=== PATIENT | female | born 1945 | race Caucasian/White ===

== ENCOUNTER 2022-11-06 17:53 | Emergency (ER) | payer MEDICARE, SELFPAY ==
[2022-11-06] VITALS (24 sets, daily range): BP systolic 92–164; BP diastolic 48–111; PULSE 64–178; RESP 13–33; TEMP 36.8; O2SAT 88–100; BMI 38.4
--- NOTE | 2022-11-06 18:44 | ECG_ITS ---
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
--- NOTE | 2022-11-06 19:27 | SUR.HOLD ---
patient tolerated, without complaint
[2022-11-06 19:40] LABS: Bilirubin Urine NEGATIVE (NEGATIVE); Blood Urine NEGATIVE (NEGATIVE); Clarity Urine CLEAR (CLEAR); Color Urine LT. YELLOW (YELLOW); Glucose Urine UA NEGATIVE (NEGATIVE); Ketones Urine NEGATIVE (NEGATIVE); Leukocyte Esterase Urine SMALL (NEGATIVE); Nitrite Urine NEGATIVE (NEGATIVE); Protein Urine NEGATIVE (NEG/TRACE); Urobilinogen Urine 0.2 EU/dL (0.2-1.0); pH Urine 6.5 (5.0-9.0)
[2022-11-06 19:47] LABS: Bacteria Urine SMALL #/HPF (NONE SEEN); Cast Seen? NONE SEEN #/LPF (NONE SEEN); Crystals Seen? None Seen #/HPF (None Seen); Mucus Urine NONE SEEN (NONE SEEN); Squamous Epithelial Cell Urine RARE #/LPF (NONE/RARE); Urine Culture Indicated YES; WBC Urine 20-50 #/HPF (NONE SEEN)
--- NOTE | 2022-11-06 22:02 | XR_ITS ---
[address] [address] Patient Name: NADIA COOLEY MRN: [id number] date: 1945 Sex: F Assigned Patient Location: ER Current Patient Location: ER Accession/Order Number: [id number] Exam Date: 11/06/2022 23:00 Report Date: 11/06/2022 23:34 At the request of: MAYA ANTOINE Procedure: XR chest 1V EXAMINATION: XR chest 1V HISTORY: Weakness COMPARISON: Portable chest 05/27/2022 TECHNIQUE: Portable chest FINDINGS: Study presented is mismarked. The left marker is placed on the right side of the chest. The patient does not have situs inversus. The lung parenchyma is free of consolidation or infiltrate. No pneumothorax or pleural effusion. The cardiac, mediastinal and hilar contours are normal. The visualized osseous structures exhibit no gross abnormality. IMPRESSION: No acute cardiopulmonary abnormality. Electronically authenticated by: MALACHI TONEY Date: 11/06/2022 23:34
--- NOTE | 2022-11-06 22:02 | CT_ITS ---
[address] [address] Patient Name: NADIA COOLEY MRN: [id number] date: 1945 Sex: F Assigned Patient Location: ER Current Patient Location: ER Accession/Order Number: [id number] Exam Date: 11/06/2022 23:00 Report Date: 11/07/2022 00:15 At the request of: MAYA ANTOINE Procedure: CT abdomen pelvis wo con EXAMINATION:CT abdomen pelvis wo con INDICATION: Left lower quadrant pain COMPARISON:12/24/2020 TECHNIQUE:Multiple thin section transaxial slices were acquired through the abdomen and pelvis without intravenous contrast. Coronal and sagittal reconstructed images were reviewed. Oral contrastWas not administered. FINDINGS: LOWER CHEST: The lower chest is unremarkable. LIVER: The liver is unremarkable. GALLBLADDER AND BILIARY SYSTEM: No obvious ductal dilation. There is layering high density material in the posterior gallbladder which may represent layering sludge. SPLEEN: The spleen is unremarkable. PANCREAS: There is atrophy of the pancreas with similar hypodense nodules arising from the pancreas. ADRENAL GLANDS: The adrenal glands are unremarkable. KIDNEYS AND URETERS: There is no hydronephrosis of the kidneys.No obstructing urologic calcifications are present. VASCULATURE: There is atherosclerotic plaque abdominal aorta without aneurysmal dilation. PERITONEUM/RETROPERITONEUM: Peritoneum/retroperitoneum is unremarkable. LYMPH NODES: No suspicious lymphadenopathy. GASTROINTESTINAL TRACT: The bowel is normal in caliber.There is chronic colonic diverticulosis of the colon without acute inflammation.The appendix is visualized and is not inflamed. BLADDER: The urinary bladder is unremarkable. REPRODUCTIVE SYSTEM: There is a large amount of air present in the endometrial canal. BODY WALL: There is a small fat-containing right inguinal hernia. There is a small fat-containing umbilical hernia and a tiny fat-containing supraumbilical hernia in the upper anterior abdomen. BONES: Degenerative changes are present in the thoracic and lumbosacral spine. Internal fixation hardware is present in the left proximal femur. IMPRESSION: 1. No definitive acute inflammatory process or obstructive uropathy. 2. There is a large amount of air in the endometrial canal. This is of indeterminate etiology. 3. Similar chronic findings in the abdomen and pelvis as described above. Electronically authenticated by: JOSIANE CONTRERAS Date: 11/07/2022 00:15
--- NOTE | 2022-11-06 22:04 | ED_ITS ---
HPI - Weakness General Chief complaint: Weakness Stated complaint: fatigued Time Seen by Provider: 11/06/22 22:02 Source: family Mode of arrival: Wheelchair Limitations: no limitations History of Present Illness HPI Narrative: patient presents complaining of generalized weakness. Family has noticed her slow decline over the past week. No focal problems. complained of ear pain. Not short of breath. MD Complaint: Reports generalized weakness Related Data Allergies Allergy/AdvReac Type Severity Reaction Status Date / Time butorphanol [From Stadol] Allergy Severe Verified 11/06/22 18:21 Review of Systems ROS Status of ROS 10 or more systems reviewed and unremarkable except as noted in history and below Exam Constitutional Vital Signs - 24 hr 11/06/22 18:22 11/06/22 18:44 11/06/22 18:45 Temperature 98.2 F Pulse Rate 67 73 Pulse Rate [Monitor] 99 H Respiratory Rate 16 21 33 H Blood Pressure 135/97 H Blood Pressure [Left Arm] 110/69 Pulse Oximetry 93 L 11/06/22 18:45 11/06/22 18:45 11/06/22 19:00 Temperature Pulse Rate 70 72 75 Pulse Rate [Monitor] Respiratory Rate 21 29 H 26 H Blood Pressure 135/97 H 143/82 H Blood Pressure [Left Arm] Pulse Oximetry 94 L HENMT Common normals: normocephalic and head/scalp atraumatic Eye Common normals: EOMs intact bilaterally Chest Common normals: inspection of chest normal and palpation of chest normal Respiratory Common normals: normal respiratory effort, no use of accessory muscles and clear to auscultation bilaterally Cardio Common normals: regular rhythm, S1 normal heart sound and S2 normal heart sound GI Other: mild tenderness LLQ Back & Pelvis Common normals: no CVA tenderness and thoracic and lumbar spine normal to inspec tion Extremity Common normals: normal to inspection, normal capillary refill and no joint enlargement Neuro Common normals: oriented x3, CN's II-XII intact bilaterally, moves all extremities and no focal motor deficits Psych Appearance: grossly normal Course Vital Signs Vital signs: Vital Signs Temperature 98.2 F 11/06/22 18:22 Pulse Rate 99 H 11/06/22 18:22 Respiratory Rate 16 11/06/22 18:22 Blood Pressure 110/69 11/06/22 18:22 Pulse Oximetry 93 L 11/06/22 18:22 Temperature 98.2 F 11/06/22 18:22 Pulse Rate 75 11/06/22 19:00 Respiratory Rate 26 H 11/06/22 19:00 Blood Pressure 143/82 H 11/06/22 19:00 Pulse Oximetry 94 L 11/06/22 18:45 MDM - Weakness MDM Narrative Medical decision making narrative: patient presents for gen. weakness. no focal finding. Did have mild LLQ tenderness. CT unremarkable except did comment about increase air in the uterus of unclear etiology. UA with evidence of UTI. patient treated with Rocephin IM and prescribed Bactrim Ds. patient advised to follow up with her family doctor for recheck. May need referral to gynecology per air endometrial cavity. patient and family aware of the CT findings Lab Data Labs: Lab Results 11/06/22 11/06/22 Range/Units 19:15 22:17 WBC 6.1 (4.0-11.0) 10^3/uL RBC 4.14 L (4.20-5.40) 10^6/uL Hgb 12.6 (12.0-16.0) g/dL Hct 37.3 (36.0-48.0) % MCV 90.1 (81.0-99.0) fL MCH 30.4 (26.7-34.0) pg MCHC 33.8 (29.9-35.2) g/dL RDW 13.9 (11.0-15.0) % Plt Count 234 (150-450) 10^3/uL MPV 9.2 L (9.5-13.5) fL Neut % (Auto) 55.4 (43.0-75.0) % Lymph % (Auto) 34.6 (20.5-60.0) % [place] % (Auto) 7.7 (1.7-12.0) % Eos % (Auto) 1.6 (0.9-7.0) % Baso % (Auto) 0.5 (0.2-2.0) % Neut # (Auto) 3.4 (1.4-6.5) 10^3/uL Lymph # (Auto) 2.1 (1.2-3.8) 10^3/uL [place] # (Auto) 0.5 (0.3-0.8) 10^3/uL Eos # (Auto) 0.1 (0.0-0.7) 10^3/uL Baso # (Auto) 0.0 (0.0-0.1) 10^3/uL Sodium 140 (136-145) mmol/L Potassium 3.0 L (3.5-5.1) mmol/L Chloride 98 (98-107) mmol/L Carbon Dioxide 33.2 H (21.0-32.0) mmol/L Anion Gap 11.8 BUN 19.0 H (7.0-18.0) mg/dL Creatinine 1.55 H (0.55-1.02) mg/dL Est GFR ( Amer) 39 L (>=60) Est GFR (Non-Af Amer) 32 L (>=60) BUN/Creatinine Ratio 12.3 Glucose 123 H (74-106) mg/dL Calcium 9.1 (8.5-10.1) mg/dL Troponin I High Sens 6.7 (4.0-51.3) pg/mL NT-Pro-B Natriuret Pep 367.0 (<=1800.0) pg/mL Urine Color Lt. yellow (YELLOW) Urine Clarity Clear (CLEAR) Urine pH 6.5 (5.0-9.0) Ur Specific [place] 1.010 (1.005-1.025) Urine Protein Negative (NEG/TRACE) mg/dL Urine Glucose (UA) Negative (NEGATIVE) mg/dL Urine Ketones Negative (NEGATIVE) mg/dL Urine Occult Blood Negative (NEGATIVE) Urine Nitrite Negative (NEGATIVE) Urine Bilirubin Negative (NEGATIVE) Urine Urobilinogen 0.2 (0.2-1.0) EU/dL Ur Leukocyte Esterase Small A (NEGATIVE) Urine RBC 2-5 A (0-2) #/HPF Urine WBC 20-50 A (NONE SEEN) #/HPF Ur Squamous Epith Cells Rare (NONE/RARE) #/LPF Ur Culture Indicated? Yes Discharge Plan Discharge Chief Complaint: Weakness Clinical Impression: Urinary tract infection, Generalized weakness Patient Disposition: Home, Self-Care Instructions: Urinary Tract Infection in Older Adults (ED) Stand Alone Forms: Portal Instructions Referrals: HARPAL SINGER [Primary Care Provider] - 1 week Follow Up Appointments: follow up with Dr Singer for recheck 2-3 days
[2022-11-06 22:24] LABS: Basophils Percent Auto 0.5 % (0.2-2.0); Eosinophils Absolute Auto 0.1 10^3/uL (0.0-0.7); Eosinophils Percent Auto 1.6 % (0.9-7.0); Hematocrit 37.3 % (36.0-48.0); Hemoglobin 12.6 g/dL (12.0-16.0); Immature Granulocytes Abs Auto 0.01 10^3/uL (0.00-0.03); Immature Granulocytes Pct Auto 0.2 % (0.0-0.5); Lymphocytes Absolute Auto 2.1 10^3/uL (1.2-3.8); Lymphocytes Percent Auto 34.6 % (20.5-60.0); Mean Corpuscular HGB Conc 33.8 g/dL (29.9-35.2); Mean Corpuscular Hemoglobin 30.4 pg (26.7-34.0); Mean Corpuscular Volume 90.1 fL (81.0-99.0); Mean Platelet Volume 9.2 fL (9.5-13.5); Monocytes Absolute Auto 0.5 10^3/uL (0.3-0.8); Monocytes Percent Auto 7.7 % (1.7-12.0); Neutrophils Absolute Auto 3.4 10^3/uL (1.4-6.5); Neutrophils Percent Auto 55.4 % (43.0-75.0); Platelet Count 234 10^3/uL (150-450); Red Blood Count 4.14 10^6/uL (4.20-5.40); Red Cell Distribution Width 13.9 % (11.0-15.0); White Blood Count 6.1 10^3/uL (4.0-11.0)
[2022-11-06 23:05] LABS: Anion Gap 11.8; BUN Creatinine Ratio 12.3; Calcium 9.1 mg/dL (8.5-10.1); Carbon Dioxide 33.2 mmol/L (21.0-32.0); Chloride 98 mmol/L (98-107); Estimated GFR (African America 39 (>=60); Estimated GFR (Non-African Ame 32 (>=60); Glucose 123 mg/dL (74-106); Sodium 140 mmol/L (136-145); Troponin I High Sensitivity 6.7 pg/mL (4.0-51.3)
[2022-11-07] VITALS: BP 121/49; PULSE 83; RESP 18
[2022-11-07 00:32] VITALS: BP 128/100; PULSE 67; RESP 14; O2SAT 97
[2022-11-07] MEDS: CEFTRIAXONE 1,000 MG, LIDOCAINE HCL/PF 2.1 ML IM (01:05)
== END 2022-11-07 01:34 | disposition home or self-care (01) ==
PROVIDERS: Emergency Medicine; Emergency Provider Internal Medicine; PCP Family Medicine
DX: N39.0 Urinary tract infection, site not specified (principal); R53.1 Weakness
CPT/HCPCS: 36415; 71045; 74176; 80048; 81001; 83880; 84484; 85025; 87086; 87150; 87186; 93005; 96372; 99285

== ENCOUNTER 2023-03-14 13:42 | Emergency (ER) | payer MEDICARE, SELFPAY ==
[2023-03-14] VITALS (18 sets, daily range): BP systolic 125–132; BP diastolic 88–92; PULSE 75–91; RESP 15–30; TEMP 36.6–36.8; O2SAT 93–98; BMI 36.7
--- NOTE | 2023-03-14 14:06 | ECG_ITS ---
[facility] Test Date: 2023-03-14 Pat Name: NADIA COOLEY Department: Room: - Gender: Female [employer] Tester: : 1945 Requested By: [id number] Order Number: [id number] Reading MD: Measurements Intervals [place] Rate: 79 P: 35 WI: 150 QRS: -45 QRSD: 104 T: 26 QT: 372 QTc: 406 Interpretive Statements 1100 Sinus rhythm 1470 with occasional supraventricular premature complexes 3113 Cannot rule out anterior myocardial infarction, probably old 7200 Abnormal left axis deviation 9150 abnormal ECG No previous ECG available for comparison
--- NOTE | 2023-03-14 14:09 | XR_ITS ---
The [address] [address] Patient Name: NADIA COOLEY MRN: [id number] date: 1945 Sex: F Assigned Patient Location: ER Current Patient Location: ER Accession/Order Number: [id number] Exam Date: 03/14/2023 15:15 Report Date: 03/14/2023 15:35 At the request of: SHITAL DENISE Procedure: XR chest 1V EXAMINATION: XR chest 1V 03/14/2023 12:34 PM PDT HISTORY: weak TECHNIQUE: Single frontal view of the chest acquired. COMPARISONS: Chest x-ray 11/06/2022. FINDINGS: Lines/tubes/other: None. Heart and mediastinum: Stable. Bones: No acute osseous abnormality. Lungs: Bibasilar streaky opacification, similar likely representing atelectasis and/or scarring. No pulmonary edema. No new or worsening pulmonary opacity. Pleura: There is no significant pleural effusion or pneumothorax. Other: None. XR/XR chest 1V IMPRESSION: No acute cardiopulmonary abnormality. Electronically authenticated by: DHAVAL PHILIPPE Date: 03/14/2023 15:35
--- NOTE | 2023-03-14 14:11 | ED_ITS ---
HPI - General Adult General Chief complaint: Weakness Stated complaint: GENERAL WEAKNESS Time Seen by Provider: 03/14/23 14:05 Source: patient and family Mode of arrival: Wheelchair Limitations: physical limitation History of Present Illness HPI narrative: Patient is a 69-year-old female who is presenting to the Emergency Room with chief complaint of generalized weakness. Patient does have a history of Parkinson's. Patient does have chronic neck pain. Patient is having acute on chronic generalized weakness. Patient was a home with her . Patient uses a walker to move around at home. Patient's been having 5 days of worsening pain to her neck and upper shoulders. This is acute on chronic pain as well. Patient has no fever or chills. Patient's been having generalized weakness going on for weeks. Patient takes pain medication daily at home for her chronic neck and shoulder pain. Patient was on a lower dose of Nellis at home, patient's has 7.5 mg Nellis at home that he's been giving the patient half of since the other dose pain medication is not helping with her neck and shoulder pain. Patient has no constipation issues. Patient denies any urinary frequency, urgency or burning. Patient has no headache, patient does have chest pain or shortness of breath. Patient had a recent falls. When patient's had urinary tract, she has been weak in the past. Patient diarrhea, no rash, no other acute complaints. . All systems are negative except as noted/marked. All systems reviewed and otherwise negative. . Nurses note and vital signs reviewed and patient is not hypoxic. General: The patient appears well and in no apparent distress. Patient is resting comfortably on cart. Patient is not toxic, lethargic, or listless Skin: Warm, dry, no pallor noted. There is no rash noted. No petechiae, purpura. Head: Normocephalic, atraumatic; Patient has no midline cervical tenderness to palpation; patient has mild to moderate tenderness to palpation to paracervical soft tissue. No signs of torticollis, no meningeal signs or symptoms. No nuchal rigidity. Patient has multiple tender points, reproducible mild to moderate tenderness to palpation to the upper trapezius muscles bilateral. No rash, no signs of cellulitis or abscess. Eye: Normal conjunctiva, no drainage, EOMI. PERRL Ears, Nose, Mouth, and Throat: oral mucosa is moist. Nares patent. Mouth without vesicles. Cardiovascular: Regular Rate and Rhythm, no murmur, gallop, rub Respiratory: Patient is in no distress, no accessory muscle use, lungs are clear to auscultation, no wheezing, rales or rhonchi Back: non-tender, no CVA tenderness bilaterally to percussion. No CT LS midline pain GI: soft, no tenderness to palpation, no masses appreciated. No rebound, guarding, or rigidity noted. No flank pain bilateral, No distention Musculoskeletal: Patient has full range of motion of all of the extremities, no motor, sensory, or focal neurological deficits Neurological: A&O x3, normal speech, Generalized shaking/, tremors, no history of Parkinson's. Psychiatric: Cooperative Related Data Previous Rx's Medication Instructions Recorded cephalexin 500 mg capsule 500 mg PO Q12H 7 days #14 caps 03/14/23 Allergies Allergy/AdvReac Type Severity Reaction Status Date / Time butorphanol [From Stadol] Allergy Severe Verified 03/14/23 13:59 PFSH PFSH Social History Smoking status: Former smoker Exam Constitutional Vital Signs, click to edit/add: Last Vital Signs Temp 98.3 F 03/14/23 13:56 Pulse 81 03/14/23 15:20 Resp 22 03/14/23 15:20 BP 132/92 H 03/14/23 13:56 Pulse Ox 93 L 03/14/23 14:20 O2 Del Method Room Air 03/14/23 13:56 Course Vital Signs Vital signs: Vital Signs Temperature 98.3 F 03/14/23 13:56 Pulse Rate 76 03/14/23 13:56 Respiratory Rate 18 03/14/23 13:56 Blood Pressure 132/92 H 03/14/23 13:56 Pulse Oximetry 95 03/14/23 13:56 Oxygen Delivery Method Room Air 03/14/23 13:56 Temperature 98.3 F 03/14/23 13:56 Pulse Rate 81 03/14/23 15:20 Respiratory Rate 22 03/14/23 15:20 Blood Pressure 132/92 H 03/14/23 13:56 Pulse Oximetry 93 L 03/14/23 14:20 Oxygen Delivery Method Room Air 03/14/23 13:56 Medical Decision Making MDM Narrative Medical decision making narrative: It was initially difficult to assess what patient's chief concern was and why she was in the emergency room today with her . Patient has acute on chronic weakness. Patient has acute on chronic neck pain and shoulder pain. Patient is in pain management. Patient has no urinary symptoms. There was initially IV, lab work, x-ray and fluids ordered. However, after spending lengthy amount of time greater than 10-15 minutes at bedside during initial HPI and physical exam, it was determined that we will just check patient's urine and also have hospice social worker Lelia come to the Emergency Room to see and evaluate the patient to see if home health care would help patient home versus being admitted to the hospital for rehab or senior care placement. Patient and agreed with this plan initially. Lelia hospice social worker was done here for approximately 30 minutes in the Emergency Room seen the patient and evaluating. Please see her consultation note. Patient does have evidence of urinary tract infection, patient was given injection of Rocephin.Patient will be sent home with prescription for 7 days of Keflex. Patient was given injection of Toradol and Norflex as well to help with her pain today. Patient feels comfortable going home. We had a 10 minute conversation on speaker phone with patient, , Cassandra TAVAREZ, and patient's daughter p.jose alberto. who is one of her caregivers at home. We went through the entire process and discussions during HPI, lab tests that were ordered, social welfare research worker recommendations, discuss home health care, what medications were given in the Emergency Room and what she is going home with head discharge. Patient has a history of being placed on Bactrim to help with urinary tract infection in the past but had affected her kidneys it took 6 weeks to improve. I assured patient, and daughter were not using Bactrim today. Patient continue increase fluids at home, continue with pain regimen at home and will call and follow-up with pain management if there needs to be any changes. Lab Data Labs: Lab Results 03/14/23 Range/Units 15:00 Urine Color Lt. yellow (YELLOW) Urine Clarity Slightly cloudy A (CLEAR) Urine pH 6.5 (5.0-9.0) Ur Specific [place] 1.015 (1.005-1.025) Urine Protein Negative (NEG/TRACE) mg/dL Urine Glucose (UA) Negative (NEGATIVE) mg/dL Urine Ketones Negative (NEGATIVE) mg/dL Urine Occult Blood Trace-i (NEGATIVE) Urine Nitrite Positive A (NEGATIVE) Urine Bilirubin Negative (NEGATIVE) Urine Urobilinogen 0.2 (0.2-1.0) EU/dL Ur Leukocyte Esterase Small A (NEGATIVE) Urine RBC 0-2 (0-2) #/HPF Urine WBC 10-20 A (NONE SEEN) #/HPF Ur Squamous Epith Cells None seen (NONE/RARE) #/LPF Urine Crystals None seen (None Seen) #/HPF Urine Bacteria Moderate A (NONE SEEN) #/HPF Urine Casts None seen (NONE SEEN) #/LPF Urine Mucus None seen (NONE SEEN) Ur Culture Indicated? Yes Discharge Plan Discharge Chief Complaint: Weakness Clinical Impression: Urinary tract infection, Chronic pain, Generalized weakness Patient Disposition: Home, Self-Care Time of Disposition Decision: 15:55 Condition: Fair Prescriptions / Home Meds: New cephalexin 500 mg capsule 500 mg PO Q12H 7 Days Qty: 14 0RF Instructions: Urinary Tract Infection in Women (ED), Chronic Pain (ED), Weakness (ED), Chronic Neck Pain (DC) Additional Instructions: Diamond From [employer] is helping set up home health care through [facility] to assist at home with using her . Taking her 1st dose of antibiotic tomorrow. Urine culture is pending. Call your pain management physician To see if there is additional therapies that are available to help manage chronic pain at home. Stand Alone Forms: Portal Instructions Referrals: Rosmery Singer MD [Primary Care Provider] - 1 week
[2023-03-14 15:12] LABS: Bilirubin Urine NEGATIVE (NEGATIVE); Blood Urine TRACE-I (NEGATIVE); Color Urine LT. YELLOW (YELLOW); Glucose Urine UA NEGATIVE (NEGATIVE); Ketones Urine NEGATIVE (NEGATIVE); Leukocyte Esterase Urine SMALL (NEGATIVE); Nitrite Urine POSITIVE (NEGATIVE); Protein Urine NEGATIVE (NEG/TRACE); Specific Gravity Urine 1.015 (1.005-1.025); Urobilinogen Urine 0.2 EU/dL (0.2-1.0); pH Urine 6.5 (5.0-9.0)
[2023-03-14 15:13] LABS: Clarity Urine SLIGHTLY CLOUDY (CLEAR)
[2023-03-14 15:18] LABS: Bacteria Urine MODERATE #/HPF (NONE SEEN); Cast Seen? NONE SEEN #/LPF (NONE SEEN); Crystals Seen? None Seen #/HPF (None Seen); Mucus Urine NONE SEEN (NONE SEEN); RBC Urine 0-2 #/HPF (0-2); Squamous Epithelial Cell Urine NONE SEEN #/LPF (NONE/RARE)
[2023-03-14 15:19] LABS: Urine Culture Indicated YES
--- NOTE | 2023-03-14 15:42 | SWNOTE1 ---
SW called to come down and speak with pt and to discuss dc planning. SW met with pt and in room. SW and pt spoke outside of room as nursing was assisting pt in room. Pt' voiced she has not been able to do much at home recently. She usually uses walker, but has not been able to do without his help. She has been sleeping in her chair during the day after she takes her pain meds and he feels that is affecting her neck and her shoulder pain. He voiced she has been to [facility] for rehab several months ago and then she had [facility] coming in and that ended a few weeks ago. He feels it was beneficial and it was helping her when she did it. She does not do exercises at home. SW and went back in room. SW spoke with pt and she expressed that her pain in her neck and shoulders is so bad and it is hard for her to do anything. SW spoke with her about letting HH come back in to do exercises and teach her different stretchers for her neck and shoulders. Pt is agreeable to this. Pt is NOT agreeable to go back to rehab. Pt does go to pain management. Pt's expressed she took it upon herself to increase her pain meds. SW expressed to pt that she should not do that. Pt's stated when she does that it affects her kidneys. Pt voices understanding that she should not increase her pain meds on her own. Pt is agreeable to Home Health. SW to get this set up for her since it is likely she will be dc from the ED. They had [facility] in past. SHERRIE called [facility] and they could not see her until . SW called [facility] and they could be out within the next day or two. SW sent referral to [facility].
[2023-03-14] MEDS: ORPHENADRINE 60 MG/ 2 ML VIAL IM (15:58)
[2023-03-14] MEDS: CEFTRIAXONE 1,000 MG, LIDOCAINE HCL/PF 2.1 ML IM (15:59)
[2023-03-14] MEDS: KETOROLAC TROMETHAMINE 30 MG/ML VIAL IM (16:28)
--- NOTE | 2023-03-14 16:35 | SWNOTE1 ---
Pt is all set with [facility]. SW let doctor know and updated pt and with company.
--- NOTE | 2023-03-19 08:14 | PC.NURSE ---
03/19/23 0814 pt urine c+s reviewed by Dr Moran yesterday nno at this time. Brian Ferreira RN
== END 2023-03-14 16:59 | disposition home or self-care (01) ==
PROVIDERS: Emergency Provider Emergency Medicine; PCP Family Medicine
DX: N39.0 Urinary tract infection, site not specified (principal); G89.29 Other chronic pain; R53.1 Weakness; Z87.891 Personal history of nicotine dependence; G20.A1 Parkinson's disease without dyskinesia, without mention of fluctuations
CPT/HCPCS: 71045; 80053; 81001; 83735; 83880; 84484; 86140; 87086; 87150; 87186; 93005; 96372; 99285

== ENCOUNTER 2023-03-31 13:29 | Emergency (ER) | payer MEDICARE, SELFPAY ==
[2023-03-31] VITALS (9 sets, daily range): BP systolic 147–152; BP diastolic 58–82; PULSE 75–85; RESP 15–23; TEMP 36.8; O2SAT 93–97; BMI 38.0
--- NOTE | 2023-03-31 13:33 | CT_ITS ---
The [address] [address] Patient Name: NADIA COOLEY MRN: [id number] date: 1945 Sex: F Assigned Patient Location: ED.MAIN Current Patient Location: Accession/Order Number: [id number] Exam Date: 03/31/2023 13:55 Report Date: 03/31/2023 14:08 At the request of: LAN ABARCA Procedure: CT head/brain wo con EXAM: CT head/brain wo con HISTORY: Fall COMPARISON: CT head 02/21/2022. TECHNIQUE: Axial noncontrast CT imaging of the head was performed with coronal and sagittal reformats. FINDINGS: Calvarium/skull base: No evidence of acute fracture or destructive lesion. Mastoids and middle ears demonstrate no substantial mucosal disease. Paranasal sinuses: No air fluid levels. Brain: No acute intracranial hemorrhage. No acute large vascular territory infarct. No visible mass. No mass effect. No hydrocephalus. CT/CT head/brain wo con IMPRESSION: No acute intracranial process. Electronically authenticated by: ASYA SON Date: 03/31/2023 14:08
--- NOTE | 2023-03-31 13:33 | XR_ITS ---
The [address] [address] Patient Name: NADIA COOLEY MRN: [id number] date: 1945 Sex: F Assigned Patient Location: ED.MAIN Current Patient Location: ER Accession/Order Number: [id number] Exam Date: 03/31/2023 14:00 Report Date: 03/31/2023 14:41 At the request of: LAN ABARCA Procedure: XR pelvis 1-2V EXAM: XR pelvis 1-2V HISTORY: Fall COMPARISON: None. TECHNIQUE: One view of the pelvis FINDINGS: Antegrade intramedullary yadiel of the left femur is noted. No acute fracture or dislocation. 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 XR/XR pelvis 1-2V IMPRESSION: No acute fracture. Electronically authenticated by: YAYA PLASCENCIA Date: 03/31/2023 14:41
--- NOTE | 2023-03-31 13:33 | XR_ITS ---
The [address] [address] Patient Name: NADIA COOLEY MRN: [id number] date: 1945 Sex: F Assigned Patient Location: ED.MAIN Current Patient Location: ER Accession/Order Number: [id number] Exam Date: 03/31/2023 14:00 Report Date: 03/31/2023 14:23 At the request of: LAN ABARCA Procedure: XR chest 1V EXAM: XR chest 1V HISTORY: Fall COMPARISON: 03/14/2023 TECHNIQUE: Chest X-ray AP, 1 view FINDINGS: Support devices: None. Lungs/pleura: No consolidation, effusion, or pneumothorax. Heart and mediastinum: Normal contours. Bones: No acute displaced fracture. XR/XR chest 1V Impression: No radiographic evidence of acute cardiopulmonary process. Electronically authenticated by: YAYA PLASCENCIA Date: 03/31/2023 14:23
--- NOTE | 2023-03-31 13:33 | CT_ITS ---
[address] [address] Patient Name: NADIA COOLEY MRN: [id number] date: 1945 Sex: F Assigned Patient Location: ER Current Patient Location: Accession/Order Number: [id number] Exam Date: 03/31/2023 13:55 Report Date: 03/31/2023 14:24 At the request of: LAN ABARCA Procedure: CT cervical spine wo con EXAM: CT cervical spine dated 2 trace con HISTORY: Fall. COMPARISON: None. TECHNIQUE: Contiguous transaxial images obtained from skullbase through cervical spine without administration of intravenous contrast. Coronal and sagittal reformations were obtained. Dose reduction: mA and/or kV are were adjusted by automated exposure control software based upon patients height and weight. FINDINGS: There is osteopenia of the cervical spine. There is no prevertebral soft tissue swelling or acute cervical spine fracture. There is multilevel degenerative disc disease of the cervical spine, most pronounced from C4-5 through C7-T1 where it is moderate to severe. There are small posterior disc-osteophyte complexes, most pronounced at C6-7. There is ligamentum flavum calcification at C4-5. There is multilevel and bilateral uncovertebral joint osteoarthritis. The most pronounced from C4-5 through C7-T1. There is multilevel and bilateral facet joint osteoarthritis. There is left C2-C3 and C3-4 facet ankylosis and right C3-4 facet ankylosis. Uncovertebral and facet joint osteoarthritis contribute to neural foraminal narrowing, most pronounced from C4-5 and C6-7 bilaterally, right greater than left. 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 There is carotid artery atherosclerosis. CT/CT cervical spine wo con IMPRESSION: 1. No acute cervical spine fracture. 2. Multilevel degenerative disc disease of the cervical spine that is most pronounced from C4-5 through C7-T1 where it is moderate to severe. There are small posterior disc aspect complexes, most pronounced at C6-7. There is multilevel and bilateral uncovertebral and facet joint osteoarthritis that contribute to neural foraminal narrowing that is most pronounced from C4-5 through C6-7. 3. Bilateral carotid artery atherosclerosis. Electronically authenticated by: CRUZITO CARIAS Date: 03/31/2023 14:24
--- NOTE | 2023-03-31 13:36 | ED.FALL1 ---
HPI - Fall General Chief Complaint: Fall Stated Complaint: FALL Time Seen by Provider: 03/31/23 13:41 Source: patient Mode of arrival: ambulance History of Present Illness HPI Narrative: patient is a 77-year-old female well-known to this emergency department for history of chronic pain who presents to the emergency department by ambulance after a fall at home. She states that she was trying to put her slippers on when she fell backwards after losing her balance. She states she landed on her bottom and back, she has chronic neck and back pain. She reports most of her pain currently in her neck. She arrives flat, in a c-collar. She states she hurts everywhere . She does not take blood thinners. She had no loss of consciousness or emesis. She is not noted to have any lacerations or bleeding. Related Data Previous Rx's Medication Instructions Recorded cephalexin 500 mg capsule 500 mg PO Q12H 7 days #14 caps 03/14/23 Allergies Allergy/AdvReac Type Severity Reaction Status Date / Time butorphanol [From Stadol] Allergy Severe Verified 03/14/23 13:59 Review of Systems ROS Constitutional Denies: fever or chills Cardiovascular Denies: chest pain Respiratory Denies: shortness of breath or cough Gastrointestinal Denies: nausea or vomiting Integumentary/Breast Denies: rash Neurological Denies: headache or dizziness Hematologic/Lymphatic Denies: easy bruising PFSH PFSH Social History Smoking status: Never smoker Exam Narrative Exam Narrative: Gen.: Awake, alert, in no distress Head: Normocephalic, atraumatic; no ecchymosis or lacerations noted of the head or face ENT: Moist mucous membranes; c-collar in place Respiratory: No respiratory distress, lungs clear bilaterally Cardio: Regular rate and rhythm Gastrointestinal: Abdomen is soft, nondistended and nontender to palpation; pelvis is stable and hips nontender Extremities: Moves extremities equally, no injuries noted; patient noted to move her arms and legs without complaints of focal tenderness or pain Back: patient log rolled, no bony point tenderness of the midline T-spine or L-spine, no abrasions or ecchymosis noted of the back. No obvious deformity or step-off Psych: Normal mood and affect Neuro: No focal neuro deficit Skin: Warm, dry, intact Constitutional Vital Signs, click to edit/add: Last Vital Signs Temp 98.2 F 03/31/23 13:32 Pulse 75 03/31/23 17:40 Resp 15 03/31/23 17:40 BP 152/82 H 03/31/23 17:06 Pulse Ox 97 03/31/23 17:40 O2 Del Method Room Air 03/31/23 17:40 Course Vital Signs Vital signs: Vital Signs Temperature 98.2 F 03/31/23 13:32 Pulse Rate 79 03/31/23 13:32 Respiratory Rate 20 03/31/23 13:32 Blood Pressure 147/58 H 03/31/23 13:32 Pulse Oximetry 96 03/31/23 13:32 Oxygen Delivery Method Room Air 03/31/23 13:32 Temperature 98.2 F 03/31/23 13:32 Pulse Rate 75 03/31/23 17:40 Respiratory Rate 15 03/31/23 17:40 Blood Pressure 152/82 H 03/31/23 17:06 Pulse Oximetry 97 03/31/23 17:40 Oxygen Delivery Method Room Air 03/31/23 17:40 MDM - Fall MDM Narrative Medical decision making narrative: patient was kept flat in a c-collar until CTs of the head and C-spine resulted with no evidence of acute process. Patient was significant arthritis in the cervical spine but no acute process noted. She was treated with Norflex and Percocet. X-rays of the chest and pelvis are also unremarkable. patient with no focal extremity injuries noted. after my initial evaluation, patient was sent for imaging and medicated for pain. Her daughter arrived to the emergency department with multiple medical complaints that she expressed to attending physician on his reevaluation. Patient's imaging studies are all unremarkable. Patient's daughter had multiple questions about the patient going home, her chronic urinary tract infection. Additional EKG, lab studies and abdominal x-rays were ordered based on the patient's daughter's complaints. These studies are unremarkable to improved from previous, patient with small leukocytes on her urine specimen and we will wait for culture as the specimen was contaminated. Patient has no other focal medical complaints in the Emergency Room. Patient and daughter were evaluated multiple times by attending physician with multiple conversations had about her treatment plan. Patient was able to ambulate with a walker and will be discharged home to follow-up with PCP. Return to the Emergency Room if symptoms change or worsen. Medical Records Attestation: I reviewed the patient's medical records. Lab Data Attestation: I reviewed the patient's lab results. Labs: Lab Results 03/31/23 03/31/23 03/31/23 Range/Units 13:00 15:30 15:50 WBC 7.8 (4.0-11.0) 10^3/uL RBC 3.97 L (4.20-5.40) 10^6/uL Hgb 11.6 L (12.0-16.0) g/dL Hct 35.4 L (36.0-48.0) % MCV 89.2 (81.0-99.0) fL MCH 29.2 (26.7-34.0) pg MCHC 32.8 (29.9-35.2) g/dL RDW 13.6 (11.0-15.0) % Plt Count 188 (150-450) 10^3/uL MPV 10.3 (9.5-13.5) fL Neut % (Auto) 71.6 (43.0-75.0) % Lymph % (Auto) 18.2 L (20.5-60.0) % [place] % (Auto) 7.1 (1.7-12.0) % Eos % (Auto) 2.3 (0.9-7.0) % Baso % (Auto) 0.5 (0.2-2.0) % Neut # (Auto) 5.6 (1.4-6.5) 10^3/uL Lymph # (Auto) 1.4 (1.2-3.8) 10^3/uL [place] # (Auto) 0.6 (0.3-0.8) 10^3/uL Eos # (Auto) 0.2 (0.0-0.7) 10^3/uL Baso # (Auto) 0.0 (0.0-0.1) 10^3/uL Abs Immat Gran (auto) 0.02 (0.00-0.03) 10^3/uL Imm/Tot Granulo (auto) 0.3 (0.0-0.5) % Sodium 143 (136-145) mmol/L Potassium 3.6 (3.5-5.1) mmol/L Chloride 104 (98-107) mmol/L Carbon Dioxide 33.7 H (21.0-32.0) mmol/L Anion Gap 8.9 BUN 17.0 (7.0-18.0) mg/dL Creatinine 1.32 H (0.55-1.02) mg/dL Est GFR ( Amer) 47 L (>=60) Est GFR (Non-Af Amer) 39 L (>=60) BUN/Creatinine Ratio 12.9 Glucose 127 H (74-106) mg/dL Calcium 9.4 (8.5-10.1) mg/dL Total Bilirubin 0.6 (0.2-1.0) mg/dL AST 19 (15-37) U/L ALT 15 (14-59) U/L Alkaline Phosphatase 74 (46-116) U/L Total Protein 7.0 (6.4-8.2) g/dL Albumin 3.5 (3.4-5.0) g/dL Globulin 3.5 g/dL Albumin/Globulin Ratio 1.0 Urine Color Lt. yellow (YELLOW) Urine Clarity Clear (CLEAR) Urine pH 8.0 (5.0-9.0) Ur Specific [place] 1.010 (1.005-1.025) Urine Protein Negative (NEG/TRACE) mg/dL Urine Glucose (UA) Negative (NEGATIVE) mg/dL Urine Ketones Negative (NEGATIVE) mg/dL Urine Occult Blood Trace-i (NEGATIVE) Urine Nitrite Negative (NEGATIVE) Urine Bilirubin Negative (NEGATIVE) Urine Urobilinogen 0.2 (0.2-1.0) EU/dL Ur Leukocyte Esterase Small A (NEGATIVE) Urine RBC 0-2 (0-2) #/HPF Urine WBC 5-10 A (NONE SEEN) #/HPF Ur Squamous Epith Cells Rare (NONE/RARE) #/LPF Urine Crystals None seen (None Seen) #/HPF Urine Bacteria Moderate A (NONE SEEN) #/HPF Urine Casts None seen (NONE SEEN) #/LPF Urine Mucus None seen (NONE SEEN) Ur Culture Indicated? Yes Imaging Data CT scan - head: Attestation: I have reviewed the pertinent imaging results. Radiologist's impression: Procedure: CT head/brain wo con EXAM: CT head/brain wo con HISTORY: Fall COMPARISON: CT head 02/21/2022. TECHNIQUE: Axial noncontrast CT imaging of the head was performed with coronal and sagittal reformats. FINDINGS: Calvarium/skull base: No evidence of acute fracture or destructive lesion. Mastoids and middle ears demonstrate no substantial mucosal disease. Paranasal sinuses: No air fluid levels. Brain: No acute intracranial hemorrhage. No acute large vascular territory infarct. No visible mass. No mass effect. No hydrocephalus. IMPRESSION: No acute intracranial process. Electronically authenticated by: ASYA SON Date: 03/31/2023 14:08 CT cervical spine: Attestation: I have reviewed the pertinent imaging results. Radiologist's impression: Procedure: CT cervical spine wo con EXAM: CT cervical spine dated 2 trace con HISTORY: Fall. COMPARISON: None. TECHNIQUE: Contiguous transaxial images obtained from skullbase through cervical spine without administration of intravenous contrast. Coronal and sagittal reformations were obtained. Dose reduction: mA and/or kV are were adjusted by automated exposure control software based upon patients height and weight. FINDINGS: There is osteopenia of the cervical spine. There is no prevertebral soft tissue swelling or acute cervical spine fracture. There is multilevel degenerative disc disease of the cervical spine, most pronounced from C4-5 through C7-T1 where it is moderate to severe. There are small posterior disc-osteophyte complexes, most pronounced at C6-7. There is ligamentum flavum calcification at C4-5. There is multilevel and bilateral uncovertebral joint osteoarthritis. The most pronounced from C4-5 through C7-T1. There is multilevel and bilateral facet joint osteoarthritis. There is left C2-C3 and C3-4 facet ankylosis and right C3-4 facet ankylosis. Uncovertebral and facet joint osteoarthritis contribute to neural foraminal narrowing, most pronounced from C4-5 and C6-7 bilaterally, right greater than left. 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 There is carotid artery atherosclerosis. IMPRESSION: 1. No acute cervical spine fracture. 2. Multilevel degenerative disc disease of the cervical spine that is most pronounced from C4-5 through C7-T1 where it is moderate to severe. There are small posterior disc aspect complexes, most pronounced at C6-7. There is multilevel and bilateral uncovertebral and facet joint osteoarthritis that contribute to neural foraminal narrowing that is most pronounced from C4-5 through C6-7. 3. Bilateral carotid artery atherosclerosis. Electronically authenticated by: CRUZITO CARIAS Date: 03/31/2023 14:24 Chest x-ray: Attestation: I have reviewed the pertinent imaging results. Radiologist's impression: Procedure: XR chest 1V EXAM: XR chest 1V HISTORY: Fall COMPARISON: 03/14/2023 TECHNIQUE: Chest X-ray AP, 1 view FINDINGS: Support devices: None. Lungs/pleura: No consolidation, effusion, or pneumothorax. Heart and mediastinum: Normal contours. Bones: No acute displaced fracture. Impression: No radiographic evidence of acute cardiopulmonary process. Electronically authenticated by: YAYA PLASCENCIA Date: 03/31/2023 14:23 XR pelvis: Attestation: I personally reviewed and interpreted this imaging study as follows: My impression: NAD, imaging reviewed by attending physician Discharge Plan Discharge Chief Complaint: Fall Clinical Impression: Acute neck pain, Closed head injury, Fall Patient Disposition: Home, Self-Care Time of Disposition Decision: 17:26 Condition: Good Mode of Transportation: Private Vehicle Prescriptions / Home Meds: No Action cephalexin 500 mg capsule 500 mg PO Q12H 7 Days Qty: 14 0RF Instructions: Fall Prevention for Older Adults (ED), Head Injury (ED), Acute Neck Pain (ED) Stand Alone Forms: Portal Instructions Referrals: Rosmery Singer MD [Primary Care Provider] - 1 week Discharge Date/Time: 03/31/23 17:40
[2023-03-31] MEDS: ORPHENADRINE 60 MG/ 2 ML VIAL IM (13:44)
[2023-03-31] MEDS: OXYCODONE HCL/ACETAMINOPHEN 5MG/325MG 1 TAB PO (14:30)
--- NOTE | 2023-03-31 14:40 | ECG_ITS ---
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
--- NOTE | 2023-03-31 14:40 | XR_ITS ---
The [address] [address] Patient Name: NADIA COOLEY MRN: [id number] date: 1945 Sex: F Assigned Patient Location: ER Current Patient Location: Accession/Order Number: [id number] Exam Date: 03/31/2023 15:40 Report Date: 03/31/2023 16:06 At the request of: DIANA ROSS Procedure: XR abdomen min 2V EXAM: XR abdomen min 2V TECHNIQUE: Supine and upright views of the abdomen. HISTORY: abdominal pain COMPARISON: CT scan 11/23/2022 FINDINGS: No free air. No bowel obstruction. Severe degenerative changes of the lumbar spine. Post surgical changes of the left femur. Dermal calcifications. XR/XR abdomen min 2V IMPRESSION: No acute abdominal pathology. Electronically authenticated by: ROHAN RUSH Date: 03/31/2023 16:06
[2023-03-31 15:53] LABS: Bilirubin Urine NEGATIVE (NEGATIVE); Blood Urine TRACE-I (NEGATIVE); Clarity Urine CLEAR (CLEAR); Color Urine LT. YELLOW (YELLOW); Glucose Urine UA NEGATIVE (NEGATIVE); Ketones Urine NEGATIVE (NEGATIVE); Leukocyte Esterase Urine SMALL (NEGATIVE); Nitrite Urine NEGATIVE (NEGATIVE); Protein Urine NEGATIVE (NEG/TRACE); Urobilinogen Urine 0.2 EU/dL (0.2-1.0)
[2023-03-31 15:54] LABS: Urine Microscopic Indicated YES
[2023-03-31 15:55] LABS: Alanine Aminotransferase 15 U/L (14-59); Albumin Level 3.5 g/dL (3.4-5.0); Alkaline Phosphatase 74 U/L (46-116); Anion Gap 8.9; Aspartate Amino Transferase 19 U/L (15-37); BUN Creatinine Ratio 12.9; Bilirubin Total 0.6 mg/dL (0.2-1.0); Calcium 9.4 mg/dL (8.5-10.1); Carbon Dioxide 33.7 mmol/L (21.0-32.0); Chloride 104 mmol/L (98-107); Estimated GFR (African America 47 (>=60); Estimated GFR (Non-African Ame 39 (>=60); Globulin 3.5 g/dL; Glucose 127 mg/dL (74-106); Potassium 3.6 mmol/L (3.5-5.1); Sodium 143 mmol/L (136-145)
[2023-03-31 15:59] LABS: Bacteria Urine MODERATE #/HPF (NONE SEEN); Cast Seen? NONE SEEN #/LPF (NONE SEEN); Crystals Seen? None Seen #/HPF (None Seen); Mucus Urine NONE SEEN (NONE SEEN); RBC Urine 0-2 #/HPF (0-2); Squamous Epithelial Cell Urine RARE #/LPF (NONE/RARE); Urine Culture Indicated YES
[2023-03-31 16:06] LABS: Basophils Percent Auto 0.5 % (0.2-2.0); Eosinophils Absolute Auto 0.2 10^3/uL (0.0-0.7); Eosinophils Percent Auto 2.3 % (0.9-7.0); Hematocrit 35.4 % (36.0-48.0); Hemoglobin 11.6 g/dL (12.0-16.0); Immature Granulocytes Abs Auto 0.02 10^3/uL (0.00-0.03); Immature Granulocytes Pct Auto 0.3 % (0.0-0.5); Lymphocytes Absolute Auto 1.4 10^3/uL (1.2-3.8); Lymphocytes Percent Auto 18.2 % (20.5-60.0); Mean Corpuscular HGB Conc 32.8 g/dL (29.9-35.2); Mean Corpuscular Hemoglobin 29.2 pg (26.7-34.0); Mean Corpuscular Volume 89.2 fL (81.0-99.0); Mean Platelet Volume 10.3 fL (9.5-13.5); Monocytes Absolute Auto 0.6 10^3/uL (0.3-0.8); Monocytes Percent Auto 7.1 % (1.7-12.0); Neutrophils Absolute Auto 5.6 10^3/uL (1.4-6.5); Neutrophils Percent Auto 71.6 % (43.0-75.0); Red Blood Count 3.97 10^6/uL (4.20-5.40); Red Cell Distribution Width 13.6 % (11.0-15.0); White Blood Count 7.8 10^3/uL (4.0-11.0)
[2023-03-31 16:25] LABS: Platelet Count 188 10^3/uL (150-450)
--- NOTE | 2023-04-03 15:10 | PC.NURSE ---
04/03/23 1500 pt urine reviewed by dr espinal order for bactrim called daughter due to no answer on home or cell, pt daughter educated pt allergy to bacrtim due to kidney damage in past. updated dr espinal order changed to keflex 500 mg po tid times 7 days, called script into [facility] in [place] pt pharmacy. pt daughter updated on wound culture negative result at this time. pt daughter denies any further questions needs or concerns at this time. Brian Ferreira RN
== END 2023-03-31 17:40 | disposition home or self-care (01) ==
PROVIDERS: Emergency Provider Emergency Medicine; PCP Family Medicine
DX: S09.8XXA Other specified injuries of head, initial encounter (principal); M54.2 Cervicalgia; G89.29 Other chronic pain; W19.XXXA Unspecified fall, initial encounter; R82.89 Other abnormal findings on cytological and histological examination of urine
CPT/HCPCS: 36415; 70450; 71045; 72125; 72170; 74019; 80053; 81001; 85025; 87070; 87086; 87150; 87186; 93005; 96372; 99285

== ENCOUNTER 2023-06-09 15:43 | Outpatient (OUT) | payer MEDICARE, SELFPAY ==
--- OUTSIDE RECORDS SUMMARY | 2023-06-09 16:06 | XMS_ITS | CCD ---
Author Name Unknown Address [address] [place] [address] Organization [facility] Care Team Providers Care Perioperative Educator Name Role Phone PHYSICIAN, DEFAULT Unavailable Unavailable PHYSICIAN, DEFAULT Unavailable Unavailable DIO ZAFAR Unavailable Unavailable PHYSICIAN, DEFAULT Unavailable Unavailable PHYSICIAN, DEFAULT Unavailable Unavailable DIO ZAFAR Unavailable Unavailable PHYSICIAN, DEFAULT Unavailable Unavailable PHYSICIAN, DEFAULT Unavailable Unavailable DIO ZAFAR S Unavailable Unavailable PHYSICIAN, DEFAULT Unavailable Unavailable PHYSICIAN, DEFAULT Unavailable Unavailable DIO ZAFAR Unavailable Unavailable GermaniaYaneth hernandez Unavailable Unavailable Primary Care Provider Unavailabl e PROVIDER, UNKNOWN Attending Unavailable PROVIDER, UNKNOWN Admitting Unavailable PEDRO PALOMARES Attending Unavailable FREDDY, DR HARPAL Rodriguez Primary Care Unavailable MEI DAS Attending Unavailable MEI DAS Admitting Unavailable FREDDY, DR HARPAL Rodriguez Primary Care Unavailable GERMANIAYANETH HERNANDEZ Attending Unavailable YANETH SOLO Admitting Unavailable FREDDY, DR HARPAL Rodriguez Primary Care Unavailable JANE CHAIREZ Attending Unavailable JANE CHAIREZ Admitting Unavailable RAÚL, DR SULEMAN Mejia Attending Unavailable RAÚL, DR SULEMAN Mejia Admitting Unavailable EDDI, DR DICK Consulting Unavailable FREDDY, DR HARPAL Rodriguez Primary Care Unavailable EDGARD GOMEZ Consulting Unavailable ANDRADE LEWIS Consulting Unavailable LE PARRA Attending Unavailable LE PARRA Admitting Unavailable FREDDY, DR HARPAL Rodriguez Primary Care Unavailable Linda Mcdaniel Consulting Unavailable LEISA CELAYA Consulting Unavailable JANET BURNS Consulting Unavailable CHRISTOPHER ABARCA Consulting Unavailable LE PARRA Attending Unavailable LE PARRA Admitting Unavailable FREDDY, DR HARPAL Rodriguez Primary Care Unavailable LE PARRA Consulting Unavailable HAWK MUNGUIA Consulting Unavailable DEREK, DR LINDA eMjia Consulting Unavailable FREDDY, DR HARPAL Rodriguez Primary Care Unavailable FREDDY, DR HARPAL Rodriguez Attending Unavailable FREDDY, DR HARPAL Rodriguez Admitting Unavailable FREDDY, DR HARPAL Rodriguez Consulting Unavailable GERMANIA, YANETH Consulting Unavailable DR HARPAL HAYES Primary Care Unavailable GERMANIA, YANETH Attending Unavailable GERMANIA, YANETH Admitting Unavailable PIPPA, MEI Consulting Unavailable PIPPA, MEI Attending Unavailable PIPPA, MEI Admitting Unavailable DR HARPAL HAYES Primary Care Unavailable GERMANIA, YANETH Consulting Unavailable JUANMUSACARA Primary Care Unavailable GERMANIA, YANETH Attending Unavailable GERMANIA, YANETH Admitting Unavailable HARPAL HAYES Primary Care Physician Natalie Lowe Unavailable Unavailable Nadege Abraham Attending Unavailable TOMASZ, Og Admitting Unavailable Nadege Abraham Attending Unavailable TOMASZ, Og Attending Unavailable Kimberly VILLAREAL Attending Unavailstiven TOLBERT, Og Attending Unavailable TOMASZ, Og Attending Unavailable Emma SALINAS Attending Unavailable BRAD Mbanefo Admitting Unavailable Hospitalist Post Disch, Results Reviewer Consult ing Unavailable Falcon, Aba X Consulting Unavailable Tyson COLEMAN Admitting Unavailable Jeff SUTTON Attending Unavailable Falcon, Aba X Consulting Unavailable Falcon, Aba X Consulting Unavailable Harpal Hayes Unavailable Allergies Allergy Classification Reported Allergen(s) Allergy Type Date of Onset Reaction(s) Facility (17 sources) butorphanol; Translations: [Stadol] Drug Allergy 2 ANXIOUS [facility] Repository (14 sources) PT DENIES ANY METAL ALLERGY Propensity to adverse reactions Unknown [facility] Other (6 sources) Butorphanol; Translations: [BUTORPHANOL] Drug Allergy 4 [facility] Repository (10 sources) Stadol *ANALGESICS - OPIOID* Propensity to adverse reactions Unknown [facility] Other (2 sources) Allergies Reconciled Propensity to adverse reactions Unknown [facility] Other Medications Current Medications Medication Drug Class(es) Dates Sig (Normalized) Sig (Original) acetaminophen 500 mg oral tablet (13 sources) Start: 12-08-2022 take 2 tablets by mouth every six hours Tylenol Extra Strength 500 mg oral tablet 1,000 mg = 2 tab(s), Oral, q6hr, Refills(s) 0 Start Date: 12/08/22 Status: Ordered Start: 12-03-2022 acetaminophen 325 mg Tab 650 mg = 2 tab(s), Oral, q6hr, PRN Pain, not to exceed 4000 mg/day, Refills(s) 0 Start Date: 12/03/22 Status: Ordered take 2 capsules by m outh every eight hours Acetaminophen 500 MG 2 capsule as needed Orally every 8 hrs Active acetaminophen 325 mg / HYDROcodone bitartrate 5 mg oral tablet (16 sources) Opioid Agonist Start: 05-09-2023 take 1 tablet by mouth every eight hours as needed HYDROcodone-Acetaminophen 5-325 MG 1 tablet as needed Orally q8h prn for 30 days May, Active Start: 03-07-2023 take 1 tablet by sara th every eight hours as needed HYDROcodone-Acetaminophen 7.5-325 MG 1 tablet as needed Orally q8h prn for 30 days Mar, Active Start: 01-27-2023 take 1 tablet by sara th every six hours HYDROcodone-Acetaminophen 5-325 MG 1 tab let as needed Orally every 6 hrs for 30 days Jan, Active Start: 12-06-2022 take 1 tablet by sara th every eight hours as needed for pain [place] 325 mg-5 mg oral tablet 1 tab(s), Oral, q8hr as needed for pain, Refill(s) 0 Start Date: 12/06/22 Status: Ordered Start: 11-13-2022 [place] 325 mg-5 mg oral tablet 1 tab(s), Oral, q6hr for pain, 15 tab(s), Refill(s) 0 Start Date: 11/13/22 Status: Ordered amoxicillin 500 mg oral tablet (11 sources) Penicillin-class Antibacterial Start: 12-20-2022 take 1 tablet by mouth every eight hours Amoxicillin 500 MG 1 tablet Orally every 8 hrs for 7 days Dec, Active aspirin 81 mg delayed release oral tablet (19 sources) Platelet Aggregation Inhibitor, Nonsteroidal Anti-inflammatory Drug Start: 11-15-2022 take 1 tablet by mouth once daily aspirin 81 mg Oral EC Tab 81 mg = 1 tab(s), Oral, Daily, Refills(s) 0 Start Date: 11/15/22 Status: Ordered atorvastatin 10 mg oral tablet (19 sources) HMG-CoA Reductase Inhibitor Start: 11-11-2022 take 1 tablet by mouth at bedtime atorvastatin 10 mg Tab 10 mg = 1 tab(s), Oral, Bedtime, Refills(s) 0 Start Date: 11/11/22 Status: Ordered carvedilol 6.25 mg oral tablet (19 sources) alpha-Adrenergic Skyler, beta-Adrenergic Skyler Start: 11-11-2022 carvedilol 6.25 mg Tab 6.25 mg = 1 tab(s), Oral, BID, Hold for sbp 110 or less or HR 55 or less, Refills(s) 0 Start Date: 11/11/22 Status: Ordered cefdinir 300 mg oral capsule (1 source) Cephalosporin Antibacterial Start: 12-03-2022 End: 12-07-2022 take 1 capsule by mouth every twelve hours cefdinir 300 mg Cap 300 mg = 1 cap(s), Oral, q12hr, X 4 day(s), # 8 cap(s), Refills(s) 0, Pharmacy: [facility], 152, cm, 12/02/22 9:48:00 EDT, Height/Length Dosing, 87.8, kg, 12/02/22 9:48:00 EDT, Weight Dosing Start Date: 12/03/22 Stop Date: 12/07/22 Status: Ordered cefuroxime 250 mg oral tablet (1 source) Cephalosporin Antibacterial Start: 06-18-2021 take 1 tablet by mouth every twelve hours Cefuroxime Axetil 250 MG 1 tablet Orally every 12 hrs for 5 day(s) Jun, Active cetirizine hydrochloride 10 mg oral tablet (19 sources) Histamine-1 Receptor Antagonist Start: 11-11-2022 take 1 tablet by mouth once daily as needed cetirizine 10 mg Tab 10 mg = 1 tab(s), Oral, Daily, PRN allergies, Refills(s) 0 Start Date: 11/11/22 Status: Ordered cholecalciferol 0.25 mg oral capsule (7 sources) Vitamin D Start: 11-11-2022 cholecalciferol 10,000 intl units oral capsule 250 mcg = 1 cap(s), Oral, MonWedFri, Refills(s) 0 Start Date: 11/11/22 Status: Ordered Vitamin D3 250 M CG (04645 UT) 1 capsule Orally MON, WED, FRI Active ciprofloxacin 500 mg oral tablet (2 sources) Quinolone Antimicrobial Start: 12-01-2022 take 1 tablet by mouth every twelve hours ciprofloxacin 500 mg Tab 500 mg = 1 tab(s), Oral, q12hr, # 10 tab(s), Refills(s) 0, Pharmacy: [facility], 152, cm, 11/10/22 21:21:00 EDT, Height/Length Dosing, 83, kg, 11/10/22 21:21:00 EDT, Weight Dosing Start Date: 12/01/22 Status: Ordered docusate calcium 240 mg oral capsule (14 sources) take 1 capsule by mouth four times weekly as needed Stool Softener 240 MG 1 capsule as needed Orally four times a week as needed for 30 days Active ferrous sulfate 325 mg oral tablet (19 sources) Start: 11-11-2022 ferrous sulfate 325 mg Tab 325 mg = 1 tab(s), Oral, MonWedFri, # 270 tab(s), Refills(s) 0 Start Date: 11/11/22 Status: Ordered take 1 tablet by mouth three dustin es weekly Ferrous Sulfate 325 (65 Fe) MG 1 tablet Orally three times a week Active take 1 tablet by mouth three dustin es weekly Ferrous Sulfate 325 (65 Fe) MG 1 tablet Orally three times a week Active furosemide 40 mg oral tablet (20 sources) Loop Diuretic Start: 11-11-2022 take 1 tablet by mouth once daily furosemide 40 mg Tab 40 mg = 1 tab(s), Oral, Daily, Refills(s) 0 Start Date: 11/11/22 Status: Ordered take 1 tablet by sara th every twelve hours Furosemide 20 MG 1 tablet Orally Twice a day Active Insulin Lispro (2 sources) Insulin Analog Start: 12-03-2022 insulin lispro 0-10 Units, SubCutaneous, QIDACHS, Refills(s) 0 Start Date: 12/03/22 Status: Ordered levothyroxine sodium 0.05 mg oral tablet (19 sources) l-Thyroxine Start: 11-13-2022 take 1 tablet by mouth once daily levothyroxine 50 mcg (0.05 mg) Tab 50 mcg = 1 tab(s), Oral, Daily, Refills(s) 0 Start Date: 11/13/22 Status: Ordered take 1 tablet by mouth once gio y Levothyroxine Sodium 50 MCG TAKE 1 TABLET BY MOUTH DAILY for 90 days Active Magnesium (14 sources) Magnesium 400 MG as directed Orally four times a week Active magnesium oxide 400 mg oral tablet (1 source) Start: 11-12-19 End: 11-19-19 magnesium oxide 400 mg Tab 400 mg = 1 tab(s), Oral, TueThSaSu, Refills(s) 0 Start Date: 11/11/22 Stop Date: 11/18/22 Status: Ordered metFORMIN hydrochloride 500 mg oral tablet (19 sources) Biguanide Start: 01-30-20 take 1 tablet by mouth twice daily metformin 500 mg oral tablet 500 mg = 1 tab(s), Oral, BID, Refills(s) 0 Start Date: 01/30/16 Status: Ordered nitroglycerin 0.4 mg sublingual tablet (5 sources) Nitrate Vasodilator Start: 11-12-19 nitroglycerin 0.4 mg sublingual Tab 0.4 mg = 1 tab(s), SubLingual, q5min, PRN for chest pain, # 100 tab(s), Refills(s) 0 Start Date: 11/11/22 Status: Ordered nystatin 100 unt/mg topical powder (12 sources) Polyene Antifungal Start: 11-12-19 nystatin Top 100,000 units/g Pwdr 1 chantal, Topical, BID, 30 gram, Refill(s) 0 Start Date: 11/11/22 Status: Ordered Nystatin 104735 UNIT/GM 1 application Externally Twice a day for 10 days Active polyethylene glycol 3350 26619 mg powder for oral solution (5 sources) Osmotic Laxative Start: 11-13-2022 take 17 g by mouth once daily as needed for constipation polyethylene glycol 3350 17 gram packet 17 gm, Oral, Daily, PRN Constipation, Refills(s) 0 Start Date: 11/13/22 Status: Ordered pregabalin 150 mg oral capsule (19 sources) Start: 03-14-2023 take 1 capsule by mouth twice daily Pregabalin 150 mg TAKE ONE CAPSULE BY MOUTH TWICE A DAY for Mar, Active Start: 08-10-2022 take 1 capsule by [place] twice daily Pregabalin 150 mg TAKE 1 (ONE) CAPSULE BY MOUTH TWO TIMES DAILY for Aug, Active take 1 capsule by [place] every twelve hours Lyrica 150 MG 1 capsule Orally BID for 30 days G89.29 Chronic pain Active rOPINIRole 4 mg oral tablet (19 sources) Nonergot Dopamine Agonist Start: 11-11-2022 ropinirole 4 mg oral tablet 4 mg = 1 tab(s), Oral, Supper, Refills(s) 0 Start Date: 11/11/22 Status: Ordered traZODone hydrochloride 150 mg oral tablet (19 sources) Serotonin Reuptake Inhibitor Start: 11-11-2022 take 1 tablet by mouth once daily at bedtime traZODONE 150 mg Tab 150 mg = 1 tab(s), Oral, Once a day (at bedtime), # 30 tab(s), Refills(s) 0 Start Date: 11/11/22 Status: Ordered Vitamin C 1000 MG (1 source) take 1 tablet by mouth once daily Vitamin C 1000 MG 1 tablet Orally Once a day Active Vitamin D3 250 MCG (27721 UT) (9 sources) Vitamin D3 250 MCG (53849 UT) 1 capsule Orally MON, TUE, TUE Active Vitamin D3 Maximum Strength 125 MCG (5000 UT) (4 sources) take 1 tablet by mouth three times weekly Vitamin D3 Maximum Strength 125 MCG (5000 UT) 1 tab(s) Orally THREE TIMES A WEEK Active take 2 tablets by mo uth three times weekly Vitamin D3 Maximum Strength 125 MCG (500 0 UT) 2 TABLETS Orally THREE TIMES A WEEK Active Completed/Discontinued Medications Medication Drug Class(es) Dates Sig (Normalized) Sig (Original) Dexamethasone (13 sources) Corticosteroid Start: 09-17-2015 DEXAMETHASONE Sep, 2 mL methylPREDNISolone (13 sources) Corticosteroid Start: 02-02-2018 Depo-Medrol 40 mg Jan, 1 mL potassium chloride 10 meq oral tablet (19 sources) Start: 11-11-2022 take 1 tablet by mouth twice daily Potassium Chloride (Eqv-K-Tab) 10 mEq oral tablet, extended release 10 mEq = 1 tab(s), Oral, BID, Refills(s) 0 Start Date: 11/11/22 Status: Ordered take 1 tablet by sara th every twelve hours Potassium Chloride ER 10 MEQ 1 tablet wi th food Orally Twice a day for 90 days Active Problems Active Problems Problem Classification Problem Date Documented Date Episodic/Chronic Abdominal pain (20 sources) Abdominal pain; Translations: [Unspecified abdominal pain] Onset: 7 Episodic Acute and unspecified renal failure (1 source) Acute kidney failure, unspecified; Translations: [N17.9] Onset: 3 Episodic Administrative/social admission (14 sources) Worried well; Translations: [Person with feared health complaint in whom no diagnosis is made] Episodic Anxiety disorders (1 source) Anxiety disorder, unspecified; Translations: [ANXIETY DISORDER UNSPECIFIED] Onset: 2 Chronic Blindness and vision defects (2 sources) Visual hallucinations; Translations: [Visual hallucinations] Episodic Chronic kidney disease (20 sources) Chronic kidney disease stage 3; Translations: [Chronic kidney disease, stage 3 (moderate)] Onset: 2 Chronic Chronic kidney disease (11 sources) Chronic kidney disease; Translations: [Chronic kidney disease, stage III (moderate)] Onset: 2 Resolved: 2 Chronic obstructive pulmonary disease and bronchiectasis (2 sources) Bronchitis; Translations: [Bronchitis, not specified as acute or chronic] Episodic Congestive heart failure; nonhypertensive (3 sources) Heart failure, unspecified; Translations: [Chronic diastolic heart failure] Onset: 2 Chronic Coronary atherosclerosis and other heart disease (9 sources) Atherosclerotic heart disease of knik coronary artery without angina pectoris; Translations: [Coronary atherosclerosis] Onset: 2 Chronic Deficiency and other anemia (14 sources) Anemia of renal disease; Translations: [Anemia in chronic kidney disease] Chronic Deficiency and other anemia (4 sources) Anemia in chronic kidney disease; Translations: [ANEMIA IN CHRONIC KIDNEY DISEASE] Onset: 2 Resolved: 2 Chronic Deficiency and other anemia (2 sources) Iron deficiency anemia; Translations: [Iron deficiency anemia, unspecified] Episodic Delirium, dementia, and amnestic and other cognitive disorders (7 sources) Dementia; Translations: [Unspecified dementia without behavioral disturbance] Onset: 3 Chronic Diabetes mellitus with complications (20 sources) Disorder of kidney due to diabetes mellitus; Translations: [Type 2 diabetes mellitus with diabetic chronic kidney disease] Onset: 2 Resolved: 2 Chronic Diabetes mellitus without complication (3 sources) Type 2 diabetes mellitus without complications; Translations: [Type 2 diabetes mellitus without complication] Onset: 2 Chronic Disorders of lipid metabolism (3 sources) Mixed hyperlipidemia; Translations: [Hyperlipidemia] 07-07-2023 Chronic E Codes: Fall (4 sources) Fall; Translations: [Unspecified fall, initial encounter] Onset: 2 Episodic Essential hypertension (13 sources) Essential hypertension; Translations: [Essential (primary) hypertension] Chronic Genitourinary symptoms and ill-defined conditions (15 sources) Female stress incontinence; Translations: [Female stress incontinence] Onset: 3 Chronic Genitourinary symptoms and ill-defined conditions (3 sources) Other microscopic hematuria; Translations: [Dysuria] Onset: 2 Episodic Gout and other crystal arthropathies (20 sources) Gout; Translations: [Gout, unspecified] Onset: 2 Resolved: 2 Chronic Heart valve disorders (4 sources) Nonrheumatic tricuspid (valve) insufficiency; Translations: [NONRHEUMATIC TRICUSPID VALVE INSUFF] Onset: 2 Chronic Hypertension with complications and secondary hypertension (20 sources) Chronic kidney disease due to hypertension; Translations: [Hypertensive chronic kidney disease with stage 1 through stage 4 chronic kidney disease, or unspecified chronic kidney disease] Onset: 2 Resolved: 2 Chronic Malaise and fatigue (6 sources) Weakness; Translations: [Asthenia] Onset: 2 Episodic Menopausal disorders (1 source) Hormone replacement therapy; Translations: [HORMONE REPLACEMENT THERAPY] Onset: 2 Episodic Miscellaneous mental health disorders (2 sources) Primary insomnia; Translations: [Primary insomnia] Chronic Mood disorders (1 source) Major depressive disorder, single episode, unspecified; Translations: [PORTILLO DEPRESS D/O SINGLE EPIS UNS] Onset: 2 Chronic Mood disorders (1 source) Mood disorders; Translations: [DEPRESSION UNSPECIFIED] Onset: 2 Mycoses (4 sources) Candidiasis; Translations: [Candidiasis, unspecified] Episodic Nonspecific chest pain (4 sources) Chest pain, unspecified; Translations: [CHEST PAIN UNSPECIFIED] Onset: 2 Episodic Nutritional deficiencies (6 sources) Vitamin D deficiency; Translations: [Vitamin D deficiency, unspecified] Onset: 3 Chronic Osteoarthritis (20 sources) Osteoarthritis of knee; Translations: [Unilateral primary osteoarthritis, left knee] 01-31-2016 Chronic Other aftercare (14 sources) Patient encounter status; Translations: [Aftercare following joint replacement surgery] Chronic Other aftercare (1 source) Other continuous churn buttermaker (current) drug therapy; Translations: [OTH LONG-TERM CURRENT DRUG THERAPY] Onset: 2 Episodic Other aftercare (1 source) skilled nursing (current) use of oral hypoglycemic drugs; Translations: [SOLAR LAB TECHNICIAN USE ORAL HYPOGLYCEMIC DX] Onset: 2 Episodic Other aftercare (1 source) skilled nursing (current) use of insulin; Translations: [SOLAR LAB TECHNICIAN CURRENT USE OF INSULIN] Onset: 2 Episodic Other aftercare (2 sources) Long-term current use of drug therapy; Translations: [Other group home (current) drug therapy] Episodic Other and ill-defined cerebrovascular disease (1 source) Cerebrovascular disease; Translations: [Cerebrovascular disease, unspecified] Onset: 3 Chronic Other and ill-defined cerebrovascular disease (5 sources) Small vessel cerebrovascular disease 11-15-2022 Chronic Other circulatory disease (2 sources) Cardiovascular symptoms; Translations: [Other specified symptoms and signs involving the circulatory and respiratory systems] Episodic Other connective tissue disease (13 sources) Artificial knee joint present; Translations: [Presence of unspecified artificial knee joint] Chronic Other connective tissue disease (1 source) Presence of right artificial knee joint; Translations: [PRESENCE RT ARTIFICIAL KNEE JOINT] Onset: 2 Chronic Other connective tissue disease (1 source) Presence of unspecified artificial knee joint; Translations: [Status post knee replacement] Chronic Other connective tissue disease (14 sources) Fibromyalgia; Translations: [Fibromyalgia] Episodic Other connective tissue disease (2 sources) Fibromyalgia; Translations: [FIBROMYALGIA] Onset: 2 Episodic Other connective tissue disease (6 sources) Recurrent falls ; Translations: [Repeated falls] Onset: 3 Episodic Other connective tissue disease (5 sources) Fibromyositis 11-15-2022 Episodic Other connective tissue disease (2 sources) Spasm; Translations: [Other muscle spasm] Episodic Other connective tissue disease (2 sources) Pain in right foot; Translations: [Pain in right foot] Episodic Other diseases of kidney and ureters (14 sources) Secondary hyperparathyroidism; Translations: [Secondary hyperparathyroidism of renal origin] Chronic Other diseases of kidney and ureters (4 sources) Secondary hyperparathyroidism of renal origin; Translations: [SEC HYPERPARATHYROIDISM RENAL ORIGN] Onset: 2 Resolved: 2 Chronic Other gastrointestinal disorders (13 sources) Abnormal feces; Translations: [Other fecal abnormalities] Episodic Other gastrointestinal disorders (13 sources) Flatulence, eructation and gas pain; Translations: [Abdominal distension (gaseous)] Episodic Other gastrointestinal disorders (1 source) Other fecal abnormalities; Translations: [Positive colorectal cancer screening using Cologuard test] Episodic Other gastrointestinal disorders (2 sources) Constipation; Translations: [Constipation, unspecified] Episodic Other hereditary and degenerative nervous system conditions (1 source) Other specified forms of tremor; Translations: [OTHER SPECIFIED FORMS OF TREMOR] Onset: 2 Chronic Other hereditary and degenerative nervous system conditions (2 sources) Essential tremor; Translations: [Essential tremor] Chronic Other infections; including parasitic (2 sources) H/O: infectious disease; Translations: [Personal history of other infectious and parasitic diseases] Episodic Other injuries and conditions due to external causes (2 sources) History of fall; Translations: [History of falling] Episodic Other nervous system disorders (20 sources) Chronic pain; Translations: [Other chronic pain] Chronic Other nervous system disorders (14 sources) Difficulty walking; Translations: [Difficulty in walking, not elsewhere classified] Chronic Other nervous system disorders (2 sources) Other chronic pain; Translations: [OTHER CHRONIC PAIN] Onset: 2 Chronic Other nervous system disorders (2 sources) Chronic pain syndrome; Translations: [Chronic pain syndrome] Chronic Other nervous system disorders (2 sources) Tremor; Translations: [Tremor, unspecified] Episodic Other non-traumatic joint disorders (20 sources) Knee pain; Translations: [Pain in right knee] Episodic Other non-traumatic joint disorders (16 sources) Arthralgia of the pelvic region and thigh; Translations: [Pain in left hip] Episodic Other non-traumatic joint disorders (2 sources) Shoulder pain; Translations: [Pain in left shoulder] Episodic Other non-traumatic joint disorders (2 sources) Pain of left wrist; Translations: [Pain in left wrist] Onset: 3 Episodic Other non-traumatic joint disorders (7 sources) Pain in wrist; Translations: [Pain in left wrist] 11-15-2022 Episodic Other non-traumatic joint disorders (12 sources) Pain in left shoulder; Translations: [Left shoulder pain] Episodic Other non-traumatic joint disorders (2 sources) Arthropathy; Translations: [Joint disorder, unspecified] Episodic Other non-traumatic joint disorders (2 sources) Arthralgia of the ankle and/or foot; Translations: [Pain in right ankle and joints of right foot] Episodic Other nutritional; endocrine; and metabolic disorders (13 sources) Hypomagnesemia; Translations: [Hypomagnesemia] Chronic Other nutritional; endocrine; and metabolic disorders (5 sources) Hypomagnesemia; Translations: [HYPOMAGNESEMIA] Onset: 2 Resolved: 2 Chronic Other nutritional; endocrine; and metabolic disorders (1 source) Obesity, unspecified; Translations: [OBESITY UNSPECIFIED] Onset: 2 Chronic Other nutritional; endocrine; and metabolic disorders (1 source) Body mass index (BMI) 36.0-36.9, adult; Translations: [BODY MASS INDEX BMI 36.0-36.9 ADULT] Onset: 2 Chronic Other nutritional; endocrine; and metabolic disorders (2 sources) Morbid obesity; Translations: [Morbid (severe) obesity due to excess calories] Chronic Other nutritional; endocrine; and metabolic disorders (2 sources) Obesity; Translations: [Obesity, unspecified] Chronic Other nutritional; endocrine; and metabolic disorders (2 sources) Body mass index 40+ - severely obese; Translations: [Body mass index (BMI) 40.0-44.9, adult] Chronic Other nutritional; endocrine; and metabolic disorders (2 sources) Obese class II; Translations: [Body mass index (BMI) 38.0-38.9, adult] Chronic Other screening for suspected conditions (not mental disorders or infectious disease) (14 sources) CT of abdomen abnormal; Translations: [Abnormal findings on diagnostic imaging of other abdominal regions, including retroperitoneum] Episodic Other skin disorders (2 sources) Disorder of nail; Translations: [Other nail disorders] Episodic Other upper respiratory infections (2 sources) Chronic sinusitis; Translations: [Chronic sinusitis, unspecified] Chronic Other upper respiratory infections (4 sources) Acute sinusitis; Translations: [Acute sinusitis, unspecified] Episodic Prolapse of female genital organs (2 sources) Herniation of rectum into vagina; Translations: [Rectocele without mention of uterine prolapse] Onset: 7 Chronic Residual codes; unclassified (2 sources) Hypersomnia; Translations: [Hypersomnia, unspecified] Chronic Residual codes; unclassified (13 sources) Family history of cancer of colon; Translations: [Family history of malignant neoplasm of digestive organs] Episodic Residual codes; unclassified (5 sources) Chronic pain 01-31-2016 Episodic Residual codes; unclassified (2 sources) Localized edema; Translations: [Localized edema] Episodic Skin and subcutaneous tissue infections (4 sources) Cellulitis of buttock; Translations: [Cellulitis of buttock] Episodic Spondylosis; intervertebral disc disorders; other back problems (20 sources) Degeneration of cervical intervertebral disc; Translations: [Other cervical disc degeneration, unspecified cervical region] Chronic Spondylosis; intervertebral disc disorders; other back problems (20 sources) Low back pain; Translations: [Low back pain] Onset: 2 Episodic Thyroid disorders (9 sources) Hypothyroidism, unspecified; Translations: [Hypothyroidism] Onset: 2 01-31-2016 Chronic Unclassified (4 sources) CHRN KIDNEY DISEASE STG 3 UNSP; Translations: [CHRN KIDNEY DISEASE STG 3 UNSP] Onset: 2 Urinary tract infections (9 sources) Urinary tract infection, site not specified; Translations: [Urinary tract infectious disease] Onset: 2 Resolved: 2 Episodic Past or Other Problems Problem Classification Problem Date Documented Da te Episodic/Chronic Menopausal disorders (2 sources) Atrophic vaginitis; Translations: [Postmenopausal atrophic vaginitis] Onset: 7 Resolved: 6 Chronic Other connective tissue disease (1 source) Pain in right foot; Translations: [PAIN IN RIGHT FOOT] Onset: 2 Episodic Other connective tissue disease (1 source) Pain in right leg; Translations: [PAIN IN RIGHT LEG] Onset: 2 Episodic Other connective tissue disease (1 source) Pain in left leg; Translations: [PAIN IN LEFT LEG] Onset: 2 Episodic Other female genital disorders (2 sources) Atrophic vulva; Translations: [Atrophy of vulva] Onset: 7 Episodic Other gastrointestinal disorders (1 source) Swollen abdomen; Translations: [Abdominal distension (gaseous)] Episodic Other injuries and conditions due to external causes (1 source) Other specified injuries of head, initial encounter; Translations: [OTH SPEC INJURIES HEAD INITIAL ENC] Onset: 2 Episodic Other non-traumatic joint disorders (1 source) Pain in left hip; Translations: [PAIN IN LEFT HIP] Onset: 2 Episodic Other non-traumatic joint disorders (4 sources) Pain in right ankle and joints of right foot; Translations: [PAIN IN RIGHT ANKLE] Onset: 2 Episodic Residual codes; unclassified (1 source) Family history of malignant neoplasm of gastrointestinal tract; Translations: [Family history of malignant neoplasm of digestive organs] Episodic Sprains and strains (1 source) Strain of muscle, fascia and tendon of lower back, initial encounter; Translations: [STRAIN MUSC FASC TENDON LW BACK INT] Onset: 2 Episodic Superficial injury; contusion (1 source) Contusion of left hip, initial encounter; Translations: [CONTUSION LEFT HIP INITIAL ENC] Onset: 2 Episodic Unclassified (1 source) CHRN KIDNEY DISEASE STG 3 UNSP; Translations: [CHRN KIDNEY DISEASE STG 3 UNSP] Onset: 2 Results Test Name Value Interpretation Reference Range Facility C Urineon 12-19-2022 Bacteria identified Cx Nom (U) Microbiology PROCEDURE: Urine Culture [R1] SOURCE: U CleanCatch BODY SITE: COLLECTED DATE/TIME: 12/16/2022 07:32 EDT RECEIVED DATE/TIME: 12/16/2022 08:37 EDT START DATE/TIME: 12/16/2022 08:37 EDT FREE TEXT SOURCE: TOMASZ BRIGGS, Og TOLBERT MD, Og FINAL REPORTS Final Report [] Verified Date/Time: 12/19/2022 11:14 EDT >100,000 cfu/ml Enterococcus faecalis VRE confirmed VRE. 5,000 cfu/ml Mixed skin contaminants Faxed and called to U 12/19/2022 11:13 CSS SUSCEPTIBILITY RESULTS LEGEND: S=Susceptible, N/R=Not Reported, Blank=Data not available, or drug not advisable or tested, I=Intermediate, ESBL=Extended spectrum beta-lactamase, R=Resistant, TFG=Thymidine-depend ent strain, JOHNSON=Beta-lactamase positive, YESENIA=mcg/m;(mg/L), S*=Predicted susceptible interp, R*=Predicted resistant interp EntfaeVRE Antibiotic YESENIA Dilutn YESENIA Interp Ampicillin <=2 S Ciprofloxacin >2 R Daptomycin <=1 S Levofloxacin >4 R Linezolid <=2 S Nitrofurantoin <=32 S Penicillin 2 S Rifampin <=1 S Tetracycline >8 R Vancomycin >16 R Performing Locations R1: This test was performed at: [facility], [address] [place] [address], [phone] , [facility] Comment on above: Performed By: #### 1 [id number] ####[facility] [address] [place] [address] CHEMISTRYOrdered By: Lab ROP User on 12-17-2022 Glucose [Mass/Vol] 119 mg/dL High 55 - 99 mg/dL [facility] POC Subsection Comment on above: Result Comment: Yvonne jl Meter POC Device SN [id number] Invalid Interpretation Code [facility] POC Subsection POC User ID [id number] Invalid Interpretation Code [facility] POC Subsection POC Username EJ SIMS Invalid Interpretation Code [facility] POC Subsection Capillary Glucose POCon 12-04 Glucose [Mass/Vol] 119 mg/dL High 55-99 [facility] Comment on above: Result Comment: Yvonne parikh Meter Performed By: #### 2 [id number] #### [facility] [address] [place] [address] PTH Intacton 12-17-2022 Parathyrin.intact [Mass/Vol] 42 pg/mL Invalid Interpretation Code [facility] Comment on above: Result Comment: Perf ormed at: CB [facility] [address] [id number] PhD Jake Edwards Performed By: #### 1 [id number] ####[facility] [address] [place] [address] CBC w/Indiceson 12-16-2022 Erythrocyte distribution width (RBC) [Ratio] 14.4 % High 10.9-14.2 [facility] Comment on above: Performed By: #### 2 [id number] #### [facility] [address] [place] [address] Hematocrit (Bld) [Volume fraction] 30.9 % Low 34.0-46.0 [facility] Comment on above: Performed By: #### 2 [id number] #### [facility] [address] [place] [address] Hemoglobin (Bld) [Mass/Vol] 10.4 g/dL Low 12.0-16.0 [facility] Comment on above: Performed By: #### 2 [id number] #### [facility] [address] [place] [address] MCH (RBC) [Entitic mass] 30.7 pg Normal 27.0-34.0 [facility] Comment on above: Performed By: #### 2 [id number] #### [facility] [address] [place] [address] MCHC (RBC) [Mass/Vol] 33.7 g/dL Normal 31.4-36.0 [facility] Comment on above: Performed By: #### 2 [id number] #### [facility] [address] [place] [address] MCV (RBC) [Entitic vol] 90.9 fL Normal 80.0-100.0 [facility] Comment on above: Performed By: #### 2 [id number] #### [facility] [address] [place] [address] Platelet mean volume (Bld) [Entitic vol] 7.0 fL Normal 6.4-10.8 [facility] Comment on above: Performed By: #### 2 [id number] #### [facility] [address] [place] [address] Platelets (Bld) [#/Vol] 264.0 E9/L Normal 150.0-500.0 [facility] Comment on above: Performed By: #### 2 [id number] #### [facility] [address] [place] [address] RBC (Bld) [#/Vol] 3.4 E12/L Low 4.3-5.9 [facility] Comment on above: Performed By: #### 2 [id number] #### [facility] [address] [place] [address] WBC corrected for nucl RBC Auto (Bld) [#/Vol] 4.8 E9/L Normal 4.0-11.0 [facility] Comment on above: Performed By: #### 2 [id number] #### [facility] [address] [place] [address] CHEMISTRYOrdered By: Lab ROP User on 12-16-2022 Glucose [Mass/Vol] 155 mg/dL High 55 - 99 mg/dL [facility] POC Subsection Comment on above: Result Comment: Yvonne jl Meter POC Device SN [id number] Invalid Interpretation Code FT POC Subsection POC User ID [id number] Invalid Interpretation Code [facility] POC Subsection POC Username EJ SIMS Invalid Interpretation Code [facility] POC Subsection Glucose [Mass/Vol] 127 mg/dL High 55 - 99 mg/dL [facility] POC Subsection Comment on above: Result Comment: Yvonne jl Meter POC Device SN [id number] Invalid Interpretation Code [facility] POC Subsection POC User ID [id number] Invalid Interpretation Code [facility] POC Subsection POC Username OUSMANE HWANG Invalid Interpretation Code [facility] POC Subsection CHEMISTRYOrdered By: Kerry Maravilla on 12-16-2022 Albumin Elph (U) [Mass fraction] mg/dL Invalid Interpretation Code [facility] Creatinine (U) [Mass/Vol] 44.5 mg/dL Invalid Interpretation Code [facility] U Prot/Creat Ratio [facility] Invalid Interpretation Code 0.00 - 200.00 [facility] CHEMISTRYOrdered By: SYSTEM SYSTEM on 12-16-2022 25-hydroxyvitamin D3 [Mass/Vol] 43.0 ng/mL Normal 30.0 - 100.0 ng/mL [facility] Albumin [Mass/Vol] 2.9 g/dL Low 3.3 - 5.0 gm/dL [facility] Anion gap [Moles/Vol] 12 mmol/L Normal 6 - 16 mEq/L [facility] Calcium [Mass/Vol] 8.9 mg/dL Normal 8.9 - 11. 1 mg/dL [facility] Chloride [Moles/Vol] 106 mmol/L Normal 101 - 1 11 mmol/L [facility] CO2 [Moles/Vol] 28 mmol/L Normal 21 - 31 mmol/L [facility] Creatinine [Mass/Vol] 1.4 mg/dL High 0.5 - 1.3 mg/dL [facility] Ferritin [Mass/Vol] 40 ng/mL Normal 11 - 307 ng/mL [facility] GFR/1.73 sq M.predicted among non-blacks MDRD (S/P/Bld) [Vol rate/Area] 39 mL/min/1.73 m2 Low >=59mL/min/ 1.73 m2 FT Chem S Glucose [Mass/Vol] 125 mg/dL Normal 55 - 199 mg/dL [facility] Iron [Mass/Vol] 39 ug/dL Normal 35 - 153 mcg/dL [facility] Iron binding capacity [Mass/Vol] 266 ug/dL Normal 250 - 400 mcg/dL [facility] Magnesium [Mass/Vol] 1.7 mg/dL Normal 1.3 - 2 .4 mg/dL [facility] Phosphate [Mass/Vol] 4.2 mg/dL Normal 1.9 - 4 .6 mg/dL [facility] Remisol Potassium [Moles/Vol] 3.6 mmol/L Normal 3.5 - 5.3 mmol/L [facility] Remisol Sodium [Moles/Vol] 142 mmol/L Normal 135 - 145 mmol/L [facility] Remisol Transferrin [Mass/Vol] 190 mg/dL Low 200 - 370 mg/dL [facility] Remisol Urate [Mass/Vol] 5.8 mg/dL Normal 2.2 - 7.4 mg/dL [facility] Remisol Urea nitrogen [Mass/Vol] 24 mg/dL High 5 - 21 mg/dL [facility] Remisol Urea nitrogen/Creatinine [Mass ratio] 17 mg/mg Normal 10 - [address] [facility] Remisol Capillary Glucose POCon 12-04 Glucose [Mass/Vol] 155 mg/dL High 55-99 [facility] Comment on above: Result Comment: Yvonne jl Meter Performed By: #### 2 [id number] #### [facility] [address] [place] [address] Glucose [Mass/Vol] 127 mg/dL High 55-99 [facility] Comment on above: Result Comment: Yvonne jl Meter Performed By: #### 2 [id number] ####[facility] [address] [place] [address] Family Medicine Office/Clini c Noteon 12-16-2022 Family Medicine Office/Clinic Note Chief Complaint TCU Discharge History of Present Illness Patient is being seen today for a discharge visit. [place] [facility] [place] back admission from 12/02-12/03 for uti failing outpt treatment, ecoli, and generalized weakness with self care deficit. she returns to the tcu for further physical therapy and decision about whether she can return home. pt goal to return home. Pt with hx of dm, ckd, hyperlipidemia, hypothyroidism, [1] Patient is pleasant. Appetite good. Bowels moving appropriately. Patient c/o chronic pain to her left wrist which has worsened since her fall. Imaging is negative. Working with pt/ot. Uses a platform walker to perform her ADL's. No patient or nursing concerns at this time. Review of Systems as per HPI. all other ROS neg. Physical Exam General: Well developed, well nourished, in no acute distress Lungs: Normal respiratory effort and clear to auscultation Cardio: Regular rate and rhythm, no murmur Abdomen: Soft, non-distended, non-tender Musculoskeletal: No deformity noted. wrist brace to left wrist intact. RLE: no edema_ LLE: no edema_ Neurologic: Grossly normal Skin: No rashes, ulcerations, or suspicious lesions Mental Status: Alert and oriented x3. Normal mood and affect Assessment/Plan Home Health Pvks-ch-Jemf Encounter Type: Medicare Reason for Aqcy-xx-Swks (Diagnosis): DISCHARGE DIAGNOSIS Encounter Detail I certify that I conducted and documented that a nwie-wb-hjrz (F2F) encounter with the consumer occurred within the 90 days prior to the home health services start of care date, or within 30 days following the start of care date (inclusive of the start of care date), preceding the certification of medical necessity. Residential: Yes Physical Therapy: Yes Occupational Therapy: Yes Speech Therapy: No Green Chain Operator: Yes Installation Engineer: Yes Need for Home Health Services I certify based on my findings that... a. Home health services are medically necessary for this patient, including either intermittent group home and/or therapy, AND b. The patient cannot leave his/her home due to the following reasons: Musculoskeletal - _weakness, decreased functional ADL's My clinical finding(s) support the need for these services because: _weakness, decreased functional ADL's Certificate of Medical Necessity for Home Health Medicare Requirement I certify that I am the qualifying treating provider for the above-named consumer and that the consumer needs medically necessary home health services for the treatment of consumer's illness or injury that are appropriate for the consumer's diagnosis, prognosis, functional and medical conditions. 1. UTI (urinary tract infection) (N39.0: Urinary tract infection, site not specified) ecoli- treated with course of cefdinir after failing cipro. 2. Weakness generalized (R53.1: Weakness) Working with pt/ot. 3. Dementia (F03.90: Unspecified dementia, unspecified severity, without behavioral disturbance, psychotic disturbance, mood disturbance, and anxiety) Mood stable. 4. Left wrist pain (M25.532: Pain in left wrist) degenerative changes on images, negative for acute issues. Using norco for increased pain since the fall. She will follow up with Follow-up No qualifying data available Problem List/Past Medical History Ongoing Cerebrovascular small vessel disease Dementia Diabetes mellitus with polyneuropathy Fibromyalgia Hyperlipemia, mixed Hypothyroid Left wrist pain Recurrent falls UTI (urinary tract infection) Vitamin D deficiency Weakness generalized Historical Back pain Procedure/Surgical History None. Medications aspirin 81 mg Oral EC Tab, 81 mg= 1 tab(s), Oral, Daily atorvastatin 10 mg Tab, 10 mg= 1 tab(s), Oral, Bedtime carvedilol 6.25 mg Tab, 6.25 mg= 1 tab(s), Oral, BID cefdinir 300 mg Cap, 300 mg= 1 cap(s), Oral, q12hr cetirizine 10 mg Tab, 10 mg= 1 tab(s), Oral, Daily, PRN cholecalciferol 10,000 intl units oral capsule, 250 mcg= 1 cap(s), Oral, MonWedFri ferrous sulfate 325 mg Tab, 325 mg= 1 tab(s), Oral, MonWedFri furosemide 40 mg Tab, 40 mg= 1 tab(s), Oral, Daily insulin lispro, 0-10 Units, SubCutaneous, QIDACHS levothyroxine 50 mcg (0.05 mg) Tab, 50 mcg= 1 tab(s), Oral, Daily metformin 500 mg oral tablet, 500 mg= 1 tab(s), Oral, BID nitroglycerin 0.4 mg sublingual Tab, 0.4 mg= 1 tab(s), SubLingual, q5min, PRN [place] 325 mg-5 mg oral tablet, 1 tab(s), Oral, q8hr, PRN nystatin Top 100,000 units/g Pwdr, 1 chantal, Topical, BID polyethylene glycol 3350 17 gram packet, 17 gm, Oral, Daily, PRN Potassium Chloride (Eqv-K-Tab) 10 mEq oral tablet, extended release, 10 mEq= 1 tab(s), Oral, BID pregabalin 150 mg Cap, 150 mg= 1 cap(s), Oral, BID ropinirole 4 mg oral tablet, 4 mg= 1 tab(s), Oral, Supper traZODONE 150 mg Tab, 150 mg= 1 tab(s), Oral, Once a day (at bedtime) Tylenol Extra Strength 500 mg oral tablet, 1000 mg= 2 tab(s), Oral, q6hr Aller (more content not included)... Normal [facility] Comment on above: Result Comment: Elec tronically Signed By: Leigh SELBY, Nadege Sykes\Date and Time Signed: 12/16/22 15:12 EDT Ferritinon 12-16-2022 Ferritin [Mass/Vol] 40 ng/mL Normal 11-307 [facility] Comment on above: Result Comment: NORM ALS MEN <30 YRS 16-132 ng/mL MEN >30 YRS 8-338 ng/mL WOMEN (PREMEN) 6-104 ng/mL WOMEN (POSTMEN) 12-210 ng/mL Performed By: #### 2 [id number] #### [facility] [address] [place] [address] HEMATOLOGYOrdered By: Leanne Carrillo on 12-16-2022 Erythrocyte distribution width (RBC) [Ratio] 14.4 % High 10.9 - 14.2 % [facility] HemeAutoSS Hematocrit (Bld) [Volume fraction] 30.9 % Low 34.0 - 46.0 % [facility] HemeAutoSS Hemoglobin (Bld) [Mass/Vol] 10.4 g/dL Low 12.0 - 16.0 gm/dL [facility] HemeAutoSS MCH (RBC) [Entitic mass] 30.7 pg Normal 27. 0 - 34.0 pg [facility] HemeAutoSS MCHC (RBC) [Mass/Vol] 33.7 g/dL Normal 31.4 - 36.0 gm/dL [facility] HemeAutoSS MCV (RBC) [Entitic vol] 90.9 fL Normal 80.0 - 100.0 fL [facility] HemeAutoSS Platelet mean volume (Bld) [Entitic vol] 7.0 fL Normal 6.4 - 10.8 fL [facility] HemeAutoSS Platelets (Bld) [#/Vol] 264.0 E9/L Normal 150. 0 - 500.0 E9/L [facility] HemeAutoSS RBC (Bld) [#/Vol] 3.4 E12/L Low 4.3 - 5.9 E12/L [facility] HemeAutoSS WBC corrected for nucl RBC Auto (Bld) [#/Vol] 4.8 E9/L Normal 4.0 - 11.0 E9/L [facility] HemeAutoSS Ironon 12-16-2022 Iron [Mass/Vol] 39 microgram/dL Normal 35-153 [facility] Comment on above: Performed By: #### 2 [id number] #### [facility] [address] [place] [address] Laboratory - Microbiology an d Antimicrobial susceptibilityOrdered By: Jasmin Desai on 12-16-2022 Bacteria identified Cx Nom (U) >100,000 cfu/ml Streptococcus species 4,000 cfu/ml Mixed skin contaminants [facility] Magnesiumon 12-16-2022 Magnesium [Mass/Vol] 1.7 mg/dL Normal 1.3-2.4 [facility] Comment on above: Performed By: #### 2 [id number] #### [facility] [address] [place] [address] Prison Recordson 12-16 Prison Records [id number] #1.00CD:127 Normal [facility] Prison Records [id number]#1.00CD:127 Normal [facility] Reference Laboratory Testing Ordered By: Sherrie WhitmanUsevilma on 12-16-2022 Parathyrin.intact [Mass/Vol] 42 pg/mL Invalid Interpretation Code 15-65pg/mL [facility] SendOutsSS Comment on above: Result Comment: Perf ormed at: CB [facility] [address] [id number] PhD Jake Edwards Renal Panelon 12-16-2022 Albumin [Mass/Vol] 2.9 g/dL Low 3.3-5.0 [facility] Comment on above: Performed By: #### 2 [id number] #### [facility] [address] [place] [address] Anion gap [Moles/Vol] 12 mmol/L Normal 6-16 [facility] Comment on above: Performed By: #### 2 [id number] #### [facility] [address] [place] [address] Calcium [Mass/Vol] 8.9 mg/dL Normal 8.9-11.1 [facility] Comment on above: Performed By: #### 2 [id number] #### [facility] [address] [place] [address] Chloride [Moles/Vol] 106 mmol/L Normal 101-111 [facility] Comment on above: Performed By: #### 2 [id number] #### [facility] [address] [place] [address] CO2 [Moles/Vol] 28 mmol/L Normal 21-31 [facility] Comment on above: Performed By: #### 2 [id number] #### [facility] [address] [place] [address] Creatinine [Mass/Vol] 1.4 mg/dL High 0.5-1.3 [facility] Comment on above: Performed By: #### 2 [id number] #### [facility] [address] [place] [address] Glucose [Mass/Vol] 125 mg/dL Normal 55-199 [facility] Comment on above: Result Comment: If t his glucose result represents a fasting glucose, interpretation should refer to the following reference range: 55-99 mg/dL Performed By: #### 2 [id number] #### [facility] [address] [place] [address] Phosphate [Mass/Vol] 4.2 mg/dL Normal 1.9-4.6 [facility] Comment on above: Performed By: #### 2 [id number] #### [facility] [address] [place] [address] Potassium [Moles/Vol] 3.6 mmol/L Normal 3.5-5.3 [facility] Comment on above: Performed By: #### 2 [id number] #### [facility] [address] [place] [address] Sodium [Moles/Vol] 142 mmol/L Normal 135-145 [facility] Comment on above: Performed By: #### 2 [id number] #### [facility] [address] [place] [address] Urea nitrogen [Mass/Vol] 24 mg/dL High 5-21 [facility] Comment on above: Performed By: #### 2 [id number] #### [facility] [address] [place] [address] Urea nitrogen/Creatinine [Mass ratio] 17 No Units Normal 10-20 [facility] Comment on above: Performed By: #### 2 [id number] #### [facility] [address] [place] [address] TIBC Calculatedon 12-16-2022 Iron binding capacity [Mass/Vol] 266 microgram/dL Normal 250-400 [facility] Comment on above: Performed By: #### 2 [id number] #### [facility] [address] [place] [address] Transferrin [Mass/Vol] 190 mg/dL Low 200-370 [facility] Comment on above: Performed By: #### 2 [id number] #### [facility] [address] [place] [address] U Protein/Creat Ratioon 12-04 Albumin Elph (U) [Mass fraction] <6.0 Invalid Interpretation Code [facility] Comment on above: Result Comment: The reference range and other method performance specifications have not been established for this test; results should be integrated into the clinical context for interpretation. Performed By: #### 1 [id number] ####[facility] [address] [place] [address] Creatinine (U) [Mass/Vol] 44.5 mg/dL Invalid Interpretation Code [facility] Comment on above: Result Comment: The reference range and other method performance specifications have not been established for this test; results should be integrated into the clinical context for interpretation. Performed By: #### 1 [id number], [id number], [id number] ####[facility] [address] [address] U Prot/Creat Ratio [facility] Invalid Interpretation Code .00-200.00 [facility] Comment on above: Performed By: #### 1 [id number], [id number] ####[facility] [address] [place] [address] UA With Cult Reflexon 2022 Bacteria LM Ql (Urine sed) 1+ /HPF Abnormal Trace [facility] Comment on above: Performed By: #### 1 [id number] ####[facility] [address] [place] [address] Bilirubin Ql (U) Negative Normal Negative [facility] Comment on above: Performed By: #### 1 [id number], [id number], [id number] ####[address] [address] Clarity (U) CLEAR Normal Clear [facility] Comment on above: Performed By: #### 1 [id number], [id number] ####[address] [address] Color (U) YELLOW Normal Yellow [facility] Comment on above: Performed By: #### 1 [id number], [id number], [id number] ####[address] [address] Epithelial cells.squamous LM.HPF (Urine sed) [#/Area] 0-2 Normal 0-2 [facility] Comment on above: Performed By: #### 1 [id number], [id number], [id number] ####[facility] [address] [place] [address] Glucose Test strip (U) [Mass/Vol] Negative Normal Negative [facility] Comment on above: Performed By: #### 1 [id number], [id number], [id number] ####[place] [address] [place] [address] Hemoglobin Ql (U) Negative Normal Negative [facility] Comment on above: Performed By: #### 1 [id number], [id number], [id number] ####[address] [address] Ketones (U) [Mass/Vol] Negative Normal Negative [facility] Comment on above: Performed By: #### 1 [id number], [id number], [id number] ####[facility] [address] [place] [address] [place].plasma/[place].R BC (Bld) [Mass ratio] 0-3 Normal 0-3 [facility] Comment on above: Performed By: #### 1 [id number], [id number], [id number] ####[address] [address] Nitrite Ql (U) Negative Normal Negative [facility] Comment on above: Performed By: #### 1 [id number], [id number], [id number] ####[address] [address] pH (U) 6.0 [pH] Invalid Interpretation Code 5.0-9.0 [facility] Comment on above: Performed By: #### 1 [id number], [id number], [id number] ####[address] [address] Protein (U) [Mass/Vol] Negative Normal Negative [facility] Comment on above: Performed By: #### 1 [id number], [id number], [id number] ####[address] [address] Specific gravity (U) [Rel density] <=1.005 Invalid Interpretation Code 1.005-1.030 [facility] Comment on above: Performed By: #### 1 [id number], [id number], [id number] ####[address] [address] Type of Urine collection method Clean Catch Normal [facility] Comment on above: Performed By: #### 1 [id number], [id number], [id number] ####[address] [address] Urobilinogen Qn (U) 0.2 {Macie'U}/dL Normal 0.0-1.0 [facility] Comment on above: Performed By: #### 1 6542919, [id number], [id number] ####[facility] [address] [place] [address] WBC Auto Ql (U) 1+ Abnormal Negative [facility] Comment on above: Performed By: #### 1 [id number], [id number], [id number] ####[facility] [address] [place] [address] WBC LM.HPF (Urine sed) [#/Area] /[HPF] Abnormal 0-5 [facility] Comment on above: Performed By: #### 1 [id number], [id number], [id number] ####[facility] [address] [place] [address] URINALYSISOrdered By: Ghassan Salcido on 12-16-2022 Bacteria LM Ql (Urine sed) 1+ /HPF Invalid Interpretation Code Trace/HPF [facility] UA Auto SS Bilirubin Ql (U) Negative (12/16/22 7:32 AM) Normal Negative [facility] UA Auto SS Clarity (U) Clear (12/16/22 7:32 AM) Normal Clear [facility] UA Auto SS Color (U) Yellow (12/16/22 7:32 AM) Normal Yellow [facility] UA Auto SS Epithelial cells.squamous LM.HPF (Urine sed) [#/Area] 0-2 /HPF Normal 0-2/HPF [facility] UA Aut o SS Glucose Test strip (U) [Mass/Vol] Negative (12/16/22 7:32 AM) Normal Negative [facility] UA Auto SS Hemoglobin Ql (U) Negative (12/16/22 7:32 AM) Normal Negative [facility] UA Auto SS Ketones (U) [Mass/Vol] Negative (12/16/22 7:32 AM) Normal Negative [facility] UA Auto SS [place].plasma/[place].R BC (Bld) [Mass ratio] 0-3 /HPF Normal 0-3/HPF [facility] UA Au to SS Nitrite Ql (U) Negative (12/16/22 7:32 AM) Normal Negative [facility] UA Auto SS pH (U) 6.0 *NA* (12/16/22 7:32 AM) Invalid Interpretation Code 5.0 - 9.0 [facility] UA Auto SS Protein (U) [Mass/Vol] Negative (12/16/22 7:32 AM) Normal Negative [facility] UA Auto SS Specific gravity (U) [Rel density] <=1.005 *NA* (12/16/22 7:32 AM) Invalid Interpretation Code 1.005 - 1.030 [facility] UA Auto SS UA Spec Desc Clean Catch (12/16/22 7:32 AM) Normal [facility] UA Auto SS Urobilinogen Qn (U) 0.1230276 {Macie'U}/dL Normal 0.0 - 1.0 EU/dL [facility] UA Auto SS WBC Auto Ql (U) 1+ *ABN* (12/16/22 7:32 AM) Invalid Interpretation Code Negative [facility] UA Auto SS WBC LM.HPF (Urine sed) [#/Area] /[HPF] Invalid Interpretation Code 0-5/HPF [facility] UA Auto SS Uric Acidon 12-16-2022 Urate [Mass/Vol] 5.8 mg/dL Normal 2.2-7.[address] [facility] Comment on above: Performed By: #### 2 [id number] #### [facility] [address] [place] [address] Vitamin D 25 Hydroxyon 12-16 25-hydroxyvitamin D3 [Mass/Vol] 43.0 ng/mL Normal 30.0-100.0 [facility] Comment on above: Order Comment: Dx pe r Dr. Yaneth Solo: I12.9, N18.30, E11.22, N25.81, M10.9, D63.1, E83.42 Result Comment: Vit laureano D deficiency has been defined as a level of serum 25-OH vitamin D less than 20 ng/mL (1,2) by the [place] of [employer] and an Endocrine Society practice guideline. The Endocrine Society further defined vitamin D insufficiency as a level between 21 and 29 ng/mL (2). 1. IOM ([place] of [employer]). 2010. Dietary reference intakes for calcium and D. [place]: The National Academies Press. 2. Benjamín ROBERTSON, Vikram GOSS, Kira HERNANDEZ, et al. Evaluation, treatment, and prevention of vitamin D deficiency: an Endocrine Society clinical practice guideline. JCEM. 2010; 96 (7):1911-30. Performed By: #### 2 [id number] #### [facility] [address] [place] [address] eGFRon 12-16-2022 GFR/1.73 sq M.predicted among non-blacks MDRD (S/P/Bld) [Vol rate/Area] 39 mL/min/1.73 m2 Low >=59 [facility] Comment on above: Order Comment: Order added by Discern Expert. 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 Kidney failure is indicated at less than 15 mL/min/1.73m2. Performed By: #### 2 [id number] #### [facility] [address] [place] [address] Capillary Glucose POCon 12-04 Glucose [Mass/Vol] 164 mg/dL High 55-99 [facility] Comment on above: Result Comment: Yvonne jl Meter Performed By: #### 1 [id number] #### [facility] [address] [place] [address] Glucose [Mass/Vol] 126 mg/dL High 55-99 [facility] Comment on above: Performed By: #### 2 [id number] ####[facility] [address] [place] [address] Capillary Glucose POCon 12-04 Glucose [Mass/Vol] 178 mg/dL High 55-99 [facility] Comment on above: Result Comment: Yvonne jl Meter Performed By: #### 2 [id number] ####[facility] [address] [place] [address] Glucose [Mass/Vol] 108 mg/dL High 55-99 [facility] Comment on above: Result Comment: Yvonne jl Meter Performed By: #### 2 [id number] ####[facility] [address] [place] [address] Glucose [Mass/Vol] 182 mg/dL High 55-[address] [place] [address] Comment on above: Result Comment: Yvonne jl Meter Performed By: #### 2 [id number] ####[facility] [address] [place] [address] Glucose [Mass/Vol] 126 mg/dL [address] Comment on above: Result Comment: Yvonne jl Meter Performed By: #### 1 [id number] #### [facility] [address] [place] [address] Glucose [Mass/Vol] 164 mg/dL High -[address] [place] [address] Comment on above: Result Comment: Yvonne jl Meter Performed By: #### 2 [id number] ####[facility] [address] [place] [address] Capillary Glucose POCon 07- 0 Glucose [Mass/Vol] 155 mg/dL [address] Comment on above: Performed By: #### 2 [id number] #### [facility] [address] [place] [address] Glucose [Mass/Vol] 162 mg/dL [address] Comment on above: Performed By: #### 1 [id number] #### [facility] [address] [place] [address] Glucose [Mass/Vol] 128 mg/dL [address] Comment on above: Result Comment: Yvonne jl Meter Performed By: #### 2 [id number] ####[facility] [address] [place] [address] Capillary Glucose POCon 07-0 Glucose [Mass/Vol] 168 mg/dL [address] Comment on above: Result Comment: Yvonne jl Meter Performed By: #### 2 [id number] #### [facility] [address] [place] [address] Glucose [Mass/Vol] 166 mg/dL [address] Comment on above: Result Comment: Yvonne jl Meter Performed By: #### 2 [id number] #### [facility] [address] [place] [address] Glucose [Mass/Vol] 137 mg/dL High 55-99 [facility] Comment on above: Result Comment: Yvonne jl Meter Performed By: #### 2 [id number] #### [facility] [address] [place] [address] Glucose [Mass/Vol] 116 mg/dL High 55-99 [facility] Comment on above: Result Comment: No C overage Given Cleaned Meter Performed By: #### 2 [id number] #### [facility] [address] [facility] [place] [place] [address] Glucose [Mass/Vol] 208 mg/dL High 55-99 [facility] Comment on above: Result Comment: Insu irais Started Cleaned Meter Performed By: #### 2 [id number] ####[facility] [address] [place] [address] Capillary Glucose POCon 07-0 Glucose [Mass/Vol] 134 mg/dL High 55-99 [facility] Comment on above: Result Comment: Yvonne jl Meter Performed By: #### 2 [id number] ####[facility] [address] [facility] [place] [address] Glucose [Mass/Vol] 113 mg/dL High 55-99 [facility] Comment on above: Result Comment: Yvonne jl Meter Performed By: #### 2 [id number] ####[facility] [address] [facility] [place] [address] Glucose [Mass/Vol] 117 mg/dL High 55-99 [facility] Comment on above: Result Comment: Yvonne jl Meter Performed By: #### 2 [id number] ####[facility] [address] [facility] [place] [address] Capillary Glucose POCon 07-0 Glucose [Mass/Vol] 211 mg/dL High 55-99 [facility] Comment on above: Result Comment: Yvonne jl Meter Performed By: #### 2 [id number] #### [facility] [address] [place] [address] Glucose [Mass/Vol] 145 mg/dL High 55-99 [facility] Comment on above: Result Comment: Yvonne jl Meter Performed By: #### 2 [id number] ####[facility] [address] [place] [address] Glucose [Mass/Vol] 100 mg/dL High 55-99 [facility] Comment on above: Result Comment: Yvonne jl Meter Performed By: #### 2 [id number] ####[facility] [address] [facility] [place] [address] Glucose [Mass/Vol] 131 mg/dL High 55-99 [facility] Comment on above: Result Comment: Yvonne jl Meter Performed By: #### 1 [id number] #### [facility] [address] [place] [address] Family Medicine Office/Clini c Noteon 12-10-2022 Family Medicine Office/Clinic Note History of Present Illness [place] [facility] [place] back admission from 12/02-12/03 for uti failing outpt treatment, ecoli, and generalized weakness with self care deficit. she returns to the [facility] for further physical therapy and decision about whether she can return home. pt goal to return home. Pt with hx of dm, ckd, hyperlipidemia, hypothyroidism, Review of Systems Constitutional: no fever, no chills, no sweats, no weakness Respiratory: no shortness of breath, no cough, no orthopnea, no wheezing Cardiovascular: no chest pain, no palpitations, no edema Additional ROS info: Except as noted in the above Review of Systems and in the History of Present Illness all other systems have been reviewed and are negative or noncontributory. Physical Exam Vitals & Measurements HR: 72(Peripheral) RR: 16 BP: 121/75 SpO2: 97% GENERAL: pleasant older obese wf seen in [facility] alone in [place] HEENT: no abnormalities NECK:no tmg, no isa, no masses CARDIAC: reg rate and rhythm, no mrcg LUNGS: clear to auscultation, no wheezes, rales, or rhonchi EXT: no edema MUSCULOSKELETAL: sitting in chair PSYCHIATRIC: alert and oriented x 3, nl speech and thought content, nl mood and affect Assessment/Plan 1. UTI (urinary tract infection) (N39.0: Urinary tract infection, site not specified) shows ecoli, treat with full course of cefdinir since failed cipro 2. Weakness generalized (R53.1: Weakness) getting PT and OT 3. 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 Recurrent falls (R29.6: Repeated falls) getting PT , need to determine if pt can return home safely, states her is at home 5. Hyperlipemia, mixed (E78.2: Mixed hyperlipidemia) continue atorvastatin 10 mg 6. Hypothyroid (E03.9: Hypothyroidism, unspecified) continue levothyroxine Follow-up No qualifying data available Problem List/Past Medical History Ongoing Cerebrovascular small vessel disease Dementia Diabetes mellitus with polyneuropathy Fibromyalgia Hyperlipemia, mixed Hypothyroid Recurrent falls UTI (urinary tract infection) Vitamin D deficiency Weakness generalized Historical Back pain Left wrist pain Procedure/Surgical History None. Medications aspirin 81 mg Oral EC Tab, 81 mg= 1 tab(s), Oral, Daily atorvastatin 10 mg Tab, 10 mg= 1 tab(s), Oral, Bedtime carvedilol 6.25 mg Tab, 6.25 mg= 1 tab(s), Oral, BID cefdinir 300 mg Cap, 300 mg= 1 cap(s), Oral, q12hr cetirizine 10 mg Tab, 10 mg= 1 tab(s), Oral, Daily, PRN cholecalciferol 10,000 intl units oral capsule, 250 mcg= 1 cap(s), Oral, MonWedFri ferrous sulfate 325 mg Tab, 325 mg= 1 tab(s), Oral, MonWedFri furosemide 40 mg Tab, 40 mg= 1 tab(s), Oral, Daily insulin lispro, 0-10 Units, SubCutaneous, QIDACHS levothyroxine 50 mcg (0.05 mg) Tab, 50 mcg= 1 tab(s), Oral, Daily metformin 500 mg oral tablet, 500 mg= 1 tab(s), Oral, BID nitroglycerin 0.4 mg sublingual Tab, 0.4 mg= 1 tab(s), SubLingual, q5min, PRN [place] 325 mg-5 mg oral tablet, 1 tab(s), Oral, q8hr, PRN nystatin Top 100,000 units/g Pwdr, 1 chantal, Topical, BID polyethylene glycol 3350 17 gram packet, 17 gm, Oral, Daily, PRN Potassium Chloride (Eqv-K-Tab) 10 mEq oral tablet, extended release, 10 mEq= 1 tab(s), Oral, BID pregabalin 150 mg Cap, 150 mg= 1 cap(s), Oral, BID ropinirole 4 mg oral tablet, 4 mg= 1 tab(s), Oral, Supper traZODONE 150 mg Tab, 150 mg= 1 tab(s), Oral, Once a day (at bedtime) Tylenol Extra Strength 500 mg oral tablet, 1000 mg= 2 tab(s), Oral, q6hr Allergies Stadol Social History Alcohol - Denies Alcohol Use, 10/07/2015 Substance Abuse - Denies Substance Abuse, 10/13/2015 Tobacco - Denies Tobacco Use, 10/07/2015 Family History Acute myocardial infarction: Mother and Father. Diabetes mellitus type 2: Sister. Hypertension: Brother. Primary malignant neoplasm of colon: Brother. Sleep apnea: Spouse. Normal [facility] Comment on above: Result Comment: Elec tronically Signed By: DIONNA BRIGGS, Kimberly Brand\.br\Date and Time Signed: 12/10/22 07:41 EDT UA With Cult Reflexon 2022 Bacteria LM Ql (Urine sed) TRACE Normal Trace [facility] Comment on above: Performed By: #### 1 [id number] ####[facility] [address] [place] [address] Bilirubin Ql (U) Negative Normal Negative [facility] Comment on above: Performed By: #### 1 [id number] ####[facility] [address] [place] [address] Clarity (U) CLEAR Normal Clear [facility] Comment on above: Performed By: #### 1 [id number] ####[facility] [address] [place] [address] Color (U) YELLOW Normal Yellow [facility] Comment on above: Performed By: #### 1 [id number] ####[facility] [address] [place] [address] Epithelial cells.squamous LM.HPF (Urine sed) [#/Area] 0-2 Normal 0-2 [facility] Comment on above: Performed By: #### 1 [id number] ####[facility] [address] [place] [address] Glucose Test strip (U) [Mass/Vol] Negative Normal Negative [facility] Comment on above: Performed By: #### 1 [id number] ####[facility] [address] [place] [address] Hemoglobin Ql (U) Negative Normal Negative [facility] Comment on above: Performed By: #### 1 [id number] ####[address] [address] Ketones (U) [Mass/Vol] Negative Normal Negative [facility] Comment on above: Performed By: #### 1 [id number] ####[address] [address] [place].plasma/[place].R BC (Bld) [Mass ratio] 0-3 Normal 0-3 [facility] Comment on above: Performed By: #### 1 [id number] ####[facility] [address] [place] [address] Mucus Ql (Urine sed) TRACE Normal [facility] Comment on above: Performed By: #### 1 [id number] ####[facility] [address] [place] [address] Nitrite Ql (U) Negative Normal Negative [facility] Comment on above: Performed By: #### 1 [id number] ####[address] [address] pH (U) 6.5 [pH] Invalid Interpretation Code 5.0-9.0 [facility] Comment on above: Performed By: #### 1 [id number] ####[facility] [address] [place] [address] Protein (U) [Mass/Vol] Negative Normal Negative Fi [facility] Comment on above: Performed By: #### 1 [id number] ####[facility] [address] [place] [address] Specific gravity (U) [Rel density] 1.010 Invalid Interpretation Code 1.005-1.030 [facility] Comment on above: Performed By: #### 1 [id number] ####[facility] [address] [place] [address] Type of Urine collection method Clean Catch Normal [facility] Comment on above: Performed By: #### 1 [id number] ####[facility] [address] [place] [address] Urobilinogen Qn (U) 0.2 {Macie'U}/dL Normal 0.0-1.0 [facility] Comment on above: Performed By: #### 1 [id number] ####[facility] [address] [place] [address] WBC Auto Ql (U) Negative Normal Negative [facility] Comment on above: Performed By: #### 1 [id number] ####[facility] [address] [place] [address] WBC LM.HPF (Urine sed) [#/Area] 0-5 Normal 0-5 [facility] Comment on above: Performed By: #### 1 [id number] ####[facility] [address] [place] [address] URINALYSISOrdered By: Carlos daugherty on 12-10-2022 Bacteria LM Ql (Urine sed) Trace /HPF Normal Trace/HPF [facility] UA Auto SS Bilirubin Ql (U) Negative (12/10/22 1:43 PM) Normal Negative [facility] UA Auto SS Clarity (U) Clear (12/10/22 1:43 PM) Normal Clear [facility] UA Auto SS Color (U) Yellow (12/10/22 1:43 PM) Normal Yellow [facility] UA Auto SS Epithelial cells.squamous LM.HPF (Urine sed) [#/Area] 0-2 /HPF Normal 0-2/HPF [facility] UA Aut o SS Glucose Test strip (U) [Mass/Vol] Negative (12/10/22 1:43 PM) Normal Negative [facility] UA Auto SS Hemoglobin Ql (U) Negative (12/10/22 1:43 PM) Normal Negative [facility] UA Auto SS Ketones (U) [Mass/Vol] Negative (12/10/22 1:43 PM) Normal Negative [facility] UA Auto SS [place].plasma/[place].R BC (Bld) [Mass ratio] 0-3 /HPF Normal 0-3/HPF [facility] Au to SS Mucus Ql (Urine sed) Trace (12/10/22 1:43 PM) Normal [facility] UA Auto SS Nitrite Ql (U) Negative (12/10/22 1:43 PM) Normal Negative [facility] UA Auto SS pH (U) 6.5 *NA* (12/10/22 1:43 PM) Invalid Interpretation Code 5.0 - 9.0 [facility] UA Auto SS Protein (U) [Mass/Vol] Negative (12/10/22 1:43 PM) Normal Negative [facility] UA Auto SS Specific gravity (U) [Rel density] 1.010 *NA* (12/10/22 1:43 PM) Invalid Interpretation Code 1.005 - 1.030 [facility] UA Auto SS UA Spec Desc Clean Catch (12/10/22 1:43 PM) Normal [facility] UA Auto SS Urobilinogen Qn (U) 0.9823807 {Macie'U}/dL Normal 0.0 - 1.0 EU/dL [facility] UA Auto SS WBC Auto Ql (U) Negative (12/10/22 1:43 PM) Normal Negative [facility] UA Auto SS WBC LM.HPF (Urine sed) [#/Area] 0-5 /HPF Normal 0-5/HPF [facility] UA Auto SS Capillary Glucose POCon 07-0 Glucose [Mass/Vol] 202 mg/dL High 55-99 [facility] Comment on above: Result Comment: Yvonne parikh Meter Performed By: #### 2 [id number] #### [facility] [address] [place] [address] Glucose [Mass/Vol] 130 mg/dL High 55-99 [facility] Comment on above: Performed By: #### 2 [id number] #### [facility] [address] [place] [address] Glucose [Mass/Vol] 157 mg/dL High 55-[address] [place] [address] Comment on above: Result Comment: Repe at Test Performed By: #### 2 [id number] ####[facility] [address] [place] [address] Glucose [Mass/Vol] 110 mg/dL [place] [address] [place] [address] Comment on above: Performed By: #### 2 [id number] ####[facility] [address] [place] [address] Glucose [Mass/Vol] 129 mg/dL High -[address] [place] [address] Comment on above: Result Comment: Yvonne jl Meter Performed By: #### 2 [id number] ####[facility] [address] [place] [address] Capillary Glucose POCon 07-0 Glucose [Mass/Vol] 165 mg/dL [address] Comment on above: Result Comment: Yvonne jl Meter Performed By: #### 2 [id number] ####[facility] [address] [place] [address] Glucose [Mass/Vol] 130 mg/dL [address] Comment on above: Performed By: #### 2 [id number] #### [facility] [address] [place] [address] Glucose [Mass/Vol] 109 mg/dL [place] [address] [place] [address] Comment on above: Performed By: #### 2 [id number] #### [facility] [address] [place] [address] Glucose [Mass/Vol] 126 mg/dL [address] Comment on above: Result Comment: Yvonne jl Meter Performed By: #### 2 [id number] #### [facility] [address] [place] [address] Capillary Glucose POCon 07-0 Glucose [Mass/Vol] 203 mg/dL [address] Comment on above: Performed By: #### 2 [id number] ####[facility] [address] [facility] [place] [address] Glucose [Mass/Vol] 132 mg/dL High 55-99 [facility] Comment on above: Result Comment: Yvonne jl Meter Performed By: #### 2 [id number] ####[facility] [address] [facility] [place] [address] Glucose [Mass/Vol] 80 mg/dL Normal 55-99 [facility] Comment on above: Result Comment: Yvonne jl Meter Performed By: #### 2 [id number] ####[facility] [address] [facility] [place] [address] Glucose [Mass/Vol] 107 mg/dL High 55-99 [facility] Comment on above: Result Comment: Yvonne jl Meter No Coverage Given Performed By: #### 2 [id number] #### [facility] [address] [place] [address] Capillary Glucose POCon 07-0 Glucose [Mass/Vol] 161 mg/dL High 55-99 [facility] Comment on above: Result Comment: Insu irais Started Cleaned Meter Performed By: #### 2 [id number] #### [facility] [address] [place] [address] Glucose [Mass/Vol] 146 mg/dL High 55-99 [facility] Comment on above: Result Comment: Yvonne jl Meter Performed By: #### 2 [id number] ####[facility] [address] [facility] [place] [address] Glucose [Mass/Vol] 74 mg/dL Normal 55-99 [facility] Comment on above: Result Comment: Yvonne jl Meter Performed By: #### 2 [id number] ####[facility] [address] [facility] [place] [address] Glucose [Mass/Vol] 104 mg/dL High 55-99 [facility] Comment on above: Result Comment: Yvonne jl Meter Performed By: #### 2 [id number] #### [facility] [address] [place] [address] Capillary Glucose POCon 07-0 Glucose [Mass/Vol] 167 mg/dL High - [facility] Comment on above: Result Comment: Yvonne jl Meter Performed By: #### 2 [id number] ####[facility] [address] [place] [address] Glucose [Mass/Vol] 150 mg/dL High - [facility] Comment on above: Result Comment: Hour ly Monitoring Performed By: #### 2 [id number] ####[facility] [address] [place] [address] Glucose [Mass/Vol] 150 mg/dL High - [facility] Comment on above: Performed By: #### 1 [id number] #### [facility] [address] [place] [address] Glucose [Mass/Vol] 127 mg/dL High - [facility] Comment on above: Result Comment: Yvonne jl Meter Performed By: #### 2 [id number] #### [facility] [address] [place] [address] Capillary Glucose POCon 07-0 Glucose [Mass/Vol] 125 mg/dL High [address] [place] [address] Comment on above: Result Comment: Yvonne jl Meter Performed By: #### 2 [id number] #### [facility] [address] [place] [address] Glucose [Mass/Vol] 120 mg/dL [place] [address]- [facility] Comment on above: Performed By: #### 2 [id number] #### [facility] [address] [place] [address] Glucose [Mass/Vol] 149 mg/dL High -[address] [place] [address] Comment on above: Performed By: #### 2 [id number] ####[facility] [address] [place] [address] Glucose [Mass/Vol] 121 mg/dL High -[address] [place] [address] Comment on above: Result Comment: Yvonne jl Meter Performed By: #### 2 [id number] ####[facility] [address] [place] [address] BMPon 12-03-2022 Anion gap [Moles/Vol] 8 mmol/L Normal 6-16 [facility] Comment on above: Performed By: #### 2 798804, 33787393, 0778065, 7667850, 67338739, 7411122, 8724585, 8970972 ####[facility] [address] [place] [address] Calcium [Mass/Vol] 9.0 mg/dL Normal 8.9-11.1 [facility] Comment on above: Performed By: #### 2 480733, 85384007, 3456192, 7498103, 71089034, 4602064, 2989996, 4196123 ####[facility] [address] [place] [address] Chloride [Moles/Vol] 108 mmol/L Normal 101-111 [facility] Comment on above: Performed By: #### 2 288889, 60538795, 8566487, 6693672, 88807171, 2284312, 1383499, 1498825 ####[facility] [address] [place] [address] CO2 [Moles/Vol] 29 mmol/L Normal 21-31 [facility] Comment on above: Performed By: #### 2 194259, 86720028, 7573153, 8779872, 76291745, 8838218, 8840997, 5707823 ####[facility] [address] [place] [address] Creatinine [Mass/Vol] 1.1 mg/dL Normal 0.5-1.3 [facility] Comment on above: Performed By: #### 2 764959, 85000427, 9123547, 1672367, 01629777, 1366390, 6594459, 4757282 ####[facility] [address] [place] [address] Glucose [Mass/Vol] 127 mg/dL Normal 55-199 [facility] Comment on above: Result Comment: If t his glucose result represents a fasting glucose, interpretation should refer to the following reference range: 55-99 mg/dL Performed By: #### 2 790703, 57042894, 3509998, 7650553, 66470862, 9369906, 2664527, 0198769 ####[facility] [address] [place] [address] Potassium [Moles/Vol] 3.9 mmol/L Normal 3.5-5.3 [facility] Comment on above: Performed By: #### 2 893008, 50433322, 7415839, 2775900, 73473884, 3971081, 3310219, 5586983 ####[facility] [address] [place] [address] Sodium [Moles/Vol] 141 mmol/L Normal 135-145 [facility] Comment on above: Performed By: #### 2 954808, 11117265, 6668863, 7213213, 19611671, 1314717, 3816458, 2202679 ####[facility] [address] [place] [address] Urea nitrogen [Mass/Vol] 14 mg/dL Normal 5-21 [facility] Comment on above: Performed By: #### 2 248073, 21523087, 9741415, 8829607, 21628554, 8846075, 2143041, 3449963 ####[facility] [address] [place] [address] Urea nitrogen/Creatinine [Mass ratio] 13 No Units Normal 10-20 [facility] Comment on above: Performed By: #### 2 194356, 61619026, 9415886, 0660135, 05947583, 7560863, 1606921, 4401019 ####[facility] [address] [place] [address] Capillary Glucose POCon 06-3 0-2022 Glucose [Mass/Vol] 116 mg/dL High 55-99 [facility] Comment on above: Result Comment: Michelle PACHECO Performed By: #### 1 [id number] #### [facility] [address] [place] [address] Glucose [Mass/Vol] 156 mg/dL High 55-99 [facility] Comment on above: Result Comment: Michelle PACHECO Performed By: #### 2 [id number] ####[facility] [address] [place] [address] Discharge Note-Nursingon Discharge Note-Nursing NADIA PATTERSON :1945 Visit Date:12/02/2022 Inpatient Discharge Instructions Your Care Team Admitting Physician - Emma SALINAS MD Consulting Physician - Hospitalist Post Disch, Results Reviewer Reason for Your Visit weakness Your Diagnosis UTI (urinary tract infection) Generalized weakness Self-care deficit Lactic acidosis Iron deficiency anemia HTN (hypertension) HLD (hyperlipidemia) Non-insulin dependent type 2 diabetes mellitus CKD (chronic kidney disease), stage III Dementia Hypothyroidism Chronic pain History of CVA in adulthood Morbid obesity On deep vein thrombosis (DVT) prophylaxis Weakness or fatigue Tests Performed Automated Diff Blood Culture Charcoal -- Results Pending -- BMP BMP Capillary Glucose POC CBC w/ Auto Diff eGFR Ferritin Folate Level Iron Level Lactate Dehydrogenase Lactic Acid Reticulocyte Count TIBC Calculated Troponin 0 Hr. Vitamin B12 Level XR Chest Single View Please visit your patient portal for your results or contact your primary care physician. This Is Your Medications List acetaminophen (acetaminophen 325 mg Tab) acetaminophen-hydroc odone (acetaminophen-hydro codone 325 mg-5 mg oral tablet) aspirin (aspirin 81 mg Oral EC Tab) atorvastatin (atorvastatin 10 mg Tab) carvedilol (carvedilol 6.25 mg Tab) cefdinir (cefdinir 300 mg Cap) cetirizine (cetirizine 10 mg Tab) cholecalciferol (cholecalciferol 10,000 intl units oral capsule) ferrous sulfate (ferrous sulfate 325 mg Tab) furosemide (furosemide 40 mg Tab) insulin lispro levothyroxine (levothyroxine 50 mcg (0.05 mg) Tab) metformin (metformin 500 mg oral tablet) nitroglycerin (nitroglycerin 0.4 mg sublingual Tab) nystatin topical (nystatin Top 100,000 units/g Pwdr) polyethylene glycol 3350 (polyethylene glycol 3350 17 gram packet) potassium chloride (Potassium Chloride (Eqv-K-Tab) 10 mEq oral tablet, extended release) pregabalin (pregabalin 150 mg Cap) ropinirole (ropinirole 4 mg oral tablet) trazodone (traZODONE 150 mg Tab) [Image Removed: STOP]Stop taking these medications ciprofloxacin (ciprofloxacin 500 mg Tab) Procedure History None. Discharge Vitals Temperature (Oral) 36.7 ?C Heart Rate (Monitored) 67 Respiratory Rate 17 Blood Pressure 98/63 Height 149.86 cm Weight 87.8 kg BMI 39.45 What to do next Instructions From Your Doctor Event Name Event Result Discharge Activity Ambulate as tolerated, Activity as tolerated Discharge Restrictions No driving Discharge Diet(s) Calorie Controlled- 2000 Calorie Diet, Fat Modified- Low cholesterol, Low Sodium- 2000 mg Pending Diagnostic Test Results Blood culture Pharmacy Information Other: [facility] Discharge Instructions Transfer to TCU New Follow Up Appointments after Discharge Follow Up with HARPAL HAYES When: Comments: Call for followup appointment when d/c from TCU Where: [address] [place] [address] [facility] (1) Medications What How Much When Why Instructions Next Dose New acetaminophen (acetaminophen 325 mg Tab) 2 Tablets By Mouth Every 6 hours as needed for Pain not to exceed 4000 mg/ day NEEDED FOR PAIN (HAD NORCO @ 0833) New cefdinir (cefdinir 300 mg Cap) 1 Capsules By Mouth Every 12 hours Duration: 4 Days Pickup at [place] [address] 12/03 @ 9 PM New insulin lispro 0-10 Units Subcutaneous Four times a day (before meals and at bedtime) 12/03 @ LUNCH TIME Changed acetaminophen-hydroc odone (acetaminophen-hydro codone 325 mg-5 mg oral tablet) 1 Tablets By Mouth 3 times a day as needed for Pain 8-10 Chronic pain Duration: 3 Days Printed Prescription 12/03 @ 1630 (HAD AT 0833) Changed carvedilol (carvedilol 6.25 mg Tab) 1 Tablets By Mouth 2 times a day Hold for sbp 110 or less or HR 55 or less 12/03 @ 9 PM Unchanged aspirin (aspirin 81 mg Oral EC Tab) 1 Tablets By Mouth Every day 12/04 @ 9 AM Unchanged atorvastatin (atorvastatin 10 mg Tab) 1 Tablets By Mouth At bedtime 12/03 @ 9 PM Unchanged cetirizine (cetirizine 10 mg Tab) 1 Tablets By Mouth Every day as needed for allergies NEEDED FOR ALLERGIES Unchanged cholecalciferol (cholecalciferol 10,000 intl units oral capsule) 1 Capsules By Mouth 12/06 @ 9 AM Unchanged ferrous sulfate (ferrous sulfate 325 mg Tab) 1 Tablets By Mouth 12/06 @ 9 AM Unchanged furosemide (furosemide 40 mg Tab) 1 Tablets By Mouth Every day 12/04 @ 9 AM Unchanged levothyroxine (levothyroxine 50 mcg (0.05 mg) Tab) 1 Tablets By Mouth Every day 12/04 @ 6 AM Unchanged metformin (metformin 500 mg oral tablet) 1 Tablets By Mouth 2 times a day 12/03 @ 5 PM Unchanged nitroglycerin (nitroglycerin 0.4 mg sublingual Tab) 1 Tablets Sublingual Every 5 minutes as needed for for chest pain NEEDED FOR CHEST PAIN Unchanged nystatin topical (nystatin Top 100,000 units/ g Pwdr) 1 Application Topical 2 t (more content not included)... Normal [facility] Ferritinon 12-03-2022 Ferritin [Mass/Vol] 42 ng/mL Normal 11-307 [facility] Comment on above: Result Comment: NORM ALS MEN <30 YRS 16-132 ng/mL MEN >30 YRS 8-338 ng/mL WOMEN (PREMEN) 6-104 ng/mL WOMEN (POSTMEN) 12-210 ng/mL Performed By: #### 2 681917, 07015510, 9165159, 0178208, 46328198, 5763857, 1171487, 9222493 ####[facility] [address] [place] [address] Folateon 12-03-2022 Folate [Mass/Vol] 5.1 ng/mL Low >=6.7 [facility] Comment on above: Performed By: #### 2 928699, 87187857, 0425592, 4772344, 36965862, 3370301, 2311084, 5529250 ####[facility] [address] [place] [address] Inpatient Clinical Summaryon 12-03-2022 Inpatient Clinical Summary [place] [id number] Clinical Summary Person Information: Name: NADIA PATTERSON Age: 77 Years : 1945 Sex: Female PCP: HARPAL HAYES MD Marital Status: Phone: [phone] Race: White Ethnicity: Non- or Language: Mongolian Visit Id: Visit Reason: Weakness or fatigue; weak Speciality: Acuity: Enc Type: Inpatient Med Service: Medical Arrival: 12/02/2022 09:41:07 Discharge: Dispo Type: Address: [address] [place] [id number] Provider Notes: Diagnosis: 1:UTI (urinary tract infection); 2:Generalized weakness; 3:Self-care deficit; 4:Lactic acidosis; 5:Iron deficiency anemia; 6:HTN (hypertension); 7:HLD (hyperlipidemia); 8:Non-insulin dependent type 2 diabetes mellitus; 9:CKD (chronic kidney disease), stage III; 10:Dementia; 11:Hypothyroidism; 12:Chronic pain; 13:History of CVA in adulthood; 14:Morbid obesity; 15:On deep vein thrombosis (DVT) prophylaxis Problems Active UTI (urinary tract infection) Diabetes mellitus with polyneuropathy Left wrist pain Vitamin D deficiency Dementia Cerebrovascular small vessel disease Recurrent falls Fibromyalgia Smoking Status: Never Smoker Functional Status: Sensory Deficits: History of Falls: Within last three months Mobility Assistance Prior to Admission: Partial assistance ADLs: Moderate assistance Current Level of Assistance for Self-Care/Mobility: Cognitive Status: Oriented x 3 Allergies Stadol Measurements: Height: 149.86 cm Weight: 87.8 kg Blood Pressure: 148 mmHg / 72 mmHg BMI: 39.45 kg/m2 Procedures No Procedures Documented Immunizations No Immunizations Documented This Visit Final Med List: acetaminophen (acetaminophen 325 mg Tab) 2 Tablets By Mouth every 6 hours as needed Pain. not to exceed 4000 mg/day. acetaminophen-hydroc odone (acetaminophen-hydro codone 325 mg-5 mg oral tablet) 1 Tablets By Mouth 3 times a day as needed Pain 8-10 for 3 Days. Refills: 0. aspirin (aspirin 81 mg Oral EC Tab) 1 Tablets By Mouth every day. atorvastatin (atorvastatin 10 mg Tab) 1 Tablets By Mouth at bedtime. carvedilol (carvedilol 6.25 mg Tab) 1 Tablets By Mouth 2 times a day. Hold for sbp 110 or less or HR 55 or less. cefdinir (cefdinir 300 mg Cap) 1 Capsules By Mouth every 12 hours for 4 Days. Refills: 0. cetirizine (cetirizine 10 mg Tab) 1 Tablets By Mouth every day as needed allergies. cholecalciferol (cholecalciferol 10,000 intl units oral capsule) 1 Capsules By Mouth Tuesday. ferrous sulfate (ferrous sulfate 325 mg Tab) 1 Tablets By Mouth Tuesday. furosemide (furosemide 40 mg Tab) 1 Tablets By Mouth every day. insulin lispro 0-10 Units Subcutaneous four times a day (before meals and at bedtime). levothyroxine (levothyroxine 50 mcg (0.05 mg) Tab) 1 Tablets By Mouth every day. metformin (metformin 500 mg oral tablet) 1 Tablets By Mouth 2 times a day. nitroglycerin (nitroglycerin 0.4 mg sublingual Tab) 1 Tablets Sublingual every 5 minutes as needed for chest pain. nystatin topical (nystatin Top 100,000 units/g Pwdr) 1 Application Topical 2 times a day. polyethylene glycol 3350 (polyethylene glycol 3350 17 gram packet) 17 Gram By Mouth every day as needed Constipation. potassium chloride (Potassium Chloride (Eqv-K-Tab) 10 mEq oral tablet, extended release) 1 Tablets By Mouth 2 times a day. pregabalin (pregabalin 150 mg Cap) 1 Capsules By Mouth 2 times a day. G89.29 chronic pain. Refills: 0. ropinirole (ropinirole 4 mg oral tablet) 1 Tablets By Mouth Once daily with supper. trazodone (traZODONE 150 mg Tab) 1 Tablets By Mouth once a day (at bedtime). Care Team Members: Attending Physician: Emma SALINAS MD Consulting Physician: Hospitalist Post Disch, Results Reviewer Referring Physician: Follow up: With: Address: When: HARPAL HAYES [address] [place] [address] Business (1) Comments: Call for followup appointment when d/c from TCU Patient Education Information: Urinary Tract Infection, Adult, Prdy-hm-Fnae cefdinir 300 mg Cap Normal [facility] Inpatient Patient Summaryon 12-03-2022 Inpatient Patient Summary [address] [address] Patient Discharge Instructions PERSON INFORMATION Name: NADIA PATTERSON Date of : 1945 Current Date: 12/03/2022 10:47:19 PHYSICIANS Admitting Physician: Emma SALINAS MD Primary Care Physician: HARPAL HAYES MD PCP Comment: Discharge Diagnosis: 1:UTI (urinary tract infection); 2:Generalized weakness; 3:Self-care deficit; 4:Lactic acidosis; 5:Iron deficiency anemia; 6:HTN (hypertension); 7:HLD (hyperlipidemia); 8:Non-insulin dependent type 2 diabetes mellitus; 9:CKD (chronic kidney disease), stage III; 10:Dementia; 11:Hypothyroidism; 12:Chronic pain; 13:History of CVA in adulthood; 14:Morbid obesity; 15:On deep vein thrombosis (DVT) prophylaxis Condition at Discharge: Stable YESENIA NADIA Leittia has been given the following list of follow-up instructions, prescriptions, and patient education materials: PATIENT FOLLOW-UP INFORMATION Diet: Calorie Controlled- 2000 Calorie Diet, Fat Modified- Low cholesterol, Low Sodium- 2000 mg Discharge Activity: Ambulate as tolerated, Activity as tolerated Discharge Restrictions: No driving Wound Care Instructions: Remove Your Dressing In Days Call Your Doctor For: IF UNABLE TO CONTACT YOUR PHYSICIAN AND YOU FEEL IT IS AN EMERGENCY, GO TO THE NEAREST EMERGENCY ROOM OR CALL 911 Home Treatment: Blood glucose monitoring Devices/Equipment: None Special Services: Additional Instructions: Transfer to U Primary Care Physician to provide the following pending test results: Blood culture Follow up: With: Address: When: HARPAL HAYES [address] [place], [place] [id number] Business (1) Comments: Call for followup appointment when d/c from U In the event that this physician does not participate in your insurance network, please consult with your insurance company to find a nearby participating provider. Comment: YESENIA Fields EILEEN M, have received the attached patient education materials/instructio ns and have verbalized understanding: Patient Signature Date Clinican/Nurse Signature Date HERE ARE THE MEDICATION CHANGES THAT OCCURRED DURING YOUR HOSPITAL STAY New Medications [facility], [address] [facility] [place], [place] [id number], [phone] cefdinir (cefdinir 300 mg Cap) 1 Capsules By Mouth every 12 hours for 4 Days. Refills: 0. Last Dose: Next Dose: Other Medications acetaminophen (acetaminophen 325 mg Tab) 2 Tablets By Mouth every 6 hours as needed Pain. not to exceed 4000 mg/day. Last Dose: Next Dose: insulin lispro 0-10 Units Subcutaneous four times a day (before meals and at bedtime). Last Dose: Next Dose: Medications to Continue Taking That Have Changed Printed Prescriptions START: acetaminophen-hydroc odone (acetaminophen-hydro codone 325 mg-5 mg oral tablet) 1 Tablets By Mouth 3 times a day as needed Pain 8-10 for 3 Days. Refills: 0. Last Dose: Next Dose: STOP: acetaminophen-hydroc odone ([place] 5/325 Tab) By Mouth 3 times a day as needed as needed for pain. Other Medications START: carvedilol (carvedilol 6.25 mg Tab) 1 Tablets By Mouth 2 times a day. Hold for sbp 110 or less or HR 55 or less. Last Dose: Next Dose: STOP: carvedilol (carvedilol 6.25 mg Tab) 1 Tablets By Mouth 2 times a day. Medications to Continue with No Changes Other Medications aspirin (aspirin 81 mg Oral EC Tab) 1 Tablets By Mouth every day. Last Dose: Next Dose: atorvastatin (atorvastatin 10 mg Tab) 1 Tablets By Mouth at bedtime. Last Dose: Next Dose: cetirizine (cetirizine 10 mg Tab) 1 Tablets By Mouth every day as needed allergies. Last Dose: Next Dose: cholecalciferol (cholecalciferol 10,000 intl units oral capsule) 1 Capsules By Mouth Tuesday. Last Dose: Next Dose: ferrous sulfate (ferrous sulfate 325 mg Tab) 1 Tablets By Mouth Tuesday. Last Dose: Next Dose: furosemide (furosemide 40 mg Tab) 1 Tablets By Mouth every day. Last Dose: Next Dose: levothyroxine (levothyroxine 50 mcg (0.05 mg) Tab) 1 Tablets By Mouth every day. Last Dose: Next Dose: metformin (metformin 500 mg oral tablet) 1 Tablets By Mouth 2 times a day. Last Dose: Next Dose: nitroglycerin (nitroglycerin 0.4 mg sublingual Tab) 1 Tablets Sublingual every 5 minutes as (more content not included)... [facility] Interdisciplinary Note - [place] e Manageron 12-03-2022 Interdisciplinary Note - Toe Stapler Pt is awake, alert in bed, previously rounded with Akua MALDONADO. Pt is from home, current with [facility], recently DC from TCU 12/01. Pending therapy evals. Pt is agreeable to return to TCU if needed. Inpatient status reviewed, form signed and original provided. Declines need to call spouse, states he is still sleeping and will be here later. P tis aware referral will be sent to TCU and will update once acceptance known. will be ready to DC 12/05/22. CRM following. . PCP verified and insurance information reviewed and DME discussed. Contact information provided and white board updated. CRM returned to room, updated pt accepted to TCU and they can take whenever medically clear to DC. Declines need to call spouse or any further DC needs. [facility] Comment on above: Result Comment: Elec tronically Signed By: Cornelia TAVAREZ, Mei\.olaf\Date and Time Signed: 12/03/22 10:14 EDT Interdisciplinary Note - José n 12-03-2022 Interdisciplinary Note - OT OT 6 Clicks Score: =SNF. Main barriers to safe and functional performance are weakness, pain, and safety awareness. Pt requires Mod A to complete sit to stand transfer due to weakness and fatigue. OT to follow daily progressing as tolerates. SNF recommended for discharge to maximize Pt's independence. OT evaluation completed by Cecelia Torres/OT. Supervised and verified by Elizabeth Rocha OTR/L. Normal [facility] Ironon 12-03-2022 Iron [Mass/Vol] 56 microgram/dL Normal 35-153 [facility] Comment on above: Performed By: #### 2 366853, 35370995, 0042891, 8953933, 33724758, 4915475, 6602021, 9345538 ####[facility] [address] [place] [address] LDHon 12-03-2022 LDH [Catalytic activity/Vol] 143 Int._Unit/L Normal 93-218 [facility] Comment on above: Performed By: #### 2 105100, 66505541, 5614200, 7680920, 86563939, 9903430, 6752251, 3092215 ####[facility] [address] [place] [address] Lactic Acidon 12-03-2022 Lactate [Mass/Vol] 1.1 mmol/L Normal 0.5-2.2 [facility] Comment on above: Performed By: #### 1 [id number] #### [facility] [address] [place] [address] Message from Medicareon 11-06 Message from Medicare [id number] #1.00CD:127 Normal [facility] TIBC Calculatedon 12-03-2022 Iron binding capacity [Mass/Vol] 257 microgram/dL Normal 250-400 [facility] Comment on above: Performed By: #### 2 414216, 37350375, 0749019, 4912975, 77439862, 1172857, 1631672, 0207519 ####[facility] [address] [place] [address] Transferrin [Mass/Vol] 184 mg/dL Low 200-370 [facility] Comment on above: Performed By: #### 2 298402, 65160887, 9999192, 3729526, 00746434, 1659782, 3686489, 8569788 ####[facility] [address] [place] [address] Transfer Documentson 023 Transfer Documents [id number]#1.00CD:127 Normal [facility] Vit B12on 12-03-2022 Cobalamin (Vitamin B12) [Mass/Vol] 171 pg/mL Normal 50-1500 [facility] Comment on above: Performed By: #### 2 266896, 69669076, 2090458, 0977376, 94752490, 8217682, 9368067, 0977638 ####[facility] [address] [place] [address] eGFRon 12-03-2022 GFR/1.73 sq M.predicted among non-blacks MDRD (S/P/Bld) [Vol rate/Area] 51 mL/min/1.73 m2 Low >=59 [facility] Comment on above: Order Comment: Order added by Discern Expert. 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 Kidney failure is indicated at less than 15 mL/min/1.73m2. Performed By: #### 2 925089, 13048661, 8725373, 1905900, 02944578, 3778961, 6360793, 9424917 ####[facility] [address] [place] [address] Auto Diffon 12-02-2022 Basophils/100 WBC (Bld) 0.7 % Normal 0.0-2.0 [facility] Comment on above: Order Comment: Order Added by Discern Expert. Performed By: #### 2 [id number] #### [facility] [address] [place] [address] Basophils/Leukocytes Auto (Bld) [Pure # fraction] 0.1 E9/L Normal 0.0-0.2 [facility] Comment on above: Order Comment: Order Added by Discern Expert. Performed By: #### 2 [id number] #### [facility] [address] [place] [address] Eosinophils/100 WBC (Bld) 2.3 % Normal 0.0-8.0 [facility] Comment on above: Order Comment: Order Added by Discern Expert. Performed By: #### 2 [id number] #### [facility] [address] [place] [address] Eosinophils/Leukocytes Auto (Bld) [Pure # fraction] 0.2 E9/L Normal 0.0-0.5 [facility] Comment on above: Order Comment: Order Added by Discern Expert. Performed By: #### 2 [id number] #### [facility] [address] [place] [address] Lymphocytes/100 WBC (Bld) 18.1 % Normal 14.0-50.0 [facility] Comment on above: Order Comment: Order Added by Discern Expert. Performed By: #### 2 [id number] #### [facility] [address] [place] [address] Lymphocytes/Leukocytes Auto (Bld) [Pure # fraction] 1.4 E9/L Normal 1.0-4.0 [facility] Comment on above: Order Comment: Order Added by Roderick Expert. Performed By: #### 2 [id number] #### [facility] [address] [place] [address] Monocytes/100 WBC (Bld) 6.8 % Normal 4.0-14.0 [facility] Comment on above: Order Comment: Order Added by Discern Expert. Performed By: #### 2 [id number] #### [facility] [address] [place] [address] Monocytes/Leukocytes Auto (Bld) [Pure # fraction] 0.5 E9/L Normal 0.2-1.0 [facility] Comment on above: Order Comment: Order Added by Discern Expert. Performed By: #### 2 [id number] #### [facility] [address] [place] [address] Neutrophils/100 WBC (Bld) 72.1 % Normal 36.0-75.0 [facility] Comment on above: Order Comment: Order Added by Discern Expert. Performed By: #### 2 [id number] #### [facility] [address] [place] [address] Neutrophils/Leukocytes Auto (Bld) [Pure # fraction] 5.5 E9/L Normal 2.0-7.5 [facility] Comment on above: Order Comment: Order Added by Discern Expert. Performed By: #### 2 [id number] #### [facility] [address] [place] [address] BMPon 12-02-2022 Creatinine [Mass/Vol] 1.2 mg/dL Normal 0.5-1.3 [facility] Comment on above: Performed By: #### 2 [id number] #### [facility] [address] [place] [address] Urea nitrogen [Mass/Vol] 17 mg/dL Normal 5-21 [facility] Comment on above: Performed By: #### 2 [id number] #### [facility] [address] [place] [address] Urea nitrogen/Creatinine [Mass ratio] 14 No Units Normal 10-20 [facility] Comment on above: Performed By: #### 2 [id number] #### [facility] [address] [place] [address] Anion gap [Moles/Vol] 16 mmol/L Normal 6-16 [facility] Comment on above: Performed By: #### 2 [id number] #### [facility] [address] [place] [address] Calcium [Mass/Vol] 9.9 mg/dL Normal 8.9-11.1 [facility] Comment on above: Performed By: #### 2 [id number] #### [facility] [address] [place] [address] Chloride [Moles/Vol] 103 mmol/L Normal 101-111 [facility] Comment on above: Performed By: #### 2 [id number] #### [facility] [address] [place] [address] CO2 [Moles/Vol] 27 mmol/L Normal 21-31 [facility] Comment on above: Performed By: #### 2 [id number] #### [facility] [address] [place] [address] Glucose [Mass/Vol] 134 mg/dL Normal 55-199 [facility] Comment on above: Result Comment: If t his glucose result represents a fasting glucose, interpretation should refer to the following reference range: 55-99 mg/dL Performed By: #### 2 [id number] #### [facility] [address] [place] [address] Potassium [Moles/Vol] 4.1 mmol/L Normal 3.5-5.3 [facility] Comment on above: Performed By: #### 2 [id number] #### [facility] [address] [place] [address] Sodium [Moles/Vol] 142 mmol/L Normal 135-145 [facility] Comment on above: Performed By: #### 2 [id number] #### [facility] [address] [place] [address] CBC w/ Auto Diffon 3 Erythrocyte distribution width (RBC) [Ratio] 14.6 % High 10.9-14.2 [facility] Comment on above: Performed By: #### 2 [id number] #### [facility] [address] [place] [address] Hematocrit (Bld) [Volume fraction] 35.2 % Normal 34.0-46.0 [facility] Comment on above: Performed By: #### 2 [id number] #### [facility] [address] [place] [address] Hemoglobin (Bld) [Mass/Vol] 11.7 g/dL Low 12.0-16.0 [facility] Comment on above: Performed By: #### 2 [id number] #### [facility] [address] [place] [address] MCH (RBC) [Entitic mass] 30.0 pg Normal 27.0-34.0 [facility] Comment on above: Performed By: #### 2 [id number] #### [facility] [address] [place] [address] MCHC (RBC) [Mass/Vol] 33.2 g/dL Normal 31.4-36.0 [facility] Comment on above: Performed By: #### 2 [id number] #### [facility] [address] [place] [address] MCV (RBC) [Entitic vol] 90.4 fL Normal 80.0-100.0 [facility] Comment on above: Performed By: #### 2 [id number] #### [facility] [address] [place] [address] Platelet mean volume (Bld) [Entitic vol] 7.5 fL Normal 6.4-10.8 [facility] Comment on above: Performed By: #### 2 [id number] #### [facility] [address] [place] [address] Platelets (Bld) [#/Vol] 279.0 E9/L Normal 150.0-500.0 [facility] Comment on above: Performed By: #### 2 [id number] #### [facility] [address] [place] [address] RBC (Bld) [#/Vol] 3.9 E12/L Low 4.3-5.9 [facility] Comment on above: Performed By: #### 2 [id number] #### [facility] [address] [place] [address] WBC corrected for nucl RBC Auto (Bld) [#/Vol] 7.6 E9/L Normal 4.0-11.0 [facility] Comment on above: Performed By: #### 2 [id number] #### [facility] [address] [place] [address] Capillary Glucose POCon 11-05 Glucose [Mass/Vol] 148 mg/dL High 55-99 [facility] Comment on above: Result Comment: Michelle erickson RN/ Performed By: #### 2 [id number] ####[facility] [address] [place] [address] Glucose [Mass/Vol] 102 mg/dL High 55-99 [facility] Comment on above: Result Comment: Michelle erickson RN/ Performed By: #### 2 [id number] ####[facility] [address] [place] [address] Consent for Treatmenton 11-05 Consent for Treatment [id number] #[id number] Normal [facility] ED Clinical Summaryon 2022 ED Clinical Summary [address] [address] ED Clinical Summary Person Information Name: NADIA PATTERSON Swapna/[facility] Age: 77 Years : 1945 Sex: Female Language: Mongolian PCP: HARPAL HAYES MD Marital Status: Phone: [phone] Visit Id: Visit Reason: Weakness or fatigue; weak Speciality: Acuity: 3 Enc Type: Observation Med Service: Emergency Arrival: 12/02/2022 09:41:07 Discharge: 12/02/2022 15:22:58 LOS: 000 05:41 Checkin: 12/02/2022 09:41:07 Checkout: 12/02/2022 15:22:58 Dispo Type: Admitted as IP to this [facility] EVENTS: Event Name Event Status Request Date/Time Start Date/Time Complete Date/Time Arrive Complete 12/02/2022 09:41:07 12/02/2022 09:41:07 12/02/2022 09:41:07 Document Home Meds Complete 12/02/2022 09:41:07 12/02/2022 13:00:03 12/02/2022 13:00:03 Triage Complete 12/02/2022 09:41:07 12/02/2022 09:48:20 12/02/2022 09:48:20 Bed Assign Complete 12/02/2022 09:41:07 12/02/2022 09:41:07 12/02/2022 09:41:07 Dr Exam Complete 12/02/2022 09:41:07 12/02/2022 09:44:56 12/02/2022 09:44:56 RN Exam Complete 12/02/2022 09:41:07 12/02/2022 09:55:50 12/02/2022 09:55:50 Registration Complete 12/02/2022 09:44:56 12/02/2022 09:55:56 12/02/2022 09:55:56 Dr Exam Complete 12/02/2022 09:45:32 12/02/2022 09:45:32 12/02/2022 09:45:32 EKG Complete 12/02/2022 09:45:39 12/02/2022 09:52:19 Isolation Screening Complete 12/02/2022 09:48:21 12/02/2022 12:59:52 12/02/2022 12:59:52 30 Day Return Request 12/02/2022 09:48:21 Fall Risk Request 12/02/2022 09:55:51 Reg Complete Request 12/02/2022 09:55:56 Reg Bed Request Complete 12/02/2022 09:55:56 12/02/2022 09:55:56 12/02/2022 09:55:56 Meds Admin Cancel 12/02/2022 10:00:03 12/02/2022 11:38:00 Pending Labs Inlab 12/02/2022 10:00:03 Lab Inlab 12/02/2022 10:00:03 X-Ray Complete 12/02/2022 10:00:03 12/02/2022 10:34:19 12/02/2022 10:57:43 Pending Labs Complete 12/02/2022 10:56:26 12/02/2022 10:56:26 12/02/2022 11:23:21 Lab Complete 12/02/2022 10:56:26 12/02/2022 10:56:26 12/02/2022 11:23:21 Wet Read Request 12/02/2022 10:57:43 Pending Labs Complete 12/02/2022 11:00:32 12/02/2022 11:00:32 12/02/2022 11:00:41 Lab Complete 12/02/2022 11:00:32 12/02/2022 11:00:32 12/02/2022 11:00:41 Pending Labs Cancel 12/02/2022 11:13:38 12/02/2022 13:47:51 Lab Cancel 12/02/2022 11:13:38 12/02/2022 13:47:51 Pending Labs Cancel 12/02/2022 11:15:06 12/02/2022 13:47:51 Consult Request 12/02/2022 12:57:10 Meds Admin Complete 12/02/2022 12:57:15 12/02/2022 13:11:59 Hospitalist Consult Request 12/02/2022 12:57:15 Patient Care Request 12/02/2022 12:59:26 Patient Care Request 12/02/2022 12:59:26 Patient Care Request 12/02/2022 12:59:26 Patient Care Request 12/02/2022 12:59:27 Patient Care Request 12/02/2022 13:21:42 Pending Labs Request 12/02/2022 13:21:43 Lab Request 12/02/2022 13:21:43 Urine Collect Request 12/02/2022 13:21:43 Meds Admin Request 12/02/2022 13:21:43 RT Request 12/02/2022 13:21:43 RT Tx/ABG Request 12/02/2022 13:21:43 Bed Request Request 12/02/2022 13:21:43 Reg Bed Request Request 12/02/2022 13:21:43 Admit Request 12/02/2022 13:21:43 Meds Admin Request 12/02/2022 13:23:31 Pending Labs Request 12/02/2022 13:36:01 Lab Request 12/02/2022 13:36:01 Pending Labs Request 12/02/2022 13:52:04 Lab Request 12/02/2022 13:52:04 Meds Admin Request 12/02/2022 13:53:17 Patient Care Request 12/02/2022 13:53:17 Discharge Complete 12/02/2022 15:23:08 12/02/2022 15:23:08 12/02/2022 15:23:08 Transfer Complete 12/02/2022 15:23:08 12/02/2022 15:23:08 12/02/2022 15:23:08 ADDRESS: [address] [place] [id number] PHYS DOC NOTES: MEDICAL INFORMATION: Prescriptions Given: Medications to Continue with No Changes Other Medications aspirin (aspirin 81 mg Oral EC Tab) 1 Tablets By Mouth every day. atorvastatin (atorvastatin 10 mg Tab) 1 Tablets By Mouth at bedtime. carvedilol (carvedilol 6.25 mg Tab) 1 Tablets By Mouth 2 times a day. cetirizine (cetirizine 10 mg Tab) 1 Tablets By Mouth every day as needed allergies. cholecalciferol (cholecalciferol 10,000 intl units oral capsule) 1 Capsules By Mouth Tuesday. ciprofloxacin (ciprofloxacin 500 mg Tab) 1 Tablets By Mouth every 12 hours. Refills: 0. ferrous sulfate (ferrous sulfate 325 mg Tab) 1 Tablets By Mouth Tuesday. furosemide (furosemide 40 mg Tab) 1 Tablets By Mouth every day. levothyroxine (levothyroxine 50 mcg (0.05 mg) Tab) 1 Tablets By Mouth every day. metformin (metformin 500 mg oral tablet) 1 Tablets By Mouth 2 times a day. nitroglycerin (nitroglycerin 0.4 mg sublingual Tab) 1 Tablets Sublingual every 5 minutes as needed for chest pain. nystatin topical (nystatin Top 100,000 units/g Pwdr) 1 Application Topical 2 times a day. polyethylene glycol 3350 (polyethylene glycol 3350 17 gram packet) 17 Gram By Mouth every day as needed Constipation. potassium chloride (Potassium Chloride (Eqv-K-Tab) 10 mEq oral tablet, extended release) 1 Tablets (more content not included)... Normal [facility] ED Note-Physicianon 12-03-19 ED Note-Physician Basic Information Time Seen: Bayron Rao PA-C 12/02/2022 09:44 Chief Complaint pt discharged from hospital yesterday after fall. Pt to be seen this am for home health and physical thereapy but pt states she couldn't get out of bed. History of Present Illness 77-year-old female comes into the ED for evaluation of generalized weakness. She presents via EMS from home. She was sent in by home health nurse. Apparently she is being evaluated this morning was found to be profoundly weak and unable to ambulate. She was started on antibiotics yesterday for UTI. She admits to generalized weakness and fatigue, has no focal complaint on exam. Chart review does show that she was recently hospitalized, discharged home on 11/14, following weakness with UTI and associated fall. She had no new falls. She denies chest pain or shortness of breath. Denies any fever chills nausea vomiting. Review of Systems A 10 point review of systems is negative except as noted above. Medical and Surgical History: Reviewed and noted Social history: Lives at home Tobacco: Denies Physical Exam Vitals & Measurements T: 36.8 ?C(Oral) HR: 71(Peripheral) RR: 22 BP: 117/89 SpO2: 94% HT: 152 cm WT: 87.8 kg BMI: 38 Nurses notes and vital signs reviewed and patient is not hypoxic. General: Awake and alert, appears generally weak and deconditioned Skin: Warm, dry, no pallor noted. Head: Old appearing ecchymosis to the left temporal region Neck: No JVD. Eye: Normal conjunctiva. Ears, Nose, Mouth, and Throat: Moist mucous membranes Cardiovascular: Strong distal pulses. Chronic appearing lower extremity edema without overlying erythema or ecchymosis Chest wall: Respiratory: Respirations are nonlabored. Back: Normal range of motion, no CVA tenderness. Musculoskeletal: Normal ROM with no gross deformity. Velcro wrist splint to left wrist Gastrointestinal: Soft and nontender. Urological: Neurological: Awake and alert. No focal deficits. Follows commands. GCS 15. Psychiatric: Cooperative. Medical Decision Making Laboratory studies reviewed and noted. Patient does have a positive urinalysis and urine culture from 11/29. She was started on ciprofloxacin for this yesterday. Culture is growing greater than 100,000 colonizing units of pansensitive E. coli. She is started IV ceftriaxone. EKG shows no ischemic changes. Chest x-ray with no acute findings. Case is discussed with the hospitalist for admission. Assessment/Plan 1. UTI (urinary tract infection) (N39.0: Urinary tract infection, site not specified) 2. Weakness (R53.1: Weakness) Orders: ceftriaxone + Sodium Chloride 0.9% intravenous solution 50 mL, 1,000 mg = 1 EA, IV Piggyback, Once, Stop date 12/02/22 12:57:00 EDT, STAT, Start date 12/02/22 12:57:00 EDT, 100 mL/hr, Infuse over 30 minute(s), 12/02/22 12:57:00 EDT Automated Diff Basic Metabolic Panel Blood Culture Charcoal Blood Culture Charcoal CBC w/ Auto Diff ED Physician consult Hospitalist for continued care eGFR Lactic Acid Lactic Acid Troponin 0 Hr. XR Chest Single View Disposition Plan Patient Discharge Condition Disposition: Discharged home Condition: Improved and stable Counseled: Patient and/or family were counseled to workup, results, treatment plan and follow-up recommendations Discharge Prescription List Prescriptions ciprofloxacin 500 mg Tab, 500 mg= 1 tab(s), Oral, q12hr Follow-up No qualifying data available Attestation Patient seen and evaluated by the physician employee relations assistant. Attending physician was present in the emergency department and supervised care. This visit was performed by both the physician and an APC. I performed all aspects of the MDM as documented. This report was transcribed using voice recognition software. Every effort was made to ensure accuracy, however, inadvertently computerized brewery cellar worker mistakes may be present. Appropriate healthcare PPE was used in evaluating this patient. The patient was placed in a mask. The healthcare provider was wearing mask, gloves, and utilizing proper hand hygiene. All equipment was properly cleansed. Problem List/Past Medical History Ongoing Cerebrovascular small vessel disease Dementia Diabetes mellitus with polyneuropathy Fibromyalgia Left wrist pain Recurrent falls UTI (urinary tract infection) Vitamin D deficiency Historical Back pain Procedure/Surgical History None. Medications Inpatient Sodium Chloride 0.9% IV Marla 1000 mL 1,000 mL, 1000 mL, IV Home aspirin 81 mg Oral EC Tab, 81 mg= 1 tab(s), Oral, Daily atorvastatin 10 mg Tab, 10 mg= 1 tab(s), Oral, Daily carvedilol 6.25 mg Tab, 6.25 mg= 1 tab(s), Oral, BID cetirizine 10 mg Tab, 10 mg= 1 tab(s), Oral, Daily, PRN cholecalciferol 10,000 intl units oral capsule, 250 mcg= 1 cap(s), Oral, MonWedFri ciprofloxacin 500 mg Tab, 500 mg= 1 tab(s), Oral, q12hr ferrous sulfate 325 mg Tab, 325 mg= 1 tab(s), Oral, MonWedFri furosemide 40 mg Tab, 40 mg= 1 tab(s), Oral, D (more content not included)... Normal [facility] Comment on above: Result Comment: Elec tronically Signed By: Bayron Rao PA-C\.br\Date and Time Signed: 12/02/22 13:01 EDT\.br\Electronically Co-Signed By: Michele Marie DO\.br\Date and Time Co-Signed: 12/02/22 13:44 EDT ED Patient Education Noteon 12-02-2022 ED Patient Education Note Normal [facility] ED Patient Summaryon 023 ED Patient Summary [place] [id number] Patient Discharge Instructions Person Information Name: NADIA PATTERSON Age: 77 Years Arrival Date: 12/02/2022 09:41:07 Discharge Diagnosis: 1:UTI (urinary tract infection); 2:Generalized weakness; 3:Self-care deficit; 4:Lactic acidosis; 5:Iron deficiency anemia; 6:HTN (hypertension); 7:HLD (hyperlipidemia); 8:Non-insulin dependent type 2 diabetes mellitus; 9:CKD (chronic kidney disease), stage III; 10:Dementia; 11:Hypothyroidism; 12:Chronic pain; 13:History of CVA in adulthood; 14:Morbid obesity; 15:On deep vein thrombosis (DVT) prophylaxis Primary Care Physician: HARPAL HAYES MD Provider Information Primary Provider: Michele Marie DO Advanced Education Reporter:Bayron Rao PA-C The exam and treatment you received in the Emergency Department were for an urgent problem and are not intended as complete care. It is important that you follow up with a doctor, nurse practitioner, or physician?s employee relations assistant for ongoing care. If your symptoms become worse or you do not improve as expected and you are unable to reach your usual health care provider, you should return to the Emergency Department. We are available 24 hours a day. NADIA PATTERSON has been given the following list of patient education materials, prescriptions and follow-up instructions: Follow-up Instructions: In the event that this physician does not participate in your insurance network, please consult with your insurance company to find a nearby participating provider. Patient Education Materials: A MESSAGE TO ALL PATIENTS REGARDING OPIOIDS PRESCRIPTION OPIOIDS: WHAT YOU NEED TO KNOW Prescription opioids can be used to help relieve dwredivt-ch-truxsw pain and are often prescribed following a surgery or injury, or for certain health conditions. These medications can be an important part of the treatment but also come with serious risks. It is important to work with your healthcare provider to make sure you are getting the safest, most effective care. WHAT ARE THE RISKS AND SIDE EFFECTS OF OPIOID USE? Prescription opioids carry serious risks of addiction and overdose, especially with prolonged use. An opioid overdose, often marked by slowed breathing, can cause sudden . The use of prescription opioids can have a number of side effects as well, even when taken as directed: ? Tolerance?meaning you might need to take more of the medication for the same pain relief ? Physical dependence?meaning you have symptoms of withdrawal when a medication is stopped ? Increased sensitivity to pain ? Constipation ? Nausea, vomiting, and dry mouth ? Sleepiness and dizziness ? Confusion ? Depression ? Low levels of testosterone that can result in lower sex drive, energy, and strength ? Itching and sweating RISKS ARE GREATER WITH: ? History of drug misuse, substance use disorder, or overdose ? Mental health conditions (such as depression or anxiety) ? Sleep apnea ? Older age (65 years and older) ? Avoid alcohol while taking prescription opioids. Also, unless specifically advised by your health care provider, medications to avoid include: ? Benzodiazepines (such as Xanax or Valium) ? Muscle relaxants (such as Soma or Flexeril) ? Hypnotics (such as Ambien or Lunesta) ? Other prescription opioids KNOW YOUR OPTIONS Talk to your health care provider about ways to manage your pain that don?t involve prescription opioids. Some of these options may actually work better and have fewer risks and side effects. Options may include: ? Pain relievers such as acetaminophen, ibuprofen, and naproxen ? Some medication that are also used for depression or seizures ? Physical therapy and exercise ? Cognitive behavioral therapy, a psychological, goal-directed approach, in which patients learn how to modify physical, behavioral, and emotional triggers of pain and stress. IF YOU ARE PRESCRIBED OPIOIDS FOR PAIN: ? Never take opioids in greater amounts or more often than prescribed. ? Follow up with your primary health care provider. o Work together to create a plan on how to manage your pain. o Talk about ways to help manage your pain that don?t involve prescription opioids. o Talk about any and all concerns and side effects. ? Help prevent misuse and abuse o Never sell or share prescription opioids. o Never use another person?s prescription opioids. ? Store prescription opioids in a secure place and out of reach of others (this may include visitors, children, friends, and family). ? Safely dispose of unused prescription opioids: Find your community drug take-back program or your pharmacy mail-back program, or flush them down the toilet, following guidance from the Food and Drug Administration (www.fda.gov/Drugs/R esourcesForYou). ? Visit www.cdc.gov/drugover dose to learn about (more content not included)... Normal [facility] Lactic Acidon 12-02-2022 Lactate [Mass/Vol] 2.5 mmol/L High 0.5-2.2 [facility] Comment on above: Performed By: #### 2 [id number] #### [facility] [address] [place] [address] Pre-Arrival Noteon 3 Pre-Arrival Note Pre-Arrival Summary Name: , Current Date: 12/02/2022 09:41:36 EDT Gender: Female Date of : Age: 77 Pre-Arrival Type: EMS ETA: 12/02/2022 10:04:00 EDT Primary Care Physician: Presenting Problem: weak Pre-Arrival User: Romel Boland Referring Source: Location: [place] Completion Date/Time: 12/02/2022 09:34:00 [facility] Emergency Department Pre-Hospital Report Form Vital Signs: Pre-Hospital Report: Treatment in Route: Response to Treatment: Misc. Issues: Normal [facility] Retic Counton 12-02-2022 Reticulocytes/100 RBC (Bld) 2.0 % High 0.5-1.5 [facility] Comment on above: Order Comment: per o sborn, labs cannot be added on.[email or web address] 12/02/2022 16:41:27 EDT Performed By: #### 2 [id number] #### [facility] [address] [place] [address] Troponin 0 Hr.on 12-02-2022 Troponin I.cardiac [Mass/Vol] 5.70 pg/mL Low 10.10-27.10 [facility] Comment on above: Result Comment: The 95% CI (Confidence Interval) PPV (Positive Predictive Value) for myocardial infarction in females is 38 pg/mL, in males 51 pg/mL. The results should be used in conjunction with clinical conditions of myocardial infarction. (Access High Sensitivity Troponin I Instructions For Use, Impressto, January 2018) Performed By: #### 2 [id number] #### [facility] [address] [place] [address] XR Chest Single Viewon 12-02 XR Chest Single View Exam Date/Time: 12/02/2022 10:57 EDT Reason for Exam: Shortness of breath (SOB) Report IMPRESSION: There are no acute cardiopulmonary changes. CLINICAL HISTORY: Shortness of breath (SOB) EXAMINATION: XR Chest Single View COMPARISON: FINDINGS: The cardiomediastinal silhouette is unremarkable. The lungs are free of infiltrates effusions or consolidations. There are no acute osseous changes. Ordering Provider: Bayron Rao FINAL REPORT Dictated: 12/02/2022 11:08 am Santos Garcia MD, V. Signed (Electronic Signature): 12/02/2022 11:08 am Signed by: Santos Garcia MD, V. Transcribed by: SHALOM Technologist: TEJAS Technical Comments Radiation Dose: Ka,r in mGy = na DAP = na Normal [facility] eGFRon 12-02-2022 GFR/1.73 sq M.predicted among non-blacks MDRD (S/P/Bld) [Vol rate/Area] 46 mL/min/1.73 m2 Low >=59 [facility] Comment on above: Order Comment: Order added by Discern Expert. 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 Kidney failure is indicated at less than 15 mL/min/1.73m2. Performed By: #### 2 [id number] #### [facility] [address] [place] [address] C Urineon 12-01-2022 Bacteria identified Cx Nom (U) Microbiology PROCEDURE: Urine Culture [R1] SOURCE: U CleanCatch BODY SITE: COLLECTED DATE/TIME: 11/29/2022 15:46 EDT RECEIVED DATE/TIME: 11/29/2022 17:20 EDT START DATE/TIME: 11/29/2022 17:20 EDT FREE TEXT SOURCE: TOMASZ BRIGGS, Og TOLBERT MD, Og FINAL REPORTS Final Report [] Verified Date/Time: 12/01/2022 09:19 EDT >100,000 cfu/ml Escherichia coli SUSCEPTIBILITY RESULTS LEGEND: S=Susceptible, N/R=Not Reported, Blank=Data not available, or drug not advisable or tested, I=Intermediate, ESBL=Extended spectrum beta-lactamase, R=Resistant, TFG=Thymidine-depend ent strain, JOHNSON=Beta-lactamase positive, YESENIA=mcg/m;(mg/L), S*=Predicted susceptible interp, R*=Predicted resistant interp EC Antibiotic YESENIA Dilutn YESENIA Interp Amikacin <=16 S Ampicillin <=8 S Ampicillin/ <=8/4 S Sulbactam Aztreonam <=4 S Cefazolin <=2 S Cefepime <=2 S Cefoxitin <=8 S Ceftazidime <=1 S Ceftazidime/ <=8 S Avibactam Ceftriaxone <=1 S Ciprofloxacin <=1 S Ertapenem <=0.5 S Gentamicin <=4 S Levofloxacin <=2 S Meropenem <=1 S Nitrofurantoin <=32 S Piperacillin/ <=16 S Tazobactam Tetracycline <=4 S Tigecycline <=2 S Tobramycin <=4 S Trimethoprim/ <=2/38 S Sulfa Performing Locations R1: This test was performed at: [facility], [address] [place] [address], [facility]- , , Normal [facility] Comment on above: Performed By: #### 1 [id number] #### [facility] [address] [place] [address] Family Medicine Office/Clini c Noteon 12-01-2022 Family Medicine Office/Clinic Note Chief Complaint TCU Discharge History of Present Illness Patient is being seen today for a discharge visit. TCU ADMIT from [facility] 11/11 - Multiple falls recently , last face first into shower. Main c/o left wrist pain, xray neg for fx. Here for ST rehab stay. Hb ADmit 12.8 --> 11.7 Admit Cr 2.4 --> 1.2 eGFR 46 A1c 6.9 PMHx- Chronic neck/back pain, fibromyalgia, HTN, DM, CKD3b, CAD, hypothyroid, benign essential head tremor, RA. [1] Patient is pleasant on exam. Appetite and bowels moving appropriately. Uses wlaker for ambulation. No patient needs or concerns at this time. Review of Systems as per HPI. all other ROS neg. Physical Exam General: in NAD, nontoxic appearance. Afebrile. Eyes: JONNIE. Conjunctivae and sclerae normal Mouth: No erythema, no palatal inflammation, no PND,nl tonsils,nocobbleston ing. Neck: Nontender, no anterior adenopathy Lungs: No respiratory distress or conversational dyspnea. CTA._ Cardio: Regular rate and rhythm without murmur Abdomen: not assessed Skin: No rash Mental Status: Alert and oriented x3. Normal mood and affect Assessment/Plan Home Health Ravq-dn-Aclz Encounter Type: Medicare Reason for Vtco-fi-Qnyk (Diagnosis): DISCHARGE DIAGNOSIS Encounter Detail I certify that I conducted and documented that a gdgg-uj-jyll (F2F) encounter with the consumer occurred within the 90 days prior to the home health services start of care date, or within 30 days following the start of care date (inclusive of the start of care date), preceding the certification of medical necessity. Residential: Yes Physical Therapy: Yes Occupational Therapy: Yes Speech Therapy: No Green Chain Operator: Yes Installation Engineer: Yes Need for Home Health Services I certify based on my findings that... a. Home health services are medically necessary for this patient, including either intermittent group home and/or therapy, AND b. The patient cannot leave his/her home due to the following reasons: Musculoskeletal - _weakness, decreased functional ADL's My clinical finding(s) support the need for these services because: _weakness, decreased functional ADL's Certificate of Medical Necessity for Home Health Medicare Requirement I certify that I am the qualifying treating provider for the above-named consumer and that the consumer needs medically necessary home health services for the treatment of consumer's illness or injury that are appropriate for the consumer's diagnosis, prognosis, functional and medical conditions. 1. Left wrist pain (M25.532: Pain in left wrist) Splint intact. Continue with pain medicine [place] 5mg/325mg q6 prn. Follow up with orthopedics. 2. Dementia (F03.90: Unspecified dementia, unspecified severity, without behavioral disturbance, psychotic disturbance, mood disturbance, and anxiety) Mood stable. 3. UTI (urinary tract infection) (N39.0: Urinary tract infection, site not specified) Finishing course of Cipro 500mg bid needs ten doses remaining. Orders: ciprofloxacin, 500 mg = 1 tab(s), Oral, q12hr, # 10 tab(s), Refills(s) 0, Pharmacy: [id number], 152, cm, 11/10/22 21:21:00 EDT, Height/Length Dosing, 83, kg, 11/10/22 21:21:00 EDT, Weight Dosing Follow-up No qualifying data available Problem List/Past Medical History Ongoing Cerebrovascular small vessel disease Dementia Diabetes mellitus with polyneuropathy Fibromyalgia Left wrist pain Recurrent falls UTI (urinary tract infection) Vitamin D deficiency Historical Back pain Procedure/Surgical History None. Medications aspirin 81 mg Oral EC Tab, 81 mg= 1 tab(s), Oral, Daily atorvastatin 10 mg Tab, 10 mg= 1 tab(s), Oral, Daily carvedilol 6.25 mg Tab, 6.25 mg= 1 tab(s), Oral, BID cetirizine 10 mg Tab, 10 mg= 1 tab(s), Oral, Daily, PRN cholecalciferol 10,000 intl units oral capsule, 250 mcg= 1 cap(s), Oral, MonWedFri ciprofloxacin 500 mg Tab, 500 mg= 1 tab(s), Oral, q12hr ferrous sulfate 325 mg Tab, 325 mg= 1 tab(s), Oral, MonWedFri furosemide 40 mg Tab, 40 mg= 1 tab(s), Oral, Daily levothyroxine 50 mcg (0.05 mg) Tab, 50 mcg= 1 tab(s), Oral, Daily metformin 500 mg oral tablet, 500 mg= 1 tab(s), Oral, BID nitroglycerin 0.4 mg sublingual Tab, 0.4 mg= 1 tab(s), SubLingual, q5min, PRN [place] 325 mg-5 mg oral tablet, 1 tab(s), Oral, q6hr, PRN nystatin Top 100,000 units/g Pwdr, 1 chantal, Topical, BID polyethylene glycol 3350 17 gram packet, Oral, Daily Potassium Chloride (Eqv-K-Tab) 10 mEq oral tablet, extended release, 10 mEq= 1 tab(s), Oral, BID pregabalin 150 mg Cap, 150 mg= 1 cap(s), Oral, BID ropinirole 4 mg oral tablet, 4 mg= 1 tab(s), Oral, Supper traZODONE 150 mg Tab, 150 mg= 1 tab(s), Oral, Once a day (at bedtime) Allergies Stadol Social History Alcohol - Denies Alcohol Use, 10/07/2015 Substance Abuse - Denies Substance Abuse, 10/13/2015 Tobacco - Denies Tobacco Use, 10/07/2015 Family History Acute myocardial infarction: Mother and Father. Diabete (more content not included)... Normal [facility] Comment on above: Result Comment: Elec tronically Signed By: Nadege Hylton\Date and Time Signed: 12/01/22 14:00 EDT AZTREONAM:SUSC:PT:ISOLATE:OR DQN:MICOrdered By: Jasmin Desai on 11-29-2022 Aztreonam YESENIA [Susc] >100,000 cfu/ml Escherichia coli [facility] Aztreonam YESENIA [Susc]Ordered By: Jasmin Desai on 11-29-2022 Escherichia coli Escherichia coli Fi [facility] UA With Cult Reflexon 2022 Bacteria LM Ql (Urine sed) 3+ /HPF Abnormal Trace [facility] Comment on above: Performed By: #### 1 [id number] #### [facility] [address] [place] [address] Bilirubin Ql (U) Negative Normal Negative [facility] Comment on above: Performed By: #### 1 [id number] #### [facility] [address] [place] [address] Clarity (U) SL CLOUDY Abnormal Clear [facility] Comment on above: Performed By: #### 1 [id number] #### [facility] [address] [place] [address] Color (U) YELLOW Normal Yellow [facility] Comment on above: Performed By: #### 1 [id number] #### [facility] [address] [place] [address] Epithelial cells.squamous LM.HPF (Urine sed) [#/Area] 0-2 Normal 0-2 [facility] Comment on above: Performed By: #### 1 [id number] #### [facility] [address] [place] [address] Glucose Test strip (U) [Mass/Vol] Negative Normal Negative [facility] Comment on above: Performed By: #### 1 [id number] #### [facility] [address] [place] [address] Hemoglobin Ql (U) Negative Normal Negative [facility] Comment on above: Performed By: #### 1 [id number] #### [facility] [address] [place] [address] Ketones (U) [Mass/Vol] Negative Normal Negative [facility] Comment on above: Performed By: #### 1 [id number] #### [facility] [address] [place] [address] [place].plasma/[place].R BC (Bld) [Mass ratio] 0-3 Normal 0-3 [facility] Comment on above: Performed By: #### 1 [id number] #### [facility] [address] [place] [address] Nitrite Ql (U) Positive Abnormal Negative [facility] Comment on above: Performed By: #### 1 [id number] #### [facility] [address] [place] [address] pH (U) 5.5 [pH] Invalid Interpretation Code 5.0-9.0 [facility] Comment on above: Performed By: #### 1 [id number] #### [facility] [address] [place] [address] Protein (U) [Mass/Vol] Negative Normal Negative [facility] Comment on above: Performed By: #### 1 [id number] #### [facility] [address] [place] [address] Specific gravity (U) [Rel density] 1.010 Invalid Interpretation Code 1.005-1.030 [facility] Comment on above: Performed By: #### 1 [id number] #### [facility] [address] [place] [address] Type of Urine collection method Clean Catch Normal [facility] Comment on above: Performed By: #### 1 [id number] #### [facility] [address] [place] [address] Urobilinogen Qn (U) 0.2 {Macie'U}/dL Normal 0.0-1.0 [facility] Comment on above: Performed By: #### 1 [id number] #### [facility] [address] [place] [address] WBC Auto Ql (U) 1+ Abnormal Negative [facility] Comment on above: Performed By: #### 1 [id number] #### [facility] [address] [place] [address] WBC LM.HPF (Urine sed) [#/Area] /[HPF] Abnormal 0-5 [facility] Comment on above: Performed By: #### 1 [id number] #### [facility] [address] [place] [address] URINALYSISOrdered By: Yara Monroy on 11-29-2022 Bacteria LM Ql (Urine sed) 3+ /HPF Invalid Interpretation Code Trace/HPF [facility] UA Auto SS Bilirubin Ql (U) Negative (11/29/22 3:46 PM) Normal Negative [facility] UA Auto SS Clarity (U) Slightly Cloudy *ABN* (11/29/22 3:46 PM) Invalid Interpretation Code Clear [facility] UA Auto SS Color (U) Yellow (11/29/22 3:46 PM) Normal Yellow [facility] UA Auto SS Epithelial cells.squamous LM.HPF (Urine sed) [#/Area] 0-2 /HPF Normal 0-2/HPF [facility] UA Aut o SS Glucose Test strip (U) [Mass/Vol] Negative (11/29/22 3:46 PM) Normal Negative [facility] UA Auto SS Hemoglobin Ql (U) Negative (11/29/22 3:46 PM) Normal Negative [facility] UA Auto SS Ketones (U) [Mass/Vol] Negative (11/29/22 3:46 PM) Normal Negative [facility] UA Auto SS [place].plasma/[place].R BC (Bld) [Mass ratio] 0-3 /HPF Normal 0-3/HPF [facility] UA Au to SS Nitrite Ql (U) Positive *ABN* (11/29/22 3:46 PM) Invalid Interpretation Code Negative [facility] UA Auto SS pH (U) 5.5 *NA* (11/29/22 3:46 PM) Invalid Interpretation Code 5.0 - 9.0 [facility] UA Auto SS Protein (U) [Mass/Vol] Negative (11/29/22 3:46 PM) Normal Negative [facility] UA Auto SS Specific gravity (U) [Rel density] 1.010 *NA* (11/29/22 3:46 PM) Invalid Interpretation Code 1.005 - 1.030 [facility] UA Auto SS UA Spec Desc Clean Catch (11/29/22 3:46 PM) Normal [facility] UA Auto SS Urobilinogen Qn (U) 0.1639990 {Macie'U}/dL Normal 0.0 - 1.0 EU/dL [facility] UA Auto SS WBC Auto Ql (U) 1+ *ABN* (11/29/22 3:46 PM) Invalid Interpretation Code Negative [facility] UA Auto SS WBC LM.HPF (Urine sed) [#/Area] /[HPF] Invalid Interpretation Code 0-5/HPF [facility] UA Auto SS Prison Recordson 11-26 Prison Records [id number]# 1.00CD:127 Normal [facility] Family Medicine Office/Clini c Noteon 11-16-2022 Family Medicine Office/Clinic Note History of Present Illness TCU ADMIT from [facility] 11/11 Multiple falls recently , last face first into shower. Main c/o left wrist pain, xray neg for fx. Here for ST rehab stay. Hb ADmit 12.8 --> 11.7 Admit Cr 2.4 --> 1.2 eGFR 46 A1c 6.9 PMHx- Chronic neck/back pain, fibromyalgia, HTN, DM, CKD3b, CAD, hypothyroid, benign essential head tremor, RA. PCP Harpal Hayes MD [place] [facility] Solo lives with in [place]. Dtr helps with meds Physical Exam Elderly WF seated in recliner. Alert, somewhat pleasantly confused- is oriented initially to person and place but on further repeat questioning gets flustered and unable to answer some of same questions. Poor historian for meds. Cooperative for exam. brownish ecchymoses to left forehead and alevism. Lungs CTA Ht RRR wo murmur Abd nondistended no distal edema but cries out on my touching BLE Left wrist swollen, pinkish. Very sensitive to touch of carpals (but not so much 1st compartment), metacarpals and MTP's. Assessment/Plan 1. Recurrent falls (R29.6: Repeated falls) ST rehab stay 2. Left wrist pain (M25.532: Pain in left wrist) Her main complaint consider wrist splint for comfort [place] prn 3. Cerebrovascular small vessel disease (I67.9: Cerebrovascular disease, unspecified) on CT brain 4. Dementia (F03.90: Unspecified dementia, unspecified severity, without behavioral disturbance, psychotic disturbance, mood disturbance, and anxiety) mild Vascular?? baseline unknown, poor historian for meds, events 5. Coronary artery disease (I25.10: Atherosclerotic heart disease of knik coronary artery without angina pectoris) Pt denies knowledge but is on asa, coreg, statin, lasix 40 Unknown why Mag Oxide 400 was entered on admit med rec as TThSS x 7 days?? 6. Vitamin D deficiency (E55.9: Vitamin D deficiency, unspecified) Pt supposedly on 10,000 units MWF?? This would be 30,000 weekly well above general recommendations of 800 per day. 7. Diabetes mellitus with polyneuropathy (E11.42: Type 2 diabetes mellitus with diabetic polyneuropathy) metformin 500 bid, pregabalin 150 bid A1c 6.9 Unsure why ropinirole 4 mg at HS DNR [facility] Follow-up No qualifying data available Problem List/Past Medical History Ongoing Cerebrovascular small vessel disease Dementia Diabetes mellitus with polyneuropathy Fibromyalgia Left wrist pain Recurrent falls Vitamin D deficiency Historical Back pain Procedure/Surgical History None. Medications aspirin 81 mg Oral EC Tab, 81 mg= 1 tab(s), Oral, Daily atorvastatin 10 mg Tab, 10 mg= 1 tab(s), Oral, Daily carvedilol 6.25 mg Tab, 6.25 mg= 1 tab(s), Oral, BID cetirizine 10 mg Tab, 10 mg= 1 tab(s), Oral, Daily, PRN cholecalciferol 10,000 intl units oral capsule, 250 mcg= 1 cap(s), Oral, MonWedFri ferrous sulfate 325 mg Tab, 325 mg= 1 tab(s), Oral, MonWedFri furosemide 40 mg Tab, 40 mg= 1 tab(s), Oral, Daily levothyroxine 50 mcg (0.05 mg) Tab, 50 mcg= 1 tab(s), Oral, Daily magnesium oxide 400 mg Tab, 400 mg= 1 tab(s), Oral, TueThSaSu metformin 500 mg oral tablet, 500 mg= 1 tab(s), Oral, BID nitroglycerin 0.4 mg sublingual Tab, 0.4 mg= 1 tab(s), SubLingual, q5min, PRN [place] 325 mg-5 mg oral tablet, 1 tab(s), Oral, q6hr, PRN nystatin Top 100,000 units/g Pwdr, 1 chantal, Topical, BID polyethylene glycol 3350 17 gram packet, Oral, Daily Potassium Chloride (Eqv-K-Tab) 10 mEq oral tablet, extended release, 10 mEq= 1 tab(s), Oral, BID pregabalin 150 mg Cap, 150 mg= 1 cap(s), Oral, BID ropinirole 4 mg oral tablet, 4 mg= 1 tab(s), Oral, Supper traZODONE 150 mg Tab, 150 mg= 1 tab(s), Oral, Once a day (at bedtime) Allergies Stadol Social History Alcohol - Denies Alcohol Use, 10/07/2015 Substance Abuse - Denies Substance Abuse, 10/13/2015 Tobacco - Denies Tobacco Use, 10/07/2015 Family History Acute myocardial infarction: Mother and Father. Diabetes mellitus type 2: Sister. Hypertension: Brother. Primary malignant neoplasm of colon: Brother. Sleep apnea: Spouse. Normal [facility] Comment on above: Result Comment: Elec tronically Signed By: TOMASZ BRIGGS, Og\.br\Date and Time Signed: 11/15/22 22:43 EDT Discharge Instructionson Discharge Instructions [id number]# 1.00CD:127 Normal [facility] Message from Medicareon 11-04 Message from Medicare [id number]# 1.00CD:127 Normal [facility] Capillary Glucose POCon 11-04 Glucose [Mass/Vol] 127 mg/dL High 55-99 [facility] Comment on above: Result Comment: Michelle erickson RN/ Performed By: #### 2 [id number] ####[facility] [address] [place] [address] Glucose [Mass/Vol] 124 mg/dL High 55-99 [facility] Comment on above: Result Comment: Michelle erickson RN/ Performed By: #### 2 [id number] #### [facility] [address] [place] [address] Inpatient Patient Summaryon 11-14-2022 Inpatient Patient Summary NADIA PATTERSON :1945 Visit Date:11/10/2022 Inpatient Discharge Instructions Your Care Team Admitting Physician - Tyson COLEMAN DO Reason for Your Visit fall Your Diagnosis Fall Weakness, Weakness, Weakness Closed head injury Hyperlipidemia, unspecified, Hyperlipidemia, unspecified, Hyperlipidemia Acute kidney injury superimposed on chronic kidney disease Elevated lactic acid level Diabetes Hypothyroidism Left wrist pain Chronic pain Hypertension Obesity Chronic kidney disease, unspecified Closed head injury without LOC Dizziness Multiple falls Tests Performed ABO/Rh Antibody Screen Automated Diff BMP BMP C-Reactive Protein Capillary Glucose POC CBC w/ Auto Diff CPK Drug Screen Urine eGFR Ethanol Level Hepatic Function Panel HgbA1c Lactic Acid Lipase Level Magnesium Level PT & PTT Troponin TSH With T4fr Reflex Urinalysis with Culture Reflex CT Abdomen/Pelvis w/o Contrast CT C-Spine w/o Contrast CT Chest w/o Contrast CT Head or Brain w/o Contrast CT Maxillofacial w/o Contrast XR Hand 3+ Views Left XR Wrist 3+ Views Left This Is Your Medications List acetaminophen-hydroc odone ([place] 325 mg-5 mg oral tablet) aspirin (aspirin 81 mg Chew Tab) atorvastatin (atorvastatin 10 mg Tab) carvedilol (carvedilol 6.25 mg Tab) cetirizine (cetirizine 10 mg Tab) cholecalciferol (cholecalciferol 10,000 intl units oral capsule) docusate (docusate calcium 240 mg Cap) ferrous sulfate (ferrous sulfate 325 mg Tab) furosemide (furosemide 40 mg Tab) levothyroxine (levothyroxine 50 mcg (0.05 mg) Tab) magnesium oxide (magnesium oxide 400 mg Tab) metformin (metformin 500 mg oral tablet) nitroglycerin (nitroglycerin 0.4 mg sublingual Tab) nystatin topical (nystatin Top 100,000 units/g Pwdr) polyethylene glycol 3350 (polyethylene glycol 3350 17 gram packet) potassium chloride (Potassium Chloride (Eqv-K-Tab) 10 mEq oral tablet, extended release) pregabalin (pregabalin 150 mg Cap) ropinirole (ropinirole 4 mg oral tablet) trazodone (traZODONE 150 mg Tab) Procedure History None. Discharge Vitals Temperature (Oral) 36.6 ?C Heart Rate (Monitored) 66 Respiratory Rate 18 Blood Pressure 110/61 Weight 86.3 kg What to do next Instructions From Your Doctor Event Name Event Result Discharge Restrictions No driving Discharge Diet(s) Low Sodium- 2000 mg Pending Diagnostic Test Results None [facility] New Follow Up Appointments after Discharge Follow Up with HARPAL HAYES When: Within 7 to 10 days Comments: Call for followup appointment Call physician if symptoms worsen Where: [facility] [place] [address]- Business (1) Medications What How Much When Why Instructions Next Dose New acetaminophen-hydroc odone ([place] 325 mg-5 mg oral tablet) 1 Tablets By Mouth Every 6 hours as needed for for pain Left wrist pain Printed Prescription NEEDED New polyethylene glycol 3350 (polyethylene glycol 3350 17 gram packet) By Mouth Every day NEEDED Changed levothyroxine (levothyroxine 50 mcg (0.05 mg) Tab) 1 Tablets By Mouth Every day 11/14 @AM Unchanged aspirin (aspirin 81 mg Chew Tab) 1 Tablets Chewed Every day 11/15 Unchanged atorvastatin (atorvastatin 10 mg Tab) 1 Tablets By Mouth Every day 11/15 Unchanged carvedilol (carvedilol 6.25 mg Tab) 1 Tablets By Mouth 2 times a day 11/14 @ 9PM Unchanged cetirizine (cetirizine 10 mg Tab) 1 Tablets By Mouth Every day 11/15 Unchanged cholecalciferol (cholecalciferol 10,000 intl units oral capsule) 1 Capsules By Mouth 11/15 Unchanged docusate (docusate calcium 240 mg Cap) 1 Capsules By Mouth Every day 11/15 Unchanged ferrous sulfate (ferrous sulfate 325 mg Tab) 1 Tablets By Mouth 11/15 Unchanged furosemide (furosemide 40 mg Tab) 1 Tablets By Mouth Every day 11/15 Unchanged magnesium oxide (magnesium oxide 400 mg Tab) 1 Tablets By Mouth Tuesday, , Tuesday & Tuesday Duration: 7 Days 11/14 @6PM Unchanged metformin (metformin 500 mg oral tablet) 1 Tablets By Mouth 2 times a day RESUME Unchanged nitroglycerin (nitroglycerin 0.4 mg sublingual Tab) 1 Tablets Sublingual Every 5 minutes as needed for for chest pain NEEDED Unchanged nystatin topical (nystatin Top 100,000 units/ g Pwdr) 1 Application Topical 2 times a day RESUME Unchanged potassium chloride (Potassium Chloride (Eqv-K-Tab) 10 mEq oral tablet, extended release) 1 Tablets By Mouth 2 times a day RESUME Unchanged pregabalin (pregabalin 150 mg Cap) 1 Capsules By Mouth 2 times a day 11/14 @9PM Unchanged ropinirole (ropinirole 4 mg oral tablet) 1 Tablets By Mouth Every day Unchanged trazodone (traZODONE 150 mg Tab) 1 Tablets By Mouth Once a day (at bedtime) Test Results CBC BMP WBC: 7.1 E9/L (11/12/22 05:57:00) Glucose Lvl: 124 mg/dL (11/13/22 06:41:00 (more content not included)... Normal [facility] BMPon 11-13-2022 Anion gap [Moles/Vol] 9 mmol/L Normal 6-16 [facility] Comment on above: Performed By: #### 2 [id number] #### [facility] [address] [place] [address] Calcium [Mass/Vol] 9.3 mg/dL Normal 8.9-11.1 [facility] Comment on above: Performed By: #### 2 [id number] #### [facility] [address] [place] [address] Chloride [Moles/Vol] 107 mmol/L Normal 101-111 [facility] Comment on above: Performed By: #### 2 [id number] #### [facility] [address] [place] [address] CO2 [Moles/Vol] 27 mmol/L Normal 21-31 [facility] Comment on above: Performed By: #### 2 [id number] #### [facility] [address] [place] [address] Creatinine [Mass/Vol] 1.2 mg/dL Normal 0.5-1.3 [facility] Comment on above: Performed By: #### 2 [id number] #### [facility] [address] [place] [address] Glucose [Mass/Vol] 124 mg/dL Normal 55-199 [facility] Comment on above: Result Comment: If t his glucose result represents a fasting glucose, interpretation should refer to the following reference range: 55-99 mg/dL Performed By: #### 2 [id number] #### [facility] [address] [place] [address] Potassium [Moles/Vol] 4.2 mmol/L Normal 3.5-5.3 [facility] Comment on above: Performed By: #### 2 [id number] #### [facility] [address] [place] [address] Sodium [Moles/Vol] 139 mmol/L Normal 135-145 [facility] Comment on above: Performed By: #### 2 [id number] #### [facility] [address] [place] [address] Urea nitrogen [Mass/Vol] 11 mg/dL Normal 5-21 [facility] Comment on above: Performed By: #### 2 [id number] #### [facility] [address] [place] [address] Urea nitrogen/Creatinine [Mass ratio] 9 No Units Low 10-20 [facility] Comment on above: Performed By: #### 2 [id number] #### [facility] [address] [place] [address] Capillary Glucose POCon 11-04 0-2022 Glucose [Mass/Vol] 144 mg/dL High 55-99 [facility] Comment on above: Result Comment: Michelle erickson RN/ Performed By: #### 2 [id number] #### [facility] [address] [place] [address] Glucose [Mass/Vol] 141 mg/dL High 55-99 [facility] Comment on above: Result Comment: Michelle PACHECO Performed By: #### 2 [id number] ####[facility] [address] [place] [address] Glucose [Mass/Vol] 153 mg/dL High 55-99 [facility] Comment on above: Result Comment: Michelle PACHECO Performed By: #### 2 [id number] #### [facility] [address] [place] [address] Glucose [Mass/Vol] 135 mg/dL High 55-99 [facility] Comment on above: Result Comment: Michelle PACHECO Performed By: #### 2 [id number] #### [facility] [address] [place] [address] Inpatient Clinical Summaryon 11-13-2022 Inpatient Clinical Summary [address] [id number] Clinical Summary Person Information: Name: NADIA PATTERSON Age: 77 Years : 1945 Sex: Female PCP: HARPAL HAYES MD Marital Status: Phone: [phone] Race: White Ethnicity: Non- or Language: Mongolian Visit Id: Visit Reason: Closed head injury without LOC; Multiple falls; Dizziness; MULTIPLE FALLS, CLOSED HEAD INJURY WITHOUT LOC, DIZZINESS Speciality: Acuity: Enc Type: Inpatient Med Service: Medical Arrival: 11/10/2022 21:12:12 Discharge: Dispo Type: Admitted as IP to this [facility] Address: [address] [place] [id number] Provider Notes: Diagnosis: 1:Fall; 2:Closed head injury; 3:Weakness; 4:Acute kidney injury superimposed on chronic kidney disease; 5:Elevated lactic acid level; 6:Diabetes; 7:Hyperlipidemia; 8:Hypothyroidism; 9:Left wrist pain; 10:Chronic pain; 11:Hypertension; 12:Obesity; Chronic kidney disease, unspecified Problems No Problems Documented Smoking Status: Never Smoker Functional Status: Sensory Deficits: History of Falls: Immediately prior to hospitalization Mobility Assistance Prior to Admission: Partial assistance ADLs: Moderate assistance Current Level of Assistance for Self-Care/Mobility: Cognitive Status: Oriented x 3 Allergies Stadol Measurements: Height: 149.86 cm Weight: 84.1 kg Blood Pressure: 144 mmHg / 80 mmHg BMI: 38.29 kg/m2 Procedures No Procedures Documented Immunizations No Immunizations Documented This Visit Final Med List: acetaminophen-hydroc odone ([place] 325 mg-5 mg oral tablet) 1 Tablets By Mouth every 6 hours as needed for pain. Refills: 0. aspirin (aspirin 81 mg Chew Tab) 1 Tablets Chewed every day. atorvastatin (atorvastatin 10 mg Tab) 1 Tablets By Mouth every day. carvedilol (carvedilol 6.25 mg Tab) 1 Tablets By Mouth 2 times a day. cetirizine (cetirizine 10 mg Tab) 1 Tablets By Mouth every day. cholecalciferol (cholecalciferol 10,000 intl units oral capsule) 1 Capsules By Mouth Tuesday. docusate (docusate calcium 240 mg Cap) 1 Capsules By Mouth every day. ferrous sulfate (ferrous sulfate 325 mg Tab) 1 Tablets By Mouth Tuesday. furosemide (furosemide 40 mg Tab) 1 Tablets By Mouth every day. levothyroxine (levothyroxine 50 mcg (0.05 mg) Tab) 1 Tablets By Mouth every day. magnesium oxide (magnesium oxide 400 mg Tab) 1 Tablets By Mouth Tuesday, , Tuesday & Tuesday for 7 Days. metformin (metformin 500 mg oral tablet) 1 Tablets By Mouth 2 times a day. nitroglycerin (nitroglycerin 0.4 mg sublingual Tab) 1 Tablets Sublingual every 5 minutes as needed for chest pain. nystatin topical (nystatin Top 100,000 units/g Pwdr) 1 Application Topical 2 times a day. polyethylene glycol 3350 (polyethylene glycol 3350 17 gram packet) By Mouth every day. potassium chloride (Potassium Chloride (Eqv-K-Tab) 10 mEq oral tablet, extended release) 1 Tablets By Mouth 2 times a day. pregabalin (pregabalin 150 mg Cap) 1 Capsules By Mouth 2 times a day. ropinirole (ropinirole 4 mg oral tablet) 1 Tablets By Mouth every day. trazodone (traZODONE 150 mg Tab) 1 Tablets By Mouth once a day (at bedtime). Care Team Members: Attending Physician: Tyson COLEMAN DO Consulting Physician: Referring Physician: Follow up: With: Address: When: HARPAL HAYES [address] [place], [place] [id number] [facility] (1) Within 7 to 10 days Comments: Call for followup appointment Call physician if symptoms worsen Patient Education Information: Weakness; Fall Prevention in Hospitals, Adult; Fall Prevention in the Home, Adult; Acute Kidney Injury, Adult Normal [facility] Inpatient Patient Summaryon 11-13-2022 Inpatient Patient Summary [address] [address] Patient Discharge Instructions PERSON INFORMATION Name: NADIA PATTERSON Date of : 1945 Current Date: 11/13/2022 08:43:04 PHYSICIANS Admitting Physician: Tyson COLEMAN DO Primary Care Physician: HARPAL HAYES MD PCP Comment: Discharge Diagnosis: 1:Fall; 2:Closed head injury; 3:Weakness; 4:Acute kidney injury superimposed on chronic kidney disease; 5:Elevated lactic acid level; 6:Diabetes; 7:Hyperlipidemia; 8:Hypothyroidism; 9:Left wrist pain; 10:Chronic pain; 11:Hypertension; 12:Obesity; Chronic kidney disease, unspecified Condition at Discharge: Stable NADIA PATTERSON has been given the following list of follow-up instructions, prescriptions, and patient education materials: PATIENT FOLLOW-UP INFORMATION Diet: Low Sodium- 2000 mg Discharge Activity: Discharge Restrictions: No driving Wound Care Instructions: Remove Your Dressing In Days Call Your Doctor For: IF UNABLE TO CONTACT YOUR PHYSICIAN AND YOU FEEL IT IS AN EMERGENCY, GO TO THE NEAREST EMERGENCY ROOM OR CALL 911 Home Treatment: Devices/Equipment: Blood glucose monitor, Walker - front wheeled Special Services: Additional Instructions: Primary Care Physician to provide the following pending test results: None Follow up: With: Address: When: HARPAL FREDDY [address] [place], [place] [id number] [facility] (1) Within 7 to 10 days Comments: Call for followup appointment Call physician if symptoms worsen In the event that this physician does not participate in your insurance network, please consult with your insurance company to find a nearby participating provider. Comment: YESENIA Fields EILEEN M, have received the attached patient education materials/instructio ns and have verbalized understanding: Patient Signature Date Clinican/Nurse Signature Date HERE ARE THE MEDICATION CHANGES THAT OCCURRED DURING YOUR HOSPITAL STAY New Medications Printed Prescriptions acetaminophen-hydroc odone ([place] 325 mg-5 mg oral tablet) 1 Tablets By Mouth every 6 hours as needed for pain. Refills: 0. Last Dose: Next Dose: Other Medications polyethylene glycol 3350 (polyethylene glycol 3350 17 gram packet) By Mouth every day. Last Dose: Next Dose: Medications to Continue Taking That Have Changed Other Medications START: levothyroxine (levothyroxine 50 mcg (0.05 mg) Tab) 1 Tablets By Mouth every day. Last Dose: Next Dose: STOP: levothyroxine (levothyroxine 50 mcg (0.05 mg) oral tablet) Medications to Continue with No Changes Other Medications aspirin (aspirin 81 mg Chew Tab) 1 Tablets Chewed every day. Last Dose: Next Dose: atorvastatin (atorvastatin 10 mg Tab) 1 Tablets By Mouth every day. Last Dose: Next Dose: carvedilol (carvedilol 6.25 mg Tab) 1 Tablets By Mouth 2 times a day. Last Dose: Next Dose: cetirizine (cetirizine 10 mg Tab) 1 Tablets By Mouth every day. Last Dose: Next Dose: cholecalciferol (cholecalciferol 10,000 intl units oral capsule) 1 Capsules By Mouth Tuesday. Last Dose: Next Dose: docusate (docusate calcium 240 mg Cap) 1 Capsules By Mouth every day. Last Dose: Next Dose: ferrous sulfate (ferrous sulfate 325 mg Tab) 1 Tablets By Mouth Tuesday. Last Dose: Next Dose: furosemide (furosemide 40 mg Tab) 1 Tablets By Mouth every day. Last Dose: Next Dose: magnesium oxide (magnesium oxide 400 mg Tab) 1 Tablets By Mouth Tuesday, , Tuesday & Tuesday for 7 Days. Last Dose: Next Dose: metformin (metformin 500 mg oral tablet) 1 Tablets By Mouth 2 times a day. Last Dose: Next Dose: nitroglycerin (nitroglycerin 0.4 mg sublingual Tab) 1 Tablets Sublingual every 5 minutes as needed for chest pain. Last Dose: Next Dose: nystatin topical (nystatin Top 100,000 units/g Pwdr) 1 Application Topical 2 times a day. Last Dose: Next Dose: potassium chloride (Potassium Chloride (Eqv-K-Tab) 10 mEq oral tablet, extended release) 1 Tablets By Mouth 2 times a day. Last Dose: Next Dose: pregabalin (pregabalin 150 mg Cap) 1 Capsules By Mouth 2 times a day. Last Dose: Next D (more content not included)... Normal [facility] Progress Note-Physicianon Progress Note-Physician Assessment/Plan 77-year-old female with past medical history of rheumatoid arthritis, CKD stage IIIb, type 2 diabetes mellitus, hypertension, hypothyroidism, hyperlipidemia presented from home due to generalized weakness and fall. Patient was treated for UTI at [facility] and given Bactrim. Her GFR is around 36. She was referred to hospitalist service for generalized weakness and fall. On admission UA was negative and she was mildly dehydrated with acute kidney injury on chronic kidney disease. 1. Fall (W19.XXXA: Unspecified fall, initial encounter) PT OT recommended rehabilitation No traumatic pathology identified on x-ray Appreciate PT OT input Ordered: [facility] Hospital Care/Day Moderate 35 Minutes 28605 1. Weakness, (R53.1: Weakness)Weakness, (R53.1: Weakness)Weakness Improved Continue with rehabilitation and daily PT OT Ordered: [facility] Hospital Care/Day Moderate 35 Minutes 28442 2. Closed head injury (S09.90XA: Unspecified injury of head, initial encounter) Imaging negative Ordered: [facility] Hospital Care/Day Moderate 35 Minutes 38205 2. Hyperlipidemia, unspecified, (E78.5: Hyperlipidemia, unspecified)Hyperlip idemia, unspecified, (E78.5: Hyperlipidemia, unspecified)Hyperlip idemia Continue with atorvastatin 4. Acute kidney injury superimposed on chronic kidney disease (N17.9: Acute kidney failure, unspecified) Resolved Creatinine is 1.2 with GFR increased to 42 Baseline creatinine and GFR around 36 as per daughter Follows up with measurement specialist at [facility] Patient should avoid Bactrim 5. Elevated lactic acid level (R79.89: Other specified abnormal findings of blood chemistry) Resolved 6. Diabetes (E11.9: Type 2 diabetes mellitus without complications) Accu-Chek with sliding scale insulin 8. Hypothyroidism (E03.9: Hypothyroidism, unspecified) Levothyroxine 9. Left wrist pain (M25.532: Pain in left wrist) Supportive care Likely sprain related Imaging negative 10. Chronic pain (G89.29: Other chronic pain) Multimodality pain control 11. Hypertension (I10: Essential (primary) hypertension) Coreg 12. Obesity (E66.9: Obesity, unspecified) Lifestyle modification Chronic kidney disease, unspecified (N18.9: Chronic kidney disease, unspecified) Creatinine close to baseline Orders: Basic Metabolic Panel eGFR Extra Lav Tube Plan discussed with patient at bedside and spoke with daughter over the phone Moderate level of MDM based on addressing above issues This report was transcribed using voice recognition software. Every effort was made to ensure accuracy, however, inadvertently computerized brewery cellar worker mistakes may be present. Jeff Sutton Hospitalist Subjective Doing well. Using a bedside commode. Spoke to her daughter yesterday. Kidney function is doing better today Objective Vitals & Measurements T: 36.8 ?C(Oral) TMIN: 36.6 ?C(Oral) TMAX: 37.3 ?C(Oral) HR: 75(Monitored) RR: 16 BP: 144/80 SpO2: 91% WT: 84.1 kg Intake & Output This visit (24 hour periods starting at 07:00 EDT) 11/13/22 * 11/12/22 11/11/22 Total Summary Intake mL -- 538.9 891 Output mL -- -- 300 Fluid Balance -- 538.9 591 Intake (2) Oral Intake mL -- 480 816 Sodium Chloride 0.9% intravenous solution 1,000 mL mL -- 58.9 75 Total -- 538.9 891 Output (1) Urine Voided mL -- -- 300 Total -- -- 300 Counts (1) Urine Count 1 1 1 * This column has not completed the indicated time period. Physical Exam General: alert, no acute distress on Room air ENMT: TM's clear, oral mucosa moist, no pharyngeal erythema or exudate Cardiovascular: regular rate and rhythm, normal peripheral perfusion Respiratory: Lungs CTA, respirations non labored Abdomen: Soft, nontender, without rebound or rigidity, positive bowel sounds Extremities: Some swelling of left wrist. Genitourinary: Deferred Skin: Intact Hematological: No signs of large bruising/ecchymosis or petechiae Neurological: oriented x 4, LOC appropriate for age, CN II-XII intact, motor strength equal & normal bilaterally, sensation equal & normal bilaterally, speech normal Psych: Denies suicidal ideation or homicidal ideation Lab Results Glucose Lvl: 124 mg/dL (11/13/22 06:41:00) BUN: 11 mg/dL (11/13/22 06:41:00) Creatinine: 1.2 mg/dL (11/13/22 06:41:00) eGFR: 46 mL/min/1.73 m2 Low (11/13/22 06:41:00) BUN/Creat Ratio: 9 Low (11/13/22 06:41:00) Sodium Lvl: 139 mmol/L (11/13/22 06:41:00) Potassium Lvl: 4.2 mmol/L (11/13/22 06:41:00) Chloride: 107 mmol/L (11/13/22 06:41:00) CO2: 27 mmol/L (11/13/22 06:41:00) AGAP: 9 mEq/L (11/13/22 06:41:00) Calcium Lvl: 9.3 mg/dL (11/13/22 06:41:00) Glucose Cap: 135 mg/dL High (11/13/22 07:55:00) POC Device SN: [id number] (11/13/22 07:55:00) POC User ID: [id number] (11/13/22 07:55:00) POC Username: ROBERT BENITEZ (11/13/22 07:55:00) Problem List/Past Medical History Ongoing No qualifying data (more content not included)... Normal [facility] Comment on above: Result Comment: Elec tronically Signed By: Jeff SUTTON MD P\.br\Date and Time Signed: 11/13/22 08:40 EDT eGFRon 11-13-2022 GFR/1.73 sq M.predicted among non-blacks MDRD (S/P/Bld) [Vol rate/Area] 46 mL/min/1.73 m2 Low >=59 [facility] Comment on above: Order Comment: Order added by Discern Expert. 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 Kidney failure is indicated at less than 15 mL/min/1.73m2. Performed By: #### 2 [id number] #### [facility] [address] [place] [address] Auto Diffon 11-12-2022 Basophils/100 WBC (Bld) 0.6 % Normal 0.0-2.0 [facility] Comment on above: Order Comment: Order Added by Discern Expert. Performed By: #### 2 [id number] #### [facility] [address] [place] [address] Basophils/Leukocytes Auto (Bld) [Pure # fraction] 0.0 E9/L Normal 0.0-0.2 [facility] Comment on above: Order Comment: Order Added by Discern Expert. Performed By: #### 2 [id number] #### [facility] [address] [place] [address] Eosinophils/100 WBC (Bld) 1.4 % Normal 0.0-8.0 [facility] Comment on above: Order Comment: Order Added by Discern Expert. Performed By: #### 2 [id number] #### [facility] [address] [place] [address] Eosinophils/Leukocytes Auto (Bld) [Pure # fraction] 0.1 E9/L Normal 0.0-0.5 [facility] Comment on above: Order Comment: Order Added by Discern Expert. Performed By: #### 2 [id number] #### [facility] [address] [place] [address] Lymphocytes/100 WBC (Bld) 22.4 % Normal 14.0-50.0 [facility] Comment on above: Order Comment: Order Added by Discern Expert. Performed By: #### 2 [id number] #### [facility] [address] [place] [address] Lymphocytes/Leukocytes Auto (Bld) [Pure # fraction] 1.6 E9/L Normal 1.0-4.0 [facility] Comment on above: Order Comment: Order Added by Discern Expert. Performed By: #### 2 [id number] #### [facility] [address] [place] [address] Monocytes/100 WBC (Bld) 11.5 % Normal 4.0-14.0 [facility] Comment on above: Order Comment: Order Added by Discern Expert. Performed By: #### 2 [id number] #### [facility] [address] [place] [address] Monocytes/Leukocytes Auto (Bld) [Pure # fraction] 0.8 E9/L Normal 0.2-1.0 [facility] Comment on above: Order Comment: Order Added by Discern Expert. Performed By: #### 2 [id number] #### [facility] [address] [place] [address] Neutrophils/100 WBC (Bld) 64.1 % Normal 36.0-75.0 [facility] Comment on above: Order Comment: Order Added by Discern Expert. Performed By: #### 2 [id number] #### [facility] [address] [place] [address] Neutrophils/Leukocytes Auto (Bld) [Pure # fraction] 4.5 E9/L Normal 2.0-7.5 [facility] Comment on above: Order Comment: Order Added by Discern Expert. Performed By: #### 2 [id number] #### [facility] [address] [place] [address] BMPon 11-12-2022 Anion gap [Moles/Vol] 9 mmol/L Normal 6-16 [facility] Comment on above: Performed By: #### 2 [id number] #### [facility] [address] [place] [address] Calcium [Mass/Vol] 8.6 mg/dL Low 8.9-11.1 [facility] Comment on above: Performed By: #### 2 [id number] #### [facility] [address] [place] [address] Chloride [Moles/Vol] 107 mmol/L Normal 101-111 [facility] Comment on above: Performed By: #### 2 [id number] #### [facility] [address] [place] [address] CO2 [Moles/Vol] 27 mmol/L Normal 21-31 [facility] Comment on above: Performed By: #### 2 [id number] #### [facility] [address] [place] [address] Creatinine [Mass/Vol] 1.4 mg/dL High 0.5-1.3 [facility] Comment on above: Performed By: #### 2 [id number] #### [facility] [address] [place] [address] Glucose [Mass/Vol] 164 mg/dL Normal 55-199 [facility] Comment on above: Result Comment: If t his glucose result represents a fasting glucose, interpretation should refer to the following reference range: 55-99 mg/dL Performed By: #### 2 [id number] #### [facility] [address] [place] [address] Potassium [Moles/Vol] 3.7 mmol/L Normal 3.5-5.3 [facility] Comment on above: Performed By: #### 2 [id number] #### [facility] [address] [place] [address] Sodium [Moles/Vol] 139 mmol/L Normal 135-145 [facility] Comment on above: Performed By: #### 2 [id number] #### [facility] [address] [place] [address] Urea nitrogen [Mass/Vol] 15 mg/dL Normal 5-21 [facility] Comment on above: Performed By: #### 2 [id number] #### [facility] [address] [place] [address] Urea nitrogen/Creatinine [Mass ratio] 11 No Units Normal 10-20 [facility] Comment on above: Performed By: #### 2 [id number] #### [facility] [address] [place] [address] CBC w/ Auto Diffon 3 Erythrocyte distribution width (RBC) [Ratio] 14.9 % High 10.9-14.2 [facility] Comment on above: Performed By: #### 2 [id number] #### [facility] [address] [place] [address] Hematocrit (Bld) [Volume fraction] 35.5 % Normal 34.0-46.0 [facility] Comment on above: Performed By: #### 2 [id number] #### [facility] [address] [place] [address] Hemoglobin (Bld) [Mass/Vol] 11.7 g/dL Low 12.0-16.0 [facility] Comment on above: Performed By: #### 2 [id number] #### [facility] [address] [place] [address] MCH (RBC) [Entitic mass] 29.8 pg Normal 27.0-34.0 [facility] Comment on above: Performed By: #### 2 [id number] #### [facility] [address] [place] [address] MCHC (RBC) [Mass/Vol] 33.0 g/dL Normal 31.4-36.0 [facility] Comment on above: Performed By: #### 2 [id number] #### [facility] [address] [place] [address] MCV (RBC) [Entitic vol] 90.1 fL Normal 80.0-100.0 F [facility] Comment on above: Performed By: #### 2 [id number] #### [facility] [address] [place] [address] Platelet mean volume (Bld) [Entitic vol] 7.8 fL Normal 6.4-10.8 [facility] Comment on above: Performed By: #### 2 [id number] #### [facility] [address] [place] [address] Platelets (Bld) [#/Vol] 215.0 E9/L Normal 150.0-500.0 [facility] Comment on above: Performed By: #### 2 [id number] #### [facility] [address] [place] [address] RBC (Bld) [#/Vol] 3.9 E12/L Low 4.3-5.9 [facility] Comment on above: Performed By: #### 2 [id number] #### [facility] [address] [place] [address] WBC corrected for nucl RBC Auto (Bld) [#/Vol] 7.1 E9/L Normal 4.0-11.0 [facility] Comment on above: Performed By: #### 2 [id number] #### [facility] [address] [place] [address] Capillary Glucose POCon Glucose [Mass/Vol] 143 mg/dL High 55-99 [facility] Comment on above: Result Comment: Michelle eirckson RN/ Performed By: #### 1 [id number] #### [facility] [address] [place] [address] Glucose [Mass/Vol] 146 mg/dL High 55-99 [facility] Comment on above: Result Comment: Michelle PACHECO Performed By: #### 2 [id number] #### [facility] [address] [place] [address] Glucose [Mass/Vol] 132 mg/dL High 55-99 [facility] Comment on above: Result Comment: Michelle PACHECO Performed By: #### 2 [id number] #### [facility] [address] [place] [address] Magnesiumon 11-12-2022 Magnesium [Mass/Vol] 1.5 mg/dL Normal 1.3-2.4 [facility] Comment on above: Performed By: #### 2 [id number] #### [facility] [address] [place] [address] Monitor Recordon 11-12-2022 Monitor Record [id number] 7#1.00CD:127 Normal [facility] Monitor Record [id number] 5#1.00CD:127 Normal [facility] Monitor Record [id number] 2#1.00CD:127 Normal [facility] Progress Note-Physicianon Progress Note-Physician Assessment/Plan 77-year-old female with past medical history of rheumatoid arthritis, CKD stage IIIb, type 2 diabetes mellitus, hypertension, hypothyroidism, hyperlipidemia presented from home due to generalized weakness and fall. Patient was treated for UTI at [facility] and given Bactrim. Her GFR is around 36. She was referred to hospitalist service for generalized weakness and fall. On admission UA was negative and she was mildly dehydrated with acute kidney injury on chronic kidney disease. 1. Fall (W19.XXXA: Unspecified fall, initial encounter) Imaging negative including the left hand x-ray Left wrist x-ray done is negative PT OT evaluation Patient walks with a front wheel walker Underlying acute kidney injury has resolved Ordered: acetaminophen-hydroc odone, 1 tab(s), Tab, Oral, q6hr PRN Pain for 5 day(s), Stop date 11/16/22 10:06:00 EDT, Routine, Start date 11/11/22 10:07:00 EDT 1. Weakness, (R53.1: Weakness)Weakness, (R53.1: Weakness)Weakness Generalized weakness secondary to recent UTI 2. Closed head injury (S09.90XA: Unspecified injury of head, initial encounter) Imaging negative 2. Hyperlipidemia, unspecified, (E78.5: Hyperlipidemia, unspecified)Hyperlip idemia, unspecified, (E78.5: Hyperlipidemia, unspecified)Hyperlip idemia Continue with statin 4. Acute kidney injury superimposed on chronic kidney disease (N17.9: Acute kidney failure, unspecified) Creatinine is improving Patient with CKD stage IIIb and follows up with nephrology in [facility] Follow-up with them as outpatient Avoid nephrotoxic agent Ordered: potassium chloride, 40 mEq = 2 tab(s), Tab-ER, Oral, Once, Stop date 11/11/22 8:00:00 EDT, Routine, Start date 11/11/22 8:00:00 EDT, 11/11/22 7:34:00 EDT 5. Elevated lactic acid level (R79.89: Other specified abnormal findings of blood chemistry) Resolved 6. Diabetes (E11.9: Type 2 diabetes mellitus without complications) Accu-Chek with sliding scale insulin Ordered: insulin lispro, 0-10 Units, Injection-Insulin, SubCutaneous, QIDACHS, Routine, Start date 11/11/22 11:30:00 EDT Diabetic/Calorie Control Diet Routine Capillary Glucose POC 8. Hypothyroidism (E03.9: Hypothyroidism, unspecified) Levothyroxine 9. Left wrist pain (M25.532: Pain in left wrist) States that tramadol is not working [place] order PT OT Ice pack as needed 10. Chronic pain (G89.29: Other chronic pain) Multimodality pain control 11. Hypertension (I10: Essential (primary) hypertension) Resume blood pressure medication 12. Obesity (E66.9: Obesity, unspecified) Lifestyle modification Chronic kidney disease, unspecified (N18.9: Chronic kidney disease, unspecified) Orders: aspirin, 81 mg = 1 tab(s), Tab-Chew, Chewed, Daily, Routine, Start date 11/12/22 9:00:00 EDT, 11/11/22 14:04:00 EDT atorvastatin, 10 mg = 0.5 tab(s), Tab, Oral, Daily, Routine, Start date 11/12/22 9:00:00 EDT, 11/11/22 14:04:00 EDT carvedilol, 6.25 mg = 1 tab(s), Tab, Oral, BID, Routine, Start date 11/11/22 21:00:00 EDT, 11/11/22 14:04:00 EDT cholecalciferol, 250 mcg = 2 tab(s), Tab, Oral, MonWedFri, Routine, Start date 11/12/22 18:00:00 EDT, 11/11/22 14:05:00 EDT docusate, 100 mg = 1 cap(s), Cap, Oral, BID PRN Constipation, Routine, Start date 11/11/22 14:05:00 EDT, 11/11/22 14:05:00 EDT ferrous sulfate, 325 mg = 1 tab(s), Tab, Oral, MonWedFri, Routine, Start date 11/12/22 18:00:00 EDT, 11/11/22 14:05:00 EDT levothyroxine, 50 mcg = 1 tab(s), Tab, Oral, Daily, Routine, Start date 11/12/22 6:30:00 EDT, 11/11/22 14:05:00 EDT loratadine, 10 mg = 1 tab(s), Tab, Oral, Daily, Routine, Start date 11/12/22 9:00:00 EDT, 11/11/22 14:05:00 EDT magnesium oxide, 400 mg = 1 tab(s), Tab, Oral, TueThSaSu, Routine, Start date 11/11/22 18:00:00 EDT, 11/11/22 14:06:00 EDT polyethylene glycol 3350, 17 gram = 1 EA, Powder-Recon, Oral, Daily, Routine, Start date 11/11/22 11:00:00 EDT potassium chloride, Tab-ER, Misc, Once, Stop date 11/11/22 10:30:17 EDT, Physician Stop, 11/11/22 10:30:17 EDT pregabalin, 150 mg = 1 cap(s), Cap, Oral, BID, Routine, Start date 11/11/22 21:00:00 EDT, 11/11/22 14:06:00 EDT ropinirole, 4 mg = 4 tab(s), Tab, Oral, Daily, Routine, Start date 11/12/22 9:00:00 EDT, 11/11/22 14:06:00 EDT tramadol, 50 mg = 1 tab(s), Tab, Oral, q12hr PRN Pain for 7 day(s), Stop date 11/18/22 13:02:00 EDT, Routine, Start date 11/11/22 13:03:00 EDT trazodone, 150 mg = 3 tab(s), Tab, Oral, Once a day (at bedtime), Routine, Start date 11/11/22 21:00:00 EDT, 11/11/22 14:06:00 EDT Automated Diff Basic Metabolic Panel CBC w/ Auto Diff eGFR Magnesium Level Occupational Therapy Additional Tx Occupational Therapy Evaluate Patient, Develop a Plan of Care and Implement Plan Referral to Resource Center XR Wrist 3+ Views Left Plan discussed with patient at bedside Disposition: Discharge to group home facility when able to. Moderate level of MDM based on addressing above issues This report was transcribed using voice rec (more content not included)... Normal [facility] Comment on above: Result Comment: Elec tronically Signed By: LESLEY BRIGGS, Jeff Stoll\.br\Date and Time Signed: 11/12/22 08:42 EDT eGFRon 11-12-2022 GFR/1.73 sq M.predicted among non-blacks MDRD (S/P/Bld) [Vol rate/Area] 39 mL/min/1.73 m2 Low >=59 [facility] Comment on above: Order Comment: Order added by Discern Expert. 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 Kidney failure is indicated at less than 15 mL/min/1.73m2. Performed By: #### 2 [id number] #### [facility] [address] [place] [address] ABO/Rhon 11-11-2022 ABO/Rh Negative Invalid Interpretation Code [facility] Comment on above: Performed By: #### 1 [id number], [id number], [id number], [id number] ####[facility] [address] [place] [address] ABO/Rh History Checkon 11-11 ABO/Rh History Check Verified Hx Blood Type Normal [facility] Comment on above: Performed By: #### 1 [id number], [id number], [id number], [id number] ####[facility] [address] [place] [address] ABSCon 11-11-2022 ABSC Gel Interp Negative Normal [facility] Comment on above: Order Comment: pt in ct will get labs when they return [id number] 11/10/2022 21:43:26 EDT Performed By: #### 1 [id number], [id number], [id number], [id number] ####[facility] [address] [place] [address] Auth for Release of Medical Recordson 11-11-2022 Auth for Release of Medical Records [id number] 1#[id number]:[id number] Normal [facility] Auto Diffon 11-11-2022 Basophils/100 WBC (Bld) 1.2 % Normal 0.0-2.0 [facility] Comment on above: Order Comment: Order Added by Discern Expert. Performed By: #### 2 [id number] #### [facility] [address] [place] [address] Basophils/Leukocytes Auto (Bld) [Pure # fraction] 0.1 E9/L Normal 0.0-0.2 [facility] Comment on above: Order Comment: Order Added by Discern Expert. Performed By: #### 2 [id number] #### [facility] [address] [place] [address] Eosinophils/100 WBC (Bld) 2.6 % Normal 0.0-8.0 [facility] Comment on above: Order Comment: Order Added by Discern Expert. Performed By: #### 2 [id number] #### [facility] [address] [place] [address] Eosinophils/Leukocytes Auto (Bld) [Pure # fraction] 0.2 E9/L Normal 0.0-0.5 [facility] Comment on above: Order Comment: Order Added by Discern Expert. Performed By: #### 2 [id number] #### [facility] [address] [place] [address] Lymphocytes/100 WBC (Bld) 33.6 % Normal 14.0-50.0 [facility] Comment on above: Order Comment: Order Added by Discern Expert. Performed By: #### 2 [id number] #### [facility] [address] [place] [address] Lymphocytes/Leukocytes Auto (Bld) [Pure # fraction] 2.2 E9/L Normal 1.0-4.0 [facility] Comment on above: Order Comment: Order Added by Discern Expert. Performed By: #### 2 [id number] #### [facility] [address] [place] [address] Monocytes/100 WBC (Bld) 8.4 % Normal 4.0-14.0 [facility] Comment on above: Order Comment: Order Added by Discern Expert. Performed By: #### 2 [id number] #### [facility] [address] [place] [address] Monocytes/Leukocytes Auto (Bld) [Pure # fraction] 0.5 E9/L Normal 0.2-1.0 [facility] Comment on above: Order Comment: Order Added by Discern Expert. Performed By: #### 2 [id number] #### [facility] [address] [place] [address] Neutrophils/100 WBC (Bld) 54.2 % Normal 36.0-75.0 [facility] Comment on above: Order Comment: Order Added by Discern Expert. Performed By: #### 2 [id number] #### [facility] [address] [place] [address] Neutrophils/Leukocytes Auto (Bld) [Pure # fraction] 3.5 E9/L Normal 2.0-7.5 [facility] Comment on above: Order Comment: Order Added by Discern Expert. Performed By: #### 2 [id number] #### [facility] [address] [place] [address] Basophils/100 WBC (Bld) 0.8 % Normal 0.0-2.0 [facility] Comment on above: Order Comment: Order Added by Discern Expert. Performed By: #### 2 [id number] #### [facility] [address] [place] [address] Basophils/Leukocytes Auto (Bld) [Pure # fraction] 0.0 E9/L Normal 0.0-0.2 [facility] Comment on above: Order Comment: Order Added by Discern Expert. Performed By: #### 2 [id number] #### [facility] [address] [place] [address] Eosinophils/100 WBC (Bld) 2.0 % Normal 0.0-8.0 [facility] Comment on above: Order Comment: Order Added by Discern Expert. Performed By: #### 2 [id number] #### [facility] [address] [place] [address] Eosinophils/Leukocytes Auto (Bld) [Pure # fraction] 0.1 E9/L Normal 0.0-0.5 [facility] Comment on above: Order Comment: Order Added by Discern Expert. Performed By: #### 2 [id number] #### [facility] [address] [place] [address] Lymphocytes/100 WBC (Bld) 27.0 % Normal 14.0-50.0 [facility] Comment on above: Order Comment: Order Added by Discern Expert. Performed By: #### 2 [id number] #### [facility] [address] [place] [address] Lymphocytes/Leukocytes Auto (Bld) [Pure # fraction] 1.6 E9/L Normal 1.0-4.0 [facility] Comment on above: Order Comment: Order Added by Discern Expert. Performed By: #### 2 [id number] #### [facility] [address] [place] [address] Monocytes/100 WBC (Bld) 8.9 % Normal 4.0-14.0 F [facility] Comment on above: Order Comment: Order Added by Discern Expert. Performed By: #### 2 [id number] #### [facility] [address] [place] [address] Monocytes/Leukocytes Auto (Bld) [Pure # fraction] 0.5 E9/L Normal 0.2-1.0 [facility] Comment on above: Order Comment: Order Added by Discern Expert. Performed By: #### 2 [id number] #### [facility] [address] [place] [address] Neutrophils/100 WBC (Bld) 61.3 % Normal 36.0-75.0 [facility] Comment on above: Order Comment: Order Added by Discern Expert. Performed By: #### 2 [id number] #### [facility] [address] [place] [address] Neutrophils/Leukocytes Auto (Bld) [Pure # fraction] 3.6 E9/L Normal 2.0-7.5 [facility] Comment on above: Order Comment: Order Added by Discern Expert. Performed By: #### 2 [id number] #### [facility] [address] [place] [address] BMPon 11-11-2022 Creatinine [Mass/Vol] 2.0 mg/dL High 0.5-1.3 [facility] Comment on above: Performed By: #### 2 707314, 7086841, 73720420, 3495391, 0901557, 5462804, [id number] ####[facility] [address] [place] [address] Anion gap [Moles/Vol] 11 mmol/L Normal 6-16 [facility] Comment on above: Performed By: #### 2 583960, 2816398, 64054506, 7964811, 4676305, 6172742, [id number] ####[facility] [address] [place] [address] Calcium [Mass/Vol] 9.0 mg/dL Normal 8.9-11.1 [facility] Comment on above: Performed By: #### 2 381612, 0797758, 53279292, 6466048, 1774144, 9750051, [id number] ####[facility] [address] [place] [address] Chloride [Moles/Vol] 103 mmol/L Normal 101-111 [facility] Comment on above: Performed By: #### 2 991992, 1573937, 04879185, 0382396, 8689540, 7465721, 858519064 ####[facility] [address] [place] [address] CO2 [Moles/Vol] 30 mmol/L Normal 21-31 [facility] Comment on above: Performed By: #### 2 635884, 5967447, 70801342, 7983637, 1642167, 0010420, [id number] ####[facility] [address] [place] [address] Glucose [Mass/Vol] 107 mg/dL Normal 55-199 [facility] Comment on above: Result Comment: If t his glucose result represents a fasting glucose, interpretation should refer to the following reference range: 55-99 mg/dL Performed By: #### 2 327576, 4307440, 94158705, 9569484, 1747948, 2939937, 729059390 ####[facility] [address] [place] [address] Potassium [Moles/Vol] 3.2 mmol/L Low 3.5-5.3 [facility] Comment on above: Performed By: #### 2 540662, 5759103, 85663783, 9391640, 6352990, 1071969, 773072081 ####[facility] [address] [facility] [address] Sodium [Moles/Vol] 141 mmol/L Normal 135-145 [facility] Comment on above: Performed By: #### 2 055877, 2880332, 89255711, 4778509, 1895640, 4373359, 853971639 ####[facility] [address] [place] [address] Urea nitrogen [Mass/Vol] 24 mg/dL High 5-21 [facility] Comment on above: Performed By: #### 2 079435, 4251276, 17942622, 6850350, 0871531, 3394090, 803642370 ####[facility] [address] [place] [address] Urea nitrogen/Creatinine [Mass ratio] 12 No Units Normal 10-20 [facility] Comment on above: Performed By: #### 2 303627, 4650528, 08198636, 7523029, 7947021, 4340725, 412190026 ####[facility] [address] [place] [address] Creatinine [Mass/Vol] 2.4 mg/dL High 0.5-1.3 [facility] Comment on above: Performed By: #### 2 [id number] #### [facility] [address] [place] [address] Urea nitrogen [Mass/Vol] 26 mg/dL High 5-21 [facility] Comment on above: Performed By: #### 2 [id number] #### [facility] [address] [place] [address] Urea nitrogen/Creatinine [Mass ratio] 11 No Units Normal 10-20 [facility] Comment on above: Performed By: #### 2 [id number] #### [facility] [address] [place] [address] Anion gap [Moles/Vol] 20 mmol/L High 6-16 [facility] Comment on above: Performed By: #### 2 [id number] #### [facility] [address] [place] [address] Calcium [Mass/Vol] 9.4 mg/dL Normal 8.9-11.1 [facility] Comment on above: Performed By: #### 2 [id number] #### [facility] [address] [place] [address] Chloride [Moles/Vol] 96 mmol/L Low 101-111 [facility] Comment on above: Performed By: #### 2 [id number] #### [facility] [address] [place] [address] CO2 [Moles/Vol] 26 mmol/L Normal 21-31 [facility] Comment on above: Performed By: #### 2 70104917 #### [facility] [address] [place] [address] Glucose [Mass/Vol] 131 mg/dL Normal 55-199 [facility] Comment on above: Result Comment: If t his glucose result represents a fasting glucose, interpretation should refer to the following reference range: 55-99 mg/dL Performed By: #### 2 [id number] #### [facility] [address] [place] [address] Potassium [Moles/Vol] 3.7 mmol/L Normal 3.5-5.3 [facility] Comment on above: Performed By: #### 2 [id number] #### [facility] [address] [place] [address] Sodium [Moles/Vol] 138 mmol/L Normal 135-145 [facility] Comment on above: Performed By: #### 2 [id number] #### [facility] [address] [place] [address] Blood Bank ID#on 11-11-2022 BBID# [id number] Invalid Interpretation Code [facility] Comment on above: Performed By: #### 1 [id number], 98963002, [id number], 6682501 ####[facility] [address] [place] [address] CBC w/ Auto Diffon 3 Erythrocyte distribution width (RBC) [Ratio] 14.2 % Normal 10.9-14.2 [facility] Comment on above: Performed By: #### 2 [id number] #### [facility] [address] [place] [address] Hematocrit (Bld) [Volume fraction] 35.6 % Normal 34.0-46.0 [facility] Comment on above: Performed By: #### 2 [id number] #### [facility] [address] [place] [address] Hemoglobin (Bld) [Mass/Vol] 12.1 g/dL Normal 12.0-16.0 [facility] Comment on above: Performed By: #### 2 [id number] #### [facility] [address] [place] [address] MCH (RBC) [Entitic mass] 30.3 pg Normal 27.0-34.0 [facility] Comment on above: Performed By: #### 2 [id number] #### [facility] [address] [place] [address] MCHC (RBC) [Mass/Vol] 34.1 g/dL Normal 31.4-36.0 [facility] Comment on above: Performed By: #### 2 [id number] #### [facility] [address] [place] [address] MCV (RBC) [Entitic vol] 89.0 fL Normal 80.0-100.0 [facility] Comment on above: Performed By: #### 2 [id number] #### [facility] [address] [place] [address] Platelet mean volume (Bld) [Entitic vol] 8.4 fL Normal 6.4-10.8 [facility] Comment on above: Performed By: #### 2 [id number] #### [facility] [address] [place] [address] Platelets (Bld) [#/Vol] 216.0 E9/L Normal 150.0-500.0 [facility] Comment on above: Result Comment: Slid e reviewed by SLICK. Performed By: #### 2 [id number] #### [facility] [address] [place] [address] RBC (Bld) [#/Vol] 4.0 E12/L Low 4.3-5.9 [facility] Comment on above: Performed By: #### 2 39786812 #### [facility] [address] [place] [address] WBC corrected for nucl RBC Auto (Bld) [#/Vol] 6.5 E9/L Normal 4.0-11.0 [facility] Comment on above: Performed By: #### 2 [id number] #### [facility] [address] [place] [address] Erythrocyte distribution width (RBC) [Ratio] 14.7 % High 10.9-14.2 [facility] Comment on above: Performed By: #### 2 51960411 #### [facility] [address] [place] [address] Hematocrit (Bld) [Volume fraction] 39.2 % Normal 34.0-46.0 [facility] Comment on above: Performed By: #### 2 [id number] #### [facility] [address] [place] [address] Hemoglobin (Bld) [Mass/Vol] 12.8 g/dL Normal 12.0-16.0 [facility] Comment on above: Performed By: #### 2 [id number] #### [facility] [address] [place] [address] MCH (RBC) [Entitic mass] 29.5 pg Normal 27.0-34.0 [facility] Comment on above: Performed By: #### 2 [id number] #### [facility] [address] [place] [address] MCHC (RBC) [Mass/Vol] 32.7 g/dL Normal 31.4-36.0 [facility] Comment on above: Performed By: #### 2 [id number] #### [facility] [address] [place] [address] MCV (RBC) [Entitic vol] 90.4 fL Normal 80.0-100.0 [facility] Comment on above: Performed By: #### 2 [id number] #### [facility] [address] [place] [address] Platelet mean volume (Bld) [Entitic vol] 8.1 fL Normal 6.4-10.8 [facility] Comment on above: Performed By: #### 2 [id number] #### [facility] [address] [place] [address] Platelets (Bld) [#/Vol] 231.0 E9/L Normal 150.0-500.0 [facility] Comment on above: Performed By: #### 2 [id number] #### [facility] [address] [place] [address] RBC (Bld) [#/Vol] 4.3 E12/L Normal 4.3-5.9 [facility] Comment on above: Performed By: #### 2 [id number] #### [facility] [address] [place] [address] WBC corrected for nucl RBC Auto (Bld) [#/Vol] 5.9 E9/L Normal 4.0-11.0 [facility] Comment on above: Performed By: #### 2 [id number] #### [facility] [address] [place] [address] [facility] [Catalytic activity/Vol] 82 Int._Unit/L Normal 14-261 [facility] Comment on above: Performed By: #### 2 358637, 9587247, 69370551, 1000881, 4850973, 1683841, 975155950 ####[facility] [address] [place] [address] CRPon 11-11-2022 CRP [Mass/Vol] 0.7 mg/dL Normal <=1.9 [facility] Comment on above: Performed By: #### 2 [id number] #### [facility] [address] [place] [address] CT Abdomen/Pelvis w/o Contra ston 11-11-2022 CT Abdomen/Pelvis w/o Contrast Exam Date/Time: 11/10/2022 22:01 EDT Reason for Exam: ABDOMINAL TRAUMA;Trauma Report IMPRESSION: PLEASE REFER TO CHEST CT REPORT CLINICAL HISTORY: Trauma, ABDOMINAL TRAUMA COMPARISON: NONE. FINDINGS: All CT scans at this facility use dose modulation, iterative reconstruction, and/or weight based dosing when appropriate to reduce radiation dose to as low as reasonably achievable. Ordering Provider: Cuauhtemoc Cheema FINAL REPORT Dictated: 11/11/2022 8:48 am Santos Garcia MD, V. Signed (Electronic Signature): 11/11/2022 8:48 am Signed by: Santos Garcia MD, V. Transcribed by: SHALOM Technologist: ASPEN Technical Comments GFR (mL/min/1/73m2) trauma Contrast: Isovue 300 Contrast amount in ml's: 0 Rectal Contrast Given? No Normal [facility] CT Chest w/o Contraston 06-0 CT Chest w/o Contrast Exam Date/Time: 11/10/2022 22:01 EDT Reason for Exam: CHEST TRAUMA, MOD-SEVERE;Trauma Report IMPRESSION: There are no acute changes. EXAM: CT Chest w/o Contrast Abdomen and Pelvis CLINICAL HISTORY: Trauma, CHEST TRAUMA, MOD-SEVERE Technique: Multiple contiguous axial images were obtained of the chest, abdomen and pelvis from the thoracic inlet through the pelvis. without oral or IV contrast. A dedicated workstation was utilized to obtain 3D Sagittal and coronal reformats. All CT scans at this facility use dose modulation, iterative reconstruction, and/or weight based dosing when appropriate to reduce radiation dose to as low as reasonably achievable. Comparison: Findings: Visualized portion of the thyroid gland is within normal limits. No axillary, mediastinal, or hilar lymphadenopathy. There is a three-vessel aortic arch. No thoracic aortic aneurysm. Esophagus is within normal limits. The heart is within normal limits. There is no pericardial effusion. Coronary artery calcifications noted. No pulmonary nodule or mass. No consolidation, pleural effusion, or pneumothorax. Airways are patent. No bronchiectasis. Liver: The liver is normal in size and enhancement. There are no focal solid or cystic lesions. There is no intra or extrahepatic bile duct dilatation. Gallbladder: No calcified gallstones. Normal gallbladder wall. No pericholecystic fluid. Spleen: The spleen is normal in size with numerous small calcifications indicating previous granulomatous inflammation. Pancreas: The pancreas is normal in size and attenuation without focal lesions or dilatation of the pancreatic duct. Adrenal glands are negative. Report Kidneys: There are no solid renal lesions. There are prompt bilateral nephrograms after IV contrast administration with prompt excretion into nondilated collecting systems. There is no hydroureter. Bowel: There is no evidence of bowel obstruction. There are diverticula of the descending and sigmoid colon without evidence of diverticulitis. Appendix: The appendix is unremarkable. Nodes: No lymphadenopathy. Aorta: There is no abdominal aortic aneurysm. Peritoneum: No free fluid or free air. Pelvis: The uterus is within normal limits. The urinary bladder is within normal limits. Abdominal wall: The abdominal wall is intact. Bones :Status post intramedullary nail fixation of the left femur. The femoral heads are located. There is no evidence of pelvic fracture. Soft tissues: The soft tissues are unremarkable. THORACIC SPINE: There is moderate intervertebral disc space narrowing at every level. There is no loss vertebral body height. There is no acute fracture or subluxation. LUMBAR SPINE: There is mild to moderate disc space narrowing at each level. There is no loss vertebral body height. There is no acute fracture or subluxation. Ordering Provider: Cuauhtemoc Cheema FINAL REPORT Dictated: 11/11/2022 8:48 am Santos Garcia MD, V. Signed (Electronic Signature): 11/11/2022 8:48 am Signed by: Santos Garcia MD, V. Transcribed by: SHALOM Technologist: ASPEN Technical Comments GFR (mL/min/1/73m2) trauma Contrast: Isovue 300 Contrast amount in ml's: 0 [address] [facility] [address] Head or Brain w/o Contras ton 11-11-2022 CT Head or Brain w/o Contrast Exam Date/Time: 11/10/2022 22:01 EDT Reason for Exam: HEAD TRAUMA, MOD-SEVERE;Other (please specify) Report IMPRESSION: There are no acute intracranial changes. EXAM: CT Head or Brain w/o Contrast DATE: 11/10/2022 9:41 PM CLINICAL HISTORY: AMS HEAD TRAUMA, MOD-SEVERE TECHNIQUE: Multiple images axial images were obtained without contrast administration. 3-D sagittal and coronal reconstructions were performed. All CT scans at this facility use dose modulation, iterative reconstruction, and/or weight based dosing when appropriate to reduce radiation dose to as low as reasonably achievable. COMPARISON: FINDINGS: There is no evidence of acute hemorrhage, mass effect or edema. There are no extra-axial collections or space-occupying lesions. There is no evidence of acute ischemia, loss of rollins-white matter differentiation There is mild prominence of sulci and ventricles similar to the previous study indicating global cerebral atrophy. There are mild periventricular white matter changes consistent with chronic microangiopathy. The posterior fossa is unremarkable, The orbits demonstrate no intra or extraconal lesions. The globes are intact. The visualized portions of paranasal sinuses are unremarkable. The calvarium is unremarkable. Ordering Provider: Cuauhtemoc Cheema FINAL REPORT Dictated: 11/11/2022 8:39 am Santos Garcia MD, V. Signed (Electronic Signature): 11/11/2022 8:39 am Signed by: Santos Garcia MD, V. Transcribed by: SHALOM Technologist: ASPEN Technical Comments Contrast: None Normal [facility] CT Maxillofacial w/o Contras ton 11-11-2022 CT Maxillofacial w/o Contrast Exam Date/Time: 11/10/2022 22:01 EDT Reason for Exam: Facial trauma, blunt;Other (please specify) Report IMPRESSION: There is no evidence for acute fracture or dislocation of the facial bones. EXAMINATION: CT Maxillofacial w/o Contrast COMPARISON: None Technique: Multidetector axial CT scanning of the facial bones and paranasal sinuses were acquired without IV contrast.. Coronal and sagittal reformats were generated and reviewed. All CT scans at this facility use dose modulation, iterative reconstruction, and/or weight based dosing when appropriate to reduce radiation dose to as low as reasonably achievable. FINDINGS Osseous structures: There are no lytic or sclerotic bone lesions. No acute nasal fracture or significant septal deviation. The remaining osseous structures about the mid face and orbits including the maxilla, zygoma, mandibular, palatine, sphenoid, lacrimal, and orbital bones are intact without fracture or subluxation. The mandible and TMJs are intact. Orbits: Both globes, extraocular muscles, optic nerves and retrobulbar fat appears normal. Paranasal sinuses: The ostiomeatal complexes are within normal limits. There is no significant deviation of the nasal septum. Soft tissues:The soft tissues are within normal limits, there are no radiopaque foreign bodies. Ordering Provider: Cuauhtemoc Cheema FINAL REPORT Dictated: 11/11/2022 8:41 am Santos Garcia MD, V. Signed (Electronic Signature): 11/11/2022 8:41 am Signed by: Santos Garcia MD, V. Transcribed by: SHALOM Technologist: ASPEN [facility] CT Spine Cervical w/o Contra ston 11-11-2022 CT Spine Cervical w/o Contrast Exam Date/Time: 11/10/2022 22:01 EDT Reason for Exam: NECK TRAUMA, DANGEROUS INJURY MECHANISM;Trauma Report IMPRESSION: THERE ARE NO ACUTE OSSEOUS CHANGES. CLINICAL HISTORY: Trauma, NECK TRAUMA, DANGEROUS INJURY MECHANISM COMPARISON: TECHNIQUE: Multiple axial images of the cervical spine were obtained without contrast administration. 3-D sagittal and coronal reconstructions were performed. All CT scans at this facility use dose modulation, iterative reconstruction, and/or weight based dosing when appropriate to reduce radiation dose to as low as reasonably achievable. FINDINGS: The prevertebral soft tissues are unremarkable. The trachea is patent. There are no lytic or sclerotic bone lesions. There is no acute fracture or subluxation. There is no loss of vertebral body height. The spine is in anatomic alignment. There is severe disc space narrowing from C3 to C7. There is no significant narrowing of the central canal. There there are degenerative changes including facet arthropathy and uncovertebral joint hypertrophy with varying degrees of neural foraminal narrowing. The visualized portions of the lung apices are within normal limits. Ordering Provider: Cuauhtemoc Cheema FINAL REPORT Dictated: 11/11/2022 8:42 am Santos Garcia MD, V. Signed (Electronic Signature): 11/11/2022 8:42 am Signed by: Santos Garcia MD, V. Transcribed by: SHALOM Technologist: ASPEN Normal [facility] Capillary Glucose POCon 06-0 Glucose [Mass/Vol] 203 mg/dL High 55-99 [facility] Comment on above: Result Comment: Yvonne jl Meter Performed By: #### 2 [id number] ####[facility] [id number] [place] [address] Glucose [Mass/Vol] 124 mg/dL High 55-99 [facility] Comment on above: Result Comment: Michelle PACHECO Performed By: #### 2 [id number] #### [facility] [address] [place] [address] Glucose [Mass/Vol] 109 mg/dL High 55-99 [facility] Comment on above: Result Comment: Michelle PACHECO Performed By: #### 2 [id number] ####[facility] [id number] [place] [address] ED Clinical Summaryon 2022 ED Clinical Summary [facility] [address] [place], [place] [address] ED Clinical Summary Person Information Name: NADIA PATTERSON Swapna/[facility] Age: 77 Years : 1945 Sex: Female Language: Mongolian PCP: HARPAL HAYES MD Marital Status: Phone: [phone] Visit Id: Visit Reason: Closed head injury without LOC; Multiple falls; Dizziness; FALL Speciality: Acuity: 2 Enc Type: Observation Med Service: Emergency Arrival: 11/10/2022 21:12:12 Discharge: LOS: 000 13:48 Checkin: 11/10/2022 21:12:12 Checkout: 11/11/2022 11:00:39 Dispo Type: Admitted as IP to this [facility] EVENTS: Event Name Event Status Request Date/Time Start Date/Time Complete Date/Time Arrive Complete 11/10/2022 21:12:12 11/10/2022 21:12:12 11/10/2022 21:12:12 Document Home Meds Request 11/10/2022 21:12:12 Triage Complete 11/10/2022 21:12:12 11/10/2022 21:21:53 11/10/2022 21:21:53 Trauma II Request 11/10/2022 21:13:58 Dr Exam Complete 11/10/2022 21:18:03 11/10/2022 21:18:03 11/10/2022 21:18:03 Registration Complete 11/10/2022 21:18:03 11/10/2022 21:18:13 11/10/2022 21:26:44 Bed Assign Complete 11/10/2022 21:18:13 11/10/2022 21:18:13 11/10/2022 21:18:13 RN Exam Complete 11/10/2022 21:18:13 11/10/2022 21:42:01 11/10/2022 21:42:01 EKG Complete 11/10/2022 21:19:11 11/10/2022 21:21:27 Dr Exam Complete 11/10/2022 21:20:02 11/10/2022 21:20:02 11/10/2022 21:20:02 Isolation Screening Request 11/10/2022 21:21:54 Reg Complete Request 11/10/2022 21:26:44 Reg Bed Request Complete 11/10/2022 21:26:44 11/10/2022 21:26:44 11/10/2022 21:26:44 Consult Request 11/10/2022 21:29:54 NPO Request 11/10/2022 21:29:54 Pending Labs Complete 11/10/2022 21:29:54 11/11/2022 00:57:11 Lab Complete 11/10/2022 21:29:54 11/11/2022 00:57:11 Urine Collect Complete 11/10/2022 21:29:54 11/11/2022 00:57:11 Meds Admin Complete 11/10/2022 21:29:54 11/11/2022 01:21:31 RT Request 11/10/2022 21:29:54 Patient Care Request 11/10/2022 21:29:54 Blood Collect Request 11/10/2022 21:29:54 CT Complete 11/10/2022 21:29:54 11/10/2022 21:41:57 11/10/2022 22:01:51 Fall Risk Request 11/10/2022 21:42:02 CT Complete 11/10/2022 22:02:10 11/10/2022 22:02:15 CT Complete 11/10/2022 22:02:32 11/10/2022 22:02:35 Pending Labs Complete 11/10/2022 22:47:59 11/10/2022 22:47:59 11/10/2022 23:10:34 Lab Complete 11/10/2022 22:47:59 11/10/2022 22:47:59 11/10/2022 23:10:34 Pending Labs Complete 11/10/2022 22:52:27 11/10/2022 22:52:27 11/10/2022 22:52:36 Lab Complete 11/10/2022 22:52:27 11/10/2022 22:52:27 11/10/2022 22:52:36 Meds Admin Complete 11/10/2022 23:21:30 11/10/2022 23:58:23 Pending Labs Complete 11/10/2022 23:21:42 11/10/2022 23:52:17 Lab Complete 11/10/2022 23:21:42 11/10/2022 23:52:17 Urine Collect Complete 11/10/2022 23:21:42 11/10/2022 23:52:17 Pending Labs Complete 11/10/2022 23:26:01 11/10/2022 23:26:01 11/10/2022 23:47:49 Lab Complete 11/10/2022 23:26:01 11/10/2022 23:26:01 11/10/2022 23:47:49 Pending Labs Cancel 11/10/2022 23:47:50 11/11/2022 03:30:39 Lab Cancel 11/10/2022 23:47:50 11/11/2022 03:30:39 Consult Request 11/11/2022 00:49:31 Hospitalist Consult Request 11/11/2022 00:49:34 Patient Care Request 11/11/2022 00:59:43 Patient Care Request 11/11/2022 00:59:43 Patient Care Request 11/11/2022 00:59:43 Patient Care Request 11/11/2022 00:59:43 Trauma II Request 11/11/2022 03:17:57 X-Ray Complete 11/11/2022 04:18:10 11/11/2022 04:35:10 11/11/2022 04:37:17 Wet Read Request 11/11/2022 04:37:17 Pending Labs Complete 11/11/2022 04:47:13 11/11/2022 04:47:13 11/11/2022 04:47:13 Pending Labs Complete 11/11/2022 05:40:18 11/11/2022 07:22:28 Lab Complete 11/11/2022 05:40:18 11/11/2022 07:22:28 Patient Care Request 11/11/2022 05:40:18 Meds Admin Request 11/11/2022 05:40:18 Bed Request Request 11/11/2022 05:40:18 Reg Bed Request Request 11/11/2022 05:40:18 Admit Request 11/11/2022 05:40:18 Pending Labs Complete 11/11/2022 06:08:39 11/11/2022 06:08:39 11/11/2022 07:18:21 Lab Complete 11/11/2022 06:08:39 11/11/2022 06:08:39 11/11/2022 07:18:21 Pending Labs Inlab 11/11/2022 06:11:34 11/11/2022 06:11:34 Pending Labs Complete 11/11/2022 06:36:12 11/11/2022 06:36:12 11/11/2022 06:36:12 Pending Labs Complete 11/11/2022 06:38:48 11/11/2022 06:38:48 11/11/2022 06:38:55 Lab Complete 11/11/2022 06:38:48 11/11/2022 06:38:48 11/11/2022 06:38:55 Pending Labs Complete 11/11/2022 06:39:14 11/11/2022 06:39:14 11/11/2022 07:08:38 Lab Complete 11/11/2022 06:39:14 11/11/2022 06:39:14 11/11/2022 06:56:36 Patient Care Request 11/11/2022 07:33:07 Pending Labs Complete 11/11/2022 07:34:11 11/11/2022 07:34:11 11/11/2022 07:34:57 Meds Admin Complete 11/11/2022 07:34:53 11/11/2022 10:38:46 Pending Labs Cancel 11/11/2022 07:36:47 11/11/2022 07:36:47 11/11/2022 07:38:21 Lab Cancel 11/11/2022 07:36:47 11/11/2022 07:36:47 11/11/2022 07:38:21 Patient Care Complete 11/11/2022 07:37:16 11/11/2022 10:01:03 Pending Labs Cancel 11/11/2022 07:39:29 11/11/2022 08:08:54 Lab Cancel 11/11/2022 07:39:29 11/11/2022 08:08:54 Meds Admin Request 11/11/2022 07:58:58 Patient Care Request 11/11/2022 10:03:46 Meds Admin Request 11/11/2022 10:08:01 X-Ray Complete 11/11/2022 10:08:28 11/11/2022 10:11: (more content not included)... [facility] ED Note-Physicianon 11-12-19 ED Note-Physician Basic Information Time Seen: Deni DE JESUS, Cuauhtemoc Lay. 11/10/2022 21:18 Chief Complaint Pt has fallen multiple times recently. Most recent has been tonight. Fell face first into shower. Striking head on tub and having head pain now. Denies LOC. Does have hematoma above L eye. Does take ASA daily. History of Present Illness A 77-year-old female reports the emergency department with chief complaint of multiple falls recently. She comes via squad. Reports most recent fall has been tonight. States that she fell face first into her shower. She states that she does not have any preceding symptoms, but just falls. Reports that she has been generally weak. Reports multiple falls over the last couple of days. Reports that she does have a cardiac history. Reports that she is currently on a baby aspirin. Denies any chest pain or shortness of breath. Denies any preceding symptoms. States nothing is her is her neck. Review of Systems A 10 point review of systems is negative except as noted above. Medical and Surgical History: Reviewed and noted Social history: Lives at home Family History: Reviewed. Tobacco: Physical Exam Vitals & Measurements T: 36.8 ?C(Oral) HR: 75(Peripheral) RR: 16 BP: 144/99 SpO2: 93% HT: 152 cm WT: 83 kg BMI: 35.92 General: The patient appears well and in no apparent distress. Patient is resting comfortably on bed. Afebrile. Skin: Warm, dry, no pallor noted. Skin abrasion to right forearm.. Hematoma noted to the left forehead. No active bleeding noted. Head: Normocephalic, atraumatic Neck: No JVD Eye: PERRLA, EOMI ENT: Moist mucus membranes Cardiovascular: Regular rate normal peripheral perfusion. Radial pulses +2 bilaterally Respiratory: No respiratory distress no accessory muscle use no obvious audible wheezing. Lung sounds clear auscultation Chest Wall: no deformity. No chest wall tenderness Musculoskeletal: normal ROM, no deformity, no swelling GI: No obvious distention soft nontender nondistended no guarding rebounding or rigidity. Pelvis stable Neurological: A&Ox4. moves all extremities equal strength and symmetry. Full sensations. No focal neurological defects. Psychiatric: Cooperative and appropriate Medical Decision Making MEDICAL DECISION MAKING Number and Complexity of Problems Differential Diagnosis: [] [facility] Data External documents reviewed: [] My EKG interpretation: reviewed My CT interpretation: reviewed My X-ray interpretation: [] My Ultrasound interpretation: [] Decision rules/scores evaluated: [] Discussed with: [] Treatment and Disposition ED Course: 77-year-old female reports emergency department with a chief complaint of multiple falls, as well as weakness. States that she has had multiple falls over the last couple of days. She comes via squad. Reports that she did hit her head. States she is on baby aspirin. Denies any loss consciousness, was able to get up. She states that she does have some general pain in her neck. She reports that she little sore in her hips, benign physical exam. Based on her symptoms, we did do a trauma work-up. Patient was randall scanned. Patient did not want contrast dye, so we did do them without contrast. Scans of the face, maxillofacial area, head, C-spine, chest, and abdomen/pelvis were all negative for any acute findings. Lab work was reviewed and noted. Patient does appear to have a ADIA. I was able to obtain previous lab work from [facility] that was taken on Tuesday, which did show a decrease in her kidney function. Due to this, we did give the patient 500 mL of fluid. Patient reports that she did have a UTI, has been on Bactrim for it. She denies any other pain is at this time. Urine was obtained, which showed no acute UTI currently. Based on the patient's weakness, ADIA, and multiple falls, I did discuss case with the hospitalist. He is agreeable with admission. Shared decision making: [] Code status: [] Assessment/Plan ADIA (acute kidney injury) (N17.9: Acute kidney failure, unspecified) Closed head injury (S09.90XA: Unspecified injury of head, initial encounter) Multiple falls (R29.6: Repeated falls) Traumatic hematoma of forehead (S00.83XA: Contusion of other part of head, initial encounter) Weakness (R53.1: Weakness) Orders: morphine, 4 mg = 2 mL, Injection, IV Push, Once, Stop date 11/10/22 21:29:00 EDT, STAT, Start date 11/10/22 21:29:00 EDT, 11/10/22 21:29:00 EDT ondansetron, 4 mg = 2 mL, Injection, IV Push, Once, Stop date 11/10/22 21:29:00 EDT, STAT, Start date 11/10/22 21:29:00 EDT, 11/10/22 21:29:00 EDT Sodium Chloride 0.9% intravenous solution, 500 mL, IV, Stop date 11/10/22 23:55:00 EDT, Start date 11/10/22 23:55:00 EDT Sodium Chloride 0.9% intravenous solution, 1,000 mL, Soln-IV, IV, Once, Stop date 11/10/22 23:21:00 EDT, STAT, Start date 11/10/22 23:21:00 EDT, Infuse over 61, minute(s) ABO/Rh ABO/Rh History Check Antibody Screen Automated Diff Basic Metabolic Panel Blood Bank ID# [id number] (more content not included)... Normal [facility] Comment on above: Result Comment: Elec tronically Signed By: Cuauhtemoc Cheema PA-C\.br\Date and Time Signed: 11/11/22 00:36 EDT\.br\Electronically Co-Signed By: Yohannes Barraza DO\.br\Date and Time Co-Signed: 11/11/22 01:06 EDT ED Patient Education Noteon 11-11-2022 ED Patient Education Note Normal [facility] ED Patient Summaryon 023 ED Patient Summary [place] [id number] Patient Discharge Instructions Person Information Name: NADIA PATTERSON Age: 77 Years Arrival Date: 11/10/2022 21:12:12 Discharge Diagnosis: 1:Fall; 2:Closed head injury; 3:Weakness; 4:Acute kidney injury superimposed on chronic kidney disease; 5:Elevated lactic acid level; 6:Diabetes; 7:Hyperlipidemia; 8:Hypothyroidism; 9:Left wrist pain; 10:Chronic pain; 11:Hypertension; 12:Obesity; Chronic kidney disease, unspecified Primary Care Physician: HARPAL HAYES MD Provider Information Primary Provider: Yohannes Barraza DO Advanced Education Reporter:None The exam and treatment you received in the Emergency Department were for an urgent problem and are not intended as complete care. It is important that you follow up with a doctor, nurse practitioner, or physician?s employee relations assistant for ongoing care. If your symptoms become worse or you do not improve as expected and you are unable to reach your usual health care provider, you should return to the Emergency Department. We are available 24 hours a day. NADIA PATTERSON has been given the following list of patient education materials, prescriptions and follow-up instructions: Follow-up Instructions: In the event that this physician does not participate in your insurance network, please consult with your insurance company to find a nearby participating provider. Patient Education Materials: A MESSAGE TO ALL PATIENTS REGARDING OPIOIDS PRESCRIPTION OPIOIDS: WHAT YOU NEED TO KNOW Prescription opioids can be used to help relieve gaphyjxb-wk-anflzv pain and are often prescribed following a surgery or injury, or for certain health conditions. These medications can be an important part of the treatment but also come with serious risks. It is important to work with your healthcare provider to make sure you are getting the safest, most effective care. WHAT ARE THE RISKS AND SIDE EFFECTS OF OPIOID USE? Prescription opioids carry serious risks of addiction and overdose, especially with prolonged use. An opioid overdose, often marked by slowed breathing, can cause sudden . The use of prescription opioids can have a number of side effects as well, even when taken as directed: ? Tolerance?meaning you might need to take more of the medication for the same pain relief ? Physical dependence?meaning you have symptoms of withdrawal when a medication is stopped ? Increased sensitivity to pain ? Constipation ? Nausea, vomiting, and dry mouth ? Sleepiness and dizziness ? Confusion ? Depression ? Low levels of testosterone that can result in lower sex drive, energy, and strength ? Itching and sweating RISKS ARE GREATER WITH: ? History of drug misuse, substance use disorder, or overdose ? Mental health conditions (such as depression or anxiety) ? Sleep apnea ? Older age (65 years and older) ? Avoid alcohol while taking prescription opioids. Also, unless specifically advised by your health care provider, medications to avoid include: ? Benzodiazepines (such as Xanax or Valium) ? Muscle relaxants (such as Soma or Flexeril) ? Hypnotics (such as Ambien or Lunesta) ? Other prescription opioids KNOW YOUR OPTIONS Talk to your health care provider about ways to manage your pain that don?t involve prescription opioids. Some of these options may actually work better and have fewer risks and side effects. Options may include: ? Pain relievers such as acetaminophen, ibuprofen, and naproxen ? Some medication that are also used for depression or seizures ? Physical therapy and exercise ? Cognitive behavioral therapy, a psychological, goal-directed approach, in which patients learn how to modify physical, behavioral, and emotional triggers of pain and stress. IF YOU ARE PRESCRIBED OPIOIDS FOR PAIN: ? Never take opioids in greater amounts or more often than prescribed. ? Follow up with your primary health care provider. o Work together to create a plan on how to manage your pain. o Talk about ways to help manage your pain that don?t involve prescription opioids. o Talk about any and all concerns and side effects. ? Help prevent misuse and abuse o Never sell or share prescription opioids. o Never use another person?s prescription opioids. ? Store prescription opioids in a secure place and out of reach of others (this may include visitors, children, friends, and family). ? Safely dispose of unused prescription opioids: Find your community drug take-back program or your pharmacy mail-back program, or flush them down the toilet, following guidance from the Food and Drug Administration (www.fda.gov/Drugs/R esourcesForYou). ? Visit www.cdc.gov/drugover dose to learn about the risks of opioids abuse and overdose. ? If you believe you may be struggling with addiction, tell your health care director rn and ask (more content not included)... Normal [facility] ED Traumaon 11-11-2022 ED Trauma [id number] 7#[id number]:127 Normal [facility] Ethanolon 11-11-2022 Ethanol [Mass/Vol] mg/dL Normal <=7 [facility] Comment on above: Performed By: #### 2 [id number] #### [facility] [address] [place] [address] Hep Func Panelon 11-11-2022 Albumin [Mass/Vol] 3.7 g/dL Normal 3.3-5.0 [facility] Comment on above: Performed By: #### 2 [id number] #### [facility] [address] [place] [address] Albumin/Globulin (S) [Mass conc ratio] 1.2 Normal 1.1-2.2 [facility] Comment on above: Performed By: #### 2 [id number] #### [facility] [address] [place] [address] ALP [Catalytic activity/Vol] 63 Int._Unit/L Normal 21-98 [facility] Comment on above: Performed By: #### 2 [id number] #### [facility] [address] [place] [address] ALT No additional P-5'-P [Catalytic activity/Vol] 17 Int._Unit/L Normal 6-46 [facility] Comment on above: Performed By: #### 2 [id number] #### [facility] [address] [place] [address] AST [Catalytic activity/Vol] 25 Int._Unit/L Normal 5-43 [facility] Comment on above: Performed By: #### 2 [id number] #### [facility] [address] [place] [address] Bilirubin [Mass/Vol] 0.7 mg/dL Normal 0.0-1.1 [facility] Comment on above: Performed By: #### 2 [id number] #### [facility] [address] [place] [address] Bilirubin.direct [Mass/Vol] 0.1 mg/dL Normal 0.1-0.4 [facility] Comment on above: Performed By: #### 2 [id number] #### [facility] [address] [place] [address] Bilirubin.indirect [Mass or moles/Vol] 0.6 mg/dL Normal 0.1-0.9 [facility] Comment on above: Performed By: #### 2 [id number] #### [facility] [address] [place] [address] Globulin (S) [Mass/Vol] 3.1 g/dL Normal 1.4-4.0 [facility] Comment on above: Performed By: #### 2 [id number] #### [facility] [address] [place] [address] Protein [Mass/Vol] 6.8 g/dL Normal 6.0-7.8 [facility] Comment on above: Performed By: #### 2 [id number] #### [facility] [address] [place] [address] DpdB2plg 11-11-2022 HbA1c (Bld) [Mass fraction] 6.9 % High <=5.9 [facility] Comment on above: Performed By: #### 2 [id number] ####[facility] [id number] [place] [address] Interdisciplinary Note - [place] e Manageron 11-11-2022 Interdisciplinary Note - Toe Stapler Admission to ER and then RNF to discuss SNF placement. PT/OT rec SNF. CRM will discuss with pt and family. Patient will need 3MN stay. ANt dc TBD. 0 Normal [facility] Comment on above: Result Comment: Elec tronically Signed By: Kaylie Díaz.olaf\Date and Time Signed: 11/11/22 15:15 EDT Interdisciplinary Note - José n 11-11-2022 Interdisciplinary Note - OT 11/11/22: OT orders received, chart reviewed. Per PT, Pt is independent in room and reports no questions/concerns with going home safely. No OT eval completed at this time. [facility] Interdisciplinary Note - OT OT six clicks score: 14=SNF. Main barriers towards Pt's safe and functional performance is Pt's generalized weakness, activity tolerance, and L wrist pain. OT to follow daily, progressing as tolerates. SNF recommended for discharge to maximize Pt's safety and independence with all self care tasks and functional transfers. Normal [facility] Lactic Acidon 11-11-2022 Lactate [Mass/Vol] 1.3 mmol/L Normal 0.5-2.2 [facility] Comment on above: Performed By: #### 2 [id number] #### [facility] [address] [place] [address] Lactate [Mass/Vol] 3.8 mmol/L High 0.5-2.2 [facility] Comment on above: Performed By: #### 2 [id number] #### [facility] [address] [place] [address] Lipase Levelon 11-11-2022 Lipase [Catalytic activity/Vol] 26 U/L Normal 13-58 [facility] Comment on above: Performed By: #### 2 [id number] #### [facility] [address] [place] [address] Monitor Recordon 11-11-2022 Monitor Record [id number] 8#1.00CD:127 Normal [facility] Outside Recordson 11-11-2022 Outside Records [id number] 7#1.00CD:127 Normal [facility] PT & PTTon 11-11-2022 aPTT Coag (PPP) [Time] 45.4 second(s) High 25.1-36.5 [facility] Comment on above: Result Comment: Para meter 15 days - 4 weeks 1 - 5 months 6 - 11 months 1 - 5 years 6 - 10 years 11 - 17 years PTT Mean: 35.4 (27.6-45.6) Mean: 33.5 (24.8-40.7) Mean: 32.4 (25.1-40.7) Mean: 31.6 (24.0-39.2) Mean: 31.6 (26.9-38.7) Mean: 31.0 (24.6-38.4) Pediatric Reference ranges were obtained from a study by Jeff Gilbert et al. prepared from 1437 samples obtained at 7 different centers using the same coagulation reagent and instrumentation as [facility]. Currently there are no coagulation studies available worldwide for children to 14 days, and no normal ranges. Heparin therapeutic range (represented by Anti-Factor Xa activity of 0.2 - 0.4 U/mL) corresponds to PTT of 56.6 - 109.0 sec. Performed By: #### 2 [id number] #### [facility] [address] [place] [address] INR Coag (PPP) [Relative time] 1.1 {INR} Invalid Interpretation Code [facility] Comment on above: Result Comment: INR results are specifically intended to assess patients stabilized on long-term Anticoagulation therapy suggested INR?s ?Less Intensive Anticoagulation? 2.0 ? 3.0 Conventional Range 3.0 ? 4.5 Performed By: #### 2 [id number] #### [facility] [address] [place] [address] PT Coag (PPP) [Time] 12.4 second(s) Normal 9.4-12.5 [facility] Comment on above: Result Comment: 15 d ays - 4 weeks 1 - 5 months 6 -11 months 1-5 years 6-10 years 11 -17 years Mean: 11.2 (9.5-12.6) Mean: 11.0 (9.7-12.8) Mean: 11.0 (9.8-13.0) Mean: 11.3 (9.9-13.4) Mean: 11.7 (10.0-14.6) Mean: 11.8 (10.0 - 14.1) Pediatric Reference ranges were obtained from a study by Jeff Gilbert et al. prepared from 1437 samples obtained at 7 different centers using the same coagulation reagent and instrumentation as [facility]. Currently there are no coagulation studies available worldwide for children to 14 days, and no normal ranges. Performed By: #### 2 [id number] #### [facility] [address] [place] [address] RAD - Preliminary Cat Scan R eporton 11-11-2022 RAD - Preliminary Cat Scan Report [id number] 6#[id number]:127 Normal [facility] TSH With T4fr Reflexon 11-11 TSH Qn 0.45 m[IU]/L Normal 0.34-5.60 [facility] Comment on above: Performed By: #### 2 [id number] #### [facility] [address] [place] [address] Troponinon 11-11-2022 Troponin I.cardiac [Mass/Vol] 4.40 pg/mL Low 10.10-27.10 [facility] Comment on above: Result Comment: The 95% CI (Confidence Interval) PPV (Positive Predictive Value) for myocardial infarction in females is 38 pg/mL, in males 51 pg/mL. The results should be used in conjunction with clinical conditions of myocardial infarction. (Access High Sensitivity Troponin I Instructions For Use, Manjula Cecilia, January 2018) Performed By: #### 2 [id number] #### [facility] [address] [place] [address] U Drug Screenon 11-11-2022 Amphetamines Screen method >1000 ng/mL Ql (U) Negative Normal Negative [facility] Comment on above: Result Comment: Nega tive Cutoff: <1000 ng/mL Performed By: #### 2 [id number] #### [facility] [address] [place] [address] Barbiturates Screen Ql (U) Negative Normal Negative [facility] Comment on above: Result Comment: Nega tive Cutoff: <200 ng/mL Performed By: #### 2 [id number] #### [facility] [address] [place] [address] Benzodiazepines Ql (U) Negative Normal Negative [facility] Comment on above: Result Comment: Nega tive Cutoff: <200 ng/mL Performed By: #### 2 [id number] #### [facility] [address] [place] [address] Cocaine Ql (U) Negative Normal Negative [facility] Comment on above: Result Comment: Nega tive Cutoff: <300 ng/mL Performed By: #### 2 [id number] #### [facility] [address] [place] [address] Opiates Screen Ql (U) Positive Abnormal Negative [facility] Comment on above: Result Comment: Crit ical Result verified by repeat analysis\No confirmation requested by Donna\Unconfirmed by alternate method\Critical Result UD_OPIA:POS Called to DR MENDEZ AT ER by PAU [place] And Read Back For Confirmation at: 11/11/2022 00:38:39 Negative Cutoff: <300 ng/mL Performed By: #### 2 [id number] #### [facility] [address] [place] [address] Phencyclidine Screen method >25 ng/mL Ql (U) Negative Normal Negative [facility] Comment on above: Result Comment: Nega tive Cutoff: <25 ng/mL These drug screen results are to be used for medical (i.e., treatment) purposes only. Unconfirmed drug screening results must not be used for non-medical purposes (e.g., employment testing, legal testing). Performed By: #### 2 [id number] #### [facility] [address] [place] [address] Tetrahydrocannabinol Screen method >50 ng/mL Ql (U) Negative Normal Negative [facility] Comment on above: Result Comment: Nega tive Cutoff: <50 ng/mL Performed By: #### 2 [id number] #### [facility] [address] [place] [address] UA With Cult Reflexon 2022 Bilirubin Ql (U) Negative Normal Negative [facility] Comment on above: Performed By: #### 2 [id number] #### [facility] [address] [place] [address] Clarity (U) CLEAR Normal Clear [facility] Comment on above: Performed By: #### 2 [id number] #### [facility] [address] [place] [address] Color (U) YELLOW Normal Yellow [facility] Comment on above: Performed By: #### 2 [id number] #### [facility] [address] [place] [address] Epithelial cells.squamous LM.HPF (Urine sed) [#/Area] 0-2 Normal 0-2 [facility] Comment on above: Performed By: #### 2 [id number] #### [facility] [address] [place] [address] Glucose Test strip (U) [Mass/Vol] Negative Normal Negative [facility] Comment on above: Performed By: #### 2 [id number] #### [facility] [address] [place] [address] Hemoglobin Ql (U) Negative Normal Negative [facility] Comment on above: Performed By: #### 2 [id number] #### [facility] [address] [place] [address] Ketones (U) [Mass/Vol] Negative Normal Negative [facility] Comment on above: Performed By: #### 2 [id number] #### [facility] [address] [place] [address] [place].plasma/[place].R BC (Bld) [Mass ratio] 0-3 Normal 0-3 [facility] Comment on above: Performed By: #### 2 [id number] #### [facility] [address] [place] [address] Nitrite Ql (U) Negative Normal Negative [facility] Comment on above: Performed By: #### 2 [id number] #### [facility] [address] [place] [address] pH (U) 6.0 [pH] Invalid Interpretation Code 5.0-9.0 [facility] Comment on above: Performed By: #### 2 [id number] #### [facility] [address] [place] [address] Protein (U) [Mass/Vol] Negative Normal Negative [facility] Comment on above: Performed By: #### 2 [id number] #### [facility] [address] [place] [address] Specific gravity (U) [Rel density] <=1.005 Invalid Interpretation Code 1.005-1.030 [facility] Comment on above: Performed By: #### 2 [id number] #### [facility] [address] [place] [address] Type of Urine collection method Clean Catch Normal [facility] Comment on above: Performed By: #### 2 [id number] #### [facility] [address] [place] [address] Urobilinogen Qn (U) 0.2 {Macie'U}/dL Normal 0.0-1.0 [facility] Comment on above: Performed By: #### 2 [id number] #### [facility] [address] [place] [address] WBC Auto Ql (U) Negative Normal Negative [facility] Comment on above: Performed By: #### 2 [id number] #### [facility] [address] [place] [address] WBC LM.HPF (Urine sed) [#/Area] 0-5 Normal 0-5 [facility] Comment on above: Performed By: #### 2 [id number] #### [facility] [address] [place] [address] XR Hand 3+ Views Lefton XR Hand 3+ Views Left Exam Date/Time: 11/11/2022 04:37 EDT Reason for Exam: Pain, Traumatic Report IMPRESSION: THERE ARE NO ACUTE OSSEOUS CHANGES. THERE ARE DEGENERATIVE CHANGES, OSTEOARTHRITIS OF THE HAND AND WRIST CLINICAL HISTORY: Pain, Traumatic COMPARISONS: NONE AVAILABLE FINDINGS: AP, lateral and oblique views of the left hand demonstrate no evidence of fracture, dislocation, or bone abnormality. There is severe joint space narrowing of the radiocarpal joints. There is moderate narrowing of the proximal and distal interphalangeal joints. Ordering Provider: Yohannes Barraza FINAL REPORT Dictated: 11/11/2022 8:35 am Santos Garcia MD, V. Signed (Electronic Signature): 11/11/2022 8:35 am Signed by: Santos Garcia MD, V. Transcribed by: SHALOM Technologist: MAITE Technical Comments Radiation Dose: Ka,r in mGy = n/a DAP = n/a Normal [facility] XR Wrist 3+ Views Lefton XR Wrist 3+ Views Left Exam Date/Time: 11/11/2022 10:25 EDT Reason for Exam: Pain, Traumatic Report IMPRESSION: THERE ARE NO ACUTE OSSEOUS CHANGES. THERE ARE SEVERE DEGENERATIVE CHANGES OF THE RADIOCARPAL JOINTS. EXAM: Left wrist, 4 views. CLINICAL HISTORY: Pain, Traumatic COMPARISON: None FINDINGS: AP, lateral, oblique and navicular views of the left wrist demonstrate severe degenerative changes of the distal radius and the brachial carpal joints and the ulnar styloid which may be secondary to prior trauma. There is no acute fracture or subluxation. Ordering Provider: Jeff SUTTON FINAL REPORT Dictated: 11/11/2022 10:59 am Santos Garcia MD, V. Signed (Electronic Signature): 11/11/2022 10:59 am Signed by: Santos Garcia MD, V. Transcribed by: SHALOM Technologist: JUVE Technical Comments Radiation Dose: Ka,r in mGy = na DAP = na Normal [facility] eGFRon 11-11-2022 GFR/1.73 sq M.predicted among non-blacks MDRD (S/P/Bld) [Vol rate/Area] 25 mL/min/1.73 m2 Low >=59 [facility] Comment on above: Order Comment: Order added by Discern Expert. 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 Kidney failure is indicated at less than 15 mL/min/1.73m2. Performed By: #### 2 [id number], [id number], [id number], [id number] ####[facility] [id number] [place] [address] GFR/1.73 sq M.predicted among non-blacks MDRD (S/P/Bld) [Vol rate/Area] 20 mL/min/1.73 m2 Low >=59 [facility] Comment on above: Order Comment: Order added by Discern Expert. 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 Kidney failure is indicated at less than 15 mL/min/1.73m2. Performed By: #### 2 [id number] #### [facility] [address] [place] [address] Consent for Treatmenton 0 Consent for Treatment [id number] #[id number]:127 Normal [facility] CULTURE URINEon 05-30-2022 CULTURE URINE Isolate 1 Escherichia coli >100,000 cfu/mL of ORGANISM 1 Escherichia coli ANTIBIOTIC M.I.C RX STATUS Ampicillin 8 S F Ampicillin/Sulbactam 4 S F Piperacillin/Tazobac joshi <=4 S F Cefazolin <=4 S F Ceftazidime <=1 S F Ceftriaxone <=1 S F Ertapenem <=0.5 S F Imipenem <=0.25 S F Amikacin <=2 S F Gentamicin <=1 S F Tobramycin <=1 S F Ciprofloxacin <=0.25 S F Levofloxacin <=0.12 S F Nitrofurantoin <=16 S F Trimethoprim/Sulfame thoxazole <=20 S F Normal [facility] Comment on above: Performed By: #### C MP, HSTROPN #### [facility] [address] [address] [address] Sahil Turk CBC AUTO DIFFon 05-27-2022 BASO # 0.0 103/ul Normal 0.0-0.1 [facility] Comment on above: Performed By: #### U RTPCR #### [facility] [address] [address] [address] Sahil Turk Basophils/100 WBC (Bld) 0.3 % Normal 0.2-2.0 [facility] Comment on above: Performed By: #### U RTPCR #### [facility] [address] [address] [address] Sahil Turk EO # 0.1 103/ul Normal 0.0-0.7 [facility] Comment on above: Performed By: #### U RTPCR #### [facility] [address] [place] [address] Dr. Sahil Turk Eosinophils/100 WBC (Bld) 0.5 % Critically low 0.9-7.0 [facility] Comment on above: Performed By: #### U RTPCR #### [facility] [address] [address] [address] Sahil Turk Erythrocyte distribution width (RBC) [Ratio] 14.1 % Normal 11.0-15.0 [facility] Comment on above: Performed By: #### U RTPCR #### [facility] [address] [place] [address] Dr. Sahil Turk Hematocrit (Bld) [Volume fraction] 38.6 % Normal 36.0-48.0 [facility] Comment on above: Performed By: #### U RTPCR #### [facility] [address] [address] [address] Sahil Turk Hemoglobin (Bld) [Mass/Vol] 12.4 g/dL Normal 12.0-16.0 [facility] Comment on above: Performed By: #### U RTPCR #### [facility] [address] [address] [address] Sahil Turk IG # 0.05 10e3/ul Critically high 0.00-0.03 [facility] Comment on above: Performed By: #### U RTPCR #### [facility] [address] [address] [address] Sahil Turk IG % 0.5 % Normal 0.0-0.5 [facility] Comment on above: Performed By: #### U RTPCR #### [facility] [address] [address] [address] Sahil Turk LYMPH # 2.1 103/ul Normal 1.2-3.8 [facility] Comment on above: Performed By: #### U RTPCR #### [facility] [address] [place] [address] Dr. Sahil Turk Lymphocytes/100 WBC (Bld) 19.2 % Critically low 20.5-60.0 [facility] Comment on above: Performed By: #### U RTPCR #### [facility] [address] [place] [address] Dr. Sahil Turk MANUAL DIFF REQ NO Normal [facility] Comment on above: Performed By: #### U RTPCR #### [facility] [address] [place] [address] Dr. Sahil Turk MCH (RBC) [Entitic mass] 29.5 pg Normal 26.7-34.0 [facility] Comment on above: Performed By: #### U RTPCR #### [facility] [address] [place] [address] Dr. Sahil Turk MCHC (RBC) [Mass/Vol] 32.1 g/dL Normal 29.9-35.2 [facility] Comment on above: Performed By: #### U RTPCR #### [facility] [address] [address] [address] Sahil Turk MCV (RBC) [Entitic vol] 91.9 fL Normal 81.0-99.0 [facility] Comment on above: Performed By: #### U RTPCR #### [facility] [address] [place] [address] Dr. Sahil Turk MONO # 0.5 103/ul Normal 0.3-0.8 [facility] Comment on above: Performed By: #### U RTPCR #### [facility] [address] [address] [address] Sahil Turk Monocytes/100 WBC (Bld) 4.6 % Normal 1.7-12.0 [facility] Comment on above: Performed By: #### U RTPCR #### [facility] [address] [address] [address] Sahil Turk NEUT # 8.3 103/ul Critically high 1.4-6.5 [facility] Comment on above: Performed By: #### U RTPCR #### [facility] [address] [address] [address] Sahil Turk Neutrophils/100 WBC (Bld) 74.9 % Normal 43.0-75.0 [facility] Comment on above: Performed By: #### U RTPCR #### [facility] [address] [place] [address] Dr. Sahil Turk Platelet mean volume (Bld) [Entitic vol] 9.3 fL Critically low 9.5-13.5 [facility] Comment on above: Performed By: #### U RTPCR #### [facility] [address] [place] [address] Dr. Sahil uTrk PLT 222 103/ul Normal 150-450 [facility] Comment on above: Performed By: #### U RTPCR #### [facility] [address] [place] [address] Dr. Sahil Turk RBC 4.20 106/ul Normal 4.20-5.40 [facility] Comment on above: Performed By: #### U RTPCR #### [facility] [address] [place] [address] Dr. Sahil Turk WBC 11.0 103/ul Normal 4.0-11.0 [facility] Comment on above: Performed By: #### U RTPCR #### [facility] [address] [place] [address] Dr. Sahil Turk ER URINE PROFILEon 2 Bilirubin Ql (U) Negative Normal NEGATIVE [facility] Comment on above: Performed By: #### C MP, HSTROPN #### [facility] [address] [place] [address] Dr. Sahil Turk Clarity (U) CLEAR Normal CLEAR [facility] Comment on above: Performed By: #### C MP, HSTROPN #### [facility] [address] [address] [address] Sahil Turk Color (U) LT. YELLOW Normal YELLOW [facility] Comment on above: Performed By: #### C MP, HSTROPN #### [facility] [address] [place] [address] Dr. Sahil HAINES A micrscopic examination will be performed if indicated. Normal [facility] Comment on above: Performed By: #### C MP, HSTROPN #### [facility] [address] [place] [address] Dr. Sahil Turk Glucose Ql (U) Negative Normal NEGATIVE [facility] Comment on above: Performed By: #### C MP, HSTROPN #### [facility] [address] [place] [address] Dr. Sahil Turk Hemoglobin Ql (U) Negative Normal NEGATIVE [facility] Comment on above: Performed By: #### C MP, HSTROPN #### [facility] [address] [place] [address] Dr. Sahil Turk Ketones Ql (U) Negative Normal NEGATIVE [facility] Comment on above: Performed By: #### C MP, HSTROPN #### [facility] [address] [place] [address] Dr. Sahil Turk LEUKOCYTES SMALL Abnormal NEGATIVE [facility] Comment on above: Performed By: #### C MP, HSTROPN #### [facility] [address] [place] [address] Dr. Sahil Turk Nitrite Ql (U) Positive Abnormal NEGATIVE [facility] Comment on above: Performed By: #### C MP, HSTROPN #### [facility] [address] [place] [address] Dr. Sahil Turk pH (U) 7.0 [pH] Normal 5-9 [facility] Comment on above: Performed By: #### C JAYY, HSTROPN #### [facility] [address] [place] [address] Dr. Sahil Turk SPEC GRAVITY 1.010 Normal 1.005-<=1.0 25 [facility] Comment on above: Performed By: #### C JAYY, HSTROPN #### [facility] [address] [place] [address] Dr. Sahil Turk UA PROTEIN Negative Normal NEGATIVE/ TRACE [facility] Comment on above: Performed By: #### C JAYY, HSTROPN #### [facility] [address] [place] [address] Dr. Sahil Turk UR MICRO IND INDICATED Normal [facility] Comment on above: Performed By: #### C JAYY, HSTROPN #### [facility] [address] [place] [address] Dr. Sahil Turk Urobilinogen Qn (U) 0.2 {Macie'U}/dL Normal 0.2 - 1. 0 [facility] Comment on above: Performed By: #### C JAYY, HSTROPN #### [facility] [address] [place] [address] Dr. Sahil Turk PROF 14(COMP METB)on 022 Albumin [Mass/Vol] 3.5 g/dL Normal 3.4-5.0 [facility] Comment on above: Performed By: #### C JAYY, HSTROPN #### [facility] [address] [place] [address] Dr. Sahil Turk Albumin/Globulin [Mass ratio] 0.9 {ratio} Normal [facility] Comment on above: Performed By: #### C JAYY, HSTROPN #### [facility] [address] [place] [address] Dr. Sahil Turk ALP [Catalytic activity/Vol] 81 U/L Normal 46-116 [facility] Comment on above: Performed By: #### C JAYY, HSTROPN #### [facility] [address] [place] [address] Dr. Sahil Turk ALT [Catalytic activity/Vol] 15 U/L Normal 14-59 [facility] Comment on above: Performed By: #### C JAYY, HSTROPN #### [facility] [address] [address] [address] Sahil Turk Anion gap [Moles/Vol] 9.7 mmol/L Normal [facility] Comment on above: Performed By: #### C JAYY, HSTROPN #### [facility] [address] [address] [address] Sahil Turk AST [Catalytic activity/Vol] 20 U/L Normal 15-37 [facility] Comment on above: Performed By: #### C JAYY, HSTROPN #### [facility] [address] [place] [address] Dr. Sahil Turk Bilirubin [Mass/Vol] 0.5 mg/dL Normal 0.2-1.0 [facility] Comment on above: Performed By: #### C JAYY, HSTROPN #### [facility] [address] [address] [address] Sahil Turk Calcium [Mass/Vol] 9.5 mg/dL Normal 8.5-10.1 [facility] Comment on above: Performed By: #### C JAYY, HSTROPN #### [facility] [address] [address] [address] Sahil Turk Chloride [Moles/Vol] 100 mmol/L Normal 98-107 [facility] Comment on above: Performed By: #### C JAYY, HSTROPN #### [facility] [address] [address] [address] Sahil Turk CO2 [Moles/Vol] 36.1 mmol/L Critically high 21.0-32.0 [facility] Comment on above: Performed By: #### C JAYY, HSTROPN #### [facility] [address] [address] [address] Sahil Turk Creatinine [Mass/Vol] 1.67 mg/dL Critically high 0.55-1.02 [facility] Comment on above: Performed By: #### C MP, HSTROPN #### [facility] [address] [place] [address] Dr. Sahil Turk EGFR-AF MAURITIAN 36 mL/min/1.73m2 Critically low >=60 [facility] Comment on above: Performed By: #### C MP, HSTROPN #### [facility] [address] [place] [address] Dr. Sahil Turk EGFR-NON AF MAURITIAN 30 mL/min/1.73m2 Critically low >=60 [facility] Comment on above: Performed By: #### C MP, HSTROPN #### [facility] [address] [place] [address] Dr. Sahil Turk Globulin (S) [Mass/Vol] 3.8 g/dL Normal [facility] Comment on above: Performed By: #### C MP, HSTROPN #### [facility] [address] [place] [address] Dr. Sahil Turk Glucose [Mass/Vol] 181 mg/dL Critically high 74-106 [facility] Comment on above: Performed By: #### C MP, HSTROPN #### [facility] [address] [place] [address] Dr. Sahil Turk Potassium [Moles/Vol] 3.8 mmol/L Normal 3.5-5.1 [facility] Comment on above: Performed By: #### C MP, HSTROPN #### [facility] [address] [place] [address] Dr. Sahil Turk Protein [Mass/Vol] 7.3 g/dL Normal 6.4-8.2 [facility] Comment on above: Performed By: #### C MP, HSTROPN #### [facility] [address] [place] [address] Dr. Sahil Turk Sodium [Moles/Vol] 142 mmol/L Normal 136-145 [facility] Comment on above: Performed By: #### C MP, HSTROPN #### [facility] [address] [place] [address] Dr. Sahil Turk Urea nitrogen [Mass/Vol] 18.0 mg/dL Normal 7.0-18.0 [facility] Comment on above: Performed By: #### C MP, HSTROPN #### [facility] [address] [address] [address] Sahil Turk Urea nitrogen/Creatinine [Mass ratio] 10.8 mg/mg Normal [facility] Comment on above: Performed By: #### C MP, HSTROPN #### [facility] [address] [address] [address] Sahil Turk PROTIMEon 05-27-2022 INR Coag (PPP) [Relative time] 1.09 {INR} Normal [facility] Comment on above: Performed By: #### U RTPCR #### [facility] [address] [place] [address] Dr. Sahil Turk INR GUIDELINES SEE BELOW Normal [facility] Comment on above: Result Comment: LUIS ANGEL RED INR: 2.0 - 3.0 CONDITIONS NOT LISTED BELOW 2.5 - 3.5 FOR PROSTHETIC HEART VALVE REPLACEMENT 2.5 - 3.5 RECURRENT THROMBOSIS Performed By: #### U RTPCR #### [facility] [address] [place] [address] Dr. Sahil Turk PT Coag (PPP) [Time] 11.7 s Critically high 9.0-11.6 [facility] Comment on above: Performed By: #### U RTPCR #### [facility] [address] [place] [address] Dr. Sahil Turk PTTon 05-27-2022 aPTT Coag (Bld) [Time] 30.6 s Normal 22.3-36.2 Th [facility] Comment on above: Performed By: #### U RTPCR #### [facility] [address] [place] [address] Dr. Sahil Turk TROPONIN, HIGH SENSITIVITYon 05-27-2022 HSTROP 7.1 pg/mL Normal 4.0-51.3 [facility] Comment on above: Result Comment: CUT- OFF POINTS HAVE BEEN ESTABLISHED BASED ON THE FOURTH UNIVERSAL DEFINITIONS OF MYOCARDIAL INFARCTION. THE UPPER REFERENCE LIMIT (URL) OF TROPONIN, DEFINED THE 99TH PERCENTILE OF cTnI DISTRIBUTION IN A REFERENCE POPULATION, HAS BEEN CONFIRMED THE DECISION THRESHOLD FOR RI DIAGNOSIS. Performed By: #### C MP, HSTROPN #### [facility] [address] [place] [address] Dr. Sahil Turk URINE MICROSCOPIC ONLYon BACTERIA LARGE Abnormal NONE SEEN [facility] Comment on above: Performed By: #### C MP, HSTROPN #### [facility] [address] [place] [address] Dr. Sahil Turk Bacteria identified Cx Nom (U) INDICATED Normal [facility] Comment on above: Performed By: #### C MP, HSTROPN #### [facility] [address] [place] [address] Dr. Sahil Turk CAST NONE SEEN Normal NONE SEEN [facility] Comment on above: Performed By: #### C MP, HSTROPN #### [facility] [address] [place] [address] Dr. Sahil Turk Crystals LM Nom (Urine sed) NONE SEEN Normal NONE SEEN [facility] Comment on above: Performed By: #### C MP, HSTROPN #### [facility] [address] [place] [address] Dr. Sahil Turk Epithelial cells LM Ql (Urine sed) RARE Normal NONE SEEN /RARE [facility] Comment on above: Performed By: #### C MP, HSTROPN #### [facility] [address] [place] [address] Dr. Sahil Turk MUCOUS NONE SEEN Normal NONE SEEN [facility] Comment on above: Performed By: #### C MP, HSTROPN #### [facility] [address] [place] [address] Dr. Sahil Turk RBC 0-2 Normal 0-2 [facility] Comment on above: Performed By: #### C MP, HSTROPN #### [facility] [address] [place] [address] Dr. Sahil Turk WBC 0-2 Abnormal NONE SEEN [facility] Comment on above: Performed By: #### C MP, HSTROPN #### [facility] [address] [address] [address] Sahil Turk XR CHEST 1 Von 05-27-2022 XR CHEST 1 V EXAM: XR CHEST 1 V REASON FOR EXAM: Female, 77 years, Asthenia. TECHNIQUE: A single AP view of the chest is performed. COMPARISON: 03/11/2022. FINDINGS: Cardiac monitoring leads project over the chest. There is mild basilar atelectasis. Normal pleura. Normal size heart. Normal mediastinum and elva. Normal visualized pulmonary arteries. There is calcification of the aortic knob. There are degenerative changes within the spine. Normal visualized ribs, clavicles, and shoulders. There is no demonstrated abnormality of the visualized soft tissue structures of the upper abdomen. IMPRESSION: Mild bilateral basilar atelectasis. Electronically authenticated by: EDGARD GOMEZ Date: 2022-05-27 21:31 Normal [facility] Office Visiton 04-23-2022 Follow-up visit [id number] Nadia Patterson 1945 F Date Provider Department Center 04/23/[address] [facility], [facility] No family history on file Level of Service:67621 [place] OFFICE/OUTPATIENT ESTABLISHED LOW MDM 20-29 MIN Reason for Visit and Comments: Follow-up [526230] - 6 months- Went to ER few months ago and has continued chest pain a few times since. Normal [facility] CULTURE URINEon 03-13-2022 CULTURE URINE Isolate 1 Escherichia coli >100,000 cfu/mL of ORGANISM 1 Escherichia coli ANTIBIOTIC M.I.C RX STATUS Ampicillin >=32 R F Ampicillin/Sulbactam 4 S F Piperacillin/Tazobac joshi <=4 S F Cefazolin <=4 S F Ceftazidime <=1 S F Ceftriaxone <=1 S F Ertapenem <=0.5 S F Imipenem <=0.25 S F Amikacin <=2 S F Gentamicin >=16 R F Tobramycin 8 I F Ciprofloxacin <=0.25 S F Levofloxacin <=0.12 S F Nitrofurantoin <=16 S F Trimethoprim/Sulfame thoxazole <=20 S F Normal [facility] Comment on above: Performed By: #### C ACACIA HOPE #### [facility] [address] [place] [address] Dr. Sahil Turk BNPon 03-11-2022 Natriuretic peptide B (Bld) [Mass/Vol] 449.0 pg/mL Normal <=1,800.0 [facility] Comment on above: Performed By: #### U RTPCR #### [facility] [address] [place] [address] Dr. Sahil Turk CBC AUTO DIFFon 03-11-2022 BASO # 0.0 103/ul Normal 0.0-0.1 [facility] Comment on above: Performed By: #### C MP, HSTROPN #### [facility] [address] [place] [address] Dr. Sahil Turk Basophils/100 WBC (Bld) 0.6 % Normal 0.2-2.0 [facility] Comment on above: Performed By: #### C MP, HSTROPN #### [facility] [address] [place] [address] Dr. Sahil Turk EO # 0.1 103/ul Normal 0.0-0.7 [facility] Comment on above: Performed By: #### C MP, HSTROPN #### [facility] [address] [place] [address] Dr. Sahil Turk Eosinophils/100 WBC (Bld) 2.8 % Normal 0.9-7.0 [facility] Comment on above: Performed By: #### C MP, HSTROPN #### [facility] [address] [place] [address] Dr. Sahil Turk Erythrocyte distribution width (RBC) [Ratio] 13.7 % Normal 11.0-15.0 [facility] Comment on above: Performed By: #### C MP, HSTROPN #### [facility] [address] [place] [address] Dr. Sahil Turk Hematocrit (Bld) [Volume fraction] 39.2 % Normal 36.0-48.0 [facility] Comment on above: Performed By: #### C MP, HSTROPN #### [facility] [address] [address] [address] Sahil Turk Hemoglobin (Bld) [Mass/Vol] 12.7 g/dL Normal 12.0-16.0 [facility] Comment on above: Performed By: #### C MP, HSTROPN #### [facility] [address] [address] [address] Sahil Turk IG # 0.01 10e3/ul Normal 0.00-0.03 [facility] Comment on above: Performed By: #### C MP, HSTROPN #### [facility] [address] [place] [address] Dr. Sahil Turk IG % 0.2 % Normal 0.0-0.5 [facility] Comment on above: Performed By: #### C MP, HSTROPN #### [facility] [address] [place] [address] Dr. Sahil Turk LYMPH # 1.9 103/ul Normal 1.2-3.8 [facility] Comment on above: Performed By: #### C MP, HSTROPN #### [facility] [address] [place] [address] Dr. Sahil Turk Lymphocytes/100 WBC (Bld) 37.8 % Normal 20.5-60.0 [facility] Comment on above: Performed By: #### C MP, HSTROPN #### [facility] [address] [place] [address] Dr. Sahil Turk MANUAL DIFF REQ NO Normal [facility] Comment on above: Performed By: #### C MP, HSTROPN #### [facility] [address] [place] [address] Dr. Sahil Turk MCH (RBC) [Entitic mass] 30.5 pg Normal 26.7-34.0 [facility] Comment on above: Performed By: #### C MP, HSTROPN #### [facility] [address] [place] [address] Dr. Sahil Turk MCHC (RBC) [Mass/Vol] 32.4 g/dL Normal 29.9-35.2 [facility] Comment on above: Performed By: #### C MP, HSTROPN #### [facility] [address] [place] [address] Dr. Sahil Turk MCV (RBC) [Entitic vol] 94.0 fL Normal 81.0-99.0 [facility] Comment on above: Performed By: #### C MP, HSTROPN #### [facility] [address] [place] [address] Dr. Sahil Turk MONO # 0.4 103/ul Normal 0.3-0.8 [facility] Comment on above: Performed By: #### C MP, HSTROPN #### [facility] [address] [place] [address] Dr. Sahil Turk Monocytes/100 WBC (Bld) 7.0 % Normal 1.7-12.0 [facility] Comment on above: Performed By: #### C MP, HSTROPN #### [facility] [address] [place] [address] Dr. Sahil Turk NEUT # 2.6 103/ul Normal 1.4-6.5 [facility] Comment on above: Performed By: #### C MP, HSTROPN #### [facility] [address] [place] [address] Dr. Sahil Turk Neutrophils/100 WBC (Bld) 51.6 % Normal 43.0-75.0 [facility] Comment on above: Performed By: #### C MP, HSTROPN #### [facility] [address] [place] [address] Dr. Sahil Turk Platelet mean volume (Bld) [Entitic vol] 9.9 fL Normal 9.5-13.5 [facility] Comment on above: Performed By: #### C MP, HSTROPN #### [facility] [address] [place] [address] Dr. Sahil Turk PLT 220 103/ul Normal 150-450 [facility] Comment on above: Performed By: #### C MP, HSTROPN #### [facility] [address] [address] [address] Sahil Turk RBC 4.17 106/ul Critically low 4.20-5.40 [facility] Comment on above: Performed By: #### C JAYY, HSTROPN #### [facility] [address] [place] [address] Dr. Sahil Turk WBC 5.0 103/ul Normal 4.0-11.0 [facility] Comment on above: Performed By: #### C MP, HSTROPN #### [facility] [address] [place] [address] Dr. Sahil Turk ER URINE PROFILEon 2 Bilirubin Ql (U) Negative Normal NEGATIVE [facility] Comment on above: Performed By: #### M G, RENAL, URIC #### [facility] [address] [place] [address] Dr. Sahil Turk Clarity (U) CLEAR Normal CLEAR [facility] Comment on above: Performed By: #### M G, RENAL, URIC #### [facility] [address] [place] [address] Dr. Sahil Turk Color (U) LT. YELLOW Normal YELLOW [facility] Comment on above: Performed By: #### M G, RENAL, URIC #### [facility] [address] [place] [address] Dr. Sahil VILLEGASD A micrscopic examination will be performed if indicated. Normal [facility] Comment on above: Performed By: #### M G, RENAL, URIC #### [facility] [address] [place] [address] Dr. Sahil Turk Glucose Ql (U) Negative Normal NEGATIVE [facility] Comment on above: Performed By: #### M G, RENAL, URIC #### [facility] [address] [place] [address] Dr. Sahil Turk Hemoglobin Ql (U) Negative Normal NEGATIVE [facility] Comment on above: Performed By: #### M G, RENAL, URIC #### [facility] [address] [place] [address] Dr. Sahil Turk Ketones Ql (U) Negative Normal NEGATIVE [facility] Comment on above: Performed By: #### M G, RENAL, URIC #### [facility] [address] [place] [address] Dr. Sahil Turk LEUKOCYTES SMALL Abnormal NEGATIVE [facility] Comment on above: Performed By: #### M G, RENAL, URIC #### [facility] [address] [place] [address] Dr. Sahil Turk Nitrite Ql (U) Positive Abnormal NEGATIVE [facility] Comment on above: Performed By: #### M G, RENAL, URIC #### [facility] [address] [place] [address] Dr. Sahil Turk pH (U) 6.5 [pH] Normal 5-9 [facility] Comment on above: Performed By: #### M G, RENAL, URIC #### [facility] [address] [place] [address] Dr. Sahil Turk SPEC GRAVITY 1.010 Normal 1.005-<=1.0 25 [facility] Comment on above: Performed By: #### M G, RENAL, URIC #### [facility] [address] [place] [address] Dr. Sahil Turk UA PROTEIN Negative Normal NEGATIVE/ TRACE [facility] Comment on above: Performed By: #### M G, RENAL, URIC #### [facility] [address] [place] [address] Dr. Sahil Turk UR MICRO IND INDICATED Normal [facility] Comment on above: Performed By: #### M G, RENAL, URIC #### [facility] [address] [place] [address] Dr. Sahil Turk Urobilinogen Qn (U) 0.2 {Macie'U}/dL Normal 0.2 - 1. 0 [facility] Comment on above: Performed By: #### M G, RENAL, URIC #### [facility] [address] [place] [address] Dr. Sahil Turk LIPASEon 03-11-2022 Lipase [Catalytic activity/Vol] 40.0 U/L Critically low 73.0-393.0 [facility] Comment on above: Performed By: #### U RTPCR #### [facility] [address] [place] [address] Dr. Sahil Turk PROF 14(COMP METB)on 022 Albumin [Mass/Vol] 3.5 g/dL Normal 3.4-5.0 [facility] Comment on above: Performed By: #### M G, RENAL, URIC #### [facility] [address] [address] [address] Sahil Turk Albumin/Globulin [Mass ratio] 1.1 {ratio} Normal [facility] Comment on above: Performed By: #### M G, RENAL, URIC #### [facility] [address] [place] [address] Dr. Sahil Turk ALP [Catalytic activity/Vol] 69 U/L Normal 46-116 [facility] Comment on above: Performed By: #### M G, RENAL, URIC #### [facility] [address] [place] [address] Dr. Sahil Turk ALT [Catalytic activity/Vol] 18 U/L Normal 14-59 [facility] Comment on above: Performed By: #### M G, RENAL, URIC #### [facility] [address] [place] [address] Dr. Sahil Turk Anion gap [Moles/Vol] 10.6 mmol/L Normal [facility] Comment on above: Performed By: #### M G, RENAL, URIC #### [facility] [address] [address] [address] Sahil Turk AST [Catalytic activity/Vol] 21 U/L Normal 15-37 [facility] Comment on above: Performed By: #### M G, RENAL, URIC #### [facility] [address] [address] [address] Sahil Turk Bilirubin [Mass/Vol] 0.4 mg/dL Normal 0.2-1.0 [facility] Comment on above: Performed By: #### M G, RENAL, URIC #### [facility] [address] [place] [address] Dr. Sahil Turk Calcium [Mass/Vol] 9.6 mg/dL Normal 8.5-10.1 [facility] Comment on above: Performed By: #### M G, RENAL, URIC #### [facility] [address] [place] [address] Dr. Sahil Turk Chloride [Moles/Vol] 102 mmol/L Normal 98-107 [facility] Comment on above: Performed By: #### M G, RENAL, URIC #### [facility] [address] [place] [address] Dr. Sahil Turk CO2 [Moles/Vol] 33.1 mmol/L Critically high 21.0-32.0 [facility] Comment on above: Performed By: #### M G, RENAL, URIC #### [facility] [address] [place] [address] Dr. Sahil Turk Creatinine [Mass/Vol] 1.40 mg/dL Critically high 0.55-1.02 [facility] Comment on above: Performed By: #### M G, RENAL, URIC #### [facility] [address] [place] [address] Dr. Sahil Turk EGFR-AF MAURITIAN 44 mL/min/1.73m2 Critically low >=60 [facility] Comment on above: Performed By: #### M G, RENAL, URIC #### [facility] [address] [place] [address] Dr. Sahil Turk EGFR-NON AF MAURITIAN 36 mL/min/1.73m2 Critically low >=60 [facility] Comment on above: Performed By: #### M G, RENAL, URIC #### [facility] [address] [place] [address] Dr. Sahil Turk Globulin (S) [Mass/Vol] 3.3 g/dL Normal [facility] Comment on above: Performed By: #### M G, RENAL, URIC #### [facility] [address] [place] [address] Dr. Sahil Turk Glucose [Mass/Vol] 107 mg/dL Critically high 74-106 [facility] Comment on above: Performed By: #### M G, RENAL, URIC #### [facility] [address] [address] [address] Sahil Turk Potassium [Moles/Vol] 3.7 mmol/L Normal 3.5-5.1 [facility] Comment on above: Performed By: #### M G, RENAL, URIC #### [facility] [address] [address] [address] Sahil Turk Protein [Mass/Vol] 6.8 g/dL Normal 6.4-8.[address] [facility] Comment on above: Performed By: #### M G, RENAL, URIC #### [facility] [address] [address] [address] Sahil Turk Sodium [Moles/Vol] 142 mmol/L Normal 136-[address] [facility] Comment on above: Performed By: #### M G, RENAL, URIC #### [facility] [address] [place] [address] Dr. Sahil Turk Urea nitrogen [Mass/Vol] 16.0 mg/dL Normal 7.0-18.0 [facility] Comment on above: Performed By: #### M G, RENAL, URIC #### [facility] [address] [address] [address] Sahil Turk Urea nitrogen/Creatinine [Mass ratio] 11.4 mg/mg Normal [facility] Comment on above: Performed By: #### M G, RENAL, URIC #### [facility] [address] [place] [address] Dr. Sahil Turk PROTIMEon 03-11-2022 INR Coag (PPP) [Relative time] 1.03 {INR} Normal [facility] Comment on above: Performed By: #### C MP, HSTROPN #### [facility] [address] [place] [address] Dr. Sahil Turk INR GUIDELINES SEE BELOW Normal [facility] Comment on above: Result Comment: LUIS ANGEL RED INR: 2.0 - 3.0 CONDITIONS NOT LISTED BELOW 2.5 - 3.5 FOR PROSTHETIC HEART VALVE REPLACEMENT 2.5 - 3.5 RECURRENT THROMBOSIS Performed By: #### C MP, HSTROPN #### [facility] [address] [address] [address] Sahil Turk PT Coag (PPP) [Time] 11.1 s Normal 9.0-11.6 [facility] Comment on above: Performed By: #### C MP, HSTROPN #### [facility] [address] [place] [address] Dr. Sahil Turk PTTon 03-11-2022 aPTT Coag (Bld) [Time] 25.4 s Normal 22.3-36.2 [facility] Comment on above: Performed By: #### C MP, HSTROPN #### [facility] [address] [place] [address] Dr. Sahil Turk TROPONIN, HIGH SENSITIVITYon 03-11-2022 HSTROP 7.5 pg/mL Normal 4.0-51.3 [facility] Comment on above: Result Comment: CUT- OFF POINTS HAVE BEEN ESTABLISHED BASED ON THE FOURTH UNIVERSAL DEFINITIONS OF MYOCARDIAL INFARCTION. THE UPPER REFERENCE LIMIT (URL) OF TROPONIN, DEFINED THE 99TH PERCENTILE OF cTnI DISTRIBUTION IN A REFERENCE POPULATION, HAS BEEN CONFIRMED THE DECISION THRESHOLD FOR RI DIAGNOSIS. Performed By: #### M G, RENAL, URIC #### [facility] [address] [place] [address] Dr. Sahil Turk HSTROP 7.9 pg/mL Normal 4.0-51.3 [facility] Comment on above: Result Comment: CUT- OFF POINTS HAVE BEEN ESTABLISHED BASED ON THE FOURTH UNIVERSAL DEFINITIONS OF MYOCARDIAL INFARCTION. THE UPPER REFERENCE LIMIT (URL) OF TROPONIN, DEFINED THE 99TH PERCENTILE OF cTnI DISTRIBUTION IN A REFERENCE POPULATION, HAS BEEN CONFIRMED THE DECISION THRESHOLD FOR RI DIAGNOSIS. Performed By: #### U RTPCR #### [facility] [address] [place] [address] Dr. Sahil Turk URINE MICROSCOPIC ONLYon BACTERIA SMALL Abnormal NONE SEEN [facility] Comment on above: Performed By: #### M G, RENAL, URIC #### [facility] [address] [place] [address] Dr. Sahil Turk Bacteria identified Cx Nom (U) INDICATED Normal [facility] Comment on above: Performed By: #### M G, RENAL, URIC #### [facility] [address] [address] [address] Sahil Turk CAST NONE SEEN Normal NONE SEEN [facility] Comment on above: Performed By: #### M G, RENAL, URIC #### [facility] [address] [place] [address] Dr. Sahil Turk Crystals LM Nom (Urine sed) NONE SEEN Normal NONE SEEN [facility] Comment on above: Performed By: #### M G, RENAL, URIC #### [facility] [address] [place] [address] Dr. Sahil Turk Epithelial cells LM Ql (Urine sed) RARE Normal NONE SEEN /RARE [facility] Comment on above: Performed By: #### M G, RENAL, URIC #### [facility] [address] [place] [address] Dr. Sahil Turk MUCOUS NONE SEEN Normal NONE SEEN [facility] Comment on above: Performed By: #### M G, RENAL, URIC #### [facility] [address] [place] [address] Dr. Sahil Turk RBC 0-2 Normal 0-2 [facility] Comment on above: Performed By: #### M G, RENAL, URIC #### [facility] [address] [place] [address] Dr. Sahil Turk WBC 5-10 Abnormal NONE SEEN [facility] Comment on above: Performed By: #### M G, RENAL, URIC #### [facility] [address] [place] [address] Dr. Sahil Turk XR CHEST 1 Von 03-11-2022 XR CHEST 1 V PORTABLE CHEST X-RAY. INDICATION: Chest pain. COMPARISON: 07/18/2019 TECHNIQUE: Single AP portable chest radiograph. FINDINGS: TUBES AND LINES: None. LUNGS: Lungs are clear. PLEURA: No effusions or pneumothorax. HEART AND MEDIASTINUM: Within normal limits for portable technique. OSSEOUS STRUCTURES: No acute abnormality. IMPRESSION: No acute findings. Electronically authenticated by: HAWK MUNGUIA Date: 2022-03-11 14:27 Normal [facility] CT CSPINE WO CONon 2 CT CSPINE WO CON EXAMINATION: CT CSPINE WO CON 02/21/2022 COMPARISON STUDY: CT of the cervical spine without contrast 12/25/2020 FINDINGS: Visualized portions of the intracranial contents and skull base appear unremarkable. There is mild degenerative narrowing of the predental space with associated sclerosis and osteophytosis. There are calcifications involving the transverse ligament posterior to the dens. Cervical alignment is intact. Moderate to severe multilevel cervical and upper thoracic spondylytic changes are evident. There is ankylosis of facet articulations at several levels bilaterally. The C1 ring is intact. At C2-C3, significant hypertrophic osseous change from bilateral facet disease, asymmetrically greater toward left noted. No critical canal stenosis or foraminal stenosis otherwise suspected. At C3-C4, bilateral facet disease is also identified, moderate in severity. No critical canal stenosis or foraminal stenosis. At C4-C5, posterior ligaments are thickened and calcified. Moderate to severe foraminal encroachment on the right more so than left related to a combination of uncovertebral arthritic and facet arthritic changes. Small central disc bulge is noted. No critical canal stenosis. At C5-C6, there is moderate to severe bilateral foraminal encroachment from uncovertebral arthritic and facet arthritic changes. Mild posterior endplate spurring noted. No critical canal stenosis. At C6-C7, moderate to severe bilateral foraminal encroachment from uncovertebral arthritic and facet arthritic changes. There is mild posterior endplate spurring without critical canal stenosis. At C7-T1, mild/moderate bilateral foraminal encroachment from bilateral uncovertebral arthritic changes are present. There is critical canal stenosis with partial visualization of arthritic changes at the sternoclavicular articulations. The lung apices are clear. Changes from atherosclerosis with peripheral vascular arterial disease noted. The thyroid is severely atrophic. Prevertebral soft tissues demonstrate no acute abnormality. HISTORY: Unspecified fall TECHNIQUE: CT Cervical spine without IV contrast. Coronal and sagittal reformations were performed. Dose reduction techniques were achieved by using automated exposure control and/or adjustment of mA and/or kV according to patient size and/or use of iterative reconstruction technique. IMPRESSION: 1. Negative for acute cervical or spinal fracture or subluxation. 2. Severe multilevel cervical and upper thoracic spondylytic changes again identified. No critical canal stenosis. 3. Moderate to severe bilateral foraminal encroachment related to a combination of uncovertebral arthritic and facet arthritic changes as described. 4. Severely atrophic thyroid noted incidentally. Electronically authenticated by: LEISA CELAYA Date: 2022-02-22 08:12 Normal [facility] CT HEAD WO CONon 02-21-2022 CT HEAD WO CON EXAM: CT HEAD WO CON COMPARISON: 12/25/2020. CLINICAL INFORMATION: Fall, headache. TECHNIQUE: Axial noncontrast images were obtained through the brain and reconstructed using brain and bone algorithms with sagittal and coronal reconstructions. Dose reduction techniques were achieved by using automated exposure control and/or adjustment of mA and/or kV according to patient size and/or use of iterative reconstruction technique. FINDINGS: BRAIN: No intracranial hemorrhage. No extra-axial collection. No mass or mass effect. No midline shift. Rollins-white matter differentiation is preserved. Unchanged brain atrophy. Moderate chronic microvascular ischemic change again seen. Basal ganglia calcifications again seen, senescent change. ORBITS: Prior cataract surgery. No acute abnormality. SINUSES AND MASTOID AIR CELLS: Paranasal sinuses are clear. Mastoid air cells are clear. BONES: No acute osseous abnormality. SOFT TISSUES: Scalp soft tissues unremarkable. Dense carotid calcifications. IMPRESSION: No acute intracranial abnormality. Electronically authenticated by: ANDRADE LEWIS Date: 2022-02-21 16:40 Normal [facility] CT LSPINE WO CONon 2 CT LSPINE WO CON EXAMINATION: CT LSPINE WO CON, 02/21/2022, 3:54 PM EDT HISTORY: Pain COMPARISON: None. TECHNIQUE: CT of the lumbar spine was performed without IV contrast. CT dose reduction technique was used, including Automated Exposure Control. 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 MINERALIZATION: Probable mild osteopenia. VERTEBRAL BODIES: Normal in height with no acute compression fracture. DISC SPACES: Severe narrowing at T12-L1 and L5-S1 with vacuum phenomenon and osteophytic spurring consistent with degenerative changes. ALIGNMENT: Likely degenerative grade 1 anterolisthesis at L4-L5. POSTERIOR ELEMENTS: Intact. There is moderate to severe multilevel facet arthropathy. SPINAL CANAL/NEURAL FORAMEN: There is no significant canal stenosis. There is moderate left neural foraminal stenosis at L1-L2, mild bilateral neural foraminal stenosis at L3-L4, and there is severe bilateral neural foraminal stenosis at L5-S1. VISUALIZED UPPER PELVIS: Unremarkable. SOFT TISSUES: Diffuse atherosclerotic calcification of the abdominal aorta and visualized iliac arteries. IMPRESSION: 1. No acute fracture or subluxation. 2. Degenerative changes as described in the body of the report. 3. Atherosclerotic calcification. Electronically authenticated by: LINDA MCDANIEL Date: 2022-02-21 17:26 Normal [facility] XR HIP LT 2 3V W PELVISon XR HIP LT 2 3V W PELVIS IMAGES REVIEWED: XR HIP LT 2 3V W PELVIS COMPARISON: 12/25/2020. CLINICAL INDICATION: Unspecified fall FINDINGS/IMPRESSION: 1. No definite radiographic evidence of acute osseous abnormality of the left hip. Osteopenia. 2. Remote fracture deformity of the left proximal femur and left greater trochanter again seen, with intact appearing although chronically angulated intramedullary yadiel again partially visualized in the left femur. 3. Moderate degenerative changes of bilateral hips. Electronically authenticated by: ANDRADE LEWIS Date: 2022-02-21 16:51 Normal [facility] Erroneous Encounteron 2021 Erroneous Encounter [id number] Nadia Patterson 1945 F Date Provider Department [facility] No family history on file Reason for Visit and Comments: Error (VOID this visit) [77] Normal [facility] Progress Noteson 02-18-2022 Policeman Authentication Interface Message Text EMERGENCY TRIAGE, TREAT AND TRANSPORT (ET3) DOCUMENTATION OF TELEHEALTH VISIT Date / Time: 01/08/2022 / 0345am Name: Suhas Patterson : 1945 SSN: [id number] EMS Agency: [facility] [x] Verbal consent obtained [] Implied consent - patient with potential emergency medical condition requiring assessment of capacity to refuse treatment and/or transport VITAL SIGNS: see flowsheet documentation BP 140/80 Pulse 82 Resp 16 SpO2 100% Reason for Telehealth Visit: Lift Assist - Unable to stand from seated position. History of Present Ilness: Patient is a 76 yo female who called EMS for lift assist. Patient was trying to put depends on and lost balance. Hung on to bed and lowered self to floor gently. Denies head inj or loc. States her and sleep in separate rooms. Couldn't get up from floor on own so EMS was called. No complaints now. After ems assistance has walked and went to bathroom without issues. No thinners. The remainder of all systems were reviewed and are negative for other complaint. Additional pertinent PMHx, SocHx, FamHx: PMH: hypothyroidism, Obesity, T2DM SHx: Knee Surgery x 2 Home meds: aspirin, atorvastatin, carvedilol, d3, lasix, levothyroxine, lisinopril, metformin , lasix, docusate, carvedilol Soc: lives with Review of Systems: The remainder of all systems were reviewed and are negative for other complaint. Exam: well appearing, no signs trauma General: Awake, no distress ENT: normocephalic, atraumatic Pulmonary: No respiratory distress Cardiovascular: Well perfused Neurologic: Oriented to person, place, time and events. Moving all extremities equally. GCS 15, gait intact. Psychiatric: Appropriate. Good insight and judgement. Medical Decision Makin female, lift assist via ems, after controlled fall/lowering to the floor. No complaints at this time. VSS and afebrile. No signs trauma. PE unremarkable. Ambulated in home with ems present to bathroom. Does not want to be transported. Low susp of acute emergent etiology. D/w patient utilizing sdm risk of no transport, and safety at home. Patient expressed understanding. No transport. Disposition Supported by Telehealth Assessment: ET3 Transport Decision: Treat in place, no transport. EMS Disposition Reported: Same ET3 Encounter Completed by: Madai Webb MD Normal [facility] [place] Abstracton 02-11-2022 Abstract [id number] YeseniaNadia M 1945 F Date Provider Department Center 02/11/2022 [facility] MAY No family history on file Normal [facility] Abstracton 02-06-2022 Abstract [id number] Nadia Patterson 1945 F Date Provider Department Center 02/06/2022 [facility] No family history on file Normal [facility] ECHOCARDIO M/2D COMPLETEon 0 01-06-2022 ECHOCARDIO M/2D COMPLETE Patient: KAI PATTERSONMAGNOLIA Dong. Exam Date: 01/06/2022 : 1945 Gender:F Ordering : MEI DAS Admission #: [id number] Family : DR HARPAL HAYES M.D. Order #: [id number] CLICK HERE TO VIEW EXAM ECHOCARDIOGRAM REPORT PROCEDURE: CARDIO PULMONARY ECHOCARDIO M/2D COMP INDICATIONS: Tricuspid regugitation COMPARISON: None. DESCRIPTION: COMPLETE ECHOCARDIOGRAM Real-time transthoracic echocardiography with 2D, M-mode, spectral and color flow Doppler performed. QUALITY: Technical quality was adequate. 64 191# 126/60 HR 66 LEFT VENTRICLE: Normal chamber size. Normal left ventricular wall thickness. Global left ventricular systolic function is normal. LV EF: Visual estimation of left ventricular ejection fraction is 60-65%. DIASTOLIC: Normal diastolic function. ATRIAL SEPTUM: LEFT ATRIUM: Normal chamber size. RIGHT ATRIUM: Normal chamber size. RIGHT VENTRICLE: Mild dilatation. Normal right ventricular systolic function. TRICUSPID VALVE: Normal mobility and thickness. No stenosis with mild to moderate regurgitation. Mild pulmonary hypertension. RVSP 38 mmHg MITRAL VALVE: Normal mobility and thickness. No evidence of mitral valve stenosis. Mild mitral regurgitation. AORTIC VALVE: Normal trileaflet appearance. No evidence of aortic valve stenosis. No aortic regurgitation. AORTIC ROOT: Normal diameter and appearance. PULMONIC VALVE: Normal thickness and mobility. No stenosis. Trivial regurgitation. PERICARDIUM: Small anterior pericardial effusion. IVC: Collapses with inspirations. IVC is normal in size. PLEURA: CONCLUSION: 1. Left ventricular systolic function is normal. LVEF is 60 to 65%. 2. Mildly dilated right ventricle with normal systolic function. 3. Mild to moderate tricuspid regurgitation. 4. Mildly elevated right-sided pressures. 5. Small anterior pericardial effusion. Adult Echocardiography Procedure Report Left Ventricle Left Atrium Mitral Valve Right Ventricle Aorta Aortic Valve Peak Velocity (Antegrade Flow): 1.18 m/s AoV Area (Peak Cory): 2.29 cm2, 2.29 cm2 Peak Velocity(Antegrade Flow): 1.18 m/s Peak Gradient(Antegrade Flow): 5.58 mm[Hg] Tricuspid Valve Peak Velocity (Regurgitant Flow): 2.86 m/s, 2.36 m/s, 2.97 m/s Peak Velocity: 0.63 m/s Pulmonic Valve PV Max Cory (0.6 - 0.9 m per sec): 0.83 m/s PV Max Gradient: 2.73 mm[Hg] Right Atrium Dictated by: Thomas Herrera M.D. on 01/06/2022 at 17:11 Approved by: Thomas Herrera M.D. on 01/06/2022 at 17:18 Normal [facility] PTH INTACTon 12-11-2021 PTH, Intact 31 pg/mL Normal 15-65 [facility] Comment on above: Performed By: #### C MP, HSTROPN #### [facility] [address] [place] [address] Dr. Sahil Turk FERRITINon 12-10-2021 Ferritin [Mass/Vol] 53.0 ng/mL Normal 8.0-252.0 [facility] Comment on above: Performed By: #### C MP, HSTROPN #### [facility] [address] [place] [address] Dr. Sahil Turk HEMOGRAM AND PLATELon 2021 Hematocrit (Bld) [Volume fraction] 38.4 % Normal 36.0-48.0 [facility] Comment on above: Performed By: #### M G, RENAL, URIC #### [facility] [address] [place] [address] Dr. Sahil Turk Hemoglobin (Bld) [Mass/Vol] 12.5 g/dL Normal 12.0-16.0 [facility] Comment on above: Performed By: #### M G, RENAL, URIC #### [facility] [address] [place] [address] Dr. Sahil Turk MCH (RBC) [Entitic mass] 29.4 pg Normal 26.7-34.0 [facility] Comment on above: Performed By: #### M G, RENAL, URIC #### [facility] [address] [place] [address] Dr. Sahil Turk MCHC (RBC) [Mass/Vol] 32.6 g/dL Normal 29.9-35.2 [facility] Comment on above: Performed By: #### M G, RENAL, URIC #### [facility] [address] [place] [address] Dr. Sahil Turk MCV (RBC) [Entitic vol] 90.4 fL Normal 81.0-99.0 [facility] Comment on above: Performed By: #### M G, RENAL, URIC #### [facility] [address] [place] [address] Dr. Sahil Turk PLT 263 103/ul Normal 150-450 [facility] Comment on above: Performed By: #### M G, RENAL, URIC #### [facility] [address] [place] [address] Dr. Sahil Turk RBC 4.25 106/ul Normal 4.20-5.40 [facility] Comment on above: Performed By: #### M G, RENAL, URIC #### [facility] [address] [place] [address] Dr. Sahil Turk WBC 7.1 103/ul Normal 4.0-11.0 [facility] Comment on above: Performed By: #### M G, RENAL, URIC #### [facility] [address] [place] [address] Dr. Sahil Turk IRON AND TIBCon 12-10-2021 % SATURATION 20.3 % Normal [facility] Comment on above: Performed By: #### C MP HSTROPN #### [facility] [address] [place] [address] Dr. Sahil Turk Iron [Mass/Vol] 61.0 ug/dL Normal 50.0-170.0 [facility] Comment on above: Performed By: #### C JAYY HSTROPN #### [facility] [address] [place] [address] Dr. Sahil Turk TIBC DIRECT 300.0 ug/dL Normal 250.0-450.0 [facility] Comment on above: Performed By: #### C MP, HSTROPN #### [facility] [address] [place] [address] Dr. Sahil Turk MAGNESIUMon 12-10-2021 Magnesium [Mass/Vol] 1.7 mg/dL Critically low 1.8-2.4 [facility] Comment on above: Performed By: #### M G, RENAL, URIC #### [facility] [address] [address] [address] Sahil Turk RENAL FUNCTION PANELon 12-10 Albumin [Mass/Vol] 3.7 g/dL Normal 3.4-5.0 [facility] Comment on above: Performed By: #### M G, RENAL, URIC #### [facility] [address] [address] [address] Sahil Turk Calcium [Mass/Vol] 9.6 mg/dL Normal 8.5-10.[address] [facility] Comment on above: Performed By: #### M G, RENAL, URIC #### [facility] [address] [address] [address] Sahil Turk Chloride [Moles/Vol] 102 mmol/L Normal 98-107 [facility] Comment on above: Performed By: #### M G, RENAL, URIC #### [facility] [address] [place] [address] Dr. Sahil Turk CO2 [Moles/Vol] 28.3 mmol/L Normal 21.0-32.0 [facility] Comment on above: Performed By: #### M G, RENAL, URIC #### [facility] [address] [address] [address] Sahil Turk Creatinine [Mass/Vol] 1.42 mg/dL Critically high 0.55-1.02 [facility] Comment on above: Performed By: #### M G, RENAL, URIC #### [facility] [address] [address] [address] Sahil Turk EGFR-AF MAURITIAN 43 mL/min/1.73m2 Critically low >=60 [facility] Comment on above: Performed By: #### M G, RENAL, URIC #### [facility] [address] [address] [address] Sahil Turk EGFR-NON AF MAURITIAN 36 mL/min/1.73m2 Critically low >=60 [facility] Comment on above: Performed By: #### M G, RENAL, URIC #### [facility] [address] [address] [address] Sahil Turk Glucose [Mass/Vol] 112 mg/dL Critically high 74-106 [facility] Comment on above: Performed By: #### M G, RENAL, URIC #### [facility] [address] [place] [address] Dr. Sahil Turk Phosphate [Mass/Vol] 3.4 mg/dL Normal 2.6-4.7 [facility] Comment on above: Performed By: #### M G, RENAL, URIC #### [facility] [address] [place] [address] Dr. Sahil Turk Potassium [Moles/Vol] 3.9 mmol/L Normal 3.5-5.1 [facility] Comment on above: Performed By: #### M G, RENAL, URIC #### [facility] [address] [place] [address] Dr. Sahil Turk Sodium [Moles/Vol] 140 mmol/L Normal 136-145 [facility] Comment on above: Performed By: #### M G, RENAL, URIC #### [facility] [address] [place] [address] Dr. Sahil Turk Urea nitrogen [Mass/Vol] 29.0 mg/dL Critically high 7.0-18 .0 [facility] Comment on above: Performed By: #### M G, RENAL, URIC #### [facility] [address] [place] [address] Dr. Sahil Turk UA RANDOM W/MICROSCOPICon BACTERIA NONE SEEN Normal NONE SEEN [facility] Comment on above: Performed By: #### M G, RENAL, URIC #### [facility] [address] [place] [address] Dr. Sahil Turk Bilirubin Ql (U) Negative Normal NEGATIVE [facility] Comment on above: Performed By: #### M G, RENAL, URIC #### [facility] [address] [place] [address] Dr. Sahil Turk CAST NONE SEEN Normal NONE SEEN [facility] Comment on above: Performed By: #### M G, RENAL, URIC #### [facility] [address] [place] [address] Dr. Sahil Turk Clarity (U) CLEAR Normal CLEAR [facility] Comment on above: Performed By: #### M G, RENAL, URIC #### [facility] [address] [address] [address] Sahil Turk Color (U) LT. YELLOW Normal YELLOW [facility] Comment on above: Performed By: #### M G, RENAL, URIC #### [facility] [address] [address] [address] Sahil Turk Crystals LM Nom (Urine sed) NONE SEEN Normal NONE SEEN [facility] Comment on above: Performed By: #### M G, RENAL, URIC #### [facility] [address] [address] [address] Sahil Turk Epithelial cells LM Ql (Urine sed) NONE SEEN Normal NONE SEEN /RARE [facility] Comment on above: Performed By: #### M G, RENAL, URIC #### [facility] [address] [place] [address] Dr. Sahil Turk Glucose Ql (U) Negative Normal NEGATIVE [facility] Comment on above: Performed By: #### M G, RENAL, URIC #### [facility] [address] [address] [address] Sahil Turk Hemoglobin Ql (U) Negative Normal NEGATIVE [facility] Comment on above: Performed By: #### M G, RENAL, URIC #### [facility] [address] [address] [address] Sahil Turk Ketones Ql (U) Negative Normal NEGATIVE [facility] Comment on above: Performed By: #### M G, RENAL, URIC #### [facility] [address] [address] [address] Sahil Turk LEUKOCYTES Negative Normal NEGATIVE [facility] Comment on above: Performed By: #### M G, RENAL, URIC #### [facility] [address] [address] [address] Sahil Turk MUCOUS NONE SEEN Normal NONE SEEN [facility] Comment on above: Performed By: #### M G, RENAL, URIC #### [facility] [address] [address] [address] Sahil Turk Nitrite Ql (U) Negative Normal NEGATIVE [facility] Comment on above: Performed By: #### M G, RENAL, URIC #### [facility] [address] [address] [address] Sahil Turk pH (U) 7.0 [pH] Normal 5-9 [facility] Comment on above: Performed By: #### M G, RENAL, URIC #### [facility] [address] [address] [address] Sahil Turk RBC NONE SEEN Abnormal 0-2 [facility] Comment on above: Performed By: #### M G, RENAL, URIC #### [facility] [address] [address] [address] Sahil Turk SPEC GRAVITY 1.010 Normal 1.005-<=1.0 25 [facility] Comment on above: Performed By: #### M G, RENAL, URIC #### [facility] [address] [place] [address] Dr. Sahil Turk UA PROTEIN Negative Normal NEGATIVE/ TRACE [facility] Comment on above: Performed By: #### M G, RENAL, URIC #### [facility] [address] [address] [address] Sahil Turk Urobilinogen Qn (U) 0.2 {Macie'U}/dL Normal 0.2 - 1. 0 [facility] Comment on above: Performed By: #### M G, RENAL, URIC #### [facility] [address] [address] [address] Sahil Turk WBC NONE SEEN Normal NONE SEEN [facility] Comment on above: Performed By: #### M G, RENAL, URIC #### [facility] [address] [address] [address] Sahil Turk URIC ACID SERUMon 12-10-2021 Urate [Mass/Vol] 6.6 mg/dL Critically high 2.6-6.0 [facility] Comment on above: Performed By: #### M G, RENAL, URIC #### [facility] [address] [address] [address] Sahil Turk URINE T PROTEIN CREAT RATIOo n 12-10-2021 UR TOTAL PROTEIN <6.0 Normal <=12.0 [facility] Comment on above: Performed By: #### U RTPCR #### [facility] [address] [address] [address] Sahil Turk URINE CREAT <13.00 Critically low 20.00-300.0 0 [facility] Comment on above: Performed By: #### U RTPCR #### [facility] [address] [address] [address] Sahil Turk VITAMIN D 25 OHon 12-10-2021 VIT D 25-OH 91.7 ng/mL Normal [facility] Comment on above: Performed By: #### C MP, HSTROPN #### [facility] [address] [place] [address] Dr. Sahil Turk VIT D RANGES SEE BELOW Normal [facility] Comment on above: Result Comment: <20 ng/mL Vit D deficient 20 - <30 ng/mL Vit D insufficient 30 - 100 ng/mL Vit D sufficient >100 ng/mL Potential Toxicity Performed By: #### C MP, HSTROPN #### [facility] [address] [place] [address] Dr. Sahil Turk US KEVIN DOP LEG BILon 022 US KEVIN DOP LEG OLIVIA EXAMINATION: US KEVIN DOP LEG OLIVIA HISTORY: Pain in right leg ; bilateral leg swelling COMPARISON: No relevant comparison available. FINDINGS: REGION: Bilateral lower extremities THROMBI: None. COMPRESSIBILITY: Normal compressibility. FLOW: Normal waveform and antegrade flow between 5 and 20 cm/s. OTHER: None. IMPRESSION: 1. No deep vein thrombus within the right or left lower extremity. Electronically authenticated by: LINDA REED Date: 2021-11-16 16:33 Normal [facility] FERRITINon 06-13-2021 Ferritin [Mass/Vol] 44 ng/mL Normal 15-150 [facility] Comment on above: Performed By: #### U RTPCR #### [facility] [address] [place] [address] Dr. Sahil Turk PTH INTACTon 06-13-2021 PTH, Intact 53 pg/mL Normal 15-65 [facility] Comment on above: Performed By: #### P THINT #### [facility] [address] [address] [address] Sahil Turk VIT D 25-OH [facility]on 2021 Vitamin D, 25-Hydroxy 50.5 ng/mL Normal 30.0-100.0 [facility] Comment on above: Result Comment: Barbie min D deficiency has been defined by the [place] [employer] and an Endocrine Society practice guideline as a level of serum 25-OH vitamin D less than 20 ng/mL (1,2). The Endocrine Society went on to further define vitamin D insufficiency as a level between 21 and 29 ng/mL (2). 1. IOM ([place] of [employer]). 2010. Dietary reference intakes for calcium and D. [place]: The National Academies Press. 2. Benjamín MF, Vikram GOSS, Kira HERNANDEZ, et al. Evaluation, treatment, and prevention of vitamin D deficiency: an Endocrine Society clinical practice guideline. JCEM. 2010; 96(7):1911-30. Performed By: #### M G, RENAL, URIC #### [facility] [address] [address] [address] Sahil Turk HEMOGRAM AND PLATELon 2021 Hematocrit (Bld) [Volume fraction] 37.7 % Normal 36.0-48.0 [facility] Comment on above: Performed By: #### M G, RENAL, URIC #### [facility] [address] [address] [address] Sahil Turk Hemoglobin (Bld) [Mass/Vol] 12.2 g/dL Normal 12.0-16.0 [facility] Comment on above: Performed By: #### M G, RENAL, URIC #### [facility] [address] [address] [address] Sahil Turk MCH (RBC) [Entitic mass] 29.9 pg Normal 26.7-34.0 [facility] Comment on above: Performed By: #### M G, RENAL, URIC #### [facility] [address] [address] [address] Sahil Turk MCHC (RBC) [Mass/Vol] 32.4 g/dL Normal 29.9-35.2 [facility] Comment on above: Performed By: #### M G, RENAL, URIC #### [facility] [address] [address] [address] Sahil Turk MCV (RBC) [Entitic vol] 92.4 fL Normal 81.0-99.0 [facility] Comment on above: Performed By: #### M G, RENAL, URIC #### [facility] [address] [address] [address] Sahil Turk PLT 246 103/ul Normal 150-450 [facility] Comment on above: Performed By: #### M G, RENAL, URIC #### [facility] [address] [place] [address] Dr. Sahil Turk RBC 4.08 106/ul Critically low 4.20-5.40 [facility] Comment on above: Performed By: #### M G, RENAL, URIC #### [facility] [address] [place] [address] Dr. Sahil Turk WBC 5.7 103/ul Normal 4.0-11.0 [facility] Comment on above: Performed By: #### M G, RENAL, URIC #### [facility] [address] [place] [address] Dr. Sahil Turk IRON AND TIBCon 06-12-2021 % SATURATION 18.3 % Normal [facility] Comment on above: Performed By: #### U RTPCR #### [facility] [address] [place] [address] Dr. Sahil Turk Iron [Mass/Vol] 54.0 ug/dL Normal 37.0-170.0 [facility] Comment on above: Performed By: #### U RTPCR #### [facility] [address] [place] [address] Dr. Sahil Turk TIBC DIRECT 295.0 ug/dL Normal 261.0-497.0 [facility] Comment on above: Performed By: #### U RTPCR #### [facility] [address] [place] [address] Dr. Sahil Turk MAGNESIUMon 06-12-2021 Magnesium [Mass/Vol] 1.9 mg/dL Normal 1.6-2.3 [facility] Comment on above: Performed By: #### R ENAL, URIC, MG #### [facility] [address] [address] [address] Sahil Turk RENAL FUNCTION PANELon 06-12 Albumin [Mass/Vol] 3.7 g/dL Normal 3.5-5.[address] [facility] Comment on above: Performed By: #### R ENAL, URIC, MG #### [facility] [address] [place] [address] Dr. Sahil Turk Calcium [Mass/Vol] 9.7 mg/dL Normal 8.4-10.[address] [facility] Comment on above: Performed By: #### R ENAL, URIC, MG #### [facility] [address] [place] [address] Dr. Sahil Turk Chloride [Moles/Vol] 103 mmol/L Normal 98-107 [facility] Comment on above: Performed By: #### R ENAL, URIC, MG #### [facility] [address] [address] [address] Sahil Turk CO2 [Moles/Vol] 32.0 mmol/L Critically high 22.0-30.0 [facility] Comment on above: Performed By: #### R ENAL, URIC, MG #### [facility] [address] [address] [address] Sahil Turk Creatinine [Mass/Vol] 1.42 mg/dL Critically high 0.52-1.04 [facility] Comment on above: Performed By: #### R ENAL, URIC, MG #### [facility] [address] [address] [address] Sahil Turk EGFR-AF MAURITIAN 43 mL/min/1.73m2 Critically low >=60 [facility] Comment on above: Performed By: #### R ENAL, URIC, MG #### [facility] [address] [address] [address] Sahil Turk EGFR-NON AF MAURITIAN 36 mL/min/1.73m2 Critically low >=60 [facility] Comment on above: Performed By: #### R ENAL, URIC, MG #### [facility] [address] [address] [address] Sahil Turk Glucose [Mass/Vol] 101 mg/dL Normal 74-[address] [facility] Comment on above: Performed By: #### R ENAL, URIC, MG #### [facility] [address] [address] [address] Sahil Turk Phosphate [Mass/Vol] 3.3 mg/dL Normal 2.5-4.5 [facility] Comment on above: Performed By: #### R ENAL, URIC, MG #### [facility] [address] [place] [address] Dr. Sahil Turk Potassium [Moles/Vol] 4.1 mmol/L Normal 3.4-5.0 [facility] Comment on above: Performed By: #### R ENAL, URIC, MG #### [facility] [address] [place] [address] Dr. Sahil Turk Sodium [Moles/Vol] 142 mmol/L Normal 137-[address] [facility] Comment on above: Performed By: #### R ENAL, URIC, MG #### [facility] [address] [place] [address] Dr. Sahil Turk Urea nitrogen [Mass/Vol] 19.0 mg/dL Critically high 7.0-17 .0 [facility] Comment on above: Performed By: #### R ENAL, URIC, MG #### [facility] [address] [place] [address] Dr. Sahil Turk UA RANDOM W/MICROSCOPICon BACTERIA LARGE Abnormal NONE SEEN [facility] Comment on above: Performed By: #### M G, RENAL, URIC #### [facility] [address] [place] [address] Dr. Sahil Turk Bilirubin Ql (U) Negative Normal NEGATIVE [facility] Comment on above: Performed By: #### M G, RENAL, URIC #### [facility] [address] [address] [address] Sahil Turk CAST NONE SEEN Normal NONE SEEN [facility] Comment on above: Performed By: #### M G, RENAL, URIC #### [facility] [address] [address] [address] Sahil Turk Clarity (U) SL CLOUDY Abnormal CLEAR [facility] Comment on above: Performed By: #### M G, RENAL, URIC #### [facility] [address] [address] [address] Sahil Turk Color (U) LT. YELLOW Normal YELLOW [facility] Comment on above: Performed By: #### M G, RENAL, URIC #### [facility] [address] [address] [address] Sahil Turk Crystals LM Nom (Urine sed) NONE SEEN Normal NONE SEEN [facility] Comment on above: Performed By: #### M G, RENAL, URIC #### [facility] [address] [address] [address] Sahil Turk Epithelial cells LM Ql (Urine sed) RARE Normal NONE SEEN /RARE [facility] Comment on above: Performed By: #### M G, RENAL, URIC #### [facility] [address] [address] [address] Sahil Turk Glucose Ql (U) Negative Normal NEGATIVE [facility] Comment on above: Performed By: #### M G, RENAL, URIC #### [facility] [address] [address] [address] Sahil Turk Hemoglobin Ql (U) Negative Normal NEGATIVE [facility] Comment on above: Performed By: #### M G, RENAL, URIC #### [facility] [address] [address] [address] Sahil Turk Ketones Ql (U) Negative Normal NEGATIVE [facility] Comment on above: Performed By: #### M G, RENAL, URIC #### [facility] [address] [address] [address] Sahil Turk LEUKOCYTES SMALL Abnormal NEGATIVE [facility] Comment on above: Performed By: #### M G, RENAL, URIC #### [facility] [address] [address] [address] Sahil Turk MUCOUS NONE SEEN Normal NONE SEEN [facility] Comment on above: Performed By: #### M G, RENAL, URIC #### [facility] [address] [place] [address] Dr. Sahil Turk Nitrite Ql (U) Positive Abnormal NEGATIVE [facility] Comment on above: Performed By: #### M G, RENAL, URIC #### [facility] [address] [address] [address] Sahil Turk pH (U) 8.0 [pH] Normal 5-9 [facility] Comment on above: Performed By: #### M G, RENAL, URIC #### [facility] [address] [place] [address] Dr. Sahil Turk RBC 0-2 Normal 0-2 [facility] Comment on above: Performed By: #### M G, RENAL, URIC #### [facility] [address] [place] [address] Dr. Sahil Turk SPEC GRAVITY 1.015 Normal 1.005-<=1.0 25 [facility] Comment on above: Performed By: #### M G, RENAL, URIC #### [facility] [address] [place] [address] Dr. Sahil Turk UA PROTEIN Negative Normal NEGATIVE/ TRACE [facility] Comment on above: Performed By: #### M G, RENAL, URIC #### [facility] [address] [place] [address] Dr. Sahil Turk Urobilinogen Qn (U) 0.2 {Macie'U}/dL Normal 0.2 - 1. 0 [facility] Comment on above: Performed By: #### M G, RENAL, URIC #### [facility] [address] [place] [address] Dr. Sahil Turk WBC 10-20 Abnormal NONE SEEN [facility] Comment on above: Performed By: #### M G, RENAL, URIC #### [facility] [address] [place] [address] Dr. Sahil Turk URIC ACID SERUMon 06-12-2021 Urate [Mass/Vol] 7.7 mg/dL Critically high 2.5-6.2 [facility] Comment on above: Performed By: #### R ENAL, URIC, MG #### [facility] [address] [address] [address] Sahil Turk URINE T PROTEIN CREAT RATIOo n 06-12-2021 Protein (U) [Mass/Vol] 24.9 mg/dL Critically high <=12.0 [facility] Comment on above: Performed By: #### C MP, HSTROPN #### [facility] [address] [address] [address] Sahil Turk UR PROT CREAT RAT 0.33 Normal [facility] Comment on above: Performed By: #### C MP, HSTROPN #### [facility] [address] [address] [address] Sahil Turk URINE CREAT 76.21 mg/dL Normal 20.00-300.0 0 [facility] Comment on above: Performed By: #### C MP, HSTROPN #### [facility] [address] [address] [address] Sahil Turk Vital Signs Date Time Vital Sign Value Performing Clinician Facility 03-07-2023 10:15-040 Body height 152.4 cm Harpal Hayes Other [facility] 03-07-2023 10:15-0400 Body mass index (BMI) [Ratio] 36.83 kg/m2 Harpal Hayes Other [facility] 03-07-2023 10:15-0400 Body weight 85.55 kg Harpal Hayes Other [facility] 03-07-2023 10:15-0400 Diastolic blood pressure 82 mm[Hg] Harpal Hayes Other [facility] 03-07-2023 10:15-0400 SaO2% (BldA) [Mass fraction] 93 % Harpal Hayes Other [facility] 03-07-2023 10:15-0400 Systolic blood pressure 140 mm[Hg] Harpal Hayes Other [facility] 12-20-2022 11:20-0400 Body height 152.4 cm Yaneth Germania Other [facility] 12-20-2022 11:20-0400 Body temperature 96.7 [degF] Yaneth Germania Other [facility] 12-20-2022 11:20-0400 Diastolic blood pressure 67 mm[Hg] Yaneth Germania Other [facility] 12-20-2022 11:20-0400 Respiratory rate 18 /min Yaneth Germania Other [facility] 12-20-2022 11:20-0400 SaO2% (BldA) [Mass fraction] 97 % Yaneth Germania Other [facility] 12-20-2022 11:20-0400 Systolic blood pressure 104 mm[Hg] Yaneth Germania Other [facility] 06-14-2022 12:40-0500 Body height 152.4 cm Yaneth Germania Other [facility] 06-14-2022 12:40-0500 Body mass index (BMI) [Ratio] 35.15 kg/m2 Yaneth Germania Other [facility] 06-14-2022 12:40-0500 Body temperature 97.3 [degF] Yaneth Germania Other [facility] 06-14-2022 12:40-0500 Body weight 81.65 kg Yaneth Germania Other [facility] 06-14-2022 12:40-0500 Diastolic blood pressure 73 mm[Hg] Yaneth Germania Other [facility] 06-14-2022 12:40-0500 Respiratory rate 18 /min Yaneth Germania Other [facility] 06-14-2022 12:40-0500 SaO2% (BldA) [Mass fraction] 95 % Yaneth Germania Other [facility] 06-14-2022 12:40-0500 Systolic blood pressure 115 mm[Hg] Yaneth Germania Other [facility] 01-08-2022 03:50-0400 Diastolic blood pressure 80 mm[Hg] [facility] 01-08-2022 03:50-0400 Heart rate 82 /min [facility] 01-08-2022 03:50-0400 Respiratory rate 16 /min [facility] 01-08-2022 03:50-0400 SaO2% (BldA) [Mass fraction] 100 % [facility] 01-08-2022 03:50-0400 Systolic blood pressure 140 mm[Hg] [facility] 06-18-2021 12:00-0500 Body height 152.4 cm Yaneth Germania Other [facility] 06-18-2021 12:00-0500 Body temperature 96.3 [degF] Yaneth Germania Other [facility] 06-18-2021 12:00-0500 Diastolic blood pressure 74 mm[Hg] Yaneth Germania Other [facility] 06-18-2021 12:00-0500 Respiratory rate 18 /min Yaneth Germania Other [facility] 06-18-2021 12:00-0500 SaO2% (BldA) [Mass fraction] 96 % Yaneth Germania Other [facility] 06-18-2021 12:00-0500 Systolic blood pressure 120 mm[Hg] Yaneth Germania Other [facility] Other Encounters Encounter Date Encounter Type Care Provider Facility Start: 05-24-2023 End: 05-24-2023 ambulatory Harpal Hayes Other [facility] Start: 05-24-2023 Telephone encounter Harpal Freddy [facility] Start: 05-18-2023 End: 05-18-2023 ambulatory Harpal Freddy Other [facility] Start: 05-18-2023 Telephone encounter Harpal Freddy [facility] Start: 05-09-2023 End: 05-09-2023 ambulatory Harpal Freddy Other [facility] Start: 05-09-2023 Telephone encounter Harpal Freddy [facility] Start: 03-15-2023 End: 03-15-2023 ambulatory Harpal Freddy Other [facility] Start: 03-15-2023 Telephone encounter Harpal Freddy [facility] Start: 03-07-2023 End: 03-07-2023 ambulatory Harpal Hayes Other [facility] Start: 03-07-2023 Office outpatient vi sit 25 minutes Harpal Hayes [facility] Start: 03-07-2023 Telephone encounter Harpal Hayes [facility] Start: 02-23-2023 End: 02-23-2023 ambulatory Harpal Hayes Other [facility] Start: 02-23-2023 Telephone encounter Harpal Hayes [facility] Start: 02-18-2023 End: 02-18-2023 ambulatory Harpal Hayes Other [facility] Start: 02-18-2023 Telephone encounter Harpal Hayes [facility] Start: 01-27-2023 End: 01-27-2023 ambulatory Harpal Hayes Other [facility] Start: 01-27-2023 Telephone encounter Harpal Hayes [facility] Start: 01-11-2023 End: 01-11-2023 ambulatory Harpal Hayes Other [facility] Start: 01-11-2023 Telephone encounter Harpal Hayes [facility] Start: 12-20-2022 End: 12-20-2022 ambulatory Yaneth Germania Other [facility] Start: 12-20-2022 Office outpatient vi sit 25 minutes Yaneth Germania [facility] Start: 12-16-2022 End: 12-17-2022 ambulatory Nadege Abraham Facility:[id number] Start: 12-06-2022 End: 12-07-2022 ambulatory Kimberly [facility]ARE[facility] Other Start: 12-06-2022 Telephone encounter Yaneth Germania [facility] Start: 12-06-2022 End: 12-06-2022 Off-Site [facility] Start: 12-03-2022 End: 12-17-2022 ambulatory Og TOLBERT Facility:[facility] Start: 12-03-2022 End: 12-17-2022 Evaluation and management of inpatient Og TOLBERT [facility] Start: 12-02-2022 End: 12-03-2022 Evaluation and management of inpatient Emma SALINAS Facility:[facility] Start: 12-01-2022 End: 12-02-2022 ambulatory Nadege Abraham Facility:[id number] Start: 12-01-2022 End: 12-01-2022 Off-Site N[facility]ge [facility] Start: 11-15-2022 End: 11-16-2022 ambulatory Og TOLBERT Facility:CD:[id number] Start: 11-15-2022 End: 11-15-2022 Off-Site [facility] Start: 11-14-2022 End: 12-01-2022 ambulatory Og TOLBERT Facility:[facility] Start: 11-14-2022 End: 12-01-2022 Evaluation and management of inpatient Og TOLBERT [facility] Start: 11-11-2022 End: 11-14-2022 Evaluation and management of inpatient Aba Falcon Facility:[facility] Start: 06-14-2022 End: 06-14-2022 ambulatory Yaneth Germania Other [facility] Start: 06-14-2022 Office outpatient vi sit 25 minutes Yaneth Germania [facility] Start: 06-09-[address] HARPAL HAYES [facility] ity:[facility] Start: 05-27-2022 End: 05-27-[address] SULEMAN OLSEN Facility:[facility] Start: 04-26-2022 Gynecological examination normal Harpal Hayes Other [facility] Start: 04-23-2022 End: 04-23-2022 ambulatory EHAB [facility] Start: 03-11-2022 End: 03-11-2022 ambulatory CHRISTOPHER ABARCA Facility:[facility] Start: 02-21-2022 End: 02-21-2022 ambulatory ANDRADE LEWIS Facility:[facility] Start: 02-18-2022 End: 02-24-2022 ambulatory UNKNOWN PROVIDER Facility:[facility] Start: 01-08-2022 End: 01-08-2022 ambulatory [facility] Triage, Treat and Transport Start: 01-08-2022 End: 01-08-2022 Emergency department patient visit [facility] Emergency Triage, Treat and Transport Comment on above: Arrived Start: 01-06-2022 End: 01-07-2022 ambulatory MEI DAS Facility:[facility] Start: 12-10-2021 End: 12-11-2021 ambulatory YANETH GERMANIA Facility:[facility] Start: 11-16-2021 End: 11-17-[address] LINDA REED Facility:[facility] Start: 09-28-2021 End: 10-28-[address] HARPAL HAYES Facility:[facility] Start: 08-31-[address] HARPAL HAYES Facil ity:[facility] Start: 06-18-2021 End: 06-18-2021 ambulatory Yaneth Germania Other [facility] Start: 06-18-2021 Office outpatient vi sit 25 minutes Yaneth Germania [facility] Start: 06-12-2021 End: 06-13-2021 ambulatory YANETH GERMANIA Facility:[facility] Start: 06-09-2017 End: 06-10-2017 Ambulatory DEFAULT PHYSICIAN Facility:[facility] Start: 06-07-2017 End: 06-08-2017 Ambulatory DEFAULT PHYSICIAN Facility:[facility] Start: 06-02-2017 End: 06-03-2017 Ambulatory DEFAULT PHYSICIAN Facility:[facility] Start: 05-10-2017 End: 05-11-2017 Ambulatory DEFAULT PHYSICIAN Facility:[facility] Procedures Date Procedure Procedure Detail Performing Clinician Depression screening Harpal Hayes Other History of operative procedure on knee Yaneth Solo Other None (qualifier value) Tena TOLBERT Removal of suture Harpal Ayoub gerard Other Screening for malign ant neoplasm of breast Harpal Hayes Other Plan of Treatment Date Care Activity Detail Author Start: 03-06-2022 Influenza vaccination Influenza Vacc ine (#1) [facility] Start: 01-08-2022 Welcome to Medicare Visit (G0402) Welcome to Medicare Visit (G0402) [facility] Start: 2009 Pneumococcal vaccination Pneum ococcal Vaccine(s) (65+ yrs) (1 - PCV) [facility] Start: 2009 Screening for osteoporosis Bone Dens itometry [facility] Start: 1994 Shingles (RZV) Vacci ne (1 of 2) Shingles (RZV) Vaccine (1 of 2) [facility] Start: 1962 Hepatitis C screening Hepatitis C An tibody [facility] Start: 1962 Tetanus + diphtheria + acellular pertussis vaccine (product) Tdap Booster [facility] Start: 1944 COVID-19 Vaccine (#1) COVID-19 Vacci ne (#1) [facility] Immunizations Immunization Date Immunization Notes Care Provider Fa cility NEGATED: Highlighted row has not occurred! 6 pneumococcal polysaccharide vaccine, 23 valent Patient Objection Yaneth Solo Other [facility] Other Payers Date Payer Category Payer Medicare MEDICARE MEDICAR E PART A & B [id number] 2022-Present [address] [place] [address] Medicare [id number] 1959 Medicare [id number] 1944 Unknown [id number] 2.16.840.1.341866.3.579.2.732 1944 Unknown [id number] 2.16.840.1.831065.3.579.2.593 1944 Unknown [id number] 2.16.840.1.327949.3.579.2.593 1944 Unknown [id number] 2.16.840.1.133133.3.579.2.593 1944 Unknown [id number] 2.16.840.1.021915.3.579.2.593 1944 Unknown [id number] 2.16.840.1.172485.3.579.2.593 1944 Unknown [id number] 2.16.840.1.862705.3.579.2.593 1944 Unknown [id number] 2.16.840.1.866239.3.579.2.593 1944 Unknown [id number] 2.16.840.1.089197.3.579.2.593 1944 Unknown [id number] 2.16.840.1.970912.3.579.2.593 1944 Unknown [id number] 2.16.840.1.795670.3.579.2.593 1944 Unknown [id number] 2.16.840.1.449460.3.579.2.727 1944 Unknown [id number] 2.16.840.1.606946.3.579.2.727 1944 Unknown [id number] 2.16.840.1.675660.3.579.2.727 1944 Unknown [id number] 2.16.840.1.124920.3.579.2.727 1944 Unknown [id number] 2.16.840.1.843650.3.579.2.727 1944 Unknown [id number] 2.16.840.1.798177.3.579.2.727 1944 Unknown [id number] 2.16.840.1.512972.3.579.2.727 1944 Unknown [id number] 2.16.840.1.043526.3.579.2.727 Unknown Social History Date Type Detail Facility Unknown if ever smoked [facility] Other Sex Assigned At [facility] Tobacco smoking status [facility] Start: 1945 Sex [facility]igned [facility] smoking status No Smoking Status Entered [facility] Clinical Notes 06-18-2021 to 03-07-2023 Note Date & Type Note Facility 03-07-2023 Evaluation note Encounter Date Diagnosis Assessment Notes Mar, Lumbosacral spondylosis (ICD-10 - M47.817) [place] refilled. Requests to increase dose due to chronic pain. Reviewed [facility] Followup in 3 months. Mar, Fibromyalgia (ICD-10 - M79.7) as above. Mar, Incontinence in female (ICD-10 - R32) Keep scheduled appt w Urology. Mar, Essential primary hypertension (ICD-10 - I10) Blood pressure remains well controlled at this time. Denies cardiac symptoms. Shows no signs or symptoms or poor control. Patient to continue with above medication and we will continue to monitor. Advised to pay attention to body and symptoms. Any developing patterns. Stay well hydrated. [facility] Other 08-08-2023 Evaluation note* Encounter Date Diagnosis Assessment Notes Treatment Notes Treatment Clinical Notes Jan, Hypertensive chronic kidney disease with stage 1 through stage 4 chronic kidney disease, or unspecified chronic kidney disease (ICD-10 - I12.9) [facility] 07-17-2023 Evaluation note* Encounter Date Diagnosis Assessment Notes Treatment Notes Treatment Clinical Notes Dec, Hypertensive chronic kidney disease with stage 1 through stage 4 chronic kidney disease, or unspecified chronic kidney disease (ICD-10 - I12.9) Her blood pressure is controlled and she appears to be mildly hypervolemic on exam. Continue current medications. I have advised her to monitor weight at home and if he gains 2 pounds in 24 hours or 5 pounds in a week call office. Advised to comply with fluid restriction and Lasix. Dec, Chronic kidney disea se, stage III (moderate) (ICD-10 - N18.30) She has a CKD due to the long-standing diabetes medicine hypertension. Her baseline serum Creatinine is 1.4-1.5 mg/dl. I have discussed with her the importance of good DM and HTN control to slow down the progression of disease. Her renal US showed b/l renal cortical atrophy. 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 Continue to follow with PCP for DM management. I explained to the patient and the daughter she may benefit with SGLT2 inhibitors including Farxiga or Jardiance. They can discuss with the PCP. I would recommend to stop the metformin if EGFR drop below 30 mm/min. Dec, Secondary hyperparathyroidism (ICD-10 - N25.81) MBD parameters within the goal. Decreasee oral Vit D 5000 units 3/week Dec, Gout (ICD-10 - M10.9) She hernandez s history of gout and has hyperuricemia. She want to monitor without medications Dec, Anemia of renal dise ase (ICD-10 - D63.1) Hemoglobin is within the goal and has low Iron stores. Continue oral Iron 3 x weeks. Advised to have a follow-up with a GI. Dec, Hypomagnesemia (ICD- 10 - E83.42) She still has a low magnesium. Continue oral magnesium Dec, UTI (lower urinary t ract infection) (ICD-10 - N39.0) She has a UTI. I prescribed oral amoxicillin. Also explained the side effects including diarrhea. I also explained to the daughter that if she has a persistent diarrhea she may need to be checked out for C. difficile due to the multiple course of antibiotics [facility] Other 07-07-2023 NoteMicrobiology PROCEDURE: Blood Culture Charcoal [R1] SOURCE: Blood BODY SITE: Hand R COLLECTED DATE/TIME: 12/02/2022 10:17 EDT RECEIVED DATE/TIME: 12/02/2022 11:01 EDT START DATE/TIME: 12/02/2022 11:01 EDT FREE TEXT SOURCE: IV start Maira DE JESUS, Bayron Rao PA-C, Bayron FINAL REPORTS Final Report [] Verified Date/Time: 12/09/2022 18:00 EDT No growth at 7 days. Performing Locations R1: [facility], [address] [place] [address], [address] [place] [address], [id number] Mills StreetComment on above:Performed By: #### [id number] #### [address] [id number] NoteMicrobiology PROCEDURE: Blood Culture Charcoal [R1] SOURCE: Blood BODY SITE: Arm L COLLECTED DATE/TIME: 12/02/2022 10:28 EDT RECEIVED DATE/TIME: 12/02/2022 11:01 EDT START DATE/TIME: 12/02/2022 11:01 EDT FREE TEXT SOURCE: lt lalen Rao PA-C, Bayron Rao PA-C, Bayron FINAL REPORTS Final Report [] Verified Date/Time: 12/09/2022 18:00 EDT No growth at 7 days. Performing Locations R1: This test was performed at: [facility] [facility], [address] [place] [address], [address] [place] [address], [id number] StreetComment on above:Performed By: #### [id number] ####[address] [id number] NoteAssessment/Plan 1. UTI (urinary tract infection) (N39.0: Urinary tract infection, site not specified) Failed outpatient Cipro therapy started on 11/29 -11/29: Ecoli UTI -Transition to IV ceftriaxone ? 12/02 - plan to transition to cefdinir at d/c Ordered: Initial Hospital Care/Day High 75 Minutes [id number] 2. Generalized weakness (R53.1: Weakness) Likely 2/2 UTI -Pt. d/c from TCU on 12/01 -CXR: No acute process -PT/OT - SNF -> CRM to arrange 3. Self-care deficit (Z78.9: Other specified health status) Pt. and family are concerned for her options of care [facility] vs. SNF -See above 4. Lactic acidosis (E87.20: Acidosis, unspecified) -IVF given in ED -Trend labs 5. Iron deficiency anemia (D50.9: Iron deficiency anemia, unspecified) Baseline hgb. level - 11.0 -12.0 -Ferrous sulfate -Anemia panel reviewed - no indication to adjust dosing -No acute bleeding noted, hemodynamically stable -Trend labs 6. HTN (hypertension) (I10: Essential (primary) hypertension) -Carvedilol, furosemide w/ K supplement 7. HLD (hyperlipidemia) (E78.5: Hyperlipidemia, unspecified) -Atorvastatin 8. Non-insulin dependent type 2 diabetes mellitus (E11.9: Type 2 diabetes mellitus without complications) Accuchecks AC/HS w/ SSI prn -Home regimen: Metformin -Hold metformin while inpatient -Hypoglycemic protocol 9. CKD (chronic kidney disease), stage III (N18.30: Chronic kidney disease, stage 3 unspecified) Baseline Cr 1.2 -Renal US & PVR - if Cr worsens -Consult nephrology - if Cr worsens -Trend BMP -Avoid nephrotoxic medications as much as possible 10. Dementia (F03.90: Unspecified dementia, unspecified severity, without behavioral disturbance, psychotic disturbance, mood disturbance, and anxiety) Pt. is A&O x 3, she is able to choose the president when given choices -Family states she does have intermittent memory loss and needs redirection/supervision -Trazodone -Promote sleep/wake cycle -Reorientation as needed 11. Hypothyroidism (E03.9: Hypothyroidism, unspecified) -Levothyroxine 12. Chronic pain (G89.29: Other chronic pain) -Tylenol 13. History of CVA in adulthood (Z86.73: Personal history of transient ischemic attack (TIA), and cerebral infarction without residual deficits) Family states memory loss is worse after CVA -Aspirin, atorvastatin, 14. Morbid obesity (E66.01: Morbid (severe) obesity due to excess calories) BMI 38 with multiple medical comorbid conditions -Educated on need for lifestyle modifications with goal of weight loss as obesity has a negative impact on co-morbid conditions 15. On deep vein thrombosis (DVT) prophylaxis (Z79.899: Other continuous churn buttermaker (current) drug therapy) -Heparin sq with early ambulation Orders: acetaminophen, 650 mg = 2 tab(s), Tab, Oral, q6hr PRN Pain, Routine, Start date 12/02/22 13:21:00 EDT, 12/02/22 13:21:00 EDT acetaminophen-hydrocodone, 1 tab(s), Tab, Oral, TID PRN Pain for 5 day(s), Stop date 12/07/22 18:29:00 EDT, Routine, Start date 12/02/22 18:30:00 EDT aspirin, 81 mg = 1 tab(s), Tab-EC, Oral, Daily, Routine, Start date 12/03/22 9:00:00 EDT, 12/02/22 13:22:00 EDT atorvastatin, 10 mg = 0.5 tab(s), Tab, Oral, Bedtime, Routine, Start date 12/02/22 21:00:00 EDT carvedilol, 6.25 mg = 1 tab(s), Tab, Oral, BID, Routine, Start date 12/02/22 21:00:00 EDT, Hold forsbp 110 or less or HR 55 or less ceftriaxone + Sodium Chloride 0.9% intravenous solution 50 mL, 1,000 mg = 1 EA, Injection, IV Piggyback, Daily, Routine, Start date 12/03/22 9:00:00 EDT, 100 mL/hr, Infuse over 30 minute(s) cholecalciferol, 250 mcg = 2 tab(s), Tab, Oral, MonWedFri, Routine, Start date 12/03/22 18:00:00 EDT ferrous sulfate, 325 mg = 1 tab(s), Tab, Oral, MonWedFri, Routine, Start date 12/03/22 18:00:00 EDT furosemide, 40 mg = 1 tab(s), Tab, Oral, Daily, Routine, Start date 12/03/22 9:00:00 EDT glucose, 50 mL, Soln-IV, IV Push, Once PRN Blood glucose, Routine, Start date 12/02/22 13:52:00 EDT heparin, 5,000 unit(s) = 1 mL, Injection, SubCutaneous, BID for 30 day(s), Stop date 01/01/23 20:59:00 EDT, Routine, Start date 12/02/22 21:00:00 EDT, 12/02/22 13:21:00 EDT insulin lispro, 0-10 Units, Injection-Insulin, SubCutaneous, QIDACHS, Routine, Start date 12/02/22 16:30:00 EDT levothyroxine, 50 mcg = 1 tab(s), Tab, Oral, Daily, Routine, Start date 12/03/22 6:30:00 EDT ondansetron, 4 mg = 2 mL, Injection, IV Push, q6hr PRN Nausea, Routine, Start date 12/02/22 13:21:00 EDT, 12/02/22 13:21:00 EDT polyethylene glycol 3350, 17 gm = 1 EA, Powder-Recon, Oral, Daily PRN Constipation, Routine, Start date 12/02/22 13:22:00 EDT, 12/02/22 13:22:00 EDT potassium chloride, 10 mEq = 1 cap(s), Cap-ER, Oral, BID, Routine, Start date 12/02/22 21:00:00 EDT pregabalin, 150 mg = 1 cap(s), Cap, Oral, BID, Routine, Start date 12/02/22 21:00:00 EDT ropinirole, 4 mg = 4 tab(s), Tab, Oral, Supper, Routine, Start date 12/02/22 13:23:00 EDT trazodone, 150 mg = 3 ta (more content not included)...[facility] HospitalComment on above:Result Comment: Electronically Signed By: Akua VALLE\.br\Date and Time Signed: 12/03/22 08:21 EDT\.br\Electronically Co- Signed By: Akua NICHOLSON\.br\Date and Time Co-Signed: 12/03/22 10:36 EDT\.br\Electronically Co-Signed By: Emma SALINAS MD\.br\Date and Time Co- Signed: 12/03/22 11:45 [id number] NotePT Evaluation done this date. Pt. with 04/29 on AM-PAC this date. She is very weak and requires modAx1 with all activity. She is a fall risk and would likely benefit from SNF.[facility]06-29-[facility] NoteAssessment/Plan 1. UTI (urinary tract infection) (N39.0: Urinary tract infection, site not specified) Failed outpatient Cipro therapy started on 11/29 -Urine cx. - pending -Transition to IV ceftriaxone ? 12/02 2. Generalized weakness (R53.1: Weakness) Likely 2/2 UTI -Pt. d/c from TCU on 12/01 -CXR: No acute process -PT/OT - pending 3. Self-care deficit (Z78.9: Other specified health status) Pt. and family are concerned for her options of care HHC vs. SNF -CRM to assist family 4. Lactic acidosis (E87.20: Acidosis, unspecified) -IVF given in ED -Trend labs 5. Iron deficiency anemia (D50.9: Iron deficiency anemia, unspecified) Baseline hgb. level - 11.0 -12.0 -Ferrous sulfate -Anemia panel - pending -No acute bleeding noted, hemodynamically stable -Trend labs 6. HTN (hypertension) (I10: Essential (primary) hypertension) -Carvedilol, furosemide w/ K supplement 7. HLD (hyperlipidemia) (E78.5: Hyperlipidemia, unspecified) -Atorvastatin 8. Non-insulin dependent type 2 diabetes mellitus (E11.9: Type 2 diabetes mellitus without complications) Accuchecks AC/HS w/ SSI prn -Home regimen: Metformin -Hold metformin while inpatient -Hypoglycemic protocol 9. CKD (chronic kidney disease), stage III (N18.30: Chronic kidney disease, stage 3 unspecified) Baseline Cr 1.2 -Renal US & PVR - if Cr worsens -Consult nephrology - if Cr worsens -Trend BMP -Avoid nephrotoxic medications as much as possible 10. Dementia (F03.90: Unspecified dementia, unspecified severity, without behavioral disturbance, psychotic disturbance, mood disturbance, and anxiety) Pt. is A&O x 3, she is able to choose the president when given choices -Family states she does have intermittent memory loss and needs redirection/supervision -Trazodone -Promote sleep/wake cycle -Reorientation as needed 11. Hypothyroidism (E03.9: Hypothyroidism, unspecified) -Levothyroxine 12. Chronic pain (G89.29: Other chronic pain) -Tylenol 13. History of CVA in adulthood (Z86.73: Personal history of transient ischemic attack (TIA), and cerebral infarction without residual deficits) Family states memory loss is worse after CVA -Aspirin, atorvastatin, 14. Morbid obesity (E66.01: Morbid (severe) obesity due to excess calories) BMI 38 with multiple medical comorbid conditions -Educated on need for lifestyle modifications with goal of weight loss as obesity has a negative impact on co-morbid conditions. 15. On deep vein thrombosis (DVT) prophylaxis (Z79.899: Other continuous churn buttermaker (current) drug therapy) -Heparin sq with early ambulation Orders: acetaminophen, 650 mg = 2 tab(s), Tab, Oral, q6hr PRN Pain, Routine, Start date 12/02/22 13:21:00 EDT, 12/02/22 13:21:00 EDT aspirin, 81 mg = 1 tab(s), Tab-EC, Oral, Daily, Routine, Start date 12/03/22 9:00:00 EDT, 12/02/22 13:22:00 EDT atorvastatin, 10 mg = 0.5 tab(s), Tab, Oral, Bedtime, Routine, Start date 12/02/22 21:00:00 EDT, 12/02/22 13:22:00 EDT carvedilol, 6.25 mg = 1 tab(s), Tab, Oral, BID, Routine, Start date 12/02/22 21:00:00 EDT, Hold forsbp 110 or less or HR 55 or less, 12/02/22 13:22:00 EDT ceftriaxone + Sodium Chloride 0.9% intravenous solution 50 mL, 1,000 mg = 1 EA, IV Piggyback, Daily, Routine, Start date 12/03/22 9:00:00 EDT, 100 mL/hr, Infuse over 30 minute(s), 12/02/22 13:21:00 EDT cholecalciferol, 250 mcg = 2 tab(s), Tab, Oral, MonWedFri, Routine, Start date 12/03/22 18:00:00 EDT, 12/02/22 13:22:00 EDT ferrous sulfate, 325 mg = 1 tab(s), Tab, Oral, MonWedFri, Routine, Start date 12/03/22 18:00:00 EDT, 12/02/22 13:22:00 EDT furosemide, 40 mg = 1 tab(s), Tab, Oral, Daily, Routine, Start date 12/03/22 9:00:00 EDT, 12/02/22 13:22:00 EDT glucose, 50 mL, Soln-IV, IV Push, Once PRN Blood glucose, Routine, Start date 12/02/22 13:52:00 EDT heparin, 5,000 unit(s) = 1 mL, Injection, SubCutaneous, BID for 30 day(s), Stop date 01/01/23 20:59:00 EDT, Routine, Start date 12/02/22 21:00:00 EDT, 12/02/22 13:21:00 EDT insulin lispro, 0-10 Units, Injection-Insulin, SubCutaneous, QIDACHS, Routine, Start date 12/02/22 16:30:00 EDT levothyroxine, 50 mcg = 1 tab(s), Tab, Oral, Daily, Routine, Start date 12/03/22 6:30:00 EDT, 12/02/22 13:22:00 EDT nystatin topical, 1 chantal, Powder, Topical, BID, Routine, Start date 12/02/22 21:00:00 EDT ondansetron, 4 mg = 2 mL, Injection, IV Push, q6hr PRN Nausea, Routine, Start date 12/02/22 13:21:00 EDT, 12/02/22 13:21:00 EDT polyethylene glycol 3350, 17 gm = 1 EA, Powder-Recon, Oral, Daily PRN Constipation, Routine, Start date 12/02/22 13:22:00 EDT, 12/02/22 13:22:00 EDT potassium chloride, 10 mEq = 1 cap(s), Cap-ER, Oral, BID, Routine, Start date 12/02/22 21:00:00 EDT, 12/02/22 13:23:00 EDT pregabalin, 150 mg = 1 cap(s), Cap, Oral, BID, Routine, Start date 12/02/22 21:00:00 EDT, 12/02/22 13:23:00 EDT ropinirole, 4 mg = 4 tab(s), Tab, Oral, Supper, Routine, Start date 12/02/22 13:23:00 EDT, 12/02/2312:23:00 EDT trazodone, 150 mg = 3 tab(s) (more content not included)...[facility] HospitalComment on above:Result Comment: Electronically Signed By: Akua VALLE\.br\Date and Time Signed: 12/02/22 13:59 EDT\.br\Electronically Co- Signed By: Akua NICHOLSON\.br\Date and Time Co-Signed: 12/02/22 14:00 EDT\.br\Electronically Co-Signed By: BRAD BRIGGS, Emma\.br\Date and Time Co- Signed: 12/02/22 14:02 [id number] NoteAdmission and Discharge Information Admit Date/Time:11/11/2022 05:39 Admitting Physician - Tyson COLEMAN DO Admitting Diagnoses: 1. Weakness, Weakness 2. Hyperlipidemia, unspecified, Hyperlipidemia, unspecified Discharge Order Date Discharge Patient - Ordered -- 11/14/22 7:59:00 EDT, TCU Discharge Diagnoses 1. Fall, 11/11/2022 1. Weakness, Weakness, Weakness 2. Closed head injury, 11/11/2022 2. Hyperlipidemia, unspecified, Hyperlipidemia, unspecified, Hyperlipidemia 4. Acute kidney injury superimposed on chronic kidney disease, 11/11/2022 5. Elevated lactic acid level, 11/11/2022 6. Diabetes, 11/11/2022 8. Hypothyroidism, 11/11/2022 9. Left wrist pain, 11/11/2022 10. Chronic pain, 11/11/2022 11. Hypertension, 11/11/2022 12. Obesity, 11/11/2022 Chronic kidney disease, unspecified, 11/11/2022 Closed head injury without LOC, 11/10/2022 Dizziness, 11/10/2022 Multiple falls, 11/10/2022 Procedure History None. Hospital Course 77-year-old female with past medical history of rheumatoid arthritis, CKD stage IIIb, type 2 diabetes mellitus, hypertension, hypothyroidism, hyperlipidemia presented from home due to generalized weakness and fall. Patient was treated for UTI at [facility] and given Bactrim. Her GFR is around 36. She was referred to hospitalist service for generalized weakness and fall. On admission UA wasnegative and she was mildly dehydrated with acute kidney injury on chronic kidney disease. Patient's acute kidney injury likely was recent use of Bactrim. She is feeling better. She also had significant left wrist pain. Imaging was done which was negative for any fracture. Patient has improved withIV fluids. She can resume her Lasix, metformin, potassium supplement. She does not have any UTI at this point hence no antibiotics were continued. Her creatinine is down to 1.2 with improving and herGFR over 40. She will be discharged to group home facility/TCU based on physical therapy recommendation with follow-up with PCP in [place] and her regular measurement specialist at [facility] Services Consulted Consult to General Surgery - Ordered -- 11/10/22 21:29:00 EDT, Stat, Trauma, Consult and Co-manage Physical Exam Vitals & Measurements T: 36.6 ?C(Oral) TMIN: 36.4 ?C(Oral) TMAX: 36.8 ?C(Oral) HR: 66(Monitored) RR: 18 BP: 110/61 SpO2: 94% WT: 86.3 kg General: alert, no acute distress on Room air ENMT: TM's clear, oral mucosa moist, no pharyngeal erythema or exudate Cardiovascular: regular rate and rhythm, normal peripheral perfusion Respiratory: Lungs CTA, respirations non labored Abdomen: Soft, nontender, without rebound or rigidity, positive bowel sounds Extremities: no deformity, no trauma. Improvement in left wrist pain there is still some swelling which is down compared to before Genitourinary: Deferred Skin: Intact Hematological: No signs of large bruising/ecchymosis or petechiae Neurological: oriented x 4, LOC appropriate for age, CN II-XII intact, motor strength equal & normal bilaterally, sensation equal & normal bilaterally, speech normal Psych: Denies suicidal ideation or homicidal ideation Laboratory Results ABO/Rh (11/10/2022) ABO/Rh - O NEG Antibody Screen (11/10/2022) ABSC Gel Interp - Negative Automated Diff (11/12/2022) Neutro Auto - 64.1 % Lymph Auto - 22.4 % [place] Auto - 11.5 % Eos Auto - 1.4 % Basophil Auto - 0.6 % Neutro Absolute - 4.5 E9/L Lymph Absolute - 1.6 E9/L [place] Absolute - 0.8 E9/L Eos Absolute - 0.1 E9/L Basophil Absolute - 0.0 E9/L BMP (11/13/2022) Glucose Lvl - 124 mg/dL BUN - 11 mg/dL Creatinine - 1.2 mg/dL BUN/Creat Ratio - 9 Sodium Lvl - 139 mmol/L Potassium Lvl - 4.2 mmol/L Chloride - 107 mmol/L CO2 - 27 mmol/L AGAP - 9 mEq/L Calcium Lvl - 9.3 mg/dL BMP (11/10/2022) Glucose Lvl - 131 mg/dL BUN - 26 mg/dL Creatinine - 2.4 mg/dL BUN/Creat Ratio - 11 Sodium Lvl - 138 mmol/L Potassium Lvl - 3.7 mmol/L Chloride - 96 mmol/L CO2 - 26 mmol/L AGAP - 20 mEq/L Calcium Lvl - 9.4 mg/dL C-Reactive Protein (11/10/2022) CRP - 0.7 mg/dL Capillary Glucose POC (11/13/2022) Glucose Cap - 144 mg/dL POC Device SN - [id number] POC User ID - [id number] POC Username - GEOFF FERRARI CBC w/ Auto Diff (11/12/2022) WBC - 7.1 E9/L RBC - 3.9 E12/L Hgb - 11.7 gm/dL Hct - 35.5 % MCV - 90.1 fL MCH - 29.8 pg MCHC - 33.0 gm/dL RDW - 14.9 % Platelet - 215.0 E9/L MPV - 7.8 fL CPK (11/11/2022) Total CK - 82 Int._Unit/L Drug Screen Urine (11/10/2022) U Amph Scr - Negative U Josephine Scr - Negative U Benzodia Scr - Negative U Cannab Scr - Negative U Cocaine Scr - Negative U Opiate Scr - POS1 U PCP Scr - Negative eGFR (11/13/2022) eGFR - 46 mL/min/1.73 m2 Ethanol Level (11/10/2022) Ethanol Lvl - <5 mg/dL Hepatic Function Panel (11/10/2022) Alk Phos - 63 Int._Unit/L ALT - 17 Int._Unit/L AST - 25 Int._Unit/L Total Protein - 6.8 gm/dL Albumin Lvl - 3.7 gm/dL Globulin - 3.1 gm (more content not included)...[facility] Comment on above:Result Comment: Electronically Signed By: Jeff SUTTON MD\.br\Date and Time Signed: 11/14/22 08:00 [id number] NoteCRM entered the room to discuss dc planning. PCP, DME and insurance discussed. Patient is alert andinvolved in plan of care. Contact information provided and whiteboard updated. Pt is agreeable to SNF, CRM first discussed TCU with pt, she wants a private room. TCU now saying they only have [facility] room, that is private at this time. CRM told TCU when a bed becomes available she would like a room there. CRM will call [facility] to notify. Pt's 3MN will be up 11/14. Room 57. CRM to follow. Update pt will now have private room in TCU, room 609.[facility] HospitalComment on above:Result Comment: Electronically Signed By: Kaylie Díaz\.br\Date and Time Signed: 11/12/22 11:47 [id number] NotePT Evaluation done this date. Pt. with 04/29 on AM-PAC this date. Unable to attempt getting up due to bed height and pt. being very short and weak causing safety issues. She needs mod Ax2 with bed mobility. Recommend SNF.[facility]06-08-2023 NoteChief Complaint Pt has fallen multiple times recently. Most recent has been tonight. Fell face first into shower. Striking head on tub and having head pain now. Denies LOC. Does have hematoma above L eye. Does take ASA daily. History of Present Illness Patient is a very pleasant obese 77-year-old white female with a past medical history significant for chronic neck and back pain. She is followed by pain management. 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 Patient does have chronic kidney disease stage III, type 2 diabetes, hyperlipidemia, hypothyroidism. While awaiting verification of home meds prior medications include Requip but she denies any history of Parkinson's restless leg syndrome. She does have manifestations of benign essential tremor with head bobbing typical voice pattern and tremors states she has not had this as a diagnosis. I asked if she has had any history of coronary artery disease she states she is seen by Dr. Sanchez to help we [facility] automotive quality engineer sees her in the outpatient setting in [place]. He advised her that I might of had a heart attack but states it was not definitive. She denies having had any previous cardiac maksim terization and no recent stress studies. Patient presented to the emergency department this evening due to a fall. I have been advised the patient has had a number of falls in speaking the patient she states she has not had a fall since thewinter prior to this past evening. She states that her bathroom was recently remodeled. She states she was in the bathroom attempting to place the toilet paper on the role after she turned she statesher legs gave out she fell striking her right arm she also struck the left side of her forehead on the threshold leading into the shower. She does have visible ecchymosis. She denied any loss of consciousness. She denied any preceding dizziness, palpitations, chest pain, shortness of breath. She denied any preceding headache or any focal neurologic deficits. She also denies any symptoms typical of radiculopathy. She states despite striking her head she had no loss of consciousness she did not have any confusion no light sensitivity, no visual disturbance no postevent vertigo and no nausea vomiting. She states that when she fell that she twisted her left wrist. She states has been deformed for several years since having surgery after remote injury. It is noted that on 06 November she had presented to [place] emergency department with weakness that had existed for the previous week. She did have a UA that was negative for nitrates and small leukocyte esterase but 20-50 WBCs. She was empirically placed on Bactrim which she was taking until the date of presentation. She denies any dysuria or urgency patient does have an elevated creatinine as it compares to labs available from her [place] emergency department she denies any nonsteroidal anti-inflammatory drug use Review of Systems Constitutional: no fever, no chills, no sweats, weakness Skin: no Jaundice, no rash, no lesions, nopetechiae ENMT: no ear pain, no sore throat, Respiratory: no shortness of breath, no cough, no orthopnea, no wheezing Cardiovascular: no chest pain, no palpitations, no increased edema Gastrointestinal: no nausea, no vomiting, no diarrhea, no GI bleeding Genitourinary: no dysuria, Musculoskeletal: no acute back pain mild to moderate trauma Neurologic: no headache, no dizziness, no numbness, mildto moderate weakness Psychiatric: no sleeping problems, no irritability, no mood swings/depression. Heme/Lymph: no bleeding tendency, no bruising tendency, no petechiae, no swollen nodes Allergy/Immunologic: no seasonal allergies, no food allergies, no recurrent infections, no impairedimmunity Additional ROS info: Except as noted in the above Review of Systems and in the History of Present Illness all other systems have been reviewed and are negative or noncontributory. Scoring Zee Fall Risk Score: 85 (11/10/22) Physical Exam Vitals & Measurements T: 36.5 ?C(Oral) TMIN: 36.5 ?C(Oral) TMAX: 36.8 ?C(Oral) HR: 80(Monitored) RR: 15 BP: 111/61 SpO2: 91% HT: 152 cm WT: 83 kg General: alert, no acute distress Skin: warm, dry Head: no trauma, normocephalic Neck: Trachea midline, no adenopathy, no tenderness Eye: normal conjunctiva, sclera clear ENMT: TM's clear, oral mucosa moist, no pharyngeal erythema or exudate Cardiovascular: regular rate and rhythm, normal peripheral perfusion Respiratory: Lungs CTA, no rales rhonchi or wheeze, respirations non labored Chest wall: no deformity. Gastrointestinal: soft, non distended, no tenderness, no guarding. Osteopathic exam - Pt was examined in supine and partial left lateral decubitus then partial right lateral decubitus positions. Pt with diminished lumbar lordosis, increased thoracic kyphosis. scoliosis. Extremities: Patient does have existent deformity of distal aspect of he (more content not included)...[facility] HospitalComment on above:Result Comment: Electronically Signed By: Tyson COLEMAN DO\Date and Time Signed: 11/11/22 05:44 [id number] Evaluation note* Encounter Date Diagnosis Assessment Notes Treatment Notes Treatment Clinical Notes Jun, Hypertensive chronic kidney disease with stage 1 through stage 4 chronic kidney disease, or unspecified chronic kidney disease (ICD-10 - I12.9) Her blood pressure is controlled and she appears to be mildly hypervolemic on exam. Continue current medications. I have advised her to monitor weight at home and if he gains 2 pounds in 24 hours or 5 pounds in a week call office. Advised to comply with fluid restriction and Lasix. Jun, Chronic kidney disea se, stage III (moderate) (ICD-10 - N18.30) She has a CKD due to the long-standing diabetes medicine hypertension. Her serum Creatinine is 1.5 mg/dl. I have discussed with her the importance of good DM and HTN control to slow down the progression of disease. Her renal US showed b/l renal cortical atrophy. 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 Continue to follow with PCP for DM management. I explained to the patient and the daughter she may benefit with SGLT2 inhibitors including Farxiga or Jardiance. They can discuss with the PCP. I also discussed with the option of Kerendia but Patient and the daughter chose not to take that as renal function is stable and due to the risk of high cost in future Jun, Secondary hyperparathyroidism (ICD-10 - N25.81) MBD parameters within the goal. Decreasee oral Vit D 5000 units 3/week Jun, Gout (ICD-10 - M10.9) She hernandez s history of gout and has hyperuricemia. She want to monitor without medications Jun, Anemia of renal dise ase (ICD-10 - D63.1) Hemoglobin is within the goal and has low Iron stores. Continue oral Iron 3 x weeks. Advised to have a follow-up with a GI. Jun, Hypomagnesemia (ICD- 10 - E83.42) She still has a low magnesium. Continue oral magnesium [facility] Other 12-22-2022 History general Narrative - Reported* Type Description Date Medical History DM Medical History Fibromyalgia Medical History Arthritis Medical History HIP PAIN BILATERAL Medical History NERVE 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 BI LATERAL Medical History UTI 05/27/22 [facility] Surgical History Procedure:Colostomy;Disease: no t current Surgical History right TKA 2015 Surgical History left TKA 2017 Surgical History Procedure:Lt femur with yadiel 3 s urgeries;Disease: Surgical History left wrist fracture Surgical History Procedure:Lt wrist pins and yadiel s;Disease: Surgical History left femur fracture-yadiel placeme nt Surgical History RT TKA PER DR CANTRELL 04/22/16 Surgical History LT TKA PSI PER DR CANTRELL 03/09 Surgical History perforated bowel Surgical History BILATERAL NERVE BLOCK IN SACRAI L AREA 12/04/2021 Surgical History BILATERAL NERVE BLOCK 04/09/2022 Hospitalization History see above [facility] Other 12-22-2022 History general Narrative - Reported* Type Description Date Medical History DM Medical History Fibromyalgia Medical History Arthritis Medical History HIP PAIN BILATERAL Medical History NERVE 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 BI LATERAL Medical History UTI 05/27/22 [facility] E R Medical History UTI 11/06/2022 GIVEN BACTRIM Medical History UTI 11/10/[address] [facility] [place] Surgical History Procedure:Colostomy;Disease: no t current Surgical History right TKA 2015 Surgical History left TKA 2017 Surgical History Procedure:Lt femur with yadiel 3 s urgeries;Disease: Surgical History left wrist fracture Surgical History Procedure:Lt wrist pins and yadiel s;Disease: Surgical History left femur fracture-yadiel placeme nt Surgical History RT TKA PER DR CANTRELL 04/22/16 Surgical History LT TKA PSI PER DR ACNTRELL 03/09 Surgical History perforated bowel Surgical History BILATERAL NERVE BLOCK IN SACRAI L AREA 12/04/2021 Surgical History BILATERAL NERVE BLOCK 04/09/2022 Hospitalization History see above Hospitalization History UTI 11/06/2022 [address]TI [address] [facility] [place] AND THEN [facility] 11/12/2022 [facility] Chief Complaint: 6 months HPI: Nadia Patterson is a 76 y.o. female presents today via w/c with daughter for routine f/u for h/o CAD, HTN, HFpEF, Dyspnea, fibromyalgia, DM type 2 She describes epigastric discomfort when she lies down to sleep at night. This is unrelated to exertion. She has no exertional chest pain. Her shortness of breath is stable. Her daughter also states that she has chest discomfort when she is sitting sometimes watching TV. The patient admits that she likes to drink pop before bedtime. She has noticed that this worsens the chest pain that she describes. Cardiology ROS: GENERAL: Denies fever, chills, night sweats, weight loss. HEENT: Denies changes in vision, photophobia, changes in hearing, epistaxis, oral bleeding. CARDIOVASCULAR: chest pain, palpitations, SOB Denies exertional dyspnea, orthopnea/PND, lower extremity edema, lightheadedness/dizziness. RESPIRATORY: Denies SOB, coughing, wheezing GI: Denies abdominal pain, nausea/vomiting, heartburn, melena/hematochezia. RENAL: Denies dysuria, hematuria, flank pain. MSK: Denies muscle weakness/pain, arthralgias/joint pain. NEUROLOGIC: Denies LOC, weakness, numbness, headaches. SKIN: Denies abnormal rashes or bleeding. PSYCH: Denies significant anxiety, depression, sleep disturbances. INVESTIGATIONS Lexiscan stress test 03/2018 Myocardial perfusion study shows no ischemia. Normal perfusion study with diaphragmatic soft tissue artifact. Global left ventricular systolic function is normal. No TID. No ischemic EKG changes. Ejection fraction 65%. Reviewed labs 12/24/20 Renal function stable BUN 17, CR 1.64 LFT normal CBC normal 08/20/20 Echo LVSF normal- EF 60% Gr 1 DD RV SIZE and Systolic function normal Mod TV regurg Normal rt sided pressures Transthoracic echocardiogram 06/2017 Global left ventricular systolic function is normal. Left ventricular wall thickness is mildly increased. Concentric left ventricular hypertrophy. The septum is abnormal motion may be due to bundle branch block. Grade 1 diastolic dysfunction. Normal right ventricular systolic function. Mild to moderate tricuspid regurgitation. Doppler study suggest normal right-sided pressures. Last Recorded Vitals Patient Vitals for the past 24 hrs: BP Pulse SpO2 Height Weight 04/23/22 1045 130/74 55 94 % 1.499 m (4' 11 ) 82.6 kg (182 lb) Physical Examination: GENERAL: alert and oriented x3, well developed, in no acute distress. HEAD: atraumatic, normocephalic. EYES: YOEL, EOMI. NECK: trachea midline, no JVD present, no carotid bruits present. CARDIAC: S1, S2 present. RRR. No murmur, rubs, or gallops. RESPIRATORY: CTAB, no increased effort of breathing, no rales, rhonchi, or wheezing. ABDOMEN: soft, nontender, nondistended. EXTREMITIES: no lower extremity edema, peripheral pulses are 2+ bilaterally. No rash/skin discoloration present. NEURO: strength/sensation equal and symmetric in bilateral upper and lower extremities. PSYCH: appropriate mood, affect, and judgement. Assessment: 1. Coronary atherosclerosis 2. Tricuspid valve disorder, non-rheumatic 3. Heart failure with preserved ejection fraction (HFpEF) 4. Essential hypertension 5. Edema 6. Type 2 diabetes mellitus 7. Dyspnea on exertion 8. Gastroesophageal reflux disease/esophageal spasm Plan: Reassurance; her pain sounds gastrointestinal in nature I offered to provide a prescription for a proton pump inhibitor in the form of Nexium 40 mg once a day 15 to 20 minutes before breakfast; the patient and her daughter would like to try environmental changes, dietary measures etc. before trying the medication. This is reasonable. Continue optimal medical therapy for history of coronary artery disease including aspirin, statin, beta-skyler. She is not on an angiotensin-converting enzyme inhibitor or receptor skyler due to renal function. Could consider addition of hydralazine and nitrates If her discomfort worsens, could consider referral to gastroenterology however the patient appears to want to avoid any testing if possible. May just consider addition of Imdur at that juncture. Return to clinic in 1 year or sooner should problems arise Pedro Palomares MD, MPH, [facility], [facility], [facility] Interventional Cardiology Pager Email: [email or web address]11-18-2022 Not[facility]UnPark[facility]09-15-2022 History of Present illness Narrative* Madai Webb MD - 02/18/2022 8:44 PM EDT Images from the original note were not included. EMERGENCY TRIAGE, TREAT AND TRANSPORT (ET3) DOCUMENTATION OF TELEHEALTH VISIT Date / Time: 01/08/2022 / 0345am Name: Suhas Patterson : 1945 SSN: [id number] EMS Agency: [facility] [x] Verbal consent obtained [] Implied consent - patient with potential emergency medical condition requiring assessment of capacity to refuse treatment and/or transport VITAL SIGNS: see flowsheet documentation BP 140/80 Pulse 82 Resp 16 SpO2 100% Reason for Telehealth Visit: Lift Assist - Unable to stand from seated position. History of Present Ilness: Patient is a 76 yo female who called EMS for lift assist. Patient was trying to put depends on and lost balance. Hung on to bed and lowered self to floor gently. Denies head inj or loc. States her and sleep in separate rooms. Couldn't get up from floor on own so EMS was called. No complaints now. After ems assistance has walked and went to bathroom without issues. No thinners. The remainder of all systems were reviewed and are negative for other complaint. Additional pertinent PMHx, SocHx, FamHx: PMH: hypothyroidism, Obesity, T2DM SHx: Knee Surgery x 2 Home meds: aspirin, atorvastatin, carvedilol, d3, lasix, levothyroxine, lisinopril, metformin , lasix, docusate, carvedilol Soc: lives with Review of Systems: The remainder of all systems were reviewed and are negative for other complaint. Exam: well appearing, no signs trauma General: Awake, no distress ENT: normocephalic, atraumatic Pulmonary: No respiratory distress Cardiovascular: Well perfused Neurologic: Oriented to person, place, time and events. Moving all extremities equally. GCS 15, gait intact. Psychiatric: Appropriate. Good insight and judgement. Medical Decision Makin female, lift assist via ems, after controlled fall/lowering to the floor. No complaints at this time. VSS and afebrile. No signs trauma. PE unremarkable. Ambulated in home with ems present to bathroom. Does not want to be transported. Low susp of acute emergent etiology. D/w patient utilizing sdm risk of no transport, and safety at home. Patient expressed understanding. No transport. Disposition Supported by Telehealth Assessment: ET3 Transport Decision: Treat in place, no transport. EMS Disposition Reported: Same ET3 Encounter Completed by: Madai Webb MD documented in this [id number] NotePROCEDURE: XR ANKLE RT MIN 3 VIEWS, XR FOOT RT 2V HISTORY: Arthralgia of the ankle and/or foot ; pain and swelling without injury COMPARISON: XR ankle right 10/10/2017 FINDINGS: BONES:Mild-moderate degenerative changes of the midfoot. Prominent calcaneal plantar spur. Mild flattening of the plantar arch. No fracture, dislocation, bone lesion. Unremarkable ankle joint. SOFT TISSUES:No visible soft tissue swelling. EFFUSION:None visible. OTHER: Negative. IMPRESSION: 1. No acute bone abnormality. 2. Moderate degenerative changes of the foot. 3. Unremarkable ankle. Electronically authenticated by: LINDA REED Date: 2021-11-16 16:37[facility]06-13-2022 NotePROCEDURE: XR ANKLE RT MIN 3 VIEWS, XR FOOT RT 2V HISTORY: Arthralgia of the ankle and/or foot ; pain and swelling without injury COMPARISON: XR ankle right 10/10/2017 FINDINGS: BONES:Mild-moderate degenerative changes of the midfoot. Prominent calcaneal plantar spur. Mild flattening of the plantar arch. No fracture, dislocation, bone lesion. Unremarkable ankle joint. SOFT TISSUES:No visible soft tissue swelling. EFFUSION:None visible. OTHER: Negative. IMPRESSION: 1. No acute bone abnormality. 2. Moderate degenerative changes of the foot. 3. Unremarkable ankle. Electronically authenticated by: LINDA REED Date: 2021-11-16 16:37[facility]01-13-2022 Evaluation note* Encounter Date Diagnosis Assessment Notes Treatment Notes Treatment Clinical Notes Jun, Hypertensive chronic kidney disease with stage 1 through stage 4 chronic kidney disease, or unspecified chronic kidney disease (ICD-10 - I12.9) Her blood pressure is controlled and she appears to be euvolemic on exam.. Continue current medications. Jun, Chronic kidney disea se, stage III (moderate) (ICD-10 - N18.30) She has a CKD due to the long-standing diabetes medicine hypertension. Her serum Creatinine is 1.5 mg/dl. I have discussed with her the importance of good DM and HTN control to slow down the progression of disease. Her renal US showed b/l renal cortical atrophy. 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 Continue to follow with PCP for DM management. Jun, Secondary hyperparathyroidism (ICD-10 - N25.81) MBD parameters within the goal. Continue oral Vit D 02481 units 3/week Jun, Gout (ICD-10 - M10.9) She has history of gout and has hyperuricemia. She want to monitor without medications Jun, Anemia of renal dise ase (ICD-10 - D63.1) Hemoglobin is within the goal and has low Iron stores. Continue oral Iron 3 x weeks. Advised to have a follow-up with a GI. Jun, Hypomagnesemia (ICD- 10 - E83.42) She still has a low magnesium. Continue oral magnesium Jun, UTI (urinary tract infection) (ICD-10 - N39.0) She has a UTI so I have prescribed oral antibiotic. [facility] Other Evaluation + Plan note No data available for this section [employer] Evaluation note* Diagnosis Fall, initial encounter- Primary documented in this encounter [facility] noteNo InformationNort Text[employer] Other History general Narrative - Reported* Type Description Date Medical History DM Medical History Fibromyalgia Medical History Arthritis Surgical History Procedure:Colostomy;Disease: no t current Surgical History right TKA 2016 Surgical History left TKA 2017 Surgical History Procedure:Lt femur with yadiel 3 s urgeries;Disease: Surgical History left wrist fracture Surgical History Procedure:Lt wrist pins and yadiel s;Disease: Surgical History left femur fracture-yadiel placeme nt Surgical History RT TKA PER DR CANTRELL 04/22/16 Surgical History LT TKA PSI PER DR CANTRELL 03/09 Surgical History perforated bowel Hospitalization History see above [facility] Other Hospital Discharge instructions No data available for this section [facility] Progress note No data available for this section [facility] Summary Purpose Family History No Family History Records FoundNo Family History Records FoundNo Family History Records FoundNo Family History Records FoundNo Family History Records Found Advance Directives No Advanced Directives Records FoundNo Advanced Directives Records FoundNo Advanced Directives Records FoundNo Advanced Directives Records FoundNo Advanced Directives Records Found Additional Source Comments INFORMATION SOURCE (unrecogn ized section and content) DATE CREATED AUTHOR 11/29/2017 [facility] DATE CREATED AUTHOR AUTHOR'S ORGANIZ ATION 03/06/2022 [facility] DATE CREATED AUTHOR AUTHOR'S ORGANIZ ATION 04/25/2022 [facility] DATE CREATED AUTHOR AUTHOR'S ORGANIZ ATION 06/08/2022 [facility] DATE CREATED AUTHOR AUTHOR'S ORGANIZ ATION 12/22/2022 [facility] REASON FOR VISIT (unrecogniz ed section and content) refill Reason Comments Fall Controlled mechanica l fall, lowered while onto bed. Patient Care team informatio n (unrecognized section and content) Personnel Name: HARPAL HAYES MD Address: Address: [address] [place] [address] Name: Natalie Lowe LPN Personnel Name: HARPAL HAYES MD Address: Address: [address] [place] [address] Name: Natalie Lowe LPN Personnel Name: HARPAL HAYES MD Address: Address: [address] [place] [address] Name: Natalie Lowe LPN Personnel Name: HARPAL HAYES MD Address: Address: [address] [place] [address] Name: Natalie Lowe LPN Personnel Name: HARPAL HAYES MD Address: Address: [address] [place] [address] Name: Natalie Lowe LPN FOR RECORDS PERTAINING TO PATIENTS WHO ARE OR HAVE BEEN ENROLLED IN A CHEMICAL DEPENDENCY/SUBSTANCEABUSE PROGRAM, SOME INFORMATION MAY BE OMITTED. This clinical summary was aggregated from multiple sources. Caution should be exercised in using it in the provision of clinical care. This summary normalizes information from multiple sources, and as a consequence, information in this document may materially change the coding, format and clinical context of patient data. In addition, data may be omitted in some cases. CLINICAL DECISIONS SHOULD BE BASED ON THE PRIMARY CLINICAL RECORDS. [facility] [employer] [facility]. provides no warranty or guarantee of the accuracy or completeness of information in this document.
[2023-06-09 16:12] LABS: Hematocrit 41.6 % (36.0-48.0); Hemoglobin 12.5 g/dL (12.0-16.0); Mean Corpuscular Hemoglobin 29.1 pg (26.7-34.0); Mean Corpuscular Volume 96.7 fL (81.0-99.0); Mean Platelet Volume 9.5 fL (9.5-13.5); Platelet Count 265 10^3/uL (150-450); Red Cell Distribution Width 13.9 % (11.0-15.0); White Blood Count 6.3 10^3/uL (4.0-11.0)
[2023-06-09 16:28] LABS: Albumin Level 3.3 g/dL (3.4-5.0); Anion Gap 7.8; BUN Creatinine Ratio 11.9; Calcium 9.8 mg/dL (8.5-10.1); Chloride 99 mmol/L (98-107); Estimated GFR (African America 40 (>=60); Estimated GFR (Non-African Ame 33 (>=60); Glucose 135 mg/dL (74-106); Magnesium 1.4 mg/dL (1.8-2.4); Phosphorus 3.2 mg/dL (2.6-4.7); Potassium 3.8 mmol/L (3.5-5.1); Sodium 137 mmol/L (136-145); Uric Acid 7.5 mg/dL (2.6-6.0)
[2023-06-09 16:30] LABS: Percent Iron Saturation 17.3 %
[2023-06-12 12:08] LABS: PTH, Intact 31 pg/mL (15-65)
== END 2023-06-09 15:44 | disposition home or self-care (01) ==
LOC: LAB 15:43
PROVIDERS: PCP Family Medicine; Visit Provider Internal Medicine
DX: I12.9 Hypertensive chronic kidney disease with stage 1 through stage 4 chronic kidney disease, or unspecified chronic kidney disease (principal); N18.30 Chronic kidney disease, stage 3 unspecified; E11.22 Type 2 diabetes mellitus with diabetic chronic kidney disease; N25.81 Secondary hyperparathyroidism of renal origin; M10.9 Gout, unspecified; D63.1 Anemia in chronic kidney disease; E83.42 Hypomagnesemia; N39.0 Urinary tract infection, site not specified
CPT/HCPCS: 36415; 80069; 82306; 82728; 83540; 83550; 83735; 83970; 84550; 85027

== ENCOUNTER 2023-06-10 16:44 | Outpatient (REF) | payer MEDICARE, SELFPAY ==
--- OUTSIDE RECORDS SUMMARY | 2023-06-10 16:51 | XMS_ITS | CCD ---
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 Name Role Phone PHYSICIAN, DEFAULT Unavailable Unavailable [...] HAWK MUNGUIA Consulting Unavailable DEREK, DR LINDA Mejia Consulting Unavailable FREDDY, DR HARPAL Rodriguez Primary [...] Admitting Unavailable HARPAL HAYES Primary Care Physician [phone] Natalie Lowe Unavailable Unavailable Nadege Abraham Attending Unavailable TOMASZ, Og Admitting Unavailable Nadgee Abraham Attending Unavailable TOMASZ, Og Attending Unavailable [...] Translations: [Stadol] Drug Allergy 2 ANXIOUS [facility] Repository (14 sources) PT DENIES ANY METAL ALLERGY Propensity to adverse reactions Unknown [employer] Other (6 sources) Butorphanol; Translations: [BUTORPHANOL] Drug Allergy 4 [facility] Repository (10 sources) Stadol *ANALGESICS - OPIOID* Propensity to adverse reactions Unknown [employer] Other (2 sources) Allergies Reconciled Propensity to adverse reactions Unknown [employer] Other Medications Current Medications Medication Drug Class(es) [...] every eight hours as needed for pain Saint Joe 325 mg-5 mg oral tablet 1 tab(s), Oral, q8hr as needed for pain, Refill(s) 0 Start Date: 12/06/22 Status: Ordered Start: 11-13-2022 Saint Joe 325 mg-5 mg oral tablet 1 tab(s), [...] day(s), # 8 cap(s), Refills(s) 0, Pharmacy: [facility] 1155, 152, cm, 12/02/22 9:48:00 EDT, Height/Length [...] Status: Ordered Vitamin D3 250 M CG (27984 UT) 1 capsule Orally MON, WED, FRI Active ciprofloxacin 500 mg oral tablet (2 sources) Quinolone Antimicrobial Start: 12-01-2022 take 1 tablet by mouth every twelve hours ciprofloxacin 500 mg Tab 500 mg = 1 tab(s), Oral, q12hr, # 10 tab(s), Refills(s) 0, Pharmacy: [facility] 1155, 152, cm, 11/10/22 21:21:00 EDT, Height/Length [...] 0 Start Date: 11/11/22 Status: Ordered Nystatin 515199 UNIT/GM 1 application Externally Twice a day for 10 days Active polyethylene glycol 3350 05236 mg powder for oral solution (5 sources) [...] Active Start: 08-10-2022 take 1 capsule by [facility] twice daily Pregabalin 150 mg TAKE 1 (ONE) CAPSULE BY MOUTH TWO TIMES DAILY for Aug, Active take 1 capsule by [facility] every twelve hours Lyrica 150 MG 1 [...] a day Active Vitamin D3 250 MCG (55039 UT) (9 sources) Vitamin D3 250 MCG (07317 UT) 1 capsule Orally MON, TUE, TUE [...] disease (9 sources) Atherosclerotic heart disease of [place] coronary artery without angina pectoris; Translations: [Coronary [...] surgery] Chronic Other aftercare (1 source) Other 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 (current) drug therapy; Translations: [OTH CUSTODIAL CURRENT DRUG THERAPY] Onset: 2 Episodic Other aftercare (1 source) assisted (current) use of oral hypoglycemic drugs; Translations: [BUSINESS MANAGEMENT INTERN USE ORAL HYPOGLYCEMIC DX] Onset: 2 Episodic Other aftercare (1 source) assisted (current) use of insulin; Translations: [BUSINESS MANAGEMENT INTERN CURRENT USE OF INSULIN] Onset: 2 Episodic Other aftercare (2 sources) Long-term current use of drug therapy; Translations: [Other senior living (current) drug therapy] Episodic Other and ill-defined [...] Locations R1: This test was performed at: [facility], [address] [place] [address], [address] , , [facility] Comment on above: Performed By: #### 1 [id number], [id number], [id number] ####[facility] [address] [place] [address] CHEMISTRYOrdered By: Lab ROP User on 12-17-2022 Glucose [Mass/Vol] 119 mg/dL High 55 - 99 mg/dL [facility] POC Subsection Comment on above: Result Comment: Yvonne jl Meter POC Device SN [id number] Invalid Interpretation Code [facility] POC Subsection POC User ID [id number] Invalid Interpretation Code [facility] POC Subsection POC Username EJ SIMS Invalid Interpretation Code [facility] POC Subsection Capillary Glucose POCon 12-04 Glucose [Mass/Vol] 119 mg/dL High 55-99 [facility] Comment on above: Result Comment: Yvonne parikh Meter Performed By: #### 2 [id number] #### [facility] [address] [place] [address] PTH [place] 12-17-2022 Parathyrin.intact [Mass/Vol] 42 pg/mL Invalid Interpretation Code [facility] Comment on above: Result Comment: Perf ormed at: CB [facility] [address] [id number] PhD Jake Edwards Performed By: #### 1 [id number] ####[facility] [address] [place] [address] CBC w/Indiceson 12-16-2022 Erythrocyte distribution width (RBC) [Ratio] 14.4 % High 10.9-14.2 [facility] Comment on above: Performed By: #### 2 [id number] #### [facility] [address] [place] [address] Hematocrit (Bld) [Volume fraction] 30.9 % Low 34.0-46.0 [facility] Comment on above: Performed By: #### 2 [id number] #### [facility] [address] [place] [address] Hemoglobin (Bld) [Mass/Vol] 10.4 g/dL Low 12.0-16.0 [facility] Comment on above: Performed By: #### 2 [id number] #### [facility] [address] [place] [address] MCH (RBC) [Entitic mass] 30.7 pg Normal 27.0-34.0 [facility] Comment on above: Performed By: #### 2 [id number] #### [facility] [address] [place] [address] MCHC (RBC) [Mass/Vol] 33.7 g/dL Normal 31.4-36.0 [facility] Comment on above: Performed By: #### 2 [id number] #### [facility] [address] [place] [address] MCV (RBC) [Entitic vol] 90.9 fL Normal 80.0-100.0 [facility] Comment on above: Performed By: #### 2 [id number] #### [facility] [address] [place] [address] Platelet mean volume (Bld) [Entitic vol] 7.0 fL Normal 6.4-10.8 [facility] Comment on above: Performed By: #### 2 [id number] #### [facility] [address] [place] [address] Platelets (Bld) [#/Vol] 264.0 E9/L Normal 150.0-500.0 [facility] Comment on above: Performed By: #### 2 [id number] #### [facility] [address] [place] [address] RBC (Bld) [#/Vol] 3.4 E12/L Low 4.3-5.9 [facility] Comment on above: Performed By: #### 2 [id number] #### [facility] [address] [place] [address] WBC corrected for nucl RBC Auto (Bld) [#/Vol] 4.8 E9/L Normal 4.0-11.0 [facility] Comment on above: Performed By: #### 2 [id number] #### [facility] [address] [place] [address] CHEMISTRYOrdered By: Lab ROP User on 12-16-2022 Glucose [Mass/Vol] 155 mg/dL High 55 - 99 mg/dL [facility] POC Subsection Comment on above: Result Comment: Yvonne jl Meter POC Device SN [id number] Invalid Interpretation Code [facility] POC Subsection POC User ID [id number] Invalid Interpretation Code [facility] POC Subsection POC Username EJ SIMS Invalid Interpretation Code [facility] POC Subsection Glucose [Mass/Vol] 127 mg/dL High 55 - 99 mg/dL [facility] POC Subsection Comment on above: Result Comment: Yvonne jl Meter POC Device SN [id number] Invalid Interpretation Code [facility] POC Subsection POC User ID [id number] Invalid Interpretation Code [facility] POC Subsection POC Username OUSMANE HWANG Invalid Interpretation Code [facility] POC Subsection CHEMISTRYOrdered By: Kerry Maravilla on 12-16-2022 Albumin Elph (U) [Mass fraction] mg/dL Invalid Interpretation Code [facility] Remisol Creatinine (U) [Mass/Vol] 44.5 mg/dL Invalid Interpretation Code [facility] Remisol U Prot/Creat Ratio [facility] Invalid Interpretation Code 0.00 - 200.00 [facility] [...] mg/dL Normal 1.9 - 4 .6 mg/dL [facility] Remisol Potassium [Moles/Vol] 3.6 mmol/L Normal 3.5 - 5.3 mmol/L [facility] Remisol Sodium [Moles/Vol] 142 mmol/L Normal 135 - 145 mmol/L [facility] Remisol Transferrin [Mass/Vol] 190 mg/dL Low 200 - 370 mg/dL [facility] Remisol Urate [Mass/Vol] 5.8 mg/dL Normal 2.2 - 7.4 mg/dL [facility] Remisol Urea nitrogen [Mass/Vol] 24 mg/dL High 5 - 21 mg/dL [facility] Remisol Urea nitrogen/Creatinine [Mass ratio] 17 mg/mg Normal 10 - 20 [facility] Remisol Capillary Glucose POCon 12-04 Glucose [Mass/Vol] 155 mg/dL High 55-99 [facility] Comment on above: Result Comment: Yvonne jl Meter Performed By: #### 2 [id number] #### [facility] [address] [place] [address] Glucose [Mass/Vol] 127 mg/dL High 55-99 [facility] Comment on above: Result Comment: Yvonne jl Meter Performed By: #### 2 [id number] ####[facility] [address] [place] [address] Family Medicine Office/Clini c Noteon 12-16-2022 Family Medicine Office/Clinic Note Chief Complaint TCU Discharge History of Present Illness Patient is being seen today for a discharge visit. pt was [facility] [place] brief bounce back admission from 12/02-12/03 [...] Normal mood and affect Assessment/Plan Home Health Qsgy-tp-Bguz Encounter Type: Medicare Reason for Sass-kg-Tnko (Diagnosis): DISCHARGE DIAGNOSIS Encounter Detail I certify that I conducted and documented that a gnke-fl-ozbm (F2F) encounter with the consumer occurred within the 90 days prior to the home health services start of care date, or within 30 days following the start of care date (inclusive of the start of care date), preceding the certification of medical necessity. Nursing Home: Yes Physical Therapy: Yes Occupational Therapy: Yes Speech Therapy: No Ripening Room Operator: Yes Com Writer: Yes Need for Home Health Services I certify based on my findings that... a. Home health services are medically necessary for this patient, including either intermittent shelter and/or therapy, AND b. The patient cannot [...] 0.4 mg= 1 tab(s), SubLingual, q5min, PRN Saint Joe 325 mg-5 mg oral tablet, 1 tab(s), [...] q6hr Aller (more content not included)... Normal [facility] Comment on above: Result Comment: Elec tronically Signed By: Leigh SELBY, Nadege Sykes\Date and Time Signed: 12/16/22 15:12 EDT Ferritinon 12-16-2022 Ferritin [Mass/Vol] 40 ng/mL Normal 11-307 [facility] Comment on above: Result Comment: NORM ALS MEN <30 YRS 16-132 ng/mL MEN >30 YRS 8-338 ng/mL WOMEN (PREMEN) 6-104 ng/mL WOMEN (POSTMEN) 12-210 ng/mL Performed By: #### 2 [id number] #### [facility] [address] [place] [address] HEMATOLOGYOrdered By: Leanne Carrillo on 12-16-2022 Erythrocyte [...] 4.8 E9/L Normal 4.0 - 11.0 E9/L [facility] HemeAutoSS Ironon 12-16-2022 Iron [Mass/Vol] 39 microgram/dL Normal 35-153 [facility] Comment on above: Performed By: #### 2 [id number] #### [facility] [address] [place] [address] Laboratory - Microbiology an d Antimicrobial susceptibilityOrdered By: Jasmin Desai on 12-16-2022 Bacteria identified Cx Nom (U) >100,000 cfu/ml Streptococcus species 4,000 cfu/ml Mixed skin contaminants [facility] Magnesiumon 12-16-2022 Magnesium [Mass/Vol] 1.7 mg/dL Normal 1.3-2.4 [facility] Comment on above: Performed By: #### 2 [id number] #### [facility] [address] [place] [address] Senior Living Recordson 12-16 Senior Living Records [id number] #1.00CD:127 Normal [facility] Senior Living Records [id number]#1.00CD:127 Normal [facility] Reference Laboratory Testing Ordered By: Sherrie WhitmanUsevilma on 12-16-2022 Parathyrin.intact [Mass/Vol] 42 pg/mL Invalid Interpretation Code 15-65pg/mL [facility] SendOutsSS Comment on above: Result Comment: Perf ormed at: CB [facility] [address] [id number] PhD Jake Edwards Renal Panelon 12-16-2022 Albumin [Mass/Vol] 2.9 g/dL Low 3.3-5.0 [facility] Comment on above: Performed By: #### 2 [id number] #### [facility] [address] [place] [address] Anion gap [Moles/Vol] 12 mmol/L Normal 6-16 [facility] Comment on above: Performed By: #### 2 [id number] #### [facility] [address] [place] [address] Calcium [Mass/Vol] 8.9 mg/dL Normal 8.9-11.1 [facility] Comment on above: Performed By: #### 2 [id number] #### [facility] [address] [place] [address] Chloride [Moles/Vol] 106 mmol/L Normal 101-111 [facility] Comment on above: Performed By: #### 2 [id number] #### [facility] [address] [place] [address] CO2 [Moles/Vol] 28 mmol/L Normal 21-31 [facility] Comment on above: Performed By: #### 2 [id number] #### [facility] [address] [place] [address] Creatinine [Mass/Vol] 1.4 mg/dL High 0.5-1.3 [facility] Comment on above: Performed By: #### 2 [id number] #### [facility] [address] [place] [address] Glucose [Mass/Vol] 125 mg/dL Normal 55-199 [facility] Comment on above: Result Comment: If t his glucose result represents a fasting glucose, interpretation should refer to the following reference range: 55-99 mg/dL Performed By: #### 2 [id number] #### [facility] [address] [place] [address] Phosphate [Mass/Vol] 4.2 mg/dL Normal 1.9-4.6 [facility] Comment on above: Performed By: #### 2 [id number] #### [facility] [address] [place] [address] Potassium [Moles/Vol] 3.6 mmol/L Normal 3.5-5.3 [facility] Comment on above: Performed By: #### 2 [id number] #### [facility] [address] [place] [address] Sodium [Moles/Vol] 142 mmol/L Normal 135-145 [facility] Comment on above: Performed By: #### 2 [id number] #### [facility] [address] [place] [address] Urea nitrogen [Mass/Vol] 24 mg/dL High 5-21 [facility] Comment on above: Performed By: #### 2 [id number] #### [facility] [address] [place] [address] Urea nitrogen/Creatinine [Mass ratio] 17 No Units Normal 10-20 [facility] Comment on above: Performed By: #### 2 [id number] #### [facility] [address] [place] [address] TIBC Calculatedon 12-16-2022 Iron binding capacity [Mass/Vol] 266 microgram/dL Normal 250-400 [facility] Comment on above: Performed By: #### 2 [id number] #### [facility] [address] [place] [address] Transferrin [Mass/Vol] 190 mg/dL Low 200-370 [facility] Comment on above: Performed By: #### 2 [id number] #### [facility] [address] [place] [address] U Protein/Creat Ratioon 12-04 Albumin Elph (U) [Mass fraction] <6.0 Invalid Interpretation Code [facility] Comment on above: Result Comment: The reference range and other method performance specifications have not been established for this test; results should be integrated into the clinical context for interpretation. Performed By: #### 1 [id number], [id number], [id number] ####[facility] [address] [place] [address] Creatinine (U) [Mass/Vol] 44.5 mg/dL Invalid Interpretation Code [facility] Comment on above: Result Comment: The reference range and other method performance specifications have not been established for this test; results should be integrated into the clinical context for interpretation. Performed By: #### 1 [id number], [id number], [id number] ####[facility] [address] Ave[address]ornyc [place] [address] U Prot/Creat Ratio [facility] Invalid Interpretation Code .00-200.00 [facility] Comment on above: Performed By: #### 1 [id number], [id number], [id number] ####[facility] [address] [place] [address] UA With Cult Reflexon 2022 Bacteria LM Ql (Urine sed) 1+ /HPF Abnormal Trace [facility] Comment on above: Performed By: #### 1 [id number], [id number], [id number] ####[facility] [address] [place] [address] Bilirubin Ql (U) Negative Normal Negative [facility] Comment on above: Performed By: #### 1 [id number], [id number], [id number] ####[address] [address] Clarity (U) CLEAR Normal Clear [facility] Comment on above: Performed By: #### 1 [id number], [id number], [id number] ####[address] [address] Color (U) YELLOW Normal Yellow [facility] Comment on above: Performed By: #### 1 [id number], [id number], 9898107 ####[address] [address] Epithelial cells.squamous LM.HPF (Urine sed) [#/Area] 0-2 Normal 0-2 [facility] Comment on above: Performed By: #### 1 [id number], [id number], [id number] ####[facility] [address] [place] [address] Glucose Test strip (U) [Mass/Vol] Negative Normal Negative [facility] Comment on above: Performed By: #### 1 [id number], [id number], 7534001 ####[address] [place] [address] Hemoglobin Ql (U) Negative Normal Negative [facility] Comment on above: Performed By: #### 1 0717098, [id number], [id number] ####[address] [address] Ketones (U) [Mass/Vol] Negative Normal Negative [facility] Comment on above: Performed By: #### 1 [id number], [id number], [id number] ####[facility] [address] [place] [address] Mackey.plasma/Mackey.R BC (Bld) [Mass ratio] 0-3 Normal 0-3 [facility] Comment on above: Performed By: #### 1 [id number], [id number], [id number] ####[address] [address] Nitrite Ql (U) Negative Normal Negative [facility] Comment on above: Performed By: #### 1 2800205, [id number], 2409183 ####[address] [address] pH (U) 6.0 [pH] Invalid Interpretation Code 5.0-9.0 [facility] Comment on above: Performed By: #### 1 [id number], [id number], 1400108 ####[address] [address] Protein (U) [Mass/Vol] Negative Normal Negative [facility] Comment on above: Performed By: #### 1 6769953, [id number], 0674816 ####[address] [address] Specific gravity (U) [Rel density] <=1.005 Invalid Interpretation Code 1.005-1.030 [facility] Comment on above: Performed By: #### 1 [id number], [id number], 2936796 ####[address] [address] Type of Urine collection method Clean Catch Normal [facility] Comment on above: Performed By: #### 1 7121855, [id number], 6532842 ####[address] [address] Urobilinogen Qn (U) 0.2 {Macie'U}/dL Normal 0.0-1.0 [facility] Comment on above: Performed By: #### 1 7012534, [id number], 6049918 ####[facility] [address] [place] [address] WBC Auto Ql (U) 1+ Abnormal Negative [facility] Comment on above: Performed By: #### 1 5043622, [id number], 3384483 ####[facility] [address] [place] [address] WBC LM.HPF (Urine sed) [#/Area] /[HPF] Abnormal 0-5 [facility] Comment on above: Performed By: #### 1 [id number], [id number], 9329430 ####[facility] [address] [place] [address] URINALYSISOrdered By: Ghassan Salcido on 12-16-2022 Bacteria [...] AM) Normal Negative [facility] UA Auto SS Mackey.plasma/Mackey.R BC (Bld) [Mass ratio] 0-3 /HPF Normal 0-3/HPF [facility] UA Au to SS Nitrite Ql (U) Negative (12/16/22 7:32 AM) Normal Negative [facility] UA Auto SS pH (U) 6.0 *NA* (12/16/22 7:32 AM) Invalid Interpretation Code 5.0 - 9.0 [facility] UA Auto SS Protein (U) [Mass/Vol] Negative (12/16/22 7:32 AM) Normal Negative [facility] UA Auto SS Specific gravity (U) [Rel density] <=1.005 *NA* (12/16/22 7:32 AM) Invalid Interpretation Code 1.005 - 1.030 [facility] UA Auto SS UA Spec Desc Clean Catch (12/16/22 7:32 AM) Normal [facility] UA Auto SS Urobilinogen Qn (U) 0.3107450 {Macie'U}/dL Normal 0.0 - 1.0 EU/dL [facility] UA Auto SS WBC Auto Ql (U) 1+ *ABN* (12/16/22 7:32 AM) Invalid Interpretation Code Negative [facility] UA Auto SS WBC LM.HPF (Urine sed) [#/Area] /[HPF] Invalid Interpretation Code 0-5/HPF [facility] UA Auto SS Uric Acidon 12-16-2022 Urate [Mass/Vol] 5.8 mg/dL Normal 2.2-7.4 [facility] Comment on above: Performed By: #### 2 [id number] #### [facility] [address] [place] [address] Vitamin D 25 Hydroxyon 12-16 25-hydroxyvitamin D3 [Mass/Vol] 43.0 ng/mL Normal 30.0-100.0 [facility] Comment on above: Order Comment: Dx pe r Dr. Yaneth Solo: I12.9, N18.30, E11.22, N25.81, M10.9, D63.1, E83.42 Result Comment: Vit laureano D deficiency has been defined as a level of serum 25-OH vitamin D less than 20 ng/mL (1,2) by the [employer] of Medicine and an Endocrine Society practice guideline. The Endocrine Society further defined vitamin D insufficiency as a level between 21 and 29 ng/mL (2). 1. IOM ([place] of Medicine). 2010. Dietary reference intakes for calcium and D. [place]: The National Academies Press. 2. Benjamín ROBERTSON, Vikram GOSS, Kira HERNANDEZ, et al. Evaluation, treatment, and prevention of vitamin D deficiency: an Endocrine Society clinical practice guideline. JCEM. 2010; 96 (7):1911-30. Performed By: #### 2 [id number] #### [facility] [address] [place] [address] eGFRon 12-16-2022 GFR/1.73 sq M.predicted among non-blacks MDRD (S/P/Bld) [Vol rate/Area] 39 mL/min/1.73 m2 Low >=59 [facility] Comment on above: Order Comment: Order added by Discern Expert. Result Comment: Kick Boxer terrell kidney disease could be indicated at eGFR's of less than 60 mL/min/1.73m2. Kidney failure is indicated at less than 15 mL/min/1.73m2. Performed By: #### 2 [id number] #### [facility] [address] [place] [address] Capillary Glucose POCon 12-04 Glucose [Mass/Vol] 164 mg/dL High 55-99 [facility] Comment on above: Result Comment: Yvonne jl Meter Performed By: #### 1 [id number] #### [facility] [address] [place] [address] Glucose [Mass/Vol] 126 mg/dL High 55-99 [facility] Comment on above: Performed By: #### 2 [id number] ####[facility] [address] [place] [address] Capillary Glucose POCon 12-04 Glucose [Mass/Vol] 178 mg/dL High 55-99 [facility] Comment on above: Result Comment: Yvonne jl Meter Performed By: #### 2 [id number] ####[facility] [address] [place] [address] Glucose [Mass/Vol] 108 mg/dL High 55-99 [facility] Comment on above: Result Comment: Yvonne jl Meter Performed By: #### 2 [id number] ####[facility] [address] [place] [address] Glucose [Mass/Vol] 182 mg/dL High 55-[address] [place] [address] Comment on above: Result Comment: Yvonne jl Meter Performed By: #### 2 [id number] ####[facility] [address] [place] [address] Glucose [Mass/Vol] 126 mg/dL [address] Comment on above: Result Comment: Yvonne jl Meter Performed By: #### 1 [id number] #### [facility] [address] [place] [address] Glucose [Mass/Vol] 164 mg/dL High -[address] [place] [address] Comment on above: Result Comment: Yvonne jl Meter Performed By: #### 2 [id number] ####[facility] [address] [place] [address] Capillary Glucose POCon 07- 0 Glucose [Mass/Vol] 155 mg/dL [address] Comment on above: Performed By: #### 2 [id number] #### [facility] [address] [place] [address] Glucose [Mass/Vol] 162 mg/dL [address] Comment on above: Performed By: #### 1 [id number] #### [facility] [address] [place] [address] Glucose [Mass/Vol] 128 mg/dL [address] Comment on above: Result Comment: Yvonne jl Meter Performed By: #### 2 [id number] ####[facility] Ajvartswlj624 [place] [address] Capillary Glucose POCon 07-0 Glucose [Mass/Vol] 168 mg/dL [address] Comment on above: Result Comment: Yvonne jl Meter Performed By: #### 2 [id number] #### [facility] [address] [place] [address] Glucose [Mass/Vol] 166 mg/dL [address] Comment on above: Result Comment: Yvonne jl Meter Performed By: #### 2 [id number] #### [facility] [address] [place] [address] Glucose [Mass/Vol] 137 mg/dL High 55-99 [facility] Comment on above: Result Comment: Yvonne jl Meter Performed By: #### 2 [id number] #### [facility] [address] [place] [address] Glucose [Mass/Vol] 116 mg/dL High 55-99 [facility] Comment on above: Result Comment: No C overage Given Cleaned Meter Performed By: #### 2 [id number] #### [facility] [address] [facility] [place] [address] Glucose [Mass/Vol] 208 mg/dL High 55-99 [facility] Comment on above: Result Comment: Insu irais Started Cleaned Meter Performed By: #### 2 [id number] ####[facility] [address]af[address] [place] [address] Capillary Glucose POCon 07-0 Glucose [Mass/Vol] 134 mg/dL High 55-99 [facility] Comment on above: Result Comment: Yvonne jl Meter Performed By: #### 2 [id number] ####[facility] Wbpxscxfxd966 [facility] [place] [address] Glucose [Mass/Vol] 113 mg/dL High 55-99 [facility] Comment on above: Result Comment: Yvonne jl Meter Performed By: #### 2 [id number] ####[facility] Tinzvmxpor354 [facility] [place] [address] Glucose [Mass/Vol] 117 mg/dL High 55-99 [facility] Comment on above: Result Comment: Yvonne jl Meter Performed By: #### 2 [id number] ####[facility] Ywetnhqzfa267 [facility] [place] [address] Capillary Glucose POCon 07-0 Glucose [Mass/Vol] 211 mg/dL High 55-99 [facility] Comment on above: Result Comment: Yvonne jl Meter Performed By: #### 2 [id number] #### [facility] [address] [place] [address] Glucose [Mass/Vol] 145 mg/dL High 55-99 [facility] Comment on above: Result Comment: Yvonne jl Meter Performed By: #### 2 05633115 ####[facility] Vx[address]ib[address]iv[address] [place] [address] Glucose [Mass/Vol] 100 mg/dL High 55-99 [facility] Comment on above: Result Comment: Yvonne jl Meter Performed By: #### 2 09163986 ####[facility] Bdbsuqckfn243 [facility] [place] [address] Glucose [Mass/Vol] 131 mg/dL High 55-99 [facility] Comment on above: Result Comment: Yvonne jl Meter Performed By: #### 1 [id number] #### [facility] [address] [place] [address] Family Medicine Office/Clini c Noteon 12-10-2022 Family Medicine Office/Clinic Note History of Present Illness pt was [facility] [place] brief bounce back admission from 12/02-12/03 [...] 0.4 mg= 1 tab(s), SubLingual, q5min, PRN Saint Joe 325 mg-5 mg oral tablet, 1 tab(s), [...] of colon: Brother. Sleep apnea: Spouse. Normal [facility] Comment on above: Result Comment: Elec tronically Signed By: DIONNA BRIGGS, Kimberly Brand\.br\Date and Time Signed: 12/10/22 07:41 EDT UA With Cult Reflexon 2022 Bacteria LM Ql (Urine sed) TRACE Normal Trace [facility] Comment on above: Performed By: #### 1 [id number] ####[facility] [address]sp[address] [place] [address] Bilirubin Ql (U) Negative Normal Negative [facility] Comment on above: Performed By: #### 1 [id number] ####[facility] Lwofvxotaj[address] [place] [address] Clarity (U) CLEAR Normal Clear [facility] Comment on above: Performed By: #### 1 [id number] ####[facility] Flewjgerbk[address] [place] [address] Color (U) YELLOW Normal Yellow [facility] Comment on above: Performed By: #### 1 [id number] ####[facility] [address]fzcrpys[address] [place] [address] Epithelial cells.squamous LM.HPF (Urine sed) [#/Area] 0-2 Normal 0-2 [facility] Comment on above: Performed By: #### 1 3391002 ####[facility] [address]zrgjjjxpa6[address] [place] [address] Glucose Test strip (U) [Mass/Vol] Negative Normal Negative [facility] Comment on above: Performed By: #### 1 2276595 ####[facility] Z[address]uyxug[address] [place] [address] Hemoglobin Ql (U) Negative Normal Negative [facility] Comment on above: Performed By: #### 1 9931952 ####[address] [address] Ketones (U) [Mass/Vol] Negative Normal Negative [facility] Comment on above: Performed By: #### 1 6762519 ####[address] [address] Mackey.plasma/Mackey.R BC (Bld) [Mass ratio] 0-3 Normal 0-3 [facility] Comment on above: Performed By: #### 1 4662877 ####[facility] [address] [place] [address] Mucus Ql (Urine sed) TRACE Normal Fish [facility] Comment on above: Performed By: #### 1 6244058 ####[facility] [address] [place] [address] Nitrite Ql (U) Negative Normal Negative [facility] Comment on above: Performed By: #### 1 0480422 ####[address] [address] pH (U) 6.5 [pH] Invalid Interpretation Code 5.0-9.0 [facility] Comment on above: Performed By: #### 1 5165744 ####[facility] [address] [place] [address] Protein (U) [Mass/Vol] Negative Normal Negative [facility] Comment on above: Performed By: #### 1 6600548 ####[facility] [address] [place] [address] Specific gravity (U) [Rel density] 1.010 Invalid Interpretation Code 1.005-1.030 [facility] Comment on above: Performed By: #### 1 6327507 ####[facility] [address] [place] [address] Type of Urine collection method Clean Catch Normal [facility] Comment on above: Performed By: #### 1 [id number] ####[facility] [address]ntmiib[address] [place] [address] Urobilinogen Qn (U) 0.2 {Macie'U}/dL Normal 0.0-1.0 [facility] Comment on above: Performed By: #### 1 [id number] ####[facility] [address] [place] [address] WBC Auto Ql (U) Negative Normal Negative [facility] Comment on above: Performed By: #### 1 [id number] ####[facility] [address] [place] [address] WBC LM.HPF (Urine sed) [#/Area] 0-5 Normal 0-5 [facility] Comment on above: Performed By: #### 1 3756641 ####[facility] [address] [place] [address] URINALYSISOrdered By: Carlos daugherty on 12-10-2022 Bacteria [...] PM) Normal Negative [facility] UA Auto SS Mackey.plasma/Mackey.R BC (Bld) [Mass ratio] 0-3 /HPF Normal [...] FT UA Auto SS Urobilinogen Qn (U) 0.8466501 {Macie'U}/dL Normal 0.0 - 1.0 EU/dL [facility] UA Auto SS WBC Auto Ql (U) Negative (12/10/22 1:43 PM) Normal Negative [facility] UA Auto SS WBC LM.HPF (Urine sed) [#/Area] 0-5 /HPF Normal 0-5/HPF FT UA Auto SS Capillary Glucose POCon 07-0 Glucose [Mass/Vol] 202 mg/dL High 55-99 [facility] Comment on above: Result Comment: Yvonne parikh Meter Performed By: #### 2 [id number] #### [facility] [address] [place] [address] Glucose [Mass/Vol] 130 mg/dL High 55-99 [facility] Comment on above: Performed By: #### 2 [id number] #### [facility] [address] [place] [address] Glucose [Mass/Vol] 157 mg/dL High 55-[address] [place] [address] Comment on above: Result Comment: Repe at Test Performed By: #### 2 [id number] ####[facility] [address] [place] [address] Glucose [Mass/Vol] 110 mg/dL [place] [address] [place] [address] Comment on above: Performed By: #### 2 [id number] ####[facility] Qs[address] [place] [address] Glucose [Mass/Vol] 129 mg/dL High -[address] [place] [address] Comment on above: Result Comment: Yvonne jl Meter Performed By: #### 2 [id number] ####[facility] X[address] [place] [address] Capillary Glucose POCon 07-0 Glucose [Mass/Vol] 165 mg/dL [address] Comment on above: Result Comment: Yvonne jl Meter Performed By: #### 2 [id number] ####[facility] I[address]zyx[address] [place] [address] Glucose [Mass/Vol] 130 mg/dL [address] Comment on above: Performed By: #### 2 [id number] #### [facility] [address] [place] [address] Glucose [Mass/Vol] 109 mg/dL [place] [address] [place] [address] Comment on above: Performed By: #### 2 [id number] #### [facility] [address] [place] [address] Glucose [Mass/Vol] 126 mg/dL [address] Comment on above: Result Comment: Yvonne jl Meter Performed By: #### 2 [id number] #### [facility] [address] [place] [address] Capillary Glucose POCon 07-0 Glucose [Mass/Vol] 203 mg/dL [address] Comment on above: Performed By: #### 2 [id number] ####[facility] Zqrtiposrb406 [facility] [place] [address] Glucose [Mass/Vol] 132 mg/dL High 55-99 [facility] Comment on above: Result Comment: Yvonne jl Meter Performed By: #### 2 [id number] ####[facility] Nxwjfwlmwz646 [facility] [place] [address] Glucose [Mass/Vol] 80 mg/dL Normal 55-99 [facility] Comment on above: Result Comment: Yvonne jl Meter Performed By: #### 2 [id number] ####[facility] [address]ll[address] [facility] [place] [address] Glucose [Mass/Vol] 107 mg/dL High 55-99 [facility] Comment on above: Result Comment: Yvonne jl Meter No Coverage Given Performed By: #### 2 [id number] #### [facility] [address] [place] [address] Capillary Glucose POCon 07-0 Glucose [Mass/Vol] 161 mg/dL High 55-99 [facility] Comment on above: Result Comment: Insu irais Started Cleaned Meter Performed By: #### 2 [id number] #### [facility] [address] [place] [address] Glucose [Mass/Vol] 146 mg/dL High 55-99 [facility] Comment on above: Result Comment: Yvonne jl Meter Performed By: #### 2 [id number] ####[facility] Wfjdl[address]enz223 [facility] [place] [address] Glucose [Mass/Vol] 74 mg/dL Normal 55-99 [facility] Comment on above: Result Comment: Yvonne jl Meter Performed By: #### 2 [id number] ####[facility] Npekicupqi759 [facility] [place] [address] Glucose [Mass/Vol] 104 mg/dL High 55-99 [facility] Comment on above: Result Comment: Yvonne jl Meter Performed By: #### 2 [id number] #### [facility] [address] [place] [address] Capillary Glucose POCon 07-0 Glucose [Mass/Vol] 167 mg/dL High - [facility] Comment on above: Result Comment: Yvonne jl Meter Performed By: #### 2 10569007 ####[facility] [address] [place] [address] Glucose [Mass/Vol] 150 mg/dL High - [facility] Comment on above: Result Comment: Hour ly Monitoring Performed By: #### 2 [id number] ####[facility] [address] [place] [address] Glucose [Mass/Vol] 150 mg/dL High - [facility] Comment on above: Performed By: #### 1 [id number] #### [facility] [address] [place] [address] Glucose [Mass/Vol] 127 mg/dL High - [facility] Comment on above: Result Comment: Yvonne jl Meter Performed By: #### 2 [id number] #### [facility] [address] [place] [address] Capillary Glucose POCon 07-0 Glucose [Mass/Vol] 125 mg/dL High [address] [place] [address] Comment on above: Result Comment: Yvonne jl Meter Performed By: #### 2 [id number] #### [facility] [address] [place] [address] Glucose [Mass/Vol] 120 mg/dL [place] [address]- [facility] Comment on above: Performed By: #### 2 [id number] #### [facility] [address] [place] [address] Glucose [Mass/Vol] 149 mg/dL High -[address] [place] [address] Comment on above: Performed By: #### 2 [id number] ####[facility] [address] [place] [address] Glucose [Mass/Vol] 121 mg/dL High -[address] [place] [address] Comment on above: Result Comment: Yvonne jl Meter Performed By: #### 2 [id number] ####[facility] [address] [place] [address] BMPon 12-03-2022 Anion gap [Moles/Vol] 8 mmol/L Normal 6-16 [facility] Comment on above: Performed By: #### 2 980657, 84343483, 7467980, 0233312, 31017753, 3357477, 2190193, 9344431 ####[facility] [address] [place] [address] Calcium [Mass/Vol] 9.0 mg/dL Normal 8.9-11.1 [facility] Comment on above: Performed By: #### 2 320876, 87538125, 7649261, 8774854, 66356231, 6520284, 9388311, 1594055 ####[facility] [address] [place] [address] Chloride [Moles/Vol] 108 mmol/L Normal 101-111 [facility] Comment on above: Performed By: #### 2 051412, 40171053, 1966480, 5447598, 93216962, 8720202, 7192182, 6941134 ####[facility] [address]yykq[address] [place] [address] CO2 [Moles/Vol] 29 mmol/L Normal 21-31 [facility] Comment on above: Performed By: #### 2 707107, 47933444, 3797258, 4255237, 18197368, 6994225, 9015119, 2599882 ####[facility] [address] [place] [address] Creatinine [Mass/Vol] 1.1 mg/dL Normal 0.5-1.3 [facility] Comment on above: Performed By: #### 2 382672, 17121936, 7798144, 0874650, 88824881, 5788039, 5918160, 2595509 ####[facility] [address] [place] [address] Glucose [Mass/Vol] 127 mg/dL Normal 55-199 [facility] Comment on above: Result Comment: If t his glucose result represents a fasting glucose, interpretation should refer to the following reference range: 55-99 mg/dL Performed By: #### 2 941502, 33577066, 9603455, 0078979, 06688824, 3844610, 6652666, 4559239 ####[facility] [address]ies[address] [place] [address] Potassium [Moles/Vol] 3.9 mmol/L Normal 3.5-5.3 [facility] Comment on above: Performed By: #### 2 561174, 54228769, 5988231, 7625082, 05326911, 3272984, 2659524, 8396810 ####[facility] [address]urb[address] [place] [address] Sodium [Moles/Vol] 141 mmol/L Normal 135-145 [facility] Comment on above: Performed By: #### 2 848975, 92718805, 2257440, 2886157, 76650753, 0846222, 2432763, 7820574 ####[facility] [address]fewlkw[address] [place] [address] Urea nitrogen [Mass/Vol] 14 mg/dL Normal 5-21 [facility] Comment on above: Performed By: #### 2 953367, 70057847, 1735463, 4897482, 31124858, 2206984, 0779858, 4584940 ####[facility] [address]so[address] [place] [address] Urea nitrogen/Creatinine [Mass ratio] 13 No Units Normal 10-20 [facility] Comment on above: Performed By: #### 2 037245, 10368476, 2110768, 2757440, 92885989, 3686401, 9087299, 2786534 ####[facility] [address] [place] [address] Capillary Glucose POCon 06-3 0-2022 Glucose [Mass/Vol] 116 mg/dL High 55-99 [facility] Comment on above: Result Comment: Michelle PACHECO Performed By: #### 1 4971728 #### [facility] [address] [place] [address] Glucose [Mass/Vol] 156 mg/dL High 55-99 [facility] Comment on above: Result Comment: Michelle PACHECO Performed By: #### 2 05200066 ####[facility] [address] [place] [address] Discharge Note-Nursingon Discharge Note-Nursing NADIA PATTERSON :1945 [...] Test Results Blood culture Pharmacy Information Other: [facility] Discharge Instructions Transfer to TCU New Follow Up Appointments after Discharge Follow Up with HARPAL HAYES When: Comments: Call for followup appointment when d/c from TCU Where: [address] [place] [address] [facility] (1) Medications What How Much When Why Instructions Next Dose New acetaminophen (acetaminophen 325 mg Tab) 2 Tablets By Mouth Every 6 hours as needed for Pain not to exceed 4000 mg/ day NEEDED FOR PAIN (HAD NORCO @ 0833) New cefdinir (cefdinir 300 mg Cap) 1 Capsules By Mouth Every 12 hours Duration: 4 Days Pickup at [place] [address] 12/03 @ 9 PM New insulin lispro [...] 2 t (more content not included)... Normal [facility] Ferritinon 12-03-2022 Ferritin [Mass/Vol] 42 ng/mL Normal 11-307 [facility] Comment on above: Result Comment: NORM ALS MEN <30 YRS 16-132 ng/mL MEN >30 YRS 8-338 ng/mL WOMEN (PREMEN) 6-104 ng/mL WOMEN (POSTMEN) 12-210 ng/mL Performed By: #### 2 214675, 47209868, 4483237, 9391085, 10943477, 4467970, 3635022, 0595715 ####[facility] [address] [place] [address] Folateon 12-03-2022 Folate [Mass/Vol] 5.1 ng/mL Low >=6.7 [facility] Comment on above: Performed By: #### 2 775569, 80571505, 2000047, 5073718, 56851400, 2237009, 4596594, 0613525 ####[facility] [address] [place] [address] Inpatient Clinical Summaryon 12-03-2022 Inpatient Clinical Summary [place] [id number] Clinical Summary Person Information: Name: NADIA PATTERSON Age: 77 Years : 1945 Sex: Female PCP: HARPAL HAYES MD Marital Status: Phone: [phone] Race: White Ethnicity: Non- or Language: [place] Citizen Visit Id: Visit Reason: Weakness or fatigue; weak Speciality: Acuity: Enc Type: Inpatient Med Service: Medical Arrival: 12/02/2022 09:41:07 Discharge: Dispo Type: Address: [address] [place] [address] [phone] Provider Notes: Diagnosis: 1:UTI (urinary tract infection); [...] Follow up: With: Address: When: HARPAL HAYES [address] [place] [address] Business (1) Comments: Call for followup appointment when d/c from TCU Patient Education Information: Urinary Tract Infection, Adult, Khwd-ia-Rmnu cefdinir 300 mg Cap Normal [facility] Inpatient Patient Summaryon 12-03-2022 Inpatient Patient Summary [address] [address] Patient Discharge Instructions PERSON INFORMATION [...] prophylaxis Condition at Discharge: Stable YESENIA NADIA Letitia has been given the following list of [...] Follow up: With: Address: When: HARPAL HAYES [address] [place], [place] [id number] Business (1) Comments: Call for followup appointment [...] [facility], [address] [facility] [place], [place] [id number], [phone] cefdinir (cefdinir 300 mg Cap) 1 Capsules [...] Last Dose: Next Dose: STOP: acetaminophen-hydroc odone (Saint Joe 5/325 Tab) By Mouth 3 times a [...] 5 minutes as (more content not included)... 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 Pt is from home, current with [facility], recently DC from TCU 12/01. Pending therapy [...] call spouse or any further DC needs. [facility] Comment on above: Result Comment: Elec [...] and verified by Elizabeth Rocha OTR/L. Normal [facility] Ironon 12-03-2022 Iron [Mass/Vol] 56 microgram/dL Normal 35-153 [facility] Comment on above: Performed By: #### 2 285889, 05187320, 9424167, 7152061, 29774207, 5467798, 2537058, 7908110 ####[facility] [address] [place] [address] LDHon 12-03-2022 LDH [Catalytic activity/Vol] 143 Int._Unit/L Normal 93-218 [facility] Comment on above: Performed By: #### 2 494674, 91564587, 2145287, 8220471, 38746158, 8138909, 2462279, 5752524 ####[facility] [address] [place] [address] Lactic Acidon 12-03-2022 Lactate [Mass/Vol] 1.1 mmol/L Normal 0.5-2.2 [facility] Comment on above: Performed By: #### 1 0362022 #### [facility] [address] [place] [address] Message from Medicareon 11-06 Message from Medicare [id number] #1.00CD:127 Normal [facility] TIBC Calculatedon 12-03-2022 Iron binding capacity [Mass/Vol] 257 microgram/dL Normal 250-400 [facility] Comment on above: Performed By: #### 2 261161, 77867237, 8399483, 3428643, 65082414, 9549127, 1791050, 7807332 ####[facility] [address] [place] [address] Transferrin [Mass/Vol] 184 mg/dL Low 200-370 [facility] Comment on above: Performed By: #### 2 [address], 51944975, 8199672, 2744603, 46297102, 2566663, 4859190, 1374730 ####[facility] [address] [place] [address] Transfer Documentson 023 Transfer Documents [id number] 5#1.00CD:127 Normal [facility] Vit B12on 12-03-2022 Cobalamin (Vitamin B12) [Mass/Vol] 171 pg/mL Normal 50-1500 [facility] Comment on above: Performed By: #### 2 087963, 54845507, 1490356, 6967153, 83625306, 9385897, 2110578, 6835521 ####[facility] [address] [place] [address] eGFRon 12-03-2022 GFR/1.73 sq M.predicted among non-blacks MDRD (S/P/Bld) [Vol rate/Area] 51 mL/min/1.73 m2 Low >=59 [facility] Comment on above: Order Comment: Order added by Discern Expert. Result Comment: Kick Boxer terrell kidney disease could be indicated at eGFR's of less than 60 mL/min/1.73m2. Kidney failure is indicated at less than 15 mL/min/1.73m2. Performed By: #### 2 128117, 93516379, 1274457, 0386954, 04116176, 3743959, 6676225, 5230414 ####[facility] [facility] [id number] [place] [address] Auto Diffon 12-02-2022 Basophils/100 WBC (Bld) 0.7 % Normal 0.0-2.0 [facility] Comment on above: Order Comment: Order Added by Discern Expert. Performed By: #### 2 [id number] #### [facility] [address] [place] [address] Basophils/Leukocytes Auto (Bld) [Pure # fraction] 0.1 E9/L Normal 0.0-0.2 [facility] Comment on above: Order Comment: Order Added by Discern Expert. Performed By: #### 2 [id number] #### [facility] [address] [place] [address] Eosinophils/100 WBC (Bld) 2.3 % Normal 0.0-8.0 [facility] Comment on above: Order Comment: Order Added by Discern Expert. Performed By: #### 2 [id number] #### [facility] [address] [place] [address] Eosinophils/Leukocytes Auto (Bld) [Pure # fraction] 0.2 E9/L Normal 0.0-0.5 [facility] Comment on above: Order Comment: Order Added by Discern Expert. Performed By: #### 2 [id number] #### [facility] [address] [place] [address] Lymphocytes/100 WBC (Bld) 18.1 % Normal 14.0-50.0 [facility] Comment on above: Order Comment: Order Added by Discern Expert. Performed By: #### 2 [id number] #### [facility] [address] [place] [address] Lymphocytes/Leukocytes Auto (Bld) [Pure # fraction] 1.4 E9/L Normal 1.0-4.0 [facility] Comment on above: Order Comment: Order Added by Roderick Expert. Performed By: #### 2 [id number] #### [facility] [address] [place] [address] Monocytes/100 WBC (Bld) 6.8 % Normal 4.0-14.0 [facility] Comment on above: Order Comment: Order Added by Discern Expert. Performed By: #### 2 [id number] #### [facility] [address] [place] [address] Monocytes/Leukocytes Auto (Bld) [Pure # fraction] 0.5 E9/L Normal 0.2-1.0 [facility] Comment on above: Order Comment: Order Added by Discern Expert. Performed By: #### 2 [id number] #### [facility] [address] [place] [address] Neutrophils/100 WBC (Bld) 72.1 % Normal 36.0-75.0 [facility] Comment on above: Order Comment: Order Added by Discern Expert. Performed By: #### 2 [id number] #### [facility] [address] [place] [address] Neutrophils/Leukocytes Auto (Bld) [Pure # fraction] 5.5 E9/L Normal 2.0-7.5 [facility] Comment on above: Order Comment: Order Added by Discern Expert. Performed By: #### 2 [id number] #### [facility] [address] [place] [address] BMPon 12-02-2022 Creatinine [Mass/Vol] 1.2 mg/dL Normal 0.5-1.3 [facility] Comment on above: Performed By: #### 2 [id number] #### [facility] [address] [place] [address] Urea nitrogen [Mass/Vol] 17 mg/dL Normal 5-21 [facility] Comment on above: Performed By: #### 2 [id number] #### [facility] [address] [place] [address] Urea nitrogen/Creatinine [Mass ratio] 14 No Units Normal 10-20 [facility] Comment on above: Performed By: #### 2 [id number] #### [facility] [address] [place] [address] Anion gap [Moles/Vol] 16 mmol/L Normal 6-16 [facility] Comment on above: Performed By: #### 2 [id number] #### [facility] [address] [place] [address] Calcium [Mass/Vol] 9.9 mg/dL Normal 8.9-11.1 [facility] Comment on above: Performed By: #### 2 [id number] #### [facility] [address] [place] [address] Chloride [Moles/Vol] 103 mmol/L Normal 101-111 [facility] Comment on above: Performed By: #### 2 [id number] #### [facility] [address] [place] [address] CO2 [Moles/Vol] 27 mmol/L Normal 21-31 [facility] Comment on above: Performed By: #### 2 [id number] #### [facility] [address] [place] [address] Glucose [Mass/Vol] 134 mg/dL Normal 55-199 [facility] Comment on above: Result Comment: If t his glucose result represents a fasting glucose, interpretation should refer to the following reference range: 55-99 mg/dL Performed By: #### 2 [id number] #### [facility] [address] [place] [address] Potassium [Moles/Vol] 4.1 mmol/L Normal 3.5-5.3 [facility] Comment on above: Performed By: #### 2 [id number] #### [facility] [address] [place] [address] Sodium [Moles/Vol] 142 mmol/L Normal 135-145 [facility] Comment on above: Performed By: #### 2 [id number] #### [facility] [address] [place] [address] CBC w/ Auto Diffon 3 Erythrocyte distribution width (RBC) [Ratio] 14.6 % High 10.9-14.2 [facility] Comment on above: Performed By: #### 2 [id number] #### [facility] [address] [place] [address] Hematocrit (Bld) [Volume fraction] 35.2 % Normal 34.0-46.0 [facility] Comment on above: Performed By: #### 2 [id number] #### [facility] [address] [place] [address] Hemoglobin (Bld) [Mass/Vol] 11.7 g/dL Low 12.0-16.0 [facility] Comment on above: Performed By: #### 2 [id number] #### [facility] [address] [place] [address] MCH (RBC) [Entitic mass] 30.0 pg Normal 27.0-34.0 [facility] Comment on above: Performed By: #### 2 [id number] #### [facility] [address] [place] [address] MCHC (RBC) [Mass/Vol] 33.2 g/dL Normal 31.4-36.0 [facility] Comment on above: Performed By: #### 2 [id number] #### [facility] [address] [place] [address] MCV (RBC) [Entitic vol] 90.4 fL Normal 80.0-100.0 [facility] Comment on above: Performed By: #### 2 [id number] #### [facility] [address] [place] [address] Platelet mean volume (Bld) [Entitic vol] 7.5 fL Normal 6.4-10.8 [facility] Comment on above: Performed By: #### 2 [id number] #### [facility] [address] [place] [address] Platelets (Bld) [#/Vol] 279.0 E9/L Normal 150.0-500.0 [facility] Comment on above: Performed By: #### 2 [id number] #### [facility] [address] [place] [address] RBC (Bld) [#/Vol] 3.9 E12/L Low 4.3-5.9 [facility] Comment on above: Performed By: #### 2 [id number] #### [facility] [address] [place] [address] WBC corrected for nucl RBC Auto (Bld) [#/Vol] 7.6 E9/L Normal 4.0-11.0 [facility] Comment on above: Performed By: #### 2 [id number] #### [facility] [address] [place] [address] Capillary Glucose POCon 11-05 Glucose [Mass/Vol] 148 mg/dL High 55-99 [facility] Comment on above: Result Comment: Michelle erickson RN/ Performed By: #### 2 [id number] ####[facility] [address] [place] [address] Glucose [Mass/Vol] 102 mg/dL High 55-99 [facility] Comment on above: Result Comment: Michelle erickson RN/ Performed By: #### 2 [id number] ####[facility] [address] [place] [address] Consent for Treatmenton 11-05 Consent for Treatment [id number] #1.00CD:127 Normal [facility] ED Clinical Summaryon 2022 ED Clinical Summary [address] [address] ED Clinical Summary Person Information Name: NADIA PATTERSON [facility] Age: 77 Years : 1945 Sex: Female Language: [place] Citizen PCP: HARPAL HAYES MD Marital Status: Phone: [phone] Visit Id: Visit Reason: Weakness or fatigue; weak Speciality: Acuity: 3 Enc Type: Observation Med Service: Emergency Arrival: 12/02/2022 09:41:07 Discharge: 12/02/2022 15:22:58 LOS: 000 05:41 Checkin: 12/02/2022 09:41:07 Checkout: 12/02/2022 15:22:58 Dispo Type: Admitted as IP to this [facility] EVENTS: Event Name Event Status Request Date/Time [...] 12/02/2022 15:23:08 12/02/2022 15:23:08 12/02/2022 15:23:08 ADDRESS: [address] [place] [id number] PHYS DOC NOTES: MEDICAL INFORMATION: Prescriptions Given: [...] 1 Tablets (more content not included)... Normal [facility] ED Note-Physicianon 12-03-19 ED Note-Physician Basic [...] Patient seen and evaluated by the physician treasury assistant. Attending physician was present in the emergency department and supervised care. This visit was performed by both the physician and an APC. I performed all aspects of the MDM as documented. This report was transcribed using voice recognition software. Every effort was made to ensure accuracy, however, inadvertently computerized director of strategic sourcing mistakes may be present. Appropriate healthcare PPE [...] Oral, D (more content not included)... Normal [facility] Comment on above: Result Comment: Elec tronically Signed By: Bayron Rao PA-C\.br\Date and Time Signed: 12/02/22 13:01 EDT\.br\Electronically Co-Signed By: Michele Marie DO\.br\Date and Time Co-Signed: 12/02/22 13:44 EDT ED Patient Education Noteon 12-02-2022 ED Patient Education Note Normal [facility] ED Patient Summaryon 023 ED Patient Summary [place] [id number] Patient Discharge Instructions Person Information Name: NADIA [...] Information Primary Provider: Michele Marie DO [employer] Grades 9 Thru 12 Teacher:Bayron Rao PA-C The exam and treatment you received in the Emergency Department were for an urgent problem and are not intended as complete care. It is important that you follow up with a doctor, nurse practitioner, or physician?s treasury assistant for ongoing care. If your symptoms [...] opioids can be used to help relieve ffgzcvvd-eo-vpefof pain and are often prescribed following a [...] learn about (more content not included)... Normal [facility] Lactic Acidon 12-02-2022 Lactate [Mass/Vol] 2.5 mmol/L High 0.5-2.2 [facility] Comment on above: Performed By: #### 2 [id number] #### [facility] [address] [place] [address] Pre-Arrival Noteon 3 Pre-Arrival Note Pre-Arrival Summary Name: , Current Date: 12/02/2022 09:41:36 EDT Gender: Female Date of : Age: 77 Pre-Arrival Type: EMS ETA: 12/02/2022 10:04:00 EDT Primary Care Physician: Presenting Problem: weak Pre-Arrival User: Romel Boland Referring Source: Location: [place] Completion Date/Time: 12/02/2022 09:34:00 [facility] Emergency Department Pre-Hospital Report Form Vital Signs: Pre-Hospital Report: Treatment in Route: Response to Treatment: Misc. Issues: Normal [facility] Retic Counton 12-02-2022 Reticulocytes/100 RBC (Bld) 2.0 % High 0.5-1.5 [facility] Comment on above: Order Comment: per o sborn, labs cannot be added on.[id number] 12/02/2022 16:41:27 EDT Performed By: #### 2 [id number] #### [facility] [address] [place] [address] Troponin 0 Hr.on 12-02-2022 Troponin I.cardiac [Mass/Vol] 5.70 pg/mL Low 10.10-27.10 [facility] Comment on above: Result Comment: The 95% CI (Confidence Interval) PPV (Positive Predictive Value) for myocardial infarction in females is 38 pg/mL, in males 51 pg/mL. The results should be used in conjunction with clinical conditions of myocardial infarction. (Access High Sensitivity Troponin I Instructions For Use, [employer], January 2018) Performed By: #### 2 [id number] #### [facility] [address] [place] [address] XR Chest Single Viewon 12-02 XR Chest [...] mGy = na DAP = na Normal [facility] eGFRon 12-02-2022 GFR/1.73 sq M.predicted among non-blacks MDRD (S/P/Bld) [Vol rate/Area] 46 mL/min/1.73 m2 Low >=59 [facility] Comment on above: Order Comment: Order added by Discern Expert. Result Comment: Kick Boxer terrell kidney disease could be indicated at eGFR's of less than 60 mL/min/1.73m2. Kidney failure is indicated at less than 15 mL/min/1.73m2. Performed By: #### 2 [id number] #### [facility] [address] [address] C Urineon 12-01-2022 Bacteria identified Cx Nom [...] Locations R1: This test was performed at: [facility], [address] [place] [address], [facility]- , , Normal [facility] Comment on above: Performed By: #### 1 [id number] #### [facility] [address] [place] [address] Family Medicine Office/Clini c Noteon 12-01-2022 Family Medicine Office/Clinic Note Chief Complaint TCU Discharge History of Present Illness Patient is being seen today for a discharge visit. TCU ADMIT [facility]11 - Multiple falls recently , last [...] Normal mood and affect Assessment/Plan Home Health Vgsy-fi-Oouz Encounter Type: Medicare Reason for Owub-cl-Kbwj (Diagnosis): DISCHARGE DIAGNOSIS Encounter Detail I certify that I conducted and documented that a vgka-ej-twpi (F2F) encounter with the consumer occurred within the 90 days prior to the home health services start of care date, or within 30 days following the start of care date (inclusive of the start of care date), preceding the certification of medical necessity. Nursing Home: Yes Physical Therapy: Yes Occupational Therapy: Yes Speech Therapy: No Ripening Room Operator: Yes Com Writer: Yes Need for Home Health Services I certify based on my findings that... a. Home health services are medically necessary for this patient, including either intermittent shelter and/or therapy, AND b. The patient cannot [...] wrist) Splint intact. Continue with pain medicine Saint Joe 5mg/325mg q6 prn. Follow up with orthopedics. [...] 0.4 mg= 1 tab(s), SubLingual, q5min, PRN Saint Joe 325 mg-5 mg oral tablet, 1 tab(s), [...] Father. Diabete (more content not included)... Normal [facility] Comment on above: Result Comment: Elec tronically Signed By: Nadege Hylton\Date and Time Signed: 12/01/22 14:00 EDT AZTREONAM:SUSC:PT:ISOLATE:OR DQN:MICOrdered By: Jasmin Desai on 11-29-2022 Aztreonam YESENIA [Susc] >100,000 cfu/ml Escherichia coli [facility] Aztreonam YESENIA [Susc]Ordered By: Jasmin Desai on 11-29-2022 Escherichia coli Escherichia coli [facility] [place] UA With Cult Reflexon 2022 Bacteria LM Ql (Urine sed) 3+ /HPF Abnormal Trace [facility] Comment on above: Performed By: #### 1 [id number] #### [facility] [address] [place] [address] Bilirubin Ql (U) Negative Normal Negative [facility] Comment on above: Performed By: #### 1 [id number] #### [facility] [address] [place] [address] Clarity (U) SL CLOUDY Abnormal Clear [facility] Comment on above: Performed By: #### 1 [id number] #### [facility] [address] [place] [address] Color (U) YELLOW Normal Yellow [facility] Comment on above: Performed By: #### 1 [id number] #### [facility] [address] [place] [address] Epithelial cells.squamous LM.HPF (Urine sed) [#/Area] 0-2 Normal 0-2 [facility] Comment on above: Performed By: #### 1 [id number] #### [facility] [address] [place] [address] Glucose Test strip (U) [Mass/Vol] Negative Normal Negative [facility] Comment on above: Performed By: #### 1 [id number] #### [facility] [address] [place] [address] Hemoglobin Ql (U) Negative Normal Negative [facility] Comment on above: Performed By: #### 1 [id number] #### [facility] [address] [place] [address] Ketones (U) [Mass/Vol] Negative Normal Negative [facility] Comment on above: Performed By: #### 1 [id number] #### [facility] [address] [place] [address] Mackey.plasma/Mackey.R BC (Bld) [Mass ratio] 0-3 Normal 0-3 [facility] Comment on above: Performed By: #### 1 [id number] #### [facility] [address] [place] [address] Nitrite Ql (U) Positive Abnormal Negative [facility] Comment on above: Performed By: #### 1 [id number] #### [facility] [address] [place] [address] pH (U) 5.5 [pH] Invalid Interpretation Code 5.0-9.0 [facility] Comment on above: Performed By: #### 1 [id number] #### [facility] [address] [place] [address] Protein (U) [Mass/Vol] Negative Normal Negative [facility] Comment on above: Performed By: #### 1 [id number] #### [facility] [address] [place] [address] Specific gravity (U) [Rel density] 1.010 Invalid Interpretation Code 1.005-1.030 [facility] Comment on above: Performed By: #### 1 [id number] #### [facility] [address] [place] [address] Type of Urine collection method Clean Catch Normal [facility] Comment on above: Performed By: #### 1 [id number] #### [facility] [address] [place] [address] Urobilinogen Qn (U) 0.2 {Macie'U}/dL Normal 0.0-1.0 [facility] Comment on above: Performed By: #### 1 [id number] #### [facility] [address] [place] [address] WBC Auto Ql (U) 1+ Abnormal Negative [facility] Comment on above: Performed By: #### 1 [id number] #### [facility] [address] [place] [address] WBC LM.HPF (Urine sed) [#/Area] /[HPF] Abnormal 0-5 [facility] Comment on above: Performed By: #### 1 [id number] #### [facility] [address] [place] [address] URINALYSISOrdered By: Yara Monroy on 11-29-2022 Bacteria [...] PM) Normal Negative [facility] UA Auto SS Mackey.plasma/Mackey.R BC (Bld) [Mass ratio] 0-3 /HPF Normal 0-3/HPF [facility] UA Au to SS Nitrite Ql (U) Positive *ABN* (11/29/22 3:46 PM) Invalid Interpretation Code Negative [facility] UA Auto SS pH (U) 5.5 *NA* (11/29/22 3:46 PM) Invalid Interpretation Code 5.0 - 9.0 [facility] UA Auto SS Protein (U) [Mass/Vol] Negative (11/29/22 3:46 PM) Normal Negative [facility] UA Auto SS Specific gravity (U) [Rel density] 1.010 *NA* (11/29/22 3:46 PM) Invalid Interpretation Code 1.005 - 1.030 [facility] UA Auto SS UA Spec Desc Clean Catch (11/29/22 3:46 PM) Normal [facility] UA Auto SS Urobilinogen Qn (U) 0.5555370 {Macie'U}/dL Normal 0.0 - 1.0 EU/dL [facility] UA Auto SS WBC Auto Ql (U) 1+ *ABN* (11/29/22 3:46 PM) Invalid Interpretation Code Negative [facility] UA Auto SS WBC LM.HPF (Urine sed) [#/Area] /[HPF] Invalid Interpretation Code 0-5/HPF [facility] UA Auto SS [facility] [id number]# 1.00CD:127 Normal [facility] Family Medicine Office/Clini c Noteon 11-16-2022 Family Medicine Office/Clinic Note History of Present Illness TCU ADMIT from [facility] 11/11 Multiple falls recently , last face first into shower. Main c/o left wrist pain, xray neg for fx. Here for ST rehab stay. Hb ADmit 12.8 --> 11.7 Admit Cr 2.4 --> 1.2 eGFR 46 A1c 6.9 PMHx- Chronic neck/back pain, fibromyalgia, HTN, DM, CKD3b, CAD, hypothyroid, benign essential head tremor, RA. PCP Harpal Hayes MD [place] [facility] Solo lives with in [place]. Dtr helps with meds Physical Exam Elderly WF seated in recliner. Alert, somewhat pleasantly confused- is oriented initially to person and place but on further repeat questioning gets flustered and unable to answer some of same questions. Poor historian for meds. Cooperative for exam. brownish ecchymoses to left forehead and mandaeism. Lungs CTA Ht RRR wo murmur Abd [...] main complaint consider wrist splint for comfort Saint Joe prn 3. Cerebrovascular small vessel disease (I67.9: Cerebrovascular disease, unspecified) on CT brain 4. Dementia (F03.90: Unspecified dementia, unspecified severity, without behavioral disturbance, psychotic disturbance, mood disturbance, and anxiety) mild Vascular?? baseline unknown, poor historian for meds, events 5. Coronary artery disease (I25.10: Atherosclerotic heart disease of [place] coronary artery without angina pectoris) Pt denies [...] 0.4 mg= 1 tab(s), SubLingual, q5min, PRN Saint Joe 325 mg-5 mg oral tablet, 1 tab(s), [...] of colon: Brother. Sleep apnea: Spouse. Normal [facility] Comment on above: Result Comment: Elec tronically Signed By: TOMASZ BRIGGS, Og\.br\Date and Time Signed: 11/15/22 22:43 EDT Discharge Instructionson Discharge Instructions [id number]# 1.00CD:127 Normal [facility] Message from Medicareon 11-04 Message from Medicare [id number]# 1.00CD:127 Normal [facility] Capillary Glucose POCon 11-04 Glucose [Mass/Vol] 127 mg/dL High 55-99 [facility] Comment on above: Result Comment: Michelle erickson RN/ Performed By: #### 2 [id number] ####[facility] [address] [place] [address] Glucose [Mass/Vol] 124 mg/dL High 55-99 [facility] Comment on above: Result Comment: Michelle erickson RN/ Performed By: #### 2 [id number] #### [facility] [address] [place] [address] Inpatient Patient Summaryon 11-14-2022 Inpatient Patient Summary [...] This Is Your Medications List acetaminophen-hydroc odone (Saint Joe 325 mg-5 mg oral tablet) aspirin (aspirin [...] Test Results None [facility] New Follow Up Appointments after Discharge Follow Up with HARPAL HAYES When: Within 7 to 10 days Comments: Call for followup appointment Call physician if symptoms worsen Where: [facility] [place] [address]- Business (1) Medications What How Much When Why Instructions Next Dose New acetaminophen-hydroc odone (Saint Joe 325 mg-5 mg oral tablet) 1 Tablets [...] (11/13/22 06:41:00 (more content not included)... Normal [facility] BMPon 11-13-2022 Anion gap [Moles/Vol] 9 mmol/L Normal 6-16 [facility] Comment on above: Performed By: #### 2 [id number] #### [facility] [address] [place] [address] Calcium [Mass/Vol] 9.3 mg/dL Normal 8.9-11.1 [facility] Comment on above: Performed By: #### 2 [id number] #### [facility] [address] [place] [address] Chloride [Moles/Vol] 107 mmol/L Normal 101-111 [facility] Comment on above: Performed By: #### 2 [id number] #### [facility] [address] [place] [address] CO2 [Moles/Vol] 27 mmol/L Normal 21-31 [facility] Comment on above: Performed By: #### 2 [id number] #### [facility] [address] [place] [address] Creatinine [Mass/Vol] 1.2 mg/dL Normal 0.5-1.3 [facility] Comment on above: Performed By: #### 2 [id number] #### [facility] [address] [place] [address] Glucose [Mass/Vol] 124 mg/dL Normal 55-199 [facility] Comment on above: Result Comment: If t his glucose result represents a fasting glucose, interpretation should refer to the following reference range: 55-99 mg/dL Performed By: #### 2 [id number] #### [facility] [address] [place] [address] Potassium [Moles/Vol] 4.2 mmol/L Normal 3.5-5.3 [facility] Comment on above: Performed By: #### 2 [id number] #### [facility] [address] [place] [address] Sodium [Moles/Vol] 139 mmol/L Normal 135-145 [facility] Comment on above: Performed By: #### 2 [id number] #### [facility] [address] [place] [address] Urea nitrogen [Mass/Vol] 11 mg/dL Normal 5-21 [facility] Comment on above: Performed By: #### 2 [id number] #### [facility] [address] [place] [address] Urea nitrogen/Creatinine [Mass ratio] 9 No Units Low 10-20 [facility] Comment on above: Performed By: #### 2 [id number] #### [facility] [address] [place] [address] Capillary Glucose POCon 11-04 0-2022 Glucose [Mass/Vol] 144 mg/dL High 55-99 [facility] Comment on above: Result Comment: Michelle erickson RN/ Performed By: #### 2 [id number] #### [facility] [address] [place] [address] Glucose [Mass/Vol] 141 mg/dL High 55-99 [facility] Comment on above: Result Comment: Michelle PACHECO Performed By: #### 2 [id number] ####[facility] [address] [place] [address] Glucose [Mass/Vol] 153 mg/dL High 55-99 [facility] Comment on above: Result Comment: Michelle PACHECO Performed By: #### 2 [id number] #### [facility] [address] [place] [address] Glucose [Mass/Vol] 135 mg/dL High 55-99 [facility] Comment on above: Result Comment: Michelle PACHECO Performed By: #### 2 [id number] #### [facility] [address] [place] [address] Inpatient Clinical Summaryon 11-13-2022 Inpatient Clinical Summary [address] [id number] Clinical Summary Person Information: Name: NADIA PATTERSON Age: 77 Years : 1945 Sex: Female PCP: HARPAL HAYES MD Marital Status: Phone: [phone] Race: White Ethnicity: Non- or Language: [place] Citizen Visit Id: Visit Reason: Closed head injury without LOC; Multiple falls; Dizziness; MULTIPLE FALLS, CLOSED HEAD INJURY WITHOUT LOC, DIZZINESS Speciality: Acuity: Enc Type: Inpatient Med Service: Medical Arrival: 11/10/2022 21:12:12 Discharge: Dispo Type: Admitted as IP to this [facility] Address: [address] [place] [id number] Provider Notes: Diagnosis: 1:Fall; 2:Closed head injury; [...] This Visit Final Med List: acetaminophen-hydroc odone ([facility] 325 mg-5 mg oral tablet) 1 Tablets [...] Follow up: With: Address: When: HARPAL HAYES [address] [place], [place] [id number] [facility] (1) Within 7 to 10 days Comments: Call for followup appointment Call physician if symptoms worsen Patient Education Information: Weakness; Fall Prevention in Hospitals, Adult; Fall Prevention in the Home, Adult; Acute Kidney Injury, Adult Normal [facility] Inpatient Patient Summaryon 11-13-2022 Inpatient Patient Summary [address] [address] Patient Discharge Instructions PERSON INFORMATION [...] Follow up: With: Address: When: HARPAL FREDDY [address] [place], [place] [id number] [facility] (1) Within 7 to 10 days Comments: [...] STAY New Medications Printed Prescriptions acetaminophen-hydroc odone ([facility] 325 mg-5 mg oral tablet) 1 Tablets [...] Next D (more content not included)... Normal [facility] Progress Note-Physicianon Progress Note-Physician Assessment/Plan 77-year-old female with past medical history of rheumatoid arthritis, CKD stage IIIb, type 2 diabetes mellitus, hypertension, hypothyroidism, hyperlipidemia presented from home due to generalized weakness and fall. Patient was treated for UTI at [facility] and given Bactrim. Her GFR is around 36. She was referred to hospitalist service for generalized weakness and fall. On admission UA was negative and she was mildly dehydrated with acute kidney injury on chronic kidney disease. 1. Fall (W19.XXXA: Unspecified fall, initial encounter) PT OT recommended rehabilitation No traumatic pathology identified on x-ray Appreciate PT OT input Ordered: [facility] Hospital Care/Day Moderate 35 Minutes 05825 1. Weakness, (R53.1: Weakness)Weakness, (R53.1: Weakness)Weakness Improved Continue with rehabilitation and daily PT OT Ordered: [facility] Hospital Care/Day Moderate 35 Minutes 75114 2. Closed head injury (S09.90XA: Unspecified injury of head, initial encounter) Imaging negative Ordered: [facility] Hospital Care/Day Moderate 35 Minutes 64266 2. Hyperlipidemia, unspecified, (E78.5: Hyperlipidemia, unspecified)Hyperlip idemia, unspecified, (E78.5: Hyperlipidemia, unspecified)Hyperlip idemia Continue with atorvastatin 4. Acute kidney injury superimposed on chronic kidney disease (N17.9: Acute kidney failure, unspecified) Resolved Creatinine is 1.2 with GFR increased to 42 Baseline creatinine and GFR around 36 as per daughter Follows up with clinical sales [place] [facility] Patient should avoid Bactrim 5. Elevated lactic [...] made to ensure accuracy, however, inadvertently computerized director of strategic sourcing mistakes may be present. Jeff Sutton Hospitalist [...] mg/dL High (11/13/22 07:55:00) POC Device SN: [id number] (11/13/22 07:55:00) POC User ID: [id number] (11/13/22 07:55:00) POC Username: ROBERT BENITEZ (11/13/22 07:55:00) Problem List/Past Medical History Ongoing No qualifying data (more content not included)... Normal [facility] Comment on above: Result Comment: Elec tronically Signed By: Jeff SUTTON MD P\.br\Date and Time Signed: 11/13/22 08:40 EDT eGFRon 11-13-2022 GFR/1.73 sq M.predicted among non-blacks MDRD (S/P/Bld) [Vol rate/Area] 46 mL/min/1.73 m2 Low >=59 [facility] Comment on above: Order Comment: Order added by Discern Expert. Result Comment: Kick Boxer terrell kidney disease could be indicated at eGFR's of less than 60 mL/min/1.73m2. Kidney failure is indicated at less than 15 mL/min/1.73m2. Performed By: #### 2 [id number] #### [facility] [address] [place] [address] Auto Diffon 11-12-2022 Basophils/100 WBC (Bld) 0.6 % Normal 0.0-2.0 [facility] Comment on above: Order Comment: Order Added by Discern Expert. Performed By: #### 2 [id number] #### [facility] [address] [place] [address] Basophils/Leukocytes Auto (Bld) [Pure # fraction] 0.0 E9/L Normal 0.0-0.2 [facility] Comment on above: Order Comment: Order Added by Discern Expert. Performed By: #### 2 [id number] #### [facility] [address] [place] [address] Eosinophils/100 WBC (Bld) 1.4 % Normal 0.0-8.0 [facility] Comment on above: Order Comment: Order Added by Discern Expert. Performed By: #### 2 [id number] #### [facility] [address] [place] [address] Eosinophils/Leukocytes Auto (Bld) [Pure # fraction] 0.1 E9/L Normal 0.0-0.5 [facility] Comment on above: Order Comment: Order Added by Discern Expert. Performed By: #### 2 [id number] #### [facility] [address] [place] [address] Lymphocytes/100 WBC (Bld) 22.4 % Normal 14.0-50.0 [facility] Comment on above: Order Comment: Order Added by Discern Expert. Performed By: #### 2 [id number] #### [facility] [address] [place] [address] Lymphocytes/Leukocytes Auto (Bld) [Pure # fraction] 1.6 E9/L Normal 1.0-4.0 [facility] Comment on above: Order Comment: Order Added by Discern Expert. Performed By: #### 2 [id number] #### [facility] [address] [place] [address] Monocytes/100 WBC (Bld) 11.5 % Normal 4.0-14.0 [facility] Comment on above: Order Comment: Order Added by Discern Expert. Performed By: #### 2 [id number] #### [facility] [address] [place] [address] Monocytes/Leukocytes Auto (Bld) [Pure # fraction] 0.8 E9/L Normal 0.2-1.0 [facility] Comment on above: Order Comment: Order Added by Discern Expert. Performed By: #### 2 [id number] #### [facility] [address] [place] [address] Neutrophils/100 WBC (Bld) 64.1 % Normal 36.0-75.0 [facility] Comment on above: Order Comment: Order Added by Discern Expert. Performed By: #### 2 [id number] #### [facility] [address] [place] [address] Neutrophils/Leukocytes Auto (Bld) [Pure # fraction] 4.5 E9/L Normal 2.0-7.5 [facility] Comment on above: Order Comment: Order Added by Discern Expert. Performed By: #### 2 [id number] #### [facility] [address] [place] [address] BMPon 11-12-2022 Anion gap [Moles/Vol] 9 mmol/L Normal 6-16 [facility] Comment on above: Performed By: #### 2 [id number] #### [facility] [address] [place] [address] Calcium [Mass/Vol] 8.6 mg/dL Low 8.9-11.1 [facility] Comment on above: Performed By: #### 2 [id number] #### [facility] [address] [place] [address] Chloride [Moles/Vol] 107 mmol/L Normal 101-111 [facility] Comment on above: Performed By: #### 2 [id number] #### [facility] [address] [place] [address] CO2 [Moles/Vol] 27 mmol/L Normal 21-31 [facility] Comment on above: Performed By: #### 2 [id number] #### [facility] [address] [place] [address] Creatinine [Mass/Vol] 1.4 mg/dL High 0.5-1.3 [facility] Comment on above: Performed By: #### 2 [id number] #### [facility] [address] [place] [address] Glucose [Mass/Vol] 164 mg/dL Normal 55-199 [facility] Comment on above: Result Comment: If t his glucose result represents a fasting glucose, interpretation should refer to the following reference range: 55-99 mg/dL Performed By: #### 2 [id number] #### [facility] [address] [place] [address] Potassium [Moles/Vol] 3.7 mmol/L Normal 3.5-5.3 [facility] Comment on above: Performed By: #### 2 [id number] #### [facility] [address] [place] [address] Sodium [Moles/Vol] 139 mmol/L Normal 135-145 [facility] Comment on above: Performed By: #### 2 [id number] #### [facility] [address] [place] [address] Urea nitrogen [Mass/Vol] 15 mg/dL Normal 5-21 [facility] Comment on above: Performed By: #### 2 [id number] #### [facility] [address] [place] [address] Urea nitrogen/Creatinine [Mass ratio] 11 No Units Normal 10-20 [facility] Comment on above: Performed By: #### 2 [id number] #### [facility] [address] [place] [address] CBC w/ Auto Diffon 3 Erythrocyte distribution width (RBC) [Ratio] 14.9 % High 10.9-14.2 [facility] Comment on above: Performed By: #### 2 [id number] #### [facility] [address] [place] [address] Hematocrit (Bld) [Volume fraction] 35.5 % Normal 34.0-46.0 [facility] Comment on above: Performed By: #### 2 [id number] #### [facility] [address] [place] [address] Hemoglobin (Bld) [Mass/Vol] 11.7 g/dL Low 12.0-16.0 [facility] Comment on above: Performed By: #### 2 [id number] #### [facility] [address] [place] [address] MCH (RBC) [Entitic mass] 29.8 pg Normal 27.0-34.0 [facility] Comment on above: Performed By: #### 2 [id number] #### [facility] [address] [place] [address] MCHC (RBC) [Mass/Vol] 33.0 g/dL Normal 31.4-36.0 [facility] Comment on above: Performed By: #### 2 [id number] #### [facility] [address] [place] [address] MCV (RBC) [Entitic vol] 90.1 fL Normal 80.0-100.0 [facility] Comment on above: Performed By: #### 2 [id number] #### [facility] [address] [place] [address] Platelet mean volume (Bld) [Entitic vol] 7.8 fL Normal 6.4-10.8 [facility] Comment on above: Performed By: #### 2 [id number] #### [facility] [address] [place] [address] Platelets (Bld) [#/Vol] 215.0 E9/L Normal 150.0-500.0 [facility] Comment on above: Performed By: #### 2 [id number] #### [facility] [address] [place] [address] RBC (Bld) [#/Vol] 3.9 E12/L Low 4.3-5.9 [facility] Comment on above: Performed By: #### 2 [id number] #### [facility] [address] [place] [address] WBC corrected for nucl RBC Auto (Bld) [#/Vol] 7.1 E9/L Normal 4.0-11.0 [facility] Comment on above: Performed By: #### 2 [id number] #### [facility] [address] [place] [address] Capillary Glucose POCon Glucose [Mass/Vol] 143 mg/dL High 55-99 [facility] Comment on above: Result Comment: Michelle erickson RN/ Performed By: #### 1 [id number] #### [facility] [address] [place] [address] Glucose [Mass/Vol] 146 mg/dL High 55-99 [facility] Comment on above: Result Comment: Michelle PACHECO Performed By: #### 2 [id number] #### [facility] [address] [place] [address] Glucose [Mass/Vol] 132 mg/dL High 55-99 [facility] Comment on above: Result Comment: Michelle PACHECO Performed By: #### 2 [id number] #### [facility] [address] [place] [address] Magnesiumon 11-12-2022 Magnesium [Mass/Vol] 1.5 mg/dL Normal 1.3-2.4 [facility] Comment on above: Performed By: #### 2 [id number] #### [facility] [address] [place] [address] Monitor Recordon 11-12-2022 Monitor Record [id number] 7#1.00CD:127 Normal [facility] Monitor Record [id number] 5#1.00CD:127 Normal [facility] Monitor Record [id number] 2#1.00CD:127 Normal [facility] Progress Note-Physicianon Progress Note-Physician Assessment/Plan 77-year-old female with past medical history of rheumatoid arthritis, CKD stage IIIb, type 2 diabetes mellitus, hypertension, hypothyroidism, hyperlipidemia presented from home due to generalized weakness and fall. Patient was treated for UTI at [facility] and given Bactrim. Her GFR is [...] IIIb and follows [place] with [place] [facility] [place]-up with them as outpatient Avoid nephrotoxic [...] wrist) States that tramadol is not working [facility] order PT OT Ice pack as needed [...] with patient at bedside Disposition: Discharge to shelter facility when able to. Moderate level of MDM based on addressing above issues This report was transcribed using voice rec (more content not included)... Normal [facility] Comment on above: Result Comment: Elec tronically Signed By: LESLEY BRIGGS, Jeff Stoll\.br\Date and Time Signed: 11/12/22 08:42 EDT eGFRon 11-12-2022 GFR/1.73 sq M.predicted among non-blacks MDRD (S/P/Bld) [Vol rate/Area] 39 mL/min/1.73 m2 Low >=59 [facility] Comment on above: Order Comment: Order added by Discern Expert. Result Comment: Kick Boxer terrell kidney disease could be indicated at eGFR's of less than 60 mL/min/1.73m2. Kidney failure is indicated at less than 15 mL/min/1.73m2. Performed By: #### 2 [id number] #### [facility] [address] [place] [address] ABO/Rhon 11-11-2022 ABO/Rh Negative Invalid Interpretation Code [facility] Comment on above: Performed By: #### 1 [id number], [id number], [id number], [id number] ####[facility] [address] [place] [address] ABO/Rh History Checkon 11-11 ABO/Rh History Check Verified Hx Blood Type Normal [facility] Comment on above: Performed By: #### 1 [id number], [id number], [id number], [id number] ####[facility] [address] [place] [address] ABSCon 11-11-2022 ABSC Gel Interp Negative Normal [facility] Comment on above: Order Comment: pt in ct will get labs when they return [id number] 11/10/2022 21:43:26 EDT Performed By: #### 1 [id number], [id number], [id number], [id number] ####[facility] [address] [place] [address] Auth for Release of Medical Recordson 11-11-2022 Auth for Release of Medical Records [id number] 1#1.00CD:127 Normal [facility] Auto Diffon 11-11-2022 Basophils/100 WBC (Bld) 1.2 % Normal 0.0-2.0 [facility] Comment on above: Order Comment: Order Added by Discern Expert. Performed By: #### 2 [id number] #### [facility] [address] [place] [address] Basophils/Leukocytes Auto (Bld) [Pure # fraction] 0.1 E9/L Normal 0.0-0.2 [facility] Comment on above: Order Comment: Order Added by Discern Expert. Performed By: #### 2 [id number] #### [facility] [address] [place] [address] Eosinophils/100 WBC (Bld) 2.6 % Normal 0.0-8.0 [facility] Comment on above: Order Comment: Order Added by Discern Expert. Performed By: #### 2 [id number] #### [facility] [address] [place] [address] Eosinophils/Leukocytes Auto (Bld) [Pure # fraction] 0.2 E9/L Normal 0.0-0.5 [facility] Comment on above: Order Comment: Order Added by Discern Expert. Performed By: #### 2 [id number] #### [facility] [address] [place] [address] Lymphocytes/100 WBC (Bld) 33.6 % Normal 14.0-50.0 [facility] Comment on above: Order Comment: Order Added by Discern Expert. Performed By: #### 2 [id number] #### [facility] [address] [place] [address] Lymphocytes/Leukocytes Auto (Bld) [Pure # fraction] 2.2 E9/L Normal 1.0-4.0 [facility] Comment on above: Order Comment: Order Added by Discern Expert. Performed By: #### 2 [id number] #### [facility] [address] [place] [address] Monocytes/100 WBC (Bld) 8.4 % Normal 4.0-14.0 [facility] Comment on above: Order Comment: Order Added by Discern Expert. Performed By: #### 2 [id number] #### [facility] [address] [place] [address] Monocytes/Leukocytes Auto (Bld) [Pure # fraction] 0.5 E9/L Normal 0.2-1.0 [facility] Comment on above: Order Comment: Order Added by Discern Expert. Performed By: #### 2 [id number] #### [facility] [address] [place] [address] Neutrophils/100 WBC (Bld) 54.2 % Normal 36.0-75.0 [facility] Comment on above: Order Comment: Order Added by Discern Expert. Performed By: #### 2 [id number] #### [facility] [address] [place] [address] Neutrophils/Leukocytes Auto (Bld) [Pure # fraction] 3.5 E9/L Normal 2.0-7.5 [facility] Comment on above: Order Comment: Order Added by Discern Expert. Performed By: #### 2 [id number] #### [facility] [address] [place] [address] Basophils/100 WBC (Bld) 0.8 % Normal 0.0-2.0 [facility] Comment on above: Order Comment: Order Added by Discern Expert. Performed By: #### 2 [id number] #### [facility] [address] [place] [address] Basophils/Leukocytes Auto (Bld) [Pure # fraction] 0.0 E9/L Normal 0.0-0.2 [facility] Comment on above: Order Comment: Order Added by Discern Expert. Performed By: #### 2 [id number] #### [facility] [address] [place] [address] Eosinophils/100 WBC (Bld) 2.0 % Normal 0.0-8.0 [facility] Comment on above: Order Comment: Order Added by Discern Expert. Performed By: #### 2 [id number] #### [facility] [address] [place] [address] Eosinophils/Leukocytes Auto (Bld) [Pure # fraction] 0.1 E9/L Normal 0.0-0.5 [facility] Comment on above: Order Comment: Order Added by Discern Expert. Performed By: #### 2 [id number] #### [facility] [address] [place] [address] Lymphocytes/100 WBC (Bld) 27.0 % Normal 14.0-50.0 [facility] Comment on above: Order Comment: Order Added by Discern Expert. Performed By: #### 2 [id number] #### [facility] [address] [place] [address] Lymphocytes/Leukocytes Auto (Bld) [Pure # fraction] 1.6 E9/L Normal 1.0-4.0 [facility] Comment on above: Order Comment: Order Added by Discern Expert. Performed By: #### 2 [id number] #### [facility] [address] [place] [address] Monocytes/100 WBC (Bld) 8.9 % Normal 4.0-14.0 [facility] Comment on above: Order Comment: Order Added by Discern Expert. Performed By: #### 2 [id number] #### [facility] [address] [place] [address] Monocytes/Leukocytes Auto (Bld) [Pure # fraction] 0.5 E9/L Normal 0.2-1.0 [facility] Comment on above: Order Comment: Order Added by Discern Expert. Performed By: #### 2 [id number] #### [facility] [address] [place] [address] Neutrophils/100 WBC (Bld) 61.3 % Normal 36.0-75.0 [facility] Comment on above: Order Comment: Order Added by Discern Expert. Performed By: #### 2 [id number] #### [facility] [address] [place] [address] Neutrophils/Leukocytes Auto (Bld) [Pure # fraction] 3.6 E9/L Normal 2.0-7.5 [facility] Comment on above: Order Comment: Order Added by Discern Expert. Performed By: #### 2 [id number] #### [facility] [address] [place] [address] BMPon 11-11-2022 Creatinine [Mass/Vol] 2.0 mg/dL High 0.5-1.3 [facility] Comment on above: Performed By: #### 2 834018, 8003808, 32711629, 4615102, 6082798, 0339491, [id number] ####[facility] [address] [place] [address] Anion gap [Moles/Vol] 11 mmol/L Normal 6-16 [facility] Comment on above: Performed By: #### 2 763420, 6126893, 80644922, 8569766, 6749672, 6975313, [id number] ####[facility] [address] [place] [address] Calcium [Mass/Vol] 9.0 mg/dL Normal 8.9-11.1 [facility] Comment on above: Performed By: #### 2 408312, 0021121, 53493772, 0571190, 3806553, 2393190, [id number] ####[facility] [address] [place] [address] Chloride [Moles/Vol] 103 mmol/L Normal 101-111 [facility] Comment on above: Performed By: #### 2 018094, 4685052, 27858708, 6382826, 3605437, 9320297, [id number] ####[facility] [address] [place] [address] CO2 [Moles/Vol] 30 mmol/L Normal 21-31 [facility] Comment on above: Performed By: #### 2 551124, 1787156, 56435547, 1971103, 9533856, 1150090, [id number] ####[facility] [address] [place] [address] Glucose [Mass/Vol] 107 mg/dL Normal 55-199 [facility] Comment on above: Result Comment: If t his glucose result represents a fasting glucose, interpretation should refer to the following reference range: 55-99 mg/dL Performed By: #### 2 [id number], 2046813, [id number], 6427936, 8969911, 3742398, [id number] ####[facility] [address] [place] [address] Potassium [Moles/Vol] 3.2 mmol/L Low 3.5-5.3 [facility] Comment on above: Performed By: #### 2 508371, 8940368, 80025727, 5912500, 7104541, 8346714, [id number] ####[facility] [address] [place] [address] Sodium [Moles/Vol] 141 mmol/L Normal 135-145 [facility] Comment on above: Performed By: #### 2 179395, 5824808, 48692345, 4930449, 3043587, 3469306, [id number] ####[facility] [address] [place] [address] Urea nitrogen [Mass/Vol] 24 mg/dL High 5-21 [facility] Comment on above: Performed By: #### 2 720231, 7878942, 89722092, 8357010, 9142004, 7878706, [id number] ####[facility] [address] [place] [address] Urea nitrogen/Creatinine [Mass ratio] 12 No Units Normal 10-20 [facility] Comment on above: Performed By: #### 2 844483, 6826858, 57108478, 3683457, 8745629, 8123055, [id number] ####[facility] [address] [place] [address] Creatinine [Mass/Vol] 2.4 mg/dL High 0.5-1.3 [facility] Comment on above: Performed By: #### 2 [id number] #### [facility] [address] [place] [address] Urea nitrogen [Mass/Vol] 26 mg/dL High 5-21 [facility] Comment on above: Performed By: #### 2 [id number] #### [facility] [address] [place] [address] Urea nitrogen/Creatinine [Mass ratio] 11 No Units Normal 10-20 [facility] Comment on above: Performed By: #### 2 [id number] #### [facility] [address] [place] [address] Anion gap [Moles/Vol] 20 mmol/L High 6-16 [facility] Comment on above: Performed By: #### 2 [id number] #### [facility] [address] [place] [address] Calcium [Mass/Vol] 9.4 mg/dL Normal 8.9-11.1 [facility] Comment on above: Performed By: #### 2 [id number] #### [facility] [address] [place] [address] Chloride [Moles/Vol] 96 mmol/L Low 101-111 [facility] Comment on above: Performed By: #### 2 [id number] #### [facility] [address] [place] [address] CO2 [Moles/Vol] 26 mmol/L Normal 21-31 [facility] Comment on above: Performed By: #### 2 [id number] #### [facility] [address] [place] [address] Glucose [Mass/Vol] 131 mg/dL Normal 55-199 [facility] Comment on above: Result Comment: If t his glucose result represents a fasting glucose, interpretation should refer to the following reference range: 55-99 mg/dL Performed By: #### 2 [id number] #### [facility] [address] [place] [address] Potassium [Moles/Vol] 3.7 mmol/L Normal 3.5-5.3 [facility] Comment on above: Performed By: #### 2 [id number] #### [facility] [address] [place] [address] Sodium [Moles/Vol] 138 mmol/L Normal 135-145 [facility] Comment on above: Performed By: #### 2 [id number] #### [facility] [address] [place] [address] Blood Bank ID#on 11-11-2022 BBID# [id number] Invalid Interpretation Code [facility] Comment on above: Performed By: #### 1 [id number], [id number], [id number], [id number] ####[facility] [address] [place] [address] CBC w/ Auto Diffon 3 Erythrocyte distribution width (RBC) [Ratio] 14.2 % Normal 10.9-14.2 [facility] Comment on above: Performed By: #### 2 [id number] #### [facility] [address] [place] [address] Hematocrit (Bld) [Volume fraction] 35.6 % Normal 34.0-46.0 [facility] Comment on above: Performed By: #### 2 18805557 #### [facility] [address] [place] [address] Hemoglobin (Bld) [Mass/Vol] 12.1 g/dL Normal 12.0-16.0 [facility] Comment on above: Performed By: #### 2 [id number] #### [facility] [address] [place] [address] MCH (RBC) [Entitic mass] 30.3 pg Normal 27.0-34.0 [facility] Comment on above: Performed By: #### 2 [id number] #### [facility] [address] [place] [address] MCHC (RBC) [Mass/Vol] 34.1 g/dL Normal 31.4-36.0 [facility] Comment on above: Performed By: #### 2 [id number] #### [facility] [address] [place] [address] MCV (RBC) [Entitic vol] 89.0 fL Normal 80.0-100.0 [facility] Comment on above: Performed By: #### 2 35039609 #### [facility] [address] [place] [address] Platelet mean volume (Bld) [Entitic vol] 8.4 fL Normal 6.4-10.8 [facility] Comment on above: Performed By: #### 2 [id number] #### [facility] [address] [place] [address] Platelets (Bld) [#/Vol] 216.0 E9/L Normal 150.0-500.0 [facility] Comment on above: Result Comment: Slid e reviewed by SLICK. Performed By: #### 2 [id number] #### [facility] [address] [place] [address] RBC (Bld) [#/Vol] 4.0 E12/L Low 4.3-5.9 [facility] Comment on above: Performed By: #### 2 [id number] #### [facility] [address] [place] [address] WBC corrected for nucl RBC Auto (Bld) [#/Vol] 6.5 E9/L Normal 4.0-11.0 [facility] Comment on above: Performed By: #### 2 [id number] #### [facility] [address] [place] [address] Erythrocyte distribution width (RBC) [Ratio] 14.7 % High 10.9-14.2 [facility] Comment on above: Performed By: #### 2 53620746 #### [facility] [address] [place] [address] Hematocrit (Bld) [Volume fraction] 39.2 % Normal 34.0-46.0 [facility] Comment on above: Performed By: #### 2 [id number] #### [facility] [address] [place] [address] Hemoglobin (Bld) [Mass/Vol] 12.8 g/dL Normal 12.0-16.0 [facility] Comment on above: Performed By: #### 2 [id number] #### [facility] [address] [place] [address] MCH (RBC) [Entitic mass] 29.5 pg Normal 27.0-34.0 [facility] Comment on above: Performed By: #### 2 [id number] #### [facility] [address] [place] [address] MCHC (RBC) [Mass/Vol] 32.7 g/dL Normal 31.4-36.0 [facility] Comment on above: Performed By: #### 2 [id number] #### [facility] [address] [place] [address] MCV (RBC) [Entitic vol] 90.4 fL Normal 80.0-100.0 [facility] Comment on above: Performed By: #### 2 [id number] #### [facility] [address] [place] [address] Platelet mean volume (Bld) [Entitic vol] 8.1 fL Normal 6.4-10.8 [facility] Comment on above: Performed By: #### 2 [id number] #### [facility] [address] [place] [address] Platelets (Bld) [#/Vol] 231.0 E9/L Normal 150.0-500.0 [facility] Comment on above: Performed By: #### 2 [id number] #### [facility] [address] [place] [address] RBC (Bld) [#/Vol] 4.3 E12/L Normal 4.3-5.9 [facility] Comment on above: Performed By: #### 2 19864935 #### [facility] [address] [place] [address] WBC corrected for nucl RBC Auto (Bld) [#/Vol] 5.9 E9/L Normal 4.0-11.0 [facility] Comment on above: Performed By: #### 2 15940526 #### [facility] [address] [place] [address] [facility] [Catalytic activity/Vol] 82 Int._Unit/L Normal 14-261 [facility] Comment on above: Performed By: #### 2 489656, 1505372, 58604943, 2829192, 4357330, 2886148, 358942319 ####[facility] [address] [place] [address] CRPon 11-11-2022 CRP [Mass/Vol] 0.7 mg/dL Normal <=1.9 [facility] Comment on above: Performed By: #### 2 [id number] #### [facility] [address] [place] [address] CT Abdomen/Pelvis w/o Contra ston 11-11-2022 CT [...] Signature): 11/11/2022 8:48 am Signed by: Santos Garica MD, V. Transcribed by: SHALOM Technologist: ASPEN Technical Comments GFR (mL/min/1/73m2) trauma Contrast: Isovue 300 Contrast amount in ml's: 0 Rectal Contrast Given? No Normal [facility] CT Chest w/o Contraston 06-0 CT [...] 300 Contrast amount in ml's: 0 Normal [facility] CT Head or Brain w/o Contras [...] Technologist: ASPEN Technical Comments Contrast: None Normal [facility] CT Maxillofacial w/o Contras ton 11-11-2022 [...] V. Transcribed by: SHALOM Technologist: ASPEN Normal [facility] CT Spine Cervical w/o Contra ston [...] V. Transcribed by: SHALOM Technologist: ASPEN Normal [facility] Capillary Glucose POCon 06-0 Glucose [Mass/Vol] 203 mg/dL High 55-99 [facility] Comment on above: Result Comment: Yvonne jl Meter Performed By: #### 2 [id number] ####[facility] [address] [place] [address] Glucose [Mass/Vol] 124 mg/dL High 55-99 [facility] Comment on above: Result Comment: Michelle PACHECO Performed By: #### 2 [id number] #### [facility] [address] [place] [address] Glucose [Mass/Vol] 109 mg/dL High 55-99 [facility] Comment on above: Result Comment: Michelle PACHECO Performed By: #### 2 [id number] ####[facility] [address] [place] [address] ED Clinical Summaryon 2022 ED Clinical Summary [facility] [address] [place], [place] [address] ED Clinical Summary Person Information Name: NADIA PATTERSON [facility] Age: 77 Years : 1945 Sex: Female Language: [place] Citizen PCP: HARPAL HAYES MD Marital Status: Phone: [phone] Visit Id: Visit Reason: Closed head injury without LOC; Multiple falls; Dizziness; FALL Speciality: Acuity: 2 Enc Type: Observation Med Service: Emergency Arrival: 11/10/2022 21:12:12 Discharge: LOS: 000 13:48 Checkin: 11/10/2022 21:12:12 Checkout: 11/11/2022 11:00:39 Dispo Type: Admitted as IP to this [facility] EVENTS: Event Name Event Status Request Date/Time [...] 11/11/2022 10:11: (more content not included)... Normal [facility] ED Note-Physicianon 11-12-19 ED Note-Physician Basic [...] and Complexity of Problems Differential Diagnosis: [] [facility] Data External documents reviewed: [] My EKG [...] ID# [id number] (more content not included)... Normal [facility] Comment on above: Result Comment: Elec tronically Signed By: Cuauhtemoc Cheema PA-C\.br\Date and Time Signed: 11/11/22 00:36 EDT\.br\Electronically Co-Signed By: Yohannes Barraza DO\.br\Date and Time Co-Signed: 11/11/22 01:06 EDT ED Patient Education Noteon 11-11-2022 ED Patient Education Note Normal [facility] ED Patient Summaryon 023 ED Patient Summary [place] [id number] Patient Discharge Instructions Person Information Name: NADIA PATTERSON Age: 77 Years Arrival Date: 11/10/2022 21:12:12 Discharge Diagnosis: 1:Fall; 2:Closed head injury; 3:Weakness; 4:Acute kidney injury superimposed on chronic kidney disease; 5:Elevated lactic acid level; 6:Diabetes; 7:Hyperlipidemia; 8:Hypothyroidism; 9:Left wrist pain; 10:Chronic pain; 11:Hypertension; 12:Obesity; Chronic kidney disease, unspecified Primary Care Physician: HARPAL HAYES MD Provider Information Primary Provider: Yohannes Barraza DO [employer] Grades 9 Thru 12 Teacher:None The exam and treatment you received in the Emergency Department were for an urgent problem and are not intended as complete care. It is important that you follow up with a doctor, nurse practitioner, or physician?s treasury assistant for ongoing care. If your symptoms [...] opioids can be used to help relieve scltjbay-gq-dsrymj pain and are often prescribed following a [...] be struggling with addiction, tell your health livestock caretaker and ask (more content not included)... Normal [facility] ED Traumaon 11-11-2022 ED Trauma [id number] [id number]:127 Normal [facility] Ethanolon 11-11-2022 Ethanol [Mass/Vol] mg/dL Normal <=7 [facility] Comment on above: Performed By: #### 2 [id number] #### [facility] [address] [place] [address] Hep Func Panelon 11-11-2022 Albumin [Mass/Vol] 3.7 g/dL Normal 3.3-5.0 [facility] Comment on above: Performed By: #### 2 [id number] #### [facility] [address] [place] [address] Albumin/Globulin (S) [Mass conc ratio] 1.2 Normal 1.1-2.2 [facility] Comment on above: Performed By: #### 2 [id number] #### [facility] [address] [place] [address] ALP [Catalytic activity/Vol] 63 Int._Unit/L Normal 21-98 [facility] Comment on above: Performed By: #### 2 [id number] #### [facility] [address] [place] [address] ALT No additional P-5'-P [Catalytic activity/Vol] 17 Int._Unit/L Normal 6-46 [facility] Comment on above: Performed By: #### 2 [id number] #### [facility] [address] [place] [address] AST [Catalytic activity/Vol] 25 Int._Unit/L Normal 5-43 [facility] Comment on above: Performed By: #### 2 [id number] #### [facility] [address] [place] [address] Bilirubin [Mass/Vol] 0.7 mg/dL Normal 0.0-1.1 [facility] Comment on above: Performed By: #### 2 [id number] #### [facility] [address] [place] [address] Bilirubin.direct [Mass/Vol] 0.1 mg/dL Normal 0.1-0.4 [facility] Comment on above: Performed By: #### 2 [id number] #### [facility] [address] [place] [address] Bilirubin.indirect [Mass or moles/Vol] 0.6 mg/dL Normal 0.1-0.9 [facility] Comment on above: Performed By: #### 2 [id number] #### [facility] [address] [place] [address] Globulin (S) [Mass/Vol] 3.1 g/dL Normal 1.4-4.0 [facility] Comment on above: Performed By: #### 2 [id number] #### [facility] [address] [place] [address] Protein [Mass/Vol] 6.8 g/dL Normal 6.0-7.8 [facility] Comment on above: Performed By: #### 2 [id number] #### [facility] [address] [place] [address] MqtB3ndw 11-11-2022 HbA1c (Bld) [Mass fraction] 6.9 % High <=5.9 [facility] Comment on above: Performed By: #### 2 452938, 1786143, 27159893, 8788083, 7551690, 7911188, 418043274 ####[facility] [address] [place] [address] Interdisciplinary Note - [place] e Manageron 11-11-2022 Interdisciplinary Note - 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 PT/OT rec SNF. CRM will discuss with pt and family. Patient will need 3MN stay. ANt dc TBD. 0 Normal [facility] Comment on above: Result Comment: Elec tronically Signed By: Kaylie Díaz.olaf\Date and Time Signed: 11/11/22 15:15 EDT Interdisciplinary Note - José n 11-11-2022 Interdisciplinary Note - OT 11/11/22: OT orders received, chart reviewed. Per PT, Pt is independent in room and reports no questions/concerns with going home safely. No OT eval completed at this time. Normal [facility] Interdisciplinary Note - OT OT six clicks score: 14=SNF. Main barriers towards Pt's safe and functional performance is Pt's generalized weakness, activity tolerance, and L wrist pain. OT to follow daily, progressing as tolerates. SNF recommended for discharge to maximize Pt's safety and independence with all self care tasks and functional transfers. Normal [facility] Lactic Acidon 11-11-2022 Lactate [Mass/Vol] 1.3 mmol/L Normal 0.5-2.2 [facility] Comment on above: Performed By: #### 2 [id number] #### [facility] [address] [place] [address] Lactate [Mass/Vol] 3.8 mmol/L High 0.5-2.2 [facility] Comment on above: Performed By: #### 2 [id number] #### [facility] [address] [place] [address] Lipase Levelon 11-11-2022 Lipase [Catalytic activity/Vol] 26 U/L Normal 13-58 [facility] Comment on above: Performed By: #### 2 [id number] #### [facility] [address] [place] [address] Monitor Recordon 11-11-2022 Monitor Record [id number] 8#[id number]:127 Normal [facility] Outside Recordson 11-11-2022 Outside Records [id number] 7#[id number]:127 Normal [facility] PT & PTTon 11-11-2022 aPTT Coag (PPP) [Time] 45.4 second(s) High 25.1-36.5 [facility] Comment on above: Result Comment: Para [...] the same coagulation reagent and instrumentation as [facility]. Currently there are no coagulation studies available worldwide for children to 14 days, and no normal ranges. Heparin therapeutic range (represented by Anti-Factor Xa activity of 0.2 - 0.4 U/mL) corresponds to PTT of 56.6 - 109.0 sec. Performed By: #### 2 [id number] #### [facility] [address] [place] [address] INR Coag (PPP) [Relative time] 1.1 {INR} Invalid Interpretation Code [facility] Comment on above: Result Comment: INR results are specifically intended to assess patients stabilized on long-term Anticoagulation therapy suggested INR?s ?Less Intensive Anticoagulation? 2.0 ? 3.0 Conventional Range 3.0 ? 4.5 Performed By: #### 2 [id number] #### [facility] [address] [place] [address] PT Coag (PPP) [Time] 12.4 second(s) Normal 9.4-12.5 [facility] Comment on above: Result Comment: 15 [...] the same coagulation reagent and instrumentation as [facility]. Currently there are no coagulation studies available worldwide for children to 14 days, and no normal ranges. Performed By: #### 2 [id number] #### [facility] [address] [place] [address] RAD - Preliminary Cat Scan R eporton 11-11-2022 RAD - Preliminary Cat Scan Report [id number] 6#[id number]:127 Normal [facility] TSH With T4fr Reflexon 11-11 TSH Qn 0.45 m[IU]/L Normal 0.34-5.60 [facility] Comment on above: Performed By: #### 2 [id number] #### [facility] [address] [place] [address] Troponinon 11-11-2022 Troponin I.cardiac [Mass/Vol] 4.40 pg/mL Low 10.10-27.10 [facility] Comment on above: Result Comment: The 95% CI (Confidence Interval) PPV (Positive Predictive Value) for myocardial infarction in females is 38 pg/mL, in males 51 pg/mL. The results should be used in conjunction with clinical conditions of myocardial infarction. (Access High Sensitivity Troponin I Instructions For Use, Manjula Cecilia, January 2018) Performed By: #### 2 [id number] #### [facility] [address] [place] [address] U Drug Screenon 11-11-2022 Amphetamines Screen method >1000 ng/mL Ql (U) Negative Normal Negative [facility] Comment on above: Result Comment: Nega tive Cutoff: <1000 ng/mL Performed By: #### 2 [id number] #### [facility] [address] [place] [address] Barbiturates Screen Ql (U) Negative Normal Negative [facility] Comment on above: Result Comment: Nega tive Cutoff: <200 ng/mL Performed By: #### 2 [id number] #### [facility] [address] [place] [address] Benzodiazepines Ql (U) Negative Normal Negative [facility] Comment on above: Result Comment: Nega tive Cutoff: <200 ng/mL Performed By: #### 2 [id number] #### [facility] [address] [place] [address] Cocaine Ql (U) Negative Normal Negative [facility] Comment on above: Result Comment: Nega tive Cutoff: <300 ng/mL Performed By: #### 2 [id number] #### [facility] [address] [place] [address] Opiates Screen Ql (U) Positive Abnormal Negative [facility] Comment on above: Result Comment: Crit ical Result verified by repeat analysis\No confirmation requested by Donna\Unconfirmed by alternate method\Critical Result UD_OPIA:POS Called to DR MENDEZ AT ER by PAU [place] And Read Back For Confirmation at: 11/11/2022 00:38:39 Negative Cutoff: <300 ng/mL Performed By: #### 2 [id number] #### [facility] [address] [place] [address] Phencyclidine Screen method >25 ng/mL Ql (U) Negative Normal Negative [facility] Comment on above: Result Comment: Nega tive Cutoff: <25 ng/mL These drug screen results are to be used for medical (i.e., treatment) purposes only. Unconfirmed drug screening results must not be used for non-medical purposes (e.g., employment testing, legal testing). Performed By: #### 2 [id number] #### [facility] [address] [place] [address] Tetrahydrocannabinol Screen method >50 ng/mL Ql (U) Negative Normal Negative [facility] Comment on above: Result Comment: Nega tive Cutoff: <50 ng/mL Performed By: #### 2 [id number] #### [facility] [address] [place] [address] UA With Cult Reflexon 2022 Bilirubin Ql (U) Negative Normal Negative [facility] Comment on above: Performed By: #### 2 [id number] #### [facility] [address] [place] [address] Clarity (U) CLEAR Normal Clear [facility] Comment on above: Performed By: #### 2 [id number] #### [facility] [address] [place] [address] Color (U) YELLOW Normal Yellow [facility] Comment on above: Performed By: #### 2 [id number] #### [facility] [address] [place] [address] Epithelial cells.squamous LM.HPF (Urine sed) [#/Area] 0-2 Normal 0-2 [facility] Comment on above: Performed By: #### 2 [id number] #### [facility] [address] [place] [address] Glucose Test strip (U) [Mass/Vol] Negative Normal Negative [facility] Comment on above: Performed By: #### 2 [id number] #### [facility] [address] [place] [address] Hemoglobin Ql (U) Negative Normal Negative [facility] Comment on above: Performed By: #### 2 [id number] #### [facility] [address] [place] [address] Ketones (U) [Mass/Vol] Negative Normal Negative [facility] Comment on above: Performed By: #### 2 [id number] #### [facility] [address] [place] [address] Mackey.plasma/Mackey.R BC (Bld) [Mass ratio] 0-3 Normal 0-3 [facility] Comment on above: Performed By: #### 2 [id number] #### [facility] [address] [place] [address] Nitrite Ql (U) Negative Normal Negative [facility] Comment on above: Performed By: #### 2 [id number] #### [facility] [address] [place] [address] pH (U) 6.0 [pH] Invalid Interpretation Code 5.0-9.0 [facility] Comment on above: Performed By: #### 2 [id number] #### [facility] [address] [place] [address] Protein (U) [Mass/Vol] Negative Normal Negative [facility] Comment on above: Performed By: #### 2 [id number] #### [facility] [address] [place] [address] Specific gravity (U) [Rel density] <=1.005 Invalid Interpretation Code 1.005-1.030 [facility] Comment on above: Performed By: #### 2 [id number] #### [facility] [address] [place] [address] Type of Urine collection method Clean Catch Normal [facility] Comment on above: Performed By: #### 2 [id number] #### [facility] [address] [place] [address] Urobilinogen Qn (U) 0.2 {Macie'U}/dL Normal 0.0-1.0 [facility] Comment on above: Performed By: #### 2 [id number] #### [facility] [address] [place] [address] WBC Auto Ql (U) Negative Normal Negative [facility] Comment on above: Performed By: #### 2 [id number] #### [facility] [address] [place] [address] WBC LM.HPF (Urine sed) [#/Area] 0-5 Normal 0-5 [facility] Comment on above: Performed By: #### 2 [id number] #### [facility] [address] [place] [address] XR Hand 3+ Views Lefton XR Hand [...] mGy = n/a DAP = n/a Normal [facility] XR Wrist 3+ Views Lefton XR [...] mGy = na DAP = na Normal [facility] eGFRon 11-11-2022 GFR/1.73 sq M.predicted among non-blacks MDRD (S/P/Bld) [Vol rate/Area] 25 mL/min/1.73 m2 Low >=59 [facility] Comment on above: Order Comment: Order added by Discern Expert. Result Comment: Kick Boxer terrell kidney disease could be indicated at eGFR's of less than 60 mL/min/1.73m2. Kidney failure is indicated at less than 15 mL/min/1.73m2. Performed By: #### 2 [id number], [id number], [id number], [id number] ####[facility] [address] [place] [address] GFR/1.73 sq M.predicted among non-blacks MDRD (S/P/Bld) [Vol rate/Area] 20 mL/min/1.73 m2 Low >=59 [facility] Comment on above: Order Comment: Order added by Discern Expert. Result Comment: Kick Boxer terrell kidney disease could be indicated at eGFR's of less than 60 mL/min/1.73m2. Kidney failure is indicated at less than 15 mL/min/1.73m2. Performed By: #### 2 [id number] #### [facility] [address] [place] [address] Consent for Treatmenton 0 Consent for Treatment [id number] 30 [id number] #[id number] Normal [facility] CULTURE URINEon 05-30-2022 CULTURE URINE Isolate [...] F Trimethoprim/Sulfame thoxazole <=20 S F Normal [facility] Comment on above: Performed By: #### C MP, HSTROPN #### [facility] [address] [address] [address] Sahil Turk CBC AUTO DIFFon 05-27-2022 BASO # 0.0 103/ul Normal 0.0-0.1 [facility] Comment on above: Performed By: #### U RTPCR #### [facility] [address] [address] [address] Sahil Turk Basophils/100 WBC (Bld) 0.3 % Normal 0.2-2.0 [facility] Comment on above: Performed By: #### U RTPCR #### [facility] [address] [address] [address] Sahil Turk EO # 0.1 103/ul Normal 0.0-0.7 [facility] Comment on above: Performed By: #### U RTPCR #### [facility] [address] [place] [address] Dr. Sahil Turk Eosinophils/100 WBC (Bld) 0.5 % Critically low 0.9-7.0 [facility] Comment on above: Performed By: #### U RTPCR #### [facility] [address] [address] [address] Sahil Turk Erythrocyte distribution width (RBC) [Ratio] 14.1 % Normal 11.0-15.0 [facility] Comment on above: Performed By: #### U RTPCR #### [facility] [address] [place] [address] Dr. Sahil Turk Hematocrit (Bld) [Volume fraction] 38.6 % Normal 36.0-48.0 [facility] Comment on above: Performed By: #### U RTPCR #### [facility] [address] [address] [address] Sahil Turk Hemoglobin (Bld) [Mass/Vol] 12.4 g/dL Normal 12.0-16.0 [facility] Comment on above: Performed By: #### U RTPCR #### [facility] [address] [address] [address] Sahil Turk IG # 0.05 10e3/ul Critically high 0.00-0.03 [facility] Comment on above: Performed By: #### U RTPCR #### [facility] [address] [address] [address] Sahil Turk IG % 0.5 % Normal 0.0-0.5 [facility] Comment on above: Performed By: #### U RTPCR #### [facility] [address] [address] [address] Sahil Turk LYMPH # 2.1 103/ul Normal 1.2-3.8 [facility] Comment on above: Performed By: #### U RTPCR #### [facility] [address] [place] [address] Dr. Sahil Turk Lymphocytes/100 WBC (Bld) 19.2 % Critically low 20.5-60.0 [facility] Comment on above: Performed By: #### U RTPCR #### [facility] [address] [place] [address] Dr. Sahil Turk MANUAL DIFF REQ NO Normal [facility] Comment on above: Performed By: #### U RTPCR #### [facility] [address] [place] [address] Dr. Sahil Turk MCH (RBC) [Entitic mass] 29.5 pg Normal 26.7-34.0 [facility] Comment on above: Performed By: #### U RTPCR #### [facility] [address] [place] [address] Dr. Sahil Turk MCHC (RBC) [Mass/Vol] 32.1 g/dL Normal 29.9-35.2 [facility] Comment on above: Performed By: #### U RTPCR #### [facility] [address] [address] [address] Sahil Turk MCV (RBC) [Entitic vol] 91.9 fL Normal 81.0-99.0 [facility] Comment on above: Performed By: #### U RTPCR #### [facility] [address] [place] [address] Dr. Sahil Turk MONO # 0.5 103/ul Normal 0.3-0.8 [facility] Comment on above: Performed By: #### U RTPCR #### [facility] [address] [address] [address] Sahil Turk Monocytes/100 WBC (Bld) 4.6 % Normal 1.7-12.0 [facility] Comment on above: Performed By: #### U RTPCR #### [facility] [address] [address] [address] Sahil Turk NEUT # 8.3 103/ul Critically high 1.4-6.5 [facility] Comment on above: Performed By: #### U RTPCR #### [facility] [address] [address] [address] Sahil Turk Neutrophils/100 WBC (Bld) 74.9 % Normal 43.0-75.0 [facility] Comment on above: Performed By: #### U RTPCR #### [facility] [address] [place] [address] Dr. Sahil Turk Platelet mean volume (Bld) [Entitic vol] 9.3 fL Critically low 9.5-13.5 [facility] Comment on above: Performed By: #### U RTPCR #### [facility] [address] [place] [address] Dr. Sahil Turk PLT 222 103/ul Normal 150-450 [facility] Comment on above: Performed By: #### U RTPCR #### [facility] [address] [place] [address] Dr. Sahil Turk RBC 4.20 106/ul Normal 4.20-5.40 [facility] Comment on above: Performed By: #### U RTPCR #### [facility] [address] [place] [address] Dr. Sahil Turk WBC 11.0 103/ul Normal 4.0-11.0 [facility] Comment on above: Performed By: #### U RTPCR #### [facility] [address] [place] [address] Dr. Sahil Turk ER URINE PROFILEon 2 Bilirubin Ql (U) Negative Normal NEGATIVE [facility] Comment on above: Performed By: #### C MP, HSTROPN #### [facility] [address] [place] [address] Dr. Sahil Turk Clarity (U) CLEAR Normal CLEAR [facility] Comment on above: Performed By: #### C MP, HSTROPN #### [facility] [address] [address] [address] Sahil Turk Color (U) LT. YELLOW Normal YELLOW [facility] Comment on above: Performed By: #### C MP, HSTROPN #### [facility] [address] [place] [address] Dr. Sahil HAINES A micrscopic examination will be performed if indicated. Normal [facility] Comment on above: Performed By: #### C MP, HSTROPN #### [facility] [address] [place] [address] Dr. Sahil Truk Glucose Ql (U) Negative Normal NEGATIVE [facility] Comment on above: Performed By: #### C MP, HSTROPN #### [facility] [address] [place] [address] Dr. Sahil Turk Hemoglobin Ql (U) Negative Normal NEGATIVE [facility] Comment on above: Performed By: #### C MP, HSTROPN #### [facility] [address] [place] [address] Dr. Sahil Turk Ketones Ql (U) Negative Normal NEGATIVE [facility] Comment on above: Performed By: #### C MP, HSTROPN #### [facility] [address] [place] [address] Dr. Sahil Turk LEUKOCYTES SMALL Abnormal NEGATIVE [facility] Comment on above: Performed By: #### C MP, HSTROPN #### [facility] [address] [place] [address] Dr. Sahil Turk Nitrite Ql (U) Positive Abnormal NEGATIVE [facility] Comment on above: Performed By: #### C MP, HSTROPN #### [facility] [address] [place] [address] Dr. Sahil Turk pH (U) 7.0 [pH] Normal 5-9 [facility] Comment on above: Performed By: #### C JAYY, HSTROPN #### [facility] [address] [place] [address] Dr. Sahil Turk SPEC GRAVITY 1.010 Normal 1.005-<=1.0 25 [facility] Comment on above: Performed By: #### C JAYY, HSTROPN #### [facility] [address] [place] [address] Dr. Sahil Turk UA PROTEIN Negative Normal NEGATIVE/ TRACE [facility] Comment on above: Performed By: #### C JAYY, HSTROPN #### [facility] [address] [place] [address] Dr. Sahil Turk UR MICRO IND INDICATED Normal [facility] Comment on above: Performed By: #### C JAYY, HSTROPN #### [facility] [address] [place] [address] Dr. Sahil Turk Urobilinogen Qn (U) 0.2 {Macie'U}/dL Normal 0.2 - 1. 0 [facility] Comment on above: Performed By: #### C JAYY, HSTROPN #### [facility] [address] [place] [address] Dr. Sahil Turk PROF 14(COMP METB)on 022 Albumin [Mass/Vol] 3.5 g/dL Normal 3.4-5.0 [facility] Comment on above: Performed By: #### C JAYY, HSTROPN #### [facility] [address] [place] [address] Dr. Sahil Turk Albumin/Globulin [Mass ratio] 0.9 {ratio} Normal [facility] Comment on above: Performed By: #### C JAYY, HSTROPN #### [facility] [address] [place] [address] Dr. Sahil Turk ALP [Catalytic activity/Vol] 81 U/L Normal 46-116 [facility] Comment on above: Performed By: #### C JAYY, HSTROPN #### [facility] [address] [place] [address] Dr. Sahil Turk ALT [Catalytic activity/Vol] 15 U/L Normal 14-59 [facility] Comment on above: Performed By: #### C JAYY, HSTROPN #### [facility] [address] [address] [address] Sahil Turk Anion gap [Moles/Vol] 9.7 mmol/L Normal [facility] Comment on above: Performed By: #### C JAYY, HSTROPN #### [facility] [address] [address] [address] Sahil Turk AST [Catalytic activity/Vol] 20 U/L Normal 15-37 [facility] Comment on above: Performed By: #### C JAYY, HSTROPN #### [facility] [address] [place] [address] Dr. Sahil Turk Bilirubin [Mass/Vol] 0.5 mg/dL Normal 0.2-1.0 [facility] Comment on above: Performed By: #### C JAYY, HSTROPN #### [facility] [address] [address] [address] Sahil Turk Calcium [Mass/Vol] 9.5 mg/dL Normal 8.5-10.1 [facility] Comment on above: Performed By: #### C JAYY, HSTROPN #### [facility] [address] [address] [address] Sahil Turk Chloride [Moles/Vol] 100 mmol/L Normal 98-[address] [facility] Comment on above: Performed By: #### C JAYY, HSTROPN #### [facility] [address] [address] [address] Sahil Turk CO2 [Moles/Vol] 36.1 mmol/L Critically high 21.0-32.[address] [facility] Comment on above: Performed By: #### C JAYY, HSTROPN #### [facility] [address] [address] [address] Sahil Turk Creatinine [Mass/Vol] 1.67 mg/dL Critically high 0.55-1.02 [facility] Comment on above: Performed By: #### C MP, HSTROPN #### [facility] [address] [place] [address] Dr. Sahil Turk EGFR-AF [place] 36 mL/min/1.73m2 Critically low >=60 [facility] Comment on above: Performed By: #### C MP, HSTROPN #### [facility] [address] [place] [address] Dr. Sahil Turk EGFR-NON AF [place] 30 mL/min/1.73m2 Critically low >=60 [facility] Comment on above: Performed By: #### C MP, HSTROPN #### [facility] [address] [place] [address] Dr. Sahil Turk Globulin (S) [Mass/Vol] 3.8 g/dL Normal [facility] Comment on above: Performed By: #### C MP, HSTROPN #### [facility] [address] [place] [address] Dr. Sahil Turk Glucose [Mass/Vol] 181 mg/dL Critically high 74-106 [facility] Comment on above: Performed By: #### C MP, HSTROPN #### [facility] [address] [place] [address] Dr. Sahil Turk Potassium [Moles/Vol] 3.8 mmol/L Normal 3.5-5.1 [facility] Comment on above: Performed By: #### C MP, HSTROPN #### [facility] [address] [place] [address] Dr. Sahil Turk Protein [Mass/Vol] 7.3 g/dL Normal 6.4-8.2 [facility] Comment on above: Performed By: #### C MP, HSTROPN #### [facility] [address] [place] [address] Dr. Sahil Turk Sodium [Moles/Vol] 142 mmol/L Normal 136-145 [facility] Comment on above: Performed By: #### C MP, HSTROPN #### [facility] [address] [place] [address] Dr. Sahil Turk Urea nitrogen [Mass/Vol] 18.0 mg/dL Normal 7.0-18.0 [facility] Comment on above: Performed By: #### C MP, HSTROPN #### [facility] [address] [address] [address] Sahil Turk Urea nitrogen/Creatinine [Mass ratio] 10.8 mg/mg Normal [facility] Comment on above: Performed By: #### C MP, HSTROPN #### [facility] [address] [address] [address] Sahil Turk PROTIMEon 05-27-2022 INR Coag (PPP) [Relative time] 1.09 {INR} Normal [facility] Comment on above: Performed By: #### U RTPCR #### [facility] [address] [place] [address] Dr. Sahil Turk INR GUIDELINES SEE BELOW Normal [facility] Comment on above: Result Comment: LUIS ANGEL RED INR: 2.0 - 3.0 CONDITIONS NOT LISTED BELOW 2.5 - 3.5 FOR PROSTHETIC HEART VALVE REPLACEMENT 2.5 - 3.5 RECURRENT THROMBOSIS Performed By: #### U RTPCR #### [facility] [address] [place] [address] Dr. Sahil Turk PT Coag (PPP) [Time] 11.7 s Critically high 9.0-11.6 [facility] Comment on above: Performed By: #### U RTPCR #### [facility] [address] [place] [address] Dr. Sahil Turk PTTon 05-27-2022 aPTT Coag (Bld) [Time] 30.6 s Normal 22.3-36.2 [facility] Comment on above: Performed By: #### U RTPCR #### [facility] [address] [place] [address] Dr. Sahil Turk TROPONIN, HIGH SENSITIVITYon 05-27-2022 HSTROP 7.1 pg/mL Normal 4.0-51.3 [facility] Comment on above: Result Comment: CUT- OFF POINTS HAVE BEEN ESTABLISHED BASED ON THE FOURTH UNIVERSAL DEFINITIONS OF MYOCARDIAL INFARCTION. THE UPPER REFERENCE LIMIT (URL) OF TROPONIN, DEFINED THE 99TH PERCENTILE OF cTnI DISTRIBUTION IN A REFERENCE POPULATION, HAS BEEN CONFIRMED THE DECISION THRESHOLD FOR [place] DIAGNOSIS. Performed By: #### C MP, HSTROPN #### [facility] [address] [place] [address] Dr. Sahil Turk URINE MICROSCOPIC ONLYon BACTERIA LARGE Abnormal NONE SEEN [facility] Comment on above: Performed By: #### C MP, HSTROPN #### [facility] [address] [place] [address] Dr. Sahil Turk Bacteria identified Cx Nom (U) INDICATED Normal [facility] Comment on above: Performed By: #### C MP, HSTROPN #### [facility] [address] [place] [address] Dr. Sahil Turk CAST NONE SEEN Normal NONE SEEN [facility] Comment on above: Performed By: #### C MP, HSTROPN #### [facility] [address] [place] [address] Dr. Sahil Turk Crystals LM Nom (Urine sed) NONE SEEN Normal NONE SEEN [facility] Comment on above: Performed By: #### C MP, HSTROPN #### [facility] [address] [place] [address] Dr. Sahil Turk Epithelial cells LM Ql (Urine sed) RARE Normal NONE SEEN /RARE [facility] Comment on above: Performed By: #### C MP, HSTROPN #### [facility] [address] [place] [address] Dr. Sahil Turk MUCOUS NONE SEEN Normal NONE SEEN [facility] Comment on above: Performed By: #### C MP, HSTROPN #### [facility] [address] [place] [address] Dr. Sahil Turk RBC 0-2 Normal 0-[address] [facility] Comment on above: Performed By: #### C MP, HSTROPN #### [facility] [address] [place] [address] Dr. Sahil Turk WBC 0-2 Abnormal NONE SEEN [facility] Comment on above: Performed By: #### C MP, HSTROPN #### [facility] [address] [address] [address] Sahil Turk XR CHEST 1 Von [...] by: EDGARD GOMEZ Date: 2022-05-27 21:31 Normal [facility] Office Visiton 04-23-2022 Follow-up visit [id number] Nadia Patterson 1945 F Date Provider Department Center 04/23/2022 [facility] No family history on file Level of Service:23176 OR OFFICE/OUTPATIENT ESTABLISHED LOW MDM 20-29 MIN Reason for Visit and Comments: Follow-up [248513] - 6 months- Went to ER few months ago and has continued chest pain a few times since. Normal [facility] CULTURE URINEon 03-13-2022 CULTURE URINE Isolate 1 [...] F Trimethoprim/Sulfame thoxazole <=20 S F Normal [facility] Comment on above: Performed By: #### C ACACIA HOPE #### [facility] [address] [place] [address] Dr. Sahil Turk BNPon 03-11-2022 Natriuretic peptide B (Bld) [Mass/Vol] 449.0 pg/mL Normal <=1,800.0 [facility] Comment on above: Performed By: #### U RTPCR #### [facility] [address] [place] [address] Dr. Sahil Turk CBC AUTO DIFFon 03-11-2022 BASO # 0.0 103/ul Normal 0.0-0.1 [facility] Comment on above: Performed By: #### C MP, HSTROPN #### [facility] [address] [place] [address] Dr. Sahil Turk Basophils/100 WBC (Bld) 0.6 % Normal 0.2-2.0 [facility] Comment on above: Performed By: #### C MP, HSTROPN #### [facility] [address] [place] [address] Dr. Sahil Turk EO # 0.1 103/ul Normal 0.0-0.[address] [facility] Comment on above: Performed By: #### C MP, HSTROPN #### [facility] [address] [place] [address] Dr. Sahil Turk Eosinophils/100 WBC (Bld) 2.8 % Normal 0.9-7.0 [facility] Comment on above: Performed By: #### C MP, HSTROPN #### [facility] [address] [place] [address] Dr. Sahil Turk Erythrocyte distribution width (RBC) [Ratio] 13.7 % Normal 11.0-15.0 [facility] Comment on above: Performed By: #### C MP, HSTROPN #### [facility] [address] [place] [address] Dr. Sahil Turk Hematocrit (Bld) [Volume fraction] 39.2 % Normal 36.0-48.0 [facility] Comment on above: Performed By: #### C MP, HSTROPN #### [facility] [address] [address] [address] Sahil Turk Hemoglobin (Bld) [Mass/Vol] 12.7 g/dL Normal 12.0-16.[address] [facility] Comment on above: Performed By: #### C MP, HSTROPN #### [facility] [address] [address] [address] Sahil Turk IG # 0.01 10e3/ul Normal 0.00-0.[address] [facility] Comment on above: Performed By: #### C MP, HSTROPN #### [facility] [address] [place] [address] Dr. Sahil Turk IG % 0.2 % Normal 0.0-0.[address] [facility] Comment on above: Performed By: #### C MP, HSTROPN #### [facility] [address] [place] [address] Dr. Sahil Turk LYMPH # 1.9 103/ul Normal 1.2-3.[address] [facility] Comment on above: Performed By: #### C MP, HSTROPN #### [facility] [address] [place] [address] Dr. Sahil Turk Lymphocytes/100 WBC (Bld) 37.8 % Normal 20.5-60.[address] [facility] Comment on above: Performed By: #### C MP, HSTROPN #### [facility] [address] [place] [address] Dr. Sahil Turk MANUAL DIFF REQ NO Normal [facility] Comment on above: Performed By: #### C MP, HSTROPN #### [facility] [address] [place] [address] Dr. Sahil Turk MCH (RBC) [Entitic mass] 30.5 pg Normal 26.7-34.[address] [facility] Comment on above: Performed By: #### C MP, HSTROPN #### [facility] [address] [place] [address] Dr. Sahil Turk MCHC (RBC) [Mass/Vol] 32.4 g/dL Normal 29.9-35.2 [facility] Comment on above: Performed By: #### C MP, HSTROPN #### [facility] [address] [place] [address] Dr. Sahil Turk MCV (RBC) [Entitic vol] 94.0 fL Normal 81.0-99.0 [facility] Comment on above: Performed By: #### C MP, HSTROPN #### [facility] [address] [place] [address] Dr. Sahil Turk MONO # 0.4 103/ul Normal 0.3-0.8 [facility] Comment on above: Performed By: #### C MP, HSTROPN #### [facility] [address] [place] [address] Dr. Sahil Turk Monocytes/100 WBC (Bld) 7.0 % Normal 1.7-12.0 [facility] Comment on above: Performed By: #### C MP, HSTROPN #### [facility] [facility] [address] [place] [address] Dr. Sahil Turk NEUT # 2.6 103/ul Normal 1.4-6.5 [facility] Comment on above: Performed By: #### C MP, HSTROPN #### [facility] [address] [place] [address] Dr. Sahil Turk Neutrophils/100 WBC (Bld) 51.6 % Normal 43.0-75.0 [facility] Comment on above: Performed By: #### C MP, HSTROPN #### [facility] [address] [place] [address] Dr. Sahil Turk Platelet mean volume (Bld) [Entitic vol] 9.9 fL Normal 9.5-13.5 [facility] Comment on above: Performed By: #### C MP, HSTROPN #### [facility] [address] [place] [address] Dr. Sahil Turk PLT 220 103/ul Normal 150-[address] [facility] Comment on above: Performed By: #### C MP, HSTROPN #### [facility] [address] [address] [address] Sahil Turk RBC 4.17 106/ul Critically low 4.20-5.40 [facility] Comment on above: Performed By: #### C JAYY, HSTROPN #### [facility] [address] [place] [address] Dr. Sahil Turk WBC 5.0 103/ul Normal 4.0-11.0 [facility] Comment on above: Performed By: #### C MP, HSTROPN #### [facility] [address] [place] [address] Dr. Sahil Turk ER URINE PROFILEon 2 Bilirubin Ql (U) Negative Normal NEGATIVE [facility] Comment on above: Performed By: #### M G, RENAL, URIC #### [facility] [address] [place] [address] Dr. Sahil Turk Clarity (U) CLEAR Normal CLEAR The [facility] Comment on above: Performed By: #### M G, RENAL, URIC #### [facility] [address] [place] [address] Dr. Sahil Turk Color (U) LT. YELLOW Normal YELLOW [facility] Comment on above: Performed By: #### M G, RENAL, URIC #### [facility] [address] [place] [address] Dr. Sahil VILLEGASD A micrscopic examination will be performed if indicated. Normal The [facility] Comment on above: Performed By: #### M G, RENAL, URIC #### [facility] [address] [place] [address] Dr. Sahil Turk Glucose Ql (U) Negative Normal NEGATIVE The [facility] Comment on above: Performed By: #### M G, RENAL, URIC #### [facility] [address] [place] [address] Dr. Sahil Turk Hemoglobin Ql (U) Negative Normal NEGATIVE The [facility] Comment on above: Performed By: #### M G, RENAL, URIC #### [facility] [address] [place] [address] Dr. Sahil Turk Ketones Ql (U) Negative Normal NEGATIVE The [facility] Comment on above: Performed By: #### M G, RENAL, URIC #### [facility] [address] [place] [address] Dr. Sahil Turk LEUKOCYTES SMALL Abnormal NEGATIVE The [facility] Comment on above: Performed By: #### M G, RENAL, URIC #### [facility] [address] [place] [address] Dr. Sahil Turk Nitrite Ql (U) Positive Abnormal NEGATIVE The [facility] Comment on above: Performed By: #### M G, RENAL, URIC #### [facility] [address] [place] [address] Dr. Sahil Turk pH (U) 6.5 [pH] Normal 5-[address] [facility] Comment on above: Performed By: #### M G, RENAL, URIC #### [facility] [address] [place] [address] Dr. Sahil Turk SPEC GRAVITY 1.010 Normal 1.005-<=1.0 25 [facility] Comment on above: Performed By: #### M G, RENAL, URIC #### [facility] [address] [place] [address] Dr. Sahil Turk UA PROTEIN Negative Normal NEGATIVE/ TRACE [facility] Comment on above: Performed By: #### M G, RENAL, URIC #### [facility] [address] [place] [address] Dr. Sahil Turk UR MICRO IND INDICATED Normal [facility] Comment on above: Performed By: #### M G, RENAL, URIC #### [facility] [address] [place] [address] Dr. Sahil Turk Urobilinogen Qn (U) 0.2 {Macie'U}/dL Normal 0.2 - 1. 0 [facility] Comment on above: Performed By: #### M G, RENAL, URIC #### [facility] [address] [place] [address] Dr. Sahil Turk LIPASEon 03-11-2022 Lipase [Catalytic activity/Vol] 40.0 U/L Critically low 73.0-393.0 [facility] Comment on above: Performed By: #### U RTPCR #### [facility] [address] [place] [address] Dr. Sahil Turk PROF 14(COMP METB)on 022 Albumin [Mass/Vol] 3.5 g/dL Normal 3.4-5.0 [facility] Comment on above: Performed By: #### M G, RENAL, URIC #### [facility] [address] [address] [address] Sahil Turk Albumin/Globulin [Mass ratio] 1.1 {ratio} Normal [facility] Comment on above: Performed By: #### M G, RENAL, URIC #### [facility] [address] [place] [address] Dr. Sahil Turk ALP [Catalytic activity/Vol] 69 U/L Normal 46-116 [facility] Comment on above: Performed By: #### M G, RENAL, URIC #### [facility] [address] [place] [address] Dr. Sahil Turk ALT [Catalytic activity/Vol] 18 U/L Normal 14-59 [facility] Comment on above: Performed By: #### M G, RENAL, URIC #### [facility] [address] [place] [address] Dr. Sahil Turk Anion gap [Moles/Vol] 10.6 mmol/L Normal [facility] Comment on above: Performed By: #### M G, RENAL, URIC #### [facility] [address] [address] [address] Sahil Turk AST [Catalytic activity/Vol] 21 U/L Normal 15-37 [facility] Comment on above: Performed By: #### M G, RENAL, URIC #### [facility] [address] [address] [address] Sahil Turk Bilirubin [Mass/Vol] 0.4 mg/dL Normal 0.2-1.0 [facility] Comment on above: Performed By: #### M G, RENAL, URIC #### [facility] [address] [place] [address] Dr. Sahil Turk Calcium [Mass/Vol] 9.6 mg/dL Normal 8.5-10.1 [facility] Comment on above: Performed By: #### M G, RENAL, URIC #### [facility] [address] [place] [address] Dr. Sahil Turk Chloride [Moles/Vol] 102 mmol/L Normal 98-107 [facility] Comment on above: Performed By: #### M G, RENAL, URIC #### [facility] [address] [place] [address] Dr. Sahil Turk CO2 [Moles/Vol] 33.1 mmol/L Critically high 21.0-32.0 [facility] Comment on above: Performed By: #### M G, RENAL, URIC #### [facility] [address] [place] [address] Dr. Sahil Turk Creatinine [Mass/Vol] 1.40 mg/dL Critically high 0.55-1.02 [facility] Comment on above: Performed By: #### M G, RENAL, URIC #### [facility] [address] [place] [address] Dr. Sahil Turk EGFR-AF [place] 44 mL/min/1.73m2 Critically low >=60 [facility] Comment on above: Performed By: #### M G, RENAL, URIC #### [facility] [address] [place] [address] Dr. Sahil Turk EGFR-NON AF [place] 36 mL/min/1.73m2 Critically low >=60 [facility] Comment on above: Performed By: #### M G, RENAL, URIC #### [facility] [address] [place] [address] Dr. Sahil Turk Globulin (S) [Mass/Vol] 3.3 g/dL Normal [facility] Comment on above: Performed By: #### M G, RENAL, URIC #### [facility] [address] [place] [address] Dr. Sahil Turk Glucose [Mass/Vol] 107 mg/dL Critically high 74-106 [facility] Comment on above: Performed By: #### M G, RENAL, URIC #### [facility] [address] [address] [address] Sahil Turk Potassium [Moles/Vol] 3.7 mmol/L Normal 3.5-5.[address] [facility] Comment on above: Performed By: #### M G, RENAL, URIC #### [facility] [address] [address] [address] Sahil Turk Protein [Mass/Vol] 6.8 g/dL Normal 6.4-8.2 [facility] Comment on above: Performed By: #### M G, RENAL, URIC #### [facility] [address] [address] [address] Sahil Turk Sodium [Moles/Vol] 142 mmol/L Normal 136-145 [facility] Comment on above: Performed By: #### M G, RENAL, URIC #### [facility] [address] [place] [address] Dr. Sahil Turk Urea nitrogen [Mass/Vol] 16.0 mg/dL Normal 7.0-18.0 [facility] Comment on above: Performed By: #### M G, RENAL, URIC #### [facility] [address] [address] [address] Sahil Turk Urea nitrogen/Creatinine [Mass ratio] 11.4 mg/mg Normal [facility] Comment on above: Performed By: #### M G, RENAL, URIC #### [facility] [address] [place] [address] Dr. Sahil Turk PROTIMEon 03-11-2022 INR Coag (PPP) [Relative time] 1.03 {INR} Normal [facility] Comment on above: Performed By: #### C MP, HSTROPN #### [facility] [address] [place] [address] Dr. Sahil Turk INR GUIDELINES SEE BELOW Normal [facility] Comment on above: Result Comment: LUIS ANGEL RED INR: 2.0 - 3.0 CONDITIONS NOT LISTED BELOW 2.5 - 3.5 FOR PROSTHETIC HEART VALVE REPLACEMENT 2.5 - 3.5 RECURRENT THROMBOSIS Performed By: #### C MP, HSTROPN #### [facility] [address] [address] [address] Sahil Turk PT Coag (PPP) [Time] 11.1 s Normal 9.0-11.6 [facility] Comment on above: Performed By: #### C MP, HSTROPN #### [facility] [address] [place] [address] Dr. Sahil Turk PTTon 03-11-2022 aPTT Coag (Bld) [Time] 25.4 s Normal 22.3-36.[address] [facility] Comment on above: Performed By: #### C MP, HSTROPN #### [facility] [address] [place] [address] Dr. Sahil Turk TROPONIN, HIGH SENSITIVITYon 03-11-2022 HSTROP 7.5 pg/mL Normal 4.0-51.3 [facility] Comment on above: Result Comment: CUT- OFF POINTS HAVE BEEN ESTABLISHED BASED ON THE FOURTH UNIVERSAL DEFINITIONS OF MYOCARDIAL INFARCTION. THE UPPER REFERENCE LIMIT (URL) OF TROPONIN, DEFINED THE 99TH PERCENTILE OF cTnI DISTRIBUTION IN A REFERENCE POPULATION, HAS BEEN CONFIRMED THE DECISION THRESHOLD FOR KS DIAGNOSIS. Performed By: #### M G, RENAL, URIC #### [facility] [address] [place] [address] Dr. Sahil Turk HSTROP 7.9 pg/mL Normal 4.0-51.[address] [facility] Comment on above: Result Comment: CUT- OFF POINTS HAVE BEEN ESTABLISHED BASED ON THE FOURTH UNIVERSAL DEFINITIONS OF MYOCARDIAL INFARCTION. THE UPPER REFERENCE LIMIT (URL) OF TROPONIN, DEFINED THE 99TH PERCENTILE OF cTnI DISTRIBUTION IN A REFERENCE POPULATION, HAS BEEN CONFIRMED THE DECISION THRESHOLD FOR [place] DIAGNOSIS. Performed By: #### U RTPCR #### [facility] [address] [place] [address] Dr. Sahil Turk URINE MICROSCOPIC ONLYon BACTERIA SMALL Abnormal NONE SEEN The [facility] Comment on above: Performed By: #### M G, RENAL, URIC #### [facility] [address] [place] [address] Dr. Sahil Turk Bacteria identified Cx Nom (U) INDICATED Normal [facility] Comment on above: Performed By: #### M G, RENAL, URIC #### [facility] [address] [address] [address] Sahil Turk CAST NONE SEEN Normal NONE SEEN [facility] Comment on above: Performed By: #### M G, RENAL, URIC #### [facility] [address] [place] [address] Dr. Sahil Turk Crystals LM Nom (Urine sed) NONE SEEN Normal NONE SEEN [facility] Comment on above: Performed By: #### M G, RENAL, URIC #### [facility] [address] [place] [address] Dr. Sahil Turk Epithelial cells LM Ql (Urine sed) RARE Normal NONE SEEN /RARE [facility] Comment on above: Performed By: #### M G, RENAL, URIC #### [facility] [address] [place] [address] Dr. Sahil Turk MUCOUS NONE SEEN Normal NONE SEEN [facility] Comment on above: Performed By: #### M G, RENAL, URIC #### [facility] [address] [place] [address] Dr. Sahil Turk RBC 0-2 Normal 0-[address] [facility] Comment on above: Performed By: #### M G, RENAL, URIC #### [facility] [address] [place] [address] Dr. Sahil Turk WBC 5-10 Abnormal NONE SEEN The [facility] Comment on above: Performed By: #### M G, RENAL, URIC #### [facility] [address] [place] [address] Dr. Sahil Turk XR CHEST 1 Von [...] HAWK MUNGUIA Date: 2022-03-11 14:27 Normal [facility] CT CSPINE WO CONon 2 CT [...] LEISA CELAYA Date: 2022-02-22 08:12 Normal [facility] CT HEAD WO CONon 02-21-2022 CT [...] ANDRADE LEWIS Date: 2022-02-21 16:40 Normal [address] [facility] CT LSPINE WO CONon 2 CT LSPINE WO CON EXAMINATION: CT LSPINE WO CON, 02/21/2022, 3:54 PM EDT HISTORY: Pain COMPARISON: None. TECHNIQUE: CT of the lumbar spine was performed without IV contrast. CT dose reduction technique was used, including Automated Exposure Control. FINDINGS: HR ASSOCIATE RADIOGRAPH: Unremarkable. MINERALIZATION: Probable mild osteopenia. VERTEBRAL [...] by: LINDA MCDANIEL Date: 2022-02-21 17:26 Normal [facility] XR HIP LT 2 3V W PELVISon [...] by: ANDRADE LEWIS Date: 2022-02-21 16:51 Normal [facility] Erroneous Encounteron 2021 Erroneous Encounter [id number] Nadia Patterson 1945 F Date Provider Department Center [facility]2022 [facility] No family history on file Reason for Visit and Comments: Error (VOID this visit) [77] Normal [facility] Progress Noteson 02-18-2022 [employer] Authentication Interface Message Text EMERGENCY TRIAGE, TREAT AND TRANSPORT (ET3) DOCUMENTATION OF TELEHEALTH VISIT Date / Time: 01/08/2022 / 0345am Name: Suhas Patterson : 1945 SSN: [id number] EMS Agency: [facility] [x] Verbal consent obtained [] Implied [...] Completed by: Madai Webb MD Normal [facility] 02-11-2022 Abstract [id number] YeseniaNadia M 1945 F Date Provider Department Center 02/11/2022 [facility] MAY No family history on file Normal [facility] Abstracton 02-06-2022 Abstract [id number] Nadia Patterson 1945 F Date Provider Department Center 02/06/2022 [facility] MAY No family history on file Normal [facility] ECHOCARDIO M/2D COMPLETEon 0 01-06-2022 ECHOCARDIO M/2D COMPLETE Patient: KAI PATTERSONMAGNOLIA Dong. Exam Date: 01/06/2022 : 1945 Gender:F Ordering : MEI DAS Admission #: [id number] Family : DR HARPAL HAYES M.D. Order #: [id number] CLICK HERE TO VIEW EXAM ECHOCARDIOGRAM REPORT [...] M.D. on 01/06/2022 at 17:18 Normal [facility] PTH INTACTon 12-11-2021 PTH, Intact 31 pg/mL Normal 15-65 [facility] Comment on above: Performed By: #### C MP, HSTROPN #### [facility] [address] [place] [address] Dr. Sahil Turk FERRITINon 12-10-2021 Ferritin [Mass/Vol] 53.0 ng/mL Normal 8.0-252.0 [facility] Comment on above: Performed By: #### C MP, HSTROPN #### [facility] [address] [place] [address] Dr. Sahil Turk HEMOGRAM AND PLATELon 2021 Hematocrit (Bld) [Volume fraction] 38.4 % Normal 36.0-48.0 [facility] Comment on above: Performed By: #### M G, RENAL, URIC #### [facility] [address] [place] [address] Dr. Sahil Turk Hemoglobin (Bld) [Mass/Vol] 12.5 g/dL Normal 12.0-16.0 [facility] Comment on above: Performed By: #### M G, RENAL, URIC #### [facility] [address] [place] [address] Dr. Sahil Turk MCH (RBC) [Entitic mass] 29.4 pg Normal 26.7-34.0 [facility] Comment on above: Performed By: #### M G, RENAL, URIC #### [facility] [address] [place] [address] Dr. Sahil Turk MCHC (RBC) [Mass/Vol] 32.6 g/dL Normal 29.9-35.2 [facility] Comment on above: Performed By: #### M G, RENAL, URIC #### [facility] [address] [place] [address] Dr. Sahil Turk MCV (RBC) [Entitic vol] 90.4 fL Normal 81.0-99.0 [facility] Comment on above: Performed By: #### M G, RENAL, URIC #### [facility] [address] [place] [address] Dr. Sahil Turk PLT 263 103/ul Normal 150-450 [facility] Comment on above: Performed By: #### M G, RENAL, URIC #### [facility] [address] [place] [address] Dr. Sahil Turk RBC 4.25 106/ul Normal 4.20-5.40 [facility] Comment on above: Performed By: #### M G, RENAL, URIC #### [facility] [address] [place] [address] Dr. Sahil Turk WBC 7.1 103/ul Normal 4.0-11.0 [facility] Comment on above: Performed By: #### M G, RENAL, URIC #### [facility] [address] [place] [address] Dr. Sahil Turk IRON AND TIBCon 12-10-2021 % SATURATION 20.3 % Normal [facility] Comment on above: Performed By: #### C MP HSTROPN #### [facility] [address] [place] [address] Dr. Sahil Turk Iron [Mass/Vol] 61.0 ug/dL Normal 50.0-170.0 [facility] Comment on above: Performed By: #### C JAYY HSTROPN #### [facility] [address] [place] [address] Dr. Sahil Turk TIBC DIRECT 300.0 ug/dL Normal 250.0-450.0 [facility] Comment on above: Performed By: #### C MP, HSTROPN #### [facility] [address] [place] [address] Dr. Sahil Turk MAGNESIUMon 12-10-2021 Magnesium [Mass/Vol] 1.7 mg/dL Critically low 1.8-2.4 [facility] Comment on above: Performed By: #### M G, RENAL, URIC #### [facility] [address] [address] [address] Sahil Turk RENAL FUNCTION PANELon 12-10 Albumin [Mass/Vol] 3.7 g/dL Normal 3.4-5.0 [facility] Comment on above: Performed By: #### M G, RENAL, URIC #### [facility] [address] [address] [address] Sahil Turk Calcium [Mass/Vol] 9.6 mg/dL Normal 8.5-10.1 [facility] Comment on above: Performed By: #### M G, RENAL, URIC #### [facility] [address] [address] [address] Sahil Turk Chloride [Moles/Vol] 102 mmol/L Normal 98-107 [facility] Comment on above: Performed By: #### M G, RENAL, URIC #### [facility] [address] [place] [address] Dr. Sahil Turk CO2 [Moles/Vol] 28.3 mmol/L Normal 21.0-32.[address] [facility] Comment on above: Performed By: #### M G, RENAL, URIC #### [facility] [address] [address] [address] Sahil Turk Creatinine [Mass/Vol] 1.42 mg/dL Critically high 0.55-1.02 [facility] Comment on above: Performed By: #### M G, RENAL, URIC #### [facility] [address] [address] [address] Sahil Turk EGFR-AF [place] 43 mL/min/1.73m2 Critically low >=[address] [facility] Comment on above: Performed By: #### M G, RENAL, URIC #### [facility] [address] [address] [address] Sahil Turk EGFR-NON AF [place] 36 mL/min/1.73m2 Critically low >=60 [facility] Comment on above: Performed By: #### M G, RENAL, URIC #### [facility] [address] [address] [address] Sahil Turk Glucose [Mass/Vol] 112 mg/dL Critically high 74-106 T [facility] Comment on above: Performed By: #### M G, RENAL, URIC #### [facility] [address] [place] [address] Dr. Sahil Turk Phosphate [Mass/Vol] 3.4 mg/dL Normal 2.6-4.7 [facility] Comment on above: Performed By: #### M G, RENAL, URIC #### [facility] [address] [place] [address] Dr. Sahil Turk Potassium [Moles/Vol] 3.9 mmol/L Normal 3.5-5.1 [facility] Comment on above: Performed By: #### M G, RENAL, URIC #### [facility] [address] [place] [address] Dr. Sahil Turk Sodium [Moles/Vol] 140 mmol/L Normal 136-145 [facility] Comment on above: Performed By: #### M G, RENAL, URIC #### [facility] [address] [place] [address] Dr. Sahil Turk Urea nitrogen [Mass/Vol] 29.0 mg/dL Critically high 7.0-18 .0 [facility] Comment on above: Performed By: #### M G, RENAL, URIC #### [facility] [address] [place] [address] Dr. Sahil Turk UA RANDOM W/MICROSCOPICon BACTERIA NONE SEEN Normal NONE SEEN [facility] Comment on above: Performed By: #### M G, RENAL, URIC #### [facility] [address] [place] [address] Dr. Sahli Turk Bilirubin Ql (U) Negative Normal NEGATIVE [facility] Comment on above: Performed By: #### M G, RENAL, URIC #### [facility] [address] [place] [address] Dr. Sahil Turk CAST NONE SEEN Normal NONE SEEN [facility] Comment on above: Performed By: #### M G, RENAL, URIC #### [facility] [address] [place] [address] Dr. Sahil Turk Clarity (U) CLEAR Normal CLEAR [facility] Comment on above: Performed By: #### M G, RENAL, URIC #### [facility] [address] [address] [address] Sahil Turk Color (U) LT. YELLOW Normal YELLOW [facility] Comment on above: Performed By: #### M G, RENAL, URIC #### [facility] [address] [address] [address] Sahil Turk Crystals LM Nom (Urine sed) NONE SEEN Normal NONE SEEN [facility] Comment on above: Performed By: #### M G, RENAL, URIC #### [facility] [address] [address] [address] Sahil Turk Epithelial cells LM Ql (Urine sed) NONE SEEN Normal NONE SEEN /RARE [facility] Comment on above: Performed By: #### M G, RENAL, URIC #### [facility] [address] [place] [address] Dr. Sahil Turk Glucose Ql (U) Negative Normal NEGATIVE [facility] Comment on above: Performed By: #### M G, RENAL, URIC #### [facility] [address] [address] [address] Sahil Turk Hemoglobin Ql (U) Negative Normal NEGATIVE [facility] Comment on above: Performed By: #### M G, RENAL, URIC #### [facility] [address] [address] [address] Sahil Turk Ketones Ql (U) Negative Normal NEGATIVE [facility] Comment on above: Performed By: #### M G, RENAL, URIC #### [facility] [address] [address] [address] Sahil Turk LEUKOCYTES Negative Normal NEGATIVE The [facility] Comment on above: Performed By: #### M G, RENAL, URIC #### [facility] [address] [address] [address] Sahil Turk MUCOUS NONE SEEN Normal NONE SEEN [facility] Comment on above: Performed By: #### M G, RENAL, URIC #### [facility] [address] [address] [address] Sahil Turk Nitrite Ql (U) Negative Normal NEGATIVE [facility] Comment on above: Performed By: #### M G, RENAL, URIC #### [facility] [address] [address] [address] Sahil Turk pH (U) 7.0 [pH] Normal 5-[address] [facility] Comment on above: Performed By: #### M G, RENAL, URIC #### [facility] [address] [address] [address] Sahil Turk RBC NONE SEEN Abnormal 0-[address] [facility] Comment on above: Performed By: #### M G, RENAL, URIC #### [facility] [address] [address] [address] Sahil Turk SPEC GRAVITY 1.010 Normal 1.005-<=1.0 25 [facility] Comment on above: Performed By: #### M G, RENAL, URIC #### [facility] [address] [place] [address] Dr. Sahil Turk UA PROTEIN Negative Normal NEGATIVE/ TRACE The [facility] Comment on above: Performed By: #### M G, RENAL, URIC #### [facility] [address] [address] [address] Sahil Turk Urobilinogen Qn (U) 0.2 {Macie'U}/dL Normal 0.2 - 1. 0 [facility] Comment on above: Performed By: #### M G, RENAL, URIC #### [facility] [address] [address] [address] Sahil Turk WBC NONE SEEN Normal NONE SEEN The [facility] Comment on above: Performed By: #### M G, RENAL, URIC #### [facility] [address] [address] [address] Sahil Turk URIC ACID SERUMon 12-10-2021 Urate [Mass/Vol] 6.6 mg/dL Critically high 2.6-6.0 [facility] Comment on above: Performed By: #### M G, RENAL, URIC #### [facility] [address] [address] [address] Sahil Turk URINE T PROTEIN CREAT RATIOo n 12-10-2021 UR TOTAL PROTEIN <6.0 Normal <=12.[address] [facility] Comment on above: Performed By: #### U RTPCR #### [facility] [address] [address] [address] Sahil Turk URINE CREAT <13.00 Critically low 20.00-300.0 0 [facility] Comment on above: Performed By: #### U RTPCR #### [facility] [address] [address] [address] Sahil Turk VITAMIN D 25 OHon 12-10-2021 VIT D 25-OH 91.7 ng/mL Normal [facility] Comment on above: Performed By: #### C MP, HSTROPN #### [facility] [address] [place] [address] Dr. Sahil Turk VIT D RANGES SEE BELOW Normal [facility] Comment on above: Result Comment: <20 ng/mL Vit D deficient 20 - <30 ng/mL Vit D insufficient 30 - 100 ng/mL Vit D sufficient >100 ng/mL Potential Toxicity Performed By: #### C MP, HSTROPN #### [facility] [address] [place] [address] Dr. Sahil Turk US KEVIN DOP LEG [...] by: LINDA REED Date: 2021-11-16 16:33 Normal [facility] FERRITINon 06-13-2021 Ferritin [Mass/Vol] 44 ng/mL Normal 15-150 [facility] Comment on above: Performed By: #### U RTPCR #### [facility] [address] [place] [address] Dr. Sahil Turk PTH INTACTon 06-13-2021 PTH, Intact 53 pg/mL Normal 15-65 [facility] Comment on above: Performed By: #### P THINT #### [facility] [address] [address] [address] Sahil Turk VIT D 25-OH [facility] 2021 Vitamin D, 25-Hydroxy 50.5 ng/mL Normal 30.0-100.[address] [facility] Comment on above: Result Comment: Barbie min D deficiency has been defined by the [employer] of [employer] and an Endocrine Society practice guideline as a level of serum 25-OH vitamin D less than 20 ng/mL (1,2). The Endocrine Society went on to further define vitamin D insufficiency as a level between 21 and 29 ng/mL (2). 1. IOM ([place]). 2010. Dietary reference intakes for calcium and D. [place]: The National Academies Press. 2. Benjamín MF, Vikram GOSS, Kira HERNANDEZ, et al. Evaluation, treatment, and prevention of vitamin D deficiency: an Endocrine Society clinical practice guideline. JCEM. 2010; 96(7):1911-30. Performed By: #### M G, RENAL, URIC #### [facility] [address] [address] [address] Sahil Turk HEMOGRAM AND PLATELon 2021 Hematocrit (Bld) [Volume fraction] 37.7 % Normal 36.0-48.0 [facility] Comment on above: Performed By: #### M G, RENAL, URIC #### [facility] [address] [address] [address] Sahil Turk Hemoglobin (Bld) [Mass/Vol] 12.2 g/dL Normal 12.0-16.[address] [facility] Comment on above: Performed By: #### M G, RENAL, URIC #### [facility] [address] [address] [address] Sahil Turk MCH (RBC) [Entitic mass] 29.9 pg Normal 26.7-34.[address] [facility] Comment on above: Performed By: #### M G, RENAL, URIC #### [facility] [address] [address] [address] Sahil Turk MCHC (RBC) [Mass/Vol] 32.4 g/dL Normal 29.9-35.2 [facility] Comment on above: Performed By: #### M G, RENAL, URIC #### [facility] [address] [address] [address] Sahil Turk MCV (RBC) [Entitic vol] 92.4 fL Normal 81.0-99.0 [facility] Comment on above: Performed By: #### M G, RENAL, URIC #### [facility] [address] [address] [address] Sahil Turk PLT 246 103/ul Normal 150-[address] [facility] Comment on above: Performed By: #### M G, RENAL, URIC #### [facility] [address] [place] [address] Dr. Sahil Turk RBC 4.08 106/ul Critically low 4.20-5.40 [facility] Comment on above: Performed By: #### M G, RENAL, URIC #### [facility] [address] [place] [address] Dr. Sahil Turk WBC 5.7 103/ul Normal 4.0-11.0 [facility] Comment on above: Performed By: #### M G, RENAL, URIC #### [facility] [address] [place] [address] Dr. Sahil Turk IRON AND TIBCon 06-12-2021 % SATURATION 18.3 % Normal [facility] Comment on above: Performed By: #### U RTPCR #### [facility] [address] [place] [address] Dr. Sahil Turk Iron [Mass/Vol] 54.0 ug/dL Normal 37.0-170.0 [facility] Comment on above: Performed By: #### U RTPCR #### [facility] [address] [place] [address] Dr. Sahil Turk TIBC DIRECT 295.0 ug/dL Normal 261.0-497.0 [facility] Comment on above: Performed By: #### U RTPCR #### [facility] [address] [place] [address] Dr. Sahil Turk MAGNESIUMon 06-12-2021 Magnesium [Mass/Vol] 1.9 mg/dL Normal 1.6-2.3 [facility] Comment on above: Performed By: #### R ENAL, URIC, MG #### [facility] [address] [address] [address] Sahil Turk RENAL FUNCTION PANELon 06-12 Albumin [Mass/Vol] 3.7 g/dL Normal 3.5-5.0 [facility] Comment on above: Performed By: #### R ENAL, URIC, MG #### [facility] [address] [place] [address] Dr. Sahil Turk Calcium [Mass/Vol] 9.7 mg/dL Normal 8.4-10.2 [facility] Comment on above: Performed By: #### R ENAL, URIC, MG #### [facility] [address] [place] [address] Dr. Sahil Turk Chloride [Moles/Vol] 103 mmol/L Normal 98-[address] [facility] Comment on above: Performed By: #### R ENAL, URIC, MG #### [facility] [address] [address] [address] Sahil Turk CO2 [Moles/Vol] 32.0 mmol/L Critically high 22.0-30.0 [facility] Comment on above: Performed By: #### R ENAL, URIC, MG #### [facility] [address] [address] [address] Sahil Turk Creatinine [Mass/Vol] 1.42 mg/dL Critically high 0.52-1.04 [facility] Comment on above: Performed By: #### R ENAL, URIC, MG #### [facility] [address] [address] [address] Sahil Turk EGFR-AF [place] 43 mL/min/1.73m2 Critically low >=[address] [facility] Comment on above: Performed By: #### R ENAL, URIC, MG #### [facility] [address] [address] [address] Sahil Turk EGFR-NON AF [place] 36 mL/min/1.73m2 Critically low >=[address] [facility] Comment on above: Performed By: #### R ENAL, URIC, MG #### [facility] [address] [address] [address] aShil Turk Glucose [Mass/Vol] 101 mg/dL Normal 74-106 [facility] Comment on above: Performed By: #### R ENAL, URIC, MG #### [facility] [address] [address] [address] Sahil Turk Phosphate [Mass/Vol] 3.3 mg/dL Normal 2.5-4.[address] [facility] Comment on above: Performed By: #### R ENAL, URIC, MG #### [facility] [address] [place] [address] Dr. Sahil Turk Potassium [Moles/Vol] 4.1 mmol/L Normal 3.4-5.0 [facility] Comment on above: Performed By: #### R ENAL, URIC, MG #### [facility] [address] [place] [address] Dr. Sahil Turk Sodium [Moles/Vol] 142 mmol/L Normal 137-145 [facility] Comment on above: Performed By: #### R ENAL, URIC, MG #### [facility] [address] [place] [address] Dr. Sahil Turk Urea nitrogen [Mass/Vol] 19.0 mg/dL Critically high 7.0-17 .0 [facility] Comment on above: Performed By: #### R ENAL, URIC, MG #### [facility] [address] [place] [address] Dr. Shail Turk UA RANDOM W/MICROSCOPICon BACTERIA LARGE Abnormal NONE SEEN The [facility] Comment on above: Performed By: #### M G, RENAL, URIC #### [facility] [address] [place] [address] Dr. Sahil Turk Bilirubin Ql (U) Negative Normal NEGATIVE [facility] Comment on above: Performed By: #### M G, RENAL, URIC #### [facility] [address] [address] [address] Sahil Turk CAST NONE SEEN Normal NONE SEEN The [facility] Comment on above: Performed By: #### M G, RENAL, URIC #### [facility] [address] [address] [address] Sahil Turk Clarity (U) SL CLOUDY Abnormal CLEAR [facility] Comment on above: Performed By: #### M G, RENAL, URIC #### [facility] [address] [address] [address] Sahil Turk Color (U) LT. YELLOW Normal YELLOW [facility] Comment on above: Performed By: #### M G, RENAL, URIC #### [facility] [address] [address] [address] Sahil Turk Crystals LM Nom (Urine sed) NONE SEEN Normal NONE SEEN The [facility] Comment on above: Performed By: #### M G, RENAL, URIC #### [facility] [address] [address] [address] Sahil Turk Epithelial cells LM Ql (Urine sed) RARE Normal NONE SEEN /RARE The [facility] Comment on above: Performed By: #### M G, RENAL, URIC #### [facility] [address] [address] [address] Sahil Turk Glucose Ql (U) Negative Normal NEGATIVE The [facility] Comment on above: Performed By: #### M G, RENAL, URIC #### [facility] [address] [address] [address] Sahil Turk Hemoglobin Ql (U) Negative Normal NEGATIVE [facility] Comment on above: Performed By: #### M G, RENAL, URIC #### [facility] [address] [address] [address] Sahil Turk Ketones Ql (U) Negative Normal NEGATIVE [facility] Comment on above: Performed By: #### M G, RENAL, URIC #### [facility] [address] [address] [address] Sahil Turk LEUKOCYTES SMALL Abnormal NEGATIVE The [facility] Comment on above: Performed By: #### M G, RENAL, URIC #### [facility] [address] [address] [address] Sahil Turk MUCOUS NONE SEEN Normal NONE SEEN [facility] Comment on above: Performed By: #### M G, RENAL, URIC #### [facility] [address] [place] [address] Dr. Sahil Turk Nitrite Ql (U) Positive Abnormal NEGATIVE [facility] Comment on above: Performed By: #### M G, RENAL, URIC #### [facility] [address] [address] [address] Sahil Turk pH (U) 8.0 [pH] Normal 5-[address] [facility] Comment on above: Performed By: #### M G, RENAL, URIC #### [facility] [address] [place] [address] Dr. Sahil Turk RBC 0-2 Normal 0-[address] [facility] Comment on above: Performed By: #### M G, RENAL, URIC #### [facility] [address] [place] [address] Dr. Sahil Turk SPEC GRAVITY 1.015 Normal 1.005-<=1.0 25 [facility] Comment on above: Performed By: #### M G, RENAL, URIC #### [facility] [address] [place] [address] Dr. Sahil Turk UA PROTEIN Negative Normal NEGATIVE/ TRACE The [facility] Comment on above: Performed By: #### M G, RENAL, URIC #### [facility] [address] [place] [address] Dr. Sahil Turk Urobilinogen Qn (U) 0.2 {Macie'U}/dL Normal 0.2 - 1. [address] [facility] Comment on above: Performed By: #### M G, RENAL, URIC #### [facility] [address] [place] [address] Dr. Sahil Turk WBC 10-20 Abnormal NONE SEEN The [facility] Comment on above: Performed By: #### M G, RENAL, URIC #### [facility] [address] [place] [address] Dr. Sahil Turk URIC ACID SERUMon 06-12-2021 Urate [Mass/Vol] 7.7 mg/dL Critically high 2.5-6.2 [facility] Comment on above: Performed By: #### R ENAL, URIC, MG #### [facility] [address] [address] [address] Sahil Turk URINE T PROTEIN CREAT RATIOo n 06-12-2021 Protein (U) [Mass/Vol] 24.9 mg/dL Critically high <=12.0 [facility] Comment on above: Performed By: #### C MP, HSTROPN #### [facility] [address] [address] [address] Sahil Turk UR PROT CREAT RAT 0.33 Normal [facility] Comment on above: Performed By: #### C MP, HSTROPN #### [facility] [address] [address] [address] Sahil Turk URINE CREAT 76.21 mg/dL Normal 20.00-300.0 0 [facility] Comment on above: Performed By: #### C MP, HSTROPN #### [facility] [address] [address] [address] Sahil Turk Vital Signs Date Time Vital Sign Value Performing Clinician Facility 03-07-2023 10:15-040 Body height 152.4 cm Harpal Hayes Other [facility] Other 03-07-2023 10:15-0400 Body mass index (BMI) [Ratio] 36.83 kg/m2 Harpal Hayes Other [facility] Other 03-07-2023 10:15-0400 Body weight 85.55 kg Harpal Hayes Other [facility] Other 03-07-2023 10:15-0400 Diastolic blood pressure 82 mm[Hg] Harpal Hayes Other [facility] Other 03-07-2023 10:15-0400 SaO2% (BldA) [Mass fraction] 93 % Harpal Hayes Other [facility] Other 03-07-2023 10:15-0400 Systolic blood pressure 140 mm[Hg] Harpal Hayes Other [facility] Other 12-20-2022 11:20-0400 Body height 152.4 cm Yaneth Germania Other [facility] Other 12-20-2022 11:20-0400 Body temperature 96.7 [degF] Yaneth Germania Other [facility] Other 12-20-2022 11:20-0400 Diastolic blood pressure 67 mm[Hg] Yaneth Germania Other [facility] Other 12-20-2022 11:20-0400 Respiratory rate 18 /min Yaneth Germania Other [facility] Other 12-20-2022 11:20-0400 SaO2% (BldA) [Mass fraction] 97 % Yaneth Germania Other [facility] Other 12-20-2022 11:20-0400 Systolic blood pressure 104 mm[Hg] Yaneth Germania Other [facility] Other 06-14-2022 12:40-0500 Body height 152.4 cm Yaneth Germania Other [facility] Other 06-14-2022 12:40-0500 Body mass index (BMI) [Ratio] 35.15 kg/m2 Yaneth Germania Other [facility] Other 06-14-2022 12:40-0500 Body temperature 97.3 [degF] Yaneth Germania Other [facility] Other 06-14-2022 12:40-0500 Body weight 81.65 kg Yaneth Germania Other [facility] Other 06-14-2022 12:40-0500 Diastolic blood pressure 73 mm[Hg] Yaneth Germania Other [facility] Other 06-14-2022 12:40-0500 Respiratory rate 18 /min Yaneth Germania Other [facility] Other 06-14-2022 12:40-0500 SaO2% (BldA) [Mass fraction] 95 % Yaneth Germania Other [facility] Other 06-14-2022 12:40-0500 Systolic blood pressure 115 mm[Hg] Yaneth Germania Other [facility] Other 01-08-2022 03:50-0400 Diastolic blood pressure 80 mm[Hg] [facility] 01-08-2022 03:50-0400 Heart rate 82 /min [facility] 01-08-2022 03:50-0400 Respiratory rate 16 /min [facility] 01-08-2022 03:50-0400 SaO2% (BldA) [Mass fraction] 100 % [facility] 01-08-2022 03:50-0400 Systolic blood pressure 140 mm[Hg] [facility] 06-18-2021 12:00-0500 Body height 152.4 cm Yaneth Germania Other [facility] Other 06-18-2021 12:00-0500 Body temperature 96.3 [degF] Yaneth Germania Other [facility] Other 06-18-2021 12:00-0500 Diastolic blood pressure 74 mm[Hg] Yaneth Germania Other [facility] Other 06-18-2021 12:00-0500 Respiratory rate 18 /min Yaneth Germania Other [facility] Other 06-18-2021 12:00-0500 SaO2% (BldA) [Mass fraction] 96 % Yaneth Germania Other [facility] Other 06-18-2021 12:00-0500 Systolic blood pressure 120 mm[Hg] Yaneth Germania Other [facility] Other Encounters Encounter Date Encounter Type Care Provider Facility Start: 05-24-2023 End: 05-24-2023 ambulatory Harpal Hayes Other [facility] Other Start: 05-24-2023 Telephone [address] [facility] Start: 05-18-2023 End: 05-18-2023 ambulatory Harpal Freddy Other [facility] Other Start: 05-18-2023 Telephone [address]pal [address] [facility] Start: 05-09-2023 End: 05-09-2023 ambulatory Harpal Freddy Other [facility] Other Start: 05-09-2023 Telephone encounter Harpal Freddy [facility] Start: 03-15-2023 End: 03-15-2023 ambulatory Harpal Freddy Other [facility] Other Start: 03-15-2023 Telephone encounter Harpal Freddy [facility] Start: 03-07-2023 End: 03-07-2023 ambulatory Harpal Hayes Other [facility] Other Start: 03-07-2023 Office outpatient vi sit [address] [facility] Start: 03-07-2023 Telephone encounter Harpal [address] [facility] Start: 02-23-2023 End: 02-23-2023 ambulatory Harpal Hayes Other [facility] Other Start: 02-23-2023 [address] [facility] Start: 02-18-2023 End: 02-18-2023 ambulatory Harpal Hayes Other [facility] Other Start: 02-18-2023 Telephone encounter Harpal Hayes [facility] Start: 01-27-2023 End: 01-27-2023 ambulatory Harpal Hayes Other [facility] Other Start: 01-27-[address] [facility] Start: 01-11-2023 End: 01-11-2023 ambulatory Harpal Hayes Other [facility] Other Start: 01-11-2023 Telephone [address] [facility] Start: 12-20-2022 End: 12-20-2022 ambulatory Yaneth Germania Other [facility] Other Start: 12-20-2022 Office outpatient vi sit 25 minutes Yaneth Germania [facility] Start: 12-16-2022 End: 12-17-2022 ambulatory Nadege Abraham Facility:[id number] Start: 12-06-2022 End: 12-07-2022 ambulatory Kimberly [facility] [employer] Other Start: 12-06-2022 Telephone encounter Yaneth Germania [facility] Start: 12-06-2022 End: 12-06-2022 [facility]-Site [facility] Start: 12-03-2022 End: 12-17-2022 ambulatory Og TOLBERT Facility:[facility] Start: 12-03-2022 End: 12-17-2022 Evaluation and management of inpatient Og TOLBERT [facility] Start: 12-02-2022 End: 12-03-2022 Evaluation and management of inpatient Emma SALINAS Facility:[facility] Start: 12-01-2022 End: 12-02-2022 ambulatory Nadege Abraham Facility:[id number] Start: 12-01-2022 End: 12-01-2022 Off-Site [facility] Start: 11-15-2022 End: 11-16-2022 ambulatory Og TOLBERT Facility:[id number] Start: 11-15-2022 End: 11-15-2022 Off-Site [facility] Start: 11-14-2022 End: 12-01-2022 ambulatory Og TOLBERT Facility:[facility] Start: 11-14-2022 End: 12-01-2022 Evaluation and management of inpatient Og TOLBERT [facility] Start: 11-11-2022 End: 11-14-2022 Evaluation and management of inpatient Aba Falcon Facility:[facility] Start: 06-14-2022 End: 06-14-2022 ambulatory Yaneth Germania Other [facility] Other Start: 06-14-2022 Office outpatient vi sit 25 minutes Yaneth Germania [facility] Start: 06-09-[address] HARPAL HAYES [facility] ity:[facility] Start: 05-27-2022 End: 05-27-[address] SULEMAN OLSEN Facility:[facility] Start: 04-26-2022 Gynecological examination normal Harpal Hayes Other [facility] Other Start: 04-23-2022 End: 04-23-2022 ambulatory E[facility] Start: 03-11-2022 End: 03-11-2022 ambulatory CHRISTOPHER ABARCA Facility:[facility] Start: 02-21-2022 End: 02-21-2022 ambulatory ANDRADE LEWIS Facility:[facility] Start: 02-18-2022 End: 02-24-2022 ambulatory UNKNOWN PROVIDER Facility:[facility] Start: 01-08-2022 End: 01-08-2022 ambulatory [facility] Transport Start: 01-08-2022 End: 01-08-2022 Emergency department patient visit [facility] Triage, Treat and Transport Comment on above: Arrived Start: 01-06-2022 End: 01-07-2022 ambulatory MEI DAS Facility:[facility] Start: 12-10-2021 End: 12-11-2021 ambulatory YANETH GERMANIA Facility:[facility] Start: 11-16-2021 End: 11-17-[address] LINDA REED Facility:[facility] Start: 09-28-2021 End: 10-28-[address] HARPAL HAYES Facility:[facility] Start: 08-31-[address] HARPAL HAYES Facil ity:[facility]1 Start: 06-18-2021 End: 06-18-2021 ambulatory Yaneth Germania Other [facility] Other Start: 06-18-2021 Office outpatient vi sit 25 minutes Yaneth Germania [facility] Start: 06-12-2021 End: 06-13-2021 ambulatory YANETH GERMANIA Facility:[facility] Start: 06-09-2017 End: 06-10-2017 Ambulatory DEFAULT PHYSICIAN Facility:[facility] Start: 06-07-2017 End: 06-08-2017 Ambulatory DEFAULT PHYSICIAN Facility:[facility] Start: 06-02-2017 End: 06-03-2017 Ambulatory DEFAULT PHYSICIAN Facility:[facility] Start: 05-10-2017 End: 05-11-2017 Ambulatory DEFAULT PHYSICIAN Facility:[facility] Procedures Date Procedure Procedure Detail [...] COVID-19 Vaccine (#1) COVID-19 Vacci ne (#1) [facility] Immunizations Immunization Date Immunization Notes Care Provider Fa cility NEGATED: Highlighted row has not occurred! 6 pneumococcal polysaccharide vaccine, 23 valent Patient Objection Yaneth Solo Other [facility] Other Payers Date Payer Category Payer Medicare MEDICARE MEDICAR E PART A & B [id number] 2022-Present [address] [place] [address] Medicare [id number] 1960 Medicare [id number] 1944 Unknown [id number] 1944 Unknown [id number] 1944 Unknown [id number] 1944 Unknown [id number] 1944 Unknown [id number] 2.16.840.1.560169.3.579.2.593 1945 Unknown [id number] 2.16.840.1.479904.3.579.2.593 1945 Unknown [id number] 2.16.840.1.668157.3.579.2.593 1944 Unknown [id number] 2.16.840.1.525090.3.579.2.593 1944 Unknown [id number] 2.16.840.1.439417.3.579.2.593 1944 Unknown [id number] 2.16.840.1.328014.3.579.2.593 1944 Unknown [id number] 2.16.840.1.787498.3.579.2.593 1944 Unknown [id number] 2.16.840.1.901329.3.579.2.727 1945 Unknown [id number] 2.16.840.1.105387.3.579.2.727 1945 Unknown [id number] 2.16.840.1.092759.3.579.2.727 1944 Unknown [id number] 2.16.840.1.578942.3.579.2.727 1944 Unknown [id number] 2.16.840.1.664813.3.579.2.727 1944 Unknown [id number] 2.16.840.1.540442.3.579.2.727 1945 Unknown [id number] 2.16.840.1.722933.3.579.2.727 1945 Unknown [id number] 2.16.840.1.295451.3.579.2.727 Unknown Social History Date Type Detail Facility Unknown if ever smoked [employer] Other Sex Assigned At [facility] Tobacco smoking status [facility] Tobacco [facility] Start: 1945 Sex Assigned At Not on file [facility] Tobacco smoking status No Smoking Status Entered [facility] Clinical Notes 06-18-2021 to 03-07-2023 Note Date & Type Note Facility 03-07-2023 Evaluation note Encounter Date Diagnosis Assessment Notes Mar, Lumbosacral spondylosis (ICD-10 - M47.817) [facility] refilled. Requests to increase dose due to [...] symptoms. Any developing patterns. Stay well hydrated. [employer] Other 08-08-2023 Evaluation note* Encounter Date Diagnosis Assessment Notes Treatment Notes Treatment Clinical Notes Jan, Hypertensive chronic kidney disease with stage 1 through stage 4 chronic kidney disease, or unspecified chronic kidney disease (ICD-10 - I12.9) [employer] Other 07-17-2023 Evaluation note* Encounter Date Diagnosis [...] due to the multiple course of antibiotics [employer] Other 07-07-2023 NoteMicrobiology PROCEDURE: Blood Culture Charcoal [...] Locations R1: [facility], [address] [place] [address], [address] [place] [address], [id number] Roach StreetComment on above:Performed By: #### [id number] #### [address] [id number] NoteMicrobiology PROCEDURE: Blood Culture Charcoal [R1] SOURCE: Blood BODY SITE: Arm L COLLECTED DATE/TIME: 12/02/2022 10:28 EDT RECEIVED DATE/TIME: 12/02/2022 11:01 EDT START DATE/TIME: 12/02/2022 11:01 EDT FREE TEXT SOURCE: lt allen Rao PA-C, Bayron Rao PA-C, Bayron FINAL REPORTS Final Report [] Verified Date/Time: 12/09/2022 18:00 EDT No growth at 7 days. Performing Locations R1: This test was performed at: [facility], [address] [place] [address], [address] [place] [address], [id number] Ro[address] StreetComment on above:Performed By: #### [id number] ####[address] [id number] NoteAssessment/Plan 1. UTI (urinary tract infection) (N39.0: Urinary tract infection, site not specified) Failed outpatient Cipro therapy started on 11/29 -11/29: Ecoli UTI -Transition to IV ceftriaxone ? 12/02 - plan to transition to cefdinir at d/c Ordered: Initial Hospital Care/Day High 75 Minutes [id number] 2. Generalized weakness (R53.1: Weakness) Likely 2/2 UTI -Pt. d/c from TCU on 12/01 -CXR: No acute process -PT/OT - SNF -> CRM to arrange 3. Self-care deficit (Z78.9: Other specified health status) Pt. and family are concerned for her options of care [facility] vs. SNF -See above 4. Lactic [...] deep vein thrombosis (DVT) prophylaxis (Z79.899: Other 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 (current) drug therapy) -Heparin sq with early [...] mg = 3 ta (more content not included)...[facility]:Result Comment: Electronically Signed By: Akua VALLE\.br\Date and Time Signed: 12/03/22 08:21 EDT\.br\Electronically Co- Signed By: Akua NICHOLSON\.br\Date and Time Co-Signed: 12/03/22 10:36 EDT\.br\Electronically Co-Signed By: Emma SALINAS MD\.br\Date and Time Co- Signed: 12/03/22 11:45 [id number] NotePT Evaluation done this date. Pt. with 04/29 on AM-PAC this date. She is very weak and requires modAx1 with all activity. She is a fall risk and would likely benefit from SNF.[facility]06-29-[facility] NoteAssessment/Plan 1. UTI (urinary tract infection) [...] deep vein thrombosis (DVT) prophylaxis (Z79.899: Other 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 (current) drug therapy) -Heparin sq with early [...] mg = 3 tab(s) (more content not included)...[facility] HospitalComment on above:Result Comment: Electronically Signed By: Akua VALLE\.br\Date and Time Signed: 12/02/22 13:59 EDT\.br\Electronically Co- Signed By: Akua NICHOLSON\.br\Date and Time Co-Signed: 12/02/22 14:00 EDT\.br\Electronically Co-Signed By: BRAD BRIGGS, Emma\.br\Date and Time Co- Signed: 12/02/22 14:02 [id number] NoteAdmission and Discharge Information Admit Date/Time:11/11/2022 05:39 [...] fall. Patient was treated for UTI at [facility] and given Bactrim. Her GFR is [...] over 40. 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 Services Consulted Consult to General Surgery - [...] 64.1 % Lymph Auto - 22.4 % Briscoe Auto - 11.5 % Eos Auto - 1.4 % Basophil Auto - 0.6 % Neutro Absolute - 4.5 E9/L Lymph Absolute - 1.6 E9/L Briscoe Absolute - 0.8 E9/L Eos Absolute - [...] - 144 mg/dL POC Device SN - [id number] POC User ID - [id number] POC Username - GEOFF FERRARI CBC w/ [...] Globulin - 3.1 gm (more content not included)...[facility] Comment on above:Result Comment: Electronically Signed By: Jeff SUTTON MD\.br\Date and Time Signed: 11/14/22 08:00 [id number] NoteCRM entered the room to discuss dc planning. PCP, DME and insurance discussed. Patient is alert andinvolved in plan of care. Contact information provided and whiteboard updated. Pt is agreeable to SNF, CRM first discussed TCU with pt, she wants a private room. TCU now saying they only have [facility] room, that is private at this time. CRM told TCU when a bed becomes available she would like a room there. CRM will call Johann to notify. Pt's 3MN will be up 11/14. Room 57. CRM to follow. Update pt will now have private room in TCU, room 609.[facility] HospitalComment on above:Result Comment: Electronically Signed By: Kaylie Díaz\.br\Date and Time Signed: 11/12/22 11:47 [id number] NotePT Evaluation done this date. Pt. with 04/29 on AM-PAC this date. Unable to attempt getting up due to bed height and pt. being very short and weak causing safety issues. She needs mod Ax2 with bed mobility. Recommend SNF.[facility]06-08-2023 NoteChief Complaint Pt has fallen multiple [...] [facility] grievance coordinator sees her in the outpatient setting in [place]. He advised her that I might of [...] on 06 November she had presented to [place] emergency department with weakness that had existed for the previous week. She did have a UA that was negative for nitrates and small leukocyte esterase but 20-50 WBCs. She was empirically placed on Bactrim which she was taking until the date of presentation. She denies any dysuria or urgency patient does have an elevated creatinine as it compares to labs available from her [place] emergency department she denies any nonsteroidal anti-inflammatory [...] distal aspect of he (more content not included)...[facility] HospitalComment on above:Result Comment: Electronically Signed By: Tyson COLEMAN DO\Date and Time Signed: 11/11/22 05:44 [id number] Evaluation note* Encounter Date Diagnosis Assessment Notes [...] has a low magnesium. 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 BI LATERAL Medical History UTI 05/27/22 [facility] E R Surgical History Procedure:Colostomy;Disease: no t [...] NERVE BLOCK 04/09/2022 Hospitalization History see above [employer] Other 12-22-2022 History general Narrative - Reported* Type Description Date Medical History DM Medical History Fibromyalgia Medical History Arthritis Medical History HIP PAIN BILATERAL Medical History NERVE 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 BI LATERAL Medical History UTI 05/27/22 [facility] E R Medical History UTI 11/06/2022 GIVEN BACTRIM Medical History UTI 11/10/2022 [place]AKEN [place] [facility] Surgical History Procedure:Colostomy;Disease: no t current Surgical [...] History UTI 11/06/2022 Hospitalization History UTI AT [facility] AND THEN [facility] 11/12/2022 [employer] [facility] [...] should problems arise Pedro Palomares MD, MPH, [facility], [facility], [facility] Interventional Cardiology Pager Email: [email or web address]2022 [facility] History of Present illness Narrative* Madai Webb MD - 02/18/2022 8:44 PM EDT Images from the original note were not included. EMERGENCY TRIAGE, TREAT AND TRANSPORT (ET3) DOCUMENTATION OF TELEHEALTH VISIT Date / Time: 01/08/2022 / 0345am Name: Suhas Patterson : 1945 SSN: [id number] EMS Agency: [facility] [x] Verbal consent obtained [] Implied [...] by: Madai Webb MD documented in this [id number] NotePROCEDURE: XR ANKLE RT MIN 3 VIEWS, [...] Electronically authenticated by: LINDA REED Date: 2021-11-16 16:37[facility]06-13-2022 NotePROCEDURE: XR ANKLE RT MIN 3 VIEWS, [...] Electronically authenticated by: LINDA REED Date: 2021-11-16 16:37[facility]01-13-2022 Evaluation note* Encounter Date Diagnosis Assessment Notes [...] within the goal. Continue [place] D 82227 units 3/week Jun, Gout (ICD-10 - M10.9) [...] UTI so I have prescribed oral antibiotic. [employer] Other Evaluation + Plan note No data available for this section [employer] Evaluation note* Diagnosis Fall, initial encounter- Primary documented in this encounter [facility] note[facility] InformationNort [facility] Other History general Narrative - Reported* Type [...] History perforated bowel Hospitalization History see above [employer] Other Hospital Discharge instructions No data available [...] and content) DATE CREATED AUTHOR 11/29/2017 [facility] DATE CREATED AUTHOR AUTHOR'S ORGANIZ ATION 03/06/2022 [facility] DATE CREATED AUTHOR AUTHOR'S ORGANIZ ATION 04/25/2022 [facility] DATE CREATED AUTHOR AUTHOR'S ORGANIZ ATION 06/08/2022 [facility] DATE CREATED AUTHOR AUTHOR'S ORGANIZ ATION 12/22/2022 [facility] REASON FOR VISIT (unrecogniz ed section and content) refill Reason Comments Fall Controlled mechanica l fall, lowered while onto bed. Patient Care team informatio n (unrecognized section and content) Personnel Name: HARPAL HAYES MD Address: Address: [address] [place] [address] Name: Natalie Lowe LPN Personnel Name: HARPAL HAYES MD Address: Address: [address] [place] [address] Name: Natalie Lowe LPN Personnel Name: HARPAL HAYES MD Address: Address: [address] [place] [address] Name: Natalie Lowe LPN Personnel Name: HARPAL HAYES MD Address: Address: [address] [place] [address] Name: Natalie Lowe LPN Personnel Name: HARPAL HAYES MD Address: Address: [address] [place] [address] Name: Natalie Lowe LPN FOR RECORDS PERTAINING [...] BE BASED ON THE PRIMARY CLINICAL RECORDS. [facility] [employer] [facility]. provides no warranty or guarantee of the accuracy or completeness of information in this document.
[2023-06-10 17:40] LABS: Creatinine Urine Random 31.21 mg/dL (20.00-300.00); Protein Creatinine Ratio Urine 0.29; Total Protein Urine Random 9.1 mg/dL (<=11.9)
== END 2023-06-10 16:45 | disposition home or self-care (01) ==
LOC: LAB 16:44
PROVIDERS: PCP Family Medicine; Visit Provider Internal Medicine
DX: I12.9 Hypertensive chronic kidney disease with stage 1 through stage 4 chronic kidney disease, or unspecified chronic kidney disease (principal); N18.30 Chronic kidney disease, stage 3 unspecified; E11.22 Type 2 diabetes mellitus with diabetic chronic kidney disease; N25.81 Secondary hyperparathyroidism of renal origin; M10.9 Gout, unspecified; D63.1 Anemia in chronic kidney disease; E83.42 Hypomagnesemia; N39.0 Urinary tract infection, site not specified
CPT/HCPCS: 82570; 84156

== ENCOUNTER 2023-12-13 10:56 | Outpatient (OUT) | payer MEDICARE, SELFPAY ==
[2023-12-13 11:28] LABS: Hematocrit 36.2 % (36.0-48.0); Hemoglobin 11.5 g/dL (12.0-16.0); Mean Corpuscular HGB Conc 31.8 g/dL (29.9-35.2); Mean Corpuscular Hemoglobin 29.6 pg (26.7-34.0); Mean Corpuscular Volume 93.1 fL (81.0-99.0); Mean Platelet Volume 8.7 fL (9.5-13.5); Platelet Count 293 10^3/uL (150-450); Red Blood Count 3.89 10^6/uL (4.20-5.40); Red Cell Distribution Width 13.9 % (11.0-15.0); White Blood Count 6.2 10^3/uL (4.0-11.0)
[2023-12-13 12:15] LABS: Percent Iron Saturation 11.3 %
[2023-12-13 12:29] LABS: Albumin Level 3.3 g/dL (3.4-5.0); Anion Gap 11.1; BUN Creatinine Ratio 13.2; Calcium 9.4 mg/dL (8.5-10.1); Chloride 102 mmol/L (98-107); Estimated GFR (African America 36 (>=60); Estimated GFR (Non-African Ame 30 (>=60); Glucose 118 mg/dL (74-106); Magnesium 1.8 mg/dL (1.8-2.4); Phosphorus 3.5 mg/dL (2.6-4.7); Potassium 4.1 mmol/L (3.5-5.1); Sodium 140 mmol/L (136-145); Uric Acid 7.5 mg/dL (2.6-6.0)
[2023-12-13 13:00] LABS: Bilirubin Urine NEGATIVE (NEGATIVE); Blood Urine NEGATIVE (NEGATIVE); Clarity Urine CLEAR (CLEAR); Color Urine LT. YELLOW (YELLOW); Glucose Urine UA NEGATIVE (NEGATIVE); Ketones Urine NEGATIVE (NEGATIVE); Leukocyte Esterase Urine TRACE (NEGATIVE); Nitrite Urine NEGATIVE (NEGATIVE); Protein Urine NEGATIVE (NEG/TRACE); Urobilinogen Urine 0.2 EU/dL (0.2-1.0); pH Urine 6.5 (5.0-9.0)
[2023-12-13 13:01] LABS: Creatinine Urine Random 27.29 mg/dL (20.00-300.00); Protein Creatinine Ratio Urine 0.36; Total Protein Urine Random 9.8 mg/dL (<=11.9)
[2023-12-13 13:24] LABS: Bacteria Urine SMALL #/HPF (NONE SEEN); Crystals Seen? None Seen #/HPF (None Seen); Mucus Urine NONE SEEN (NONE SEEN); RBC Urine 0-2 #/HPF (0-2); Squamous Epithelial Cell Urine FEW #/LPF (NONE/RARE)
[2023-12-13 13:25] LABS: Cast Seen? NONE SEEN #/LPF (NONE SEEN)
[2023-12-14 12:13] LABS: PTH, Intact 39 pg/mL (15-65)
== END 2023-12-13 10:57 | disposition home or self-care (01) ==
LOC: LAB 10:56
PROVIDERS: PCP Family Medicine; Visit Provider Internal Medicine
DX: I12.9 Hypertensive chronic kidney disease with stage 1 through stage 4 chronic kidney disease, or unspecified chronic kidney disease (principal); N18.30 Chronic kidney disease, stage 3 unspecified; E11.22 Type 2 diabetes mellitus with diabetic chronic kidney disease; N25.81 Secondary hyperparathyroidism of renal origin; M10.9 Gout, unspecified; D63.1 Anemia in chronic kidney disease; E83.42 Hypomagnesemia
CPT/HCPCS: 36415; 80069; 81001; 82306; 82570; 82728; 83540; 83550; 83735; 83970; 84156; 84550; 85027

== ENCOUNTER 2024-01-16 15:04 | Outpatient (REF) | payer MEDICARE, SELFPAY ==
[2024-01-16 15:17] LABS: Bilirubin Urine NEGATIVE (NEGATIVE); Blood Urine NEGATIVE (NEGATIVE); Clarity Urine CLEAR (CLEAR); Color Urine LT. YELLOW (YELLOW); Glucose Urine UA NEGATIVE (NEGATIVE); Ketones Urine NEGATIVE (NEGATIVE); Leukocyte Esterase Urine TRACE (NEGATIVE); Nitrite Urine NEGATIVE (NEGATIVE); Protein Urine NEGATIVE (NEG/TRACE); Specific Gravity Urine 1.015 (1.005-1.025); Urine Microscopic Indicated YES; Urobilinogen Urine 0.2 EU/dL (0.2-1.0); pH Urine 6.5 (5.0-9.0)
--- OUTSIDE RECORDS SUMMARY | 2024-01-16 15:21 | XMS_ITS | CCD ---
Author Organization [facility] Care Team Providers Care Unit Manager Rn Name Role Phone PHYSICIAN, DEFAULT Unavailable Unavailable PHYSICIAN, DEFAULT Unavailable Unavailable DIO ZAFAR Unavailable Unavailable PHYSICIAN, DEFAULT Unavailable Unavailable PHYSICIAN, DEFAULT Unavailable Unavailable ANDRADE, DIO Torres Unavailable Unavailable PHYSICIAN, DEFAULT Unavailable Unavailable PHYSICIAN, DEFAULT Unavailable Unavailable DIO ZAFAR Unavailable Unavailable PHYSICIAN, DEFAULT Unavailable Unavailable PHYSICIAN, DEFAULT Unavailable Unavailable DIO ZAFAR S Unavailable Unavailable GermaniaYaneth Unavailable Unavailable Primary Care Provider Unavailabl e PROVIDER, UNKNOWN Attending Unavailable PROVIDER, UNKNOWN Admitting Unavailable FREDDY, DR HARPAL Rodriguez Primary Care Unavailable MEI DAS Attending Unavailable MEI DAS Admitting Unavailable HAYES, DR HARPAL Rodriguez Primary Care Unavailable GERMANIA, YANETH Attending Unavailable GERMANIA, YANETH Admitting Unavailable FREDDY, DR HARPAL Rodriguez Primary [...] Rodriguez Consulting Unavailable GERMANIA, YANETH Consulting Unavailable FREDDY, DR HARPAL Rodriguez Primary Care Unavailable GERMANIA, YANETH Attending Unavailable GERMANIA, YANETH Admitting Unavailable PIPPA, MEI Consulting Unavailable PIPPAROGERIOMEI Attending Unavailable PIPPA MEI Admitting Unavailable DR HARPAL HAYES Primary Care Unavailable GERMANIA, YNAETH Consulting Unavailable PAVART VIGIL Primary Care Unavailable GERMANIA, YANETH Attending Unavailable GERMANIA, YANETH Admitting Unavailable HARPAL HAYES Primary Care Physician Natalie Lowe Unavailable Unavailable Harpal Hayes Unavailable LINDA ROUSE Attending Unavailable LINDA ROUSE Referring Unavailable Kimberly VILLAREAL Attending UnavailOg Chiang Attending Unavailable TOMASZ, Og Attending Unavailable Hector Meier Attending Unavailable Christie Zayas Admitting Unavailable OJUBRENDANU, Emma Attending Unavailable ODHIRAJ, Emma Admitting Unavailable Hospitalist Post Disch, Results Reviewer Consult ing Unavailable MD Aba Falcon Consulting Unavailable Tyson COLEMAN Admitting Unavailable Jeff SUTTON Attending Unavailable Aba Falcon Consulting Unavailable Aba Falcon Consulting Unavailable Nadege Abraham Attending Unavailable Og TOLBERT Admitting Unavailable Nadege Abraham Attending Unavailable TOMASZ, Og Attending Unavailable JOSH AUSTIN Attending Unavailable JOSH AUSTIN Attending Unavailable ZACH SILVA Attending Unavailable HARPAL HAYES Referring Unavailable HARPAL HAYES Primary Care Unavailable Allergies Allergy Classification Reported Allergen(s) Allergy Type Date of Onset Reaction(s) Facility (20 sources) butorphanol; Translations: [Stadol] Drug Allergy 2 ANXIOUS [facility] Repository (14 sources) PT DENIES ANY METAL ALLERGY Propensity to adverse reactions Unknown [email or web address] Other (8 sources) Butorphanol; Translations: [butorphanol] Drug Allergy 4 [facility] (10 sources) Stadol *ANALGESICS - OPIOID* Propensity to adverse reactions Unknown [email or web address] Other (2 sources) Allergies Reconciled Propensity to adverse reactions Unknown [email or web address] Other (1 source) Butorphanol; Translations: [BUTORPHANOL TARTRATE] Drug Allergy 4 [facility] Repository Medications Current Medications Medication Drug Class(es) Dates Sig (Normalized) Sig (Original) acetaminophen 500 mg oral capsule (20 sources) Start: 08-04-2023 take 1000 mg by mouth every six hours Acetaminophen Active 1000 MG PO Every 6 hours August 04, 2023 1:00am Start: 12-08-2022 take 2 tablets by mo uth every six hours Tylenol Extra Strength 500 [...] as needed Orally every 8 hrs Active amoxicillin 500 mg oral tablet (11 sources) Penicillin-class Antibacterial Start: 12-20-2022 take 1 tablet by mouth every eight hours Amoxicillin 500 MG 1 tablet Orally every 8 hrs for 7 days Dec, Active aspirin 81 mg delayed release oral tablet (20 sources) Platelet Aggregation Inhibitor, Nonsteroidal Anti-inflammatory Drug Start: 09-22-2018 take 1 tablet by mouth once daily Aspirin (Aspir-81) 81 mg Tablet,Delayed Release (Dr/Ec) Active 81 MG PO Daily September 22, 2018 12:00am atorvastatin 10 mg oral tablet (20 sources) HMG-CoA Reductase Inhibitor Start: 09-22-2018 take 10 mg by mouth once daily Atorvastatin Active 10 MG PO Daily September 22, 2018 12:00am azithromycin 250 mg oral tablet (2 sources) Macrolide Antimicrobial Start: 08-03-2023 take 1 tablet by mouth once daily azithromycin 250 mg Tab 250 mg = 1 tab(s), Oral, Daily, # 2 tab(s), Refills(s) 0, Pharmacy: [id number], 149.9, cm, 07/30/23 20:35:00 EST, Height/Length Dosing, 88.9, kg, 07/30/23 20:35:00 EST, Weight Dosing Start Date: 08/03/23 Status: Ordered Start: 06-02-2023 Azithromycin 2 50 MG as directed Orally 2 tabs po today, then 1 tab daily x 4 more days for 5 May, Active carvedilol 6.25 mg oral tablet (20 sources) alpha-Adrenergic Prasad, beta-Adrenergic Prasad Start: 09-06-2023 End: 12-20-2023 take 3.125 mg by mouth once daily at bedtime Carvedilol Active 3.125 MG PO Daily December 20, 2023 11:24am at HS Start: 09-22-2018 End: 09-06-2023 take 6.25 mg by mouth twice daily Carvedilol Discontinued 6.25 MG PO Twice daily September 22, 2018 12:00am September 06, 2023 10:49am cefdinir 300 mg oral capsule (1 source) Cephalosporin Antibacterial Start: 12-03-2022 End: 12-07-2022 take 1 capsule by mouth every twelve hours cefdinir 300 mg Cap 300 mg = 1 cap(s), Oral, q12hr, X 4 day(s), # 8 cap(s), Refills(s) 0, Pharmacy: [facility], 152, cm, 12/02/22 9:48:00 EDT, Height/Length Dosing, 87.8, kg, 12/02/22 9:48:00 EDT, Weight Dosing Start Date: 12/03/22 Stop Date: 12/07/22 Status: Ordered cefuroxime 500 mg oral tablet (2 sources) Cephalosporin Antibacterial Start: 08-03-2023 take 1 tablet by mouth twice daily cefuroxime 500 mg oral tablet 500 mg = 1 tab(s), Oral, BID, # 4 tab(s), Refills(s) 0, Pharmacy: [facility], 149.9, cm, 07/30/23 20:35:00 EST, Height/Length Dosing, 88.9, kg, 07/30/23 20:35:00 EST, Weight Dosing Start Date: 08/03/23 Status: Ordered Start: 06-18-2021 take 1 tablet by sara th every twelve hours Cefuroxime Axetil 250 MG 1 tablet Orally every 12 hrs for 5 day(s) Jun, Active cetirizine hydrochloride 10 mg oral tablet (20 sources) Histamine-1 Receptor Antagonist Start: 11-11-2022 take 1 tablet by mouth once daily Cetirizine (Zyrtec) 10 mg tablet Active 10 MG PO Daily August 04, 2023 1:00am cholecalciferol 0.125 mg oral capsule (20 sources) Vitamin D Start: 08-05-2023 End: 12-20-2023 take 5000 [IU] by mouth once daily Cholecalciferol (Vitamin D3) Active 5000 UNIT PO Daily December 20, 2023 11:24am 3xweek Tue, Tue, Tue Start: 08-04-2023 End: 08-05-2023 take 125 ug by mouth once daily Cholecalciferol (Vitamin D3) Discontinued 125 MCG PO Daily August 04, 2023 1:00am August 05, 2023 2:42pm Start: 11-11-2022 cholecalcifero l 10,000 intl units oral capsule 250 mcg = 1 cap(s), Oral, MonWedFri, Refills(s) 0 Start Date: 11/11/22 Status: Ordered Start: 11-11-2022 cholecalcifero l 10,000 intl units oral capsule 250 mcg = 1 cap(s), Oral, MonWedFri, Refills(s) 0 Start Date: 11/11/22 Status: Ordered Vitamin D3 125 M CG (5000 UT) 1 capsule Orally TUE, TUE, TUE Active take 1 tablet by sara th three times weekly Vitamin D3 Maximum Strength 125 MCG (5000 UT) 1 tab(s) Orally THREE TIMES A WEEK Active Vitamin D3 250 M CG (66723 UT) 1 capsule Orally TUE, TUE, TUE Active ciprofloxacin 500 mg oral tablet (2 sources) Quinolone Antimicrobial Start: 12-01-2022 take 1 tablet by mouth every twelve hours ciprofloxacin 500 mg Tab 500 mg = 1 tab(s), Oral, q12hr, # 10 tab(s), Refills(s) 0, Pharmacy: [id number], 152, cm, 11/10/22 21:21:00 EDT, Height/Length Dosing, 83, kg, 11/10/22 21:21:00 EDT, Weight Dosing Start Date: 12/01/22 Status: Ordered D-Mannose (2 sources) Start: 08-04-2023 take 1 mg by mouth once D-Mannose Active MG PO August 04, 2023 1:00am d-mannose 500 mg capsule (3 sources) take 2 capsules by mouth every twelve hours D-Mannose 500 MG 2 CAPSULES Orally TWICE A DAY Active docusate calcium 240 mg oral capsule (20 sources) Start: 08-04-2023 take 240 mg by mouth once daily Docusate Calcium Active 240 MG PO Daily August 04, 2023 1:00am Start: 07-31-2023 take 1 capsule by [facility] twice daily as needed for constipation Colace 100 mg Cap 100 mg = 1 cap(s), Oral, BID, PRN for constipation, # 20 cap(s), Refills(s) 0 Start Date: 07/31/23 Status: Ordered take 1 capsule by [facility] four times weekly as needed Stool Softener 240 MG 1 capsule as needed Orally four times a week as needed for 30 days Active ferrous sulfate 325 mg delayed release oral tablet (20 sources) Start: 08-04-2023 take 325 mg by mouth three times weekly Ferrous Sulfate Active 325 MG PO 3 Times a week August 04, 2023 1:00am Start: 11-11-2022 ferrous sulfat e 325 mg Tab 325 mg = 1 tab(s), Oral, MonWedFri, # 270 tab(s), Refills(s) 0 Start Date: 11/11/22 Status: Ordered take 1 tablet by [facility] three times weekly Ferrous Sulfate 325 (65 Fe) MG 1 tablet Orally three times a week Active take 1 tablet by sara three times weekly Ferrous Sulfate 325 (65 Fe) MG 1 tablet Orally three times a week Active Insulin Lispro (2 sources) Insulin Analog Start: 12-03-2022 insulin lispro 0-10 Units, SubCutaneous, QIDACHS, Refills(s) 0 Start Date: 12/03/22 Status: Ordered levothyroxine sodium 0.05 mg oral tablet (20 sources) l-Thyroxine Start: 11-13-2022 take 1 tablet by mouth once daily levothyroxine 50 mcg (0.05 mg) Tab 50 mcg = 1 tab(s), Oral, Daily, Refills(s) 0 Start Date: 11/13/22 Status: Ordered Start: 09-22-2018 take 50 ug by mouth once daily Levothyroxine Active 50 MCG PO Daily September 22, 2018 12:00am Magnesium (18 sources) take 1 tablet by sara once daily Magnesium 400 MG 1 Tablet Orally Once a day Active Magnesium 400 MG as directed Orally four times a week Active magnesium oxide 400 mg oral capsule (7 sources) Start: 08-05-2023 take 400 mg by mouth once daily Magnesium Oxide Active 400 MG PO Daily August 05, 2023 2:41pm Start: 08-04-2023 End: 08-05-2023 take 400 mg by mouth four times weekly Magnesium Oxide Discontinued 400 MG PO .COMPLEX August 04, 2023 1:00am August 05, 2023 2:42pm four times a week Start: 07-31-2023 take 1 capsule by [facility] once daily magnesium oxide 400 mg oral capsule 400 mg = 1 cap(s), Oral, Daily, Refills(s) 0 Start Date: 07/31/23 Status: Ordered Start: 07-31-2023 End: 08-10-2023 take 1 tablet by mouth once daily magnesium oxide 250 mg oral tablet 250 mg = 1 tab(s), Oral, Daily, X 10 day(s), # 20 tab(s), Refills(s) 0 Start Date: 07/31/23 Stop Date: 08/10/23 Status: Ordered Start: 11-11-2022 End: 11-18-2022 magnesium oxide 400 mg Tab 4 00 mg = 1 tab(s), Oral, TueThSaSu, Refills(s) 0 Start Date: 11/11/22 Stop Date: 11/18/22 Status: Ordered metFORMIN hydrochloride 500 mg oral tablet (20 sources) Biguanide Start: 01-30-2016 take 500 mg by mouth twice daily Metformin Active 500 MG PO Twice daily September 22, 2018 12:00am nitroglycerin 0.4 mg sublingual tablet (6 sources) Nitrate Vasodilator Start: 11-11-2022 nitroglycerin 0.4 mg sublingual Tab 0.4 mg = 1 tab(s), SubLingual, q5min, PRN for chest pain, # 100 tab(s), Refills(s) 0 Start Date: 11/11/22 Status: Ordered nystatin 100 unt/mg topical powder (19 sources) Polyene Antifungal Start: 11-11-2022 Nystatin Ac tive 1 APPLIC TOPICAL Twice daily August 04, 2023 1:00am Nystatin 188596 UNIT/GM 1 application Externally Twice a day for 10 days Active polyethylene glycol 3350 47041 mg powder for oral solution (11 sources) Osmotic Laxative Start: 11-13-2022 Polyethylene Glycol 3350 (Miralax) 17 gram/dose powder Active 17 GM PO Daily August 04, 2023 1:00am MiraLax 17 GM/SC OOP 1 scoop mixed with 8 ounces of fluid Orally Once a day Active rOPINIRole 2 mg oral tablet (20 sources) Nonergot Dopamine Agonist Start: 11-11-2023 End: 12-09-2023 take 1 tablet by mouth once daily at bedtime Ropinirole Active 0 .ROUTE .COMPLEX December 09, 2023 3:53pm TAKE ONE TABLET BY MOUTH ONCE DAILY 1 TO 3 HOURS BEFORE BEDTIME Start: 09-06-2023 End: 11-11-2023 take 2 mg by mouth once daily at bedtime Ropinirole Discontinued 2 MG PO Daily at bedtime October 05, 2023 8:34am November 11, 2023 12:15pm administer 1-3 hours before bedtime Start: 08-05-2023 End: 09-06-2023 take 3 mg by mouth once daily Ropinirole Discontinued 3 MG PO Daily August 05, 2023 1:00am September 06, 2023 11:31am Start: 09-22-2018 End: 08-05-2023 take 4 mg by mouth once daily Ropinirole Discontinued 4 MG PO Daily September 22, 2018 12:00am August 05, 2023 2:59pm traZODone hydrochloride 100 mg oral tablet (20 sources) Serotonin Reuptake Inhibitor Start: 09-06-2023 take 100 mg by mouth once daily at bedtime Trazodone Active 100 MG PO Daily at bedtime September 06, 2023 12:00am Start: 08-05-2023 End: 09-06-2023 take 100 mg by mouth once daily at bedtime Trazodone Discontinued 100 MG PO Daily at bedtime August 05, 2023 2:52pm September 06, 2023 11:31am Start: 08-04-2023 End: 08-05-2023 take 1 tablet by mouth once daily at bedtime as needed for sleep Trazodone Discontinued 0 .ROUTE .COMPLEX August 04, 2023 3:23pm August 05, 2023 3:00pm TAKE ONE TABLET BY MOUTH ONCE DAILY AT BEDTIME NEEDED FOR SLEEP Start: 11-11-2022 End: 08-04-2023 take 150 mg by mouth once daily at bedtime Trazodone Discontinued 150 MG PO Daily at bedtime August 04, 2023 1:00am August 04, 2023 3:23pm Start: 09-22-2018 End: 08-04-2023 take 50 mg by mouth at bedtime Trazodone Discontinued 50 MG PO Bedtime September 22, 2018 12:00am August 04, 2023 9:27am Vitamin C 1000 MG (1 source) take 1 tablet by sara th once daily Vitamin C 1000 MG 1 tablet Orally Once a day Active Vitamin D3 250 MCG (68728 UT) (9 sources) Vitamin D3 250 M CG (88826 UT) 1 capsule Orally TUE, TUE, TUE Active Vitamin D3 Maximum Strength 125 MCG (5000 UT) (4 sources) take 1 tablet by sara th three times weekly Vitamin D3 Maximum Strength 125 MCG (5000 UT) 1 tab(s) Orally THREE TIMES A WEEK Active take 2 tablets by mo [facility] three times weekly Vitamin D3 Maximum Strength 125 MCG (500 0 UT) 2 TABLETS Orally THREE TIMES A WEEK Active Completed/Discontinued Medications Medication Drug Class(es) Dates Sig (Normalized) Sig (Original) acetaminophen 325 mg / HYDROcodone bitartrate 5 mg oral tablet (20 sources) Opioid Agonist Start: 09-06-2023 End: 12-02-2023 take 1 tablet by mouth once daily Hydrocodone-Acetami nophen Discontinued 1 TAB PO Daily November 03, 2023 December 02, 2023 9:21am Start: 08-02-2023 End: 09-06-2023 take 1 tablet by mouth every eight hours Hydrocodone-Acetaminophen Discontinued 1 TAB PO Every 8 hours August 03, 2023 September 06, 2023 11:32am Start: 06-29-2023 take 1 tablet by sara th every eight hours as needed HYDROcodone-Acetaminophen 5-325 MG 1 tab let as needed Orally q8h prn for 30 days Jun, Active Start: 06-29-2023 take 1 tablet by sara th every eight hours as needed HYDROcodone-Acetaminophen 5-325 MG 1 tab let as needed Orally q8h prn for 30 days Jun, Active Start: 05-09-2023 take 1 tablet by sara th every eight hours as needed HYDROcodone-Acetaminophen 5-325 MG 1 tab let as needed Orally q8h prn for 30 [...] 12-06-2022 take 1 tablet by sara th twice daily as needed for pain [place] 325 mg-5 mg oral tablet 1 tab(s), Oral, BID as needed for pain, Refill(s) 0 Start Date: 12/06/22 Status: Ordered Start: 12-06-2022 take 1 tablet by sara th every eight hours as needed for pain [place] 325 mg-5 mg oral tablet 1 tab(s), Oral, q8hr as needed for pain, Refill(s) 0 Start Date: 12/06/22 Status: Ordered Start: 11-13-2022 [place] 325 mg-5 mg oral tablet 1 tab(s), Oral, q6hr for pain, 15 tab(s), Refill(s) 0 Start Date: 11/13/22 Status: Ordered acetaminophen 325 mg / oxyCODONE hydrochloride 7.5 mg oral tablet (4 sources) Opioid Agonist Start: 10-20-2018 End: 08-02-2023 take 1 tablet by mouth three times daily Oxycodone-Acetaminophen Discontinued 1 TAB PO Three times daily October 20, 2018 12:00am August 02, 2023 3:33pm Start: 09-22-2018 End: 10-20-2018 take 1 tablet by mouth twice daily Oxycodone-Acetaminophen Discontinued 1 T AB PO Twice daily September 22, 2018 12:00am October 20, 2018 10:53am Dexamethasone (17 sources) Corticosteroid Start: 09-17-2015 DEXAMETHASONE Sep, 2 mL doxycycline hyclate 100 mg oral tablet (2 sources) Tetracycline-class Drug Start: 12-12-2023 End: 12-20-2023 take 100 mg by mouth once daily Doxycycline Hyclate Discontinued 100 MG PO Daily December 12, 2023 12:00am December 20, 2023 11:27am furosemide 40 mg oral tablet (20 sources) Loop Diuretic Start: 11-11-2022 End: 08-17-2023 take 40 mg by mouth once daily Furosemide Discontinued 40 MG PO Daily 90 90 August 17, 2023 1:29pm August 17, 2023 2:36pm Start: 09-22-2018 End: 08-04-2023 take 20 mg by mouth twice daily Furosemide Discontinued 20 MG PO Twice daily September 22, 2018 12:00am August 04, 2023 9:22am methylPREDNISolone (17 sources) Corticosteroid Start: 02-02-2018 Depo-Medrol 40 mg Jan, 1 mL 24 hr mirabegron 50 mg extended release oral tablet (8 sources) beta3-Adrenergic Agonist Start: 07-31-2023 End: 09-21-2023 take 1 tablet by mouth once daily Mirabegron (Myrbetriq) 50 mg tablet extended release 24 hr Discontinued 50 MG PO Daily August 04, 2023 1:00am September 21, 2023 10:00pm take 1 tablet by sara th every twenty-four hours Myrbetriq 50 MG 1 tablet Orally Once a day Active potassium chloride 10 meq oral tablet (20 sources) Start: 11-11-2022 take 1 tablet by mouth twice daily Potassium Chloride (Eqv-K-Tab) 10 mEq oral tablet, extended release 10 mEq = 1 tab(s), Oral, BID, Refills(s) 0 Start Date: 11/11/22 Status: Ordered Start: 09-22-2018 take 1 tablet by sara th twice daily Potassium Chloride Active 1 TAB PO Twice daily September 22, 2018 12:00am pregabalin 75 mg oral capsule (20 sources) Start: 09-06-2023 End: 12-09-2023 take 75 mg by mouth twice daily Pregabalin Discontinued 75 MG PO Twice daily 60 30 November 03, 2023 8:52am December 09, 2023 3:53pm Start: 08-05-2023 End: 09-06-2023 take 150 mg by mouth once daily Pregabalin Discontinue d 150 MG PO Daily August 05, 2023 2:54pm September 06, 2023 11:30am Start: 08-04-2023 End: 08-05-2023 take 150 mg by mouth twice daily Pregabalin Discontinued 150 MG PO Twice daily August 04, 2023 9:25am August 05, 2023 3:00pm Start: 07-31-2023 take 150 mg by mouth twice daily pregabalin 150 mg, Oral, BID, Refills(s) 0 Start Date: 07/31/23 Status: Ordered Start: 03-14-2023 take 1 capsule by mo uth twice daily Pregabalin 150 mg TAKE ONE CAPSULE BY MOUTH TWICE A DAY for Mar, Active Start: 08-10-2022 take 1 capsule by mo uth twice daily Pregabalin 150 mg TAKE 1 (ONE) CAPSULE BY MOUTH TWO TIMES DAILY for Aug, Active Start: 09-22-2018 End: 08-04-2023 take 1 capsule by mouth three times daily Pregabalin (Lyrica) 150 mg capsule Discontinued 150 MG PO Three times daily September 22, 2018 12:00am August 04, 2023 9:29am take 1 capsule by mo uth every twelve hours Lyrica 150 MG 1 capsule Orally BID for 30 days G89.29 Chronic pain Active Problems Active Problems Problem Classification Problem Date Documented Date Episodic/Chronic Abdominal pain (20 sources) Abdominal pain; Translations: [Unspecified abdominal pain] Onset: 7 Episodic Administrative/social admission (18 sources) Worried well; Translations: [Person with feared health complaint in whom no diagnosis is made] Episodic Anxiety disorders (1 source) Anxiety disorder, unspecified; Translations: [ANXIETY DISORDER UNSPECIFIED] Onset: 2 Chronic Blindness and vision defects (2 sources) Visual hallucinations; Translations: [Visual hallucinations] Episodic Chronic kidney disease (20 sources) Chronic kidney disease stage 3; Translations: [Chronic kidney disease, stage 3 (moderate)] Onset: 2 Chronic Chronic obstructive pulmonary disease and bronchiectasis (2 sources) Bronchitis; Translations: [Bronchitis, not specified as acute or chronic] Episodic Congestive heart failure; nonhypertensive (3 sources) Heart failure, unspecified; Translations: [Chronic diastolic heart failure] Onset: 2 Chronic Coronary atherosclerosis and other heart disease (10 sources) Atherosclerotic heart disease of [place] coronary artery without angina pectoris; Translations: [Coronary atherosclerosis] Onset: 2 Chronic Deficiency and other anemia (19 sources) Anemia of renal disease; Translations: [Anemia in chronic kidney disease] 12-20-2023 Chronic Deficiency and other anemia (5 sources) Anemia in chronic kidney disease; Translations: [ANEMIA IN CHRONIC KIDNEY DISEASE] Onset: 2 Resolved: 2 Chronic Deficiency and other anemia (2 sources) Iron deficiency anemia; Translations: [Iron deficiency anemia, unspecified] Episodic Delirium, dementia, and amnestic and other cognitive disorders (9 sources) Dementia; Translations: [Unspecified dementia without behavioral [...] Onset: 2 Chronic Disorders of lipid metabolism (4 sources) Mixed hyperlipidemia; Translations: [Hyperlipidemia] 12-10-2022 Chronic E Codes: Fall (4 sources) Fall; Translations: [Unspecified fall, initial encounter] Onset: 2 Episodic Essential hypertension (20 sources) Essential hypertension; Translations: [Essential (primary) hypertension] Onset: 4 Chronic Fluid and electrolyte disorders (1 source) Acidosis; Translations: [Acidosis, unspecified] Onset: 4 Episodic Genitourinary symptoms and ill-defined conditions (19 sources) Female stress incontinence; Translations: [Female stress [...] 2 Resolved: 2 Chronic Malaise and fatigue (8 sources) Weakness; Translations: [Asthenia] Onset: 2 Episodic [...] PAIN UNSPECIFIED] Onset: 2 Episodic Nutritional deficiencies (7 sources) Vitamin D deficiency; Translations: [Vitamin D deficiency, unspecified] Onset: 3 Chronic Osteoarthritis (20 sources) Osteoarthritis of knee; Translations: [Unilateral primary osteoarthritis, left knee] 01-31-2016 Chronic Other aftercare (18 sources) Patient encounter status; Translations: [Aftercare following joint replacement surgery] Chronic Other aftercare (1 source) Other [facility] (current) drug therapy; Translations: [OTH LONG-TERM CURRENT DRUG THERAPY] Onset: 2 Episodic Other aftercare (1 source) intermodal dispatcher (current) use of oral hypoglycemic drugs; Translations: [WOMEN'S APPAREL 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 USE ORAL HYPOGLYCEMIC DX] Onset: 2 Episodic Other aftercare (1 source) intermodal dispatcher (current) use of insulin; Translations: [LONG-TERM CURRENT USE OF INSULIN] Onset: 2 Episodic Other aftercare (2 sources) Long-term current use of drug therapy; Translations: [Other buttermaker helper (current) drug therapy] Episodic Other and ill-defined cerebrovascular disease (1 source) Cerebrovascular disease; Translations: [Cerebrovascular disease, unspecified] Onset: 3 Chronic Other and ill-defined cerebrovascular disease (6 sources) Small vessel cerebrovascular disease 11-15-2022 Chronic Other circulatory disease (2 sources) Cardiovascular symptoms; Translations: [Other specified symptoms and signs involving the circulatory and respiratory systems] Episodic Other connective tissue disease (17 sources) Artificial knee joint present; Translations: [Presence of unspecified artificial knee joint] Chronic Other connective tissue disease (1 source) Presence of right artificial knee joint; Translations: [PRESENCE RT ARTIFICIAL KNEE JOINT] Onset: 2 Chronic Other connective tissue disease (1 source) Presence of unspecified artificial knee joint; Translations: [Status post knee replacement] Chronic Other connective tissue disease (20 sources) Fibromyalgia; Translations: [Fibromyalgia] Onset: 4 Episodic Other connective tissue disease (3 sources) Fibromyalgia; Translations: [Myalgia and myositis, unspecified] Onset: 2 Episodic Other connective tissue disease (7 sources) Recurrent falls ; Translations: [Repeated falls] Onset: 3 Episodic Other connective tissue disease (6 sources) Fibromyositis 11-15-2022 Episodic Other connective tissue disease (2 sources) Spasm; Translations: [Other muscle spasm] Episodic Other connective tissue disease (2 sources) Pain in right foot; Translations: [Pain in right foot] Episodic Other diseases of kidney and ureters (20 sources) Secondary hyperparathyroidism; Translations: [Secondary hyperparathyroidism of renal origin] 08-04-2023 Chronic Other diseases of kidney and ureters (6 sources) Secondary hyperparathyroidism of renal origin; Translations: [Secondary hyperparathyroidism (of renal origin)] Onset: 2 Resolved: 2 Chronic Other gastrointestinal disorders (17 sources) Abnormal feces; Translations: [Other fecal abnormalities] Episodic Other gastrointestinal disorders (17 sources) Flatulence, eructation and gas pain; Translations: [...] Essential tremor; Translations: [Essential tremor] Chronic Other hereditary and degenerative nervous system conditions (2 sources) Restless legs; Translations: [Restless legs syndrome] 08-22-2023 Chronic Other hereditary and degenerative nervous system conditions (1 source) Restless legs syndrome; Translations: [Restless legs syndrome (RLS)] 12-12-2023 Chronic Other infections; including parasitic (2 sources) H/O: infectious disease; Translations: [Personal history of other infectious and parasitic diseases] Episodic Other injuries and conditions due to external causes (2 sources) History of fall; Translations: [History of falling] Episodic Other nervous system disorders (20 sources) Chronic pain; Translations: [Other chronic pain] 08-04-2023 Chronic Other nervous system disorders (18 sources) Difficulty walking; Translations: [Difficulty in walking, [...] right knee] Episodic Other non-traumatic joint disorders (20 sources) Arthralgia of the pelvic region and thigh; Translations: [Pain in left hip] Episodic Other non-traumatic joint disorders (2 sources) Shoulder pain; Translations: [Pain in left shoulder] Episodic Other non-traumatic joint disorders (2 sources) Pain of left wrist; Translations: [Pain in left wrist] Onset: 3 Episodic Other non-traumatic joint disorders (8 sources) Pain in wrist; Translations: [Pain in left wrist] 11-15-2022 Episodic Other non-traumatic joint disorders (16 sources) Pain in left shoulder; Translations: [Left shoulder pain] Episodic Other non-traumatic joint disorders (2 sources) Arthropathy; Translations: [Joint disorder, unspecified] Episodic Other non-traumatic joint disorders (2 sources) Arthralgia of the ankle and/or foot; Translations: [Pain in right ankle and joints of right foot] Episodic Other non-traumatic joint disorders (2 sources) Pain in right shoulder; Translations: [Right shoulder pain] 09-06-2023 Episodic Other nutritional; endocrine; and metabolic disorders (18 sources) Hypomagnesemia; Translations: [Hypomagnesemia] 12-20-2023 Chronic Other nutritional; endocrine; and metabolic disorders (7 sources) Hypomagnesemia; Translations: [Disorders of magnesium metabolism] Onset: 2 Resolved: 2 Chronic Other nutritional; [...] mass index (BMI) 38.0-38.9, adult] Chronic Other skin disorders (2 sources) Disorder of nail; Translations: [Other nail disorders] Episodic Other upper respiratory infections (2 sources) Chronic sinusitis; Translations: [Chronic sinusitis, unspecified] Chronic Other upper respiratory infections (5 sources) Acute sinusitis; Translations: [Acute sinusitis, unspecified] Episodic Pneumonia (except that caused by tuberculosis or sexually transmitted disease) (3 sources) Pneumonia; Translations: [Pneumonia, unspecified organism] Onset: 4 Episodic Prolapse of female genital organs (2 sources) Herniation of rectum into vagina; Translations: [Rectocele without mention of uterine prolapse] Onset: 7 Chronic Residual codes; unclassified (2 sources) Hypersomnia; Translations: [Hypersomnia, unspecified] Chronic Residual codes; unclassified (17 sources) Family history of cancer of colon; Translations: [Family history of malignant neoplasm of digestive organs] Episodic Residual codes; unclassified (6 sources) Chronic pain 01-31-2016 Episodic Residual codes; unclassified (2 sources) Localized edema; Translations: [Localized edema] Episodic Residual codes; unclassified (2 sources) Insomnia; Translations: [Insomnia, unspecified] 08-22-2023 Episodic Residual codes; unclassified (1 source) Insomnia, unspecified; Translations: [Insomnia, unspecified] 12-12-2023 Episodic Skin and subcutaneous tissue infections (6 sources) Cellulitis of buttock; Translations: [Cellulitis of buttock] 12-19-2023 Episodic Spondylosis; intervertebral disc disorders; other back problems (20 sources) Degeneration of cervical intervertebral disc; Translations: [Other cervical disc degeneration, unspecified cervical region] Chronic Spondylosis; intervertebral disc disorders; other back problems (20 sources) Low back pain; Translations: [Low back pain] Onset: 2 Episodic Thyroid disorders (12 sources) Hypothyroidism, unspecified; Translations: [Hypothyroidism] Onset: 2 01-31-2016 Chronic Unclassified (4 sources) CHRN KIDNEY DISEASE STG 3 UNSP; Translations: [CHRN KIDNEY DISEASE STG 3 UNSP] Onset: 2 Urinary tract infections (10 sources) Urinary tract infection, site not specified; Translations: [Urinary tract infectious disease] Onset: 2 Resolved: 2 Episodic Past or Other Problems Problem Classification Problem Date Documented Da te Episodic/Chronic Acute and unspecified renal failure (1 source) Acute kidney failure, unspecified; Translations: [N17.9] Onset: 3 Episodic Chronic kidney disease (12 sources) Chronic kidney disease; Translations: [Chronic kidney disease, stage III (moderate)] Onset: 2 Resolved: 2 Menopausal disorders (2 sources) Atrophic vaginitis; Translations: [...] [PAIN IN RIGHT ANKLE] Onset: 2 Episodic Other screening for suspected conditions (not mental disorders or infectious disease) (19 sources) CT of abdomen abnormal; Translations: [Abnormal findings on diagnostic imaging of other abdominal regions, including retroperitoneum] Onset: 3 12-20-2022 Episodic 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 Residual codes; unclassified (1 source) Family history [...] Test Name Value Interpretation Reference Range Facility Erythrocyte distribution wid th Auto (RBC) [Ratio]on 12-13-2023 Erythrocyte distribution width (RBC) [Ratio] 13.9 % 11.0-15.0 [facility] Estimated glomerular filtrat ion rate (GFR) non- Americanon 12-13-2023 GFR/1.73 sq M.predicted among non-blacks MDRD (S/P/Bld) [Vol rate/Area] 30 mL/min/{1.73_m2} Low >=60 [facility] Hematocrit Auto (Bld) [Volum e fraction]on 12-13-2023 Hematocrit (Bld) [Volume fraction] 36.2 % 36.0-48.0 [facility] Hemoglobin [Mass/volume] in Bloodon 12-13-2023 Hemoglobin (Bld) [Mass/Vol] 11.5 g/dL Low 12.0-16.0 [facility] Iron binding capacity [Mass/ volume] in Serum or Plasmaon 12-13-2023 Iron binding capacity [Mass/Vol] 310.0 ug/dL 250.0-450.0 [facility] Iron saturation [Mass Fracti on] in Serum or Plasmaon 12-13-2023 Iron saturation [Mass fraction] 11.3 % [facility] Laboratory - Chemistry and C hemistry - challengeon 12-13-2023 Albumin [Mass/Vol] 3.3 g/dL Low 3.4-5.0 [facility] Calcium [Mass/Vol] 9.4 mg/dL 8.5-10.1 [facility] Chloride [Moles/Vol] 102 mmol/L 98-107 [facility] CO2 [Moles/Vol] 31.0 mmol/L 21.0-32.0 [facility] Creatinine [Mass/Vol] 1.67 mg/dL High 0.55-1.02 [facility] Ferritin [Mass/Vol] 32.0 ng/mL 8.0-252.0 [facility] GFR/1.73 sq M.predicted MDRD (S/P/Bld) [Vol rate/Area] 36 mL/min/{1.73_m2} Low >=60 [facility] Glucose [Mass/Vol] 118 mg/dL High 74-106 [facility] Iron [Mass/Vol] 35.0 ug/dL Low 50.0-170.0 [facility] Magnesium [Mass/Vol] 1.8 mg/dL 1.8-2.4 [facility] Potassium [Moles/Vol] 4.1 mmol/L 3.5-5.1 [facility] Sodium [Moles/Vol] 140 mmol/L 136-145 [facility] Urate [Mass/Vol] 7.5 mg/dL High 2.6-6.0 [facility] Urea nitrogen [Mass/Vol] 22.0 mg/dL High 7.0-18.0 [facility] Urea nitrogen/Creatinine [Mass ratio] 13.2 mg/mg [facility] Bilirubin Ql (U) Negative NEGATIVE [facility] Glucose (U) [Mass/Vol] Negative NEGATIVE [facility] Ketones Ql (U) Negative NEGATIVE [facility] pH (U) 6.5 [pH] 5.0-9.0 [facility] Specific gravity (U) [Rel density] 1.010 1.005-1.025 [facility] Urobilinogen Qn (U) 0.2 {Macie'U}/dL 0.2-1.0 [facility] Laboratory - Specimen inform ationon 12-13-2023 Appearance (U) CLEAR CLEAR [facility] Color (U) LT. YELLOW YELLOW [facility] Laboratory - Urinalysison Leukocyte esterase Test strip Ql (U) TRACE Abnormal NEGATIVE [facility] Mucus Ql (Urine sed) NONE SEEN NONE SEEN [facility] Nitrite Ql (U) Negative NEGATIVE [facility] Protein (U) [Mass/Vol] 9.8 mg/dL <=11.9 [facility] Protein Ql (U) Negative NEG/TRACE [facility] Leukocytes [#/volume] correc olamide for nucleated erythrocytes in Blood by Automated counon 12-13-2023 WBC corrected for nucl RBC Auto (Bld) [#/Vol] 6.2 10 3/uL 4.0-11.0 [facility] MCH Auto (RBC) [Entitic mass ]on 12-13-2023 MCH (RBC) [Entitic mass] 29.6 pg 26.7-34.0 [facility] MCHC Auto (RBC) [Mass/Vol]on 12-13-2023 MCHC (RBC) [Mass/Vol] 31.8 g/dL 29.9-35.2 [facility] MCV Auto (RBC) [Entitic vol] on 12-13-2023 MCV (RBC) [Entitic vol] 93.1 fL 81.0-99.0 [facility] No Panel Informationon 12-12 25-Hydroxy Vitamin D Total 75.0 ng/mL [facility] Comment on above: <20 ng/mL Vit D defi cient20-<30 ng/mL Vit D iwgbykgquwfs16-407 ng/mL Vit D sufficient>100 ng/mL Potential Toxicity Parathyroid Hormone (Intact) 39 pg/mL 15-65 [facility] Comment on above: Performed at: - [address] [id number] Director: Jerry Joseph PhD, Phone: [phone] Phosphorus Level 3.5 mg/dL 2.6-4.7 [facility] Urine Bacteria SMALL #/HPF Abnormal NONE SEEN [facility] Urine Occult Blood Negative NEGATIVE [facility] Urine Other Casts NONE SEEN #/LPF NONE SEEN [facility] Urine Other Crystals None Seen #/HPF None Seen [facility] Urine Random Creatinine 27.29 mg/dL 20.0 0-300.0 0 [facility] Urine RBC 0-2 #/HPF 0-2 [facility] Urine Squamous Epithelial Cells FEW #/LPF Abnormal NONE/RARE [facility] Urine WBC 5-10 #/HPF Abnormal NONE SEEN [facility] Platelet mean volume Auto (B ld) [Entitic vol]on 12-13-2023 Platelet mean volume (Bld) [Entitic vol] 8.7 fL Low 9.5-13.5 [facility] Platelets Auto (Bld) [#/Vol] on 12-13-2023 Platelets (Bld) [#/Vol] 293 10 3/uL 150-450 [facility] RBC Auto (Bld) [#/Vol]on RBC (Bld) [#/Vol] 3.89 10 6/uL Low 4.20-5.40 [facility] Serum or plasma anion gap de terminationon 12-13-2023 Anion gap [Moles/Vol] 11.1 mmol/L [facility] Urine protein/creatinine rat ioon 12-13-2023 Protein/Creatinine (U) [Ratio] 0.36 [facility] Office Visiton 11-07-2023 Follow-up visit [id number] Nadia Patterson 1945 F Date Provider Department Center 11/07/2023 271JOSH HANNAH CARD [facility] No family history on file Level of Service:60044 [place] OFFICE/OUTPATIENT ESTABLISHED LOW MDM 20 MIN Normal [facility] Office Visiton 08-10-2023 Follow-up visit [id number] Nadia Patterson 1945 F Date Provider Department Center 08/10/2023 271-JOSH AUSTIN CARD [facility] No family history on file Level of Service:53926 [place] OFFICE/OUTPATIENT ESTABLISHED MOD MDM 30 MIN Normal [facility] Orders Onlyon 08-10-2023 Orders Only [id number] Nadia Patterson 1945 F Date Provider Department Center 08/10/2023 FRANKLIN MAY CARD [facility] No family history on file Normal [facility] C Blood Charcoalon Blood Culture Charcoal Normal [facility] Comment on above: Performed By: #### 1 [id number] ####[facility] [address] [place] [address] Blood Culture Charcoal Normal [facility] Comment on above: Performed By: #### 1 [id number] ####[address] [place] [address] Discharge Instructionson Discharge Instructions [id number] 1.00TIFF Normal [facility] BMPon 08-02-2023 Anion gap [Moles/Vol] 11 mmol/L Normal 6-16 [facility] Comment on above: Performed By: #### 1 [id number], 7054560, [id number] ####[facility] [address] [place] [address] BUN/Creat Ratio 15 No Units Normal 10-20 [facility] Comment on above: Performed By: #### 1 [id number], 2821857, 0295646 ####[facility] [address] [place] [address] Calcium [Mass/Vol] 9.1 mg/dL Normal 8.9-11.1 [facility] Comment on above: Performed By: #### 1 [id number], 0794639, 0499086 ####[facility] [address] [place] [address] Chloride [Moles/Vol] 106 mmol/L Normal 101-111 [facility] Comment on above: Performed By: #### 1 [id number], 6529841, 2481153 ####[facility] [address] [facility] [place] [address] CO2 [Moles/Vol] 29 mmol/L Normal 21-31 [facility] Comment on above: Performed By: #### 1 1687229, 4094844, 8350020 ####[facility] [address] [place] [address] Creatinine [Mass/Vol] 1.5 mg/dL High 0.5-1.3 [facility] Comment on above: Performed By: #### 1 1080447, 3618515, 1340441 ####[facility] [address] [place] [address] Glucose [Mass/Vol] 128 mg/dL Normal 55-199 [facility] Comment on above: Performed By: #### 1 0400767, 4717295, 8845989 ####[facility] [address] [place] [address] Potassium [Moles/Vol] 4.0 mmol/L Normal 3.5-5.3 [facility] Comment on above: Performed By: #### 1 1912911, 1263300, 7845025 ####[facility] [address] [place] [address] Sodium [Moles/Vol] 142 mmol/L Normal 135-145 [facility] Comment on above: Performed By: #### 1 [id number], 5063051, 5021542 ####[facility] [address] [place] [address] Urea nitrogen [Mass/Vol] 22 mg/dL High 5-21 [facility] Comment on above: Performed By: #### 1 [id number], 6941178, 4767556 ####[address] [address] CBC w/ Auto Diffon 4 Basophil Absolute 0.1 E9/L Normal 0.0-0.2 [facility] Comment on above: Performed By: #### 1 4110714, 3831014, 8043497 ####[address] [address] Basophils/100 WBC (Bld) 1.1 % Normal 0.0-2.0 [facility] Comment on above: Performed By: #### 1 0621243, 2542562, 4458927 ####[address] [address] Eos Absolute 0.2 E9/L Normal 0.0-0.5 [facility] Comment on above: Performed By: #### 1 7003982, 6652719, 2995796 ####[address] [address] Eosinophils/100 WBC (Bld) 4.7 % Normal 0.0-8.0 [facility] Comment on above: Performed By: #### 1 4031358, 3126656, 1023992 ####[address] [address] Erythrocyte distribution width (RBC) [Ratio] 14.8 % High 10.9-14.2 [facility] Comment on above: Performed By: #### 1 9357258, 4360191, 4116243 ####[address] [address] Hematocrit (Bld) [Volume fraction] 33.0 % Low 34.0-46.0 [facility] Comment on above: Performed By: #### 1 0549841, 2578850, 9732887 ####[address] [address] Hemoglobin (Bld) [Mass/Vol] 10.7 g/dL Low 12.0-16.0 [facility] Comment on above: Performed By: #### 1 1666125, 1882599, 7154780 ####[address] [address] Lymph Absolute 2.1 E9/L Normal 1.0-4.0 [facility] Comment on above: Performed By: #### 1 9050145, 5781062, 9523594 ####[address] [address] Lymphocytes/100 WBC (Bld) 39.9 % Normal 14.0-50.0 [facility] Comment on above: Performed By: #### 1 7238190, 8571901, 5704428 ####[address] [address] MCH (RBC) [Entitic mass] 29.1 pg Normal 27.0-34.0 [facility] Comment on above: Performed By: #### 1 6265374, 8412687, 7222956 ####[address] [address] MCHC (RBC) [Mass/Vol] 32.4 g/dL Normal 31.4-36.[address] [facility] Comment on above: Performed By: #### 1 2781288, 9309315, 6419000 ####[address] [address] MCV (RBC) [Entitic vol] 89.6 fL Normal 80.0-100.0 F [facility] Comment on above: Performed By: #### 1 3148145, 9853561, 8855155 ####[address] [address] Ector Absolute 0.4 E9/L Normal 0.2-1.[address] [facility] Comment on above: Performed By: #### 1 1401893, 2953404, 8995931 ####[address] [address] Monocytes/100 WBC (Bld) 8.1 % Normal 4.0-14.0 F [facility] Comment on above: Performed By: #### 1 7965630, 7568616, 4286775 ####[facility] [address] [facility] [place] [address] Neutro Absolute 2.4 E9/L Normal 2.0-7.5 [facility] Comment on above: Performed By: #### 1 0266725, 7650535, 4329194 ####[facility] [address] [place] [address] Neutro Auto 46.2 % Normal 36.0-75.0 [facility] Comment on above: Performed By: #### 1 4412480, 3487073, 1101173 ####[facility] [address] [facility] [place] [address] Platelet 236.0 E9/L Normal 150.0-500.0 [facility] Comment on above: Performed By: #### 1 0329047, 3887943, 7577309 ####[facility] [address] [place] [address] Platelet mean volume (Bld) [Entitic vol] 6.8 fL Normal 6.4-10.8 [facility] Comment on above: Performed By: #### 1 3622885, 3441718, 0820557 ####[facility] [address] [place] [address] RBC 3.7 E12/L Low 4.3-5.9 [facility] Comment on above: Performed By: #### 1 1161612, 3212145, 2823355 ####[facility] [address] [place] [address] WBC 5.3 E9/L Normal 4.0-11.0 [facility] Comment on above: Performed By: #### 1 9806760, 8031367, 7536876 ####[facility] [address] [place] [address] CHEMISTRYOrdered By: SYSTEM SYSTEM on 08-02-2023 Anion gap [Moles/Vol] 11 mmol/L Normal 6 - 16 mEq/L [facility] Calcium [Mass/Vol] 9.1 mg/dL Normal 8.9 - 11. 1 mg/dL [facility] Chloride [Moles/Vol] 106 mmol/L Normal 101 - 1 11 mmol/L [facility] CO2 [Moles/Vol] 29 mmol/L Normal 21 - 31 mmol/L [facility] Creatinine [Mass/Vol] 1.5 mg/dL High 0.5 - 1.3 mg/dL [facility] eGFR 35 mL/min/1.73 m2 Low >=59mL/min / 1.73 m2 [facility] Glucose [Mass/Vol] 128 mg/dL Normal 55 - 199 mg/dL [facility] Potassium [Moles/Vol] 4.0 mmol/L Normal 3.5 - 5.3 mmol/L [facility] Sodium [Moles/Vol] 142 mmol/L Normal 135 - 145 mmol/L [facility] Urea nitrogen [Mass/Vol] 22 mg/dL High 5 - 21 mg/dL [facility] Urea nitrogen/Creatinine [Mass ratio] 15 mg/mg Normal 10 - 20 [facility] HEMATOLOGYOrdered By: SYSTEM SYSTEM on 08-02-2023 Basophil Absolute 0.1 E9/L Normal 0.0 - 0.2 E9/L [facility] Basophils/100 WBC (Bld) 1.1 % Normal 0.0 - 2.0 % [facility] Eos Absolute 0.2 E9/L Normal 0.0 - 0.5 E9/L [facility] Eosinophils/100 WBC (Bld) 4.7 % Normal 0.0 - 8.0 % [facility] Erythrocyte distribution width (RBC) [Ratio] 14.8 % High 10.9 - 14.2 % [facility] Hematocrit (Bld) [Volume fraction] 33.0 % Low 34.0 - 46.0 % [facility] Hemoglobin (Bld) [Mass/Vol] 10.7 g/dL Low 12.0 - 16.0 gm/dL [facility] Lymph Absolute 2.1 E9/L Normal 1.0 - 4.0 E9/L [facility] Lymphocytes/100 WBC (Bld) 39.9 % Normal 14.0 - 50.0 % [facility] MCH (RBC) [Entitic mass] 29.1 pg Normal 27. 0 - 34.0 pg [facility] MCHC (RBC) [Mass/Vol] 32.4 g/dL Normal 31.4 - 36.0 gm/dL [facility] MCV (RBC) [Entitic vol] 89.6 fL Normal 80.0 - 100.0 fL [facility] Ector Absolute 0.4 E9/L Normal 0.2 - 1.0 E9/L [facility] Monocytes/100 WBC (Bld) 8.1 % Normal 4.0 - 14.0 % [facility] Neutro Absolute 2.4 E9/L Normal 2.0 - 7.5 E9/L [facility] Neutro Auto 46.2 % Normal 36.0 - 75.0 % [facility] Platelet 236.0 E9/L Normal 150.0 - 500.0 E9/L [facility] Platelet mean volume (Bld) [Entitic vol] 6.8 fL Normal 6.4 - 10.8 fL [facility] RBC 3.7 E12/L Low 4.3 - 5.9 E12/L [facility] WBC 5.3 E9/L Normal 4.0 - 11.0 E9/L [facility] Inpatient Clinical Summaryon 08-02-2023 Inpatient Clinical Summary Normal [facility] Inpatient Patient Summaryon 08-02-2023 Inpatient Patient Summary Normal [facility] Inpatient Patient Summary Normal [facility] Interdisciplinary Note - [place] e Manageron 08-02-2023 Interdisciplinary Note - Concrete Polisher Normal [facility] Comment on above: Result Comment: Elec tronically Signed By: Mei Locke RN\.br\Date and Time Signed: 08/02/23 08:26 EST Other Comment: error Interdisciplinary Note - Concrete Polisher Normal [facility] Comment on above: Result Comment: Elec tronically Signed By: Mei Locke RN\Elenibr\Date and Time Signed: 08/02/23 08:14 EST eGFRon 08-02-2023 eGFR 35 mL/min/1.73 m2 Low >=59 [facility] Comment on above: Order Comment: Order added by Discern Expert. Performed By: #### 1 [id number], 6387701, 5363558 ####[facility] [address] [place] [address] BMPon 08-01-2023 Anion gap [Moles/Vol] 12 mmol/L Normal 6-16 [facility] Comment on above: Performed By: #### 2 191892, 11594358, 7221129 ####[facility] [address] [place] [address] BUN/Creat Ratio 14 No Units Normal 10-20 [facility] Comment on above: Performed By: #### 2 999121, 99697858, 3011617 ####[facility] [address] [place] [address] Calcium [Mass/Vol] 9.1 mg/dL Normal 8.9-11.1 [facility] Comment on above: Performed By: #### 2 [id number], [id number], 0961001 ####[facility] [address] [place] [address] Chloride [Moles/Vol] 103 mmol/L Normal 101-111 [facility] Comment on above: Performed By: #### 2 684430, 53923023, 9729238 ####[facility] [address] [place] [address] CO2 [Moles/Vol] 31 mmol/L Normal 21-31 [facility] Comment on above: Performed By: #### 2 187482, 12465297, 5517624 ####[facility] [address] [place] [address] Creatinine [Mass/Vol] 1.3 mg/dL Normal 0.5-1.3 [facility] Comment on above: Performed By: #### 2 295424, 31199628, 1256033 ####[facility] [address] [place] [address] Glucose [Mass/Vol] 113 mg/dL Normal 55-199 [facility] Comment on above: Performed By: #### 2 509971, 90469936, 3829975 ####[facility] [address] [place] [address] Potassium [Moles/Vol] 4.0 mmol/L Normal 3.5-5.3 [facility] Comment on above: Performed By: #### 2 526746, 86913754, 1317349 ####[address] [place] [address] Sodium [Moles/Vol] 142 mmol/L Normal 135-145 [facility] Comment on above: Performed By: #### 2 767997, 75267646, 6979513 ####[address] [address] Urea nitrogen [Mass/Vol] 18 mg/dL Normal 5-21 [facility] Comment on above: Performed By: #### 2 307394, 65684149, 4744562 ####[address] [address] BNPon 08-01-2023 Natriuretic peptide B (Bld) [Mass/Vol] 112 pg/mL High 5-80 [facility] Comment on above: Performed By: #### 1 [id number] ####[address] [address] CBC w/ Auto Diffon 4 Basophil Absolute 0.1 E9/L Normal 0.0-0.2 [facility] Comment on above: Performed By: #### 2 576360, 42604289, 9283823 ####[address] [address] Basophils/100 WBC (Bld) 1.4 % Normal 0.0-2.0 F [facility] Comment on above: Performed By: #### 2 250265, 82387428, 9424005 ####[address] [address] Eos Absolute 0.3 E9/L Normal 0.0-0.5 [facility] Comment on above: Performed By: #### 2 778813, 27473226, 9270122 ####[address] [address] Eosinophils/100 WBC (Bld) 6.1 % Normal 0.0-8.0 [facility] Comment on above: Performed By: #### 2 151677, 43159978, 3663126 ####[address] [place] [address] Erythrocyte distribution width (RBC) [Ratio] 14.9 % High 10.9-14.2 [facility] Comment on above: Performed By: #### 2 820380, 93963737, 3859044 ####[address] [address] Hematocrit (Bld) [Volume fraction] 34.0 % Normal 34.0-46.0 [facility] Comment on above: Performed By: #### 2 920105, 76954923, 0356449 ####[address] [address] Hemoglobin (Bld) [Mass/Vol] 11.3 g/dL Low 12.0-16.0 [facility] Comment on above: Performed By: #### 2 416760, 42435390, 3249262 ####[address] [address] Lymph Absolute 2.4 E9/L Normal 1.0-4.0 [facility] Comment on above: Performed By: #### 2 411070, 61958552, 4044239 ####[address] [address] Lymphocytes/100 WBC (Bld) 43.6 % Normal 14.0-50.0 [facility] Comment on above: Performed By: #### 2 193782, 07084384, 1968992 ####[address] [address] MCH (RBC) [Entitic mass] 29.4 pg Normal 27.0-34.0 [facility] Comment on above: Performed By: #### 2 932030, 53555897, 6526656 ####[address] [address] MCHC (RBC) [Mass/Vol] 33.2 g/dL Normal 31.4-36.0 [facility] Comment on above: Performed By: #### 2 296820, 42700256, 8941171 ####[place] [address] MCV (RBC) [Entitic vol] 88.5 fL Normal 80.0-100.0 [facility] Comment on above: Performed By: #### 2 897195, 10878784, 9562350 ####[address] [place] Absolute 0.4 E9/L Normal 0.2-1.[address] [facility] Comment on above: Performed By: #### 2 044313, 84557033, 2375768 ####[place] [address] Monocytes/100 WBC (Bld) 7.3 % Normal 4.0-14.0 [facility] Comment on above: Performed By: #### 2 838492, 31991933, 6079325 ####[address] Neutro Absolute 2.2 E9/L Normal 2.0-7.5 [facility] Comment on above: Performed By: #### 2 739308, 90395448, 7418280 ####[place] [address] Neutro Auto 41.6 % Normal 36.0-75.0 [facility] Comment on above: Performed By: #### 2 089029, 09167355, 6607926 ####[address] Platelet 251.0 E9/L Normal 150.0-500.0 [facility] Comment on above: Performed By: #### 2 995748, 05900832, 4032061 ####[address] Platelet mean volume (Bld) [Entitic vol] 7.9 fL Normal 6.4-10.8 [facility] Comment on above: Performed By: #### 2 908721, 96769729, 2252575 ####[facility] [address] [place] [address] RBC 3.8 E12/L Low 4.3-5.9 [facility] Comment on above: Performed By: #### 2 717069, 30156678, 0836387 ####[facility] [address] [place] [address] WBC 5.4 E9/L Normal 4.0-11.0 [facility] Comment on above: Performed By: #### 2 177178, 58325808, 6403513 ####[facility] [address] [place] [address] CHEMISTRYOrdered By: [employer] on 08-01-2023 Anion gap [Moles/Vol] 12 mmol/L Normal 6 - 16 mEq/L Remisol Chem Calcium [Mass/Vol] 9.1 mg/dL Normal 8.9 - 11. 1 mg/dL Remisol Chem Chloride [Moles/Vol] 103 mmol/L Normal 101 - 1 11 mmol/L Remisol Chem CO2 [Moles/Vol] 31 mmol/L Normal 21 - 31 mmol/L Remisol Chem Creatinine [Mass/Vol] 1.3 mg/dL Normal 0.5 - 1.3 mg/dL Remisol Chem eGFR 42 mL/min/1.73 m2 Low >=59mL/min / 1.73 m2 Remisol Chem Glucose [Mass/Vol] 113 mg/dL Normal 55 - 199 mg/dL [facility] Chem Potassium [Moles/Vol] 4.0 mmol/L Normal 3.5 - 5.3 mmol/L [facility] Chem Sodium [Moles/Vol] 142 mmol/L Normal 135 - 145 mmol/L Rem[facility] Chem Urea nitrogen [Mass/Vol] 18 mg/dL Normal 5 - 21 mg/dL [facility] Chem Urea nitrogen/Creatinine [Mass ratio] 14 mg/mg Normal 10 - 20 [facility] Chem CHEMISTRYOrdered By: Olu Rocha on 08-01-2023 Natriuretic peptide B (Bld) [Mass/Vol] 112 pg/mL High 5 - 80 pg/mL [facility] HEMATOLOGYOrdered By: SYSTEM SYSTEM on 08-01-2023 Basophil Absolute 0.1 E9/L Normal 0.0 - 0.2 E9/L Remisol Heme Basophils/100 WBC (Bld) 1.4 % Normal 0.0 - 2.0 % Remisol Heme Eos Absolute 0.3 E9/L Normal 0.0 - 0.5 E9/L Remisol Heme Eosinophils/100 WBC (Bld) 6.1 % Normal 0.0 - 8.0 % Remisol Heme Erythrocyte distribution width (RBC) [Ratio] 14.9 % High 10.9 - 14.2 % Remisol Heme Hematocrit (Bld) [Volume fraction] 34.0 % Normal 34.0 - 46.0 % Remisol Heme Hemoglobin (Bld) [Mass/Vol] 11.3 g/dL Low 12.0 - 16.0 gm/dL Remisol Heme Lymph Absolute 2.4 E9/L Normal 1.0 - 4.0 E9/L Remisol Heme Lymphocytes/100 WBC (Bld) 43.6 % Normal 14.0 - 50.0 % Remisol Heme MCH (RBC) [Entitic mass] 29.4 pg Normal 27. 0 - 34.0 pg Remisol Heme MCHC (RBC) [Mass/Vol] 33.2 g/dL Normal 31.4 - 36.0 gm/dL Remisol Heme MCV (RBC) [Entitic vol] 88.5 fL Normal 80.0 - 100.0 fL Remisol Heme Ector Absolute 0.4 E9/L Normal 0.2 - 1.0 E9/L Remisol Heme Monocytes/100 WBC (Bld) 7.3 % Normal 4.0 - 14.0 % Remisol Heme Neutro Absolute 2.2 E9/L Normal 2.0 - 7.5 E9/L Remisol Heme Neutro Auto 41.6 % Normal 36.0 - 75.0 % Rem[facility] Heme Platelet 251.0 E9/L Normal 150.0 - 500.0 E9/L Remisol Heme Platelet mean volume (Bld) [Entitic vol] 7.9 fL Normal 6.4 - 10.8 fL Remisol Heme RBC 3.8 E12/L Low 4.3 - 5.9 E12/L Remisol Heme WBC 5.4 E9/L Normal 4.0 - 11.0 E9/L Remisol Heme [id number] 08-01-2023 HbA1c (Bld) [Mass fraction] 6.7 % High <=5.9 [facility] Comment on above: Order Comment: Order placed by EKM rule. BCC_HGBA1CLABORDER_[facility] Performed By: #### 7 [id number] ####[facility] [address] [place] [address] Interdisciplinary Note - [place] e Manageron 08-01-2023 Interdisciplinary Note - Concrete Polisher Normal [facility] Comment on above: Result Comment: Elec tronically Signed By: Mei Locke RN\.br\Date and Time Signed: 08/01/23 14:51 EST Message from Medicareon 07-08 Message from Medicare [id number] Normal [facility] Progress Note-Physicianon Progress Note-Physician Normal F [facility] Comment on above: Result Comment: Elec tronically Signed By: Saira Lawler\.br\Date and Time Signed: 08/01/23 09:26 EST\.br\Electronically Co-Signed By: Hector Meier DO\.br\Date and Time Co-Signed: 08/01/23 14:28 EST eGFRon 08-01-2023 eGFR 42 mL/min/1.73 m2 Low >=59 [facility] Comment on above: Order Comment: Order added by Discern Expert. Performed By: #### 2 708613, 50741820, 0947776 ####[facility] [address] [place] [address] BMPon 07-31-2023 Anion gap [Moles/Vol] 15 mmol/L Normal 6-16 [facility] Comment on above: Performed By: #### 1 1103742, 35450291, 2326498, 7221856, 5664903, 5535204, 44771048 ####[facility] [address] [place] [address] BUN/Creat Ratio 13 No Units Normal 10-20 [facility] Comment on above: Performed By: #### 1 8278849, 82926189, 9274419, 9112432, 4240584, 9940839, 20029055 ####[facility] [address] [place] [address] Calcium [Mass/Vol] 10.0 mg/dL Normal 8.9-11.1 [facility] Comment on above: Performed By: #### 1 5438747, 48939106, 5282866, 7862431, 3713252, 9338854, 89142901 ####[facility] [address] [place] [address] Chloride [Moles/Vol] 101 mmol/L Normal 101-111 [facility] Comment on above: Performed By: #### 1 9616298, 65436969, 7042555, 5678141, 3001262, 3950330, 00610229 ####[facility] [address] [place] [address] CO2 [Moles/Vol] 31 mmol/L Normal 21-31 [facility] Comment on above: Performed By: #### 1 4504993, 53122931, 7368141, 6127815, 5439310, 3932257, 09756659 ####[facility] [address] [place] [address] Creatinine [Mass/Vol] 1.5 mg/dL High 0.5-1.3 [facility] Comment on above: Performed By: #### 1 3520634, 30623552, 6897791, 3893687, 0629131, 4154640, 03779198 ####[facility] [address] [place] [address] Glucose [Mass/Vol] 140 mg/dL Normal 55-199 [facility] Comment on above: Performed By: #### 1 5674363, 95523636, 5675104, 5841980, 1545111, 5568639, 71530897 ####[facility] [address] [place] [address] Potassium [Moles/Vol] 4.0 mmol/L Normal 3.5-5.3 [facility] Comment on above: Performed By: #### 1 1090251, 03626401, 0780218, 1035478, 7031810, 9465681, 77678237 ####[facility] [address] [place] [address] Sodium [Moles/Vol] 143 mmol/L Normal 135-145 [facility] Comment on above: Performed By: #### 1 1866337, 85340661, 6402411, 7595743, 2625104, 3538070, 08801896 ####[facility] [address] [place] [address] Urea nitrogen [Mass/Vol] 20 mg/dL Normal 5-21 [facility] Comment on above: Performed By: #### 1 9730152, 42298923, 6986888, 5229794, 6169658, 9131584, 07547363 ####[facility] [address] [place] [address] BNPon 07-31-2023 Int Ctr BNP Pass Normal [facility] Comment on above: Performed By: #### 1 4976363, 42936455, 2300788, 9066905, 1752001, 4522034, 02203847 ####[facility] [address] [place] [address] Natriuretic peptide B (Bld) [Mass/Vol] 114 pg/mL High 5-80 [facility] Comment on above: Performed By: #### 1 6965921, 42548303, 9567441, 0785296, 2241519, 7838066, 87136174 ####[facility] [address] [place] [address] CHEMISTRYOrdered By: Cecelia Carrillo on 07-31-2023 HbA1c (Bld) [Mass fraction] 6.7 % High <=5.9% [facility] ChemAutoSS CHEMISTRYOrdered By: SYSTEM SYSTEM on 07-31-2023 Troponin 4.50 pg/mL Low 10.10 - 27.10 pg/mL [facility] Chem Comment on above: Interpretive Data: T he 95% CI (Confidence Interval) PPV (Positive Predictive Value) for myocardial infarction in females is 38 pg/mL, in males 51 pg/mL. The results should be used in conjunction with clinical conditions of myocardial infarction. (Access High Sensitivity Troponin I Instructions For Use, Fonality, January 2018) Troponin 3.50 pg/mL Low 10.10 - 27.10 pg/mL [facility] Comment on above: Interpretive Data: T he 95% CI (Confidence Interval) PPV (Positive Predictive Value) for myocardial infarction in females is 38 pg/mL, in males 51 pg/mL. The results should be used in conjunction with clinical conditions of myocardial infarction. (Access High Sensitivity Troponin I Instructions For Use, Fonality, January 2018) Lactic Acid Lvl 2.1 mmol/L Normal 0.5 - 2.2 mmol/L Remisol Chem Troponin 3.60 pg/mL Low 10.10 - 27.10 pg/mL [facility] Comment on above: Interpretive Data: T he 95% CI (Confidence Interval) PPV (Positive Predictive Value) for myocardial infarction in females is 38 pg/mL, in males 51 pg/mL. The results should be used in conjunction with clinical conditions of myocardial infarction. (Access High Sensitivity Troponin I Instructions For Use, Fonality, January 2018) ED Clinical Summaryon 2023 ED Clinical Summary Normal [facility] ED Note-Physicianon 07-31-19 ED Note-Physician Normal [facility] Comment on above: Result Comment: Elec tronically Signed By: Mariela Birch PA-C\.br\Date and Time Signed: 07/30/23 23:16 EST\.br\Electronically Co-Signed By: Michele Marie DO\.br\Date and Time Co-Signed: 07/31/23 01:47 EST ED Patient Education Noteon 07-31-2023 ED Patient Education Note Normal [facility] ED Patient Summaryon 024 ED Patient Summary Normal [facility] Hep Func Panelon 07-31-2023 Albumin [Mass/Vol] 4.1 g/dL Normal 3.3-5.0 [facility] Comment on above: Performed By: #### 1 4827615, 07040404, 6204822, 4179656, 2859717, 6135929, 97438799 ####[facility] [address] [place] [address] Albumin/Globulin [Mass ratio] 1.4 {ratio} Normal 1.1-2.2 [facility] Comment on above: Performed By: #### 1 1144268, 87517478, 1933915, 4469768, 0753984, 3385885, 57462353 ####[facility] [address] [place] [address] Alk Phos 83 Int._Unit/L Normal 21-98 [facility] Comment on above: Performed By: #### 1 2788347, 24042479, 5404476, 4002823, 5252098, 0017535, 75249796 ####[facility] [address] [place] [address] ALT 9 Int._Unit/L Normal 6-[address] [facility] Comment on above: Performed By: #### 1 4865972, 39531692, 4571986, 9648371, 9798732, 8634107, 53135964 ####[address] [place] [address] AST 15 Int._Unit/L Normal 5-43 [facility] Comment on above: Performed By: #### 1 8544983, 37703512, 8433003, 7121122, 9680512, 3428432, 64288234 ####[facility] [address] [place] [address] Bili Direct 0.1 mg/dL Normal 0.0-0.4 [facility] Comment on above: Performed By: #### 1 4195420, 13974479, 1188714, 8995352, 5909371, 8001175, 07846338 ####[facility] [address] [place] [address] Bili Indirect 0.3 mg/dL Normal 0.1-0.[address] [facility] Comment on above: Performed By: #### 1 0090213, 17246020, 7575178, 1466473, 2260192, 2701885, 00314871 ####[facility] [address] [place] [address] Bili Total 0.4 mg/dL Normal 0.0-1.1 [facility] Comment on above: Performed By: #### 1 9533301, 08404895, 9301188, 3850375, 2285557, 6906581, 24469204 ####[facility] [address] [place] [address] Globulin (S) [Mass/Vol] 3.0 g/dL Normal 1.4-4.0 F [facility] Comment on above: Performed By: #### 1 2094564, 67403812, 4628665, 7650898, 5365010, 0307556, 40115849 ####[facility] [address] [place] [address] Protein [Mass/Vol] 7.1 g/dL Normal 6.0-7.8 [facility] Comment on above: Performed By: #### 1 1855330, 80417809, 3327759, 6750276, 9514747, 1551838, 23744045 ####[address] [place] [address] Influenza A&B Agon 4 Influenzae A Ag Negative Normal Negative [facility] Comment on above: Performed By: #### 1 3495957, [id number] ####[facility] [address] [place] [address] Influenzae B Ag Negative Normal Negative [facility] Comment on above: Result Comment: Test sensitivity and specificity vary for age group, specimen type, antigen types, and prevalence of disease. Test results must be evaluated in conjunction with other clinical data available to the physician. Individuals who received nasally administered Influenza A vaccine may have positive test results up to 3 days after vaccination. Performed By: #### 1 0991664, [id number] ####[facility] [address] [place] [address] Interdisciplinary Note - PTo n 07-31-2023 Interdisciplinary Note - PT Order for ED, pt to be transferred; will attempt PT eval on 08/01/23. Normal [facility] Lactic Acidon 07-31-2023 Lactic Acid Lvl 2.1 mmol/L Normal 0.5-2.2 [facility] Comment on above: Order Comment: Order added by EKS Rule. (FT_LACTIC_ACID_REFLEX) Adds reflex Lactic Acid 4 hours after initial if result is greater than or equal to 2.0. Performed By: #### 2 777793 ####[address] [place] [address] Lactic Acid Lvl 2.4 mmol/L High 0.5-2.2 [facility] Comment on above: Performed By: #### 1 5591220, 76912892, 8467770, 3364801, 2899666, 2090339, 76899265 ####[facility] [address] [place] [address] MICRO OTHER TESTSOrdered By: Damion Grigsby on 07-31-2023 Influenzae A Ag Negative (07/31/23 3:32 AM) Normal Negative [facility] Man Sero Influenzae B Ag Negative 1 (07/31/23 3:32 AM) Normal Negative [facility] Man Sero Comment on above: Interpretive Data: T est sensitivity and specificity vary for age group, specimen type, antigen types, and prevalence of disease. Test results must be evaluated in conjunction with other clinical data available to the physician. Individuals who received nasally administered Influenza A vaccine may have positive test results up to 3 days after vaccination. Rapid COV Int NEG Ctl Pass (07/31/23 3:32 AM) Normal [facility] Man Sero Rapid COV Int POS Ctl Pass (07/31/23 3:32 AM) Normal [facility] Man Sero SARS-CoV+SARS-CoV-2 (COVID-19) Ag IA.rapid Ql (Resp) Not Detected 6 (07/31/23 3:32 AM) Normal Not Detected [facility] Man Sero Comment on above: Interpretive Data: T he BD Veritor System for Rapid Detection of SARS-CoV-2 is a chromatographic digital immunoassay intended for the direct and qualitative detection of SARS-CoV-2 nucleocapsid antigens in nasal swabs from individuals who are suspected of COVID-19 by their healthcare provider within the first five days of the onset of symptoms. Negative results should be treated as presumptive, do not rule out SARS-CoV-2 infection and should not be used as the sole basis for treatment or patient management decisions, including infection control decisions. Negative results should be considered in the context of a patient s recent exposures, history and the presence of clinical signs and symptoms consistent with COVID-19, and confirmed with a molecular assay, if necessary, for patient management. For in vitro diagnostic use. In the [place], only for use under an Emergency Use Authorization. In the [place], this test has not been FDA cleared or approved; this test has been authorized by FDA under an EUA for use by authorized laboratories; use by laboratories certified under the CLIA, 42 U.S.C. 263a, that meet requirements to perform moderate, high, or waived complexity tests and at the Point of Care (POC), i.e., in patient care settings operating under a CLIA Certificate of Waiver, Certificate of Compliance, or Certificate of Accreditation. This test has been authorized only for the detection of proteins from SARS-CoV-2, not for any other viruses or pathogens; and, in the [place], this test is only authorized for the duration of the declaration that circumstances exist justifying the authorization of emergency use of in vitro diagnostics for detection and/or diagnosis of the virus that causes COVID-19 under Section 564(b)(1) of the Act, 21 U.S.C. 360bbb-3(b)(1), unless the authorization is terminated or revoked sooner. Progress Note-Nurseon 2023 Progress Note-Nurse Patient reports that Irma, her daughter takes care of her home meds and will have a list for us to do medication record. Attempted to call Irma twice with no answer. Normal [facility] Rapid COVID Antigen ([facility])on 07-31-2023 Rapid COV Int NEG Ctl Pass Normal Fis [facility] Comment on above: Performed By: #### 1 0387827, [id number] ####[facility] [address] [place] [address] Rapid COV Int POS Ctl Pass Normal [facility] her [facility] Comment on above: Performed By: #### 1 3664952, [id number] ####[facility] [address] [place] [address] SARS-CoV+SARS-CoV-2 (COVID-19) Ag IA.rapid Ql (Resp) Not detected Normal Not Detected [facility] Comment on above: Result Comment: The [employer] Mobile? System for Rapid Detection of SARS-CoV-2 is a chromatographic digital immunoassay intended for the direct and qualitative detection of SARS-CoV-2 nucleocapsid antigens in nasal swabs from individuals who are suspected of COVID-19 by their healthcare provider within the first five days of the onset of symptoms. Negative results should be treated as presumptive, do not rule out SARS-CoV-2 infection and should not be used as the sole basis for treatment or patient management decisions, including infection control decisions. Negative results should be considered in the context of a patient?s recent exposures, history and the presence of clinical signs and symptoms consistent with COVID-19, and confirmed with a molecular assay, if necessary, for patient management. For in vitro diagnostic use. In the [place], only for use under an Emergency Use Authorization. In the [place], this test has not been FDA cleared or approved; this test has been authorized by FDA under an EUA for use by authorized laboratories; use by laboratories certified under the CLIA, 42 U.S.C. ?263a, that meet requirements to perform moderate, high, or waived complexity tests and at the Point of Care (POC), i.e., in patient care settings operating under a CLIA Certificate of Waiver, Certificate of Compliance, or Certificate of Accreditation.This test has been authorized only for the detection of proteins from SARS-CoV-2, not for any other viruses or pathogens; and, in the [place], this test is only authorized for the duration of the declaration that circumstances exist justifying the authorization of emergency use of in vitro diagnostics for detection and/or diagnosis of the virus that causes COVID-19 under Section 564(b)(1) of the Act, 21 U.S.C. ? 360bbb-3(b)(1), unless the authorization is terminated or revoked sooner. Performed By: #### 1 [id number], [id number] ####[facility] [address] [place] [address] Troponin 0 Hr.on 07-31-2023 Troponin 3.50 pg/mL Low 10.10-27.10 [facility] Comment on above: Result Comment: The 95% CI (Confidence Interval) PPV (Positive Predictive Value) for myocardial infarction in females is 38 pg/mL, in males 51 pg/mL. The results should be used in conjunction with clinical conditions of myocardial infarction.(Access High Sensitivity Troponin I Instructions For Use, Fonality, January 2018) Performed By: #### 1 2695955, 73520771, 5454291, 3372695, 8307853, 2266014, 34650027 ####[address] [place] [address] Troponin 3 Hr.on 07-31-2023 Troponin 3.60 pg/mL Low 10.10-27.10 [facility] Comment on above: Result Comment: The 95% CI (Confidence Interval) PPV (Positive Predictive Value) for myocardial infarction in females is 38 pg/mL, in males 51 pg/mL. The results should be used in conjunction with clinical conditions of myocardial infarction.([employer] High Sensitivity Troponin I Instructions For Use, Fonality, January 2018) Performed By: #### 1 [id number] ####[facility] [address] [place] [address] Troponin 6 Hr.on 07-31-2023 Troponin 3.50 pg/mL Low 10.10-27.10 [facility] Comment on above: Result Comment: The 95% CI (Confidence Interval) PPV (Positive Predictive Value) for myocardial infarction in females is 38 pg/mL, in males 51 pg/mL. The results should be used in conjunction with clinical conditions of myocardial infarction.([employer] High Sensitivity Troponin I Instructions For Use, Fonality, January 2018) Performed By: #### 1 [id number] ####[facility] [address] [place] [address] Troponin 9 Hr.on 07-31-2023 Troponin 4.50 pg/mL Low 10.10-27.10 [facility] Comment on above: Result Comment: The 95% CI (Confidence Interval) PPV (Positive Predictive Value) for myocardial infarction in females is 38 pg/mL, in males 51 pg/mL. The results should be used in conjunction with clinical conditions of myocardial infarction.([employer] High Sensitivity Troponin I Instructions For Use, Manjula Cecilia, January 2018) Performed By: #### 1 [id number] ####[facility] [address] [facility] [place] [address] UA With Cult Reflexon 2023 Bacteria LM Ql (Urine sed) TRACE Normal Trace [facility] Comment on above: Performed By: #### 1 [id number] ####[facility] At[address] [facility] [place] [address] Bilirubin Ql (U) Negative Normal Negative [facility] Comment on above: Performed By: #### 1 [id number] ####[address] [address] Clarity (U) CLEAR Normal Clear [facility] Comment on above: Performed By: #### 1 [id number] ####[facility] [address] [facility] [place] [address] Color (U) YELLOW Normal Yellow [facility] Comment on above: Performed By: #### 1 [id number] ####[facility] [address] [facility] [place] [address] Epithelial cells.squamous LM.HPF (Urine sed) [#/Area] 0-2 Normal 0-[address] [facility] Comment on above: Performed By: #### 1 [id number] ####[facility] [address] [facility] [place] [address] Glucose Test strip (U) [Mass/Vol] Negative Normal Negative [facility] Comment on above: Performed By: #### 1 [id number] ####[facility] [address] [facility] [place] [address] Hemoglobin Ql (U) Negative Normal Negative [facility] Comment on above: Performed By: #### 1 [id number] ####[facility] [address] [place] [address] Ketones (U) [Mass/Vol] Negative Normal Negative [facility] Comment on above: Performed By: #### 1 1377399 ####[address] [place] [address] [place].plasma/[place].R BC (Bld) [Mass ratio] 0-3 Normal 0-3 [facility] Comment on above: Performed By: #### 1 [id number] ####[address] [address] Nitrite Ql (U) Negative Normal Negative [facility] Comment on above: Performed By: #### 1 4953607 ####[address] [address] pH (U) 7.0 [pH] Invalid Interpretation Code 5.0-9.0 [facility] Comment on above: Performed By: #### 1 0190664 ####[address] [address] Protein (U) [Mass/Vol] Negative Normal Negative [facility] Comment on above: Performed By: #### 1 6289533 ####[address] [address] Specific gravity (U) [Rel density] 1.015 Invalid Interpretation Code 1.005-1.030 [facility] Comment on above: Performed By: #### 1 [id number] ####[address] [address] Type of Urine collection method Clean Catch Normal [facility] Comment on above: Performed By: #### 1 [id number] ####[address] [address] Urobilinogen Qn (U) 0.2 {Macie'U}/dL Normal 0.0-1.0 [facility] Comment on above: Performed By: #### 1 9452324 ####[address] [address] WBC Auto Ql (U) Negative Normal Negative [facility] Comment on above: Performed By: #### 1 3517439 ####[facility] [address] [place] [address] WBC LM.HPF (Urine sed) [#/Area] 0-5 Normal 0-5 [facility] Comment on above: Performed By: #### 1 4210483 ####[facility] [address] [place] [address] XR Chest Single Viewon 07-31 XR Chest Single View Normal Fish er [facility] eGFRon 07-31-2023 eGFR 35 mL/min/1.73 m2 Low >=59 [facility] Comment on above: Order Comment: Order added by Discern Expert. Performed By: #### 1 5493535, [id number], 2362543, 2543643, 2217031, 4459117, 84003254 ####[address] [address] CBC w/ Auto Diffon 4 Basophil Absolute 0.0 E9/L Normal 0.0-0.2 [facility] Comment on above: Performed By: #### 1 7574546, 66285828, 7081415, 1842372, 3636383, 9613564, 61605727 ####[address] [place] [address] Basophils/100 WBC (Bld) 0.9 % Normal 0.0-2.0 [facility] Comment on above: Performed By: #### 1 6578239, 30641233, 8951075, 6367842, 5166216, 3340640, 16391810 ####[facility] [address] [place] [address] Eos Absolute 0.2 E9/L Normal 0.0-0.5 [facility] Comment on above: Performed By: #### 1 8644001, 48017805, 8944092, 3774698, 2554978, 4821753, 67285450 ####[address] [place] [address] Eosinophils/100 WBC (Bld) 4.1 % Normal 0.0-8.0 [facility] Comment on above: Performed By: #### 1 1093030, 51862378, 5904107, 2123056, 6954717, 0001160, 23535533 ####[address] [place] [address] Erythrocyte distribution width (RBC) [Ratio] 14.7 % High 10.9-14.2 [facility] Comment on above: Performed By: #### 1 2539216, 58495571, 1021258, 5675665, 7355829, 5086573, 13269192 ####[address] [place] [address] Hematocrit (Bld) [Volume fraction] 38.0 % Normal 34.0-46.0 [facility] Comment on above: Performed By: #### 1 3466952, 02995762, 7776992, 1101522, 5629220, 7040808, 33679473 ####[address] Hemoglobin (Bld) [Mass/Vol] 12.5 g/dL Normal 12.0-16.0 [facility] Comment on above: Performed By: #### 1 9149852, 71207276, 2038584, 7902261, 3242517, 0753105, 81178201 ####[address] [address] Lymph Absolute 1.7 E9/L Normal 1.0-4.0 [facility] Comment on above: Performed By: #### 1 3524442, 92658664, 3828004, 6942144, 4790279, 7135575, 74303827 ####[address] [place] [address] Lymphocytes/100 WBC (Bld) 30.5 % Normal 14.0-50.0 [facility] Comment on above: Performed By: #### 1 4749024, 87324721, 3156813, 4575228, 0200425, 3807407, 44248236 ####[address] [place] [address] MCH (RBC) [Entitic mass] 29.2 pg Normal 27.0-34.0 [facility] Comment on above: Performed By: #### 1 3219523, 95262427, 5791762, 8006076, 2590789, 9690437, 56910339 ####[address] MCHC (RBC) [Mass/Vol] 32.9 g/dL Normal 31.4-36.0 [facility] Comment on above: Performed By: #### 1 1557423, 71232017, 8742354, 3048094, 5076433, 2826948, 48449415 ####[address] MCV (RBC) [Entitic vol] 89.0 fL Normal 80.0-100.0 [facility] Comment on above: Performed By: #### 1 7910599, 51735771, 3677028, 5666365, 2600697, 1257579, 88920081 ####[address] Ector Absolute 0.4 E9/L Normal 0.2-1.[address] [facility] Comment on above: Performed By: #### 1 4024545, 74905590, 0299664, 2179657, 5206229, 7638877, 14455009 ####[address] Monocytes/100 WBC (Bld) 7.8 % Normal 4.0-14.0 F [facility] Comment on above: Performed By: #### 1 3333773, 63091711, 2660528, 1694353, 6208713, 8355601, 31433419 ####[address] [address] Neutro Absolute 3.2 E9/L Normal 2.0-7.5 [facility] Comment on above: Performed By: #### 1 4603474, 00071012, 0669908, 1675289, 8289617, 6986581, 68024459 ####[facility] [address] [place] [address] Neutro Auto 56.7 % Normal 36.0-75.0 [facility] Comment on above: Performed By: #### 1 6661927, 10111537, 3718712, 6456307, 5234262, 3201052, 95222259 ####[address] [place] [address] Platelet 215.0 E9/L Normal 150.0-500.0 [facility] Comment on above: Performed By: #### 1 3339511, 50996740, 3733268, 0175599, 1996019, 5393088, 66742401 ####[address] [address] Platelet mean volume (Bld) [Entitic vol] 7.1 fL Normal 6.4-10.8 [facility] Comment on above: Performed By: #### 1 8794544, 52989056, 1027514, 0446460, 3081800, 1806304, 14497022 ####[address] [address] RBC 4.3 E12/L Normal 4.3-5.9 [facility] Comment on above: Performed By: #### 1 4759165, 30550309, 9437292, 0214385, 5071362, 9300815, 82715588 ####[address] [place] [address] WBC 5.6 E9/L Normal 4.0-11.0 [facility] Comment on above: Performed By: #### 1 5115988, 28515339, 2802764, 1878380, 0594422, 6527466, 84457950 ####[address] [place] [address] CHEMISTRYOrdered By: SYSTEM SYSTEM on 07-30-2023 Albumin [Mass/Vol] 4.1 g/dL Normal 3.3 - 5.0 gm/dL Remisol Chem Albumin/Globulin [Mass ratio] 1.4 {ratio} Normal 1.1 - 2.2 Remisol Chem Alk Phos 83 [iU]/d Normal 21 - 98 Int._Unit/L Remisol Chem ALT 9 [iU]/d Normal 6 - 46 Int._Unit/L Remisol Chem Anion gap [Moles/Vol] 15 mmol/L Normal 6 - 16 mEq/L Remisol Chem AST 15 [iU]/d Normal 5 - 43 Int._Unit/L Remisol Chem Bili Direct 0.1 mg/dL Normal 0.0 - 0.4 mg/dL Remisol Chem Bili Indirect 0.3 mg/dL Normal 0.1 - 0.9 mg/dL Remisol Chem Bili Total 0.4 mg/dL Normal 0.0 - 1.1 mg/dL Remisol Chem Calcium [Mass/Vol] 10.0 mg/dL Normal 8.9 - 11. 1 mg/dL [facility] Chem Chloride [Moles/Vol] 101 mmol/L Normal 101 - 1 11 mmol/L Remisol Chem CO2 [Moles/Vol] 31 mmol/L Normal 21 - 31 mmol/L Remisol Chem Creatinine [Mass/Vol] 1.5 mg/dL High 0.5 - 1.3 mg/dL Remisol Chem eGFR 35 mL/min/1.73 m2 Low >=59mL/min / 1.73 m2 Remisol Chem Globulin (S) [Mass/Vol] 3.0 g/dL Normal 1.4 - 4.0 gm/dL Rem[facility] Chem Glucose [Mass/Vol] 140 mg/dL Normal 55 - 199 mg/dL Remisol Chem Lactic Acid Lvl 2.4 mmol/L High 0.5 - 2.2 mmol/L Remisol Chem Potassium [Moles/Vol] 4.0 mmol/L Normal 3.5 - 5.3 mmol/L Remisol Chem Protein [Mass/Vol] 7.1 g/dL Normal 6.0 - 7.8 gm/dL Remisol Chem Sodium [Moles/Vol] 143 mmol/L Normal 135 - 145 mmol/L Remisol Chem Urea nitrogen [Mass/Vol] 20 mg/dL Normal 5 - 21 mg/dL Remisol Chem Urea nitrogen/Creatinine [Mass ratio] 13 mg/mg Normal 10 - 20 Remisol Chem CHEMISTRYOrdered By: Damion king on 07-30-2023 Natriuretic peptide B (Bld) [Mass/Vol] 114 pg/mL High 5 - 80 pg/mL [facility] HemeManSS CHEMISTRYOrdered By: Lab ROP User on 07-30-2023 Glucose [Mass/Vol] 127 mg/dL High 55 - 99 mg/dL [facility] POC Subsection Comment on above: Result Comment: Michelle PACHECO POC Device SN [id number] Invalid Interpretation Code [facility] POC Subsection POC User ID [id number] 1 Invalid Interpretation Code [facility] POC Subsection POC Username DREAD CHURCH Invalid Interpretation Code [facility] POC Subsection Capillary Glucose POCon 07-08 Glucose [Mass/Vol] 127 mg/dL High 55-99 [facility] Comment on above: Result Comment: Michelle PACHECO Performed By: #### 2 [id number] ####[facility] [address] [place] [address] Consent for Treatmenton 07-08 Consent for Treatment [id number] Normal [facility] HEMATOLOGYOrdered By: SYSTEM SYSTEM on 07-30-2023 Basophil Absolute 0.0 E9/L Normal 0.0 - 0.2 E9/L Remisol Heme Basophils/100 WBC (Bld) 0.9 % Normal 0.0 - 2.0 % Remisol Heme Eos Absolute 0.2 E9/L Normal 0.0 - 0.5 E9/L Remisol Heme Eosinophils/100 WBC (Bld) 4.1 % Normal 0.0 - 8.0 % Remisol Heme Erythrocyte distribution width (RBC) [Ratio] 14.7 % High 10.9 - 14.2 % Remisol Heme Hematocrit (Bld) [Volume fraction] 38.0 % Normal 34.0 - 46.0 % Remisol Heme Hemoglobin (Bld) [Mass/Vol] 12.5 g/dL Normal 12.0 - 16.0 gm/dL Rem[facility] Heme Lymph Absolute 1.7 E9/L Normal 1.0 - 4.0 E9/L Remisol Heme Lymphocytes/100 WBC (Bld) 30.5 % Normal 14.0 - 50.0 % Remisol Heme MCH (RBC) [Entitic mass] 29.2 pg Normal 27. 0 - 34.0 pg Remisol Heme MCHC (RBC) [Mass/Vol] 32.9 g/dL Normal 31.4 - 36.0 gm/dL Remisol Heme MCV (RBC) [Entitic vol] 89.0 fL Normal 80.0 - 100.0 fL Remisol Heme Ector Absolute 0.4 E9/L Normal 0.2 - 1.0 E9/L Remisol Heme Monocytes/100 WBC (Bld) 7.8 % Normal 4.0 - 14.0 % Remisol Heme Neutro Absolute 3.2 E9/L Normal 2.0 - 7.5 E9/L Rem[facility] Heme Neutro Auto 56.7 % Normal 36.0 - 75.0 % Rem[facility] Heme Platelet 215.0 E9/L Normal 150.0 - 500.0 E9/L Remisol Heme Platelet mean volume (Bld) [Entitic vol] 7.1 fL Normal 6.4 - 10.8 fL Remisol Heme RBC 4.3 E12/L Normal 4.3 - 5.9 E12/L Remisol Heme WBC 5.6 E9/L Normal 4.0 - 11.0 E9/L Remisol Heme No Panel InformationOrdered By: STEPHANIEPROCESSSERVER MICROBIOLOGY on 07-30-2023 Blood Culture Charcoal No growth at 2 da ys. Final to follow at 7 days. [facility] Pre-Arrival Noteon Pre-Arrival Note Normal [facility] URINALYSISOrdered By: Damion Grigsby on 07-30-2023 Bacteria LM Ql (Urine sed) Trace /HPF Normal Trace/HPF [facility] UA Auto SS Bilirubin Ql (U) Negative (07/30/23 10:50 PM) Normal Negative FT UA Auto SS Clarity (U) Clear (07/30/23 10:50 PM) Normal Clear FT UA Auto SS Color (U) Yellow (07/30/23 10:50 PM) Normal Yellow FT UA Auto SS Epithelial cells.squamous LM.HPF (Urine sed) [#/Area] 0-2 /HPF Normal 0-2/HPF [facility] UA Aut o SS Glucose Test strip (U) [Mass/Vol] Negative (07/30/23 10:50 PM) Normal Negative [facility] UA Auto SS Hemoglobin Ql (U) Negative (07/30/23 10:50 PM) Normal Negative [facility] UA Auto SS Ketones (U) [Mass/Vol] Negative (07/30/23 10:50 PM) Normal Negative [facility] UA Auto SS [place].plasma/[place].R BC (Bld) [Mass ratio] 0-3 /HPF Normal 0-3/HPF FT UA Au to SS Nitrite Ql (U) Negative (07/30/23 10:50 PM) Normal Negative [facility] UA Auto SS pH (U) 7.0 *NA* (07/30/23 10:50 PM) Invalid Interpretation Code 5.0 - 9.0 [facility] UA Auto SS Protein (U) [Mass/Vol] Negative (07/30/23 10:50 PM) Normal Negative [facility] UA Auto SS Specific gravity (U) [Rel density] 1.015 *NA* (07/30/23 10:50 PM) Invalid Interpretation Code 1.005 - 1.030 FT UA Auto SS UA Spec Desc Clean Catch (07/30/23 10:50 PM) Normal FT UA Auto SS Urobilinogen Qn (U) 0.1981320 {Macie'U}/dL Normal 0.0 - 1.0 EU/dL [facility] UA Auto SS WBC Auto Ql (U) Negative (07/30/23 10:50 PM) Normal Negative [facility] UA Auto SS WBC LM.HPF (Urine sed) [#/Area] 0-5 /HPF Normal 0-5/HPF [facility] UA Auto SS Prison Recordson 12-31 Prison Records [id number]# [id number]:[id number] Normal [facility] C Urineon 12-19-2022 Bacteria identified Cx Nom (U) Normal [facility] Comment on above: Performed By: #### 1 [id number], 45338036, 6732281 ####[facility] [address] [place] [address] CHEMISTRYOrdered By: Lab ROP User on 12-17-2022 Glucose [Mass/Vol] 119 mg/dL High 55 - 99 mg/dL [facility] POC Subsection Comment on above: Result Comment: Yvonne jl Meter POC Device SN [id number] Invalid Interpretation Code [facility] POC Subsection POC User ID [id number] Invalid Interpretation Code [facility] POC Subsection POC Username EJ SIMS Invalid Interpretation Code [facility] POC Subsection Capillary Glucose POCon 12-04 Glucose [Mass/Vol] 119 mg/dL High 55-99 [facility] Comment on above: Result Comment: Yvonne jl Meter Performed By: #### 2 [id number] ####[facility] [address] [place] [address] PTH [place] 12-17-2022 Parathyrin.intact [Mass/Vol] 42 pg/mL Invalid Interpretation Code [facility] Comment on above: Result Comment: Perf ormed at: [facility] [address] [id number] PhD Jake Edwards Performed By: #### 1 [id number] ####[facility] [address] [place] [address] CBC w/Indiceson 12-16-2022 Erythrocyte distribution width (RBC) [Ratio] 14.4 % High 10.9-14.2 [facility] Comment on above: Performed By: #### 2 571713, 8098429, 1364935, 428654037, 1919868, 53760421, 17254125, 3945841, 90811142 ####[facility] [address] [place] [address] Hematocrit (Bld) [Volume fraction] 30.9 % Low 34.0-46.0 [facility] Comment on above: Performed By: #### 2 787623, 8368946, 4499634, 378994602, 6890567, 54098103, 57579913, 3166938, 42340266 ####[facility] [address] [place] [address] Hemoglobin (Bld) [Mass/Vol] 10.4 g/dL Low 12.0-16.0 [facility] Comment on above: Performed By: #### 2 513567, 4579449, 7872046, 840592218, 2566967, 46773429, 44571535, 6092086, 79692081 ####[facility] [address] [place] [address] MCH (RBC) [Entitic mass] 30.7 pg Normal 27.0-34.0 [facility] Comment on above: Performed By: #### 2 400463, 5551782, 1396732, 936117764, 1597968, 83358580, 97489670, 8244678, 02279297 ####[address] [place] [address] MCHC (RBC) [Mass/Vol] 33.7 g/dL Normal 31.4-36.0 [facility] Comment on above: Performed By: #### 2 376786, 3169541, 1284242, 168847890, 6092179, 04871278, 77573772, 4429401, 78139339 ####[address] [address] MCV (RBC) [Entitic vol] 90.9 fL Normal 80.0-100.0 [facility] Comment on above: Performed By: #### 2 188244, 9191628, 2537929, 464704712, 1991182, 12143395, 68639831, 2983810, 32633668 ####[address] [place] [address] Platelet mean volume (Bld) [Entitic vol] 7.0 fL Normal 6.4-10.8 [facility] Comment on above: Performed By: #### 2 103316, 5589062, 2676587, 344822412, 6658319, 91451038, 61482067, 9587075, 22388281 ####[address] [place] [address] Platelets (Bld) [#/Vol] 264.0 E9/L Normal 150.0-500.0 [facility] Comment on above: Performed By: #### 2 882422, 8329647, 2625450, 451108263, 1287580, 47383401, 12860488, 4870069, 11930898 ####[facility] [address] [place] [address] RBC (Bld) [#/Vol] 3.4 E12/L Low 4.3-5.9 [facility] Comment on above: Performed By: #### 2 261608, 8300302, 8434088, 650765996, 2794379, 48524841, 96014658, 4265719, 32693897 ####[facility] [address] [place] [address] WBC corrected for nucl RBC Auto (Bld) [#/Vol] 4.8 E9/L Normal 4.0-11.0 [facility] Comment on above: Performed By: #### 2 881765, 8578434, 1479613, 313683018, 6870256, 68819449, 13086145, 2258394, 37078796 ####[facility] [address] [place] [address] CHEMISTRYOrdered By: Yane ROP User on 12-16-2022 Glucose [Mass/Vol] 155 mg/dL High 55 - 99 mg/dL [facility] POC Subsection Comment on above: Result Comment: Yvonne jl Meter POC Device SN [id number] Invalid Interpretation Code [facility] POC Subsection POC User ID [id number] Invalid Interpretation Code [facility] POC Subsection POC Username EJ SIMS Invalid Interpretation Code [facility] POC Subsection Glucose [Mass/Vol] 127 mg/dL High 55 - 99 mg/dL [facility] POC Subsection Comment on above: Result Comment: Yvonne jl Meter POC Device SN [id number] Invalid Interpretation Code [facility] POC Subsection POC User ID [id number] Invalid Interpretation Code [facility] POC Subsection POC Username OUSMANE HWANG Invalid Interpretation Code [facility] POC Subsection CHEMISTRYOrdered By: Kerry Maravilla on 12-16-2022 Albumin Elph (U) [Mass fraction] mg/dL Invalid Interpretation Code [facility] Remisol Creatinine (U) [Mass/Vol] 44.5 mg/dL Invalid Interpretation Code [facility] Remisol U Prot/Creat Ratio [facility] Invalid Interpretation Code 0.00 - 200.00 [facility] [...] 40 ng/mL Normal 11 - 307 ng/mL [facility] Remisol GFR/1.73 sq M.predicted among non-blacks MDRD [...] mg/dL Normal 1.9 - 4 .6 mg/dL [facility] Remisol Potassium [Moles/Vol] 3.6 mmol/L Normal 3.5 - 5.3 mmol/L [facility] Remisol Sodium [Moles/Vol] 142 mmol/L Normal 135 - 145 mmol/L [facility] Remisol Transferrin [Mass/Vol] 190 mg/dL Low 200 - 370 mg/dL FT Remisol Urate [Mass/Vol] 5.8 mg/dL Normal 2.2 - 7.4 mg/dL FT Remisol Urea nitrogen [Mass/Vol] 24 mg/dL High 5 - 21 mg/dL [facility] Remisol Urea nitrogen/Creatinine [Mass ratio] 17 mg/mg Normal 10 - 20 [facility] Remisol Capillary Glucose POCon 12-04 Glucose [Mass/Vol] 155 mg/dL High 55-99 [facility] Comment on above: Result Comment: Yvonne jl Meter Performed By: #### 2 [id number] ####[facility] [address] [place] [address] Glucose [Mass/Vol] 127 mg/dL High 55-99 [facility] Comment on above: Result Comment: Yvonne jl Meter Performed By: #### 2 [id number] ####[facility] [address] [place] [address] Family Medicine Office/Clini c Noteon 12-16-2022 Family Medicine Office/Clinic Note Normal [facility] Comment on above: Result Comment: Elec tronically Signed By: Leigh SELBY, Nadege Dong\.br\Date and Time Signed: 12/16/22 15:12 EDT Ferritinon 12-16-2022 Ferritin [Mass/Vol] 40 ng/mL Normal 11-307 [facility] Comment on above: Result Comment: NORM ALS MEN <30 YRS 16-132 ng/mL MEN >30 YRS 8-338 ng/mL WOMEN (PREMEN) 6-104 ng/mL WOMEN (POSTMEN) 12-210 ng/mL Performed By: #### 2 311090, 3098846, 1625009, 728403730, 1013114, 53094110, 84714180, 9387169, 60563539 ####[facility] [address] [place] [address] HEMATOLOGYOrdered By: Leanne Carrillo on 12-16-2022 Erythrocyte [...] 3.4 E12/L Low 4.3 - 5.9 E12/L FT HemeAutoSS WBC corrected for nucl RBC Auto (Bld) [#/Vol] 4.8 E9/L Normal 4.0 - 11.0 E9/L FT HemeAutoSS Ironon 12-16-2022 Iron [Mass/Vol] 39 microgram/dL Normal 35-153 [facility] Comment on above: Performed By: #### 2 430003, 4219399, 4214422, 512472432, 2290675, 42002892, 08862926, 2342390, 85806070 ####[facility] [address] [place] [address] Laboratory - Microbiology an d Antimicrobial susceptibilityOrdered By: Jasmin Desai on 12-16-2022 Bacteria identified Cx Nom (U) >100,000 cfu/ml Streptococcus species 4,000 cfu/ml Mixed skin contaminants [facility] Magnesiumon 12-16-2022 Magnesium [Mass/Vol] 1.7 mg/dL Normal 1.3-2.4 [facility] Comment on above: Performed By: #### 2 786568, 4403407, 3256359, 203630434, 7254900, 29560267, 16806053, 6262701, 09246448 ####[facility] [address] [place] [address] Prison Recordson 12-16 Prison Records [id number]:127 Normal [facility] Prison Records [id number] #[id number]:127 Normal [facility] Reference Laboratory Testing Ordered By: Safehis DomainUser on 12-16-2022 Parathyrin.intact [Mass/Vol] 42 pg/mL Invalid Interpretation Code 15-65pg/mL [facility] SendOutsSS Comment on above: Result Comment: Perf ormed at: [facility] [address] [id number] PhD Jake Edwards Renal Panelon 12-16-2022 Albumin [Mass/Vol] 2.9 g/dL Low 3.3-5.0 [facility] Comment on above: Performed By: #### 2 382007, 4307915, 7663255, 964638196, 5008283, 86767755, 34198185, 4099624, 54653056 ####[facility] [address] [place] [address] Anion gap [Moles/Vol] 12 mmol/L Normal 6-16 [facility] Comment on above: Performed By: #### 2 388284, 0675591, 8375757, 575218431, 0394694, 78249178, 11579061, 0780031, 96270454 ####[facility] [address] [place] [address] Calcium [Mass/Vol] 8.9 mg/dL Normal 8.9-11.1 [facility] Comment on above: Performed By: #### 2 032182, 9027180, 4623418, 312847642, 5008314, 24710157, 94543771, 3812374, 27763960 ####[facility] [address] [place] [address] Chloride [Moles/Vol] 106 mmol/L Normal 101-111 [facility] Comment on above: Performed By: #### 2 954148, 6492225, 8707897, 713956416, 3229423, 36843604, 56470142, 2473221, 98842489 ####[facility] [address] [place] [address] CO2 [Moles/Vol] 28 mmol/L Normal 21-31 [facility] Comment on above: Performed By: #### 2 209778, 9130935, 3286461, 902333028, 5231710, 28146945, 18453319, 4200259, 40343938 ####[facility] [address] [place] [address] Creatinine [Mass/Vol] 1.4 mg/dL High 0.5-1.3 [facility] Comment on above: Performed By: #### 2 695693, 8650902, 4257227, 057807920, 0447455, 77463674, 64411242, 8564366, 42648154 ####[facility] [address] [place] [address] Glucose [Mass/Vol] 125 mg/dL Normal 55-199 [facility] Comment on above: Result Comment: If t his glucose result represents a fasting glucose, interpretation should refer to the following reference range: 55-99 mg/dL Performed By: #### 2 173414, 9120221, 8922213, 088785044, 9690887, 11203234, 75680208, 4623843, 57340778 ####[facility] [address] [place] [address] Phosphate [Mass/Vol] 4.2 mg/dL Normal 1.9-4.6 [facility] Comment on above: Performed By: #### 2 109888, 5358780, 0613891, 338506670, 4457799, 84804759, 81947672, 8151632, 29280042 ####[facility] [address]job[address] [place] [address] Potassium [Moles/Vol] 3.6 mmol/L Normal 3.5-5.3 [facility] Comment on above: Performed By: #### 2 253864, 5936081, 1728855, 682914124, 6219322, 57316533, 55239423, 2894707, 26940872 ####[facility] [address] [place] [address] Sodium [Moles/Vol] 142 mmol/L Normal 135-145 [facility] Comment on above: Performed By: #### 2 315529, 2061270, 4099448, 810321549, 1872628, 86169287, 70383785, 7315734, 82738737 ####[facility] [address] [place] [address] Urea nitrogen [Mass/Vol] 24 mg/dL High 5-21 [facility] Comment on above: Performed By: #### 2 021814, 8974946, 9367462, 655045786, 2590589, 01311916, 40675897, 9117208, 97230730 ####[facility] [address] [place] [address] Urea nitrogen/Creatinine [Mass ratio] 17 No Units Normal 10-20 [facility] Comment on above: Performed By: #### 2 324991, 6341669, 4936682, 192532174, 9002523, 06713457, 95630171, 1396933, 41244870 ####[facility] [address] [place] [address] TIBC Calculatedon 12-16-2022 Iron binding capacity [Mass/Vol] 266 microgram/dL Normal 250-400 [facility] Comment on above: Performed By: #### 2 161228, 3677578, 8757157, 790580837, 2762871, 34565320, 66619847, 2213573, 47206985 ####[facility] [address] [place] [address] Transferrin [Mass/Vol] 190 mg/dL Low 200-370 [facility] Comment on above: Performed By: #### 2 550296, 0548085, 6565707, 755240898, 3857527, 38213872, 69883992, 8092892, 13951792 ####[facility] [address] [place] [address] U Protein/Creat Ratioon 12-04 Albumin Elph (U) [Mass fraction] <6.0 Invalid Interpretation Code [facility] Comment on above: Result Comment: The reference range and other method performance specifications have not been established for this test; results should be integrated into the clinical context for interpretation. Performed By: #### 1 315847112, 93581515, 4890336 ####[address] [address] Creatinine (U) [Mass/Vol] 44.5 mg/dL Invalid Interpretation Code [facility] Comment on above: Result Comment: The reference range and other method performance specifications have not been established for this test; results should be integrated into the clinical context for interpretation. Performed By: #### 1 478767732, 37635461, 9882285 ####[address] [address] U Prot/Creat Ratio [facility] Invalid Interpretation Code .00-200.00 [facility] Comment on above: Performed By: #### 1 890330660, 23716273, 8515151 ####[facility] [address] [place] [address] UA With Cult Reflexon 2022 Bacteria LM Ql (Urine sed) 1+ /HPF Abnormal Trace [facility] Comment on above: Performed By: #### 1 384697866, 46624457, 4136649 ####[address] [place] [address] Bilirubin Ql (U) Negative Normal Negative [facility] Comment on above: Performed By: #### 1 635799648, 32677814, 0864343 ####[facility] [address] [place] [address] Clarity (U) CLEAR Normal Clear [facility] Comment on above: Performed By: #### 1 318325628, 42922574, 8751430 ####[facility] [address] [place] [address] Color (U) YELLOW Normal Yellow [facility] Comment on above: Performed By: #### 1 957066969, 58695134, 1282580 ####[facility] [address] [place] [address] Epithelial cells.squamous LM.HPF (Urine sed) [#/Area] 0-2 Normal 0-[address] [facility] Comment on above: Performed By: #### 1 700212220, 70213909, 7494259 ####[facility] [address] [place] [address] Glucose Test strip (U) [Mass/Vol] Negative Normal Negative [facility] Comment on above: Performed By: #### 1 578171778, 76864121, 0967284 ####[facility] [address] [place] [address] Hemoglobin Ql (U) Negative Normal Negative [facility] Comment on above: Performed By: #### 1 875938653, 67569750, 3699631 ####[facility] [address] [place] [address] Ketones (U) [Mass/Vol] Negative Normal Negative [facility] Comment on above: Performed By: #### 1 420003900, 79819488, 7106346 ####[facility] [address] [place] [address] [place].plasma/[place].R BC (Bld) [Mass ratio] 0-3 Normal 0-3 [facility] Comment on above: Performed By: #### 1 071316261, 17543495, 9110606 ####[facility] [address] [place] [address] Nitrite Ql (U) Negative Normal Negative [facility] Comment on above: Performed By: #### 1 278069378, 78157986, 2710444 ####[place] [address] pH (U) 6.0 [pH] Invalid Interpretation Code 5.0-9.0 [facility] Comment on above: Performed By: #### 1 650343038, 59988770, 3682256 ####[place] [address] Protein (U) [Mass/Vol] Negative Normal Negative [facility] Comment on above: Performed By: #### 1 480040777, 67600884, 2182335 ####[place] [address] Specific gravity (U) [Rel density] <=1.005 Invalid Interpretation Code 1.005-1.030 [facility] Comment on above: Performed By: #### 1 416261685, 76028970, 2101466 ####[place] [address] Type of Urine collection method Clean Catch Normal [facility] Comment on above: Performed By: #### 1 127191032, 13599850, 4893597 ####[address] [address] Urobilinogen Qn (U) 0.2 {Macie'U}/dL Normal 0.0-1.0 [facility] Comment on above: Performed By: #### 1 917069237, 47145763, 0559415 ####[address] [address] WBC Auto Ql (U) 1+ Abnormal Negative [facility] Comment on above: Performed By: #### 1 905852953, 65934261, 8149705 ####[address] [address] WBC LM.HPF (Urine sed) [#/Area] /[HPF] Abnormal 0-5 [facility] Comment on above: Performed By: #### 1 092871576, 51220200, 5360560 ####[facility] [address] [place] [address] URINALYSISOrdered By: Ghassan Salcido on 12-16-2022 Bacteria [...] AM) Normal Negative [facility] UA Auto SS [place].plasma/[place].R BC (Bld) [Mass ratio] 0-3 /HPF Normal 0-3/HPF [facility] UA Au to SS Nitrite Ql (U) Negative (12/16/22 7:32 AM) Normal Negative [facility] UA Auto SS pH (U) 6.0 *NA* (12/16/22 7:32 AM) Invalid Interpretation Code 5.0 - 9.0 [facility] UA Auto SS Protein (U) [Mass/Vol] Negative (12/16/22 7:32 AM) Normal Negative [facility] UA Auto SS Specific gravity (U) [Rel density] <=1.005 *NA* (12/16/22 7:32 AM) Invalid Interpretation Code 1.005 - 1.030 [facility] UA Auto SS UA Spec Desc Clean Catch (12/16/22 7:32 AM) Normal [facility] UA Auto SS Urobilinogen Qn (U) 0.4899580 {Macie'U}/dL Normal 0.0 - 1.0 EU/dL [facility] UA Auto SS WBC Auto Ql (U) 1+ *ABN* (12/16/22 7:32 AM) Invalid Interpretation Code Negative [facility] UA Auto SS WBC LM.HPF (Urine sed) [#/Area] /[HPF] Invalid Interpretation Code 0-5/HPF [facility] UA Auto SS Uric Acidon 12-16-2022 Urate [Mass/Vol] 5.8 mg/dL Normal 2.2-7.4 [facility] Comment on above: Performed By: #### 2 390371, 6397446, 5335342, 681623124, 9814799, 49124630, 83327991, 4321119, 80601175 ####[facility] [address] [place] [address] Vitamin D 25 Hydroxyon 12-16 25-hydroxyvitamin D3 [Mass/Vol] 43.0 ng/mL Normal 30.0-100.0 [facility] Comment on above: Order Comment: Dx pe r Dr. Yaneth Marshall: I12.9, N18.30, E11.22, N25.81, M10.9, D63.1, E83.42 Result Comment: Vit laureano D deficiency has been defined as a level of serum 25-OH vitamin D less than 20 ng/mL (1,2) by the [employer] of [employer] and an Endocrine Society practice guideline. The Endocrine Society further defined vitamin D insufficiency as a level between 21 and 29 ng/mL (2). 1. IOM ([place] of [employer]). 2010. Dietary reference intakes for calcium and D. [place]: The National Academies Press. 2. Benjamín MF, Vikram GOSS, Kira HERNANDEZ, et al. Evaluation, treatment, and prevention of vitamin D deficiency: an Endocrine Society clinical practice guideline. JCEM. 2010; 96 (7):1911-30. Performed By: #### 2 237511, 1811512, 8964920, 094639352, 3558405, 79243248, 29177731, 8568075, 11533140 ####[facility] [address] [place] [address] eGFRon 12-16-2022 GFR/1.73 sq M.predicted among non-blacks MDRD (S/P/Bld) [Vol rate/Area] 39 mL/min/1.73 m2 Low >=59 [facility] Comment on above: Order Comment: Order added by Discern Expert. Result Comment: Network Applications Specialist terrell kidney disease could be indicated at eGFR's of less than 60 mL/min/1.73m2. Kidney failure is indicated at less than 15 mL/min/1.73m2. Performed By: #### 2 956660, 9726339, 2006412, 079047519, 9542239, 90976697, 20171806, 8332641, 41523329 ####[facility] [address] [place] [address] Capillary Glucose POCon 12-04 Glucose [Mass/Vol] 164 mg/dL High [address] [place] [address] Comment on above: Result Comment: Yvonne jl Meter Performed By: #### 2 56029005 ####[facility] [address] [place] [address] Glucose [Mass/Vol] 126 mg/dL [address] Comment on above: Performed By: #### 2 57121932 ####[facility] [address] [place] [address] Capillary Glucose POCon 12-04 Glucose [Mass/Vol] 178 mg/dL [address] Comment on above: Result Comment: Yvonne jl Meter Performed By: #### 2 71452303 ####[facility] [address] [place] [address] Glucose [Mass/Vol] 108 mg/dL [address] Comment on above: Result Comment: Yvonne jl Meter Performed By: #### 2 73737326 ####[facility] [address] [place] [address] Glucose [Mass/Vol] 182 mg/dL [address] Comment on above: Result Comment: Yvonne jl Meter Performed By: #### 2 62555562 ####[facility] [address] [place] [address] Glucose [Mass/Vol] 126 mg/dL High [address] [place] [address] Comment on above: Result Comment: Yvonne jl Meter Performed By: #### 2 35230255 ####[facility] Gprxy[address] [facility] [place] [address] Glucose [Mass/Vol] 164 mg/dL [address] Comment on above: Result Comment: Yvonne jl Meter Performed By: #### 2 67413835 ####[facility] B[address] [facility] [place] [address] Capillary Glucose POCon 12-04 0 Glucose [Mass/Vol] 155 mg/dL [address] Comment on above: Performed By: #### 2 38111195 ####[facility] [address] [facility] [place] [address] Glucose [Mass/Vol] 162 mg/dL [address] Comment on above: Performed By: #### 2 19392785 ####[facility] [address] [place] [address] Glucose [Mass/Vol] 128 mg/dL [address] Comment on above: Result Comment: Yvonne jl Meter Performed By: #### 2 81592114 ####[facility] [address] [facility] [place] [address] Capillary Glucose POCon Glucose [Mass/Vol] 168 mg/dL [address] Comment on above: Result Comment: Yvonne jl Meter Performed By: #### 2 66938310 ####[facility] Chr[address] [facility] [place] [address] Glucose [Mass/Vol] 166 mg/dL [address] Comment on above: Result Comment: Yvonne jl Meter Performed By: #### 2 63871927 ####[facility] Mwelaryzja[address] [facility] [place] [address] Glucose [Mass/Vol] 137 mg/dL [address] Comment on above: Result Comment: Yvonne jl Meter Performed By: #### 2 74134956 ####[facility] [address] [facility] [place] [address] Glucose [Mass/Vol] 116 mg/dL High 55-99 [facility] Comment on above: Result Comment: No C overage GivenCleaned Meter Performed By: #### 2 20747561 ####[facility] [address] [place] [address] Glucose [Mass/Vol] 208 mg/dL High 55-99 [facility] Comment on above: Result Comment: Insu irais StartedCleaned Meter Performed By: #### 2 92929884 ####[facility] [address] [facility] [place] [address] Capillary Glucose POCon Glucose [Mass/Vol] 134 mg/dL High 55-99 [facility] Comment on above: Result Comment: Yvonne jl Meter Performed By: #### 2 70586793 ####[facility] [address] [place] [address] Glucose [Mass/Vol] 113 mg/dL High 55- [facility] Comment on above: Result Comment: Yvonne jl Meter Performed By: #### 2 42990809 ####[facility] [address] [place] [address] Glucose [Mass/Vol] 117 mg/dL [facility] 55-99 [facility] Comment on above: Result Comment: Yvonne jl Meter Performed By: #### 2 35759670 ####[facility] [address] [place] [address] C Blood Charcoalon Blood Culture Charcoal Normal [facility] Comment on above: Performed By: #### 1 0892792 ####[facility] [address] [place] [address] Blood Culture Charcoal Normal [facility] Comment on above: Performed By: #### 1 5641610 ####[facility] [address] [facility] [place] [address] Capillary Glucose POCon Glucose [Mass/Vol] 211 mg/dL High 55-99 [facility] Comment on above: Result Comment: Yvonne jl Meter Performed By: #### 2 13662988 ####[facility] [address] [place] [address] Glucose [Mass/Vol] 145 mg/dL High 55-99 [facility] Comment on above: Result Comment: Yvonne jl Meter Performed By: #### 2 61642801 ####[facility] E[address] [facility] [place] [address] Glucose [Mass/Vol] 100 mg/dL High 55-99 [facility] Comment on above: Result Comment: Yvonne jl Meter Performed By: #### 2 07497753 ####[facility] Z[address]ro[address] [facility] [place] [address] Glucose [Mass/Vol] 131 mg/dL High 55-99 [facility] Comment on above: Result Comment: Yvonne jl Meter Performed By: #### 2 27210309 ####[facility] [address] [facility] [place] [address] Family Medicine Office/Clini c Noteon 12-10-2022 Family Medicine Office/Clinic Note Normal [facility] Comment on above: Result Comment: Elec tronically Signed By: DIONNA BRIGGS, Kimberly Brand\janis\Date and Time Signed: 12/10/22 07:41 EDT UA With Cult Reflexon 2022 Bacteria LM Ql (Urine sed) TRACE Normal Trace [facility] Comment on above: Performed By: #### 1 [id number] ####[facility] [address] [facility] [place] [address] Bilirubin Ql (U) Negative Normal Negative [facility] Comment on above: Performed By: #### 1 8448656 ####[facility] [address] [place] [address] Clarity (U) CLEAR Normal Clear [facility] Comment on above: Performed By: #### 1 7892082 ####[facility] [address] [place] [address] Color (U) YELLOW Normal Yellow [facility] Comment on above: Performed By: #### 1 4765347 ####[facility] [address] [place] [address] Epithelial cells.squamous LM.HPF (Urine sed) [#/Area] 0-2 Normal 0-[address] [facility] Comment on above: Performed By: #### 1 5899998 ####[facility] [address] [place] [address] Glucose Test strip (U) [Mass/Vol] Negative Normal Negative [facility] Comment on above: Performed By: #### 1 6163105 ####[facility] [address] [place] [address] Hemoglobin Ql (U) Negative Normal Negative [facility] Comment on above: Performed By: #### 1 1830542 ####[facility] [address] [place] [address] Ketones (U) [Mass/Vol] Negative Normal Negative [facility] Comment on above: Performed By: #### 1 8511827 ####[facility] [address] [facility] [place] [address] [place].plasma/[place].R BC (Bld) [Mass ratio] 0-3 Normal 0-3 [facility] Comment on above: Performed By: #### 1 7123654 ####[facility] [address] [facility] [place] [address] Mucus Ql (Urine sed) TRACE Normal [facility] Comment on above: Performed By: #### 1 0465551 ####[facility] [address] [facility] [place] [address] Nitrite Ql (U) Negative Normal Negative [facility] Comment on above: Performed By: #### 1 1488053 ####[place] [address] [facility] [place] [address] pH (U) 6.5 [pH] Invalid Interpretation Code 5.0-9.0 [facility] Comment on above: Performed By: #### 1 9499031 ####[facility] [address] [place] [address] Protein (U) [Mass/Vol] Negative Normal Negative [facility] Comment on above: Performed By: #### 1 4976529 ####[address] [place] [address] Specific gravity (U) [Rel density] 1.010 Invalid Interpretation Code 1.005-1.030 [facility] Comment on above: Performed By: #### 1 9614613 ####[place] [address] Type of Urine collection method Clean Catch Normal [facility] Comment on above: Performed By: #### 1 4995558 ####[place] [address] Urobilinogen Qn (U) 0.2 {Macie'U}/dL Normal 0.0-1.0 [facility] Comment on above: Performed By: #### 1 7551035 ####[place] [address] WBC Auto Ql (U) Negative Normal Negative [facility] Comment on above: Performed By: #### 1 6594256 ####[place] [address] WBC LM.HPF (Urine sed) [#/Area] 0-5 Normal 0-5 [facility] Comment on above: Performed By: #### 1 7401205 ####[place] [address] URINALYSISOrdered By: Carlos daugherty on 12-10-2022 Bacteria [...] PM) Normal Negative [facility] UA Auto SS [place].plasma/[place].R BC (Bld) [Mass ratio] 0-3 /HPF Normal 0-3/HPF FT UA Au to SS Mucus Ql (Urine sed) Trace (12/10/22 1:43 PM) Normal FT UA Auto SS Nitrite Ql (U) Negative [...] FT UA Auto SS Urobilinogen Qn (U) 0.3945939 {Macie'U}/dL Normal 0.0 - 1.0 EU/dL FT UA Auto SS WBC Auto Ql (U) Negative (12/10/22 1:43 PM) Normal Negative [facility] UA Auto SS WBC LM.HPF (Urine sed) [#/Area] 0-5 /HPF Normal 0-5/HPF [facility] UA Auto SS Capillary Glucose POCon 07-0 6 Glucose [Mass/Vol] 202 mg/dL High 55-99 [facility] Comment on above: Result Comment: Yvonne parikh Meter Performed By: #### 2 [id number] ####[facility] [address] [place] [address] Glucose [Mass/Vol] 130 mg/dL High 55-99 [facility] Comment on above: Performed By: #### 2 [id number] ####[facility] [address] [place] [address] Glucose [Mass/Vol] 157 mg/dL [address] Comment on above: Result Comment: Repe at Test Performed By: #### 2 [id number] ####[facility] [address] [place] [address] Glucose [Mass/Vol] 110 mg/dL [address] Comment on above: Performed By: #### 2 [id number] ####[facility] [address] [place] [address] Glucose [Mass/Vol] 129 mg/dL [address] Comment on above: Result Comment: Yvonne jl Meter Performed By: #### 2 [id number] ####[facility] [address] [place] [address] Capillary Glucose POCon -0 Glucose [Mass/Vol] 165 mg/dL [address] Comment on above: Result Comment: Yvonne jl Meter Performed By: #### 2 [id number] ####[facility] [address] [place] [address] Glucose [Mass/Vol] 130 mg/dL [address] Comment on above: Performed By: #### 2 [id number] ####[facility] [address] [place] [address] Glucose [Mass/Vol] 109 mg/dL [address] Comment on above: Performed By: #### 2 [id number] ####[facility] [address] [place] [address] Glucose [Mass/Vol] 126 mg/dL [address] Comment on above: Result Comment: Yvonne jl Meter Performed By: #### 2 [id number] ####[facility] [address] [place] [address] Capillary Glucose POCon 07-0 Glucose [Mass/Vol] 203 mg/dL [address] Comment on above: Performed By: #### 2 [id number] ####[facility] O[address] [facility] [place] [address] Glucose [Mass/Vol] 132 mg/dL High 55-99 [facility] Comment on above: Result Comment: Yvonne jl Meter Performed By: #### 2 [id number] ####[facility] Y[address]pkqrexj[address] [facility] [place] [address] Glucose [Mass/Vol] 80 mg/dL Normal 55-99 [facility] Comment on above: Result Comment: Yvonne jl Meter Performed By: #### 2 [id number] ####[facility] [address]xlym[address] [facility] [place] [address] Glucose [Mass/Vol] 107 mg/dL High 55-99 [facility] Comment on above: Result Comment: Yvonne jl MeterNo Coverage Given Performed By: #### 2 [id number] ####[facility] [address] [place] [address] Capillary Glucose POCon 07-0 Glucose [Mass/Vol] 161 mg/dL High 55-99 [facility] Comment on above: Result Comment: Insu irais StartedCleaned Meter Performed By: #### 2 [id number] ####[facility] Efveahyldi[address] [facility] [place] [address] Glucose [Mass/Vol] 146 mg/dL High 55-99 [facility] Comment on above: Result Comment: Yvonne jl Meter Performed By: #### 2 [id number] ####[facility] Leiberyj[address] [facility] [place] [address] Glucose [Mass/Vol] 74 mg/dL Normal 55-99 [facility] Comment on above: Result Comment: Yvonne jl Meter Performed By: #### 2 [id number] ####[facility] Euqtmlvpsw[address] [facility] [place] [address] Glucose [Mass/Vol] 104 mg/dL High 55-99 [facility] Comment on above: Result Comment: Yvonne jl Meter Performed By: #### 2 [id number] ####[facility] [address] [place] [address] Capillary Glucose POCon Glucose [Mass/Vol] 167 mg/dL [address] Comment on above: Result Comment: Yvonne jl Meter Performed By: #### 2 [id number] ####[facility] Gvetsyhlck[address] [facility] [place] [address] Glucose [Mass/Vol] 150 mg/dL [address] Comment on above: Result Comment: Hour ly Monitoring Performed By: #### 2 [id number] ####[facility] [address] [place] [address] Glucose [Mass/Vol] 150 mg/dL [address] Comment on above: Performed By: #### 2 [id number] ####[facility] On[address]ml[address]qa[address] [place] [address] Glucose [Mass/Vol] 127 mg/dL [address] Comment on above: Result Comment: Yvonne jl Meter Performed By: #### 2 [id number] ####[facility] [address] [place] [address] Capillary Glucose POCon Glucose [Mass/Vol] 125 mg/dL [address] Comment on above: Result Comment: Yvonne jl Meter Performed By: #### 2 [id number] ####[facility] [address] [place] [address] Glucose [Mass/Vol] 120 mg/dL [address] Comment on above: Performed By: #### 2 [id number] ####[facility] [address] [place] [address] Glucose [Mass/Vol] 149 mg/dL [address] Comment on above: Performed By: #### 2 [id number] ####[facility] [address] [facility] [place] [address] Glucose [Mass/Vol] 121 mg/dL [address] Comment on above: Result Comment: Yvonne jl Meter Performed By: #### 2 [id number] ####[facility] [address] [place] [address] BMPon 12-03-2022 Anion gap [Moles/Vol] 8 mmol/L Normal 6-16 [facility] Comment on above: Performed By: #### 2 361856, 0129131, 85280130, 9462656, 3730869, 2218340, 63945454, 5846271 ####[facility] [address] [place] [address] Calcium [Mass/Vol] 9.0 mg/dL Normal 8.9-11.1 [facility] Comment on above: Performed By: #### 2 448991, 3352705, 07204177, 7147934, 6091327, 2342360, 28282744, 3071610 ####[facility] [address] [place] [address] Chloride [Moles/Vol] 108 mmol/L Normal 101-111 [facility] Comment on above: Performed By: #### 2 105136, 4616743, 64934059, 7412575, 4540298, 2859155, 57781172, 1205319 ####[facility] [address] [place] [address] CO2 [Moles/Vol] 29 mmol/L Normal 21-31 [facility] Comment on above: Performed By: #### 2 776352, 7101248, 81394692, 5170294, 3866152, 7103406, 27611449, 8274178 ####[facility] [address] [place] [address] Creatinine [Mass/Vol] 1.1 mg/dL Normal 0.5-1.3 [facility] Comment on above: Performed By: #### 2 848908, 8761778, 45020332, 4483788, 6884087, 0541625, 78440040, 4238858 ####[facility] [address] [place] [address] Glucose [Mass/Vol] 127 mg/dL Normal 55-199 [facility] Comment on above: Result Comment: If t his glucose result represents a fasting glucose, interpretation should refer to the following reference range: 55-99 mg/dL Performed By: #### 2 719819, 8939755, 68623254, 6986173, 4277819, 2110237, 57660632, 4568796 ####[facility] [address] [place] [address] Potassium [Moles/Vol] 3.9 mmol/L Normal 3.5-5.3 [facility] Comment on above: Performed By: #### 2 775967, 2744787, 82278718, 7221699, 7327670, 5242219, 44219799, 5956216 ####[facility] [address] [place] [address] Sodium [Moles/Vol] 141 mmol/L Normal 135-145 [facility] Comment on above: Performed By: #### 2 636555, 9758165, 88596719, 7301018, 1847259, 6869609, 01598182, 8878542 ####[facility] [address] [place] [address] Urea nitrogen [Mass/Vol] 14 mg/dL Normal 5-21 [facility] Comment on above: Performed By: #### 2 008231, 4973460, 45343781, 5051929, 1005192, 7626241, 92208243, 9717707 ####[facility] [address] [place] [address] Urea nitrogen/Creatinine [Mass ratio] 13 No Units Normal 10-20 [facility] Comment on above: Performed By: #### 2 606923, 4087368, 15478811, 9581730, 8843187, 1949357, 50525339, 1642038 ####[facility] [address] [place] [address] Capillary Glucose POCon 06-3 0 Glucose [Mass/Vol] 116 mg/dL High 55-99 [facility] Comment on above: Result Comment: Michelle erickson RN/ Performed By: #### 2 [id number] ####[facility] [address] [place] [address] Glucose [Mass/Vol] 156 mg/dL High 55-99 [facility] Comment on above: Result Comment: Michelle erickson RN/ Performed By: #### 2 [id number] ####[facility] [address] [place] [address] Discharge Note-Nursingon Discharge Note-Nursing Normal Fi [facility] Ferritinon 12-03-2022 Ferritin [Mass/Vol] 42 ng/mL Normal 11-307 [facility] Comment on above: Result Comment: NORM ALS MEN <30 YRS 16-132 ng/mL MEN >30 YRS 8-338 ng/mL WOMEN (PREMEN) 6-104 ng/mL WOMEN (POSTMEN) 12-210 ng/mL Performed By: #### 2 066297, 5999508, 13481255, 3126481, 7229198, 1943771, 83306675, 0335429 ####[facility] [address] [place] [address] Folateon 12-03-2022 Folate [Mass/Vol] 5.1 ng/mL Low >=6.7 [facility] Comment on above: Performed By: #### 2 133442, 7534749, 01013269, 5241261, 6753757, 3527692, 45863988, 3431783 ####[facility] [address] [place] [address] Inpatient Clinical Summaryon 12-03-2022 Inpatient Clinical Summary Normal [facility] Inpatient Patient Summaryon 12-03-2022 Inpatient Patient Summary Normal [facility] Interdisciplinary Note - [place] e Manageron 12-03-2022 Interdisciplinary Note - Concrete Polisher Normal [facility] Comment on above: Result Comment: Elec tronically Signed By: Cornelia TAVAREZ, Mei\.olaf\Date and Time Signed: 12/03/22 10:14 EDT Interdisciplinary Note - José n 12-03-2022 Interdisciplinary Note - OT Normal [facility] Ironon 12-03-2022 Iron [Mass/Vol] 56 microgram/dL Normal 35-153 [facility] Comment on above: Performed By: #### 2 455715, 9421449, 14028847, 8943570, 7431985, 6876795, 12983344, 0278286 ####[facility] [address] [place] [address] LDHon 12-03-2022 LDH [Catalytic activity/Vol] 143 Int._Unit/L Normal 93-218 [facility] Comment on above: Performed By: #### 2 954243, 2939751, 80540523, 0213746, 2091364, 8692068, 41887971, 6914945 ####[facility] [address] [place] [address] Lactic Acidon 12-03-2022 Lactate [Mass/Vol] 1.1 mmol/L Normal 0.5-2.2 [facility] Comment on above: Performed By: #### 2 039586 ####[facility] [address] [place] [address] Message from Medicareon 11-06 Message from Medicare [id number] .00CD:127 Normal [facility] TIBC Calculatedon 12-03-2022 Iron binding capacity [Mass/Vol] 257 microgram/dL Normal 250-400 [facility] Comment on above: Performed By: #### 2 745654, 0201212, 79252101, 2286667, 4375118, 7684773, 38699410, 4725935 ####[facility] [address] [place] [address] Transferrin [Mass/Vol] 184 mg/dL Low 200-370 [facility] Comment on above: Performed By: #### 2 083218, 3989532, 65565010, 3919944, 8705775, 4104339, 83776177, 6313667 ####[facility] [address] [place] [address] Transfer Documentson 023 Transfer Documents [id number] 1.00CD:127 Normal [facility] Vit B12on 12-03-2022 Cobalamin (Vitamin B12) [Mass/Vol] 171 pg/mL Normal 50-1500 [facility] Comment on above: Performed By: #### 2 282072, 2706842, 09889841, 1583347, 0509439, 5985912, 44749006, 7135386 ####[facility] [address] [place] [address] eGFRon 12-03-2022 GFR/1.73 sq M.predicted among non-blacks MDRD (S/P/Bld) [Vol rate/Area] 51 mL/min/1.73 m2 Low >=59 [facility] Comment on above: Order Comment: Order added by Discern Expert. Result Comment: Network Applications Specialist terrell kidney disease could be indicated at eGFR's of less than 60 mL/min/1.73m2. Kidney failure is indicated at less than 15 mL/min/1.73m2. Performed By: #### 2 443502, 8901109, 38153021, 7692487, 8324051, 8633556, 22188072, 4764242 ####[facility] [address] [place] [address] Auto Diffon 12-02-2022 Basophils/100 WBC (Bld) 0.7 % Normal 0.0-2.0 F [facility] Comment on above: Order Comment: Order Added by Discern Expert. Performed By: #### 2 796221, 0010167, 5150053, 64366008, 95593347, 3365043 ####[facility] [address] [place] [address] Basophils/Leukocytes Auto (Bld) [Pure # fraction] 0.1 E9/L Normal 0.0-0.2 [facility] Comment on above: Order Comment: Order Added by Discern Expert. Performed By: #### 2 852739, 6161733, 5123985, 53015033, 80402237, 0055990 ####[address] [place] [address] Eosinophils/100 WBC (Bld) 2.3 % Normal 0.0-8.0 [facility] Comment on above: Order Comment: Order Added by Discern Expert. Performed By: #### 2 499630, 5321574, 6309317, 55159227, 64872095, 0651663 ####[address] [address] Eosinophils/Leukocytes Auto (Bld) [Pure # fraction] 0.2 E9/L Normal 0.0-0.5 [facility] Comment on above: Order Comment: Order Added by Discern Expert. Performed By: #### 2 067106, 7080096, 7213632, 84229673, 48657449, 9783800 ####[address] [address] Lymphocytes/100 WBC (Bld) 18.1 % Normal 14.0-50.0 [facility] Comment on above: Order Comment: Order Added by Discern Expert. Performed By: #### 2 734747, 1548654, 2374029, 05092784, 70812609, 8483175 ####[address] [address] Lymphocytes/Leukocytes Auto (Bld) [Pure # fraction] 1.4 E9/L Normal 1.0-4.0 [facility] Comment on above: Order Comment: Order Added by Discern Expert. Performed By: #### 2 154941, 9375198, 8803854, 29200385, 92691040, 5139699 ####[address] [address] Monocytes/100 WBC (Bld) 6.8 % Normal 4.0-14.0 [facility] Comment on above: Order Comment: Order Added by Discern Expert. Performed By: #### 2 910881, 9911881, 0726672, 09623128, 34435869, 6389193 ####[facility] [address] [place] [address] Monocytes/Leukocytes Auto (Bld) [Pure # fraction] 0.5 E9/L Normal 0.2-1.0 [facility] Comment on above: Order Comment: Order Added by Discern Expert. Performed By: #### 2 183026, 3632389, 4660780, 02817006, 70109174, 4530953 ####[address] [place] [address] Neutrophils/100 WBC (Bld) 72.1 % Normal 36.0-75.0 [facility] Comment on above: Order Comment: Order Added by Discern Expert. Performed By: #### 2 430618, 0064872, 6768823, 11051058, 70718253, 6533087 ####[address] [place] [address] Neutrophils/Leukocytes Auto (Bld) [Pure # fraction] 5.5 E9/L Normal 2.0-7.5 [facility] Comment on above: Order Comment: Order Added by Discern Expert. Performed By: #### 2 563549, 8728929, 3722305, 67489649, 56827847, 5595618 ####[facility] [address] [place] [address] BMPon 12-02-2022 Creatinine [Mass/Vol] 1.2 mg/dL Normal 0.5-1.3 [facility] Comment on above: Performed By: #### 2 978448, 5543981, 7754475, 80613047, 54472451, 7010297 ####[facility] [address] [place] [address] Urea nitrogen [Mass/Vol] 17 mg/dL Normal 5-21 [facility] Comment on above: Performed By: #### 2 586990, 4598545, 4416525, 29290355, 55631583, 3582815 ####[facility] [address] [place] [address] Urea nitrogen/Creatinine [Mass ratio] 14 No Units Normal 10-20 [facility] Comment on above: Performed By: #### 2 290005, 3808198, 0954585, 53891050, 68456185, 8570837 ####[facility] [address] [place] [address] Anion gap [Moles/Vol] 16 mmol/L Normal 6-16 [facility] Comment on above: Performed By: #### 2 285438, 8859565, 8994964, 30006600, 96226285, 5937687 ####[facility] [address] [place] [address] Calcium [Mass/Vol] 9.9 mg/dL Normal 8.9-11.1 [facility] Comment on above: Performed By: #### 2 424621, 2936179, 5757155, 02804753, 11369321, 3973694 ####[facility] [address] [place] [address] Chloride [Moles/Vol] 103 mmol/L Normal 101-111 [facility] Comment on above: Performed By: #### 2 877186, 2071033, 8238933, 30695874, 40346848, 3723937 ####[facility] [address] [place] [address] CO2 [Moles/Vol] 27 mmol/L Normal 21-31 [facility] Comment on above: Performed By: #### 2 825443, 0841611, 5777371, 61045037, 26967572, 3708316 ####[facility] [address] [place] [address] Glucose [Mass/Vol] 134 mg/dL Normal 55-199 [facility] Comment on above: Result Comment: If t his glucose result represents a fasting glucose, interpretation should refer to the following reference range: 55-99 mg/dL Performed By: #### 2 891005, 1778650, 1475010, 69523198, 70914937, 2956926 ####[facility] [address] [place] [address] Potassium [Moles/Vol] 4.1 mmol/L Normal 3.5-5.3 [facility] Comment on above: Performed By: #### 2 574707, 2954353, 9955891, 10196152, 05582373, 0741735 ####[facility] [address] [place] [address] Sodium [Moles/Vol] 142 mmol/L Normal 135-145 [facility] Comment on above: Performed By: #### 2 182752, 0422045, 4180559, 22806712, 68233229, 3902443 ####[facility] [address] [place] [address] CBC w/ Auto Diffon 3 Erythrocyte distribution width (RBC) [Ratio] 14.6 % High 10.9-14.2 [facility] Comment on above: Performed By: #### 2 830832, 5638305, 8533794, 61044378, 32337155, 9461376 ####[facility] [address] [place] [address] Hematocrit (Bld) [Volume fraction] 35.2 % Normal 34.0-46.0 [facility] Comment on above: Performed By: #### 2 309811, 7571756, 6303203, 61509039, 89743576, 5257432 ####[facility] [address] [place] [address] Hemoglobin (Bld) [Mass/Vol] 11.7 g/dL Low 12.0-16.0 [facility] Comment on above: Performed By: #### 2 014871, 5664059, 8268447, 31630995, 58698591, 4251785 ####[facility] [address] [place] [address] MCH (RBC) [Entitic mass] 30.0 pg Normal 27.0-34.0 [facility] Comment on above: Performed By: #### 2 339334, 9118773, 6597402, 48571661, 58544145, 3484640 ####[facility] [address] [place] [address] MCHC (RBC) [Mass/Vol] 33.2 g/dL Normal 31.4-36.0 [facility] Comment on above: Performed By: #### 2 837314, 5532502, 7603334, 13364018, 98520081, 1175180 ####[address] [place] [address] MCV (RBC) [Entitic vol] 90.4 fL Normal 80.0-100.0 F [facility] Comment on above: Performed By: #### 2 331656, 2376804, 3870052, 71612697, 18551648, 2641017 ####[address] [address] Platelet mean volume (Bld) [Entitic vol] 7.5 fL Normal 6.4-10.8 [facility] Comment on above: Performed By: #### 2 042767, 9397323, 1880681, 49042718, 77076220, 6370733 ####[address] [address] Platelets (Bld) [#/Vol] 279.0 E9/L Normal 150.0-500.0 [facility] Comment on above: Performed By: #### 2 376314, 0599008, 9082704, 92810022, 94359102, 6860693 ####[address] [address] RBC (Bld) [#/Vol] 3.9 E12/L Low 4.3-5.9 [facility] Comment on above: Performed By: #### 2 567629, 2542406, 0160680, 47382440, 45138780, 8928208 ####[facility] [address] [place] [address] WBC corrected for nucl RBC Auto (Bld) [#/Vol] 7.6 E9/L Normal 4.0-11.0 [facility] Comment on above: Performed By: #### 2 717565, 3236068, 5971159, 40026273, 31715610, 2459227 ####[facility] [address] [place] [address] Capillary Glucose POCon 11-05 Glucose [Mass/Vol] 148 mg/dL High 55-99 [facility] Comment on above: Result Comment: Michelle erickson RN/ Performed By: #### 2 57397300 ####[facility] [address] [place] [address] Glucose [Mass/Vol] 102 mg/dL High 55-99 [facility] Comment on above: Result Comment: Michelle erickson RN/ Performed By: #### 2 93687897 ####[facility] [address] [place] [address] Consent for Treatmenton 11-05 Consent for Treatment [id number]:127 Normal [facility] ED Clinical Summaryon 2022 ED Clinical Summary Normal [facility] ED Note-Physicianon 12-03-19 ED Note-Physician Normal [facility] Comment on above: Result Comment: Elec tronically Signed By: Bayron Rao PA-C\.br\Date and Time Signed: 12/02/22 13:01 EDT\.br\Electronically Co-Signed By: Michele Marie DO\.br\Date and Time Co-Signed: 12/02/22 13:44 EDT ED Patient Education Noteon 12-02-2022 ED Patient Education Note Normal [facility] ED Patient Summaryon 023 ED Patient Summary Normal [facility] Lactic Acidon 12-02-2022 Lactate [Mass/Vol] 2.5 mmol/L High 0.5-2.2 [facility] Comment on above: Performed By: #### 2 545282, 5637066, 0284826, 67968123, 88264574, 8095363 ####[facility] [address] [place] [address] Pre-Arrival Noteon 3 Pre-Arrival Note Normal [facility] Retic Counton 12-02-2022 Reticulocytes/100 RBC (Bld) 2.0 % High 0.5-1.5 [facility] Comment on above: Order Comment: per o sborn, labs cannot be added on.bms369 12/02/2022 16:41:27 EDT Performed By: #### 2 755274 ####[facility] [address] [place] [address] Troponin 0 Hr.on 12-02-2022 Troponin I.cardiac [Mass/Vol] 5.70 pg/mL Low 10.10-27.10 [facility] Comment on above: Result Comment: The 95% CI (Confidence Interval) PPV (Positive Predictive Value) for myocardial infarction in females is 38 pg/mL, in males 51 pg/mL. The results should be used in conjunction with clinical conditions of myocardial infarction.(Access High Sensitivity Troponin I Instructions For Use, [employer], January 2018) Performed By: #### 2 920740, 6208710, 3605797, 23431391, 81600889, 5379167 ####[facility] [address] [place] [address] XR Chest Single Viewon 12-02 XR Chest Single View Normal [facility] eGFRon 12-02-2022 GFR/1.73 sq M.predicted among non-blacks MDRD (S/P/Bld) [Vol rate/Area] 46 mL/min/1.73 m2 Low >=59 [facility] Comment on above: Order Comment: Order added by Discern Expert. Result Comment: Network Applications Specialist terrell kidney disease could be indicated at eGFR's of less than 60 mL/min/1.73m2. Kidney failure is indicated at less than 15 mL/min/1.73m2. Performed By: #### 2 837466, 9687292, 9343877, 15485104, 46067091, 5499681 ####[facility] [address] [place] [address] C Urineon 12-01-2022 Bacteria identified Cx Nom (U) Normal [facility] Comment on above: Performed By: #### 1 2297029, 6895715 ####[facility] [address] [place] [address] Family Medicine Office/Clini c Noteon 12-01-2022 [facility] Office/Clinic Note Normal [facility] Comment on above: Result Comment: Elec tronically Signed By: Leigh SELBY, Nadege Sykes\Date and Time Signed: 12/01/22 14:00 EDT AZTREONAM:SUSC:PT:ISOLATE:OR DQN:MICOrdered By: Jasmin Desai on 11-29-2022 Aztreonam YESENIA [Susc] >100,000 cfu/ml Escherichia coli [facility] Aztreonam YESENIA [Susc]Ordered By: Jasmin Desai on 11-29-2022 Escherichia coli Escherichia coli Fi [facility] UA With Cult Reflexon 2022 Bacteria LM Ql (Urine sed) 3+ /HPF Abnormal Trace [facility] Comment on above: Performed By: #### 1 3675300, 1530148 ####[facility] [address] [place] [address] Bilirubin Ql (U) Negative Normal Negative [facility] Comment on above: Performed By: #### 1 1180005, 2181901 ####[facility] [address] [place] [address] Clarity (U) SL CLOUDY Abnormal Clear [facility] Comment on above: Performed By: #### 1 8701077, 6301058 ####[facility] [address] [place] [address] Color (U) YELLOW Normal Yellow [facility] Comment on above: Performed By: #### 1 2432823, 7358170 ####[facility] [address] [place] [address] Epithelial cells.squamous LM.HPF (Urine sed) [#/Area] 0-2 Normal 0-[address] [facility] Comment on above: Performed By: #### 1 8249231, 9485475 ####[facility] [address] [place] [address] Glucose Test strip (U) [Mass/Vol] Negative Normal Negative [facility] Comment on above: Performed By: #### 1 8224604, 2631428 ####[facility] [address] [place] [address] Hemoglobin Ql (U) Negative Normal Negative [facility] Comment on above: Performed By: #### 1 4094540, 0357150 ####[facility] [address] [place] [address] Ketones (U) [Mass/Vol] Negative Normal Negative [facility] Comment on above: Performed By: #### 1 9707361, 7826049 ####[address] [address] [place].plasma/[place].R BC (Bld) [Mass ratio] 0-3 Normal 0-3 [facility] Comment on above: Performed By: #### 1 6346275, 8963987 ####[facility] [address] [place] [address] Nitrite Ql (U) Positive Abnormal Negative [facility] Comment on above: Performed By: #### 1 9174711, 4823290 ####[address] [address] pH (U) 5.5 [pH] Invalid Interpretation Code 5.0-9.0 [facility] Comment on above: Performed By: #### 1 4829919, 2759648 ####[facility] [address] [place] [address] Protein (U) [Mass/Vol] Negative Normal Negative [facility] Comment on above: Performed By: #### 1 9548953, 3613307 ####[address] [address] Specific gravity (U) [Rel density] 1.010 Invalid Interpretation Code 1.005-1.030 [facility] Comment on above: Performed By: #### 1 4079551, 0068412 ####[facility] [address] [place] [address] Type of Urine collection method Clean Catch Normal [facility] Comment on above: Performed By: #### 1 4151676, 9836565 ####[facility] [address] [place] [address] Urobilinogen Qn (U) 0.2 {Macie'U}/dL Normal 0.0-1.0 [facility] Comment on above: Performed By: #### 1 6425698, 9784179 ####[place] [address] WBC Auto Ql (U) 1+ Abnormal Negative [facility] Comment on above: Performed By: #### 1 8962396, 9529159 ####[facility] [address] [place] [address] WBC LM.HPF (Urine sed) [#/Area] /[HPF] Abnormal 0-5 [facility] Comment on above: Performed By: #### 1 1235966, 1450912 ####[facility] [address] [place], [place] [address] URINALYSISOrdered By: Yara Monroy on 11-29-2022 Bacteria LM Ql (Urine sed) 3+ /HPF Invalid Interpretation Code Trace/HPF [facility] UA Auto SS Bilirubin Ql (U) Negative (11/29/22 3:46 PM) Normal Negative [facility] UA Auto SS Clarity (U) Slightly Cloudy *ABN* (11/29/22 3:46 PM) Invalid Interpretation Code Clear [facility] UA Auto SS Color (U) Yellow (11/29/22 3:46 PM) Normal Yellow [facility]A Auto SS Epithelial cells.squamous LM.HPF (Urine sed) [#/Area] 0-2 /HPF Normal 0-2/HPF [facility] UA Aut o SS Glucose Test strip (U) [Mass/Vol] Negative (11/29/22 3:46 PM) Normal Negative [facility] UA Auto SS Hemoglobin Ql (U) Negative (11/29/22 3:46 PM) Normal Negative [facility] UA Auto SS Ketones (U) [Mass/Vol] Negative (11/29/22 3:46 PM) Normal Negative [facility] UA Auto SS [place].plasma/[place].R BC (Bld) [Mass ratio] 0-3 /HPF Normal [...] PM) Invalid Interpretation Code 1.005 - 1.030 [facility] UA Auto SS UA Spec Desc Clean Catch (11/29/22 3:46 PM) Normal [facility] UA Auto SS Urobilinogen Qn (U) 0.1881365 {Macie'U}/dL Normal 0.0 - 1.0 EU/dL [facility] UA Auto SS WBC Auto Ql (U) 1+ *ABN* (11/29/22 3:46 PM) Invalid Interpretation Code Negative [facility] UA Auto SS WBC LM.HPF (Urine sed) [#/Area] /[HPF] Invalid Interpretation Code 0-5/HPF [facility] UA Auto SS Prison Recordson 11-26 Prison Records [id number]#1. 00CD:127 Normal [facility] Family Medicine Office/Clini c Noteon 11-16-2022 Family Medicine Office/Clinic Note Normal [facility] Comment on above: Result Comment: Elec tronically Signed By: TOMASZ BRIGGS, Og\.br\Date and Time Signed: 11/15/22 22:43 EDT Discharge Instructionson Discharge Instructions [id number]#1. 00CD:127 Normal [facility] Message from Medicareon 11-04 Message from Medicare [id number]#1. 00CD:127 Normal [facility] Capillary Glucose POCon 11-04 Glucose [Mass/Vol] 127 mg/dL High 55-99 [facility] Comment on above: Result Comment: Michelle PACHECO Performed By: #### 2 [id number] ####[facility] [address] [place] [address] Glucose [Mass/Vol] 124 mg/dL High 55-99 [facility] Comment on above: Result Comment: Michelle PACHECO Performed By: #### 2 56655382 ####[facility] [address] [place] [address] Inpatient Patient Summaryon 11-14-2022 Inpatient Patient Summary Normal [facility] BMPon 11-13-2022 Anion gap [Moles/Vol] 9 mmol/L Normal 6-16 [facility] Comment on above: Performed By: #### 1 7323441, 3428070 ####[facility] [address] [place] [address] Calcium [Mass/Vol] 9.3 mg/dL Normal 8.9-11.1 [facility] Comment on above: Performed By: #### 1 0242464, 0352456 ####[facility] [address] [place] [address] Chloride [Moles/Vol] 107 mmol/L Normal 101-111 [facility] Comment on above: Performed By: #### 1 7420864, 9564828 ####[facility] [address] [place] [address] CO2 [Moles/Vol] 27 mmol/L Normal 21-31 [facility] Comment on above: Performed By: #### 1 8092735, 8794268 ####[facility] [address] [place] [address] Creatinine [Mass/Vol] 1.2 mg/dL Normal 0.5-1.3 [facility] Comment on above: Performed By: #### 1 0862050, 1068364 ####[facility] [address] [place] [address] Glucose [Mass/Vol] 124 mg/dL Normal 55-199 [facility] Comment on above: Result Comment: If t his glucose result represents a fasting glucose, interpretation should refer to the following reference range: 55-99 mg/dL Performed By: #### 1 2750064, 5927284 ####[facility] [address] [place] [address] Potassium [Moles/Vol] 4.2 mmol/L Normal 3.5-5.3 [facility] Comment on above: Performed By: #### 1 9369552, 4473464 ####[facility] [address] [place] [address] Sodium [Moles/Vol] 139 mmol/L Normal 135-145 [facility] Comment on above: Performed By: #### 1 7715513, 7085605 ####[facility] [address] [place] [address] Urea nitrogen [Mass/Vol] 11 mg/dL Normal 5-21 [facility] Comment on above: Performed By: #### 1 0416879, 1833326 ####[facility] [address] [place] [address] Urea nitrogen/Creatinine [Mass ratio] 9 No Units Low 10-20 [facility] Comment on above: Performed By: #### 1 5445952, 2284291 ####[facility] [address] [place] [address] Capillary Glucose POCon 11-04 0 Glucose [Mass/Vol] 144 mg/dL High 55-99 [facility] Comment on above: Result Comment: Michelle erickson RN/ Performed By: #### 2 67977024 ####[facility] [address] [place] [address] Glucose [Mass/Vol] 141 mg/dL High 55-99 [facility] Comment on above: Result Comment: Michelle PACHECO Performed By: #### 2 98780009 ####[facility] [address] [place] [address] Glucose [Mass/Vol] 153 mg/dL High 55-99 [facility] Comment on above: Result Comment: Michelle erickson RN/ Performed By: #### 2 38573377 ####[facility] [address] [place] [address] Glucose [Mass/Vol] 135 mg/dL High 55-99 [facility] Comment on above: Result Comment: Michelle erickson RN/ Performed By: #### 2 28464705 ####[facility] [address] [place] [address] Inpatient Clinical Summaryon 11-13-2022 Inpatient Clinical Summary Normal [facility] Inpatient Patient Summaryon 11-13-2022 Inpatient Patient Summary Normal [facility] Progress Note-Physicianon Progress Note-Physician Normal F [facility] Comment on above: Result Comment: Elec tronically Signed By: LESLEY BRIGGS, Jeff Stoll\.br\Date and Time Signed: 11/13/22 08:40 EDT eGFRon 11-13-2022 GFR/1.73 sq M.predicted among non-blacks MDRD (S/P/Bld) [Vol rate/Area] 46 mL/min/1.73 m2 Low >=59 [facility] Comment on above: Order Comment: Order added by Discern Expert. Result Comment: Network Applications Specialist terrell kidney disease could be indicated at eGFR's of less than 60 mL/min/1.73m2. Kidney failure is indicated at less than 15 mL/min/1.73m2. Performed By: #### 1 4904639, 7318526 ####[facility] [address] [place] [address] Auto Diffon 11-12-2022 Basophils/100 WBC (Bld) 0.6 % Normal 0.0-2.0 [facility] Comment on above: Order Comment: Order Added by Discern Expert. Performed By: #### 2 818852, 0062406, 8023544, 7468278, 89898373 ####[facility] [address] [place] [address] Basophils/Leukocytes Auto (Bld) [Pure # fraction] 0.0 E9/L Normal 0.0-0.2 [facility] Comment on above: Order Comment: Order Added by Discern Expert. Performed By: #### 2 406862, 5053293, 7163917, 6459440, 21559302 ####[facility] [address] [place] [address] Eosinophils/100 WBC (Bld) 1.4 % Normal 0.0-8.0 [facility] Comment on above: Order Comment: Order Added by Discern Expert. Performed By: #### 2 148963, 4604926, 9242345, 5859321, 81339119 ####[facility] [address] [place] [address] Eosinophils/Leukocytes Auto (Bld) [Pure # fraction] 0.1 E9/L Normal 0.0-0.5 [facility] Comment on above: Order Comment: Order Added by Roderick Expert. Performed By: #### 2 985990, 7672133, 4077485, 1882468, 65834642 ####[address] [address] Lymphocytes/100 WBC (Bld) 22.4 % Normal 14.0-50.0 [facility] Comment on above: Order Comment: Order Added by Roderick Expert. Performed By: #### 2 605259, 2761200, 2331801, 7036080, 72833969 ####[address] [address] Lymphocytes/Leukocytes Auto (Bld) [Pure # fraction] 1.6 E9/L Normal 1.0-4.0 [facility] Comment on above: Order Comment: Order Added by Discern Expert. Performed By: #### 2 373109, 2605072, 0983979, 9528712, 27449062 ####[address] [address] Monocytes/100 WBC (Bld) 11.5 % Normal 4.0-14.0 [facility] Comment on above: Order Comment: Order Added by Discern Expert. Performed By: #### 2 293123, 2443639, 4601753, 1243325, 00567820 ####[facility] [address] [place] [address] Monocytes/Leukocytes Auto (Bld) [Pure # fraction] 0.8 E9/L Normal 0.2-1.0 [facility] Comment on above: Order Comment: Order Added by Discern Expert. Performed By: #### 2 597513, 0623050, 5656019, 2046811, 66021703 ####[facility] [address] [place] [address] Neutrophils/100 WBC (Bld) 64.1 % Normal 36.0-75.0 [facility] Comment on above: Order Comment: Order Added by Discern Expert. Performed By: #### 2 137414, 5703623, 8079917, 0643081, 69319403 ####[facility] [address] [place] [address] Neutrophils/Leukocytes Auto (Bld) [Pure # fraction] 4.5 E9/L Normal 2.0-7.5 [facility] Comment on above: Order Comment: Order Added by Discern Expert. Performed By: #### 2 442108, 6587572, 6366093, 8917788, 90528978 ####[facility] [address] [place] [address] BMPon 11-12-2022 Anion gap [Moles/Vol] 9 mmol/L Normal 6-16 [facility] Comment on above: Performed By: #### 2 180183, 8472007, 5228456, 1913797, 89839291 ####[facility] [address] [place] [address] Calcium [Mass/Vol] 8.6 mg/dL Low 8.9-11.1 [facility] Comment on above: Performed By: #### 2 672937, 2915769, 5664437, 0078695, 16918744 ####[facility] [address] [place] [address] Chloride [Moles/Vol] 107 mmol/L Normal 101-111 [facility] Comment on above: Performed By: #### 2 004777, 1837443, 7066063, 5579660, 89671704 ####[facility] [address] [address] CO2 [Moles/Vol] 27 mmol/L Normal 21-31 [facility] Comment on above: Performed By: #### 2 475917, 6376233, 1181818, 0018617, 05958389 ####[facility] [address] [facility] [place] [address] Creatinine [Mass/Vol] 1.4 mg/dL High 0.5-1.3 [facility] Comment on above: Performed By: #### 2 542878, 5298233, 5988042, 5365209, 60023867 ####[facility] [address] [facility] [place] [address] Glucose [Mass/Vol] 164 mg/dL Normal 55-199 [facility] Comment on above: Result Comment: If t his glucose result represents a fasting glucose, interpretation should refer to the following reference range: 55-99 mg/dL Performed By: #### 2 496856, 5635331, 3099678, 3127162, 31067078 ####[facility] [address] [address] Potassium [Moles/Vol] 3.7 mmol/L Normal 3.5-5.3 [facility] Comment on above: Performed By: #### 2 354002, 1517009, 9723609, 5192180, 23529482 ####[facility] [address] [place] [address] Sodium [Moles/Vol] 139 mmol/L Normal 135-145 [facility] Comment on above: Performed By: #### 2 269397, 5059567, 9968445, 9334812, 08743584 ####[facility] [address] [facility] [address] Urea nitrogen [Mass/Vol] 15 mg/dL Normal 5-21 [facility] Comment on above: Performed By: #### 2 887801, 4740497, 9679530, 3369470, 34064781 ####[facility] [address] [place] [address] Urea nitrogen/Creatinine [Mass ratio] 11 No Units Normal 10-20 [facility] Comment on above: Performed By: #### 2 422164, 2441009, 0963698, 5846215, 04682869 ####[facility] [address] [place] [address] CBC w/ Auto Diffon 3 Erythrocyte distribution width (RBC) [Ratio] 14.9 % High 10.9-14.2 [facility] Comment on above: Performed By: #### 2 668620, 2972189, 2056431, 3825508, 68963554 ####[facility] [address] [place] [address] Hematocrit (Bld) [Volume fraction] 35.5 % Normal 34.0-46.0 [facility] Comment on above: Performed By: #### 2 746168, 0158550, 9084259, 9093730, 71264660 ####[facility] [address] [place] [address] Hemoglobin (Bld) [Mass/Vol] 11.7 g/dL Low 12.0-16.0 [facility] Comment on above: Performed By: #### 2 617814, 6814330, 7552744, 6235585, 04882143 ####[facility] [address] [place] [address] MCH (RBC) [Entitic mass] 29.8 pg Normal 27.0-34.0 [facility] Comment on above: Performed By: #### 2 015529, 7340987, 3575053, 5771954, 82406504 ####[facility] [address] [place] [address] MCHC (RBC) [Mass/Vol] 33.0 g/dL Normal 31.4-36.0 [facility] Comment on above: Performed By: #### 2 994479, 7383497, 5975518, 9987537, 43067326 ####[facility] [address] [place] [address] MCV (RBC) [Entitic vol] 90.1 fL Normal 80.0-100.0 [facility] Comment on above: Performed By: #### 2 355152, 3472019, 0682401, 1435532, 43118130 ####[facility] [address] [place] [address] Platelet mean volume (Bld) [Entitic vol] 7.8 fL Normal 6.4-10.8 [facility] Comment on above: Performed By: #### 2 234507, 9154903, 1248809, 8895298, 17979547 ####[address] [address] Platelets (Bld) [#/Vol] 215.0 E9/L Normal 150.0-500.0 [facility] Comment on above: Performed By: #### 2 707558, 1535827, 4086424, 7260249, 73752515 ####[address] [address] RBC (Bld) [#/Vol] 3.9 E12/L Low 4.3-5.9 [facility] Comment on above: Performed By: #### 2 355652, 0773312, 0319933, 9875728, 60347240 ####[facility] [address] [place] [address] WBC corrected for nucl RBC Auto (Bld) [#/Vol] 7.1 E9/L Normal 4.0-11.0 [facility] Comment on above: Performed By: #### 2 160983, 0244040, 8960356, 3195188, 28255804 ####[facility] [address] [place] [address] Capillary Glucose POCon 060 Glucose [Mass/Vol] 143 mg/dL High 55-99 [facility] Comment on above: Result Comment: Michelle erickson RN/ Performed By: #### 2 63062856 ####[facility] [address] [place] [address] Glucose [Mass/Vol] 146 mg/dL High 55-99 [facility] Comment on above: Result Comment: Michelle erickson RN/ Performed By: #### 2 23923530 ####[facility] [address] [place] [address] Glucose [Mass/Vol] 132 mg/dL High 55-99 [facility] Comment on above: Result Comment: Michelle erickson RN/ Performed By: #### 2 66066331 ####[facility] [address] [place] [address] Interdisciplinary Note - [place] e Manageron 11-12-2022 Interdisciplinary Note - Concrete Polisher [facility] Comment on above: Result Comment: Elec tronically Signed By: Kaylie Díaz\Date and Time Signed: 11/12/22 11:47 EDT Magnesiumon 11-12-2022 Magnesium [Mass/Vol] 1.5 mg/dL Normal 1.3-2.4 [facility] Comment on above: Performed By: #### 2 849632, 0408343, 2190179, 6886156, 65068550 ####[facility] [address] [place] [address] Monitor Recordon 11-12-2022 Monitor Record [id number]# 1.00CD:127 Normal [facility] Monitor Record [id number]# 1.00CD:127 Normal [facility] Monitor Record [id number]# 1.00CD:127 Normal [facility] Progress Note-Physicianon Progress Note-Physician Normal F [facility] Comment on above: Result Comment: Elec tronically Signed By: SUTTON MD, Jeff P\.br\Date and Time Signed: 11/12/22 08:42 EDT eGFRon 11-12-2022 GFR/1.73 sq M.predicted among non-blacks MDRD (S/P/Bld) [Vol rate/Area] 39 mL/min/1.73 m2 Low >=59 [facility] Comment on above: Order Comment: Order added by Discern Expert. Result Comment: Network Applications Specialist terrell kidney disease could be indicated at eGFR's of less than 60 mL/min/1.73m2. Kidney failure is indicated at less than 15 mL/min/1.73m2. Performed By: #### 2 772256, 7161422, 7659584, 4127329, 39030736 ####[facility] [address] [place] [address] ABO/Rhon 11-11-2022 ABO/Rh Negative Invalid Interpretation Code [facility] Comment on above: Performed By: #### 1 5784978, 23092383, 75083615, 2084492 ####[facility] [address] [place] [address] ABO/Rh History Checkon 11-11 ABO/Rh History Check Verified Hx Blood Type Normal [facility] Comment on above: Performed By: #### 1 6676159, 53109112, 30048683, 5574488 ####[facility] [address] [place] [address] ABSCon 11-11-2022 ABSC Gel Interp Negative Normal [facility] Comment on above: Order Comment: pt in ct will get labs when they return [id number] 11/10/2022 21:43:26 EDT Performed By: #### 1 6313161, 76277778, 32642124, 4163781 ####[facility] [address] [place] [address] Auth for Release of Medical Recordson 11-11-2022 Auth for Release of Medical Records [id number]# 1.00CD:127 Normal [facility] Auto Diffon 11-11-2022 Basophils/100 WBC (Bld) 1.2 % Normal 0.0-2.0 F [facility] Comment on above: Order Comment: Order Added by Discern Expert. Performed By: #### 2 274669, 12021443, 2206410, 1770607, 4935731, 9766408, 841047342 ####[address] [place] [address] Basophils/Leukocytes Auto (Bld) [Pure # fraction] 0.1 E9/L Normal 0.0-0.2 [facility] Comment on above: Order Comment: Order Added by Discern Expert. Performed By: #### 2 283047, 49265199, 8962187, 0762793, 4649095, 9974813, 993849622 ####[address] [address] Eosinophils/100 WBC (Bld) 2.6 % Normal 0.0-8.0 [facility] Comment on above: Order Comment: Order Added by Discern Expert. Performed By: #### 2 620218, 45566466, 7698611, 0976249, 8538459, 4905739, 129200910 ####[address] [address] Eosinophils/Leukocytes Auto (Bld) [Pure # fraction] 0.2 E9/L Normal 0.0-0.5 [facility] Comment on above: Order Comment: Order Added by Discern Expert. Performed By: #### 2 671191, 19700638, 7437461, 5515950, 4664784, 7405183, 440632573 ####[address] [address] Lymphocytes/100 WBC (Bld) 33.6 % Normal 14.0-50.0 [facility] Comment on above: Order Comment: Order Added by Discern Expert. Performed By: #### 2 852129, 61990105, 9120473, 5447304, 5040355, 1329701, 907761625 ####[address] [address] Lymphocytes/Leukocytes Auto (Bld) [Pure # fraction] 2.2 E9/L Normal 1.0-4.0 [facility] Comment on above: Order Comment: Order Added by Discern Expert. Performed By: #### 2 470626, 54840819, 6535371, 1493721, 9473856, 6085534, 540214612 ####[address] [address] Monocytes/100 WBC (Bld) 8.4 % Normal 4.0-14.0 [facility] Comment on above: Order Comment: Order Added by Discern Expert. Performed By: #### 2 773655, 14625926, 3125324, 0755487, 9342158, 2535935, 425233579 ####[address] [address] Monocytes/Leukocytes Auto (Bld) [Pure # fraction] 0.5 E9/L Normal 0.2-1.0 [facility] Comment on above: Order Comment: Order Added by Discern Expert. Performed By: #### 2 638998, 91552129, 2783031, 9935775, 8755598, 2612324, 333822628 ####[address] [address] Neutrophils/100 WBC (Bld) 54.2 % Normal 36.0-75.0 [facility] Comment on above: Order Comment: Order Added by Roderick Expert. Performed By: #### 2 603437, 49696191, 7363113, 6135289, 1633512, 5307370, 752344630 ####[address] [place] [address] Neutrophils/Leukocytes Auto (Bld) [Pure # fraction] 3.5 E9/L Normal 2.0-7.5 [facility] Comment on above: Order Comment: Order Added by Roderick Expert. Performed By: #### 2 254395, 97089329, 0246047, 2009411, 5323516, 6229779, 008422080 ####[address] [place] [address] Basophils/100 WBC (Bld) 0.8 % Normal 0.0-2.0 [facility] Comment on above: Order Comment: Order Added by Discern Expert. Performed By: #### 2 661625, 04714577, 9758504, 3396165, 1256307, 5713563, 0708142, 51993023, 4313819, 5756005 ####[address] [place] [address] Basophils/Leukocytes Auto (Bld) [Pure # fraction] 0.0 E9/L Normal 0.0-0.2 [facility] Comment on above: Order Comment: Order Added by Discern Expert. Performed By: #### 2 911756, 40019315, 4649477, 0812819, 4431947, 0722739, 4896349, 00846076, 1904833, 1512602 ####[address] [address] Eosinophils/100 WBC (Bld) 2.0 % Normal 0.0-8.0 [facility] Comment on above: Order Comment: Order Added by Discern Expert. Performed By: #### 2 178701, 77332176, 3216976, 7296360, 8246109, 1921684, 4789974, 02742819, 9098975, 1165225 ####[address] [place] [address] Eosinophils/Leukocytes Auto (Bld) [Pure # fraction] 0.1 E9/L Normal 0.0-0.5 [facility] Comment on above: Order Comment: Order Added by Discern Expert. Performed By: #### 2 051751, 42271751, 9693537, 2377780, 8684905, 8110404, 0488590, 63478937, 9040670, 6197808 ####[address] [place] [address] Lymphocytes/100 WBC (Bld) 27.0 % Normal 14.0-50.0 [facility] Comment on above: Order Comment: Order Added by Discern Expert. Performed By: #### 2 986312, 97702471, 6553513, 0252187, 6830374, 6524738, 3400860, 02194462, 7563365, 3980103 ####[address] [place] [address] Lymphocytes/Leukocytes Auto (Bld) [Pure # fraction] 1.6 E9/L Normal 1.0-4.0 [facility] Comment on above: Order Comment: Order Added by Discern Expert. Performed By: #### 2 370724, 29446749, 5848985, 7984366, 8022342, 9367987, 5946177, 22537578, 9050749, 5616562 ####[address] [address] Monocytes/100 WBC (Bld) 8.9 % Normal 4.0-14.0 [facility] Comment on above: Order Comment: Order Added by Discern Expert. Performed By: #### 2 866248, 16772504, 2260701, 7768552, 0742683, 8925564, 8043576, 02961233, 2334477, 5975598 ####[address] [address] Monocytes/Leukocytes Auto (Bld) [Pure # fraction] 0.5 E9/L Normal 0.2-1.0 [facility] Comment on above: Order Comment: Order Added by Discern Expert. Performed By: #### 2 028571, 87469855, 0656116, 5120308, 8601544, 0773072, 6974361, 33767018, 9025082, 9555493 ####[address] [place] [address] Neutrophils/100 WBC (Bld) 61.3 % Normal 36.0-75.0 [facility] Comment on above: Order Comment: Order Added by Discern Expert. Performed By: #### 2 458122, 54150799, 9675080, 1360967, 9989031, 1019817, 9820645, 16066604, 8185522, 3449799 ####[facility] [address] [place] [address] Neutrophils/Leukocytes Auto (Bld) [Pure # fraction] 3.6 E9/L Normal 2.0-7.5 [facility] Comment on above: Order Comment: Order Added by Discern Expert. Performed By: #### 2 656806, 78960838, 0151680, 7563977, 7704509, 9004045, 7679205, 66438831, 7603347, 1651623 ####[facility] [address] [place] [address] BMPon 11-11-2022 Creatinine [Mass/Vol] 2.0 mg/dL High 0.5-1.3 [facility] Comment on above: Performed By: #### 2 748858, 15180076, 1332151, 6048507, 6029621, 2259068, 804389907 ####[facility] [address] [place] [address] Anion gap [Moles/Vol] 11 mmol/L Normal 6-16 [facility] Comment on above: Performed By: #### 2 675747, 22228470, 9607521, 1581382, 8014313, 0205898, 595503524 ####[facility] [address] [place] [address] Calcium [Mass/Vol] 9.0 mg/dL Normal 8.9-11.1 [facility] Comment on above: Performed By: #### 2 264744, 78427029, 7212847, 5318745, 3386114, 8992296, 968917860 ####[facility] [address] [place] [address] Chloride [Moles/Vol] 103 mmol/L Normal 101-111 [facility] Comment on above: Performed By: #### 2 190709, 48176736, 5425417, 4296536, 2546341, 4044017, 285697071 ####[facility] [address] [place] [address] CO2 [Moles/Vol] 30 mmol/L Normal 21-31 [facility] Comment on above: Performed By: #### 2 563833, 08667091, 7211441, 3334208, 8301531, 5266312, 828039436 ####[facility] [address] [place] [address] Glucose [Mass/Vol] 107 mg/dL Normal 55-199 [facility] Comment on above: Result Comment: If t his glucose result represents a fasting glucose, interpretation should refer to the following reference range: 55-99 mg/dL Performed By: #### 2 589307, 65533889, 9226613, 4605786, 0876230, 2576585, 974075092 ####[facility] [address] [place] [address] Potassium [Moles/Vol] 3.2 mmol/L Low 3.5-5.3 [facility] Comment on above: Performed By: #### 2 352123, 24157087, 9463957, 0419586, 5040139, 6878100, 472410932 ####[facility] [address] [place] [address] Sodium [Moles/Vol] 141 mmol/L Normal 135-145 [facility] Comment on above: Performed By: #### 2 711154, 90475057, 9967147, 4895507, 3600870, 4963781, 640722324 ####[facility] [address] [place] [address] Urea nitrogen [Mass/Vol] 24 mg/dL High 5-21 [facility] Comment on above: Performed By: #### 2 806575, 84776191, 8380916, 7811911, 6773509, 3459364, 817271657 ####[facility] [address] [place] [address] Urea nitrogen/Creatinine [Mass ratio] 12 No Units Normal 10-20 [facility] Comment on above: Performed By: #### 2 895843, 33039329, 8620037, 2758080, 4082454, 0611370, 904835811 ####[facility] [address] [place] [address] Creatinine [Mass/Vol] 2.4 mg/dL High 0.5-1.3 [facility] Comment on above: Performed By: #### 2 391466, 64059348, 1548136, 2811986, 9299105, 8130050, 4130786, 12709804, 3989040, 4864567 ####[facility] [address] [place] [address] Urea nitrogen [Mass/Vol] 26 mg/dL High 5-21 [facility] Comment on above: Performed By: #### 2 356855, 41611908, 2545319, 4719631, 9231886, 7436068, 4872930, 36832342, 6952331, 7437733 ####[facility] [address] [place] [address] Urea nitrogen/Creatinine [Mass ratio] 11 No Units Normal 10-20 [facility] Comment on above: Performed By: #### 2 811962, 63014199, 4294961, 5482690, 2564364, 9722010, 7058241, 31599009, 2074290, 1972794 ####[facility] [address] [place] [address] Anion gap [Moles/Vol] 20 mmol/L High 6-16 [facility] Comment on above: Performed By: #### 2 781790, 20629197, 9924108, 1021132, 8949557, 2416985, 8669124, 27368801, 7600567, 4023244 ####[facility] [address] [place] [address] Calcium [Mass/Vol] 9.4 mg/dL Normal 8.9-11.1 [facility] Comment on above: Performed By: #### 2 628223, 50141761, 5556613, 5787289, 3741961, 8472791, 2821592, 78450129, 7266426, 5598993 ####[facility] [address] [place] [address] Chloride [Moles/Vol] 96 mmol/L Low 101-111 [facility] Comment on above: Performed By: #### 2 367135, 83068371, 0284596, 2483424, 7731511, 0465362, 6201632, 02166585, 6571154, 6467783 ####[facility] [address] [place] [address] CO2 [Moles/Vol] 26 mmol/L Normal 21-31 [facility] Comment on above: Performed By: #### 2 539187, 68119089, 8755339, 2847440, 7343017, 4287694, 9641721, 27380453, 0769081, 4419215 ####[facility] [address] [place] [address] Glucose [Mass/Vol] 131 mg/dL Normal 55-199 [facility] Comment on above: Result Comment: If t his glucose result represents a fasting glucose, interpretation should refer to the following reference range: 55-99 mg/dL Performed By: #### 2 283640, 20736296, 8529742, 6794176, 6839442, 9916547, 7931205, 98895418, 8771716, 3198405 ####[facility] [address] [place] [address] Potassium [Moles/Vol] 3.7 mmol/L Normal 3.5-5.3 [facility] Comment on above: Performed By: #### 2 452766, 89369846, 3410029, 7626558, 8952881, 9781001, 2336063, 03145389, 2753378, 3368454 ####[facility] [address] [place] [address] Sodium [Moles/Vol] 138 mmol/L Normal 135-145 [facility] Comment on above: Performed By: #### 2 569601, 18526130, 0919868, 3927102, 6565136, 9047491, 5910798, 69792228, 3798174, 6075358 ####[facility] [address] [place] [address] Blood Bank ID#on 11-11-2022 BBID# [id number] Invalid Interpretation Code [facility] Comment on above: Performed By: #### 1 1030769, 55339302, 57350333, 8094687 ####[address] [place] [address] CBC w/ Auto Diffon Erythrocyte distribution width (RBC) [Ratio] 14.2 % Normal 10.9-14.2 [facility] Comment on above: Performed By: #### 2 751893, 77860320, 8862476, 1386065, 8405015, 5056520, 907616882 ####[address] [place] [address] Hematocrit (Bld) [Volume fraction] 35.6 % Normal 34.0-46.0 [facility] Comment on above: Performed By: #### 2 287988, 53412420, 1422083, 6600040, 5292973, 9159900, 725649815 ####[address] [place] [address] Hemoglobin (Bld) [Mass/Vol] 12.1 g/dL Normal 12.0-16.0 [facility] Comment on above: Performed By: #### 2 423384, 45049453, 7222383, 7257823, 5659780, 1570236, 474270907 ####[address] [place] [address] MCH (RBC) [Entitic mass] 30.3 pg Normal 27.0-34.0 [facility] Comment on above: Performed By: #### 2 909283, 26203337, 3093076, 2252056, 1203719, 1384925, 293180852 ####[address] [place] [address] MCHC (RBC) [Mass/Vol] 34.1 g/dL Normal 31.4-36.[address] [facility] Comment on above: Performed By: #### 2 247895, 93280840, 0139905, 5658765, 3627948, 7201652, 873467718 ####[facility] [address] [place] [address] MCV (RBC) [Entitic vol] 89.0 fL Normal 80.0-100.0 F [facility] Comment on above: Performed By: #### 2 477077, 65557660, 9823771, 3658537, 0632953, 9359179, 407275372 ####[facility] [address] [place] [address] Platelet mean volume (Bld) [Entitic vol] 8.4 fL Normal 6.4-10.8 [facility] Comment on above: Performed By: #### 2 080410, 03516377, 1664674, 4693548, 2408236, 7992879, 771860291 ####[facility] [address] [place] [address] Platelets (Bld) [#/Vol] 216.0 E9/L Normal 150.0-500.0 [facility] Comment on above: Result Comment: Slid e reviewed by SLICK. Performed By: #### 2 997951, 11754435, 7387413, 6156204, 2898591, 0605359, 721431251 ####[facility] [address] [place] [address] RBC (Bld) [#/Vol] 4.0 E12/L Low 4.3-5.9 [facility] Comment on above: Performed By: #### 2 856093, 75552503, 5621459, 7172959, 7048344, 9712049, 241763354 ####[facility] [address] [place] [address] WBC corrected for nucl RBC Auto (Bld) [#/Vol] 6.5 E9/L Normal 4.0-11.0 [facility] Comment on above: Performed By: #### 2 556787, 70906596, 7102969, 3710677, 9976409, 1268570, 254762990 ####[facility] [address] [place] [address] Erythrocyte distribution width (RBC) [Ratio] 14.7 % High 10.9-14.2 [facility] Comment on above: Performed By: #### 2 937586, 97568463, 3502207, 2132487, 9224072, 1547048, 6152009, 38783414, 4664444, 1053829 ####[address] [place] [address] Hematocrit (Bld) [Volume fraction] 39.2 % Normal 34.0-46.0 [facility] Comment on above: Performed By: #### 2 909497, 91488654, 9300831, 3054049, 9383407, 8319867, 0715462, 29524536, 9854480, 4981275 ####[facility] [address] [place] [address] Hemoglobin (Bld) [Mass/Vol] 12.8 g/dL Normal 12.0-16.0 [facility] Comment on above: Performed By: #### 2 940094, 27409389, 8364606, 2594625, 1092088, 7683559, 6049309, 26892523, 8151708, 5090305 ####[facility] [address] [place] [address] MCH (RBC) [Entitic mass] 29.5 pg Normal 27.0-34.0 [facility] Comment on above: Performed By: #### 2 114061, 54714542, 1393162, 6762701, 2658592, 6989180, 5336512, 30944263, 5885193, 7486471 ####[address] [place] [address] MCHC (RBC) [Mass/Vol] 32.7 g/dL Normal 31.4-36.0 [facility] Comment on above: Performed By: #### 2 642586, 16657220, 4282401, 8092191, 4650833, 5622010, 4787213, 96261396, 3840668, 5107151 ####[facility] [address] [place] [address] MCV (RBC) [Entitic vol] 90.4 fL Normal 80.0-100.0 F [facility] Comment on above: Performed By: #### 2 930874, 47151839, 7734989, 4525882, 3465293, 4771490, 1110953, 73650163, 7228223, 0413826 ####[facility] [address] [place] [address] Platelet mean volume (Bld) [Entitic vol] 8.1 fL Normal 6.4-10.8 [facility] Comment on above: Performed By: #### 2 361386, 61964537, 3591029, 9046585, 0008067, 7735771, 0386233, 60454151, 3870766, 5087738 ####[facility] [address] [place] [address] Platelets (Bld) [#/Vol] 231.0 E9/L Normal 150.0-500.0 [facility] Comment on above: Performed By: #### 2 183896, 19375744, 4116575, 0320909, 2722860, 7516261, 9625004, 19767086, 1053502, 5986614 ####[facility] [address] [place] [address] RBC (Bld) [#/Vol] 4.3 E12/L Normal 4.3-5.9 [facility] Comment on above: Performed By: #### 2 331969, 11609157, 6742156, 2098896, 4596378, 7757020, 0490285, 37211514, 7157996, 4798084 ####[address] [place] [address] WBC corrected for nucl RBC Auto (Bld) [#/Vol] 5.9 E9/L Normal 4.0-11.0 [facility] Comment on above: Performed By: #### 2 246663, 91388254, 9191152, 1082255, 2193549, 2293514, 4632880, 92121844, 3966362, 8792894 ####[facility] [address] [place] [address] CKon 11-11-2022 CK [Catalytic activity/Vol] 82 Int._Unit/L Normal 14-261 [facility] Comment on above: Performed By: #### 2 424016, 29515997, 9985960, 4972034, 2037253, 8923092, 324964118 ####[address] [place] [address] CRPon 11-11-2022 CRP [Mass/Vol] 0.7 mg/dL Normal <=1.9 [facility] Comment on above: Performed By: #### 1 8351502, 0079821 ####[facility] [address] [place] [address] [address] Abdomen/Pelvis w/o Contra ston 11-11-2022 CT Abdomen/Pelvis w/o Contrast Normal [facility] CT Chest w/o Contraston CT Chest w/o Contrast Normal [facility] CT Head or Brain w/o Contras ton 11-11-2022 CT Head or Brain w/o Contrast Normal [facility] CT Maxillofacial w/o Contras ton 11-11-2022 CT Maxillofacial w/o Contrast Normal [facility] CT Spine Cervical w/o Contra ston 11-11-2022 CT Spine Cervical w/o Contrast Normal [facility] Capillary Glucose POCon - Glucose [Mass/Vol] 203 mg/dL High 55-99 [facility] Comment on above: Result Comment: Yvonne jl Meter Performed By: #### 2 78281203 ####[facility] [address] [place] [address] Glucose [Mass/Vol] 124 mg/dL High 55-99 [facility] Comment on above: Result Comment: Michelle PACHECO Performed By: #### 2 90586332 ####[facility] [address] [place] [address] Glucose [Mass/Vol] 109 mg/dL High 55-99 [facility] Comment on above: Result Comment: Michelle PACHECO Performed By: #### 2 83645613 ####[facility] [address] [place] [address] ED Clinical Summaryon 2022 ED Clinical Summary Normal [facility] ED Note-Physicianon 11-12-19 ED Note-Physician Normal [facility] Comment on above: Result Comment: Elec tronically Signed By: Cuauhtemoc Cheema PA-C\.br\Date and Time Signed: 11/11/22 00:36 EDT\.br\Electronically Co-Signed By: Yohannes Barraza DO.br\Date and Time Co-Signed: 11/11/22 01:06 EDT ED Patient Education Noteon 11-11-2022 ED Patient Education Note Normal [facility] ED Patient Summaryon 023 ED Patient Summary Normal [facility] ED Traumaon 11-11-2022 ED Trauma [id number]# 1.00CD:127 Normal [facility] Ethanolon 11-11-2022 Ethanol [Mass/Vol] mg/dL Normal <=7 [facility] Comment on above: Performed By: #### 2 419841, 54757283, 8867860, 9595387, 0093618, 6352871, 3329555, 85709835, 0149846, 8496554 ####[facility] [address] [place] [address] Hep Func Panelon 11-11-2022 Albumin [Mass/Vol] 3.7 g/dL Normal 3.3-5.0 [facility] Comment on above: Performed By: #### 2 755489, 06738633, 7408246, 6946690, 6418879, 9823464, 4732492, 11277187, 9751126, 8040433 ####[facility] [address] [place] [address] Albumin/Globulin (S) [Mass conc ratio] 1.2 Normal 1.1-2.2 [facility] Comment on above: Performed By: #### 2 751084, 11993568, 0541035, 1898465, 6461066, 9274112, 2405118, 61243755, 1733881, 9077895 ####[address] [place] [address] ALP [Catalytic activity/Vol] 63 Int._Unit/L Normal 21-98 [facility] Comment on above: Performed By: #### 2 429475, 82926192, 8139613, 0843975, 4873931, 8852556, 7303497, 65154994, 6821818, 3253199 ####[facility] [address] [place] [address] ALT No additional P-5'-P [Catalytic activity/Vol] 17 Int._Unit/L Normal 6-46 [facility] Comment on above: Performed By: #### 2 276448, 69445018, 5552078, 0747840, 5232915, 7175735, 8061842, 05080260, 8911358, 0998242 ####[facility] [address] [place] [address] AST [Catalytic activity/Vol] 25 Int._Unit/L Normal 5-43 [facility] Comment on above: Performed By: #### 2 526582, 25836253, 8250427, 5139577, 3810335, 9371630, 2401815, 82719014, 3637507, 0041354 ####[facility] [address] [place] [address] Bilirubin [Mass/Vol] 0.7 mg/dL Normal 0.0-1.1 [facility] Comment on above: Performed By: #### 2 992439, 72677101, 7208083, 4996552, 5079290, 1501359, 0954366, 16090125, 9119217, 1972393 ####[facility] [address] [place] [address] Bilirubin.direct [Mass/Vol] 0.1 mg/dL Normal 0.1-0.4 [facility] Comment on above: Performed By: #### 2 247137, 54913911, 9807050, 0876118, 9846816, 9719108, 4639476, 98948222, 4151038, 3806053 ####[facility] [address] [place] [address] Bilirubin.indirect [Mass or moles/Vol] 0.6 mg/dL Normal 0.1-0.9 [facility] Comment on above: Performed By: #### 2 585969, 74310074, 6552674, 5272559, 7365609, 3282323, 1170097, 52809118, 6302711, 0742418 ####[facility] [address] [place] [address] Globulin (S) [Mass/Vol] 3.1 g/dL Normal 1.4-4.0 F [facility] Comment on above: Performed By: #### 2 455039, 64792601, 6323477, 9668744, 0864318, 6413784, 0204982, 53840572, 9582992, 6904371 ####[facility] [address] [place] [address] Protein [Mass/Vol] 6.8 g/dL Normal 6.0-7.8 [facility] Comment on above: Performed By: #### 2 275487, 90258238, 6771493, 0285114, 5849415, 3910779, 2776682, 64602574, 8064760, 2067437 ####[facility] [address] [place] [address] TmkM4efh 06-08-2023 HbA1c (Bld) [Mass fraction] 6.9 % High <=5.9 [facility] Comment on above: Performed By: #### 2 513000, 60425953, 8148815, 0598524, 7536829, 2378751, 601232605 ####[facility] [address] [place] [address] Interdisciplinary Note - [place] e Manageron 11-11-2022 Interdisciplinary Note - Concrete Polisher Admission to ER and then RNF to discuss SNF placement. PT/OT rec SNF. CRM will discuss with pt and family. Patient will need 3MN stay. ANt dc TBD. 0 Normal [facility] Comment on above: Result Comment: Elec tronically Signed By: Kaylie [email or web address].br\Date and Time Signed: 11/11/22 15:15 EDT Interdisciplinary Note - José n 11-11-2022 Interdisciplinary Note - OT 11/11/22: OT orders received, chart reviewed. Per PT, Pt is independent in room and reports no questions/concerns with going home safely. No OT eval completed at this time. Normal [facility] Interdisciplinary Note - OT Normal [facility] Lactic Acidon 11-11-2022 Lactate [Mass/Vol] 1.3 mmol/L Normal 0.5-2.2 [facility] Comment on above: Performed By: #### 2 272083, 94964093, 2019978, 6536331, 2634097, 5062997, 100485655 ####[facility] [address] [place] [address] Lactate [Mass/Vol] 3.8 mmol/L High 0.5-2.2 [facility] Comment on above: Performed By: #### 2 000676, 57677462, 7104782, 3698707, 0702840, 0979269, 3844649, 44268873, 5996452, 4711361 ####[facility] [address] [place] [address] Lipase Levelon 11-11-2022 Lipase [Catalytic activity/Vol] 26 U/L Normal 13-58 [facility] Comment on above: Performed By: #### 2 695065, 56789327, 2566440, 0674539, 5871056, 4042782, 2016946, 86879369, 8149112, 3350043 ####[facility] [address] [place] [address] Monitor Recordon 11-11-2022 Monitor Record [id number]# 1.00CD:127 Normal [facility] Outside Recordson 11-11-2022 Outside Records [id number]# 1.00CD:127 Normal [facility] PT & PTTon 11-11-2022 aPTT Coag (PPP) [Time] 45.4 second(s) High 25.1-36.5 [facility] Comment on above: Result Comment: Para meter [...] the same coagulation reagent and instrumentation as [facility]. Currently there are no coagulation studies available worldwide for children to 14 days, and no normal ranges. Heparin therapeutic range (represented by Anti-Factor Xa activity of 0.2 - 0.4 U/mL) corresponds to PTT of 56.6 - 109.0 sec. Performed By: #### 2 528373, 46249646, 6794493, 8947530, 0775577, 9755313, 6039437, 82244965, 0229416, 8024520 ####[facility] [address] [place] [address] INR Coag (PPP) [Relative time] 1.1 {INR} Invalid Interpretation Code [facility] Comment on above: Result Comment: INR results are specifically intended to assess patients stabilized on long-term Anticoagulation therapy suggested INR?s ?Less Intensive Anticoagulation? 2.0 ? 3.0Conventional Range 3.0 ? 4.5 Performed By: #### 2 763194, 87351779, 0077113, 2796755, 6782625, 6126448, 9091409, 96825835, 5372346, 2217853 ####[facility] [address] [place] [address] PT Coag (PPP) [Time] 12.4 second(s) Normal 9.4-12.5 [facility] Comment on above: Result Comment: 15 d [...] the same coagulation reagent and instrumentation as [facility]. Currently there are no coagulation studies available worldwide for children to 14 days, and no normal ranges. Performed By: #### 2 310971, 56830741, 9377800, 9552425, 9023200, 6885027, 0756392, 22607972, 6524572, 1303705 ####[facility] [address] [place] [address] RAD - Preliminary Cat Scan R eporton 11-11-2022 RAD - Preliminary Cat Scan Report [id number]# 1.00CD:127 Normal [facility] TSH With T4fr Reflexon 11-11 TSH Qn 0.45 m[IU]/L Normal 0.34-5.60 [facility] Comment on above: Performed By: #### 1 1109706, 0950692 ####[facility] [address] [place] [address] Troponinon 11-11-2022 Troponin I.cardiac [Mass/Vol] 4.40 pg/mL Low 10.10-27.10 [facility] Comment on above: Result Comment: The 95% CI (Confidence Interval) PPV (Positive Predictive Value) for myocardial infarction in females is 38 pg/mL, in males 51 pg/mL. The results should be used in conjunction with clinical conditions of myocardial infarction.(Access High Sensitivity Troponin I Instructions For Use, [employer], January 2018) Performed By: #### 2 359825, 79601864, 3371469, 5496895, 3826650, 5319399, 6936598, 93071985, 1640198, 5809258 ####[facility] [address] [place] [address] U Drug Screenon 11-11-2022 Amphetamines Screen method >1000 ng/mL Ql (U) Negative Normal Negative [facility] Comment on above: Result Comment: Nega tive Cutoff: <1000 ng/mL Performed By: #### 2 131200 ####[place] [address] Barbiturates Screen Ql (U) Negative Normal Negative [facility] Comment on above: Result Comment: Nega tive Cutoff: <200 ng/mL Performed By: #### 2 812131 ####[facility] [address] [place] [address] Benzodiazepines Ql (U) Negative Normal Negative [facility] Comment on above: Result Comment: Nega tive Cutoff: <200 ng/mL Performed By: #### 2 834485 ####[facility] [address] [place] [address] Cocaine Ql (U) Negative Normal Negative [facility] Comment on above: Result Comment: Nega tive Cutoff: <300 ng/mL Performed By: #### 2 157533 ####[facility] [address] [place] [address] Opiates Screen Ql (U) Positive Abnormal Negative [facility] Comment on above: Result Comment: Crit ical Result verified by repeat analysis\No confirmation requested by Physican\Unconfirmed by alternate method\Critical Result UD_OPIA:POS Called to DR MENDEZ AT ER by PAU [place] And Read Back For Confirmation at: 11/11/2022 00:38:39Negative Cutoff: <300 ng/mL Performed By: #### 2 662054 ####[address] [place] [address] Phencyclidine Screen method >25 ng/mL Ql (U) Negative Normal Negative [facility] Comment on above: Result Comment: Nega tive Cutoff: <25 ng/mLThese drug screen results are to be used for medical (i.e., treatment) purposes only. Unconfirmed drug screening results must not be used for non-medical purposes (e.g., employment testing, legal testing). Performed By: #### 2 343318 ####[address] [address] Tetrahydrocannabinol Screen method >50 ng/mL Ql (U) Negative Normal Negative [facility] Comment on above: Result Comment: Nega tive Cutoff: <50 ng/mL Performed By: #### 2 273307 ####[address] [place] [address] UA With Cult Reflexon 2022 Bilirubin Ql (U) Negative Normal Negative [facility] Comment on above: Performed By: #### 1 6865934 ####[address] [place] [address] Clarity (U) CLEAR Normal Clear [facility] Comment on above: Performed By: #### 1 2928779 ####[address] [place] [address] Color (U) YELLOW Normal Yellow [facility] Comment on above: Performed By: #### 1 0794455 ####[address] [address] Epithelial cells.squamous LM.HPF (Urine sed) [#/Area] 0-2 Normal 0-[address] [facility] Comment on above: Performed By: #### 1 8059865 ####[address] [address] Glucose Test strip (U) [Mass/Vol] Negative Normal Negative [facility] Comment on above: Performed By: #### 1 8935139 ####[address] [address] Hemoglobin Ql (U) Negative Normal Negative [facility] Comment on above: Performed By: #### 1 8890549 ####[address] [address] Ketones (U) [Mass/Vol] Negative Normal Negative [facility] Comment on above: Performed By: #### 1 2782154 ####[address] [address] [place].plasma/[place].R BC (Bld) [Mass ratio] 0-3 Normal 0-3 [facility] Comment on above: Performed By: #### 1 0233852 ####[address] [address] Nitrite Ql (U) Negative Normal Negative [facility] Comment on above: Performed By: #### 1 1514527 ####[address] [address] pH (U) 6.0 [pH] Invalid Interpretation Code 5.0-9.0 [facility] Comment on above: Performed By: #### 1 3319909 ####[address] [address] Protein (U) [Mass/Vol] Negative Normal Negative [facility] Comment on above: Performed By: #### 1 2302364 ####[address] [address] Specific gravity (U) [Rel density] <=1.005 Invalid Interpretation Code 1.005-1.030 [facility] Comment on above: Performed By: #### 1 9224485 ####[facility] [address] [place] [address] Type of Urine collection method Clean Catch Normal [facility] Comment on above: Performed By: #### 1 4712415 ####[facility] [address] [place] [address] Urobilinogen Qn (U) 0.2 {Macie'U}/dL Normal 0.0-1.0 [facility] Comment on above: Performed By: #### 1 9003399 ####[facility] [address] [place] [address] WBC Auto Ql (U) Negative Normal Negative [facility] Comment on above: Performed By: #### 1 7889804 ####[address] [address] WBC LM.HPF (Urine sed) [#/Area] 0-5 Normal 0-5 [facility] Comment on above: Performed By: #### 1 6326590 ####[facility] [address] [place] [address] XR Hand 3+ Views Lefton XR Hand 3+ Views Left Normal [facility] XR Wrist 3+ Views Lefton XR Wrist 3+ Views Left Normal [facility] eGFRon 11-11-2022 GFR/1.73 sq M.predicted among non-blacks MDRD (S/P/Bld) [Vol rate/Area] 25 mL/min/1.73 m2 Low >=59 [facility] Comment on above: Order Comment: Order added by Discern Expert. Result Comment: Network Applications Specialist terrell kidney disease could be indicated at eGFR's of less than 60 mL/min/1.73m2. Kidney failure is indicated at less than 15 mL/min/1.73m2. Performed By: #### 2 095380, 19735139, 1094510, 4836347, 0643430, 4361013, 079104076 ####[facility] [address] [place] [address] GFR/1.73 sq M.predicted among non-blacks MDRD (S/P/Bld) [Vol rate/Area] 20 mL/min/1.73 m2 Low >=59 [facility] Comment on above: Order Comment: Order added by Discern Expert. Result Comment: Network Applications Specialist terrell kidney disease could be indicated at eGFR's of less than 60 mL/min/1.73m2. Kidney failure is indicated at less than 15 mL/min/1.73m2. Performed By: #### 2 926022, 90051103, 2341018, 3058456, 9792714, 2048519, 5083534, 79783774, 6231918, 6227191 ####[facility] [address] [place] [address] Consent for Treatmenton Consent for Treatment [id number] .00CD:127 Normal [facility] CULTURE URINEon 05-30-2022 CULTURE URINE Isolate 1 Escherichia coli >100,000 cfu/mL of ORGANISM 1 Escherichia coli ANTIBIOTIC M.I.C RX STATUS Ampicillin 8 S F Ampicillin/Sulbactam 4 S F Piperacillin/Tazobact am <=4 S F Cefazolin <=4 S F Ceftazidime <=1 S F Ceftriaxone <=1 S F Ertapenem <=0.5 S F Imipenem <=0.25 S F Amikacin <=2 S F Gentamicin <=1 S F Tobramycin <=1 S F Ciprofloxacin <=0.25 S F Levofloxacin <=0.12 S F Nitrofurantoin <=16 S F Trimethoprim/Sulfamet hoxazole <=20 S F Normal [facility] Comment on above: Performed By: #### C MP, HSTROPN #### [facility] [address] [place] [address] Dr. Sahil Turk CBC AUTO DIFFon 05-27-2022 BASO # 0.0 103/ul Normal 0.0-0.1 [facility] Comment on above: Performed By: #### U RTPCR #### [facility] [address] [place], [place] [address] Dr. Sahil Turk Basophils/100 WBC (Bld) 0.3 % Normal 0.2-2.0 [facility] Comment on above: Performed By: #### U RTPCR #### [facility] [address] [place] [address] Dr. Sahil Turk EO # 0.1 103/ul Normal 0.0-0.7 [facility] Comment on above: Performed By: #### U RTPCR #### [facility] [address] [place] [address] Dr. Sahil Turk Eosinophils/100 WBC (Bld) 0.5 % Critically low 0.9-7.0 [facility] Comment on above: Performed By: #### U RTPCR #### [facility] [address] [place] [address] Dr. Sahil Turk Erythrocyte distribution width (RBC) [Ratio] 14.1 % Normal 11.0-15.0 [facility] Comment on above: Performed By: #### U RTPCR #### [facility] [address] [place] [address] Dr. Sahil Turk Hematocrit (Bld) [Volume fraction] 38.6 % Normal 36.0-48.0 [facility] Comment on above: Performed By: #### U RTPCR #### [facility] [address] [place] [address] Dr. Sahil Turk Hemoglobin (Bld) [Mass/Vol] 12.4 g/dL Normal 12.0-16.0 [facility] Comment on above: Performed By: #### U RTPCR #### [facility] [address] [place] [address] Dr. Sahil Turk IG # 0.05 10e3/ul Critically high 0.00-0.03 [facility] Comment on above: Performed By: #### U RTPCR #### [facility] [address] [place] [address] Dr. Sahil Turk IG % 0.5 % Normal 0.0-0.5 [facility] Comment on above: Performed By: #### U RTPCR #### [facility] [address] [place] [address] Dr. Sahil Turk LYMPH # 2.1 103/ul Normal 1.2-3.8 [facility] Comment on above: Performed By: #### U RTPCR #### [facility] [address] [place] [address] Dr. Sahil Turk Lymphocytes/100 WBC (Bld) 19.2 % Critically low 20.5-60.0 [facility] Comment on above: Performed By: #### U RTPCR #### [facility] [address] [place] [address] Dr. Sahil Turk MANUAL DIFF REQ NO Normal [facility] Comment on above: Performed By: #### U RTPCR #### [facility] [address] [place] [address] Dr. Sahil Turk MCH (RBC) [Entitic mass] 29.5 pg Normal 26.7-34.0 [facility] Comment on above: Performed By: #### U RTPCR #### [facility] [address] [place] [address] Dr. Sahil Turk MCHC (RBC) [Mass/Vol] 32.1 g/dL Normal 29.9-35.2 [facility] Comment on above: Performed By: #### U RTPCR #### [facility] [address] [place] [address] Dr. Sahil Turk MCV (RBC) [Entitic vol] 91.9 fL Normal 81.0-99.0 [facility] Comment on above: Performed By: #### U RTPCR #### [facility] [address] [place] [address] Dr. Sahil Turk MONO # 0.5 103/ul Normal 0.3-0.8 [facility] Comment on above: Performed By: #### U RTPCR #### [facility] [address] [place] [address] Dr. Sahil Turk Monocytes/100 WBC (Bld) 4.6 % Normal 1.7-12.0 [facility] Comment on above: Performed By: #### U RTPCR #### [facility] [address] [place] [address] Dr. Sahil Turk NEUT # 8.3 103/ul Critically high 1.4-6.5 [facility] Comment on above: Performed By: #### U RTPCR #### [facility] [address] [place] [address] Dr. Sahil Turk Neutrophils/100 WBC (Bld) 74.9 % Normal 43.0-75.0 [facility] Comment on above: Performed By: #### U RTPCR #### [facility] [address] [place] [address] Dr. Sahil Turk Platelet mean volume (Bld) [Entitic vol] 9.3 fL Critically low 9.5-13.5 [facility] Comment on above: Performed By: #### U RTPCR #### [facility] [address] [place] [address] Dr. Sahil Turk PLT 222 103/ul Normal 150-450 [facility] Comment on above: Performed By: #### U RTPCR #### [facility] [address] [place] [address] Dr. Sahil Turk RBC 4.20 106/ul Normal 4.20-5.40 [facility] Comment on above: Performed By: #### U RTPCR #### [facility] [address] [place] [address] Dr. Sahil Turk WBC 11.0 103/ul Normal 4.0-11.0 [facility] Comment on above: Performed By: #### U RTPCR #### [facility] [address] [place] [address] Dr. Sahil Turk ER URINE PROFILEon 2 Bilirubin Ql (U) Negative Normal NEGATIVE [facility] Comment on above: Performed By: #### C MP, HSTROPN #### [facility] [address] [place] [address] Dr. Sahil Turk Clarity (U) CLEAR Normal CLEAR [facility] Comment on above: Performed By: #### C MP, HSTROPN #### [facility] [address] [place] [address] Dr. Sahil Turk Color (U) LT. YELLOW Normal YELLOW [facility] Comment on above: Performed By: #### C MP, HSTROPN #### [facility] [address] [place] [address] [address] Sahil HAINES A micrscopic examination will be performed if indicated. Normal [facility] Comment on above: Performed By: #### C MP, HSTROPN #### [facility] [address] [place] [address] Dr. Sahil Turk Glucose Ql (U) Negative Normal NEGATIVE [facility] Comment on above: Performed By: #### C MP, HSTROPN #### [facility] [address] [place] [address] Dr. Sahil Turk Hemoglobin Ql (U) Negative Normal NEGATIVE [facility] Comment on above: Performed By: #### C MP, HSTROPN #### [facility] [address] [place] [address] Dr. Sahil Turk Ketones Ql (U) Negative Normal NEGATIVE [facility] Comment on above: Performed By: #### C MP, HSTROPN #### [facility] [address] [place] [address] Dr. Sahil Turk LEUKOCYTES SMALL Abnormal NEGATIVE [facility] Comment on above: Performed By: #### C MP, HSTROPN #### [facility] [address] [place] [address] Dr. Sahil Turk Nitrite Ql (U) Positive Abnormal NEGATIVE [facility] Comment on above: Performed By: #### C MP, HSTROPN #### [facility] [address] [place] [address] Dr. Sahil Turk pH (U) 7.0 [pH] Normal 5-9 [facility] Comment on above: Performed By: #### C MP, HSTROPN #### [facility] [address] [place] [address] Dr. Sahil Turk SPEC GRAVITY 1.010 Normal 1.005-<=1.0 25 [facility] Comment on above: Performed By: #### C MP, HSTROPN #### [facility] [address] [address] [address] Sahil Turk UA PROTEIN Negative Normal NEGATIVE/ TRACE [facility] Comment on above: Performed By: #### C MP, HSTROPN #### [facility] [address] [place] [address] Dr. Sahil Turk UR MICRO IND INDICATED Normal [facility] Comment on above: Performed By: #### C JAYY, HSTROPN #### [facility] [address] [address] [address] Sahil Turk Urobilinogen Qn (U) 0.2 {Macie'U}/dL Normal 0.2 - 1. 0 [facility] Comment on above: Performed By: #### C JAYY, HSTROPN #### [facility] [address] [place] [address] Dr. Sahil Turk PROF 14(COMP METB)on 022 Albumin [Mass/Vol] 3.5 g/dL Normal 3.4-5.0 [facility] Comment on above: Performed By: #### C JAYY, HSTROPN #### [facility] [address] [place] [address] Dr. Sahil Turk Albumin/Globulin [Mass ratio] 0.9 {ratio} Normal [facility] Comment on above: Performed By: #### C JAYY, HSTROPN #### [facility] [address] [place] [address] Dr. Sahil uTrk ALP [Catalytic activity/Vol] 81 U/L Normal 46-116 [facility] Comment on above: Performed By: #### C MP, HSTROPN #### [facility] [address] [address] [address] Sahil Turk ALT [Catalytic activity/Vol] 15 U/L Normal 14-59 [facility] Comment on above: Performed By: #### C MP, HSTROPN #### [facility] [address] [place] [address] Dr. Sahil Turk Anion gap [Moles/Vol] 9.7 mmol/L Normal [facility] Comment on above: Performed By: #### C MP, HSTROPN #### [facility] [address] [address] [address] Sahil Turk AST [Catalytic activity/Vol] 20 U/L Normal 15-37 [facility] Comment on above: Performed By: #### C MP, HSTROPN #### [facility] [address] [place] [address] Dr. Sahil Turk Bilirubin [Mass/Vol] 0.5 mg/dL Normal 0.2-1.0 [facility] Comment on above: Performed By: #### C MP, HSTROPN #### [facility] [address] [place] [address] Dr. Sahil Turk Calcium [Mass/Vol] 9.5 mg/dL Normal 8.5-10.1 [facility] Comment on above: Performed By: #### C MP, HSTROPN #### [facility] [address] [place] [address] Dr. Sahil Turk Chloride [Moles/Vol] 100 mmol/L Normal 98-107 [facility] Comment on above: Performed By: #### C JAYY, HSTROPN #### [facility] [address] [place] [address] Dr. Sahil Turk CO2 [Moles/Vol] 36.1 mmol/L Critically high 21.0-32.0 [facility] Comment on above: Performed By: #### C MP, HSTROPN #### [facility] [address] [address] [address] Sahil Turk Creatinine [Mass/Vol] 1.67 mg/dL Critically high 0.55-1.02 [facility] Comment on above: Performed By: #### C MP, HSTROPN #### [facility] [address] [place] [address] Dr. Sahil Turk EGFR-AF RUSSIAN 36 mL/min/1.73m2 Critically low >=60 [facility] Comment on above: Performed By: #### C MP, HSTROPN #### [facility] [address] [place] [address] Dr. Sahil Turk EGFR-NON AF RUSSIAN 30 mL/min/1.73m2 Critically low >=60 [facility] Comment on above: Performed By: #### C MP, HSTROPN #### [facility] [address] [address] [address] Sahil Turk Globulin (S) [Mass/Vol] 3.8 g/dL Normal [facility] Comment on above: Performed By: #### C MP, HSTROPN #### [facility] [address] [place] [address] Dr. Sahil Turk Glucose [Mass/Vol] 181 mg/dL Critically high 74-106 [facility] Comment on above: Performed By: #### C MP, HSTROPN #### [facility] [address] [place] [address] Dr. Sahil Turk Potassium [Moles/Vol] 3.8 mmol/L Normal 3.5-5.1 [facility] Comment on above: Performed By: #### C MP, HSTROPN #### [facility] [address] [place] [address] Dr. Sahil Turk Protein [Mass/Vol] 7.3 g/dL Normal 6.4-8.2 [facility] Comment on above: Performed By: #### C MP, HSTROPN #### [facility] [address] [place] [address] Dr. Sahil Turk Sodium [Moles/Vol] 142 mmol/L Normal 136-145 [facility] Comment on above: Performed By: #### C MP, HSTROPN #### [facility] [address] [place] [address] Dr. Sahil Turk Urea nitrogen [Mass/Vol] 18.0 mg/dL Normal 7.0-18.0 [facility] Comment on above: Performed By: #### C MP, HSTROPN #### [facility] [address] [place] [address] Dr. Sahil Turk Urea nitrogen/Creatinine [Mass ratio] 10.8 mg/mg Normal [facility] Comment on above: Performed By: #### C MP, HSTROPN #### [facility] [address] [place] [address] Dr. Sahil Turk PROTIMEon 05-27-2022 INR Coag (PPP) [Relative time] 1.09 {INR} Normal [facility] Comment on above: Performed By: #### U RTPCR #### [facility] [address] [place] [address] Dr. Sahil Turk INR GUIDELINES SEE BELOW Normal [facility] Comment on above: Result Comment: LUIS ANGEL RED INR: 2.0 - 3.0 CONDITIONS NOT LISTED BELOW 2.5 - 3.5 FOR PROSTHETIC HEART VALVE REPLACEMENT 2.5 - 3.5 RECURRENT THROMBOSIS Performed By: #### U RTPCR #### [facility] [address] [place] [address] Dr. Sahil Turk PT Coag (PPP) [Time] 11.7 s Critically high 9.0-11.6 [facility] Comment on above: Performed By: #### U RTPCR #### [facility] [address] [place] [address] Dr. Sahil Turk PTTon 05-27-2022 aPTT Coag (Bld) [Time] 30.6 s Normal 22.3-36.2 Th e [facility] Comment on above: Performed By: #### U RTPCR #### [facility] [address] [place] [address] Dr. Sahil Turk TROPONIN, HIGH SENSITIVITYon 05-27-2022 HSTROP 7.1 pg/mL Normal 4.0-51.3 [facility] Comment on above: Result Comment: CUT- OFF POINTS HAVE BEEN ESTABLISHED BASED ON THE FOURTH UNIVERSAL DEFINITIONS OF MYOCARDIAL INFARCTION. THE UPPER REFERENCE LIMIT (URL) OF TROPONIN, DEFINED THE 99TH PERCENTILE OF cTnI DISTRIBUTION IN A REFERENCE POPULATION, HAS BEEN CONFIRMED THE DECISION THRESHOLD FOR TN DIAGNOSIS. Performed By: #### C MP, HSTROPN #### [facility] [address] [place] [address] Dr. Sahil Turk URINE MICROSCOPIC ONLYon BACTERIA LARGE Abnormal NONE SEEN The [facility] Comment on above: Performed By: #### C MP, HSTROPN #### [facility] [address] [place] [address] Dr. Sahil Turk Bacteria identified Cx Nom (U) INDICATED Normal [facility] Comment on above: Performed By: #### C MP, HSTROPN #### [facility] [address] [place] [address] Dr. Sahil Turk CAST NONE SEEN Normal NONE SEEN The [facility] Comment on above: Performed By: #### C MP, HSTROPN #### [facility] [address] [place] [address] Dr. Sahil Turk Crystals LM Nom (Urine sed) NONE SEEN Normal NONE SEEN [facility] Comment on above: Performed By: #### C MP, HSTROPN #### [facility] [address] [place] [address] Dr. Sahil Turk Epithelial cells LM Ql (Urine sed) RARE Normal NONE SEEN /RARE [facility] Comment on above: Performed By: #### C MP, HSTROPN #### [facility] [address] [place] [address] Dr. Sahil Turk MUCOUS NONE SEEN Normal NONE SEEN [facility] Comment on above: Performed By: #### C MP, HSTROPN #### [facility] [address] [place] [address] Dr. Sahil Turk RBC 0-2 Normal 0-2 [facility] Comment on above: Performed By: #### C MP, HSTROPN #### [facility] [address] [place] [address] Dr. Sahil Turk WBC 0-2 Abnormal NONE SEEN The [facility] Comment on above: Performed By: #### C MP, HSTROPN #### [facility] [address] [place] [address] Dr. Sahil Turk XR CHEST 1 Von [...] by: EDGARD GOMEZ Date: 2022-05-27 21:31 Normal [facility] CULTURE URINEon 03-13-2022 CULTURE URINE Isolate 1 Escherichia coli >100,000 cfu/mL of ORGANISM 1 Escherichia coli ANTIBIOTIC M.I.C RX STATUS Ampicillin >=32 R F Ampicillin/Sulbactam 4 S F Piperacillin/Tazobact am <=4 S F Cefazolin <=4 S F Ceftazidime <=1 S F Ceftriaxone <=1 S F Ertapenem <=0.5 S F Imipenem <=0.25 S F Amikacin <=2 S F Gentamicin >=16 R F Tobramycin 8 I F Ciprofloxacin <=0.25 S F Levofloxacin <=0.12 S F Nitrofurantoin <=16 S F Trimethoprim/Sulfamet hoxazole <=20 S F Normal [facility] Comment on above: Performed By: #### C ACACIA HOPE #### [facility] [address] [place] [address] Dr. Sahil Turk BNPon 03-11-2022 Natriuretic peptide B (Bld) [Mass/Vol] 449.0 pg/mL Normal <=1,800.0 [facility] Comment on above: Performed By: #### U RTPCR #### [facility] [address] [place] [address] Dr. Sahil Turk CBC AUTO DIFFon 03-11-2022 BASO # 0.0 103/ul Normal 0.0-0.1 [facility] Comment on above: Performed By: #### C NATHEN HOPETRDREWN #### [facility] [address] [place] [address] Dr. Sahil Turk Basophils/100 WBC (Bld) 0.6 % Normal 0.2-2.0 [facility] Comment on above: Performed By: #### C JAYY, HSTROPN #### [facility] [address] [place] [address] Dr. Sahil Turk EO # 0.1 103/ul Normal 0.0-0.7 [facility] Comment on above: Performed By: #### C JAYY, HSTROPN #### [facility] [address] [place] [address] Dr. Sahil Turk Eosinophils/100 WBC (Bld) 2.8 % Normal 0.9-7.0 [facility] Comment on above: Performed By: #### C JAYY, HSTROPN #### [facility] [address] [place] [address] Dr. Sahil Turk Erythrocyte distribution width (RBC) [Ratio] 13.7 % Normal 11.0-15.0 [facility] Comment on above: Performed By: #### C JAYY HSTROPN #### [facility] [address] [place] [address] Dr. Sahil Turk Hematocrit (Bld) [Volume fraction] 39.2 % Normal 36.0-48.0 [facility] Comment on above: Performed By: #### C JAYY HSTROPN #### [facility] [address] [place] [address] Dr. Sahil Turk Hemoglobin (Bld) [Mass/Vol] 12.7 g/dL Normal 12.0-16.0 [facility] Comment on above: Performed By: #### C JAYY, HSTROPN #### [facility] [address] [place] [address] Dr. Sahil Turk IG # 0.01 10e3/ul Normal 0.00-0.03 [facility] Comment on above: Performed By: #### C JAYY, HSTROPN #### [facility] [address] [place] [address] Dr. Sahil Turk IG % 0.2 % Normal 0.0-0.5 [facility] Comment on above: Performed By: #### C JAYY, HSTROPN #### [facility] [address] [place] [address] Dr. Sahil Turk LYMPH # 1.9 103/ul Normal 1.2-3.8 [facility] Comment on above: Performed By: #### C JAYY, HSTROPN #### [facility] [address] [place] [address] Dr. Sahil Turk Lymphocytes/100 WBC (Bld) 37.8 % Normal 20.5-60.0 [facility] Comment on above: Performed By: #### C JAYY, HSTROPN #### [facility] [address] [place] [address] Dr. Sahil Turk MANUAL DIFF REQ NO Normal [facility] Comment on above: Performed By: #### C JAYY, HSTROPN #### [facility] [address] [place] [address] Dr. Sahil Turk MCH (RBC) [Entitic mass] 30.5 pg Normal 26.7-34.0 [facility] Comment on above: Performed By: #### C JAYY, HSTROPN #### [facility] [address] [place] [address] Dr. Sahil Turk MCHC (RBC) [Mass/Vol] 32.4 g/dL Normal 29.9-35.2 [facility] Comment on above: Performed By: #### C JAYY, HSTROPN #### [facility] [address] [place] [address] Dr. Sahil Turk MCV (RBC) [Entitic vol] 94.0 fL Normal 81.0-99.0 [facility] Comment on above: Performed By: #### C JAYY, HSTROPN #### [facility] [address] [place] [address] Dr. Sahil Turk MONO # 0.4 103/ul Normal 0.3-0.8 [facility] Comment on above: Performed By: #### C JAYY, HSTROPN #### [facility] [address] [place] [address] Dr. Sahil Turk Monocytes/100 WBC (Bld) 7.0 % Normal 1.7-12.0 [facility] Comment on above: Performed By: #### C MP, HSTROPN #### [facility] [address] [address] [address] Sahil Turk NEUT # 2.6 103/ul Normal 1.4-6.5 [facility] Comment on above: Performed By: #### C MP, HSTROPN #### [facility] [address] [place] [address] Dr. Sahil Turk Neutrophils/100 WBC (Bld) 51.6 % Normal 43.0-75.0 [facility] Comment on above: Performed By: #### C MP, HSTROPN #### [facility] [address] [place] [address] Dr. Sahil Turk Platelet mean volume (Bld) [Entitic vol] 9.9 fL Normal 9.5-13.5 [facility] Comment on above: Performed By: #### C MP, HSTROPN #### [facility] [address] [place] [address] Dr. Sahil Turk PLT 220 103/ul Normal 150-450 [facility] Comment on above: Performed By: #### C MP, HSTROPN #### [facility] [address] [place] [address] Dr. Sahil Turk RBC 4.17 106/ul Critically low 4.20-5.40 [facility] Comment on above: Performed By: #### C MP, HSTROPN #### [facility] [address] [place] [address] Dr. Sahil Turk WBC 5.0 103/ul Normal 4.0-11.0 [facility] Comment on above: Performed By: #### C MP, HSTROPN #### [facility] [address] [place] [address] Dr. Sahil Turk ER URINE PROFILEon 2 Bilirubin Ql (U) Negative Normal NEGATIVE [facility] Comment on above: Performed By: #### M G, RENAL, URIC #### [facility] [address] [place] [address] Dr. Sahil Turk Clarity (U) CLEAR Normal CLEAR [facility] Comment on above: Performed By: #### M G, RENAL, URIC #### [facility] [address] [address] [address] Sahil Turk Color (U) LT. YELLOW Normal YELLOW [facility] Comment on above: Performed By: #### M G, RENAL, URIC #### [facility] [address] [address] [address] Sahil SOAHJuliocesar A micrscopic examination will be performed if indicated. Normal [facility] Comment on above: Performed By: #### M G, RENAL, URIC #### [facility] [address] [address] [address] Sahil Turk Glucose Ql (U) Negative Normal NEGATIVE [facility] Comment on above: Performed By: #### M G, RENAL, URIC #### [facility] [address] [place] [address] Dr. Sahil Turk Hemoglobin Ql (U) Negative Normal NEGATIVE [facility] Comment on above: Performed By: #### M G, RENAL, URIC #### [facility] [address] [address] [address] Sahil Turk Ketones Ql (U) Negative Normal NEGATIVE [facility] Comment on above: Performed By: #### M G, RENAL, URIC #### [facility] [address] [address] [address] Sahil Turk LEUKOCYTES SMALL Abnormal NEGATIVE [facility] Comment on above: Performed By: #### M G, RENAL, URIC #### [facility] [address] [address] [address] Sahil Turk Nitrite Ql (U) Positive Abnormal NEGATIVE [facility] Comment on above: Performed By: #### M G, RENAL, URIC #### [facility] [address] [place] [address] Dr. Sahil Turk pH (U) 6.5 [pH] Normal 5-9 [facility] Comment on above: Performed By: #### M G, RENAL, URIC #### [facility] [address] [place] [address] Dr. Sahil Turk SPEC GRAVITY 1.010 Normal 1.005-<=1.0 25 [facility] Comment on above: Performed By: #### M G, RENAL, URIC #### [facility] [address] [place] [address] Dr. Sahil Turk UA PROTEIN Negative Normal NEGATIVE/ TRACE [facility] Comment on above: Performed By: #### M G, RENAL, URIC #### [facility] [address] [place] [address] Dr. Sahil Turk UR MICRO IND INDICATED Normal [facility] Comment on above: Performed By: #### M G, RENAL, URIC #### [facility] [address] [place] [address] Dr. Sahil Turk Urobilinogen Qn (U) 0.2 {Macie'U}/dL Normal 0.2 - 1. 0 [facility] Comment on above: Performed By: #### M G, RENAL, URIC #### [facility] [address] [place] [address] Dr. Sahil Turk LIPASEon 03-11-2022 Lipase [Catalytic activity/Vol] 40.0 U/L Critically low 73.0-393.0 [facility] Comment on above: Performed By: #### U RTPCR #### [facility] [address] [place] [address] Dr. Sahil Turk PROF 14(COMP METB)on 022 Albumin [Mass/Vol] 3.5 g/dL Normal 3.4-5.0 [facility] Comment on above: Performed By: #### M G, RENAL, URIC #### [facility] [address] [place] [address] Dr. Sahil Turk Albumin/Globulin [Mass ratio] 1.1 {ratio} Normal [facility] Comment on above: Performed By: #### M G, RENAL, URIC #### [facility] [address] [place] [address] Dr. Sahil Turk ALP [Catalytic activity/Vol] 69 U/L Normal 46-116 [facility] Comment on above: Performed By: #### M G, RENAL, URIC #### [facility] [address] [address] [address] Sahil Turk ALT [Catalytic activity/Vol] 18 U/L Normal 14-59 [facility] Comment on above: Performed By: #### M G, RENAL, URIC #### [facility] [address] [address] [address] Sahil Turk Anion gap [Moles/Vol] 10.6 mmol/L Normal Th [facility] Comment on above: Performed By: #### M G, RENAL, URIC #### [facility] [address] [address] [address] Sahil Turk AST [Catalytic activity/Vol] 21 U/L Normal 15-37 [facility] Comment on above: Performed By: #### M G, RENAL, URIC #### [facility] [address] [place] [address] Dr. Sahil Turk Bilirubin [Mass/Vol] 0.4 mg/dL Normal 0.2-1.0 [facility] Comment on above: Performed By: #### M G, RENAL, URIC #### [facility] [address] [address] [address] Sahil Turk Calcium [Mass/Vol] 9.6 mg/dL Normal 8.5-10.1 [facility] Comment on above: Performed By: #### M G, RENAL, URIC #### [facility] [address] [address] [address] Sahil Turk Chloride [Moles/Vol] 102 mmol/L Normal 98-107 [facility] Comment on above: Performed By: #### M G, RENAL, URIC #### [facility] [address] [address] [address] Sahil Turk CO2 [Moles/Vol] 33.1 mmol/L Critically high 21.0-32.0 [facility] Comment on above: Performed By: #### M G, RENAL, URIC #### [facility] [address] [address] [address] Sahil Turk Creatinine [Mass/Vol] 1.40 mg/dL Critically high 0.55-1.02 [facility] Comment on above: Performed By: #### M G, RENAL, URIC #### [facility] [address] [address] [address] Sahil Turk EGFR-AF RUSSIAN 44 mL/min/1.73m2 Critically low >=60 [facility] Comment on above: Performed By: #### M G, RENAL, URIC #### [facility] [address] [place] [address] Dr. Sahil Turk EGFR-NON AF RUSSIAN 36 mL/min/1.73m2 Critically low >=60 [facility] Comment on above: Performed By: #### M G, RENAL, URIC #### [facility] [address] [place] [address] Dr. Sahil Turk Globulin (S) [Mass/Vol] 3.3 g/dL Normal [facility] Comment on above: Performed By: #### M G, RENAL, URIC #### [facility] [address] [place] [address] Dr. Sahil Turk Glucose [Mass/Vol] 107 mg/dL Critically high 74-106 [facility] Comment on above: Performed By: #### M G, RENAL, URIC #### [facility] [address] [place] [address] Dr. Sahil Turk Potassium [Moles/Vol] 3.7 mmol/L Normal 3.5-5.1 [facility] Comment on above: Performed By: #### M G, RENAL, URIC #### [facility] [address] [place] [address] Dr. Sahil Turk Protein [Mass/Vol] 6.8 g/dL Normal 6.4-8.2 [facility] Comment on above: Performed By: #### M G, RENAL, URIC #### [facility] [address] [place] [address] Dr. Sahil Turk Sodium [Moles/Vol] 142 mmol/L Normal 136-145 [facility] Comment on above: Performed By: #### M G, RENAL, URIC #### [facility] [address] [place] [address] Dr. Sahil Turk Urea nitrogen [Mass/Vol] 16.0 mg/dL Normal 7.0-18.0 [facility] Comment on above: Performed By: #### M G, RENAL, URIC #### [facility] [address] [address] [address] Sahil Turk Urea nitrogen/Creatinine [Mass ratio] 11.4 mg/mg Normal [facility] Comment on above: Performed By: #### M G, RENAL, URIC #### [facility] [address] [address] [address] Sahil Turk PROTIMEon 03-11-2022 INR Coag (PPP) [Relative time] 1.03 {INR} Normal [facility] Comment on above: Performed By: #### C MP, HSTROPN #### [facility] [address] [place] [address] Dr. Sahil Turk INR GUIDELINES SEE BELOW Normal [facility] Comment on above: Result Comment: LUIS ANGEL RED INR: 2.0 - 3.0 CONDITIONS NOT LISTED BELOW 2.5 - 3.5 FOR PROSTHETIC HEART VALVE REPLACEMENT 2.5 - 3.5 RECURRENT THROMBOSIS Performed By: #### C MP, HSTROPN #### [facility] [address] [place] [address] Dr. Sahil Turk PT Coag (PPP) [Time] 11.1 s Normal 9.0-11.6 [facility] Comment on above: Performed By: #### C MP, HSTROPN #### [facility] [address] [place] [address] Dr. Sahil Turk PTTon 03-11-2022 aPTT Coag (Bld) [Time] 25.4 s Normal 22.3-36.2 Th e [facility] Comment on above: Performed By: #### C MP, HSTROPN #### [facility] [address] [place] [address] Dr. Sahil Turk TROPONIN, HIGH SENSITIVITYon 03-11-2022 HSTROP 7.5 pg/mL Normal 4.0-51.3 [facility] Comment on above: Result Comment: CUT- OFF POINTS HAVE BEEN ESTABLISHED BASED ON THE FOURTH UNIVERSAL DEFINITIONS OF MYOCARDIAL INFARCTION. THE UPPER REFERENCE LIMIT (URL) OF TROPONIN, DEFINED THE 99TH PERCENTILE OF cTnI DISTRIBUTION IN A REFERENCE POPULATION, HAS BEEN CONFIRMED THE DECISION THRESHOLD FOR TN DIAGNOSIS. Performed By: #### M G, RENAL, URIC #### [facility] [address] [place] [address] Dr. Sahil Turk HSTROP 7.9 pg/mL Normal 4.0-51.3 [facility] Comment on above: Result Comment: CUT- OFF POINTS HAVE BEEN ESTABLISHED BASED ON THE FOURTH UNIVERSAL DEFINITIONS OF MYOCARDIAL INFARCTION. THE UPPER REFERENCE LIMIT (URL) OF TROPONIN, DEFINED THE 99TH PERCENTILE OF cTnI DISTRIBUTION IN A REFERENCE POPULATION, HAS BEEN CONFIRMED THE DECISION THRESHOLD FOR TN DIAGNOSIS. Performed By: #### U RTPCR #### [facility] [address] [place] [address] Dr. Sahil Turk URINE MICROSCOPIC ONLYon BACTERIA SMALL Abnormal NONE SEEN [facility] Comment on above: Performed By: #### M G, RENAL, URIC #### [facility] [address] [place] [address] Dr. Sahil Turk Bacteria identified Cx Nom (U) INDICATED Normal [facility] Comment on above: Performed By: #### M G, RENAL, URIC #### [facility] [address] [place] [address] Dr. Sahil Turk CAST NONE SEEN Normal NONE SEEN [facility] Comment on above: Performed By: #### M G, RENAL, URIC #### [facility] [address] [place] [address] Dr. Sahil Turk Crystals LM Nom (Urine sed) NONE SEEN Normal NONE SEEN [facility] Comment on above: Performed By: #### M G, RENAL, URIC #### [facility] [address] [place] [address] Dr. Sahil Turk Epithelial cells LM Ql (Urine sed) RARE Normal NONE SEEN /RARE [facility] Comment on above: Performed By: #### M G, RENAL, URIC #### [facility] [address] [place] [address] Dr. Sahil Turk MUCOUS NONE SEEN Normal NONE SEEN [facility] Comment on above: Performed By: #### M G, RENAL, URIC #### [facility] [address] [place], [place] [address] Dr. Sahil Turk RBC 0-2 Normal 0-2 [facility] Comment on above: Performed By: #### M G, RENAL, URIC #### [facility] [address] [place], [place] [address] Dr. Sahil Turk WBC 5-10 Abnormal NONE SEEN [facility] Comment on above: Performed By: #### M G, RENAL, URIC #### [facility] [address] [place], [place] [address] Dr. Sahil Turk XR CHEST 1 Von 03-11-2022 XR CHEST 1 V PORTABLE CHEST X-RAY . INDICATION: Chest pain. COMPARISON: 07/18/2019 TECHNIQUE: Single AP portable chest radiograph. FINDINGS: TUBES AND LINES: None. LUNGS: Lungs are clear. PLEURA: No effusions or pneumothorax. HEART AND MEDIASTINUM: Within normal limits for portable technique. OSSEOUS STRUCTURES: No acute abnormality. IMPRESSION: No acute findings. Electronically authenticated by: HAWK MUNGUIA Date: 2022-03-11 14:27 Normal [facility] CT CSPINE WO CONon 2 CT CSPINE [...] by: LEISA CELAYA Date: 2022-02-22 08:12 Normal [facility] CT HEAD WO CONon 02-21-2022 CT HEAD [...] ANDRADE LEWIS Date: 2022-02-21 16:40 Normal [facility] CT LSPINE WO CONon CT [place] WO CON EXAMINATION: CT [place] WO CON, 02/21/2022, 3:54 PM EDT HISTORY: Pain COMPARISON: None. TECHNIQUE: CT of the lumbar spine was performed without IV contrast. CT dose reduction technique was used, including Automated Exposure Control. FINDINGS: BOY'S ADVISER RADIOGRAPH: Unremarkable. MINERALIZATION: Probable mild osteopenia. 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 Order #: [id number] CLICK HERE TO VIEW EXAM ECHOCARDIOGRAM REPORT [...] Herrera M.D. on 01/06/2022 at 17:18 Normal [facility] PTH INTACTon 12-11-2021 PTH, Intact 31 pg/mL Normal 15-65 [facility] Comment on above: Performed By: #### C MP, HSTROPN #### [facility] [address] [place] [address] Dr. Sahil Turk FERRITINon 12-10-2021 Ferritin [Mass/Vol] 53.0 ng/mL Normal 8.0-252.0 [facility] Comment on above: Performed By: #### C MP, HSTROPN #### [facility] [address] [place] [address] Dr. Sahil Turk HEMOGRAM AND PLATELon 2021 Hematocrit (Bld) [Volume fraction] 38.4 % Normal 36.0-48.0 [facility] Comment on above: Performed By: #### M G, RENAL, URIC #### [facility] [address] [place] [address] Dr. Sahil Turk Hemoglobin (Bld) [Mass/Vol] 12.5 g/dL Normal 12.0-16.0 [facility] Comment on above: Performed By: #### M G, RENAL, URIC #### [facility] [address] [place] [address] Dr. Sahil Turk MCH (RBC) [Entitic mass] 29.4 pg Normal 26.7-34.0 [facility] Comment on above: Performed By: #### M G, RENAL, URIC #### [facility] [address] [place] [address] Dr. Sahil Turk MCHC (RBC) [Mass/Vol] 32.6 g/dL Normal 29.9-35.2 [facility] Comment on above: Performed By: #### M G, RENAL, URIC #### [facility] [address] [address] [address] Sahil Turk MCV (RBC) [Entitic vol] 90.4 fL Normal 81.0-99.0 [facility] Comment on above: Performed By: #### M G, RENAL, URIC #### [facility] [address] [address] [address] Sahil Turk PLT 263 103/ul Normal 150-450 [facility] Comment on above: Performed By: #### M G, RENAL, URIC #### [facility] [address] [address] [address] Sahil Turk RBC 4.25 106/ul Normal 4.20-5.40 [facility] Comment on above: Performed By: #### Letitia G, RENAL, URIC #### [facility] [address] [address] [address] Sahil Turk WBC 7.1 103/ul Normal 4.0-11.0 [facility] Comment on above: Performed By: #### M G, RENAL, URIC #### [facility] [address] [address] [address] Sahil Turk IRON AND TIBCon 12-10-2021 % SATURATION 20.3 % Normal [facility] Comment on above: Performed By: #### C MP, HSTROPN #### [facility] [address] [address] [address] Sahil Turk Iron [Mass/Vol] 61.0 ug/dL Normal 50.0-170.0 [facility] Comment on above: Performed By: #### C MP, HSTROPN #### [facility] [address] [address] [address] Sahil Turk TIBC DIRECT 300.0 ug/dL Normal 250.0-450.0 [facility] Comment on above: Performed By: #### C MP, HSTROPN #### [facility] [address] [address] [address] Sahil Turk MAGNESIUMon 12-10-2021 Magnesium [Mass/Vol] 1.7 mg/dL Critically low 1.8-2.4 [facility] Comment on above: Performed By: #### M G, RENAL, URIC #### [facility] [address] [address] [address] Sahil Turk RENAL FUNCTION PANELon 12-10 Albumin [Mass/Vol] 3.7 g/dL Normal 3.4-5.0 [facility] Comment on above: Performed By: #### M G, RENAL, URIC #### [facility] [address] [place] [address] Dr. Sahil Turk Calcium [Mass/Vol] 9.6 mg/dL Normal 8.5-10.1 [facility] Comment on above: Performed By: #### M G, RENAL, URIC #### [facility] [address] [place] [address] Dr. Sahli Turk Chloride [Moles/Vol] 102 mmol/L Normal 98-107 [facility] Comment on above: Performed By: #### M G, RENAL, URIC #### [facility] [address] [place] [address] Dr. Sahil Turk CO2 [Moles/Vol] 28.3 mmol/L Normal 21.0-32.0 [facility] Comment on above: Performed By: #### M G, RENAL, URIC #### [facility] [address] [place] [address] Dr. Sahil Turk Creatinine [Mass/Vol] 1.42 mg/dL Critically high 0.55-1.02 [facility] Comment on above: Performed By: #### M G, RENAL, URIC #### [facility] [address] [place] [address] Dr. Sahil Turk EGFR-AF RUSSIAN 43 mL/min/1.73m2 Critically low >=60 [facility] Comment on above: Performed By: #### M G, RENAL, URIC #### [facility] [address] [place] [address] Dr. Sahil Turk EGFR-NON AF RUSSIAN 36 mL/min/1.73m2 Critically low >=60 [facility] Comment on above: Performed By: #### M G, RENAL, URIC #### [facility] [address] [address] [address] Sahil Turk Glucose [Mass/Vol] 112 mg/dL Critically high 74-106 [facility] Comment on above: Performed By: #### M G, RENAL, URIC #### [facility] [address] [address] [address] Sahil Turk Phosphate [Mass/Vol] 3.4 mg/dL Normal 2.6-4.7 [facility] Comment on above: Performed By: #### M G, RENAL, URIC #### [facility] [address] [place] [address] Dr. Sahil Turk Potassium [Moles/Vol] 3.9 mmol/L Normal 3.5-5.1 [facility] Comment on above: Performed By: #### M G, RENAL, URIC #### [facility] [address] [place] [address] Dr. Sahil Turk Sodium [Moles/Vol] 140 mmol/L Normal 136-145 [facility] Comment on above: Performed By: #### M G, RENAL, URIC #### [facility] [address] [place] [address] Dr. Sahil Turk Urea nitrogen [Mass/Vol] 29.0 mg/dL Critically high 7.0-18 .0 [facility] Comment on above: Performed By: #### M G, RENAL, URIC #### [facility] [address] [place] [address] Dr. Sahil Turk UA RANDOM W/MICROSCOPICon BACTERIA NONE SEEN Normal NONE SEEN [facility] Comment on above: Performed By: #### M G, RENAL, URIC #### [facility] [address] [place] [address] Dr. Sahil Turk Bilirubin Ql (U) Negative Normal NEGATIVE [facility] Comment on above: Performed By: #### M G, RENAL, URIC #### [facility] [address] [address] [address] Sahil Turk CAST NONE SEEN Normal NONE SEEN [facility] Comment on above: Performed By: #### M G, RENAL, URIC #### [facility] [address] [address] [address] Sahil Turk Clarity (U) CLEAR Normal CLEAR [facility] Comment on above: Performed By: #### M G, RENAL, URIC #### [facility] [address] [address] [address] Sahil Turk Color (U) LT. YELLOW Normal YELLOW [facility] Comment on above: Performed By: #### M G, RENAL, URIC #### [facility] [address] [place] [address] Dr. Sahil Turk Crystals LM Nom (Urine sed) NONE SEEN Normal NONE SEEN [facility] Comment on above: Performed By: #### M G, RENAL, URIC #### [facility] [address] [place] [address] Dr. Sahil Turk Epithelial cells LM Ql (Urine sed) NONE SEEN Normal NONE SEEN /RARE [facility] Comment on above: Performed By: #### M G, RENAL, URIC #### [facility] [address] [place] [address] Dr. Sahil Turk Glucose Ql (U) Negative Normal NEGATIVE [facility] Comment on above: Performed By: #### M G, RENAL, URIC #### [facility] [address] [place] [address] Dr. Sahil Turk Hemoglobin Ql (U) Negative Normal NEGATIVE [facility] Comment on above: Performed By: #### M G, RENAL, URIC #### [facility] [address] [place] [address] Dr. Sahil Turk Ketones Ql (U) Negative Normal NEGATIVE [facility] Comment on above: Performed By: #### M G, RENAL, URIC #### [facility] [address] [place] [address] Dr. Sahil Turk LEUKOCYTES Negative Normal NEGATIVE [facility] Comment on above: Performed By: #### M G, RENAL, URIC #### [facility] [address] [address] [address] Sahil Turk MUCOUS NONE SEEN Normal NONE SEEN [facility] Comment on above: Performed By: #### M G, RENAL, URIC #### [facility] [address] [place] [address] Dr. Sahil Turk Nitrite Ql (U) Negative Normal NEGATIVE [facility] Comment on above: Performed By: #### M G, RENAL, URIC #### [facility] [address] [place] [address] Dr. Sahil Turk pH (U) 7.0 [pH] Normal 5-9 [facility] Comment on above: Performed By: #### M G, RENAL, URIC #### [facility] [address] [place] [address] Dr. Sahil Turk RBC NONE SEEN Abnormal 0-2 [facility] Comment on above: Performed By: #### M G, RENAL, URIC #### [facility] [address] [place] [address] Dr. Sahil Turk SPEC GRAVITY 1.010 Normal 1.005-<=1.0 25 [facility] Comment on above: Performed By: #### M G, RENAL, URIC #### [facility] [address] [place] [address] Dr. Sahil Turk UA PROTEIN Negative Normal NEGATIVE/ TRACE [facility] Comment on above: Performed By: #### M G, RENAL, URIC #### [facility] [address] [place] [address] Dr. Sahil Turk Urobilinogen Qn (U) 0.2 {Macie'U}/dL Normal 0.2 - 1. 0 [facility] Comment on above: Performed By: #### M G, RENAL, URIC #### [facility] [address] [place] [address] Dr. Sahil Turk WBC NONE SEEN Normal NONE SEEN [facility] Comment on above: Performed By: #### M G, RENAL, URIC #### [facility] [address] [place] [address] Dr. Sahil Turk URIC ACID SERUMon 12-10-2021 Urate [Mass/Vol] 6.6 mg/dL Critically high 2.6-6.0 [facility] Comment on above: Performed By: #### M G, RENAL, URIC #### [facility] [address] [place] [address] Dr. Sahil Turk URINE T PROTEIN CREAT RATIOo n 12-10-2021 UR TOTAL PROTEIN <6.0 Normal <=12.0 [facility] Comment on above: Performed By: #### U RTPCR #### [facility] [address] [place] [address] Dr. Sahil Turk URINE CREAT <13.00 Critically low 20.00-300.0 0 [facility] Comment on above: Performed By: #### U RTPCR #### [facility] [address] [place] [address] Dr. Sahil Turk VITAMIN D 25 OHon 12-10-2021 VIT D 25-OH 91.7 ng/mL Normal [facility] Comment on above: Performed By: #### C JAYY, HSTROPN #### [facility] [address] [place] [address] Dr. Sahil Turk VIT D RANGES SEE BELOW Normal [facility] Comment on above: Result Comment: <20 ng/mL Vit D deficient 20 - <30 ng/mL Vit D insufficient 30 - 100 ng/mL Vit D sufficient >100 ng/mL Potential Toxicity Performed By: #### C JAYY, HSTROPN #### [facility] [address] [place] [address] Dr. Sahil Turk US KEVIN DOP LEG [...] by: LINDA REED Date: 2021-11-16 16:33 Normal [facility] FERRITINon 06-13-2021 Ferritin [Mass/Vol] 44 ng/mL Normal 15-150 [facility] Comment on above: Performed By: #### U RTPCR #### [facility] [address] [address] [address] Sahil Turk PTH INTACTon 06-13-2021 PTH, Intact 53 pg/mL Normal 15-65 [facility] Comment on above: Performed By: #### P THINT #### [facility] [address] [address] [address] Sahil Turk VIT D 25-OH LABCORPon 2021 Vitamin D, 25-Hydroxy 50.5 ng/mL Normal 30.0-100.0 [facility] Comment on above: Result Comment: Barbie min D deficiency has been defined by the [employer] and an Endocrine Society practice guideline as a level of serum 25-OH vitamin D less than 20 ng/mL (1,2). The Endocrine Society went on to further define vitamin D insufficiency as a level between 21 and 29 ng/mL (2). 1. IOM ([employer]). 2010. Dietary reference intakes for calcium and D. [place]: The National Academies Press. 2. Benjamín MF, Vikram [place], Gumaro-Dagoberto HERNANDEZ, et al. Evaluation, treatment, and prevention of vitamin D deficiency: an Endocrine Society clinical practice guideline. JCEM. 2010; 96(7):1911-30. Performed By: #### M G, RENAL, URIC #### [facility] [address] [place] [address] Dr. Sahil Turk HEMOGRAM AND PLATELon 2021 Hematocrit (Bld) [Volume fraction] 37.7 % Normal 36.0-48.0 [facility] Comment on above: Performed By: #### M G, RENAL, URIC #### [facility] [address] [place], [place] [id number] Dr. Sahil Turk Hemoglobin (Bld) [Mass/Vol] 12.2 g/dL Normal 12.0-16.0 [facility] Comment on above: Performed By: #### M G, RENAL, URIC #### [facility] [address] [place] [address] Dr. Sahil Turk MCH (RBC) [Entitic mass] 29.9 pg Normal 26.7-34.0 [facility] Comment on above: Performed By: #### M G, RENAL, URIC #### [facility] [address] [address] [address] Sahil Turk MCHC (RBC) [Mass/Vol] 32.4 g/dL Normal 29.9-35.2 [facility] Comment on above: Performed By: #### M G, RENAL, URIC #### [facility] [address] [place] [address] Dr. Sahil Turk MCV (RBC) [Entitic vol] 92.4 fL Normal 81.0-99.0 [facility] Comment on above: Performed By: #### M G, RENAL, URIC #### [facility] [address] [place] [address] Dr. Sahil Turk PLT 246 103/ul Normal 150-450 [facility] Comment on above: Performed By: #### M G, RENAL, URIC #### [facility] [address] [place] [address] Dr. Sahil Turk RBC 4.08 106/ul Critically low 4.20-5.40 [facility] Comment on above: Performed By: #### M G, RENAL, URIC #### [facility] [address] [place] [address] Dr. Sahil Turk WBC 5.7 103/ul Normal 4.0-11.0 [facility] Comment on above: Performed By: #### M G, RENAL, URIC #### [facility] [address] [place] [address] Dr. Sahil Turk IRON AND TIBCon 06-12-2021 % SATURATION 18.3 % Normal [facility] Comment on above: Performed By: #### U RTPCR #### [facility] [address] [place] [address] Dr. Sahil Turk Iron [Mass/Vol] 54.0 ug/dL Normal 37.0-170.0 [facility] Comment on above: Performed By: #### U RTPCR #### [facility] [address] [address] [address] Sahil Turk TIBC DIRECT 295.0 ug/dL Normal 261.0-497.0 [facility] Comment on above: Performed By: #### U RTPCR #### [facility] [address] [place] [address] Dr. Sahil Turk MAGNESIUMon 06-12-2021 Magnesium [Mass/Vol] 1.9 mg/dL Normal 1.6-2.3 [facility] Comment on above: Performed By: #### R ENAL, URIC, MG #### [facility] [address] [place] [address] Dr. Sahil Turk RENAL FUNCTION PANELon 06-12 Albumin [Mass/Vol] 3.7 g/dL Normal 3.5-5.0 [facility] Comment on above: Performed By: #### R ENAL, URIC, MG #### [facility] [address] [place] [address] Dr. Sahil Turk Calcium [Mass/Vol] 9.7 mg/dL Normal 8.4-10.2 [facility] Comment on above: Performed By: #### R ENAL, URIC, MG #### [facility] [address] [place] [address] Dr. Sahil Turk Chloride [Moles/Vol] 103 mmol/L Normal 98-107 [facility] Comment on above: Performed By: #### R ENAL, URIC, MG #### [facility] [address] [address] [address] Sahil Turk CO2 [Moles/Vol] 32.0 mmol/L Critically high 22.0-30.0 [facility] Comment on above: Performed By: #### R ENAL, URIC, MG #### [facility] [address] [place] [address] Dr. Sahil Turk Creatinine [Mass/Vol] 1.42 mg/dL Critically high 0.52-1.04 [facility] Comment on above: Performed By: #### R ENAL, URIC, MG #### [facility] [address] [place] [address] Dr. Sahil Turk EGFR-AF RUSSIAN 43 mL/min/1.73m2 Critically low >=60 [facility] Comment on above: Performed By: #### R ENAL, URIC, MG #### [facility] [address] [place] [address] Dr. Sahil Turk EGFR-NON AF RUSSIAN 36 mL/min/1.73m2 Critically low >=60 [facility] Comment on above: Performed By: #### R ENAL, URIC, MG #### [facility] [address] [place] [address] Dr. Sahil Turk Glucose [Mass/Vol] 101 mg/dL Normal 74-106 [facility] Comment on above: Performed By: #### R ENAL, URIC, MG #### [facility] [address] [place] [address] Dr. Sahil Turk Phosphate [Mass/Vol] 3.3 mg/dL Normal 2.5-4.5 [facility] Comment on above: Performed By: #### R ENAL, URIC, MG #### [facility] [address] [place] [address] Dr. Sahil Turk Potassium [Moles/Vol] 4.1 mmol/L Normal 3.4-5.0 [facility] Comment on above: Performed By: #### R ENAL, URIC, MG #### [facility] [address] [place] [address] Dr. Sahil Turk Sodium [Moles/Vol] 142 mmol/L Normal 137-145 [facility] Comment on above: Performed By: #### R ENAL, URIC, MG #### [facility] [address] [place] [address] Dr. Sahil Turk Urea nitrogen [Mass/Vol] 19.0 mg/dL Critically high 7.0-17 .0 [facility] Comment on above: Performed By: #### R ENAL, URIC, MG #### [facility] [address] [place] [address] Dr. Sahil Turk UA RANDOM W/MICROSCOPICon BACTERIA LARGE Abnormal NONE SEEN [facility] Comment on above: Performed By: #### M G, RENAL, URIC #### [facility] [address] [address] [address] Sahil Turk Bilirubin Ql (U) Negative Normal NEGATIVE [facility] Comment on above: Performed By: #### M G, RENAL, URIC #### [facility] [address] [address] [address] aShil uTrk CAST NONE SEEN Normal NONE SEEN [facility] Comment on above: Performed By: #### M G, RENAL, URIC #### [facility] [address] [address] [address] Sahil Turk Clarity (U) SL CLOUDY Abnormal CLEAR [facility] Comment on above: Performed By: #### M G, RENAL, URIC #### [facility] [address] [address] [address] Sahil Turk Color (U) LT. YELLOW Normal YELLOW [facility] Comment on above: Performed By: #### M G, RENAL, URIC #### [facility] [address] [address] [address] Sahil Turk Crystals LM Nom (Urine sed) NONE SEEN Normal NONE SEEN [facility] Comment on above: Performed By: #### M G, RENAL, URIC #### [facility] [address] [address] [address] Sahil Turk Epithelial cells LM Ql (Urine sed) RARE Normal NONE SEEN /RARE [facility] Comment on above: Performed By: #### M G, RENAL, URIC #### [facility] [address] [address] [address] Sahil Turk Glucose Ql (U) Negative Normal NEGATIVE [facility] Comment on above: Performed By: #### M G, RENAL, URIC #### [facility] [address] [address] [address] Sahil Turk Hemoglobin Ql (U) Negative Normal NEGATIVE [facility] Comment on above: Performed By: #### M G, RENAL, URIC #### [facility] [address] [address] [address] Sahil Turk Ketones Ql (U) Negative Normal NEGATIVE [facility] Comment on above: Performed By: #### M G, RENAL, URIC #### [facility] [address] [address] [address] Sahil Turk LEUKOCYTES SMALL Abnormal NEGATIVE [facility] Comment on above: Performed By: #### M G, RENAL, URIC #### [facility] [address] [address] [address] Sahil Turk MUCOUS NONE SEEN Normal NONE SEEN [facility] Comment on above: Performed By: #### M G, RENAL, URIC #### [facility] [address] [address] [address] Sahil Turk Nitrite Ql (U) Positive Abnormal NEGATIVE [facility] Comment on above: Performed By: #### M G, RENAL, URIC #### [facility] [address] [place] [address] Dr. Sahil Turk pH (U) 8.0 [pH] Normal 5-9 [facility] Comment on above: Performed By: #### M G, RENAL, URIC #### [facility] [address] [place] [address] Dr. Sahil Turk RBC 0-2 Normal 0-2 [facility] Comment on above: Performed By: #### M G, RENAL, URIC #### [facility] [address] [place] [address] Dr. Sahil Turk SPEC GRAVITY 1.015 Normal 1.005-<=1.0 25 [facility] Comment on above: Performed By: #### M G, RENAL, URIC #### [facility] [address] [place] [address] Dr. Sahil Turk UA PROTEIN Negative Normal NEGATIVE/ TRACE [facility] Comment on above: Performed By: #### M G, RENAL, URIC #### [facility] [address] [place] [address] Dr. Sahil Turk Urobilinogen Qn (U) 0.2 {Macie'U}/dL Normal 0.2 - 1. 0 [facility] Comment on above: Performed By: #### M G, RENAL, URIC #### [facility] [address] [address] [address] Sahil Turk WBC 10-20 Abnormal NONE SEEN [facility] Comment on above: Performed By: #### M G, RENAL, URIC #### [facility] [address] [address] [address] Sahil Turk URIC ACID SERUMon 06-12-2021 Urate [Mass/Vol] 7.7 mg/dL Critically high 2.5-6.2 [facility] Comment on above: Performed By: #### R ENAL, URIC, MG #### [facility] [address] [address] [address] Sahil Turk URINE T PROTEIN CREAT RATIOo n 06-12-2021 Protein (U) [Mass/Vol] 24.9 mg/dL Critically high <=12.0 [facility] Comment on above: Performed By: #### C MP, HSTROPN #### [facility] [address] [address] [address] Sahil Turk UR PROT CREAT RAT 0.33 Normal [facility] [facility] Comment on above: Performed By: #### C MP, HSTROPN #### [facility] [address] [address] [address] Sahil Turk URINE CREAT 76.21 mg/dL Normal 20.00-300.0 0 [facility] Comment on above: Performed By: #### C MP, HSTROPN #### [facility] [address] [address] [address] Sahil Turk Vital Signs Date Time Vital Sign Value Performing Clinician Facility 12-20-2023 11: Body height 152.4 cm [facility] 12-20-2023 11: Body mass index (BMI) [Ratio] 36.9 kg/m2 [facility] 12-20-2023 11: Body weight 85.72 kg [facility] 12-20-2023 11: Diastolic blood pressure 74 mm[Hg] [facility] 12-20-2023 11: Heart rate 74 /min [facility] 12-20-2023 11:190400 SaO2% (BldA) [Mass fraction] 97 % [facility] 12-20-2023 11:19-0400 Systolic blood pressure 124 mm[Hg] [facility] 12-12-2023 13:180400 Body height 152.4 cm [facility] 12-12-2023 13:18-0400 Body mass index (BMI) [Ratio] 36.8 kg/m2 [facility] 12-12-2023 13:180400 Body weight 85.44 kg [facility] 12-12-2023 13:18-0400 Diastolic blood pressure 68 mm[Hg] [facility] 12-12-2023 13:18-0400 Heart rate 88 /min [facility] 12-12-2023 13:18-0400 Systolic blood pressure 121 mm[Hg] [facility] 08-02-2023 13:08-0500 Hourly Rounding [facility] 08-02-2023 13:08-0500 Promise to Return [facility] 08-02-2023 12:08-0500 Hourly Rounding [facility] 08-02-2023 12:08-0500 Promise to Return [facility] 08-02-2023 11:31-0500 Heart rate 85 /min [facility] 08-02-2023 11:31-0500 SaO2% (BldA) [Mass fraction] 94 % [facility] 08-02-2023 11:25-0500 Diastolic blood pressure 69 mm[Hg] [facility] 08-02-2023 11:25-0500 Mean blood pressure 83 mm[Hg] [facility] 08-02-2023 11:25-0500 Systolic blood pressure 110 mm[Hg] [facility] 08-02-2023 11:25-0500 Body temperature 97.34 [degF] [facility] 11:08-0500 Hourly Rounding [facility] 08-02-2023 11:08-0500 Promise to Return [facility] 08-02-2023 11:00-0500 Respiratory rate 18 /min [facility] 08-02-2023 08:27-0500 Heart rate 74 /min [facility] 08-02-2023 08:27-0500 SaO2% (BldA) [Mass fraction] 93 % [facility] 08-02-2023 08:24-0500 Body temperature 97.88 [degF] [facility] 08-02-2023 08:24-0500 Diastolic blood pressure 72 mm[Hg] [facility] 08-02-2023 08:24-0500 Mean blood pressure 90 mm[Hg] [facility] 08-02-2023 08:24-0500 Systolic blood pressure 124 mm[Hg] [facility] 08-02-2023 00:20-0500 Body temperature 97.88 [degF] [facility] 08-02-2023 00:20-0500 Diastolic blood pressure 82 mm[Hg] [facility] 08-02-2023 00:20-0500 Heart rate 71 /min [facility] 08-02-2023 00:20-0500 Mean blood pressure 90 mm[Hg] [facility] 08-02-2023 00:20-0500 SaO2% (BldA) [Mass fraction] 94 % [facility] 08-02-2023 00:20-0500 Systolic blood pressure 112 mm[Hg] [facility] 08-01-2023 12:00-0500 Respiratory rate 16 /min Christie [facility] 07-31-2023 16:26-0500 Blood Pressure [facility] 07-31-2023 16:26-0500 Heart rate 65 /min [facility] 07-31-2023 16:26-0500 Respiratory rate 18 /min [facility] 07-31-2023 11:28-0500 Blood Pressure Location [facility] 07-31-2023 11:28-0500 Heart rate 70 /min [facility] 07-31-2023 10:43-0500 Mean blood pressure 82 mm[Hg] [facility] 07-31-2023 10:43-0500 Respiratory rate 18 /min [facility] 07-31-2023 10:00-0500 Mean blood pressure 69 mm[Hg] [facility] 07-31-2023 10:00-0500 Respiratory rate 20 /min [facility] 07-31-2023 09:45-0500 Mean blood pressure 70 mm[Hg] [facility] 07-30-2023 20:31-0500 Heart rate 75 /min [facility] 06-15-2023 11:20-0500 Body height 152.4 cm Yaneth Germania Other [email or web address] Other 06-15-2023 11:20-0500 Body mass index (BMI) [Ratio] 35.35 kg/m2 Yaneth Germania Other [email or web address] Other 06-15-2023 11:20-0500 Body temperature 98.7 [degF] Yaneth Germania Other [email or web address] Other 06-15-2023 11:20-0500 Body weight 82.1 kg Yaneth Germania Other [email or web address] Other 06-15-2023 11:20-0500 Diastolic blood pressure 75 mm[Hg] Yaneth Germania Other [email or web address] Other 06-15-2023 11:20-0500 Respiratory rate 18 /min Yaneth Germania Other [email or web address] Other 06-15-2023 11:20-0500 SaO2% (BldA) [Mass fraction] 96 % Yaneth Germania Other [email or web address] Other 06-15-2023 11:20-0500 Systolic blood pressure 111 mm[Hg] Yaneth Germania Other [email or web address] Other 06-02-2023 14:15-0500 Body height 152.4 cm Harpal Hayes Other [email or web address] Other 06-02-2023 14:15-0500 Body mass index (BMI) [Ratio] 35.27 kg/m2 Harpal Hayes Other [email or web address] Other 06-02-2023 14:15-0500 Body weight 81.92 kg Harpal Hayes Other [email or web address] Other 06-02-2023 14:15-0500 Diastolic blood pressure 76 mm[Hg] Harpal Hayes Other [email or web address] Other 06-02-2023 14:15-0500 SaO2% (BldA) [Mass fraction] 96 % Harpal Hayes Other [email or web address] Other 06-02-2023 14:15-0500 Systolic blood pressure 134 mm[Hg] Harpal Hayes Other [email or web address] Other 03-07-2023 10:15-0400 Body height 152.4 cm Harpal Hayes Other [email or web address] Other 03-07-2023 10:15-0400 Body mass index (BMI) [Ratio] 36.83 kg/m2 Harpal Hayes Other [email or web address] Other 03-07-2023 10:15-0400 Body weight 85.55 kg Harpal Hayes Other [email or web address] Other 03-07-2023 10:15-0400 Diastolic blood pressure 82 mm[Hg] Harpal Hayes Other [email or web address] Other 03-07-2023 10:15-0400 SaO2% (BldA) [Mass fraction] 93 % Harpal Hayes Other [email or web address] Other 03-07-2023 10:15-0400 Systolic blood pressure 140 mm[Hg] Harpal Hayes Other [email or web address] Other 12-20-2022 11:20-0400 Body height 152.4 cm Yaneth Germania Other [email or web address] Other 12-20-2022 11:20-0400 Body temperature 96.7 [degF] Yaneth Germania Other [email or web address] Other 12-20-2022 11:20-0400 Diastolic blood pressure 67 mm[Hg] Yaneth Germania Other [email or web address] Other 12-20-2022 11:20-0400 Respiratory rate 18 /min Yaneth Germania Other [email or web address] Other 12-20-2022 11:20-0400 SaO2% (BldA) [Mass fraction] 97 % Yaneth Germania Other [email or web address] Other 12-20-2022 11:20-0400 Systolic blood pressure 104 mm[Hg] Yaneth Germania Other [email or web address] Other 06-14-2022 12:40-0500 Body height 152.4 cm Yaneth Germania Other [email or web address] Other 06-14-2022 12:40-0500 Body mass index (BMI) [Ratio] 35.15 kg/m2 Yaneth Germania Other [email or web address] Other 06-14-2022 12:40-0500 Body temperature 97.3 [degF] Yaneth Germania Other [email or web address] Other 06-14-2022 12:40-0500 Body weight 81.65 kg Yaneth Germania Other [email or web address] Other 06-14-2022 12:40-0500 Diastolic blood pressure 73 mm[Hg] Yaneth Germania Other [email or web address] Other 06-14-2022 12:40-0500 Respiratory rate 18 /min Yaneth Germania Other [email or web address] Other 06-14-2022 12:40-0500 SaO2% (BldA) [Mass fraction] 95 % Yaneth Germnaia Other [email or web address] Other 06-14-2022 12:40-0500 Systolic blood pressure 115 mm[Hg] Yaneth Germania Other [email or web address] Other 01-08-2022 03:50-0400 Diastolic blood pressure 80 mm[Hg] [facility] 01-08-2022 03:50-0400 Heart rate 82 /min [facility] 01-08-2022 03:50-0400 Respiratory rate 16 /min [facility] 01-08-2022 03:50-0400 SaO2% (BldA) [Mass fraction] 100 % [facility] 01-08-2022 03:50-0400 Systolic blood pressure 140 mm[Hg] [facility] [facility] 06-18-2021 12:00-0500 Body height 152.4 cm Yaneth Germania Other [email or web address] Other 06-18-2021 12:00-0500 Body temperature 96.3 [degF] Yaneth Germania Other [email or web address] Other 06-18-2021 12:00-0500 Diastolic blood pressure 74 mm[Hg] Yaneth Germania Other [email or web address] Other 06-18-2021 12:00-0500 Respiratory rate 18 /min Yaneth Germania Other [email or web address] Other 06-18-2021 12:00-0500 SaO2% (BldA) [Mass fraction] 96 % Yaneth Germania Other [email or web address] Other 06-18-2021 12:00-0500 Systolic blood pressure 120 mm[Hg] Yaneth Germania Other [email or web address] Other Encounters Encounter Date Encounter Type Care Provider Facility Start: 12-20-2023 End: 12-20-2023 ambulatory [facility] Work Phone: Start: 12-20-2023 End: 12-20-2023 Patient encounter procedure [facility]ly [facility] Work Phone: Start: 12-13-2023 Non-patient / Non-visit [facility] Work Phone: Start: 12-12-2023 End: 12-12-2023 ambulatory [facility] Work Phone: Start: 12-12-2023 End: 12-12-2023 Patient encounter procedure Formerly [facility] Physician [facility] Work Phone: Start: 11-22-2023 End: 11-22-2023 ambulatory [facility] Ambulatory [facility] Start: 11-07-2023 End: 11-07-2023 ambulatory [facility] Start: 08-10-2023 End: 08-10-2023 ambulatory [facility] Start: 07-31-2023 End: 08-02-2023 Evaluation and management of inpatient Hector Katarina Meier Facility:[facility] Start: 07-30-2023 End: 08-02-2023 Evaluation and management of inpatient Christie Zayas [facility] Start: 07-11-2023 End: 07-11-2023 ambulatory LINDA ROUSE Not Available Start: 06-23-2023 End: 06-23-2023 ambulatory Harpal Hayes Other [email or web address] Other Start: 06-23-2023 Telephone encounter Harpal Hayes [facility] Start: 06-22-2023 End: 06-22-2023 ambulatory Harpal Hayes Other [email or web address] Other Start: 06-22-2023 Telephone encounter Harpal Hayes [facility] Start: 06-15-2023 End: 06-15-2023 ambulatory Yaneth Germania Other [email or web address] Other Start: 06-15-2023 Office outpatient vi sit 25 minutes Yaneth Germania [facility] Start: 06-02-2023 End: 06-02-2023 ambulatory Harpal Hayes Other [email or web address] Other Start: 06-02-2023 Office outpatient vi sit 15 minutes Harpal Hayes [facility] Start: 05-24-2023 End: 05-24-2023 ambulatory Harpal Freddy Other [email or web address] Other Start: 05-24-2023 Telephone encounter Harpal Freddy [facility] Start: 05-18-2023 End: 05-18-2023 ambulatory Harpal Freddy Other [email or web address] Other Start: 05-18-2023 Telephone encounter Harpal Freddy [facility] Start: 05-09-2023 End: 05-09-2023 ambulatory Harpal Freddy Other [email or web address] Other Start: 05-09-2023 Telephone encounter Harpal Freddy [facility] Start: 03-15-2023 End: 03-15-2023 ambulatory Harpal Freddy Other [email or web address] Other Start: 03-15-2023 Telephone encounter Harpal Freddy [facility] Start: 03-07-2023 End: 03-07-2023 ambulatory Harpal Freddy Other [email or web address] Other Start: 03-07-2023 Office outpatient vi sit 25 minutes Harpal Freddy [facility] Start: 03-07-2023 Telephone encounter Harpal Freddy [facility] Start: 02-23-2023 End: 02-23-2023 ambulatory Harpal Freddy Other [email or web address] Other Start: 02-23-2023 Telephone encounter Harpal Freddy [facility] Start: 02-18-2023 End: 02-18-2023 ambulatory Harpal Hayes Other [email or web address] Other Start: 02-18-2023 Telephone encounter Harpal Hayes [facility] Start: 01-27-2023 End: 01-27-2023 ambulatory Harpal Hayes Other [email or web address] Other Start: 01-27-2023 Telephone encounter Harpal Hayes [facility] Start: 01-11-2023 End: 01-11-2023 ambulatory Harpal Hayes Other [email or web address] Other Start: 01-11-2023 Telephone encounter Harpal Hayes [facility] Start: 12-20-2022 End: 12-20-2022 ambulatory Yaneth Germania Other [email or web address] Other Start: 12-20-2022 Office outpatient vi sit 25 minutes Yaneth Germania [facility] Start: 12-16-2022 End: 12-17-2022 ambulatory Nadege Abraham Facility:[id number] Start: 12-06-2022 End: 12-07-2022 ambulatory Kimberly Brand DIONNA [email or web address] Other Start: 12-06-2022 Telephone encounter Yaneth Germania [facility] Start: 12-06-2022 End: 12-06-2022 [facility]-Site [facility] Start: 12-03-2022 End: 12-17-2022 ambulatory Og LA POINTE Facility:[facility] Start: 12-03-2022 End: 12-17-2022 Evaluation and management of inpatient Og TOLBERT [facility] Start: 12-02-2022 End: 12-03-2022 Evaluation and management of inpatient Mbanerahul OELLISWU Facility:[facility] Start: 12-01-2022 End: 12-02-2022 ambulatory Nadege Abraham Facility:[id number] Start: 12-01-2022 End: 12-01-2022 Off-Site [facility] Start: 11-15-2022 End: 11-16-2022 ambulatory Og TOLBERT Facility:[id number] Start: 11-15-2022 End: 11-15-2022 Off-Site [facility] Start: 11-14-2022 End: 12-01-2022 ambulatory Og TOLBERT Facility:[facility] Start: 11-14-2022 End: 12-01-2022 Evaluation and management of inpatient Og TOLBERT [facility] Start: 11-11-2022 End: 11-14-2022 Evaluation and management of inpatient MD Aba Falcon Facility:[facility] Start: 06-14-2022 End: 06-14-2022 ambulatory Yaneth Germania Other [email or web address] Other Start: 06-14-2022 Office outpatient vi sit 25 minutes Yaneth Germania [facility] Start: 06-09-[address] HARPAL HAYES Facil ity:[facility] Start: 05-27-2022 End: 05-27-[address] SULEMAN OLSEN Facility:[facility] Start: 04-26-2022 Gynecological examination normal Harpal Hayes Other [email or web address] Other Start: 03-11-2022 End: 03-11-2022 ambulatory CHRISTOPHER ABARCA Facility:[facility] Start: 02-21-2022 End: 02-21-2022 ambulatory ANDRADE LEWIS Facility:[facility] Start: 02-18-2022 End: 02-24-2022 ambulatory UNKNOWN PROVIDER Facility:[facility] Start: 01-08-2022 End: 01-08-2022 ambulatory [facility] T[facility], Treat and Transport Start: 01-08-2022 End: 01-08-2022 Emergency department patient visit [facility] Emergency Triage, Treat and Transport Comment on above: Arrived Start: 01-06-2022 End: 01-07-2022 ambulatory MEI DAS Facility:[facility] Start: 12-10-2021 End: 12-11-2021 ambulatory YANETH GERMANIA Facility:[facility] Start: 11-16-2021 End: 11-17-[address] LINDA REED Facility:[facility] Start: 09-28-2021 End: 10-28-[address] HARPAL HAYES Facility:[facility] Start: 08-31-[address] HARPAL HYAES Facil ity:[facility] Start: 06-18-2021 End: 06-18-2021 ambulatory Yaneth Germania Other [email or web address] Other Start: 06-18-2021 Office outpatient vi sit 25 minutes Yaneth Germania [facility]jun Start: 06-12-2021 End: 06-13-2021 ambulatory YANETH GERMANIA Facility: Start: 06-09-2017 End: 06-10-2017 Ambulatory DEFAULT PHYSICIAN Facility:[facility] Start: 06-07-2017 End: 06-08-2017 Ambulatory DEFAULT PHYSICIAN Facility:[facility] Start: 06-02-2017 End: 06-03-2017 Ambulatory DEFAULT PHYSICIAN Facility:[facility] Start: 05-10-2017 End: 05-11-2017 Ambulatory DEFAULT PHYSICIAN Facility:[facility] Procedures Date Procedure Procedure Detail Performing Clinician Arthroplasty of knee Christie Zayas Bone structure of fe mur (body structure) Christie Zayas Comment on above: stainless steel yadiel placed Depression screening Harpal Hayes Other History of operative procedure on knee Yaneth Germania Other None (qualifier value) Tena TOLBERT Removal of suture Harpal gee Other Screening for malign ant neoplasm of breast Harpal Hayes Other Plan of Treatment Date Care Activity Detail Author Start: 03-06-2022 Influenza vaccination Influenza Vaccine (#1) [facility] Start: 01-08-2022 Welcome to Medicare Visit (G0402) Welcome to Medicare Visit (G0402) [facility] Start: 2009 Pneumococcal vaccination Pneumococcal Vaccine(s) (65+ yrs) (1 - PCV) [facility] Start: 2009 Screening for osteoporosis Bone Densitometry [facility] Start: 1994 Shingles (RZV) Vaccine (1 of 2) Shingles (RZV) Vaccine (1 of 2) [facility] Start: 1962 Hepatitis C screening Hepatitis C Antibody [facility] Start: 1962 Tetanus + diphtheria + acellular pertussis vaccine (product) Tdap Booster [facility] Start: 1944 COVID-19 Vaccine (#1) COVID-19 Vaccine (#1) [facility] Renal function 2000 panel - Serum or Plasma [facility] Immunizations Immunization Date Immunization Notes Care Provider Fa cility NEGATED: Highlighted row has not occurred! 6 pneumococcal polysaccharide vaccine, 23 valent Patient Objection Yaneth Marshall Other [email or web address] Other Payers Date Payer Category Payer Medicare MEDICARE MEDICAR E PART A & B [id number] 2022-Present [address] [place] [address] Medicare [id number] 2017 Unknown [id number] 1959 Medicare [id number] 1944 Unknown [id number] 2.16.840.1.870631.3.579.2.732 1944 Unknown [id number] 2.16.840.1.530278.3.579.2.593 1944 Unknown [id number] 2.16.840.1.853585.3.579.2.593 1944 Unknown [id number] 2.16.840.1.731962.3.579.2.593 1944 Unknown [id number] 2.16.840.1.959685.3.579.2.593 1944 Unknown [id number] 2.16.840.1.307518.3.579.2.593 1944 Unknown [id number] 2.16.840.1.147390.3.579.2.593 1944 Unknown [id number] 2.16.840.1.115019.3.579.2.593 1944 Unknown [id number] 2.16.840.1.505472.3.579.2.593 1944 Unknown [id number] 2.16.840.1.083349.3.579.2.593 1944 Unknown [id number] 2.16.840.1.743096.3.579.2.593 1944 Unknown [id number] 2.16.840.1.874369.3.579.2.1259 1944 Unknown [id number] 2.16.840.1.115545.3.579.2.727 1944 Unknown [id number] 2.16.840.1.695653.3.579.2.727 1944 Unknown [id number] 2.16.840.1.039917.3.579.2.727 1944 Unknown [id number] 2.16.840.1.291119.3.579.2.727 1944 Unknown [id number] 2.16.840.1.646379.3.579.2.727 1944 Unknown [id number] 2.16.840.1.058773.3.579.2.727 1944 Unknown [id number] 2.16.840.1.725501.3.579.2.727 1944 Unknown [id number] 2.16.840.1.465337.3.579.2.727 1944 Unknown [id number] 2.16.840.1.682720.3.579.2.727 1944 Unknown [id number] 2.16.840.1.427717.3.579.2.1286 Self-pay Self Pay [id number] Unknown Social History Date Type Detail Facility Unknown if ever smoked [email or web address] Other Sex Assigned At [facility] Tobacco smoking status [facility] Tobacco smoking consumption unknown [facility] Start: 1945 Sex Assigned At Not on file M [facility] Tobacco smoking status No Smoking Status Entered [facility] Start: 07-27-2018 Tobacco smoking status UTIS Never smoked tobacco (finding) [facility] Start: 1945 Sex Assigned At Female F [facility] Functional Status Date Assessment Result Facility 07-31-2023 Functional Status No [facility] 07-30-2023 Functional Status [facility] Clinical Notes 06-18-2021 to 11-07-2023 Note Date & Type Note Facility 11-07-2023 Note [facility] Cardiology Clinic Note Chief Complaint: Patient here for 3 mo follow up CAD, tricuspid valve disorder, HFpEF, and hypertension. Carvedilol was restarted at last apt in August 2023. She denies chest pain, SOB, and lightheadedness/syncope. They did not see PCP for headaches. HPI: Doing well; denies new symptoms Blood pressure better controlled Cardiology ROS: Review of Systems Cardiovascular: Positive for leg swelling. Skin: Positive for color change. Musculoskeletal: Positive for muscle weakness. Neurological: Positive for headaches. All other systems reviewed and are negative. Past Medical History She has no past medical history on file. Surgical History She has no past surgical history on file. Social History She reports that she quit smoking about 42 years ago. Her smoking use included cigarettes. She has never used smokeless tobacco. She reports that she does not currently use alcohol. She reports that she does not use drugs. Family History No family history on file. Allergies Butorphanol Medications Current Outpatient Medications: aspirin 81 mg EC tablet, Take 1 tablet every day by oral route., Disp: , Rfl: atorvastatin (Lipitor) 10 mg tablet, TAKE 1 TABLET BY ORAL ROUTE EVERY DAY, Disp: , Rfl: carvedilol (Coreg) 3.125 mg tablet, Take 1 tablet (3.125 mg) by mouth with breakfast and with evening meal., Disp: 180 tablet, Rfl: 3 carvedilol (Coreg) 6.25 mg tablet, TAKE 1 TABLET BY ORAL ROUTE 2 TIMES EVERY DAY WITH FOOD, Disp: , Rfl: cetirizine (ZyrTEC) 10 mg capsule, Take 1 capsule every day by oral route., Disp: , Rfl: ergocalciferol, vitamin D2, (VITAMIN D2 ORAL), Take 1,500 Int'l Units by mouth., Disp: , Rfl: ferrous sulfate 325 (65 Fe) MG tablet, TAKE 1 TABLET BY ORAL ROUTE EVERY 2 DAYS, Disp: , Rfl: furosemide (Lasix) 20 mg tablet, 40 mg in the morning., Disp: , Rfl: levothyroxine (Synthroid, Levoxyl) 50 mcg tablet, TAKE 1 TABLET BY ORAL ROUTE EVERY DAY, Disp: , Rfl: magnesium oxide 400 mg magnesium capsule, once daily as directed., Disp: , Rfl: metFORMIN (Glucophage) 500 mg tablet, TAKE 1 TABLET BY ORAL ROUTE 2 TIMES EVERY DAY WITH MORNING AND EVENING MEALS, Disp: , Rfl: Myrbetriq 50 mg tablet extended release 24 hr, Take 1 tablet by mouth in the morning., Disp: , Rfl: nitroglycerin (Nitrostat) 0.4 mg SL tablet, PLACE 1 TABLET UNDER TONGUE FOR CHEST PAIN,MAY REPEAT EVERY 5 MINUTES FOR UP TO A MAX OF 3 TABLETS, Disp: 25 tablet, Rfl: 3 pantoprazole (ProtoNix) 40 mg EC tablet, Take 1 tablet (40 mg) by mouth before breakfast. Do not crush, chew, or split., Disp: 90 tablet, Rfl: 3 potassium chloride CR (Klor-Con) 10 mEq ER tablet, Take 1 tablet by mouth with breakfast and with evening meal., Disp: , Rfl: pregabalin (Lyrica) 150 mg capsule, in the morning., Disp: , Rfl: rOPINIRole (Requip) 4 mg tablet, Take 3 mg by mouth at bedtime., Disp: , Rfl: traMADol (Ultram) 50 mg tablet, Take 1 tablet by mouth if needed in the morning, at noon, and at bedtime., Disp: , Rfl: traZODone (Desyrel) 150 mg tablet, TAKE 1 TABLET BY ORAL ROUTE EVERY DAY, Disp: , Rfl: Last Recorded Vitals BP 120/70 (BP Location: Right arm, Patient Position: Sitting) Pulse 80 Ht 1.499 m (4' 11 ) Wt 83.9 kg (185 lb) SpO2 92% BMI 37.37 kg/m??? Physical Examination: GENERAL: alert and oriented x3, [...] extremities. PSYCH: appropriate mood, affect, and judgement. INVESTIGATIONS Cardiac catheterization 01/28/2011: Final impression: Mild coronary artery disease 2. Mild elevated pressures 3. Normal cardiac output/cardiac index 4. Severe reduced global left ventricular systolic function by noninvasive imaging Lexiscan stress test 03/2018 Myocardial perfusion study [...] due to bundle branch block. Grade 1 diast (more content not included)... [facility] 08-10-2023 Note [facility] Cardiology Clinic Note Chief Complaint: Patient here for 1.5 year follow up CAD, HFpEF, and hypertension. She was admitted to [facility] a few weeks ago for pneumonia. Daughter said carvedilol was stopped upon discharge. Said BP at PCP's office a few days later was 104/65 HR 85. Next day was 131/65 HR 74. 115/61 HR 82 following day. Denies chest pain, SOB, palpitations, and lightheadedness/syncope. C/o headaches since stopping carvedilol. HPI: Nadia Patterson is a 78 y.o. female here for routine f/u for h/o CAD, HTN, [...] worsens the chest pain that she describes. UPDATE 08/10/2023 The patient was admitted to the hospital with weakness . She was subsequently diagnosed with a pneumonia. Today, she states that her energy levels have improved. She denies chest pain. She has no worsening shortness of breath. Pertinently, she complains of pain in the right ear that radiates to the back of the scalp. She also has pain in the temporal area. She has been complaining of headaches since she was discharged from the hospital. She denies significant visual problems but does state that she needs to get my glasses checked Cardiology ROS: Review of Systems Musculoskeletal: Positive for muscle weakness. Neurological: Positive for headaches. All other systems reviewed and are negative. Past Medical History She has no past medical history on file. Surgical History She has no past surgical history on file. Social History She reports that she quit smoking about 42 years ago. Her smoking use included cigarettes. She has never used smokeless tobacco. She reports that she does not currently use alcohol. She reports that she does not use drugs. Family History No family history on file. Allergies Butorphanol Medications Current Outpatient Medications: aspirin 81 mg EC tablet, Take 1 tablet every day by oral route., Disp: , Rfl: atorvastatin (Lipitor) 10 mg tablet, TAKE 1 TABLET BY ORAL ROUTE EVERY DAY, Disp: , Rfl: carvedilol (Coreg) 6.25 mg tablet, TAKE 1 TABLET BY ORAL ROUTE 2 TIMES EVERY DAY WITH FOOD, Disp: , Rfl: cetirizine (ZyrTEC) 10 mg capsule, Take 1 capsule every day by oral route., Disp: , Rfl: ergocalciferol, vitamin D2, (VITAMIN D2 ORAL), Take 1,500 Int'l Units by mouth., Disp: , Rfl: ferrous sulfate 325 (65 Fe) MG tablet, TAKE 1 TABLET BY ORAL ROUTE EVERY 2 DAYS, Disp: , Rfl: furosemide (Lasix) 20 mg tablet, 40 mg in the morning., Disp: , Rfl: levothyroxine (Synthroid, Levoxyl) 50 mcg tablet, TAKE 1 TABLET BY ORAL ROUTE EVERY DAY, Disp: , Rfl: magnesium oxide 400 mg magnesium capsule, 4 times a week, Disp: , Rfl: metFORMIN (Glucophage) 500 mg tablet, TAKE 1 TABLET BY ORAL ROUTE 2 TIMES EVERY DAY WITH MORNING AND EVENING MEALS, Disp: , Rfl: nitroglycerin (Nitrostat) 0.4 mg SL tablet, PLACE 1 TABLET UNDER TONGUE FOR CHEST PAIN,MAY REPEAT EVERY 5 MINUTES FOR UP TO A MAX OF 3 TABLETS, Disp: 25 tablet, Rfl: 3 pantoprazole (ProtoNix) 40 mg EC tablet, Take 1 tablet (40 mg) by mouth before breakfast. Do not crush, chew, or split., Disp: 90 tablet, Rfl: 3 potassium chloride CR (Klor-Con) 10 mEq ER tablet, Take 1 tablet by mouth with breakfast and with evening meal., Disp: , Rfl: pregabalin (Lyrica) 150 mg capsule, TAKE 1 (ONE) CAPSULE BY MOUTH TWO TIMES DAILY, Disp: , Rfl: rOPINIRole (Requip) 4 mg tablet, TAKE 1 TABLET BY ORAL ROUTE EVERY DAY 1-3 HOURS BEFORE BEDTIME, Disp: , Rfl: traMADol (Ultram) 50 mg tablet, Take 1 tablet by mouth if needed in the morning, at noon, and at bedtime., Disp: , Rfl: traZODone (Desyrel) 150 mg tablet, TAKE 1 TABLET BY ORAL ROUTE EVERY DAY, Disp: , Rfl: Last Recorded Vitals BP 118/68 (BP Location: Right arm, Patient Position: Sitting) Pulse 85 Ht 1.499 m (4' 11 ) Wt 83 kg (183 lb) SpO2 95% BMI 36.96 kg/m??? Physical Examination: GENERAL: alert and oriented x3, [...] extremities. PSYCH: appropriate mood, affect, and judgement. INVESTIGATIONS Lexiscan stress test 03/2018 Myocardial (more content not included)... [facility] 08-02-2023 Evaluation + Plan note Extrac olamide from: Title:Discharge Note Author:Hector Meier DO Date:08/02/23 Discharge To, Anticipated II - Home with home health Discharged to - Home with family care Prescriptions azithromycin 250 mg Tab, 250 mg= 1 tab(s), Oral, Daily cefuroxime 500 mg oral tablet, 500 mg= 1 tab(s), Oral, BID Home aspirin 81 mg Oral EC Tab, 81 mg= 1 tab(s), Oral, Daily atorvastatin 10 mg Tab, 10 mg= 1 tab(s), Oral, Bedtime carvedilol 6.25 mg Tab, 6.25 mg= 1 tab(s), Oral, BID cetirizine 10 mg Tab, 10 mg= 1 tab(s), Oral, Daily, PRN cholecalciferol 10,000 intl units oral capsule, 250 mcg= 1 cap(s), Oral, MonWedFri Colace 100 mg Cap, 100 mg= 1 cap(s), Oral, BID, PRN ferrous sulfate 325 mg Tab, 325 mg= 1 tab(s), Oral, MonWedFri furosemide 40 mg Tab, 40 mg= 1 tab(s), Oral, Daily levothyroxine 50 mcg (0.05 mg) Tab, 50 mcg= 1 tab(s), Oral, Daily magnesium oxide 250 mg oral tablet, 250 mg= 1 tab(s), Oral, Daily, Not taking magnesium oxide 400 mg oral capsule, 400 mg= 1 cap(s), Oral, Daily metformin 500 mg oral tablet, 500 mg= 1 tab(s), Oral, BID Myrbetriq 50 mg oral tablet, extended release nitroglycerin 0.4 mg sublingual Tab, 0.4 mg= 1 tab(s), SubLingual, q5min, PRN Bancroft 325 mg-5 mg oral tablet, 1 tab(s), Oral, BID, PRN nystatin Top 100,000 units/g Pwdr, 1 chantal, Topical, BID polyethylene glycol 3350 17 gram packet, 17 gm, Oral, Daily, PRN Potassium Chloride (Eqv-K-Tab) 10 mEq oral tablet, extended release, 10 mEq= 1 tab(s), Oral, BID pregabalin, 150 mg, Oral, BID ropinirole 4 mg oral tablet, 4 mg= 1 tab(s), Oral, Supper traZODONE 150 mg Tab, 150 mg= 1 tab(s), Oral, Once a day (at bedtime) Tylenol Extra Strength 500 mg oral tablet, 1000 mg= 2 tab(s), Oral, q6hr With When Contact Information FREDYD BRIGGS, GRETEL ROWAN Within 3 to [address] [place] [id number] Additional Instructions: Call for followup appointment Community-Acquired Pneumonia, Adult, [id number] Extracted from: Title:APSO Note Author:Jesika WHITE student, Roberta Mina Date:08/01/23 1. Generalized weakness (R53 .1: Weakness) - Likely due to underlying pneumonia, in conjunction with fibromyalgia and other comorbidities - PT Eval 2. Pneumonia (J18.9: Pneumonia, unspecified organism) - Possible CAP, due to probable gram negative organism - COVID, Influenza swabs negative - Blood cx pending, preliminary reports negative - Continue Rocephin, Zmax since 07/31 - Repeat CBC 3. Lactic acidosis (E87.20: Acidosis, unspecified) - Likely due to hypoperfusion in setting of above. - Has resolved s/p fluid - No clinical signs of sepsis 4. Fibromyalgia (M79.7: Fibromyalgia) - Lyrica 5. 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 Hypothyroid (E03.9: Hypothyroidism, unspecified) - TSH normal 11/2022 7. CKD (chronic kidney disease) stage 3, GFR 30-59 ml/min (N18.3: Chronic kidney disease, stage 3 (moderate)) - Stable at baseline creatinine 1.4-1.5 - Repeat CMP 8. Dementia (F03.90: Unspecified dementia, unspecified severity, without behavioral disturbance, psychotic disturbance, mood disturbance, and anxiety) - Reported in Problem List. - Does not appear to be on any dementia medication. Extracted from: Title:Admission H & P Author:Christie Zayas MD Date:07/31/23 1. Generalized weakness (R53 .1: Weakness) Likely due to underlying pneumonia, in conjunction with fibromyalgia and other comorbidities PT Eval ordered 2. Pneumonia (J18.9: Pneumonia, unspecified organism) Possible CAP, due to probable gram negative organism Check COVID, Influenza swabs Blood cx pending Rocephin, Zmax 3. Lactic acidosis (E87.20: Acidosis, unspecified) Likely due to hypoperfusion in setting of above. Given 500cc of fluid in the ED Has normalized No clinical signs of sepsis 4. Fibromyalgia (M79.7: Fibromyalgia) Lyrica 5. 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 Hypothyroid (E03.9: Hypothyroidism, unspecified) TSH normal 11/2022 7. CKD (chronic kidney disease) stage 3, GFR 30-59 ml/min (N18.3: Chronic kidney disease, stage 3 (moderate)) Stable at baseline creatinine 1.4-1.5 8. Dementia (F03.90: Unspecified dementia, unspecified severity, without behavioral disturbance, psychotic disturbance, mood disturbance, and anxiety) Reported in Problem List. Does not appear to be on any dementia medication. Extracted from: Title:ED Note Author:Queta DE JESUS, Mariela Gandara ate:07/30/23 1. Pneumonia (J18.9: Pneumon ia, unspecified organism) 2. Generalized weakness (R53.1: Weakness) Orders: ceftriaxone + Sodium Chloride 0.9% intravenous solution 50 mL, 1,000 mg = 1 EA, IV Piggyback, Once, Stop date 07/30/23 23:14:00 EST, STAT, Start date 07/30/23 23:14:00 EST, 100 mL/hr, Infuse over 30 minute(s), 07/30/23 23:14:00 EST Add on Test [facility]02-27-2024 Hospital Discharge instructions Patient Education 08/02/2023 11:02:24 Antibiotic Medicine, Adult, Jmqz-gn-Qvll Antibiotic Medicine, Adult Antibiotic medicines treat infections caused by a type of germ called bacteria. These medicines work by killing the bacteria that make you sick. You should take antibiotic medicines safely and only when needed. When do I need to take antibiotics? You may need antibiotics for: A urinary tract infection (UTI). Strep throat. A sinus infection caused by bacteria. Meningitis. This affects the spinal cord and brain. A bad lung infection. You may start your medicines while your doctor waits for your results on some tests. When your results come back, your doctor may change or stop your medicine based on your test results. When are antibiotics not needed? You do not need these medicines for most common illnesses, such as: A cold. The flu. A sore throat. Mucus being an odd color. Bronchitis. Sometimes, antibiotics are not needed for an infection caused by bacteria. Do not ask for these medicines, or take them, when they are not needed. How long should I take my antibiotic? You need to take all your medicine. Take your antibiotic medicine as told by your doctor. Do not stop taking the antibiotic even if you start to feel better. If you stop taking it too soon: You may feel sick again. Your infection may get harder to treat. Antibiotics need different amounts of time to work. Some treatments last just a few days. Some lastabout a week to 10 days. Sometimes, you may need to take antibiotics for a few weeks to fully treatyour infection. What if I miss a dose? Try not to miss a dose. If you miss a dose, call your doctor or pharmacist. Sometimes, it is okay to take the missed dose as soon as you can. Do not take an extra dose. What are the risks of taking antibiotics? Antibiotics can cause: Allergic attacks. A feeling like you may vomit (nausea). Yeast infections. Liver problems. These medicines can cause an infection called C. diff. This causes watery poop (diarrhea). This happens when antibiotics kill good germs in your gut. This lets C. diff grow. Tell your doctor right away if: You get watery poop while taking your antibiotic. You get watery poop after you stop your antibiotic. C. diff can happen weeks after you stop your medicine. You also have a risk of getting an infection in the future that antibiotics cannot treat (antibiotic-resistant infection). These infections can get very bad. Sometimes, they can be life-threatening. Do antibiotics affect control? control pills may not work. If you take control pills: Keep taking them as normal. Use a second form of control, such as a condom. Do this for as long as told by your doctor. What else should I know about taking antibiotics? You need to take these medicines exactly as told. Make sure to do these things: Take the right amount of medicine at the same time each day. Ask your doctor: ?How long to wait between doses. ?If you should take your medicine with food. ?If you should stay away from some foods, drinks, or medicines. ?What side effects you should watch for. Use only the medicines that your doctor said to use. Do not use medicines that were given to someone else. Drink a large glass of water when you take your medicine. Drink enough fluid to keep your pee (urine) pale yellow. Ask your pharmacist for a tool to measure your medicine. This may be a syringe, cup, or spoon. Throw out any extra medicine. Follow these instructions at home: Take dijk-zmt-irbvvez and prescription medicines as told by your doctor. Return to your normal activities as told by your doctor. Ask your doctor what activities are safe for you. Keep all follow-up visits as told by your doctor. This is important. Contact a doctor if: You feel worse. You have one of these after you start your medicine: ?New joint pain. ?New muscle aches. You have side effects from your medicine, such as: ?Stomach pain. ?Watery poop. ?Feeling like you may vomit. ?White patches in your mouth or throat. Get help right away if: You have a very bad allergic attack. If this happens, stop taking your medicine right away. You mayget: ?Hives. These are raised, itchy, red bumps on your skin. ?Skin rash. ?Trouble breathing. ?Breathing that has whistling sounds. ?Swelling on your body. ?A dizzy feeling. ?Vomiting. You have symptoms of liver problems. You may have: ?Dark pee, or pee that is the color of blood. ?Yellow skin. ?Easy bruising. ?Easy bleeding. You have very bad watery poop. You have cramps in your belly. You have a very bad headache. These symptoms may be an emergency. Do not wait to see if the symptoms will go away. Get medical help right away. Call your local emergency services (911 in the [place] Do not drive yourself to the hospital. Summary Antibiotics are used to treat infections caused by bacteria. Take these medicines safely and only when needed. Your doctor may change or stop your medicine based on your test results. Take all your medicine even when you feel better. This information is not intended to replace advice given to you by your health care provider. Make sure you discuss any questions you have with your health care provider. Document Revised: 03/04/2020 Document Reviewed: 03/11/2020 [employer] Patient Education 2022 [employer]. 08/02/2023 10:11:36 Community-Acquired Pneumonia, Adult, [id number] Community-Acquired Pneumonia, Adult Pneumonia is an infection of the lungs. It causes irritation and swelling in the airways of the lungs. Mucus and fluid may also build up inside the airways. This may cause coughing and trouble breathing. One type of pneumonia can happen while you are in a hospital. A different type can happen when you are not in a hospital (community-acquired pneumonia). What are the causes? This condition is caused by germs (viruses, bacteria, or fungi). Some types of germs can spread from person to person. Pneumonia is not thought to spread from person to person. What increases the risk? You have a long-term (chronic) disease, such as: ?Disease of the lungs. This may be chronic obstructive pulmonary disease (COPD) or asthma. ?Heart failure. ?Cystic fibrosis. ?Diabetes. ?Kidney disease. ?Sickle cell disease. ?HIV. You have other health problems, such as: ?Your body's defense system (immune system) is weak. ?A condition that may cause you to breathe in fluids from your mouth and nose. You had your spleen taken out. You do not take good care of your teeth and mouth (poor dental hygiene). You use or have used tobacco products. You go where the germs that cause this illness are common. You are older than 65 years of age. What are the signs or symptoms? A cough. A fever. Sweating or chills. Chest pain, often when you breathe deeply or cough. Breathing problems, such as: ?Fast breathing. ?Trouble breathing. ?Shortness of breath. Feeling tired (fatigued). Muscle aches. How is this treated? Treatment for this condition depends on many things, such as: The cause of your illness. Your medicines. Your other health problems. Most adults can be treated at home. Sometimes, treatment must happen in a hospital. Treatment may include medicines to kill germs. Medicines may depend on which germ caused your illness. Very bad pneumonia is rare. If you get it, you may: Have a machine to help you breathe. Have fluid taken away from around your lungs. Follow these instructions at home: Medicines Take jyrq-are-ggmmdlx and prescription medicines only as told by your doctor. Take cough medicine only if you are losing sleep. Cough medicine can keep your body from taking mucus away from your lungs. If you were prescribed antibiotics, take them as told by your doctor. Do not stop taking them even if you start to feel better. Lifestyle Do not smoke or use any products that contain nicotine or tobacco. If you need help quitting, ask your doctor. Do not drink alcohol. Eat a healthy diet. This includes a lot of vegetables, fruits, whole grains, low-fat dairy products, and low-fat (lean) protein. General instructions Rest a lot. Sleep for at least 8 hours each night. Sleep with your head and neck raised. Put a few pillows under your head or sleep in a reclining chair. Return to your normal activities as told by your doctor. Ask your doctor what activities are safe for you. Drink enough fluid to keep your pee (urine) pale yellow. If your throat is sore, gargle with a mixture of salt and water 3 4 times a day or as needed. To make salt water, completely dissolve 1 tsp (3 6 g) of salt in 1 cup (237 mL) of warm water. Keep all follow-up visits. How is this prevented? Getting the pneumonia shot (vaccine). These shots have different types and schedules. Ask your doctor what works best for you. Think about getting this shot if: ?You are older than 65 years of age. ?You are 19 65 years of age and: ?You are being treated for cancer. ?You have long-term lung disease. ?You have other problems that affect your body's defense system. Ask your doctor if you have one ofthese. Getting your flu shot every year. Ask your doctor which type of shot is best for you. Going to the dentist as often as told. Washing your hands often with soap and water for at least 20 seconds. If you cannot use soap and water, use hand sample worker. Contact a doctor if: You have a fever. You lose sleep because your cough medicine does not help. Get help right away if: You are short of breath and this gets worse. You have more chest pain. Your sickness gets worse. This is very serious if: ?You are an older adult. ?Your body's defense system is weak. You cough up blood. These symptoms may be an emergency. Get help right away. Call 911. Do not wait to see if the symptoms will go away. Do not drive yourself to the hospital. Summary Pneumonia is an infection of the lungs. Community-acquired pneumonia affects people who have not been in the hospital. Certain germs can cause this infection. This condition may be treated with medicines that kill germs. For very bad pneumonia, you may need a hospital stay and treatment to help with breathing. This information is not intended to replace advice given to you by your health care provider. Make sure you discuss any questions you have with your health care provider. Document Revised: 07/21/2022 Document Reviewed: 07/21/2022 [employer] Patient Education 2022 [employer] Follow Up Care 07/30/2023 20:29:22 With:HARPAL HAYES MD, FAM Address: [address] [place] [id number] When:08/09/2023 10:30:00 [facility]02-27-[address]:Result Comment: Electronically Signed By: Hector Meier DO.br\Date and Time Signed: 08/02/23 10:18 [id number] NotePT Evaluation done this date. Pt. with on AM-PAC this date. Supervision to [facility] with all activities this date. Recommend home health PT, will continue to follow while here.[facility]02-25-[address] [facility] Comment on above:Result Comment: Electronically Signed By: Christie Zayas MD\.br\Date and Time Signed: 07/31/23 03:31 [id number] Evaluation note* Encounter Date Diagnosis Assessment Notes Treatment Notes Treatment Clinical Notes Jun, Hypertensive chronic kidney disease with stage 1 through stage 4 chronic kidney disease, or unspecified chronic kidney disease (ICD-10 - I12.9) Her blood pressure is controlled and she appears to be euvolemic on exam. Continue current medications. I have [...] renal US showed b/l renal cortical atrophy. Patient I have advised the daughter that her medications need to be adjusted due to her sleepiness. They can reduce the dose of the trazodone on Lyrica and Requip. She will contact patient PCP to adjust dose doses. 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 Continue to follow with PCP for DM management. I would recommend to stop the metformin if EGFR drop below 30 mm/min. She was taken off of the CHITRA and ARB after ADIA. 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 She still has a low magnesium. Will increase oral magnesium once daily. [email or web address] Other 12-28-2023 Evaluation note* Encounter Date Diagnosis Assessment Notes Treatment Notes Treatment Clinical Notes May, Acute non-recurrent maxillary sinusitis (ICD-10 - J01.00) Take antibiotic as directed. If develop wheezing, chest tightness, itching, bad cough, blue skin color, seizures, swelling of face, lips, tongue, or throat report to ED. [email or web address] Other 10-02-2023 Evaluation note* Encounter Date Diagnosis Assessment Notes Treatment Notes Treatment Clinical Notes Mar, Lumbosacral spondylosis (ICD-10 - M47.817) Bancroft refilled. Requests to increase dose due to [...] symptoms. Any developing patterns. Stay well hydrated. [email or web address] Other 08-08-2023 Evaluation note* Encounter Date Diagnosis Assessment Notes Treatment Notes Treatment Clinical Notes Jan, Hypertensive chronic kidney disease with stage 1 through stage 4 chronic kidney disease, or unspecified chronic kidney disease (ICD-10 - I12.9) [email or web address] Other 07-17-2023 Evaluation note* Encounter Date Diagnosis [...] due to the multiple course of antibiotics [email or web address] Other [facility]-30-2023 [facility]Result Comment: Electronically Signed By: Akua NICHOLSON\.br\Date and Time Signed: 12/03/22 08:21 EDT\.br\Electronically Co-Signed By: Akua NICHOLSON\.br\Date and Time Co-Signed: 12/03/22 10:36 EDT\.br\Electronically Co-Signed By: Emma SALINAS MD\.br\Date and Time Co- Signed: 12/03/22 11:45 [id number] NotePT Evaluation done this date. Pt. with 04/29 on AM-PAC this date. She is very weak and requires modAx1 with all activity. She is a fall risk and would likely benefit from SNF.[facility]06-29-2023 NoteUniversity [facility] CenterComment on above:Result Comment: Electronically Signed By: Akua NICHOLSON\.br\Date and Time Signed: 12/02/22 13:59 EDT\.br\Electronically Co-Signed By: Akua NICHOLSON\.br\Date and Time Co-Signed: 12/02/22 14:00 EDT\.br\Electronically Co- Signed By: Emma SALINAS MD\.br\Date and Time Co-Signed: 12/02/22 14:02 EDT 11-14-2022 NoteUniversity [facility] CenterComment on above:Result Comment: Electronically Signed By: Jeff SUTTON MD\.br\Date and Time Signed: 11/14/22 08:00 [id number] NotePT Evaluation done this date. Pt. with 04/29 on AM-PAC this date. Unable to attempt getting up due to bed height and pt. being very short and weak causing safety issues. She needs mod Ax2 with bed mobility. Recommend SNF.[facility]06-08-2023 [facility] CenterComment on [facility]:Result Comment: Electronically Signed By: Tyson COLEMAN DO\.br\Date and Time Signed: 11/11/22 05:44 [id number] Evaluation note * Encounter Date Diagnosis Assessment Notes Treatment Notes [...] has a low magnesium. Continue oral magnesium [email or web address] Other 12-22-2022 History general Narrative - Reported* Type Description Date Medical History DM Medical History Fibromyalgia Medical History Arthritis Medical History HIP PAIN BILATERAL Medical History NERVE 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 BI LATERAL Medical History UTI 05/27/22 [facility] Surgical History Procedure:Colostomy;Disease: no t [...] NERVE BLOCK 04/09/2022 Hospitalization History see above [email or web address] Other 12-22-2022 History general Narrative - Reported* Type Description Date Medical History DM Medical History Fibromyalgia Medical History Arthritis Medical History HIP PAIN BILATERAL Medical History NERVE 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 BI LATERAL Medical History UTI 05/27/22 [facility] R Medical History UTI 11/06/2022 GIVEN BACTRIM Medical History UTI 11/10/2022 TAKEN TO [facility] Surgical History Procedure:Colostomy;Disease: no t current Surgical [...] History UTI 11/06/2022 Hospitalization History UTI AT [facility] AND THEN [facility] 11/12/2022 [email or web address] Other 12-22-2022 History general Narrative - Reported* Type Description Date Medical History DM Medical History Fibromyalgia Medical History Arthritis Medical History HIP PAIN BILATERAL Medical History NERVE 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 BI LATERAL Medical History UTI 05/27/22 [facility] Medical History UTI 11/06/2022 GIVEN BACTRIM Medical History UTI 11/10/2022 TAKEN TO [facility] Surgical History Colostomy Surgical History right TKA 2016 Surgical History left TKA 2018 Surgical History Lt femur with yadiel 3 surgeries Surgical History left wrist fracture Surgical History Lt wrist pins and rods Surgical History left femur fracture-yadiel placeme nt Surgical History RT TKA PER DR CANTRELL 04/22/16 Surgical History LT TKA PSI PER DR CANTRELL 03/09 Surgical History perforated bowel Surgical History BILATERAL NERVE BLOCK IN SACRAI L AREA 12/04/2021 Surgical History BILATERAL NERVE BLOCK 04/09/2022 Hospitalization History see above Hospitalization History UTI 11/06/2022 Hospitalization History UTI AT [facility] AND THEN [facility] 11/12/2022 [email or web address] Other 09-15-2022 History of Present illness Narrative* Madai Webb MD - 02/18/2022 8:44 PM EDT Images from the original note were not included. EMERGENCY TRIAGE, TREAT AND TRANSPORT (ET3) DOCUMENTATION OF TELEHEALTH VISIT Date / Time: 01/08/2022 / 0345am Name: Suhas Patterson : 1945 SSN: [id number] EMS Agency: [facility] [x] Verbal consent obtained [...] by: Madai Webb MD documented in this [id number] NotePROCEDURE: XR ANKLE RT MIN 3 VIEWS, [...] Electronically authenticated by: LINDA REED Date: 2021-11-16 16:37[facility]06-13-2022 NotePROCEDURE: XR ANKLE RT MIN [...] Electronically authenticated by: LINDA REED Date: 2021-11-16 16:37[facility]01-13-2022 Evaluation note* Encounter Date Diagnosis [...] within the goal. Continue oral Vit D 48153 units 3/week Jun, Gout (ICD-10 - M10.9) [...] UTI so I have prescribed oral antibiotic. [email or web address] Other Evaluation + Plan note No data available for this section [facility] Evaluation note* Diagnosis Fall, initial encounter- Primary documented in this encounter [facility] Information[facility] [employer] Other Evaluation noteNo assessment information available [facility] Work Phone: Evaluation note* Diagnosis Onset Date Resolution Status Cellulitis of leg without foot, left acute Fibromyalgia acute Insomnia acute Restless leg syndrome acute Anemia of renal disease acut e CKD (chronic kidney disease) stage 3, GFR 30-59 ml/min acute 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 Gout acute [id number] acute Hypomagnesemia acute Secondary hyperparathyroidism acute [facility] Work Phone: History general Narrative - Reported* Type Description [...] History perforated bowel Hospitalization History see above [place] [facility] Discharge instructions No data available for this section [facility] Progress note No data available for this section [employer] Care Summary Purpose Family History Relationship Condition Age at Onset Recorded Date/T erin Not Specified Unknown family medical history Unknown brother Malignant neoplasm Unknown father Diabetes mellitus Unknown Hypertension Unknown Heart disease Unknown Unknown mother Hypertension Unknown Diabetes mellitus Unknown son Hypertension Unknown Advance Directives Advance Directive Response Recorded Date/ Time Advance Directives No February 1:29pm Chief Complaint and Reason for Visit Chief Complaint 3 month follo wup Chief Complaint 3 month follo wup RENAL 6 month follow up Reason for Visit Cellulitis of leg wi thout foot, left Fibromyalgia Insomnia Restless leg syndrome Anemia of renal disease CKD (chronic kidney disease) stage 3, GFR 30-59 ml/min Diabetes mellitus with chronic kidney disease Gout [id number] Hypomagnesemia Secondary hyperparathyroidism Additional Source Comments INFORMATION SOURCE (unrecogn ized section and content) DATE CREATED AUTHOR 11/29/2017 [facility] DATE CREATED AUTHOR AUTHOR'S ORGANIZ ATION 03/06/2022 [facility] DATE CREATED AUTHOR AUTHOR'S ORGANIZ ATION 06/08/2022 [facility] DATE CREATED AUTHOR AUTHOR'S ORGANIZ ATION 07/12/[address] [facility] EPIC DATE CREATED AUTHOR AUTHOR'S ORGANIZ ATION 08/08/2023 [facility] DATE CREATED AUTHOR AUTHOR'S ORGANIZ ATION 11/08/2023 [facility] DATE CREATED AUTHOR AUTHOR'S ORGANIZ ATION 11/24/2023 [facility] REASON FOR VISIT (unrecogniz ed section and content) Reason Comments Fall Controlled mechanica l fall, lowered while onto bed. Patient Care team informatio n (unrecognized section and content) Team Status: Active Member Role Status Dates Max Daniel Villeda , DO Primary Care Provider Active Team Status: Inactive Member Role Status Dates Max Daniel Villeda , DO Primary Care Provider Active Start: December 12, 2023 End: December 12, 2023 Harpal Hayes MD Attending Provider Active St art: December 12, 2023 End: December 12, 2023 Team Status: Active Member Role Status Dates Art Villeda , DO Primary Care Provider Active Start: December 13, 2023 Yaneth Marshall MD Attending Provider Active Start : December 13, 2023 Team Status: Inactive Member Role Status Dates Max Daniel Villeda , DO Primary Care Provider Active Start: December 20, 2023 End: December 20, 2023 Yaneth Marshall MD Attending Provider Active Start : December 20, 2023 End: December 20, 2023 Goals (unrecognized section and content) Goals may be documented in a n alternate section FOR RECORDS PERTAINING TO PATIENTS WHO ARE [...] PRIMARY CLINICAL RECORDS. [facility] [employer] [facility]. provides no warranty or guarantee of the accuracy or completeness of information in this document.
[2024-01-16 15:25] LABS: Bacteria Urine TRACE #/HPF (NONE SEEN); Mucus Urine NONE SEEN (NONE SEEN); RBC Urine NONE SEEN #/HPF (0-2)
[2024-01-16 15:26] LABS: Cast Seen? NONE SEEN #/LPF (NONE SEEN); Crystals Seen? None Seen #/HPF (None Seen); Squamous Epithelial Cell Urine RARE #/LPF (NONE/RARE); Urine Culture Indicated YES
== END 2024-01-16 15:05 | disposition home or self-care (01) ==
LOC: LAB 15:04
PROVIDERS: PCP Family Medicine; Visit Provider Family Medicine
DX: R39.9 Unspecified symptoms and signs involving the genitourinary system (principal); R82.90 Unspecified abnormal findings in urine
CPT/HCPCS: 81001; 87086; 87150; 87186

== ENCOUNTER 2024-04-13 11:29 | Outpatient (OUT) | payer MEDICARE, SELFPAY ==
[2024-04-13 12:15] LABS: Anion Gap 15.4; Calcium 9.1 mg/dL (8.5-10.1); Carbon Dioxide 25.5 mmol/L (21.0-32.0); Chloride 103 mmol/L (98-107); Estimated GFR (African America 33 (>=60 mL/min/1.73m^2); Estimated GFR (Non-African Ame 27 (>=60 mL/min/1.73m^2); Glucose 223 mg/dL (74-106); Potassium 3.9 mmol/L (3.5-5.1); Sodium 140 mmol/L (136-145)
[2024-04-13 12:28] LABS: Basophils Absolute Auto 0.1 10^3/uL (0.0-0.1); Basophils Percent Auto 0.8 % (0.2-2.0); Eosinophils Absolute Auto 0.2 10^3/uL (0.0-0.7); Eosinophils Percent Auto 3.8 % (0.9-7.0); Hematocrit 32.7 % (36.0-48.0); Hemoglobin 10.5 g/dL (12.0-16.0); Immature Granulocytes Abs Auto 0.01 10^3/uL (0.00-0.03); Immature Granulocytes Pct Auto 0.2 % (0.0-0.5); Lymphocytes Absolute Auto 1.6 10^3/uL (1.2-3.8); Lymphocytes Percent Auto 25.5 % (20.5-60.0); Mean Corpuscular HGB Conc 32.1 g/dL (29.9-35.2); Mean Corpuscular Hemoglobin 30.1 pg (26.7-34.0); Mean Corpuscular Volume 93.7 fL (81.0-99.0); Mean Platelet Volume 9.1 fL (9.5-13.5); Monocytes Absolute Auto 0.6 10^3/uL (0.3-0.8); Monocytes Percent Auto 8.6 % (1.7-12.0); Neutrophils Absolute Auto 3.9 10^3/uL (1.4-6.5); Neutrophils Percent Auto 61.1 % (43.0-75.0); Platelet Count 336 10^3/uL (150-450); Red Blood Count 3.49 10^6/uL (4.20-5.40); Red Cell Distribution Width 14.2 % (11.0-15.0); White Blood Count 6.4 10^3/uL (4.0-11.0)
[2024-04-13 12:36] LABS: Erythrocyte Sedimentation Rate 30 mm/hr (<=30)
== END 2024-04-13 11:30 | disposition home or self-care (01) ==
LOC: LAB 11:30
PROVIDERS: PCP Family Medicine; Visit Provider Family Medicine
DX: R51.9 Headache, unspecified (principal); N18.9 Chronic kidney disease, unspecified; D63.1 Anemia in chronic kidney disease
CPT/HCPCS: 36415; 80048; 85025; 85652

== ENCOUNTER 2024-07-12 00:59 | Inpatient (IN) | payer MEDICARE, SELFPAY ==
[2024-07-12] VITALS (48 sets, daily range): BP systolic 97–145; BP diastolic 50–84; PULSE 76–148; TEMP 36.5–38.3; O2SAT 80–98; BMI 32.4
--- OUTSIDE RECORDS SUMMARY | 2024-07-12 01:05 | XMS_ITS | CCD ---
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 Pinion Name Role Phone PHYSICIAN, DEFAULT Unavailable Unavailable PHYSICIAN, DEFAULT Unavailable Unavailable DIO ZAFAR Unavailable Unavailable PHYSICIAN, DEFAULT Unavailable Unavailable PHYSICIAN, DEFAULT Unavailable Unavailable DIO ZAFAR Unavailable Unavailable PHYSICIAN, DEFAULT Unavailable Unavailable PHYSICIAN, DEFAULT Unavailable Unavailable DIO ZAFAR Unavailable Unavailable PHYSICIAN, DEFAULT Unavailable Unavailable PHYSICIAN, DEFAULT Unavailable Unavailable DIO ZAFAR Unavailable Unavailable GermaniaYaneth eden Unavailable Unavailable Primary Care Provider Unavailabl e PROVIDER, UNKNOWN Attending Unavailable PROVIDER, UNKNOWN Admitting Unavailable FREDDY, DR HARPAL Rodriguez Primary Care Unavailable MEI DAS Attending Unavailable MEI DAS Admitting Unavailable FREDDY, DR HARPAL Rodriguez Primary Care Unavailable YANETH SOLO Attending Unavailable YANETH SOLO Admitting Unavailable FREDDY, [...] Unavailable FREDDY, DR HARPAL Rodriguez Consulting Unavailable YANETH SOLO Consulting Unavailable FREDDY, DR HARPAL Rodriguez Primary Care Unavailable GERMANIA, YANETH Attending Unavailable GERMANIA, YANETH Admitting Unavailable PIPPA, MEI Consulting Unavailable PIPPA MEI Attending Unavailable PIPPA, MEI Admitting Unavailable DR HARPAL HAYES Primary Care Unavailable GERMANIA, YANETH Consulting Unavailable ART VILLEDA Primary Care Unavailable GERMANIA, YANETH Attending Unavailable GERMANIA, YANETH Admitting Unavailable HARPAL HAYES Primary Care Physician [phone] Natalie Lowe Unavailable Unavailable Harpal Hayes Unavailable LINDA ROUSE Attending Unavailable LINDA ROUSE Referring Unavailable ZACH SILVA Attending Unavailable HARPAL HAYES Referring Unavailable HARPAL HAYES Primary Care Unavailable Christie Zayas Admitting Unavailable Hector Meier Attending Unavailable DO Terry Delvalle Attending Unavailable Tika CHRISTENSEN Attending Unavailable Saima CHRISTENSENr Roberto Admitting Unavailable AMPARO, DO Ronobir R Admitting Unavailabl e AMPARODO Ronobir R Attending Unavailabl e [facility], XXXX Consulting Unavailable Akkina, Toby Consulting Unavailable Akkina, Toby Consulting Unavailable Akkina, Toby Consulting Unavailable Akkina, Toby Consulting Unavailable Akkina, Toby Consulting Unavailable Akkina, Toby Consulting Unavailable Akkina, Toby Consulting Unavailable Akkina, Toby Consulting Unavailable Akkina, Toby Consulting Unavailable Akers, Goins Consulting Unavailable MD Briseida Akers Consulting Unavailable Akers, Goins Consulting Unavailable Akers, Goins Consulting Unavailable Akers, Goins Consulting Unavailable Akers, Goins Consulting Unavailable Akers, Goins Consulting Unavailable Akers, Goins Consulting Unavailable Akers, Goins Consulting Unavailable Akers, Goins Consulting Unavailable MD Jack Toby Consulting Unavailable [facility], XXXX Consulting Unavailable DO AMPARO Ronobir R Admitting Unavailabl e AMPARO, DO Ronobir R Attending Unavailabl e Akers, Goins Consulting Unavailable MD Briseida Akers Consulting Unavailable Akers, Goins Consulting Unavailable Akers, Goins Consulting Unavailable Akers, Goins Consulting Unavailable Akers, Goins Consulting Unavailable Akers, Goins Consulting Unavailable Akers, Goins Consulting Unavailable Akers, Goins Consulting Unavailable Akers, Goins Consulting Unavailable Miguel Ramires Attending Unavailable JOSH AUSTIN Attending Unavailable JOSH AUSTIN Attending Unavailable JOSH AUSTIN Attending Unavailable Allergies Allergy Classification Reported Allergen(s) Allergy Type Date of Onset Reaction(s) Facility (20 sources) butorphanol; Translations: [Stadol] Drug Allergy 2 ANXIOUS [facility] (14 sources) PT DENIES ANY METAL ALLERGY Propensity to adverse reactions Unknown [facility] Other (9 sources) Butorphanol; Translations: [butorphanol] Drug Allergy 4 [facility] (10 sources) Stadol *ANALGESICS - OPIOID* Propensity to adverse reactions Unknown [employer] [facility] Other (2 sources) Allergies Reconciled Propensity to adverse reactions Unknown [employer] Other (1 source) Butorphanol; Translations: [BUTORPHANOL TARTRATE] Drug Allergy 4 [facility] Medications Current Medications Medication Drug Class(es) Dates Sig (Normalized) Sig (Original) acetaminophen 325 mg oral tablet (20 sources) Start: 04-06-2024 acetaminophen 325 mg Tab 650 mg = 2 tab(s), Oral, q6hr, PRN Pain, not to exceed 4000 mg/day, Refills(s) 0 Start Date: 04/06/24 Status: Ordered Start: 08-04-2023 take 1000 mg by mout h every six hours Acetaminophen Active 1000 MG [...] Status: Ordered take 2 capsules by m out every eight hours Acetaminophen 500 MG 2 capsule as needed Orally every 8 hrs Active acetaminophen 325 mg / HYDROcodone bitartrate 5 mg oral tablet (20 sources) Opioid Agonist Start: 09-06-2023 End: 01-02-2024 take 1 tablet by mouth once daily Hydrocodone-Acetaminophen Discontinued 1 TAB PO Daily December 02, 2023 January 02, 2024 9:18am Start: 08-02-2023 End: 09-06-2023 take 1 tablet [...] Active Start: 03-07-2023 take 1 tablet by sraa th every eight hours as needed HYDROcodone-Acetaminophen 7.5-325 MG 1 tablet as needed Orally q8h prn for 30 days Mar, Active Start: 01-27-2023 take 1 tablet by sara th every six hours HYDROcodone-Acetaminophen 5-325 MG 1 tab let as needed Orally every 6 hrs for 30 days Jan, Active Start: 12-06-2022 End: 03-30-2024 take 1 tablet by mouth twice daily Hydrocodone-Acetaminophen Active 1 TAB P O Twice daily 60 March 30, 2024 Start: 12-06-2022 take 1 tablet by sara th every eight hours as needed for pain Hend[place] 325 mg-5 mg oral tablet 1 tab(s), Oral, q8hr as needed for pain, Refill(s) 0 Start Date: 12/06/22 Status: Ordered Start: 11-13-2022 Hendley 325 mg-5 mg oral tablet 1 tab(s), Oral, q6hr for pain, 15 tab(s), Refill(s) 0 Start Date: 11/13/22 Status: Ordered Albuterol (Eqv-Ventolin HFA) 90 mcg/inh inhalation aerosol (1 source) Start: 04-06-2024 Albuterol (Eqv-Ventolin HFA) 90 mcg/inh inhalation aerosol 1 inh, Inhalation, q2hr, 8.5 gm, Refill(s) 0, [facility], 157.4, cm, 04/04/24 0:33:00 EDT, Height/Length Dosing, 86.1, kg, 04/04/24 0:33:00 EDT, Weight Dosing Start Date: 04/06/24 Status: Ordered amoxicillin 500 mg oral tablet (11 sources) Penicillin-class Antibacterial Start: 12-20-2022 take 1 tablet by mouth every eight hours Amoxicillin 500 MG 1 tablet Orally every 8 hrs for 7 days Dec, Active amoxicillin 875 mg / clavulanate 125 mg oral tablet (1 source) Penicillin-class Antibacterial Start: 04-06-2024 End: 04-11-2024 take 1 tablet by mouth every twelve hours Augmentin 875 mg-125 mg Tab 1 tab(s), Oral, q12hr for 5 day(s), 10 tab(s), Refill(s) 0, [facility], 157.4, cm, 04/04/24 0:33:00 EDT, Height/Length Dosing, 86.1, kg, 04/04/24 0:33:00 EDT, Weight Dosing Start Date: 04/06/24 Stop Date: 04/11/24 Status: Ordered aspirin 81 mg delayed release oral tablet (20 sources) Platelet Aggregation Inhibitor, Nonsteroidal Anti-inflammatory Drug Start: 09-22-2018 take 1 tablet by mouth once daily aspirin 81 mg Oral EC Tab 81 mg = 1 tab(s), Oral, Daily, Refills(s) 0 Start Date: 11/15/22 Status: Ordered atorvastatin (20 sources) HMG-CoA Reductase Inhibitor Start: 03-27-2024 take 1 tablet by mouth once daily Atorvastatin Active 0 .ROUTE .COMPLEX 90 March 27, 2024 10:04pm TAKE ONE TABLET BY MOUTH DAILY Start: 09-22-2018 End: 03-27-2024 take 1 tablet by mouth at bedtime atorvastatin 10 mg Tab 10 mg = 1 tab(s), Oral, Bedtime, Refills(s) 0 Start Date: 11/11/22 Status: Ordered Azithromycin (3 sources) Macrolide Antimicrobial Start: 04-02-2024 Azithr omycin Active 0 PO .COMPLEX April 02, 2024 12:00am For 250 mg dose pack: take 500 mg today (day 1), then 250 mg for 4 days (days 2-5) PO Start: 08-03-2023 take 1 tablet by sara once daily azithromycin 250 mg Tab 250 mg = 1 tab(s), Oral, Daily, # 2 tab(s), Refills(s) 0, Pharmacy: [facility], 149.9, cm, 07/30/23 20:35:00 EST, Height/Length Dosing, 88.9, kg, 07/30/23 20:35:00 EST, Weight Dosing Start Date: 08/03/23 Status: Ordered Start: 06-02-2023 Azithromycin 2 50 MG as directed Orally 2 tabs po today, then 1 tab daily x 4 more days for 5 May, Active benzonatate 100 mg oral capsule (1 source) Non-narcotic Antitussive Start: 04-06-2024 End: 04-11-2024 take 1 capsule by mouth three times daily as needed for cough Tessalon 100 mg Cap 100 mg = 1 cap(s), Oral, TID, PRN Cough, X 5 day(s), # 15 cap(s), Refills(s) 0, Pharmacy: [facility], 157.4, cm, 04/04/24 0:33:00 EDT, Height/Length Dosing, 86.1, kg, 04/04/24 0:33:00 EDT, Weight Dosing Start Date: 04/06/24 Stop Date: 04/11/24 Status: Ordered cefdinir 300 mg oral capsule (1 source) Cephalosporin Antibacterial Start: 12-03-2022 End: 12-07-2022 take 1 capsule by mouth every twelve hours cefdinir 300 mg Cap 300 mg = 1 cap(s), Oral, q12hr, X 4 day(s), # 8 cap(s), Refills(s) 0, Pharmacy: [facility], 152, cm, 12/02/22 9:48:00 EDT, Height/Length Dosing, 87.8, kg, 12/02/22 9:48:00 EDT, Weight Dosing Start Date: 12/03/22 Stop Date: 12/07/22 Status: Ordered cefuroxime 500 mg oral tablet (2 sources) Cephalosporin Antibacterial Start: 08-03-2023 take 1 tablet by mouth twice daily cefuroxime 500 mg oral tablet 500 mg = 1 tab(s), Oral, BID, # 4 tab(s), Refills(s) 0, Pharmacy: [facility], 149.9, cm, 07/30/23 20:35:00 EST, Height/Length [...] 0 Start Date: 11/11/22 Status: Ordered cholecalciferol 0.125 mg oral capsule (20 sources) [...] M CG (5000 UT) 1 capsule Orally MON, WED, FRI Active take 1 tablet by [facility] Vitamin D3 Maximum Strength 125 MCG (5000 UT) 1 tab(s) Orally THREE TIMES A WEEK Active Vitamin D3 250 M CG (52389 UT) 1 capsule Orally MON, TUE, FRI Active ciprofloxacin 500 mg oral tablet (2 sources) Quinolone Antimicrobial Start: 12-01-2022 take 1 tablet by mouth every twelve hours ciprofloxacin 500 mg Tab 500 mg = 1 tab(s), Oral, q12hr, # 10 tab(s), Refills(s) 0, Pharmacy: [facility], 152, cm, 11/10/22 21:21:00 EDT, Height/Length Dosing, 83, kg, 11/10/22 21:21:00 EDT, Weight Dosing Start Date: 12/01/22 Status: Ordered D-Mannose (4 sources) Start: 08-04-2023 take 1 mg by [...] 1:00am Start: 07-31-2023 take 1 capsule by mo [facility] twice daily as needed for constipation Colace 100 mg Cap 100 mg = 1 cap(s), Oral, BID, PRN for constipation, # 20 cap(s), Refills(s) 0 Start Date: 07/31/23 Status: Ordered take 1 capsule by mo [facility] four times weekly as needed Stool Softener 240 MG 1 capsule as needed Orally four times a week as needed for 30 days Active ferrous sulfate 325 mg oral tablet (20 sources) Start: 04-06-2024 take 1 tablet by mouth once daily ferrous sulfate 325 mg Tab 325 mg = 1 tab(s), Oral, Daily, # 30 tab(s), Refills(s) 0, Pharmacy: [facility], 157.4, cm, 04/04/24 0:33:00 EDT, Height/Length Dosing, 86.1, kg, 04/04/24 0:33:00 EDT, Weight Dosing Start Date: 04/06/24 Status: Ordered Start: 02-08-2024 take 1 tablet by sara once daily Ferrous Sulfate (Ferosul) 325 mg (65 mg iron) tablet Active 0 .ROUTE .COMPLEX 90 February 08, 2024 1:25pm TAKE ONE TABLET BY MOUTH DAILY Start: 08-04-2023 End: 02-08-2024 take 325 mg by mouth three times weekly Ferrous Sulfate Discontinued 325 MG PO 3 Times a week August 04, 2023 1:00am February 08, 2024 1:25pm Start: 11-11-2022 ferrous sulfat e 325 mg Tab 325 mg = 1 tab(s), Oral, MonWedFri, # 270 tab(s), Refills(s) 0 Start Date: 11/11/22 Status: Ordered take 1 tablet by [facility] three times weekly Ferrous Sulfate 325 (65 Fe) MG 1 tablet Orally three times a week Active take 1 tablet by sara th three times weekly Ferrous Sulfate 325 (65 Fe) MG 1 tablet Orally three times a week Active folic acid 1 mg oral tablet (1 source) Start: 04-06-2024 take 1 tablet by mouth once daily folic acid 1 mg Tab 1 mg = 1 tab(s), Oral, Daily, # 30 tab(s), Refills(s) 0, Pharmacy: [facility], 157.4, cm, 04/04/24 0:33:00 EDT, Height/Length Dosing, 86.1, kg, 04/04/24 0:33:00 EDT, Weight Dosing Start Date: 04/06/24 Status: Ordered furosemide 40 mg oral tablet (20 sources) Loop Diuretic Start: 11-11-2022 End: 08-17-2023 take 1 tablet by mouth once daily furosemide 40 mg Tab 40 mg = 1 tab(s), Oral, Daily, Refills(s) 0 Start Date: 11/11/22 Status: Ordered Start: 09-22-2018 End: 08-04-2023 take 20 mg by mouth twice daily Furosemide Discontinued 20 MG PO Twice daily September 22, 2018 12:00am August 04, 2023 9:22am 12 hr guaiFENesin 600 mg extended release oral tablet (1 source) Start: 04-06-2024 End: 04-11-2024 take 2 tablets by mouth every twelve hours Mucinex 600 mg Tab-ER 1,200 mg = 2 tab(s), Oral, q12hr, X 5 day(s), # 20 tab(s), Refills(s) 0, Pharmacy: [facility], 157.4, cm, 04/04/24 0:33:00 EDT, Height/Length Dosing, 86.1, kg, 04/04/24 0:33:00 EDT, Weight Dosing Start Date: 04/06/24 Stop Date: 04/11/24 Status: Ordered levothyroxine (20 sources) l-Thyroxi ne Start: 03-06-2024 take 1 tablet by mouth once daily Levothyroxine Active 0 .ROUTE .COMPLEX 90 March 06, 2024 8:28am TAKE ONE TABLET BY MOUTH DAILY Start: 11-13-2022 take 1 tablet by sara th once daily levothyroxine 50 mcg (0.05 mg) Tab 50 mcg = 1 tab(s), Oral, Daily, Refills(s) 0 Start Date: 11/13/22 Status: Ordered Start: 09-22-2018 End: 03-06-2024 take 50 ug by mouth once daily Levothyroxine Discontin ued 50 MCG PO Daily September 22, 2018 12:00am March 06, 2024 8:29am Magnesium (18 sources) take 1 tablet by sara th once daily Magnesium 400 MG 1 Tablet Orally Once a day Active Magnesium 400 MG as directed Orally four times a week Active magnesium oxide 400 mg oral capsule (12 sources) Start: 08-04-2023 End: 08-05-2023 take 400 mg by mouth four times weekly Magnesium Oxide Discontinued 400 MG PO .COMPLEX August 04, 2023 1:00am August 05, 2023 2:42pm four times a week Start: 07-31-2023 take 400 mg by mouth once gio y Magnesium Oxide Active 400 MG PO Daily August 05, 2023 2:41pm Start: 07-31-2023 End: 08-10-2023 take 1 tablet [...] 11/11/22 Stop Date: 11/18/22 Status: Ordered metFORMIN (20 sources) Biguanide Start: 03-27-2024 take 1 tablet by mouth twice daily Metformin Active 0 .ROUTE .COMPLEX March 27, 2024 10:04pm TAKE ONE TABLET BY MOUTH TWICE A DAY Start: 01-30-2016 End: 03-27-2024 take 1 tablet by mouth twice daily metformin 500 mg oral tablet 500 mg = 1 tab(s), Oral, BID, Refills(s) 0 Start Date: 01/30/16 Status: Ordered 24 hr mirabegron 50 mg extended release oral tablet (15 sources) beta3-Adrenergic Agonist Start: 07-31-2023 End: 12-27-2023 take 1 tablet by mouth once daily in the morning Myrbetriq 50 mg oral tablet, extended release TAKE 1 TABLET BY MOUTH EVERY MORNING Start Date: 07/31/23 Status: Ordered take 1 tablet by sara th every twenty-four hours Myrbetriq 50 MG 1 tablet Orally Once a day Active nitroglycerin 0.4 mg sublingual tablet (7 sources) Nitrate Vasodilator Start: 11-11-2022 nitroglyce rin 0.4 mg sublingual Tab 0.4 mg = 1 tab(s), SubLingual, q5min, PRN for chest pain, # 100 tab(s), Refills(s) 0 Start Date: 11/11/22 Status: Ordered nystatin 100 unt/mg topical powder (20 sources) Polyene Antifungal Start: 12-23-2023 Nystatin (N yamyc) 100,000 unit/gram powder Active 0 .ROUTE .COMPLEX December 23, 2023 10:51am APPLY ONE APPLICATION TWICE A DAY TOPICALLY Start: 11-11-2022 End: 12-23-2023 nystatin Top 100,000 units/g Pwdr 1 chantal, Topical, BID, 30 gram, Refill(s) 0 Start Date: 11/11/22 Status: Ordered Nystatin 712381 UNIT/GM 1 application Externally Twice a day for 10 days Active pantoprazole 40 mg delayed release oral tablet (1 source) Proton Pump Inhibitor Start: 04-06-2024 take 1 tablet by mouth once daily Protonix 40 mg Tab-DR 40 mg = 1 tab(s), Oral, Daily, # 30 tab(s), Refills(s) 0, Pharmacy: [facility], 157.4, cm, 04/04/24 0:33:00 EDT, Height/Length Dosing, 86.1, kg, 04/04/24 0:33:00 EDT, Weight Dosing Start Date: 04/06/24 Status: Ordered polyethylene glycol 3350 41259 mg powder for oral solution (14 sources) Osmotic Laxative Start: 11-13-2022 take 17 g by mouth once daily as needed for constipation polyethylene glycol 3350 17 gram packet 17 gm, Oral, Daily, PRN Constipation, Refills(s) 0 Start Date: 11/13/22 Status: Ordered MiraLax 17 GM/SC OOP 1 scoop mixed with 8 ounces of fluid Orally Once a day Active pregabalin 100 mg oral capsule (20 sources) Start: 04-04-2024 take 100 mg by mouth twice daily Lyrica 100 mg, Oral, BID, Refills(s) 0 Start Date: 04/04/24 Status: Ordered Start: 03-19-2024 take 100 mg by mouth twice daily Pregabalin Active 100 MG PO Twice daily 60 March 19, 2024 4:29pm Start: 09-06-2023 End: 03-19-2024 take 75 mg by mouth twice daily Pregabalin Discontinue d 75 MG PO Twice daily 60 March 06, 2024 8:30am March 19, 2024 4:29pm Start: 08-05-2023 End: 09-06-2023 take 150 mg [...] 30 days G89.29 Chronic pain Active rOPINIRole 1 mg oral tablet (20 sources) Nonergot Dopamine Agonist Start: 04-06-2024 take 2 tablets by mouth at bedtime ropinirole 1 mg Tab 2 mg = 2 tab(s), Oral, Bedtime, Refills(s) 0 Start Date: 04/06/24 Status: Ordered Start: 11-11-2023 End: 02-08-2024 take 1 tablet by mouth once daily at bedtime Ropinirole Discontinued 0 .ROUTE .COMPLEX January 11, 2024 9:59pm February 08, 2024 1:25pm TAKE ONE TABLET BY MOUTH ONCE DAILY [...] 22, 2018 12:00am August 05, 2023 2:59pm sulfamethoxazole 800 mg / trimethoprim 160 mg oral tablet (2 sources) Dihydrofolate Reductase Inhibitor Antibacterial, Sulfonamide Antimicrobial Start: 01-23-2024 take 1 tablet by mouth twice daily Sulfamethoxazole-Trimethoprim Active 1 TAB PO Twice daily January 23, 2024 12:00am traZODone hydrochloride 100 mg oral tablet (20 sources) Serotonin Reuptake Inhibitor Start: 04-04-2024 take 100 mg by mouth at bedtime trazodone 100 mg, Oral, Bedtime, Refills(s) 0 Start Date: 04/04/24 Status: Ordered Start: 01-10-2024 End: 03-15-2024 take 1 tablet by mouth once daily at bedtime Trazodone Discontinued 0 .ROUTE .COMPLEX February 14, 2024 8:41am March 15, 2024 1:01pm TAKE ONE TABLET BY MOUTH DAILY AT BEDTIME Start: 09-06-2023 End: 01-10-2024 take 100 mg by mouth once daily at bedtime Trazodone Discontinued 100 MG PO Daily at bedtime September 06, 2023 12:00am January 10, 2024 9:50am Start: 08-05-2023 End: 09-06-2023 take 100 mg [...] 22, 2018 12:00am August 04, 2023 9:27am vitamin b12 1 mg oral tablet (1 source) Vitamin B12 Start: 04-06-2024 take 1 tablet by mouth once daily cyanocobalamin 1000 mcg Tab 1,000 mcg = 1 tab(s), Oral, Daily, # 30 tab(s), Refills(s) 0, Pharmacy: [facility], 157.4, cm, 04/04/24 0:33:00 EDT, Height/Length Dosing, 86.1, kg, 04/04/24 0:33:00 EDT, Weight Dosing Start Date: 04/06/24 Status: Ordered Vitamin C 1000 MG (1 source) take 1 tablet by mouth once daily Vitamin C 1000 MG 1 tablet Orally Once a day Active Vitamin D3 250 MCG (23583 UT) (9 sources) Vitamin D3 250 M CG (47404 UT) 1 capsule Orally TUE, TUE, TUE [...] (Normalized) Sig (Original) acetaminophen 325 mg / oxyCODONE hydrochloride 7.5 mg oral tablet (8 sources) Opioid Agonist Start: 10-20-2018 End: 08-02-2023 take 1 tablet by mouth three times daily Oxycodone-Acetamino phen Discontinued 1 TAB PO Three times daily October 20, 2018 12:00am August 02, 2023 3:33pm Start: 09-22-2018 End: 10-20-2018 take 1 tablet by mouth twice daily Oxycodone-Acetaminophen Discontinued 1 T AB PO Twice daily September 22, 2018 12:00am October 20, 2018 10:53am carvedilol 6.25 mg oral tablet (20 sources) alpha-Adrenergic Skyler, beta-Adrenergic Skyler Start: 09-06-2023 End: 12-20-2023 take 3.125 mg by mouth once daily Carvedilol Discontinued 3.125 MG PO Daily December 12, 2023 2:03pm December 20, 2023 11:27am Start: 09-22-2018 End: 09-06-2023 take 6.25 mg by mouth twice daily Carvedilol Discontinued 6.25 MG PO Twice daily September 22, 2018 12:00am September 06, 2023 10:49am Dexamethasone (17 sources) Corticosteroid Start: 09-17-2015 DEXAMETHASONE Sep, 2 mL doxycycline hyclate 100 mg oral tablet (4 sources) Tetracycline-class Drug Start: 12-12-2023 End: 12-20-2023 take 100 mg by mouth once daily Doxycycline Hyclate Discontinued 100 MG PO Daily December 12, 2023 12:00am December 20, 2023 11:27am Humalog (5 sources) Insulin Analog Start: 04-06-2024 End: 04-06-2024 HumaLOG Sliding Scale 0-10 Unit(s), Injection-Insulin, SubCutaneous, Start date 04/06/24 4:30:00 PM EDT Start Date: 04/06/24 Stop Date: 04/06/24 Status: Completed Start: 04-06-2024 End: 04-06-2024 HumaLOG Sliding Scale 0-10 U nit(s), Injection-Insulin, SubCutaneous, Start date 04/06/24 11:30:00 AM EDT Start Date: 04/06/24 Stop Date: 04/06/24 Status: Completed Start: 04-06-2024 End: 04-06-2024 HumaLOG Sliding Scale 0-10 U nit(s), Injection-Insulin, SubCutaneous, Start date 04/06/24 7:30:00 AM EDT Start Date: 04/06/24 Stop Date: 04/06/24 Status: Completed Start: 12-03-2022 insulin lispro 0-10 Units, SubCutaneous, QIDACHS, Refills(s) 0 Start Date: 12/03/22 Status: Ordered methylPREDNISolone (17 sources) Corticosteroid Start: 02-02-2018 Depo-Medrol 40 mg Jan, 1 mL potassium chloride 10 meq oral tablet (20 sources) Start: 11-11-2022 take 1 tablet by mouth twice daily Potassium Chloride (Eqv-K-Tab) 10 mEq oral tablet, extended release 10 mEq = 1 tab(s), Oral, BID, Refills(s) 0 Start Date: 11/11/22 Status: Ordered Start: 09-22-2018 take 1 tablet by sara twice daily Potassium Chloride Active 1 TAB PO Twice daily September 22, 2018 12:00am Problems Active Problems Problem Classification Problem Date Documented Date Episodic/Chronic Abdominal pain (20 sources) Abdominal pain; Translations: [Unspecified abdominal pain] Onset: 7 Episodic Acute and unspecified renal failure (1 source) Acute renal failure syndrome; Translations: [Acute kidney failure, unspecified] Onset: 4 Episodic Administrative/social admission (18 sources) Worried well; [...] Chronic Coronary atherosclerosis and other heart disease (11 sources) Atherosclerotic heart disease of [place] coronary artery without angina pectoris; Translations: [Coronary atherosclerosis] Onset: 2 Chronic Deficiency and other anemia (20 sources) Anemia of renal disease; Translations: [Anemia in chronic kidney disease] 12-20-2023 Chronic Deficiency and other anemia (5 sources) Anemia in chronic kidney disease; Translations: [ANEMIA IN CHRONIC KIDNEY DISEASE] Onset: 2 Resolved: 2 Chronic Deficiency and other anemia (2 sources) Iron deficiency anemia; Translations: [Iron deficiency anemia, unspecified] Episodic Deficiency and other anemia (1 source) Anemia; Translations: [Anemia, unspecified] Onset: 4 Episodic Delirium, dementia, and amnestic and other cognitive disorders (11 sources) Dementia; Translations: [Unspecified dementia without behavioral disturbance] Onset: 3 Chronic Diabetes mellitus with complications (20 sources) Disorder of kidney due to diabetes mellitus; Translations: [Type 2 diabetes mellitus with diabetic chronic kidney disease] Onset: 2 Resolved: 2 Chronic Diabetes mellitus without complication (4 sources) Type 2 diabetes mellitus without complications; Translations: [Type 2 diabetes mellitus without complication] Onset: 2 Chronic Disorders of lipid metabolism (9 sources) Mixed hyperlipidemia; Translations: [Hyperlipidemia] Onset: 4 12-10-2022 Chronic E Codes: Fall (4 sources) Fall; Translations: [Unspecified fall, initial encounter] Onset: 2 Episodic Essential hypertension (20 sources) Essential hypertension; Translations: [Essential (primary) hypertension] Onset: 4 Chronic Fluid and electrolyte disorders (2 sources) Acidosis; Translations: [Acidosis, unspecified] Onset: 4 Episodic [...] 2 Resolved: 2 Chronic Malaise and fatigue (10 sources) Weakness; Translations: [Asthenia] Onset: 2 Episodic [...] PAIN UNSPECIFIED] Onset: 2 Episodic Nutritional deficiencies (8 sources) Vitamin D deficiency; Translations: [Vitamin D deficiency, unspecified] Onset: 3 Chronic Osteoarthritis (20 sources) Osteoarthritis of knee; Translations: [Unilateral primary osteoarthritis, left knee] 01-31-2016 Chronic Other aftercare (18 sources) Patient encounter status; Translations: [Aftercare following joint replacement surgery] Chronic Other aftercare (1 source) Other long term care pharmacist (current) drug therapy; Translations: [[facility] CURRENT DRUG THERAPY] Onset: 2 Episodic Other aftercare (1 source) half-way (current) use of oral hypoglycemic drugs; Translations: [[facility] USE ORAL HYPOGLYCEMIC DX] Onset: 2 Episodic Other aftercare (1 source) 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 terminology (current) use of insulin; Translations: [[employer] CURRENT USE OF INSULIN] Onset: 2 Episodic Other aftercare (3 sources) Long-term current use of drug therapy; Translations: [Other senior care (current) drug therapy] Onset: 4 Episodic Other and ill-defined cerebrovascular disease (1 source) Cerebrovascular disease; Translations: [Cerebrovascular disease, unspecified] Onset: 3 Chronic Other and ill-defined cerebrovascular disease (7 sources) Small vessel cerebrovascular disease 11-15-2022 Chronic [...] Onset: 4 Episodic Other connective tissue disease (4 sources) Fibromyalgia; Translations: [Myalgia and myositis, unspecified] Onset: 2 Episodic Other connective tissue disease (8 sources) Recurrent falls ; Translations: [Repeated falls] Onset: 3 Episodic Other connective tissue disease (7 sources) Fibromyositis 11-15-2022 Episodic Other connective tissue disease (2 sources) Spasm; Translations: [Other muscle spasm] Episodic Other connective tissue disease (2 sources) Pain in right foot; Translations: [Pain in right foot] Episodic Other diseases of kidney and ureters (20 sources) Secondary hyperparathyroidism; Translations: [Secondary hyperparathyroidism of renal origin] 08-04-2023 Chronic Other diseases of kidney and ureters (7 sources) Secondary hyperparathyroidism of renal origin; Translations: [...] Other hereditary and degenerative nervous system conditions (4 sources) Restless legs; Translations: [Restless legs syndrome] 08-22-2023 Chronic Other hereditary and degenerative nervous system conditions (2 sources) Restless legs syndrome; Translations: [Restless legs syndrome [...] Onset: 3 Episodic Other non-traumatic joint disorders (9 sources) Pain in wrist; Translations: [Pain in [...] right foot] Episodic Other non-traumatic joint disorders (4 sources) Pain in right shoulder; Translations: [Right shoulder pain] 09-06-2023 Episodic Other nutritional; endocrine; and metabolic disorders (20 sources) Hypomagnesemia; Translations: [Hypomagnesemia] 12-20-2023 Chronic Other nutritional; endocrine; and metabolic disorders (8 sources) Hypomagnesemia; Translations: [Disorders of magnesium metabolism] Onset: 2 Resolved: 2 Chronic Other nutritional; endocrine; and metabolic disorders (1 source) Obesity, unspecified; Translations: [OBESITY UNSPECIFIED] Onset: 2 Chronic Other nutritional; endocrine; and metabolic disorders (1 source) Body mass index (BMI) 36.0-36.9, adult; Translations: [BODY MASS INDEX BMI 36.0-36.9 ADULT] Onset: 2 Chronic Other nutritional; endocrine; and metabolic disorders (3 sources) Morbid obesity; Translations: [Morbid (severe) obesity due to excess calories] Onset: 4 Chronic Other nutritional; endocrine; and metabolic disorders [...] conditions (not mental disorders or infectious disease) (20 sources) CT of abdomen abnormal; Translations: [Abnormal findings on diagnostic imaging of other abdominal regions, including retroperitoneum] Onset: 3 12-20-2022 Episodic 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 Other skin disorders (2 sources) Disorder of nail; Translations: [Other nail disorders] Episodic Other upper respiratory infections (2 sources) Chronic sinusitis; Translations: [Chronic sinusitis, unspecified] Chronic Other upper respiratory infections (5 sources) Acute sinusitis; Translations: [Acute sinusitis, unspecified] Episodic Pneumonia (except that caused by tuberculosis or sexually transmitted disease) (6 sources) Pneumonia; Translations: [Pneumonia, unspecified organism] Onset: [...] of digestive organs] Episodic Residual codes; unclassified (7 sources) Chronic pain 01-31-2016 Episodic Residual codes; unclassified (2 sources) Localized edema; Translations: [Localized edema] Episodic Residual codes; unclassified (4 sources) Insomnia; Translations: [Insomnia, unspecified] 08-22-2023 Episodic Residual codes; unclassified (2 sources) Insomnia, unspecified; Translations: [Insomnia, unspecified] 12-12-2023 Episodic Respiratory failure; insufficiency; arrest (adult) (1 source) Acute respiratory failure; Translations: [Acute respiratory failure with hypoxia] Onset: 4 Episodic Septicemia (except in labor) (1 source) Sepsis; Translations: [Sepsis, unspecified organism] Onset: 4 Episodic Skin and subcutaneous tissue infections (8 sources) Cellulitis of buttock; Translations: [Cellulitis of buttock] 12-19-2023 Episodic Spondylosis; intervertebral disc disorders; other back problems (20 sources) Degeneration of cervical intervertebral disc; Translations: [Other cervical disc degeneration, unspecified cervical region] Chronic Spondylosis; intervertebral disc disorders; other back problems (20 sources) Low back pain; Translations: [Low back pain] Onset: 2 Episodic Thyroid disorders (15 sources) Hypothyroidism, unspecified; Translations: [Hypothyroidism] Onset: 2 01-31-2016 Chronic Unclassified (4 sources) CHRN KIDNEY DISEASE STG 3 UNSP; Translations: [CHRN KIDNEY DISEASE STG 3 UNSP] Onset: 2 Urinary tract infections (12 sources) Urinary tract infection, site not specified; Translations: [Urinary tract infectious disease] Onset: 2 Resolved: 2 Episodic Past or Other Problems Problem Classification Problem Date Documented Da te Episodic/Chronic Chronic kidney disease (12 sources) Chronic kidney [...] Test Name Value Interpretation Reference Range Facility Office Visiton 05-28-2024 Follow-up visit [id number] Nadia Patterson 1945 F Date Provider Department Center 05/28/2024 271-NORMAN, JOSH CARD [facility] No family history on file Level of Service:29943 SD OFFICE/OUTPATIENT ESTABLISHED LOW MDM 20 MIN Normal [facility] C Sputumon 04-07-2024 Bacteria identified Respiratory culture Nom (Sput) Microbiology PROCEDURE: Sputum Culture [R1] SOURCE: Sputum BODY SITE: COLLECTED DATE/TIME: 04/05/2024 00:52 EDT RECEIVED DATE/TIME: 04/05/2024 01:48 EDT START DATE/TIME: 04/05/2024 01:48 EDT FREE TEXT SOURCE: Tika CHRISTENSEN DO, DO, Ronobir R FINAL REPORTS Final Report [] Verified Date/Time: 04/07/2024 10:51 EDT Scant growth of Normal upper respiratory kaity isolated STAINS Gram Stain Report [] Verified Date/Time: 04/05/2024 02:48 EDT 2+ epithelial cells Occasional White Blood Cells Occasional Gram Positive Cocci Performing Locations R1: This test was performed at: [facility], [address] [place] [address], [id number] , [place], Normal [facility] Comment on above: Performed By: #### 2 [id number] #### [facility] [address] [place] [address] BMPon 04-06-2024 Anion gap [Moles/Vol] 12 mmol/L Normal 6-16 [facility] Comment on above: Performed By: #### 2 [id number] #### [facility] [address] [place] [address] Calcium [Mass/Vol] 8.7 mg/dL Low 8.9-11.1 [facility] Comment on above: Performed By: #### 2 [id number] #### [facility] [address] [place] [address] Chloride [Moles/Vol] 106 mmol/L Normal 101-111 [facility] Comment on above: Performed By: #### 2 [id number] #### [facility] [address] [place] [address] CO2 [Moles/Vol] 25 mmol/L Normal 21-31 [facility] Comment on above: Performed By: #### 2 [id number] #### [facility] [address] [place] [address] Creatinine [Mass/Vol] 1.4 mg/dL High 0.5-1.3 [facility] Comment on above: Performed By: #### 2 [id number] #### [facility] [address] [place] [address] Glucose [Mass/Vol] 138 mg/dL Normal 55-199 [facility] Comment on above: Performed By: #### 2 [id number] #### [facility] [address] [place] [address] Potassium [Moles/Vol] 4.5 mmol/L Normal 3.5-5.3 [facility] Comment on above: Performed By: #### 2 [id number] #### [facility] [address] [place] [address] Sodium [Moles/Vol] 138 mmol/L Normal 135-145 [facility] Comment on above: Performed By: #### 2 [id number] #### [facility] [address] [place] [address] Urea nitrogen [Mass/Vol] 16 mg/dL Normal 5-21 [facility] Comment on above: Performed By: #### 2 [id number] #### [facility] [address] [place] [address] Urea nitrogen/Creatinine [Mass ratio] 11 No Units Normal 10-20 [facility] Comment on above: Performed By: #### 2 [id number] #### [facility] [address] [place] [address] C Urineon 04-06-2024 Bacteria identified Cx Nom (U) Microbiology PROCEDURE: Urine Culture [R1] SOURCE: U CleanCatch BODY SITE: COLLECTED DATE/TIME: 04/04/2024 13:08 EDT RECEIVED DATE/TIME: 04/04/2024 15:11 EDT START DATE/TIME: 04/04/2024 15:11 EDT FREE TEXT SOURCE: Terry Delvalle DO, DO, Kaylinn A FINAL REPORTS Final Report [] Verified Date/Time: 04/06/2024 09:22 EDT 200 cfu/ml Mixed skin contaminants Performing Locations R1: This test was performed at: [facility], [address] [place] [address], [id number] , , Normal [facility] Comment on above: Performed By: #### 2 [id number] #### [facility] [address] [place] [address] CHEMISTRYOrdered By: Yane ROP User on 04-06-2024 Glucose [Mass/Vol] 137 mg/dL High 55 - 99 mg/dL [facility] POC Subsection Comment on above: Result Comment: Michelle erickson RN/ POC Device SN [id number] 1 Invalid Interpretation Code [facility] POC Subsection POC User ID [id number] 1 Invalid Interpretation Code [facility] POC Subsection POC Username MARIELA LI Invalid Interpretation Code [facility] POC Subsection Glucose [Mass/Vol] 236 mg/dL High 55 - 99 mg/dL [facility] POC Subsection Comment on above: Result Comment: Michelle dre RN/ POC Device SN [id number] 1 Invalid Interpretation Code [facility] POC Subsection POC User ID [id number] 1 Invalid Interpretation Code [facility] POC Subsection POC Username HENRY PEPPER Invalid Interpretation Code [facility] POC Subsection Glucose [Mass/Vol] 123 mg/dL High 55 - 99 mg/dL [facility] POC Subsection Comment on above: Result Comment: Michelle dre RN/ POC Device SN [id number] 1 Invalid Interpretation Code [facility] POC Subsection POC User ID [id number] 1 Invalid Interpretation Code [facility] POC Subsection POC Username HENRY PEPPER Invalid Interpretation Code [facility] POC Subsection CHEMISTRYOrdered By: SYSTEM SYSTEM on 04-06-2024 Anion gap [Moles/Vol] 12 mmol/L Normal 6 - 16 mEq/L [facility] Calcium [Mass/Vol] 8.7 mg/dL Low 8.9 - 11. 1 mg/dL [facility] Chloride [Moles/Vol] 106 mmol/L Normal 101 - 1 11 mmol/L [facility] CO2 [Moles/Vol] 25 mmol/L Normal 21 - 31 mmol/L [facility] Creatinine [Mass/Vol] 1.4 mg/dL High 0.5 - 1.3 mg/dL [facility] eGFR 38 mL/min/1.73 m2 Low >=59mL/min / 1.73 m2 [facility] Glucose [Mass/Vol] 138 mg/dL Normal 55 - 199 mg/dL [facility] Potassium [Moles/Vol] 4.5 mmol/L Normal 3.5 - 5.3 mmol/L [facility] Procalcitonin 11.39 ng/mL High 0.00 - 0.50 ng/mL [facility] Comment on above: Interpretive Data: < 0.5 ng/mL Low risk of severe sepsis and/or shock >2.0 ng/mL High risk of severe sepsis and/or shock Concentrations under 0.5 ng/mL do not exclude local infections or systemic infections in their initial stages (e.g.. under six hours from onset of illness). PCT concentrations between 0.5 and 2.0 ng/mL should be interpreted with consideration of the patient's history. In this range, it is recommended to retest PCT within 6 to 24 hours. Sodium [Moles/Vol] 138 mmol/L Normal 135 - 145 mmol/L [facility] Urea nitrogen [Mass/Vol] 16 mg/dL Normal 5 - 21 mg/dL [facility] Urea nitrogen/Creatinine [Mass ratio] 11 mg/mg Normal 10 - 20 [facility] Capillary Glucose POCon 11-0 Glucose [Mass/Vol] 137 mg/dL High 55-99 [facility] Comment on above: Result Comment: Michelle PACHECO Performed By: #### 2 [id number] #### [facility] [address] [place] [address] Glucose [Mass/Vol] 236 mg/dL High 55-99 [facility] Comment on above: Result Comment: Michelle PACHECO Performed By: #### 2 [id number] #### [facility] [address] [place] [address] Glucose [Mass/Vol] 123 mg/dL High 55-99 [facility] Comment on above: Result Comment: Michelle PACHECO Performed By: #### 2 [id number] #### [facility] [address] [place] [address] HEMATOLOGYOrdered By: SYSTEM SYSTEM on 04-06-2024 Hematocrit (Bld) [Volume fraction] 32.0 % Low 34.0 - 46.0 % Rem[facility] Heme Hemoglobin (Bld) [Mass/Vol] 10.8 g/dL Low 12.0 - 16.0 gm/dL [facility] Heme Hct & Hgbon 04-06-2024 Hematocrit (Bld) [Volume fraction] 32.0 % Low 34.0-46.0 [facility] Comment on above: Performed By: #### 1 [id number] #### [facility] [address] [place] [address] Hemoglobin (Bld) [Mass/Vol] 10.8 g/dL Low 12.0-16.0 [facility] Comment on above: Performed By: #### 1 [id number] #### [facility] [address] [place] [address] Inpatient Clinical Summaryon 04-06-2024 Inpatient Clinical Summary Inpatient Clinical Summary [address] [address] Clinical Summary Person Information: Name: NADIA PATTERSON Age: 78 Years : 1945 Sex: Female PCP: HARPAL HAYES MD Marital Status: Phone: [phone] Race: White Ethnicity: Non- or Language: Mozambican Visit Id: Visit Reason: Respiratory problem; Cough; Shortness of breath; fever Speciality: Acuity: Enc Type: Inpatient Med Service: Medical Arrival: 04/04/2024 00:25:34 Discharge: Dispo Type: Admitted as IP to this Hosp Address: [address] [place] [id number] Provider Notes: Diagnosis: 1:Acute respiratory failure with hypoxia; 2:Sepsis; 3:Pneumonia; 4:Pyelonephritis, acute; 5:Elevated troponin I level; 6:Acute kidney injury superimposed on stage 3b chronic kidney disease; 7:Anemia; 8:Hypokalemia; 9:Generalized weakness; 10:Dementia; 11:HTN (hypertension); 12:Hyperlipemia, mixed; 13:DM2 (diabetes mellitus, type 2); 14:Hypothyroid; 15:On deep vein thrombosis (DVT) prophylaxis; 16:Morbid obesity Problems Active HTN (hypertension) CKD stage 3b, GFR 30-44 ml/min VRE (vancomycin resistant enterococcus) culture positive (12/16/2022) Left wrist pain Hypothyroid Hyperlipemia, mixed Weakness generalized UTI (urinary tract infection) Diabetes mellitus with polyneuropathy Vitamin D deficiency Dementia Cerebrovascular small vessel disease Recurrent falls Fibromyalgia Smoking Status: Never Smoker Functional Status: Sensory Deficits: History of Falls: Mobility Assistance Prior to Admission: ADLs: Minimal assistance Current Level of Assistance for Self-Care/Mobility: Cognitive Status: Oriented x 3 Allergies Stadol Measurements: Height: 157.4 cm Weight: 91.8 kg Blood Pressure: 156 mmHg / 86 mmHg BMI: 36 kg/m2 Procedures No Procedures Documented Immunizations No Immunizations Documented This Visit Final Med List: acetaminophen (acetaminophen 325 mg Tab) 2 Tablets By Mouth every 6 hours as needed Pain. not to exceed 4000 mg/day. acetaminophen-hydroc odone (Hendley 325 mg-5 mg oral tablet) 1 Tablets By Mouth 2 times a day as needed as needed for pain. albuterol (Albuterol (Eqv-Ventolin HFA) 90 mcg/inh inhalation aerosol) 1 Inhalation Inhalation every 2 hours. Refills: 0. amoxicillin-clavulan ate (Augmentin 875 mg-125 mg Tab) 1 Tablets By Mouth every 12 hours for 5 Days. Refills: 0. aspirin (aspirin 81 mg Oral EC Tab) 1 Tablets By Mouth every day. atorvastatin (atorvastatin 10 mg Tab) 1 Tablets By Mouth at bedtime. benzonatate (Tessalon 100 mg Cap) 1 Capsules By Mouth 3 times a day as needed Cough for 5 Days. Refills: 0. cetirizine (cetirizine 10 mg Tab) 1 Tablets By Mouth every day as needed allergies. cyanocobalamin (cyanocobalamin 1000 mcg Tab) 1 Tablets By Mouth every day. Refills: 0. docusate (Colace 100 mg Cap) 1 Capsules By Mouth 2 times a day as needed for constipation. ferrous sulfate (ferrous sulfate 325 mg Tab) 1 Tablets By Mouth every day. Refills: 0. folic acid (folic acid 1 mg Tab) 1 Tablets By Mouth every day. Refills: 0. furosemide (furosemide 40 mg Tab) 1 Tablets By Mouth every day. guaifenesin (Mucinex 600 mg Tab-ER) 2 Tablets By Mouth every 12 hours for 5 Days. Refills: 0. levothyroxine (levothyroxine 50 mcg (0.05 mg) Tab) 1 Tablets By Mouth every day. magnesium oxide (magnesium oxide 400 mg oral capsule) 1 Capsules By Mouth every day. metformin (metformin 500 mg oral tablet) 1 Tablets By Mouth 2 times a day. mirabegron (Myrbetriq 50 mg oral tablet, extended release) TAKE 1 TABLET BY MOUTH EVERY MORNING. nitroglycerin (nitroglycerin 0.4 mg sublingual Tab) 1 Tablets Sublingual every 5 minutes as needed for chest pain. nystatin topical (nystatin Top 100,000 units/g Pwdr) 1 Application Topical 2 times a day. oxybutynin (oxybutynin 5 mg ER Tab) 1 Tablets By Mouth every day. pantoprazole (Protonix 40 mg Tab-DR) 1 Tablets By Mouth every day. Refills: 0. polyethylene glycol 3350 (polyethylene glycol 3350 17 gram packet) 17 Gram By Mouth every day as needed Constipation. potassium chloride (Potassium Chloride (Eqv-K-Tab) 10 mEq oral tablet, extended release) 1 Tablets By Mouth 2 times a day. pregabalin (Lyrica) 100 Milligram By Mouth 2 times a day. ropinirole (ropinirole 1 mg Tab) 2 Tablets By Mouth at bedtime. trazodone 100 Milligram By Mouth at bedtime. Care Team Members: Attending Physician: Tika CHRISTENSEN DO Consulting Physician: FRITZ, XXXX; Delphine BRIGGS, Briseida Referring Physician: Follow up: With: Address: When: [address] [place] [address] Business (1) 05/07/2024 2:00 PM With: Address: When: Decker Arialanna [address] [place] [address] [address] [place] [id number] [phone] Business (1) Within 5 to 7 days Comments: Doctor's office is (more content not included)... Normal [facility] Inpatient Clinical Summary Inpatient Clinical Summary [address] [address] Clinical Summary Person Information: Name: NADIA PATTERSON Age: 78 Years : 1945 Sex: Female PCP: HARPAL HAYES MD Marital Status: Phone: [phone] Race: White Ethnicity: Non- or Language: Mozambican Visit Id: Visit Reason: Respiratory problem; Cough; Shortness of breath; fever Speciality: Acuity: Enc Type: Inpatient Med Service: Medical Arrival: 04/04/2024 00:25:34 Discharge: Dispo Type: Admitted as IP to this Hosp Address: [address] [place] [phone] Provider Notes: Diagnosis: 1:Acute respiratory failure with hypoxia; 2:Sepsis; 3:Pneumonia; 4:Pyelonephritis, acute; 5:Elevated troponin I level; 6:Acute kidney injury superimposed on stage 3b chronic kidney disease; 7:Anemia; 8:Hypokalemia; 9:Generalized weakness; 10:Dementia; 11:HTN (hypertension); 12:Hyperlipemia, mixed; 13:DM2 (diabetes mellitus, type 2); 14:Hypothyroid; 15:On deep vein thrombosis (DVT) prophylaxis; 16:Morbid obesity Problems Active HTN (hypertension) CKD stage 3b, GFR 30-44 ml/min VRE (vancomycin resistant enterococcus) culture positive (12/16/2022) Left wrist pain Hypothyroid Hyperlipemia, mixed Weakness generalized UTI (urinary tract infection) Diabetes mellitus with polyneuropathy Vitamin D deficiency Dementia Cerebrovascular small vessel disease Recurrent falls Fibromyalgia Smoking Status: Never Smoker Functional Status: Sensory Deficits: History of Falls: Mobility Assistance Prior to Admission: ADLs: Minimal assistance Current Level of Assistance for Self-Care/Mobility: Cognitive Status: Oriented x 3 Allergies Stadol Measurements: Height: 157.4 cm Weight: 91.8 kg Blood Pressure: 156 mmHg / 86 mmHg BMI: 36 kg/m2 Procedures No Procedures Documented Immunizations No Immunizations Documented This Visit Final Med List: acetaminophen (acetaminophen 325 mg Tab) 2 Tablets By Mouth every 6 hours as needed Pain. not to exceed 4000 mg/day. acetaminophen-hydroc odone (Hendley 325 mg-5 mg oral tablet) 1 Tablets By Mouth 2 times a day as needed as needed for pain. albuterol (Albuterol (Eqv-Ventolin HFA) 90 mcg/inh inhalation aerosol) 1 Inhalation Inhalation every 2 hours. Refills: 0. amoxicillin-clavulan ate (Augmentin 875 mg-125 mg Tab) 1 Tablets By Mouth every 12 hours for 5 Days. Refills: 0. aspirin (aspirin 81 mg Oral EC Tab) 1 Tablets By Mouth every day. atorvastatin (atorvastatin 10 mg Tab) 1 Tablets By Mouth at bedtime. benzonatate (Tessalon 100 mg Cap) 1 Capsules By Mouth 3 times a day as needed Cough for 5 Days. Refills: 0. cetirizine (cetirizine 10 mg Tab) 1 Tablets By Mouth every day as needed allergies. cyanocobalamin (cyanocobalamin 1000 mcg Tab) 1 Tablets By Mouth every day. Refills: 0. docusate (Colace 100 mg Cap) 1 Capsules By Mouth 2 times a day as needed for constipation. ferrous sulfate (ferrous sulfate 325 mg Tab) 1 Tablets By Mouth every day. Refills: 0. folic acid (folic acid 1 mg Tab) 1 Tablets By Mouth every day. Refills: 0. furosemide (furosemide 40 mg Tab) 1 Tablets By Mouth every day. guaifenesin (Mucinex 600 mg Tab-ER) 2 Tablets By Mouth every 12 hours for 5 Days. Refills: 0. levothyroxine (levothyroxine 50 mcg (0.05 mg) Tab) 1 Tablets By Mouth every day. magnesium oxide (magnesium oxide 400 mg oral capsule) 1 Capsules By Mouth every day. metformin (metformin 500 mg oral tablet) 1 Tablets By Mouth 2 times a day. mirabegron (Myrbetriq 50 mg oral tablet, extended release) TAKE 1 TABLET BY MOUTH EVERY MORNING. nitroglycerin (nitroglycerin 0.4 mg sublingual Tab) 1 Tablets Sublingual every 5 minutes as needed for chest pain. nystatin topical (nystatin Top 100,000 units/g Pwdr) 1 Application Topical 2 times a day. oxybutynin (oxybutynin 5 mg ER Tab) 1 Tablets By Mouth every day. pantoprazole (Protonix 40 mg Tab-DR) 1 Tablets By Mouth every day. Refills: 0. polyethylene glycol 3350 (polyethylene glycol 3350 17 gram packet) 17 Gram By Mouth every day as needed Constipation. potassium chloride (Potassium Chloride (Eqv-K-Tab) 10 mEq oral tablet, extended release) 1 Tablets By Mouth 2 times a day. pregabalin (Lyrica) 100 Milligram By Mouth 2 times a day. ropinirole (ropinirole 1 mg Tab) 2 Tablets By Mouth at bedtime. trazodone 100 Milligram By Mouth at bedtime. Care Team Members: Attending Physician: Tika CHRISTENSEN DO Consulting Physician: FRITZ, XXXX; Briseida Akers MD Referring Physician: Follow up: With: Address: When[facility] [address], [address] [phone] Business (1) Within 5 to 7 days With: Address: When: Toby Gomez . [place] [phone] Business (1) Within 5 to 7 days With: Address: When: Follow u (more content not included)... Normal [facility] Inpatient Clinical Summary Inpatient Clinical Summary [address] [address] Clinical Summary Person Information: Name: NADIA PATTERSON Age: 78 Years : 1945 Sex: Female PCP: HARPAL HAYES MD Marital Status: Phone: [phone] Race: White Ethnicity: Non- or Language: Mozambican Visit Id: Visit Reason: Respiratory problem; Cough; Shortness of breath; fever Speciality: Acuity: Enc Type: Inpatient Med Service: Medical Arrival: 04/04/2024 00:25:34 Discharge: Dispo Type: Admitted as IP to this Hosp Address: [address] [place] [phone] Provider Notes: Diagnosis: 1:Acute respiratory failure with hypoxia; 2:Sepsis; 3:Pneumonia; 4:Pyelonephritis, acute; 5:Elevated troponin I level; 6:Acute kidney injury superimposed on stage 3b chronic kidney disease; 7:Anemia; 8:Hypokalemia; 9:Generalized weakness; 10:Dementia; 11:HTN (hypertension); 12:Hyperlipemia, mixed; 13:DM2 (diabetes mellitus, type 2); 14:Hypothyroid; 15:On deep vein thrombosis (DVT) prophylaxis Problems Active HTN (hypertension) CKD stage 3b, GFR 30-44 ml/min VRE (vancomycin resistant enterococcus) culture positive (12/16/2022) Left wrist pain Hypothyroid Hyperlipemia, mixed Weakness generalized UTI (urinary tract infection) Diabetes mellitus with polyneuropathy Vitamin D deficiency Dementia Cerebrovascular small vessel disease Recurrent falls Fibromyalgia Smoking Status: Never Smoker Functional Status: Sensory Deficits: History of Falls: Mobility Assistance Prior to Admission: ADLs: Minimal assistance Current Level of Assistance for Self-Care/Mobility: Cognitive Status: Oriented x 3 Allergies Stadol Measurements: Height: 157.4 cm Weight: 91.8 kg Blood Pressure: 131 mmHg / 70 mmHg BMI: 36 kg/m2 Procedures No Procedures Documented Immunizations No Immunizations Documented This Visit Final Med List: acetaminophen (Tylenol Extra Strength 500 mg oral tablet) 2 Tablets By Mouth every 6 hours. acetaminophen-hydroc odone (Hendley 325 mg-5 mg oral tablet) 1 Tablets By Mouth 2 times a day as needed as needed for pain. aspirin (aspirin 81 mg Oral EC Tab) 1 Tablets By Mouth every day. atorvastatin (atorvastatin 10 mg Tab) 1 Tablets By Mouth at bedtime. azithromycin (azithromycin 250 mg Tab) 1 Tablets By Mouth every day. Refills: 0. carvedilol 3.125 Milligram By Mouth every day. carvedilol (carvedilol 6.25 mg Tab) 1 Tablets By Mouth 2 times a day. Hold for sbp 110 or less or HR 55 or less. cefuroxime (cefuroxime 500 mg oral tablet) 1 Tablets By Mouth 2 times a day. Refills: 0. cetirizine (cetirizine 10 mg Tab) 1 Tablets By Mouth every day as needed allergies. cholecalciferol (cholecalciferol 10,000 intl units oral capsule) 1 Capsules By Mouth Tuesday. docusate (Colace 100 mg Cap) 1 Capsules By Mouth 2 times a day as needed for constipation. ferrous sulfate (ferrous sulfate 325 mg Tab) 1 Tablets By Mouth Tuesday. furosemide (furosemide 40 mg Tab) 1 Tablets By Mouth every day. levothyroxine (levothyroxine 50 mcg (0.05 mg) Tab) 1 Tablets By Mouth every day. magnesium oxide (magnesium oxide 400 mg oral capsule) 1 Capsules By Mouth every day. metformin (metformin 500 mg oral tablet) 1 Tablets By Mouth 2 times a day. mirabegron (Myrbetriq 50 mg oral tablet, extended release) TAKE 1 TABLET BY MOUTH EVERY MORNING. mirabegron (Myrbetriq) 50 Milligram By Mouth every day. nitroglycerin (nitroglycerin 0.4 mg sublingual Tab) [...] By Mouth 2 times a day. pregabalin 150 Milligram By Mouth 2 times a day. pregabalin (Lyrica) 100 Milligram By Mouth 2 times a day. ropinirole 2 Milligram By Mouth every day. ropinirole (ropinirole 4 mg oral tablet) 1 Tablets By Mouth Once daily with supper. trazodone 100 Milligram By Mouth at bedtime. trazodone (traZODONE 150 mg Tab) 1 Tablets By Mouth once a day (at bedtime). Care Team Members: Attending Physician: Tika CHRISTENSEN DO Consulting Physician: FRITZ, XXXX; Briseida Akers MD Referring Physician: Follow up: With: Address: When: HARPAL HAYES [address] [place] [address] [facility] (1) 04/12/2024 11:30 AM With: Address: When: Patient is currenct with [facility]. Patient Education Information: [facility] Inpatient Patient Summaryon 04-06-2024 Inpatient Patient Summary Inpatient Patient Summary YESENIA NADIA M :1945 Visit Date:04/04/2024 Inpatient Discharge Instructions Your Care Team Admitting Physician - Tika CHRISTENSEN DO Consulting Physician - Briseida Akers MD, XXXX Reason for Your Visit Cough Your Diagnosis Acute respiratory failure with hypoxia Sepsis Pneumonia Pyelonephritis, acute Elevated troponin I level Acute kidney injury superimposed on stage 3b chronic kidney disease Anemia Hypokalemia Generalized weakness Dementia HTN (hypertension) Hyperlipemia, mixed DM2 (diabetes mellitus, type 2) Hypothyroid On deep vein thrombosis (DVT) prophylaxis Morbid obesity Cough Respiratory problem Shortness of breath Tests Performed CT Abdomen/Pelvis w/o Contrast CT Chest w/o Contrast Echo Transthoracic w/ Contrast XR Chest Single View This Is Your Medications List acetaminophen (acetaminophen 325 mg Tab) acetaminophen-hydroc odone (Hendley 325 mg-5 mg oral tablet) albuterol (Albuterol (Eqv-Ventolin HFA) 90 mcg/inh inhalation aerosol) amoxicillin-clavulan ate (Augmentin 875 mg-125 mg Tab) aspirin (aspirin 81 mg Oral EC Tab) atorvastatin (atorvastatin 10 mg Tab) benzonatate (Tessalon 100 mg Cap) cetirizine (cetirizine 10 mg Tab) cyanocobalamin (cyanocobalamin 1000 mcg Tab) docusate (Colace 100 mg Cap) ferrous sulfate (ferrous sulfate 325 mg Tab) folic acid (folic acid 1 mg Tab) furosemide (furosemide 40 mg Tab) guaifenesin (Mucinex 600 mg Tab-ER) levothyroxine (levothyroxine 50 mcg (0.05 mg) Tab) magnesium oxide (magnesium oxide 400 mg oral capsule) metformin (metformin 500 mg oral tablet) mirabegron (Myrbetriq 50 mg oral tablet, extended release) nitroglycerin (nitroglycerin 0.4 mg sublingual Tab) nystatin topical (nystatin Top 100,000 units/g Pwdr) pantoprazole (Protonix 40 mg Tab-DR) polyethylene glycol 3350 (polyethylene glycol 3350 17 gram packet) potassium chloride (Potassium Chloride (Eqv-K-Tab) 10 mEq oral tablet, extended release) pregabalin (Lyrica) ropinirole (ropinirole 1 mg Tab) trazodone [Image Removed: STOP]Stop taking these medications azithromycin (azithromycin 250 mg Tab) carvedilol carvedilol (carvedilol 6.25 mg Tab) cefuroxime (cefuroxime 500 mg oral tablet) cholecalciferol (cholecalciferol 10,000 intl units oral capsule) Procedure History Femur, Knee replacement, None. Discharge Vitals Temperature (Axillary) 36.4 ???C Heart Rate (Monitored) 70 Respiratory Rate 18 Blood Pressure 156/82 Weight 91.8 kg What to do next Instructions From Your Doctor Event Name Event Result Discharge Activity Ambulate as tolerated, Activity as tolerated Discharge Restrictions No driving Discharge Diet(s) Calorie Controlled- 2000 Calorie Diet, Fat Modified- Low cholesterol, Low Sodium- 2000 mg Pending Diagnostic Test Results Blood culture, Sputum culture, Other: Legionella antigen Discharge Instructions Follow up appts as writtenCall PCP office on Tuesday for sputum and blood culture results and to determine if any antibiotic change is necessary. New Follow Up Appointments after Discharge Follow Up with Toby Santiago When: 05/07/2024 02:00 PM EST Where: [place] [address]- Business (1) Follow Up with HARPAL HAYES When: 04/12/2024 11:30 AM EST Where: [address] [place] [address]- Business (1) Follow Up with Brianne Jane When: Within 5 to 7 days Comments: Doctor's office is closed for the day. Please call Tuesday to make hospital follow up appointment. Where: [address], [address] [phone] Business (1) Follow Up with Follow up with your primary cardiology team as soon as possible When: Follow Up with Patient is currenct with [facility]. When: Medications What How Much When Instructions Next Dose New albuterol (Albuterol (Eqv-Ventolin HFA) 90 mcg/ inh inhalation aerosol) 1 Inhalation Inhalation Every 2 hours Pickup at [place] [address] as needed New amoxicillin-clavulan ate (Augmentin 875 mg-125 mg Tab) 1 Tablets By Mouth Every 12 hours Duration: 5 Days Pickup at [place] [address] start New benzonatate (Tessalon 100 mg Cap) 1 Capsules By Mouth 3 times a day as needed for Cough Duration: 5 Days Pickup at [place] [address] start New cyanocobalamin (cyanocobalamin 1000 mcg Tab) 1 Tablets By Mouth Every day Pickup at [place] [address] 04/07 New folic acid (folic acid 1 mg Tab) 1 Tablets By Mouth Every day Pickup at [place] [address] 04/07 New guaifenesin (Mucinex 600 mg Tab-ER) 2 Tablets By Mouth Every 12 hours Duration: 5 Days Pickup at [place] [address] 04/07@9am New pantoprazole (Protonix 40 mg Tab-DR) 1 Tablets By Mouth Every day Pickup at [place] [address] 04/07 Changed acetaminophen (acetaminophen 325 mg Tab) 2 Tablets By Mouth Every 6 hours as needed for Laine (more content not included)... Normal [facility] Inpatient Patient Summary Inpatient Patient Summary NADIA PATTERSON :1945 Visit Date:04/04/2024 Inpatient Discharge Instructions Your Care Team Admitting Physician - Tika CHRISTENSEN DO Consulting Physician - Delphine BRIGGS, Briseida [facility], XXXX Reason for Your Visit Cough Your Diagnosis Acute respiratory failure with hypoxia Sepsis Pneumonia Pyelonephritis, acute Elevated troponin I level Acute kidney injury superimposed on stage 3b chronic kidney disease Anemia Hypokalemia Generalized weakness Dementia HTN (hypertension) Hyperlipemia, mixed DM2 (diabetes mellitus, type 2) Hypothyroid On deep vein thrombosis (DVT) prophylaxis Morbid obesity Cough Respiratory problem Shortness of breath Tests Performed CT Abdomen/Pelvis w/o Contrast CT Chest w/o Contrast Echo Transthoracic w/ Contrast XR Chest Single View This Is Your Medications List acetaminophen (acetaminophen 325 mg Tab) acetaminophen-hydroc odone (Hendley 325 mg-5 mg oral tablet) albuterol (Albuterol (Eqv-Ventolin HFA) 90 mcg/inh inhalation aerosol) amoxicillin-clavulan ate (Augmentin 875 mg-125 mg Tab) aspirin (aspirin 81 mg Oral EC Tab) atorvastatin (atorvastatin 10 mg Tab) benzonatate (Tessalon 100 mg Cap) cetirizine (cetirizine 10 mg Tab) cyanocobalamin (cyanocobalamin 1000 mcg Tab) docusate (Colace 100 mg Cap) ferrous sulfate (ferrous sulfate 325 mg Tab) folic acid (folic acid 1 mg Tab) furosemide (furosemide 40 mg Tab) guaifenesin (Mucinex 600 mg Tab-ER) levothyroxine (levothyroxine 50 mcg (0.05 mg) Tab) magnesium oxide (magnesium oxide 400 mg oral capsule) metformin (metformin 500 mg oral tablet) mirabegron (Myrbetriq 50 mg oral tablet, extended release) nitroglycerin (nitroglycerin 0.4 mg sublingual Tab) nystatin topical (nystatin Top 100,000 units/g Pwdr) oxybutynin (oxybutynin 5 mg ER Tab) pantoprazole (Protonix 40 mg Tab-DR) polyethylene glycol 3350 (polyethylene glycol 3350 17 gram packet) potassium chloride (Potassium Chloride (Eqv-K-Tab) 10 mEq oral tablet, extended release) pregabalin (Lyrica) ropinirole (ropinirole 1 mg Tab) trazodone [Image Removed: STOP]Stop taking these medications azithromycin (azithromycin 250 mg Tab) carvedilol carvedilol (carvedilol 6.25 mg Tab) cefuroxime (cefuroxime 500 mg oral tablet) cholecalciferol (cholecalciferol 10,000 intl units oral capsule) Procedure History Femur, Knee replacement, None. Discharge Vitals Temperature (Axillary) 36.4 ???C Heart Rate (Monitored) 67 Respiratory Rate 18 Blood Pressure 156/86 Weight 91.8 kg What to do next Instructions From Your Doctor Event Name Event Result Discharge Activity Ambulate as tolerated, Activity as tolerated Discharge Restrictions No driving Discharge Diet(s) Calorie Controlled- 2000 Calorie Diet, Fat Modified- Low cholesterol, Low Sodium- 2000 mg Pending Diagnostic Test Results Blood culture, Sputum culture, Other: Legionella antigen Discharge Instructions Follow up appts as writtenCall PCP office on Tuesday for sputum and blood culture results and to determine if any antibiotic change is necessary. New Follow Up Appointments after Discharge Follow Up with Toby Santiago When: 05/07/2024 02:00 PM EST Where: [place] [address]- Business (1) Follow Up with HARPAL HAYES When: 04/12/2024 11:30 AM EST Where: [address] [place] [phone] Business (1) Follow Up with Brianne Jane When: Within 5 to 7 days Comments: Doctor's office is closed for the day. Please call Tuesday to make hospital follow up appointment. Where: Sophie Merino, [facility] [address] [phone] Business (1) Follow Up with Follow up with your primary cardiology team as soon as possible When: Follow Up with Patient is currenct with [facility]. When: Medications What How Much When Instructions Next Dose New albuterol (Albuterol (Eqv-Ventolin HFA) 90 mcg/ inh inhalation aerosol) 1 Inhalation Inhalation Every 2 hours Pickup at [facility] 115 as needed New amoxicillin-clavulan ate (Augmentin 875 mg-125 mg Tab) 1 Tablets By Mouth Every 12 hours Duration: 5 Days Pickup at [facility] 115 start New benzonatate (Tessalon 100 mg Cap) 1 Capsules By Mouth 3 times a day as needed for Cough Duration: 5 Days Pickup at [facility] 1155 start New cyanocobalamin (cyanocobalamin 1000 mcg Tab) 1 Tablets By Mouth Every day Pickup at [place] [address] 04/07 New folic acid (folic acid 1 mg Tab) 1 Tablets By Mouth Every day Pickup at [facility] 04/07 New guaifenesin (Mucinex 600 mg Tab-ER) 2 Tablets By Mouth Every 12 hours Duration: 5 Days Pickup at [facility] 04/07@4am New oxybutynin (oxybutynin 5 mg ER Tab) 1 Tablets By Mouth Every day 04/07 New pantoprazole (Protonix 40 mg Tab-DR) 1 Tablets By Mouth Every day Pickup at [facility] (more content not included)... Normal [facility] Inpatient Patient Summary Inpatient Patient Summary [place] [id number] Patient Discharge Instructions PERSON INFORMATION Name: NADIA PATTERSON Date of : 1945 Current Date: 04/06/2024 16:05:51 PHYSICIANS Admitting Physician: Tika CHRISTENSEN DO Primary Care Physician: HARPAL HAYES MD PCP Comment: Discharge Diagnosis: 1:Acute respiratory failure with hypoxia; 2:Sepsis; 3:Pneumonia; 4:Pyelonephritis, acute; 5:Elevated troponin I level; 6:Acute kidney injury superimposed on stage 3b chronic kidney disease; 7:Anemia; 8:Hypokalemia; 9:Generalized weakness; 10:Dementia; 11:HTN (hypertension); 12:Hyperlipemia, mixed; 13:DM2 (diabetes mellitus, type 2); 14:Hypothyroid; 15:On deep vein thrombosis (DVT) prophylaxis; 16:Morbid obesity Condition at Discharge: Stable NADIA PATTERSON has [...] ROOM OR CALL 911 Home Treatment: Devices/Equipment: Nebulizer, Walker - front wheeled Special Services: Additional Instructions: Follow up appts as written Call PCP office on Tuesday for sputum and blood culture results and to determine if any antibiotic change is necessary. Primary Care Physician to provide the following pending test results: Blood culture, Sputum culture, Other: Legionella antigen Follow up: With: Address: When: Toby Santiago [address] [place] [address] Business (1) 05/07/2024 2:00 PM With: Address: When: Brianne Barrios [facility], [address], [address] [phone] Business (1) Within 5 to 7 days Comments: Doctor's office is closed for the day. Please call Tuesday to make hospital follow up appointment. With: Address: When: Follow up with your primary cardiology team as soon as possible With: Address: When: HARPAL HAYES [address] [place] [address] Business (1) 04/12/2024 11:30 AM With: Address: When: Patient is currenct with [facility]. In the event that this physician does [...] New Medications [facility], [address] [place], [place] [id number], [phone] albuterol (Albuterol (Eqv-Ventolin HFA) 90 mcg/inh inhalation aerosol) 1 Inhalation Inhalation every 2 hours. Refills: 0. Last Dose: Next Dose: amoxicillin-clavulan ate (Augmentin 875 mg-125 mg Tab) 1 Tablets By Mouth every 12 hours for 5 Days. Refills: 0. Last Dose: Next Dose: benzonatate (Tessalon 100 mg Cap) 1 Capsules By Mouth 3 times a day as needed Cough for 5 Days. Refills: 0. Last Dose: Next Dose: cyanocobalamin (cyanocobalamin 1000 mcg Tab) 1 Tablets By Mouth every day. Refills: 0. Last Dose: Next Dose: folic acid (folic acid 1 mg Tab) 1 Tablets By Mouth every day. Refills: 0. Last Dose: Next Dose: guaifenesin (Mucinex 600 mg Tab-ER) 2 Tablets By Mouth every 12 hours for 5 Days. Refills: 0. Last Dose: Next Dose: pantoprazole (Protonix 40 mg Tab-DR) 1 Tablets By Mouth every day. Refills: 0. Last Dose: Next Dose: Other Medications oxybutynin (oxybutynin 5 mg ER Tab) 1 Tablets By Mouth every day. Last Dose: Next Dose: Medications to Continue Taking That Have Changed [facility], [address] [facility] [address] [place], [place] [id number], [phone] START: ferrous sulfate (ferrous sulfate 325 mg Tab) 1 Tablets By Mouth every day. Refills: 0. Last Dose: Next Dose: STOP: ferrous sulfate (ferrous sulfate 325 mg Tab) 1 Tablets By Mouth Tuesday. Other Medications START: acetaminophen (acetaminophen 325 mg Tab) 2 Tablets By Mouth every 6 hours as needed Pain. (more content not included)... Normal [facility] Inpatient Patient Summary Inpatient Patient Summary [address] [address] Patient Discharge Instructions PERSON INFORMATION Name: FARHEEN PATTERSONLINDA Dong Date of : 1945 Current Date: 04/06/2024 15:30:04 PHYSICIANS Admitting Physician: Tika CHRISTENSEN DO Primary Care Physician: HARPAL HAYES MD Comment: Discharge Diagnosis: 1:Acute respiratory failure with hypoxia; 2:Sepsis; 3:Pneumonia; 4:Pyelonephritis, acute; 5:Elevated troponin I level; 6:Acute kidney injury superimposed on stage 3b chronic kidney disease; 7:Anemia; 8:Hypokalemia; 9:Generalized weakness; 10:Dementia; 11:HTN (hypertension); 12:Hyperlipemia, mixed; 13:DM2 (diabetes mellitus, type 2); 14:Hypothyroid; 15:On deep vein thrombosis (DVT) prophylaxis; 16:Morbid obesity Condition at Discharge: Stable NADIA PATTERSON has [...] ROOM OR CALL 911 Home Treatment: Devices/Equipment: Nebulizer, Walker - front wheeled Special Services: Additional Instructions: Follow up appts as written Call PCP office on Tuesday for sputum and blood culture results and to determine if any antibiotic change is necessary. Primary Care Physician to provide the following pending test results: Blood culture, Sputum culture, Other: Legionella antigen Follow up: With: Address: When: [facility], [address], [address] [phone] Business (1) Within 5 to 7 days With: Address: When[facility] [place] [address] Business (1) Within 5 to 7 days With: Address: When: Follow up with your primary cardiology team as soon as possible With: Address: When: HARPAL HAYES [address] [place], [place] [phone] Business (1) 04/12/2024 11:30 AM With: Address: When: Patient is currenct with [facility]. In the event that this physician does [...] New Medications [facility] [address], [address] [place], [place] [id number], [phone] albuterol (Albuterol (Eqv-Ventolin HFA) 90 mcg/inh inhalation aerosol) 1 Inhalation Inhalation every 2 hours. Refills: 0. Last Dose: Next Dose: amoxicillin-clavulan ate (Augmentin 875 mg-125 mg Tab) 1 Tablets By Mouth every 12 hours for 5 Days. Refills: 0. Last Dose: Next Dose: benzonatate (Tessalon 100 mg Cap) 1 Capsules By Mouth 3 times a day as needed Cough for 5 Days. Refills: 0. Last Dose: Next Dose: cyanocobalamin (cyanocobalamin 1000 mcg Tab) 1 Tablets By Mouth every day. Refills: 0. Last Dose: Next Dose: folic acid (folic acid 1 mg Tab) 1 Tablets By Mouth every day. Refills: 0. Last Dose: Next Dose: guaifenesin (Mucinex 600 mg Tab-ER) 2 Tablets By Mouth every 12 hours for 5 Days. Refills: 0. Last Dose: Next Dose: pantoprazole (Protonix 40 mg Tab-DR) 1 Tablets By Mouth every day. Refills: 0. Last Dose: Next Dose: Other Medications oxybutynin (oxybutynin 5 mg ER Tab) 1 Tablets By Mouth every day. Last Dose: Next Dose: Medications to Continue Taking That Have Changed [facility], [address] [facility] [place] [id number], [phone] START: ferrous sulfate (ferrous sulfate 325 mg Tab) 1 Tablets By Mouth every day. Refills: 0. Last Dose: Next Dose: STOP: ferrous sulfate (ferrous sulfate 325 mg Tab) 1 Tablets By Mouth Tuesday. Other Medications START: acetaminophen (acetaminophen 325 mg Tab) 2 Tablets By Mouth every 6 hours as needed Pain. not to exceed 4000 mg/day. Last Dose: Next Dose: STOP: acetaminophen (more content not included)... Normal [facility] Inpatient Patient Summary Inpatient Patient Summary [place] [id number] Patient Discharge Instructions PERSON INFORMATION Name: NADIA PATTERSON Date of : 1945 Current Date: 04/06/2024 15:00:47 PHYSICIANS Admitting Physician: Tika CHRISTENSEN DO Primary Care Physician: HARPAL HAYES MD PCP Comment: Discharge Diagnosis: 1:Acute respiratory failure with hypoxia; 2:Sepsis; 3:Pneumonia; 4:Pyelonephritis, acute; 5:Elevated troponin I level; 6:Acute kidney injury superimposed on stage 3b chronic kidney disease; 7:Anemia; 8:Hypokalemia; 9:Generalized weakness; 10:Dementia; 11:HTN (hypertension); 12:Hyperlipemia, mixed; 13:DM2 (diabetes mellitus, type 2); 14:Hypothyroid; 15:On deep vein thrombosis (DVT) prophylaxis Condition at Discharge: NADIA PATTERSON has been given the following list of follow-up instructions, prescriptions, and patient education materials: PATIENT FOLLOW-UP INFORMATION Diet: Discharge Activity: Discharge Restrictions: Wound Care Instructions: Remove Your Dressing In Days Call Your Doctor For: IF UNABLE TO CONTACT YOUR PHYSICIAN AND YOU FEEL IT IS AN EMERGENCY, GO TO THE NEAREST EMERGENCY ROOM OR CALL 911 Home Treatment: Devices/Equipment: Nebulizer, Walker - front wheeled Special Services: Additional Instructions: Primary Care Physician to provide the following pending test results: Follow up: With: Address: When: HARPAL HAYES [address] [place] [address] [facility] (1) 04/12/2024 11:30 AM With: Address: When: Patient is currenct with [facility]. In the event that this physician does not participate in your insurance network, please consult with your insurance company to find a nearby participating provider. Comment: IYESENIA EILEEN M, have received the attached patient education materials/instructio ns and have verbalized understanding: Patient Signature Date Clinican/Nurse Signature Date HERE ARE THE MEDICATION CHANGES THAT OCCURRED DURING YOUR HOSPITAL STAY Medications to Continue with No Changes Other Medications acetaminophen (Tylenol Extra Strength 500 mg oral tablet) 2 Tablets By Mouth every 6 hours. Last Dose: Next Dose: acetaminophen-hydroc odone (Hendley 325 mg-5 mg oral tablet) 1 Tablets By Mouth 2 times a day as needed as needed for pain. Last Dose: Next Dose: aspirin (aspirin 81 mg Oral EC Tab) 1 Tablets By Mouth every day. Last Dose: Next Dose: atorvastatin (atorvastatin 10 mg Tab) 1 Tablets By Mouth at bedtime. Last Dose: Next Dose: azithromycin (azithromycin 250 mg Tab) 1 Tablets By Mouth every day. Refills: 0. Last Dose: Next Dose: carvedilol 3.125 Milligram By Mouth every day. Last Dose: Next Dose: carvedilol (carvedilol 6.25 mg Tab) 1 Tablets By Mouth 2 times a day. Hold for sbp 110 or less or HR 55 or less. Last Dose: Next Dose: cefuroxime (cefuroxime 500 mg oral tablet) 1 Tablets By Mouth 2 times a day. Refills: 0. Last Dose: Next Dose: cetirizine (cetirizine 10 mg Tab) 1 Tablets By Mouth every day as needed allergies. Last Dose: Next Dose: cholecalciferol (cholecalciferol 10,000 intl units oral capsule) 1 Capsules By Mouth Tuesday. Last Dose: Next Dose: docusate (Colace 100 mg Cap) 1 Capsules By Mouth 2 times a day as needed for constipation. Last Dose: Next Dose: ferrous sulfate (ferrous sulfate 325 mg Tab) 1 Tablets By Mouth Tuesday. Last Dose: Next Dose: furosemide (furosemide 40 mg Tab) 1 Tablets By Mouth every day. Last Dose: Next Dose: levothyroxine (levothyroxine 50 mcg (0.05 mg) Tab) 1 Tablets By Mouth every day. Last Dose: Next Dose: magnesium oxide (magnesium oxide 400 mg oral capsule) 1 Capsules By Mouth every day. Last Dose: Next Dose: metformin (metformin 500 mg oral tablet) 1 Tablets By Mouth 2 times a day. Last Dose: Next Dose: mirabegron (Myrbetriq 50 mg oral tablet, extended release) TAKE 1 TABLET BY MOUTH EVERY MORNING. Last Dose: Next Dose: mirabegron (Myrbetriq) 50 Milligram By Mouth every day. Last Dose: Next Dose: n (more content not included)... Normal [facility] Interdisciplinary Note - [place] [employer] 04-06-2024 Interdisciplinary Note - Group Chief Operator Interdisciplinary Note - Group Chief Operator CRM to room 306 Patient is awake, alert and oriented. Patient verified PCP, DME and insurance. Patient is from home with her Spouse. [place] a ride at [place]. Patient is an inpatient. She completed IMM 04/04 and this gets reviewed. Patient is here for fever, PNA. 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 Per patient she has a walker at home. She is current with [facility]. She declined any needs for further DME or SNF stay. PT/OT recs SNF with expected improvement. Patient was weaned to RA. Patient continues to decline SNF stay. Patient was provided CRM contact, white board updated. CRM following CRM will get updates from [employer] at 10 AM Today therapy [facility] [facility] care Lilian called and was provided an update. Akua will be informed she is here and would like to meet with her I was updated that patient might DC home today now and f/u with GI as an OP Normal [facility] Comment on above: Result Comment: Elec tronically Signed By: Rosalinda Vogel\.br\Date and Time Signed: 04/06/24 13:33 EDT Interdisciplinary Note - Group Chief Operator Interdisciplinary Note - Group Chief Operator CRM to room 306 Patient is awake, alert and oriented. Patient verified PCP, DME and insurance. Patient is from home with her Spouse. [place]. Patient is an inpatient. She completed IMM 04/04 and this gets reviewed. Patient is here for fever, PNA. 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 Per patient she has a walker at home. She is current with [facility]. She declined any needs for further DME or SNF stay. PT/OT recs SNF with expected improvement. Patient was weaned to RA. Patient continues to decline SNF stay. Patient was provided CRM contact, white board updated. CRM following CRM will get updates from Akua GRAHAM at 10 AM Today therapy recs care [facility] Comment on above: Result Comment: Elec tronically Signed By: Rosalinda Vogel\.br\Date and Time Signed: 04/06/24 10:37 EDT Interdisciplinary Note - Group Chief Operator Interdisciplinary Note - Group Chief Operator CRM to room 306 Patient is awake, alert and oriented. Patient verified PCP, DME and insurance. Patient is from home with her Spouse. [place] ride [place]. Patient is an inpatient. She completed [facility] 04/04 and this gets reviewed. Patient is here for fever, PNA. 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 Per patient she has a walker at home. She is current with [facility]. She declined any needs for further DME or SNF stay. PT/OT recs SNF with expected improvement. Patient was weaned to RA. Patient continues to decline SNF stay. Patient was provided CRM contact, white board updated. CRM following CRM will get updates from Akua GRAHAM at 10 AM [facility] Comment on above: Result Comment: Elec tronically Signed By: Rosalinda Vogel\.br\Date and Time Signed: 04/06/24 09:12 EDT MICRO OTHER TESTSOrdered By: Angie Skinner on 04-06-2024 Occult blood panel (Stl) Positive *ABN* (04/06/24 4:27 AM) Invalid Interpretation Code Negative [facility] Man Sero MRSA Screenon 04-06-2024 MRSA DNA DIETER+probe Ql (Unsp spec) Microbiology PROCEDURE: MRSA Screen [R1] SOURCE: Nasal BODY SITE: COLLECTED DATE/TIME: 04/04/2024 12:21 EDT RECEIVED DATE/TIME: 04/04/2024 13:17 EDT START DATE/TIME: 04/04/2024 13:17 EDT FREE TEXT SOURCE: HARRY MARTEL, Akua MARTEL, Akua FINAL REPORTS Final Report [] Verified Date/Time: 04/06/2024 09:23 EDT MRSA Negative. Performing Locations R1: This test was performed at: [facility], [address] [place] [address], [id number] , [place], Normal [facility] Comment on above: Performed By: #### 1 [id number] #### [facility] [address] [place] [address] Procalcitoninon 04-06-2024 Procalcitonin 11.39 ng/mL High .00-.50 [facility] Comment on above: Result Comment: <0.5 ng/mL Low risk of severe sepsis and/or shock >2.0 ng/mL High risk of severe sepsis and/or shock Concentrations under 0.5 ng/mL do not exclude local infections or systemic infections in their initial stages (e.g.. under six hours from onset of illness). PCT concentrations between 0.5 and 2.0 ng/mL should be interpreted with consideration of the patient's history. In this range, it is recommended to retest PCT within 6 to 24 hours. Performed By: #### 2 [id number] #### [facility] [address] [place] [address] Stl Oclt Bldon 04-06-2024 Occult blood panel (Stl) Positive Abnormal Negative [facility] Comment on above: Performed By: #### 2 [id number] #### [facility] [address] [place] [address] 423[address] U Legi Agon 04-06-2024 L. pneumophila 1 Ag IA Ql (U) Negative Invalid Interpretation Code Negative [facility] Comment on above: Result Comment: Pres umptive negative for L. pneumophila serogroup 1 antigen in urine, suggesting no recent or current infection. Legionnaires' disease cannot be ruled out since other serogroups and species may also cause disease. Performed at: [address] [id number] MD Geovanny Chapman Performed By: #### 2 [id number] #### [facility] [address] [place] [address] eGFRon 04-06-2024 eGFR 38 mL/min/1.73 m2 Low >=59 [facility] Comment on above: Performed By: #### 1 [id number] #### [facility] [address] [place] [address] BMPon 04-05-2024 Anion gap [Moles/Vol] 10 mmol/L Normal 6-16 [facility] Comment on above: Performed By: #### 2 [id number] #### [facility] [address] [place] [address] Calcium [Mass/Vol] 8.4 mg/dL Low 8.9-11.1 [facility] Comment on above: Performed By: #### 2 [id number] #### [facility] [address] [place] [address] Chloride [Moles/Vol] 103 mmol/L Normal 101-111 [facility] Comment on above: Performed By: #### 2 [id number] #### [facility] [address] [place] [address] CO2 [Moles/Vol] 30 mmol/L Normal 21-31 [facility] Comment on above: Performed By: #### 2 [id number] #### [facility] [address] [place] [address] Creatinine [Mass/Vol] 1.6 mg/dL High 0.5-1.3 [facility] Comment on above: Performed By: #### 2 [id number] #### [facility] [address] [place] [address] Glucose [Mass/Vol] 133 mg/dL Normal 55-199 [facility] Comment on above: Performed By: #### 2 [id number] #### [facility] [address] [place] [address] Potassium [Moles/Vol] 3.5 mmol/L Normal 3.5-5.3 [facility] Comment on above: Performed By: #### 2 [id number] #### [facility] [address] [place] [address] Sodium [Moles/Vol] 139 mmol/L Normal 135-145 [facility] Comment on above: Performed By: #### 2 [id number] #### [facility] [address] [place] [address] Urea nitrogen [Mass/Vol] 21 mg/dL Normal 5-21 [facility] Comment on above: Performed By: #### 2 [id number] #### [facility] [address] [place] [address] Urea nitrogen/Creatinine [Mass ratio] 13 No Units Normal 10-20 [facility] Comment on above: Performed By: #### 2 [id number] #### [facility] [address] [place] [address] CBC w/ Auto Diffon 4 Basophils/100 WBC (Bld) 0.9 % Normal 0.0-2.0 [facility] Comment on above: Performed By: #### 2 [id number] #### [facility] [address] [place] [address] Basophils/Leukocytes Auto (Bld) [Pure # fraction] 0.1 E9/L Normal 0.0-0.2 [facility] Comment on above: Performed By: #### 2 [id number] #### [facility] [address] [place] [address] Eosinophils (Bld) [#/Vol] 0.3 E9/L Normal 0.0-0.5 [facility] Comment on above: Performed By: #### 2 [id number] #### [facility] [address] [place] [address] Eosinophils/100 WBC (Bld) 6.1 % Normal 0.0-8.0 [facility] Comment on above: Performed By: #### 2 [id number] #### [facility] [address] [place] [address] Erythrocyte distribution width (RBC) [Ratio] 14.7 % High 10.9-14.2 [facility] Comment on above: Performed By: #### 2 [id number] #### [facility] [address] [place] [address] Hematocrit (Bld) [Volume fraction] 28.2 % Low 34.0-46.0 [facility] Comment on above: Performed By: #### 2 [id number] #### [facility] [address] [place] [address] Hemoglobin (Bld) [Mass/Vol] 9.6 g/dL Low 12.0-16.0 [facility] Comment on above: Performed By: #### 2 [id number] #### [facility] [address] [place] [address] Lymphocytes (Bld) [#/Vol] 1.5 E9/L Normal 1.0-4.0 [facility] Comment on above: Performed By: #### 2 [id number] #### [facility] [address] [place] [address] Lymphocytes/100 WBC (Bld) 26.6 % Normal 14.0-50.0 [facility] Comment on above: Performed By: #### 2 [id number] #### [facility] [address] [place] [address] MCH (RBC) [Entitic mass] 31.1 pg Normal 27.0-34.0 [facility] Comment on above: Performed By: #### 2 [id number] #### [facility] [address] [place] [address] MCHC (RBC) [Mass/Vol] 34.2 g/dL Normal 31.4-36.0 [facility] Comment on above: Performed By: #### 2 [id number] #### [facility] [address] [place] [address] MCV (RBC) [Entitic vol] 91.1 fL Normal 80.0-100.[address] [facility] Comment on above: Performed By: #### 2 [id number] #### [facility] [address] [place] [address] Monocytes (Bld) [#/Vol] 0.5 E9/L Normal 0.2-1.[address] [facility] Comment on above: Performed By: #### 2 [id number] #### [facility] [address] [place] [address] Neutrophils (Bld) [#/Vol] 3.3 E9/L Normal 2.0-7.5 [facility] Comment on above: Performed By: #### 2 [id number] #### [facility] [address] [place] [address] Neutrophils/100 WBC (Bld) 58.3 % Normal 36.0-75.0 [facility] Comment on above: Performed By: #### 2 [id number] #### [facility] [address] [place] [address] Platelet 203.0 E9/L Normal 150.0-500.0 [facility] Comment on above: Performed By: #### 2 [id number] #### [facility] [address] [place] [address] Platelet mean volume (Bld) [Entitic vol] 7.5 fL Normal 6.4-10.8 [facility] Comment on above: Performed By: #### 2 [id number] #### [facility] [address] [place] [address] RBC (Bld) [#/Vol] 3.1 E12/L Low 4.3-5.9 [facility] Comment on above: Performed By: #### 2 [id number] #### [facility] [address] [place] [address] WBC corrected for nucl RBC Auto (Bld) [#/Vol] 5.7 E9/L Normal 4.0-11.0 [facility] Comment on above: Performed By: #### 2 [id number] #### [facility] [address] [place] [address] CHEMISTRYOrdered By: SYSTEM SYSTEM on 04-05-2024 Anion gap [Moles/Vol] 10 mmol/L Normal 6 - 16 mEq/L [facility] Calcium [Mass/Vol] 8.4 mg/dL Low 8.9 - 11. 1 mg/dL [facility] Chloride [Moles/Vol] 103 mmol/L Normal 101 - 1 11 mmol/L [facility] CO2 [Moles/Vol] 30 mmol/L Normal 21 - 31 mmol/L [facility] Creatinine [Mass/Vol] 1.6 mg/dL High 0.5 - 1.3 mg/dL [facility] eGFR 32 mL/min/1.73 m2 Low >=59mL/min / 1.73 m2 [facility] Glucose [Mass/Vol] 133 mg/dL Normal 55 - 199 mg/dL [facility] Magnesium [Mass/Vol] 1.6 mg/dL Normal 1.3 - 2 .4 mg/dL [facility] Potassium [Moles/Vol] 3.5 mmol/L Normal 3.5 - 5.3 mmol/L [facility] Procalcitonin 19.19 ng/mL High 0.00 - 0.50 ng/mL [facility] Comment on above: Interpretive Data: < 0.5 ng/mL Low risk of severe sepsis and/or shock >2.0 ng/mL High risk of severe sepsis and/or shock Concentrations under 0.5 ng/mL do not exclude local infections or systemic infections in their initial stages (e.g.. under six hours from onset of illness). PCT concentrations between 0.5 and 2.0 ng/mL should be interpreted with consideration of the patient's history. In this range, it is recommended to retest PCT within 6 to 24 hours. Sodium [Moles/Vol] 139 mmol/L Normal 135 - 145 mmol/L [facility] Urea nitrogen [Mass/Vol] 21 mg/dL Normal 5 - 21 mg/dL [facility] Urea nitrogen/Creatinine [Mass ratio] 13 mg/mg Normal 10 - 20 [facility] Capillary Glucose [facility] 03-08 Glucose [Mass/Vol] 218 mg/dL High 55-99 [facility] Comment on above: Result Comment: Michelle PACHECO Performed By: #### 2 [id number] #### [facility] [address] [place] [address] Glucose [Mass/Vol] 139 mg/dL High 55-99 [facility] Comment on above: Result Comment: Michelle PACHECO Performed By: #### 2 [id number] #### [facility] [address] [place] [address] Glucose [Mass/Vol] 198 mg/dL High 55-99 [facility] Comment on above: Result Comment: Michelle PACHECO Performed By: #### 2 [id number] #### [facility] [address] [place] [address] Glucose [Mass/Vol] 139 mg/dL High 55-99 [facility] Comment on above: Result Comment: Michelle PACHECO Performed By: #### 2 [id number] #### [facility] [address] [place] [address] HEMATOLOGYOrdered By: SYSTEM SYSTEM on 04-05-2024 Basophils/100 WBC (Bld) 0.9 % Normal 0.0 - 2.0 % [facility] Basophils/Leukocytes Auto (Bld) [Pure # fraction] 0.1 E9/L Normal 0.0 - 0.2 E9/L [facility] Eosinophils (Bld) [#/Vol] 0.3 E9/L Normal 0.0 - 0.5 E9/L [facility] Eosinophils/100 WBC (Bld) 6.1 % Normal 0.0 - 8.0 % [facility] Erythrocyte distribution width (RBC) [Ratio] 14.7 % High 10.9 - 14.2 % [facility] Hematocrit (Bld) [Volume fraction] 28.2 % Low 34.0 - 46.0 % [facility] Hemoglobin (Bld) [Mass/Vol] 9.6 g/dL Low 12.0 - 16.0 gm/dL [facility] Lymphocytes (Bld) [#/Vol] 1.5 E9/L Normal 1.0 - 4.0 E9/L [facility] Lymphocytes/100 WBC (Bld) 26.6 % Normal 14.0 - 50.0 % [facility] MCH (RBC) [Entitic mass] 31.1 pg Normal 27. 0 - 34.0 pg [facility] MCHC (RBC) [Mass/Vol] 34.2 g/dL Normal 31.4 - 36.0 gm/dL [facility] MCV (RBC) [Entitic vol] 91.1 fL Normal 80.0 - 100.0 fL [facility] Monocytes (Bld) [#/Vol] 0.5 E9/L Normal 0.2 - 1.0 E9/L [facility] Monocytes/100 WBC (Bld) 8.1 % Normal 4.0 - 14.0 % [facility] Neutrophils (Bld) [#/Vol] 3.3 E9/L Normal 2.0 - 7.5 E9/L [facility] Neutrophils/100 WBC (Bld) 58.3 % Normal 36.0 - 75.0 % [facility] Platelet 203.0 E9/L Normal 150.0 - 500.0 E9/L [facility] Platelet mean volume (Bld) [Entitic vol] 7.5 fL Normal 6.4 - 10.8 fL [facility] RBC (Bld) [#/Vol] 3.1 E12/L Low 4.3 - 5.9 E12/L [facility] WBC corrected for nucl RBC Auto (Bld) [#/Vol] 5.7 E9/L Normal 4.0 - 11.0 E9/L [facility] Interdisciplinary Note - [place] e Manageron 04-05-2024 Interdisciplinary Note - Group Chief Operator Interdisciplinary Note - Group Chief Operator CRM to room 306 Patient is awake, alert and oriented. Patient verified PCP, DME and insurance. Patient is from home with her Spouse. [place] ride [place]. Patient is an inpatient. She completed IMM 04/04. Patient is here for fever, PNA. Patient is assigned to Akua GRAHAM, see notes. Per patient she has a walker at home. She is current with [facility] care. She declined any needs for further DME or SNF stay. She is pending PT/OT. Patient was provided CRM contact, rickie board updated. CRM following CRM will get updates from Akua GRAHAM at 10 AM Patient is on [place] oxygen, she does not wear at home and would need desat or weaned before DC Normal [facility] Comment on above: Result Comment: Elec tronically Signed By: Rosalinda Vogel\.br\Date and Time Signed: 04/05/24 09:15 EDT Interdisciplinary Note - José n 04-05-2024 Interdisciplinary Note - OT Interdisciplinary Note - OT Ot [facility] six clicks score = SNF vs HH services. patient requires Min A w/ standing adls/transfers and mod vc for safety w/ transfer mechanics and OT cord safety. Inpatient OT services to follow daily as pt was modified Ind w/ basic adls/transfers/stand ing adls prior to illness. Normal [facility] Interdisciplinary Note - Soc ial Workeron 04-05-2024 Interdisciplinary Note - Intermediate Designer Interdisciplinary Note - Intermediate Designer This SW met with patient, her , and her daughter Irma today to assist patient with completing a POA. She named Irma as her primary agent, with her as the first alternate. She did not wish to complete a LW at this time. SW will remain available. Normal [facility] - Microbiology an d Antimicrobial susceptibilityOrdered By: Jasmin Desai on 04-05-2024 Bacteria identified Respiratory culture Nom (Sput) Scant growth of Normal upper respiratory kaity isolated [facility] Magnesiumon 04-05-2024 Magnesium [Mass/Vol] 1.6 mg/dL Normal 1.3-2.4 [facility] Comment on above: Performed By: #### 2 [id number] #### [facility] [address] [place] [address] No Panel InformationOrdered By: Jasmin Desai on 04-05-2024 GS 2+ epithelial cells Occasional White Blood Cells Occasional Gram Positive Cocci [facility] Procalcitoninon 04-05-2024 Procalcitonin 19.19 ng/mL High .00-.50 [facility] Comment on above: Result Comment: <0.5 ng/mL Low risk of severe sepsis and/or shock >2.0 ng/mL High risk of severe sepsis and/or shock Concentrations under 0.5 ng/mL do not exclude local infections or systemic infections in their initial stages (e.g.. under six hours from onset of illness). PCT concentrations between 0.5 and 2.0 ng/mL should be interpreted with consideration of the patient's history. In this range, it is recommended to retest PCT within 6 to 24 hours. Performed By: #### 2 [id number] #### [facility] [address] [place] [address] eGFRon 04-05-2024 eGFR 32 mL/min/1.73 m2 Low >=59 [facility] Comment on above: Performed By: #### 1 [id number] #### [facility] [address] [place] [address] BNPon 04-04-2024 Natriuretic peptide B (Bld) [Mass/Vol] 161 pg/mL High 5-80 [facility] Comment on above: Performed By: #### 1 [id number] #### [facility] [address] [place] [address] CBC w/ Auto Diffon RBC size Nom (Bld) NORMAL Invalid Interpretation Code [facility] Comment on above: Performed By: #### 2 [id number] #### [facility] [address] [place] [address] Basophils/100 WBC (Bld) 0.3 % Normal 0.0-2.0 [facility] Comment on above: Performed By: #### 2 [id number] #### [facility] [address] [place] [address] Basophils/Leukocytes Auto (Bld) [Pure # fraction] 0.0 E9/L Normal 0.0-0.2 [facility] Comment on above: Performed By: #### 2 [id number] #### [facility] [address] [place] [address] Eosinophils (Bld) [#/Vol] 0.1 E9/L Normal 0.0-0.5 [facility] Comment on above: Performed By: #### 2 [id number] #### [facility] [address] [place] [address] Eosinophils/100 WBC (Bld) 0.7 % Normal 0.0-8.0 [facility] Comment on above: Performed By: #### 2 [id number] #### [facility] [address] [place] [address] Erythrocyte distribution width (RBC) [Ratio] 14.9 % High 10.9-14.2 [facility] Comment on above: Performed By: #### 2 [id number] #### [facility] [address] [place] [address] Hematocrit (Bld) [Volume fraction] 34.7 % Normal 34.0-46.0 [facility] Comment on above: Performed By: #### 2 [id number] #### [facility] [address] [place] [address] Hemoglobin (Bld) [Mass/Vol] 11.8 g/dL Low 12.0-16.0 [facility] Comment on above: Performed By: #### 2 [id number] #### [facility] [address] [place] [address] Lymphocytes (Bld) [#/Vol] 0.4 E9/L Low 1.0-4.0 [facility] Comment on above: Performed By: #### 2 [id number] #### [facility] [address] [place] [address] Lymphocytes/100 WBC (Bld) 4.7 % Low 14.0-50.0 [facility] Comment on above: Performed By: #### 2 [id number] #### [facility] [address] [place] [address] MCH (RBC) [Entitic mass] 30.9 pg Normal 27.0-34.0 [facility] Comment on above: Performed By: #### 2 [id number] #### [facility] [address] [place] [address] MCHC (RBC) [Mass/Vol] 33.9 g/dL Normal 31.4-36.0 [facility] Comment on above: Performed By: #### 2 [id number] #### [facility] [address] [place] [address] MCV (RBC) [Entitic vol] 91.1 fL Normal 80.0-100.[address] [facility] Comment on above: Performed By: #### 2 [id number] #### [facility] [address] [place] [address] Monocytes (Bld) [#/Vol] 0.2 E9/L Normal 0.2-1.[address] [facility] Comment on above: Performed By: #### 2 [id number] #### [facility] [address] [place] [address] Neutrophils (Bld) [#/Vol] 7.5 E9/L Normal 2.0-7.5 [facility] Comment on above: Performed By: #### 2 [id number] #### [facility] [address] [place] [address] Neutrophils/100 WBC (Bld) 91.7 % High 36.0-75.0 [facility] Comment on above: Performed By: #### 2 [id number] #### [facility] [address] [place] [address] Platelet mean volume (Bld) [Entitic vol] 7.0 fL Normal 6.4-10.8 [facility] Comment on above: Performed By: #### 2 [id number] #### [facility] [address] [place] [address] Platelets (Bld) [#/Vol] 224.0 E9/L Normal 150.0-500.0 [facility] Comment on above: Performed By: #### 2 [id number] #### [facility] [address] [place] [address] RBC (Bld) [#/Vol] 3.8 E12/L Low 4.3-5.9 [facility] Comment on above: Performed By: #### 2 [id number] #### [facility] [address] [place] [address] WBC corrected for nucl RBC Auto (Bld) [#/Vol] 8.2 E9/L Normal 4.0-11.0 [facility] Comment on above: Performed By: #### 2 [id number] #### [facility] [address] [place] [address] CHEMISTRYOrdered By: SYSTEM SYSTEM on 04-04-2024 Troponin HS 24.50 pg/mL Normal 10.10 - 27.10 pg/mL [facility] Comment on above: Interpretive Data: T he 95% CI (Confidence Interval) PPV (Positive Predictive Value) for myocardial infarction in females is 38 pg/mL, in males 51 pg/mL. The results should be used in conjunction with clinical conditions of myocardial infarction. (Access High Sensitivity Troponin I Instructions For Use, [employer] January 2018) Procalcitonin 16.47 ng/mL High 0.00 - 0.50 ng/mL [facility] Comment on above: Interpretive Data: < 0.5 ng/mL Low risk of severe sepsis and/or shock >2.0 ng/mL High risk of severe sepsis and/or shock Concentrations under 0.5 ng/mL do not exclude local infections or systemic infections in their initial stages (e.g.. under six hours from onset of illness). PCT concentrations between 0.5 and 2.0 ng/mL should be interpreted with consideration of the patient's history. In this range, it is recommended to retest PCT within 6 to 24 hours. Lactic Acid Lvl 2.1 mmol/L Normal 0.5 - 2.2 mmol/L [facility] Troponin HS 67.80 pg/mL Invalid Interpretation Code 10.10 - 27.10 pg/mL [facility] Comment on above: Result Comment: Crit ical Result Verified by Previous Result Critical Result I_TnIHS:67.8 Called to and read back by: MADAI MAE at: 04/04/2024 05:34:11 by:BAB Interpretive Data: T he 95% CI (Confidence Interval) PPV (Positive Predictive Value) for myocardial infarction in females is 38 pg/mL, in males 51 pg/mL. The results should be used in conjunction with clinical conditions of myocardial infarction. ([employer] Guardian High Sensitivity Troponin I Instructions For Use, [employer] January 2018) Troponin HS 65.10 pg/mL Invalid Interpretation Code 10.10 - 27.10 pg/mL [facility] Comment on above: Result Comment: Crit ical Result Verified by Previous Result Critical Result I_TnIHS:65.1 Called to and read back by: MADAI MAE at: 04/04/2024 03:42 by:BAB Interpretive Data: T he 95% CI (Confidence Interval) PPV (Positive Predictive Value) for myocardial infarction in females is 38 pg/mL, in males 51 pg/mL. The results should be used in conjunction with clinical conditions of myocardial infarction. (Access High Sensitivity Troponin I Instructions For Use, [employer] January 2018) Albumin [Mass/Vol] 4.0 g/dL Normal 3.3 - 5.0 gm/dL Remisol Chem Albumin/Globulin [Mass ratio] 1.3 {ratio} Normal 1.1 - 2.2 [facility] ALP [Catalytic activity/Vol] 98 [iU]/d Normal 21 - 98 Int._Unit/L Remisol Chem ALT No additional P-5'-P [Catalytic activity/Vol] 9 [iU]/d Normal 6 - 46 Int._Unit/L [facility] Anion gap [Moles/Vol] 14 mmol/L Normal 6 - 16 mEq/L [facility] AST [Catalytic activity/Vol] 18 [iU]/d Normal 5 - 43 Int._Unit/L [facility] Bilirubin [Mass/Vol] 0.7 mg/dL Normal 0.0 - 1 .1 mg/dL [facility] Calcium [Mass/Vol] 9.3 mg/dL Normal 8.9 - 11. 1 mg/dL [facility] Chloride [Moles/Vol] 100 mmol/L Low 101 - 1 11 mmol/L [facility] CO2 [Moles/Vol] 28 mmol/L Normal 21 - 31 mmol/L [facility] Cobalamin (Vitamin B12) [Mass/Vol] 156 pg/mL Normal 50 - 1500 pg/mL [facility] Creatinine [Mass/Vol] 1.9 mg/dL High 0.5 - 1.3 mg/dL [facility] eGFR 26 mL/min/1.73 m2 Low >=59mL/min / 1.73 m2 [facility] Ferritin [Mass/Vol] 58 ng/mL Normal 11 - 307 ng/mL [facility] Folate [Mass/Vol] 6.3 ng/mL Low >=6.7ng/mL [facility] Globulin (S) [Mass/Vol] 3.1 g/dL Normal 1.4 - 4.0 gm/dL [facility] Glucose [Mass/Vol] 232 mg/dL High 55 - 199 mg/dL [facility] Iron [Mass/Vol] 19 ug/dL Low 35 - 153 mcg/dL [facility] Iron binding capacity [Mass/Vol] 323 ug/dL Normal 250 - 400 mcg/dL [facility] Lactic Acid Lvl 2.7 mmol/L High 0.5 - 2.2 mmol/L [facility] LDH 318 [iU]/d High 93 - 218 Int._Unit/L [facility] Potassium [Moles/Vol] 3.7 mmol/L Normal 3.5 - 5.3 mmol/L [facility] Protein [Mass/Vol] 7.1 g/dL Normal 6.0 - 7.8 gm/dL [facility] Sodium [Moles/Vol] 138 mmol/L Normal 135 - 145 mmol/L [facility] Transferrin [Mass/Vol] 231 mg/dL Normal 200 - 370 mg/dL [facility] TSH Qn 2.22 m[IU]/L Normal 0.34 - 5.60 mcIU/mL [facility] Urea nitrogen [Mass/Vol] 24 mg/dL High 5 - 21 mg/dL [facility] Urea nitrogen/Creatinine [Mass ratio] 13 mg/mg Normal 10 - Remisol Chem CHEMISTRYOrdered By: Cecelia Carrillo on 04-04-2024 Natriuretic peptide B (Bld) [Mass/Vol] 161 pg/mL High 5 - 80 pg/mL [facility] Erma [facility] Albumin [Mass/Vol] 4.0 g/dL Normal 3.3-5.0 [facility] Comment on above: Performed By: #### 2 [id number] #### [facility] [address] [place] [address] Albumin/Globulin (S) [Mass conc ratio] 1.3 Normal 1.1-2.2 [facility] Comment on above: Performed By: #### 2 [id number] #### [facility] [address] [place] [address] ALP [Catalytic activity/Vol] 98 Int._Unit/L Normal 21-98 [facility] Comment on above: Performed By: #### 2 [id number] #### [facility] [address] [place] [address] ALT No additional P-5'-P [Catalytic activity/Vol] 9 Int._Unit/L Normal 6-46 [facility] Comment on above: Performed By: #### 2 [id number] #### [facility] [address] [place] [address] Anion gap [Moles/Vol] 14 mmol/L Normal 6-16 [facility] Comment on above: Performed By: #### 2 [id number] #### [facility] [address] [place] [address] AST [Catalytic activity/Vol] 18 Int._Unit/L Normal 5-43 [facility] Comment on above: Performed By: #### 2 [id number] #### [facility] [address] [place] [address] Bilirubin [Mass/Vol] 0.7 mg/dL Normal 0.0-1.1 [facility] Comment on above: Performed By: #### 2 [id number] #### [facility] [address] [place] [address] Calcium [Mass/Vol] 9.3 mg/dL Normal 8.9-11.1 [facility] Comment on above: Performed By: #### 2 [id number] #### [facility] [address] [place] [address] Chloride [Moles/Vol] 100 mmol/L Low 101-111 [facility] Comment on above: Performed By: #### 2 [id number] #### [facility] [address] [place] [address] CO2 [Moles/Vol] 28 mmol/L Normal 21-31 [facility] Comment on above: Performed By: #### 2 [id number] #### [facility] [address] [place] [address] Creatinine [Mass/Vol] 1.9 mg/dL High 0.5-1.3 [facility] Comment on above: Performed By: #### 2 [id number] #### [facility] [address] [place] [address] Globulin (S) [Mass/Vol] 3.1 g/dL Normal 1.4-4.0 [facility] Comment on above: Performed By: #### 2 [id number] #### [facility] [address] [place] [address] Glucose [Mass/Vol] 232 mg/dL High 55-199 [facility] Comment on above: Performed By: #### 2 [id number] #### [facility] [address] [place] [address] Potassium [Moles/Vol] 3.7 mmol/L Normal 3.5-5.3 [facility] Comment on above: Performed By: #### 2 [id number] #### [facility] [address] [place] [address] Protein [Mass/Vol] 7.1 g/dL Normal 6.0-7.8 [facility] Comment on above: Performed By: #### 2 [id number] #### [facility] [address] [place] [address] Sodium [Moles/Vol] 138 mmol/L Normal 135-145 [facility] Comment on above: Performed By: #### 2 [id number] #### [facility] [address] [place] [address] Urea nitrogen [Mass/Vol] 24 mg/dL High 5-21 [facility] Comment on above: Performed By: #### 2 [id number] #### [facility] [address] [place] [address] Urea nitrogen/Creatinine [Mass ratio] 13 No Units Normal 10-20 [facility] Comment on above: Performed By: #### 2 [id number] #### [facility] [address] [place] [address] COAGULATIONOrdered By: Damion Grigsby on 04-04-2024 aPTT Coag (PPP) [Time] 36.3 s Normal 25.1 - 36.5 second(s) [facility] [employer] Comment on above: Interpretive Data: P teeer 15 days - 4 weeks 1 - [...] the same coagulation reagent and instrumentation as [facility]. Currently there are no coagulation studies available worldwide for children to 14 days, and no normal ranges. Heparin therapeutic range (represented by Anti-Factor Xa activity of 0.2 - 0.4 U/mL) corresponds to PTT of 56.6 - 109.0 sec. INR Coag (PPP) [Relative time] 1.09 {INR} Invalid Interpretation Code [facility] [employer] Comment on above: Interpretive Data: I NR results are specifically intended to assess patients stabilized on long-term Anticoagulation therapy suggested INR s Less Intensive Anticoagulation 2.0 3.0 Conventional Range 3.0 4.5 PT Coag (PPP) [Time] 12.2 s Normal 9.4 - 1 2.5 second(s) [facility] Comment on above: Interpretive Data: 1 5 days - 4 weeks 1 - 5 months 6 -11 months 1 5 years 6 10 years 11 -17 years Mean: 11.2 (9.5 12.6) Mean: 11.0 (9.7 12.8) Mean: 11.0 (9.8 13.0) Mean: 11.3 (9.9 13.4) Mean: 11.7 (10.0 14.6) Mean: 11.8 (10.0 - 14.1) Pediatric Reference ranges were obtained from a study by Jeff Gilbert et al. prepared from 1437 samples obtained at 7 different centers using the same coagulation reagent and instrumentation as [facility]. Currently there are no coagulation studies available worldwide for children to 14 days, and no normal ranges. CT Abdomen/Pelvis w/o Contra ston 04-04-2024 CT Abdomen/Pelvis w/o Contrast Exam Date/Time: 04/04/2024 11:39 EDT Reason for Exam: Nausea with vomiting Report Review CT chest, for report CT abdomen pelvis. All CT scans at this facility use dose modulation, iterative reconstruction, and/or weight based dosing when appropriate to reduce radiation dose to as low as reasonably achievable. Ordering Provider: Akua MCDONALD FINAL REPORT Dictated: 04/04/2024 12:16 pm Juan Hill MD Signed (Electronic Signature): 04/04/2024 12:16 pm Signed by: Juan Hill MD Transcribed by: SHALOM Technologist: MKK Technical Comments Rectal Contrast Given? No Oral contrast amount in ml's: 0 Normal [facility] CT Chest w/o Contraston 10-3 CT Chest w/o Contrast Exam Date/Time: 04/04/2024 11:39 EDT Reason for Exam: Cough Report IMPRESSION: SMALL BILATERAL DEPENDENT SUBSEGMENTAL CONSOLIDATION, POSTERIOR LUNG BASES. MULTIPLE BILATERAL KIDNEYS. CHOLELITHIASIS. SIGMOID DIVERTICULOSIS. REMOTE REPAIR SUPRAUMBILICAL VENTRAL WALL HERNIA. CT OF THE CHEST, ABDOMEN, AND PELVIS WITHOUT INTRAVENOUS CONTRAST MEDIUM. HISTORY: Cough . Nausea and vomiting. TECHNICAL FACTORS: CT imaging of the chest, abdomen, and pelvis, was obtained and formatted as 5 mm contiguous axial images from the thoracic inlet through the symphysis pubis. Sagittal and coronal reconstructions obtained during postprocessing. Intravenous contrast medium: None. Comparison: CT chest, abdomen, pelvis, 11/10/2022. CT OF THE WITH INTRAVENOUS CONTRAST MEDIUM. FINDINGS: Right lung: No nodules, masses, pleural effusion, pneumothorax. Dependent subsegmental consolidation, posterior lung base. Left lung: No nodules, masses, pleural effusion, pneumothorax. Dependent subsegmental consolidation, posterior lung base. Lymph nodes: No hilar, mediastinal, or axillary lymph node enlargement. Thoracic aorta: Normal in course and caliber. Cardiac: Size normal. No pericardial effusion. Coronary artery calcification identified. Musculoskeletal:No osteoblastic, and no osteolytic lesions. CT OF THE ABDOMEN AND PELVIS WITHOUT INTRAVENOUS CONTRAST MEDIUM. Report FINDINGS: Liver: Normal in size, shape, and attenuation. Bile Ducts: Normal in caliber. Gallbladder: Calculi within dependent contrast gallbladder. No wall thickening or pericholecystic fluid. Pancreas: Normal without masses, cysts, ductal dilatation or calcification. Spleen: Normal in size without masses. Punctate calcification spleen. No splenules. Kidneys: Small in size with craniocaudal dimensions, right and left kidneys, 6.2 cm, and 5.5 cm, respectively. No hydronephrosis, masses, or stones. Mild bilateral perinephric fat stranding. Adrenals: Normal. Small bowel: Normal in caliber. Appendix: Normal. Colon: Normal in caliber. Diverticular change, sigmoid colon. Peritoneum: No ascites, free air, or fluid collections. Vessels: Aorta normal in course and caliber. Lymph nodes: Retroperitoneal: No enlarged retroperitoneal lymph nodes. Mesenteric: No enlarged mesenteric lymph nodes. Pelvic: No enlarged pelvic lymph nodes. Ureters: Normal in course and caliber. No calcifications. Bladder: No wall thickening. Reproductive organs: No pelvic masses. Abdominal Wall: Fat-containing 2.2 cm periumbilical anterior abdominal wall defect. Remote midline supraumbilical repair ventral wall defect. No diastasis of rectus musculature. No edema or masses. Bones: No bone lesions. Views disc space narrowing L5-S1. Left femoral intramedullary yadiel. All CT scans at this facility use dose modulation, iterative reconstruction, and/or weight based dosing when appropriate to reduce radiation dose to as low as reasonably achievable. Report Ordering Provider: Akua MCDONALD FINAL REPORT Dictated: 04/04/2024 12:16 pm Juan Hill MD Signed (Electronic Signature): 04/04/2024 12:16 pm Signed by: Juan Hill MD Transcribed by: SHALOM Technologist: RUTH Normal [facility] Capillary Glucose POCon - Glucose [Mass/Vol] 158 mg/dL High 55-99 [facility] Comment on above: Result Comment: Michelle PACHECO Performed By: #### 2 [id number] #### [facility] [address] [place] [address] Glucose [Mass/Vol] 128 mg/dL High 55-99 [facility] Comment on above: Result Comment: Michelle PACHECO Performed By: #### 2 [id number] #### [facility] [address] [place] [address] Glucose [Mass/Vol] 100 mg/dL High 55-99 [facility] Comment on above: Result Comment: Michelle PACHECO Performed By: #### 2 [id number] #### [facility] [address] [place] [address] Glucose [Mass/Vol] 154 mg/dL High 55-99 [facility] Comment on above: Result Comment: Michelle PACHECO Performed By: #### 2 [id number] #### [facility] [address] [place] [address] Glucose [Mass/Vol] 230 mg/dL High 55-99 [facility] Comment on above: Result Comment: Michelle erickson RN/MD Performed By: #### 2 [id number] #### [facility] [address] [place] [address] ED Clinical Summaryon 2023 ED Clinical Summary ED Clinical Summary [address] [address] ED Clinical Summary Person Information Name: NADIA PATTERSON [facility] Age: 78 Years : 1945 Sex: Female Language: Mozambican PCP: HARPAL HAYES MD Marital Status: Phone: [phone] Visit Id: Visit Reason: Respiratory problem; Cough; Shortness of breath; fever Speciality: Acuity: 1 Enc Type: Inpatient Med Service: Medical Arrival: 04/04/2024 00:25:34 Discharge: LOS: 000 02:51 Checkin: 04/04/2024 00:25:34 Checkout: 04/04/2024 03:16:58 Dispo Type: Admitted as IP to this [facility] EVENTS: Event Name Event Status Request Date/Time Start Date/Time Complete Date/Time Arrive Complete 04/04/2024 00:25:34 04/04/2024 00:25:34 04/04/2024 00:25:34 Document Home Meds Request 04/04/2024 00:25:34 Triage Complete 04/04/2024 00:25:34 04/04/2024 00:33:56 04/04/2024 00:33:56 EKG Complete 04/04/2024 00:28:46 04/04/2024 00:32:01 Dr Exam Complete 04/04/2024 00:30:04 04/04/2024 00:30:04 04/04/2024 00:30:04 Registration Complete 04/04/2024 00:30:04 04/04/2024 00:30:24 04/04/2024 00:33:42 Bed Assign Complete 04/04/2024 00:30:24 04/04/2024 00:30:24 04/04/2024 00:30:24 RN Exam Complete 04/04/2024 00:30:24 04/04/2024 01:16:53 04/04/2024 01:16:53 Reg Complete Request 04/04/2024 00:33:42 Reg Bed Request Complete 04/04/2024 00:33:42 04/04/2024 00:33:42 04/04/2024 00:33:42 Isolation Screening Request 04/04/2024 00:33:57 Possible SIRS Request 04/04/2024 00:35:56 Meds Admin Complete 04/04/2024 00:37:20 04/04/2024 01:06:40 Pending Labs Request 04/04/2024 00:37:20 Lab Request 04/04/2024 00:37:20 X-Ray Complete 04/04/2024 00:37:20 04/04/2024 01:22:14 04/04/2024 01:35:55 RT Request 04/04/2024 00:37:20 Meds Admin Complete 04/04/2024 00:41:34 04/04/2024 01:06:40 Pending Labs Complete 04/04/2024 00:42:35 04/04/2024 01:27:09 Swab Complete 04/04/2024 00:42:35 04/04/2024 01:27:09 Lab Complete 04/04/2024 00:42:35 04/04/2024 01:27:09 Pending Labs Complete 04/04/2024 01:09:30 04/04/2024 01:09:30 04/04/2024 01:35:49 Lab Complete 04/04/2024 01:09:30 04/04/2024 01:09:30 04/04/2024 01:35:49 Fall Risk Request 04/04/2024 01:16:54 Pending Labs Request 04/04/2024 01:18:54 Lab Request 04/04/2024 01:18:54 Pending Labs Cancel 04/04/2024 01:34:17 04/04/2024 03:05:57 Lab Cancel 04/04/2024 01:34:17 04/04/2024 03:05:57 Wet Read Request 04/04/2024 01:35:55 Meds Admin Complete 04/04/2024 01:41:34 04/04/2024 01:57:21 Pending Labs Request 04/04/2024 02:12:47 Admit Request 04/04/2024 02:13:28 Patient Care Request 04/04/2024 02:13:28 Patient Care Request 04/04/2024 02:13:30 Patient Care Request 04/04/2024 02:13:30 Patient Care Request 04/04/2024 02:13:30 Patient Care Request 04/04/2024 02:13:30 Medicare Form Complete 04/04/2024 02:13:31 04/04/2024 02:15:16 Patient Care Request 04/04/2024 02:13:31 Patient Care Request 04/04/2024 02:13:32 Patient Care Request 04/04/2024 02:43:52 Meds Admin Request 04/04/2024 02:43:52 RT Request 04/04/2024 02:43:52 Pending Labs Request 04/04/2024 02:43:52 Lab Request 04/04/2024 02:43:52 RT Tx/ABG Request 04/04/2024 02:43:54 RT Tx/ABG Request 04/04/2024 02:43:54 Meds Admin Request 04/04/2024 02:46:18 Pending Labs Cancel 04/04/2024 02:49:47 04/04/2024 03:04:56 Pending Labs Request 04/04/2024 02:59:44 Lab Request 04/04/2024 02:59:44 Pending Labs Inlab 04/04/2024 03:05:34 04/04/2024 03:05:34 ADDRESS: [address] [place] [id number] [facility] DOC NOTES: MEDICAL INFORMATION: Prescriptions Given: Medications to Continue with No Changes Other Medications acetaminophen (Tylenol Extra Strength 500 mg oral tablet) 2 Tablets By Mouth every 6 hours. atorvastatin (atorvastatin 10 mg Tab) 1 Tablets By Mouth at bedtime. azithromycin (azithromycin 250 mg Tab) 1 Tablets By Mouth every day. Refills: 0. carvedilol (carvedilol 6.25 mg Tab) 1 Tablets By Mouth 2 times a day. Hold for sbp 110 or less or HR 55 or less. cefuroxime (cefuroxime 500 mg oral tablet) 1 Tablets By Mouth 2 times a day. Refills: 0. cetirizine (cetirizine 10 mg Tab) 1 Tablets By Mouth every day as needed allergies. cholecalciferol (cholecalciferol 10,000 intl units oral capsule) 1 Capsules By Mouth Tuesday. docusate (Colace 100 mg Cap) 1 Capsules By Mouth 2 times a day as needed for constipation. ferrous sulfate (ferrous sulfate 325 mg Tab) 1 Tablets By Mouth Tuesday. furosemide (furosemide 40 mg Tab) 1 Tablets By Mouth every day. levothyroxine (levothyroxine 50 mcg (0.05 mg) Tab) 1 Tablets By Mouth every day. magnesium oxide (magnesium oxide 400 mg oral capsule) 1 Capsules By Mouth every day. metformin (metformin 500 mg oral tablet) 1 Tablets By Mouth 2 times a day. mirabegron (Myrbetriq 50 mg oral tablet, extended release) TAKE 1 TABLET BY MOUTH EVERY MORNING. nitroglycerin (nitroglycerin 0.4 mg sublingu (more content not included)... Normal [facility] ED Note-Physicianon 04-04-20 ED Note-Physician ED Note-Physician Basic Information Time Seen: Adelia MARTIN Terry 04/04/2024 00:30 Chief Complaint states was started on zpak for bronchitis. cough and sob. pt was 86% on room air when squad arrived. harsh cough noted History of Present Illness Patient is a 78-year-old female past medical history of diabetes, dementia, fibromyalgia, hyperlipidemia, hypothyroidism presenting to the ED for evaluation of shortness of breath, and cough. Patient was seen recently was started on azithromycin for bronchitis approximately 3 days ago reportedly has been taking this however has not had any improvement of her symptoms. History is limited from the patient due to her dementia. EMS was called due to patient shortness of breath was noted to be 86% on room air was placed on supplemental oxygen with improvement of her oxygen. Review of Systems Limited due to patient's dementia Physical Exam Vitals & Measurements T: 39.4 ???C(Oral) HR: 114(Peripheral) RR: 24 BP: 126/95 SpO2: 95% HT: 157.4 cm WT: 86.1 kg BMI: 34.75 General: Well developed, non toxic appearing, no acute distress HEENT: Head atraumatic, Mucosa moist, hearing grossly normal Neck: No JVD, tracheal deviation Cardiac: Tachycardiac, regular rhythm no murmurs, or gallops, 2+ radial pulses Respiratory: Rhonchi noted on auscultation bilaterally normal respiratory effort Abdomen: Soft non tender, no rebound or guarding, no peritoneal signs Extremities: No edema noted in the LE B/L, no tenderness to palpation Neurologic: Alert and oriented, speech clear Skin: No rashes or lesions Psych: Appropriate mood and behavior Medical Decision Making MEDICAL DECISION MAKING Number and Complexity of Problems Differential Diagnosis: [] [facility] Data External documents reviewed: [] My EKG interpretation: [] My CT interpretation: [] My X-ray interpretation: [] My Ultrasound interpretation: [] Decision rules/scores evaluated: [] Discussed with: [] Treatment and Disposition ED Course: Patient is a 78-year-old female presenting to the ED for evaluation of cough, shortness of breath. Patient is febrile, tachycardic in addition to hypoxic on initial arrival. Due to her complaints septic workup is obtained patient is given Tylenol in addition to small IV fluid boluses patient does have a history of CHF. Flu and COVID swabs are obtained. Patient's laboratory evaluation reveals no leukocytosis, glucose mildly elevated at 232, creatinine of 1.9 baseline appears to be around 1.5, troponin mildly elevated at 43 likely secondary to demand ischemia with tachycardia in addition to fever. Lactic acid is mildly elevated at 2.7. Flu and COVID swab are negative, chest x-ray focal infiltrates. Discussed findings with patient and daughter they are agreeable to admission. Patient did have a dose of azithromycin dinner therefore is not given additional dose. She is given a dose of Rocephin in the ED. Discussed the case with the hospitalist accept the patient for admission. Shared decision making: [] Code status: [] Assessment/Plan 1. CKD stage 3b, GFR 30-44 ml/min (N18.32: Chronic kidney disease, stage 3b) Acute respiratory failure with hypoxia (J96.01: Acute respiratory failure with hypoxia) ADIA (acute kidney injury) (N17.9: Acute kidney failure, unspecified) Elevated troponin I level (R79.89: Other specified abnormal findings of blood chemistry) Pneumonia (J18.9: Pneumonia, unspecified organism) Orders: acetaminophen + Generic Diluent 100 mL, 1,000 mg = 100 mL, Soln-IV, IV Piggyback, Once, Stop date 04/04/24 0:41:00 EDT, STAT, Start date 04/04/24 0:41:00 EDT, 400 mL/hr, Infuse over 15 minute(s) ceftriaxone + Sodium Chloride 0.9% intravenous solution 50 mL, 1,000 mg = 1 EA, IV Piggyback, Once, Stop date 04/04/24 1:41:00 EDT, STAT, Start date 04/04/24 1:41:00 EDT, 100 mL/hr, Infuse over 30 minute(s), 04/04/24 1:41:00 EDT Sodium Chloride 0.9% intravenous solution, 500 mL, Soln-IV, IV, Once, Stop date 04/04/24 0:37:00 EDT, STAT, Start date 04/04/24 0:37:00 EDT, 500 mL/hr, Infuse over 1, hour(s) Blood Culture Charcoal Blood Culture Charcoal CBC w/ Auto Diff Comprehensive Metabolic Panel Continuous Pulse Oximetry ECG 12 Lead Adult ED Cardiac Monitoring eGFR Influenza A&B Ag Lactic Acid Lactic Acid Lactic Acid Oxygen Therapy PT & PTT Rapid COVID Antigen ([facility]) Sputum Culture Troponin Troponin 1 Hr. Troponin 3 Hr. UA with Cult Rflx XR Chest Single View Medications Administered Given GenDil 100 mL + [id number] [F] 1000 mg, IV Piggyback NS 500 ml Bolus, 500 mL, IV Sodium Chloride 0.9% intravenous solution 50 mL + ceftriaxone additive 1000 mg, IV Piggyback Disposition Plan Patient Discharge Condition Fair Discharge Disposition Admitted Discharge Prescription List Prescriptions No active prescription medications Follow-up No qualifying data available Problem List/Past Medical History Ongoing Cerebrovascular s (more content not included)... Normal [facility] Comment on above: Result Comment: Elec tronically Signed By: Terry Delvalle DO\.olaf\Date and Time Signed: 04/04/24 02:18 EDT ED Patient Education Noteon 04-04-2024 ED Patient Education Note ED Patient Education Note Normal [facility] ED Patient Summaryon 024 ED Patient Summary ED Patient Summary [place] [id number] Patient Discharge Instructions Person Information Name: NADIA PATTERSON Age: 78 Years Arrival Date: 04/04/2024 00:25:34 Discharge Diagnosis: 1:Pneumonia; 2:Sepsis; 3:Acute respiratory failure with hypoxia; 4:Elevated troponin I level; 5:ADIA (acute kidney injury); 6:CKD stage 3b, GFR 30-44 ml/min; 7:Hyperlipemia, mixed; 8:Dementia; 9:HTN (hypertension); 10:Hypothyroid; 11:DM2 (diabetes mellitus, type 2); 12:On deep vein thrombosis (DVT) prophylaxis Primary Care Physician: HARPAL HAYES MD Provider Information Primary Provider: Terry Delvalle DO [employer]ator:None The exam and treatment you received in the Emergency Department were for an urgent problem and are not intended as complete care. It is important that you follow up with a doctor, nurse practitioner, or physician???s coding assistant for ongoing care. If your symptoms [...] opioids can be used to help relieve shanygxn-rw-[id number] pain and are often prescribed following a [...] as well, even when taken as directed: ??? Tolerance???meaning you might need to take more of the medication for the same pain relief ??? Physical dependence???meaning you have symptoms of withdrawal when a medication is stopped ??? Increased sensitivity to pain ??? Constipation ??? Nausea, vomiting, and dry mouth ??? Sleepiness and dizziness ??? Confusion ??? Depression ??? Low levels of testosterone that can result in lower sex drive, energy, and strength ??? Itching and sweating RISKS ARE GREATER WITH: ??? History of drug misuse, substance use disorder, or overdose ??? Mental health conditions (such as depression or anxiety) ??? Sleep apnea ??? Older age (65 years and older) ??? Avoid alcohol while taking prescription opioids. Also, unless specifically advised by your health care provider, medications to avoid include: ??? Benzodiazepines (such as Xanax or Valium) ??? Muscle relaxants (such as Soma or Flexeril) ??? Hypnotics (such as Ambien or Lunesta) ??? Other prescription opioids KNOW YOUR OPTIONS Talk to your health care provider about ways to manage your pain that don???t involve prescription opioids. Some of these options may actually work better and have fewer risks and side effects. Options may include: ??? Pain relievers such as acetaminophen, ibuprofen, and naproxen ??? Some medication that are also used for depression or seizures ??? Physical therapy and exercise ??? Cognitive behavioral therapy, a psychological, goal-directed approach, in which patients learn how to modify physical, behavioral, and emotional triggers of pain and stress. IF YOU ARE PRESCRIBED OPIOIDS FOR PAIN: ??? Never take opioids in greater amounts or more often than prescribed. ??? Follow up with your primary health care provider. o Work together to create a plan on how to manage your pain. o Talk about ways to help manage your pain that don???t involve prescription opioids. o Talk about any and all concerns and side effects. ??? Help prevent misuse and abuse o Never sell or share prescription opioids. o Never use another person???s prescription opioids. ??? Store prescription opioids in a secure place and out of reach of others (this may include visitors, children, friends, and family). ??? Safely dispose of unused prescription opioids: Find your community drug take-back program or your pharmacy mail-back program, or flush them down the toilet, following guidance from the Food and Drug Administration (www.fda.gov/Drugs/R esourcesForYou). ??? Visit www.cdc.gov/drugover dose to learn about the risks of opioids (more content not included)... Normal [facility] EMS Documentationon 04-04-20 EMS Documentation Report Please click on link to see report Normal [facility] Comment on above: Result Comment: Miss irwin Attachment - attachment exceeds size limitation [id number] Can be viewed in source system Extra Ronald 04-04-2024 WB Tube Collected Yes Invalid Interpretation Code [facility] Comment on above: Performed By: #### 1 [id number] #### [facility] [address] [place] [address] Ferritinon 04-04-2024 Ferritin [Mass/Vol] 58 ng/mL Normal 11-307 [facility] Comment on above: Performed By: #### 2 [id number] #### [facility] [address] [place] [address] Folateon 04-04-2024 Folate [Mass/Vol] 6.3 ng/mL Low >=6.7 [facility] Comment on above: Performed By: #### 2 [id number] #### [facility] [address] [place] [address] HEMATOLOGYOrdered By: SYSTEM SYSTEM on 04-04-2024 Basophils/100 WBC (Bld) 0.3 % Normal 0.0 - 2.0 % Remisol Heme Basophils/Leukocytes Auto (Bld) [Pure # fraction] 0.0 E9/L Normal 0.0 - 0.2 E9/L Remisol Heme Eosinophils (Bld) [#/Vol] 0.1 E9/L Normal 0.0 - 0.5 E9/L Remisol Heme Eosinophils/100 WBC (Bld) 0.7 % Normal 0.0 - 8.0 % Remisol Heme Erythrocyte distribution width (RBC) [Ratio] 14.9 % High 10.9 - 14.2 % Remisol Heme Hematocrit (Bld) [Volume fraction] 34.7 % Normal 34.0 - 46.0 % Remisol Heme Hemoglobin (Bld) [Mass/Vol] 11.8 g/dL Low 12.0 - 16.0 gm/dL Remisol Heme Lymphocytes (Bld) [#/Vol] 0.4 E9/L Low 1.0 - 4.0 E9/L Remisol Heme Lymphocytes/100 WBC (Bld) 4.7 % Low 14.0 - 50.0 % Remisol Heme MCH (RBC) [Entitic mass] 30.9 pg Normal 27. 0 - 34.0 pg Remisol Heme MCHC (RBC) [Mass/Vol] 33.9 g/dL Normal 31.4 - 36.0 gm/dL Remisol Heme MCV (RBC) [Entitic vol] 91.1 fL Normal 80.0 - 100.0 fL Remisol Heme Monocytes (Bld) [#/Vol] 0.2 E9/L Normal 0.2 - 1.0 E9/L Remisol Heme Monocytes/100 WBC (Bld) 2.6 % Low 4.0 - 14.0 % Remisol Heme Neutrophils (Bld) [#/Vol] 7.5 E9/L Normal 2.0 - 7.5 E9/L Rem[facility] Heme Neutrophils/100 WBC (Bld) 91.7 % High 36.0 - 75.0 % [facility] Heme Platelet mean volume (Bld) [Entitic vol] 7.0 fL Normal 6.4 - 10.8 fL [facility] Platelets (Bld) [#/Vol] 224.0 E9/L Normal 150. 0 - 500.0 E9/L Rem[facility] Heme RBC (Bld) [#/Vol] 3.8 E12/L Low 4.3 - 5.9 E12/L Rem[facility] Heme RBC size Nom (Bld) NORMAL *NA* (04/04/24 1:05 AM) Invalid Interpretation Code [facility] Reticulocytes/100 RBC (Bld) 1.5 % Normal 0.5 - 2.2 % Remisol Heme WBC corrected for nucl RBC Auto (Bld) [#/Vol] 8.2 E9/L Normal 4.0 - 11.0 E9/L [facility] Influenza A&B Agon 4 Influenzae A Ag Negative Normal Negative [facility] Comment on above: Performed By: #### 1 [id number] #### [facility] [address] [place] [address] Influenzae B Ag Negative Normal Negative [facility] Comment on above: Result Comment: Test sensitivity and specificity vary for age group, specimen type, antigen types, and prevalence of disease. Test results must be evaluated in conjunction with other clinical data available to the physician. Individuals who received nasally administered Influenza A vaccine may have positive test results up to 3 days after vaccination. Performed By: #### 1 [id number] #### [facility] [address] [place] [address] Interdisciplinary Note - [place] e Manageron 04-04-2024 Interdisciplinary Note - Group Chief Operator Interdisciplinary Note - Group Chief Operator CRM to room 306 Patient is awake, alert and oriented. Patient verified PCP, DME and insurance. Patient is from home with her Spouse. [place] ride [place]. Patient is an inpatient. She completed IMM 04/04. Patient is here for fever, PNA. 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 Per patient she has a walker at home. She is current with [facility]. She declined any needs for further DME or SNF stay. Patient was provided CRM contact, rickie board updated. CRM following CRM will get updates from [employer] at 10 AM Normal [facility] Comment on above: Result Comment: Elec tronically Signed By: Rosalinda Vogel\.br\Date and Time Signed: 04/04/24 10:24 EDT Ironon 04-04-2024 Iron [Mass/Vol] 19 microgram/dL Low 35-153 [facility] Comment on above: Performed By: #### 2 [id number] #### [facility] [address] [place] [address] LDHon 04-04-2024 LDH 318 Int._Unit/L High 93-218 [facility] Comment on above: Performed By: #### 2 [id number] #### [facility] [address] [place] [address] Laboratory - Microbiology an d Antimicrobial susceptibilityOrdered By: Jasmin Desai on 04-04-2024 Bacteria identified Cx Nom (U) 200 cfu/ml Mixed skin contaminants [facility] MRSA DNA DIETER+probe Ql (Unsp spec) MRSA Negative. [facility] Lactic Acidon 04-04-2024 Lactic Acid Lvl 2.1 mmol/L Normal 0.5-2.2 [facility] Comment on above: Performed By: #### 2 [id number] #### [facility] [address] [place] [address] Lactic Acid Lvl 2.7 mmol/L High 0.5-2.2 [facility] Comment on above: Performed By: #### 2 [id number] #### [facility] [address] [place] [address] MICRO OTHER TESTSOrdered By: Damion Grigsby on 04-04-2024 Influenzae A Ag Negative (04/04/24 1:00 AM) Normal Negative [facility]ero Influenzae B Ag Negative 2 (04/04/24 1:00 AM) Normal Negative [facility] Comment on above: Interpretive Data: [...] vaccination. Rapid COV Int NEG Ctl Pass (04/04/24 1:00 AM) Normal [facility] Man Sero Rapid COV Int POS Ctl Pass (04/04/24 1:00 AM) Normal [facility] SARS-CoV+SARS-CoV-2 (COVID-19) Ag IA.rapid Ql (Resp) Not Detected 18 (04/04/24 1:00 AM) Normal Not Detected [facility] Comment on above: Interpretive Data: T he tracx Veritor System for Rapid Detection of SARS-CoV-2 [...] the authorization is terminated or revoked sooner. No Panel InformationOrdered By: ANGPROCESSSERVER MICROBIOLOGY on 04-04-2024 Blood Culture Charcoal No growth at 2 da ys. Final to follow at 7 days. [facility] PT & PTTon 04-04-2024 aPTT Coag (PPP) [Time] 36.3 second(s) Normal 25.1-36.5 [facility] Comment on above: Result Comment: Para meter 15 days - 4 weeks 1 - 5 months 6 - 11 months 1 - 5 years 6 - 10 years 11 - 17 years PTT Mean: 35.4 (27.6-45.6) Mean: 33.5 (24.8-40.7) Mean: 32.4 (25.1-40.7) Mean: 31.6 (24.0-39.2) Mean: 31.6 (26.9-38.7) Mean: 31.0 (24.6-38.4) Pediatric Reference ranges were obtained from a study by gloria Soto. prepared from 1437 samples obtained at 7 different centers using the same coagulation reagent and instrumentation as [facility]. Currently there are no coagulation studies available worldwide for children to 14 days, and no normal ranges. Heparin therapeutic range (represented by Anti-Factor Xa activity of 0.2 - 0.4 U/mL) corresponds to PTT of 56.6 - 109.0 sec. Performed By: #### 1 [id number] #### [facility] [address] [place] [address] INR Coag (PPP) [Relative time] 1.09 {INR} Invalid Interpretation Code [facility] Comment on above: Result Comment: INR results are specifically intended to assess patients stabilized on long-term Anticoagulation therapy suggested INR???s ???Less Intensive Anticoagulation??? 2.0 ??? 3.0 Conventional Range 3.0 ??? 4.5 Performed By: #### 1 [id number] #### [facility] [address] [place] [address] PT Coag (PPP) [Time] 12.2 second(s) Normal 9.4-12.5 [facility] Comment on above: Result Comment: 15 d ays - 4 weeks 1 - 5 months 6 -11 months 1 ??? 5 years 6 ??? 10 years 11 -17 years Mean: 11.2 (9.5 ??? 12.6) Mean: 11.0 (9.7 ??? 12.8) Mean: 11.0 (9.8 ??? 13.0) Mean: 11.3 (9.9 ??? 13.4) Mean: 11.7 (10.0 ??? 14.6) Mean: 11.8 (10.0 - 14.1) Pediatric Reference ranges were obtained from a study by gloria Soto. prepared from 1437 samples obtained at 7 different centers using the same coagulation reagent and instrumentation as [facility]. Currently there are no coagulation studies available worldwide for children to 14 days, and no normal ranges. Performed By: #### 1 [id number] #### [facility] [address] [place] [address] Procalcitoninon 04-04-2024 Procalcitonin 16.47 ng/mL High .00-.50 [facility] Comment on above: Result Comment: <0.5 ng/mL Low risk of severe sepsis and/or shock >2.0 ng/mL High risk of severe sepsis and/or shock Concentrations under 0.5 ng/mL do not exclude local infections or systemic infections in their initial stages (e.g.. under six hours from onset of illness). PCT concentrations between 0.5 and 2.0 ng/mL should be interpreted with consideration of the patient's history. In this range, it is recommended to retest PCT within 6 to 24 hours. Performed By: #### 2 [id number] #### [facility] [address] [place] [address] Procalcitonin 6.29 ng/mL High .00-.50 [facility] Comment on above: Result Comment: <0.5 ng/mL Low risk of severe sepsis and/or shock >2.0 ng/mL High risk of severe sepsis and/or shock Concentrations under 0.5 ng/mL do not exclude local infections or systemic infections in their initial stages (e.g.. under six hours from onset of illness). PCT concentrations between 0.5 and 2.0 ng/mL should be interpreted with consideration of the patient's history. In this range, it is recommended to retest PCT within 6 to 24 hours. Performed By: #### 2 [id number] #### [facility] [address] [place] [address] Rapid COVID Antigen ([facility])on 04-04-2024 Rapid COV Int NEG Ctl Pass Normal [facility] Comment on above: Performed By: #### 2 [id number] #### [facility] [address] [place] [address] Rapid COV Int POS Ctl Pass Normal [facility] Comment on above: Performed By: #### 2 [id number] #### [facility] [address] [place] [address] SARS-CoV+SARS-CoV-2 (COVID-19) Ag IA.rapid Ql (Resp) Not detected Normal Not Detected [facility] Comment on above: Result Comment: The tracx Veritor??? System for Rapid Detection of SARS-CoV-2 is [...] be considered in the context of a patient???s recent exposures, history and the presence of [...] laboratories certified under the CLIA, 42 U.S.C. ???263a, that meet requirements to perform moderate, high, or waived complexity tests and at the Point of Care (POC), i.e., in patient care settings operating under a CLIA Certificate of Waiver, Certificate of Compliance, or Certificate of Accreditation. This test has been authorized only for the detection of proteins from SARS-CoV-2, not for any other viruses or pathogens; and, in the [facility], this test is only authorized for the duration of the declaration that circumstances exist justifying the authorization of emergency use of in vitro diagnostics for detection and/or diagnosis of the virus that causes COVID-19 under Section 564(b)(1) of the Act, 21 U.S.C. ??? 360bbb-3(b)(1), unless the authorization is terminated or revoked sooner. Performed By: #### 2 [id number] #### [facility] [address] [place] [address] Reference Laboratory Testing Ordered By: [facility] Domain[employer] on 04-04-2024 L. pneumophila 1 Ag IA Ql (U) Negative Invalid Interpretation Code Negative [facility] [employer] Comment on above: Result Comment: Pres umptive negative for L. pneumophila serogroup 1 antigen in urine, suggesting no recent or current infection. Legionnaires' disease cannot be ruled out since other serogroups and species may also cause disease. Performed at: [facility] [id number] MD Geovanny Chapman Respiratory Panel by PCRon Adenovirus DNA DIETER+non-probe Ql (Nph) Not detected Normal [facility] Comment on above: Result Comment: Test ing was performed using nucleic acid amplification including Influenza A, Influenza A H1, Influenza A H3, Influenza B, RSV A, RSV B, Adenovirus, Human Metapneumovirus, Parainfluenza 1,2,3, and 4, Rhinovirus, Bordetella parapertussis/bronchiseptica, Bordetella holmesii, and Bordetella pertussis. Performed By: #### 1 [id number] #### [facility] [address] [place] [address] B. parapertussis DNA DIETER+probe Ql (Upper resp) Not detected Normal Not Detected [facility] Comment on above: Performed By: #### 1 [id number] #### [facility] [address] [place] [address] B. pertussis DNA DIETER+probe Ql (Upper resp) Not detected Normal Not Detected [facility] Comment on above: Performed By: #### 1 [id number] #### [facility] [address] [place] [address] FLUAV H1 RNA DIETER+non-probe Ql (Nph) Not detected Normal [facility] Comment on above: Performed By: #### 1 [id number] #### [facility] [address] [place] [address] FLUAV H3 RNA DIETER+non-probe Ql (Nph) Not detected Normal [facility] Comment on above: Performed By: #### 1 [id number] #### [facility] [address] [place] [address] FLUAV RNA DIETER+non-probe Ql (Nph) Not detected Normal [facility] Comment on above: Performed By: #### 1 [id number] #### [facility] [address] [place] [address] FLUBV RNA DIETER+non-probe Ql (Nph) Not detected Normal [facility] Comment on above: Performed By: #### 1 [id number] #### [facility] [address] [place] [address] Human Metapneumovirus Not detected Normal [facility] Comment on above: Result Comment: This test result should be correlated with clinical presentations and medical history by a healthcare provider to determine its clinical significance. Performed By: #### 1 [id number] #### [facility] [address] [place] [address] Parainfluenza virus 1 RNA DIETER+non-probe Ql (Nph) Not detected Normal [facility] Comment on above: Performed By: #### 1 [id number] #### [facility] [address] [place] [address] Parainfluenza virus 2 RNA DIETER+non-probe Ql (Nph) Not detected Normal [facility] Comment on above: Performed By: #### 1 [id number] #### [facility] [address] [place] [address] Parainfluenza virus 3 RNA DIETER+non-probe Ql (Nph) Not detected Normal [facility] Comment on above: Performed By: #### 1 [id number] #### [facility] [address] [place] [address] Parainfluenza virus 4 RNA DIETER+non-probe Ql (Nph) Not detected Normal [facility] Comment on above: Performed By: #### 1 [id number] #### [facility] [address] [place] [address] Resp Panel Intrl QC [facility] Comment on above: Performed By: #### 1 [id number] #### [facility] [address] [place] [address] Rhinovirus+Enterovirus RNA DIETER+non-probe Ql (Nph) Not detected Normal [facility] Comment on above: Performed By: #### 1 [id number] #### [facility] [address] [place] [address] RSV RNA DIETER+non-probe Ql (Nph) Not detected Normal [facility] Comment on above: Performed By: #### 1 [id number] #### [facility] [address] [place] [address] Retic Counton 04-04-2024 Reticulocytes/100 RBC (Bld) 1.5 % Normal 0.5-2.2 [facility] Comment on above: Performed By: #### 2 [id number] #### [facility] [address] [place] [address] TIBC Calculatedon 04-04-2024 Iron binding capacity [Mass/Vol] 323 microgram/dL Normal 250-400 [facility] Comment on above: Performed By: #### 1 [id number] #### [facility] [address] [place] [address] Transferrin [Mass/Vol] 231 mg/dL Normal 200-370 [facility] Comment on above: Performed By: #### 1 [id number] #### [facility] [address] [place] [address] TSH With T4fr Reflexon 04-04 TSH Qn 2.22 m[IU]/L Normal 0.34-5.60 [facility] Comment on above: Performed By: #### 1 [id number] #### [facility] [address] [place] [address] Troponinon 04-04-2024 Troponin HS 43.00 pg/mL Abnormal .04-01. [facility] Comment on above: Result Comment: Crit ical Result Verified by Repeat Analysis Critical Result I_TnIHS:43.0 Called to and read back by: HECTOR MOBLEY at: 04/04/2024 02:00:47 by:ZARA The 95% CI (Confidence Interval) PPV (Positive Predictive Value) for myocardial infarction in females is 38 pg/mL, in males 51 pg/mL. The results should be used in conjunction with clinical conditions of myocardial infarction. (Access High Sensitivity Troponin I Instructions For Use, [employer]January 2018) Performed By: #### 2 [id number] #### [facility] [address] [place] [address] Troponin 0 Hr.on 04-04-2024 Troponin HS 24.50 pg/mL Normal 10.10-27.10 [facility] Comment on above: Result Comment: The 95% CI (Confidence Interval) PPV (Positive Predictive Value) for myocardial infarction in females is 38 pg/mL, in males 51 pg/mL. The results should be used in conjunction with clinical conditions of myocardial infarction. (Shutter Guardian High Sensitivity Troponin I Instructions For Use, [employer] January 2018) Performed By: #### 1 [id number] #### [facility] [address] [place] [address] Troponin 1 Hr.on 04-04-2024 Troponin HS 65.10 pg/mL Abnormal 10.10-27.10 [facility] Comment on above: Result Comment: Crit ical Result Verified by Previous Result Critical Result I_TnIHS:65.1 Called to and read back by: MADAI MAE at: 04/04/2024 03:42 by:BAB The 95% CI (Confidence Interval) PPV (Positive Predictive Value) for myocardial infarction in females is 38 pg/mL, in males 51 pg/mL. The results should be used in conjunction with clinical conditions of myocardial infarction. (Sh[employer] Guardian High Sensitivity Troponin I Instructions For Use, [employer] January 2018) Performed By: #### 1 [id number] #### [facility] [address] [place] [address] Troponin 3 Hr.on 04-04-2024 Troponin HS 67.80 pg/mL Abnormal 10.10-27.10 [facility] Comment on above: Result Comment: Crit ical Result Verified by Previous Result Critical Result I_TnIHS:67.8 Called to and read back by: MADAI MAE at: 04/04/2024 05:34:11 by:BAB The 95% CI (Confidence Interval) PPV (Positive Predictive Value) for myocardial infarction in females is 38 pg/mL, in males 51 pg/mL. The results should be used in conjunction with clinical conditions of myocardial infarction. (Access High Sensitivity Troponin I Instructions For Use, [employer], January 2018) Performed By: #### 1 [id number] #### [facility] [address] [place] [address] UA with Cult Rflxon 20 24 Bilirubin Ql (U) Negative Normal Negative [facility] Comment on above: Performed By: #### 4 [id number] #### [facility] [address] [place] [address] Clarity (U) Turbid Abnormal Clear [facility] Comment on above: Performed By: #### 4 [id number] #### [facility] [address] [place] [address] Color (U) Light-Yellow Normal Yellow [facility] Comment on above: Result Comment: Micr oscopic readings are only performed on those samples that meet specific criteria set forth by [facility]. Performed By: #### 4 [id number] #### [facility] [address] [place] [address] Epithelial cells.squamous Auto (Urine sed) [#/Area] 0-2 Invalid Interpretation Code [facility] Comment on above: Performed By: #### 4 [id number] #### [facility] [address] [place] [address] Glucose Ql (U) Negative Normal Negative [facility] Comment on above: Performed By: #### 4 [id number] #### [facility] [address] [place] [address] Hemoglobin Auto test strip (U) [Mass/Vol] Trace Abnormal Negative [facility] Comment on above: Performed By: #### 4 [id number] #### [facility] [address] [place] [address] Ketones Auto test strip Ql (U) Negative Normal Negative [facility] Comment on above: Performed By: #### 4 [id number] #### [facility] [address] [place] [address] Leukocyte esterase Auto test strip Ql (U) 500 Clint/uL Abnormal Negative [facility] Comment on above: Performed By: #### 4 [id number] #### [facility] [address] [place] [address] Mucus Auto Ql (U) Trace Normal Negative [facility] Comment on above: Performed By: #### 4 [id number] #### [facility] [address] [place] [address] Nitrite Auto test strip Ql (U) 1+ mg/dL Abnormal Negative [facility] Comment on above: Performed By: #### 4 [id number] #### [facility] [address] [place] [address] pH (U) 6.0 [pH] Invalid Interpretation Code 5.0-9.0 [facility] Comment on above: Performed By: #### 4 [id number] #### [facility] [address] [place] [address] Protein Ql (U) Trace Abnormal Negative [facility] Comment on above: Performed By: #### 4 [id number] #### [facility] [address] [place] [address] RBC Ql (U) 4-20 Abnormal 0-3 [facility] Comment on above: Performed By: #### 4 [id number] #### [facility] [address] [place] [address] Specific gravity (U) [Rel density] 1.018 Invalid Interpretation Code 1.005-1.030 [facility] Comment on above: Performed By: #### 4 [id number] #### [facility] [address] [place] [address] Urobilinogen (U) [Mass/Vol] Negative Normal Negative [facility] Comment on above: Performed By: #### 4 [id number] #### [facility] [address] [place] [address] WBC Auto (Urine sed) [#/Area] >75 Abnormal 0-5 [facility] Comment on above: Performed By: #### 4 [id number] #### [facility] [address] [place] [address] Type of Urine collection method Clean Catch Normal [facility] Comment on above: Performed By: #### 4 [id number] #### [facility] [address] [place] [address] URINALYSISOrdered By: Lee Ann forrest on 04-04-2024 Bilirubin Ql (U) Negative Normal Negativemg/ dL [facility] UA Auto SS Clarity (U) Turbid *ABN* (04/04/24 1:08 PM) Invalid Interpretation Code Clear [facility] UA Auto SS Color (U) Light-Yellow 1 (04/04/24 1:08 PM) Normal Yellow [facility] UA Auto SS Comment on above: Interpretive Data: M icroscopic readings are only performed on those samples that meet specific criteria set forth by [facility]. Epithelial cells.squamous Auto (Urine sed) [#/Area] 0-2 graded/HPF Invalid Interpretation Code [facility] UA Auto SS Glucose Ql (U) Negative Normal Negativemg/ dL [facility] UA Auto SS Hemoglobin Auto test strip (U) [Mass/Vol] Trace Invalid Interpretation Code Negative [facility] UA Auto SS Ketones Auto test strip Ql (U) Negative Normal Negativemg/ dL [facility] UA Auto SS Leukocyte esterase Auto test strip Ql (U) 500 Clint/uL *ABN* (04/04/24 1:08 PM) Invalid Interpretation Code Negative [facility] UA Auto SS Mucus Auto Ql (U) Trace Normal Negative [facility] UA Auto SS Nitrite Auto test strip Ql (U) 1+ mg/dL Invalid Interpretation Code Negativemg/ dL [facility] UA Auto SS pH (U) 6.0 *NA* (04/04/24 1:08 PM) Invalid Interpretation Code 5.0 - 9.0 [facility] UA Auto SS Protein Ql (U) Trace mg/dL Invalid Interpretation Code Negativemg/ dL [facility] UA Auto SS RBC Ql (U) 4-20 graded/HPF Invalid Interpretation Code 0-3graded/H PF [facility] UA Auto SS Specific gravity (U) [Rel density] 1.018 *NA* (04/04/24 1:08 PM) Invalid Interpretation Code 1.005 - 1.030 [facility] UA Auto SS Urobilinogen (U) [Mass/Vol] Negative Normal Negativemg/ dL [facility] UA Auto SS WBC Auto (Urine sed) [#/Area] >75 *ABN* (04/04/24 1:08 PM) Invalid Interpretation Code 0-5 [facility] UA Auto SS URINALYSISOrdered By: Mi Delvalle on 04-04-2024 UA Spec Desc Clean Catch (04/04/24 1:08 PM) Normal [facility] UA Auto SS Vit B12on 04-04-2024 Cobalamin (Vitamin B12) [Mass/Vol] 156 pg/mL Normal 50-1500 [facility] Comment on above: Performed By: #### 2 [id number] #### [facility] [address] [place] [address] XR Chest Single Viewon 04-04 XR Chest Single View Exam Date/Time: 04/04/2024 01:35 EDT Reason for Exam: Shortness of breath (SOB) Report IMPRESSION: NO ACUTE CARDIOPULMONARY DISEASE. CLINICAL HISTORY: Shortness of breath (SOB) COMPARISON: 07/30/2023 FINDINGS: Low lung volumes. Osseous structures intact. Cardiopericardial silhouette normal. Aorta calcified. Pulmonary vasculature normal. Lungs clear. Ordering Provider: Terry Delvalle FINAL REPORT Dictated: 04/04/2024 8:20 am Juan Hill MD Signed (Electronic Signature): 04/04/2024 8:20 am Signed by: Juan Hill MD Transcribed by: SHALOM Technologist: SKBrian Technical Comments Radiation Dose: Ka,r in mGy = na DAP = na Normal [facility] eGFRon 04-04-2024 eGFR 26 mL/min/1.73 m2 Low >=59 [facility] Comment on above: Performed By: #### 1 [id number] #### [facility] [address] [place] [address] Laboratory - Chemistry and C hemistry - challengeon 01-16-2024 Bilirubin Ql (U) Negative NEGATIVE [facility] Glucose (U) [Mass/Vol] Negative NEGATIVE [facility] Ketones Ql (U) Negative NEGATIVE [facility] pH (U) 6.5 [pH] 5.0-9.0 [facility] Specific gravity (U) [Rel density] 1.015 1.005-1.025 [facility] Urobilinogen Qn (U) 0.2 {Macie'U}/dL 0.2-1.0 [facility] Laboratory - Microbiology an d Antimicrobial susceptibilityon 01-16-2024 Bacteria identified Cx Nom (U) [facility] Laboratory - Specimen inform ationon 01-16-2024 Appearance (U) CLEAR CLEAR [facility] Color (U) LT. YELLOW YELLOW [facility] Laboratory - Urinalysison Leukocyte esterase Test strip Ql (U) TRACE Abnormal NEGATIVE [facility] Mucus Ql (Urine sed) NONE SEEN NONE SEEN [facility] Nitrite Ql (U) Negative NEGATIVE [facility] Protein Ql (U) Negative NEG/TRACE [facility] No Panel Informationon 01-15 Miscellaneous Test Comment See comment [facility] Comment on above: Specimen Source: UCC - Urine,Clean Catch - Urine CC - 200.100 Urine Bacteria TRACE #/HPF Abnormal NONE SEEN [facility] Urine Culture Reflexed YES [facility] Urine Microscopic Review YES [facility] Urine Occult Blood Negative NEGATIVE [facility] Urine Other Casts NONE SEEN #/LPF NONE SEEN [facility] Urine Other Crystals None Seen #/HPF None Seen [facility] Urine RBC NONE SEEN #/HPF 0-2 [facility] Urine Squamous Epithelial Cells RARE #/LPF NONE/RARE [facility] Urine WBC 5-10 #/HPF Abnormal NONE SEEN [facility] Erythrocyte distribution wid th Auto (RBC) [Ratio]on 12-13-2023 Erythrocyte distribution width (RBC) [Ratio] 13.9 % 11.0-15.0 [facility] Estimated glomerular filtrat ion rate (GFR) non- Americanon 12-13-2023 GFR/1.73 sq M.predicted among non-blacks MDRD (S/P/Bld) [Vol rate/Area] 30 mL/min/{1.73_m2} Low >=60 [facility] Hematocrit Auto (Bld) [Volum e fraction]on 12-13-2023 Hematocrit (Bld) [Volume fraction] 36.2 % 36.0-48.0 [facility] Hemoglobin [Mass/volume] in Bloodon 12-13-2023 Hemoglobin (Bld) [Mass/Vol] 11.5 g/dL Low 12.0-16.0 [facility] Iron binding capacity [Mass/ volume] in Serum or Plasmaon 12-13-2023 Iron binding capacity [Mass/Vol] 310.0 ug/dL 250.0-450.0 [facility] Iron saturation [Mass Fracti on] in Serum or Plasmaon 12-13-2023 Iron saturation [Mass fraction] 11.3 % [facility] Laboratory - Chemistry and C hemistry - challengeon 12-13-2023 Albumin [Mass/Vol] 3.3 g/dL Low 3.4-5.0 [facility] Calcium [Mass/Vol] 9.4 mg/dL 8.5-10.1 [facility] Chloride [Moles/Vol] 102 mmol/L 98-107 [facility] CO2 [Moles/Vol] 31.0 mmol/L 21.0-32.0 [facility] Creatinine [Mass/Vol] 1.67 mg/dL High 0.55-1.02 [facility] Ferritin [Mass/Vol] 32.0 ng/mL 8.0-252.0 [facility] GFR/1.73 sq M.predicted MDRD (S/P/Bld) [Vol rate/Area] 36 mL/min/{1.73_m2} Low >=60 [facility] Glucose [Mass/Vol] 118 mg/dL High 74-106 [facility] Iron [Mass/Vol] 35.0 ug/dL Low 50.0-170.0 [facility] Magnesium [Mass/Vol] 1.8 mg/dL 1.8-2.4 [facility] Potassium [Moles/Vol] 4.1 mmol/L 3.5-5.1 [facility] Sodium [Moles/Vol] 140 mmol/L 136-145 [facility] Urate [Mass/Vol] 7.5 mg/dL High 2.6-6.0 [facility] Urea nitrogen [Mass/Vol] 22.0 mg/dL High 7.0-18.0 [facility] Urea nitrogen/Creatinine [Mass ratio] 13.2 mg/mg [facility] Bilirubin Ql (U) Negative NEGATIVE [facility] Glucose (U) [Mass/Vol] Negative NEGATIVE [facility] Ketones Ql (U) Negative NEGATIVE [facility] pH (U) 6.5 [pH] 5.0-9.0 [facility] Specific gravity (U) [Rel density] 1.010 1.005-1.025 [facility] Urobilinogen Qn (U) 0.2 {Macie'U}/dL 0.2-1.0 [facility] Laboratory - Specimen inform ationon 12-13-2023 Appearance (U) CLEAR CLEAR [facility] Color (U) LT. YELLOW YELLOW [facility] Laboratory - Urinalysison Leukocyte esterase Test strip Ql (U) TRACE Abnormal NEGATIVE [facility] Mucus Ql (Urine sed) NONE SEEN NONE SEEN [facility] Nitrite Ql (U) Negative NEGATIVE [facility] Protein (U) [Mass/Vol] 9.8 mg/dL <=11.9 [facility] Protein Ql (U) Negative NEG/TRACE [facility] Leukocytes [#/volume] correc olamide for nucleated erythrocytes in Blood by Automated counon 12-13-2023 WBC corrected for nucl RBC Auto (Bld) [#/Vol] 6.2 10 3/uL 4.0-11.0 [facility] MCH Auto (RBC) [Entitic mass ]on 12-13-2023 MCH (RBC) [Entitic mass] 29.6 pg 26.7-34.0 [facility] MCHC Auto (RBC) [Mass/Vol]on 12-13-2023 MCHC (RBC) [Mass/Vol] 31.8 g/dL 29.9-35.2 [facility] MCV Auto (RBC) [Entitic vol] on 07-09-2024 MCV (RBC) [Entitic vol] 93.1 fL 81.0-99.0 F [facility] No Panel Informationon 12-12 25-Hydroxy Vitamin D Total 75.0 ng/mL [facility] Comment on above: <20 ng/mL Vit D defi cient20-<30 ng/mL Vit D tjailpkxityi24-910 ng/mL Vit D sufficient>100 ng/mL Potential Toxicity Parathyroid Hormone (Intact) 39 pg/mL 15-65 [facility] Comment on above: Performed at: - [address] [id number] Director: Jerry Joseph PhD, Phone: [phone] Phosphorus Level 3.5 mg/dL 2.6-4.7 [facility] Urine Bacteria SMALL #/HPF Abnormal NONE SEEN [facility] Urine Occult Blood Negative NEGATIVE [facility] Urine Other Casts NONE SEEN #/LPF NONE SEEN [facility] Urine Other Crystals None Seen #/HPF None Seen [facility] Urine Random Creatinine 27.29 mg/dL 20.0 0-300.0 0 [facility] Urine RBC 0-2 #/HPF 0-2 [facility] Urine Squamous Epithelial Cells FEW #/LPF Abnormal NONE/RARE [facility] Urine WBC 5-10 #/HPF Abnormal NONE SEEN [facility] Platelet mean volume Auto (B ld) [Entitic vol]on 12-13-2023 Platelet mean volume (Bld) [Entitic vol] 8.7 fL Low 9.5-13.5 [facility] Platelets Auto (Bld) [#/Vol] on 12-13-2023 Platelets (Bld) [#/Vol] 293 10 3/uL 150-450 [facility] RBC Auto (Bld) [#/Vol]on RBC (Bld) [#/Vol] 3.89 10 6/uL Low 4.20-5.40 [facility] Serum or plasma anion gap de terminationon 12-13-2023 Anion gap [Moles/Vol] 11.1 mmol/L [facility] Urine protein/creatinine rat ioon 12-13-2023 Protein/Creatinine (U) [Ratio] 0.36 [facility] Office Visiton 11-07-2023 Follow-up visit [id number] Nadia Patterson 1945 F Date Provider Department Center 11/07/2023 JenniferJOSH HANNAH DOMONI[facility] No family history on file Level of Service:42071 SD OFFICE/OUTPATIENT ESTABLISHED LOW MDM 20 MIN Normal [facility] Office Visiton 08-10-2023 Follow-up visit [id number] Nadia Patterson 1945 F Date Provider Department Center 08/10/2023 JenniferJOSH HANNAH [facility] No family history on file Level of Service:49431 SD OFFICE/OUTPATIENT ESTABLISHED MOD MDM 30 MIN Normal [facility] Orders Onlyon 08-10-2023 Orders Only [id number] Nadia Patterson 1945 F Date Provider Department Center 08/10/2023 [facility] No family history on file Normal [facility] Discharge Instructionson Discharge Instructions [id number] 2#1.00TIFF Normal [facility] BMPon 08-02-2023 Anion gap [Moles/Vol] 11 mmol/L Normal -16 [facility] Comment on above: Performed By: #### 1 [id number], [id number], [id number] ####[facility] [address] [place] [address] BUN/Creat Ratio 15 No Units Normal 10-20 [facility] Comment on above: Performed By: #### 1 [id number], [id number], [id number] ####[facility] [address] [place] [address] Calcium [Mass/Vol] 9.1 mg/dL Normal 8.9-11.1 [facility] Comment on above: Performed By: #### 1 [id number], 2919897, 4137502 ####[facility] [address] [place] [address] Chloride [Moles/Vol] 106 mmol/L Normal 101-111 [facility] Comment on above: Performed By: #### 1 3803636, 7421868, 6648860 ####[facility] [address] [place] [address] CO2 [Moles/Vol] 29 mmol/L Normal 21-31 [facility] Comment on above: Performed By: #### 1 9943001, 3971454, 4119022 ####[facility] [address] [place] [address] Creatinine [Mass/Vol] 1.5 mg/dL High 0.5-1.3 [facility] Comment on above: Performed By: #### 1 7235131, 1516798, 1064635 ####[facility] [address] [place] [address] Glucose [Mass/Vol] 128 mg/dL Normal 55-199 [facility] Comment on above: Performed By: #### 1 9690100, 3964329, 2764542 ####[facility] [address] [place] [address] Potassium [Moles/Vol] 4.0 mmol/L Normal 3.5-5.3 [facility] Comment on above: Performed By: #### 1 7825745, 1934637, 3823260 ####[facility] [address] [place] [address] Sodium [Moles/Vol] 142 mmol/L Normal 135-145 [facility] Comment on above: Performed By: #### 1 8361656, 0342133, 1596410 ####[facility] [address] [place] [address] Urea nitrogen [Mass/Vol] 22 mg/dL High 5-21 [facility] Comment on above: Performed By: #### 1 5384091, 0220771, 0573242 ####[facility] [address] [place] [address] CBC w/ Auto Diffon 4 Basophil Absolute 0.1 E9/L Normal 0.0-0.2 [facility] Comment on above: Performed By: #### 1 7125285, 6247994, 5273593 ####[address] [address] Basophils/100 WBC (Bld) 1.1 % Normal 0.0-2.0 [facility] Comment on above: Performed By: #### 1 3520009, 5267731, 4173213 ####[address] [address] Eos Absolute 0.2 E9/L Normal 0.0-0.5 [facility] Comment on above: Performed By: #### 1 8239835, 0950443, 0573333 ####[address] [address] Eosinophils/100 WBC (Bld) 4.7 % Normal 0.0-8.0 [facility] Comment on above: Performed By: #### 1 3018616, 8760025, 1182051 ####[address] [address] Erythrocyte distribution width (RBC) [Ratio] 14.8 % High 10.9-14.2 [facility] Comment on above: Performed By: #### 1 [id number], 3357860, 4052340 ####[address] [address] Hematocrit (Bld) [Volume fraction] 33.0 % Low 34.0-46.0 [facility] Comment on above: Performed By: #### 1 2766870, 4795199, 4326310 ####[address] [address] Hemoglobin (Bld) [Mass/Vol] 10.7 g/dL Low 12.0-16.0 [facility] Comment on above: Performed By: #### 1 2980296, 3814454, 0442608 ####[address] [address] Lymph Absolute 2.1 E9/L Normal 1.0-4.0 [facility] Comment on above: Performed By: #### 1 0750738, 4506647, 2114009 ####[address] [address] Lymphocytes/100 WBC (Bld) 39.9 % Normal 14.0-50.0 [facility] Comment on above: Performed By: #### 1 5105124, 0967099, 4053323 ####[address] [address] MCH (RBC) [Entitic mass] 29.1 pg Normal 27.0-34.0 [facility] Comment on above: Performed By: #### 1 4965932, 4087183, 7065716 ####[address] [address] MCHC (RBC) [Mass/Vol] 32.4 g/dL Normal 31.4-36.0 [facility] Comment on above: Performed By: #### 1 0353246, 7491355, 0053736 ####[address] [address] MCV (RBC) [Entitic vol] 89.6 fL Normal 80.0-100.[address] [facility] Comment on above: Performed By: #### 1 2958611, 3675904, 8605256 ####[address] [address] [place] Absolute 0.4 E9/L Normal 0.2-1.0 [facility] Comment on above: Performed By: #### 1 8011364, 7775648, 7917810 ####[address] [address] Monocytes/100 WBC (Bld) 8.1 % Normal 4.0-14.[address] [facility] Comment on above: Performed By: #### 1 0040017, 3871247, 7857225 ####[address] [address] Neutro Absolute 2.4 E9/L Normal 2.0-7.5 [facility] Comment on above: Performed By: #### 1 2791647, 5104782, 3631768 ####[facility] [address] [place] [address] Neutro Auto 46.2 % Normal 36.0-75.0 [facility] Comment on above: Performed By: #### 1 7775354, 5000006, 2808562 ####[place] [address] [place] [address] Platelet 236.0 E9/L Normal 150.0-500.0 [facility] Comment on above: Performed By: #### 1 8403660, 2703517, 6260468 ####[place] [address] [place] [address] Platelet mean volume (Bld) [Entitic vol] 6.8 fL Normal 6.4-10.8 [facility] Comment on above: Performed By: #### 1 7090444, 6005318, 1452605 ####[address] [address] RBC 3.7 E12/L Low 4.3-5.9 [facility] Comment on above: Performed By: #### 1 3049045, 0916391, 3186713 ####[facility] [address] [place] [address] WBC 5.3 E9/L Normal 4.0-11.0 [facility] Comment on above: Performed By: #### 1 0865054, 9194584, 1714806 ####[facility] [address] [place] [address] CHEMISTRYOrdered By: SYSTEM SYSTEM on 08-02-2023 Anion [...] Normal 80.0 - 100.0 fL Remisol Heme [place] Absolute 0.4 E9/L Normal 0.2 - 1.0 [...] Inpatient Clinical Summaryon 08-02-2023 Inpatient Clinical Summary [place] [id number] Clinical Summary Person Information: Name: NADIA PATTERSON Age: 78 Years : 1945 Sex: Female PCP: HARPAL HAYES MD Marital Status: Phone: [phone] Race: White Ethnicity: Non- or Language: Mozambican Visit Id: Visit Reason: Cough; Weakness or fatigue; WEAKNESS Speciality: Acuity: Enc Type: Inpatient Med Service: Medical Arrival: 07/30/2023 20:28:48 Discharge: Dispo Type: Admitted as IP to this [facility] Address: [address] [place] [id number] Provider Notes: Diagnosis: 1:Generalized weakness; 2:Pneumonia; 3:Lactic acidosis; 4:Fibromyalgia; 5:Diabetes mellitus with polyneuropathy; 6:Hypothyroid; 7:CKD (chronic kidney disease) stage 3, GFR 30-59 ml/min; 8:Dementia Problems Active VRE (vancomycin resistant enterococcus) culture positive (12/16/2022) Left wrist pain Hypothyroid Hyperlipemia, mixed Weakness generalized UTI (urinary tract infection) Diabetes mellitus with polyneuropathy Vitamin D deficiency Dementia Cerebrovascular small vessel disease Recurrent falls Fibromyalgia Smoking Status: Never Smoker Functional Status: Sensory Deficits: History of Falls: Within last three months Mobility Assistance Prior to Admission: Partial assistance ADLs: Minimal assistance Current Level of Assistance for Self-Care/Mobility: Cognitive Status: Oriented x 3 Allergies Stadol Measurements: Height: 157.48 cm Weight: 83.8 kg Blood Pressure: 124 mmHg / 72 mmHg BMI: 33.83 kg/m2 Procedures Knee replacement Femur Immunizations No Immunizations Documented This Visit Final Med List: acetaminophen (Tylenol Extra Strength 500 mg oral tablet) 2 Tablets By Mouth every 6 hours. acetaminophen-hydroc odone (Hendley 325 mg-5 mg oral tablet) 1 Tablets By Mouth 2 times a day as needed as needed for pain. aspirin (aspirin 81 mg Oral EC Tab) 1 Tablets By Mouth every day. atorvastatin (atorvastatin 10 mg Tab) 1 Tablets By Mouth at bedtime. azithromycin (azithromycin 250 mg Tab) 1 Tablets By Mouth every day. Refills: 0. carvedilol (carvedilol 6.25 mg Tab) 1 Tablets By Mouth 2 times a day. Hold for sbp 110 or less or HR 55 or less. cefuroxime (cefuroxime 500 mg oral tablet) 1 Tablets By Mouth 2 times a day. Refills: 0. cetirizine (cetirizine 10 mg Tab) 1 Tablets By Mouth every day as needed allergies. cholecalciferol (cholecalciferol 10,000 intl units oral capsule) 1 Capsules By Mouth Tuesday. docusate (Colace 100 mg Cap) 1 Capsules By Mouth 2 times a day as needed for constipation. ferrous sulfate (ferrous sulfate 325 mg Tab) 1 Tablets By Mouth Tuesday. furosemide (furosemide 40 mg Tab) 1 Tablets By Mouth every day. levothyroxine (levothyroxine 50 mcg (0.05 mg) Tab) 1 Tablets By Mouth every day. magnesium oxide (magnesium oxide 250 mg oral tablet) 1 Tablets By Mouth every day for 10 Days. magnesium oxide (magnesium oxide 400 mg oral capsule) 1 Capsules By Mouth every day. metformin (metformin 500 mg oral tablet) 1 Tablets By Mouth 2 times a day. mirabegron (Myrbetriq 50 mg oral tablet, extended release) TAKE 1 TABLET BY MOUTH EVERY MORNING. nitroglycerin (nitroglycerin 0.4 mg sublingual Tab) 1 [...] By Mouth 2 times a day. pregabalin 150 Milligram By Mouth 2 times a day. ropinirole (ropinirole 4 mg oral tablet) 1 Tablets By Mouth Once daily with supper. trazodone (traZODONE 150 mg Tab) 1 Tablets By Mouth once a day (at bedtime). Care Team Members: Attending Physician: Christie Zayas MD Consulting Physician: Referring Physician: Follow up: With: Address: When: [address] BR[address]GS, [place] [address] 08/09/2023 10:30 AM Comments: Call for followup appointment Patient Education Information: Community-Acquired Pneumonia, Adult, Moox-eu-Dcps Normal [facility] Inpatient Patient Summaryon 08-02-2023 Inpatient Patient Summary NADIA PATTERSON :1945 Visit Date:07/30/2023 Inpatient Discharge Instructions Your Care Team Admitting Physician - Christie Zayas MD Reason for Your Visit weak, cough Your Diagnosis Generalized weakness Pneumonia Lactic acidosis Fibromyalgia Diabetes mellitus with polyneuropathy Hypothyroid CKD (chronic kidney disease) stage 3, GFR 30-59 ml/min Dementia Cough Weakness or fatigue Tests Performed XR Chest Single View This Is Your Medications List acetaminophen (Tylenol Extra Strength 500 mg oral tablet) acetaminophen-hydroc odone (Hendley 325 mg-5 mg oral tablet) aspirin (aspirin 81 mg Oral EC Tab) atorvastatin (atorvastatin 10 mg Tab) azithromycin (azithromycin 250 mg Tab) carvedilol (carvedilol 6.25 mg Tab) cefuroxime (cefuroxime 500 mg oral tablet) cetirizine (cetirizine 10 mg Tab) cholecalciferol (cholecalciferol 10,000 intl units oral capsule) docusate (Colace 100 mg Cap) ferrous sulfate (ferrous sulfate 325 mg Tab) furosemide (furosemide 40 mg Tab) levothyroxine (levothyroxine 50 mcg (0.05 mg) Tab) magnesium oxide (magnesium oxide 250 mg oral tablet) magnesium oxide (magnesium oxide 400 mg oral capsule) metformin (metformin 500 mg oral tablet) mirabegron (Myrbetriq 50 mg oral tablet, extended release) nitroglycerin (nitroglycerin 0.4 mg sublingual Tab) nystatin topical (nystatin Top 100,000 units/g Pwdr) polyethylene glycol 3350 (polyethylene glycol 3350 17 gram packet) potassium chloride (Potassium Chloride (Eqv-K-Tab) 10 mEq oral tablet, extended release) pregabalin ropinirole (ropinirole 4 mg oral tablet) trazodone (traZODONE 150 mg Tab) [Image Removed: STOP]Stop taking these medications insulin lispro Procedure History Femur, Knee replacement, None. Discharge Vitals Temperature (Oral) 36.6 ?C Heart Rate (Monitored) 74 Respiratory Rate 16 Blood Pressure 124/72 Weight 83.8 kg What to do next Instructions From Your Doctor Event Name Event Result Pending Diagnostic Test Results None Pharmacy Information Other: [facility] Discharge Instructions Please return to ER if symptoms change or worsen. Please take medication as prescribed. Please follow-up with PCP New Follow Up Appointments after Discharge Follow Up with FREDDY BRIGGS, GRETEL ROWAN When: 08/09/2023 10:30 AM EST Where: [address] [place] [address]- Medications What How Much When Instructions Next Dose New azithromycin (azithromycin 250 mg Tab) 1 Tablets By Mouth Every day start Pickup at [place] [address] 08/03/23 9am New cefuroxime (cefuroxime 500 mg oral tablet) 1 Tablets By Mouth 2 times a day start Pickup at [place] [address] 08/03/23 9am Changed pregabalin 150 Milligram By Mouth 2 times a day 08/02/23 9pm Unchanged acetaminophen (Tylenol Extra Strength 500 mg oral tablet) 2 Tablets By Mouth Every 6 hours as needed Unchanged acetaminophen-hydroc odone (Hendley 325 mg-5 mg oral tablet) 1 Tablets By Mouth 2 times a day as needed for as needed for pain as needed, only one more dose today Unchanged aspirin (aspirin 81 mg Oral EC Tab) 1 Tablets By Mouth Every day 08/03/23 9am Unchanged atorvastatin (atorvastatin 10 mg Tab) 1 Tablets By Mouth At bedtime 08/02/23 9pm Unchanged carvedilol (carvedilol 6.25 mg Tab) 1 Tablets By Mouth 2 times a day Hold for sbp 110 or less or HR 55 or less 08/02/23 9pm Unchanged cetirizine (cetirizine 10 mg Tab) 1 Tablets By Mouth Every day as needed for allergies as needed Unchanged cholecalciferol (cholecalciferol 10,000 intl units oral capsule) 1 Capsules By Mouth Tuesday08/03/23 9am Unchanged docusate (Colace 100 mg Cap) 1 Capsules By Mouth 2 times a day as needed for for constipation as needed Unchanged ferrous sulfate (ferrous sulfate 325 mg Tab) 1 Tablets By Mouth Tuesday08/03/23 9am Unchanged furosemide (furosemide 40 mg Tab) 1 Tablets By Mouth Every day 08/03/23 9am Unchanged levothyroxine (levothyroxine 50 mcg (0.05 mg) Tab) 1 Tablets By Mouth Every day 08/03/23 9am Unchanged magnesium oxide (magnesium oxide 400 mg oral capsule) 1 Capsules By Mouth Every day 08/03/23 9am Unchanged metformin (metformin 500 mg oral tablet) 1 Tablets By Mouth 2 times a day 08/02/23 9pm Unchanged mirabegron (Myrbetriq 50 mg oral tablet, extended release) TAKE 1 TABLET BY MOUTH EVERY MORNING 08/03/23 9am Unchanged nitroglycerin (nitroglycerin 0.4 mg sublingual Tab) 1 Tablets Sublingual Every 5 minutes as needed for for chest pain as needed Unchanged nystatin topical (nystatin Top 100,000 units/ g Pwdr) 1 Application Topical 2 times a day 08/02/23 9pm Unchanged polyethylene glycol 3350 (polyethylene glycol 3350 17 gram packet) 17 Gram By Mouth Every day as needed for Constipation as needed Unchanged potassium chloride (Potassium Chloride (Eqv-K-Tab) 10 mEq oral tablet, extended release) 1 Tablets By Mouth 2 times a day 08/02/23 (more content not included)... Normal [facility] Inpatient Patient Summary [address] [address] Patient Discharge Instructions PERSON INFORMATION Name: NADIA PATTERSON Date of : 1945 Current Date: 08/02/2023 10:32:19 PHYSICIANS Admitting Physician: Christie Zayas MD Primary Care Physician: HARPAL HAYES MD PCP Comment: Discharge Diagnosis: 1:Generalized weakness; 2:Pneumonia; 3:Lactic acidosis; 4:Fibromyalgia; 5:Diabetes mellitus with polyneuropathy; 6:Hypothyroid; 7:CKD (chronic kidney disease) stage 3, GFR 30-59 ml/min; 8:Dementia Condition at Discharge: Improved NADIA PATTERSON has been given the following list of follow-up instructions, prescriptions, and patient education materials: PATIENT FOLLOW-UP INFORMATION Diet: Discharge Activity: Discharge Restrictions: Wound Care Instructions: Remove Your Dressing In Days Call Your Doctor For: IF UNABLE TO CONTACT YOUR PHYSICIAN AND YOU FEEL IT IS AN EMERGENCY, GO TO THE NEAREST EMERGENCY ROOM OR CALL 911 Home Treatment: Devices/Equipment: Walker Special Services: Additional Instructions: Please return to ER if symptoms change or worsen. Please take medication as prescribed. Please follow-up with PCP Primary Care Physician to provide the following pending test results: None Follow up: With: Address: When: [address]ES [id number] [place] [address] 08/09/2023 10:30 AM Comments: Call for followup appointment In the event that this physician does [...] [facility], [address], [place] [id number], [phone] azithromycin (azithromycin 250 mg Tab) 1 Tablets By Mouth every day. Refills: 0. Patient instructions: start 08/03 Last Dose: Next Dose: cefuroxime (cefuroxime 500 mg oral tablet) 1 Tablets By Mouth 2 times a day. Refills: 0. Patient instructions: start 08/03 Last Dose: Next Dose: Medications to Continue Taking That Have Changed Other Medications START: pregabalin 150 Milligram By Mouth 2 times a day. Last Dose: Next Dose: STOP: pregabalin (pregabalin 150 mg Cap) 1 Capsules By Mouth 2 times a day. G89.29 chronic pain. Refills: 0. Medications to Continue with No Changes Other Medications acetaminophen (Tylenol Extra Strength 500 mg oral tablet) 2 Tablets By Mouth every 6 hours. Last Dose: Next Dose: acetaminophen-hydroc odone (Hendley 325 mg-5 mg oral tablet) 1 Tablets By Mouth 2 times a day as needed as needed for pain. Last Dose: Next Dose: aspirin (aspirin 81 mg Oral EC Tab) 1 Tablets By Mouth every day. Last Dose: Next Dose: atorvastatin (atorvastatin 10 mg Tab) 1 Tablets By Mouth at bedtime. Last Dose: Next Dose: carvedilol (carvedilol 6.25 mg Tab) 1 Tablets By Mouth 2 times a day. Hold for sbp 110 or less or HR 55 or less. Last Dose: Next Dose: cetirizine (cetirizine 10 mg Tab) 1 Tablets By Mouth every day as needed allergies. Last Dose: Next Dose: cholecalciferol (cholecalciferol 10,000 intl units oral capsule) 1 Capsules By Mouth Tuesday. Last Dose: Next Dose: docusate (Colace 100 mg Cap) 1 Capsules By Mouth 2 times a day as needed for constipation. Last Dose: Next Dose: ferrous sulfate (ferrous sulfate 325 mg Tab) 1 Tablets By Mouth Tuesday. Last Dose: Next Dose: furosemide (furosemide 40 mg Tab) 1 Tablets By Mouth every day. Last Dose: Next Dose: levothyroxine (levothyroxine 50 mcg (0.05 mg) Tab) 1 Tablets By Mouth every day. Last Dose: Next Dose: magnesium oxide (magnesium oxide 250 mg oral tablet) 1 Tablets By Mouth every day for 10 Days. Last Dose: Next Dose: magnesium oxide (magnesium oxide 400 mg oral capsule) 1 Capsules By Mouth every day. Last Dose: Next Dose: metformin (metformin 500 mg oral tablet) 1 Tablets By Mouth (more content not included)... Normal [facility] Interdisciplinary Note - [place] e Manageron 08-02-2023 Interdisciplinary Note - Group Chief Operator Pt is awake and alert in bed, previously rounded with Dr. Meier. PCP verified and insurance information reviewed and DME discussed. Contact information provided and white board updated. Pt is set up with [facility] at [place]. P tis from home with and she will transport at [place]. Pt is currently on oxygen 3L, plan to stay in hospital today and wean down oxygen. Pt does not have home oxygen, may need desat prior to [place]. Medicare rights reviewed, CRM following Normal [facility] Comment on above: Result Comment: Elec tronically Signed By: Mei Locke RN\.br\Date and Time Signed: 08/02/23 08:26 EST Other Comment: error Interdisciplinary Note - Group Chief Operator Pt is awake and alert in bed, previously rounded with Dr. Meier. PCP verified and insurance information reviewed and DME discussed. Contact information provided and white board updated. Pt states she is current with [facility], and referral to resource center to verify. Pt is from home with spouse and her daughter or will transport at [place]. Medicare rights reviewed. PT= . CRM following [facility] Comment on above: Result Comment: Elec tronically Signed By: Mei Locke RN\.br\Date and Time Signed: 08/02/23 08:14 EST eGFRon 08-02-2023 eGFR 35 mL/min/1.73 m2 Low >=59 [facility] Comment on above: Order Comment: Order added by Discern Expert. Performed By: #### 1 [id number], [id number], [id number] ####[facility] [address] [place] [address] BMPon 08-01-2023 Anion gap [Moles/Vol] 12 mmol/L Normal 6-16 [facility] Comment on above: Performed By: #### 1 [id number], [id number], 8703271 ####[facility] [address] [place] [address] BUN/Creat Ratio 14 No Units Normal 10-20 [facility] Comment on above: Performed By: #### 1 [id number], 3269858, 1376151 ####[facility] [address] [place] [address] Calcium [Mass/Vol] 9.1 mg/dL Normal 8.9-11.1 [facility] Comment on above: Performed By: #### 1 [id number], 9976220, 5919531 ####[facility] [address] [place] [address] Chloride [Moles/Vol] 103 mmol/L Normal 101-111 [facility] Comment on above: Performed By: #### 1 [id number], 7914971, 7126479 ####[facility] [address] [facility] [place] [address] CO2 [Moles/Vol] 31 mmol/L Normal 21-31 [facility] Comment on above: Performed By: #### 1 [id number], 2162960, 6861154 ####[facility] [address] [place] [address] Creatinine [Mass/Vol] 1.3 mg/dL Normal 0.5-1.3 [facility] Comment on above: Performed By: #### 1 [id number], 7723546, 7392306 ####[facility] [address] [place] [address] Glucose [Mass/Vol] 113 mg/dL Normal 55-199 [facility] Comment on above: Performed By: #### 1 [id number], 7006883, 4773717 ####[facility] [address] [place] [address] Potassium [Moles/Vol] 4.0 mmol/L Normal 3.5-5.3 [facility] Comment on above: Performed By: #### 1 2589835, 2822865, 9782071 ####[address] [address] Sodium [Moles/Vol] 142 mmol/L Normal 135-145 [facility] Comment on above: Performed By: #### 1 9276907, 2726842, 0778989 ####[address] [address] Urea nitrogen [Mass/Vol] 18 mg/dL Normal 5-21 [facility] Comment on above: Performed By: #### 1 [id number], 8508669, 5422070 ####[address] [address] BNPon 08-01-2023 Natriuretic peptide B (Bld) [Mass/Vol] 112 pg/mL High 5-80 [facility] Comment on above: Performed By: #### 1 [id number] ####[address] [address] CBC w/ Auto Diffon 4 Basophil Absolute 0.1 E9/L Normal 0.0-0.2 [facility] Comment on above: Performed By: #### 1 [id number], 4909450, 1526944 ####[address] [address] Basophils/100 WBC (Bld) 1.4 % Normal 0.0-2.[address] [facility] Comment on above: Performed By: #### 1 2547931, 0166544, 6190502 ####[address] [address] Eos Absolute 0.3 E9/L Normal 0.0-0.5 [facility] Comment on above: Performed By: #### 1 4065081, 8350698, 9051269 ####[address] [address] Eosinophils/100 WBC (Bld) 6.1 % Normal 0.0-8.0 [facility] Comment on above: Performed By: #### 1 7364529, 5667602, 8015919 ####[address] [address] Erythrocyte distribution width (RBC) [Ratio] 14.9 % High 10.9-14.2 [facility] Comment on above: Performed By: #### 1 9253567, 7529647, 2024018 ####[address] [address] Hematocrit (Bld) [Volume fraction] 34.0 % Normal 34.0-46.0 [facility] Comment on above: Performed By: #### 1 6271355, 9027254, 5070849 ####[place] [address] Hemoglobin (Bld) [Mass/Vol] 11.3 g/dL Low 12.0-16.0 [facility] Comment on above: Performed By: #### 1 9324639, 4913206, 1212029 ####[address] [address] Lymph Absolute 2.4 E9/L Normal 1.0-4.0 [facility] Comment on above: Performed By: #### 1 8853754, 5409267, 2843605 ####[address] [address] Lymphocytes/100 WBC (Bld) 43.6 % Normal 14.0-50.0 [facility] Comment on above: Performed By: #### 1 9900953, 0591766, 7375650 ####[address] [address] MCH (RBC) [Entitic mass] 29.4 pg Normal 27.0-34.0 [facility] Comment on above: Performed By: #### 1 9393559, 5379024, 1713385 ####[address] [address] MCHC (RBC) [Mass/Vol] 33.2 g/dL Normal 31.4-36.0 [facility] Comment on above: Performed By: #### 1 6179137, 1188446, 9084971 ####[address] [address] MCV (RBC) [Entitic vol] 88.5 fL Normal 80.0-100.0 [facility] Comment on above: Performed By: #### 1 4329213, 9320778, 5295106 ####[address] [address] [place] Absolute 0.4 E9/L Normal 0.2-1.0 [facility] Comment on above: Performed By: #### 1 7521732, 0518987, 0617621 ####[place] [address] Monocytes/100 WBC (Bld) 7.3 % Normal 4.0-14.0 [facility] Comment on above: Performed By: #### 1 1039546, 4246752, 7873572 ####[address] [address] Neutro Absolute 2.2 E9/L Normal 2.0-7.5 [facility] Comment on above: Performed By: #### 1 1611021, 9021025, 2353154 ####[address] [address] Neutro Auto 41.6 % Normal 36.0-75.0 [facility] Comment on above: Performed By: #### 1 9881433, 4429022, 5719172 ####[address] [address] Platelet 251.0 E9/L Normal 150.0-500.0 [facility] Comment on above: Performed By: #### 1 9418919, 1551095, 1244925 ####[address] [place] [address] Platelet mean volume (Bld) [Entitic vol] 7.9 fL Normal 6.4-10.8 [facility] Comment on above: Performed By: #### 1 9509429, 9326379, 0314093 ####[facility] [address] [place] [address] RBC 3.8 E12/L Low 4.3-5.9 [facility] Comment on above: Performed By: #### 1 5599742, 8913180, 2014715 ####[facility] [address] [place] [address] WBC 5.4 E9/L Normal 4.0-11.0 [facility] Comment on above: Performed By: #### 1 7668254, 3255165, 2987633 ####[facility] [address] [place] [address] CHEMISTRYOrdered By: [employer] on 08-01-2023 Anion gap [Moles/Vol] 12 mmol/L [...] 112 pg/mL High 5 - 80 pg/mL [facility] Erma HEMATOLOGYOrdered By: SYSTEM SYSTEM on 08-01-2023 Basophil [...] Normal 80.0 - 100.0 fL Remisol Heme [place] Absolute 0.4 E9/L Normal 0.2 - 1.0 [...] Normal 4.0 - 11.0 E9/L Remisol Heme KlxJ2asc 08-01-2023 HbA1c (Bld) [Mass fraction] 6.7 % High <=5.9 [facility] Comment on above: Order Comment: Order placed by EKM rule. [email or web address]_[facility] Performed By: #### 7 [id number] ####[facility] [address] [place] [address] Interdisciplinary Note - [place] e Manageron 08-01-2023 Interdisciplinary Note - Group Chief Operator Pt is awake and alert in bed, previously rounded with Dr. Meier. Pt is from home with spouse and he will transport at [place]. Inpatient status reviewed, form signed and original provided. . PCP verified and insurance information reviewed and DME discussed. Contact information provided and white board updated. CRM returned to pt room, to discuss DC plans, tp is asleep and does not awaken when name called. Pt nurse Keiry on phone with pt daughter at this time, aware of therapy evals for HH and agreeable to [facility] HH at [place], referral to be sent to resource center, anticipate DC 08/02/23 [facility] Comment on above: Result Comment: Elec tronically Signed By: Cornelia TAVAREZ, Mei\.br\Date and Time Signed: 08/01/23 14:51 EST Message from Medicareon 07-08 Message from Medicare [id number] 20 [id number] #[id number] [facility] Progress Note-Physicianon Progress Note-Physician Assessment/Plan 1. Generalized weakness (R53.1: Weakness) - Likely due to underlying pneumonia, [...] appear to be on any dementia medication. Subjective Patient seen and examined. No acute events overnight. Patient states she was able to sleep intermittently but reports an increase in posterior cervical pain and leg pain requiring a dose of Hendley. She states this is not a new symptom and is being managed for fibromyalgia outpatient. Patient is not requiring any oxygen therapy at this time. She has had an improved appetite since time of admission. She denies any chest pain, shortness of breath, diarrhea, constipation, nausea or vomiting. Review of Systems As stated above. Objective Vitals & Measurements T: 36.5 ?C(Oral) TMIN: 36.3 ?C(Oral) TMAX: 36.5 ?C(Oral) HR: 65(Monitored) RR: 18 BP: 111/71 SpO2: 94% HT: 157.48 cm WT: 84.5 kg Intake & Output This visit (24 hour periods starting at 07:00 EST) 08/01/23 * 07/31/23 07/30/23 Total Summary Intake mL -- 720 750 Output mL -- 1 -- Fluid Balance -- 719 750 Intake (3) Oral Intake mL -- 720 -- Sodium Chloride 0.9% mL -- -- 500 Sodium Chloride 0.9%, azithromycin mL -- -- 250 Total -- 720 750 Output (1) Urine Voided mL -- 1 -- Total -- 1 -- Counts (2) Stool Count -- 2 -- Urine Count -- 4 -- * This column has not completed the indicated time period. Physical Exam General: Looks well, no acute distress, well-nourished, well-kept Skin: Warm, dry Head: No trauma, normocephalic Neck: mild tenderness posteriorly on the left side, Trachea midline, supple, negative for JVD Eye: Conjunctive are clear, clear sclera , EOMI ENMT: oral mucosa moist, no lesions or edema nose or external ears Cardiovascular: Regular rate and rhythm, S1-S2 present, negative for murmurs rubs or gallops Respiratory: Lungs clear to auscultation, bilateral symmetric movement, negative for wheezes rales or rhonchi Chest wall: no deformity. Gastrointestinal: Abdomen soft, nontender to palpation, bowel sounds present Back: No tenderness Extremities: mild edema and tenderness of the bilateral LE, no erythema or increased warmth, Range of motion intact Neurological: resting tremor, awake, alert, speech normal, cranial nerves II through XII intact, no sensory defects, alert and oriented x3 Psychiatric: cooperative, affect appropriate for age, pleasant Lab Results WBC: 5.4 E9/L (08/01/23 08:50:00) RBC: 3.8 E12/L Low (08/01/23 08:50:00) HGB: 11.3 gm/dL Low (08/01/23 08:50:00) Hct: 34 % (08/01/23 08:50:00) MCV: 88.5 fL (08/01/23 08:50:00) MCH: 29.4 pg (08/01/23 08:50:00) MCHC: 33.2 gm/dL (08/01/23 08:50:00) RDW: 14.9 % High (08/01/23 08:50:00) Platelet: 251 E9/L (08/01/23 08:50:00) MPV: 7.9 fL (08/01/23 08:50:00) Neutro Auto: 41.6 % (08/01/23 08:50:00) Lymph Auto: 43.6 % (08/01/23 08:50:00) [place] Auto: 7.3 % (08/01/23 08:50:00) Eos Auto: 6.1 % (08/01/23 08:50:00) Basophil Auto: 1.4 % (08/01/23 08:50:00) Neutro Absolute: 2.2 E9/L (08/01/23 08:50:00) Lymph Absolute: 2.4 E9/L (08/01/23 08:50:00) [place] Absolute: 0.4 E9/L (08/01/23 08:50:00) Eos Absolute: 0.3 E9/L (08/01/23 08:50:00) Basophil Absolute: 0.1 E9/L (08/01/23 08:50:00) Attestation I was present with the CHRISTOPHER student for the service. I personally verified the history of present illness and performed the physical examination and medical decision making. I have verified all of the CHRISTOPHER student's documentation for this encounter. Problem List/Past Medical History Ongoing Cerebrovascular small vessel disease Dementia Diabetes mellitus with polyneuropathy Fibromyalgia Hyperlipemia, mixed Hypothyroid Left wrist pain Recurrent falls UTI (urinary tract infection) Vitamin D deficiency VRE (vancomycin resistant enterococcus) culture positive Weakness (more content not included)... Normal [facility] Comment on above: Result Comment: Elec tronically Signed By: Saira Lawler\.br\Date and Time Signed: 08/01/23 09:26 EST\.br\Electronically Co-Signed By: Hector Meier DO\.br\Date and Time Co-Signed: 08/01/23 14:28 EST eGFRon 08-01-2023 eGFR 42 mL/min/1.73 m2 Low >=59 [facility] Comment on above: Order Comment: Order added by Discern Expert. Performed By: #### 1 [id number], [id number], [id number] ####[facility] [address] [place] [address] CHEMISTRYOrdered By: Cecelia Carrillo on 07-31-2023 HbA1c (Bld) [Mass fraction] 6.7 % High <=5.9% [facility] ChemAutoSS CHEMISTRYOrdered By: SYSTEM SYSTEM on 07-31-2023 [...] High Sensitivity Troponin I Instructions For Use, [employer] January 2018) Troponin 3.50 pg/mL Low 10.10 - 27.10 pg/mL [facility] Comment on above: Interpretive Data: T he 95% CI (Confidence Interval) PPV (Positive Predictive Value) for myocardial infarction in females is 38 pg/mL, in males 51 pg/mL. The results should be used in conjunction with clinical conditions of myocardial infarction. (Access High Sensitivity Troponin I Instructions For Use, [employer] January 2018) Lactic Acid Lvl 2.1 mmol/L [...] High Sensitivity Troponin I Instructions For Use, [employer] January 2018) ED Clinical Summaryon 2023 ED Clinical Summary [place] [id number] ED Clinical Summary Person Information Name: NADIA PATTERSON [facility] Age: 78 Years : 1945 Sex: Female Language: Mozambican PCP: HARPAL HAYES MD Marital Status: Phone: [phone] Visit Id: Visit Reason: Cough; Weakness or fatigue; WEAKNESS Speciality: Acuity: 3 Enc Type: Inpatient Med Service: Emergency Arrival: 07/30/2023 20:28:48 Discharge: LOS: 000 14:42 Checkin: 07/30/2023 20:28:48 Checkout: 07/31/2023 11:10:22 Dispo Type: Admitted as IP to this [facility] EVENTS: Event Name Event Status Request Date/Time Start Date/Time Complete Date/Time Arrive Complete 07/30/2023 20:28:48 07/30/2023 20:28:48 07/30/2023 20:28:48 Document Home Meds Request 07/30/2023 20:28:48 Triage Complete 07/30/2023 20:28:48 07/30/2023 20:35:20 07/30/2023 20:35:20 Bed Assign Complete 07/30/2023 20:30:13 07/30/2023 20:30:13 07/30/2023 20:30:13 Dr Exam Complete 07/30/2023 20:30:13 07/30/2023 21:53:17 07/30/2023 21:53:17 RN Exam Complete 07/30/2023 20:30:13 07/30/2023 21:32:26 07/30/2023 21:32:26 EKG Complete 07/30/2023 20:31:03 07/30/2023 20:38:15 Isolation Screening Request 07/30/2023 20:35:21 Pending Labs Complete 07/30/2023 20:35:44 07/30/2023 20:35:44 07/30/2023 20:35:45 Meds Admin Complete 07/30/2023 20:37:32 07/30/2023 21:33:48 Pending Labs Inlab 07/30/2023 20:37:32 Lab Inlab 07/30/2023 20:37:32 Urine Collect Complete 07/30/2023 20:37:32 07/30/2023 23:21:35 Patient Care Cancel 07/30/2023 20:37:32 07/31/2023 03:11:48 X-Ray Complete 07/30/2023 20:37:32 07/30/2023 21:00:48 07/30/2023 21:01:06 Wet Read Request 07/30/2023 21:01:06 Fall Risk Request 07/30/2023 21:32:27 Pending Labs Complete 07/30/2023 21:50:22 07/30/2023 21:50:22 07/30/2023 22:13:01 Lab Complete 07/30/2023 21:50:22 07/30/2023 21:50:22 07/30/2023 22:13:01 Registration Complete 07/30/2023 21:53:17 07/30/2023 22:27:52 07/30/2023 22:27:52 Dr Exam Complete 07/30/2023 21:57:28 07/30/2023 21:57:28 07/30/2023 21:57:28 Pending Labs Complete 07/30/2023 22:11:01 07/30/2023 22:11:01 07/30/2023 22:11:01 Pending Labs Complete 07/30/2023 22:11:01 07/31/2023 00:39:55 Lab Complete 07/30/2023 22:11:01 07/31/2023 00:39:55 Reg Complete Request 07/30/2023 22:27:52 Reg Bed Request Complete 07/30/2023 22:27:52 07/30/2023 22:27:52 07/30/2023 22:27:52 Pending Labs Complete 07/30/2023 23:06:02 07/30/2023 23:06:02 07/30/2023 23:19:13 Meds Admin Complete 07/30/2023 23:14:37 07/31/2023 00:14:45 Pending Labs Complete 07/30/2023 23:19:46 07/30/2023 23:19:46 07/30/2023 23:47:52 Lab Complete 07/30/2023 23:19:46 07/30/2023 23:19:46 07/30/2023 23:47:52 Meds Admin Cancel 07/30/2023 23:53:01 07/31/2023 03:23:59 Consult Request 07/31/2023 01:02:48 Hospitalist Consult Request 07/31/2023 01:02:48 Bed Request Request 07/31/2023 01:03:42 Reg Bed Request Complete 07/31/2023 01:03:42 07/31/2023 01:22:53 07/31/2023 01:22:53 Admit Request 07/31/2023 01:03:42 Patient Care Request 07/31/2023 01:22:54 Patient Care Request 07/31/2023 01:22:54 Patient Care Request 07/31/2023 01:22:54 Patient Care Request 07/31/2023 01:22:54 Patient Care Request 07/31/2023 01:22:55 Patient Care Request 07/31/2023 01:22:55 Pending Labs Complete 07/31/2023 03:11:33 07/31/2023 03:53:34 Lab Complete 07/31/2023 03:11:33 07/31/2023 03:53:34 Swab Complete 07/31/2023 03:11:33 07/31/2023 03:53:34 Patient Care Request 07/31/2023 03:21:59 Meds Admin Request 07/31/2023 03:21:59 Meds Admin Request 07/31/2023 03:23:59 ADDRESS: [address] [place] [phone] PHYS DOC NOTES: MEDICAL INFORMATION: Prescriptions Given: Medications to Continue with No Changes Other Medications acetaminophen (Tylenol Extra Strength 500 mg oral tablet) 2 Tablets By Mouth every 6 hours. acetaminophen-hydroc odone (Hendley 325 mg-5 mg oral tablet) 1 Tablets By Mouth every 8 hours as needed as needed for pain. aspirin (aspirin 81 mg Oral EC Tab) 1 Tablets By Mouth every day. atorvastatin (atorvastatin 10 mg Tab) 1 Tablets By Mouth at bedtime. carvedilol (carvedilol 6.25 mg Tab) 1 Tablets By Mouth 2 times a day. Hold for sbp 110 or less or HR 55 or less. cetirizine (cetirizine 10 mg Tab) 1 Tablets [...] Tablets By Mouth 2 times a day. mirabegron (Myrbetriq 50 mg oral tablet, extended release) TAKE 1 TABLET BY MOUTH EVERY MORNING. nitroglycerin (nitroglycerin 0.4 mg sublingual Tab) 1 Tablets Sublingual every 5 minutes as needed for chest pain. (more content not included)... Normal [facility] ED Note-Physicianon 07-31-19 ED Note-Physician Basic Information Time Seen: Queta DE JESUS, Mariela RodriguezEleni 07/30/2023 21:53 Chief Complaint weakness for 1 week. productive cough. generally ill. body aches. decreased oral intake. has tremors on arrival. trouble walking at home d/t weakness. hx UTIs, fibromyalgia, DM, arthritis and kidney disease History of Present Illness Patient is 78-year-old female with history of fibromyalgia, hypothyroidism, HLD, T2DM with neuropathy, CVA, dementia, restless leg syndrome that presents to the ED with daughter Irma and patient's for evaluation of generalized weakness. Both patient and her daughter are historian. Patient says that she has been fine. She is not sure why she is here. She does admit that she has some lower extremity pain. She denies chest pain, shortness of breath, abdominal pain, headache. States that patient has been feeling a little bit weaker than normal lately. She went to her house today and was walking her to and from the bathroom and patient got very tired and said she needed to sit down and stop. Usually she can make at this distance without having to stop. She uses a walker. Daughter says that every time this happens she gets a UTI. She denies any recent falls or injuries but patient has had falls in the past that required prolonged hospitalization. She also notes that mother has been complaining of being very tired lately. They talked to her repair cameraman who advised cutting back on her trazodone which they did this week. She also cut down on her mother's Lyrica from twice daily to nightly. Her fatigue has proved some however she is now complaining of more leg pain than she was. She does not use a CPAP. No one at home has been sick. She has constant dry cough. Says she does not feel patient is safe to be at home right now. She said that she is too unsteady on her feet and is a significant fall risk. Patient's cannot help her walk around the house. Review of Systems A 10 point review of systems is negative except as noted above. Medical and Surgical History: Reviewed and noted Social history: Lives at home her Substance use: Denies Physical Exam Vitals & Measurements T: 36.8 ?C(Oral) HR: 75(Peripheral) RR: 18 BP: 141/92 SpO2: 96% HT: 149.86 cm WT: 88.9 kg BMI: 39.58 Appearance: Elevated BMI. Nontoxic-appearing, alert and awake. Speaking in complete sentences. Calm. Cooperative. Vital signs reviewed, hypertensive otherwise WNL Skin: Warm, dry, intact. Thinning skin insistent with age Eyes: PERRL. Vision grossly intact. ENT: Buccal mucosa dry. Hearing decreased bilaterally Respiratory: Sounds diminished bilateral bases with no adventitious lung sounds. Cardiovascular: Hypertensive. RRR, no murmurs. 2+ symmetrical radial and dorsalis pedis pulses. Normal cap refill. Left calf circumference 40 cm right calf circumference 41.5 cm. Negative Merari bilaterally. Trace pedal edema. Abdomen/GI: Soft, nontender, nondistended. No guarding, rigidity, rebound tenderness. NABS x4. Neuro: Resting tremor. Alert and awake, speech Clear, cranial nerves grossly intact. Extremities: No deformity noted on exam. Patient spontaneously moves all 4 extremities. Medical Decision Making Limitations to history: Age, dementia Nursing Notes: Reviewed and utilized the nursing notes. Previous records reviewed: MDM: Patient is a 78-year-old female who presents to the ED for evaluation of generalized weakness and decreased mobility with increased risk of falls. Her abdomen is soft and nontender. Her bilateral lower extremities are slightly edematous and tender to palpation. Her breath sounds are diminished bilaterally without adventitious lung sounds. Will obtain labs, chest x-ray, UA. Does not want any Tylenol or medicine for pain at this time. I personally viewed labs. CBC without significant abnormalities. CMP shows creatinine 1.5 which is consistent with patient's baseline. Troponin normal. Lactate 2.4 however I do not suspect sepsis as she has normal vitals, normal white count. I personally viewed chest x-ray and concern for right middle lobe pneumonia. Will treat patient with 1 g IV ceftriaxone. Urine, BNP still in process. Patient signed out to ending provider pending UA. And for hospitalization Discussions with other providers: Chandra Marie Appropriate for: Hospitalization Attending note: Case discussed with hospitalist who agreed admit the patient to her service. Assessment/Plan 1. Pneumonia (J18.9: Pneumonia, unspecified organism) 2. Generalized weakness (R53.1: Weakness) Orders: ceftriaxone + Sodium Chloride 0.9% intravenous solution 50 mL, 1,000 mg = 1 EA, IV Piggyback, Once, Stop date 07/30/23 23:14:00 EST, STAT, Start date 07/30/23 23:14:00 EST, 100 mL/hr, Infuse over 30 minute(s), 07/30/23 23:14:00 EST Add on Test Medications Administered Given NS 500 ml Bolus, 500 mL, IV Disposition Plan Discharge Prescription List Prescriptions No active prescription medications Follow-up No qualifying data avail (more content not included)... Normal [facility] Comment on above: Result Comment: Elec tronically Signed By: Mariela Birhc PA-C\.br\Date and Time Signed: 07/30/23 23:16 EST\.br\Electronically Co-Signed By: Michele Marie DO\.br\Date and Time Co-Signed: 07/31/23 01:47 EST ED Patient Education Noteon 07-31-2023 ED Patient Education Note Normal [facility] ED Patient Summaryon 024 ED Patient Summary [place] [id number] Patient Discharge Instructions Person Information Name: NADIA PATTERSON Age: 78 Years Arrival Date: 07/30/2023 20:28:48 Discharge Diagnosis: 1:Generalized weakness; 2:Pneumonia; 3:Lactic acidosis; 4:Fibromyalgia; 5:Diabetes mellitus with polyneuropathy; 6:Hypothyroid; 7:CKD (chronic kidney disease) stage 3, GFR 30-59 ml/min; 8:Dementia Primary Care Physician: HARPAL HAYES MD Provider Information Primary Provider: Michele Marie DO [employer] Decorator:Mariela Birch PA-C The exam and treatment you received in the Emergency Department were for an urgent problem and are not intended as complete care. It is important that you follow up with a doctor, nurse practitioner, or physician?s coding assistant for ongoing care. If your symptoms [...] opioids can be used to help relieve vobfxnsq-ol-xjvebv pain and are often prescribed following a [...] be struggling with addiction, tell your health intensive care anaesthetist and ask for guidance or call [facility] National Helpline at [phone]-HGUG. (more content not included)... Normal [facility] Influenza A&B Agon Influenzae A Ag Negative Normal Negative [facility] Comment on above: Performed By: #### 1 [id number], [id number] ####[facility] [address] [place] [address] Influenzae B Ag Negative Normal Negative [facility] Comment on above: Result Comment: Test sensitivity and specificity vary for age group, specimen type, antigen types, and prevalence of disease. Test results must be evaluated in conjunction with other clinical data available to the physician. Individuals who received nasally administered Influenza A vaccine may have positive test results up to 3 days after vaccination. Performed By: #### 1 [id number], [id number] ####[facility] [address] [place] [address] Interdisciplinary Note - PTo n 07-31-2023 Interdisciplinary Note - PT Order for ED, pt to be transferred; will attempt PT eval on 08/01/23. Normal [facility] Lactic Acidon 07-31-2023 Lactic Acid Lvl 2.1 mmol/L Normal 0.5-2.2 [facility] Comment on above: Order Comment: Order added by EKS Rule. (FT_LACTIC_ACID_REFLEX) Adds reflex Lactic Acid 4 hours after initial if result is greater than or equal to 2.0. Performed By: #### 2 [id number] ####[facility] [address] [place] [address] MICRO OTHER TESTSOrdered By: Damion Grigsby on 07-31-2023 Influenzae A Ag Negative (07/31/23 3:32 AM) Normal Negative [facility] Man Sero Influenzae B Ag Negative 1 (07/31/23 3:32 AM) Normal Negative [facility] [place] Sero Comment on above: Interpretive Data: T [...] NEG Ctl Pass (07/31/23 3:32 AM) Normal [facility] Man Sero Rapid COV Int POS Ctl Pass (07/31/23 3:32 AM) Normal [facility] [place] [facility] SARS-CoV+SARS-CoV-2 (COVID-19) Ag IA.rapid Ql (Resp) Not Detected 6 (07/31/23 3:32 AM) Normal Not Detected [facility] [place] [facility] Comment on above: Interpretive Data: T he tracx Veritor System for Rapid Detection of SARS-CoV-2 [...] call Irma twice with no answer. Normal [facility] Rapid COVID Antigen (MC)on 07-31-2023 Rapid COV Int NEG Ctl Pass Normal [facility] Comment on above: Performed By: #### 1 [id number], [id number] ####[facility] [address] [place] [address] Rapid COV Int POS Ctl Pass Normal [facility] Comment on above: Performed By: #### 1 [id number], [id number] ####[facility] [address] [place] [address] SARS-CoV+SARS-CoV-2 (COVID-19) Ag IA.rapid Ql (Resp) Not detected Normal Not Detected [facility] Comment on above: Result Comment: The tracx Veritor? System for Rapid Detection of SARS-CoV-2 is [...] or revoked sooner. Performed By: #### 1 [id number], [id number] ####[facility] [address] [place] [address] Troponin 3 Hr.on 07-31-2023 Troponin 3.60 pg/mL Low 10.10-27.10 [facility] Comment on above: Result Comment: The 95% CI (Confidence Interval) PPV (Positive Predictive Value) for myocardial infarction in females is 38 pg/mL, in males 51 pg/mL. The results should be used in conjunction with clinical conditions of myocardial infarction. (Access High Sensitivity Troponin I Instructions For Use, Manjula Cecilia, January 2018) Performed By: #### 1 [id number] ####[facility] [address] [place] [address] Troponin 6 Hr.on 07-31-2023 Troponin 3.50 pg/mL Low 10.10-27.10 [facility] Comment on above: Result Comment: The 95% CI (Confidence Interval) PPV (Positive Predictive Value) for myocardial infarction in females is 38 pg/mL, in males 51 pg/mL. The results should be used in conjunction with clinical conditions of myocardial infarction. (Access High Sensitivity Troponin I Instructions For Use, [employer] January 2018) Performed By: #### 1 [id number] ####[facility] [address] [place] [address] Troponin 9 Hr.on 07-31-2023 Troponin 4.50 pg/mL Low 10.10-27.10 [facility] Comment on above: Result Comment: The 95% CI (Confidence Interval) PPV (Positive Predictive Value) for myocardial infarction in females is 38 pg/mL, in males 51 pg/mL. The results should be used in conjunction with clinical conditions of myocardial infarction. (Shutter Guardian High Sensitivity Troponin I Instructions For Use, [employer] January 2018) Performed By: #### 1 [id number] ####[address] [address] XR Chest Single Viewon 07-31 XR Chest Single View Exam Date/Time: 07/30/2023 21:01 EST Reason for Exam: Shortness of breath (SOB) Report [facility] [phone] IMPRESSION: There are no acute cardiopulmonary changes. CLINICAL HISTORY: Shortness of breath (SOB) EXAMINATION: XR Chest Single View COMPARISON: Chest x-ray from 12/02/2022 FINDINGS: The cardiomediastinal silhouette is unremarkable. The lungs are free of infiltrates effusions or consolidations. There are no acute osseous changes. Ordering Provider: Michele Marie FINAL REPORT Dictated: 07/31/2023 8:10 am Santos Garcia MD, V. Signed (Electronic Signature): 07/31/2023 8:10 am Signed by: Santos Garcia MD, V. Transcribed by: SHALOM Technologist: TED Technical Comments Radiation Dose: Ka,r in mGy = na DAP = na Normal [facility] BMPon 07-30-2023 Anion gap [Moles/Vol] 15 mmol/L Normal 6-16 [facility] Comment on above: Performed By: #### 2 267973, 23636548, 9744185, 7526783, 7451943, 67021346, 15483474 ####[facility] [address] [place] [address] BUN/Creat Ratio 13 No Units Normal 10-20 [facility] Comment on above: Performed By: #### 2 530431, 90579023, 1662298, 0078864, 1422705, 12442867, 75900079 ####[facility] [address] [place] [address] Calcium [Mass/Vol] 10.0 mg/dL Normal 8.9-11.1 [facility] Comment on above: Performed By: #### 2 549124, 62914209, 4239472, 1980618, 9192125, 51226986, 41686973 ####[facility] [address] [place] [address] Chloride [Moles/Vol] 101 mmol/L Normal 101-111 [facility] Comment on above: Performed By: #### 2 348817, 59947514, 5592070, 2838824, 1080239, 30686667, 81973734 ####[facility] [address] [place] [address] CO2 [Moles/Vol] 31 mmol/L Normal 21-31 [facility] Comment on above: Performed By: #### 2 508388, 31897321, 5296165, 1057846, 8751292, 21688653, 51723392 ####[facility] [address] [place] [address] Creatinine [Mass/Vol] 1.5 mg/dL High 0.5-1.3 [facility] Comment on above: Performed By: #### 2 721007, 99379788, 8951050, 0989231, 5155297, 82991138, 74530116 ####[facility] [address] [place] [address] Glucose [Mass/Vol] 140 mg/dL Normal 55-199 [facility] Comment on above: Performed By: #### 2 151142, 09900158, 6456715, 0882102, 9767465, 19995373, 94131344 ####[facility] [address] [place] [address] Potassium [Moles/Vol] 4.0 mmol/L Normal 3.5-5.3 [facility] Comment on above: Performed By: #### 2 107655, 77406290, 2402767, 9592974, 5832245, 02729570, 64384080 ####[facility] [address] [place] [address] Sodium [Moles/Vol] 143 mmol/L Normal 135-145 [facility] Comment on above: Performed By: #### 2 942552, 48468956, 7493075, 1689168, 9350679, 37956862, 59742762 ####[facility] [address] [place] [address] Urea nitrogen [Mass/Vol] 20 mg/dL Normal 5-21 [facility] Comment on above: Performed By: #### 2 049943, 57855284, 9274660, 8801876, 6977806, 22453962, 97941349 ####[facility] [address] [place] [address] BNPon 07-30-2023 Int Ctr BNP Pass Normal [facility] Comment on above: Performed By: #### 2 323180, 12214690, 2052915, 0204149, 5158827, 01859449, 38107423 ####[facility] [address] [place] [address] Natriuretic peptide B (Bld) [Mass/Vol] 114 pg/mL High 5-80 [facility] Comment on above: Performed By: #### 2 597484, 33620218, 6288373, 2318817, 1302106, 22739995, 31924957 ####[place] [address] [place] [address] CBC w/ Auto Diffon 4 Basophil Absolute 0.0 E9/L Normal 0.0-0.2 [facility] Comment on above: Performed By: #### 2 221243, 93179826, 5335668, 1295767, 6519074, 66579408, 58757960 ####[address] [address] Basophils/100 WBC (Bld) 0.9 % Normal 0.0-2.0 [facility] Comment on above: Performed By: #### 2 631206, 15336067, 6525315, 3405742, 1942101, 66783536, 18106880 ####[address] [address] Eos Absolute 0.2 E9/L Normal 0.0-0.5 [facility] Comment on above: Performed By: #### 2 460614, 58700125, 1560178, 6621672, 2744363, 75029093, 53071079 ####[address] [address] Eosinophils/100 WBC (Bld) 4.1 % Normal 0.0-8.0 [facility] Comment on above: Performed By: #### 2 987280, 72271491, 0078871, 3917559, 2635077, 29738130, 08862417 ####[address] [address] Erythrocyte distribution width (RBC) [Ratio] 14.7 % High 10.9-14.2 [facility] Comment on above: Performed By: #### 2 822445, 88385693, 9997314, 3221849, 3755571, 26651507, 55646528 ####[address] [address] Hematocrit (Bld) [Volume fraction] 38.0 % Normal 34.0-46.0 [facility] Comment on above: Performed By: #### 2 189538, 47512449, 8153232, 9560378, 6012223, 88819364, 35326368 ####[facility] [address] [place] [address] Hemoglobin (Bld) [Mass/Vol] 12.5 g/dL Normal 12.0-16.0 [facility] Comment on above: Performed By: #### 2 385491, 75016231, 3407208, 5577506, 1524218, 64586226, 31863676 ####[address] [address] Lymph Absolute 1.7 E9/L Normal 1.0-4.0 [facility] Comment on above: Performed By: #### 2 420403, 28527875, 6658347, 2919239, 8097272, 86034006, 96530352 ####[address] [address] Lymphocytes/100 WBC (Bld) 30.5 % Normal 14.0-50.0 [facility] Comment on above: Performed By: #### 2 936432, 86643198, 5434933, 9428959, 6156960, 66772402, 94616599 ####[address] [address] MCH (RBC) [Entitic mass] 29.2 pg Normal 27.0-34.0 [facility] Comment on above: Performed By: #### 2 364469, 87334752, 9768530, 3224720, 8531047, 34093779, 30780817 ####[address] [address] MCHC (RBC) [Mass/Vol] 32.9 g/dL Normal 31.4-36.0 [facility] Comment on above: Performed By: #### 2 680790, 03130223, 4571136, 7504223, 1241311, 17954630, 68508338 ####[facility] [address] [place] [address] MCV (RBC) [Entitic vol] 89.0 fL Normal 80.0-100.[address] [facility] Comment on above: Performed By: #### 2 717697, 83075364, 8485144, 3015323, 6471528, 33506014, 86981654 ####[address] [address] [place] Absolute 0.4 E9/L Normal 0.2-1.0 [facility] Comment on above: Performed By: #### 2 870132, 63394947, 3110917, 0565648, 2594557, 49136674, 77675011 ####[address] [address] Monocytes/100 WBC (Bld) 7.8 % Normal 4.0-14.[address] [facility] Comment on above: Performed By: #### 2 005298, 95941023, 2196718, 4635260, 1620146, 36210594, 29621678 ####[address] [address] Neutro Absolute 3.2 E9/L Normal 2.0-7.5 [facility] Comment on above: Performed By: #### 2 835727, 96680510, 7691556, 2075922, 1239999, 78674845, 08844015 ####[facility] [address] [place] [address] Neutro Auto 56.7 % Normal 36.0-75.0 [facility] Comment on above: Performed By: #### 2 962934, 87326221, 0879183, 4078676, 2475745, 06354046, 25015921 ####[facility] [address] [place] [address] Platelet 215.0 E9/L Normal 150.0-500.0 [facility] Comment on above: Performed By: #### 2 122861, 07835540, 6976668, 7891963, 4209175, 68053014, 65124051 ####[facility] [address] [place] [address] Platelet mean volume (Bld) [Entitic vol] 7.1 fL Normal 6.4-10.8 [facility] Comment on above: Performed By: #### 2 174323, 92054306, 1663799, 0151868, 5211407, 35857469, 27559136 ####[facility] [address] [place] [address] RBC 4.3 E12/L Normal 4.3-5.9 [facility] Comment on above: Performed By: #### 2 290764, 81574529, 6928174, 8192729, 4651917, 13337053, 26445580 ####[facility] [address] [place] [address] WBC 5.6 E9/L Normal 4.0-11.0 [facility] Comment on above: Performed By: #### 2 081797, 14481544, 4916774, 5905060, 1871785, 09468327, 32673021 ####[facility] [address] [place] [address] CHEMISTRYOrdered By: SYSTEM SYSTEM on 07-30-2023 Albumin [...] - 20 Remisol Chem CHEMISTRYOrdered By: Damion aguirreolanubia on 07-30-2023 Natriuretic peptide B (Bld) [Mass/Vol] 114 pg/mL High 5 - 80 pg/mL [facility] HemeManSS CHEMISTRYOrdered By: Yane BASSETT User on 07-30-2023 Glucose [Mass/Vol] 127 mg/dL High 55 - 99 mg/dL [facility] POC Subsection Comment on above: Result Comment: Michelle erickson RN/ POC Device SN [id number] 1 Invalid Interpretation Code [facility] POC Subsection POC User ID [id number] 1 Invalid Interpretation Code [facility] POC Subsection POC Username DREAD CHURCH Invalid Interpretation Code [facility] POC Subsection Capillary Glucose POCon 07-08 Glucose [Mass/Vol] 127 mg/dL High 55-99 [facility] Comment on above: Result Comment: Michelle erickson RN/ Performed By: #### 2 [id number] ####[facility] [address] [place] [address] Consent for Treatmenton 07-08 Consent for Treatment [id number] 40 [id number] #1.00TIFF Normal [facility] HEMATOLOGYOrdered By: SYSTEM SYSTEM on 07-30-2023 Basophil [...] Normal 80.0 - 100.0 fL Remisol Heme [place] Absolute 0.4 E9/L Normal 0.2 - 1.0 [...] Normal 4.0 - 11.0 E9/L Remisol Heme Hep Func Panelon 07-30-2023 Albumin [Mass/Vol] 4.1 g/dL Normal 3.3-5.0 [facility] Comment on above: Performed By: #### 2 232781, 89880768, 8534843, 8631885, 5893210, 72246116, 34782324 ####[facility] [address] [place] [address] Albumin/Globulin [Mass ratio] 1.4 {ratio} Normal 1.1-2.2 [facility] Comment on above: Performed By: #### 2 908026, 49338090, 0123208, 8538236, 8737760, 37255701, 58306089 ####[facility] [address] [place] [address] Alk Phos 83 Int._Unit/L Normal 21-98 [facility] Comment on above: Performed By: #### 2 724223, 61707501, 7968182, 5920522, 6693092, 19036458, 39312138 ####[facility] [address] [place] [address] ALT 9 Int._Unit/L Normal 6-46 [facility] Comment on above: Performed By: #### 2 179564, 86583196, 3380461, 9610279, 6666485, 92301333, 70702267 ####[facility] [address] [place] [address] AST 15 Int._Unit/L Normal 5-43 [facility] Comment on above: Performed By: #### 2 137815, 69155480, 1311876, 1748724, 9162927, 23222862, 98863292 ####[facility] [address] [place] [address] Bili Direct 0.1 mg/dL Normal 0.0-0.4 [facility] Comment on above: Performed By: #### 2 312607, 50305002, 7839399, 7911234, 5490030, 96961352, 89717588 ####[facility] [address] [place] [address] Bili Indirect 0.3 mg/dL Normal 0.1-0.9 [facility] Comment on above: Performed By: #### 2 709861, 82780647, 9758167, 6363448, 7303762, 92661673, 00727624 ####[address] [address] Bili Total 0.4 mg/dL Normal 0.0-1.1 [facility] Comment on above: Performed By: #### 2 224159, 42092728, 6281187, 6965274, 1520974, 31999598, 72438060 ####[address] [address] Globulin (S) [Mass/Vol] 3.0 g/dL Normal 1.4-4.0 [facility] Comment on above: Performed By: #### 2 357562, 35753303, 2019823, 1225510, 6886256, 38077902, 85982255 ####[address] [place] [address] Protein [Mass/Vol] 7.1 g/dL Normal 6.0-7.8 [facility] Comment on above: Performed By: #### 2 355156, 27076903, 3965865, 1628227, 3742179, 38547560, 21677665 ####[facility] [address] [place] [address] Lactic Acidon 07-30-2023 Lactic Acid Lvl 2.4 mmol/L High 0.5-2.2 [facility] Comment on above: Performed By: #### 2 611330, 13358572, 8750765, 5370535, 2264043, 71929732, 09674473 ####[facility] [address] [place] [address] No Panel InformationOrdered By: ANGPROCESSSERVER MICROBIOLOGY on 07-30-2023 Blood Culture Charcoal No growth at 2 da ys. Final to follow at 7 days. [facility] Pre-Arrival Noteon Pre-Arrival Note Pre-Arrival Summary Name: BELEN Current Date: 07/30/2023 20:30:20 EST Gender: Female Date of : Age: 78 Pre-Arrival Type: EMS ETA: 07/30/2023 20:45:00 EST Primary Care Physician: Presenting Problem: weakness/trouble walking Pre-Arrival User: Dread Castañeda RN Referring Source: Location: Completion Date/Time: 07/30/2023 00:00:00 [facility] Emergency Department Pre-Hospital Report Form Vital Signs: HR 81 BP 109/68 RR 16 98% RA BG 159 98.7 F Pre-Hospital Report: A/Ox4 feeling generally ill, weakness and trouble walking. Hx fibromyalgia, DM, and kidney issues Treatment in Route: failed IV access Response to Treatment: Misc. Issues: Normal [facility] Troponin 0 Hr.on 07-30-2023 Troponin 3.50 pg/mL Low 10.10-27.10 [facility] Comment on above: Result Comment: The 95% CI (Confidence Interval) PPV (Positive Predictive Value) for myocardial infarction in females is 38 pg/mL, in males 51 pg/mL. The results should be used in conjunction with clinical conditions of myocardial infarction. (Access High Sensitivity Troponin I Instructions For Use, Man[place], January 2018) Performed By: #### 2 [id number], [id number], [id number], [id number], [id number], [id number], [id number] ####[facility] [address] [place] [address] UA With Cult Reflexon 2023 Bacteria LM Ql (Urine sed) TRACE Normal Trace [facility] Comment on above: Performed By: #### 1 [id number] ####[facility] [address] [place] [address] Bilirubin Ql (U) Negative Normal Negative [facility] Comment on above: Performed By: #### 1 [id number] ####[address] [address] Clarity (U) CLEAR Normal Clear [facility] Comment on above: Performed By: #### 1 [id number] ####[address] [address] Color (U) YELLOW Normal Yellow [facility] Comment on above: Performed By: #### 1 [id number] ####[address] [address] Epithelial cells.squamous LM.HPF (Urine sed) [#/Area] 0-2 Normal 0-2 [facility] Comment on above: Performed By: #### 1 [id number] ####[facility] [address] [place] [address] Glucose Test strip (U) [Mass/Vol] Negative Normal Negative [facility] Comment on above: Performed By: #### 1 [id number] ####[address] [address] Hemoglobin Ql (U) Negative Normal Negative [facility] Comment on above: Performed By: #### 1 [id number] ####[facility] [address] [place] [address] Ketones (U) [Mass/Vol] Negative Normal Negative [facility] Comment on above: Performed By: #### 1 [id number] ####[facility] [address] [place] [address] Hermleigh.plasma/Hermleigh.R BC (Bld) [Mass ratio] 0-3 Normal 0-3 [facility] Comment on above: Performed By: #### 1 [id number] ####[facility] [address] [place] [address] Nitrite Ql (U) Negative Normal Negative [facility] Comment on above: Performed By: #### 1 [id number] ####[address] [place] [address] pH (U) 7.0 [pH] Invalid Interpretation Code 5.0-9.0 [facility] Comment on above: Performed By: #### 1 [id number] ####[address] [address] Protein (U) [Mass/Vol] Negative Normal Negative [facility] Comment on above: Performed By: #### 1 [id number] ####[address] [address] Specific gravity (U) [Rel density] 1.015 Invalid Interpretation Code 1.005-1.030 [facility] Comment on above: Performed By: #### 1 [id number] ####[facility] [address] [place] [address] Type of Urine collection method Clean Catch Normal [facility] Comment on above: Performed By: #### 1 [id number] ####[facility] [address] [place] [address] Urobilinogen Qn (U) 0.2 {Macie'U}/dL Normal 0.0-1.0 [facility] Comment on above: Performed By: #### 1 [id number] ####[address] [place] [address] WBC Auto Ql (U) Negative Normal Negative [facility] Comment on above: Performed By: #### 1 [id number] ####[facility] [address] [place] [address] WBC LM.HPF (Urine sed) [#/Area] 0-5 Normal 0-5 [facility] Comment on above: Performed By: #### 1 [id number] ####[facility] [address] [place] [address] URINALYSISOrdered By: Damion Grigsby on 07-30-2023 Bacteria LM Ql (Urine sed) Trace /HPF Normal Trace/HPF [facility] UA Auto SS Bilirubin Ql (U) Negative (07/30/23 10:50 PM) Normal Negative [facility] UA Auto SS Clarity (U) Clear (07/30/23 10:50 PM) Normal Clear [facility] UA Auto SS Color (U) Yellow (07/30/23 10:50 PM) Normal Yellow [facility] UA Auto SS Epithelial cells.squamous LM.HPF (Urine sed) [#/Area] 0-2 /HPF Normal 0-2/HPF [facility] UA Aut o SS Glucose Test strip (U) [Mass/Vol] Negative (07/30/23 10:50 PM) Normal Negative [facility] UA Auto SS Hemoglobin Ql (U) Negative (07/30/23 10:50 PM) Normal Negative [facility] UA Auto SS Ketones (U) [Mass/Vol] Negative (07/30/23 10:50 PM) Normal Negative [facility] UA Auto SS Hermleigh.plasma/Hermleigh.R BC (Bld) [Mass ratio] 0-3 /HPF Normal [...] Desc Clean Catch (07/30/23 10:50 PM) Normal [facility] UA Auto SS Urobilinogen Qn (U) 0.8053294 {Macie'U}/dL Normal 0.0 - 1.0 EU/dL [facility] UA Auto SS WBC Auto Ql (U) Negative (07/30/23 10:50 PM) Normal Negative [facility] UA Auto SS WBC LM.HPF (Urine sed) [#/Area] 0-5 /HPF Normal 0-5/HPF [facility] UA Auto SS eGFRon 07-30-2023 eGFR 35 mL/min/1.73 m2 Low >=59 [facility] Comment on above: Order Comment: Order added by Discern Expert. Performed By: #### 2 [id number], [id number], [id number], [id number], [id number] ####[facility] [address] [place] [address] CHEMISTRYOrdered By: Lab DANYELLE User on 12-17-2022 Glucose [Mass/Vol] 119 mg/dL High 55 - 99 mg/dL [facility] POC Subsection Comment on above: Result Comment: Yvonne jl Meter POC Device SN [id number] Invalid Interpretation Code [facility] POC Subsection POC User ID [id number] Invalid Interpretation Code [facility] POC Subsection POC Username EJ SIMS Invalid Interpretation Code [facility] POC Subsection CHEMISTRYOrdered By: Yane BASSETT User on 12-16-2022 Glucose [Mass/Vol] 155 mg/dL High 55 - 99 mg/dL [facility] POC Subsection Comment on above: Result Comment: Yvonne jl Meter POC Device SN [id number] Invalid Interpretation Code [facility] POC Subsection POC User ID [id number] Invalid Interpretation Code [facility] POC Subsection POC Username EJ SIMS Invalid Interpretation Code [facility] POC Subsection Glucose [Mass/Vol] 127 mg/dL High 55 - 99 mg/dL [facility] POC Subsection Comment on above: Result Comment: Yvonne jl Meter POC Device SN [id number] Invalid Interpretation Code [facility] POC Subsection POC User ID [id number] Invalid Interpretation Code [facility] POC Subsection POC Username OUSMANE HWANG Invalid Interpretation Code [facility] POC Subsection CHEMISTRYOrdered By: Kerry Maravilla on 12-16-2022 Albumin Elph (U) [Mass fraction] mg/dL Invalid Interpretation Code [facility] Remisol Creatinine (U) [Mass/Vol] 44.5 mg/dL Invalid Interpretation Code [facility] Remisol U Prot/Creat Ratio [facility] Invalid Interpretation Code 0.00 - 200.00 [...] 190 mg/dL Low 200 - 370 mg/dL [facility] Remisol Urate [Mass/Vol] 5.8 mg/dL Normal 2.2 - 7.4 mg/dL [facility] Remisol Urea nitrogen [Mass/Vol] 24 mg/dL High 5 - 21 mg/dL [facility] Remisol Urea nitrogen/Creatinine [Mass ratio] 17 mg/mg Normal 10 - 20 [facility] Remisol HEMATOLOGYOrdered By: Leanne Carrillo on 12-16-2022 Erythrocyte [...] 33.7 g/dL Normal 31.4 - 36.0 gm/dL [facility] HemeAutoSS MCV (RBC) [Entitic vol] 90.9 fL Normal 80.0 - 100.0 fL [facility] HemeAutoSS Platelet mean volume (Bld) [Entitic vol] 7.0 fL Normal 6.4 - 10.8 fL [facility]SS Platelets (Bld) [#/Vol] 264.0 E9/L Normal 150. 0 - 500.0 E9/L [facility] RBC (Bld) [#/Vol] 3.4 E12/L Low 4.3 - 5.9 E12/L [facility] WBC corrected for nucl RBC Auto (Bld) [#/Vol] 4.8 E9/L Normal 4.0 - 11.0 E9/L [facility] Laboratory - Microbiology an d Antimicrobial susceptibilityOrdered By: Jasmin Desai on 12-16-2022 Bacteria identified Cx Nom (U) >100,000 cfu/ml Streptococcus species 4,000 cfu/ml Mixed skin contaminants [facility] Testing Ordered By: Sherrie DomainUseroberto on 12-16-2022 Parathyrin.intact [Mass/Vol] 42 pg/mL Invalid Interpretation Code 15-65pg/mL [facility] SendOutsSS Comment on above: Result Comment: Perf ormed at: [facility] [address] [id number] PhD Jake Edwards URINALYSISOrdered By: Ghassan Salcido on 12-16-2022 Bacteria [...] AM) Normal Negative [facility] UA Auto SS Hermleigh.plasma/Hermleigh.R BC (Bld) [Mass ratio] 0-3 /HPF Normal [...] [facility] UA Auto SS Urobilinogen Qn (U) 0.1306444 {Macie'U}/dL Normal 0.0 - 1.0 EU/dL [facility] UA Auto SS WBC Auto Ql (U) 1+ *ABN* (12/16/22 7:32 AM) Invalid Interpretation Code Negative [facility] UA Auto SS WBC LM.HPF (Urine sed) [#/Area] /[HPF] Invalid Interpretation Code 0-5/HPF [facility] UA Auto SS URINALYSISOrdered By: Yomi daugherty on 12-10-2022 Bacteria LM Ql (Urine sed) Trace /HPF Normal Trace/HPF [facility] UA Auto SS Bilirubin Ql (U) Negative (12/10/22 1:43 PM) Normal Negative [facility] UA Auto SS Clarity (U) Clear (12/10/22 1:43 PM) Normal Clear [facility] UA Auto SS Color (U) Yellow (12/10/22 1:43 PM) Normal Yellow [facility] UA Auto SS Epithelial cells.squamous LM.HPF (Urine sed) [#/Area] 0-2 /HPF Normal 0-2/HPF [facility] UA Aut o SS Glucose Test strip (U) [Mass/Vol] Negative (12/10/22 1:43 PM) Normal Negative [facility] UA Auto SS Hemoglobin Ql (U) Negative (12/10/22 1:43 PM) Normal Negative [facility] UA Auto SS Ketones (U) [Mass/Vol] Negative (12/10/22 1:43 PM) Normal Negative [facility] UA Auto SS Hermleigh.plasma/Hermleigh.R BC (Bld) [Mass ratio] 0-3 /HPF Normal 0-3/HPF [facility] UA Au to SS Mucus Ql (Urine [...] Desc Clean Catch (12/10/22 1:43 PM) Normal [facility] UA Auto SS Urobilinogen Qn (U) 0.6893324 {Macie'U}/dL Normal 0.0 - 1.0 EU/dL [facility] UA Auto SS WBC Auto Ql (U) Negative (12/10/22 1:43 PM) Normal Negative [facility] UA Auto SS WBC LM.HPF (Urine sed) [#/Area] 0-5 /HPF Normal 0-5/HPF [facility] UA Auto SS AZTREONAM:SUSC:PT:ISOLATE:OR DQN:MICOrdered By: Jasmin Desai on 11-29-2022 Aztreonam YESENIA [Susc] >100,000 cfu/ml Escherichia coli [facility] Aztreonam YESENIA [Susc]Ordered By: Jasmin Desai on 11-29-2022 Escherichia coli Escherichia coli [facility] URINALYSISOrdered By: Yara Monroy on 11-29-2022 Bacteria [...] PM) Normal Negative [facility] UA Auto SS Hermleigh.plasma/Hermleigh.R BC (Bld) [Mass ratio] 0-3 /HPF Normal 0-3/HPF [facility] UA Au to SS Nitrite Ql (U) Positive *ABN* (11/29/22 3:46 PM) Invalid Interpretation Code Negative [facility] UA Auto SS pH (U) 5.5 *NA* (11/29/22 3:46 PM) Invalid Interpretation Code 5.0 - 9.0 [facility] UA Auto SS Protein (U) [Mass/Vol] Negative (11/29/22 3:46 PM) Normal Negative [facility] UA Auto SS Specific gravity (U) [Rel density] 1.010 *NA* (11/29/22 3:46 PM) Invalid Interpretation Code 1.005 - 1.030 [facility] UA Auto SS UA Spec Desc Clean Catch (11/29/22 3:46 PM) Normal [facility] UA Auto SS Urobilinogen Qn (U) 0.4647136 {Macie'U}/dL Normal 0.0 - 1.0 EU/dL [facility] UA Auto SS WBC Auto Ql (U) 1+ *ABN* (11/29/22 3:46 PM) Invalid Interpretation Code Negative [facility] UA Auto SS WBC LM.HPF (Urine sed) [#/Area] /[HPF] Invalid Interpretation Code 0-5/HPF [facility] UA Auto SS CULTURE URINEon 05-30-2022 CULTURE URINE Isolate 1 [...] F Trimethoprim/Sulfame thoxazole <=20 S F Normal [facility] Comment on above: Performed By: #### C MP, HSTROPN #### [facility] [address] [place] [address] Dr. Sahil Turk CBC AUTO DIFFon 05-27-2022 BASO # 0.0 103/ul Normal 0.0-0.1 [facility] Comment on above: Performed By: #### U RTPCR #### [facility] [address] [place] [address] Dr. Sahil Turk Basophils/100 WBC (Bld) 0.3 % Normal 0.2-2.0 [facility] Comment on above: Performed By: #### U RTPCR #### [facility] [address] [place] [address] Dr. Sahil Turk EO # 0.1 103/ul Normal 0.0-0.7 [facility] Comment on above: Performed By: #### U RTPCR #### [facility] [address] [place] [address] Dr. Sahil Turk Eosinophils/100 WBC (Bld) 0.5 % Critically low 0.9-7.0 [facility] Comment on above: Performed By: #### U RTPCR #### [facility] [address] [place] [address] Dr. Sahil Turk Erythrocyte distribution width (RBC) [Ratio] 14.1 % Normal 11.0-15.0 [facility] Comment on above: Performed By: #### U RTPCR #### [facility] [address] [place] [address] Dr. Sahil Turk Hematocrit (Bld) [Volume fraction] 38.6 % Normal 36.0-48.0 [facility] Comment on above: Performed By: #### U RTPCR #### [facility] [address] [place] [address] Dr. Sahil Turk Hemoglobin (Bld) [Mass/Vol] 12.4 g/dL Normal 12.0-16.0 [facility] Comment on above: Performed By: #### U RTPCR #### [facility] [address] [place] [address] Dr. Sahil Turk IG # 0.05 10e3/ul Critically high 0.00-0.03 [facility] Comment on above: Performed By: #### U RTPCR #### [facility] [address] [place] [address] Dr. Sahil Turk IG % 0.5 % Normal 0.0-0.5 [facility] Comment on above: Performed By: #### U RTPCR #### [facility] [address] [place] [address] Dr. Sahil Turk LYMPH # 2.1 103/ul Normal 1.2-3.8 [facility] Comment on above: Performed By: #### U RTPCR #### [facility] [address] [place] [address] Dr. Sahil Turk Lymphocytes/100 WBC (Bld) 19.2 % Critically low 20.5-60.0 [facility] Comment on above: Performed By: #### U RTPCR #### [facility] [address] [place] [address] Dr. Sahil Turk MANUAL DIFF REQ NO Normal [facility] Comment on above: Performed By: #### U RTPCR #### [facility] [address] [place] [address] Dr. Sahil Turk MCH (RBC) [Entitic mass] 29.5 pg Normal 26.7-34.0 [facility] Comment on above: Performed By: #### U RTPCR #### [facility] [address] [place] [address] Dr. Sahil Turk MCHC (RBC) [Mass/Vol] 32.1 g/dL Normal 29.9-35.2 [facility] Comment on above: Performed By: #### U RTPCR #### [facility] [address] [place] [address] Dr. Sahil Turk MCV (RBC) [Entitic vol] 91.9 fL Normal 81.0-99.0 [facility] Comment on above: Performed By: #### U RTPCR #### [facility] [address] [place] [address] Dr. Sahil Turk MONO # 0.5 103/ul Normal 0.3-0.8 [facility] Comment on above: Performed By: #### U RTPCR #### [facility] [address] [place] [address] Dr. Sahil Turk Monocytes/100 WBC (Bld) 4.6 % Normal 1.7-12.0 [facility] Comment on above: Performed By: #### U RTPCR #### [facility] [address] [place] [address] Dr. Sahil Turk NEUT # 8.3 103/ul Critically high 1.4-6.5 [facility] Comment on above: Performed By: #### U RTPCR #### [facility] [address] [place] [address] Dr. Sahil Turk Neutrophils/100 WBC (Bld) 74.9 % Normal 43.0-75.0 [facility] Comment on above: Performed By: #### U RTPCR #### [facility] [address] [place] [address] Dr. Sahil Turk Platelet mean volume (Bld) [Entitic vol] 9.3 fL Critically low 9.5-13.5 [facility] Comment on above: Performed By: #### U RTPCR #### [facility] [address] [place] [address] Dr. Sahil Turk PLT 222 103/ul Normal 150-450 [facility] Comment on above: Performed By: #### U RTPCR #### [facility] [address] [place] [address] Dr. Sahil Turk RBC 4.20 106/ul Normal 4.20-5.40 [facility] Comment on above: Performed By: #### U RTPCR #### [facility] [address] [place] [address] Dr. Sahil Turk WBC 11.0 103/ul Normal 4.0-11.0 [facility] Comment on above: Performed By: #### U RTPCR #### [facility] [address] [place] [address] Dr. Sahil Turk ER URINE PROFILEon 2 Bilirubin Ql (U) Negative Normal NEGATIVE [facility] Comment on above: Performed By: #### C MP, HSTROPN #### [facility] [address] [place] [address] Dr. Sahil Turk Clarity (U) CLEAR Normal CLEAR [facility] Comment on above: Performed By: #### C MP, HSTROPN #### [facility] [address] [place] [address] Dr. Sahil Turk Color (U) LT. YELLOW Normal YELLOW [facility] Comment on above: Performed By: #### C MP, HSTROPN #### [facility] [address] [address] [address] Sahil HAINES A micrscopic examination will be performed if indicated. Normal [facility] Comment on above: Performed By: #### C MP, HSTROPN #### [facility] [address] [place] [address] Dr. Sahil Turk Glucose Ql (U) Negative Normal NEGATIVE [facility] Comment on above: Performed By: #### C MP, HSTROPN #### [facility] [address] [place] [address] Dr. Sahil Turk Hemoglobin Ql (U) Negative Normal NEGATIVE [facility] Comment on above: Performed By: #### C MP, HSTROPN #### [facility] [address] [place] [address] Dr. Sahil Turk Ketones Ql (U) Negative Normal NEGATIVE [facility] Comment on above: Performed By: #### C MP, HSTROPN #### [facility] [address] [place] [address] Dr. Sahil Turk LEUKOCYTES SMALL Abnormal NEGATIVE [facility] Comment on above: Performed By: #### C MP, HSTROPN #### [facility] [address] [place] [address] Dr. Sahil Turk Nitrite Ql (U) Positive Abnormal NEGATIVE [facility] Comment on above: Performed By: #### C MP, HSTROPN #### [facility] [address] [place] [address] Dr. Sahil Turk pH (U) 7.0 [pH] Normal 5-9 [facility] Comment on above: Performed By: #### C MP, HSTROPN #### [facility] [address] [place] [address] Dr. Sahil Turk SPEC GRAVITY 1.010 Normal 1.005-<=1.0 25 [facility] Comment on above: Performed By: #### C MP, HSTROPN #### [facility] [address] [place] [address] Dr. Sahil Turk UA PROTEIN Negative Normal NEGATIVE/ TRACE [facility] Comment on above: Performed By: #### C JAYY, HSTROPN #### [facility] [address] [place] [address] Dr. Sahil Turk UR MICRO IND INDICATED Normal [facility] Comment on above: Performed By: #### C JAYY, HSTROPN #### [facility] [address] [place] [address] Dr. Sahil Turk Urobilinogen Qn (U) 0.2 {Macie'U}/dL Normal 0.2 - 1. 0 [facility] Comment on above: Performed By: #### C JAYY, HSTROPN #### [facility] [address] [place] [address] Dr. Sahil Turk PROF 14(COMP METB)on 022 Albumin [Mass/Vol] 3.5 g/dL Normal 3.4-5.0 [facility] Comment on above: Performed By: #### C JAYY HSTROPN #### [facility] [address] [place] [address] Dr. Sahil Turk Albumin/Globulin [Mass ratio] 0.9 {ratio} Normal [facility] Comment on above: Performed By: #### C JAYY, HSTROPN #### [facility] [address] [place] [address] Dr. Sahil Turk ALP [Catalytic activity/Vol] 81 U/L Normal 46-116 [facility] Comment on above: Performed By: #### C JAYY, HSTROPN #### [facility] [address] [place] [address] Dr. Sahil Turk ALT [Catalytic activity/Vol] 15 U/L Normal 14-59 [facility] Comment on above: Performed By: #### C JAYY, HSTROPN #### [facility] [address] [place] [address] Dr. Sahil Turk Anion gap [Moles/Vol] 9.7 mmol/L Normal [facility] Comment on above: Performed By: #### C JAYY, HSTROPN #### [facility] [address] [place] [address] Dr. Sahil Tukr AST [Catalytic activity/Vol] 20 U/L Normal 15-37 [facility] Comment on above: Performed By: #### C JAYY, HSTROPN #### [facility] [address] [place] [address] Dr. Sahil Turk Bilirubin [Mass/Vol] 0.5 mg/dL Normal 0.2-1.0 [facility] Comment on above: Performed By: #### C JAYY, HSTROPN #### [facility] [address] [address] [address] Sahil Turk Calcium [Mass/Vol] 9.5 mg/dL Normal 8.5-10.1 [facility] Comment on above: Performed By: #### C JAYY, HSTROPN #### [facility] [address] [place] [address] Dr. Sahil Turk Chloride [Moles/Vol] 100 mmol/L Normal 98-107 [facility] Comment on above: Performed By: #### C JAYY, HSTROPN #### [facility] [address] [place] [address] Dr. Sahil Turk CO2 [Moles/Vol] 36.1 mmol/L Critically high 21.0-32.0 [facility] Comment on above: Performed By: #### C JAYY, HSTROPN #### [facility] [address] [place] [address] Dr. Sahil Turk Creatinine [Mass/Vol] 1.67 mg/dL Critically high 0.55-1.02 [facility] Comment on above: Performed By: #### C MP, HSTROPN #### [facility] [address] [place] [address] Dr. Sahil Turk EGFR-AF EGYPTIAN 36 mL/min/1.73m2 Critically low >=60 [facility] Comment on above: Performed By: #### C MP, HSTROPN #### [facility] [address] [place] [address] Dr. Sahil Turk EGFR-NON AF EGYPTIAN 30 mL/min/1.73m2 Critically low >=60 [facility] Comment on above: Performed By: #### C MP, HSTROPN #### [facility] [address] [place] [address] Dr. Sahil Turk Globulin (S) [Mass/Vol] 3.8 g/dL Normal [facility] Comment on above: Performed By: #### C MP, HSTROPN #### [facility] [address] [place] [address] Dr. Sahil Turk Glucose [Mass/Vol] 181 mg/dL Critically high 74-106 [facility] Comment on above: Performed By: #### C MP, HSTROPN #### [facility] [address] [place] [address] Dr. Sahil Turk Potassium [Moles/Vol] 3.8 mmol/L Normal 3.5-5.1 [facility] Comment on above: Performed By: #### C MP, HSTROPN #### [facility] [address] [place] [address] Dr. Sahil Turk Protein [Mass/Vol] 7.3 g/dL Normal 6.4-8.2 [facility] Comment on above: Performed By: #### C MP, HSTROPN #### [facility] [address] [place] [address] Dr. Sahil Turk Sodium [Moles/Vol] 142 mmol/L Normal 136-145 [facility] Comment on above: Performed By: #### C MP, HSTROPN #### [facility] [address] [place] [address] Dr. Sahil Turk Urea nitrogen [Mass/Vol] 18.0 mg/dL Normal 7.0-18.0 [facility] Comment on above: Performed By: #### C MP, HSTROPN #### [facility] [address] [place] [address] Dr. Sahil Turk Urea nitrogen/Creatinine [Mass ratio] 10.8 mg/mg Normal [facility] Comment on above: Performed By: #### C MP, HSTROPN #### [facility] [address] [place] [address] Dr. Sahil Turk PROTIMEon 05-27-2022 INR Coag (PPP) [Relative time] 1.09 {INR} Normal [facility] Comment on above: Performed By: #### U RTPCR #### [facility] [address] [place] [address] Dr. Sahil Turk INR GUIDELINES SEE BELOW Normal [facility] Comment on above: Result Comment: LUIS ANGEL RED INR: 2.0 - 3.0 CONDITIONS NOT LISTED BELOW 2.5 - 3.5 FOR PROSTHETIC HEART VALVE REPLACEMENT 2.5 - 3.5 RECURRENT THROMBOSIS Performed By: #### U RTPCR #### [facility] [address] [place] [address] Dr. Sahil Turk PT Coag (PPP) [Time] 11.7 s Critically high 9.0-11.6 [facility] Comment on above: Performed By: #### U RTPCR #### [facility] [address] [place] [address] Dr. Sahil Turk PTTon 05-27-2022 aPTT Coag (Bld) [Time] 30.6 s Normal 22.3-36.2 [facility] Comment on above: Performed By: #### U RTPCR #### [facility] [address] [place] [address] Dr. Sahil Turk TROPONIN, HIGH SENSITIVITYon 05-27-2022 HSTROP 7.1 pg/mL Normal 4.0-51.3 [facility] Comment on above: Result Comment: CUT- OFF POINTS HAVE BEEN ESTABLISHED BASED ON THE FOURTH UNIVERSAL DEFINITIONS OF MYOCARDIAL INFARCTION. THE UPPER REFERENCE LIMIT (URL) OF TROPONIN, DEFINED THE 99TH PERCENTILE OF cTnI DISTRIBUTION IN A REFERENCE POPULATION, HAS BEEN CONFIRMED THE DECISION THRESHOLD FOR [place] DIAGNOSIS. Performed By: #### C MP, HSTROPN #### [facility] [address] [place] [address] Dr. Sahil Turk URINE MICROSCOPIC ONLYon BACTERIA LARGE Abnormal NONE SEEN [facility] Comment on above: Performed By: #### C MP, HSTROPN #### [facility] [address] [place] [address] Dr. Sahil Turk Bacteria identified Cx Nom (U) INDICATED Normal [facility] Comment on above: Performed By: #### C MP, HSTROPN #### [facility] [address] [place] [address] Dr. Sahil Turk CAST NONE SEEN Normal NONE SEEN [facility] Comment on above: Performed By: #### C MP, HSTROPN #### [facility] [address] [address] [address] Sahil Turk Crystals LM Nom (Urine sed) NONE SEEN Normal NONE SEEN [facility] Comment on above: Performed By: #### C MP, HSTROPN #### [facility] [address] [place] [address] Dr. Sahil Turk Epithelial cells LM Ql (Urine sed) RARE Normal NONE SEEN /RARE [facility] Comment on above: Performed By: #### C MP, HSTROPN #### [facility] [address] [place] [address] Dr. Sahil Turk MUCOUS NONE SEEN Normal NONE SEEN [facility] Comment on above: Performed By: #### C MP, HSTROPN #### [facility] [address] [place] [address] Dr. Sahil Turk RBC 0-2 Normal 0-2 [facility] Comment on above: Performed By: #### C MP, HSTROPN #### [facility] [address] [place] [address] Dr. Sahil Turk WBC 0-2 Abnormal NONE SEEN [facility] Comment on above: Performed By: #### C MP, HSTROPN #### [facility] [address] [place] [address] Dr. Sahil Turk XR CHEST 1 Von [...] by: EDGARD GOMEZ Date: 2022-05-27 21:31 Normal [facility] CULTURE URINEon 03-13-2022 CULTURE URINE Isolate 1 [...] F Trimethoprim/Sulfame thoxazole <=20 S F Normal [facility] Comment on above: Performed By: #### C JAYY HSTROPN #### [facility] [address] [place] [address] Dr. Sahil Turk BNPon 03-11-2022 Natriuretic peptide B (Bld) [Mass/Vol] 449.0 pg/mL Normal <=1,800.0 [facility] Comment on above: Performed By: #### U RTPCR #### [facility] [address] [place] [address] Dr. Sahil Turk CBC AUTO DIFFon 03-11-2022 BASO # 0.0 103/ul Normal 0.0-0.1 [facility] Comment on above: Performed By: #### C JAYY HSTROPN #### [facility] [address] [place] [address] Dr. Sahil Turk Basophils/100 WBC (Bld) 0.6 % Normal 0.2-2.0 [facility] Comment on above: Performed By: #### C JAYY, HSTROPN #### [facility] [address] [place] [address] Dr. Sahil Turk EO # 0.1 103/ul Normal 0.0-0.7 [facility] Comment on above: Performed By: #### C MP, HSTROPN #### [facility] [address] [place] [address] Dr. Sahil Turk Eosinophils/100 WBC (Bld) 2.8 % Normal 0.9-7.0 [facility] Comment on above: Performed By: #### C JAYY, HSTROPN #### [facility] [address] [place] [address] Dr. Sahil Turk Erythrocyte distribution width (RBC) [Ratio] 13.7 % Normal 11.0-15.0 [facility] Comment on above: Performed By: #### C JAYY, HSTROPN #### [facility] [address] [place] [address] Dr. Sahil Turk Hematocrit (Bld) [Volume fraction] 39.2 % Normal 36.0-48.0 [facility] Comment on above: Performed By: #### C JAYY, HSTROPN #### [facility] [address] [place] [address] Dr. Sahil Turk Hemoglobin (Bld) [Mass/Vol] 12.7 g/dL Normal 12.0-16.0 [facility] Comment on above: Performed By: #### C JAYY, HSTROPN #### [facility] [address] [place] [address] Dr. Sahil Turk IG # 0.01 10e3/ul Normal 0.00-0.03 [facility] Comment on above: Performed By: #### C MP, HSTROPN #### [facility] [address] [place] [address] Dr. Sahil Turk IG % 0.2 % Normal 0.0-0.5 [facility] Comment on above: Performed By: #### C MP, HSTROPN #### [facility] [address] [place] [address] Dr. Sahil Turk LYMPH # 1.9 103/ul Normal 1.2-3.8 [facility] Comment on above: Performed By: #### C MP, HSTROPN #### [facility] [address] [place] [address] Dr. Sahil Turk Lymphocytes/100 WBC (Bld) 37.8 % Normal 20.5-60.0 [facility] Comment on above: Performed By: #### C MP, HSTROPN #### [facility] [address] [place] [address] Dr. Sahil Turk MANUAL DIFF REQ NO Normal [facility] Comment on above: Performed By: #### C MP, HSTROPN #### [facility] [address] [place] [address] Dr. Sahil Turk MCH (RBC) [Entitic mass] 30.5 pg Normal 26.7-34.0 [facility] Comment on above: Performed By: #### C MP, HSTROPN #### [facility] [address] [place] [address] Dr. Sahil Turk MCHC (RBC) [Mass/Vol] 32.4 g/dL Normal 29.9-35.2 [facility] Comment on above: Performed By: #### C MP, HSTROPN #### [facility] [address] [place] [address] Dr. Sahil Turk MCV (RBC) [Entitic vol] 94.0 fL Normal 81.0-99.0 [facility] Comment on above: Performed By: #### C MP, HSTROPN #### [facility] [address] [place] [address] Dr. Sahil Turk MONO # 0.4 103/ul Normal 0.3-0.8 [facility] Comment on above: Performed By: #### C MP, HSTROPN #### [facility] [address] [place] [address] Dr. Sahil Turk Monocytes/100 WBC (Bld) 7.0 % Normal 1.7-12.0 [facility] Comment on above: Performed By: #### C MP, HSTROPN #### [facility] [address] [place] [address] Dr. Sahil Turk NEUT # 2.6 103/ul Normal 1.4-6.5 [facility] Comment on above: Performed By: #### C JAYY, HSTROPN #### [facility] [address] [place] [address] Dr. Sahil Turk Neutrophils/100 WBC (Bld) 51.6 % Normal 43.0-75.0 [facility] Comment on above: Performed By: #### C JAYY, HSTROPN #### [facility] [address] [place] [address] Dr. Sahil Turk Platelet mean volume (Bld) [Entitic vol] 9.9 fL Normal 9.5-13.5 [facility] Comment on above: Performed By: #### C JAYY, HSTROPN #### [facility] [address] [place] [address] Dr. Sahil Turk PLT 220 103/ul Normal 150-450 [facility] Comment on above: Performed By: #### C JYAY, HSTROPN #### [facility] [address] [place] [address] Dr. Sahil Turk RBC 4.17 106/ul Critically low 4.20-5.40 [facility] Comment on above: Performed By: #### C JAYY, HSTROPN #### [facility] [address] [place] [address] Dr. Sahil Turk WBC 5.0 103/ul Normal 4.0-11.0 [facility] Comment on above: Performed By: #### C MP, HSTROPN #### [facility] [address] [place] [address] Dr. Sahil Turk ER URINE PROFILEon 2 Bilirubin Ql (U) Negative Normal NEGATIVE [facility] Comment on above: Performed By: #### M G, RENAL, URIC #### [facility] [address] [place] [address] Dr. Sahil Turk Clarity (U) CLEAR Normal CLEAR [facility] Comment on above: Performed By: #### M G, RENAL, URIC #### [facility] [address] [place] [address] Dr. Sahil Turk Color (U) LT. YELLOW Normal YELLOW [facility] Comment on above: Performed By: #### M G, RENAL, URIC #### [facility] [address] [place] [address] Dr. Sahil HAINES A micrscopic examination will be performed if indicated. Normal [facility] Comment on above: Performed By: #### M G, RENAL, URIC #### [facility] [address] [place] [address] Dr. Sahil Turk Glucose Ql (U) Negative Normal NEGATIVE [facility] Comment on above: Performed By: #### M G, RENAL, URIC #### [facility] [address] [place] [address] Dr. Sahil Turk Hemoglobin Ql (U) Negative Normal NEGATIVE [facility] Comment on above: Performed By: #### M G, RENAL, URIC #### [facility] [address] [place] [address] Dr. Sahil Turk Ketones Ql (U) Negative Normal NEGATIVE [facility] Comment on above: Performed By: #### M G, RENAL, URIC #### [facility] [address] [place] [address] Dr. Sahil Turk LEUKOCYTES SMALL Abnormal NEGATIVE [facility] Comment on above: Performed By: #### M G, RENAL, URIC #### [facility] [address] [place] [address] Dr. Sahil Turk Nitrite Ql (U) Positive Abnormal NEGATIVE [facility] Comment on above: Performed By: #### M G, RENAL, URIC #### [facility] [address] [place] [address] Dr. Sahil Turk pH (U) 6.5 [pH] Normal 5-9 [facility] Comment on above: Performed By: #### M G, RENAL, URIC #### [facility] [address] [place] [address] Dr. Sahil Turk SPEC GRAVITY 1.010 Normal 1.005-<=1.0 25 [facility] Comment on above: Performed By: #### M G, RENAL, URIC #### [facility] [address] [place] [address] Dr. Sahil Turk UA PROTEIN Negative Normal NEGATIVE/ TRACE [facility] Comment on above: Performed By: #### M G, RENAL, URIC #### [facility] [address] [place] [address] Dr. Sahil Turk UR MICRO IND INDICATED Normal [facility] Comment on above: Performed By: #### M G, RENAL, URIC #### [facility] [address] [place] [address] Dr. Sahil Turk Urobilinogen Qn (U) 0.2 {Macie'U}/dL Normal 0.2 - 1. 0 [facility] Comment on above: Performed By: #### M G, RENAL, URIC #### [facility] [address] [place] [address] Dr. Sahil Turk LIPASEon 03-11-2022 Lipase [Catalytic activity/Vol] 40.0 U/L Critically low 73.0-393.0 [facility] Comment on above: Performed By: #### U RTPCR #### [facility] [address] [place] [address] Dr. Sahil Turk PROF 14(COMP METB)on 022 Albumin [Mass/Vol] 3.5 g/dL Normal 3.4-5.0 [facility] Comment on above: Performed By: #### M G, RENAL, URIC #### [facility] [address] [place] [address] Dr. Sahil Turk Albumin/Globulin [Mass ratio] 1.1 {ratio} Normal [facility] Comment on above: Performed By: #### M G, RENAL, URIC #### [facility] [address] [place] [address] Dr. Sahil Turk ALP [Catalytic activity/Vol] 69 U/L Normal 46-116 [facility] Comment on above: Performed By: #### M G, RENAL, URIC #### [facility] [address] [place] [address] Dr. Sahil Turk ALT [Catalytic activity/Vol] 18 U/L Normal 14-59 [facility] Comment on above: Performed By: #### M G, RENAL, URIC #### [facility] [address] [address] [address] Sahil Turk Anion gap [Moles/Vol] 10.6 mmol/L Normal [facility] Comment on above: Performed By: #### M G, RENAL, URIC #### [facility] [address] [address] [address] Sahil Turk AST [Catalytic activity/Vol] 21 U/L Normal 15-37 [facility] Comment on above: Performed By: #### M G, RENAL, URIC #### [facility] [address] [place] [address] Dr. Sahil Turk Bilirubin [Mass/Vol] 0.4 mg/dL Normal 0.2-1.0 [facility] Comment on above: Performed By: #### M G, RENAL, URIC #### [facility] [address] [place] [address] Dr. Sahil Turk Calcium [Mass/Vol] 9.6 mg/dL Normal 8.5-10.1 [facility] Comment on above: Performed By: #### M G, RENAL, URIC #### [facility] [address] [place] [address] Dr. Sahil Turk Chloride [Moles/Vol] 102 mmol/L Normal 98-107 [facility] Comment on above: Performed By: #### M G, RENAL, URIC #### [facility] [address] [place] [address] Dr. Sahil Turk CO2 [Moles/Vol] 33.1 mmol/L Critically high 21.0-32.0 [facility] Comment on above: Performed By: #### M G, RENAL, URIC #### [facility] [address] [place] [address] Dr. Sahil Turk Creatinine [Mass/Vol] 1.40 mg/dL Critically high 0.55-1.02 [facility] Comment on above: Performed By: #### M G, RENAL, URIC #### [facility] [address] [place] [address] Dr. Sahil Turk EGFR-AF EGYPTIAN 44 mL/min/1.73m2 Critically low >=60 [facility] Comment on above: Performed By: #### M G, RENAL, URIC #### [facility] [address] [address] [address] Sahil Turk EGFR-NON AF EGYPTIAN 36 mL/min/1.73m2 Critically low >=60 [facility] Comment on above: Performed By: #### M G, RENAL, URIC #### [facility] [address] [address] [address] Saihl Turk Globulin (S) [Mass/Vol] 3.3 g/dL Normal [facility] Comment on above: Performed By: #### M G, RENAL, URIC #### [facility] [address] [place] [address] Dr. Sahil Turk Glucose [Mass/Vol] 107 mg/dL Critically high 74-106 [facility] Comment on above: Performed By: #### M G, RENAL, URIC #### [facility] [address] [place] [address] Dr. Sahil Turk Potassium [Moles/Vol] 3.7 mmol/L Normal 3.5-5.1 [facility] Comment on above: Performed By: #### M G, RENAL, URIC #### [facility] [address] [place] [address] Dr. Sahil Turk Protein [Mass/Vol] 6.8 g/dL Normal 6.4-8.[address] [facility] Comment on above: Performed By: #### M G, RENAL, URIC #### [facility] [address] [place] [address] Dr. Sahil Turk Sodium [Moles/Vol] 142 mmol/L Normal 136-[address] [facility] Comment on above: Performed By: #### M G, RENAL, URIC #### [facility] [address] [place] [address] Dr. Sahil Turk Urea nitrogen [Mass/Vol] 16.0 mg/dL Normal 7.0-18.0 [facility] Comment on above: Performed By: #### M G, RENAL, URIC #### [facility] [address] [address] [address] Sahil Turk Urea nitrogen/Creatinine [Mass ratio] 11.4 mg/mg Normal [facility] Comment on above: Performed By: #### M G, RENAL, URIC #### [facility] [address] [address] [address] Sahil Turk PROTIMEon 03-11-2022 INR Coag (PPP) [Relative time] 1.03 {INR} Normal [facility] Comment on above: Performed By: #### C MP, HSTROPN #### [facility] [address] [place] [address] Dr. Sahil Turk INR GUIDELINES SEE BELOW Normal [facility] Comment on above: Result Comment: LUIS ANGEL RED INR: 2.0 - 3.0 CONDITIONS NOT LISTED BELOW 2.5 - 3.5 FOR PROSTHETIC HEART VALVE REPLACEMENT 2.5 - 3.5 RECURRENT THROMBOSIS Performed By: #### C MP, HSTROPN #### [facility] [address] [place] [address] Dr. Sahil Turk PT Coag (PPP) [Time] 11.1 s Normal 9.0-11.6 [facility] Comment on above: Performed By: #### C MP, HSTROPN #### [facility] [address] [place] [address] Dr. Sahil Turk PTTon 03-11-2022 aPTT Coag (Bld) [Time] 25.4 s Normal 22.3-36.2 [facility] Comment on above: Performed By: #### C MP, HSTROPN #### [facility] [address] [place] [address] Dr. Sahil Turk TROPONIN, HIGH SENSITIVITYon 03-11-2022 HSTROP 7.5 pg/mL Normal 4.0-51.3 [facility] Comment on above: Result Comment: CUT- OFF POINTS HAVE BEEN ESTABLISHED BASED ON THE FOURTH UNIVERSAL DEFINITIONS OF MYOCARDIAL INFARCTION. THE UPPER REFERENCE LIMIT (URL) OF TROPONIN, DEFINED THE 99TH PERCENTILE OF cTnI DISTRIBUTION IN A REFERENCE POPULATION, HAS BEEN CONFIRMED THE DECISION THRESHOLD FOR [place] DIAGNOSIS. Performed By: #### M G, RENAL, URIC #### [facility] [address] [place] [address] Dr. Sahil Turk HSTROP 7.9 pg/mL Normal 4.0-51.3 [facility] Comment on above: Result Comment: CUT- OFF POINTS HAVE BEEN ESTABLISHED BASED ON THE FOURTH UNIVERSAL DEFINITIONS OF MYOCARDIAL INFARCTION. THE UPPER REFERENCE LIMIT (URL) OF TROPONIN, DEFINED THE 99TH PERCENTILE OF cTnI DISTRIBUTION IN A REFERENCE POPULATION, HAS BEEN CONFIRMED THE DECISION THRESHOLD FOR [place] DIAGNOSIS. Performed By: #### U RTPCR #### [facility] [address] [place] [address] Dr. Sahil Turk URINE MICROSCOPIC ONLYon BACTERIA SMALL Abnormal NONE SEEN [facility] Comment on above: Performed By: #### M G, RENAL, URIC #### [facility] [address] [place] [address] Dr. Sahil Turk Bacteria identified Cx Nom (U) INDICATED Normal [facility] Comment on above: Performed By: #### M G, RENAL, URIC #### [facility] [address] [place] [address] Dr. Sahil Turk CAST NONE SEEN Normal NONE SEEN [facility] Comment on above: Performed By: #### M G, RENAL, URIC #### [facility] [address] [place] [address] Dr. Sahil Turk Crystals LM Nom (Urine sed) NONE SEEN Normal NONE SEEN [facility] Comment on above: Performed By: #### M G, RENAL, URIC #### [facility] [address] [place] [address] Dr. Sahil Turk Epithelial cells LM Ql (Urine sed) RARE Normal NONE SEEN /RARE [facility] Comment on above: Performed By: #### M G, RENAL, URIC #### [facility] [address] [place] [address] Dr. Sahil Turk MUCOUS NONE SEEN Normal NONE SEEN [facility] Comment on above: Performed By: #### M G, RENAL, URIC #### [facility] [address] [place] [address] Dr. Sahil Turk RBC 0-2 Normal 0-2 [facility] Comment on above: Performed By: #### M G, RENAL, URIC #### [facility] [address] [place], [place] [address] Dr. Sahil Turk WBC 5-10 Abnormal NONE SEEN [facility] Comment on above: Performed By: #### M G, RENAL, URIC #### [facility] [address] [place], [place] [address] Dr. Sahil Turk XR CHEST 1 Von [...] HAWK MUNGUIA Date: 2022-03-11 14:27 Normal [facility] CT CSPINE WO CONon 2 CT CSPINE [...] thyroid noted incidentally. Electronically authenticated by: LEISA SALGUEROH Date: 2022-02-22 08:[address] [facility] CT HEAD WO CONon 02-21-2022 CT [...] by: ANDRADE LEWIS Date: 2022-02-21 16:[address] [facility] [address] LSPINE WO CONon 2 CT LSPINE WO CON EXAMINATION: CT LSPINE WO CON, 02/21/2022, 3:54 PM EDT HISTORY: Pain COMPARISON: None. TECHNIQUE: CT of the lumbar spine was performed without IV contrast. CT dose reduction technique was used, including Automated Exposure Control. 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 MINERALIZATION: Probable mild osteopenia. [...] by: LINDA MCDANIEL Date: 2022-02-21 17:26 Normal [facility] XR HIP LT 2 3V W [...] by: ANDRADE LEWIS Date: 2022-02-21 16:51 Normal [facility] Progress Noteson 02-18-2022 [employer] Authentication Interface Message Text EMERGENCY TRIAGE, TREAT AND TRANSPORT (ET3) DOCUMENTATION OF TELEHEALTH VISIT Date / Time: 01/08/2022 / 0345am Name: Suhas Patterson : 1945 SSN: [id number] EMS Agency: [facility] [x] Verbal consent obtained [] [...] Completed by: Madai Webb MD Normal [facility] ECHOCARDIO M/2D COMPLETEon 0 01-06-2022 ECHOCARDIO M/2D COMPLETE Patient: NADIA PATTERSON Exam Date: 01/06/2022 : 1945 Gender:F Ordering : MEI DAS Admission #: [id number] Family : DR HARPAL HAYES M.D. Order #: [id number] CLICK HERE TO VIEW EXAM ECHOCARDIOGRAM REPORT [...] (Antegrade Flow): 1.18 m/s AoV Area (Peak Jocy): 2.29 cm2, 2.29 cm2 Peak Velocity(Antegrade Flow): 1.18 m/s Peak Gradient(Antegrade Flow): 5.58 mm[Hg] Tricuspid Valve Peak Velocity (Regurgitant Flow): 2.86 m/s, 2.36 m/s, 2.97 m/s Peak Velocity: 0.63 m/s Pulmonic Valve PV Max Jocy (0.6 - 0.9 m per sec): 0.83 m/s PV Max Gradient: 2.73 mm[Hg] Right Atrium Dictated by: Thomas Herrera M.D. on 01/06/2022 at 17:11 Approved by: Thomas Herrera M.D. on 01/06/2022 at 17:18 Normal [facility] PTH INTACTon 12-11-2021 PTH, Intact 31 pg/mL Normal 15-65 [facility] Comment on above: Performed By: #### C MP, HSTROPN #### [facility] [address] [place] [address] Dr. Sahil Turk FERRITINon 12-10-2021 Ferritin [Mass/Vol] 53.0 ng/mL Normal 8.0-252.0 [facility] Comment on above: Performed By: #### C MP, HSTROPN #### [facility] [address] [place] [address] Dr. Sahil Turk HEMOGRAM AND PLATELon 2021 Hematocrit (Bld) [Volume fraction] 38.4 % Normal 36.0-48.0 [facility] Comment on above: Performed By: #### M G, RENAL, URIC #### [facility] [address] [place] [address] Dr. Sahil Turk Hemoglobin (Bld) [Mass/Vol] 12.5 g/dL Normal 12.0-16.0 [facility] Comment on above: Performed By: #### M G, RENAL, URIC #### [facility] [address] [place] [address] Dr. Sahil Turk MCH (RBC) [Entitic mass] 29.4 pg Normal 26.7-34.0 [facility] Comment on above: Performed By: #### M G, RENAL, URIC #### [facility] [address] [place] [address] Dr. Sahil Turk MCHC (RBC) [Mass/Vol] 32.6 g/dL Normal 29.9-35.2 [facility] Comment on above: Performed By: #### M G, RENAL, URIC #### [facility] [address] [address] [address] Sahil Turk MCV (RBC) [Entitic vol] 90.4 fL Normal 81.0-99.0 [facility] Comment on above: Performed By: #### M G, RENAL, URIC #### [facility] [address] [address] [address] Sahil Turk PLT 263 103/ul Normal 150-450 [facility] Comment on above: Performed By: #### M G, RENAL, URIC #### [facility] [address] [address] [address] Sahil Turk RBC 4.25 106/ul Normal 4.20-5.40 [facility] Comment on above: Performed By: #### M G, RENAL, URIC #### [facility] [address] [address] [address] Sahil Turk WBC 7.1 103/ul Normal 4.0-11.0 [facility] Comment on above: Performed By: #### M G, RENAL, URIC #### [facility] [address] [address] [address] Sahil Turk IRON AND TIBCon 12-10-2021 % SATURATION 20.3 % Normal [facility] Comment on above: Performed By: #### C MP, HSTROPN #### [facility] [address] [address] [address] Sahil Turk Iron [Mass/Vol] 61.0 ug/dL Normal 50.0-170.0 [facility] Comment on above: Performed By: #### C MP, HSTROPN #### [facility] [address] [address] [address] Sahil Turk TIBC DIRECT 300.0 ug/dL Normal 250.0-450.0 [facility] Comment on above: Performed By: #### C MP, HSTROPN #### [facility] [address] [address] [address] Sahil Turk MAGNESIUMon 12-10-2021 Magnesium [Mass/Vol] 1.7 mg/dL Critically low 1.8-2.4 [facility] Comment on above: Performed By: #### M G, RENAL, URIC #### [facility] [address] [address] [address] Sahil Turk RENAL FUNCTION PANELon 12-10 Albumin [Mass/Vol] 3.7 g/dL Normal 3.4-5.0 [facility] Comment on above: Performed By: #### M G, RENAL, URIC #### [facility] [address] [address] [address] Sahil Turk Calcium [Mass/Vol] 9.6 mg/dL Normal 8.5-10.[address] [facility] Comment on above: Performed By: #### M G, RENAL, URIC #### [facility] [address] [place] [address] Dr. Sahil Turk Chloride [Moles/Vol] 102 mmol/L Normal 98-107 [facility] Comment on above: Performed By: #### M G, RENAL, URIC #### [facility] [address] [place] [address] Dr. Sahil Turk CO2 [Moles/Vol] 28.3 mmol/L Normal 21.0-32.0 [facility] Comment on above: Performed By: #### M G, RENAL, URIC #### [facility] [address] [place] [address] Dr. Sahil Turk Creatinine [Mass/Vol] 1.42 mg/dL Critically high 0.55-1.02 [facility] Comment on above: Performed By: #### M G, RENAL, URIC #### [facility] [address] [place] [address] Dr. Sahil Turk EGFR-AF EGYPTIAN 43 mL/min/1.73m2 Critically low >=60 [facility] Comment on above: Performed By: #### M G, RENAL, URIC #### [facility] [address] [place] [address] Dr. Sahil Turk EGFR-NON AF EGYPTIAN 36 mL/min/1.73m2 Critically low >=60 [facility] Comment on above: Performed By: #### M G, RENAL, URIC #### [facility] [address] [address] [address] Sahil Turk Glucose [Mass/Vol] 112 mg/dL Critically high 74-106 [facility] Comment on above: Performed By: #### M G, RENAL, URIC #### [facility] [address] [address] [address] Sahil Turk Phosphate [Mass/Vol] 3.4 mg/dL Normal 2.6-4.7 [facility] Comment on above: Performed By: #### M G, RENAL, URIC #### [facility] [address] [address] [address] Sahil Turk Potassium [Moles/Vol] 3.9 mmol/L Normal 3.5-5.1 [facility] Comment on above: Performed By: #### M G, RENAL, URIC #### [facility] [address] [address] [address] Sahil Turk Sodium [Moles/Vol] 140 mmol/L Normal 136-145 [facility] Comment on above: Performed By: #### M G, RENAL, URIC #### [facility] [address] [address] [address] Sahil Turk Urea nitrogen [Mass/Vol] 29.0 mg/dL Critically high 7.0-18 .0 [facility] Comment on above: Performed By: #### M G, RENAL, URIC #### [facility] [address] [address] [address] Sahil Turk UA RANDOM W/MICROSCOPICon BACTERIA NONE SEEN Normal NONE SEEN [facility] Comment on above: Performed By: #### M G, RENAL, URIC #### [facility] [address] [address] [address] Sahil Turk Bilirubin Ql (U) Negative Normal NEGATIVE [facility] Comment on above: Performed By: #### M G, RENAL, URIC #### [facility] [address] [address] [address] Sahil Turk CAST NONE SEEN Normal NONE SEEN [facility] Comment on above: Performed By: #### M G, RENAL, URIC #### [facility] [address] [address] [address] Sahil Turk Clarity (U) CLEAR Normal CLEAR [facility] Comment on above: Performed By: #### M G, RENAL, URIC #### [facility] [address] [place] [address] Dr. Sahil Turk Color (U) LT. YELLOW Normal YELLOW [facility] Comment on above: Performed By: #### M G, RENAL, URIC #### [facility] [address] [address] [address] Sahil Turk Crystals LM Nom (Urine sed) NONE SEEN Normal NONE SEEN [facility] Comment on above: Performed By: #### M G, RENAL, URIC #### [facility] [address] [place] [address] Dr. Sahil Turk Epithelial cells LM Ql (Urine sed) NONE SEEN Normal NONE SEEN /RARE [facility] Comment on above: Performed By: #### M G, RENAL, URIC #### [facility] [address] [place] [address] Dr. Sahil Turk Glucose Ql (U) Negative Normal NEGATIVE [facility] Comment on above: Performed By: #### M G, RENAL, URIC #### [facility] [address] [place] [address] Dr. Sahil Turk Hemoglobin Ql (U) Negative Normal NEGATIVE [facility] Comment on above: Performed By: #### M G, RENAL, URIC #### [facility] [address] [address] [address] Sahil Turk Ketones Ql (U) Negative Normal NEGATIVE [facility] Comment on above: Performed By: #### M G, RENAL, URIC #### [facility] [address] [place] [address] Dr. Sahil Turk LEUKOCYTES Negative Normal NEGATIVE [facility] Comment on above: Performed By: #### M G, RENAL, URIC #### [facility] [address] [place] [address] Dr. Sahil Turk MUCOUS NONE SEEN Normal NONE SEEN [facility] Comment on above: Performed By: #### M G, RENAL, URIC #### [facility] [address] [address] [address] Sahil Turk Nitrite Ql (U) Negative Normal NEGATIVE [facility] Comment on above: Performed By: #### M G, RENAL, URIC #### [facility] [address] [address] [address] Sahil Turk pH (U) 7.0 [pH] Normal 5-9 [facility] Comment on above: Performed By: #### M G, RENAL, URIC #### [facility] [address] [address] [address] Sahil Turk RBC NONE SEEN Abnormal 0-2 [facility] Comment on above: Performed By: #### M G, RENAL, URIC #### [facility] [address] [place] [address] Dr. Sahil Turk SPEC GRAVITY 1.010 Normal 1.005-<=1.0 25 [facility] Comment on above: Performed By: #### M G, RENAL, URIC #### [facility] [address] [place] [address] Dr. Sahil Turk UA PROTEIN Negative Normal NEGATIVE/ TRACE [facility] Comment on above: Performed By: #### M G, RENAL, URIC #### [facility] [address] [place] [address] Dr. Sahil Turk Urobilinogen Qn (U) 0.2 {Macie'U}/dL Normal 0.2 - 1. 0 [facility] Comment on above: Performed By: #### M G, RENAL, URIC #### [facility] [address] [place] [address] Dr. Sahil Turk WBC NONE SEEN Normal NONE SEEN [facility] Comment on above: Performed By: #### M G, RENAL, URIC #### [facility] [address] [place] [address] Dr. Sahil Turk URIC ACID SERUMon 12-10-2021 Urate [Mass/Vol] 6.6 mg/dL Critically high 2.6-6.0 [facility] Comment on above: Performed By: #### M G, RENAL, URIC #### [facility] [address] [address] [address] Sahil Turk URINE T PROTEIN CREAT RATIOo n 12-10-2021 UR TOTAL PROTEIN <6.0 Normal <=12.0 [facility] Comment on above: Performed By: #### U RTPCR #### [facility] [address] [address] [address] Sahil Turk URINE CREAT <13.00 Critically low 20.00-300.0 0 [facility] Comment on above: Performed By: #### U RTPCR #### [facility] [address] [address] [address] Sahil Turk VITAMIN D 25 OHon 12-10-2021 VIT D 25-OH 91.7 ng/mL Normal [facility] Comment on above: Performed By: #### C MP, HSTROPN #### [facility] [address] [place] [address] Dr. Sahil Turk VIT D RANGES SEE BELOW Normal [facility] Comment on above: Result Comment: <20 ng/mL Vit D deficient 20 - <30 ng/mL Vit D insufficient 30 - 100 ng/mL Vit D sufficient >100 ng/mL Potential Toxicity Performed By: #### C JAYY, HSTROPN #### [facility] [address] [place] [address] Dr. Sahil Turk US KEVIN DOP LEG [...] by: LINDA REED Date: 2021-11-16 16:33 Normal [facility] FERRITINon 06-13-2021 Ferritin [Mass/Vol] 44 ng/mL Normal 15-150 [facility] Comment on above: Performed By: #### U RTPCR #### [facility] [address] [address] [address] Sahil Turk PTH INTACTon 06-13-2021 PTH, Intact 53 pg/mL Normal 15-65 [facility] Comment on above: Performed By: #### P THINT #### [facility] [address] [place] [address] Dr. Sahil Turk VIT D 25-OH [facility] 2021 Vitamin D, 25-Hydroxy 50.5 ng/mL Normal 30.0-100.0 [facility] Comment on above: Result Comment: Barbie min D deficiency has been defined by the [place] of [employer] and an Endocrine Society practice guideline as a level of serum 25-OH vitamin D less than 20 ng/mL (1,2). The Endocrine Society went on to further define vitamin D insufficiency as a level between 21 and 29 ng/mL (2). 1. IOM ([place] [employer]). 2010. Dietary reference intakes for calcium and D. [place]: The National Academies Press. 2. Benjamín MF, Vikram [place], Kira HERNANDEZ, et al. Evaluation, treatment, and prevention of vitamin D deficiency: an Endocrine Society clinical practice guideline. JCEM. 2010; 96(7):1911-30. Performed By: #### M G, RENAL, URIC #### [facility] [address] [place] [address] Dr. Sahil Turk HEMOGRAM AND PLATELon 2021 Hematocrit (Bld) [Volume fraction] 37.7 % Normal 36.0-48.0 [facility] Comment on above: Performed By: #### M G, RENAL, URIC #### [facility] [address] [place] [address] Dr. Sahil Turk Hemoglobin (Bld) [Mass/Vol] 12.2 g/dL Normal 12.0-16.0 [facility] Comment on above: Performed By: #### M G, RENAL, URIC #### [facility] [address] [place] [address] Dr. Sahil Turk MCH (RBC) [Entitic mass] 29.9 pg Normal 26.7-34.0 [facility] Comment on above: Performed By: #### M G, RENAL, URIC #### [facility] [address] [address] [address] Sahil Turk MCHC (RBC) [Mass/Vol] 32.4 g/dL Normal 29.9-35.2 [facility] Comment on above: Performed By: #### M G, RENAL, URIC #### [facility] [address] [address] [address] Sahil Turk MCV (RBC) [Entitic vol] 92.4 fL Normal 81.0-99.0 [facility] Comment on above: Performed By: #### M G, RENAL, URIC #### [facility] [address] [address] [address] Sahil Turk PLT 246 103/ul Normal 150-450 [facility] Comment on above: Performed By: #### M G, RENAL, URIC #### [facility] [address] [place] [address] Dr. Sahil Turk RBC 4.08 106/ul Critically low 4.20-5.40 [facility] Comment on above: Performed By: #### M G, RENAL, URIC #### [facility] [address] [address] [address] Sahil Turk WBC 5.7 103/ul Normal 4.0-11.0 [facility] Comment on above: Performed By: #### M G, RENAL, URIC #### [facility] [address] [address] [address] Sahil Turk IRON AND TIBCon 06-12-2021 % SATURATION 18.3 % Normal [facility] Comment on above: Performed By: #### U RTPCR #### [facility] [address] [address] [address] Sahil Turk Iron [Mass/Vol] 54.0 ug/dL Normal 37.0-170.0 [facility] Comment on above: Performed By: #### U RTPCR #### [facility] [address] [place] [address] Dr. Sahil Turk TIBC DIRECT 295.0 ug/dL Normal 261.0-497.0 [facility] Comment on above: Performed By: #### U RTPCR #### [facility] [address] [address] [address] Sahil Turk MAGNESIUMon 06-12-2021 Magnesium [Mass/Vol] 1.9 mg/dL Normal 1.6-2.3 [facility] Comment on above: Performed By: #### R ENAL, URIC, MG #### [facility] [address] [place] [address] Dr. Sahil Turk RENAL FUNCTION PANELon 06-12 Albumin [Mass/Vol] 3.7 g/dL Normal 3.5-5.0 [facility] Comment on above: Performed By: #### R ENAL, URIC, MG #### [facility] [address] [place] [address] Dr. Sahil Turk Calcium [Mass/Vol] 9.7 mg/dL Normal 8.4-10.[address] [facility] Comment on above: Performed By: #### R ENAL, URIC, MG #### [facility] [address] [place] [address] Dr. Sahil Turk Chloride [Moles/Vol] 103 mmol/L Normal 98-107 [facility] Comment on above: Performed By: #### R ENAL, URIC, MG #### [facility] [address] [place] [address] Dr. Sahil Turk CO2 [Moles/Vol] 32.0 mmol/L Critically high 22.0-30.0 [facility] Comment on above: Performed By: #### R ENAL, URIC, MG #### [facility] [address] [place] [address] Dr. Sahil Turk Creatinine [Mass/Vol] 1.42 mg/dL Critically high 0.52-1.04 [facility] Comment on above: Performed By: #### R ENAL, URIC, MG #### [facility] [address] [place] [address] Dr. Sahil Turk EGFR-AF EGYPTIAN 43 mL/min/1.73m2 Critically low >=60 [facility] Comment on above: Performed By: #### R ENAL, URIC, MG #### [facility] [address] [place] [address] Dr. Sahil Turk EGFR-NON AF EGYPTIAN 36 mL/min/1.73m2 Critically low >=60 [facility] Comment on above: Performed By: #### R ENAL, URIC, MG #### [facility] [address] [place] [address] Dr. Sahil Turk Glucose [Mass/Vol] 101 mg/dL Normal 74-106 [facility] Comment on above: Performed By: #### R ENAL, URIC, MG #### [facility] [address] [place] [address] Dr. Sahil Turk Phosphate [Mass/Vol] 3.3 mg/dL Normal 2.5-4.5 [facility] Comment on above: Performed By: #### R ENAL, URIC, MG #### [facility] [address] [place] [address] Dr. Sahil Turk Potassium [Moles/Vol] 4.1 mmol/L Normal 3.4-5.0 [facility] Comment on above: Performed By: #### R ENAL, URIC, MG #### [facility] [address] [place] [address] Dr. Sahil Turk Sodium [Moles/Vol] 142 mmol/L Normal 137-145 [facility] Comment on above: Performed By: #### R ENAL, URIC, MG #### [facility] [address] [address] [address] Sahil Turk Urea nitrogen [Mass/Vol] 19.0 mg/dL Critically high 7.0-17 .0 [facility] Comment on above: Performed By: #### R ENAL, URIC, MG #### [facility] [address] [place] [address] Dr. Sahil Turk UA RANDOM W/MICROSCOPICon BACTERIA LARGE Abnormal NONE SEEN [facility] Comment on above: Performed By: #### M G, RENAL, URIC #### [facility] [address] [place] [address] Dr. Sahil Turk Bilirubin Ql (U) Negative Normal NEGATIVE [facility] Comment on above: Performed By: #### M G, RENAL, URIC #### [facility] [address] [address] [address] Sahil Turk CAST NONE SEEN Normal NONE SEEN [facility] Comment on above: Performed By: #### M G, RENAL, URIC #### [facility] [address] [address] [address] Sahil Turk Clarity (U) SL CLOUDY Abnormal CLEAR [facility] Comment on above: Performed By: #### M G, RENAL, URIC #### [facility] [address] [address] [address] Sahil Turk Color (U) LT. YELLOW Normal YELLOW [facility] Comment on above: Performed By: #### M G, RENAL, URIC #### [facility] [address] [place] [address] Dr. Sahil Turk Crystals LM Nom (Urine sed) NONE SEEN Normal NONE SEEN [facility] Comment on above: Performed By: #### M G, RENAL, URIC #### [facility] [address] [place] [address] Dr. Sahil Turk Epithelial cells LM Ql (Urine sed) RARE Normal NONE SEEN /RARE [facility] Comment on above: Performed By: #### M G, RENAL, URIC #### [facility] [address] [place] [address] Dr. Sahil Turk Glucose Ql (U) Negative Normal NEGATIVE [facility] Comment on above: Performed By: #### M G, RENAL, URIC #### [facility] [address] [address] [address] Sahil Turk Hemoglobin Ql (U) Negative Normal NEGATIVE [facility] Comment on above: Performed By: #### M G, RENAL, URIC #### [facility] [address] [address] [address] Sahil Turk Ketones Ql (U) Negative Normal NEGATIVE [facility] Comment on above: Performed By: #### M G, RENAL, URIC #### [facility] [address] [address] [address] Sahil Turk LEUKOCYTES SMALL Abnormal NEGATIVE [facility] Comment on above: Performed By: #### M G, RENAL, URIC #### [facility] [address] [address] [address] Sahil Turk MUCOUS NONE SEEN Normal NONE SEEN [facility] Comment on above: Performed By: #### M G, RENAL, URIC #### [facility] [address] [address] [address] Sahil Turk Nitrite Ql (U) Positive Abnormal NEGATIVE [facility] Comment on above: Performed By: #### M G, RENAL, URIC #### [facility] [address] [place] [address] Dr. Sahil Turk pH (U) 8.0 [pH] Normal 5-9 [facility] Comment on above: Performed By: #### M G, RENAL, URIC #### [facility] [address] [place] [address] Dr. Sahil Turk RBC 0-2 Normal 0-2 [facility] Comment on above: Performed By: #### M G, RENAL, URIC #### [facility] [address] [place] [address] Dr. Sahil Turk SPEC GRAVITY 1.015 Normal 1.005-<=1.0 25 [facility] Comment on above: Performed By: #### M G, RENAL, URIC #### [facility] [address] [place] [address] Dr. Sahil Turk UA PROTEIN Negative Normal NEGATIVE/ TRACE [facility] Comment on above: Performed By: #### M G, RENAL, URIC #### [facility] [address] [address] [address] Sahil Turk Urobilinogen Qn (U) 0.2 {Macie'U}/dL Normal 0.2 - 1. 0 [facility] Comment on above: Performed By: #### M G, RENAL, URIC #### [facility] [address] [place] [address] Dr. Sahil Turk WBC 10-20 Abnormal NONE SEEN [facility] Comment on above: Performed By: #### M G, RENAL, URIC #### [facility] [address] [address] [address] Sahil Turk URIC ACID SERUMon 06-12-2021 Urate [Mass/Vol] 7.7 mg/dL Critically high 2.5-6.2 [facility] Comment on above: Performed By: #### R ENAL, URIC, MG #### [facility] [address] [address] [address] Sahil Turk URINE T PROTEIN CREAT RATIOo n 06-12-2021 Protein (U) [Mass/Vol] 24.9 mg/dL Critically high <=12.0 [facility] Comment on above: Performed By: #### C JAYY, HSTROPN #### [facility] [address] [address] [address] Sahil Turk UR PROT CREAT RAT 0.33 Normal [facility] Comment on above: Performed By: #### C JAYY, HSTROPN #### [facility] [address] [address] [address] Sahil Turk URINE CREAT 76.21 mg/dL Normal 20.00-300.0 0 [facility] Comment on above: Performed By: #### C JAYY, HSTROPN #### [facility] [address] [address] [address] Sahil Turk Vital Signs Date Time Vital Sign Value Performing Clinician Facility 04-06-2024 18:18-0400 Hourly Rounding Ronobir AMPARO [facility] 04-06-2024 18:18-0400 Promise to Return Ronobir AMPARO [facility] 04-06-2024 17:21-0400 Diastolic blood pressure 82 mm[Hg] Ronobir AMPARO [facility] 04-06-2024 17:21-0400 Systolic blood pressure 156 mm[Hg] Ronobir AMPARO [facility] 04-06-2024 17:19-0400 Diastolic blood pressure 80 mm[Hg] Ronobir AMPARO [facility] 04-06-2024 17:19-0400 Heart rate 70 /min Ronobir AMPARO [facility] 04-06-2024 17:19-0400 Systolic blood pressure 171 mm[Hg] Ronobir AMPARO [facility] 04-06-2024 17:16-0400 Hourly Rounding Ronobir AMPARO [facility] 04-06-2024 17:16-0400 Promise to Return Ronobir AMPARO [facility] 04-06-2024 16:06-0400 Hourly Rounding Ronobir AMPARO [facility] 04-06-2024 16:06-0400 Promise to Return Ronobir AMPARO [facility] 04-06-2024 15:54-0400 gluc 137 mg/dL Ronobir AMPARO [facility] 04-06-2024 15:34-0400 SaO2% (BldA) [Mass fraction] 95 % Ronobir AMPARO [facility] 04-06-2024 15:27-0400 Heart rate 67 /min Ronobir AMPARO [facility] 04-06-2024 15:27-0400 SaO2% (BldA) [Mass fraction] 94 % Ronobir AMPARO [facility] 04-06-2024 15:25-0400 Diastolic blood pressure 86 mm[Hg] Ronobir AMPARO [facility] 04-06-2024 15:25-0400 Mean blood pressure 109 mm[Hg] Ronobir AMPARO [facility] 04-06-2024 15:25-0400 Systolic blood pressure 156 mm[Hg] Ronobir AMPARO [facility] 04-06-2024 15:25-0400 Body temperature 97.52 [degF] Ronobir AMPARO [facility] 04-06-2024 15:00-0400 Respiratory rate 18 /min Ronobir AMPARO [facility] 04-06-2024 11:46-0400 gluc 236 mg/dL Ronobir AMPARO [facility] 04-06-2024 11:21-0400 Heart rate 79 /min Ronobir AMPARO [facility] 04-06-2024 11:21-0400 SaO2% (BldA) [Mass fraction] 95 % Ronobir AMPARO [facility] 04-06-2024 11:18-0400 Mean blood pressure 90 mm[Hg] Ronobir AMPARO [facility] 04-06-2024 11:18-0400 Body temperature 97.88 [degF] Ronobir AMPARO [facility] 04-06-2024 07:53-0400 gluc 123 mg/dL Ronobir AMPARO [facility] 04-06-2024 07:35-0400 Mean blood pressure 102 mm[Hg] Ronobir AMPARO [facility] 04-06-2024 07:35-0400 Body temperature 97.7 [degF] Ronobir AMPARO [facility] 04-06-2024 01:03-0400 Body temperature 98.24 [degF] Ronobir AMPARO [facility] 04-06-2024 01:03-0400 Mean blood pressure 86 mm[Hg] Ronobir AMPARO [facility] 04-06-2024 01:03-0400 Respiratory rate 18 /min Ronobir AMPARO [facility] 04-05-2024 16:24-0400 Blood Pressure Location Ronobir AMPARO [facility] 04-05-2024 11:00-0400 Body temperature 98.06 [degF] Ronobir AMPARO [facility] 04-05-2024 11:00-0400 Mean blood pressure 83 mm[Hg] Ronobir AMPARO [facility] 04-05-2024 07:00-0400 Body temperature 97.52 [degF] Ronobir AMPARO [facility] 04-05-2024 07:00-0400 Mean blood pressure 78 mm[Hg] Ronobir AMPARO [facility] 04-04-2024 17:00-0400 Blood Pressure Location Ronobir AMPARO [facility] 04-04-2024 17:00-0400 Respiratory rate 67 /min Ronobir AMPARO [facility] 04-04-2024 05:00-0400 Respiratory rate 20 /min Ronobir AMPARO [facility] 04-04-2024 03:32-0400 Heart rate 89 /min Ronobir AMPARO [facility] 04-04-2024 03:32-0400 Respiratory rate 24 /min Ronobir AMPARO [facility] 04-04-2024 00:30-0400 Heart rate 114 /min Tika CHRISTENSEN [facility] 04-02-2024 15:50-0400 Body height 152.4 cm [facility] 04-02-2024 15:50-0400 Body mass index (BMI) [Ratio] 38.2 kg/m2 [facility] 04-02-2024 15:50-0400 Body temperature 98.4 [degF] [facility] 04-02-2024 15:50-0400 Body weight 88.9 kg [facility] 04-02-2024 15:50-0400 Diastolic blood pressure 69 mm[Hg] [facility] 04-02-2024 15:50-0400 Heart rate 83 /min [facility] 04-02-2024 15:50-0400 SaO2% (BldA) [Mass fraction] 97 % [facility] 04-02-2024 15:50-0400 Systolic blood pressure 112 mm[Hg] [facility] 03-19-2024 10:59-0400 Body height 152.4 cm [facility] 03-19-2024 10:59-0400 Body mass index (BMI) [Ratio] 38.5 kg/m2 [facility] 03-19-2024 10:59-0400 Body weight 89.35 kg [facility] 03-19-2024 10:59-0400 Diastolic blood pressure 74 mm[Hg] [facility] 03-19-2024 10:59-0400 Heart rate 80 /min [facility] 03-19-2024 10:59-0400 Respiratory rate 16 /min [facility] 03-19-2024 10:59-0400 SaO2% (BldA) [Mass fraction] 98 % [facility] 03-19-2024 10:59-0400 Systolic blood pressure 114 mm[Hg] [facility] 12-20-2023 11:19-0400 Body height 152.4 cm [facility] 12-20-2023 11:19-0400 Body mass index (BMI) [Ratio] 36.9 kg/m2 [facility] 12-20-2023 11:19-0400 Body weight 85.72 kg [facility] 12-20-2023 11:19-0400 Diastolic blood pressure 74 mm[Hg] [facility] 12-20-2023 11:19-0400 Heart rate 74 /min [facility] 12-20-2023 11:19-0400 SaO2% (BldA) [Mass fraction] 97 % [facility] 12-20-2023 11:19-0400 Systolic blood pressure 124 mm[Hg] [facility] 12-12-2023 13:18-0400 Body height 152.4 cm [facility] 12-12-2023 13:18-0400 Body mass index (BMI) [Ratio] 36.8 kg/m2 [facility] 12-12-2023 13:18-0400 Body weight 85.44 kg [facility] 12-12-2023 13:18-0400 Diastolic blood pressure 68 mm[Hg] [facility] 12-12-2023 13:18-0400 Heart rate 88 /min [facility] 12-12-2023 13:18-0400 Systolic blood pressure 121 mm[Hg] [facility] 08-02-2023 13:08-0500 Hour[facility] Round[facility] 08-02-2023 13:08-0500 Promise to Return [facility] 08-02-2023 12:08-0500 Hour[facility] Rounding [facility] 08-02-2023 12:08-0500 Promise to Return [facility] 08-02-2023 11:31-0500 Heart rate 85 /min [facility] 08-02-2023 11:31-0500 SaO2% (BldA) [Mass fraction] 94 % [facility] 08-02-2023 11:25-0500 Diastolic blood pressure 69 mm[Hg] [facility] 08-02-2023 11:25-0500 Mean blood pressure 83 mm[Hg] [facility] 08-02-2023 11:25-0500 Systolic blood pressure 110 mm[Hg] [facility] 08-02-2023 11:25-0500 Body temperature 97.34 [degF] [facility] 08-02-2023 11:08-0500 Hour[facility] Rounding [facility] 08-02-2023 11:08-0500 Promise to Return [facility] 08-02-2023 11:00-0500 Respiratory rate 18 /min [facility] 08-02-2023 08:27-0500 Heart rate 74 /min [facility] 08-02-2023 08:27-0500 SaO2% (BldA) [Mass fraction] 93 % [facility] 08-02-2023 08:24-0500 Body temperature 97.88 [degF] [facility] 08-02-2023 08:24-0500 Diastolic blood pressure 72 mm[Hg] [facility] 08-02-2023 08:24-0500 Mean blood pressure 90 mm[Hg] [facility] 08-02-2023 08:24-0500 Systolic blood pressure 124 mm[Hg] [facility] 08-02-2023 00:20-0500 Body temperature 97.88 [degF] [facility] 08-02-2023 00:20-0500 Diastolic blood pressure 82 mm[Hg] [facility] 08-02-2023 00:20-0500 Heart rate 71 /min [facility] 08-02-2023 00:20-0500 Mean blood pressure 90 mm[Hg] [facility] 08-02-2023 00:20-0500 SaO2% (BldA) [Mass fraction] 94 % [facility] 08-02-2023 00:20-0500 Systolic blood pressure 112 mm[Hg] [facility] 08-01-2023 12:00-0500 Respiratory rate 16 /min [facility] 07-31-2023 16:26-0500 Blood Pressure Location [facility] 07-31-2023 16:26-0500 Heart rate 65 /min [facility] 07-31-2023 16:26-0500 Respiratory rate 18 /min [facility] 07-31-2023 11:28-0500 Blood Pressure Location [facility] 07-31-2023 11:28-0500 Heart rate 70 /min [facility] 07-31-2023 10:43-0500 Mean blood pressure 82 mm[Hg] [facility] 07-31-2023 10:43-0500 Respiratory rate 18 /min [facility] 07-31-2023 10:00-0500 Mean blood pressure 69 mm[Hg] [facility] 07-31-2023 10:00-0500 Respiratory rate 20 /min [facility] 07-31-2023 09:45-0500 Mean blood pressure 70 mm[Hg] [facility] 07-30-2023 20:31-0500 Heart rate 75 /min [facility] 06-15-2023 11:20-0500 Body height 152.4 cm Yaneth Germania Other [facility] Other 06-15-2023 11:20-0500 Body mass index (BMI) [Ratio] 35.35 kg/m2 Yaneth Germania Other [facility] Other 06-15-2023 11:20-0500 Body temperature 98.7 [degF] Yaneth Germania Other [facility] Other 06-15-2023 11:20-0500 Body weight 82.1 kg Yaneth Germania Other [facility] Other 06-15-2023 11:20-0500 Diastolic blood pressure 75 mm[Hg] Yaenth Germania Other [facility] Other 06-15-2023 11:20-0500 Respiratory rate 18 /min Yaneth Germania Other [facility] Other 06-15-2023 11:20-0500 SaO2% (BldA) [Mass fraction] 96 % Yaneth Germania Other [facility] Other 06-15-2023 11:20-0500 Systolic blood pressure 111 mm[Hg] Yaneth Germania Other [facility] Other 06-02-2023 14:15-0500 Body height 152.4 cm Harpal Hayes Other [facility] Other 06-02-2023 14:15-0500 Body mass index (BMI) [Ratio] 35.27 kg/m2 Harpal Hayes Other [facility] Other 06-02-2023 14:15-0500 Body weight 81.92 kg Harpal Hayes Other [facility] Other 06-02-2023 14:15-0500 Diastolic blood pressure 76 mm[Hg] Harpal Hayes Other [facility] Other 06-02-2023 14:15-0500 SaO2% (BldA) [Mass fraction] 96 % Harpal Hayes Other [facility] Other 06-02-2023 14:15-0500 Systolic blood pressure 134 mm[Hg] Harpal Hayes Other [facility] Other 03-07-2023 10:15-0400 Body height 152.4 cm Harpal Hayes Other [facility] Other 03-07-2023 10:15-0400 Body mass index (BMI) [Ratio] 36.83 kg/m2 Harpal Hayes Other [facility] Other 03-07-2023 10:15-0400 Body weight 85.55 kg Harpal Hayes Other [facility] Other 03-07-2023 10:15-0400 Diastolic blood pressure 82 mm[Hg] Harpal Hayes Other [facility] Other 03-07-2023 10:15-0400 SaO2% (BldA) [Mass fraction] 93 % Harpal Hayes Other [facility] Other 03-07-2023 10:15-0400 Systolic blood pressure 140 mm[Hg] Harpal Hayes Other [facility] Other 12-20-2022 11:20-0400 Body height 152.4 cm Yaneth Germania Other [facility] Other 12-20-2022 11:20-0400 Body temperature 96.7 [degF] Yaneth Germania Other [facility] Other 12-20-2022 11:20-0400 Diastolic blood pressure 67 mm[Hg] Yaneth Germania Other [facility] Other 12-20-2022 11:20-0400 Respiratory rate 18 /min Yaneth Germania Other [facility] Other 12-20-2022 11:20-0400 SaO2% (BldA) [Mass fraction] 97 % Yaneth Germania Other [facility] Other 12-20-2022 11:20-0400 Systolic blood pressure 104 mm[Hg] Yaneth Germania Other [facility] Other 06-14-2022 12:40-0500 Body height 152.4 cm Yaneth Germania Other [facility] Other 06-14-2022 12:40-0500 Body mass index (BMI) [Ratio] 35.15 kg/m2 Yaneth Germania Other [facility] Other 06-14-2022 12:40-0500 Body temperature 97.3 [degF] Yaneth Germania Other [facility] Other 06-14-2022 12:40-0500 Body weight 81.65 kg Yaneth Germania Other [facility] Other 06-14-2022 12:40-0500 Diastolic blood pressure 73 mm[Hg] Yaneth Germania Other [facility] Other 06-14-2022 12:40-0500 Respiratory rate 18 /min Yaneth Germania Other [facility] Other 06-14-2022 12:40-0500 SaO2% (BldA) [Mass fraction] 95 % Yaneth Germania Other [facility] Other 06-14-2022 12:40-0500 Systolic blood pressure 115 mm[Hg] Yaneth Germania Other [facility] Other 01-08-2022 03:50-0400 Diastolic blood pressure 80 mm[Hg] [facility] [employer] 01-08-2022 03:50-0400 Heart rate 82 /min [facility] [employer] 01-08-2022 03:50-0400 Respiratory rate 16 /min [facility] [employer] 01-08-2022 03:50-0400 SaO2% (BldA) [Mass fraction] 100 % [employer] 01-08-2022 03:50-0400 Systolic blood pressure 140 mm[Hg] [employer] 06-18-2021 12:00-0500 Body height 152.4 cm Yaneth Germania Other [facility] Other 06-18-2021 12:00-0500 Body temperature 96.3 [degF] Yaneth Germania Other [facility] Other 06-18-2021 12:00-0500 Diastolic blood pressure 74 mm[Hg] Yaneth Germania Other [facility] Other 06-18-2021 12:00-0500 Respiratory rate 18 /min Yaneth Germania Other [facility] Other 06-18-2021 12:00-0500 SaO2% (BldA) [Mass fraction] 96 % Yaneth Germania Other [facility] Other 06-18-2021 12:00-0500 Systolic blood pressure 120 mm[Hg] Yaneth Solo Other [facility] Other Encounters Encounter Date Encounter Type Care Provider Facility Start: 05-28-2024 End: 05-28-2024 ambulatory [facility] Start: 04-04-2024 End: 04-06-2024 Evaluation and management of inpatient Ronobir R AMPARO Facility:[facility] Start: 04-04-2024 Emergency department patient visit DO Terry Delvalle Facility:[facility] Start: 04-04-2024 End: 04-06-2024 Evaluation and management of inpatient Augustusobir R AMPARO [facility] Start: 04-02-2024 End: 04-02-2024 ambulatory [facility] Work Phone: Start: 04-02-2024 End: 04-02-2024 Patient encounter procedure [facility] Work Phone: Start: 03-19-2024 End: 03-19-2024 ambulatory [facility] Work Phone: Start: 03-19-2024 End: 03-19-2024 Patient encounter procedure [facility] Work Phone: Start: 01-16-2024 Non-patient / Non-visit [facility] Work Phone: Start: 12-20-2023 End: 12-20-2023 ambulatory [facility] Work Phone: Start: 12-20-2023 End: 12-20-2023 Patient encounter procedure [facility] Work Phone: Start: 12-13-2023 Non-patient / Non-visit [facility] Work Phone: Start: 12-12-2023 End: 12-12-2023 ambulatory [facility] Work Phone: Start: 12-12-2023 End: 12-12-2023 Patient encounter procedure [facility] Work Phone: Start: 11-22-2023 End: 11-22-2023 ambulatory ZACH Huang [facility] Start: 11-07-2023 End: 11-07-2023 ambulatory [facility] Start: 08-10-2023 End: 08-10-2023 ambulatory [facility] Start: 07-31-2023 End: 08-02-2023 Evaluation and management of inpatient Christie Zayas Facility:[facility] Start: 07-30-2023 End: 08-02-2023 Evaluation and management of inpatient Christie Zayas [facility] Start: 07-11-2023 End: 07-11-2023 ambulatory LINDA Brand NASIM Not Available Start: 06-23-2023 End: 06-23-2023 ambulatory Harpal Hayes Other [facility] Other Start: 06-23-2023 Telephone encounter Harpal Hayes [facility] Start: 06-22-2023 End: 06-22-2023 ambulatory Harpal Hayes Other [facility] Other Start: 06-22-2023 Telephone encounter Harpal Hayes [facility] Start: 06-15-2023 End: 06-15-2023 ambulatory Yaneth Germania Other [facility] Other Start: 06-15-2023 Office outpatient vi sit 25 minutes Yaneth Germania [facility] Neph[facility] Start: 06-02-2023 End: 06-02-2023 ambulatory Harpal Hayes Other [facility] Other Start: 06-02-2023 Office outpatient vi sit 15 minutes Harpalcarolann Hayes [facility] Start: 05-24-2023 End: 05-24-2023 ambulatory Harpal Freddy Other [facility] Other Start: 05-24-2023 Telephone encounter Harpal Freddy [facility] Start: 05-18-2023 End: 05-18-2023 ambulatory Harpal Freddy Other [facility] Other Start: 05-18-2023 Telephone encounter Harpal Freddy [facility] Start: 05-09-2023 End: 05-09-2023 ambulatory Harpal Freddy Other [facility] Other Start: 05-09-2023 Telephone encounter Harpal Freddy [facility] Start: 03-15-2023 End: 03-15-2023 ambulatory Harpal Freddy Other [facility] Other Start: 03-15-2023 Telephone encounter Harpal Freddy [facility] Start: 03-07-2023 End: 03-07-2023 ambulatory Harpal Freddy Other [facility] Other Start: 03-07-2023 Office outpatient vi sit 25 minutes Harpal Freddy [facility] Start: 03-07-2023 Telephone encounter Harpal Freddy [facility] Start: 02-23-2023 End: 02-23-2023 ambulatory Harpal Hayes Other [facility] Other Start: 02-23-2023 Telephone encounter Harpal Hayes [facility] Start: 02-18-2023 End: 02-18-2023 ambulatory Harpal Freddy Other [facility] Other Start: 02-18-2023 Telephone encounter Harpal Freddy [facility] Start: 01-27-2023 End: 01-27-2023 ambulatory Harpal Hayes Other [facility] Other Start: 01-27-2023 Telephone encounter Harpal Freddy [facility] Start: 01-11-2023 End: 01-11-2023 ambulatory Harpal Freddy Other [facility] Other Start: 01-11-2023 Telephone encounter Harpal Freddy [facility] Start: 12-20-2022 End: 12-20-2022 ambulatory Yaneth Germania Other [facility] Other Start: 12-20-2022 Office outpatient vi sit 25 minutes Yaneth Germania [facility] Start: 12-06-2022 End: 12-06-2022 ambulatory Yaneth Germania Other [facility] Other Start: 12-06-2022 Telephone encounter Yaneth Germania [facility] Start: 12-06-2022 End: 12-06-2022 [facility]Site [facility] Start: 12-03-2022 End: 12-17-2022 Evaluation and management of inpatient Og TOLBERT [facility] Start: 12-01-2022 End: 12-01-2022 [facility]-Site [facility] Start: 11-15-2022 End: 11-15-2022 Off-Site [facility] Start: 11-14-2022 End: 12-01-2022 Evaluation and management of inpatient Og TOLBERT [facility] Start: 06-14-2022 End: 06-14-2022 ambulatory Yaneth Germania Other [facility] Other Start: 06-14-2022 Office outpatient vi sit 25 minutes Yaneth Germania [facility] Start: 06-09-[address] HARPAL HAYES Facil ity:[facility] Start: 05-27-2022 End: 05-27-[address] SULEMAN OLSEN Facility:[facility] Start: 04-26-2022 Gynecological examination normal Harpal Hayes Other [facility] Other Start: 03-11-2022 End: 03-11-2022 ambulatory CHRISTOPHER ABARCA Facility:[facility] Start: 02-21-2022 End: 02-21-2022 ambulatory ANDRADE DEBBIE Facility:[facility] Start: 02-18-2022 End: 02-24-2022 ambulatory [facility] PROVIDER [facility] Start: 01-08-2022 End: 01-08-2022 ambulatory [facility] Triage, Treat and Transport Start: 01-08-2022 End: 01-08-2022 Emergency department patient visit [facility] Emergency Triage, Treat and Transport Comment on above: Arrived Start: 01-06-2022 End: 01-07-2022 ambulatory MEI DAS Facility:[facility] Start: 12-10-2021 End: 12-11-2021 ambulatory YANETH GERMANIA Facility:[facility] Start: 11-16-2021 End: 11-17-[address] LINDA REED Facility:[facility] Start: 09-28-2021 End: 10-28-[address] HARPAL HAYES Facility:[facility] Start: 08-31-[address] HARPAL HAYES Facil ity:[facility] Start: 06-18-2021 End: 06-18-2021 ambulatory Yaneth Germania Other [facility] Other Start: 06-18-2021 Office outpatient vi sit 25 minutes Yaneth Germania [facility] Start: 06-12-2021 End: 06-13-2021 ambulatory YANETH GERMANIA Facility:[facility] Start: 06-09-2017 End: 06-10-2017 Ambulatory DEFAULT PHYSICIAN Facility:[facility] Start: 06-07-2017 End: 06-08-2017 Ambulatory DEFAULT PHYSICIAN Facility:[facility] Start: 06-02-2017 End: 06-03-2017 Ambulatory DEFAULT PHYSICIAN Facility:[facility] Start: 05-10-2017 End: 05-11-2017 Ambulatory DEFAULT PHYSICIAN Facility:[facility] Procedures Date Procedure Procedure Detail Performing Clinician Arthroplasty of knee Christie Zayas Bone structure of fe mur (body structure) Christie Zayas Comment on above: stainless steel yadiel placed Depression screening Harpal Hayes Other History of operative procedure on knee Yaneth Germania Other None (qualifier value) Rkroberto hartman TOMASZ Removal of suture Harpal gee Other Screening [...] 1945 COVID-19 Vaccine (#1) COVID-19 Vaccine (#1) [facility] Renal function 2000 panel - Serum or Plasma [facility] Immunizations Immunization Date Immunization Notes Care Provider Fa cility NEGATED: Highlighted row has not occurred! 6 pneumococcal polysaccharide vaccine, 23 valent Patient Objection Yaneth Germania Other [facility] Other Payers Date Payer Category Payer Medicare MEDICARE MEDICAR E PART A & B [id number] 2022-Present [address] [place] [address] Medicare [id number] 2017 Unknown [id number] 1960 Medicare [id number] 1944 Unknown [id number] 2.16.840.1.217935.3.579.2.732 1944 Unknown [id number] 2.16.840.1.255994.3.579.2.593 1944 Unknown [id number] 2.16.840.1.200872.3.579.2.593 1944 Unknown [id number] 2.16.840.1.624797.3.579.2.593 1944 Unknown [id number] 2.16.840.1.349028.3.579.2.593 1944 Unknown [id number] 2.16.840.1.865155.3.579.2.593 1944 Unknown [id number] 2.16.840.1.585658.3.579.2.593 1944 Unknown [id number] 2.16.840.1.864144.3.579.2.593 1944 Unknown [id number] 2.16.840.1.791773.3.579.2.593 1944 Unknown [id number] 2.16.840.1.442163.3.579.2.593 1944 Unknown [id number] 2.16.840.1.121000.3.579.2.593 1944 Unknown [id number] 2.16.840.1.431830.3.579.2.1259 1944 Unknown [id number] 2.16.840.1.357521.3.579.2.1286 1944 Unknown [id number] 2.16.840.1.832605.3.579.2.727 1944 Unknown [id number] 2.16.840.1.437900.3.579.2.727 1944 Unknown [id number] 2.16.840.1.855572.3.579.2.727 1944 Unknown [id number] 2.16.840.1.006659.3.579.2.727 1944 Unknown [id number] 2.16.840.1.251389.3.579.2.727 1944 Unknown [id number] 2.16.840.1.022024.3.579.2.727 1944 Unknown [id number] 2.16.840.1.487312.3.579.2.727 1944 Unknown [id number] 2.16.840.1.205083.3.579.2.727 1944 Unknown [id number] 2.16.840.1.185678.3.579.2.727 1944 Unknown [id number] 2.16.840.1.450862.3.579.2.727 1944 Unknown [id number] 2.16.840.1.436180.3.579.2.727 1944 Unknown [id number] 2.16.840.1.832201.3.579.2.72 1944 Unknown [id number] 2.16.840.1.599311.3.579.2.727 Self-pay Self Pay [id number] Unknown Social History Date Type Detail Facility Unknown if ever smoked [facility] Other Sex Assigned At [facility] Tobacco smoking status TNIS Tobacco smoking consumption unknown [facility] Start: 1945 Sex Assigned At Not on file [facility] Tobacco smoking status No Smoking Status Entered [facility] Start: 07-27-2018 Tobacco smoking status NHIS Never smoked tobacco (finding) [facility] Start: 1945 Sex Assigned At Female [facility] Tobacco [facility] Comment on above: Denies. Functional Status Date Assessment Result Facility 04-04-2024 Functional Status No [facility] 04-04-2024 Functional Status [facility] 07-31-2023 Functional Status No [facility] 07-30-2023 Functional Status [facility] Clinical Notes 06-18-2021 to 05-28-2024 Note Date & Type Note Facility 05-28-2024 Note [facility] Cardiology Clinic Note Chief Complaint: Patient here for 6 mo follow up CAD, tricuspid valve disorder, HFpEF, and hypertension. She was admitted to [facility] in Mar 2024 and carvedilol was stopped, but daughter has been giving it to her. C/o LE muscle pain with ambulation. Denies chest pain, SOB, and palpitations. HPI: Doing well; denies new symptoms Blood pressure better controlled UPDATE 05/28/2024 Impression and Plan 1-elevated troponin which is insignificant given the patient's advanced kidney disease. No ischemic EKG changes and no history of coronary artery disease. Given the patient's overall medical conditions and her advanced kidney disease conservative therapy is recommended including maintaining statin therapy and antiplatelet therapy. Continue beta-skyler therapy. Echocardiogram revealed no wall motion abnormalities and normal ejection fraction, the record indicated having had previous cardiac catheterization treated with no interventions. 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 Antibiotic therapy has been instituted. Diastolic dysfunction could play a role in her symptoms as well, diuretic therapy has been utilized 3-dyslipidemia on low intensity statin with atorvastatin. 4-type II diabetes on metformin managed by PCP 5-stage IIIb chronic kidney disease, nephrology is following, diuretics have been placed on hold Update 05/28/2024: Has been doing well since she was discharged from the hospital from a cardiac standpoint; no angina. Has intermittent fleeting chest discomfort that lasts seconds and resolved. She has been getting significant headaches for the past several months. Dr. Hayes her family physician is aware. She has been tried on different medications for her generalized pain disorder but has not seen a headache specialist. Cardiology ROS: Review of Systems Cardiovascular: Positive for claudication and leg swelling. Skin: Positive for color change. Musculoskeletal: Positive for muscle weakness. Neurological: Positive for headaches. All other systems reviewed and are negative. Past Medical History She has no past medical history on file. Surgical History She has no past surgical history on file. Social History She reports that she quit smoking about 43 years ago. Her smoking use included cigarettes. [...] evening meal., Disp: 180 tablet, Rfl: 3 cetirizine (ZyrTEC) 10 mg capsule, Take 1 [...] , Rfl: pregabalin (Lyrica) 150 mg capsule, Take 150 mg by mouth in the morning and at bedtime., Disp: , Rfl: rOPINIRole (Requip) 4 mg tablet, Take 2 mg by mouth at bedtime., Disp: , Rfl: traMADol (Ultram) 50 mg tablet, Take 1 tablet by mouth if needed in the morning, at noon, and at bedtime., Disp: , Rfl: traZODone (Desyrel) 150 mg tablet, TAKE 1 TABLET BY ORAL ROUTE EVERY DAY, Disp: , Rfl: Last Recorded Vitals BP 134/78 (BP Location: Right arm, Patient Position: Sitting) Pulse 76 Ht 1.499 m (4' 11 ) Wt 89.4 kg (197 lb) SpO2 94% BMI 39.79 kg/m??? Physical Examination: GENERAL: alert and oriented x3, well developed, in no acute distress. H (more content not included)... [facility] 04-11-2024 Note Microbiology PROCEDURE: Blood Culture Charcoal [R1] SOURCE: Blood BODY SITE: Wrist R COLLECTED DATE/TIME: 04/04/2024 01:09 EDT RECEIVED DATE/TIME: 04/04/2024 01:27 EDT START DATE/TIME: 04/04/2024 01:27 EDT FREE TEXT SOURCE: Terry Delvalle DO, DO, Kaylinn A FINAL REPORTS Final Report [] Verified Date/Time: 04/11/2024 03:00 EST No growth at 7 days. Performing Locations R1: This test was performed at: [facility], [address] [place] [address], [id number] [place] [address], [address] [place] [address] Comment on above: Performed By: #### 1 [id number] #### [facility] [address] [place] [id number] 04-11-2024 Note Microbiology PROCEDURE: Blood Culture Charcoal [R1] SOURCE: Blood BODY SITE: Arm R COLLECTED DATE/TIME: 04/04/2024 01:09 EDT RECEIVED DATE/TIME: 04/04/2024 01:27 EDT START DATE/TIME: 04/04/2024 01:27 EDT FREE TEXT SOURCE: IV start Dokken DO, Kaylinn A Dokken DO, Kaylinn A FINAL REPORTS Final Report [] Verified Date/Time: 04/11/2024 03:00 EST No growth at 7 days. Performing Locations R1: This test was performed at: [facility], [address] [place] [address], [address] [place] [address], [address] [place] [address] Comment on above: Performed By: #### 1 [id number] #### [facility] [address] [place] [id number] 04-11-2024 Note Microbiology PROCEDURE: Blood Culture Charcoal [R1] SOURCE: Blood BODY SITE: Wrist R COLLECTED DATE/TIME: 04/04/2024 01:09 EDT RECEIVED DATE/TIME: 04/04/2024 01:27 EDT START DATE/TIME: 04/04/2024 01:27 EDT FREE TEXT SOURCE: Peripheral vein site #2 Dokken DO, Kaylinn A Dokken DO, Kaylinn A FINAL REPORTS Final Report [] Verified Date/Time: 04/11/2024 03:00 EST No growth at 7 days. Performing Locations R1: This test was performed at: [facility], [address] [place] [address], [address] [place] [address], [address] [place] [address] Comment on above: Performed By: #### 1 [id number] #### [facility] [address] [place] [id number] 04-11-2024 Note Microbiology PROCEDURE: Blood Culture Charcoal [R1] SOURCE: Blood BODY SITE: Arm R COLLECTED DATE/TIME: 04/04/2024 01:09 EDT RECEIVED DATE/TIME: 04/04/2024 01:27 EDT START DATE/TIME: 04/04/2024 01:27 EDT FREE TEXT SOURCE: Peripheral vein site #1 Adelia MARTIN Jeancarlosomkar Brand Adelia MARTIN Mirocío Sunday FINAL REPORTS Final Report [] Verified Date/Time: 04/11/2024 03:00 EST No growth at 7 days. Performing Locations R1: This test was performed at: [facility], [address] [place] [address], [id number]- , , [facility] Comment on above: Performed By: #### 1 [id number] #### [facility] [address] [place] [id number] 04-06-2024 Hospital Discharge instructions Patient Education 04/06/2024 15:10:57 Community-Acquired Pneumonia, Adult, Edxm-fm-[id number] Community-Acquired Pneumonia, Adult Pneumonia is an infection [...] Follow these instructions at home: Medicines Take loxc-bng-xyigehh and prescription medicines only as told by [...] Ask your doctor if you have one of these. Getting your flu shot every year. Ask your doctor which type of shot is best for you. Going to the dentist as often as told. Washing your hands often with soap and water for at least 20 seconds. If you cannot use soap and water, use hand halal butcher. Contact a doctor if: You have a [...] provider. Document Revised: 07/21/2022 Document Reviewed: 07/21/2022 [employer] Patient Education 2023 [employer]. 04/06/2024 15:10:57 Sepsis, Self Care, Adult Sepsis, Self Care, Adult Sepsis is a serious illness that may require intensive care in the hospital. The following information explains what you need to know in order to manage your condition after you are discharged from the hospital. What are the risks? After being treated for sepsis and discharged from the hospital, you may be at a higher risk for certain problems. These problems may be physical or mental. Physical problems: Weakness and tiredness. Shortness of breath. Pain in many areas of the body. Difficulty walking. Dry, itchy skin. Lack of appetite. This may lead to weight loss. Organ failure. Mental problems: Difficulty sleeping. Depression. Confusion. Anxiety and worry caused by having gone through a bad experience (post-traumatic stress disorder,PTSD). Low self-esteem. Follow these instructions at home: Medicines Take zdxf-wyv-apynnby and prescription medicines only as told by your health care provider. If you were prescribed an antibiotic, antiviral, or antifungal medicine, take it as told by your health care provider. Do not stop taking the medicine even if you start to feel better. Eating and drinking Eat a healthy diet that includes plenty of vegetables, fruits, whole grains, low-fat dairy products, and lean protein. Ask your health care provider if you should avoid certain foods. Drink enough fluid to keep your urine pale yellow. Alcohol use Do not drink alcohol if: ?Your health care provider tells you not to drink. ?You are , may be , or are planning to become . If you drink alcohol, limit how much you use to: ?0 1 drink a day for women. ?0 2 drinks a day for men. ?Be aware of how much alcohol is in your drink. In the [place] one drink equals one 12 oz bottle of beer (355 mL), one 5 oz glass of wine (148 mL), or one 1 oz glass of hard liquor (44 mL). Activity Rest as told by your health care provider. Avoid sitting for a long time without moving. Get up to take short walks every 1 2 hours. This is important to improve blood flow and breathing. Ask for help if you feel weak or unsteady. Try to set small, achievable goals each week, such as dressing yourself, bathing, or walking up the stairs. It may take a while to rebuild your strength. Try to exercise regularly if you feel healthy enough to do so. Ask your health care provider what exercises are safe for you. Return to your normal activities as told by your health care provider. Ask your health care provider what activities are safe for you. Preventing infection Keep your vaccinations up to date. Get the flu shot every year. Wash your hands often for at least 20 seconds using soap and water. If soap and water are not available, use hand halal butcher. Practice good hygiene. Keep cuts clean and covered until they heal. Managing stress Talk with your health care provider or counselor about ways to reduce stress. He or she may suggest: Meditation, muscle relaxation, and breathing exercises. Listening to music. Talk therapy. Spending time on hobbies and activities that you enjoy. General instructions Get the right amount and quality of sleep. Most adults need 7 9 hours of sleep each night. To help with sleep: ?Keep your bedroom cool and dark. ?Do not eat a heavy meal within one hour of bedtime. ?Do not drink alcohol or caffeinated drinks before bed. ?Avoid screen time, such as television, computers, tablets, or cell phones before bed. Do not use any products that contain nicotine or tobacco. These products include cigarettes, chewing tobacco, and vaping devices, such as e-cigarettes. If you need help quitting, ask your health care provider. Talk to trusted family members and friends about your condition. Explain your symptoms to them, and let them know that you are working with a health care provider to treat your condition. This can provide you with one way to get support and guidance. Keep all follow-up visits. This is important. Questions to ask your health care provider: What physical and emotional changes do I need to report? Do I need to have someone with me all the time? Is it safe for me to drive? Contact a health care provider if: You do not feel like you are getting better or regaining strength. You have muscle or joint pain. You frequently feel tired. You are having trouble coping with your recovery. You have nightmares, or trouble falling asleep or staying asleep. You feel sad, down, or depressed more often than not, every day for more than 2 weeks. You have difficulty concentrating. You feel irritable or you cry for no reason. Get help right away if: You have difficulty breathing. You have a rapid or skipping heartbeat. You become confused or disoriented. You see, hear, or feel things that do not exist (hallucinations). You have a high fever. You have an infection that is getting worse or not getting better. You have thoughts of hurting yourself or others. These symptoms may represent a serious problem that is an emergency. Do not wait to see if the symptoms will go away. Get medical help right away. Call your local emergency services (425 in the [place] Do not drive yourself to the hospital. If you ever feel like you may hurt yourself or others, or have thoughts about taking your own life, get help right away. Go to your nearest emergency department or: Call your local emergency services (584 in the [place] Call a suicide crisis helpline, such as the National Suicide Prevention Lifeline at or 937 in the [place] This is open 24 hours a day. Text the Crisis Text Line at 347673 (in the [place] Summary Sepsis is a serious illness that may require intensive care in a hospital. You may experience long-term health effects after you are discharged from the hospital. Try to set small, achievable goals each week, such as dressing yourself, bathing, or walking up the stairs. It may take a while to rebuild your strength. Know what symptoms you should get help right away for. Keep all follow-up visits. This is important. This information is not intended to replace advice given to you by your health care provider. Make sure you discuss any questions you have with your health care provider. Document Revised: 04/25/2023 Document Reviewed: 04/25/2023 [employer] Patient Education 2023 [employer]. 04/06/2024 15:10:57 Sepsis, Diagnosis, Adult Sepsis, Diagnosis, Adult Sepsis is a serious bodily reaction to an infection. The infection that triggers sepsis may be from a bacteria, virus, or fungus. Sepsis can result from an infection in any part of your body. Infections that commonly lead to sepsis include skin, lung, and urinary tract infections. Sepsis is a medical emergency that must be treated right away in a hospital. In severe cases, it can lead to septic shock. Septic shock can weaken your heart and cause your blood pressure to drop. This can cause your central nervous system and your body's organs to stop working. What are the causes? This condition is caused by a severe reaction to infections from bacteria, viruses, or fungus. The germs that most often lead to sepsis include: Escherichia coli (E. coli) bacteria. Staphylococcus aureus (staph) bacteria. Some types of Streptococcus bacteria. The most common infections affect these organs: The lung (pneumonia). The kidneys or bladder (urinary tract infection). The skin (cellulitis). The bowel, gallbladder, or pancreas. What increases the risk? You are more likely to develop this condition if: Your body's disease-fighting system (immune system) is weakened. You are age 65 or older. You are male. You had surgery or you have been hospitalized. You have these devices inserted into your body: ?A small, thin tube (catheter). ?IV line. ?Breathing tube. ?Drainage tube. You are not getting enough nutrients from food (malnourished). You have a chronic disease, such as cancer, lung disease, kidney disease, or diabetes. What are the signs or symptoms? Symptoms of this condition may include: Fever. Chills or feeling very cold. Confusion or anxiety. Fatigue. Muscle aches. Shortness of breath or rapid breathing (hyperventilation). Nausea and vomiting. Urinating much less than usual. Fast heart rate. Changes in skin color. Your skin may look blotchy, pale, or blue. Cool, clammy, or sweaty skin. Skin rash. Other symptoms depend on the source of your infection. How is this diagnosed? This condition is diagnosed based on your symptoms, medical history, and physical exam. Other tests may also be done to find out the cause of the infection and how severe the sepsis is. Tests may include: Blood tests. Urine tests. Swabs from other areas of your body that may have an infection. These samples may be tested (cultured) to find out what type of bacteria is causing the infection. Chest X-ray to check for pneumonia. Other imaging tests, such as a CT scan, may also be done. Lumbar puncture. This removes a small amount of the fluid that surrounds your brain and spinal cord. The fluid is then examined for infection. How is this treated? This condition must be treated in a hospital. Based on the cause of your infection, you may be given an antibiotic, antiviral, or antifungal medicine. You may also receive: Fluids through an IV. Oxygen and breathing assistance. Medicines to increase your blood pressure. Kidney dialysis. This process cleans your blood if your kidneys have failed. Surgery to remove infected tissue. Blood transfusion if needed. Medicine to prevent blood clots. Nutrients to correct imbalances in basic body function (metabolism). You may: ?Receive important salts and minerals (electrolytes) through an IV. ?Have your blood sugar level adjusted. Follow these instructions at home: Medicines Take ubge-jbh-tkqedev and prescription medicines only as told by your health care provider. If you were prescribed an antibiotic, antiviral, or antifungal medicine, take it as told by your health care provider. Do not stop taking the medicine even if you start to feel better. General instructions If you have a catheter or other indwelling device, ask to have it removed as soon as possible. Keep all follow-up visits. This is important. Contact a health care provider if: You do not feel like you are getting better or regaining strength. You are having trouble coping with your recovery. You frequently feel tired. You feel worse or do not seem to get better after surgery. You think you may have an infection after surgery. Get help right away if: You have any symptoms of sepsis. You have difficulty breathing. You have a rapid or skipping heartbeat. You become confused or disoriented. You have a high fever. Your skin becomes blotchy, pale, or blue. You have an infection that is getting worse or not getting better. These symptoms may represent a serious problem that is an emergency. Do not wait to see if the symptoms will go away. Get medical help right away. Call your local emergency services (911 in the [place] Do not drive yourself to the hospital. Summary Sepsis is a medical emergency that requires immediate treatment in a hospital. This condition is caused by a severe reaction to infections from bacteria, viruses, or fungus. Based on the cause of your infection, you may be given an antibiotic, antiviral, or antifungal medicine. Treatment may also include IV fluids, breathing assistance, and kidney dialysis. This information is not intended to replace advice given to you by your health care provider. Make sure you discuss any questions you have with your health care provider. Document Revised: 04/25/2023 Document Reviewed: 04/25/2023 [employer] Patient Education 2023 [employer]plays. Follow Up Care 04/04/2024 00:26:14 With:Toby Santiago Address: [place] [address]- Business (1) When:05/07/2024 14:00:00 With:Brianne Jane Address: [address] [place], [place] [address] [phone] Business (1) When:5 to 7 days Comments:Doctor's office is closed for the day. Please call Tuesday to make hospital follow up appointment. With:Follow up with your primary cardiology team as soon as possible Address:Unknown When: Unknown With:HARPAL HAYES Address: [address] [place] [phone]- Business (1) When:04/12/2024 11:30:00 With:Patient is currenct with [employer]. Address:Unknown When: Unknown [facility] 04-06-2024 Note Discharge Summary Admission and Discharge Information Admit Date/Time:04/04/2024 02:13 Admitting Physician - Tika CHRISTENSEN DO Consulting Physician - Delphine BRIGGS, Briseida TRAORE, XXXX Admitting Diagnoses: Discharge Order Date Discharge Patient - Ordered -- 04/06/24 15:29:00 EDT, To home w/ f/u appts as written. Discharge Diagnoses 1. Acute respiratory failure with hypoxia, 04/04/2024 2. Sepsis, 04/04/2024 3. Pneumonia, 04/04/2024 4. Pyelonephritis, acute, 04/04/2024 5. Elevated troponin I level, 04/04/2024 6. Acute kidney injury superimposed on stage 3b chronic kidney disease, 04/04/2024 7. Anemia, 04/04/2024 8. Hypokalemia, 04/05/2024 9. Generalized weakness, 04/04/2024 10. Dementia, 04/04/2024 11. HTN (hypertension), 04/04/2024 12. Hyperlipemia, mixed, 04/04/2024 13. DM2 (diabetes mellitus, type 2), 04/04/2024 14. Hypothyroid, 04/04/2024 15. On deep vein thrombosis (DVT) prophylaxis, 04/04/2024 16. Morbid obesity, 04/06/2024 Please refer to my progress note for in-depth information regarding each individual diagnosis Procedure History Femur, Knee replacement, None. Hospital Course 78-year-old female with PMH of HTN, HLD, NIDDM T2, CKD stage IIIb, hypothyroidism, dementia, remote CVA hx. of VRE. -Patient presented to the ED secondary to cough, SOB, and hypoxemia at [facility]. Johann Patterson () [phone], pt. is a FULL CODE, he states no prolonged code situation. -Pt. and her have made dgt. Lilian RAUSCHOA-HC [phone]. 1. Acute respiratory failure with hypoxia (J96.01: Acute respiratory failure with hypoxia) 2/2 PNA w/ failed outpt. zpak for bronchitis -Denies home 02 or cpap/bipap use - attempt to wean to NC today -Supplemental 02 - BNP 161 -Tx. as below -Resolved stable on RA, pt. declined desat study stating she is doing well ambulating to BR 2. Sepsis (A41.9: Sepsis, unspecified organism) 2/2 PNA w/ failed outpt. Zpak tx. - resolved + worsening PCT today - up to 19 - downtrending today -COVID Ag, RVP, Flu A/B - neg -IVF 1L to date -> Monitor closely for fl. overload -04/04: Transition IV ceftriaxone/po azithro to IV zosyn - transitioned to augmentin x 7 total days -BlCx - NGTD -Urine cx. - mixed skin cont. -See below 3. Pneumonia (J18.9: Pneumonia, unspecified organism) -CT chest: Small bilateral dependent subsegmental consolidations, posterior lung bases. Bilateral kidneys, cholelithiasis, sigmoid diverticulosis, remote appears umbilical ventral wall hernia -MRSA swab: neg -IV atb - as above -Med nebs, flutter device, mucinex, supplemental 02 -Sputum cx. prelim - scant growth of normal resp. kaity -Legionella antigen - pending -Recommend repeat CXR in 4 weeks as outpatient 4. Pyelonephritis, acute (N10: Acute pyelonephritis) CT A/P: Cholelithiasis, sigmoid diverticulosis, remote repair of supraumbilical ventral wall hernia. Kidneys: Small in size, no hydronephrosis, masses, stones, mild b/l perinephritic fat stranding -Unfounded dx. as urine cx. is neg, stranding likely inflamm and not infectious 5. Elevated troponin I level (R79.89: Other specified abnormal findings of blood chemistry) Pt. reports intermittent CP x 1 week -Max trop 67 - per cardio 2/2 ADIA/CKD, -12 lead ECG: RSR, non acute -Asa, atorvastatin, carvedilol, -BNP 161 -Echo: EF 65???70%, grade 1 diastolic dysfunction, mild TR, RVSP is normal. -Consult [facility]: -Trop is insignificant given adv. CKD -D/C coreg given low bp and need for diuretic tx. -Defer diuretic mgt. to nephro -May d/c from cardio standpoint, F/U w/ [place] in [place] 6. Acute kidney injury superimposed on stage 3b chronic kidney disease (N17.9: Acute kidney failure, unspecified) Likely 2/2 dehydration 2/2 sepsis 2/2 PNA c/w furosemide use -Baseline Cr 1.3 -1.5 -IVF as above -Renal US - await nephro input -04/04: Bladder scan 397ml, PVR - 90ml -Trend BMP -Avoid nephrotoxic medications as much as possible -Consult nephrology: -DC IVF -Resume lasix -October d/c from nephro standpoint 7. Anemia (D64.9: Anemia, unspecified) 2/2 iron, B12 & folate def. -Baseline hgb. level - 10-11 -Downtrending today -> hold heparin sq -Anemia panel -> Increase ferrous sulfate 325mg to daily (was on // dosing), miralax daily, folic acid 1g daily, Vt. B12 daily -No acute bleeding noted, hemodynamically stable -Trend labs + Hemoccult stool -Consult GI: -Case reviewed w/ Dr. Kong - no overt bleeding and hgb is stable, f/u in GI clinic for scope options. This was d/w pt. and her dgt. Lilian at bedside, they explained this is an ongoing issue since 2020 and have not sought further investigation. GI contact information placed in depart in case they decide to f/u. 8. Hypokalemia (E87.6: Hypokalemia) Replete K/Mag prn -Resume chronic home dosing -Trend labs 9. Generalized weakness (R53.1: Weakness) Multifactorial: see dx. as above -Tx. as above -PT/OT - C w/ thera (more content not included)... [facility] Comment on above: Result Comment: Elec tronically Signed By: Akua NICHOLSON\.br\Date and Time Signed: 04/06/24 15:33 EDT\.br\Electronically Co-Signed By: Miguel Ramires DO.br\Date and Time Co-Signed: 04/06/24 16:58 EDT 04-06-2024 Evaluation + Plan note Extrac olamide from: Title:Discharge Note Author:Madeline NICHOLSON Date:04/06/24 Hemodynamically stable condi tion Discharge To, Anticipated II - Home with home health Discharged to - Home with family care Discharge Status: Improved Discharge Instructions Given: To patient Discharge disposition: Home Prescriptions reviewed with Patient 47 minutes spent in discharge time with patient, specialty services, reviewing d/c med rec, collaborating MD, nursing staff, CRM, Discharge Diet(s): Calorie Controlled- 2000 Calorie Diet, Fat Modified- Low cholesterol, Low Sodium- 2000 mg (04/06/24 15:07:00) Prescriptions Albuterol (Eqv-Ventolin HFA) 90 mcg/inh inhalation aerosol, 1 inh, Inhalation, q2hr Augmentin 875 mg-125 mg Tab, 1 tab(s), Oral, q12hr cyanocobalamin 1000 mcg Tab, 1000 mcg= 1 tab(s), Oral, Daily ferrous sulfate 325 mg Tab, 325 mg= 1 tab(s), Oral, Daily folic acid 1 mg Tab, 1 mg= 1 tab(s), Oral, Daily Mucinex 600 mg Tab-ER, 1200 mg= 2 tab(s), Oral, q12hr Protonix 40 mg Tab-DR, 40 mg= 1 tab(s), Oral, Daily Tessalon 100 mg Cap, 100 mg= 1 cap(s), Oral, TID, PRN Home acetaminophen 325 mg Tab, 650 mg= 2 tab(s), Oral, q6hr, PRN aspirin 81 mg Oral EC Tab, 81 mg= 1 tab(s), Oral, Daily atorvastatin 10 mg Tab, 10 mg= 1 tab(s), Oral, Bedtime cetirizine 10 mg Tab, 10 mg= 1 tab(s), Oral, Daily, PRN, Investigating Colace 100 mg Cap, 100 mg= 1 cap(s), Oral, BID, PRN furosemide 40 mg Tab, 40 mg= 1 tab(s), Oral, Daily levothyroxine 50 mcg (0.05 mg) Tab, 50 mcg= 1 tab(s), Oral, Daily Lyrica, 100 mg, Oral, BID magnesium oxide 400 mg oral capsule, 400 mg= 1 cap(s), Oral, Daily metformin 500 mg oral tablet, 500 mg= 1 tab(s), Oral, BID Myrbetriq 50 mg oral tablet, extended release nitroglycerin 0.4 mg sublingual Tab, 0.4 mg= 1 tab(s), SubLingual, q5min, PRN, Unable to obtain Hendley 325 mg-5 mg oral tablet, 1 tab(s), Oral, BID, PRN nystatin Top 100,000 units/g Pwdr, 1 chantal, Topical, BID, Unable to obtain oxybutynin 5 mg ER Tab, 5 mg= 1 tab(s), Oral, Daily polyethylene glycol 3350 17 gram packet, 17 gm, Oral, Daily, PRN Potassium Chloride (Eqv-K-Tab) 10 mEq oral tablet, extended release, 10 mEq= 1 tab(s), Oral, BID ropinirole 1 mg Tab, 2 mg= 2 tab(s), Oral, Bedtime trazodone, 100 mg, Oral, Bedtime With When Contact Information HARPAL FREDDY 04/12/2024 11:30 AM EST [address] [place] [phone]- Business (1) Additional Instructions: Brianne Jane Within 5 to 7 days [address] [facility], [address] [address] [phone] Business (1) Additional Instructions: Toby Santiago Within 5 to [address] [place] [address]- Business (1) Additional Instructions: Follow up with your primary cardiology team as soon as possible Additional Instructions: Patient is currenct with [facility]. Additional Instructions: Community-Acquired Pneumonia, Adult, [id number] Sepsis, Self Care, Adult Sepsis, Diagnosis, Adult Extracted from: Title:Acute Renal Failure * Author:Jack BRIGGS, Chavira merle Date:04/05/24 Impression and Plan 1.ADIA: From hemodynamic causes. UA with abundant pyuria and microscopic hematuria. Cr peak at 1.9 mg/dL and is improving to 1.6mg/dl. 2.CKD III with baseline Cr 1.5mg/dl: poss from HTN. 3.SOB: CT chest shows small bilateral consolidation. On IV antibiotics. 4. LE edema: 2D echo with grade 1 HFpEF. Okay to resume Lasix 20 mg once a day on discharge 5. Hypertension: Blood pressures are currently low. May need to hold Coreg on discharge. Will sign off at this time. Please reconsult if needed. Extracted from: Title:Progress Note * Author:Briseida Akers MD Date:04/05/24 Impression and Plan 1 elevated troponin which is insignificant given the patient's advanced kidney disease. No ischemic EKG changes and no history of coronary artery disease. Given the patient's overall medical conditions and her advanced kidney disease conservative therapy is recommended including maintaining statin therapy and antiplatelet therapy. Continue beta-skyler therapy. Echocardiogram revealed no wall motion abnormalities and normal ejection fraction, the record indicated having had previous cardiac catheterization treated with no interventions. 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 Antibiotic therapy has been instituted. Diastolic dysfunction could play a role in her symptoms as well, diuretic therapy has been utilized 3 dyslipidemia on low intensity statin with atorvastatin. 4 type II diabetes on metformin managed by PCP 5 stage IIIb chronic kidney disease, nephrology is following, diuretics have been placed on hold Extracted from: Title:APSO Note Author:HARRY AVALOS-Akua CUTLER ate:04/05/24 Johann Patterson () , pt. is a FULL CODE, he states no prolonged code situation. -He has appointed DgtEleni Shah as primary spokesperson for all communication: [phone]. 1. Acute respiratory failure with hypoxia (J96.01: Acute respiratory failure with hypoxia) 2/2 PNA w/ failed outpt. zpak for bronchitis -Denies home 02 or cpap/bipap use - attempt to wean to NC today -Supplemental 02 - BNP 161 -Tx. as below -Low threshold for PCCM consult if not improving in a.m. [facility] High [facility] Minutes [id number] 2. Sepsis (A41.9: Sepsis, unspecified organism) 2/2 PNA w/ failed outpt. Zpak tx. + worsening PCT today - up to 19 -COVID Ag, RVP, Flu A/B - neg -IVF 1L to date -> Monitor closely for fl. overload -04/04: Transition IV ceftriaxone/po azithro to IV zosyn -BlCx - NGTD -Urine cx. - pending -See below 3. Pneumonia (J18.9: Pneumonia, unspecified organism) -CT chest: Small bilateral dependent subsegmental consolidations, posterior lung bases. Bilateral kidneys, cholelithiasis, sigmoid diverticulosis, remote appears umbilical ventral wall hernia -MRSA swab: pending -IV atb - as above -Med nebs, flutter device, mucinex, supplemental 02 -Sputum cx. + gram stain -Legionella antigen - pending -Recommend repeat CXR in 4 weeks as outpatient 4. Pyelonephritis, acute (N10: Acute pyelonephritis) CT A/P: Cholelithiasis, sigmoid diverticulosis, remote repair of supraumbilical ventral wall hernia. Kidneys: Small in size, no hydronephrosis, masses, stones, mild b/l perinephritic fat stranding -Urine cx. - pending -IV zosyn - rx. to dose 5. Elevated troponin I level (R79.89: Other specified abnormal findings of blood chemistry) Pt. reports intermittent CP x 1 week -Max trop 67 - per cardio 2/2 ADIA/CKD, -12 lead ECG: RSR, non acute -Asa, atorvastatin, carvedilol, -BNP 161 -Echo: pending -Consult NOHC: -Trop is insignificant given adv. CKD -Cont. meds asa above -Avoid aggressive diuresis and nephrotoxic meds as much as possible della. if normal EF. 6. Acute kidney injury superimposed on stage 3b chronic kidney disease (N17.9: Acute kidney failure, unspecified) Likely 2/2 dehydration 2/2 sepsis 2/2 PNA c/w furosemide use -Baseline Cr 1.3 -1.5 -IVF as above -Hold furosemide -Renal US - await nephro input -04/04: Bladder scan 397ml, PVR - 90ml -Trend BMP -Avoid nephrotoxic medications as much as possible -Consult nephrology: -DC IVF -Awaiting echo 7. Anemia (D64.9: Anemia, unspecified) 2/2 iron, B12 & folate def. -Baseline hgb. level - 10-11 -Downtrending today -> hold heparin sq -Hemoccult stool - pending -Anemia panel -> Increase ferrous sulfate 325mg to daily (was on M/W/ dosing), miralax daily, folic acid 1g daily, Vt. B12 daily -No acute bleeding noted, hemodynamically stable -Trend labs -Outpt. f/u w/ GI for possible scopes - defer to PCP 8. Hypokalemia (E87.6: Hypokalemia) Replete K/Mag prn -Trend labs 9. Generalized weakness (R53.1: Weakness) Multifactorial: see dx. as above -Tx. as above -PT/OT - pending 10. Dementia (F03.90: Unspecified dementia, unspecified severity, without behavioral disturbance, psychotic disturbance, mood disturbance, and anxiety) Pt. is A&O: person, place, year, unsure of president was able to pick correctly when given multiple choice -Promote sleep/wake cycle -Supportive care, fall precautions 11. HTN (hypertension) (I10: Essential (primary) hypertension) -Carvedilol 12. Hyperlipemia, mixed (E78.2: Mixed hyperlipidemia) -Statin 13. DM2 (diabetes mellitus, type 2) (E11.9: Type 2 diabetes mellitus without complications) Accuchecks AC/HS w/ SSI prn -A1c - 6.7% in 07/2023 -Home regimen: metformin -Hold metformin -Hypoglycemic protocol 14. Hypothyroid (E03.9: Hypothyroidism, unspecified) -Levothyroxine 15. On deep vein thrombosis (DVT) prophylaxis (Z79.899: Other long term care pharmacist (current) drug therapy) -Hold heparin sq 2/2 drop in hgb -SCDs, early ambulation Orders: acetaminophen-hydrocodone, 1 tab(s), Tab, Oral, BID PRN Pain, Routine, Start date 04/04/24 16:19:00 EDT cyanocobalamin, 1,000 microgram = 1 tab(s), Tab, Oral, Daily, Routine, Start date 04/05/24 9:00:00 EDT, 04/04/24 16:24:00 EDT ferrous sulfate, 325 mg = 1 tab(s), Tab, Oral, Daily, NOW, Start date 04/04/24 11:05:00 EDT, 04/04/24 11:05:00 EDT folic acid, 1 mg = 1 tab(s), Tab, Oral, Daily, NOW, Start date 04/04/24 11:06:00 EDT, 04/04/24 11:06:00 EDT perflutren, 1.3 mL, Injection, IV Push, Once, Stop date 04/04/24 14:34:00 EDT, STAT, Start date 04/04/24 14:34:00 EDT piperacillin-tazobactam + Sodium Chloride 0.9% intravenous solution 50 mL, 3.375 gm, 1 EA, Injection, IV Piggyback, q6hrFT, Start date 04/04/24 12:00:00 EDT, 100 mL/hr, Infuse over 30, minute(s), Total Vol (mL): 50 polyethylene glycol 3350, 17 gram = 1 EA, Powder-Recon, Oral, Once, Stop date 04/04/24 11:05:00 EDT, NOW, Start date 04/04/24 11:05:00 EDT, 04/04/24 11:05:00 EDT polyethylene glycol 3350, 17 gram = 1 EA, Powder-Recon, Oral, Once, Stop date 04/04/24 17:00:00 EDT, Routine, Start date 04/04/24 17:00:00 EDT, 04/04/24 16:22:00 EDT potassium chloride, 40 mEq = 2 tab(s), Tab-ER, Oral, Once, Stop date 04/05/24 8:00:00 EDT, Routine, Start date 04/05/24 8:00:00 EDT, 04/05/24 7:04:00 EDT B-Type Natriuretic Peptide Bladder Scan CBC w/ Auto Diff Communication Order Physician to Nursing Consult to Nephrology CT Abdomen/Pelvis w/o Contrast CT Chest w/o Contrast ECG 12 Lead Adult Echo Transthoracic w/ Contrast Flutter Valve Legionella Antigen Urine MRSA Screen Occupational Therapy Evaluate Patient, Develop a Plan of Care and Implement Plan Out of Bed as Tolerated Physical Therapy Evaluate Patient, Develop a Plan of Care and Implement Plan Post Void Residual Procalcitonin Referral to [facility] Stool Occult Blood Troponin 0 Hr. -Plan discussed w/ patient, nursing staff and CRM. This report was transcribed using voice recognition software. Every effort was made to ensure accuracy, however, inadvertently computerized religion professor mistakes may be present. Extracted from: Title:Acute Renal Failure * Author:Cait Santiago MD Date:04/04/24 Impression and Plan 1.ADIA: From unknown cause. UA with abundant pyuria and microscopic hematuria. Cr worsening to 1.9mg/dl. Urine cultures pending. 2.CKD III with baseline Cr 1.5mg/dl: poss from HTN. 3.SOB: CT chest shows small bilateral consolidation. On IV antibiotics. 4.LE edema: No need for IVF. Check 2d echo D/w hospitalist. Extracted from: Title:Progress Note * Author:Briseida Akers MD Date:04/04/24 Impression and Plan 1 elevated troponin which is insignificant given the patient's advanced kidney disease. No ischemic EKG changes and no history of coronary artery disease. Given the patient's overall medical conditions and her advanced kidney disease conservative therapy is recommended including maintaining statin therapy and antiplatelet therapy. Continue beta-skyler therapy. 2 dyspnea in the presence of bilateral pulmonary infiltrates likely representing underlying pulmonary disease more than cardiac disease. Antibiotic therapy has been instituted. Will await the echocardiogram for further confirmation of no significant organic heart disease. 3 dyslipidemia on low intensity statin with atorvastatin. 4 diabetes on metformin managed by PCP 5 early dementia apparently it is mild 6 stage IV chronic kidney disease, nephrology was consulted. Will avoid aggressive diuresis and nephrotoxic medications especially if the patient has normal left ventricular ejection fraction. Extracted from: Title:APSO Note Author:Akua NICHOLSON ate:04/04/24 Johann Patterson () , pt. is a FULL CODE, he states no prolonged code situation. 1. Acute respiratory failure with hypoxia (J96.01: Acute respiratory failure with hypoxia) Failed outpt. zpak for bronchitis -Denies home 02 or cpap/bipap use - currently requires 3Lpm NC to maintain pulse ox > 92% -Supplemental 02 -Tx. as below -Low threshold for PCCM consult if not improving in a.m. 2. Sepsis (A41.9: Sepsis, unspecified organism) 2/2 PNA w/ failed outpt. Zpak tx. + worsening PCT today - up to 16 -COVID Ag, RVP, Flu A/B - neg -IVF 1L to date -> Monitor closely for fl. overload -Transition IV ceftriaxone/po azithro to IV zosyn -CT chest: pending -CT A/P: pending -BlCx - pending -UA - pending - nrsng aware to send louise -Bl. cx. - pending -Urine cx. - pending -See below 3. Pneumonia (J18.9: Pneumonia, unspecified organism) Diagnostics as above - no PNA on CXR -MRSA swab: pending -IV atb - as above -Med nebs, flutter device, mucinex, supplemental 02 -Sputum cx. - pending -Legionella antigen - pending -Recommend repeat CXR in 4 weeks as outpatient 4. Elevated troponin I level (R79.89: Other specified abnormal findings of blood chemistry) Pt. reports intermittent CP x 1 week -Max trop 67 - likely type II [place] 2/2 demand ischemia 2/2 hypoxia/sepsis 2/2 PNA -12 lead ECG: RSR, non acute -Asa, atorvastatin, carvedilol, -Consult NOHC: pending 5. Acute kidney injury superimposed on stage 3b chronic kidney disease (N17.9: Acute kidney failure, unspecified) Likely 2/2 dehydration 2/2 sepsis 2/2 PNA c/w furosemide use -Baseline Cr 1.3 -1.5 -IVF as above -Hold furosemide -Renal US - await nephro input -Bladder scan/PVR - pending -Trend BMP -Avoid nephrotoxic medications as much as possible -Consult nephrology: pending 6. Anemia (D64.9: Anemia, unspecified) 2/2 iron & folate def. -Baseline hgb. level - 10-11 -Anemia panel -> ferrous sulfate 325mg daily (was on M/W/ dosing), miralax daily, folic acid 1g daily -No acute bleeding noted, hemodynamically stable -Trend labs -Outpt. f/u w/ GI for possible scopes - defer to PCP 7. Generalized weakness (R53.1: Weakness) Multifactorial: see dx. as above -Tx. as above -PT/OT - pending 8. Dementia (F03.90: Unspecified dementia, unspecified severity, without behavioral disturbance, psychotic disturbance, mood disturbance, and anxiety) Pt. is A&O: person, place, year, unsure of president was able to pick correctly when given multiple choice -Promote sleep/wake cycle -Supportive care, fall precautions 9. HTN (hypertension) (I10: Essential (primary) hypertension) -Carvedilol 10. Hyperlipemia, mixed (E78.2: Mixed hyperlipidemia) -Statin 11. DM2 (diabetes mellitus, type 2) (E11.9: Type 2 diabetes mellitus without complications) Accuchecks AC/HS w/ SSI prn -A1c - 6.7% in 07/2023 -Home regimen: metformin -Hold metformin -Hypoglycemic protocol 12. Hypothyroid (E03.9: Hypothyroidism, unspecified) -Levothyroxine 13. On deep vein thrombosis (DVT) prophylaxis (Z79.899: Other long term care pharmacist (current) drug therapy) -Heparin sq with early ambulation Orders: piperacillin-tazobactam + Sodium Chloride 0.9% intravenous solution 50 mL, 3.375 gm, 1 EA, Injection, IV Piggyback, q6hrFT, Start date 04/04/24 12:00:00 EDT, 100 mL/hr, Infuse over 30, minute(s), Total Vol (mL): 50 Bladder Scan Communication Order Physician to Nursing Consult to Cardiology Consult to Nephrology CT Abdomen/Pelvis w/o Contrast CT Chest w/o Contrast Extra Lav Tube Ferritin Folate Level Iron Level Lactate Dehydrogenase Post Void Residual Procalcitonin Referral to [facility] Reticulocyte Count TIBC Calculated TSH With T4fr Reflex Vitamin B12 Level -Plan discussed w/ patient, nursing staff and CRM. This report was transcribed using voice recognition software. Every effort was made to ensure accuracy, however, inadvertently computerized religion professor mistakes may be present. Addendum by Akua NICHOLSON on April 04, 2024 12:47:39 EDT BNP, echo - pending, DC IVF per nephro. Addendum by Akua NICHOLSON on April 04, 2024 14:20:30 EDT Johann Patterson called in and stated that he would prefer his step dgt. Lilian Shah be point of contact for all information [phone] Extracted from: Title:Admission H & P Author:Tika CHRISTENSEN DO Date:04/04/24 1. Pneumonia (J18.9: Pneumon ia, unspecified organism) Patient was started on IV ceftriaxone. Patient took azithromycin at dinnertime. The presumption is that she took azithromycin 250 mg. As such we will start patient on azithromycin 500 mg p.o. daily to start at 0900. Sputum culture ordered. DuoNeb as needed. Will check respiratory viral PCR and procalcitonin. 2. Sepsis (A41.9: Sepsis, unspecified organism) Fever, tachycardia, pneumonia elevated lactic acid. Patient not given fluid bolus because of concern for fluid overload. Will start patient on 0.9 normal saline at 75 mL/h x 1 L. Will recheck lactic acid per protocol. Antibiotics as noted above. 3. Acute respiratory failure with hypoxia (J96.01: Acute respiratory failure with hypoxia) Oxygen as needed. DuoNeb as needed. 4. Elevated troponin I level (R79.89: Other specified abnormal findings of blood chemistry) Suspect demand ischemia. Will cycle cardiac enzymes and if it rises significantly we will consult cardiology. No active anginal complaints at time of my exam 5. ADIA (acute kidney injury) (N17.9: Acute kidney failure, unspecified) will avoid nephrotoxic drugs. Recheck creatinine on 04/06/2024. 6. CKD stage 3b, GFR 30-44 ml/min (N18.32: Chronic kidney disease, stage 3b) baseline gfr 35-45 mL/min 7. Hyperlipemia, mixed (E78.2: Mixed hyperlipidemia) Resume statin once dose verified 8. Dementia (F03.90: Unspecified dementia, unspecified severity, without behavioral disturbance, psychotic disturbance, mood disturbance, and anxiety) Supportive care. 9. HTN (hypertension) (I10: Essential (primary) hypertension) Resume home medications once reconciled. Hydralazine iv prn. see orders. 10. Hypothyroid (E03.9: Hypothyroidism, unspecified) Resume home Synthroid dose once verified 11. DM2 (diabetes mellitus, type 2) (E11.9: Type 2 diabetes mellitus without complications) Diabetic diet. Resume home medication once reconciled. Sliding scale insulin. 12. On deep vein thrombosis (DVT) prophylaxis (Z79.899: Other long term care pharmacist (current) drug therapy) SCD, heparin Orders: acetaminophen, 650 mg = 2 tab(s), Tab, Oral, q6hr PRN Pain, Routine, Start date 04/04/24 2:43:00 EDT, 04/04/24 2:43:00 EDT albuterol-ipratropium, 3 mL, Soln-Inh, Inhalation, QID PRN Dyspnea for 30 day(s), Stop date 05/04/24 2:41:00 EST, Routine, Start date 04/04/24 2:42:00 EDT azithromycin, 500 mg = 2 tab(s), Tab, Oral, Daily for 10 day(s), Stop date 04/14/24 8:59:00 EST, Routine, Start date 04/04/24 9:00:00 EDT, 04/04/24 2:42:00 EDT benzonatate, 100 mg = 1 cap(s), Cap, Oral, TID PRN Cough, Routine, Start date 04/04/24 2:42:00 EDT, 04/04/24 2:42:00 EDT ceftriaxone + Sodium Chloride 0.9% intravenous solution 50 mL, 1,000 mg = 1 EA, Injection, IV Piggyback, q24hr, Routine, Start date 04/05/24 3:00:00 EDT, 100 mL/hr, Infuse over 30 minute(s) diphenhydrAMINE, 25 mg = 1 cap(s), Cap, Oral, q6hr PRN Itching, Routine, Start date 04/04/24 2:43:00 EDT, 04/04/24 2:43:00 EDT glucose, 50 mL, Soln-IV, IV Push, Once PRN Blood glucose, Routine, Start date 04/04/24 2:43:00 EDT guaifenesin, 1,200 mg = 2 tab(s), Tab-ER, Oral, q12hr, Routine, Start date 04/04/24 3:00:00 EDT, 04/04/24 2:42:00 EDT heparin, 5,000 unit(s) = 1 mL, Injection, SubCutaneous, BID for 30 day(s), Stop date 05/04/24 8:59:00 EST, Routine, Start date 04/04/24 9:00:00 EDT, 04/04/24 2:43:00 EDT hydrALAZINE, 10 mg = 0.5 mL, Injection, IV Push, q6hr PRN Other (see comment), Routine, Start date 04/04/24 2:43:00 EDT, 04/04/24 2:43:00 EDT insulin lispro, 0-10 Unit(s), Injection-Insulin, SubCutaneous, QIDACHS, Routine, Start date 04/04/24 7:30:00 EDT ondansetron, 4 mg = 2 mL, Injection, IV Push, q6hr PRN Nausea, Routine, Start date 04/04/24 2:43:00 EDT, 04/04/24 2:43:00 EDT Sodium Chloride 0.9% intravenous solution 1,000 mL, 1,000 mL, IV, 75 mL/hr, Routine, Start date 04/04/24 2:45:00 EDT, 13.3 hour(s), Total volume (mL): 1,000, 86.1 kg, 1.94, m2 Ambulate with Assistance Basic Metabolic Panel Below the Knee Intermittent Pneumatic Compression Device Cardiac Monitoring Cardiac Monitoring Diabetic/Calorie Control Diet Hypoglycemia Protocol Responsive Patient Hypoglycemia Protocol Unresponsive Patient Notify Provider Vital Signs Notify Provider Vital Signs Oxygen Protocol Precautions Procalcitonin Respiratory Panel by PCR Resuscitation Status - Full Routine Capillary Glucose POC Sputum Culture Vital Signs Weight Anticipated stay greater than 2 midnights due to above Extracted from: Title:ED Note Author:Terry Delvalle DO Date :04/04/24 1. CKD stage 3b, GFR 30-44 m l/min (N18.32: Chronic kidney disease, stage 3b) Acute respiratory failure with hypoxia (J96.01: Acute respiratory failure with hypoxia) ADIA (acute kidney injury) (N17.9: Acute kidney failure, unspecified) Elevated troponin I level (R79.89: Other specified abnormal findings of blood chemistry) Pneumonia (J18.9: Pneumonia, unspecified organism) Orders: acetaminophen + Generic Diluent 100 mL, 1,000 mg = 100 mL, Soln-IV, IV Piggyback, Once, Stop date 04/04/24 0:41:00 EDT, STAT, Start date 04/04/24 0:41:00 EDT, 400 mL/hr, Infuse over 15 minute(s) ceftriaxone + Sodium Chloride 0.9% intravenous solution 50 mL, 1,000 mg = 1 EA, IV Piggyback, Once, Stop date 04/04/24 1:41:00 EDT, STAT, Start date 04/04/24 1:41:00 EDT, 100 mL/hr, Infuse over 30 minute(s), 04/04/24 1:41:00 EDT Sodium Chloride 0.9% intravenous solution, 500 mL, Soln-IV, IV, Once, Stop date 04/04/24 0:37:00 EDT, STAT, Start date 04/04/24 0:37:00 EDT, 500 mL/hr, Infuse over 1, hour(s) Blood Culture Charcoal Blood Culture Charcoal CBC w/ Auto Diff Comprehensive Metabolic Panel Continuous Pulse Oximetry ECG 12 Lead Adult ED Cardiac Monitoring eGFR Influenza A&B Ag Lactic Acid Lactic Acid Lactic Acid Oxygen Therapy PT & PTT Rapid COVID Antigen ([facility] [place]) Sputum Culture Troponin Troponin 1 Hr. Troponin 3 Hr. UA with Cult Rflx XR Chest Single View [facility] 10-31-2024 NoteProgress Note-Physician Patient: NADIA PATTERSON Age: 78 years Sex: Female : 1945 Associated Diagnoses: None Author: Toby Santiago MD Chief Complaint 04/04/2024 3:47 EDT Cough 04/04/2024 0:30 EDT states was started on zpak for bronchitis. cough and sob. pt was 86% on room air when squad arrived. harsh cough noted Interval History no events overnight. Patient up in chair and eating lunch. Review of Systems Constitutional: Negative except as documented in history of present illness. Eye: No double vision, No visual disturbances. Ear/Nose/Mouth/Throat Respiratory: No shortness of breath, No cough, No sputum production, No hemoptysis. Cardiovascular: No chest pain, No palpitations. Gastrointestinal: No nausea, No vomiting, No diarrhea, No abdominal pain. Genitourinary: No dysuria, No hematuria. Hematology/Lymphatics: No bleeding tendency, No swollen lymph glands. Endocrine: No excessive thirst, No polyuria, No cold intolerance, No heat intolerance. Immunologic: No recurrent fevers, No recurrent infections. Musculoskeletal: No neck pain, No joint pain, No muscle pain. Integumentary: No rash, No pruritus, No skin lesion. Neurologic: Alert and oriented X4, No numbness, No tingling. Psychiatric: No anxiety, No depression, No yasemin. Health Status Allergies: Allergic Reactions (Selected) Severity Not Documented Stadol- No reactions were documented., Allergies (1) Active Severity Reaction Stadol None Documented Current medications: (Selected) Inpatient Medications Ordered Benadryl 25 mg Cap: 25 mg = 1 cap(s), Cap, Oral, q6hr PRN Itching, Routine, Start date 04/04/24 2:43:00 EDT, 04/04/24 2:43:00 EDT Dextrose 50% Soln-IV: 50 mL, Soln-IV, IV Push, Once PRN Blood glucose, Routine, Start date 242:43:00 EDT DuoNeb 2.5 mg-0.5 mg/3 mL Soln-Inh: 3 mL, Soln-Inh, Inhalation, QID PRN Dyspnea for 30 day(s), Stopdate 05/04/24 2:41:00 EST, Routine, Start date 04/04/24 2:42:00 EDT HumaLOG Sliding Scale: 0-10 Unit(s), Injection-Insulin, SubCutaneous, QIDACHS, Routine, Start date 04/04/24 7:30:00 EDT Lyrica 100 mg Cap: 100 mg = 1 cap(s), Cap, Oral, BID, Routine, Start date 04/04/24 9:00:00 EDT, 04/04/24 6:33:00 EDT Mucinex 600 mg Tab-ER: 1,200 mg = 2 tab(s), Tab-ER, Oral, q12hr, Routine, Start date 04/04/24 3:00:00 EDT, 04/04/24 2:42:00 EDT Hendley 325 mg-5 mg oral tablet: 1 tab(s), Tab, Oral, BID PRN Pain, Routine, Start date 04/04/24 16:19:00 EDT Protonix 40 mg Tab-DR: 40 mg = 1 tab(s), Tab-DR, Oral, Daily, NOW, Start date 04/04/24 17:38:00 EDT, 04/04/24 17:38:00 EDT Requip 1 mg Tab: 2 mg = 2 tab(s), Tab, Oral, Bedtime, Routine, Start date 04/04/24 21:00:00 EDT Tessalon 100 mg Cap: 100 mg = 1 cap(s), Cap, Oral, TID PRN Cough, Routine, Start date 04/04/24 2:42:00 EDT, 04/04/24 2:42:00 EDT Zofran 4 mg/2 mL Injection: 4 mg = 2 mL, Injection, IV Push, q6hr PRN Nausea, Routine, Start date 04/04/24 2:43:00 EDT, 04/04/24 2:43:00 EDT acetaminophen 325 mg Tab: 650 mg = 2 tab(s), Tab, Oral, q6hr PRN Pain, Routine, Start date 242:43:00 EDT, 04/04/24 2:43:00 EDT aspirin 81 mg Oral EC Tab: 81 mg = 1 tab(s), Tab-EC, Oral, Daily, Routine, Start date 04/04/24 9:00:00 EDT, 04/04/24 6:31:00 EDT atorvastatin 20 mg Tab: 10 mg = 0.5 tab(s), Tab, Oral, Bedtime, Routine, Start date 04/04/24 21:00:00 EDT, 04/04/24 6:31:00 EDT carvedilol 3.125 mg Tab: 3.125 mg = 1 tab(s), Tab, Oral, Supper, Routine, Start date 04/04/24 17:00:00 EDT cyanocobalamin 1000 mcg Tab: 1,000 microgram = 1 tab(s), Tab, Oral, Daily, Routine, Start date 04/05/24 9:00:00 EDT, 04/04/24 16:24:00 EDT ferrous sulfate 325 mg Tab: 325 mg = 1 tab(s), Tab, Oral, Daily, NOW, Start date 04/04/24 11:05:00 EDT, 04/04/24 11:05:00 EDT folic acid 1 mg Tab: 1 mg = 1 tab(s), Tab, Oral, Daily, NOW, Start date 04/04/24 11:06:00 EDT, 04/04/24 11:06:00 EDT hydrALAZINE 20 mg/mL Inj: 10 mg = 0.5 mL, Injection, IV Push, q6hr PRN Other (see comment), Routine, Start date 04/04/24 2:43:00 EDT, 04/04/24 2:43:00 EDT levothyroxine 50 mcg (0.05 mg) Tab: 50 mcg = 1 tab(s), Tab, Oral, Daily, Routine, Start date 04/05/24 6:30:00 EDT, 04/04/24 6:32:00 EDT magnesium oxide 400 mg Tab: 400 mg = 1 tab(s), Tab, Oral, Daily, Routine, Start date 04/04/24 9:00:00 EDT, 04/04/24 6:32:00 EDT oxybutynin 5 mg ER Tab: 5 mg = 1 tab(s), Tab-ER, Oral, Daily, Routine, Start date 04/04/24 9:00:00 EDT, 04/04/24 6:32:00 EDT piperacillin-tazobactam + Sodium Chloride 0.9% intravenous solution 50 mL: 3.375 gm, 1 EA, Injection, IV Piggyback, q6hrFT, Start date 04/04/24 12:00:00 EDT, 100 mL/hr, Infuse over 30, minute(s), Total Vol (mL): 50 traZODONE 50 mg Tab: 100 mg = 2 tab(s), Tab, Oral, Bedtime, Routine, Start date 04/04/24 21:00:00 EDT, 04/04/24 6:33:00 EDT Suspended heparin 5000 units/mL Inj: 5,000 unit(s) = 1 mL, Injection, SubCutaneous, q8hrFT for 30 day(s), Stop date 05/04/24 8:23:00 EST, NOW, Start date 04/04/24 8:24:00 EDT Prescriptions Prescribed nathaly (more content not included)...[facility]: Result Comment: Electronically Signed By: Jack BRIGGS, Toby\.br\Date and Time Signed: 04/05/24 15:[id number] NoteProgress Note-Physician Patient: NADIA PATTERSON Age: 78 years Sex: Female : 1945 Associated Diagnoses: None Author: Briseida Akers MD Subjective Patient is a 78-year-old female who I was asked to see by the hospitalist for abnormal troponin andabnormal BNP. The patient presented with dyspnea. I could not find old records on this patient in our system. The daughter who is the caregiver was not available. The patient at the time of my visit was undergoing an echocardiogram and was not available for my physical examination or interview. Records from the recent admission and ER visits were reviewed. The case was discussed with the hospitalist. I reviewed the patient's EKGs and imaging studies and her lab data. I will be seeing her formally in consultation tomorrow. By then I will have the echocardiogram to review. The patient presentedwith progressive dyspnea and was found to have bilateral lower lobe infiltrates. She was hypoxemic on presentation and in sinus tachycardia. She was found to have advanced kidney disease as well witha GFR of 26 mL/min. Her x-ray did not show any evidence of failure but her BNP was above normal my small margin. No cardiac arrhythmias have been noted since admission. There is no reported symptoms of chest pain. Patient has no history of coronary artery disease. Her medical regimen indicated thatshe has hyperlipidemia on atorvastatin and hypertension on carvedilol. She has been chronically treated with Lasix and thyroid supplement, she is diabetic on metformin as well. We have no record of myocardial ischemia evaluation in the past. Patient apparently has history of mild dementia. Progress note cardiology 04/05/2024: Patient was interviewed today and the case was discussed with the patient's significant other and her daughter. I learned that she has followed with [facility] cardiology in [place] and has had previous cardiac catheterization but with no intervention. She follows with cardiology at [facility] in [place] on regular basis. She has been having intermittent symptoms of resting chest pain. She does have nitroglycerin which she has not been utilizing. Her echocardiogram today demonstrated normal ejection fraction with no wall motion abnormalities. No significant valvular heart disease were noted. She does have stage I diastolic dysfunction with mildly dilated left atrium. Her kidney function has improved creatinine down to 1.6 mg/dL. Her blood pressure is normal, she is resting comfortably and denies any dyspnea. She was noted to be cheerful and with sense of humor. I discussed with daughter and significant other that the present medical therapy will be left unchanged. We are not going to pursue any ischemic evaluation and explained to them the fin dings of the lab data specifically with the BNP and the troponin. I suggested to let her software configuration specialist decide whether further cardiac investigation will be worthwhile or not. Diuretic therapy can be resumed when appropriate. This could be guided by nephrology recommendations Health Status Allergies: Allergic Reactions (All) Severity Not Documented Stadol- No reactions were documented. Current medications: Home Medications (28) Active aspirin 81 mg Oral EC Tab 81 mg = 1 tab(s), Oral, Daily atorvastatin 10 mg Tab 10 mg = 1 tab(s), Oral, Bedtime azithromycin 250 mg Tab 250 mg = 1 tab(s), Oral, Daily carvedilol 3.125 mg, Oral, Daily carvedilol 6.25 mg Tab 6.25 mg = 1 tab(s), Oral, BID cefuroxime 500 mg oral tablet 500 mg = 1 tab(s), Oral, BID cetirizine 10 mg Tab 10 mg = 1 tab(s), PRN, Oral, Daily cholecalciferol 10,000 intl units oral capsule 250 mcg = 1 cap(s), Oral, MonWedFri Colace 100 mg Cap 100 mg = 1 cap(s), PRN, Oral, BID ferrous sulfate 325 mg Tab 325 mg = 1 tab(s), Oral, MonWedFri furosemide 40 mg Tab 40 mg = 1 tab(s), Oral, Daily levothyroxine 50 mcg (0.05 mg) Tab 50 mcg = 1 tab(s), Oral, Daily Lyrica 100 mg, Oral, BID magnesium oxide 400 mg oral capsule 400 mg = 1 cap(s), Oral, Daily metformin 500 mg oral tablet 500 mg = 1 tab(s), Oral, BID Myrbetriq 50 mg, Oral, Daily Myrbetriq 50 mg oral tablet, extended release nitroglycerin 0.4 mg sublingual Tab 0.4 mg = 1 tab(s), PRN, SubLingual, q5min Hendley 325 mg-5 mg oral tablet 1 tab(s), PRN, Oral, BID nystatin Top 100,000 units/g Pwdr 1 chantal, Topical, BID polyethylene glycol 3350 17 gram packet 17 gm, PRN, Oral, Daily Potassium Chloride (Eqv-K-Tab) 10 mEq oral tablet, extended release 10 mEq = 1 tab(s), Oral, BID pregabalin 150 mg, Oral, BID ropinirole 2 mg, Oral, Daily ropinirole 4 mg oral tablet 4 mg = 1 tab(s), Oral, Supper trazodone 100 mg, Oral, Bedtime traZODONE 150 mg Tab 150 mg = 1 tab(s), Oral, Once a day (at bedtime) Tylenol Extra Strength 500 mg oral tablet 1,000 mg = 2 tab(s), Oral, q6hr , Medications (25) Active Scheduled: (17) aspirin 81 mg Oral EC Tab [F] 81 mg 1 tab(s), Oral, Daily atorvastatin 20 mg Tab [F] 10 mg 0.5 tab(s) (more content not included)...[facility] HospitalComment on above:Result Comment: Electronically Signed By: Delphine BRIGGS, Briseida\.br\Date and Time Signed: 04/05/24 14:19 [id number] Note Echocardiology Procedure Exam Date/Time Accession # Ordering Dr. Morley Transthoracic w/ 04/04/2024 15:12 EDT [id number] Akua NICHOLSON Contrast CPT code C8929 Reason for Exam (Echo Transthoracic w/ Contrast) Shortness of breath (SOB) Report [facility] [address] [place] [address] Adult Echocardiogram Report Name: NADIA PATTERSON Study Date: 04/04/2024 02:05 PM BP: 101/57 mmHg Patient Location: [address] [place] [address] Bed(s) [facility] [place] HR: 69 : 1945 Gender: Female Height: 62 in Age: 78 yrs Ethnicity: T Weight: 196 lb Reason For Study: Shortness of breath (SOB) BSA: 1.9 m2 History: HTN, DM, CKD, Anemia, Dementia Ordering Physician: Akua MCDONALD Performed By: Joana Beckman RDCS Interpretation Summary The left ventricle is normal in size. There is normal left ventricular wall thickness. The left ventricular wall motion is normal. Ejection Fraction = 65-70%. Grade I diastolic dysfunction, (abnormal relaxation pattern). There is mild tricuspid regurgitation. Right ventricular systolic pressure is normal. Procedure A complete two-dimensional transthoracic echocardiogram was performed using contrast (2D, M-mode, spectral and color flow Doppler). Study quality is good. Left Ventricle The left ventricle is normal in size. There is normal left ventricular wall thickness. Ejection Fraction = 65-70%. The left ventricular wall motion is normal. Grade I diastolic dysfunction, (abnormal relaxation pattern). Left Atrium Echocardiology Report The left atrium is mildly dilated. Right Atrium The right atrium is grossly normal. Right Ventricle The right ventricular systolic function is normal. Aortic Valve The trileaflet aortic valve opening is normal. Mitral Valve Mild thickening of the mitral valve leaflets. Tricuspid Valve The tricuspid valve is grossly normal. There is mild tricuspid regurgitation. Right ventricular systolic pressure is normal. Pulmonic Valve The pulmonic valve is normal. Arteries The aortic root is normal in size. Venous The inferior vena cava is normal in size, and collapses normally with respiration. Effusion There is no pericardial effusion. There is no pleural effusion noted on this exam. MMode/2D Measurements & Calculations RVDd: 3.4 cm LVIDd: 4.4 cm FS: 40.2 % Ao root diam: 2.4 cm IVSd: 0.92 cm LVIDs: 2.7 cm EDV(Teich): 89.9 ml LVPWd: 1.0 cm ESV(Teich): 26.0 ml Ao root area: 4.6 cm2 EF(Teich): 71.1 % LA dimension: 4.3 cm asc Aorta Diam: 3.4 cm LVOT diam: 1.8 cm LVLd ap4: 6.9 cm EDV(MOD-sp2): 41.1 ml LVOT area: 2.6 cm2 EDV(MOD-sp4): 63.4 ml ESV(MOD-sp2): 16.7 ml LVLs ap4: 5.7 cm EF(MOD-sp2): 59.4 % ESV(MOD-sp4): 23.5 ml EF(MOD-sp4): 62.9 % SV(MOD-sp4): 39.9 ml TAPSE: 1.9 cm Ao Sinus of Valsalva: 2.5 cm Ao Sinotubular Junction: 2.1 cm RVIDd/LVIDd: 0.77 EF (MOD-bp): 62.8 % LA Vol Index: 20.3 ml/m2 Doppler Measurements & Calculations MV E max jocy: 95.8 cm/sec MV dec time: 0.21 sec Ao V2 max: 131.2 cm/sec LV V1 max P.6 mmHg MV A max jocy: 105.5 cm/sec Ao max P.9 mmHg LV V1 max: 94.3 cm/sec Echocardiology Report MV E/A: 0.91 Lat Peak E' Jocy: 8.5 cm/sec LYN(V,D): 1.9 cm2 E/E' Lat: 11.3 Med Peak E' Jocy: 5.8 cm/sec E/E' Med: 16.6 TR max jocy: 257.9 cm/sec RAP systole: 3.0 mmHg AV VR: 0.72 TR max P.6 mmHg RVSP(TR): 29.6 mmHg FINAL REPORT Dictated: 04/04/2024 2:05 pm Briseida Akers MD Signed (Electronic Signature): 04/05/2024 1:39 pm Signed by: Briseida Akers MD Transcribed by: [place] Technologist: [facility]10-31-2024 Note Interdisciplinary Note - PT PT Evaluation completed with an . Pt was able to perform bed mobility with CGA, but does need CGA/Min A to ambulate. Pt does have some unsteadiness when ambulating with FWW along with increased weakness. Will continue to follow daily. SNF recommended at this time, but do anticipate improvement. Will follow [facility] with [facility]10-31-2024 NoteProgress Note-Physician Assessment/Plan Johann Patterson () [phone], pt. is a FULL CODE, he states no prolonged code situation. -He has appointed DgtEleni Shah as primary spokesperson for all communication: [phone]. 1. Acute respiratory failure with hypoxia (J96.01: Acute respiratory failure with hypoxia) 2/2 PNA w/ failed outpt. zpak for bronchitis -Denies home 02 or cpap/bipap use - attempt to wean to NC today -Supplemental 02 -BNP 161 -Tx. as below -Low threshold for PCCM consult if not improving in [facility].m. [facility] High 50 Minutes [id number] 2. Sepsis (A41.9: Sepsis, unspecified organism) 2/2 PNA w/ failed outpt. Zpak tx. + worsening PCT today - up to 19 -COVID Ag, RVP, Flu A/B - neg -IVF 1L to date -> Monitor closely for fl. overload -04/04: Transition IV ceftriaxone/po azithro to IV zosyn -BlCx - NGTD -Urine cx. - pending -See below 3. Pneumonia (J18.9: Pneumonia, unspecified organism) -CT chest: Small bilateral dependent subsegmental consolidations, posterior lung bases. Bilateral kidneys, cholelithiasis, sigmoid diverticulosis, remote appears umbilical ventral wall hernia -MRSA swab: pending -IV atb - as above -Med nebs, flutter device, mucinex, supplemental 02 -Sputum cx. + gram stain -Legionella antigen - pending -Recommend repeat CXR in 4 weeks as outpatient 4. Pyelonephritis, acute (N10: Acute pyelonephritis) CT A/P: Cholelithiasis, sigmoid diverticulosis, remote repair of supraumbilical ventral wall hernia. Kidneys: Small in size, no hydronephrosis, masses, stones, mild b/l perinephritic fat stranding -Urine cx. - pending -IV zosyn - rx. to dose 5. Elevated troponin I level (R79.89: Other specified abnormal findings of blood chemistry) Pt. reports intermittent CP x 1 week -Max trop 67 - per cardio 2/2 ADIA/CKD, -12 lead ECG: RSR, non acute -Asa, atorvastatin, carvedilol, -BNP 161 -Echo: pending -Consult [facility]: -Trop is insignificant given adv. CKD -Cont. meds asa above -Avoid aggressive diuresis and nephrotoxic meds as much as possible della. if normal EF. 6. Acute kidney injury superimposed on stage 3b chronic kidney disease (N17.9: Acute kidney failure, unspecified) Likely 2/2 dehydration 2/2 sepsis 2/2 PNA c/w furosemide use -Baseline Cr 1.3 -1.5 -IVF as above -Hold furosemide -Renal US - await nephro input -04/04: Bladder scan 397ml, PVR - 90ml -Trend BMP -Avoid nephrotoxic medications as much as possible -Consult nephrology: -DC IVF -Awaiting echo 7. Anemia (D64.9: Anemia, unspecified) 2/2 iron, B12 & folate def. -Baseline hgb. level - 10-11 -Downtrending today -> hold heparin sq -Hemoccult stool - pending -Anemia panel -> Increase ferrous sulfate 325mg to daily (was on M/W/F dosing), miralax daily, folic acid 1g daily, Vt. B12 daily -No acute bleeding noted, hemodynamically stable -Trend labs -Outpt. f/u w/ GI for possible scopes - defer to PCP 8. Hypokalemia (E87.6: Hypokalemia) Replete K/Mag prn -Trend labs 9. Generalized weakness (R53.1: Weakness) Multifactorial: see dx. as above -Tx. as above -PT/OT - pending 10. Dementia (F03.90: Unspecified dementia, unspecified severity, without behavioral disturbance, psychotic disturbance, mood disturbance, and anxiety) Pt. is A&O: person, place, year, unsure of president was able to pick correctly when given multiple choice -Promote sleep/wake cycle -Supportive care, fall precautions 11. HTN (hypertension) (I10: Essential (primary) hypertension) -Carvedilol 12. Hyperlipemia, mixed (E78.2: Mixed hyperlipidemia) -Statin 13. DM2 (diabetes mellitus, type 2) (E11.9: Type 2 diabetes mellitus without complications) Accuchecks AC/HS w/ SSI prn -A1c - 6.7% in 07/2023 -Home regimen: metformin -Hold metformin -Hypoglycemic protocol 14. Hypothyroid (E03.9: Hypothyroidism, unspecified) -Levothyroxine 15. On deep vein thrombosis (DVT) prophylaxis (Z79.899: Other senior care (current) drug therapy) -Hold heparin sq 2/2 drop in hgb -SCDs, early ambulation Orders: acetaminophen-hydrocodone, 1 tab(s), Tab, Oral, BID PRN Pain, Routine, Start date 04/04/24 16:19:00EDT cyanocobalamin, 1,000 microgram = 1 tab(s), Tab, Oral, Daily, Routine, Start date 04/05/24 9:00:00 EDT, 04/04/24 16:24:00 EDT ferrous sulfate, 325 mg = 1 tab(s), Tab, Oral, Daily, NOW, Start date 04/04/24 11:05:00 EDT, 04/04/24 11:05:00 EDT folic acid, 1 mg = 1 tab(s), Tab, Oral, Daily, NOW, Start date 04/04/24 11:06:00 EDT, 04/04/24 11:06:00 EDT perflutren, 1.3 mL, Injection, IV Push, Once, Stop date 04/04/24 14:34:00 EDT, STAT, Start date 04/04/24 14:34:00 EDT piperacillin-tazobactam + Sodium Chloride 0.9% intravenous solution 50 mL, 3.375 gm, 1 EA, Injection, IV Piggyback, q6hrFT, Start date 04/04/24 12:00:00 EDT, 100 mL/hr, Infuse over 30, minute(s), Total Vol (mL): 50 polyethylene glycol 3350, 17 gram = 1 EA, Powder (more content not included)... [facility] on [facility]:Result Comment: Electronically Signed By: Akua NICHOLSON\.br\Date and Time Signed: 04/05/24 09:59 EDT\.br\Electronically Co-Signed By: Miguel Ramires DO\.br\Date and Time Co-Signed: 04/05/24 10:03 [id number] NoteConsultation Note Patient: NADIA PATTERSON Age: 78 years Sex: Female : 1945 Associated Diagnoses: None Author: Toby Santiago MD Chief Complaint 04/04/2024 3:47 EDT Cough 04/04/2024 0:30 EDT states was started on zpak for bronchitis. cough and sob. pt was 86% on room air when squad arrived. harsh cough noted Interval History 78y/o WF with HTN presents to the hospital with SOB; she was previously given azithromycin for bronchitis and failed therapy. We are being consulted for evaluation of elevated Cr of 1.9mg/dl. She hasCKD III with baseline Cr 1.5mg/dl. Pt has been on IVF; pt has had LE edema. She is currently on ceftriaxone and azithromycin. Review of Systems Constitutional: Negative except as documented in history of present illness. Eye: No double vision, No visual disturbances. Ear/Nose/Mouth/Throat Respiratory: No shortness of breath, No cough, No sputum production, No hemoptysis. Cardiovascular: No chest pain, No palpitations. Gastrointestinal: No nausea, No vomiting, No diarrhea, No abdominal pain. Genitourinary: No dysuria, No hematuria. Hematology/Lymphatics: No bleeding tendency, No swollen lymph glands. Endocrine: No excessive thirst, No polyuria, No cold intolerance, No heat intolerance. Immunologic: No recurrent fevers, No recurrent infections. Musculoskeletal: No neck pain, No joint pain, No muscle pain. Integumentary: No rash, No pruritus, No skin lesion. Neurologic: Alert and oriented X4, No numbness, No tingling. Psychiatric: No anxiety, No depression, No yasemin. Health Status Allergies: Allergic Reactions (Selected) Severity Not Documented Stadol- No reactions were documented., Allergies (1) Active Severity Reaction Stadol None Documented Current medications: (Selected) Inpatient Medications Ordered Benadryl 25 mg Cap: 25 mg = 1 cap(s), Cap, Oral, q6hr PRN Itching, Routine, Start date 04/04/24 2:43:00 EDT, 04/04/24 2:43:00 EDT Dextrose 50% Soln-IV: 50 mL, Soln-IV, IV Push, Once PRN Blood glucose, Routine, Start date 242:43:00 EDT DuoNeb 2.5 mg-0.5 mg/3 mL Soln-Inh: 3 mL, Soln-Inh, Inhalation, QID PRN Dyspnea for 30 day(s), Stopdate 05/04/24 2:41:00 EST, Routine, Start date 04/04/24 2:42:00 EDT HumaLOG Sliding Scale: 0-10 Unit(s), Injection-Insulin, SubCutaneous, QIDACHS, Routine, Start date 04/04/24 7:30:00 EDT Lyrica 100 mg Cap: 100 mg = 1 cap(s), Cap, Oral, BID, Routine, Start date 04/04/24 9:00:00 EDT, 04/04/24 6:33:00 EDT Mucinex 600 mg Tab-ER: 1,200 mg = 2 tab(s), Tab-ER, Oral, q12hr, Routine, Start date 04/04/24 3:00:00 EDT, 04/04/24 2:42:00 EDT Requip 1 mg Tab: 2 mg = 2 tab(s), Tab, Oral, Bedtime, Routine, Start date 04/04/24 21:00:00 EDT Tessalon 100 mg Cap: 100 mg = 1 cap(s), Cap, Oral, TID PRN Cough, Routine, Start date 04/04/24 2:42:00 EDT, 04/04/24 2:42:00 EDT Zofran 4 mg/2 mL Injection: 4 mg = 2 mL, Injection, IV Push, q6hr PRN Nausea, Routine, Start date 04/04/24 2:43:00 EDT, 04/04/24 2:43:00 EDT acetaminophen 325 mg Tab: 650 mg = 2 tab(s), Tab, Oral, q6hr PRN Pain, Routine, Start date 242:43:00 EDT, 04/04/24 2:43:00 EDT aspirin 81 mg Oral EC Tab: 81 mg = 1 tab(s), Tab-EC, Oral, Daily, Routine, Start date 04/04/24 9:00:00 EDT, 04/04/24 6:31:00 EDT atorvastatin 20 mg Tab: 10 mg = 0.5 tab(s), Tab, Oral, Bedtime, Routine, Start date 04/04/24 21:00:00 EDT, 04/04/24 6:31:00 EDT carvedilol 3.125 mg Tab: 3.125 mg = 1 tab(s), Tab, Oral, Supper, Routine, Start date 04/04/24 17:00:00 EDT ferrous sulfate 325 mg Tab: 325 mg = 1 tab(s), Tab, Oral, Daily, NOW, Start date 04/04/24 11:05:00 EDT, 04/04/24 11:05:00 EDT ferrous sulfate 325 mg Tab: 325 mg = 1 tab(s), Tab, Oral, MonWedFri, Routine, Start date 04/04/24 9:00:00 EDT, 04/04/24 6:32:00 EDT folic acid 1 mg Tab: 1 mg = 1 tab(s), Tab, Oral, Daily, NOW, Start date 04/04/24 11:06:00 EDT, 04/04/24 11:06:00 EDT heparin 5000 units/mL Inj: 5,000 unit(s) = 1 mL, Injection, SubCutaneous, q8hrFT for 30 day(s), Stop date 05/04/24 8:23:00 EST, NOW, Start date 04/04/24 8:24:00 EDT hydrALAZINE 20 mg/mL Inj: 10 mg = 0.5 mL, Injection, IV Push, q6hr PRN Other (see comment), Routine, Start date 04/04/24 2:43:00 EDT, 04/04/24 2:43:00 EDT levothyroxine 50 mcg (0.05 mg) Tab: 50 mcg = 1 tab(s), Tab, Oral, Daily, Routine, Start date 04/05/24 6:30:00 EDT, 04/04/24 6:32:00 EDT magnesium oxide 400 mg Tab: 400 mg = 1 tab(s), Tab, Oral, Daily, Routine, Start date 04/04/24 9:00:00 EDT, 04/04/24 6:32:00 EDT oxybutynin 5 mg ER Tab: 5 mg = 1 tab(s), Tab-ER, Oral, Daily, Routine, Start date 04/04/24 9:00:00 EDT, 04/04/24 6:32:00 EDT piperacillin-tazobactam + Sodium Chloride 0.9% intravenous solution 50 mL: 3.375 gm, 1 EA, Injection, IV Piggyback, q6hrFT, Start date 04/04/24 12:00:00 EDT, 100 mL/hr, Infuse over 30, minute(s), Total Vol (mL): 50 traZODONE 50 mg Tab: 100 mg = 2 tab(s), Tab, Oral, Bedtime, Routine, Start date 04/04/24 21:00:00 EDT, 04/04/24 6:33:00 EDT Prescriptions Prescribe (more content not included)...[facility]:Result Comment: Electronically Signed By: Toby Santiago MD\.br\Date and Time Signed: 04/04/24 15:[id number] NoteConsultation Note Patient: NADIA PATTERSON Age: 78 years Sex: Female : 1945 Associated Diagnoses: None Author: Delphine BRIGGS, Briseida Subjective Patient is a 78-year-old female who I was asked to see by the hospitalist for abnormal troponin andabnormal BNP. The patient presented with dyspnea. I could not find old records on this patient in our system. The daughter who is the caregiver was not available. The patient at the time of my visit was undergoing an echocardiogram and was not available for my physical examination or interview. Records from the recent admission and ER visits were reviewed. The case was discussed with the hospitalist. I reviewed the patient's EKGs and imaging studies and her lab data. I will be seeing her formally in consultation tomorrow. By then I will have the echocardiogram to review. The patient presentedwith progressive dyspnea and was found to have bilateral lower lobe infiltrates. She was hypoxemic on presentation and in sinus tachycardia. She was found to have advanced kidney disease as well witha GFR of 26 mL/min. Her x-ray did not show any evidence of failure but her BNP was above normal my small margin. No cardiac arrhythmias have been noted since admission. There is no reported symptoms of chest pain. Patient has no history of coronary artery disease. Her medical regimen indicated thatshe has hyperlipidemia on atorvastatin and hypertension on carvedilol. She has been chronically treated with Lasix and thyroid supplement, she is diabetic on metformin as well. We have no record of myocardial ischemia evaluation in the past. Patient apparently has history of mild dementia. Health Status Allergies: Allergic Reactions (All) Severity Not Documented Stadol- No reactions were documented. Current medications: Home Medications (28) Active aspirin 81 mg Oral EC Tab 81 mg = 1 tab(s), Oral, Daily atorvastatin 10 mg Tab 10 mg = 1 tab(s), Oral, Bedtime azithromycin 250 mg Tab 250 mg = 1 tab(s), Oral, Daily carvedilol 3.125 mg, Oral, Daily carvedilol 6.25 mg Tab 6.25 mg = 1 tab(s), Oral, BID cefuroxime 500 mg oral tablet 500 mg = 1 tab(s), Oral, BID cetirizine 10 mg Tab 10 mg = 1 tab(s), PRN, Oral, Daily cholecalciferol 10,000 intl units oral capsule 250 mcg = 1 cap(s), Oral, MonWedFri Colace 100 mg Cap 100 mg = 1 cap(s), PRN, Oral, BID ferrous sulfate 325 mg Tab 325 mg = 1 tab(s), Oral, MonWedFri furosemide 40 mg Tab 40 mg = 1 tab(s), Oral, Daily levothyroxine 50 mcg (0.05 mg) Tab 50 mcg = 1 tab(s), Oral, Daily Lyrica 100 mg, Oral, BID magnesium oxide 400 mg oral capsule 400 mg = 1 cap(s), Oral, Daily metformin 500 mg oral tablet 500 mg = 1 tab(s), Oral, BID Myrbetriq 50 mg, Oral, Daily Myrbetriq 50 mg oral tablet, extended release nitroglycerin 0.4 mg sublingual Tab 0.4 mg = 1 tab(s), PRN, SubLingual, q5min Hendley 325 mg-5 mg oral tablet 1 tab(s), PRN, Oral, BID nystatin Top 100,000 units/g Pwdr 1 chantal, Topical, BID polyethylene glycol 3350 17 gram packet 17 gm, PRN, Oral, Daily Potassium Chloride (Eqv-K-Tab) 10 mEq oral tablet, extended release 10 mEq = 1 tab(s), Oral, BID pregabalin 150 mg, Oral, BID ropinirole 2 mg, Oral, Daily ropinirole 4 mg oral tablet 4 mg = 1 tab(s), Oral, Supper trazodone 100 mg, Oral, Bedtime traZODONE 150 mg Tab 150 mg = 1 tab(s), Oral, Once a day (at bedtime) Tylenol Extra Strength 500 mg oral tablet 1,000 mg = 2 tab(s), Oral, q6hr , Medications (23) Active Scheduled: (16) aspirin 81 mg Oral EC Tab [F] 81 mg 1 tab(s), Oral, Daily atorvastatin 20 mg Tab [F] 10 mg 0.5 tab(s), Oral, Bedtime carvedilol 3.125 mg Tab [F] 3.125 mg 1 tab(s), Oral, Supper ferrous sulfate 325 mg Tab [F] 325 mg 1 tab(s), Oral, MonWedFri ferrous sulfate 325 mg Tab [F] 325 mg 1 tab(s), Oral, Daily folic acid 1 mg Tab [F] 1 mg 1 tab(s), Oral, Daily guaiFENesin 600 mg ER Tab [F] 1,200 mg 2 tab(s), Oral, q12hr heparin 5,000 units/mL Inj [F] 5,000 unit(s) 1 mL, SubCutaneous, q8hrFT insulin lispro 100 units/mL (HUMALOG) 10 mL SubQ inj [F] 0-10 Unit(s), SubCutaneous, QIDACHS levothyroxine 50 mcg (0.05 mg) Tab [F] 50 mcg 1 tab(s), Oral, Daily magnesium oxide 400 mg Tab [F] 400 mg 1 tab(s), Oral, Daily oxyBUTYnin 5 mg ER Tab [F] 5 mg 1 tab(s), Oral, Daily piperacillin-tazobactam 3 g-0.375 g + Sodium Chloride 0.9% Minibag 50 mL 3.375 gm 1 EA, IV Piggyback, q6hrFT pregabalin 100 mg Cap [F] 100 mg 1 cap(s), Oral, BID rOPINIRole 1 mg Tab [F] 2 mg 2 tab(s), Oral, Bedtime traZODone 50 mg Tab [F] 100 mg 2 tab(s), Oral, Bedtime Continuous: (0) PRN: (7) acetaminophen 325 mg Tab UD [F] 650 mg 2 tab(s), Oral, q6hr albuterol-ipratropium 2.5 mg-0.5 mg/3 mL SOLN [F] 3 mL, Inhalation, QID benzonatate 100 mg Cap [F] 100 mg 1 cap(s), Oral, TID dextrose 50% IV Marla 50 mL Abboject [F] 50 mL, IV Push, Once diphenhydrAMINE 25 mg Cap [F] 25 mg 1 cap(s), Oral, q6hr hydrALAZINE 20 mg/mL Inj [F] 10 mg 0.5 mL, IV Push, q6hr ondansetron 2 mg/mL Inj (more content not included)...[facility]Result Comment: Electronically Signed By: Delphine BRIGGS, Briseida\.br\Date and Time Signed: 04/04/24 15:23 [id number] Note Interdisciplinary Note - OT Attempted to see patient for OT evaluation however pt was undergoing testing in her room upon attempt. Will follow up as appropriate.[facility] 04-04-2024 NoteProgress Note-Physician Assessment/Plan Johann Patterson () [phone], pt. is a FULL CODE, he states no prolonged code situation. 1. Acute respiratory failure with hypoxia (J96.01: Acute respiratory failure with hypoxia) Failed outpt. zpak for bronchitis -Denies home 02 or cpap/bipap use - currently requires 3Lpm NC to maintain pulse ox > 92% -Supplemental 02 -Tx. as below -Low threshold for PCCM consult if not improving in a.m. 2. Sepsis (A41.9: Sepsis, unspecified organism) 2/2 PNA w/ failed outpt. Zpak tx. + worsening PCT today - up to 16 -COVID Ag, RVP, Flu A/B - neg -IVF 1L to date -> Monitor closely for fl. overload -Transition IV ceftriaxone/po azithro to IV zosyn -CT chest: pending -CT A/P: pending -BlCx - pending -UA - pending - nrsng aware to send louise -Bl. cx. - pending -Urine cx. - pending -See below 3. Pneumonia (J18.9: Pneumonia, unspecified organism) Diagnostics as above - no PNA on CXR -MRSA swab: pending -IV atb - as above -Med nebs, flutter device, mucinex, supplemental 02 -Sputum cx. - pending -Legionella antigen - pending -Recommend repeat CXR in 4 weeks as outpatient 4. Elevated troponin I level (R79.89: Other specified abnormal findings of blood chemistry) Pt. reports intermittent CP x 1 week -Max trop 67 - likely type II [place] 2/2 demand ischemia 2/2 hypoxia/sepsis 2/2 PNA -12 lead ECG: RSR, non acute -Asa, atorvastatin, carvedilol, -Consult [facility]: pending 5. Acute kidney injury superimposed on stage 3b chronic kidney disease (N17.9: Acute kidney failure, unspecified) Likely 2/2 dehydration 2/2 sepsis 2/2 PNA c/w furosemide use -Baseline Cr 1.3 -1.5 -IVF as above -Hold furosemide -Renal US - await nephro input -Bladder scan/PVR - pending -Trend BMP -Avoid nephrotoxic medications as much as possible -Consult nephrology: pending 6. Anemia (D64.9: Anemia, unspecified) 2/2 iron & folate def. -Baseline hgb. level - 03-16 -Anemia panel -> ferrous sulfate 325mg daily (was on M/W/ dosing), miralax daily, folic acid 1gdaily -No acute bleeding noted, hemodynamically stable -Trend labs -Outpt. f/u w/ GI for possible scopes - defer to PCP 7. Generalized weakness (R53.1: Weakness) Multifactorial: see dx. as above -Tx. as above -PT/OT - pending 8. Dementia (F03.90: Unspecified dementia, unspecified severity, without behavioral disturbance, psychotic disturbance, mood disturbance, and anxiety) Pt. is A&O: person, place, year, unsure of president was able to pick correctly when given multiple choice -Promote sleep/wake cycle -Supportive care, fall precautions 9. HTN (hypertension) (I10: Essential (primary) hypertension) -Carvedilol 10. Hyperlipemia, mixed (E78.2: Mixed hyperlipidemia) -Statin 11. DM2 (diabetes mellitus, type 2) (E11.9: Type 2 diabetes mellitus without complications) Accuchecks AC/HS w/ SSI prn -A1c - 6.7% in 07/2023 -Home regimen: metformin -Hold metformin -Hypoglycemic protocol 12. Hypothyroid (E03.9: Hypothyroidism, unspecified) -Levothyroxine 13. On deep vein thrombosis (DVT) prophylaxis (Z79.899: Other long term care pharmacist (current) drug therapy) -Heparin sq with early ambulation Orders: piperacillin-tazobactam + Sodium Chloride 0.9% intravenous solution 50 mL, 3.375 gm, 1 EA, Injection, IV Piggyback, q6hrFT, Start date 04/04/24 12:00:00 EDT, 100 mL/hr, Infuse over 30, minute(s), Total Vol (mL): 50 Bladder Scan Communication Order Physician to Nursing Consult to Cardiology Consult to Nephrology CT Abdomen/Pelvis w/o Contrast CT Chest w/o Contrast Extra Lav Tube Ferritin Folate Level Iron Level Lactate Dehydrogenase Post Void Residual Procalcitonin Referral to [facility] Reticulocyte Count TIBC Calculated TSH With T4fr Reflex Vitamin B12 Level -Plan discussed w/ patient, nursing staff and CRM. This report was transcribed using voice recognition software. Every effort was made to ensure accuracy, however, inadvertently computerized religion professor mistakes may be present. Subjective No acute events overnight. Patient states she feels tired and exhausted and not well. She denies CP, pressure, palpitations, N/V, or paresthesia. 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 Gastrointestinal: Denies abd pain. Passing flatus. Last BM: 04/03 Musculoskeletal: + gen. weakness Additional ROS info: Except as noted in the above Review of Systems and in the History of Present Illness all other systems have been reviewed and are negative or noncontributory. Objective Vitals & Measurements T: 36.2 ???C(Axillary) TMIN: 36.2 ???C(Axillary) TMAX: 39.4 ???C(Oral) HR: 71(Monitored) RR: 20 BP:101/58 SpO2: 98% HT: 157.4 cm WT: 89.2 kg Intake & Output This visit (24 hour periods starting at 07:00 EDT) 04/04/24 * 04/03/24 04/02/24 (more content not included)...[facility]Comment on above:Result Comment: Electronically Signed By: Akua NICHOLSON\.br\Date and Time Signed: 04/04/24 14:21 EDT\.br\Electronically Co-Signed By: Miguel Ramires DO04-04-2024 NoteProgress Note-Physician Assessment/Plan Johann Patterson () [phone], pt. is a FULL CODE, he states no prolonged code situation. 1. Acute respiratory failure with hypoxia (J96.01: Acute respiratory failure with hypoxia) Failed outpt. zpak for bronchitis -Denies home 02 or cpap/bipap use - currently requires 3Lpm NC to maintain pulse ox > 92% -Supplemental 02 -Tx. as below -Low threshold for PCCM consult if not improving in a.m. 2. Sepsis (A41.9: Sepsis, unspecified organism) 2/2 PNA w/ failed outpt. Zpak tx. + worsening PCT today - up to 16 -COVID Ag, RVP, Flu A/B - neg -IVF 1L to date -> Monitor closely for fl. overload -Transition IV ceftriaxone/po azithro to IV zosyn -CT chest: pending -CT A/P: pending -BlCx - pending -UA - pending - nrsng aware to send louise -Bl. cx. - pending -Urine cx. - pending -See below 3. Pneumonia (J18.9: Pneumonia, unspecified organism) Diagnostics as above - no PNA on CXR -MRSA swab: pending -IV atb - as above -Med nebs, flutter device, mucinex, supplemental 02 -Sputum cx. - pending -Legionella antigen - pending -Recommend repeat CXR in 4 weeks as outpatient 4. Elevated troponin I level (R79.89: Other specified abnormal findings of blood chemistry) Pt. reports intermittent CP x 1 week -Max trop 67 - likely type II [place] 2/2 demand ischemia 2/2 hypoxia/sepsis 2/2 PNA -12 lead ECG: RSR, non acute -Asa, atorvastatin, carvedilol, -Consult [facility]: pending 5. Acute kidney injury superimposed on stage 3b chronic kidney disease (N17.9: Acute kidney failure, unspecified) Likely 2/2 dehydration 2/2 sepsis 2/2 PNA c/w furosemide use -Baseline Cr 1.3 -1.5 -IVF as above -Hold furosemide -Renal US - await nephro input -Bladder scan/PVR - pending -Trend BMP -Avoid nephrotoxic medications as much as possible -Consult nephrology: pending 6. Anemia (D64.9: Anemia, unspecified) 2/2 iron & folate def. -Baseline hgb. level - 10-11 -Anemia panel -> ferrous sulfate 325mg daily (was on M// dosing), miralax daily, folic acid 1gdaily -No acute bleeding noted, hemodynamically stable -Trend labs -Outpt. f/u w/ GI for possible scopes - defer to PCP 7. Generalized weakness (R53.1: Weakness) Multifactorial: see dx. as above -Tx. as above -PT/OT - pending 8. Dementia (F03.90: Unspecified dementia, unspecified severity, without behavioral disturbance, psychotic disturbance, mood disturbance, and anxiety) Pt. is A&O: person, place, year, unsure of president was able to pick correctly when given multiple choice -Promote sleep/wake cycle -Supportive care, fall precautions 9. HTN (hypertension) (I10: Essential (primary) hypertension) -Carvedilol 10. Hyperlipemia, mixed (E78.2: Mixed hyperlipidemia) -Statin 11. DM2 (diabetes mellitus, type 2) (E11.9: Type 2 diabetes mellitus without complications) Accuchecks AC/HS w/ SSI prn -A1c - 6.7% in 07/2023 -Home regimen: metformin -Hold metformin -Hypoglycemic protocol 12. Hypothyroid (E03.9: Hypothyroidism, unspecified) -Levothyroxine 13. On deep vein thrombosis (DVT) prophylaxis (Z79.899: Other long term care pharmacist (current) drug therapy) -Heparin sq with early ambulation Orders: piperacillin-tazobactam + Sodium Chloride 0.9% intravenous solution 50 mL, 3.375 gm, 1 EA, Injection, IV Piggyback, q6hrFT, Start date 04/04/24 12:00:00 EDT, 100 mL/hr, Infuse over 30, minute(s), Total Vol (mL): 50 Bladder Scan Communication Order Physician to Nursing Consult to Cardiology Consult to Nephrology CT Abdomen/Pelvis w/o Contrast CT Chest w/o Contrast Extra Lav Tube Ferritin Folate Level Iron Level Lactate Dehydrogenase Post Void Residual Procalcitonin Referral to [facility] Reticulocyte Count TIBC Calculated TSH With T4fr Reflex Vitamin B12 Level -Plan discussed w/ patient, nursing staff and CRM. This report was transcribed using voice recognition software. Every effort was made to ensure accuracy, however, inadvertently computerized religion professor mistakes may be present. Subjective No acute events overnight. Patient states she feels tired and exhausted and not well. She denies CP, pressure, palpitations, N/V, or paresthesia. 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 Gastrointestinal: Denies abd pain. Passing flatus. Last BM: 04/03 Musculoskeletal: + gen. weakness Additional ROS info: Except as noted in the above Review of Systems and in the History of Present Illness all other systems have been reviewed and are negative or noncontributory. Objective Vitals & Measurements T: 36.2 ???C(Axillary) TMIN: 36.2 ???C(Axillary) TMAX: 39.4 ???C(Oral) HR: 71(Monitored) RR: 20 BP:101/58 SpO2: 98% HT: 157.4 cm WT: 89.2 kg Intake & Output This visit (24 hour periods starting at 07:00 EDT) 04/04/24 * 04/03/24 04/02/24 (more content not included)...[facility]:Result Comment: Electronically Signed By: Akua NICHOLSON\.br\Date and Time Signed: 04/04/24 14:21 EDT\.br\Electronically Co-Signed By: Miguel Ramires DO\.br\Date and Time Co-Signed: 04/04/24 17:14 [id number] NoteProgress Note-Nurse PVR 116 hospitalist aware, orders for IVF off and BNP , IVF off as ordered and BNP resulted at 161.[facility]10-30-[facility] NoteProgress Note-Physician Assessment/Plan Johann Yesenia () [phone], pt. is a FULL CODE, he states no prolonged code situation. 1. Acute respiratory failure with hypoxia (J96.01: Acute respiratory failure with hypoxia) Failed outpt. zpak for bronchitis -Denies home 02 or cpap/bipap use - currently requires 3Lpm NC to maintain pulse ox > 92% -Supplemental 02 -Tx. as below -Low threshold for PCCM consult if not improving in a.m. 2. Sepsis (A41.9: Sepsis, unspecified organism) 2/2 PNA w/ failed outpt. Zpak tx. + worsening PCT today - up to 16 -COVID Ag, RVP, Flu A/B - neg -IVF 1L to date -> Monitor closely for fl. overload -Transition IV ceftriaxone/po azithro to IV zosyn -CT chest: pending -CT A/P: pending -BlCx - pending -UA - pending - nrsng aware to send louise -Bl. cx. - pending -Urine cx. - pending -See below 3. Pneumonia (J18.9: Pneumonia, unspecified organism) Diagnostics as above - no PNA on CXR -MRSA swab: pending -IV atb - as above -Med nebs, flutter device, mucinex, supplemental 02 -Sputum cx. - pending -Legionella antigen - pending -Recommend repeat CXR in 4 weeks as outpatient 4. Elevated troponin I level (R79.89: Other specified abnormal findings of blood chemistry) Pt. reports intermittent CP x 1 week -Max trop 67 - likely type II [place] 2/2 demand ischemia 2/2 hypoxia/sepsis 2/2 PNA -12 lead ECG: RSR, non acute -Asa, atorvastatin, carvedilol, -Consult [facility]: pending 5. Acute kidney injury superimposed on stage 3b chronic kidney disease (N17.9: Acute kidney failure, unspecified) Likely 2/2 dehydration 2/2 sepsis 2/2 PNA c/w furosemide use -Baseline Cr 1.3 -1.5 -IVF as above -Hold furosemide -Renal US - await nephro input -Bladder scan/PVR - pending -Trend BMP -Avoid nephrotoxic medications as much as possible -Consult nephrology: pending 6. Anemia (D64.9: Anemia, unspecified) 2/2 iron & folate def. -Baseline hgb. level - -11 -Anemia panel -> ferrous sulfate 325mg daily (was on M/W/ dosing), miralax daily, folic acid 1gdaily -No acute bleeding noted, hemodynamically stable -Trend labs -Outpt. f/u w/ GI for possible scopes - defer to PCP 7. Generalized weakness (R53.1: Weakness) Multifactorial: see dx. as above -Tx. as above -PT/OT - pending 8. Dementia (F03.90: Unspecified dementia, unspecified severity, without behavioral disturbance, psychotic disturbance, mood disturbance, and anxiety) Pt. is A&O: person, place, year, unsure of president was able to pick correctly when given multiple choice -Promote sleep/wake cycle -Supportive care, fall precautions 9. HTN (hypertension) (I10: Essential (primary) hypertension) -Carvedilol 10. Hyperlipemia, mixed (E78.2: Mixed hyperlipidemia) -Statin 11. DM2 (diabetes mellitus, type 2) (E11.9: Type 2 diabetes mellitus without complications) Accuchecks AC/HS w/ SSI prn -A1c - 6.7% in 07/2023 -Home regimen: metformin -Hold metformin -Hypoglycemic protocol 12. Hypothyroid (E03.9: Hypothyroidism, unspecified) -Levothyroxine 13. On deep vein thrombosis (DVT) prophylaxis (Z79.899: Other long term care pharmacist (current) drug therapy) -Heparin sq with early ambulation Orders: piperacillin-tazobactam + Sodium Chloride 0.9% intravenous solution 50 mL, 3.375 gm, 1 EA, Injection, IV Piggyback, q6hrFT, Start date 04/04/24 12:00:00 EDT, 100 mL/hr, Infuse over 30, minute(s), Total Vol (mL): 50 Bladder Scan Communication Order Physician to Nursing Consult to Cardiology Consult to Nephrology CT Abdomen/Pelvis w/o Contrast CT Chest w/o Contrast Extra Lav Tube Ferritin Folate Level Iron Level Lactate Dehydrogenase Post Void Residual Procalcitonin Referral to [facility] Reticulocyte Count TIBC Calculated TSH With T4fr Reflex Vitamin B12 Level -Plan discussed w/ patient, nursing staff and CRM. This report was transcribed using voice recognition software. Every effort was made to ensure accuracy, however, inadvertently computerized religion professor mistakes may be present. Subjective No acute events overnight. Patient states she feels tired and exhausted and not well. She denies CP, pressure, palpitations, N/V, or paresthesia. 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 Gastrointestinal: Denies abd pain. Passing flatus. Last BM: 04/03 Musculoskeletal: + gen. weakness Additional ROS info: Except as noted in the above Review of Systems and in the History of Present Illness all other systems have been reviewed and are negative or noncontributory. Objective Vitals & Measurements T: 36.2 ???C(Axillary) TMIN: 36.2 ???C(Axillary) TMAX: 39.4 ???C(Oral) HR: 71(Monitored) RR: 20 BP:101/58 SpO2: 98% HT: 157.4 cm WT: 89.2 kg Intake & Output This visit (24 hour periods starting at 07:00 EDT) 04/04/24 * 04/03/24 04/02/24 (more content not included)...[facility]:Result Comment: Electronically Signed By: Akua NICHOLSON\.br\Date and Time Signed: 04/04/24 12:48 EDT\.br\Electronically Co-Signed By: Miguel Ramires DO04-04-2024 NoteProgress Note-Physician Assessment/Plan Johann Patterson () [phone], pt. is a FULL CODE, he states no prolonged code situation. 1. Acute respiratory failure with hypoxia (J96.01: Acute respiratory failure with hypoxia) Failed outpt. zpak for bronchitis -Denies home 02 or cpap/bipap use - currently requires 3Lpm NC to maintain pulse ox > 92% -Supplemental 02 -Tx. as below -Low threshold for PCCM consult if not improving in a.m. 2. Sepsis (A41.9: Sepsis, unspecified organism) 2/2 PNA w/ failed outpt. Zpak tx. + worsening PCT today - up to 16 -COVID Ag, RVP, Flu A/B - neg -IVF 1L to date -> Monitor closely for fl. overload -Transition IV ceftriaxone/po azithro to IV zosyn -CT chest: pending -CT A/P: pending -BlCx - pending -UA - pending - nrsng aware to send louise -Bl. cx. - pending -Urine cx. - pending -See below 3. Pneumonia (J18.9: Pneumonia, unspecified organism) Diagnostics as above - no PNA on CXR -MRSA swab: pending -IV atb - as above -Med nebs, flutter device, mucinex, supplemental 02 -Sputum cx. - pending -Legionella antigen - pending -Recommend repeat CXR in 4 weeks as outpatient 4. Elevated troponin I level (R79.89: Other specified abnormal findings of blood chemistry) Pt. reports intermittent CP x 1 week -Max trop 67 - likely type II [place] 2/2 demand ischemia 2/2 hypoxia/sepsis 2/2 PNA -12 lead ECG: RSR, non acute -Asa, atorvastatin, carvedilol, -Consult [facility]: pending 5. Acute kidney injury superimposed on stage 3b chronic kidney disease (N17.9: Acute kidney failure, unspecified) Likely 2/2 dehydration 2/2 sepsis 2/2 PNA c/w furosemide use -Baseline Cr 1.3 -1.5 -IVF as above -Hold furosemide -Renal US - await nephro input -Bladder scan/PVR - pending -Trend BMP -Avoid nephrotoxic medications as much as possible -Consult nephrology: pending 6. Anemia (D64.9: Anemia, unspecified) 2/2 iron & folate def. -Baseline hgb. level - 10-11 -Anemia panel -> ferrous sulfate 325mg daily (was on M// dosing), miralax daily, folic acid 1gdaily -No acute bleeding noted, hemodynamically stable -Trend labs -Outpt. f/u w/ GI for possible scopes - defer to PCP 7. Generalized weakness (R53.1: Weakness) Multifactorial: see dx. as above -Tx. as above -PT/OT - pending 8. Dementia (F03.90: Unspecified dementia, unspecified severity, without behavioral disturbance, psychotic disturbance, mood disturbance, and anxiety) Pt. is A&O: person, place, year, unsure of president was able to pick correctly when given multiple choice -Promote sleep/wake cycle -Supportive care, fall precautions 9. HTN (hypertension) (I10: Essential (primary) hypertension) -Carvedilol 10. Hyperlipemia, mixed (E78.2: Mixed hyperlipidemia) -Statin 11. DM2 (diabetes mellitus, type 2) (E11.9: Type 2 diabetes mellitus without complications) Accuchecks AC/HS w/ SSI prn -A1c - 6.7% in 07/2023 -Home regimen: metformin -Hold metformin -Hypoglycemic protocol 12. Hypothyroid (E03.9: Hypothyroidism, unspecified) -Levothyroxine 13. On deep vein thrombosis (DVT) prophylaxis (Z79.899: Other senior care (current) drug therapy) -Heparin sq with early ambulation Orders: piperacillin-tazobactam + Sodium Chloride 0.9% intravenous solution 50 mL, 3.375 gm, 1 EA, Injection, IV Piggyback, q6hrFT, Start date 04/04/24 12:00:00 EDT, 100 mL/hr, Infuse over 30, minute(s), Total Vol (mL): 50 Bladder Scan Communication Order Physician to Nursing Consult to Cardiology Consult to Nephrology CT Abdomen/Pelvis w/o Contrast CT Chest w/o Contrast Extra Lav Tube Ferritin Folate Level Iron Level Lactate Dehydrogenase Post Void Residual Procalcitonin Referral to [facility] Reticulocyte Count TIBC Calculated TSH With T4fr Reflex Vitamin B12 Level -Plan discussed w/ patient, nursing staff and CRM. This report was transcribed using voice recognition software. Every effort was made to ensure accuracy, however, inadvertently computerized religion professor mistakes may be present. Subjective No acute events overnight. Patient states she feels tired and exhausted and not well. She denies CP, pressure, palpitations, N/V, or paresthesia. 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 Gastrointestinal: Denies abd pain. Passing flatus. Last BM: 04/03 Musculoskeletal: + gen. weakness Additional ROS info: Except as noted in the above Review of Systems and in the History of Present Illness all other systems have been reviewed and are negative or noncontributory. Objective Vitals & Measurements T: 36.2 ???C(Axillary) TMIN: 36.2 ???C(Axillary) TMAX: 39.4 ???C(Oral) HR: 71(Monitored) RR: 20 BP:101/58 SpO2: 98% HT: 157.4 cm WT: 89.2 kg Intake & Output This visit (24 hour periods starting at 07:00 EDT) 04/04/24 * 04/03/24 04/02/24 (more content not included)...[facility]:Result Comment: Electronically Signed By: Akua NICHOLSON\.br\Date and Time Signed: 04/04/24 12:48 EDT\.br\Electronically Co-Signed By: Miguel Ramires DO\.br\Date and Time Co-Signed: 04/04/24 13:25 [id number] NoteHistory and Physical Basic Information Admit Date/Time:04/04/2024 02:13 Chief Complaint states was started on zpak for bronchitis. cough and sob. pt was 86% on room air when squad arrived. harsh cough noted History of Present Illness Patient is a 78-year-old female with past medical history as noted below comes in with above-statedchief complaint. History is from a combination of chart review and discussion with patient. Patienthas dementia at baseline though does answer my questions appropriately. Patient began to have upperrespiratory infection type symptoms about 1 week ago. Patient was started on Z-Chente. Patient has hadabout 3 doses at this time. Patient began to have fever and worsening of her mental status therefore was brought to the ED for evaluation. Patient was also noted to be hypoxic on room air when squad arrived. Patient does admit to having a cough with green sputum production. Patient denies any nausea, vomiting, diarrhea, constipation, headaches, dysuria, vision changes. Review of Systems 14 Systems reviewed and negative except as noted in HPI. Scoring Zee Fall Risk Score: 60 High (04/04/24) Physical Exam Vitals & Measurements T: 38.4 ???C(Oral) TMIN: 38.4 ???C(Oral) TMAX: 39.4 ???C(Oral) HR: 91(Monitored) RR: 30 BP: 136/63 SpO2: 95% HT: 157.4 cm WT: 86.1 kg General: alert, no acute distress Skin: warm, dry Head: no trauma, normocephalic Neck: Trachea midline, no adenopathy, no tenderness Eye: normal conjunctiva, sclera clear ENMT: oral mucosa moist, no pharyngeal erythema or exudate. hearing grossly intact Cardiovascular: regular rate and rhythm, no murmur/gallop/rub Respiratory: Lungs CTA, respirations non labored , no w/r/r Gastrointestinal: Positive bowel sound, soft, non distended, no tenderness, no guarding. Extremities: no deformity, no trauma Osteopathic: Deferred due to being noncontributory to current case. Neurological: oriented x 4, LOC appropriate for age, CN II-XII intact, motor strength equal & normal bilaterally, sensation equal & normal bilaterally, speech normal Psychiatric: cooperative, affect appropriate for age, normal judgement, normal psychiatric thoughts. Lab Results WBC: 8.2 E9/L (04/04/24 01:05:00) RBC: 3.8 E12/L Low (04/04/24 01:05:00) HGB: 11.8 gm/dL Low (04/04/24:05:00) Hct: 34.7 % (04/04/24 01:05:00) MCV: 91.1 fL (04/04/24 01:05:00) MCH: 30.9 pg (04/04/24:05:00) MCHC: 33.9 gm/dL (04/04/24 01:05:00) RDW: 14.9 % High (04/04/24 01:05:00) Platelet: 224 E9/L (04/04/24 01:05:00) MPV: 7 fL (04/04/24 01:05:00) Neutro Auto: 91.7 % High (04/04/24 01:05:00) Lymph Auto: 4.7 % Low (04/04/24 01:05:00) [place] Auto: 2.6 % Low (04/04/24 01:05:00) Eos Auto: 0.7 % (04/04/24 01:05:00) Basophil Auto: 0.3 % (04/04/24 01:05:00) Neutro Absolute: 7.5 E9/L (04/04/24 01:05:00) Lymph Absolute: 0.4 E9/L Low (04/04/24 01:05:00) [place] Absolute: 0.2 E9/L (04/04/24 01:05:00) Eos Absolute: 0.1 E9/L (04/04/24 01:05:00) Basophil Absolute: 0 E9/L (04/04/24:05:00) PT: 12.2 second(s) (04/04/24:05:00) INR: 1.09 (04/04/24:05:00) PTT: 36.3 second(s) (04/04/24:05:00) Glucose Lvl: 232 mg/dL High (04/04/24 01:05:00) BUN: 24 mg/dL High (04/04/24:05:00) Creatinine: 1.9 mg/dL High (04/04/24:05:00) eGFR: 26 mL/min/1.73 m2 Low (04/04/24:05:00) BUN/Creat Ratio: 13 (04/04/24:05:00) Sodium Lvl: 138 mmol/L (04/04/24:05:00) Potassium Lvl: 3.7 mmol/L (04/04/24:05:00) Chloride: 100 mmol/L Low (04/04/24:05:00) CO2: 28 mmol/L (04/04/24:05:00) AGAP: 14 mEq/L (04/04/24:05:00) Calcium Lvl: 9.3 mg/dL (04/04/24:05:00) Alk Phos: 98 Int._Unit/L (04/04/24 01:05:00) ALT: 9 Int._Unit/L (04/04/24:05:00) AST: 18 Int._Unit/L (04/04/24:05:00) Total Protein: 7.1 gm/dL (04/04/24 01:05:00) Albumin Lvl: 4 gm/dL (04/04/24 01:05:00) Globulin: 3.1 gm/dL (04/04/24 01:05:00) A/G Ratio: 1.3 (04/04/24:05:00) Bili Total: 0.7 mg/dL (04/04/24 01:05:00) Lactic Acid Lvl: 2.7 mmol/L High (04/04/24 01:05:00) Troponin HS: 43 pg/mL Critical (04/04/24 01:05:00) Influenzae A Ag: NEGATIVE1 (04/04/24 01:00:00) Influenzae B Ag: NEGATIVE1 (04/04/24 01:00:00) Rapid COVID Ag: Not Detected (04/04/24 01:00:00) Rapid COV Int NEG Ctl: Pass (04/04/24 01:00:00) Rapid COV Int POS Ctl: Pass (04/04/24 01:00:00) Assessment/Plan 1. Pneumonia (J18.9: Pneumonia, unspecified organism) Patient was started on IV ceftriaxone. Patient took azithromycin at dinnertime. The presumption is that she took azithromycin 250 mg. As such we will start patient on azithromycin 500 mg p.o. daily to start at 0900. Sputum culture ordered. DuoNeb as needed. Will check respiratory viral PCR and procalcitonin. 2. Sepsis (A41.9: Sepsis, unspecified organism) Fever, tachycardia, pneumonia elevated lactic acid. Patient not given fluid bolus because of concern for fluid overload. Will start patient on 0.9 normal saline at 75 mL/h x 1 L. Will recheck lactic acid per protocol. Antibio (more content not included)...[facility] on above:Result Comment: Electronically Signed By: Tika CHRISTENSEN DO\Date and Time Signed: 04/04/24 03:00 [id number] [facility] Chief Complaint: Patient [...] block. Grade 1 diast (more content not included)...[facility]03-06-2024 Note [facility] Cardiology Clinic Note Chief Complaint: Patient here for 1.5 year follow up CAD, HFpEF, and hypertension. She was admitted to [facility] a few weeks ago for pneumonia. Daughter [...] stress test 03/2018 Myocardial (more content not included)...[facility] 08-07-2023 NoteMicrobiology PROCEDURE: Blood Culture Charcoal [R1] SOURCE: Blood BODY SITE: Arm R COLLECTED DATE/TIME: 07/30/2023 22:00 EST RECEIVED DATE/TIME: 07/30/2023 22:16 EST START DATE/TIME: 07/30/2023 22:16 EST FREE TEXT SOURCE: rt forearm Michele Marie DO. Michele Marie DO. FINAL REPORTS Final Report [] Verified Date/Time: 08/07/2023 07:00 EST No growth at 7 days. Performing Locations R1: This test was performed at: [facility], [address] [place] [address], [address] [place] [address], PeyhvpBethesda North HospitalComment on above:Performed By: #### [id number] ####[address] [id number] NoteMicrobiology PROCEDURE: Blood Culture Charcoal [R1] SOURCE: Blood BODY SITE: Hand L COLLECTED DATE/TIME: 07/30/2023 21:45 EST RECEIVED DATE/TIME: 07/30/2023 22:16 EST START DATE/TIME: 07/30/2023 22:16 EST FREE TEXT SOURCE: Michele Marie DO, DO, Kevin M. FINAL REPORTS Final Report [] Verified Date/Time: 08/07/2023 07:00 EST No growth at 7 days. Performing Locations R1: This test was performed at: [facility], [address] [place] [address], [id number] , [place], QemvojBethesda North HospitalComment on above:Performed By: #### [id number] ####[facility] [id number] [place], [place] [id number] Evaluation + Plan noteExtracted from: Title:Discharge Note Author:Hector Meier DO Date:08/02/23 [...] 0.4 mg= 1 tab(s), SubLingual, q5min, PRN Hendley 325 mg-5 mg oral tablet, 1 tab(s), [...] tab(s), Oral, q6hr With When Contact Information FREDDY BRIGGS, GRETEL ROWAN Within 3 to [address] [place], [place] [id number]- Additional Instructions: Call for followup appointment Community-Acquired Pneumonia, Adult, [id number] Extracted from: Title:APSO Note Author:Jesika WHITE student, Nisreenyuliya Mina Date:08/01/23 1. Generalized weakness (R53 .1: [...] any dementia medication. Extracted from: Title:ED Note Author:Mariela Birch PA-C ate:07/30/23 1. Pneumonia (J18.9: Pneumon ia, unspecified organism) 2. Generalized weakness (R53.1: Weakness) Orders: ceftriaxone + Sodium Chloride 0.9% intravenous solution 50 mL, 1,000 mg = 1 EA, IV Piggyback, Once, Stop date 07/30/23 23:14:00 EST, STAT, Start date 07/30/23 23:14:00 EST, 100 mL/hr, Infuse over 30 minute(s), 07/30/23 23:14:00 EST Add on Test [facility]02-27-2024 Hospital Discharge instructions Patient Education 08/02/2023 11:02:24 Antibiotic Medicine, Adult, Jcsa-mc-Krwh Antibiotic Medicine, Adult Antibiotic medicines treat infections [...] medicine. Follow these instructions at home: Take irac-nml-viwyucm and prescription medicines as told by your [...] provider. Document Revised: 03/04/2020 Document Reviewed: 03/11/2020 [employer] Patient Education 2022 [employer]plays. 08/02/2023 10:11:36 Community-Acquired Pneumonia, Adult, Vgrl-as-Eizj Community-Acquired Pneumonia, Adult Pneumonia is an infection [...] Follow these instructions at home: Medicines Take vyhq-jzv-crdlidg and prescription medicines only as told by [...] cannot use soap and water, use hand halal butcher. Contact a doctor if: You have a [...] provider. Document Revised: 07/21/2022 Document Reviewed: 07/21/2022 [employer] Patient Education 2022 [employer]plays. Follow Up Care 07/30/2023 20:29:22 With:HARPAL HAYES MD, FAM Address: [address] [place] [address]- When:08/09/2023 10:30:00 [facility]02-27-2024 NoteAdmission and Discharge Information Admit Date/Time:07/31/2023 01:03 Admitting Physician - Christie Zayas MD Admitting Diagnoses: Discharge Order Date Discharge Patient - Ordered -- 08/02/23 10:17:00 [facility] Discharge Diagnoses 1. Generalized weakness, 07/30/2023 2. Pneumonia, 07/30/2023 3. Lactic acidosis, 07/31/2023 4. Fibromyalgia, 07/31/2023 5. Diabetes mellitus with polyneuropathy, 07/31/2023 6. Hypothyroid, 07/31/2023 7. CKD (chronic kidney disease) stage 3, GFR 30-59 ml/min, 07/31/2023 8. Dementia, 07/31/2023 Cough, 07/30/2023 Weakness or fatigue, 07/30/2023 Procedure History Femur, Knee replacement, None. Hospital Course 78 y/o female with PMH significant for DM with polyneuropathy, fibromyalgia, hypothyroidism, CKD, and dementia who presented to the ED with generalized weakness and cough on 07/30. She had not been able to get around well per the ED physician. Patient does use a walker. She reported her legs had been hurting her, but endorses a known diagnosis of fibromyalgia. Workup in the ED revealed a slightly elevated Lactic acid level, that has since normalized. CXR raised concern for pneumonia. WBC normal.She was started on Rocephin, Zmax. Her primary concerns over the course of her admission was her posterior cervical and leg pain; however she stated that those were not new symptoms and is being managed for those outpatient. Patient did not require any oxygen. She had improvements in her appetite. She denied any chest pain, shortness of breath, diarrhea, constipation, nausea or vomiting. Patient was continued on Rocephin and Zmax.Creatinine was stable at baseline of 1.4-1.5. No growth at 2 days on blood culture. Patient was seen and evaluated by PT, HH was recommended on discharge. Patient stable at discharge.pt sxs were improved throughout stay. Patient will be discharged home. Instructed to report to the ER if her symptoms change or worsen. Med changes: Azithromycin t o complete 5 day course Cefuroxime Follow-up appointments: Follow up with PCP as needed Discharge time was approximately 31 minutes which included extensive conversation with patient about diagnosis and treatment along with communication with consultants, case management, nursing. Physical Exam Vitals & Measurements T: 36.6 ?C(Oral) TMIN: 36.2 ?C(Oral) TMAX: 36.7 ?C(Oral) HR: 74(Monitored) RR: 16 BP: 124/72 SpO2: 93% WT: 83.8 kg General: Looks well, no acute distress, well-nourished, well-kept Skin: Warm, dry Head: No trauma, normocephalic Neck: Trachea midline, supple, negative for JVD Eye: Conjunctive are clear, clear sclera , EOMI ENMT: oral mucosa moist, no lesions or edema nose or external ears Cardiovascular: Regular rate and rhythm, S1-S2 present, negative for murmurs rubs or gallops Respiratory: Lungs clear to auscultation, bilateral symmetric movement, negative for wheezes rales or rhonchi Chest wall: no deformity. Gastrointestinal: Abdomen soft, nontender to palpation, bowel sounds present Back: No tenderness Extremities: Range of motion intact, no edema Neurological: awake, alert, speech normal, cranial nerves II through XII intact, no sensory defects, alert and oriented x3 Psychiatric: cooperative, affect appropriate for age, pleasant Tests Performed XR Chest Single View Discharge Plan Discharge Disposition Discharge To, Anticipated II - Home with home health Discharged to - Home with family care Discharge Medication List Prescriptions azithromycin 250 mg Tab, 250 mg= [...] 0.4 mg= 1 tab(s), SubLingual, q5min, PRN Hendley 325 mg-5 mg oral tablet, 1 tab(s), [...] (at bedtime) Tylenol Extra Strength 500 mg (more content not included)...[facility] HospitalComment on above:Result Comment: Electronically Signed By: Hector Meier DO\.br\Date and Time Signed: 08/02/23 10:18 [id number] NotePT Evaluation done this date. Pt. with on AM-PAC this date. Supervision to CGA with all activities this date. Recommend home health PT, will continue to follow while here.[facility] NoteBasic Information Admit Date/Time:07/31/2023 01:22 Chief Complaint weakness for 1 week. productive cough. generally ill. body aches. decreased oral intake. has tremors on arrival. trouble walking at home d/t weakness. hx UTIs, fibromyalgia, DM, arthritis and kidney disease History of Present Illness 78yo female who presented to the ED with generalized weakness and cough for the past week. She has not been able to get around well per the ED physician. Does use a walker. Patient reports her legs have been hurting her, but endorses a known diagnosis of fibromyalgia as well. She denies any SOB, fever. Has not fallen at home. Reports her appetite has been down. Seems to fatigue easily. No sick contacts. 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 Daughter also cut back her Lyrica. Workup in the ED revealed a slightly elevated Lactic acid level, that has since normalized. CXR raised concern for pneumonia. WBC normal. COVID and Influenza swabs were not obtained. She was started on Rocephin, Zmax. Per the ED nurse, IV access is an issue. Review of Systems Constitutional: no fever, no chills, no sweats, + weakness Skin: no jaundice, no rash, no lesions, no petechiae ENMT: no ear pain, no sore throat, + congestion, no hoarseness Respiratory: no shortness of breath, + cough, no orthopnea, no wheezing Cardiovascular: no chest pain, no palpitations, no edema Gastrointestinal: no nausea, no vomiting, no diarrhea, no abdominal pain Genitourinary: no dysuria, no hematuria Musculoskeletal: no trauma, + joint or muscle pain Neurologic: no headache, no dizziness Psychiatric: no depression, no anxiety Heme/Lymph: no bleeding tendency, no bruising tendency Additional ROS info: Except as noted in the above Review of Systems and in the History of Present Illness all other systems have been reviewed and are negative or noncontributory. Scoring Zee Fall Risk Score: 85 High (07/30/23) Physical Exam Vitals & Measurements T: 36.8 ?C(Oral) HR: 71(Monitored) RR: 21 BP: 112/70 SpO2: 94% HT: 149.86 cm WT: 88.9 kg General: non-toxic appearing Skin: warm, dry, no rash Head: AT/NC Neck: Trachea midline, supple Eye: normal conjunctiva, sclera clear Cardiovascular: regular rate and rhythm, S1S2, normal peripheral perfusion Respiratory: Lungs CTA, respirations non labored, breath sounds equal, no w/r/r Chest wall: no deformity Gastrointestinal: soft, NT, ND, no peritoneal signs Extremities: no deformity, trace BLE edema Neurological: LOC appropriate for age, no focal deficits, normal speech Psychiatric: cooperative, affect appropriate for age, good eye contact Lab Results WBC: 5.6 E9/L (07/30/23 21:45:00) RBC: 4.3 E12/L (07/30/23 21:45:00) HGB: 12.5 gm/dL (07/30/23 21:45:00) Hct: 38 % (07/30/23 21:45:00) MCV: 89 fL (07/30/23 21:45:00) MCH: 29.2 pg (07/30/23 21:45:00) MCHC: 32.9 gm/dL (07/30/23:45:00) RDW: 14.7 % High (07/30/23:45:00) Platelet: 215 E9/L (07/30/23:45:00) MPV: 7.1 fL (07/30/23:45:00) Neutro Auto: 56.7 % (07/30/23:45:00) Lymph Auto: 30.5 % (07/30/23:45:) [place] Auto: 7.8 % (07/30/23:45:00) Eos Auto: 4.1 % (07/30/23:45:) Basophil Auto: 0.9 % (07/30/23:45:) Neutro Absolute: 3.2 E9/L (07/30/23:45:00) Lymph Absolute: 1.7 E9/L (07/30/23:45:00) [place] Absolute: 0.4 E9/L (07/30/23:45:00) Eos Absolute: 0.2 E9/L (07/30/23:45:00) Basophil Absolute: 0 E9/L (07/30/23:45:00) Glucose Lvl: 140 mg/dL (07/30/23:45:00) BUN: 20 mg/dL (07/30/23:45:00) Creatinine: 1.5 mg/dL High (07/30/23:45:00) eGFR: 35 mL/min/1.73 m2 Low (07/30/2345:) BUN/Creat Ratio: 13 (07/30/23:45:00) Sodium Lvl: 143 mmol/L (07/30/23:45:00) Potassium Lvl: 4 mmol/L (07/30/23:45:00) Chloride: 101 mmol/L (07/30/23:45:00) CO2: 31 mmol/L (07/30/23:45:00) AGAP: 15 mEq/L (07/30/23:45:00) Calcium Lvl: 10 mg/dL (07/30/23:45:00) Alk Phos: 83 Int._Unit/L (07/30/23 21:45:00) ALT: 9 Int._Unit/L (07/30/23 21:45:00) AST: 15 Int._Unit/L (07/30/23 21:45:00) Total Protein: 7.1 gm/dL (07/30/23 21:45:00) Albumin Lvl: 4.1 gm/dL (07/30/23 21:45:00) Globulin: 3 gm/dL (07/30/23:45:00) A/G Ratio: 1.4 (07/30/23 21:45:00) Bili Total: 0.4 mg/dL (07/30/23:45:00) Bili Direct: 0.1 mg/dL (07/30/23:45:00) Bili Indirect: 0.3 mg/dL (07/30/23 21:45:00) Lactic Acid Lvl: 2.1 mmol/L (07/31/23 00:06:00) Troponin: 3.6 pg/mL Low (07/31/23 00:06:00) BNP: 114 pg/mL High (07/30/23 21:45:00) Glucose Cap: 127 mg/dL High (07/30/23 20:34:00) POC Device SN: [id number] (07/30/23 20:34:00) POC User ID: [id number] (07/30/23 20:34:00) POC Username: DREAD CHURCH (07/30/23 20:34:00) UA Spec Desc: Clean Catch (07/30/23 22:50:00) UA Color: Yellow2 (07/30/23 22:50:00) UA Clarity: Clear2 (07/30/23 22:50:00) UA Spec Grav: 1.015 (07/30/23 22:50:00) UA pH: 7.0 (07/30/23 22:50:00) (more content not included)...[facility] HospitalComment on above:Result Comment: Electronically Signed By: Marquez BRIGGS, Christie\.br\Date and Time Signed: 07/31/23 03:31 [id number] Evaluation note* Encounter Date Diagnosis Assessment Notes [...] magnesium. Will increase oral magnesium once daily. [employer] Other 12-28-2023 Evaluation note* Encounter Date Diagnosis Assessment Notes Treatment Notes Treatment Clinical Notes May, Acute non-recurrent maxillary sinusitis (ICD-10 - J01.00) Take antibiotic as directed. If develop wheezing, chest tightness, itching, bad cough, blue skin color, seizures, swelling of face, lips, tongue, or throat report to ED. [employer] [facility] Other 10-02-2023 Evaluation note* Encounter Date Diagnosis Assessment Notes Treatment Notes Treatment Clinical Notes Mar, Lumbosacral spondylosis (ICD-10 - M47.817) Hendley refilled. Requests to increase dose due to [...] symptoms. Any developing patterns. Stay well hydrated. [employer] Other 08-08-2023 Evaluation note* Encounter Date Diagnosis Assessment Notes Treatment Notes Treatment Clinical Notes Jan, Hypertensive chronic kidney disease with stage 1 through stage 4 chronic kidney disease, or unspecified chronic kidney disease (ICD-10 - I12.9) [employer] [facility] Other 07-17-2023 Evaluation note* Encounter Date Diagnosis [...] due to the multiple course of antibiotics [employer] Other 01-09-2023 Evaluation note* Encounter Date Diagnosis Assessment Notes [...] has a low magnesium. Continue oral magnesium [employer] Other 12-22-2022 History general Narrative - Reported* Type Description Date Medical History DM Medical History Fibromyalgia Medical History Arthritis Medical History HIP PAIN BILATERAL Medical History NERVE 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 BI LATERAL Medical History UTI 05/27/22 [facility] E R Surgical History Procedure:Colostomy;Disease: no [...] NERVE BLOCK 04/09/2022 Hospitalization History see above [employer] Other 12-22-2022 History general Narrative - Reported* Type Description Date Medical History DM Medical History Fibromyalgia Medical History Arthritis Medical History HIP PAIN BILATERAL Medical History NERVE 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 BI LATERAL Medical History UTI 05/27/22 [facility] E R Medical History UTI 11/06/2022 GIVEN BACTRIM Medical History UTI 11/10/2022 TAKEN TO [facility] Surgical History Procedure:Colostomy;Disease: no t current Surgical History right TKA 2016 Surgical History left TKA 2018 Surgical History Procedure:Lt femur with yadiel 3 [...] History UTI 11/06/2022 Hospitalization History UTI AT [facility] AND THEN [facility] 11/12/2022 [employer] [facility] Other 12-22-2022 History general Narrative - Reported* Type Description Date Medical History DM Medical History Fibromyalgia Medical History Arthritis Medical History HIP PAIN BILATERAL Medical History NERVE 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 BI LATERAL Medical History UTI 05/27/22 [facility] E R Medical History UTI 11/06/2022 GIVEN BACTRIM Medical History UTI 11/10/2022 TAKEN TO [facility] Surgical History Colostomy Surgical History right TKA 2016 Surgical History left TKA 2017 Surgical History Lt femur with yadiel 3 [...] History UTI 11/06/2022 Hospitalization History UTI AT [facility] AND THEN [facility] 11/12/2022 [facility] Other 09-15-2022 History of Present illness Narrative* Madai Webb MD - 02/18/2022 8:44 PM EDT Images from the original note were not included. EMERGENCY TRIAGE, TREAT AND TRANSPORT (ET3) DOCUMENTATION OF TELEHEALTH VISIT Date / Time: 01/08/2022 / 0345am Name: Suhas Patterson : 1945 SSN: [id number] EMS Agency: [facility] [x] Verbal consent obtained [] [...] by: Madai Webb MD documented in this [id number] NotePROCEDURE: XR ANKLE RT MIN 3 VIEWS, [...] Electronically authenticated by: LINDA REED Date: 2021-11-16 16:37[facility]06-13-2022 NotePROCEDURE: XR ANKLE RT MIN 3 [...] Electronically authenticated by: LINDA REED Date: 2021-11-16 16:37[facility]01-13-2022 Evaluation note* Encounter Date Diagnosis Assessment [...] within the goal. Continue [place] D 16776 units 3/week Jun, Gout (ICD-10 - M10.9) [...] UTI so I have prescribed oral antibiotic. [employer] [facility] Other Evaluation + Plan note No data available for this section [facility] Evaluation note* Diagnosis Fall, initial encounter- Primary documented in this encounter [facility] InformationNort[facility] [employer] Other Evaluation noteNo assessment information available [facility] Work Phone: Evaluation note* Diagnosis Onset Date Resolution Status Cellulitis of leg without foot, left acute Fibromyalgia acute Insomnia acute Restless leg syndrome acute Anemia of renal disease acut e CKD (chronic kidney disease) stage 3, GFR 30-59 ml/min acute 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 Gout acute [id number] acute Hypomagnesemia acute Secondary hyperparathyroidism acute [facility] Work Phone: Evaluation note* Diagnosis Onset Date Resolution Status Anemia of renal disease acut e CKD (chronic kidney disease) stage 3, GFR 30-59 ml/min acute 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 Gout acute Hyperlipidemia acute [id number] acute Hypomagnesemia acute Secondary hyperparathyroidism acute [facility] Work Phone: Evaluation note* Diagnosis Onset Date Resolution Status Fibromyalgia acute Insomnia acute Restless leg syndrome acute [facility] Work Phone: History general Narrative - [...] History perforated bowel Hospitalization History see above [employer] Other Hospital Discharge instructions No data available for this section [employer] [facility] Progress note No data available for this section [facility] Summary Purpose Family History No Family History Records Found Relationship Condition Age at Onset Recorded Date/T erin Not Specified Unknown family medical history Unknown brother Malignant neoplasm Unknown father Diabetes mellitus Unknown Hypertension Unknown Heart disease Unknown Unknown mother Hypertension Unknown Diabetes mellitus Unknown son Hypertension Unknown Advance Directives No Advanced Directives Records Found Advance Directive Response Recorded Date/ Time Advance [...] Diabetes mellitus with chronic kidney disease Gout [id number] Hypomagnesemia Secondary hyperparathyroidism Chief Complaint RENAL 6 month follow up 3 month f/u/med refills Reason for Visit Anemia of renal dise ase CKD (chronic kidney disease) stage 3, GFR 30-59 ml/min Diabetes mellitus with chronic kidney disease Gout Hyperlipidemia [id number] Hypomagnesemia Secondary hyperparathyroidism Chief Complaint 3 month f/u/med refi lls chest congestion Reason for Visit Fibromyalgia Insomnia Restless leg syndrome Additional Source Comments INFORMATION SOURCE (unrecogn ized section and content) DATE CREATED AUTHOR 11/29/[address] [facility] DATE CREATED AUTHOR AUTHOR'S ORGANIZ ATION 03/06/2022 [facility] DATE CREATED AUTHOR AUTHOR'S ORGANIZ ATION 06/08/2022 [facility] DATE CREATED AUTHOR AUTHOR'S ORGANIZ ATION 07/12/2023 [facility] DATE CREATED AUTHOR AUTHOR'S ORGANIZ ATION 11/24/2023 [facility] DATE CREATED AUTHOR AUTHOR'S ORGANIZ ATION 04/05/2024 [facility] DATE CREATED AUTHOR AUTHOR'S ORGANIZ ATION 04/06/2024 [facility] DATE CREATED AUTHOR AUTHOR'S ORGANIZ ATION 04/07/2024 [facility] DATE CREATED AUTHOR AUTHOR'S ORGANIZ ATION 04/08/2024 [facility] DATE CREATED AUTHOR AUTHOR'S ORGANIZ ATION 04/12/2024 [facility] DATE CREATED AUTHOR AUTHOR'S ORGANIZ ATION 04/13/2024 [facility] DATE CREATED AUTHOR AUTHOR'S ORGANIZ ATION 05/30/2024 [facility] REASON FOR VISIT (unrecogniz ed section and content) Reason Comments Fall Controlled mechanica l fall, lowered while onto bed. Patient Care team informatio n (unrecognized section and content) Team Status: Active Member Role Status Dates Art Villeda DO Primary Care Provider Active Team Status: Active Member Role Status Dates Art Villeda DO Primary Care Provider Active Start: January 16, 2024 Harpal Hayes MD Attending Provider Active St art: January 16, 2024 Team Status: Inactive Member Role Status Dates Art Villeda DO Primary Care Provider Active Start: March 19, 2024 End: March 19, 2024 Harpal Hayes MD Attending Provider Active St art: March 19, 2024 End: March 19, 2024 Team Status: Inactive Member Role Status Dates Art Villeda , DO Primary Care Provider Active Start: April 02, 2024 End: April 02, 2024 Harpal Hayes MD Attending Provider Active St art: April 02, 2024 End: April 02, 2024 Team Status: Inactive Member Role Status Dates Art Villeda , DO Primary Care Provider Active Start: December 12, 2023 End: December 12, 2023 Harpal Hayes MD Attending Provider Active St art: December 12, 2023 End: December 12, 2023 Team Status: Active Member Role Status Dates Art Villeda , DO Primary Care Provider Active Start: December 13, 2023 Yaneth Solo MD Attending Provider Active Start : December 13, 2023 Team Status: Inactive Member Role Status Dates Art Villeda , DO Primary Care Provider Active Start: December 20, 2023 End: December 20, 2023 Yaneth Solo MD Attending Provider Active Start : December [...] BE BASED ON THE PRIMARY CLINICAL RECORDS. [employer] provides no warranty or guarantee of the accuracy or completeness of information in this document.
--- NOTE | 2024-07-12 01:07 | XR_ITS ---
The [address] [address] Patient Name: NADIA COOLEY MRN: [id number] date: 1945 Sex: F Assigned Patient Location: ER Current Patient Location: ER Accession/Order Number: [id number] Exam Date: 07/12/2024 01:35 Report Date: 07/12/2024 02:08 At the request of: FABIO FAUSTIN Procedure: XR chest 1V EXAM: XR chest 1V HISTORY: Cough. COMPARISON: 03/31/2023. TECHNIQUE: AP upright portable. FINDINGS: Mildly diminished lung volumes. Stable cardiac enlargement. Pulmonary vascularity is within normal limits. Stable mild elevation of the right hemidiaphragm. The costophrenic angles are clear. XR/XR chest 1V IMPRESSION: Mild stable cardiac enlargement. No acute cardiopulmonary disease. Electronically authenticated by: LENORE VERMA Date: 07/12/2024 02:08
--- NOTE | 2024-07-12 01:07 | ECG_ITS ---
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
--- NOTE | 2024-07-12 01:08 | ED.GENADUL1 ---
HPI HPI - General Adult General Chief complaint: Weakness Stated complaint: WEAKNESS Time Seen by Provider: 07/12/24 01:00 History of Present Illness HPI narrative: 79-year-old female presents for weakness and cough. She was transported here by paramedics who give most of the history. Apparently she has been ill for a few days. There is no history of vomiting or diarrhea. They were reported that she had urinated on herself. She has been more tremulous than typical, she has essential tremor. Related Data Previous Rx's ?Medication ?Instructions ?Recorded cephalexin 500 mg capsule 500 mg PO Q12H 7 days #14 caps 03/14/23 Allergies Allergy/AdvReac Type Severity Reaction Status Date / Time butorphanol (From Stadol) Allergy Severe Verified 03/14/23 13:59 sulfamethoxazole (From Allergy Severe Verified 04/03/23 15:13 Bactrim) trimethoprim (From Bactrim) Allergy Severe Verified 04/03/23 15:13 Opioid HPI Opioid Management Most Recent Opioid Data: Last Pain Scale 7 03/31/23 13:51 03/31/23 Review of Systems ROS Narrative Not obtainable, age PFSH PFSH Social History Smoking status: Never smoker Little interest or pleasure in doing things: not at all Feeling down, depressed, or hopeless: not at all Exam Narrative Exam Narrative: Nurses note and vital signs reviewed and patient is not hypoxic. General: The patient appears in no acute respiratory distress. Skin: Warm, dry, no pallor noted. There is no rash noted. Head: Normocephalic, atraumatic Eye: Normal conjunctiva, no drainage Ears, Nose, Mouth, and Throat: oral mucosa is slightly dry. Nares patent. Cardiovascular: Regular Rate and Rhythm Respiratory: Patient is in no distress, no accessory muscle use, lungs are clear to auscultation, no wheezing, rales or rhonchi GI: Soft and nontender Musculoskeletal: The patient has no evidence of calf tenderness, no pitting edema, symmetrical pulses noted bilaterally Neurological: Awake and alert. She knows her name and where she is in the year and why she is here. She has significant tremors. Psychiatric: Cooperative Constitutional Vital Signs, click to edit/add: Last Vital Signs Temp 101 F H 07/12/24 01:35 Pulse 97 H 02/06/25 03:30 Resp 31 H 07/12/24 03:30 BP 109/60 07/12/24 03:30 Pulse Ox 93 L 07/12/24 03:30 O2 Del Method Room Air 07/12/24 01:35 O2 Flow Rate 3 07/12/24 01:10 Course Vital Signs Vital signs: Vital Signs Blood Pressure 142/84 H 07/12/24 01:09 Temperature 101 F H 07/12/24 01:35 Pulse Rate 97 H 07/12/24 03:30 Respiratory Rate 31 H 07/12/24 03:30 Blood Pressure 109/60 07/12/24 03:30 Pulse Oximetry 93 L 07/12/24 03:30 Oxygen Delivery Method Room Air 07/12/24 01:35 Oxygen Delivery Flow Rate 3 07/12/24 01:10 Medical Decision Making MDM Narrative Medical decision making narrative: The patient presented with fever and generalized weakness. Urinary tract infection is identified. White count is not elevated and her COVID and influenza are negative. Lactic acid is not elevated at 1.9. Blood cultures and urine culture were obtained and she was given IV Rocephin. She is being admitted. Differential Diagnosis Differential Diagnosis: Pneumonia, UTI, COVID, influenza Lab Data Lab results reviewed: Yes I reviewed the patient's lab results Labs: Lab Results 07/12/24 07/12/24 07/12/24 Range/Units 01:20 02:27 03:10 WBC 7.9 (4.0-11.0) 10^3/uL RBC 4.34 (4.20-5.40) 10^6/uL Hgb 12.7 (12.0-16.0) g/dL Hct 39.5 (36.0-48.0) % MCV 91.0 (81.0-99.0) fL MCH 29.3 (26.7-34.0) pg MCHC 32.2 (29.9-35.2) g/dL RDW 13.7 (11.0-15.0) % Plt Count 203 (150-450) 10^3/uL MPV 9.1 L (9.5-13.5) fL Neut % (Auto) 78.8 H (43.0-75.0) % Lymph % (Auto) 10.9 L (20.5-60.0) % [place] % (Auto) 9.4 (1.7-12.0) % Eos % (Auto) 0.0 L (0.9-7.0) % Baso % (Auto) 0.5 (0.2-2.0) % Neut # (Auto) 6.2 (1.4-6.5) 10^3/uL Lymph # (Auto) 0.9 L (1.2-3.8) 10^3/uL [place] # (Auto) 0.7 (0.3-0.8) 10^3/uL Eos # (Auto) 0.0 (0.0-0.7) 10^3/uL Baso # (Auto) 0.0 (0.0-0.1) 10^3/uL Abs Immat Gran (auto) 0.03 (0.00-0.03) 10^3/uL Imm/Tot Granulo (auto) 0.4 (0.0-0.5) % Sodium 144 (136-145) mmol/L Potassium 3.4 L (3.5-5.1) mmol/L Chloride 102 (98-107) mmol/L Carbon Dioxide 32.4 H (21.0-32.0) mmol/L Anion Gap 13.0 BUN 20.0 H (7.0-18.0) mg/dL Creatinine 1.88 H (0.55-1.02) mg/dL Est GFR ( Amer) 31 L (>=60 mL/min/1.73m^2) Est GFR (Non-Af Amer) 26 L (>=60 mL/min/1.73m^2) BUN/Creatinine Ratio 10.6 Glucose 174 H (74-106) mg/dL Lactate 1.9 (0.4-2.0) mmol/L Calcium 9.5 (8.5-10.1) mg/dL Troponin I High Sens 68.6 H* 73.5 H* (4.0-51.3) pg/mL Urine Color (YELLOW) Urine Clarity (CLEAR) Urine pH (5.0-9.0) Ur Specific [place] (1.005-1.025) Urine Protein (NEG/TRACE) mg/dL Urine Glucose (UA) (NEGATIVE) mg/dL Urine Ketones (NEGATIVE) mg/dL Urine Occult Blood (NEGATIVE) Urine Nitrite (NEGATIVE) Urine Bilirubin (NEGATIVE) Urine Urobilinogen (0.2-1.0) EU/dL Ur Leukocyte Esterase (NEGATIVE) Urine RBC (0-2) #/HPF Urine WBC (NONE SEEN) #/HPF Ur Squamous Epith Cells (NONE/RARE) #/LPF Urine Crystals (None Seen) #/HPF Urine Bacteria (NONE SEEN) #/HPF Urine Casts (NONE SEEN) #/LPF Urine Mucus (NONE SEEN) Ur Culture Indicated? Influenza Type A Ag Negative Influenza Type B Ag Negative SARS-CoV-2 Ag (CV2AG) Negative (NEGATIVE) 07/12/24 Range/Units 03:26 WBC (4.0-11.0) 10^3/uL RBC (4.20-5.40) 10^6/uL Hgb (12.0-16.0) g/dL Hct (36.0-48.0) % MCV (81.0-99.0) fL MCH (26.7-34.0) pg MCHC (29.9-35.2) g/dL RDW (11.0-15.0) % Plt Count (150-450) 10^3/uL MPV (9.5-13.5) fL Neut % (Auto) (43.0-75.0) % Lymph % (Auto) (20.5-60.0) % [place] % (Auto) (1.7-12.0) % Eos % (Auto) (0.9-7.0) % Baso % (Auto) (0.2-2.0) % Neut # (Auto) (1.4-6.5) 10^3/uL Lymph # (Auto) (1.2-3.8) 10^3/uL [place] # (Auto) (0.3-0.8) 10^3/uL Eos # (Auto) (0.0-0.7) 10^3/uL Baso # (Auto) (0.0-0.1) 10^3/uL Abs Immat Gran (auto) (0.00-0.03) 10^3/uL Imm/Tot Granulo (auto) (0.0-0.5) % Sodium (136-145) mmol/L Potassium (3.5-5.1) mmol/L Chloride (98-107) mmol/L Carbon Dioxide (21.0-32.0) mmol/L Anion Gap BUN (7.0-18.0) mg/dL Creatinine (0.55-1.02) mg/dL Est GFR ( Amer) (>=60 mL/min/1.73m^2) Est GFR (Non-Af Amer) (>=60 mL/min/1.73m^2) BUN/Creatinine Ratio Glucose (74-106) mg/dL Lactate (0.4-2.0) mmol/L Calcium (8.5-10.1) mg/dL Troponin I High Sens (4.0-51.3) pg/mL Urine Color Lt. yellow (YELLOW) Urine Clarity Clear (CLEAR) Urine pH 6.0 (5.0-9.0) Ur Specific [place] 1.015 (1.005-1.025) Urine Protein 30 A (NEG/TRACE) mg/dL Urine Glucose (UA) Negative (NEGATIVE) mg/dL Urine Ketones Trace A (NEGATIVE) mg/dL Urine Occult Blood Moderate A (NEGATIVE) Urine Nitrite Positive A (NEGATIVE) Urine Bilirubin Negative (NEGATIVE) Urine Urobilinogen 0.2 (0.2-1.0) EU/dL Ur Leukocyte Esterase Trace A (NEGATIVE) Urine RBC 2-5 A (0-2) #/HPF Urine WBC 10-20 A (NONE SEEN) #/HPF Ur Squamous Epith Cells Rare (NONE/RARE) #/LPF Urine Crystals None seen (None Seen) #/HPF Urine Bacteria Large A (NONE SEEN) #/HPF Urine Casts None seen (NONE SEEN) #/LPF Urine Mucus None seen (NONE SEEN) Ur Culture Indicated? Yes Influenza Type A Ag Influenza Type B Ag SARS-CoV-2 Ag (CV2AG) (NEGATIVE) Imaging Data Chest x-ray: Radiologist's impression: ITS Impressions Chest X-Ray 07/12/24 01:07 IMPRESSION: Mild stable cardiac enlargement. No acute cardiopulmonary disease. Electronically authenticated by: LENORE VERMA Date: 07/12/2024 02:08 ECG Data Attestation: I personally reviewed and interpreted this ECG as follows: (EKG on my interpretation shows sinus tachycardia with a rate of 113 and artifact. The patient has essential tremors.) Discharge Plan Discharge Chief Complaint: Weakness Clinical Impression: Urinary tract infection, Generalized weakness, Fever Patient Disposition: Admitted As Inpatient Time of Disposition Decision: 04:11 Condition: Fair
[2024-07-12] MEDS: ACETAMINOPHEN 325 MG TABLET 650 MG PO ×4 (02:12→21:16)
[2024-07-12] MEDS: 0.9 % SODIUM CHLORIDE 500 ML IV (02:12)
[2024-07-12 02:33] LABS: Influenza Virus A Antigen Negative; Influenza Virus B Antigen Negative; Internal Control Within Normal Limits; SARS-CoV-2 Ag NEGATIVE (NEGATIVE)
[2024-07-12 02:36] LABS: Basophils Percent Auto 0.5 % (0.2-2.0); Hematocrit 39.5 % (36.0-48.0); Hemoglobin 12.7 g/dL (12.0-16.0); Immature Granulocytes Abs Auto 0.03 10^3/uL (0.00-0.03); Immature Granulocytes Pct Auto 0.4 % (0.0-0.5); Lymphocytes Absolute Auto 0.9 10^3/uL (1.2-3.8); Lymphocytes Percent Auto 10.9 % (20.5-60.0); Mean Corpuscular HGB Conc 32.2 g/dL (29.9-35.2); Mean Corpuscular Hemoglobin 29.3 pg (26.7-34.0); Mean Platelet Volume 9.1 fL (9.5-13.5); Monocytes Absolute Auto 0.7 10^3/uL (0.3-0.8); Monocytes Percent Auto 9.4 % (1.7-12.0); Neutrophils Absolute Auto 6.2 10^3/uL (1.4-6.5); Neutrophils Percent Auto 78.8 % (43.0-75.0); Platelet Count 203 10^3/uL (150-450); Red Blood Count 4.34 10^6/uL (4.20-5.40); Red Cell Distribution Width 13.7 % (11.0-15.0); White Blood Count 7.9 10^3/uL (4.0-11.0)
[2024-07-12 02:56] LABS: BUN Creatinine Ratio 10.6; Calcium 9.5 mg/dL (8.5-10.1); Carbon Dioxide 32.4 mmol/L (21.0-32.0); Chloride 102 mmol/L (98-107); Estimated GFR (African America 31 (>=60 mL/min/1.73m^2); Estimated GFR (Non-African Ame 26 (>=60 mL/min/1.73m^2); Glucose 174 mg/dL (74-106); Lactate/Lactic Acid 1.9 mmol/L (0.4-2.0); Potassium 3.4 mmol/L (3.5-5.1); Sodium 144 mmol/L (136-145)
[2024-07-12 03:01] LABS: Troponin I High Sensitivity 68.6 pg/mL (4.0-51.3)
[2024-07-12 03:31] LABS: Bilirubin Urine NEGATIVE (NEGATIVE); Blood Urine MODERATE (NEGATIVE); Clarity Urine CLEAR (CLEAR); Color Urine LT. YELLOW (YELLOW); Glucose Urine UA NEGATIVE (NEGATIVE); Ketones Urine TRACE mg/dL (NEGATIVE); Leukocyte Esterase Urine TRACE (NEGATIVE); Nitrite Urine POSITIVE (NEGATIVE); Protein Urine 30 mg/dL (NEG/TRACE); Specific Gravity Urine 1.015 (1.005-1.025); Urobilinogen Urine 0.2 EU/dL (0.2-1.0)
[2024-07-12 03:37] LABS: Bacteria Urine LARGE #/HPF (NONE SEEN); Cast Seen? NONE SEEN #/LPF (NONE SEEN); Crystals Seen? None Seen #/HPF (None Seen); Mucus Urine NONE SEEN (NONE SEEN); Squamous Epithelial Cell Urine RARE #/LPF (NONE/RARE); Urine Culture Indicated YES
[2024-07-12 03:42] LABS: Troponin I High Sensitivity 73.5 pg/mL (4.0-51.3)
[2024-07-12] MEDS: CEFTRIAXONE 1,000 MG in 0.9 % SODIUM CHLORIDE 50 ML 100 MG IV (04:19)
--- OUTSIDE RECORDS SUMMARY | 2024-07-12 05:13 | XMS_ITS | CCD ---
Author Organization [facility] Care Team Providers Care Furniture Mover Name Role Phone PHYSICIAN, DEFAULT Unavailable Unavailable [...] Primary Care Unavailable MEI DAS Attending Unavailable MIE DAS Admitting Unavailable FREDDY, DR HARPAL Rodriguez [...] GOMEZ Consulting Unavailable ANDRADE LEWIS Consulting Unavailable EL PARRA Attending Unavailable LE PARRA Admitting Unavailable [...] Translations: [Stadol] Drug Allergy 2 ANXIOUS [facility] Repository (14 sources) PT DENIES ANY METAL ALLERGY Propensity to adverse reactions Unknown [facility] Other (9 sources) Butorphanol; Translations: [butorphanol] Drug Allergy 4 [facility] (10 sources) Stadol *ANALGESICS - OPIOID* Propensity to adverse reactions Unknown [facility] Other (2 sources) Allergies Reconciled Propensity to adverse reactions Unknown [facility] Other (1 source) Butorphanol; Translations: [BUTORPHANOL TARTRATE] [...] every eight hours as needed for pain Milford 325 mg-5 mg oral tablet 1 tab(s), Oral, q8hr as needed for pain, Refill(s) 0 Start Date: 12/06/22 Status: Ordered Start: 11-13-2022 Milford 325 mg-5 mg oral tablet 1 tab(s), [...] Daily, # 2 tab(s), Refills(s) 0, Pharmacy: [facility], 149.9, cm, 07/30/23 20:35:00 EST, Height/Length [...] day(s), # 15 cap(s), Refills(s) 0, Pharmacy: [facility], 157.4, cm, 04/04/24 0:33:00 EDT, Height/Length [...] day(s), # 8 cap(s), Refills(s) 0, Pharmacy: [facility], 152, cm, 12/02/22 9:48:00 EDT, Height/Length Dosing, 87.8, kg, 12/02/22 9:48:00 EDT, Weight Dosing Start Date: 12/03/22 Stop Date: 12/07/22 Status: Ordered cefuroxime 500 mg oral tablet (2 sources) Cephalosporin Antibacterial Start: 08-03-2023 take 1 tablet by mouth twice daily cefuroxime 500 mg oral tablet 500 mg = 1 tab(s), Oral, BID, # 4 tab(s), Refills(s) 0, Pharmacy: [facility], 149.9, cm, 07/30/23 20:35:00 EST, [...] WED, FRI Active [facility] Vitamin D3 Maximum Strength 125 MCG (5000 UT) 1 tab(s) Orally THREE TIMES A WEEK Active Vitamin D3 250 M CG (35104 UT) 1 capsule Orally MON, TUE, FRI [...] Start: 07-31-2023 take 1 capsule by [facility] twice daily as needed for constipation Colace 100 mg Cap 100 mg = 1 cap(s), Oral, BID, PRN for constipation, # 20 cap(s), Refills(s) 0 Start Date: 07/31/23 Status: Ordered take 1 capsule by [facility] four times weekly as needed Stool Softener [...] 11/11/22 Status: Ordered take 1 tablet by [facility] three times weekly Ferrous Sulfate 325 [...] Daily, # 30 tab(s), Refills(s) 0, Pharmacy: [facility], 157.4, cm, 04/04/24 0:33:00 EDT, [...] 0 Start Date: 11/11/22 Status: Ordered Nystatin 130843 UNIT/GM 1 application Externally Twice a day [...] Date: 04/06/24 Status: Ordered polyethylene glycol 3350 66953 mg powder for oral solution (14 sources) [...] Daily, # 30 tab(s), Refills(s) 0, Pharmacy: 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) drug therapy; Translations: [OTH SENIOR LIVING CURRENT DRUG THERAPY] Onset: 2 Episodic Other aftercare (1 source) penitentiary (current) use of oral hypoglycemic drugs; Translations: [SENIOR LIVING USE ORAL HYPOGLYCEMIC DX] Onset: 2 Episodic Other aftercare (1 source) terminal block assembler (current) use of insulin; Translations: [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 VICE PRESIDENT CURRENT USE OF INSULIN] Onset: 2 Episodic Other aftercare (3 sources) Long-term current use of drug therapy; Translations: [Other longterm (current) drug therapy] Onset: 4 Episodic Other [...] Range Facility Office Visiton 05-28-2024 Follow-up visit [id number] Nadia Patterson 1945 F Date Provider Department Center 05/28/2024 271-NORMAN, JOSH CARD [facility] No family history on file Level of Service:17368 [place] OFFICE/OUTPATIENT ESTABLISHED LOW MDM 20 MIN Normal [facility] C Sputumon 04-07-2024 Bacteria identified Respiratory culture [...] This test was performed at: [facility], [address] [place] [address], [id number]- , [place], Normal [facility] Comment on above: Performed By: #### 2 [id number] #### [facility] [address] [place] [address] BMPon 04-06-2024 Anion gap [Moles/Vol] 12 mmol/L Normal 6-16 [facility] Comment on above: Performed By: #### 2 [id number] #### [facility] [address] [place] [address] Calcium [Mass/Vol] 8.7 mg/dL Low 8.9-11.1 [facility] Comment on above: Performed By: #### 2 [id number] #### [facility] [address] [place] [address] Chloride [Moles/Vol] 106 mmol/L Normal 101-111 [facility] Comment on above: Performed By: #### 2 [id number] #### [facility] [address] [place] [address] CO2 [Moles/Vol] 25 mmol/L Normal 21-31 [facility] Comment on above: Performed By: #### 2 [id number] #### [facility] [address] [place] [address] Creatinine [Mass/Vol] 1.4 mg/dL High 0.5-1.3 [facility] Comment on above: Performed By: #### 2 [id number] #### [facility] [address] [place] [address] Glucose [Mass/Vol] 138 mg/dL Normal 55-199 [facility] Comment on above: Performed By: #### 2 [id number] #### [facility] [address] [place] [address] Potassium [Moles/Vol] 4.5 mmol/L Normal 3.5-5.3 [facility] Comment on above: Performed By: #### 2 [id number] #### [facility] [address] [place] [address] Sodium [Moles/Vol] 138 mmol/L Normal 135-145 [facility] Comment on above: Performed By: #### 2 [id number] #### [facility] [address] [place] [address] Urea nitrogen [Mass/Vol] 16 mg/dL Normal 5-21 [facility] Comment on above: Performed By: #### 2 [id number] #### [facility] [address] [place] [address] Urea nitrogen/Creatinine [Mass ratio] 11 No Units Normal 10-20 [facility] Comment on above: Performed By: #### 2 [id number] #### [facility] [address] [place] [address] C Urineon 04-06-2024 Bacteria identified Cx Nom [...] Locations R1: This test was performed at: [email or web address], [address] [place] [address], [address] , , Normal [facility] Comment on above: Performed By: #### 2 [id number] #### [facility] [address] [place] [address] CHEMISTRYOrdered By: Yane ROP User on 04-06-2024 Glucose [Mass/Vol] 137 mg/dL High 55 - 99 mg/dL [facility] POC Subsection Comment on above: Result Comment: Michelle erickson RN/ POC Device SN [id number] 1 Invalid Interpretation Code [facility] POC Subsection POC User ID [id number] 1 Invalid Interpretation Code [facility] POC Subsection POC Username MARIELA LI Invalid Interpretation Code [facility] POC Subsection Glucose [Mass/Vol] 236 mg/dL High 55 - 99 mg/dL [facility] POC Subsection Comment on above: Result Comment: Michelle dre RN/ POC Device SN [id number] 1 Invalid Interpretation Code [facility] POC Subsection POC User ID [id number] 1 Invalid Interpretation Code [facility] POC Subsection POC Username HENRY PEPPER Invalid Interpretation Code [facility] POC Subsection Glucose [Mass/Vol] 123 mg/dL High 55 - 99 mg/dL [facility] POC Subsection Comment on above: Result Comment: Michelle dre RN/ POC Device SN [id number] 1 Invalid Interpretation Code [facility] POC Subsection POC User ID [id number] 1 Invalid Interpretation Code [facility] POC Subsection [...] 11-0 Glucose [Mass/Vol] 137 mg/dL High 55-99 [facility] Comment on above: Result Comment: Michelle PACHECO Performed By: #### 2 [id number] #### [facility] [address] [place] [address] Glucose [Mass/Vol] 236 mg/dL High 55-99 [facility] Comment on above: Result Comment: Michelle PACHECO Performed By: #### 2 [id number] #### [facility] [address] [place] [address] Glucose [Mass/Vol] 123 mg/dL High 55-99 [facility] Comment on above: Result Comment: Michelle PACHECO Performed By: #### 2 [id number] #### [facility] [address] [place] [address] HEMATOLOGYOrdered By: SYSTEM SYSTEM on 04-06-2024 Hematocrit (Bld) [Volume fraction] 32.0 % Low 34.0 - 46.0 % Remisol Heme Hemoglobin (Bld) [Mass/Vol] 10.8 g/dL Low 12.0 - 16.0 gm/dL Remisol Heme Hct & Hgbon 04-06-2024 Hematocrit (Bld) [Volume fraction] 32.0 % Low 34.0-46.0 [facility] Comment on above: Performed By: #### 1 [id number] #### [facility] [address] [place] [address] Hemoglobin (Bld) [Mass/Vol] 10.8 g/dL Low 12.0-16.0 [facility] Comment on above: Performed By: #### 1 [id number] #### [facility] [address] [place] [address] Inpatient Clinical Summaryon 04-06-2024 Inpatient Clinical Summary Inpatient Clinical Summary [address] [address] Clinical Summary Person Information: Name: NADIA PATTERSON Age: 78 Years : 1945 Sex: Female PCP: HARPAL HAYES MD Marital Status: Phone: [phone] Race: White Ethnicity: Non- or Language: Hungarian Visit Id: Visit Reason: Respiratory problem; Cough; Shortness of breath; fever Speciality: Acuity: Enc Type: Inpatient Med Service: Medical Arrival: 04/04/2024 00:25:34 Discharge: Dispo Type: Admitted as IP to this Hosp Address: [address] [place] [id number] Provider Notes: Diagnosis: 1:Acute respiratory failure with [...] not to exceed 4000 mg/day. acetaminophen-hydroc odone (Milford 325 mg-5 mg oral tablet) 1 Tablets [...] Referring Physician: Follow up: With: Address: When: [address] [place] [address] Business (1) 05/07/2024 2:00 PM With: Address: When: Decker [place] [address] [place] [address] [address] [id number] [phone] Business (1) Within 5 to 7 days Comments: Doctor's office is (more content not included)... Normal [facility] Inpatient Clinical Summary Inpatient Clinical Summary [address] [address] Clinical Summary Person Information: Name: NADIA PATTERSON Age: 78 Years : 1945 Sex: Female PCP: HARPAL HAYES MD Marital Status: Phone: [phone] Race: White Ethnicity: Non- or Language: Hungarian Visit Id: Visit Reason: Respiratory problem; Cough; Shortness of breath; fever Speciality: Acuity: Enc Type: Inpatient Med Service: Medical Arrival: 04/04/2024 00:25:34 Discharge: Dispo Type: Admitted as IP to this Hosp Address: [address] [place] [phone] Provider Notes: Diagnosis: 1:Acute respiratory failure with [...] not to exceed 4000 mg/day. acetaminophen-hydroc odone (Milford 325 mg-5 mg oral tablet) 1 Tablets [...] Follow up: With: Address: When: Brianne [facility], [address], [address] [phone] Business (1) Within 5 to 7 days With: Address: When: Toby Gomez . [place] [phone] Business (1) Within 5 to 7 days With: Address: When: Follow u (more content not included)... Normal [facility] Inpatient Clinical Summary Inpatient Clinical Summary [address] [address] Clinical Summary Person Information: Name: NADIA PATTERSON Age: 78 Years : 1945 Sex: Female PCP: HARPAL HAYES MD Marital Status: Phone: [phone] Race: White Ethnicity: Non- or Language: Hungarian Visit Id: Visit Reason: Respiratory problem; Cough; Shortness of breath; fever Speciality: Acuity: Enc Type: Inpatient Med Service: Medical Arrival: 04/04/2024 00:25:34 Discharge: Dispo Type: Admitted as IP to this Hosp Address: [address] [place] [phone] Provider Notes: Diagnosis: 1:Acute respiratory failure with [...] By Mouth every 6 hours. acetaminophen-hydroc odone (Milford 325 mg-5 mg oral tablet) 1 Tablets [...] Follow up: With: Address: When: HARPAL HAYES [address] [place] [address] [facility] (1) 04/12/2024 11:30 AM With: Address: When: Patient is currenct with [facility] [employer]. Patient Education Information: [facility] Inpatient Patient Summaryon 04-06-2024 Inpatient Patient [...] acetaminophen (acetaminophen 325 mg Tab) acetaminophen-hydroc odone (Milford 325 mg-5 mg oral tablet) albuterol (Albuterol [...] 02:00 PM EST Where: [place] [address]- Business (1) Follow Up with HARPAL HAYES When: 04/12/2024 11:30 AM EST Where: [address] [place] [address]- Business (1) Follow Up with Brianne Jane When: Within 5 to 7 days Comments: Doctor's office is closed for the day. Please call Tuesday to make hospital follow up appointment. Where: Sophie Merino, [address] [phone] Business (1) Follow Up with Follow up with your primary cardiology team as soon as possible When: Follow Up with Patient is currenct with [facility]. When: Medications What How Much When Instructions Next Dose New albuterol (Albuterol (Eqv-Ventolin HFA) 90 mcg/ inh inhalation aerosol) 1 Inhalation Inhalation Every 2 hours Pickup at [place] [address] as needed New amoxicillin-clavulan ate (Augmentin 875 mg-125 mg Tab) 1 Tablets By Mouth Every 12 hours Duration: 5 Days Pickup at [place] [address] start New benzonatate (Tessalon 100 mg Cap) 1 Capsules By Mouth 3 times a day as needed for Cough Duration: 5 Days Pickup at [place] [address] start New cyanocobalamin (cyanocobalamin 1000 mcg Tab) 1 Tablets By Mouth Every day Pickup at [place] [address] 04/07 New folic acid (folic acid 1 mg Tab) 1 Tablets By Mouth Every day Pickup at [place] [address] 04/07 New guaifenesin (Mucinex 600 mg Tab-ER) 2 Tablets By Mouth Every 12 hours Duration: 5 Days Pickup at [place] [address] 04/07@9am New pantoprazole (Protonix 40 mg Tab-DR) 1 Tablets By Mouth Every day Pickup at [place] [address] 04/07 Changed acetaminophen (acetaminophen 325 mg Tab) 2 Tablets By Mouth Every 6 hours as needed for Laine (more content not included)... Normal [facility] Inpatient Patient Summary Inpatient Patient Summary NADIA PATTERSON :1945 Visit Date:04/04/2024 Inpatient Discharge Instructions Your Care Team Admitting Physician - Tika CHRISTENSEN DO Consulting Physician - Delphine BRIGSG, Briseida [facility] Reason for Your Visit [...] acetaminophen (acetaminophen 325 mg Tab) acetaminophen-hydroc odone (Milford 325 mg-5 mg oral tablet) albuterol (Albuterol [...] 02:00 PM EST Where: [place] [address]- Business (1) Follow Up with HARPAL HAYES When: 04/12/2024 11:30 AM EST Where: [address] [place] [phone] Business (1) Follow Up with Brianne Jane When: Within 5 to 7 days Comments: Doctor's office is closed for the day. Please call Tuesday to make hospital follow up appointment. Where: Sophie Merino, [facility] [address] [phone] Business (1) Follow Up with Follow up with your primary cardiology team as soon as possible When: Follow Up with Patient is currenct with [facility]. When: Medications What How Much When Instructions Next Dose New albuterol (Albuterol (Eqv-Ventolin HFA) 90 mcg/ inh inhalation aerosol) 1 Inhalation Inhalation Every [address] [facility] 115 as needed New amoxicillin-clavulan ate (Augmentin 875 mg-125 mg Tab) 1 Tablets By Mouth Every 12 hours Duration: [address] [facility] 115 start New benzonatate (Tessalon 100 mg Cap) 1 Capsules By Mouth 3 times a day as needed for Cough Duration: [address] [facility] 1155 start New cyanocobalamin (cyanocobalamin 1000 mcg Tab) 1 Tablets By Mouth Every day Pickup at [place] [address] 04/07 New folic acid (folic acid 1 [...] Tablets By Mouth Every day Pickup at [facility] (more content not included)... Normal [facility] Inpatient Patient Summary Inpatient Patient Summary [place] [address] Patient Discharge Instructions PERSON INFORMATION Name: NADIA [...] When: Toby Santiago [place] [address] Business (1) 05/07/2024 2:00 PM With: Address: When: Brianne Barrios [facility], [address], [address] [phone] Business (1) Within 5 to 7 days Comments: Doctor's office is closed for the day. Please call Tuesday to make hospital follow up appointment. With: Address: When: Follow up with your primary cardiology team as soon as possible With: Address: When: HARPAL HAYES [address] [place] [address] Business (1) 04/12/2024 11:30 AM With: Address: When: Patient is currenct with [facility]. In the event that this physician does [...] [facility], [address], [place] [phone], [phone] albuterol (Albuterol (Eqv-Ventolin HFA) 90 mcg/inh inhalation [...] [facility], [address] [facility] [place], [place] [id number], [phone] START: ferrous sulfate (ferrous sulfate 325 mg Tab) 1 Tablets By Mouth every day. Refills: 0. Last Dose: Next Dose: STOP: ferrous sulfate (ferrous sulfate 325 mg Tab) 1 Tablets By Mouth Tuesday. Other Medications START: acetaminophen (acetaminophen 325 mg Tab) 2 Tablets By Mouth every 6 hours as needed Pain. (more content not included)... Normal [facility] Inpatient Patient Summary Inpatient Patient Summary [address] [address] Patient Discharge Instructions PERSON INFORMATION [...] Follow up: With: Address: When: Brian[facility] [address], [address] [phone] Business (1) Within 5 to 7 days With: Address: When: [facility] [place] [address] Business (1) Within 5 to 7 days With: Address: When: Follow up with your primary cardiology team as soon as possible With: Address: When: HARPAL HAYES [address] [place], [place] [phone] Business (1) 04/12/2024 11:30 AM With: Address: When: Patient is currenct with [facility]. In the event that this physician does [...] [facility], [address], [place] [id number], [phone] albuterol (Albuterol (Eqv-Ventolin HFA) 90 mcg/inh inhalation [...] [facility], [address] [facility] [place] [id number], [phone] START: ferrous sulfate (ferrous sulfate 325 mg [...] STOP: acetaminophen (more content not included)... Normal [facility] Inpatient Patient Summary Inpatient Patient Summary [place] [address] Patient Discharge Instructions PERSON INFORMATION Name: NADIA [...] Follow up: With: Address: When: HARPAL HAYES [address] [place] [address] [facility] (1) 04/12/2024 11:30 AM With: Address: When: Patient is currenct with [facility]. In the event that this physician does [...] hours. Last Dose: Next Dose: acetaminophen-hydroc odone (Milford 325 mg-5 mg oral tablet) 1 Tablets [...] Dose: n (more content not included)... Normal [facility] Interdisciplinary Note - [place] e Manageron 04-06-2024 Interdisciplinary Note - Clean Room Assembler Interdisciplinary Note - Clean Room Assembler CRM to room 306 Patient is awake, alert and oriented. Patient verified PCP, DME and insurance. Patient is from home with her Spouse. [place]. Patient is an inpatient. She completed IMM 04/04 and this gets reviewed. Patient is here for fever, PNA. Patient is assigned to [facility] SENIOR SPEECH PATHOLOGIST, see notes. Per patient she has a walker at home. She is current with [facility]. She declined any needs for further DME or SNF stay. PT/OT recs SNF with expected improvement. Patient was weaned to RA. Patient continues to decline SNF stay. Patient was provided CRM contact, white board updated. CRM following CRM will get updates from [facility] SENIOR SPEECH PATHOLOGIST at 10 AM Today therapy [facility] care Lilian called and was provided an update. [facility] will be informed she is here and would like to meet with her I was updated that patient might DC home today now and f/u with GI as an OP Normal [facility] Comment on above: Result Comment: Elec tronically Signed By: Rosalinda Vogel\.br\Date and Time Signed: 04/06/24 13:33 EDT Interdisciplinary Note - Clean Room Assembler Interdisciplinary Note - Clean Room Assembler CRM to room 306 Patient is awake, alert and oriented. Patient verified PCP, DME and insurance. Patient is from home with her Spouse. She [place] a ride [place]. Patient is an inpatient. She completed IMM 04/04 and this gets reviewed. Patient is here for fever, PNA. Patient is assigned to [facility] SENIOR SPEECH PATHOLOGIST, see notes. Per patient she has a walker at home. She is current with [facility]. She declined any needs for further DME or SNF stay. PT/OT recs SNF with expected improvement. Patient was weaned to RA. Patient continues to decline SNF stay. Patient was provided CRM contact, white board updated. CRM following CRM will get updates from [facility] GRAHAM at 10 AM Today therapy recs care [facility] Comment on above: Result Comment: Elec tronically Signed By: Rosalinda Vogel\.br\Date and Time Signed: 04/06/24 10:37 EDT Interdisciplinary Note - Clean Room Assembler Interdisciplinary Note - Clean Room Assembler CRM to room 306 Patient is awake, alert and oriented. Patient verified PCP, DME and insurance. Patient is from home with her Spouse. She [place] a ride [place]. Patient is an inpatient. She completed [facility] 04/04 and this gets reviewed. Patient is here for fever, PNA. Patient is assigned to [facility] SENIOR SPEECH PATHOLOGIST, see notes. Per patient she has a walker at home. She is current with [facility]. She declined any needs for further DME or SNF stay. PT/OT recs SNF with expected improvement. Patient was weaned to RA. Patient continues to decline SNF stay. Patient was provided CRM contact, white board updated. CRM following CRM will get updates from [facility] GRAHAM at 10 AM [facility] Comment on above: Result Comment: Elec tronically Signed By: Rosalinda Vogel\.br\Date and Time Signed: 04/06/24 09:12 EDT MICRO OTHER TESTSOrdered By: Angie Skinner on 04-06-2024 Occult blood panel (Stl) Positive *ABN* (04/06/24 4:27 AM) Invalid Interpretation Code Negative [facility] Man Sero MRSA Screenon 04-06-2024 MRSA DNA [...] This test was performed at: [facility], [address] [place] [address], [address]- , [place], Normal [facility] Comment on above: Performed By: #### 1 [id number] #### [facility] [address] [place] [id number] Procalcitoninon 04-06-2024 Procalcitonin 11.39 ng/mL High .00-.50 [facility] Comment on above: Result Comment: <0.5 ng/mL [...] to 24 hours. Performed By: #### 2 [id number] #### [facility] [address] [place] [id number] Stl Oclt Bldon 04-06-2024 Occult blood panel (Stl) Positive Abnormal Negative [facility] Comment on above: Performed By: #### 2 [id number] #### [facility] [address] [place] [id number] U Legi Agon 04-06-2024 L. pneumophila 1 Ag IA Ql (U) Negative Invalid Interpretation Code Negative [facility] Comment on above: Result Comment: Pres umptive negative for L. pneumophila serogroup 1 antigen in urine, suggesting no recent or current infection. Legionnaires' disease cannot be ruled out since other serogroups and species may also cause disease. Performed at: [address] [id number] MD Geovanny Chapman Performed By: #### 2 [id number] #### [facility] [address] [place] [address] eGFRon 04-06-2024 eGFR 38 mL/min/1.73 m2 Low >=59 [facility] Comment on above: Performed By: #### 1 [id number] #### [facility] [address] [place] [address] BMPon 04-05-2024 Anion gap [Moles/Vol] 10 mmol/L Normal 6-16 [facility] Comment on above: Performed By: #### 2 [id number] #### [facility] [address] [place] [address] Calcium [Mass/Vol] 8.4 mg/dL Low 8.9-11.1 [facility] Comment on above: Performed By: #### 2 [id number] #### [facility] [address] [place] [address] Chloride [Moles/Vol] 103 mmol/L Normal 101-111 [facility] Comment on above: Performed By: #### 2 [id number] #### [facility] [address] [place] [address] CO2 [Moles/Vol] 30 mmol/L Normal 21-31 [facility] Comment on above: Performed By: #### 2 [id number] #### [facility] [address] [place] [address] Creatinine [Mass/Vol] 1.6 mg/dL High 0.5-1.3 [facility] Comment on above: Performed By: #### 2 [id number] #### [facility] [address] [place] [address] Glucose [Mass/Vol] 133 mg/dL Normal 55-199 [facility] Comment on above: Performed By: #### 2 [id number] #### [facility] [address] [place] [address] Potassium [Moles/Vol] 3.5 mmol/L Normal 3.5-5.3 [facility] Comment on above: Performed By: #### 2 [id number] #### [facility] [address] [place] [address] Sodium [Moles/Vol] 139 mmol/L Normal 135-145 [facility] Comment on above: Performed By: #### 2 [id number] #### [facility] [address] [place] [address] Urea nitrogen [Mass/Vol] 21 mg/dL Normal 5-21 [facility] Comment on above: Performed By: #### 2 [id number] #### [facility] [address] [place] [address] Urea nitrogen/Creatinine [Mass ratio] 13 No Units Normal 10-20 [facility] Comment on above: Performed By: #### 2 [id number] #### [facility] [address] [place] [address] CBC w/ Auto Diffon 4 Basophils/100 WBC (Bld) 0.9 % Normal 0.0-2.0 [facility] Comment on above: Performed By: #### 2 [id number] #### [facility] [address] [place] [address] Basophils/Leukocytes Auto (Bld) [Pure # fraction] 0.1 E9/L Normal 0.0-0.2 [facility] Comment on above: Performed By: #### 2 335486 #### [facility] [address] [place] [address] Eosinophils (Bld) [#/Vol] 0.3 E9/L Normal 0.0-0.5 [facility] Comment on above: Performed By: #### 2 779128 #### [facility] [address] [place] [address] Eosinophils/100 WBC (Bld) 6.1 % Normal 0.0-8.0 [facility] Comment on above: Performed By: #### 2 114950 #### [facility] [address] [place] [address] Erythrocyte distribution width (RBC) [Ratio] 14.7 % High 10.9-14.2 [facility] Comment on above: Performed By: #### 2 013851 #### [facility] [address] [place] [address] Hematocrit (Bld) [Volume fraction] 28.2 % Low 34.0-46.0 [facility] Comment on above: Performed By: #### 2 [id number] #### [facility] [address] [place] [address] Hemoglobin (Bld) [Mass/Vol] 9.6 g/dL Low 12.0-16.0 [facility] Comment on above: Performed By: #### 2 336881 #### [facility] [address] [place] [address] Lymphocytes (Bld) [#/Vol] 1.5 E9/L Normal 1.0-4.0 [facility] Comment on above: Performed By: #### 2 995399 #### [facility] [address] [place] [address] Lymphocytes/100 WBC (Bld) 26.6 % Normal 14.0-50.0 [facility] Comment on above: Performed By: #### 2 379236 #### [facility] [address] [place] [address] MCH (RBC) [Entitic mass] 31.1 pg Normal 27.0-34.0 [facility] Comment on above: Performed By: #### 2 574741 #### [facility] [address] [place] [address] MCHC (RBC) [Mass/Vol] 34.2 g/dL Normal 31.4-36.0 [facility] Comment on above: Performed By: #### 2 764212 #### [facility] [address] [place] [address] MCV (RBC) [Entitic vol] 91.1 fL Normal 80.0-100.0 [facility] Comment on above: Performed By: #### 2 [id number] #### [facility] [address] [place] [address] Monocytes (Bld) [#/Vol] 0.5 E9/L Normal 0.2-1.0 [facility] Comment on above: Performed By: #### 2 206369 #### [facility] [address] [place] [address] Neutrophils (Bld) [#/Vol] 3.3 E9/L Normal 2.0-7.5 [facility] Comment on above: Performed By: #### 2 147476 #### [facility] [address] [place] [address] Neutrophils/100 WBC (Bld) 58.3 % Normal 36.0-75.0 [facility] Comment on above: Performed By: #### 2 541723 #### [facility] [address] [place] [address] Platelet 203.0 E9/L Normal 150.0-500.0 [facility] Comment on above: Performed By: #### 2 545267 #### [facility] [address] [place] [address] Platelet mean volume (Bld) [Entitic vol] 7.5 fL Normal 6.4-10.8 [facility] Comment on above: Performed By: #### 2 363541 #### [facility] [address] [place] [address] RBC (Bld) [#/Vol] 3.1 E12/L Low 4.3-5.9 [facility] Comment on above: Performed By: #### 2 189359 #### [facility] [address] [place] [address] WBC corrected for nucl RBC Auto (Bld) [#/Vol] 5.7 E9/L Normal 4.0-11.0 [facility] Comment on above: Performed By: #### 2 [id number] #### [facility] [address] [place] [address] CHEMISTRYOrdered By: SYSTEM SYSTEM on 04-05-2024 Anion [...] - 20 Remisol Chem Capillary Glucose [facility] 03-08 Glucose [Mass/Vol] 218 mg/dL High 55-99 [facility] Comment on above: Result Comment: Michelle PACHECO Performed By: #### 2 [id number] #### [facility] [address] [place] [address] Glucose [Mass/Vol] 139 mg/dL High 55-99 [facility] Comment on above: Result Comment: Michelle PACHECO Performed By: #### 2 [id number] #### [facility] [address] [place] [address] Glucose [Mass/Vol] 198 mg/dL High 55-99 [facility] Comment on above: Result Comment: Michelle PACHECO Performed By: #### 2 [id number] #### [facility] [address] [place] [address] Glucose [Mass/Vol] 139 mg/dL High 55-99 [facility] Comment on above: Result Comment: Michelle PACHECO Performed By: #### 2 [id number] #### [facility] [address] [place] [address] HEMATOLOGYOrdered By: SYSTEM SYSTEM on 04-05-2024 Basophils/100 [...] [place] e Manageron 04-05-2024 Interdisciplinary Note - Clean Room Assembler Interdisciplinary Note - Clean Room Assembler CRM to room 306 Patient is awake, alert and oriented. Patient verified PCP, DME and insurance. Patient is from home with her Spouse. She [place] a ride at [place]. Patient is an inpatient. She completed IMM 04/04. Patient is here for fever, PNA. Patient is assigned to [facility], see notes. Per patient she has a walker at home. She is current with [facility] care. She declined any needs for further DME or SNF stay. She is pending PT/OT. Patient was provided CRM contact, rickie board updated. CRM following CRM will get updates from [facility] at 10 AM Patient is on [place] oxygen, she does not wear at home and would need desat or weaned before DC Normal [facility] Comment on above: Result Comment: Elec tronically Signed By: Rosalinda Vogel\.br\Date and Time Signed: 04/05/24 09:15 EDT Interdisciplinary Note - José n 04-05-2024 Interdisciplinary Note - OT Interdisciplinary Note - OT Ot [facility] six clicks score = SNF vs HH services. patient requires Min A w/ standing adls/transfers and mod vc for safety w/ transfer mechanics and OT cord safety. Inpatient OT services to follow daily as pt was modified Ind w/ basic adls/transfers/stand ing adls prior to illness. Normal [facility] Interdisciplinary Note - Soc ial Workeron 04-05-2024 Interdisciplinary Note - Soil Conservation Technician Interdisciplinary Note - Soil Conservation Technician This SW met with patient, her , and her daughter Irma today to assist patient with completing a POA. She named Irma as her primary agent, with her as the first alternate. She did not wish to complete a LW at this time. SW will remain available. Normal [facility] - Microbiology an d Antimicrobial susceptibilityOrdered By: Jasmin Desai on 04-05-2024 Bacteria identified Respiratory culture Nom (Sput) Scant growth of Normal upper respiratory kaity isolated [facility] Magnesiumon 04-05-2024 Magnesium [Mass/Vol] 1.6 mg/dL Normal 1.3-2.4 [facility] Comment on above: Performed By: #### 2 [id number] #### [facility] [address] [place] [address] No Panel InformationOrdered By: Jasmin Desai on 04-05-2024 GS 2+ epithelial cells Occasional White Blood Cells Occasional Gram Positive Cocci [facility] Procalcitoninon 04-05-2024 Procalcitonin 19.19 ng/mL High .00-.50 [facility] Comment on above: Result Comment: <0.5 ng/mL [...] to 24 hours. Performed By: #### 2 [id number] #### [facility] [address] [place] [address] eGFRon 04-05-2024 eGFR 32 mL/min/1.73 m2 Low >=59 [facility] Comment on above: Performed By: #### 1 [id number] #### [facility] [address] [place] [address] BNPon 04-04-2024 Natriuretic peptide B (Bld) [Mass/Vol] 161 pg/mL High 5-80 [facility] Comment on above: Performed By: #### 1 [id number] #### [facility] [address] [place] [address] CBC w/ Auto Diffon RBC size Nom (Bld) NORMAL Invalid Interpretation Code [facility] Comment on above: Performed By: #### 2 [id number] #### [facility] [address] [place] [address] Basophils/100 WBC (Bld) 0.3 % Normal 0.0-2.0 [facility] Comment on above: Performed By: #### 2 [id number] #### [facility] [address] [place] [address] Basophils/Leukocytes Auto (Bld) [Pure # fraction] 0.0 E9/L Normal 0.0-0.2 [facility] Comment on above: Performed By: #### 2 584146 #### [facility] [address] [place] [address] Eosinophils (Bld) [#/Vol] 0.1 E9/L Normal 0.0-0.5 [facility] Comment on above: Performed By: #### 2 804238 #### [facility] [address] [place] [address] Eosinophils/100 WBC (Bld) 0.7 % Normal 0.0-8.0 [facility] Comment on above: Performed By: #### 2 939606 #### [facility] [address] [place] [address] Erythrocyte distribution width (RBC) [Ratio] 14.9 % High 10.9-14.2 [facility] Comment on above: Performed By: #### 2 117509 #### [facility] [address] [place] [address] Hematocrit (Bld) [Volume fraction] 34.7 % Normal 34.0-46.0 [facility] Comment on above: Performed By: #### 2 526112 #### [facility] [address] [place] [address] Hemoglobin (Bld) [Mass/Vol] 11.8 g/dL Low 12.0-16.0 [facility] Comment on above: Performed By: #### 2 248569 #### [facility] [address] [place] [address] Lymphocytes (Bld) [#/Vol] 0.4 E9/L Low 1.0-4.0 [facility] Comment on above: Performed By: #### 2 617366 #### [facility] [address] [place] [address] Lymphocytes/100 WBC (Bld) 4.7 % Low 14.0-50.0 [facility] Comment on above: Performed By: #### 2 109719 #### [facility] [address] [place] [address] MCH (RBC) [Entitic mass] 30.9 pg Normal 27.0-34.0 [facility] Comment on above: Performed By: #### 2 768147 #### [facility] [address] [place] [address] MCHC (RBC) [Mass/Vol] 33.9 g/dL Normal 31.4-36.0 [facility] Comment on above: Performed By: #### 2 353670 #### [facility] [address] [place] [address] MCV (RBC) [Entitic vol] 91.1 fL Normal 80.0-100.0 [facility] Comment on above: Performed By: #### 2 012955 #### [facility] [address] [place] [address] Monocytes (Bld) [#/Vol] 0.2 E9/L Normal 0.2-1.0 [facility] Comment on above: Performed By: #### 2 789723 #### [facility] [address] [place] [address] Neutrophils (Bld) [#/Vol] 7.5 E9/L Normal 2.0-7.5 [facility] Comment on above: Performed By: #### 2 408434 #### [facility] [address] [place] [address] Neutrophils/100 WBC (Bld) 91.7 % High 36.0-75.0 [facility] Comment on above: Performed By: #### 2 689697 #### [facility] [address] [place] [address] Platelet mean volume (Bld) [Entitic vol] 7.0 fL Normal 6.4-10.8 [facility] Comment on above: Performed By: #### 2 769002 #### [facility] [address] [place] [address] Platelets (Bld) [#/Vol] 224.0 E9/L Normal 150.0-500.0 [facility] Comment on above: Performed By: #### 2 530369 #### [facility] [address] [place] [address] RBC (Bld) [#/Vol] 3.8 E12/L Low 4.3-5.9 [facility] Comment on above: Performed By: #### 2 472652 #### [facility] [address] [place] [address] WBC corrected for nucl RBC Auto (Bld) [#/Vol] 8.2 E9/L Normal 4.0-11.0 [facility] Comment on above: Performed By: #### 2 [id number] #### [facility] [address] [place] [address] CHEMISTRYOrdered By: SYSTEM SYSTEM on 04-04-2024 Troponin [...] High Sensitivity Troponin I Instructions For Use, [facility], January 2018) Procalcitonin 16.47 ng/mL High 0.00 [...] conjunction with clinical conditions of myocardial infarction. ([facility] [place] High Sensitivity Troponin I Instructions For Use, [facility], January 2018) Troponin HS 65.10 pg/mL Invalid [...] High Sensitivity Troponin I Instructions For Use, [facility], January 2018) Albumin [Mass/Vol] 4.0 g/dL Normal [...] 161 pg/mL High 5 - 80 pg/mL [facility] Albumin [Mass/Vol] 4.0 g/dL Normal 3.3-5.0 [facility] Comment on above: Performed By: #### 2 [id number] #### [facility] [address] [place] [address] Albumin/Globulin (S) [Mass conc ratio] 1.3 Normal 1.1-2.2 [facility] Comment on above: Performed By: #### 2 738084 #### [facility] [address] [place] [address] ALP [Catalytic activity/Vol] 98 Int._Unit/L Normal 21-98 [facility] Comment on above: Performed By: #### 2 557237 #### [facility] [address] [place] [address] ALT No additional P-5'-P [Catalytic activity/Vol] 9 Int._Unit/L Normal 6-46 [facility] Comment on above: Performed By: #### 2 [id number] #### [facility] [address] [place] [address] Anion gap [Moles/Vol] 14 mmol/L Normal 6-16 [facility] Comment on above: Performed By: #### 2 953954 #### [facility] [address] [place] [address] AST [Catalytic activity/Vol] 18 Int._Unit/L Normal 5-43 [facility] Comment on above: Performed By: #### 2 783242 #### [facility] [address] [place] [address] Bilirubin [Mass/Vol] 0.7 mg/dL Normal 0.0-1.1 [facility] Comment on above: Performed By: #### 2 472360 #### [facility] [address] [place] [address] Calcium [Mass/Vol] 9.3 mg/dL Normal 8.9-11.1 [facility] Comment on above: Performed By: #### 2 614410 #### [facility] [address] [place] [address] Chloride [Moles/Vol] 100 mmol/L Low 101-111 [facility] Comment on above: Performed By: #### 2 186332 #### [facility] [address] [place] [address] CO2 [Moles/Vol] 28 mmol/L Normal 21-31 [facility] Comment on above: Performed By: #### 2 [id number] #### [facility] [address] [place] [address] Creatinine [Mass/Vol] 1.9 mg/dL High 0.5-1.3 [facility] Comment on above: Performed By: #### 2 [id number] #### [facility] [address] [place] [address] Globulin (S) [Mass/Vol] 3.1 g/dL Normal 1.4-4.0 [facility] Comment on above: Performed By: #### 2 140272 #### [facility] [address] [place] [address] Glucose [Mass/Vol] 232 mg/dL High 55-199 [facility] Comment on above: Performed By: #### 2 [id number] #### [facility] [address] [place] [address] Potassium [Moles/Vol] 3.7 mmol/L Normal 3.5-5.3 [facility] Comment on above: Performed By: #### 2 065671 #### [facility] [address] [place] [address] Protein [Mass/Vol] 7.1 g/dL Normal 6.0-7.8 [facility] Comment on above: Performed By: #### 2 [id number] #### [facility] [address] [place] [address] Sodium [Moles/Vol] 138 mmol/L Normal 135-145 [facility] Comment on above: Performed By: #### 2 060793 #### [facility] [address] [place] [address] Urea nitrogen [Mass/Vol] 24 mg/dL High 5-21 [facility] Comment on above: Performed By: #### 2 [id number] #### [facility] [address] [place] [address] Urea nitrogen/Creatinine [Mass ratio] 13 No Units Normal 10-20 [facility] Comment on above: Performed By: #### 2 534321 #### [facility] [address] [place] [address] COAGULATIONOrdered By: Damion Grigsby on 04-04-2024 aPTT Coag (PPP) [Time] 36.3 s Normal 25.1 - 36.5 second(s) [facility] Auto Coag Comment on above: Interpretive Data: [...] the same coagulation reagent and instrumentation as [facility]. Currently there are no coagulation studies available worldwide for children to 14 days, and no normal ranges. Heparin therapeutic range (represented by Anti-Factor Xa activity of 0.2 - 0.4 U/mL) corresponds to PTT of 56.6 - 109.0 sec. INR Coag (PPP) [Relative time] 1.09 {INR} Invalid Interpretation Code [facility] Auto Coag Comment on above: Interpretive Data: I NR results are specifically intended to assess patients stabilized on long-term Anticoagulation therapy suggested INR s Less Intensive Anticoagulation 2.0 3.0 Conventional Range 3.0 4.5 PT Coag (PPP) [Time] 12.2 s Normal 9.4 - 1 2.5 second(s) [facility] Auto Coag Comment on above: Interpretive Data: [...] the same coagulation reagent and instrumentation as [facility]. Currently there are no coagulation studies available [...] amount in ml's: 0 Normal [facility] CT Chest w/o Contraston 10-3 CT [...] MD Transcribed by: SHALOM Technologist: RUTH Normal [facility] Capillary Glucose POCon - Glucose [Mass/Vol] 158 mg/dL High 55-99 [facility] Comment on above: Result Comment: Michelle PACHECO Performed By: #### 2 [id number] #### [facility] [address] [place] [address] Glucose [Mass/Vol] 128 mg/dL High 55-99 [facility] Comment on above: Result Comment: Michelle PACHECO Performed By: #### 2 [id number] #### [facility] [address] [place] [address] Glucose [Mass/Vol] 100 mg/dL High 55-99 [facility] Comment on above: Result Comment: Michelle PACHECO Performed By: #### 2 [id number] #### [facility] [address] [place] [address] Glucose [Mass/Vol] 154 mg/dL High 55-99 [facility] Comment on above: Result Comment: Michelle PACHECO Performed By: #### 2 [id number] #### [facility] [address] [place] [address] Glucose [Mass/Vol] 230 mg/dL High 55-99 [facility] Comment on above: Result Comment: Michelle erickson RN/MD Performed By: #### 2 [id number] #### [facility] [address] [place] [address] ED Clinical Summaryon 2023 ED Clinical Summary ED Clinical Summary [address] [address] ED Clinical Summary Person Information Name: NADIA PATTERSON Swapna[facility] Age: 78 Years : 1945 Sex: Female Language: Hungarian PCP: HARPAL HAYES MD Marital Status: Phone: [phone] Visit Id: Visit Reason: Respiratory problem; Cough; Shortness of breath; fever Speciality: Acuity: 1 Enc Type: Inpatient Med Service: Medical Arrival: 04/04/2024 00:25:34 Discharge: LOS: 000 02:51 Checkin: 04/04/2024 00:25:34 Checkout: 04/04/2024 03:16:58 Dispo Type: Admitted as IP to this [facility] EVENTS: Event Name Event Status [...] Labs Inlab 04/04/2024 03:05:34 04/04/2024 03:05:34 ADDRESS: [address] [place] [id number] [facility] DOC NOTES: MEDICAL INFORMATION: Prescriptions Given: [...] mg sublingu (more content not included)... Normal [facility] ED Note-Physicianon 04-04-20 ED Note-Physician ED Note-Physician [...] and Complexity of Problems Differential Diagnosis: [] [facility] Data External documents reviewed: [] My [...] Therapy PT & PTT Rapid COVID Antigen ([facility]) Sputum Culture Troponin Troponin 1 Hr. Troponin 3 Hr. UA with Cult Rflx XR Chest Single View Medications Administered Given GenDil 100 mL + [id number] [F] 1000 mg, IV Piggyback NS 500 ml Bolus, 500 mL, IV Sodium Chloride 0.9% intravenous solution 50 mL + ceftriaxone additive 1000 mg, IV Piggyback Disposition Plan Patient Discharge Condition Fair Discharge Disposition Admitted Discharge Prescription List Prescriptions No active prescription medications Follow-up No qualifying data available Problem List/Past Medical History Ongoing Cerebrovascular s (more content not included)... Normal [facility] Comment on above: Result Comment: Elec tronically Signed By: Terry Delvalle DO\.olaf\Date and Time Signed: 04/04/24 02:18 EDT ED Patient Education Noteon 04-04-2024 ED Patient Education Note ED Patient Education Note Normal [facility] ED Patient Summaryon 024 ED Patient Summary ED Patient Summary [place] [id number] Patient Discharge Instructions Person Information Name: NADIA [...] Information Primary Provider: Terry Delvalle DO Advanced Mid Wife:None The exam and treatment you received in the Emergency Department were for an urgent problem and are not intended as complete care. It is important that you follow up with a doctor, nurse practitioner, or physician???s paperhanger assistant for ongoing care. If your symptoms [...] opioids can be used to help relieve wvcolkly-mh-ccberr pain and are often prescribed following a [...] of opioids (more content not included)... Normal [facility] EMS Documentationon 04-04-20 EMS Documentation Report Please click on link to see report Normal [facility] Comment on above: Result Comment: Miss irwin Attachment - attachment exceeds size limitation [id number] Can be viewed in source system Extra Ronald 04-04-2024 WB Tube Collected Yes Invalid Interpretation Code [facility] Comment on above: Performed By: #### 1 [id number] #### [facility] [address] [place] [address] Ferritinon 04-04-2024 Ferritin [Mass/Vol] 58 ng/mL Normal 11-307 [facility] Comment on above: Performed By: #### 2 [id number] #### [facility] [address] [place] [address] Folateon 04-04-2024 Folate [Mass/Vol] 6.3 ng/mL Low >=6.7 [facility] Comment on above: Performed By: #### 2 [id number] #### [facility] [address] [place] [address] HEMATOLOGYOrdered By: SYSTEM SYSTEM on 04-04-2024 Basophils/100 [...] 4 Influenzae A Ag Negative Normal Negative [facility] Comment on above: Performed By: #### 1 [id number] #### [facility] [address] [place] [address] Influenzae B Ag Negative Normal Negative [facility] Comment on above: Result Comment: Test sensitivity and specificity vary for age group, specimen type, antigen types, and prevalence of disease. Test results must be evaluated in conjunction with other clinical data available to the physician. Individuals who received nasally administered Influenza A vaccine may have positive test results up to 3 days after vaccination. Performed By: #### 1 [id number] #### [facility] [address] [place] [address] Interdisciplinary Note - [place] e Manageron 04-04-2024 Interdisciplinary Note - Clean Room Assembler Interdisciplinary Note - Clean Room Assembler CRM to room 306 Patient is awake, alert and oriented. Patient verified PCP, DME and insurance. Patient is from home with her Spouse. She [place] a ride at [place]. Patient is an inpatient. She completed IMM 04/04. Patient is here for fever, PNA. Patient is assigned to [facility] SENIOR SPEECH PATHOLOGIST, see notes. Per patient she has a walker at home. She is current with [facility]. She declined any needs for further DME or SNF stay. Patient was provided CRM contact, rickie board updated. CRM following CRM will get updates from [facility] SENIOR SPEECH PATHOLOGIST at 10 AM Normal [facility] Comment on above: Result Comment: Elec tronically Signed By: Rosalinda Vogel\.br\Date and Time Signed: 04/04/24 10:24 EDT Ironon 04-04-2024 Iron [Mass/Vol] 19 microgram/dL Low 35-153 [facility] Comment on above: Performed By: #### 2 [id number] #### [facility] [address] [place] [address] LDHon 04-04-2024 LDH 318 Int._Unit/L High 93-218 [facility] Comment on above: Performed By: #### 2 [id number] #### [facility] [address] [place] [address] Laboratory - Microbiology an d Antimicrobial susceptibilityOrdered By: Jasmin Desai on 04-04-2024 Bacteria identified Cx Nom (U) 200 cfu/ml Mixed skin contaminants [facility] MRSA DNA DIETER+probe Ql (Unsp spec) MRSA Negative. [facility] Lactic Acidon 04-04-2024 Lactic Acid Lvl 2.1 mmol/L Normal 0.5-2.2 [facility] Comment on above: Performed By: #### 2 [id number] #### [facility] [address] [place] [address] Lactic Acid Lvl 2.7 mmol/L High 0.5-2.2 [facility] Comment on above: Performed By: #### 2 [id number] #### [facility] [address] [place] [address] MICRO OTHER TESTSOrdered By: Damion Grigsby on 04-04-2024 Influenzae A Ag Negative (04/04/24 1:00 AM) Normal Negative [facility] Man Sero Influenzae B Ag Negative 2 (04/04/24 1:00 AM) Normal Negative [facility] Comment on above: Interpretive Data: [...] NEG Ctl Pass (04/04/24 1:00 AM) Normal [facility] Man Sero Rapid COV Int POS Ctl Pass (04/04/24 1:00 AM) Normal [facility] Man Sero SARS-CoV+SARS-CoV-2 (COVID-19) Ag IA.rapid Ql (Resp) Not Detected 18 (04/04/24 1:00 AM) Normal Not Detected [facility] Comment on above: Interpretive Data: T he TRA Veritor System for Rapid Detection of SARS-CoV-2 [...] ys. Final to follow at 7 days. [facility] PT & PTTon 04-04-2024 aPTT Coag (PPP) [Time] 36.3 second(s) Normal 25.1-36.5 [facility] Comment on above: Result [...] the same coagulation reagent and instrumentation as [facility]. Currently there are no coagulation studies available worldwide for children to 14 days, and no normal ranges. Heparin therapeutic range (represented by Anti-Factor Xa activity of 0.2 - 0.4 U/mL) corresponds to PTT of 56.6 - 109.0 sec. Performed By: #### 1 [id number] #### [facility] [address] [place] [address] INR Coag (PPP) [Relative time] 1.09 {INR} Invalid Interpretation Code [facility] Comment on above: Result Comment: INR results are specifically intended to assess patients stabilized on long-term Anticoagulation therapy suggested INR???s ???Less Intensive Anticoagulation??? 2.0 ??? 3.0 Conventional Range 3.0 ??? 4.5 Performed By: #### 1 [id number] #### [facility] [address] [place] [address] PT Coag (PPP) [Time] 12.2 second(s) Normal 9.4-12.5 [facility] Comment on above: Result [...] the same coagulation reagent and instrumentation as [facility]. Currently there are no coagulation studies available worldwide for children to 14 days, and no normal ranges. Performed By: #### 1 [id number] #### [facility] [address] [place] [address] Procalcitoninon 04-04-2024 Procalcitonin 16.47 ng/mL High .00-.50 [facility] Comment on above: Result Comment: <0.5 ng/mL [...] to 24 hours. Performed By: #### 2 [id number] #### [facility] [address] [place] [address] Procalcitonin 6.29 ng/mL High .00-.50 [facility] Comment on above: Result Comment: <0.5 [...] to 24 hours. Performed By: #### 2 [id number] #### [facility] [address] [place] [address] Rapid COVID Antigen ([facility])on 04-04-2024 Rapid COV Int NEG Ctl Pass Normal [facility] Comment on above: Performed By: #### 2 [id number] #### [facility] [address] [place] [address] Rapid COV Int POS Ctl Pass Normal [facility] Comment on above: Performed By: #### 2 [id number] #### [facility] [address] [place] [address] SARS-CoV+SARS-CoV-2 (COVID-19) Ag IA.rapid Ql (Resp) Not detected Normal Not Detected [facility] Comment on above: Result Comment: The TRA Veritor??? System for Rapid Detection of SARS-CoV-2 [...] other viruses or pathogens; and, in the [facility], this test is only authorized for the duration of the declaration that circumstances exist justifying the authorization of emergency use of in vitro diagnostics for detection and/or diagnosis of the virus that causes COVID-19 under Section 564(b)(1) of the Act, 21 U.S.C. ??? 360bbb-3(b)(1), unless the authorization is terminated or revoked sooner. Performed By: #### 2 [id number] #### [facility] [address] [place] [address] Reference Laboratory Testing Ordered By: [facility] DomainUser on 04-04-2024 L. pneumophila 1 Ag IA Ql (U) Negative Invalid Interpretation Code Negative [facility] [employer] Comment on above: Result Comment: Pres umptive negative for L. pneumophila serogroup 1 antigen in urine, suggesting no recent or current infection. Legionnaires' disease cannot be ruled out since other serogroups and species may also cause disease. Performed at: [facility] [id number] MD Geovanny Chapman Respiratory Panel by PCRon Adenovirus DNA DIETER+non-probe Ql (Nph) Not detected Normal [facility] Comment on above: Result Comment: Test ing was performed using nucleic acid amplification including Influenza A, Influenza A H1, Influenza A H3, Influenza B, RSV A, RSV B, Adenovirus, Human Metapneumovirus, Parainfluenza 1,2,3, and 4, Rhinovirus, Bordetella parapertussis/bronchiseptica, Bordetella holmesii, and Bordetella pertussis. Performed By: #### 1 [id number] #### [facility] [address] [place] [address] B. parapertussis DNA DIETER+probe Ql (Upper resp) Not detected Normal Not Detected [facility] Comment on above: Performed By: #### 1 [id number] #### [facility] [address] [place] [address] B. pertussis DNA DIETER+probe Ql (Upper resp) Not detected Normal Not Detected [facility] Comment on above: Performed By: #### 1 [id number] #### [facility] [address] [place] [address] FLUAV H1 RNA DIETER+non-probe Ql (Nph) Not detected Normal [facility] Comment on above: Performed By: #### 1 [id number] #### [facility] [address] [place] [address] FLUAV H3 RNA DIETER+non-probe Ql (Nph) Not detected Normal [facility] Comment on above: Performed By: #### 1 [id number] #### [facility] [address] [place] [address] FLUAV RNA DIETER+non-probe Ql (Nph) Not detected Normal [facility] Comment on above: Performed By: #### 1 [id number] #### [facility] [address] [place] [address] FLUBV RNA DIETER+non-probe Ql (Nph) Not detected Normal [facility] Comment on above: Performed By: #### 1 [id number] #### [facility] [address] [place] [address] Human Metapneumovirus Not detected Normal [facility] Comment on above: Result Comment: This test result should be correlated with clinical presentations and medical history by a healthcare provider to determine its clinical significance. Performed By: #### 1 [id number] #### [facility] [address] [place] [address] Parainfluenza virus 1 RNA DIETER+non-probe Ql (Nph) Not detected Normal [facility] Comment on above: Performed By: #### 1 [id number] #### [facility] [address] [place] [address] Parainfluenza virus 2 RNA DIETER+non-probe Ql (Nph) Not detected Normal [facility] Comment on above: Performed By: #### 1 [id number] #### [facility] [address] [place] [address] Parainfluenza virus 3 RNA DIETER+non-probe Ql (Nph) Not detected Normal [facility] Comment on above: Performed By: #### 1 [id number] #### [facility] [address] [place] [address] Parainfluenza virus 4 RNA DIETER+non-probe Ql (Nph) Not detected Normal [facility] Comment on above: Performed By: #### 1 [id number] #### [facility] [address] [place] [address] Resp Panel Intrl QC [facility] Comment on above: Performed By: #### 1 [id number] #### [facility] [address] [place] [address] Rhinovirus+Enterovirus RNA DIETER+non-probe Ql (Nph) Not detected Normal [facility] Comment on above: Performed By: #### 1 [id number] #### [facility] [address] [place] [address] RSV RNA DIETER+non-probe Ql (Nph) Not detected Normal [facility] Comment on above: Performed By: #### 1 [id number] #### [facility] [address] [place] [address] Retic Counton 04-04-2024 Reticulocytes/100 RBC (Bld) 1.5 % Normal 0.5-2.2 [facility] Comment on above: Performed By: #### 2 [id number] #### [facility] [address] [place] [address] TIBC Calculatedon 04-04-2024 Iron binding capacity [Mass/Vol] 323 microgram/dL Normal 250-400 [facility] Comment on above: Performed By: #### 1 [id number] #### [facility] [address] [place] [address] Transferrin [Mass/Vol] 231 mg/dL Normal 200-370 [facility] Comment on above: Performed By: #### 1 [id number] #### [facility] [address] [place] [address] TSH With T4fr Reflexon 04-04 TSH Qn 2.22 m[IU]/L Normal 0.34-5.60 [facility] Comment on above: Performed By: #### 1 [id number] #### [facility] [address] [place] [address] Troponinon 04-04-2024 Troponin HS 43.00 pg/mL Abnormal .04-01. [facility] Comment on above: Result Comment: Crit [...] High Sensitivity Troponin I Instructions For Use, ListiaJanuary 2018) Performed By: #### 2 [id number] #### [facility] [address] [place] [address] Troponin 0 Hr.on 04-04-2024 Troponin HS 24.50 pg/mL Normal 10.10-27.10 [facility] Comment on above: Result Comment: The 95% CI (Confidence Interval) PPV (Positive Predictive Value) for myocardial infarction in females is 38 pg/mL, in males 51 pg/mL. The results should be used in conjunction with clinical conditions of myocardial infarction. ([place] [facility] [place] High Sensitivity Troponin I Instructions For Use, [employer], January 2018) Performed By: #### 1 [id number] #### [facility] [address] [place] [address] Troponin 1 Hr.on 04-04-2024 Troponin HS 65.10 pg/mL Abnormal 10.10-27.10 [facility] Comment on above: Result Comment: Crit ical Result Verified by Previous Result Critical Result I_TnIHS:65.1 Called to and read back by: MADAI MAE at: 04/04/2024 03:42 by:BAB The 95% CI (Confidence Interval) PPV (Positive Predictive Value) for myocardial infarction in females is 38 pg/mL, in males 51 pg/mL. The results should be used in conjunction with clinical conditions of myocardial infarction. ([place] [facility] [place] High Sensitivity Troponin I Instructions For Use, [employer], January 2018) Performed By: #### 1 [id number] #### [facility] [address] [place] [address] Troponin 3 Hr.on 04-04-2024 Troponin HS 67.80 pg/mL Abnormal 10.10-27.10 [facility] Comment on above: Result Comment: Crit [...] Cecilia, January 2018) Performed By: #### 1 [id number] #### [facility] [address] [place] [address] UA with Cult Rflxon 20 24 Bilirubin Ql (U) Negative Normal Negative [facility] Comment on above: Performed By: #### 4 [id number] #### [facility] [address] [place] [address] Clarity (U) Turbid Abnormal Clear [facility] Comment on above: Performed By: #### 4 [id number] #### [facility] [address] [place] [address] Color (U) Light-Yellow Normal Yellow [facility] Comment on above: Result Comment: Micr oscopic readings are only performed on those samples that meet specific criteria set forth by [facility]. Performed By: #### 4 [id number] #### [facility] [address] [place] [address] Epithelial cells.squamous Auto (Urine sed) [#/Area] 0-2 Invalid Interpretation Code [facility] Comment on above: Performed By: #### 4 [id number] #### [facility] [address] [place] [address] Glucose Ql (U) Negative Normal Negative [facility] Comment on above: Performed By: #### 4 [id number] #### [facility] [address] [place] [address] Hemoglobin Auto test strip (U) [Mass/Vol] Trace Abnormal Negative [facility] Comment on above: Performed By: #### 4 [id number] #### [facility] [address] [place] [address] Ketones Auto test strip Ql (U) Negative Normal Negative [facility] Comment on above: Performed By: #### 4 [id number] #### [facility] [address] [place] [address] Leukocyte esterase Auto test strip Ql (U) 500 Clint/uL Abnormal Negative [facility] Comment on above: Performed By: #### 4 [id number] #### [facility] [address] [place] [address] Mucus Auto Ql (U) Trace Normal Negative [facility] Comment on above: Performed By: #### 4 [id number] #### [facility] [address] [place] [address] Nitrite Auto test strip Ql (U) 1+ mg/dL Abnormal Negative [facility] Comment on above: Performed By: #### 4 [id number] #### [facility] [address] [place] [address] pH (U) 6.0 [pH] Invalid Interpretation Code 5.0-9.0 [facility] Comment on above: Performed By: #### 4 [id number] #### [facility] [address] [place] [address] Protein Ql (U) Trace Abnormal Negative [facility] Comment on above: Performed By: #### 4 [id number] #### [facility] [address] [place] [address] RBC Ql (U) 4-20 Abnormal 0-3 [facility] Comment on above: Performed By: #### 4 [id number] #### [facility] [address] [place] [address] Specific gravity (U) [Rel density] 1.018 Invalid Interpretation Code 1.005-1.030 [facility] Comment on above: Performed By: #### 4 [id number] #### [facility] [address] [place] [address] Urobilinogen (U) [Mass/Vol] Negative Normal Negative [facility] Comment on above: Performed By: #### 4 [id number] #### [facility] [address] [place] [address] WBC Auto (Urine sed) [#/Area] >75 Abnormal 0-5 [facility] Comment on above: Performed By: #### 4 [id number] #### [facility] [address] [place] [address] Type of Urine collection method Clean Catch Normal [facility] Comment on above: Performed By: #### 4 [id number] #### [facility] [address] [place] [address] URINALYSISOrdered By: Lee Ann forrest on 04-04-2024 [...] that meet specific criteria set forth by [facility]. Epithelial cells.squamous Auto (Urine sed) [#/Area] [...] Urobilinogen (U) [Mass/Vol] Negative Normal Negativemg/ dL [facility] UA Auto SS WBC Auto (Urine sed) [#/Area] >75 *ABN* (04/04/24 1:08 PM) Invalid Interpretation Code 0-5 [facility] UA Auto SS URINALYSISOrdered By: Mi Delvalle on 04-04-2024 UA Spec Desc Clean Catch (04/04/24 1:08 PM) Normal [facility] UA Auto SS Vit B12on 04-04-2024 Cobalamin (Vitamin B12) [Mass/Vol] 156 pg/mL Normal 50-1500 [facility] Comment on above: Performed By: #### 2 [id number] #### [facility] [address] [place] [address] XR Chest Single Viewon 04-04 XR Chest [...] mGy = na DAP = na Normal [facility] eGFRon 04-04-2024 eGFR 26 mL/min/1.73 m2 Low >=59 [facility] Comment on above: Performed By: #### 1 [id number] #### [facility] [address] [place] [address] Laboratory - Chemistry and C hemistry - challengeon 01-16-2024 Bilirubin Ql (U) Negative NEGATIVE [facility] Glucose (U) [Mass/Vol] Negative NEGATIVE [facility] Ketones Ql (U) Negative NEGATIVE [facility] pH (U) 6.5 [pH] 5.0-9.0 [facility] Specific gravity (U) [Rel density] 1.015 1.005-1.025 [facility] Urobilinogen Qn (U) 0.2 {Macie'U}/dL 0.2-1.0 [facility] Laboratory - Microbiology an d Antimicrobial susceptibilityon 01-16-2024 Bacteria identified Cx Nom (U) [facility] Laboratory - Specimen inform ationon 01-16-2024 Appearance (U) CLEAR CLEAR [facility] Color (U) LT. YELLOW YELLOW [facility] Laboratory - Urinalysison Leukocyte esterase Test strip Ql (U) TRACE Abnormal NEGATIVE [facility] Mucus Ql (Urine sed) NONE SEEN NONE SEEN [facility] Nitrite Ql (U) Negative NEGATIVE [facility] Protein Ql (U) Negative NEG/TRACE [facility] No Panel Informationon 01-15 Miscellaneous Test Comment See comment [facility] Comment on above: Specimen Source: UCC - Urine,Clean Catch - Urine CC - 200.100 Urine Bacteria TRACE #/HPF Abnormal NONE SEEN [facility] Urine Culture Reflexed YES [facility] Urine Microscopic Review YES [facility] Urine Occult Blood Negative NEGATIVE [facility] Urine Other Casts NONE SEEN #/LPF NONE SEEN [facility] Urine Other Crystals None Seen #/HPF None Seen [facility] Urine RBC NONE SEEN #/HPF 0-2 [facility] Urine Squamous Epithelial Cells RARE #/LPF NONE/RARE [facility] Urine WBC 5-10 #/HPF Abnormal NONE SEEN [facility] Erythrocyte distribution wid th Auto (RBC) [Ratio]on 12-13-2023 Erythrocyte distribution width (RBC) [Ratio] 13.9 % 11.0-15.0 [facility] Estimated glomerular filtrat ion rate (GFR) non- Americanon 12-13-2023 GFR/1.73 sq M.predicted among non-blacks MDRD (S/P/Bld) [Vol rate/Area] 30 mL/min/{1.73_m2} Low >=60 [facility] Hematocrit Auto (Bld) [Volum e fraction]on 12-13-2023 Hematocrit (Bld) [Volume fraction] 36.2 % 36.0-48.0 [facility] Hemoglobin [Mass/volume] in Bloodon 12-13-2023 Hemoglobin (Bld) [Mass/Vol] 11.5 g/dL Low 12.0-16.0 [facility] Iron binding capacity [Mass/ volume] in Serum or Plasmaon 12-13-2023 Iron binding capacity [Mass/Vol] 310.0 ug/dL 250.0-450.0 [facility] Iron saturation [Mass Fracti on] in Serum or Plasmaon 12-13-2023 Iron saturation [Mass fraction] 11.3 % [facility] Laboratory - Chemistry and C hemistry - challengeon 12-13-2023 Albumin [Mass/Vol] 3.3 g/dL Low 3.4-5.0 [facility] Calcium [Mass/Vol] 9.4 mg/dL 8.5-10.1 [facility] Chloride [Moles/Vol] 102 mmol/L 98-107 [facility] CO2 [Moles/Vol] 31.0 mmol/L 21.0-32.0 [facility] Creatinine [Mass/Vol] 1.67 mg/dL High 0.55-1.02 [facility] Ferritin [Mass/Vol] 32.0 ng/mL 8.0-252.0 [facility] GFR/1.73 sq M.predicted MDRD (S/P/Bld) [Vol rate/Area] 36 mL/min/{1.73_m2} Low >=60 [facility] Glucose [Mass/Vol] 118 mg/dL High 74-106 [facility] Iron [Mass/Vol] 35.0 ug/dL Low 50.0-170.0 [facility] Magnesium [Mass/Vol] 1.8 mg/dL 1.8-2.4 [facility] Potassium [Moles/Vol] 4.1 mmol/L 3.5-5.1 [facility] Sodium [Moles/Vol] 140 mmol/L 136-145 [facility] Urate [Mass/Vol] 7.5 mg/dL High 2.6-6.0 [facility] Urea nitrogen [Mass/Vol] 22.0 mg/dL High 7.0-18.0 [facility] Urea nitrogen/Creatinine [Mass ratio] 13.2 mg/mg [facility] Bilirubin Ql (U) Negative NEGATIVE [facility] [facility] Glucose (U) [Mass/Vol] Negative NEGATIVE [facility] Ketones Ql (U) Negative NEGATIVE [facility] pH (U) 6.5 [pH] 5.0-9.0 [facility] Specific gravity (U) [Rel density] 1.010 1.005-1.025 [facility] Urobilinogen Qn (U) 0.2 {Macie'U}/dL 0.2-1.0 [facility] Laboratory - Specimen inform ationon 12-13-2023 Appearance (U) CLEAR CLEAR [facility] Color (U) LT. YELLOW YELLOW [facility] Laboratory - Urinalysison Leukocyte esterase Test strip Ql (U) TRACE Abnormal NEGATIVE [facility] Mucus Ql (Urine sed) NONE SEEN NONE SEEN [facility] Nitrite Ql (U) Negative NEGATIVE [facility] Protein (U) [Mass/Vol] 9.8 mg/dL <=11.9 [facility] Protein Ql (U) Negative NEG/TRACE [facility] Leukocytes [#/volume] correc olamide for nucleated erythrocytes in Blood by Automated counon 12-13-2023 WBC corrected for nucl RBC Auto (Bld) [#/Vol] 6.2 10 3/uL 4.0-11.0 [facility] MCH Auto (RBC) [Entitic mass ]on 12-13-2023 MCH (RBC) [Entitic mass] 29.6 pg 26.7-34.0 [facility] MCHC Auto (RBC) [Mass/Vol]on 12-13-2023 MCHC (RBC) [Mass/Vol] 31.8 g/dL 29.9-35.2 [facility] MCV Auto (RBC) [Entitic vol] on 07-09-2024 MCV (RBC) [Entitic vol] 93.1 fL 81.0-99.0 [facility] No Panel Informationon 12-12 25-Hydroxy Vitamin D Total 75.0 ng/mL [facility] Comment on above: <20 ng/mL Vit D defi cient20-<30 ng/mL Vit D fjwenqeudqhk96-789 ng/mL Vit D sufficient>100 ng/mL Potential Toxicity Parathyroid Hormone (Intact) 39 pg/mL 15-65 [facility] Comment on above: Performed at: - [address] [id number] Director: Jerry Joseph PhD, Phone: [phone] Phosphorus Level 3.5 mg/dL 2.6-4.7 [facility] Urine Bacteria SMALL #/HPF Abnormal NONE SEEN [facility] Urine Occult Blood Negative NEGATIVE [facility] Urine Other Casts NONE SEEN #/LPF NONE SEEN [facility] Urine Other Crystals None Seen #/HPF None Seen [facility] Urine Random Creatinine 27.29 mg/dL 20.0 0-300.0 0 [facility] Urine RBC 0-2 #/HPF 0-2 [facility] Urine Squamous Epithelial Cells FEW #/LPF Abnormal NONE/RARE [facility] Urine WBC 5-10 #/HPF Abnormal NONE SEEN [facility] Platelet mean volume Auto (B ld) [Entitic vol]on 12-13-2023 Platelet mean volume (Bld) [Entitic vol] 8.7 fL Low 9.5-13.5 [facility] Platelets Auto (Bld) [#/Vol] on 12-13-2023 Platelets (Bld) [#/Vol] 293 10 3/uL 150-450 [facility] RBC Auto (Bld) [#/Vol]on RBC (Bld) [#/Vol] 3.89 10 6/uL Low 4.20-5.40 [facility] Serum or plasma anion gap de terminationon 12-13-2023 Anion gap [Moles/Vol] 11.1 mmol/L [facility] Urine protein/creatinine rat ioon 12-13-2023 Protein/Creatinine (U) [Ratio] 0.36 [facility] Office Visiton 11-07-2023 Follow-up visit [id number] Nadia Patterson 1945 F Date Provider Department Center 11/07/2023 JenniferJOSH HANNAH DOMONIQUE [facility] No family history on file Level of Service:39248 [place] OFFICE/OUTPATIENT ESTABLISHED LOW MDM 20 MIN Normal [facility] Office Visiton 08-10-2023 Follow-up visit [id number] Nadia Patterson 1945 F Date Provider Department Center 08/10/2023 JenniferJOSH HANNAH [facility] No family history on file Level of Service:21927 [place] OFFICE/OUTPATIENT ESTABLISHED MOD MDM 30 MIN Normal [facility] Orders Onlyon 08-10-2023 Orders Only [id number] Nadia Patterson 1945 F Date Provider Department Center 08/10/2023 [facility] No family history on file Normal [facility] Discharge Instructionson Discharge Instructions [id number] 2#1.00TIFF Normal [facility] BMPon 08-02-2023 Anion gap [Moles/Vol] 11 mmol/L Normal -16 [facility] Comment on above: Performed By: #### 1 [id number], 3330327, 8198599 ####[facility] [address] [place] [address] BUN/Creat Ratio 15 No Units Normal 10-20 [facility] Comment on above: Performed By: #### 1 4822881, 4954387, 8839037 ####[facility] [address] [place] [address] Calcium [Mass/Vol] 9.1 mg/dL Normal 8.9-11.1 [facility] Comment on above: Performed By: #### 1 9505126, 4150052, 7487157 ####[facility] [address] [place] [address] Chloride [Moles/Vol] 106 mmol/L Normal 101-111 [facility] Comment on above: Performed By: #### 1 3654400, 1430442, 1896911 ####[facility] [address] [place] [address] CO2 [Moles/Vol] 29 mmol/L Normal 21-31 [facility] Comment on above: Performed By: #### 1 3530165, 9667835, 9733314 ####[facility] [address] [place] [address] Creatinine [Mass/Vol] 1.5 mg/dL High 0.5-1.3 [facility] Comment on above: Performed By: #### 1 1831265, 5350370, 1316539 ####[facility] [address] [place] [address] Glucose [Mass/Vol] 128 mg/dL Normal 55-199 [facility] Comment on above: Performed By: #### 1 3016547, 4063571, 9901682 ####[facility] [address] [place] [address] Potassium [Moles/Vol] 4.0 mmol/L Normal 3.5-5.3 [facility] Comment on above: Performed By: #### 1 6543592, 0193955, 0393551 ####[facility] [address] [place] [address] Sodium [Moles/Vol] 142 mmol/L Normal 135-145 [facility] Comment on above: Performed By: #### 1 6221445, 8504184, 4882520 ####[facility] [address] [place] [address] Urea nitrogen [Mass/Vol] 22 mg/dL High 5-21 [facility] Comment on above: Performed By: #### 1 3749926, 4234197, 6656063 ####[facility] [address] [place] [address] CBC w/ Auto Diffon 4 Basophil Absolute 0.1 E9/L Normal 0.0-0.2 [facility] Comment on above: Performed By: #### 1 2801878, 3840810, 8455326 ####[address] [address] Basophils/100 WBC (Bld) 1.1 % Normal 0.0-2.0 [facility] Comment on above: Performed By: #### 1 4592559, 3099912, 9803723 ####[address] [address] Eos Absolute 0.2 E9/L Normal 0.0-0.5 [facility] Comment on above: Performed By: #### 1 7915753, 6895736, 8173605 ####[address] [address] Eosinophils/100 WBC (Bld) 4.7 % Normal 0.0-8.0 [facility] Comment on above: Performed By: #### 1 8170290, 5682768, 8883812 ####[address] [address] Erythrocyte distribution width (RBC) [Ratio] 14.8 % High 10.9-14.2 [facility] Comment on above: Performed By: #### 1 9220624, 2679325, 1238618 ####[address] [address] Hematocrit (Bld) [Volume fraction] 33.0 % Low 34.0-46.0 [facility] Comment on above: Performed By: #### 1 9567609, 0024315, 6409854 ####[address] [address] Hemoglobin (Bld) [Mass/Vol] 10.7 g/dL Low 12.0-16.0 [facility] Comment on above: Performed By: #### 1 6945478, 2324657, 0817298 ####[address] [address] Lymph Absolute 2.1 E9/L Normal 1.0-4.0 [facility] Comment on above: Performed By: #### 1 2146243, 6277931, 7218265 ####[address] [address] Lymphocytes/100 WBC (Bld) 39.9 % Normal 14.0-50.0 [facility] Comment on above: Performed By: #### 1 3180371, 2998805, 2509521 ####[address] [address] MCH (RBC) [Entitic mass] 29.1 pg Normal 27.0-34.0 [facility] Comment on above: Performed By: #### 1 5864616, 3810841, 4006811 ####[address] [address] MCHC (RBC) [Mass/Vol] 32.4 g/dL Normal 31.4-36.0 [facility] Comment on above: Performed By: #### 1 4553926, 1639892, 1846454 ####[address] [address] MCV (RBC) [Entitic vol] 89.6 fL Normal 80.0-100.0 F [facility] Comment on above: Performed By: #### 1 6868762, 6314278, 1807500 ####[address] [address] [place] Absolute 0.4 E9/L Normal 0.2-1.0 [facility] Comment on above: Performed By: #### 1 3553129, 0214493, 5431395 ####[address] [address] Monocytes/100 WBC (Bld) 8.1 % Normal 4.0-14.0 F [facility] Comment on above: Performed By: #### 1 9975005, 6472477, 4642291 ####[address] [address] Neutro Absolute 2.4 E9/L Normal 2.0-7.5 [facility] Comment on above: Performed By: #### 1 8728807, 0152211, 7762099 ####[facility] [address] [place] [address] Neutro Auto 46.2 % Normal 36.0-75.0 [facility] Comment on above: Performed By: #### 1 5826385, 2484227, 9395162 ####[place] [address] [place] [address] Platelet 236.0 E9/L Normal 150.0-500.0 [facility] Comment on above: Performed By: #### 1 1925854, 7106371, 6487132 ####[place] [place] [address] Platelet mean volume (Bld) [Entitic vol] 6.8 fL Normal 6.4-10.8 [facility] Comment on above: Performed By: #### 1 3516100, 8305765, 9147372 ####[address] [address] RBC 3.7 E12/L Low 4.3-5.9 [facility] Comment on above: Performed By: #### 1 9162109, 9366100, 9848613 ####[facility] [address] [place] [address] WBC 5.3 E9/L Normal 4.0-11.0 [facility] Comment on above: Performed By: #### 1 9405622, 9087826, 0259696 ####[facility] [address] [place] [address] CHEMISTRYOrdered By: SYSTEM SYSTEM on 08-02-2023 Anion [...] Normal 80.0 - 100.0 fL Remisol Heme [place] Absolute 0.4 E9/L Normal 0.2 - 1.0 [...] Inpatient Clinical Summaryon 08-02-2023 Inpatient Clinical Summary [place] [id number] Clinical Summary Person Information: Name: NADIA PATTERSON Age: 78 Years : 1945 Sex: Female PCP: HARPAL HAYES MD Marital Status: Phone: [phone] Race: White Ethnicity: Non- or Language: Hungarian Visit Id: Visit Reason: Cough; Weakness or fatigue; WEAKNESS Speciality: Acuity: Enc Type: Inpatient Med Service: Medical Arrival: 07/30/2023 20:28:48 Discharge: Dispo Type: Admitted as IP to this [facility] Address: [address] [place] [id number] Provider Notes: Diagnosis: 1:Generalized weakness; 2:Pneumonia; 3:Lactic [...] By Mouth every 6 hours. acetaminophen-hydroc odone (Milford 325 mg-5 mg oral tablet) 1 Tablets [...] Follow up: With: Address: When: FREDDY BRIGGS, [place] [address] 08/09/2023 10:30 AM Comments: Call for followup appointment Patient Education Information: Community-Acquired Pneumonia, Adult, Wlbw-yc-Ebec Normal [facility] Inpatient Patient Summaryon 08-02-2023 Inpatient [...] Strength 500 mg oral tablet) acetaminophen-hydroc odone (Milford 325 mg-5 mg oral tablet) aspirin (aspirin [...] Diagnostic Test Results None Pharmacy Information Other: [facility] Discharge Instructions Please return to ER if symptoms change or worsen. Please take medication as prescribed. Please follow-up with PCP New Follow Up Appointments after Discharge Follow Up with FREDDY BRIGGS, GRETEL ROWAN When: 08/09/2023 10:30 AM EST Where: [address] [place] [address]- Medications What How Much When Instructions Next Dose New azithromycin (azithromycin 250 mg Tab) 1 Tablets By Mouth Every day start Pickup at [place] [address] 08/03/23 9am New cefuroxime (cefuroxime 500 mg oral tablet) 1 Tablets By Mouth 2 times a day start Pickup at [place] [address] 08/03/23 9am Changed pregabalin 150 Milligram By Mouth 2 times a day 08/02/23 9pm Unchanged acetaminophen (Tylenol Extra Strength 500 mg oral tablet) 2 Tablets By Mouth Every 6 hours as needed Unchanged acetaminophen-hydroc odone (Milford 325 mg-5 mg oral tablet) 1 Tablets [...] day 08/02/23 (more content not included)... Normal [facility] Inpatient Patient Summary [address] [address] Patient Discharge Instructions PERSON INFORMATION [...] Follow up: With: Address: When: HARPAL [address]ES [id number] [place] [address] 08/09/2023 10:30 AM Comments: Call [...] New Medications [facility], [address], [place] [id number], [phone] azithromycin (azithromycin 250 mg Tab) 1 Tablets [...] hours. Last Dose: Next Dose: acetaminophen-hydroc odone (Milford 325 mg-5 mg oral tablet) 1 Tablets [...] By Mouth (more content not included)... Normal [facility] Interdisciplinary Note - [place] e Manageron 08-02-2023 Interdisciplinary Note - Clean Room Assembler Pt is awake and alert in bed, previously rounded with Dr. Meier. PCP verified and insurance information reviewed and DME discussed. Contact information provided and white board updated. Pt is set up with [facility] at [place]. P tis from home with and she will transport at [place]. Pt is currently on oxygen 3L, plan to stay in hospital today and wean down oxygen. Pt does not have home oxygen, may need desat prior to [place]. Medicare rights reviewed, CRM following Normal [facility] Comment on above: Result Comment: Elec tronically Signed By: Mei Locke RN\.br\Date and Time Signed: 08/02/23 08:26 EST Other Comment: error Interdisciplinary Note - Clean Room Assembler Pt is awake and alert in bed, previously rounded with Dr. Meier. PCP verified and insurance information reviewed and DME discussed. Contact information provided and white board updated. Pt states she is current with [facility], and referral to resource center to verify. Pt is from home with spouse and her daughter or will transport at [place]. Medicare rights reviewed. PT= . CRM following [facility] Comment on above: Result Comment: Elec tronically Signed By: Mei Locke RN\.br\Date and Time Signed: 08/02/23 08:14 EST eGFRon 08-02-2023 eGFR 35 mL/min/1.73 m2 Low >=59 [facility] Comment on above: Order Comment: Order added by Discern Expert. Performed By: #### 1 1045075, 5583574, 4270012 ####[facility] [address] [place] [address] BMPon 08-01-2023 Anion gap [Moles/Vol] 12 mmol/L Normal 6-16 [facility] Comment on above: Performed By: #### 1 9814400, 6848120, 3118088 ####[facility] [address] [place] [address] BUN/Creat Ratio 14 No Units Normal 10-20 [facility] Comment on above: Performed By: #### 1 9000533, 1391497, 7123199 ####[facility] [address] [place] [address] Calcium [Mass/Vol] 9.1 mg/dL Normal 8.9-11.1 [facility] Comment on above: Performed By: #### 1 6845611, 1755600, 7453269 ####[facility] [address] [place] [address] Chloride [Moles/Vol] 103 mmol/L Normal 101-111 [facility] Comment on above: Performed By: #### 1 3562483, 7558557, 3562431 ####[facility] [address] [facility] [place] [address] CO2 [Moles/Vol] 31 mmol/L Normal 21-31 [facility] Comment on above: Performed By: #### 1 7066649, 2291887, 3528628 ####[facility] [address] [place] [address] Creatinine [Mass/Vol] 1.3 mg/dL Normal 0.5-1.3 [facility] Comment on above: Performed By: #### 1 7156552, 2869524, 2298594 ####[facility] [address] [place] [address] Glucose [Mass/Vol] 113 mg/dL Normal 55-199 [facility] Comment on above: Performed By: #### 1 5798440, 9570842, 0191620 ####[facility] [address] [place] [address] Potassium [Moles/Vol] 4.0 mmol/L Normal 3.5-5.3 [facility] Comment on above: Performed By: #### 1 0287701, 4264164, 1714802 ####[address] [address] Sodium [Moles/Vol] 142 mmol/L Normal 135-145 [facility] Comment on above: Performed By: #### 1 9710075, 7608266, 9649038 ####[address] [address] Urea nitrogen [Mass/Vol] 18 mg/dL Normal 5-21 [facility] Comment on above: Performed By: #### 1 0266574, 1834750, 2028541 ####[address] [address] BNPon 08-01-2023 Natriuretic peptide B (Bld) [Mass/Vol] 112 pg/mL High 5-80 [facility] Comment on above: Performed By: #### 1 8455255 ####[address] [address] CBC w/ Auto Diffon 4 Basophil Absolute 0.1 E9/L Normal 0.0-0.2 [facility] Comment on above: Performed By: #### 1 4728471, 4320945, 8215966 ####[address] [address] Basophils/100 WBC (Bld) 1.4 % Normal 0.0-2.0 F [facility] Comment on above: Performed By: #### 1 5449989, 5144337, 8563261 ####[address] [address] Eos Absolute 0.3 E9/L Normal 0.0-0.5 [facility] Comment on above: Performed By: #### 1 6171396, 4278653, 6056745 ####[address] [address] Eosinophils/100 WBC (Bld) 6.1 % Normal 0.0-8.0 [facility] Comment on above: Performed By: #### 1 8686753, 7510797, 0856940 ####[address] [address] Erythrocyte distribution width (RBC) [Ratio] 14.9 % High 10.9-14.2 [facility] Comment on above: Performed By: #### 1 4553241, 1000099, 3070847 ####[address] [address] Hematocrit (Bld) [Volume fraction] 34.0 % Normal 34.0-46.0 [facility] Comment on above: Performed By: #### 1 2154795, 2909000, 4505141 ####[place] [address] Hemoglobin (Bld) [Mass/Vol] 11.3 g/dL Low 12.0-16.0 [facility] Comment on above: Performed By: #### 1 2374602, 9093274, 3177973 ####[address] [address] Lymph Absolute 2.4 E9/L Normal 1.0-4.0 [facility] Comment on above: Performed By: #### 1 2339733, 2484799, 7163196 ####[address] [address] Lymphocytes/100 WBC (Bld) 43.6 % Normal 14.0-50.0 [facility] Comment on above: Performed By: #### 1 1837539, 2908357, 7691746 ####[address] [address] MCH (RBC) [Entitic mass] 29.4 pg Normal 27.0-34.0 [facility] Comment on above: Performed By: #### 1 6734850, 3925419, 0876337 ####[address] [address] MCHC (RBC) [Mass/Vol] 33.2 g/dL Normal 31.4-36.0 [facility] Comment on above: Performed By: #### 1 1578623, 3490026, 7152530 ####[address] [address] MCV (RBC) [Entitic vol] 88.5 fL Normal 80.0-100.0 [facility] Comment on above: Performed By: #### 1 6349360, 7438068, 6182406 ####[address] [address] [place] Absolute 0.4 E9/L Normal 0.2-1.0 [facility] Comment on above: Performed By: #### 1 2014619, 0723708, 4412815 ####[place] [address] Monocytes/100 WBC (Bld) 7.3 % Normal 4.0-14.0 [facility] Comment on above: Performed By: #### 1 5203059, 7253487, 9002487 ####[address] [address] Neutro Absolute 2.2 E9/L Normal 2.0-7.5 [facility] Comment on above: Performed By: #### 1 1883424, 7138427, 6211062 ####[address] [address] Neutro Auto 41.6 % Normal 36.0-75.0 [facility] Comment on above: Performed By: #### 1 4995102, 0113306, 3348198 ####[address] [address] Platelet 251.0 E9/L Normal 150.0-500.0 [facility] Comment on above: Performed By: #### 1 0504076, 7917448, 6374570 ####[address] [place] [address] Platelet mean volume (Bld) [Entitic vol] 7.9 fL Normal 6.4-10.8 [facility] Comment on above: Performed By: #### 1 8305755, 5951130, 1012313 ####[facility] [address] [place] [address] RBC 3.8 E12/L Low 4.3-5.9 [facility] Comment on above: Performed By: #### 1 4018096, 0522279, 4774305 ####[facility] [address] [place] [address] WBC 5.4 E9/L Normal 4.0-11.0 [facility] Comment on above: Performed By: #### 1 0872480, 6373690, 6586667 ####[facility] [address] [place] [address] CHEMISTRYOrdered By: charming charlie on 08-01-2023 Anion gap [Moles/Vol] 12 mmol/L [...] 112 pg/mL High 5 - 80 pg/mL [facility] Erma HEMATOLOGYOrdered By: SYSTEM SYSTEM on 08-01-2023 [...] Normal 80.0 - 100.0 fL Remisol Heme [place] Absolute 0.4 E9/L Normal 0.2 - 1.0 [...] Normal 4.0 - 11.0 E9/L Remisol Heme WrqE2bpt 08-01-2023 HbA1c (Bld) [Mass fraction] 6.7 % High <=5.9 [facility] Comment on above: Order Comment: Order placed by EKM rule. [email or web address]_[facility] Performed By: #### 7 [id number] ####[facility] [address] [place] [address] Interdisciplinary Note - [place] e Manageron 08-01-2023 Interdisciplinary Note - Clean Room Assembler Pt is awake and alert in bed, previously rounded with Dr. Meier. Pt is from home with spouse and he will transport at [place]. Inpatient status reviewed, form signed and original [...] therapy evals for HH and agreeable to [facility] HH at [place], referral to be sent to resource center, anticipate [place] 08/02/23 [facility] Comment on above: Result Comment: Elec tronically Signed By: Cornelia TAVAREZ, Mei\.br\Date and Time Signed: 08/01/23 14:51 EST Message from Medicareon 07-08 Message from Medicare [id number] 20 [id number] #1.00TIFF [facility] Progress Note-Physicianon Progress Note-Physician Assessment/Plan 1. [...] and leg pain requiring a dose of Milford. She states this is not a new [...] 08:50:00) Lymph Auto: 43.6 % (08/01/23 08:50:00) [place] Auto: 7.3 % (08/01/23 08:50:00) Eos Auto: 6.1 % (08/01/23 08:50:00) Basophil Auto: 1.4 % (08/01/23 08:50:00) Neutro Absolute: 2.2 E9/L (08/01/23 08:50:00) Lymph Absolute: 2.4 E9/L (08/01/23 08:50:00) [place] Absolute: 0.4 E9/L (08/01/23 08:50:00) Eos Absolute: [...] positive Weakness (more content not included)... Normal [facility] Comment on above: Result Comment: Elec tronically Signed By: Saira Lawler\.br\Date and Time Signed: 08/01/23 09:26 EST\.br\Electronically Co-Signed By: Hector Meier DO\.br\Date and Time Co-Signed: 08/01/23 14:28 EST eGFRon 08-01-2023 eGFR 42 mL/min/1.73 m2 Low >=59 [facility] Comment on above: Order Comment: Order added by Discern Expert. Performed By: #### 1 5651951, 6553824, 4253780 ####[facility] [address] [place] [address] CHEMISTRYOrdered By: Cecelia Carrillo on 07-31-2023 HbA1c (Bld) [Mass fraction] 6.7 % High <=5.9% [facility] ChemAutoSS CHEMISTRYOrdered By: SYSTEM SYSTEM on 07-31-2023 [...] High Sensitivity Troponin I Instructions For Use, [facility], January 2018) Troponin 3.50 pg/mL Low 10.10 - 27.10 pg/mL [facility] Comment on above: Interpretive Data: T he 95% CI (Confidence Interval) PPV (Positive Predictive Value) for myocardial infarction in females is 38 pg/mL, in males 51 pg/mL. The results should be used in conjunction with clinical conditions of myocardial infarction. (Access High Sensitivity Troponin I Instructions For Use, [facility], January 2018) Lactic Acid Lvl 2.1 mmol/L [...] High Sensitivity Troponin I Instructions For Use, [facility], January 2018) ED Clinical Summaryon 2023 ED Clinical Summary [place] [id number] ED Clinical Summary Person Information Name: NADIA PATTERSON [facility] Age: 78 Years : 1945 Sex: Female Language: Hungarian PCP: HARPAL HAYES MD Marital Status: Phone: [phone] Visit Id: Visit Reason: Cough; Weakness or fatigue; WEAKNESS Speciality: Acuity: 3 Enc Type: Inpatient Med Service: Emergency Arrival: 07/30/2023 20:28:48 Discharge: LOS: 000 14:42 Checkin: 07/30/2023 20:28:48 Checkout: 07/31/2023 11:10:22 Dispo Type: Admitted as IP to this [facility] EVENTS: Event Name Event Status [...] 03:21:59 Meds Admin Request 07/31/2023 03:23:59 ADDRESS: [address] [place] [phone] PHYS DOC NOTES: MEDICAL INFORMATION: Prescriptions Given: Medications to Continue with No Changes Other Medications acetaminophen (Tylenol Extra Strength 500 mg oral tablet) 2 Tablets By Mouth every 6 hours. acetaminophen-hydroc odone ([place] 325 mg-5 mg oral tablet) 1 Tablets [...] chest pain. (more content not included)... Normal [facility] ED Note-Physicianon 07-31-19 ED Note-Physician Basic Information [...] very tired lately. They talked to her casting finisher who advised cutting back on her trazodone [...] data avail (more content not included)... Normal [facility] Comment on above: Result Comment: Elec tronically Signed By: Mariela Birch PA-C\.br\Date and Time Signed: 07/30/23 23:16 EST\.br\Electronically Co-Signed By: Michele Marie DO\.br\Date and Time Co-Signed: 07/31/23 01:47 EST ED Patient Education Noteon 07-31-2023 ED Patient Education Note Normal [facility] ED Patient Summaryon 024 ED Patient Summary [place] [id number] Patient Discharge Instructions Person Information Name: NADIA PATTERSON Age: 78 Years Arrival Date: 07/30/2023 20:28:48 Discharge Diagnosis: 1:Generalized weakness; 2:Pneumonia; 3:Lactic acidosis; 4:Fibromyalgia; 5:Diabetes mellitus with polyneuropathy; 6:Hypothyroid; 7:CKD (chronic kidney disease) stage 3, GFR 30-59 ml/min; 8:Dementia Primary Care Physician: HARPAL HAYES MD Provider Information Primary Provider: Michele Marie DO Advanced Mid Wife:Mariela Birch PA-C The exam and treatment you received in the Emergency Department were for an urgent problem and are not intended as complete care. It is important that you follow up with a doctor, nurse practitioner, or physician?s paperhanger assistant for ongoing care. If your symptoms [...] opioids can be used to help relieve svtulomu-jp-llcyom pain and are often prescribed following a [...] be struggling with addiction, tell your health neonatal intensive care unit nurse and ask for guidance or call [facility] National Helpline at [phone]-WPJW. (more content not included)... Normal [facility] Influenza A&B Agon Influenzae A Ag Negative Normal Negative [facility] Comment on above: Performed By: #### 1 [id number], [id number] ####[facility] [address] [place] [address] Influenzae B Ag Negative Normal Negative [facility] Comment on above: Result Comment: Test sensitivity and specificity vary for age group, specimen type, antigen types, and prevalence of disease. Test results must be evaluated in conjunction with other clinical data available to the physician. Individuals who received nasally administered Influenza A vaccine may have positive test results up to 3 days after vaccination. Performed By: #### 1 [id number], [id number] ####[facility] [address] [place] [address] Interdisciplinary Note - PTo n 07-31-2023 Interdisciplinary Note - PT Order for ED, pt to be transferred; will attempt PT eval on 08/01/23. Normal [facility] Lactic Acidon 07-31-2023 Lactic Acid Lvl 2.1 mmol/L Normal 0.5-2.2 [facility] Comment on above: Order Comment: Order added by EKS Rule. (FT_LACTIC_ACID_REFLEX) Adds reflex Lactic Acid 4 hours after initial if result is greater than or equal to 2.0. Performed By: #### 2 [id number] ####[facility] [address] [place] [address] MICRO OTHER TESTSOrdered By: Damion Grigsby on 07-31-2023 Influenzae A Ag Negative (07/31/23 3:32 AM) Normal Negative [facility] Man Sero Influenzae B Ag Negative 1 (07/31/23 3:32 AM) Normal Negative [facility] Sero Comment on above: Interpretive Data: T [...] NEG Ctl Pass (07/31/23 3:32 AM) Normal [facility] Man Sero Rapid COV Int POS Ctl Pass (07/31/23 3:32 AM) Normal [facility] Sero SARS-CoV+SARS-CoV-2 (COVID-19) Ag IA.rapid Ql (Resp) Not Detected 6 (07/31/23 3:32 AM) Normal Not Detected [facility] Sero Comment on above: Interpretive Data: T he TRA Veritor System for Rapid Detection of SARS-CoV-2 [...] call Irma twice with no answer. Normal [facility] Rapid COVID Antigen (MC)on 07-31-2023 Rapid COV Int NEG Ctl Pass Normal [facility] Comment on above: Performed By: #### 1 [id number], [id number] ####[facility] [address] [place] [address] Rapid COV Int POS Ctl Pass Normal [facility] Comment on above: Performed By: #### 1 5254031, [id number] ####[facility] [address] [place] [address] SARS-CoV+SARS-CoV-2 (COVID-19) Ag IA.rapid Ql (Resp) Not detected Normal Not Detected [facility] Comment on above: Result Comment: The TRA Veritor? System for Rapid Detection of SARS-CoV-2 [...] or revoked sooner. Performed By: #### 1 [id number], [id number] ####[facility] [address] [place] [address] Troponin 3 Hr.on 07-31-2023 Troponin 3.60 pg/mL Low 10.10-27.10 [facility] Comment on above: Result Comment: The 95% CI (Confidence Interval) PPV (Positive Predictive Value) for myocardial infarction in females is 38 pg/mL, in males 51 pg/mL. The results should be used in conjunction with clinical conditions of myocardial infarction. (Access High Sensitivity Troponin I Instructions For Use, Manjula Cecilia, January 2018) Performed By: #### 1 [id number] ####[facility] [address] [place] [address] Troponin 6 Hr.on 07-31-2023 Troponin 3.50 pg/mL Low 10.10-27.10 [facility] Comment on above: Result Comment: The 95% CI (Confidence Interval) PPV (Positive Predictive Value) for myocardial infarction in females is 38 pg/mL, in males 51 pg/mL. The results should be used in conjunction with clinical conditions of myocardial infarction. (Access High Sensitivity Troponin I Instructions For Use, Listia, January 2018) Performed By: #### 1 [id number] ####[facility] [address] [place] [address] Troponin 9 Hr.on 07-31-2023 Troponin 4.50 pg/mL Low 10.10-27.10 [facility] Comment on above: Result Comment: The 95% CI (Confidence Interval) PPV (Positive Predictive Value) for myocardial infarction in females is 38 pg/mL, in males 51 pg/mL. The results should be used in conjunction with clinical conditions of myocardial infarction. ([place] [facility] [place] High Sensitivity Troponin I Instructions For Use, Listia, January 2018) Performed By: #### 1 [id number] ####[address] [address] XR Chest Single Viewon 07-31 XR Chest Single View Exam Date/Time: 07/30/2023 21:01 EST Reason for Exam: Shortness of breath (SOB) Report [facility] [phone] IMPRESSION: There are no acute cardiopulmonary changes. [...] mGy = na DAP = na Normal [facility] BMPon 07-30-2023 Anion gap [Moles/Vol] 15 mmol/L Normal 6-16 [facility] Comment on above: Performed By: #### 2 597413, 10326815, 5040788, 8827523, 5004738, 74879076, 22520408 ####[facility] [address] [place] [address] BUN/Creat Ratio 13 No Units Normal 10-20 [facility] Comment on above: Performed By: #### 2 262739, 04613735, 9160745, 1890454, 4210638, 81746546, 69320424 ####[facility] [address] [place] [address] Calcium [Mass/Vol] 10.0 mg/dL Normal 8.9-11.1 [facility] Comment on above: Performed By: #### 2 841406, 79553722, 4699278, 1639816, 7720861, 13194217, 64713670 ####[facility] [address] [place] [address] Chloride [Moles/Vol] 101 mmol/L Normal 101-111 [facility] Comment on above: Performed By: #### 2 430772, 37510524, 5571247, 8815185, 7144749, 90899410, 87354687 ####[facility] [address] [place] [address] CO2 [Moles/Vol] 31 mmol/L Normal 21-31 [facility] Comment on above: Performed By: #### 2 333258, 72519462, 1535008, 6195837, 0171267, 27558930, 83387252 ####[facility] [address] [place] [address] Creatinine [Mass/Vol] 1.5 mg/dL High 0.5-1.3 [facility] Comment on above: Performed By: #### 2 375560, 15670928, 3071325, 7154141, 4205176, 43706369, 40420308 ####[facility] [address] [place] [address] Glucose [Mass/Vol] 140 mg/dL Normal 55-199 [facility] Comment on above: Performed By: #### 2 031763, 28623070, 4172572, 5244216, 9236023, 91142064, 45804133 ####[facility] [address] [place] [address] Potassium [Moles/Vol] 4.0 mmol/L Normal 3.5-5.3 [facility] Comment on above: Performed By: #### 2 803556, 21972961, 2992249, 9094736, 0910049, 46158961, 50815373 ####[facility] [address] [place] [address] Sodium [Moles/Vol] 143 mmol/L Normal 135-145 [facility] Comment on above: Performed By: #### 2 590123, 94366145, 5982285, 2080904, 2378437, 14453091, 15897928 ####[facility] [address] [place] [address] Urea nitrogen [Mass/Vol] 20 mg/dL Normal 5-21 [facility] Comment on above: Performed By: #### 2 484095, 14723442, 4710303, 5507239, 1841004, 99260826, 45922299 ####[facility] [address] [place] [address] BNPon 07-30-2023 Int Ctr BNP Pass Normal [facility] Comment on above: Performed By: #### 2 574451, 95466096, 4466317, 0692630, 0103465, 62082616, 23727239 ####[facility] [address] [place] [address] Natriuretic peptide B (Bld) [Mass/Vol] 114 pg/mL High 5-80 [facility] Comment on above: Performed By: #### 2 893842, 87562246, 0233136, 5456555, 3671785, 38408213, 18380503 ####[place] [address] [place] [address] CBC w/ Auto Diffon 4 Basophil Absolute 0.0 E9/L Normal 0.0-0.2 [facility] Comment on above: Performed By: #### 2 415034, 77280251, 3782708, 1087070, 7435428, 47764081, 05923019 ####[address] [address] Basophils/100 WBC (Bld) 0.9 % Normal 0.0-2.0 [facility] Comment on above: Performed By: #### 2 124490, 22819649, 7819472, 3525162, 1331458, 03008430, 21277346 ####[address] [address] Eos Absolute 0.2 E9/L Normal 0.0-0.5 [facility] Comment on above: Performed By: #### 2 848813, 48438612, 9900570, 0443709, 1216951, 19921087, 42420169 ####[address] [address] Eosinophils/100 WBC (Bld) 4.1 % Normal 0.0-8.0 [facility] Comment on above: Performed By: #### 2 210209, 52243281, 1965196, 6359174, 1980731, 03959527, 15632710 ####[address] [address] Erythrocyte distribution width (RBC) [Ratio] 14.7 % High 10.9-14.2 [facility] Comment on above: Performed By: #### 2 696835, 27402517, 8162260, 8026356, 6201881, 05672403, 32414723 ####[address] [address] Hematocrit (Bld) [Volume fraction] 38.0 % Normal 34.0-46.0 [facility] Comment on above: Performed By: #### 2 137017, 90338488, 0631349, 1287451, 3370593, 63246373, 32217500 ####[facility] [address] [place] [address] Hemoglobin (Bld) [Mass/Vol] 12.5 g/dL Normal 12.0-16.0 [facility] Comment on above: Performed By: #### 2 410134, 71686594, 5083404, 8807559, 6981509, 29291685, 17687233 ####[address] [address] Lymph Absolute 1.7 E9/L Normal 1.0-4.0 [facility] Comment on above: Performed By: #### 2 990631, 81251389, 2875878, 4839656, 8902394, 62900224, 47952580 ####[address] [address] Lymphocytes/100 WBC (Bld) 30.5 % Normal 14.0-50.0 [facility] Comment on above: Performed By: #### 2 399488, 00419436, 7287960, 1313070, 2198197, 68980157, 88657480 ####[address] [address] MCH (RBC) [Entitic mass] 29.2 pg Normal 27.0-34.0 [facility] Comment on above: Performed By: #### 2 556052, 04955277, 8029492, 1713293, 2723094, 54882733, 00306683 ####[address] [address] MCHC (RBC) [Mass/Vol] 32.9 g/dL Normal 31.4-36.0 [facility] Comment on above: Performed By: #### 2 123046, 25942626, 0426597, 7124616, 0795866, 85207720, 55305015 ####[facility] [address] [place] [address] MCV (RBC) [Entitic vol] 89.0 fL Normal 80.0-100.0 [facility] Comment on above: Performed By: #### 2 970933, 29488168, 0734025, 7851118, 5209081, 77800071, 87992360 ####[address] [address] [place] Absolute 0.4 E9/L Normal 0.2-1.0 [facility] Comment on above: Performed By: #### 2 627358, 64599826, 4556293, 6883672, 2728913, 46558805, 17658092 ####[address] [address] Monocytes/100 WBC (Bld) 7.8 % Normal 4.0-14.0 [facility] Comment on above: Performed By: #### 2 755165, 00913340, 6623101, 7548207, 4242759, 83087643, 48997781 ####[address] [address] Neutro Absolute 3.2 E9/L Normal 2.0-7.5 [facility] Comment on above: Performed By: #### 2 729876, 36999919, 9531655, 0630033, 4711918, 16454307, 48203770 ####[facility] [address] [place] [address] Neutro Auto 56.7 % Normal 36.0-75.0 [facility] Comment on above: Performed By: #### 2 944845, 07326681, 9570410, 5995368, 8223016, 60346216, 96343997 ####[facility] [address] [place] [address] Platelet 215.0 E9/L Normal 150.0-500.0 [facility] Comment on above: Performed By: #### 2 329803, 30187479, 7917647, 6667885, 9431990, 72800743, 88553317 ####[facility] [address] [place] [address] Platelet mean volume (Bld) [Entitic vol] 7.1 fL Normal 6.4-10.8 [facility] Comment on above: Performed By: #### 2 381833, 08885816, 2560892, 4362172, 4642474, 28005039, 36465795 ####[facility] [address] [place] [address] RBC 4.3 E12/L Normal 4.3-5.9 [facility] Comment on above: Performed By: #### 2 445122, 29381704, 2142777, 7079945, 0343463, 80092488, 79735510 ####[facility] [address] [place] [address] WBC 5.6 E9/L Normal 4.0-11.0 [facility] Comment on above: Performed By: #### 2 654711, 31608828, 8672511, 5440936, 7302188, 60179795, 25798222 ####[facility] [address] [place] [address] CHEMISTRYOrdered By: SYSTEM SYSTEM on 07-30-2023 Albumin [...] 114 pg/mL High 5 - 80 pg/mL [facility] HemeManSS CHEMISTRYOrdered By: Yane BASSETT User on 07-30-2023 Glucose [Mass/Vol] 127 mg/dL High 55 - 99 mg/dL [facility] POC Subsection Comment on above: Result Comment: Michelle erickson RN/ POC Device SN [id number] Invalid Interpretation Code [facility] POC Subsection POC User ID [id number] 1 Invalid Interpretation Code [facility] POC Subsection POC Username DREAD CHURCH Invalid Interpretation Code [facility] POC Subsection Capillary Glucose POCon 07-08 Glucose [Mass/Vol] 127 mg/dL High 55-99 [facility] Comment on above: Result Comment: Michelle erickson RN/ Performed By: #### 2 [id number] ####[facility] [address] [place] [address] Consent for Treatmenton 07-08 Consent for Treatment [id number] 40 [id number] #1.00TIFF Normal [facility] HEMATOLOGYOrdered By: SYSTEM SYSTEM on [...] Normal 80.0 - 100.0 fL Remisol Heme [place] Absolute 0.4 E9/L Normal 0.2 - 1.0 [...] 07-30-2023 Albumin [Mass/Vol] 4.1 g/dL Normal 3.3-5.0 [facility] Comment on above: Performed By: #### 2 729147, 66433500, 7731871, 3247002, 7162290, 32203058, 81348860 ####[facility] [address] [place] [address] Albumin/Globulin [Mass ratio] 1.4 {ratio} Normal 1.1-2.2 [facility] Comment on above: Performed By: #### 2 215645, 52963489, 2381252, 9667867, 0225740, 15821989, 95664624 ####[facility] [address] [place] [address] Alk Phos 83 Int._Unit/L Normal 21-98 [facility] Comment on above: Performed By: #### 2 388397, 87952745, 3278708, 1044866, 6757384, 78127548, 11936734 ####[facility] [address] [place] [address] ALT 9 Int._Unit/L Normal 6-46 [facility] Comment on above: Performed By: #### 2 052162, 16448992, 3171167, 3059962, 5856694, 14984976, 46634598 ####[facility] [address] [place] [address] AST 15 Int._Unit/L Normal 5-43 [facility] Comment on above: Performed By: #### 2 676359, 78657152, 2013995, 5701968, 2898274, 70429364, 59260383 ####[facility] [address] [place] [address] Bili Direct 0.1 mg/dL Normal 0.0-0.4 [facility] Comment on above: Performed By: #### 2 478280, 59434795, 4525853, 3498346, 0379625, 15574890, 05859220 ####[facility] [address] [place] [address] Bili Indirect 0.3 mg/dL Normal 0.1-0.9 [facility] Comment on above: Performed By: #### 2 040588, 87158731, 2633255, 1800176, 3023921, 17233545, 28896392 ####[address] [address] Bili Total 0.4 mg/dL Normal 0.0-1.1 [facility] Comment on above: Performed By: #### 2 592580, 40211422, 5623643, 2285593, 4161318, 79326806, 78442541 ####[address] [address] Globulin (S) [Mass/Vol] 3.0 g/dL Normal 1.4-4.0 [facility] Comment on above: Performed By: #### 2 983505, 23804220, 5824709, 8877548, 3577519, 45345377, 99884271 ####[address] [place] [address] Protein [Mass/Vol] 7.1 g/dL Normal 6.0-7.8 [facility] Comment on above: Performed By: #### 2 533800, 55669596, 7130357, 5316987, 0998256, 97892986, 50610350 ####[facility] [address] [place] [address] Lactic Acidon 07-30-2023 Lactic Acid Lvl 2.4 mmol/L High 0.5-2.2 [facility] Comment on above: Performed By: #### 2 479125, 21460468, 7580496, 8090430, 0313699, 44177456, 09321547 ####[facility] [address] [place] [address] No Panel InformationOrdered By: ANGPROCESSSERVER MICROBIOLOGY on 07-30-2023 Blood Culture Charcoal No growth at 2 da ys. Final to follow at 7 days. [facility] Pre-Arrival Noteon Pre-Arrival Note Pre-Arrival Summary Name: BELEN Current Date: 07/30/2023 20:30:20 EST Gender: Female Date of : Age: 78 Pre-Arrival Type: EMS ETA: 07/30/2023 20:45:00 EST Primary Care Physician: Presenting Problem: weakness/trouble walking Pre-Arrival User: Dread Castañeda RN Referring Source: Location: Completion Date/Time: 07/30/2023 00:00:00 [facility] Emergency Department Pre-Hospital Report Form Vital Signs: HR 81 BP 109/68 RR 16 98% RA BG 159 98.7 F Pre-Hospital Report: A/Ox4 feeling generally ill, weakness and trouble walking. Hx fibromyalgia, DM, and kidney issues Treatment in Route: failed IV access Response to Treatment: Misc. Issues: Normal [facility] Troponin 0 Hr.on 07-30-2023 Troponin 3.50 pg/mL Low 10.10-27.10 [facility] Comment on above: Result Comment: The 95% CI (Confidence Interval) PPV (Positive Predictive Value) for myocardial infarction in females is 38 pg/mL, in males 51 pg/mL. The results should be used in conjunction with clinical conditions of myocardial infarction. (Access High Sensitivity Troponin I Instructions For Use, Manjula Shafer, January 2018) Performed By: #### 2 353800, 00504710, 1293927, 2515039, 8249084, 79142460, 10336362 ####[facility] [address] [place] [address] UA With Cult Reflexon 2023 Bacteria LM Ql (Urine sed) TRACE Normal Trace [facility] Comment on above: Performed By: #### 1 9666998 ####[facility] [address] [place] [address] Bilirubin Ql (U) Negative Normal Negative [facility] Comment on above: Performed By: #### 1 3400987 ####[address] [address] Clarity (U) CLEAR Normal Clear [facility] Comment on above: Performed By: #### 1 3112366 ####[address] [address] Color (U) YELLOW Normal Yellow [facility] Comment on above: Performed By: #### 1 9030098 ####[address] [address] Epithelial cells.squamous LM.HPF (Urine sed) [#/Area] 0-2 Normal 0-2 [facility] Comment on above: Performed By: #### 1 7265748 ####[facility] [address] [place] [address] Glucose Test strip (U) [Mass/Vol] Negative Normal Negative [facility] Comment on above: Performed By: #### 1 7129731 ####[address] [address] Hemoglobin Ql (U) Negative Normal Negative [facility] Comment on above: Performed By: #### 1 7937517 ####[facility] [address] [place] [address] Ketones (U) [Mass/Vol] Negative Normal Negative [facility] Comment on above: Performed By: #### 1 7239506 ####[facility] [address] [place] [address] Geronimo.plasma/Geronimo.R BC (Bld) [Mass ratio] 0-3 Normal 0-3 [facility] Comment on above: Performed By: #### 1 2711784 ####[facility] [address] [place] [address] Nitrite Ql (U) Negative Normal Negative [facility] Comment on above: Performed By: #### 1 0621089 ####[address] [place] [address] pH (U) 7.0 [pH] Invalid Interpretation Code 5.0-9.0 [facility] Comment on above: Performed By: #### 1 9418985 ####[address] [address] Protein (U) [Mass/Vol] Negative Normal Negative [facility] Comment on above: Performed By: #### 1 2862460 ####[address] [address] Specific gravity (U) [Rel density] 1.015 Invalid Interpretation Code 1.005-1.030 [facility] Comment on above: Performed By: #### 1 9139522 ####[facility] [address] [place] [address] Type of Urine collection method Clean Catch Normal [facility] Comment on above: Performed By: #### 1 1021886 ####[facility] [address] [place] [address] Urobilinogen Qn (U) 0.2 {Macie'U}/dL Normal 0.0-1.0 [facility] Comment on above: Performed By: #### 1 2185101 ####[address] [place] [address] WBC Auto Ql (U) Negative Normal Negative [facility] Comment on above: Performed By: #### 1 7622904 ####[facility] [address] [place] [address] WBC LM.HPF (Urine sed) [#/Area] 0-5 Normal 0-5 [facility] Comment on above: Performed By: #### 1 4981822 ####[facility] [address] [place] [address] URINALYSISOrdered By: Damion Grigsby on 07-30-2023 Bacteria [...] PM) Normal Negative [facility] UA Auto SS Geronimo.plasma/Geronimo.R BC (Bld) [Mass ratio] 0-3 /HPF Normal [...] [facility] UA Auto SS Urobilinogen Qn (U) 0.8912896 {Macie'U}/dL Normal 0.0 - 1.0 EU/dL [facility] UA Auto SS WBC Auto Ql (U) Negative (07/30/23 10:50 PM) Normal Negative [facility] UA Auto SS WBC LM.HPF (Urine sed) [#/Area] 0-5 /HPF Normal 0-5/HPF [facility] UA Auto SS eGFRon 07-30-2023 eGFR 35 mL/min/1.73 m2 Low >=59 [facility] Comment on above: Order Comment: Order added by Discern Expert. Performed By: #### 2 152970, 74976218, 3031820, 5018132, 4674514, 48566370, 46751864 ####[facility] [address] [place] [address] CHEMISTRYOrdered By: Lab DANYELLE User on 12-17-2022 Glucose [Mass/Vol] 119 mg/dL High 55 - 99 mg/dL [facility] POC Subsection Comment on above: Result Comment: Yvonne jl Meter POC Device SN [id number] Invalid Interpretation Code [facility] POC Subsection POC User ID [id number] Invalid Interpretation Code [facility] POC Subsection POC Username EJ SIMS Invalid Interpretation Code [facility] POC Subsection CHEMISTRYOrdered By: Yane BASSETT User on 12-16-2022 Glucose [Mass/Vol] 155 mg/dL High 55 - 99 mg/dL [facility] POC Subsection Comment on above: Result Comment: Yvonne jl Meter POC Device SN [id number] Invalid Interpretation Code [facility] POC Subsection POC User ID [id number] Invalid Interpretation Code [facility] POC Subsection POC Username EJ SIMS Invalid Interpretation Code [facility] POC Subsection Glucose [Mass/Vol] 127 mg/dL High 55 - 99 mg/dL [facility] POC Subsection Comment on above: Result Comment: Yvonne jl Meter POC Device SN [id number] Invalid Interpretation Code [facility] POC Subsection POC User ID [id number] Invalid Interpretation Code [facility] POC Subsection POC Username OUSMANE HWANG Invalid Interpretation Code [facility] POC Subsection CHEMISTRYOrdered By: Kerry Maravilla on 12-16-2022 Albumin Elph (U) [Mass fraction] mg/dL Invalid Interpretation Code [facility] Remisol Creatinine (U) [Mass/Vol] 44.5 mg/dL Invalid Interpretation Code [facility] Remisol U Prot/Creat Ratio [facility] Invalid Interpretation Code 0.00 - [...] Streptococcus species 4,000 cfu/ml Mixed skin contaminants [facility] Reference Laboratory Testing Ordered By: Sherrie DomainUseroberto on 12-16-2022 Parathyrin.intact [Mass/Vol] 42 pg/mL Invalid Interpretation Code 15-65pg/mL [facility] SendOutsSS Comment on above: Result Comment: Perf ormed at: [facility] [address] [id number] PhD Jake Edwards URINALYSISOrdered By: Ghassan Salcido [...] AM) Normal Negative [facility] UA Auto SS Geronimo.plasma/Geronimo.R BC (Bld) [Mass ratio] 0-3 /HPF Normal [...] [facility] UA Auto SS Urobilinogen Qn (U) 0.8988807 {Macie'U}/dL Normal 0.0 - 1.0 EU/dL [facility] [...] PM) Normal Negative [facility] UA Auto SS Geronimo.plasma/Geronimo.R BC (Bld) [Mass ratio] 0-3 /HPF Normal [...] [facility] UA Auto SS Urobilinogen Qn (U) 0.5138369 {Macie'U}/dL Normal 0.0 - 1.0 EU/dL [facility] UA Auto SS WBC Auto Ql (U) Negative (12/10/22 1:43 PM) Normal Negative [facility] UA Auto SS WBC LM.HPF (Urine sed) [#/Area] 0-5 /HPF Normal 0-5/HPF [facility] UA Auto SS AZTREONAM:SUSC:PT:ISOLATE:OR DQN:MICOrdered By: Jasmin Desai on 11-29-2022 Aztreonam YESENIA [Susc] >100,000 cfu/ml Escherichia coli [facility] Aztreonam YESENIA [Susc]Ordered By: Jasmin Desai on 11-29-2022 Escherichia coli Escherichia coli [facility] URINALYSISOrdered By: Yara Monroy on 11-29-2022 [...] PM) Normal Negative [facility] UA Auto SS Geronimo.plasma/Geronimo.R BC (Bld) [Mass ratio] 0-3 /HPF Normal 0-3/HPF [facility] UA Au to SS Nitrite Ql (U) Positive *ABN* (11/29/22 3:46 PM) Invalid Interpretation Code Negative [facility] UA Auto SS pH (U) 5.5 *NA* (11/29/22 3:46 PM) Invalid Interpretation Code 5.0 - 9.0 [facility] UA Auto SS Protein (U) [Mass/Vol] Negative (11/29/22 3:46 PM) Normal Negative [facility] UA Auto SS Specific gravity (U) [Rel density] 1.010 *NA* (11/29/22 3:46 PM) Invalid Interpretation Code 1.005 - 1.030 [facility] UA Auto SS UA Spec Desc Clean Catch (11/29/22 3:46 PM) Normal [facility] UA Auto SS Urobilinogen Qn (U) 0.0151162 {Macie'U}/dL Normal 0.0 - 1.0 EU/dL [facility] UA Auto SS WBC Auto Ql (U) 1+ *ABN* (11/29/22 3:46 PM) Invalid Interpretation Code Negative [facility] UA Auto SS WBC LM.HPF (Urine sed) [#/Area] /[HPF] Invalid Interpretation Code 0-5/HPF [facility] UA Auto SS CULTURE URINEon 05-30-2022 CULTURE [...] F Trimethoprim/Sulfame thoxazole <=20 S F Normal [facility] Comment on above: Performed By: #### C MP, HSTROPN #### [facility] [address] [place] [address] Dr. Sahil Turk CBC AUTO DIFFon 05-27-2022 BASO # 0.0 103/ul Normal 0.0-0.1 [facility] Comment on above: Performed By: #### U RTPCR #### [facility] [address] [place] [address] Dr. Sahil Turk Basophils/100 WBC (Bld) 0.3 % Normal 0.2-2.0 [facility] Comment on above: Performed By: #### U RTPCR #### [facility] [address] [place] [address] Dr. Sahil Turk EO # 0.1 103/ul Normal 0.0-0.7 [facility] Comment on above: Performed By: #### U RTPCR #### [facility] [address] [place] [address] Dr. Sahil Turk Eosinophils/100 WBC (Bld) 0.5 % Critically low 0.9-7.0 [facility] Comment on above: Performed By: #### U RTPCR #### [facility] [address] [place] [address] Dr. Sahil Turk Erythrocyte distribution width (RBC) [Ratio] 14.1 % Normal 11.0-15.0 [facility] Comment on above: Performed By: #### U RTPCR #### [facility] [address] [place] [address] Dr. Sahil Turk Hematocrit (Bld) [Volume fraction] 38.6 % Normal 36.0-48.0 [facility] Comment on above: Performed By: #### U RTPCR #### [facility] [address] [place] [address] Dr. Sahil Turk Hemoglobin (Bld) [Mass/Vol] 12.4 g/dL Normal 12.0-16.0 [facility] Comment on above: Performed By: #### U RTPCR #### [facility] [address] [place] [address] Dr. Sahil Turk IG # 0.05 10e3/ul Critically high 0.00-0.03 [facility] Comment on above: Performed By: #### U RTPCR #### [facility] [address] [place] [address] Dr. Sahil Turk IG % 0.5 % Normal 0.0-0.5 [facility] Comment on above: Performed By: #### U RTPCR #### [facility] [address] [place] [address] Dr. Sahil Turk LYMPH # 2.1 103/ul Normal 1.2-3.8 [facility] Comment on above: Performed By: #### U RTPCR #### [facility] [address] [place] [address] Dr. Sahil Turk Lymphocytes/100 WBC (Bld) 19.2 % Critically low 20.5-60.0 [facility] Comment on above: Performed By: #### U RTPCR #### [facility] [address] [place] [address] Dr. Sahil Turk MANUAL DIFF REQ NO Normal [facility] Comment on above: Performed By: #### U RTPCR #### [facility] [address] [place] [address] Dr. Sahil Turk MCH (RBC) [Entitic mass] 29.5 pg Normal 26.7-34.0 [facility] Comment on above: Performed By: #### U RTPCR #### [facility] [address] [place] [address] Dr. Sahil Turk MCHC (RBC) [Mass/Vol] 32.1 g/dL Normal 29.9-35.2 [facility] Comment on above: Performed By: #### U RTPCR #### [facility] [address] [place] [address] Dr. Sahil Turk MCV (RBC) [Entitic vol] 91.9 fL Normal 81.0-99.0 [facility] Comment on above: Performed By: #### U RTPCR #### [facility] [address] [place] [address] Dr. Sahil Turk MONO # 0.5 103/ul Normal 0.3-0.8 [facility] Comment on above: Performed By: #### U RTPCR #### [facility] [address] [place] [address] Dr. Sahil Turk Monocytes/100 WBC (Bld) 4.6 % Normal 1.7-12.0 [facility] Comment on above: Performed By: #### U RTPCR #### [facility] [address] [place] [address] Dr. Sahil Turk NEUT # 8.3 103/ul Critically high 1.4-6.5 [facility] Comment on above: Performed By: #### U RTPCR #### [facility] [address] [place] [address] Dr. Sahil Turk Neutrophils/100 WBC (Bld) 74.9 % Normal 43.0-75.0 [facility] Comment on above: Performed By: #### U RTPCR #### [facility] [address] [place] [address] Dr. Sahil Turk Platelet mean volume (Bld) [Entitic vol] 9.3 fL Critically low 9.5-13.5 [facility] Comment on above: Performed By: #### U RTPCR #### [facility] [address] [place] [address] Dr. Sahil Turk PLT 222 103/ul Normal 150-450 [facility] Comment on above: Performed By: #### U RTPCR #### [facility] [address] [place] [address] Dr. Sahil Turk RBC 4.20 106/ul Normal 4.20-5.40 [facility] Comment on above: Performed By: #### U RTPCR #### [facility] [address] [place] [address] Dr. Sahil Turk WBC 11.0 103/ul Normal 4.0-11.0 [facility] Comment on above: Performed By: #### U RTPCR #### [facility] [address] [place] [address] Dr. Sahil Turk ER URINE PROFILEon 2 Bilirubin Ql (U) Negative Normal NEGATIVE [facility] Comment on above: Performed By: #### C MP, HSTROPN #### [facility] [address] [place] [address] Dr. Sahil Turk Clarity (U) CLEAR Normal CLEAR [facility] Comment on above: Performed By: #### C MP, HSTROPN #### [facility] [address] [place] [address] Dr. Sahil Turk Color (U) LT. YELLOW Normal YELLOW [facility] Comment on above: Performed By: #### C MP, HSTROPN #### [facility] [address] [address] [address] Sahil HAINES A micrscopic examination will be performed if indicated. Normal [facility] Comment on above: Performed By: #### C MP, HSTROPN #### [facility] [address] [place] [address] Dr. Sahil Turk Glucose Ql (U) Negative Normal NEGATIVE [facility] Comment on above: Performed By: #### C MP, HSTROPN #### [facility] [address] [place] [address] Dr. Sahil Turk Hemoglobin Ql (U) Negative Normal NEGATIVE [facility] Comment on above: Performed By: #### C MP, HSTROPN #### [facility] [address] [place] [address] Dr. Sahil Turk Ketones Ql (U) Negative Normal NEGATIVE [facility] Comment on above: Performed By: #### C MP, HSTROPN #### [facility] [address] [place] [address] Dr. Sahil Turk LEUKOCYTES SMALL Abnormal NEGATIVE [facility] Comment on above: Performed By: #### C MP, HSTROPN #### [facility] [address] [place] [address] Dr. Sahil Turk Nitrite Ql (U) Positive Abnormal NEGATIVE [facility] Comment on above: Performed By: #### C MP, HSTROPN #### [facility] [address] [place] [address] Dr. Sahil Turk pH (U) 7.0 [pH] Normal 5-9 [facility] Comment on above: Performed By: #### C MP, HSTROPN #### [facility] [address] [place] [address] Dr. Sahil Turk SPEC GRAVITY 1.010 Normal 1.005-<=1.0 25 [facility] Comment on above: Performed By: #### C MP, HSTROPN #### [facility] [address] [place] [address] Dr. Sahil Turk UA PROTEIN Negative Normal NEGATIVE/ TRACE [facility] Comment on above: Performed By: #### C JAYY, HSTROPN #### [facility] [address] [place] [address] Dr. Sahil Turk UR MICRO IND INDICATED Normal [facility] Comment on above: Performed By: #### C JAYY, HSTROPN #### [facility] [address] [place] [address] Dr. Sahil Turk Urobilinogen Qn (U) 0.2 {Macie'U}/dL Normal 0.2 - 1. 0 [facility] Comment on above: Performed By: #### C JAYY, HSTROPN #### [facility] [address] [place] [address] Dr. Sahil Turk PROF 14(COMP METB)on 022 Albumin [Mass/Vol] 3.5 g/dL Normal 3.4-5.0 [facility] Comment on above: Performed By: #### C JAYY HSTROPN #### [facility] [address] [place] [address] Dr. Sahil Turk Albumin/Globulin [Mass ratio] 0.9 {ratio} Normal [facility] Comment on above: Performed By: #### C JAYY, HSTROPN #### [facility] [address] [place] [address] Dr. Sahil Turk ALP [Catalytic activity/Vol] 81 U/L Normal 46-116 [facility] Comment on above: Performed By: #### C JAYY, HSTROPN #### [facility] [address] [place] [address] Dr. Sahil Turk ALT [Catalytic activity/Vol] 15 U/L Normal 14-59 [facility] Comment on above: Performed By: #### C JAYY, HSTROPN #### [facility] [address] [place] [address] Dr. Sahil Turk Anion gap [Moles/Vol] 9.7 mmol/L Normal [facility] Comment on above: Performed By: #### C JAYY, HSTROPN #### [facility] [address] [place] [address] Dr. Sahil Turk AST [Catalytic activity/Vol] 20 U/L Normal 15-37 [facility] Comment on above: Performed By: #### C JAYY, HSTROPN #### [facility] [address] [place] [address] Dr. Sahil Turk Bilirubin [Mass/Vol] 0.5 mg/dL Normal 0.2-1.0 [facility] Comment on above: Performed By: #### C JAYY, HSTROPN #### [facility] [address] [address] [address] Sahil Turk Calcium [Mass/Vol] 9.5 mg/dL Normal 8.5-10.1 [facility] Comment on above: Performed By: #### C JAYY, HSTROPN #### [facility] [address] [place] [address] Dr. Sahil Turk Chloride [Moles/Vol] 100 mmol/L Normal 98-107 [facility] Comment on above: Performed By: #### C JAYY, HSTROPN #### [facility] [address] [place] [address] Dr. Sahil Turk CO2 [Moles/Vol] 36.1 mmol/L Critically high 21.0-32.0 [facility] Comment on above: Performed By: #### C JAYY, HSTROPN #### [facility] [address] [place] [address] Dr. Sahil Turk Creatinine [Mass/Vol] 1.67 mg/dL Critically high 0.55-1.02 [facility] Comment on above: Performed By: #### C MP, HSTROPN #### [facility] [address] [place] [address] Dr. Sahil Turk EGFR-AF PAPUA NEW GUINEAN 36 mL/min/1.73m2 Critically low >=60 [facility] Comment on above: Performed By: #### C MP, HSTROPN #### [facility] [address] [place] [address] Dr. Sahil Turk EGFR-NON AF PAPUA NEW GUINEAN 30 mL/min/1.73m2 Critically low >=60 [facility] Comment on above: Performed By: #### C MP, HSTROPN #### [facility] [address] [place] [address] Dr. Sahil Turk Globulin (S) [Mass/Vol] 3.8 g/dL Normal [facility] Comment on above: Performed By: #### C MP, HSTROPN #### [facility] [address] [place] [address] Dr. Sahil Turk Glucose [Mass/Vol] 181 mg/dL Critically high 74-106 [facility] Comment on above: Performed By: #### C MP, HSTROPN #### [facility] [address] [place] [address] Dr. Sahil Turk Potassium [Moles/Vol] 3.8 mmol/L Normal 3.5-5.1 [facility] Comment on above: Performed By: #### C MP, HSTROPN #### [facility] [address] [place] [address] Dr. Sahil Turk Protein [Mass/Vol] 7.3 g/dL Normal 6.4-8.2 [facility] Comment on above: Performed By: #### C MP, HSTROPN #### [facility] [address] [place] [address] Dr. Sahil Turk Sodium [Moles/Vol] 142 mmol/L Normal 136-145 [facility] Comment on above: Performed By: #### C MP, HSTROPN #### [facility] [address] [place] [address] Dr. Sahil Turk Urea nitrogen [Mass/Vol] 18.0 mg/dL Normal 7.0-18.0 [facility] Comment on above: Performed By: #### C MP, HSTROPN #### [facility] [address] [place] [address] Dr. Sahil Turk Urea nitrogen/Creatinine [Mass ratio] 10.8 mg/mg Normal [facility] Comment on above: Performed By: #### C MP, HSTROPN #### [facility] [address] [place] [address] Dr. Sahil Turk PROTIMEon 05-27-2022 INR Coag (PPP) [Relative time] 1.09 {INR} Normal [facility] Comment on above: Performed By: #### U RTPCR #### [facility] [address] [place] [address] Dr. Sahil Turk INR GUIDELINES SEE BELOW Normal [facility] Comment on above: Result Comment: LUIS ANGEL RED INR: 2.0 - 3.0 CONDITIONS NOT LISTED BELOW 2.5 - 3.5 FOR PROSTHETIC HEART VALVE REPLACEMENT 2.5 - 3.5 RECURRENT THROMBOSIS Performed By: #### U RTPCR #### [facility] [address] [place] [address] Dr. Sahil Turk PT Coag (PPP) [Time] 11.7 s Critically high 9.0-11.6 [facility] Comment on above: Performed By: #### U RTPCR #### [facility] [address] [place] [address] Dr. Sahil Turk PTTon 05-27-2022 aPTT Coag (Bld) [Time] 30.6 s Normal 22.3-36.2 [facility] Comment on above: Performed By: #### U RTPCR #### [facility] [address] [place] [address] Dr. Sahil Turk TROPONIN, HIGH SENSITIVITYon 05-27-2022 HSTROP 7.1 pg/mL Normal 4.0-51.3 [facility] Comment on above: Result Comment: CUT- OFF POINTS HAVE BEEN ESTABLISHED BASED ON THE FOURTH UNIVERSAL DEFINITIONS OF MYOCARDIAL INFARCTION. THE UPPER REFERENCE LIMIT (URL) OF TROPONIN, DEFINED THE 99TH PERCENTILE OF cTnI DISTRIBUTION IN A REFERENCE POPULATION, HAS BEEN CONFIRMED THE DECISION THRESHOLD FOR CO DIAGNOSIS. Performed By: #### C MP, HSTROPN #### [facility] [address] [place] [address] Dr. Sahil Turk URINE MICROSCOPIC ONLYon BACTERIA LARGE Abnormal NONE SEEN [facility] Comment on above: Performed By: #### C MP, HSTROPN #### [facility] [address] [place] [address] Dr. Sahil Turk Bacteria identified Cx Nom (U) INDICATED Normal [facility] Comment on above: Performed By: #### C MP, HSTROPN #### [facility] [address] [place] [address] Dr. Sahil Turk CAST NONE SEEN Normal NONE SEEN [facility] Comment on above: Performed By: #### C MP, HSTROPN #### [facility] [address] [address] [address] Sahil Turk Crystals LM Nom (Urine sed) NONE SEEN Normal NONE SEEN [facility] Comment on above: Performed By: #### C MP, HSTROPN #### [facility] [address] [place] [address] Dr. Sahil Turk Epithelial cells LM Ql (Urine sed) RARE Normal NONE SEEN /RARE [facility] Comment on above: Performed By: #### C MP, HSTROPN #### [facility] [address] [place] [address] Dr. Sahil Turk MUCOUS NONE SEEN Normal NONE SEEN [facility] Comment on above: Performed By: #### C MP, HSTROPN #### [facility] [address] [place] [address] Dr. Sahil Turk RBC 0-2 Normal 0-2 [facility] Comment on above: Performed By: #### C MP, HSTROPN #### [facility] [address] [place] [address] Dr. Sahil Turk WBC 0-2 Abnormal NONE SEEN [facility] Comment on above: Performed By: #### C MP, HSTROPN #### [facility] [address] [place] [address] Dr. Sahil Turk XR CHEST 1 Von [...] EDGARD GOMEZ Date: 2022-05-27 21:31 Normal [facility] CULTURE URINEon 03-13-2022 CULTURE URINE Isolate [...] F Trimethoprim/Sulfame thoxazole <=20 S F Normal [facility] Comment on above: Performed By: #### C JAYY HSTROPN #### [facility] [address] [place] [address] Dr. Sahil Turk BNPon 03-11-2022 Natriuretic peptide B (Bld) [Mass/Vol] 449.0 pg/mL Normal <=1,800.0 [facility] Comment on above: Performed By: #### U RTPCR #### [facility] [address] [place] [address] Dr. Sahil Turk CBC AUTO DIFFon 03-11-2022 BASO # 0.0 103/ul Normal 0.0-0.1 [facility] Comment on above: Performed By: #### C JAYY HSTROPN #### [facility] [address] [place] [address] Dr. Sahil Turk Basophils/100 WBC (Bld) 0.6 % Normal 0.2-2.0 [facility] Comment on above: Performed By: #### C JAYY, HSTROPN #### [facility] [address] [place] [address] Dr. Sahil Turk EO # 0.1 103/ul Normal 0.0-0.7 [facility] Comment on above: Performed By: #### C MP, HSTROPN #### [facility] [address] [place] [address] Dr. Sahil Turk Eosinophils/100 WBC (Bld) 2.8 % Normal 0.9-7.0 [facility] Comment on above: Performed By: #### C JAYY, HSTROPN #### [facility] [address] [place] [address] Dr. Sahil Turk Erythrocyte distribution width (RBC) [Ratio] 13.7 % Normal 11.0-15.0 [facility] Comment on above: Performed By: #### C JAYY, HSTROPN #### [facility] [address] [place] [address] Dr. Sahil Turk Hematocrit (Bld) [Volume fraction] 39.2 % Normal 36.0-48.0 [facility] Comment on above: Performed By: #### C JAYY, HSTROPN #### [facility] [address] [place] [address] Dr. Sahil Turk Hemoglobin (Bld) [Mass/Vol] 12.7 g/dL Normal 12.0-16.0 [facility] Comment on above: Performed By: #### C JAYY, HSTROPN #### [facility] [address] [place] [address] Dr. Sahil Turk IG # 0.01 10e3/ul Normal 0.00-0.03 [facility] Comment on above: Performed By: #### C MP, HSTROPN #### [facility] [address] [place] [address] Dr. Sahil Turk IG % 0.2 % Normal 0.0-0.5 [facility] Comment on above: Performed By: #### C MP, HSTROPN #### [facility] [address] [place] [address] Dr. Sahil Turk LYMPH # 1.9 103/ul Normal 1.2-3.8 [facility] Comment on above: Performed By: #### C MP, HSTROPN #### [facility] [facility] [address] [place] [address] Dr. Sahil Turk Lymphocytes/100 WBC (Bld) 37.8 % Normal 20.5-60.0 [facility] Comment on above: Performed By: #### C MP, HSTROPN #### [facility] [address] [place] [address] Dr. Sahil Turk MANUAL DIFF REQ NO Normal [facility] Comment on above: Performed By: #### C MP, HSTROPN #### [facility] [address] [place] [address] Dr. Sahil Turk MCH (RBC) [Entitic mass] 30.5 pg Normal 26.7-34.0 [facility] Comment on above: Performed By: #### C MP, HSTROPN #### [facility] [address] [place] [address] Dr. Sahil Turk MCHC (RBC) [Mass/Vol] 32.4 g/dL Normal 29.9-35.2 [facility] Comment on above: Performed By: #### C MP, HSTROPN #### [facility] [address] [place] [address] Dr. Sahil Turk MCV (RBC) [Entitic vol] 94.0 fL Normal 81.0-99.0 [facility] Comment on above: Performed By: #### C MP, HSTROPN #### [facility] [address] [place] [address] Dr. Sahil Turk MONO # 0.4 103/ul Normal 0.3-0.8 [facility] Comment on above: Performed By: #### C MP, HSTROPN #### [facility] [address] [place] [address] Dr. Sahil Turk Monocytes/100 WBC (Bld) 7.0 % Normal 1.7-12.0 [facility] Comment on above: Performed By: #### C MP, HSTROPN #### [facility] [address] [place] [address] Dr. Sahil Turk NEUT # 2.6 103/ul Normal 1.4-6.5 [facility] Comment on above: Performed By: #### C JAYY, HSTROPN #### [facility] [address] [place] [address] Dr. Sahil Turk Neutrophils/100 WBC (Bld) 51.6 % Normal 43.0-75.0 [facility] Comment on above: Performed By: #### C JAYY, HSTROPN #### [facility] [address] [place] [address] Dr. Sahil Turk Platelet mean volume (Bld) [Entitic vol] 9.9 fL Normal 9.5-13.5 [facility] Comment on above: Performed By: #### C JAYY, HSTROPN #### [facility] [address] [place] [address] Dr. Sahil Turk PLT 220 103/ul Normal 150-450 [facility] Comment on above: Performed By: #### C JAYY, HSTROPN #### [facility] [address] [place] [address] Dr. Sahil Turk RBC 4.17 106/ul Critically low 4.20-5.[address] [facility] Comment on above: Performed By: #### C JAYY, HSTROPN #### [facility] [address] [place] [address] Dr. Sahil Turk WBC 5.0 103/ul Normal 4.0-11.0 [facility] Comment on above: Performed By: #### C MP, HSTROPN #### [facility] [address] [place] [address] Dr. Sahil Turk ER URINE PROFILEon 2 Bilirubin Ql (U) Negative Normal NEGATIVE [facility] Comment on above: Performed By: #### M G, RENAL, URIC #### [facility] [address] [place] [address] Dr. Sahil Turk Clarity (U) CLEAR Normal CLEAR [facility] Comment on above: Performed By: #### M G, RENAL, URIC #### [facility] [address] [place] [address] Dr. Sahil Turk Color (U) LT. YELLOW Normal YELLOW [facility] Comment on above: Performed By: #### M G, RENAL, URIC #### [facility] [address] [place] [address] Dr. Sahil HAINES A micrscopic examination will be performed if indicated. Normal [facility] Comment on above: Performed By: #### M G, RENAL, URIC #### [facility] [address] [place] [address] Dr. Sahil Turk Glucose Ql (U) Negative Normal NEGATIVE [facility] Comment on above: Performed By: #### M G, RENAL, URIC #### [facility] [address] [place] [address] Dr. Sahil Turk Hemoglobin Ql (U) Negative Normal NEGATIVE [facility] Comment on above: Performed By: #### M G, RENAL, URIC #### [facility] [address] [place] [address] Dr. Sahil Turk Ketones Ql (U) Negative Normal NEGATIVE [facility] Comment on above: Performed By: #### M G, RENAL, URIC #### [facility] [address] [place] [address] Dr. Sahil Turk LEUKOCYTES SMALL Abnormal NEGATIVE [facility] Comment on above: Performed By: #### M G, RENAL, URIC #### [facility] [address] [place] [address] Dr. Sahil Turk Nitrite Ql (U) Positive Abnormal NEGATIVE [facility] Comment on above: Performed By: #### M G, RENAL, URIC #### [facility] [address] [place] [address] Dr. Sahil Turk pH (U) 6.5 [pH] Normal 5-9 [facility] Comment on above: Performed By: #### M G, RENAL, URIC #### [facility] [address] [place] [address] Dr. Sahil Turk SPEC GRAVITY 1.010 Normal 1.005-<=1.0 25 [facility] Comment on above: Performed By: #### M G, RENAL, URIC #### [facility] [address] [place] [address] Dr. Sahil Turk UA PROTEIN Negative Normal NEGATIVE/ TRACE [facility] Comment on above: Performed By: #### M G, RENAL, URIC #### [facility] [address] [place] [address] Dr. Sahil Turk UR MICRO IND INDICATED Normal [facility] Comment on above: Performed By: #### M G, RENAL, URIC #### [facility] [address] [place] [address] Dr. Sahil Turk Urobilinogen Qn (U) 0.2 {Macie'U}/dL Normal 0.2 - 1. 0 [facility] Comment on above: Performed By: #### M G, RENAL, URIC #### [facility] [address] [place] [address] Dr. Sahil Turk LIPASEon 03-11-2022 Lipase [Catalytic activity/Vol] 40.0 U/L Critically low 73.0-393.0 [facility] Comment on above: Performed By: #### U RTPCR #### [facility] [address] [place] [address] Dr. Sahil Turk PROF 14(COMP METB)on 022 Albumin [Mass/Vol] 3.5 g/dL Normal 3.4-5.0 [facility] Comment on above: Performed By: #### M G, RENAL, URIC #### [facility] [address] [place] [address] Dr. Sahil Turk Albumin/Globulin [Mass ratio] 1.1 {ratio} Normal [facility] Comment on above: Performed By: #### M G, RENAL, URIC #### [facility] [address] [place] [address] Dr. Sahil Turk ALP [Catalytic activity/Vol] 69 U/L Normal 46-116 [facility] Comment on above: Performed By: #### M G, RENAL, URIC #### [facility] [address] [place] [address] Dr. Sahil Turk ALT [Catalytic activity/Vol] 18 U/L Normal 14-59 [facility] Comment on above: Performed By: #### M G, RENAL, URIC #### [facility] [address] [address] [address] Sahil Turk Anion gap [Moles/Vol] 10.6 mmol/L Normal [facility] Comment on above: Performed By: #### M G, RENAL, URIC #### [facility] [address] [address] [address] Sahil Turk AST [Catalytic activity/Vol] 21 U/L Normal 15-37 [facility] Comment on above: Performed By: #### M G, RENAL, URIC #### [facility] [address] [place] [address] Dr. Sahil Turk Bilirubin [Mass/Vol] 0.4 mg/dL Normal 0.2-1.0 [facility] Comment on above: Performed By: #### M G, RENAL, URIC #### [facility] [address] [place] [address] Dr. Sahil Turk Calcium [Mass/Vol] 9.6 mg/dL Normal 8.5-10.1 [facility] Comment on above: Performed By: #### M G, RENAL, URIC #### [facility] [address] [place] [address] Dr. Sahil Turk Chloride [Moles/Vol] 102 mmol/L Normal 98-107 [facility] Comment on above: Performed By: #### M G, RENAL, URIC #### [facility] [address] [place] [address] Dr. Sahil Turk CO2 [Moles/Vol] 33.1 mmol/L Critically high 21.0-32.0 [facility] Comment on above: Performed By: #### M G, RENAL, URIC #### [facility] [address] [place] [address] Dr. Sahil Turk Creatinine [Mass/Vol] 1.40 mg/dL Critically high 0.55-1.02 [facility] Comment on above: Performed By: #### M G, RENAL, URIC #### [facility] [address] [place] [address] Dr. Sahil Turk EGFR-AF PAPUA [place] GUINEAN 44 mL/min/1.73m2 Critically low >=60 [facility] Comment on above: Performed By: #### M G, RENAL, URIC #### [facility] [address] [address] [address] Sahil Turk EGFR-NON AF PAPUA [place] 36 mL/min/1.73m2 Critically low >=60 [facility] Comment on above: Performed By: #### M G, RENAL, URIC #### [facility] [address] [address] [address] Sahil Turk Globulin (S) [Mass/Vol] 3.3 g/dL Normal [facility] Comment on above: Performed By: #### M G, RENAL, URIC #### [facility] [address] [place] [address] Dr. Sahil Turk Glucose [Mass/Vol] 107 mg/dL Critically high 74-106 [facility] Comment on above: Performed By: #### M G, RENAL, URIC #### [facility] [address] [place] [address] Dr. Sahil Turk Potassium [Moles/Vol] 3.7 mmol/L Normal 3.5-5.1 [facility] Comment on above: Performed By: #### M G, RENAL, URIC #### [facility] [address] [place] [address] Dr. Sahil Turk Protein [Mass/Vol] 6.8 g/dL Normal 6.4-8.2 [facility] Comment on above: Performed By: #### M G, RENAL, URIC #### [facility] [address] [place] [address] Dr. Sahil Turk Sodium [Moles/Vol] 142 mmol/L Normal 136-145 [facility] Comment on above: Performed By: #### M G, RENAL, URIC #### [facility] [address] [place] [address] Dr. Sahil Turk Urea nitrogen [Mass/Vol] 16.0 mg/dL Normal 7.0-18.0 [facility] Comment on above: Performed By: #### M G, RENAL, URIC #### [facility] [address] [address] [address] Sahil Turk Urea nitrogen/Creatinine [Mass ratio] 11.4 mg/mg Normal [facility] Comment on above: Performed By: #### M G, RENAL, URIC #### [facility] [address] [address] [address] Sahil Turk PROTIMEon 03-11-2022 INR Coag (PPP) [Relative time] 1.03 {INR} Normal [facility] Comment on above: Performed By: #### C MP, HSTROPN #### [facility] [address] [place] [address] Dr. Sahil Turk INR GUIDELINES SEE BELOW Normal [facility] Comment on above: Result Comment: LUIS ANGEL RED INR: 2.0 - 3.0 CONDITIONS NOT LISTED BELOW 2.5 - 3.5 FOR PROSTHETIC HEART VALVE REPLACEMENT 2.5 - 3.5 RECURRENT THROMBOSIS Performed By: #### C MP, HSTROPN #### [facility] [address] [place] [address] Dr. Sahil Turk PT Coag (PPP) [Time] 11.1 s Normal 9.0-11.6 [facility] Comment on above: Performed By: #### C MP, HSTROPN #### [facility] [address] [place] [address] Dr. Sahil Turk PTTon 03-11-2022 aPTT Coag (Bld) [Time] 25.4 s Normal 22.3-36.2 [facility] Comment on above: Performed By: #### C MP, HSTROPN #### [facility] [address] [place] [address] Dr. Sahil Turk TROPONIN, HIGH SENSITIVITYon 03-11-2022 HSTROP 7.5 pg/mL Normal 4.0-51.3 [facility] Comment on above: Result Comment: CUT- OFF POINTS HAVE BEEN ESTABLISHED BASED ON THE FOURTH UNIVERSAL DEFINITIONS OF MYOCARDIAL INFARCTION. THE UPPER REFERENCE LIMIT (URL) OF TROPONIN, DEFINED THE 99TH PERCENTILE OF cTnI DISTRIBUTION IN A REFERENCE POPULATION, HAS BEEN CONFIRMED THE DECISION THRESHOLD FOR CO DIAGNOSIS. Performed By: #### M G, RENAL, URIC #### [facility] [address] [place] [address] Dr. Sahil Turk HSTROP 7.9 pg/mL Normal 4.0-51.3 [facility] Comment on above: Result Comment: CUT- OFF POINTS HAVE BEEN ESTABLISHED BASED ON THE FOURTH UNIVERSAL DEFINITIONS OF MYOCARDIAL INFARCTION. THE UPPER REFERENCE LIMIT (URL) OF TROPONIN, DEFINED THE 99TH PERCENTILE OF cTnI DISTRIBUTION IN A REFERENCE POPULATION, HAS BEEN CONFIRMED THE DECISION THRESHOLD FOR CO DIAGNOSIS. Performed By: #### U RTPCR #### [facility] [address] [place] [address] Dr. Sahil Turk URINE MICROSCOPIC ONLYon BACTERIA SMALL Abnormal NONE SEEN [facility] Comment on above: Performed By: #### M G, RENAL, URIC #### [facility] [address] [place] [address] Dr. Sahil Turk Bacteria identified Cx Nom (U) INDICATED Normal [facility] Comment on above: Performed By: #### M G, RENAL, URIC #### [facility] [address] [place] [address] Dr. Sahil Turk CAST NONE SEEN Normal NONE SEEN [facility] Comment on above: Performed By: #### M G, RENAL, URIC #### [facility] [address] [place] [address] Dr. Sahil Turk Crystals LM Nom (Urine sed) NONE SEEN Normal NONE SEEN [facility] Comment on above: Performed By: #### M G, RENAL, URIC #### [facility] [address] [place] [address] Dr. Sahil Turk Epithelial cells LM Ql (Urine sed) RARE Normal NONE SEEN /RARE [facility] Comment on above: Performed By: #### M G, RENAL, URIC #### [facility] [address] [place] [address] Dr. Sahil Turk MUCOUS NONE SEEN Normal NONE SEEN [facility] Comment on above: Performed By: #### M G, RENAL, URIC #### [facility] [address] [place] [address] Dr. Sahil Turk RBC 0-2 Normal 0-2 [facility] Comment on above: Performed By: #### M G, RENAL, URIC #### [facility] [address] [place], [place] [address] Dr. Sahil Turk WBC 5-10 Abnormal NONE SEEN [facility] Comment on above: Performed By: #### M G, RENAL, URIC #### [facility] [address] [place], [place] [address] Dr. Sahil Turk XR CHEST 1 Von [...] HAWK MUNGUIA Date: 2022-03-11 14:27 Normal [facility] CT CSPINE WO CONon 2 CT [...] by: LEISA SALGUEROH Date: 2022-02-22 08:12 Normal [facility] CT HEAD WO CONon 02-21-2022 CT [...] by: ANDRADE LEWIS Date: 2022-02-21 16:40 Normal [facility] CT LSPINE WO CONon 2 CT LSPINE WO CON EXAMINATION: CT LSPINE WO CON, 02/21/2022, 3:54 PM EDT HISTORY: Pain COMPARISON: None. TECHNIQUE: CT of the lumbar spine was performed without IV contrast. CT dose reduction technique was used, including Automated Exposure Control. FINDINGS: GR[employer]ES 7 AND [employer] RADIOGRAPH: Unremarkable. MINERALIZATION: Probable mild osteopenia. VERTEBRAL [...] by: LINDA MCDANIEL Date: 2022-02-21 17:26 Normal [facility] XR HIP LT 2 3V W [...] by: ANDRADE LEWIS Date: 2022-02-21 16:51 Normal [facility] Progress Noteson 02-18-2022 [employer] Authentication Interface Message Text EMERGENCY TRIAGE, TREAT AND TRANSPORT (ET3) DOCUMENTATION OF TELEHEALTH VISIT Date / Time: 01/08/2022 / 0345am Name: Suhas Patterson : 1945 SSN: [id number] EMS Agency: [facility] [x] Verbal consent obtained [] [...] Completed by: Madai Webb MD Normal [facility] [employer] ECHOCARDIO M/2D COMPLETEon 0 01-06-2022 ECHOCARDIO M/2D COMPLETE Patient: NADIA PATTERSON Exam Date: 01/06/2022 : 1945 Gender:F Ordering : MEI DAS Admission #: [id number] Family : DR HARPAL HAYES M.D. Order #: [id number] CLICK HERE TO VIEW EXAM ECHOCARDIOGRAM REPORT [...] Herrera M.D. on 01/06/2022 at 17:18 Normal [facility] PTH INTACTon 12-11-2021 PTH, Intact 31 pg/mL Normal 15-65 [facility] Comment on above: Performed By: #### C MP, HSTROPN #### [facility] [address] [place] [address] Dr. Sahil Turk FERRITINon 12-10-2021 Ferritin [Mass/Vol] 53.0 ng/mL Normal 8.0-252.[address] [facility] Comment on above: Performed By: #### C MP, HSTROPN #### [facility] [address] [place] [address] Dr. Sahil Turk HEMOGRAM AND PLATELon 2021 Hematocrit (Bld) [Volume fraction] 38.4 % Normal 36.0-48.0 [facility] Comment on above: Performed By: #### M G, RENAL, URIC #### [facility] [address] [place] [address] Dr. Sahil Turk Hemoglobin (Bld) [Mass/Vol] 12.5 g/dL Normal 12.0-16.0 [facility] Comment on above: Performed By: #### M G, RENAL, URIC #### [facility] [address] [place] [address] Dr. Sahil Turk MCH (RBC) [Entitic mass] 29.4 pg Normal 26.7-34.0 [facility] Comment on above: Performed By: #### M G, RENAL, URIC #### [facility] [address] [place] [address] Dr. Sahil Turk MCHC (RBC) [Mass/Vol] 32.6 g/dL Normal 29.9-35.2 [facility] Comment on above: Performed By: #### M G, RENAL, URIC #### [facility] [address] [address] [address] Sahil Turk MCV (RBC) [Entitic vol] 90.4 fL Normal 81.0-99.0 [facility] Comment on above: Performed By: #### M G, RENAL, URIC #### [facility] [address] [address] [address] Sahil Turk PLT 263 103/ul Normal 150-450 [facility] Comment on above: Performed By: #### M G, RENAL, URIC #### [facility] [address] [address] [address] Sahil Turk RBC 4.25 106/ul Normal 4.20-5.40 [facility] Comment on above: Performed By: #### M G, RENAL, URIC #### [facility] [address] [address] [address] Sahil Turk WBC 7.1 103/ul Normal 4.0-11.0 [facility] Comment on above: Performed By: #### M G, RENAL, URIC #### [facility] [address] [address] [address] Sahil Turk IRON AND TIBCon 12-10-2021 % SATURATION 20.3 % Normal [facility] Comment on above: Performed By: #### C MP, HSTROPN #### [facility] [address] [address] [address] Sahil Turk Iron [Mass/Vol] 61.0 ug/dL Normal 50.0-170.[address] [facility] Comment on above: Performed By: #### C MP, HSTROPN #### [facility] [address] [address] [address] Sahil Turk TIBC DIRECT 300.0 ug/dL Normal 250.0-450.0 [facility] Comment on above: Performed By: #### C MP, HSTROPN #### [facility] [address] [address] [address] Sahil Turk MAGNESIUMon 12-10-2021 Magnesium [Mass/Vol] 1.7 mg/dL Critically low 1.8-2.4 [facility] Comment on above: Performed By: #### M G, RENAL, URIC #### [facility] [address] [address] [address] Sahil Turk RENAL FUNCTION PANELon 12-10 Albumin [Mass/Vol] 3.7 g/dL Normal 3.4-5.0 [facility] Comment on above: Performed By: #### M G, RENAL, URIC #### [facility] [address] [address] [address] Sahil Turk Calcium [Mass/Vol] 9.6 mg/dL Normal 8.5-10.1 [facility] Comment on above: Performed By: #### M G, RENAL, URIC #### [facility] [address] [place] [address] Dr. Sahil Turk Chloride [Moles/Vol] 102 mmol/L Normal 98-107 [facility] Comment on above: Performed By: #### M G, RENAL, URIC #### [facility] [address] [place] [address] Dr. Sahil Turk CO2 [Moles/Vol] 28.3 mmol/L Normal 21.0-32.0 [facility] Comment on above: Performed By: #### M G, RENAL, URIC #### [facility] [address] [place] [address] Dr. Sahil Turk Creatinine [Mass/Vol] 1.42 mg/dL Critically high 0.55-1.02 [facility] Comment on above: Performed By: #### M G, RENAL, URIC #### [facility] [address] [place] [address] Dr. Sahil Turk EGFR-AF PAPUA NEW GUINEAN 43 mL/min/1.73m2 Critically low >=60 [facility] Comment on above: Performed By: #### M G, RENAL, URIC #### [facility] [address] [place] [address] Dr. Sahil Turk EGFR-NON AF PAPUA [place] GU[place]AN 36 mL/min/1.73m2 Critically low >=60 [facility] Comment on above: Performed By: #### M G, RENAL, URIC #### [facility] [address] [address] [address] Sahil Turk Glucose [Mass/Vol] 112 mg/dL Critically high 74-106 [facility] Comment on above: Performed By: #### M G, RENAL, URIC #### [facility] [address] [address] [address] Sahil Turk Phosphate [Mass/Vol] 3.4 mg/dL Normal 2.6-4.7 [facility] Comment on above: Performed By: #### M G, RENAL, URIC #### [facility] [address] [address] [address] Sahil Turk Potassium [Moles/Vol] 3.9 mmol/L Normal 3.5-5.1 [facility] Comment on above: Performed By: #### M G, RENAL, URIC #### [facility] [address] [address] [address] Sahil Turk Sodium [Moles/Vol] 140 mmol/L Normal 136-145 [facility] Comment on above: Performed By: #### M G, RENAL, URIC #### [facility] [address] [address] [address] Sahil Turk Urea nitrogen [Mass/Vol] 29.0 mg/dL Critically high 7.0-18 .0 [facility] Comment on above: Performed By: #### M G, RENAL, URIC #### [facility] [address] [address] [address] Sahil Turk UA RANDOM W/MICROSCOPICon BACTERIA NONE SEEN Normal NONE SEEN [facility] Comment on above: Performed By: #### M G, RENAL, URIC #### [facility] [address] [address] [address] Sahil Turk Bilirubin Ql (U) Negative Normal NEGATIVE [facility] Comment on above: Performed By: #### M G, RENAL, URIC #### [facility] [address] [place] [address] Dr. Sahil Turk CAST NONE SEEN Normal NONE SEEN [facility] Comment on above: Performed By: #### M G, RENAL, URIC #### [facility] [address] [address] [address] Sahil Turk Clarity (U) CLEAR Normal CLEAR [facility] Comment on above: Performed By: #### M G, RENAL, URIC #### [facility] [address] [place] [address] Dr. Sahil Turk Color (U) LT. YELLOW Normal YELLOW [facility] Comment on above: Performed By: #### M G, RENAL, URIC #### [facility] [address] [address] [address] Sahil Turk Crystals LM Nom (Urine sed) NONE SEEN Normal NONE SEEN [facility] Comment on above: Performed By: #### M G, RENAL, URIC #### [facility] [address] [place] [address] Dr. Sahil Turk Epithelial cells LM Ql (Urine sed) NONE SEEN Normal NONE SEEN /RARE [facility] Comment on above: Performed By: #### M G, RENAL, URIC #### [facility] [address] [place] [address] Dr. Sahil Turk Glucose Ql (U) Negative Normal NEGATIVE [facility] Comment on above: Performed By: #### M G, RENAL, URIC #### [facility] [address] [place] [address] Dr. Sahil Turk Hemoglobin Ql (U) Negative Normal NEGATIVE The [facility] Comment on above: Performed By: #### M G, RENAL, URIC #### [facility] [address] [address] [address] Sahil Turk Ketones Ql (U) Negative Normal NEGATIVE [facility] Comment on above: Performed By: #### M G, RENAL, URIC #### [facility] [address] [place] [address] Dr. Sahil Turk LEUKOCYTES Negative Normal NEGATIVE [facility] Comment on above: Performed By: #### M G, RENAL, URIC #### [facility] [address] [place] [address] Dr. Sahil Turk MUCOUS NONE SEEN Normal NONE SEEN [facility] Comment on above: Performed By: #### M G, RENAL, URIC #### [facility] [address] [address] [address] Sahil Turk Nitrite Ql (U) Negative Normal NEGATIVE [facility] Comment on above: Performed By: #### M G, RENAL, URIC #### [facility] [address] [address] [address] Sahil Turk pH (U) 7.0 [pH] Normal 5-9 [facility] Comment on above: Performed By: #### M G, RENAL, URIC #### [facility] [address] [address] [address] Sahil Turk RBC NONE SEEN Abnormal 0-2 [facility] Comment on above: Performed By: #### M G, RENAL, URIC #### [facility] [address] [place] [address] Dr. Sahil Turk SPEC GRAVITY 1.010 Normal 1.005-<=1.0 25 [facility] Comment on above: Performed By: #### M G, RENAL, URIC #### [facility] [address] [place] [address] Dr. Sahil Turk UA PROTEIN Negative Normal NEGATIVE/ TRACE [facility] Comment on above: Performed By: #### M G, RENAL, URIC #### [facility] [address] [place] [address] Dr. Sahil Turk Urobilinogen Qn (U) 0.2 {Macie'U}/dL Normal 0.2 - 1. 0 [facility] Comment on above: Performed By: #### M G, RENAL, URIC #### [facility] [address] [place] [address] Dr. Sahil Turk WBC NONE SEEN Normal NONE SEEN [facility] Comment on above: Performed By: #### M G, RENAL, URIC #### [facility] [address] [place] [address] Dr. Sahil Turk URIC ACID SERUMon 12-10-2021 Urate [Mass/Vol] 6.6 mg/dL Critically high 2.6-6.0 [facility] Comment on above: Performed By: #### M G, RENAL, URIC #### [facility] [address] [address] [address] Sahil Turk URINE T PROTEIN CREAT RATIOo n 12-10-2021 UR TOTAL PROTEIN <6.0 Normal <=12.0 [facility] Comment on above: Performed By: #### U RTPCR #### [facility] [address] [address] [address] Sahil Turk URINE CREAT <13.00 Critically low 20.00-300.0 0 [facility] Comment on above: Performed By: #### U RTPCR #### [facility] [address] [address] [address] Sahil Turk VITAMIN D 25 OHon 12-10-2021 VIT D 25-OH 91.7 ng/mL Normal [facility] Comment on above: Performed By: #### C MP, HSTROPN #### [facility] [address] [place] [address] Dr. Sahil Turk VIT D RANGES SEE BELOW Normal [facility] Comment on above: Result Comment: <20 ng/mL Vit D deficient 20 - <30 ng/mL Vit D insufficient 30 - 100 ng/mL Vit D sufficient >100 ng/mL Potential Toxicity Performed By: #### C JAYY, HSTROPN #### [facility] [address] [place] [address] Dr. Sahil Turk US KEVIN DOP LEG [...] by: LINDA REED Date: 2021-11-16 16:33 Normal [facility] FERRITINon 06-13-2021 Ferritin [Mass/Vol] 44 ng/mL Normal 15-[address] [facility] Comment on above: Performed By: #### U RTPCR #### [facility] [address] [address] [address] Sahil Turk PTH INTACTon 06-13-2021 PTH, Intact 53 pg/mL Normal 15-65 [facility] Comment on above: Performed By: #### P THINT #### [facility] [address] [place] [address] Dr. Sahil Turk VIT D 25-OH [facility] 2021 Vitamin D, 25-Hydroxy 50.5 ng/mL Normal 30.0-100.0 [facility] Comment on above: Result Comment: Barbie min D deficiency has been defined by the [place] [employer] and an Endocrine Society practice guideline as a level of serum 25-OH vitamin D less than 20 ng/mL (1,2). The Endocrine Society went on to further define vitamin D insufficiency as a level between 21 and 29 ng/mL (2). 1. IOM ([place] [employer]). 2010. Dietary reference intakes for calcium and D. [place]: The National Academies Press. 2. Benjamín MF, Vikram NC, Kira HERNANDEZ, et al. Evaluation, treatment, and prevention of vitamin D deficiency: an Endocrine Society clinical practice guideline. JCEM. 2010; 96(7):1911-30. Performed By: #### M G, RENAL, URIC #### [facility] [address] [place] [address] Dr. Sahil Turk HEMOGRAM AND PLATELon 2021 Hematocrit (Bld) [Volume fraction] 37.7 % Normal 36.0-48.0 [facility] Comment on above: Performed By: #### M G, RENAL, URIC #### [facility] [address] [place] [address] Dr. Sahil Turk Hemoglobin (Bld) [Mass/Vol] 12.2 g/dL Normal 12.0-16.0 [facility] Comment on above: Performed By: #### M G, RENAL, URIC #### [facility] [address] [place] [address] Dr. Sahil Turk MCH (RBC) [Entitic mass] 29.9 pg Normal 26.7-34.0 [facility] Comment on above: Performed By: #### M G, RENAL, URIC #### [facility] [address] [address] [address] Sahil Turk MCHC (RBC) [Mass/Vol] 32.4 g/dL Normal 29.9-35.2 [facility] Comment on above: Performed By: #### M G, RENAL, URIC #### [facility] [address] [address] [address] Sahil Turk MCV (RBC) [Entitic vol] 92.4 fL Normal 81.0-99.0 [facility] Comment on above: Performed By: #### M G, RENAL, URIC #### [facility] [address] [address] [address] Sahil Turk PLT 246 103/ul Normal 150-450 [facility] Comment on above: Performed By: #### M G, RENAL, URIC #### [facility] [address] [place] [address] Dr. Sahil Turk RBC 4.08 106/ul Critically low 4.20-5.40 [facility] Comment on above: Performed By: #### M G, RENAL, URIC #### [facility] [address] [address] [address] Sahil Turk WBC 5.7 103/ul Normal 4.0-11.0 [facility] Comment on above: Performed By: #### M G, RENAL, URIC #### [facility] [address] [address] [address] Sahil Turk IRON AND TIBCon 06-12-2021 % SATURATION 18.3 % Normal [facility] Comment on above: Performed By: #### U RTPCR #### [facility] [address] [address] [address] Sahil Turk Iron [Mass/Vol] 54.0 ug/dL Normal 37.0-170.[address] [facility] Comment on above: Performed By: #### U RTPCR #### [facility] [address] [place] [address] Dr. Sahil Turk TIBC DIRECT 295.0 ug/dL Normal 261.0-497.0 [facility] Comment on above: Performed By: #### U RTPCR #### [facility] [address] [address] [address] Sahil Turk MAGNESIUMon 06-12-2021 Magnesium [Mass/Vol] 1.9 mg/dL Normal 1.6-2.3 [facility] Comment on above: Performed By: #### R ENAL, URIC, MG #### [facility] [address] [place] [address] Dr. Sahil Turk RENAL FUNCTION PANELon 06-12 Albumin [Mass/Vol] 3.7 g/dL Normal 3.5-5.0 [facility] Comment on above: Performed By: #### R ENAL, URIC, MG #### [facility] [address] [place] [address] Dr. Sahil Turk Calcium [Mass/Vol] 9.7 mg/dL Normal 8.4-10.2 [facility] Comment on above: Performed By: #### R ENAL, URIC, MG #### [facility] [address] [place] [address] Dr. Sahil Turk Chloride [Moles/Vol] 103 mmol/L Normal 98-107 [facility] Comment on above: Performed By: #### R ENAL, URIC, MG #### [facility] [address] [place] [address] Dr. Sahil Turk CO2 [Moles/Vol] 32.0 mmol/L Critically high 22.0-30.0 [facility] Comment on above: Performed By: #### R ENAL, URIC, MG #### [facility] [address] [place] [address] Dr. Sahil Turk Creatinine [Mass/Vol] 1.42 mg/dL Critically high 0.52-1.04 [facility] Comment on above: Performed By: #### R ENAL, URIC, MG #### [facility] [address] [place] [address] Dr. Sahil Turk EGFR-AF PAPUA NEW GUINEAN 43 mL/min/1.73m2 Critically low >=60 [facility] Comment on above: Performed By: #### R ENAL, URIC, MG #### [facility] [address] [place] [address] Dr. Sahil Turk EGFR-NON AF PAPUA [place] 36 mL/min/1.73m2 Critically low >=60 [facility] Comment on above: Performed By: #### R ENAL, URIC, MG #### [facility] [address] [place] [address] Dr. Sahil Turk Glucose [Mass/Vol] 101 mg/dL Normal 74-106 [facility] Comment on above: Performed By: #### R ENAL, URIC, MG #### [facility] [address] [place] [address] Dr. Sahil Turk Phosphate [Mass/Vol] 3.3 mg/dL Normal 2.5-4.5 [facility] Comment on above: Performed By: #### R ENAL, URIC, MG #### [facility] [address] [place] [address] Dr. Sahil Turk Potassium [Moles/Vol] 4.1 mmol/L Normal 3.4-5.0 [facility] Comment on above: Performed By: #### R ENAL, URIC, MG #### [facility] [address] [place] [address] Dr. Sahil Turk Sodium [Moles/Vol] 142 mmol/L Normal 137-145 [facility] Comment on above: Performed By: #### R ENAL, URIC, MG #### [facility] [address] [address] [address] Sahil Turk Urea nitrogen [Mass/Vol] 19.0 mg/dL Critically high 7.0-17 .0 [facility] Comment on above: Performed By: #### R ENAL, URIC, MG #### [facility] [address] [place] [address] Dr. Sahil Turk UA RANDOM W/MICROSCOPICon BACTERIA LARGE Abnormal NONE SEEN [facility] Comment on above: Performed By: #### M G, RENAL, URIC #### [facility] [address] [place] [address] Dr. Sahil Turk Bilirubin Ql (U) Negative Normal NEGATIVE [facility] Comment on above: Performed By: #### M G, RENAL, URIC #### [facility] [address] [address] [address] Sahil Turk CAST NONE SEEN Normal NONE SEEN [facility] Comment on above: Performed By: #### M G, RENAL, URIC #### [facility] [address] [address] [address] Sahil Turk Clarity (U) SL CLOUDY Abnormal CLEAR [facility] Comment on above: Performed By: #### M G, RENAL, URIC #### [facility] [address] [address] [address] Sahil Turk Color (U) LT. YELLOW Normal YELLOW [facility] Comment on above: Performed By: #### M G, RENAL, URIC #### [facility] [address] [place] [address] Dr. Sahil Turk Crystals LM Nom (Urine sed) NONE SEEN Normal NONE SEEN [facility] Comment on above: Performed By: #### M G, RENAL, URIC #### [facility] [address] [place] [address] Dr. Sahil Turk Epithelial cells LM Ql (Urine sed) RARE Normal NONE SEEN /RARE [facility] Comment on above: Performed By: #### M G, RENAL, URIC #### [facility] [address] [place] [address] Dr. Sahil Turk Glucose Ql (U) Negative Normal NEGATIVE [facility] Comment on above: Performed By: #### M G, RENAL, URIC #### [facility] [address] [address] [address] Sahil Turk Hemoglobin Ql (U) Negative Normal NEGATIVE [facility] Comment on above: Performed By: #### M G, RENAL, URIC #### [facility] [address] [address] [address] Sahil Turk Ketones Ql (U) Negative Normal NEGATIVE [facility] Comment on above: Performed By: #### M G, RENAL, URIC #### [facility] [address] [address] [address] Sahil Turk LEUKOCYTES SMALL Abnormal NEGATIVE [facility] Comment on above: Performed By: #### M G, RENAL, URIC #### [facility] [address] [address] [address] Sahil Turk MUCOUS NONE SEEN Normal NONE SEEN [facility] Comment on above: Performed By: #### M G, RENAL, URIC #### [facility] [address] [address] [address] Sahil Turk Nitrite Ql (U) Positive Abnormal NEGATIVE [facility] Comment on above: Performed By: #### M G, RENAL, URIC #### [facility] [address] [place] [address] Dr. Sahil Turk pH (U) 8.0 [pH] Normal 5-9 [facility] Comment on above: Performed By: #### M G, RENAL, URIC #### [facility] [address] [place] [address] Dr. Sahil Turk RBC 0-2 Normal 0-2 [facility] Comment on above: Performed By: #### M G, RENAL, URIC #### [facility] [address] [place] [address] Dr. Sahil Turk SPEC GRAVITY 1.015 Normal 1.005-<=1.0 25 [facility] Comment on above: Performed By: #### M G, RENAL, URIC #### [facility] [address] [place] [address] Dr. Sahil Turk UA PROTEIN Negative Normal NEGATIVE/ TRACE [facility] Comment on above: Performed By: #### M G, RENAL, URIC #### [facility] [address] [address] [address] Sahil Turk Urobilinogen Qn (U) 0.2 {Macie'U}/dL Normal 0.2 - 1. 0 [facility] Comment on above: Performed By: #### M G, RENAL, URIC #### [facility] [address] [place] [address] Dr. Sahil Turk WBC 10-20 Abnormal NONE SEEN [facility] Comment on above: Performed By: #### M G, RENAL, URIC #### [facility] [address] [address] [address] Sahil Turk URIC ACID SERUMon 06-12-2021 Urate [Mass/Vol] 7.7 mg/dL Critically high 2.5-6.2 [facility] Comment on above: Performed By: #### R ENAL, URIC, MG #### [facility] [address] [address] [address] Sahil Turk URINE T PROTEIN CREAT RATIOo n 06-12-2021 Protein (U) [Mass/Vol] 24.9 mg/dL Critically high <=12.0 [facility] Comment on above: Performed By: #### C JAYY, HSTROPN #### [facility] [address] [address] [address] Sahil Turk UR PROT CREAT RAT 0.33 Normal [facility] Comment on above: Performed By: #### C JAYY, HSTROPN #### [facility] [address] [address] [address] Sahil Turk URINE CREAT 76.21 mg/dL Normal 20.00-300.0 0 [facility] Comment on above: Performed By: #### C JAYY, HSTROPN #### [facility] [address] [address] [address] Sahil Turk Vital Signs Date Time Vital Sign Value Performing Clinician Facility 04-06-2024 18:18-0400 Hourly Rounding Ronobir AMPARO [facility] 04-06-2024 18:18-0400 Promise to Return Ronobir AMPARO [facility] 04-06-2024 17:21-0400 Diastolic blood pressure 82 mm[Hg] Ronobir AMPARO [facility] 04-06-2024 17:21-0400 Systolic blood pressure 156 mm[Hg] Ronobir AMPARO [facility] 04-06-2024 17:19-0400 Diastolic blood pressure 80 mm[Hg] Ronobir AMPARO [facility] 04-06-2024 17:19-0400 Heart rate 70 /min Ronobir AMPARO [facility] 04-06-2024 17:19-0400 Systolic blood pressure 171 mm[Hg] Ronobir AMPARO [facility] 04-06-2024 17:16-0400 Hourly Rounding Ronobir AMPARO [facility] 04-06-2024 17:16-0400 Promise to Return Ronobir AMPARO [facility] 04-06-2024 16:06-0400 Hourly Rounding Ronobir AMPARO [facility] 04-06-2024 16:06-0400 Promise to Return Ronobir AMPARO [facility] 04-06-2024 15:54-0400 gluc 137 mg/dL Ronobir AMPARO [facility] 04-06-2024 15:34-0400 SaO2% (BldA) [Mass fraction] 95 % Ronobir AMPARO [facility] 04-06-2024 15:27-0400 Heart rate 67 /min Ronobir AMPARO [facility] 04-06-2024 15:27-0400 SaO2% (BldA) [Mass fraction] 94 % Ronobir AMPARO [facility] 04-06-2024 15:25-0400 Diastolic blood pressure 86 mm[Hg] Ronobir AMPARO [facility] 04-06-2024 15:25-0400 Mean blood pressure 109 mm[Hg] Ronobir AMPARO [facility] 04-06-2024 15:25-0400 Systolic blood pressure 156 mm[Hg] Ronobir AMPARO [facility] 04-06-2024 15:25-0400 Body temperature 97.52 [degF] Ronobir AMPARO [facility] 04-06-2024 15:00-0400 Respiratory rate 18 /min Ronobir AMPARO [facility] 04-06-2024 11:46-0400 gluc 236 mg/dL Ronobir AMPARO [facility] 04-06-2024 11:21-0400 Heart rate 79 /min Ronobir AMPARO [facility] 04-06-2024 11:21-0400 SaO2% (BldA) [Mass fraction] 95 % Ronobir AMPARO [facility] 04-06-2024 11:18-0400 Mean blood pressure 90 mm[Hg] Ronobir AMPARO [facility] 04-06-2024 11:18-0400 Body temperature 97.88 [degF] Ronobir AMPARO [facility] 04-06-2024 07:53-0400 gluc 123 mg/dL Ronobir AMPARO [facility] 04-06-2024 07:35-0400 Mean blood pressure 102 mm[Hg] Ronobir AMPARO [facility] 04-06-2024 07:35-0400 Body temperature 97.7 [degF] Ronobir AMPARO [facility] 04-06-2024 01:03-0400 Body temperature 98.24 [degF] Ronobir AMPARO [facility] 04-06-2024 01:03-0400 Mean blood pressure 86 mm[Hg] Ronobir AMPARO [facility] 04-06-2024 01:03-0400 Respiratory rate 18 /min Ronobir AMPARO [facility] 04-05-2024 16:24-0400 Blood Pressure Location Ronobir AMPARO [facility] 04-05-2024 11:00-0400 Body temperature 98.06 [degF] Ronobir AMPARO [facility] 04-05-2024 11:00-0400 Mean blood pressure 83 mm[Hg] Ronobir AMPARO [facility] 04-05-2024 07:00-0400 Body temperature 97.52 [degF] Ronobir AMPARO [facility] 04-05-2024 07:00-0400 Mean blood pressure 78 mm[Hg] Ronobir AMPARO [facility] 04-04-2024 17:00-0400 Blood Pressure Location Ronobir AMPARO [facility] 04-04-2024 17:00-0400 Respiratory rate 67 /min Ronobir AMPARO [facility] 04-04-2024 05:00-0400 Respiratory rate 20 /min Ronobir AMPARO [facility] 04-04-2024 03:32-0400 Heart rate 89 /min Ronobir AMPARO [facility] 04-04-2024 03:32-0400 Respiratory rate 24 /min Ronobir AMPARO [facility] 04-04-2024 00:30-0400 Heart rate 114 /min Tika CHRISTENSEN [facility] 04-02-2024 15:50-0400 Body height 152.4 cm [facility] 04-02-2024 15:50-0400 Body mass index (BMI) [Ratio] 38.2 kg/m2 [facility] 04-02-2024 15:50-0400 Body temperature 98.4 [degF] [facility] 04-02-2024 15:50-0400 Body weight 88.9 kg [facility] 04-02-2024 15:50-0400 Diastolic blood pressure 69 mm[Hg] [facility] 04-02-2024 15:50-0400 Heart rate 83 /min [facility] 04-02-2024 15:50-0400 SaO2% (BldA) [Mass fraction] 97 % [facility] 04-02-2024 15:50-0400 Systolic blood pressure 112 mm[Hg] [facility] 03-19-2024 10:59-0400 Body height 152.4 cm [facility] 03-19-2024 10:59-0400 Body mass index (BMI) [Ratio] 38.5 kg/m2 [facility] 03-19-2024 10:59-0400 Body weight 89.35 kg [facility] 03-19-2024 10:59-0400 Diastolic blood pressure 74 mm[Hg] [facility] 03-19-2024 10:59-0400 Heart rate 80 /min [facility] 03-19-2024 10:59-0400 Respiratory rate 16 /min [facility] 03-19-2024 10:59-0400 SaO2% (BldA) [Mass fraction] 98 % [facility] 03-19-2024 10:59-0400 Systolic blood pressure 114 mm[Hg] [facility] 12-20-2023 11:19-0400 Body height 152.4 cm [facility] 12-20-2023 11:19-0400 Body mass index (BMI) [Ratio] 36.9 kg/m2 [facility] 12-20-2023 11:19-0400 Body weight 85.72 kg [facility] 12-20-2023 11:19-0400 Diastolic blood pressure 74 mm[Hg] [facility] 12-20-2023 11:19-0400 Heart rate 74 /min [facility] 12-20-2023 11:19-0400 SaO2% (BldA) [Mass fraction] 97 % [facility] 12-20-2023 11:19-0400 Systolic blood pressure 124 mm[Hg] [facility] 12-12-2023 13:18-0400 Body height 152.4 cm [facility] 12-12-2023 13:18-0400 Body mass index (BMI) [Ratio] 36.8 kg/m2 [facility] 12-12-2023 13:18-0400 Body weight 85.44 kg [facility] 12-12-2023 13:18-0400 Diastolic blood pressure 68 mm[Hg] [facility] 12-12-2023 13:18-0400 Heart rate 88 /min [facility] 12-12-2023 13:18-0400 Systolic blood pressure 121 mm[Hg] [facility] 08-02-2023 13:08-0500 Hourly Rounding [facility] 08-02-2023 13:08-0500 Promise to Return [facility] 08-02-2023 12:08-0500 Hourly Rounding [facility] 08-02-2023 12:08-0500 Promise to Return [facility] 08-02-2023 11:31-0500 Heart rate 85 /min [facility] 08-02-2023 11:31-0500 SaO2% (BldA) [Mass fraction] 94 % [facility] 08-02-2023 11:25-0500 Diastolic blood pressure 69 mm[Hg] [facility] 08-02-2023 11:25-0500 Mean blood pressure 83 mm[Hg] [facility] 08-02-2023 11:25-0500 Systolic blood pressure 110 mm[Hg] [facility] 08-02-2023 11:25-0500 Body temperature 97.34 [degF] [facility] 08-02-2023 11:08-0500 Hourly Rounding [facility] 08-02-2023 11:08-0500 Promise to Return [facility] 08-02-2023 11:00-0500 Respiratory rate 18 /min [facility] 08-02-2023 08:27-0500 Heart rate 74 /min [facility] 08-02-2023 08:27-0500 SaO2% (BldA) [Mass fraction] 93 % [facility] 08-02-2023 08:24-0500 Body temperature 97.88 [degF] [facility] 08-02-2023 08:24-0500 Diastolic blood pressure 72 mm[Hg] [facility] 08-02-2023 08:24-0500 Mean blood pressure 90 mm[Hg] [facility] 08-02-2023 08:24-0500 Systolic blood pressure 124 mm[Hg] [facility] 08-02-2023 00:20-0500 Body temperature 97.88 [degF] [facility] 08-02-2023 00:20-0500 Diastolic blood pressure 82 mm[Hg] [facility] 08-02-2023 00:20-0500 Heart rate 71 /min [facility] 08-02-2023 00:20-0500 Mean blood pressure 90 mm[Hg] [facility] 08-02-2023 00:20-0500 SaO2% (BldA) [Mass fraction] 94 % [facility] 08-02-2023 00:20-0500 Systolic blood pressure 112 mm[Hg] [facility] 08-01-2023 12:00-0500 Respiratory rate 16 /min [facility] 07-31-2023 16:26-0500 Blood Pressure Location [facility] 07-31-2023 16:26-0500 Heart rate 65 /min [facility] 07-31-2023 16:26-0500 Respiratory rate 18 /min [facility] 07-31-2023 11:28-0500 Blood Pressure Location [facility] 07-31-2023 11:28-0500 Heart rate 70 /min [facility] 07-31-2023 10:43-0500 Mean blood pressure 82 mm[Hg] [facility] 07-31-2023 10:43-0500 Respiratory rate 18 /min [facility] 07-31-2023 10:00-0500 Mean blood pressure 69 mm[Hg] [facility] 07-31-2023 10:00-0500 Respiratory rate 20 /min [facility] 07-31-2023 09:45-0500 Mean blood pressure 70 mm[Hg] [facility] 07-30-2023 20:31-0500 Heart rate 75 /min [facility] 06-15-2023 11:20-0500 Body height 152.4 cm Yaneth Germania Other [facility] Other 06-15-2023 11:20-0500 Body mass index (BMI) [Ratio] 35.35 kg/m2 Yaneth Germania Other [facility] Other 06-15-2023 11:20-0500 Body temperature 98.7 [degF] Yaneth Germania Other [facility] Other 06-15-2023 11:20-0500 Body weight 82.1 kg Yaneth Germania Other [facility] Other 06-15-2023 11:20-0500 Diastolic blood pressure 75 mm[Hg] Yaneth Germania Other [facility] Other 06-15-2023 11:20-0500 Respiratory rate 18 /min Yaneth Germania Other [facility] Other 06-15-2023 11:20-0500 SaO2% (BldA) [Mass fraction] 96 % Yaneth Germania Other [facility] Other 06-15-2023 11:20-0500 Systolic blood pressure 111 mm[Hg] Yaneth Germania Other [facility] Other 06-02-2023 14:15-0500 Body height 152.4 cm Harpal Hayes Other [facility] Other 06-02-2023 14:15-0500 Body mass index (BMI) [Ratio] 35.27 kg/m2 Harpal Hayes Other [facility] Other 06-02-2023 14:15-0500 Body weight 81.92 kg Harpal Hayes Other [facility] Other 06-02-2023 14:15-0500 Diastolic blood pressure 76 mm[Hg] Harpal Hayes Other [facility] Other 06-02-2023 14:15-0500 SaO2% (BldA) [Mass fraction] 96 % Harpal Hayes Other [facility] Other 06-02-2023 14:15-0500 Systolic blood pressure 134 mm[Hg] Harpal Hayes Other [facility] Other 03-07-2023 10:15-0400 Body height 152.4 cm Harpal Hayes Other [facility] Other 03-07-2023 10:15-0400 Body mass index (BMI) [Ratio] 36.83 kg/m2 Harpal Hayes Other [facility] Other 03-07-2023 10:15-0400 Body weight 85.55 kg Harpal Hayes Other [facility] Other 03-07-2023 10:15-0400 Diastolic blood pressure 82 mm[Hg] Harpal Hayes Other [facility] Other 03-07-2023 10:15-0400 SaO2% (BldA) [Mass fraction] 93 % Harpal Hayes Other [facility] Other 03-07-2023 10:15-0400 Systolic blood pressure 140 mm[Hg] Harpal Hayes Other [facility] Other 12-20-2022 11:20-0400 Body height 152.4 cm Yaneth Germania Other [facility] Other 12-20-2022 11:20-0400 Body temperature 96.7 [degF] Yaneth Germania Other [facility] Other 12-20-2022 11:20-0400 Diastolic blood pressure 67 mm[Hg] Yaneth Germania Other [facility] Other 12-20-2022 11:20-0400 Respiratory rate 18 /min Yaneth Germania Other [facility] Other 12-20-2022 11:20-0400 SaO2% (BldA) [Mass fraction] 97 % Yaneth Germania Other [facility] Other 12-20-2022 11:20-0400 Systolic blood pressure 104 mm[Hg] Yaneth Germania Other [facility] Other 06-14-2022 12:40-0500 Body height 152.4 cm Yaneth Germania Other [facility] Other 06-14-2022 12:40-0500 Body mass index (BMI) [Ratio] 35.15 kg/m2 Yaneth Germania Other [facility] Other 06-14-2022 12:40-0500 Body temperature 97.3 [degF] Yaneth Germania Other [facility] Other 06-14-2022 12:40-0500 Body weight 81.65 kg Yaneth Germania Other [facility] Other 06-14-2022 12:40-0500 Diastolic blood pressure 73 mm[Hg] Yaneth Germania Other [facility] Other 06-14-2022 12:40-0500 Respiratory rate 18 /min Yaneth Germania Other [facility] Other 06-14-2022 12:40-0500 SaO2% (BldA) [Mass fraction] 95 % Yaneth Germania Other [facility] Other 06-14-2022 12:40-0500 Systolic blood pressure 115 mm[Hg] Yaneth Germania Other [facility] Other 01-08-2022 03:50-0400 Diastolic blood pressure 80 mm[Hg] [facility] 01-08-2022 03:50-0400 Heart rate 82 /min [facility] 01-08-2022 03:50-0400 Respiratory rate 16 /min [facility] 01-08-2022 03:50-0400 SaO2% (BldA) [Mass fraction] 100 % [facility] 01-08-2022 03:50-0400 Systolic blood pressure 140 mm[Hg] [facility] 06-18-2021 12:00-0500 Body height 152.4 cm Yaneth Germania Other [facility] Other 06-18-2021 12:00-0500 Body temperature 96.3 [degF] Yaneth Germania Other [facility] Other 06-18-2021 12:00-0500 Diastolic blood pressure 74 mm[Hg] Yaneth Germania Other [facility] Other 06-18-2021 12:00-0500 Respiratory rate 18 /min Yaneth Germania Other [facility] Other 06-18-2021 12:00-0500 SaO2% (BldA) [Mass fraction] 96 % Yaneth Germania Other [facility] Other 06-18-2021 12:00-0500 Systolic blood pressure 120 mm[Hg] Yaneth Solo Other [facility] Other Encounters Encounter Date Encounter Type Care Provider Facility Start: 05-28-2024 End: 05-28-2024 ambulatory [facility] Start: 04-04-2024 End: 04-06-2024 Evaluation and management of inpatient Ronobir R AMPARO Facility:[facility] Start: 04-04-2024 Emergency department patient visit DO Terry Delvalle Facility:[facility] Start: 04-04-2024 End: 04-06-2024 Evaluation and management of inpatient Augustusobir R AMPARO [facility] Start: 04-02-2024 End: 04-02-2024 ambulatory [facility] Work Phone: Start: 04-02-2024 End: 04-02-2024 Patient encounter procedure [facility] Physician [facility] Work Phone: Start: 03-19-2024 End: 03-19-2024 ambulatory [facility] Work Phone: Start: 03-19-2024 End: 03-19-2024 Patient encounter procedure [facility] Physician [facility] Work Phone: Start: 01-16-2024 Non-patient / Non-visit [facility] Physician [facility] Work Phone: Start: 12-20-2023 End: 12-20-2023 ambulatory [facility] Work Phone: Start: 12-20-2023 End: 12-20-2023 Patient encounter procedure [facility] Work Phone: Start: 12-13-2023 Non-patient / Non-visit [facility] Physician [facility] Work Phone: Start: 12-12-2023 End: 12-12-2023 ambulatory [facility] Work Phone: Start: 12-12-2023 End: 12-12-2023 Patient encounter procedure [facility] Work Phone: Start: 11-22-2023 End: 11-22-2023 ambulatory ZACH Huang [facility] Start: 11-07-2023 End: 11-07-2023 ambulatory [facility] Start: 08-10-2023 End: 08-10-2023 ambulatory [facility] Start: 07-31-2023 End: 08-02-2023 Evaluation and management of inpatient Christie Zayas Facility:[facility] Start: 07-30-2023 End: 08-02-2023 Evaluation and management of inpatient Christie Zayas [facility] Start: 07-11-2023 End: 07-11-2023 ambulatory LINDA Brand NASIM Not Available Start: 06-23-2023 End: 06-23-2023 ambulatory Harpal Hayes Other [facility] Other Start: 06-23-2023 Telephone encounter Harpal Hayes [facility] Start: 06-22-2023 End: 06-22-2023 ambulatory Harpal Hayes Other [facility] Other Start: 06-22-2023 Telephone encounter Harpal Haeys [facility] Start: 06-15-2023 End: 06-15-2023 ambulatory Yaneth Germania Other [facility] Other Start: 06-15-2023 Office outpatient vi sit 25 minutes Yaneth Germania [facility] Nephrology Start: 06-02-2023 End: 06-02-2023 ambulatory Harpal Hayes Other [facility] Other Start: 06-02-2023 Office outpatient vi sit 15 minutes Harpalcarolann Hayes [facility] Start: 05-24-2023 End: 05-24-2023 ambulatory Harpal Freddy Other [facility] Other Start: 05-24-2023 Telephone encounter Harpal Freddy [facility] Start: 05-18-2023 End: 05-18-2023 ambulatory Harpal Freddy Other [facility] Other Start: 05-18-2023 Telephone encounter Harpal Freddy [facility] Start: 05-09-2023 End: 05-09-2023 ambulatory Harpal Freddy Other [facility] Other Start: 05-09-2023 Telephone encounter Harpal Freddy [facility] Start: 03-15-2023 End: 03-15-2023 ambulatory Harpal Freddy Other [facility] Other Start: 03-15-2023 Telephone encounter Harpal Freddy [facility] Start: 03-07-2023 End: 03-07-2023 ambulatory Harpal Freddy Other [facility] Other Start: 03-07-2023 Office outpatient vi sit 25 minutes Harpal Freddy [facility] Start: 03-07-2023 Telephone encounter Harpal Freddy [facility] Start: 02-23-2023 End: 02-23-2023 ambulatory Harpal Hayes Other [facility] Other Start: 02-23-2023 Telephone encounter Harpal Hayes [facility] Start: 02-18-2023 End: 02-18-2023 ambulatory Harpal Freddy Other [facility] Other Start: 02-18-2023 Telephone encounter Harpal Freddy [facility] Start: 01-27-2023 End: 01-27-2023 ambulatory Harpal Hayes Other [facility] Other Start: 01-27-2023 Telephone encounter Harpal Freddy [facility] Start: 01-11-2023 End: 01-11-2023 ambulatory Harpal Freddy Other [facility] Other Start: 01-11-2023 Telephone encounter Harpal Freddy [facility] Start: 12-20-2022 End: 12-20-2022 ambulatory Yaneth Germania Other [facility] Other Start: 12-20-2022 Office outpatient vi sit 25 minutes Yaneth Germania [facility] Start: 12-06-2022 End: 12-06-2022 ambulatory Yaneth Germania Other [facility] Other Start: 12-06-2022 Telephone encounter Yaneth Germania [facility] Start: 12-06-2022 End: 12-06-2022 [facility]Site [facility] Start: 12-03-2022 End: 12-17-2022 Evaluation and management of inpatient Og TOLBERT [facility] Start: 12-01-2022 End: 12-01-2022 [facility]-Site [facility] Start: 11-15-2022 End: 11-15-2022 Off-Site [facility] Start: 11-14-2022 End: 12-01-2022 Evaluation and management of inpatient Og TOLBERT [facility] Start: 06-14-2022 End: 06-14-2022 ambulatory Yaneth Germania Other [facility] Other Start: 06-14-2022 Office outpatient vi sit 25 minutes Yaneth Germania [facility] Start: 06-09-[address] HARPAL HAYES Facil ity:[facility] Start: 05-27-2022 End: 05-27-[address] SULEMAN OLSEN Facility:[facility] Start: 04-26-2022 Gynecological examination normal Harpal Hayes Other [facility] Other Start: 03-11-2022 End: 03-11-2022 ambulatory CHRISTOPHER ABARCA Facility:[facility] Start: 02-21-2022 End: 02-21-2022 ambulatory ANDRADE DEBBIE Facility:[facility] Start: 02-18-2022 End: 02-24-2022 ambulatory UNKNOWN PROVIDER [facility] Start: 01-08-2022 End: 01-08-2022 ambulatory [facility] Emergenc y Triage, Treat and Transport Start: 01-08-2022 End: 01-08-2022 Emergency department patient visit [facility] Emergency Triage, Treat and Transport Comment on above: Arrived Start: 01-06-2022 End: 01-07-2022 ambulatory MEI DAS Facility:[facility] Start: 12-10-2021 End: 12-11-2021 ambulatory YANETH GERMANIA Facility:[facility] Start: 11-16-2021 End: 11-17-[address] LINDA REED Facility:[facility] Start: 09-28-2021 End: 10-28-[address] HARPAL HAYES Facility:[facility] Start: 08-31-[address] HARPAL HAYES Facil ity:[facility] Start: 06-18-2021 End: 06-18-2021 ambulatory Yaneth Germania Other [facility] Other Start: 06-18-2021 Office outpatient vi sit 25 minutes Yaneth Germania [facility] Start: 06-12-2021 End: 06-13-2021 ambulatory YANETH GERMANIA Facility:[facility] Start: 06-09-2017 End: 06-10-2017 Ambulatory DEFAULT PHYSICIAN Facility:[facility] Start: 06-07-2017 End: 06-08-2017 Ambulatory DEFAULT PHYSICIAN Facility:[facility] Start: 06-02-2017 End: 06-03-2017 Ambulatory DEFAULT PHYSICIAN Facility:[facility] Start: 05-10-2017 End: 05-11-2017 Ambulatory DEFAULT PHYSICIAN Facility:[facility] Procedures Date Procedure Procedure [...] 1945 COVID-19 Vaccine (#1) COVID-19 Vaccine (#1) [facility] Renal function 2000 panel - Serum or Plasma [facility] Immunizations Immunization Date Immunization Notes Care Provider Fa cility NEGATED: Highlighted row has not occurred! 6 pneumococcal polysaccharide vaccine, 23 valent Patient Objection Yaneth Germania Other [facility] Other Payers Date Payer Category Payer Medicare MEDICARE MEDICAR E PART A & B [id number] 2022-Present [address] [place] [address] Medicare [id number] 2017 Unknown [id number] 1960 Medicare [id number] [id number] 1944 Unknown [id number] 2.16.840.1.757206.3.579.2.732 1944 Unknown [id number] 2.16.840.1.284328.3.579.2.593 1944 Unknown [id number] 2.16.840.1.224997.3.579.2.593 1944 Unknown [id number] 2.16.840.1.601183.3.579.2.593 1944 Unknown [id number] 2.16.840.1.565188.3.579.2.593 1944 Unknown [id number] 2.16.840.1.775876.3.579.2.593 1944 Unknown [id number] 2.16.840.1.179498.3.579.2.593 1944 Unknown [id number] 2.16.840.1.938392.3.579.2.593 1944 Unknown [id number] 2.16.840.1.146957.3.579.2.593 1944 Unknown [id number] 2.16.840.1.159399.3.579.2.593 1944 Unknown [id number] 2.16.840.1.639345.3.579.2.593 1944 Unknown [id number] 2.16.840.1.964471.3.579.2.1259 1944 Unknown [id number] 2.16.840.1.451864.3.579.2.1286 1944 Unknown [id number] 2.16.840.1.801877.3.579.2.727 1944 Unknown [id number] 2.16.840.1.087074.3.579.2.727 1944 Unknown [id number] 2.16.840.1.553444.3.579.2.727 1944 Unknown [id number] 2.16.840.1.833707.3.579.2.727 1944 Unknown [id number] 2.16.840.1.993549.3.579.2.727 1944 Unknown [id number] 2.16.840.1.782031.3.579.2.727 1944 Unknown [id number] 2.16.840.1.469285.3.579.2.727 1944 Unknown [id number] 2.16.840.1.454457.3.579.2.727 1944 Unknown [id number] 2.16.840.1.847053.3.579.2.727 1944 Unknown [id number] 2.16.840.1.707264.3.579.2.727 1944 Unknown [id number] 2.16.840.1.603251.3.579.2.727 1944 Unknown [id number] 2.16.840.1.461832.3.579.2.72 1944 Unknown [id number] 2.16.840.1.964773.3.579.2.727 Self-pay Self Pay [id number] Unknown Social History Date Type Detail Facility Unknown if ever smoked [facility] Other Sex Assigned At [facility] Tobacco smoking status DEIS Tobacco smoking consumption unknown [facility] Start: 1945 Sex Assigned At Not on file [facility] Tobacco smoking status No Smoking Status Entered [facility] Start: 07-27-2018 Tobacco smoking status NHIS Never smoked tobacco (finding) [facility] Start: 1945 Sex Assigned At Female [facility] Tobacco [facility] Comment on above: Denies. Functional Status Date Assessment Result Facility 04-04-2024 Functional Status No [facility] 04-04-2024 Functional Status [facility] 07-31-2023 Functional Status No [facility] 07-30-2023 Functional Status [facility] Clinical Notes 06-18-2021 to 05-28-2024 Note Date & Type Note Facility 05-28-2024 Note [facility] Cardiology Clinic Note Chief Complaint: Patient here for 6 mo follow up CAD, tricuspid valve disorder, HFpEF, and hypertension. She was admitted to [facility] in Mar 2024 and carvedilol was stopped, [...] no interventions. Need to follow-up with her consulting it architect after discharge 2-dyspnea in the presence of [...] acute distress. H (more content not included)... [facility] 04-11-2024 Note Microbiology PROCEDURE: Blood Culture Charcoal [R1] SOURCE: Blood BODY SITE: Wrist R COLLECTED DATE/TIME: 04/04/2024 01:09 EDT RECEIVED DATE/TIME: 04/04/2024 01:27 EDT START DATE/TIME: 04/04/2024 01:27 EDT FREE TEXT SOURCE: Terry Delvalle DO, DO, Kaylinn A FINAL REPORTS Final Report [] Verified Date/Time: 04/11/2024 03:00 EST No growth at 7 days. Performing Locations R1: This test was performed at: [facility], [address] [place] [address], [id number] [place] [address], [address] [place] [address] Comment on above: Performed By: #### 1 [id number] #### [facility] [address] [place] [address] 04-11-2024 Note Microbiology PROCEDURE: Blood Culture Charcoal [...] Locations R1: This test was performed at: [facility], [address] [place] [address], [address] [place] [address], [address] [place] [address] Comment on above: Performed By: #### 1 [id number] #### [facility] [address] [place] [address] 04-11-2024 Note Microbiology PROCEDURE: Blood Culture Charcoal [...] Locations R1: This test was performed at: [facility], [address] [place] [address], [address] [place] [address], [address] [place] [address] Comment on above: Performed By: #### 1 [id number] #### [facility] [address] [place] [address] 04-11-2024 Note Microbiology PROCEDURE: Blood Culture Charcoal [...] This test was performed at: [facility], [address] [place] [address], [address]- , , [facility] Comment on above: Performed By: #### 1 [id number] #### [facility] [address] [place] [address] 04-06-2024 Hospital Discharge instructions Patient Education 04/06/2024 15:10:57 Community-Acquired Pneumonia, Adult, Iinj-em-Rxrc Community-Acquired Pneumonia, Adult Pneumonia is an infection [...] Follow these instructions at home: Medicines Take vfho-wwa-kqflzuo and prescription medicines only as told by [...] cannot use soap and water, use hand manager clinical services. Contact a doctor if: You have a [...] provider. Document Revised: 07/21/2022 Document Reviewed: 07/21/2022 [employer] Patient Education 2023 [email or web address]. 04/06/2024 15:10:57 Sepsis, Self Care, Adult Sepsis, [...] Follow these instructions at home: Medicines Take rzxr-tcl-scdsfvc and prescription medicines only as told by [...] and water are not available, use hand manager clinical services. Practice good hygiene. Keep cuts clean and [...] right away. Call your local emergency services (259 in the [place] Do not drive yourself to the hospital. If you ever feel like you may hurt yourself or others, or have thoughts about taking your own life, get help right away. Go to your nearest emergency department or: Call your local emergency services (342 in the [place] Call a suicide crisis helpline, such as the National Suicide Prevention Lifeline at or 596 in the [place] This is open 24 hours a day. Text the Crisis Text Line at 693956 (in the [place] Summary Sepsis is a [...] provider. Document Revised: 04/25/2023 Document Reviewed: 04/25/2023 [employer] Patient Education 2023 [email or web address]. 04/06/2024 15:10:57 Sepsis, Diagnosis, Adult Sepsis, Diagnosis, [...] Follow these instructions at home: Medicines Take yrqt-oqv-ormkwur and prescription medicines only as told by [...] provider. Document Revised: 04/25/2023 Document Reviewed: 04/25/2023 [employer] Patient Education 2023 [email or web address]. Follow Up Care 04/04/2024 00:26:14 With:Toby Santiago Address: [place] [address]- Business (1) When:05/07/2024 14:00:00 With:Brianne Jane Address: [address] [place], [place] [address] [address]- [phone] Business (1) When:5 to 7 days Comments:Doctor's office is closed for the day. Please call Tuesday to make hospital follow up appointment. With:Follow up with your primary cardiology team as soon as possible Address:Unknown When: Unknown With:HARPAL HAYES Address: [address] [place] [address]- Business (1) When:04/12/2024 11:30:00 With:Patient is currenct with [facility]. Address:Unknown When: Unknown [facility] 04-06-2024 Note Discharge Summary Admission and Discharge [...] and hypoxemia at [facility]. Johann Patterson () [phone], pt. is a FULL CODE, he states no prolonged code situation. -Pt. and her have made dgt. Lilian RAUSCHOA-[facility] [phone]. 1. Acute respiratory failure with hypoxia (J96.01: [...] cardio standpoint, F/U w/ [place] [facility] in [place] 6. Acute kidney injury superimposed on stage [...] C w/ thera (more content not included)... [facility] Comment on above: Result [...] tab(s), SubLingual, q5min, PRN, Unable to obtain Milford 325 mg-5 mg oral tablet, 1 tab(s), [...] Information HARPAL FREDDY 04/12/2024 11:30 AM EST [address] [place] [phone]- Business (1) Additional Instructions: Brianne Jane Within 5 to 7 days [address] [facility], [address] [phone] Business (1) Additional Instructions: Toby Santiago Within 5 to [address] [place] [address]- Business (1) Additional Instructions: Follow up with your primary cardiology team as soon as possible Additional Instructions: Patient is currenct with [facility]. Additional Instructions: Community-Acquired Pneumonia, Adult, Qiao-uh-Qstr Sepsis, Self Care, Adult Sepsis, Diagnosis, Adult [...] no interventions. Need to follow-up with her consulting it architect after discharge 2 dyspnea in the presence [...] Shah as primary spokesperson for all communication: [phone]. 1. Acute respiratory failure with hypoxia (J96.01: Acute respiratory failure with hypoxia) 2/2 PNA w/ failed outpt. zpak for bronchitis -Denies home 02 or cpap/bipap use - attempt to wean to [place] today -Supplemental 02 - BNP 161 -Tx. as below -Low threshold for PCCM consult if not improving in a.m. [facility]Day High 50 Minutes 29360 2. Sepsis (A41.9: Sepsis, unspecified organism) 2/2 [...] deep vein thrombosis (DVT) prophylaxis (Z79.899: Other ad terminal makeup operator (current) drug therapy) -Hold heparin sq 2/2 [...] Plan Post Void Residual Procalcitonin Referral to [facility] Stool Occult Blood Troponin 0 Hr. -Plan discussed w/ patient, nursing staff and CRM. This report was transcribed using voice recognition software. Every effort was made to ensure accuracy, however, inadvertently computerized coal feeder operator mistakes may be present. Extracted from: Title:Acute [...] -Max trop 67 - likely type II CO 2/2 demand ischemia 2/2 hypoxia/sepsis 2/2 PNA [...] deep vein thrombosis (DVT) prophylaxis (Z79.899: Other ad terminal makeup operator (current) drug therapy) -Heparin sq with early [...] Dehydrogenase Post Void Residual Procalcitonin Referral to [facility] Reticulocyte Count TIBC Calculated TSH With T4fr Reflex Vitamin B12 Level -Plan discussed w/ patient, nursing staff and CRM. This report was transcribed using voice recognition software. Every effort was made to ensure accuracy, however, inadvertently computerized coal feeder operator mistakes may be present. Addendum by Akua NICHOLSON on April 04, 2024 12:47:39 EDT BNP, echo - pending, DC IVF per nephro. Addendum by Akua NICHOLSON on April 04, 2024 14:20:30 EDT Johann Patterson called in and stated that he would prefer his step dgt. Lilian Shah be point of contact for all information [phone] Extracted from: Title:Admission H & P Author:Tika [...] deep vein thrombosis (DVT) prophylaxis (Z79.899: Other ad terminal makeup operator (current) drug therapy) SCD, heparin Orders: acetaminophen, [...] Therapy PT & PTT Rapid COVID Antigen ([facility]) Sputum Culture Troponin Troponin 1 Hr. Troponin 3 Hr. UA with Cult Rflx XR Chest Single View [facility] 10-31-2024 NoteProgress Note-Physician Patient: NADIA PATTERSON Age: [...] date 04/04/24 3:00:00 EDT, 04/04/24 2:42:00 EDT Milford 325 mg-5 mg oral tablet: 1 tab(s), [...] EDT Prescriptions Prescribed nathaly (more content not included)...[facility] Result Comment: Electronically Signed By: Jack BRIGGS, Toby\.br\Date and Time Signed: 04/05/24 15:[id number] NoteProgress Note-Physician Patient: NADIA PATTERSON Age: 78 [...] I learned that she has followed with [facility] cardiology in [place] and has had previous cardiac catheterization but with no intervention. She follows with cardiology at [place] in [place] on regular basis. She has been having [...] the troponin. I suggested to let her consulting it architect decide whether further cardiac investigation will be [...] mg = 1 tab(s), PRN, SubLingual, q5min Milford 325 mg-5 mg oral tablet 1 tab(s), [...] 10 mg 0.5 tab(s) (more content not included)...[facility] Center[facility] on [facility]:Result Comment: Electronically Signed By: Delphine BRIGGS, Briseida\.br\Date and Time Signed: 04/05/24 14:19 [id number] Note Echocardiology Procedure Exam Date/Time Accession # Ordering Dr. Morley Transthoracic w/ 04/04/2024 15:12 EDT [id number] Akua NICHOLSON Contrast CPT code C8929 Reason for Exam (Echo Transthoracic w/ Contrast) Shortness of breath (SOB) Report [facility] [address] [place] [address] Adult Echocardiogram Report Name: NADIA PATTERSON Study Date: 04/04/2024 02:05 PM BP: 101/57 mmHg Patient Location: [address] [place] [address] Bed(s) [facility] HR: 69 : 1945 Gender: Female Height: [...] Signed by: Briseida Akers MD Transcribed by: [place] Technologist: [facility]10-31-2024 Note Interdisciplinary Note - PT PT Evaluation completed with an . Pt was able to perform bed mobility with CGA, but does need CGA/Min A to ambulate. Pt does have some unsteadiness when ambulating with FWW along with increased weakness. Will continue to follow daily. SNF recommended at this time, but do anticipate improvement. Will follow daily with [facility]10-31-2024 NoteProgress Note-Physician Assessment/Plan Johann Patterson () [phone], pt. is a FULL CODE, he states no prolonged code situation. -He has appointed DgtEleni Shah as primary spokesperson for all communication: [phone]. 1. Acute respiratory failure with hypoxia (J96.01: Acute respiratory failure with hypoxia) 2/2 PNA w/ failed outpt. zpak for bronchitis -Denies home 02 or cpap/bipap use - attempt to wean to [place] today -Supplemental 02 -BNP 161 -Tx. as below -Low threshold for PCCM consult if not improving in a.m. Or[facility]: [facility]/Day High 50 Minutes [id number] 2. Sepsis (A41.9: Sepsis, unspecified organism) 2/2 [...] deep vein thrombosis (DVT) prophylaxis (Z79.899: Other longterm (current) drug therapy) -Hold heparin sq 2/2 [...] 1 EA, Powder (more content not included)... [facility]:Result Comment: Electronically Signed By: Akua NICHOLSON\.br\Date and Time Signed: 04/05/24 09:59 EDT\.br\Electronically Co-Signed By: Miguel Ramires DO\.br\Date and Time Co-Signed: 04/05/24 10:03 [id number] NoteConsultation Note Patient: NADIA PATTERSON Age: 78 [...] 6:33:00 EDT Prescriptions Prescribe (more content not included)...[facility] Center[facility] on above:Result Comment: Electronically Signed By: Toby Santiago MD\.br\Date and Time Signed: 04/04/24 15:[id number] NoteConsultation Note Patient: NADIA PATTERSON Age: 78 [...] mg = 1 tab(s), PRN, SubLingual, q5min Milford 325 mg-5 mg oral tablet 1 tab(s), [...] ondansetron 2 mg/mL Inj (more content not included)...[facility] Center[facility] on above:Result Comment: Electronically Signed By: Delphine BRIGGS, Briseida\.br\Date and Time Signed: 04/04/24 15:23 [id number] Note Interdisciplinary Note - OT Attempted to see patient for OT evaluation however pt was undergoing testing in her room upon attempt. Will follow up as appropriate.[facility] 04-04-2024 NoteProgress Note-Physician Assessment/Plan Johann Patterson () [phone], pt. is a FULL CODE, he states [...] -Max trop 67 - likely type II CO 2/2 demand ischemia 2/2 hypoxia/sepsis 2/2 PNA [...] deep vein thrombosis (DVT) prophylaxis (Z79.899: Other ad terminal makeup operator (current) drug therapy) -Heparin sq with early [...] Dehydrogenase Post Void Residual Procalcitonin Referral to [facility] Reticulocyte Count TIBC Calculated TSH With T4fr Reflex Vitamin B12 Level -Plan discussed w/ patient, nursing staff and CRM. This report was transcribed using voice recognition software. Every effort was made to ensure accuracy, however, inadvertently computerized coal feeder operator mistakes may be present. Subjective No acute events overnight. Patient states she feels tired and exhausted and not well. She denies CP, pressure, palpitations, N/V, or paresthesia. Review of Systems Constitutional: + fatigue/malaise, Respiratory: + harsh district adviser cough, + SOB/WOB/NASCIMENTO - does not wear [...] 04/04/24 * 04/03/24 04/02/24 (more content not included)...[facility] CenterComment on above:Result Comment: Electronically Signed By: Akua NICHOLSON\.br\Date and Time Signed: 04/04/24 14:21 EDT\.br\Electronically Co-Signed By: Miguel Ramires DO04-04-2024 NoteProgress Note-Physician Assessment/Plan Johann Patterson () [phone], pt. is a FULL CODE, he states [...] -Max trop 67 - likely type II CO 2/2 demand ischemia 2/2 hypoxia/sepsis 2/2 PNA [...] deep vein thrombosis (DVT) prophylaxis (Z79.899: Other ad terminal makeup operator (current) drug therapy) -Heparin sq with early [...] Dehydrogenase Post Void Residual Procalcitonin Referral to [facility] Reticulocyte Count TIBC Calculated TSH With T4fr Reflex Vitamin B12 Level -Plan discussed w/ patient, nursing staff and CRM. This report was transcribed using voice recognition software. Every effort was made to ensure accuracy, however, inadvertently computerized coal feeder operator mistakes may be present. Subjective No acute events overnight. Patient states she feels tired and exhausted and not well. She denies CP, pressure, palpitations, N/V, or paresthesia. Review of Systems Constitutional: + fatigue/malaise, Respiratory: + harsh district adviser cough, + SOB/WOB/NASCIMENTO - does not wear [...] 04/04/24 * 04/03/24 04/02/24 (more content not included)...[facility] CenterComment on above:Result Comment: Electronically Signed By: Akua NICHOLSON\.br\Date and Time Signed: 04/04/24 14:21 EDT\.br\Electronically Co-Signed By: Miguel Ramires DO\.br\Date and Time Co-Signed: 04/04/24 17:14 [id number] NoteProgress Note-Nurse PVR 116 hospitalist aware, orders for IVF off and BNP , IVF off as ordered and BNP resulted at 161.[facility]10-[facility] NoteProgress Note-Physician Assessment/Plan Johann Yesenia () [phone], pt. is a FULL CODE, he states [...] -Max trop 67 - likely type II CO 2/2 demand ischemia 2/2 hypoxia/sepsis 2/2 PNA [...] deep vein thrombosis (DVT) prophylaxis (Z79.899: Other ad terminal makeup operator (current) drug therapy) -Heparin sq with early [...] Dehydrogenase Post Void Residual Procalcitonin Referral to [facility] Reticulocyte Count TIBC Calculated TSH With T4fr Reflex Vitamin B12 Level -Plan discussed w/ patient, nursing staff and CRM. This report was transcribed using voice recognition software. Every effort was made to ensure accuracy, however, inadvertently computerized coal feeder operator mistakes may be present. Subjective No acute events overnight. Patient states she feels tired and exhausted and not well. She denies CP, pressure, palpitations, N/V, or paresthesia. Review of Systems Constitutional: + fatigue/malaise, Respiratory: + harsh district adviser cough, + SOB/WOB/NASCIMENTO - does not wear [...] 04/04/24 * 04/03/24 04/02/24 (more content not included)...[facility] CenterComment on above:Result Comment: Electronically Signed By: Akua NICHOLSON\.br\Date and Time Signed: 04/04/24 12:48 EDT\.br\Electronically Co-Signed By: Miguel Ramires DO04-04-2024 NoteProgress Note-Physician Assessment/Plan Johann Patterson () [phone], pt. is a FULL CODE, he states [...] -Max trop 67 - likely type II CO 2/2 demand ischemia 2/2 hypoxia/sepsis 2/2 PNA [...] deep vein thrombosis (DVT) prophylaxis (Z79.899: Other longterm (current) drug therapy) -Heparin sq with early [...] Dehydrogenase Post Void Residual Procalcitonin Referral to [facility] Reticulocyte Count TIBC Calculated TSH With T4fr Reflex Vitamin B12 Level -Plan discussed w/ patient, nursing staff and CRM. This report was transcribed using voice recognition software. Every effort was made to ensure accuracy, however, inadvertently computerized coal feeder operator mistakes may be present. Subjective No acute events overnight. Patient states she feels tired and exhausted and not well. She denies CP, pressure, palpitations, N/V, or paresthesia. Review of Systems Constitutional: + fatigue/malaise, Respiratory: + harsh district adviser cough, + SOB/WOB/NASCIMENTO - does not wear [...] 04/04/24 * 04/03/24 04/02/24 (more content not included)...[facility] CenterComment on above:Result Comment: Electronically Signed By: Akua NICHOLSON\.br\Date and Time Signed: 04/04/24 12:48 EDT\.br\Electronically Co-Signed By: Miguel Ramires DO\.br\Date and Time Co-Signed: 04/04/24 13:25 [id number] NoteHistory and Physical Basic Information Admit Date/Time:04/04/2024 [...] Lymph Auto: 4.7 % Low (04/04/24 01:05:00) [place] Auto: 2.6 % Low (04/04/24 01:05:00) Eos Auto: 0.7 % (04/04/24 01:05:00) Basophil Auto: 0.3 % (04/04/24 01:05:00) Neutro Absolute: 7.5 E9/L (04/04/24 01:05:00) Lymph Absolute: 0.4 E9/L Low (04/04/24 01:05:00) [place] Absolute: 0.2 E9/L (04/04/24 01:05:00) Eos Absolute: [...] acid per protocol. Antibio (more content not included)...[facility] CenterComment on above:Result Comment: Electronically Signed By: Tika CHRISTENSEN DO\Date and Time Signed: 04/04/24 03:00 [id number] [facility] Chief Complaint: Patient [...] block. Grade 1 diast (more content not included)...[facility]03-06-2024 Note [facility] Cardiology Clinic Note Chief Complaint: Patient here for 1.5 year follow up CAD, HFpEF, and hypertension. She was admitted to [facility] a few weeks ago for pneumonia. Daughter [...] stress test 03/2018 Myocardial (more content not included)...[facility] 08-07-2023 NoteMicrobiology PROCEDURE: Blood Culture Charcoal [R1] [...] This test was performed at: [facility], [address] [place] [address], [address] [place] [address], ThpbthAdena Regional Medical CenterComment on above:Performed By: #### [id number] ####[address] [id number] NoteMicrobiology PROCEDURE: Blood Culture Charcoal [R1] SOURCE: Blood BODY SITE: Hand L COLLECTED DATE/TIME: 07/30/2023 21:45 EST RECEIVED DATE/TIME: 07/30/2023 22:16 EST START DATE/TIME: 07/30/2023 22:16 EST FREE TEXT SOURCE: Michele Marie DO, DO, Kevin M. FINAL REPORTS Final Report [] Verified Date/Time: 08/07/2023 07:00 EST No growth at 7 days. Performing Locations R1: This test was performed at: [facility], [address] [place] [address], [id number] , [place], OmxiupAdena Regional Medical CenterComment on above:Performed By: #### [id number] ####[facility] [address] [place], [place] [id number] Evaluation + Plan noteExtracted from: Title:Discharge Note [...] 0.4 mg= 1 tab(s), SubLingual, q5min, PRN Milford 325 mg-5 mg oral tablet, 1 tab(s), [...] GRETEL ROWAN Within 3 to [address] [place], [place] [id number]- Additional Instructions: Call for followup appointment Community-Acquired Pneumonia, Adult, Fegf-jr-Cffa Extracted from: Title:APSO Note Author:Jesika WHITE student, [...] minute(s), 07/30/23 23:14:00 EST Add on Test [facility]02-27-2024 Hospital Discharge instructions Patient Education 08/02/2023 11:02:24 Antibiotic Medicine, Adult, Hyhg-go-Rxon Antibiotic Medicine, Adult Antibiotic medicines treat infections [...] medicine. Follow these instructions at home: Take plls-pmb-ruvlemp and prescription medicines as told by your [...] provider. Document Revised: 03/04/2020 Document Reviewed: 03/11/2020 [employer] Patient Education 2022 [email or web address]. 08/02/2023 10:11:36 Community-Acquired Pneumonia, Adult, Dhyn-nn-Sskc Community-Acquired Pneumonia, Adult Pneumonia is an infection [...] Follow these instructions at home: Medicines Take klld-uok-vlwdvuj and prescription medicines only as told by [...] cannot use soap and water, use hand manager clinical services. Contact a doctor if: You have a [...] provider. Document Revised: 07/21/2022 Document Reviewed: 07/21/2022 [employer] Patient Education 2022 [email or web address]. Follow Up Care 07/30/2023 20:29:22 With:HARPAL HAYSE MD, FAM Address: [address] [place] [address]- When:08/09/2023 10:30:00 [facility]02-27-2024 NoteAdmission and Discharge Information Admit Date/Time:07/31/2023 01:03 Admitting Physician - Christie Zayas MD Admitting Diagnoses: Discharge Order Date Discharge Patient - Ordered -- 08/02/23 10:17:00 [facility] Discharge Diagnoses 1. Generalized weakness, 07/30/2023 2. [...] 0.4 mg= 1 tab(s), SubLingual, q5min, PRN Milford 325 mg-5 mg oral tablet, 1 tab(s), [...] Extra Strength 500 mg (more content not included)...[facility] CenterComment on above:Result Comment: Electronically Signed By: Hector Meier DO\.br\Date and Time Signed: 08/02/23 10:18 [id number] NotePT Evaluation done this date. Pt. with on AM-PAC this date. Supervision to CGA with all activities this date. Recommend home health PT, will continue to follow while here.[facility]02-25-2024 NoteBasic Information Admit Date/Time:07/31/2023 01:22 Chief Complaint [...] was reported that they talked to her casting finisher about being fatigued lately and it was [...] % (07/30/23:45:00) Lymph Auto: 30.5 % (07/30/23:45:) Bott[place]au Auto: 7.8 % (07/30/23:45:00) Eos Auto: 4.1 % (07/30/23:45:) Basophil Auto: 0.9 % (07/30/23:45:) Neutro Absolute: 3.2 E9/L (07/30/23:45:00) Lymph Absolute: 1.7 E9/L (07/30/23:45:00) [place] Absolute: 0.4 E9/L (07/30/23:45:00) Eos Absolute: 0.2 [...] mg/dL High (07/30/23 20:34:00) POC Device SN: [id number] (07/30/23 20:34:00) POC User ID: [id number] (07/30/23 20:34:00) POC Username: DREAD CHURCH (07/30/23 20:34:00) UA Spec Desc: Clean Catch (07/30/23 22:50:00) UA Color: Yellow2 (07/30/23 22:50:00) UA Clarity: Clear2 (07/30/23 22:50:00) UA Spec Grav: 1.015 (07/30/23 22:50:00) UA pH: 7.0 (07/30/23 22:50:00) (more content not included)...[facility] CenterComment on above:Result Comment: Electronically Signed By: Marquez BRIGGS, Christie\.br\Date and Time Signed: 07/31/23 03:31 [id number] Evaluation note* Encounter Date Diagnosis Assessment Notes [...] magnesium. Will increase oral magnesium once daily. [facility] Other 12-28-2023 Evaluation note* Encounter Date Diagnosis Assessment Notes Treatment Notes Treatment Clinical Notes May, Acute non-recurrent maxillary sinusitis (ICD-10 - J01.00) Take antibiotic as directed. If develop wheezing, chest tightness, itching, bad cough, blue skin color, seizures, swelling of face, lips, tongue, or throat report to ED. [facility] Other 10-02-2023 Evaluation note* Encounter Date Diagnosis Assessment Notes Treatment Notes Treatment Clinical Notes Mar, Lumbosacral spondylosis (ICD-10 - M47.817) Milford refilled. Requests to increase dose due to [...] symptoms. Any developing patterns. Stay well hydrated. [facility] Other 08-08-2023 Evaluation note* Encounter Date Diagnosis Assessment Notes Treatment Notes Treatment Clinical Notes Jan, Hypertensive chronic kidney disease with stage 1 through stage 4 chronic kidney disease, or unspecified chronic kidney disease (ICD-10 - I12.9) [facility] Other 07-17-2023 Evaluation note* Encounter Date Diagnosis [...] due to the multiple course of antibiotics [facility] Other 01-09-2023 Evaluation note* Encounter Date Diagnosis [...] has a low magnesium. Continue oral magnesium [facility] Other 12-22-2022 History general Narrative - Reported* Type Description Date Medical History DM Medical History Fibromyalgia Medical History Arthritis Medical History HIP PAIN BILATERAL Medical History NERVE 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 BI LATERAL Medical History UTI 05/27/22 [facility] E R Surgical History Procedure:Colostomy;Disease: [...] NERVE BLOCK 04/09/2022 Hospitalization History see above [facility] Other 12-22-2022 History general Narrative - Reported* Type Description Date Medical History DM Medical History Fibromyalgia Medical History Arthritis Medical History HIP PAIN BILATERAL Medical History NERVE 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 BI LATERAL Medical History UTI 05/27/22 [facility] E R Medical History UTI 11/06/2022 GIVEN BACTRIM Medical History UTI 11/10/2022 TAKEN TO [facility] Surgical History Procedure:Colostomy;Disease: no t current Surgical [...] History UTI 11/06/2022 Hospitalization History UTI AT [facility] AND THEN [facility] 11/12/2022 [facility] Other 12-22-2022 History general Narrative - Reported* Type Description Date Medical History DM Medical History Fibromyalgia Medical History Arthritis Medical History HIP PAIN BILATERAL Medical History NERVE 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 BI LATERAL Medical History UTI 05/27/22 [facility] E R Medical History UTI 11/06/2022 GIVEN BACTRIM Medical History UTI 11/10/2022 TAKEN TO [facility] Surgical History Colostomy Surgical History right TKA [...] History UTI 11/06/2022 Hospitalization History UTI AT [facility] AND THEN [facility] 11/12/2022 [facility] Other 09-15-2022 History of Present illness Narrative* Madai Webb MD - 02/18/2022 8:44 PM EDT Images from the original note were not included. EMERGENCY TRIAGE, TREAT AND TRANSPORT (ET3) DOCUMENTATION OF TELEHEALTH VISIT Date / Time: 01/08/2022 / 0345am Name: Suhas Patterson : 1945 SSN: [id number] EMS Agency: [facility] [x] Verbal consent obtained [] [...] by: Madai Webb MD documented in this [id number] NotePROCEDURE: XR ANKLE RT MIN 3 VIEWS, [...] Electronically authenticated by: LINDA REED Date: 2021-11-16 16:37[facility]06-13-2022 NotePROCEDURE: XR ANKLE RT MIN 3 [...] Electronically authenticated by: LINDA REED Date: 2021-11-16 16:37[facility]01-13-2022 Evaluation note* Encounter Date Diagnosis Assessment [...] within the goal. Continue [place] D 67688 units 3/week Jun, Gout (ICD-10 - M10.9) [...] UTI so I have prescribed oral antibiotic. [facility] Other Evaluation + Plan note No data available for this section [facility] Evaluation note* Diagnosis Fall, initial encounter- Primary documented in this encounter [facility] InformationNortGe[facility] Other Evaluation noteNo assessment information available [facility] Work Phone: Evaluation note* Diagnosis Onset Date Resolution Status Cellulitis of leg without foot, left acute Fibromyalgia acute Insomnia acute Restless leg syndrome acute Anemia of renal disease acut e CKD (chronic kidney disease) stage 3, GFR 30-59 ml/min acute 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 Gout acute [id number] acute Hypomagnesemia acute Secondary hyperparathyroidism acute [facility] Work Phone: Evaluation note* Diagnosis Onset Date Resolution Status Anemia of renal disease acut e CKD (chronic kidney disease) stage 3, GFR 30-59 ml/min acute 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 Gout acute Hyperlipidemia acute [id number] acute Hypomagnesemia acute Secondary hyperparathyroidism acute [facility] Work Phone: Evaluation note* Diagnosis Onset Date Resolution Status Fibromyalgia acute Insomnia acute Restless leg syndrome acute [facility] Work Phone: History general Narrative - [...] History perforated bowel Hospitalization History see above [facility] Other Hospital Discharge instructions No data available for this section [facility] Progress note No data available for this section [facility] Summary Purpose Family History No Family [...] Diabetes mellitus with chronic kidney disease Gout [id number] Hypomagnesemia Secondary hyperparathyroidism Chief Complaint RENAL 6 month follow up 3 month f/u/med refills Reason for Visit Anemia of renal dise ase CKD (chronic kidney disease) stage 3, GFR 30-59 ml/min Diabetes mellitus with chronic kidney disease Gout Hyperlipidemia [id number] Hypomagnesemia Secondary hyperparathyroidism Chief Complaint 3 month f/u/med refi lls chest congestion Reason for Visit Fibromyalgia Insomnia Restless leg syndrome Additional Source Comments INFORMATION SOURCE (unrecogn ized section and content) DATE CREATED AUTHOR 11/29/2017 [facility] DATE CREATED AUTHOR AUTHOR'S ORGANIZ ATION 03/06/2022 [facility] DATE CREATED AUTHOR AUTHOR'S ORGANIZ ATION 06/08/2022 [facility] DATE CREATED AUTHOR AUTHOR'S ORGANIZ ATION 07/12/2023 [facility] DATE CREATED AUTHOR AUTHOR'S ORGANIZ ATION 11/24/2023 [facility] DATE CREATED AUTHOR AUTHOR'S ORGANIZ ATION 04/05/2024 [facility] DATE CREATED AUTHOR AUTHOR'S ORGANIZ ATION 04/06/2024 [facility] DATE CREATED AUTHOR AUTHOR'S ORGANIZ ATION 04/07/2024 [facility] DATE CREATED AUTHOR AUTHOR'S ORGANIZ ATION 04/08/2024 [facility] DATE CREATED AUTHOR AUTHOR'S ORGANIZ ATION 04/12/2024 [facility] DATE CREATED AUTHOR AUTHOR'S ORGANIZ ATION 04/13/2024 [facility] DATE CREATED AUTHOR AUTHOR'S ORGANIZ ATION 05/30/2024 [facility] REASON FOR VISIT (unrecogniz ed section [...] BE BASED ON THE PRIMARY CLINICAL RECORDS. [employer] provides no warranty or guarantee of the accuracy or completeness of information in this document.
--- OUTSIDE RECORDS SUMMARY | 2024-07-12 06:14 | XMS_ITS | CCD ---
Author Organization [facility] Care Team Providers Care Dipper Operator Name Role Phone PHYSICIAN, DEFAULT Unavailable Unavailable [...] Translations: [Stadol] Drug Allergy 2 ANXIOUS [facility] Repository (14 sources) PT DENIES ANY METAL ALLERGY Propensity to adverse reactions Unknown food.de Other (9 sources) Butorphanol; Translations: [butorphanol] Drug Allergy 4 [facility] (10 sources) Stadol *ANALGESICS - OPIOID* Propensity to adverse reactions Unknown food.de Other (2 sources) Allergies Reconciled Propensity to adverse reactions Unknown food.de Other (1 source) Butorphanol; Translations: [BUTORPHANOL TARTRATE] [...] every eight hours as needed for pain [place] 325 mg-5 mg oral tablet 1 tab(s), Oral, q8hr as needed for pain, Refill(s) 0 Start Date: 12/06/22 Status: Ordered Start: 11-13-2022 [place] 325 mg-5 mg oral tablet 1 tab(s), [...] Daily, # 2 tab(s), Refills(s) 0, Pharmacy: [facility], 149.9, cm, 07/30/23 20:35:00 EST, Height/Length [...] day(s), # 15 cap(s), Refills(s) 0, Pharmacy: [facility], 157.4, cm, 04/04/24 0:33:00 EDT, Height/Length [...] day(s), # 8 cap(s), Refills(s) 0, Pharmacy: [facility], 152, cm, 12/02/22 9:48:00 EDT, Height/Length Dosing, 87.8, kg, 12/02/22 9:48:00 EDT, Weight Dosing Start Date: 12/03/22 Stop Date: 12/07/22 Status: Ordered cefuroxime 500 mg oral tablet (2 sources) Cephalosporin Antibacterial Start: 08-03-2023 take 1 tablet by mouth twice daily cefuroxime 500 mg oral tablet 500 mg = 1 tab(s), Oral, BID, # 4 tab(s), Refills(s) 0, Pharmacy: [facility] 1155, 149.9, cm, 07/30/23 20:35:00 EST, Height/Length [...] WED, FRI Active take 1 tablet by [facility] weekly Vitamin D3 Maximum Strength 125 MCG (5000 UT) 1 tab(s) Orally THREE TIMES A WEEK Active Vitamin D3 250 M CG (45029 UT) 1 capsule Orally MON, TUE, FRI [...] Start: 07-31-2023 take 1 capsule by mo [facility] twice daily as needed for constipation Colace 100 mg Cap 100 mg = 1 cap(s), Oral, BID, PRN for constipation, # 20 cap(s), Refills(s) 0 Start Date: 07/31/23 Status: Ordered take 1 capsule by mo [facility] four times weekly as needed Stool [...] 11/11/22 Status: Ordered take 1 tablet by [facility] three times weekly Ferrous Sulfate 325 [...] Daily, # 30 tab(s), Refills(s) 0, Pharmacy: [facility] 1155, 157.4, cm, 04/04/24 0:33:00 EDT, Height/Length [...] 0 Start Date: 11/11/22 Status: Ordered Nystatin [id number] UNIT/GM 1 application Externally Twice a day [...] Date: 04/06/24 Status: Ordered polyethylene glycol 3350 49702 mg powder for oral solution (14 sources) [...] Daily, # 30 tab(s), Refills(s) 0, Pharmacy: [facility] 1155, 157.4, cm, 04/04/24 0:33:00 EDT, Height/Length Dosing, 86.1, kg, 04/04/24 0:33:00 EDT, Weight Dosing Start Date: 04/06/24 Status: Ordered Vitamin C 1000 MG (1 source) take 1 tablet by mouth once daily Vitamin C 1000 MG 1 tablet Orally Once a day Active Vitamin D3 250 MCG (20732 UT) (9 sources) Vitamin D3 250 M CG (57070 UT) 1 capsule Orally TUE, TUE, TUE [...] disease (11 sources) Atherosclerotic heart disease of [place] coronary [...] surgery] Chronic Other aftercare (1 source) 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; Translations: [OTH RESIDENTIAL CURRENT DRUG THERAPY] Onset: 2 Episodic Other aftercare (1 source) [facility] (current) use of oral hypoglycemic drugs; Translations: [RESIDENTIAL USE ORAL HYPOGLYCEMIC DX] Onset: 2 Episodic Other aftercare (1 source) 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 (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) use of insulin; Translations: [FORENSIC MANAGER CURRENT USE OF INSULIN] Onset: 2 Episodic Other aftercare (3 sources) Long-term current use of drug therapy; Translations: [Other custodial (current) drug therapy] Onset: 4 Episodic Other [...] Range Facility Office Visiton 05-28-2024 Follow-up visit [id number] Nadia Patterson 1945 F Date Provider Department Center 05/28/2024 271-NORMAN, JOSH CARD [facility] No family history on file Level of Service:66538 [place] OFFICE/OUTPATIENT ESTABLISHED LOW MDM 20 MIN Normal [facility] C Sputumon 04-07-2024 Bacteria identified Respiratory [...] Locations R1: This test was performed at: [facility], [address] [place] [address], [address]- , [place], Normal [facility] Comment on above: Performed By: #### 2 [id number] #### [facility] [address] [place] [address] BMPon 04-06-2024 Anion gap [Moles/Vol] 12 mmol/L Normal 6-16 [facility] Comment on above: Performed By: #### 2 [id number] #### [facility] [address] [place] [address] Calcium [Mass/Vol] 8.7 mg/dL Low 8.9-11.1 [facility] Comment on above: Performed By: #### 2 [id number] #### [facility] [address] [place] [address] Chloride [Moles/Vol] 106 mmol/L Normal 101-111 [facility] Comment on above: Performed By: #### 2 [id number] #### [facility] [address] [place] [address] CO2 [Moles/Vol] 25 mmol/L Normal 21-31 [facility] Comment on above: Performed By: #### 2 [id number] #### [facility] [address] [place] [address] Creatinine [Mass/Vol] 1.4 mg/dL High 0.5-1.3 [facility] Comment on above: Performed By: #### 2 [id number] #### [facility] [address] [place] [address] Glucose [Mass/Vol] 138 mg/dL Normal 55-199 [facility] Comment on above: Performed By: #### 2 [id number] #### [facility] [address] [place] [address] Potassium [Moles/Vol] 4.5 mmol/L Normal 3.5-5.3 [facility] Comment on above: Performed By: #### 2 [id number] #### [facility] [address] [place] [address] Sodium [Moles/Vol] 138 mmol/L Normal 135-145 [facility] Comment on above: Performed By: #### 2 [id number] #### [facility] [address] [place] [address] Urea nitrogen [Mass/Vol] 16 mg/dL Normal 5-21 [facility] Comment on above: Performed By: #### 2 [id number] #### [facility] [address] [place] [address] Urea nitrogen/Creatinine [Mass ratio] 11 No Units Normal 10-20 [facility] Comment on above: Performed By: #### 2 [id number] #### [facility] [address] [place] [address] C Urineon 04-06-2024 Bacteria identified Cx Nom [...] Locations R1: This test was performed at: [email or web address], [address] [place] [address], [address]- , , Normal [facility] Comment on above: Performed By: #### 2 [id number] #### [facility] [address] [place] [address] CHEMISTRYOrdered By: Yane ROP User on 04-06-2024 Glucose [Mass/Vol] 137 mg/dL High 55 - 99 mg/dL [facility] POC Subsection Comment on above: Result Comment: Michelle erickson RN/ POC Device SN [id number] 1 Invalid Interpretation Code [facility] POC Subsection POC User ID [id number] 1 Invalid Interpretation Code [facility] POC Subsection POC Username MARIELA LI Invalid Interpretation Code [facility] POC Subsection Glucose [Mass/Vol] 236 mg/dL High 55 - 99 mg/dL [facility] POC Subsection Comment on above: Result Comment: Michelle dre RN/ POC Device SN [id number] 1 Invalid Interpretation Code [facility] POC Subsection POC User ID [id number] 1 Invalid Interpretation Code [facility] POC Subsection POC Username HENRY PEPPER Invalid Interpretation Code [facility] POC Subsection Glucose [Mass/Vol] 123 mg/dL High 55 - 99 mg/dL [facility] POC Subsection Comment on above: Result Comment: Michelle dre RN/ POC Device SN [id number] 1 Invalid Interpretation Code [facility] POC Subsection POC User ID [id number] 1 Invalid Interpretation Code [facility] POC Subsection [...] 11-0 Glucose [Mass/Vol] 137 mg/dL High 55-99 [facility] Comment on above: Result Comment: Michelle PACHECO Performed By: #### 2 [id number] #### [facility] [address] [place] [address] Glucose [Mass/Vol] 236 mg/dL High 55-99 [facility] Comment on above: Result Comment: Michelle PACHECO Performed By: #### 2 [id number] #### [facility] [address] [place] [address] Glucose [Mass/Vol] 123 mg/dL High 55-99 [facility] Comment on above: Result Comment: Michelle PACHECO Performed By: #### 2 [id number] #### [facility] [address] [place] [address] HEMATOLOGYOrdered By: SYSTEM SYSTEM on 04-06-2024 Hematocrit (Bld) [Volume fraction] 32.0 % Low 34.0 - 46.0 % Remisol Heme Hemoglobin (Bld) [Mass/Vol] 10.8 g/dL Low 12.0 - 16.0 gm/dL Remisol Heme Hct & Hgbon 04-06-2024 Hematocrit (Bld) [Volume fraction] 32.0 % Low 34.0-46.0 [facility] Comment on above: Performed By: #### 1 [id number] #### [facility] [address] [place] [address] Hemoglobin (Bld) [Mass/Vol] 10.8 g/dL Low 12.0-16.0 [facility] Comment on above: Performed By: #### 1 [id number] #### [facility] [address] [place] [address] Inpatient Clinical Summaryon 04-06-2024 Inpatient Clinical Summary Inpatient Clinical Summary [address] [address] Clinical Summary Person Information: Name: NADIA PATTERSON Age: 78 Years : 1945 Sex: Female PCP: HARPAL HAYES MD Marital Status: Phone: [phone] Race: White Ethnicity: Non- or Language: Mongolian Visit Id: Visit Reason: Respiratory problem; Cough; Shortness of breath; fever Speciality: Acuity: Enc Type: Inpatient Med Service: Medical Arrival: 04/04/2024 00:25:34 Discharge: Dispo Type: Admitted as IP to this Hosp Address: [address] [place] [id number] Provider Notes: Diagnosis: 1:Acute respiratory failure with [...] not to exceed 4000 mg/day. acetaminophen-hydroc odone ([place] 325 mg-5 mg oral tablet) 1 Tablets [...] Referring Physician: Follow up: With: Address: When: [address] [place] [address] Business (1) 05/07/2024 2:00 PM With: Address: When: Decker Arialanna [address] [place] [address] [address] [phone] Business (1) Within 5 to 7 days Comments: Doctor's office is (more content not included)... Normal [facility] Inpatient Clinical Summary Inpatient Clinical Summary [address] [address] Clinical Summary Person Information: Name: NADIA PATTERSON Age: 78 Years : 1945 Sex: Female PCP: HARPAL HAYES MD Marital Status: Phone: [phone] Race: White Ethnicity: Non- or Language: Mongolian Visit Id: Visit Reason: Respiratory problem; Cough; Shortness of breath; fever Speciality: Acuity: Enc Type: Inpatient Med Service: Medical Arrival: 04/04/2024 00:25:34 Discharge: Dispo Type: Admitted as IP to this Hosp Address: [address] [place] [phone] Provider Notes: Diagnosis: 1:Acute respiratory failure with [...] not to exceed 4000 mg/day. acetaminophen-hydroc odone ([place] 325 mg-5 mg oral tablet) 1 Tablets [...] Follow up: With: Address: When: [facility] [address], [address] [phone] Business (1) Within 5 to 7 days With: Address: When: Toby Gomez . [place] [phone] Business (1) Within 5 to 7 days With: Address: When: Follow u (more content not included)... Normal [facility] Inpatient Clinical Summary Inpatient Clinical Summary [address] [address] Clinical Summary Person Information: Name: NADIA PATTERSON Age: 78 Years : 1945 Sex: Female PCP: HARPAL HAYES MD Marital Status: Phone: [phone] Race: White Ethnicity: Non- or Language: Mongolian Visit Id: Visit Reason: Respiratory problem; Cough; Shortness of breath; fever Speciality: Acuity: Enc Type: Inpatient Med Service: Medical Arrival: 04/04/2024 00:25:34 Discharge: Dispo Type: Admitted as IP to this Hosp Address: [address] [place] [phone] Provider Notes: Diagnosis: 1:Acute respiratory failure with [...] By Mouth every 6 hours. acetaminophen-hydroc odone ([place] 325 mg-5 mg oral tablet) 1 Tablets [...] Follow up: With: Address: When: HARPAL HAYES [address] [place] [address] [facility] (1) 04/12/2024 11:30 AM With: Address: When: Patient is currenct with [facility] [employer]. Patient Education Information: [facility] Inpatient Patient Summaryon 04-06-2024 Inpatient Patient Summary [...] acetaminophen (acetaminophen 325 mg Tab) acetaminophen-hydroc odone ([place] 325 mg-5 mg oral tablet) albuterol (Albuterol [...] 02:00 PM EST Where: [place] [address]- Business (1) Follow Up with HARPAL HAYES When: 04/12/2024 11:30 AM EST Where: [address] [place] [address]- Business (1) Follow Up with Brianne Jane When: Within 5 to 7 days Comments: Doctor's office is closed for the day. Please call Tuesday to make hospital follow up appointment. Where: Sophie Merino, [address] [phone] Business (1) Follow Up with Follow up with your primary cardiology team as soon as possible When: Follow Up with Patient is currenct with [facility]. When: Medications What How Much When Instructions Next Dose New albuterol (Albuterol (Eqv-Ventolin HFA) 90 mcg/ inh inhalation aerosol) 1 Inhalation Inhalation Every 2 hours Pickup at [place] [address] as needed New amoxicillin-clavulan ate (Augmentin 875 mg-125 mg Tab) 1 Tablets By Mouth Every 12 hours Duration: 5 Days Pickup at [place] [address] start New benzonatate (Tessalon 100 mg Cap) 1 Capsules By Mouth 3 times a day as needed for Cough Duration: 5 Days Pickup at [place] [address] start New cyanocobalamin (cyanocobalamin 1000 mcg Tab) 1 Tablets By Mouth Every day Pickup at [place] [address] 04/07 New folic acid (folic acid 1 mg Tab) 1 Tablets By Mouth Every day Pickup at [place] [address] 04/07 New guaifenesin (Mucinex 600 mg Tab-ER) 2 Tablets By Mouth Every 12 hours Duration: 5 Days Pickup at [place] [address] 04/07@9am New pantoprazole (Protonix 40 mg Tab-DR) 1 Tablets By Mouth Every day Pickup at [place] [address] 04/07 Changed acetaminophen (acetaminophen 325 mg Tab) 2 Tablets By Mouth Every 6 hours as needed for Laine (more content not included)... Normal [facility] Inpatient Patient Summary Inpatient Patient Summary NADIA PATTERSON :1945 Visit Date:04/04/2024 Inpatient Discharge Instructions Your Care Team Admitting Physician - Tika CHRISTENSEN DO Consulting Physician - Delphine BRIGGS, Briseida [facility], XXXX Reason for Your Visit Cough Your [...] acetaminophen (acetaminophen 325 mg Tab) acetaminophen-hydroc odone ([place] 325 mg-5 mg oral tablet) albuterol (Albuterol [...] 02:00 PM EST Where: [place] [address] [address]- Business (1) Follow Up with HARPAL HAYES When: 04/12/2024 11:30 AM EST Where: [address] [place] [phone] Business (1) Follow Up with Brianne Jane When: Within 5 to 7 days Comments: Doctor's office is closed for the day. Please call Tuesday to make hospital follow up appointment. Where: Sophie Merino, [facility] [address] [phone] Business (1) Follow Up with Follow up with your primary cardiology team as soon as possible When: Follow Up with Patient is currenct with [facility]. When: Medications What How Much When Instructions Next Dose New albuterol (Albuterol (Eqv-Ventolin HFA) 90 mcg/ inh inhalation aerosol) 1 Inhalation Inhalation Every 2 hours Pickup at [facility] 115 as needed New amoxicillin-clavulan ate (Augmentin 875 mg-125 mg Tab) 1 Tablets By Mouth Every 12 hours Duration: 5 Days Pickup at [facility] 115 start New benzonatate (Tessalon 100 mg Cap) 1 Capsules By Mouth 3 times a day as needed for Cough Duration: 5 Days Pickup at [facility] 1155 start New cyanocobalamin (cyanocobalamin 1000 mcg Tab) 1 Tablets By Mouth Every day Pickup at [place] [address] 04/07 New folic acid (folic acid 1 [...] Tablets By Mouth Every day Pickup at [facility] (more content not included)... Normal [facility] Inpatient Patient Summary Inpatient Patient Summary [place] [address] Patient Discharge Instructions PERSON INFORMATION Name: NADIA [...] When: Toby Santiago [place] [address] Business (1) 05/07/2024 2:00 PM With: Address: When: Brianne Barrios [facility], [address], [address] [phone] Business (1) Within 5 to 7 days Comments: Doctor's office is closed for the day. Please call Tuesday to make hospital follow up appointment. With: Address: When: Follow up with your primary cardiology team as soon as possible With: Address: When: HARPAL HAYES [address] [place] [address] Business (1) 04/12/2024 11:30 AM With: Address: When: Patient is currenct with [facility]. In the event that this physician does [...] [facility], [address] [place], [place] [id number], [phone] albuterol (Albuterol (Eqv-Ventolin HFA) 90 mcg/inh inhalation [...] [facility], [address] [facility] [address] [place], [place] [id number], [phone] START: ferrous sulfate (ferrous sulfate 325 mg Tab) 1 Tablets By Mouth every day. Refills: 0. Last Dose: Next Dose: STOP: ferrous sulfate (ferrous sulfate 325 mg Tab) 1 Tablets By Mouth Tuesday. Other Medications START: acetaminophen (acetaminophen 325 mg Tab) 2 Tablets By Mouth every 6 hours as needed Pain. (more content not included)... Normal [facility] Inpatient Patient Summary Inpatient Patient Summary [address] [address] Patient Discharge Instructions PERSON INFORMATION [...] Follow up: With: Address: When: [facility], [address], [address] [phone] Business (1) Within 5 to 7 days With: Address: When: [facility] [address] Business (1) Within 5 to 7 days With: Address: When: Follow up with your primary cardiology team as soon as possible With: Address: When: HARPAL HAYES [address] [place], [place] [phone] Business (1) 04/12/2024 11:30 AM With: Address: When: Patient is currenct with [facility]. In the event that this physician does [...] [facility], [address], [place] [id number], [phone] albuterol (Albuterol (Eqv-Ventolin HFA) 90 mcg/inh inhalation [...] [facility], [address] [facility] [place] [id number], [phone] START: ferrous sulfate (ferrous sulfate 325 mg [...] STOP: acetaminophen (more content not included)... Normal [facility] Inpatient Patient Summary Inpatient Patient Summary [place] [address] Patient Discharge Instructions PERSON INFORMATION Name: NADIA [...] Follow up: With: Address: When: HARPAL HAYES [address] [place] [address] [facility] (1) 04/12/2024 11:30 AM With: Address: When: Patient is currenct with [facility]. In the event that this physician does [...] hours. Last Dose: Next Dose: acetaminophen-hydroc odone ([place] 325 mg-5 mg oral tablet) 1 Tablets [...] Dose: n (more content not included)... Normal [facility] Interdisciplinary Note - [place] e Manageron 04-06-2024 Interdisciplinary Note - High Rigger Interdisciplinary Note - High Rigger CRM to room 306 Patient is awake, alert and oriented. Patient verified PCP, DME and insurance. Patient is from home with her Spouse. She will have a ride at [place]. Patient is an inpatient. She completed IMM 04/04 and this gets reviewed. Patient is here for fever, PNA. 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 Per patient she has a walker at home. She is current with [facility]. She declined any needs for further DME or SNF stay. PT/OT recs SNF with expected improvement. Patient was weaned to RA. Patient continues to decline SNF stay. Patient was provided CRM contact, white board updated. CRM following CRM will get updates from [employer] JUNIOR ASSISTANT MANAGER at 10 AM Today therapy [facility] care Lilian called and was provided an update. Ak[employer] will be informed she is here and would like to meet with her I was updated that patient might DC home today now and f/u with GI as an OP Normal [facility] Comment on above: Result Comment: Elec tronically Signed By: Rosalinda Vogel\.br\Date and Time Signed: 04/06/24 13:33 EDT Interdisciplinary Note - High Rigger Interdisciplinary Note - High Rigger CRM to room 306 Patient is awake, alert and oriented. Patient verified PCP, DME and insurance. Patient is from home with her Spouse. She will have a ride at [place]. Patient is an inpatient. She completed IMM 04/04 and this gets reviewed. Patient is here for fever, PNA. 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 Per patient she has a walker at home. She is current with [facility]. She declined any needs for further DME or SNF stay. PT/OT recs SNF with expected improvement. Patient was weaned to RA. Patient continues to decline SNF stay. Patient was provided CRM contact, white board updated. CRM following CRM will get updates from [employer] GRAHAM at 10 AM Today therapy recs care [facility] Comment on above: Result Comment: Elec tronically Signed By: Rosalinda Vogel\.br\Date and Time Signed: 04/06/24 10:37 EDT Interdisciplinary Note - High Rigger Interdisciplinary Note - High Rigger CRM to room 306 Patient is awake, alert and oriented. Patient verified PCP, DME and insurance. Patient is from home with her Spouse. She will have a ride at [place]. Patient is an inpatient. She completed [facility] 04/04 and this gets reviewed. Patient is here for fever, PNA. 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 Per patient she has a walker at home. She is current with [facility]. She declined any needs for further DME or SNF stay. PT/OT recs SNF with expected improvement. Patient was weaned to RA. Patient continues to decline SNF stay. Patient was provided CRM contact, white board updated. CRM following CRM will get updates from [employer] GRAHAM at 10 AM [facility] Comment on above: Result Comment: Elec tronically Signed By: Rosalinda Vogel\.br\Date and Time Signed: 04/06/24 09:12 EDT MICRO OTHER TESTSOrdered By: Angie Skinner on 04-06-2024 Occult blood panel (Stl) Positive *ABN* (04/06/24 4:27 AM) Invalid Interpretation Code Negative [facility] Man Sero MRSA Screenon 04-06-2024 MRSA DNA DIETER+probe Ql (Unsp spec) Microbiology PROCEDURE: MRSA Screen [R1] SOURCE: Nasal BODY SITE: COLLECTED DATE/TIME: 04/04/2024 12:21 EDT RECEIVED DATE/TIME: 04/04/2024 13:17 EDT START DATE/TIME: 04/04/2024 13:17 EDT FREE TEXT SOURCE: HARRY MARTEL, [employer] MARTEL, [employer] FINAL REPORTS Final Report [] Verified Date/Time: 04/06/2024 09:23 EDT MRSA Negative. Performing Locations R1: This test was performed at: [facility], [address] [place] [address], [id number]- , [place], Normal [facility] Comment on above: Performed By: #### 1 [id number] #### [facility] [address] [place] [id number] Procalcitoninon 04-06-2024 Procalcitonin 11.39 ng/mL High .00-.50 [facility] Comment on above: Result Comment: <0.5 [...] to 24 hours. Performed By: #### 2 [id number] #### [facility] [address] [place] [address] 35612 Stl Oclt Bldon 04-06-2024 Occult blood panel (Stl) Positive Abnormal Negative [facility] Comment on above: Performed By: #### 2 [id number] #### [facility] [address] [place] [address] 22018 U Legi Agon 04-06-2024 L. pneumophila 1 Ag IA Ql (U) Negative Invalid Interpretation Code Negative [facility] Comment on above: Result Comment: Pres umptive negative for L. pneumophila serogroup 1 antigen in urine, suggesting no recent or current infection. Legionnaires' disease cannot be ruled out since other serogroups and species may also cause disease. Performed at: [address] [id number] MD Geovanny Chapman Performed By: #### 2 [id number] #### [facility] [address] [place] [address] 49780 eGFRon 04-06-2024 eGFR 38 mL/min/1.73 m2 Low >=59 [facility] Comment on above: Performed By: #### 1 [id number] #### [facility] [address] [place] [address] BMPon 04-05-2024 Anion gap [Moles/Vol] 10 mmol/L Normal 6-16 [facility] Comment on above: Performed By: #### 2 [id number] #### [facility] [address] [facility] [place] [address] Calcium [Mass/Vol] 8.4 mg/dL Low 8.9-11.1 [facility] Comment on above: Performed By: #### 2 [id number] #### [facility] [address] [place] [address] Chloride [Moles/Vol] 103 mmol/L Normal 101-111 [facility] Comment on above: Performed By: #### 2 [id number] #### [facility] [address] [place] [address] CO2 [Moles/Vol] 30 mmol/L Normal 21-31 [facility] Comment on above: Performed By: #### 2 [id number] #### [facility] [address] [place] [address] Creatinine [Mass/Vol] 1.6 mg/dL High 0.5-1.3 [facility] Comment on above: Performed By: #### 2 [id number] #### [facility] [address] [place] [address] Glucose [Mass/Vol] 133 mg/dL Normal 55-199 [facility] Comment on above: Performed By: #### 2 [id number] #### [facility] [address] [facility] [place] [address] Potassium [Moles/Vol] 3.5 mmol/L Normal 3.5-5.3 [facility] Comment on above: Performed By: #### 2 [id number] #### [facility] [address] [place] [address] Sodium [Moles/Vol] 139 mmol/L Normal 135-145 [facility] Comment on above: Performed By: #### 2 [id number] #### [facility] [address] [place] [address] Urea nitrogen [Mass/Vol] 21 mg/dL Normal 5-21 [facility] Comment on above: Performed By: #### 2 [id number] #### [facility] [address] [place] [address] Urea nitrogen/Creatinine [Mass ratio] 13 No Units Normal 10-20 [facility] Comment on above: Performed By: #### 2 [id number] #### [facility] [address] [place] [address] CBC w/ Auto Diffon 4 Basophils/100 WBC (Bld) 0.9 % Normal 0.0-2.0 [facility] Comment on above: Performed By: #### 2 [id number] #### [facility] [address] [place] [address] Basophils/Leukocytes Auto (Bld) [Pure # fraction] 0.1 E9/L Normal 0.0-0.2 [facility] Comment on above: Performed By: #### 2 [id number] #### [facility] [address] [place] [address] Eosinophils (Bld) [#/Vol] 0.3 E9/L Normal 0.0-0.5 [facility] Comment on above: Performed By: #### 2 [id number] #### [facility] [address] [place] [address] Eosinophils/100 WBC (Bld) 6.1 % Normal 0.0-8.0 [facility] Comment on above: Performed By: #### 2 [id number] #### [facility] [address] [place] [address] Erythrocyte distribution width (RBC) [Ratio] 14.7 % High 10.9-14.2 [facility] Comment on above: Performed By: #### 2 [id number] #### [facility] [address] [place] [address] Hematocrit (Bld) [Volume fraction] 28.2 % Low 34.0-46.0 [facility] Comment on above: Performed By: #### 2 [id number] #### [facility] [address] [place] [address] Hemoglobin (Bld) [Mass/Vol] 9.6 g/dL Low 12.0-16.0 [facility] Comment on above: Performed By: #### 2 984219 #### [facility] [address] [place] [address] Lymphocytes (Bld) [#/Vol] 1.5 E9/L Normal 1.0-4.0 [facility] Comment on above: Performed By: #### 2 [id number] #### [facility] [address] [place] [address] Lymphocytes/100 WBC (Bld) 26.6 % Normal 14.0-50.0 [facility] Comment on above: Performed By: #### 2 [id number] #### [facility] [address] [place] [address] MCH (RBC) [Entitic mass] 31.1 pg Normal 27.0-34.0 [facility] Comment on above: Performed By: #### 2 [id number] #### [facility] [address] [place] [address] MCHC (RBC) [Mass/Vol] 34.2 g/dL Normal 31.4-36.0 [facility] Comment on above: Performed By: #### 2 [id number] #### [facility] [address] [place] [address] MCV (RBC) [Entitic vol] 91.1 fL Normal 80.0-100.0 [facility] Comment on above: Performed By: #### 2 [id number] #### [facility] [address] [place] [address] Monocytes (Bld) [#/Vol] 0.5 E9/L Normal 0.2-1.0 [facility] Comment on above: Performed By: #### 2 [id number] #### [facility] [address] [place] [address] Neutrophils (Bld) [#/Vol] 3.3 E9/L Normal 2.0-7.5 [facility] Comment on above: Performed By: #### 2 [id number] #### [facility] [address] [place] [address] Neutrophils/100 WBC (Bld) 58.3 % Normal 36.0-75.0 [facility] Comment on above: Performed By: #### 2 [id number] #### [facility] [address] [place] [address] Platelet 203.0 E9/L Normal 150.0-500.0 [facility] Comment on above: Performed By: #### 2 [id number] #### [facility] [address] [place] [address] Platelet mean volume (Bld) [Entitic vol] 7.5 fL Normal 6.4-10.8 [facility] Comment on above: Performed By: #### 2 [id number] #### [facility] [address] [place] [address] RBC (Bld) [#/Vol] 3.1 E12/L Low 4.3-5.9 [facility] Comment on above: Performed By: #### 2 [id number] #### [facility] [address] [place] [address] WBC corrected for nucl RBC Auto (Bld) [#/Vol] 5.7 E9/L Normal 4.0-11.0 [facility] Comment on above: Performed By: #### 2 [id number] #### [facility] [address] [place] [address] CHEMISTRYOrdered By: SYSTEM SYSTEM on 04-05-2024 Anion [...] 10 - 20 Remisol Chem Capillary Glucose [facility] 03-08 Glucose [Mass/Vol] 218 mg/dL High 55-99 [facility] Comment on above: Result Comment: Michelle PACHECO Performed By: #### 2 [id number] #### [facility] [address] [place] [address] Glucose [Mass/Vol] 139 mg/dL High 55-99 [facility] Comment on above: Result Comment: Michelle PACHECO Performed By: #### 2 [id number] #### [facility] [address] [place] [address] Glucose [Mass/Vol] 198 mg/dL High 55-99 [facility] Comment on above: Result Comment: Michelle PACHECO Performed By: #### 2 [id number] #### [facility] [address] [place] [address] Glucose [Mass/Vol] 139 mg/dL High 55-99 [facility] Comment on above: Result Comment: Michelle PACHECO Performed By: #### 2 [id number] #### [facility] [address] [place] [address] HEMATOLOGYOrdered By: SYSTEM SYSTEM on 04-05-2024 Basophils/100 [...] [place] e Manageron 04-05-2024 Interdisciplinary Note - High Rigger Interdisciplinary Note - High Rigger CRM to room 306 Patient is awake, alert and oriented. Patient verified PCP, DME and insurance. Patient is from home with her Spouse. She will have a ride at [place]. Patient is an inpatient. She completed IMM 04/04. Patient is here for fever, PNA. Patient is assigned to Akua GRAHAM, see notes. Per patient she has a walker at home. She is current with [facility] care. She declined any needs for further DME or SNF stay. She is pending PT/OT. Patient was provided CRM contact, rickie board updated. CRM following CRM will get updates from Akua GRAHAM at 10 AM Patient is on [place] oxygen, she does not wear at home and would need desat or weaned before DC Normal [facility] Comment on above: Result Comment: Elec tronically Signed By: Rosalinda Vogel\.br\Date and Time Signed: 04/05/24 09:15 EDT Interdisciplinary Note - José n 04-05-2024 Interdisciplinary Note - OT Interdisciplinary Note - OT Ot [facility] six clicks score = SNF vs HH services. patient requires Min A w/ standing adls/transfers and mod vc for safety w/ transfer mechanics and OT cord safety. Inpatient OT services to follow daily as pt was modified Ind w/ basic adls/transfers/stand ing adls prior to illness. Normal [facility] Interdisciplinary Note - Soc ial Workeron 04-05-2024 Interdisciplinary Note - Senior Accounting Analyst Interdisciplinary Note - Senior Accounting Analyst This SW met with patient, her , and her daughter Irma today to assist patient with completing a POA. She named Irma as her primary agent, with her as the first alternate. She did not wish to complete a LW at this time. SW will remain available. Normal [facility] - Microbiology an d Antimicrobial susceptibilityOrdered By: Jasmin Desai on 04-05-2024 Bacteria identified Respiratory culture Nom (Sput) Scant growth of Normal upper respiratory kaity isolated [facility] Magnesiumon 04-05-2024 Magnesium [Mass/Vol] 1.6 mg/dL Normal 1.3-2.4 [facility] Comment on above: Performed By: #### 2 [id number] #### [facility] [address] [place] [address] No Panel InformationOrdered By: Jasmin Desai on 04-05-2024 GS 2+ epithelial cells Occasional White Blood Cells Occasional Gram Positive Cocci [facility] Procalcitoninon 04-05-2024 Procalcitonin 19.19 ng/mL High .00-.50 [facility] Comment on above: Result Comment: <0.5 [...] to 24 hours. Performed By: #### 2 [id number] #### [facility] [address] [place] [address] eGFRon 04-05-2024 eGFR 32 mL/min/1.73 m2 Low >=59 [facility] Comment on above: Performed By: #### 1 [id number] #### [facility] [address] [place] [address] BNPon 04-04-2024 Natriuretic peptide B (Bld) [Mass/Vol] 161 pg/mL High 5-80 [facility] Comment on above: Performed By: #### 1 [id number] #### [facility] [address] [place] [address] CBC w/ Auto Diffon RBC size Nom (Bld) NORMAL Invalid Interpretation Code [facility] Comment on above: Performed By: #### 2 [id number] #### [facility] [address] [place] [address] Basophils/100 WBC (Bld) 0.3 % Normal 0.0-2.0 [facility] Comment on above: Performed By: #### 2 [id number] #### [facility] [address] [place] [address] Basophils/Leukocytes Auto (Bld) [Pure # fraction] 0.0 E9/L Normal 0.0-0.2 [facility] Comment on above: Performed By: #### 2 [id number] #### [facility] [address] [place] [address] Eosinophils (Bld) [#/Vol] 0.1 E9/L Normal 0.0-0.5 [facility] Comment on above: Performed By: #### 2 [id number] #### [facility] [address] [place] [address] Eosinophils/100 WBC (Bld) 0.7 % Normal 0.0-8.0 [facility] Comment on above: Performed By: #### 2 345498 #### [facility] [address] [place] [address] Erythrocyte distribution width (RBC) [Ratio] 14.9 % High 10.9-14.2 [facility] Comment on above: Performed By: #### 2 855207 #### [facility] [address] [place] [address] Hematocrit (Bld) [Volume fraction] 34.7 % Normal 34.0-46.0 [facility] Comment on above: Performed By: #### 2 [id number] #### [facility] [address] [place] [address] Hemoglobin (Bld) [Mass/Vol] 11.8 g/dL Low 12.0-16.0 [facility] Comment on above: Performed By: #### 2 [id number] #### [facility] [address] [place] [address] Lymphocytes (Bld) [#/Vol] 0.4 E9/L Low 1.0-4.0 [facility] Comment on above: Performed By: #### 2 999392 #### [facility] [address] [place] [address] Lymphocytes/100 WBC (Bld) 4.7 % Low 14.0-50.0 [facility] Comment on above: Performed By: #### 2 [id number] #### [facility] [address] [place] [address] MCH (RBC) [Entitic mass] 30.9 pg Normal 27.0-34.0 [facility] Comment on above: Performed By: #### 2 [id number] #### [facility] [address] [place] [address] MCHC (RBC) [Mass/Vol] 33.9 g/dL Normal 31.4-36.0 [facility] Comment on above: Performed By: #### 2 550459 #### [facility] [address] [place] [address] MCV (RBC) [Entitic vol] 91.1 fL Normal 80.0-100.0 [facility] Comment on above: Performed By: #### 2 580872 #### [facility] [address] [place] [address] Monocytes (Bld) [#/Vol] 0.2 E9/L Normal 0.2-1.0 [facility] Comment on above: Performed By: #### 2 [id number] #### [facility] [address] [place] [address] Neutrophils (Bld) [#/Vol] 7.5 E9/L Normal 2.0-7.5 [facility] Comment on above: Performed By: #### 2 [id number] #### [facility] [address] [place] [address] Neutrophils/100 WBC (Bld) 91.7 % High 36.0-75.0 [facility] Comment on above: Performed By: #### 2 [id number] #### [facility] [address] [place] [address] Platelet mean volume (Bld) [Entitic vol] 7.0 fL Normal 6.4-10.8 [facility] Comment on above: Performed By: #### 2 048386 #### [facility] [address] [place] [address] Platelets (Bld) [#/Vol] 224.0 E9/L Normal 150.0-500.0 [facility] Comment on above: Performed By: #### 2 178257 #### [facility] [address] [place] [address] RBC (Bld) [#/Vol] 3.8 E12/L Low 4.3-5.9 [facility] Comment on above: Performed By: #### 2 640593 #### [facility] [address] [place] [address] WBC corrected for nucl RBC Auto (Bld) [#/Vol] 8.2 E9/L Normal 4.0-11.0 [facility] Comment on above: Performed By: #### 2 467306 #### [facility] [address] [place] [address] CHEMISTRYOrdered By: SYSTEM SYSTEM on 04-04-2024 Troponin [...] High Sensitivity Troponin I Instructions For Use, [employer], January 2018) Procalcitonin 16.47 ng/mL High 0.00 [...] conjunction with clinical conditions of myocardial infarction. (Healcerion High Sensitivity Troponin I Instructions For Use, [employer], January 2018) Troponin HS 65.10 pg/mL Invalid [...] High Sensitivity Troponin I Instructions For Use, [employer], January 2018) Albumin [Mass/Vol] 4.0 g/dL Normal [...] 161 pg/mL High 5 - 80 pg/mL [facility] Albumin [Mass/Vol] 4.0 g/dL Normal 3.3-5.0 [facility] Comment on above: Performed By: #### 2 [id number] #### [facility] [address] [place] [address] Albumin/Globulin (S) [Mass conc ratio] 1.3 Normal 1.1-2.2 [facility] Comment on above: Performed By: #### 2 [id number] #### [facility] [address] [place] [address] ALP [Catalytic activity/Vol] 98 Int._Unit/L Normal 21-98 [facility] Comment on above: Performed By: #### 2 386177 #### [facility] [address] [place] [address] ALT No additional P-5'-P [Catalytic activity/Vol] 9 Int._Unit/L Normal 6-46 [facility] Comment on above: Performed By: #### 2 [id number] #### [facility] [address] [place] [address] Anion gap [Moles/Vol] 14 mmol/L Normal 6-16 [facility] Comment on above: Performed By: #### 2 018194 #### [facility] [address] [place] [address] AST [Catalytic activity/Vol] 18 Int._Unit/L Normal 5-43 [facility] Comment on above: Performed By: #### 2 209448 #### [facility] [address] [place] [address] Bilirubin [Mass/Vol] 0.7 mg/dL Normal 0.0-1.1 [facility] Comment on above: Performed By: #### 2 [id number] #### [facility] [address] [place] [address] Calcium [Mass/Vol] 9.3 mg/dL Normal 8.9-11.1 [facility] Comment on above: Performed By: #### 2 [id number] #### [facility] [address] [place] [address] Chloride [Moles/Vol] 100 mmol/L Low 101-111 [facility] Comment on above: Performed By: #### 2 [id number] #### [facility] [address] [place] [address] CO2 [Moles/Vol] 28 mmol/L Normal 21-31 [facility] Comment on above: Performed By: #### 2 [id number] #### [facility] [address] [place] [address] Creatinine [Mass/Vol] 1.9 mg/dL High 0.5-1.3 [facility] Comment on above: Performed By: #### 2 [id number] #### [facility] [address] [place] [address] Globulin (S) [Mass/Vol] 3.1 g/dL Normal 1.4-4.0 [facility] Comment on above: Performed By: #### 2 430676 #### [facility] [address] [place] [address] Glucose [Mass/Vol] 232 mg/dL High 55-199 [facility] Comment on above: Performed By: #### 2 285161 #### [facility] [address] [place] [address] Potassium [Moles/Vol] 3.7 mmol/L Normal 3.5-5.3 [facility] Comment on above: Performed By: #### 2 016656 #### [facility] [address] [place] [address] Protein [Mass/Vol] 7.1 g/dL Normal 6.0-7.8 [facility] Comment on above: Performed By: #### 2 654003 #### [facility] [address] [place] [address] Sodium [Moles/Vol] 138 mmol/L Normal 135-145 [facility] Comment on above: Performed By: #### 2 883329 #### [facility] [address] [place] [address] Urea nitrogen [Mass/Vol] 24 mg/dL High 5-21 [facility] Comment on above: Performed By: #### 2 197960 #### [facility] [address] [place] [address] Urea nitrogen/Creatinine [Mass ratio] 13 No Units Normal 10-20 [facility] Comment on above: Performed By: #### 2 539032 #### [facility] [address] [place] [address] COAGULATIONOrdered By: Damion Grigsby on 04-04-2024 aPTT Coag (PPP) [Time] 36.3 s Normal 25.1 - 36.5 second(s) [facility] Coag Comment on above: Interpretive Data: [...] the same coagulation reagent and instrumentation as [facility]. Currently there are no coagulation studies available worldwide for children to 14 days, and no normal ranges. Heparin therapeutic range (represented by Anti-Factor Xa activity of 0.2 - 0.4 U/mL) corresponds to PTT of 56.6 - 109.0 sec. INR Coag (PPP) [Relative time] 1.09 {INR} Invalid Interpretation Code [facility] Comment on above: Interpretive Data: I NR results are specifically intended to assess patients stabilized on long-term Anticoagulation therapy suggested INR s Less Intensive Anticoagulation 2.0 3.0 Conventional Range 3.0 4.5 PT Coag (PPP) [Time] 12.2 s Normal 9.4 - 1 2.5 second(s) [facility] Comment on above: Interpretive Data: [...] were obtained from a study by Jeff Gilbetr et al. prepared from 1437 samples obtained at 7 different centers using the same coagulation reagent and instrumentation as [facility]. Currently there are no coagulation studies available [...] contrast amount in ml's: 0 Normal [facility] CT Chest w/o Contraston 10-3 CT Chest [...] FINAL REPORT Dictated: 04/04/2024 12:16 pm Juan iHll MD Signed (Electronic Signature): 04/04/2024 12:16 pm Signed by: Juan Hill MD Transcribed by: SHALOM Technologist: RUTH Normal [facility] Capillary Glucose POCon - Glucose [Mass/Vol] 158 mg/dL High 55-99 [facility] Comment on above: Result Comment: Michelle PACHECO Performed By: #### 2 [id number] #### [facility] [address] [place] [address] Glucose [Mass/Vol] 128 mg/dL High 55-99 [facility] Comment on above: Result Comment: Michelle PACHECO Performed By: #### 2 [id number] #### [facility] [address] [place] [address] Glucose [Mass/Vol] 100 mg/dL High 55-99 [facility] Comment on above: Result Comment: Michelle PACHECO Performed By: #### 2 [id number] #### [facility] [address] [place] [address] Glucose [Mass/Vol] 154 mg/dL High 55-99 [facility] Comment on above: Result Comment: Michelle PACHECO Performed By: #### 2 [id number] #### [facility] [address] [place] [address] Glucose [Mass/Vol] 230 mg/dL High 55-99 [facility] Comment on above: Result Comment: Michelle erickson RN/MD Performed By: #### 2 [id number] #### [facility] [address] [place] [address] ED Clinical Summaryon 2023 ED Clinical Summary ED Clinical Summary [address] [address] ED Clinical Summary Person Information Name: NADIA PATTERSON Swapna/[facility] Age: 78 Years : 1945 Sex: Female Language: Mongolian PCP: HARPAL HAYES MD Marital Status: Phone: [phone] Visit Id: Visit Reason: Respiratory problem; Cough; Shortness of breath; fever Speciality: Acuity: 1 Enc Type: Inpatient Med Service: Medical Arrival: 04/04/2024 00:25:34 Discharge: LOS: 000 02:51 Checkin: 04/04/2024 00:25:34 Checkout: 04/04/2024 03:16:58 Dispo Type: Admitted as IP to this [facility] EVENTS: Event Name Event Status Request [...] Labs Inlab 04/04/2024 03:05:34 04/04/2024 03:05:34 ADDRESS: [address] [place] [phone] [facility] DOC NOTES: MEDICAL INFORMATION: Prescriptions Given: Medications [...] mg sublingu (more content not included)... Normal [facility] ED Note-Physicianon 04-04-20 ED Note-Physician ED [...] and Complexity of Problems Differential Diagnosis: [] [facility] Data External documents reviewed: [] [...] Therapy PT & PTT Rapid COVID Antigen ([facility]) Sputum Culture Troponin Troponin 1 Hr. Troponin 3 Hr. UA with Cult Rflx XR Chest Single View Medications Administered Given GenDil 100 mL + [id number] [F] 1000 mg, IV Piggyback NS 500 ml Bolus, 500 mL, IV Sodium Chloride 0.9% intravenous solution 50 mL + ceftriaxone additive 1000 mg, IV Piggyback Disposition Plan Patient Discharge Condition Fair Discharge Disposition Admitted Discharge Prescription List Prescriptions No active prescription medications Follow-up No qualifying data available Problem List/Past Medical History Ongoing Cerebrovascular s (more content not included)... Normal [facility] Comment on above: Result Comment: Elec tronically Signed By: Terry Delvalle DO\.olaf\Date and Time Signed: 04/04/24 02:18 EDT ED Patient Education Noteon 04-04-2024 ED Patient Education Note ED Patient Education Note Normal [facility] ED Patient Summaryon 024 ED Patient Summary ED Patient Summary [place] [id number] Patient Discharge Instructions Person Information Name: NADIA [...] Information Primary Provider: Terry Delvalle DO Advanced [place] Operator:None The exam and treatment you received in the Emergency Department were for an urgent problem and are not intended as complete care. It is important that you follow up with a doctor, nurse practitioner, or physician???s assistant press operator offset for ongoing care. If your symptoms become [...] opioids can be used to help relieve zymvwanh-yn-vzelzl pain and are often prescribed following a [...] of opioids (more content not included)... Normal [facility] EMS Documentationon 04-04-20 EMS Documentation Report Please click on link to see report Normal [facility] Comment on above: Result Comment: Miss irwin Attachment - attachment exceeds size limitation [id number] Can be viewed in source system Extra Ronald 04-04-2024 WB Tube Collected Yes Invalid Interpretation Code [facility] Comment on above: Performed By: #### 1 [id number] #### [facility] Laboratory [address] [place] [address] Ferritinon 04-04-2024 Ferritin [Mass/Vol] 58 ng/mL Normal 11-307 [facility] Comment on above: Performed By: #### 2 [id number] #### [facility] [address] [place] [address] Folateon 04-04-2024 Folate [Mass/Vol] 6.3 ng/mL Low >=6.7 [facility] Comment on above: Performed By: #### 2 [id number] #### [facility] [address] [place] [address] HEMATOLOGYOrdered By: SYSTEM SYSTEM on 04-04-2024 Basophils/100 [...] 4 Influenzae A Ag Negative Normal Negative [facility] Comment on above: Performed By: #### 1 [id number] #### [facility] [address] [place] [address] Influenzae B Ag Negative Normal Negative [facility] Comment on above: Result Comment: Test sensitivity and specificity vary for age group, specimen type, antigen types, and prevalence of disease. Test results must be evaluated in conjunction with other clinical data available to the physician. Individuals who received nasally administered Influenza A vaccine may have positive test results up to 3 days after vaccination. Performed By: #### 1 [id number] #### [facility] [address] [place] [address] Interdisciplinary Note - [place] e Manageron 04-04-2024 Interdisciplinary Note - High Rigger Interdisciplinary Note - High Rigger CRM to room 306 Patient is awake, alert and oriented. Patient verified PCP, DME and insurance. Patient is from home with her Spouse. She will have a ride at [place]. Patient is an inpatient. She completed IMM 04/04. Patient is here for fever, PNA. 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 Per patient she has a walker at home. She is current with [facility]. She declined any needs for further DME or SNF stay. Patient was provided CRM contact, rickie board updated. CRM following CRM will get updates from [employer] JUNIOR ASSISTANT MANAGER at 10 AM Normal [facility] Comment on above: Result Comment: Elec tronically Signed By: Roaslinda Vogel\.br\Date and Time Signed: 04/04/24 10:24 EDT Ironon 04-04-2024 Iron [Mass/Vol] 19 microgram/dL Low 35-153 [facility] Comment on above: Performed By: #### 2 [id number] #### [facility] [address] [place] [address] LDHon 04-04-2024 LDH 318 Int._Unit/L High 93-218 [facility] Comment on above: Performed By: #### 2 [id number] #### [facility] [address] [place] [address] Laboratory - Microbiology an d Antimicrobial susceptibilityOrdered By: Jasmin Desai on 04-04-2024 Bacteria identified Cx Nom (U) 200 cfu/ml Mixed skin contaminants [facility] MRSA DNA DIETER+probe Ql (Unsp spec) MRSA Negative. [facility] Lactic Acidon 04-04-2024 Lactic Acid Lvl 2.1 mmol/L Normal 0.5-2.2 [facility] Comment on above: Performed By: #### 2 [id number] #### [facility] [address] [place] [address] Lactic Acid Lvl 2.7 mmol/L High 0.5-2.2 [facility] Comment on above: Performed By: #### 2 [id number] #### [facility] [address] [place] [address] MICRO OTHER TESTSOrdered By: Damion Grigsby on 04-04-2024 Influenzae A Ag Negative (04/04/24 1:00 AM) Normal Negative [facility] Man Sero Influenzae B Ag Negative 2 (04/04/24 1:00 AM) Normal Negative [facility] Comment on above: Interpretive Data: [...] NEG Ctl Pass (04/04/24 1:00 AM) Normal [facility] Man Sero Rapid COV Int POS Ctl Pass (04/04/24 1:00 AM) Normal [facility] Sero SARS-CoV+SARS-CoV-2 (COVID-19) Ag IA.rapid Ql (Resp) Not Detected 18 (04/04/24 1:00 AM) Normal Not Detected [facility] Comment on above: Interpretive Data: T he DEXMA Veritor System for Rapid Detection of SARS-CoV-2 [...] to follow at 7 days. [facility] PT & PTTon 04-04-2024 aPTT Coag (PPP) [Time] 36.3 second(s) Normal 25.1-36.5 [facility] Comment on above: Result Comment: Para [...] the same coagulation reagent and instrumentation as [facility]. Currently there are no coagulation studies available worldwide for children to 14 days, and no normal ranges. Heparin therapeutic range (represented by Anti-Factor Xa activity of 0.2 - 0.4 U/mL) corresponds to PTT of 56.6 - 109.0 sec. Performed By: #### 1 [id number] #### [facility] [address] [place] [address] INR Coag (PPP) [Relative time] 1.09 {INR} Invalid Interpretation Code [facility] Comment on above: Result Comment: INR results are specifically intended to assess patients stabilized on long-term Anticoagulation therapy suggested INR???s ???Less Intensive Anticoagulation??? 2.0 ??? 3.0 Conventional Range 3.0 ??? 4.5 Performed By: #### 1 [id number] #### [facility] [address] [place] [address] PT Coag (PPP) [Time] 12.2 second(s) Normal 9.4-12.5 [facility] Comment on above: Result Comment: 15 [...] the same coagulation reagent and instrumentation as [facility]. Currently there are no coagulation studies available worldwide for children to 14 days, and no normal ranges. Performed By: #### 1 [id number] #### [facility] [address] [place] [address] Procalcitoninon 04-04-2024 Procalcitonin 16.47 ng/mL High .00-.50 [facility] Comment on above: Result Comment: <0.5 [...] to 24 hours. Performed By: #### 2 [id number] #### [facility] [address] [place] [address] Procalcitonin 6.29 ng/mL High .00-.50 [facility] Comment on above: Result Comment: <0.5 [...] to 24 hours. Performed By: #### 2 [id number] #### [facility] [address] [place] [address] Rapid COVID Antigen ([facility])on 04-04-2024 Rapid COV Int NEG Ctl Pass Normal [facility] Comment on above: Performed By: #### 2 [id number] #### [facility] [address] [place] [address] Rapid COV Int POS Ctl Pass Normal [facility] Comment on above: Performed By: #### 2 [id number] #### [facility] [address] [place] [address] SARS-CoV+SARS-CoV-2 (COVID-19) Ag IA.rapid Ql (Resp) Not detected Normal Not Detected [facility] Comment on above: Result Comment: The DEXMA Veritor??? System for Rapid Detection of SARS-CoV-2 [...] other viruses or pathogens; and, in the [facility], this test is only authorized for the duration of the declaration that circumstances exist justifying the authorization of emergency use of in vitro diagnostics for detection and/or diagnosis of the virus that causes COVID-19 under Section 564(b)(1) of the Act, 21 U.S.C. ??? 360bbb-3(b)(1), unless the authorization is terminated or revoked sooner. Performed By: #### 2 [id number] #### [facility] [address] [place] [address] Reference Laboratory Testing Ordered By: [facility] DomainUser on 04-04-2024 L. pneumophila 1 Ag IA Ql (U) Negative Invalid Interpretation Code Negative [facility] [employer] Comment on above: Result Comment: Pres umptive negative for L. pneumophila serogroup 1 antigen in urine, suggesting no recent or current infection. Legionnaires' disease cannot be ruled out since other serogroups and species may also cause disease. Performed at: [facility] [id number] MD Geovanny Chapman Respiratory Panel by PCRon Adenovirus DNA DIETER+non-probe Ql (Nph) Not detected Normal [facility] Comment on above: Result Comment: Test ing was performed using nucleic acid amplification including Influenza A, Influenza A H1, Influenza A H3, Influenza B, RSV A, RSV B, Adenovirus, Human Metapneumovirus, Parainfluenza 1,2,3, and 4, Rhinovirus, Bordetella parapertussis/bronchiseptica, Bordetella holmesii, and Bordetella pertussis. Performed By: #### 1 [id number] #### [facility] [address] [place] [address] B. parapertussis DNA DIETER+probe Ql (Upper resp) Not detected Normal Not Detected [facility] Comment on above: Performed By: #### 1 [id number] #### [facility] [address] [place] [address] B. pertussis DNA DIETER+probe Ql (Upper resp) Not detected Normal Not Detected [facility] Comment on above: Performed By: #### 1 [id number] #### [facility] [address] [place] [address] FLUAV H1 RNA DIETER+non-probe Ql (Nph) Not detected Normal [facility] Comment on above: Performed By: #### 1 [id number] #### [facility] [address] [place] [address] FLUAV H3 RNA DIETER+non-probe Ql (Nph) Not detected Normal [facility] Comment on above: Performed By: #### 1 [id number] #### [facility] [address] [place] [address] FLUAV RNA DIETER+non-probe Ql (Nph) Not detected Normal [facility] Comment on above: Performed By: #### 1 [id number] #### [facility] [address] [facility] [place] [address] FLUBV RNA DIETER+non-probe Ql (Nph) Not detected Normal [facility] Comment on above: Performed By: #### 1 [id number] #### [facility] [address] [place] [address] Human Metapneumovirus Not detected Normal [facility] Comment on above: Result Comment: This test result should be correlated with clinical presentations and medical history by a healthcare provider to determine its clinical significance. Performed By: #### 1 [id number] #### [facility] [address] [place] [address] Parainfluenza virus 1 RNA DIETER+non-probe Ql (Nph) Not detected Normal [facility] Comment on above: Performed By: #### 1 [id number] #### [facility] [address] [place] [address] Parainfluenza virus 2 RNA DIETER+non-probe Ql (Nph) Not detected Normal [facility] Comment on above: Performed By: #### 1 [id number] #### [facility] [address] [place] [address] Parainfluenza virus 3 RNA DIETER+non-probe Ql (Nph) Not detected Normal [facility] Comment on above: Performed By: #### 1 [id number] #### [facility] [address] [place] [address] Parainfluenza virus 4 RNA DIETER+non-probe Ql (Nph) Not detected Normal [facility] Comment on above: Performed By: #### 1 [id number] #### [facility] [address] [place] [address] Resp Panel Intrl QC Pass Normal [facility] Comment on above: Performed By: #### 1 [id number] #### [facility] [address] [place] [address] Rhinovirus+Enterovirus RNA DIETER+non-probe Ql (Nph) Not detected Normal [facility] Comment on above: Performed By: #### 1 [id number] #### [facility] [address] [place] [address] RSV RNA DIETER+non-probe Ql (Nph) Not detected Normal [facility] Comment on above: Performed By: #### 1 [id number] #### [facility] [address] [place] [address] Retic Counton 04-04-2024 Reticulocytes/100 RBC (Bld) 1.5 % Normal 0.5-2.2 [facility] Comment on above: Performed By: #### 2 [id number] #### [facility] [address] [place] [address] TIBC Calculatedon 04-04-2024 Iron binding capacity [Mass/Vol] 323 microgram/dL Normal 250-400 [facility] Comment on above: Performed By: #### 1 [id number] #### [facility] [address] [place] [address] Transferrin [Mass/Vol] 231 mg/dL Normal 200-370 [facility] Comment on above: Performed By: #### 1 [id number] #### [facility] [address] [place] [address] TSH With T4fr Reflexon 04-04 TSH Qn 2.22 m[IU]/L Normal 0.34-5.60 [facility] Comment on above: Performed By: #### 1 [id number] #### [facility] [address] [place] [address] Troponinon 04-04-2024 Troponin HS 43.00 pg/mL Abnormal .04-01. [facility] Comment on above: Result Comment: Crit [...] High Sensitivity Troponin I Instructions For Use, MeilleurMobileJanuary 2018) Performed By: #### 2 [id number] #### [facility] [address] [place] [address] Troponin 0 Hr.on 04-04-2024 Troponin HS 24.50 pg/mL Normal 10.10-27.10 [facility] Comment on above: Result Comment: The 95% CI (Confidence Interval) PPV (Positive Predictive Value) for myocardial infarction in females is 38 pg/mL, in males 51 pg/mL. The results should be used in conjunction with clinical conditions of myocardial infarction. (Healcerion High Sensitivity Troponin I Instructions For Use, [employer], January 2018) Performed By: #### 1 [id number] #### [facility] [address] [place] [address] Troponin 1 Hr.on 04-04-2024 Troponin HS 65.10 pg/mL Abnormal 10.10-27.10 [facility] Comment on above: Result Comment: Crit ical Result Verified by Previous Result Critical Result I_TnIHS:65.1 Called to and read back by: MADAI MAE at: 04/04/2024 03:42 by:BAB The 95% CI (Confidence Interval) PPV (Positive Predictive Value) for myocardial infarction in females is 38 pg/mL, in males 51 pg/mL. The results should be used in conjunction with clinical conditions of myocardial infarction. (Healcerion High Sensitivity Troponin I Instructions For Use, [employer], January 2018) Performed By: #### 1 [id number] #### [facility] [address] [place] [address] Troponin 3 Hr.on 04-04-2024 Troponin HS 67.80 pg/mL Abnormal 10.10-27.10 [facility] Comment on above: Result Comment: Crit [...] Cecilia, January 2018) Performed By: #### 1 [id number] #### [facility] [address] [place] [address] UA with Cult Rflxon 20 24 Bilirubin Ql (U) Negative Normal Negative [facility] Comment on above: Performed By: #### 4 [id number] #### [facility] [address] [place] [address] Clarity (U) Turbid Abnormal Clear [facility] Comment on above: Performed By: #### 4 [id number] #### [facility] [address] [place] [address] Color (U) Light-Yellow Normal Yellow [facility] Comment on above: Result Comment: Micr oscopic readings are only performed on those samples that meet specific criteria set forth by [facility]. Performed By: #### 4 [id number] #### [facility] [address] [place] [address] Epithelial cells.squamous Auto (Urine sed) [#/Area] 0-2 Invalid Interpretation Code [facility] Comment on above: Performed By: #### 4 [id number] #### [facility] [address] [place] [address] Glucose Ql (U) Negative Normal Negative [facility] Comment on above: Performed By: #### 4 [id number] #### [facility] [address] [place] [address] Hemoglobin Auto test strip (U) [Mass/Vol] Trace Abnormal Negative [facility] Comment on above: Performed By: #### 4 [id number] #### [facility] [address] [place] [address] Ketones Auto test strip Ql (U) Negative Normal Negative [facility] Comment on above: Performed By: #### 4 [id number] #### [facility] [address] [place] [address] Leukocyte esterase Auto test strip Ql (U) 500 Clint/uL Abnormal Negative [facility] Comment on above: Performed By: #### 4 [id number] #### [facility] [address] [place] [address] Mucus Auto Ql (U) Trace Normal Negative [facility] Comment on above: Performed By: #### 4 [id number] #### [facility] [address] [place] [address] Nitrite Auto test strip Ql (U) 1+ mg/dL Abnormal Negative [facility] Comment on above: Performed By: #### 4 [id number] #### [facility] [address] [place] [address] pH (U) 6.0 [pH] Invalid Interpretation Code 5.0-9.0 [facility] Comment on above: Performed By: #### 4 [id number] #### [facility] [address] [place] [address] Protein Ql (U) Trace Abnormal Negative [facility] Comment on above: Performed By: #### 4 [id number] #### [facility] [address] [place] [address] RBC Ql (U) 4-20 Abnormal 0-3 [facility] Comment on above: Performed By: #### 4 [id number] #### [facility] [address] [place] [address] Specific gravity (U) [Rel density] 1.018 Invalid Interpretation Code 1.005-1.030 [facility] Comment on above: Performed By: #### 4 [id number] #### [facility] [address] [place] [address] Urobilinogen (U) [Mass/Vol] Negative Normal Negative [facility] Comment on above: Performed By: #### 4 [id number] #### [facility] [address] [place] [address] WBC Auto (Urine sed) [#/Area] >75 Abnormal 0-5 [facility] Comment on above: Performed By: #### 4 [id number] #### [facility] [address] [place] [address] Type of Urine collection method Clean Catch Normal [facility] Comment on above: Performed By: #### 4 [id number] #### [facility] [address] [place] [address] URINALYSISOrdered By: Lee Ann forrest on 04-04-2024 [...] that meet specific criteria set forth by [facility]. Epithelial cells.squamous Auto (Urine sed) [...] Urobilinogen (U) [Mass/Vol] Negative Normal Negativemg/ dL [facility] UA Auto SS WBC Auto (Urine sed) [#/Area] >75 *ABN* (04/04/24 1:08 PM) Invalid Interpretation Code 0-5 [facility] UA Auto SS URINALYSISOrdered By: Mi Delvalle on 04-04-2024 UA Spec Desc Clean Catch (04/04/24 1:08 PM) Normal [facility] UA Auto SS Vit B12on 04-04-2024 Cobalamin (Vitamin B12) [Mass/Vol] 156 pg/mL Normal 50-1500 [facility] Comment on above: Performed By: #### 2 [id number] #### [facility] [address] [place] [address] XR Chest Single Viewon 04-04 XR Chest [...] mGy = na DAP = na Normal [facility] eGFRon 04-04-2024 eGFR 26 mL/min/1.73 m2 Low >=59 [facility] Comment on above: Performed By: #### 1 [id number] #### [facility] [address] [place] [address] Laboratory - Chemistry and C hemistry - challengeon 01-16-2024 Bilirubin Ql (U) Negative NEGATIVE [facility] Glucose (U) [Mass/Vol] Negative NEGATIVE [facility] Ketones Ql (U) Negative NEGATIVE [facility] pH (U) 6.5 [pH] 5.0-9.0 [facility] Specific gravity (U) [Rel density] 1.015 1.005-1.025 [facility] Urobilinogen Qn (U) 0.2 {Macie'U}/dL 0.2-1.0 [facility] Laboratory - Microbiology an d Antimicrobial susceptibilityon 01-16-2024 Bacteria identified Cx Nom (U) [facility] Laboratory - Specimen inform ationon 01-16-2024 Appearance (U) CLEAR CLEAR [facility] Color (U) LT. YELLOW YELLOW [facility] Laboratory - Urinalysison Leukocyte esterase Test strip Ql (U) TRACE Abnormal NEGATIVE [facility] Mucus Ql (Urine sed) NONE SEEN NONE SEEN [facility] Nitrite Ql (U) Negative NEGATIVE [facility] Protein Ql (U) Negative NEG/TRACE [facility] No Panel Informationon 01-15 Miscellaneous Test Comment See comment [facility] Comment on above: Specimen Source: UCC - Urine,Clean Catch - Urine CC - 200.100 Urine Bacteria TRACE #/HPF Abnormal NONE SEEN [facility] Urine Culture Reflexed YES [facility] Urine Microscopic Review YES [facility] Urine Occult Blood Negative NEGATIVE [facility] Urine Other Casts NONE SEEN #/LPF NONE SEEN [facility] Urine Other Crystals None Seen #/HPF None Seen [facility] Urine RBC NONE SEEN #/HPF 0-2 [facility] Urine Squamous Epithelial Cells RARE #/LPF NONE/RARE [facility] Urine WBC 5-10 #/HPF Abnormal NONE SEEN [facility] Erythrocyte distribution wid th Auto (RBC) [Ratio]on 12-13-2023 Erythrocyte distribution width (RBC) [Ratio] 13.9 % 11.0-15.0 [facility] Estimated glomerular filtrat ion rate (GFR) non- Americanon 12-13-2023 GFR/1.73 sq M.predicted among non-blacks MDRD (S/P/Bld) [Vol rate/Area] 30 mL/min/{1.73_m2} Low >=60 [facility] Hematocrit Auto (Bld) [Volum e fraction]on 12-13-2023 Hematocrit (Bld) [Volume fraction] 36.2 % 36.0-48.0 [facility] Hemoglobin [Mass/volume] in Bloodon 12-13-2023 Hemoglobin (Bld) [Mass/Vol] 11.5 g/dL Low 12.0-16.0 [facility] Iron binding capacity [Mass/ volume] in Serum or Plasmaon 12-13-2023 Iron binding capacity [Mass/Vol] 310.0 ug/dL 250.0-450.0 [facility] Iron saturation [Mass Fracti on] in Serum or Plasmaon 12-13-2023 Iron saturation [Mass fraction] 11.3 % [facility] Laboratory - Chemistry and C hemistry - challengeon 12-13-2023 Albumin [Mass/Vol] 3.3 g/dL Low 3.4-5.0 [facility] Calcium [Mass/Vol] 9.4 mg/dL 8.5-10.1 [facility] Chloride [Moles/Vol] 102 mmol/L 98-[address] [facility] CO2 [Moles/Vol] 31.0 mmol/L 21.0-32.[address] [facility] Creatinine [Mass/Vol] 1.67 mg/dL High 0.55-1.02 [facility] Ferritin [Mass/Vol] 32.0 ng/mL 8.0-252.0 [facility] GFR/1.73 sq M.predicted MDRD (S/P/Bld) [Vol rate/Area] 36 mL/min/{1.73_m2} Low >=60 [facility] Glucose [Mass/Vol] 118 mg/dL High 74-106 [facility] Iron [Mass/Vol] 35.0 ug/dL Low 50.0-170.0 [facility] Magnesium [Mass/Vol] 1.8 mg/dL 1.8-2.[address] [facility] Potassium [Moles/Vol] 4.1 mmol/L 3.5-5.1 [facility] Sodium [Moles/Vol] 140 mmol/L 136-145 [facility] Urate [Mass/Vol] 7.5 mg/dL High 2.6-6.[address] [facility] Urea nitrogen [Mass/Vol] 22.0 mg/dL High 7.0-18.0 [facility] Urea nitrogen/Creatinine [Mass ratio] 13.2 mg/mg [facility] Bilirubin Ql (U) Negative NEGATIVE [facility] Glucose (U) [Mass/Vol] Negative NEGATIVE [facility] Ketones Ql (U) Negative NEGATIVE [facility] pH (U) 6.5 [pH] 5.0-9.0 [facility] Specific gravity (U) [Rel density] 1.010 1.005-1.025 [facility] Urobilinogen Qn (U) 0.2 {Macie'U}/dL 0.2-1.0 [facility] Laboratory - Specimen inform ationon 12-13-2023 Appearance (U) CLEAR CLEAR [facility] Color (U) LT. YELLOW YELLOW [facility] Laboratory - Urinalysison Leukocyte esterase Test strip Ql (U) TRACE Abnormal NEGATIVE [facility] Mucus Ql (Urine sed) NONE SEEN NONE SEEN [facility] Nitrite Ql (U) Negative NEGATIVE [facility] Protein (U) [Mass/Vol] 9.8 mg/dL <=11.9 [facility] Protein Ql (U) Negative NEG/TRACE [facility] Leukocytes [#/volume] correc olamide for nucleated erythrocytes in Blood by Automated counon 12-13-2023 WBC corrected for nucl RBC Auto (Bld) [#/Vol] 6.2 10 3/uL 4.0-11.0 [facility] MCH Auto (RBC) [Entitic mass ]on 12-13-2023 MCH (RBC) [Entitic mass] 29.6 pg 26.7-34.0 [facility] MCHC Auto (RBC) [Mass/Vol]on 12-13-2023 MCHC (RBC) [Mass/Vol] 31.8 g/dL 29.9-35.2 [facility] MCV Auto (RBC) [Entitic vol] on 07-09-2024 MCV (RBC) [Entitic vol] 93.1 fL 81.0-99.0 [facility] No Panel Informationon 12-12 25-Hydroxy Vitamin D Total 75.0 ng/mL [facility] Comment on above: <20 ng/mL Vit D defi cient20-<30 ng/mL Vit D cjygbooapznk22-603 ng/mL Vit D sufficient>100 ng/mL Potential Toxicity Parathyroid Hormone (Intact) 39 pg/mL 15-65 [facility] Comment on above: Performed at: - [address] [id number] Director: Jerry Joseph PhD, Phone: [phone] Phosphorus Level 3.5 mg/dL 2.6-4.[address] [facility] Urine Bacteria SMALL #/HPF Abnormal NONE SEEN [facility] Urine Occult Blood Negative NEGATIVE [facility] Urine Other Casts NONE SEEN #/LPF NONE SEEN [facility] Urine Other Crystals None Seen #/HPF None Seen [facility] Urine Random Creatinine 27.29 mg/dL 20.0 0-300.0 0 [facility] Urine RBC 0-2 #/HPF 0-2 [facility] Urine Squamous Epithelial Cells FEW #/LPF Abnormal NONE/RARE [facility] Urine WBC 5-10 #/HPF Abnormal NONE SEEN [facility] Platelet mean volume Auto (B ld) [Entitic vol]on 12-13-2023 Platelet mean volume (Bld) [Entitic vol] 8.7 fL Low 9.5-13.5 [facility] Platelets Auto (Bld) [#/Vol] on 12-13-2023 Platelets (Bld) [#/Vol] 293 10 3/uL 150-450 [facility] RBC Auto (Bld) [#/Vol]on RBC (Bld) [#/Vol] 3.89 10 6/uL Low 4.20-5.40 [facility] Serum or plasma anion gap de terminationon 12-13-2023 Anion gap [Moles/Vol] 11.1 mmol/L [facility] Urine protein/creatinine rat ioon 12-13-2023 Protein/Creatinine (U) [Ratio] 0.36 [facility] Office Visiton 11-07-2023 Follow-up visit [id number] Nadia Patterson 1945 F Date Provider Department Center 11/07/2023 JenniferJOSH HANNAH DOMON[facility] No family history on file Level of Service:[address]140 [place] OFFICE/OUTPATIENT ESTABLISHED LOW MDM 20 MIN Normal [facility] Office Visiton 08-10-2023 Follow-up visit [id number] Nadia Patterson 1945 F Date Provider Department Center 08/10/2023 JenniferJOSH HANNAH [facility] No family history on file Level of Service:23704 [place] OFFICE/OUTPATIENT ESTABLISHED MOD MDM 30 MIN Normal [facility] Orders Onlyon 08-10-2023 Orders Only [id number] Nadia Patterson 1945 F Date Provider Department Center 08/10/2023 [facility] No family history on file Normal [facility] Discharge Instructionson Discharge Instructions [id number] 2#[id number] Normal [facility] BMPon 08-02-2023 Anion gap [Moles/Vol] 11 mmol/L Normal -16 [facility] Comment on above: Performed By: #### 1 [id number], 5169108, 5217877 ####[facility] [address] [place] [address] BUN/Creat Ratio 15 No Units Normal 10-20 [facility] Comment on above: Performed By: #### 1 [id number], 2036316, 9924823 ####[facility] [address] [place] [address] Calcium [Mass/Vol] 9.1 mg/dL Normal 8.9-11.1 [facility] Comment on above: Performed By: #### 1 4173918, 3285572, 1456654 ####[facility] [address] [place] [address] Chloride [Moles/Vol] 106 mmol/L Normal 101-111 [facility] Comment on above: Performed By: #### 1 0776318, 2759020, 6488266 ####[facility] [address] [place] [address] CO2 [Moles/Vol] 29 mmol/L Normal 21-31 [facility] Comment on above: Performed By: #### 1 5622155, 5219619, 9272765 ####[facility] [address] [place] [address] Creatinine [Mass/Vol] 1.5 mg/dL High 0.5-1.3 [facility] Comment on above: Performed By: #### 1 6479528, 4899627, 2956150 ####[facility] [address] [place] [address] Glucose [Mass/Vol] 128 mg/dL Normal 55-199 [facility] Comment on above: Performed By: #### 1 9777838, 8438084, 2922259 ####[facility] [address] [place] [address] Potassium [Moles/Vol] 4.0 mmol/L Normal 3.5-5.3 [facility] Comment on above: Performed By: #### 1 7462081, 7594067, 9463640 ####[facility] [address] [place] [address] Sodium [Moles/Vol] 142 mmol/L Normal 135-145 [facility] Comment on above: Performed By: #### 1 7389877, 5648553, 0088810 ####[facility] [address] [place] [address] Urea nitrogen [Mass/Vol] 22 mg/dL High 5-21 [facility] Comment on above: Performed By: #### 1 9647037, 9358724, 2588989 ####[facility] [address] [place] [address] CBC w/ Auto Diffon 4 Basophil Absolute 0.1 E9/L Normal 0.0-0.2 [facility] Comment on above: Performed By: #### 1 8303273, 4367875, 0509420 ####[address] [address] Basophils/100 WBC (Bld) 1.1 % Normal 0.0-2.0 [facility] Comment on above: Performed By: #### 1 9673207, 9448512, 8719894 ####[address] [address] Eos Absolute 0.2 E9/L Normal 0.0-0.5 [facility] Comment on above: Performed By: #### 1 5317806, 5236279, 9012959 ####[address] [address] Eosinophils/100 WBC (Bld) 4.7 % Normal 0.0-8.0 [facility] Comment on above: Performed By: #### 1 9285145, 0702892, 8488677 ####[address] [address] Erythrocyte distribution width (RBC) [Ratio] 14.8 % High 10.9-14.2 [facility] Comment on above: Performed By: #### 1 4520507, 6837749, 1647607 ####[address] [address] Hematocrit (Bld) [Volume fraction] 33.0 % Low 34.0-46.0 [facility] Comment on above: Performed By: #### 1 5860922, 2248772, 0380569 ####[address] [address] Hemoglobin (Bld) [Mass/Vol] 10.7 g/dL Low 12.0-16.0 [facility] Comment on above: Performed By: #### 1 3650803, 1784496, 0148314 ####[address] [address] Lymph Absolute 2.1 E9/L Normal 1.0-4.0 [facility] Comment on above: Performed By: #### 1 8582427, 3086373, 0887067 ####[address] [address] Lymphocytes/100 WBC (Bld) 39.9 % Normal 14.0-50.0 [facility] Comment on above: Performed By: #### 1 4317628, 4115256, 5511656 ####[address] [address] MCH (RBC) [Entitic mass] 29.1 pg Normal 27.0-34.0 [facility] Comment on above: Performed By: #### 1 0401890, 2424254, 8554194 ####[address] [address] MCHC (RBC) [Mass/Vol] 32.4 g/dL Normal 31.4-36.0 [facility] Comment on above: Performed By: #### 1 3339812, 8547167, 1979292 ####[address] [address] MCV (RBC) [Entitic vol] 89.6 fL Normal 80.0-100.0 [facility] Comment on above: Performed By: #### 1 4656352, 1594328, 3670811 ####[address] [address] Dukes Absolute 0.4 E9/L Normal 0.2-1.0 [facility] Comment on above: Performed By: #### 1 2798894, 5897838, 5002140 ####[address] [address] Monocytes/100 WBC (Bld) 8.1 % Normal 4.0-14.0 [facility] Comment on above: Performed By: #### 1 3899938, 1290732, 9157551 ####[address] [address] Neutro Absolute 2.4 E9/L Normal 2.0-7.5 [facility] Comment on above: Performed By: #### 1 9533760, 7882813, 1257928 ####[facility] [address] [place] [address] Neutro Auto 46.2 % Normal 36.0-75.0 [facility] Comment on above: Performed By: #### 1 0997759, 2844301, 8395412 ####[place] [address] [place] [address] Platelet 236.0 E9/L Normal 150.0-500.0 [facility] Comment on above: Performed By: #### 1 9649858, 7919052, 7368273 ####[place] [place] [address] Platelet mean volume (Bld) [Entitic vol] 6.8 fL Normal 6.4-10.8 [facility] Comment on above: Performed By: #### 1 9084674, 0804416, 6672318 ####[address] [address] RBC 3.7 E12/L Low 4.3-5.9 [facility] Comment on above: Performed By: #### 1 9773819, 4822105, 2337952 ####[facility] [address] [place] [address] WBC 5.3 E9/L Normal 4.0-11.0 [facility] Comment on above: Performed By: #### 1 0851858, 4863491, 6292886 ####[facility] [address] [place] [address] CHEMISTRYOrdered By: SYSTEM SYSTEM on 08-02-2023 Anion [...] Normal 80.0 - 100.0 fL Remisol Heme Dukes Absolute 0.4 E9/L Normal 0.2 - 1.0 [...] Inpatient Clinical Summaryon 08-02-2023 Inpatient Clinical Summary [place] [id number] Clinical Summary Person Information: Name: NADIA PATTERSON Age: 78 Years : 1945 Sex: Female PCP: HARPAL HAYES MD Marital Status: Phone: [phone] Race: White Ethnicity: Non- or Language: Mongolian Visit Id: Visit Reason: Cough; Weakness or fatigue; WEAKNESS Speciality: Acuity: Enc Type: Inpatient Med Service: Medical Arrival: 07/30/2023 20:28:48 Discharge: Dispo Type: Admitted as IP to this [facility] Address: [address] [place] [id number] Provider Notes: Diagnosis: 1:Generalized weakness; 2:Pneumonia; 3:Lactic [...] By Mouth every 6 hours. acetaminophen-hydroc odone ([place] 325 mg-5 mg oral tablet) 1 Tablets [...] Follow up: With: Address: When: FREDDY BRIGGS, [place] [address] 08/09/2023 10:30 AM Comments: Call for followup appointment Patient Education Information: Community-Acquired Pneumonia, Adult, Rzld-ph-Ckie Normal [facility] Inpatient Patient Summaryon 08-02-2023 Inpatient Patient [...] Strength 500 mg oral tablet) acetaminophen-hydroc odone ([place] 325 mg-5 mg oral tablet) aspirin (aspirin [...] Diagnostic Test Results None Pharmacy Information Other: [facility] Discharge Instructions Please return to ER if symptoms change or worsen. Please take medication as prescribed. Please follow-up with PCP New Follow Up Appointments after Discharge Follow Up with FREDDY BRIGGS, GRETEL ROWAN When: 08/09/2023 10:30 AM EST Where: [address] [place] [address]- Medications What How Much When Instructions Next Dose New azithromycin (azithromycin 250 mg Tab) 1 Tablets By Mouth Every day start Pickup at [place] [address] 08/03/23 9am New cefuroxime (cefuroxime 500 mg oral tablet) 1 Tablets By Mouth 2 times a day start Pickup at [place] [address] 08/03/23 9am Changed pregabalin 150 Milligram By Mouth 2 times a day 08/02/23 9pm Unchanged acetaminophen (Tylenol Extra Strength 500 mg oral tablet) 2 Tablets By Mouth Every 6 hours as needed Unchanged acetaminophen-hydroc odone ([place] 325 mg-5 mg oral tablet) 1 Tablets [...] day 08/02/23 (more content not included)... Normal [facility] Inpatient Patient Summary [address] [address] Patient Discharge Instructions PERSON INFORMATION [...] Follow up: With: Address: When: [address]ARPAL [address]ES [address] [place] [address] 08/09/2023 10:30 AM Comments: Call [...] New Medications [facility], [place] [id number], [phone] azithromycin (azithromycin 250 mg Tab) 1 Tablets [...] hours. Last Dose: Next Dose: acetaminophen-hydroc odone ([place] 325 mg-5 mg oral tablet) 1 Tablets [...] By Mouth (more content not included)... Normal [facility] Interdisciplinary Note - [place] e Manageron 08-02-2023 Interdisciplinary Note - High Rigger Pt is awake and alert in bed, previously rounded with Dr. Meier. PCP verified and insurance information reviewed and DME discussed. Contact information provided and white board updated. Pt is set up with [facility] [place] P t[place] home with and she [place] transport at [place]. Pt is currently on oxygen 3L, plan to stay in hospital today and wean down oxygen. Pt does not have home oxygen, may need desat prior to [place]. Medicare rights reviewed, CRM following Normal [facility] Comment on above: Result Comment: Elec tronically Signed By: Mei Locke RN\.br\Date and Time Signed: 08/02/23 08:26 EST Other Comment: error Interdisciplinary Note - High Rigger Pt is awake and alert in bed, previously rounded with Dr. Meier. PCP verified and insurance information reviewed and DME discussed. Contact information provided and white board updated. Pt states she is current with [facility], and referral to resource center to verify. Pt is from home with spouse and her daughter or will transport [place] Medicare rights reviewed. PT= . CRM following [facility] Comment on above: Result Comment: Elec tronically Signed By: Mei Locke RN\.br\Date and Time Signed: 08/02/23 08:14 EST eGFRon 08-02-2023 eGFR 35 mL/min/1.73 m2 Low >=59 [facility] Comment on above: Order Comment: Order added by Discern Expert. Performed By: #### 1 1370533, 8680876, 5649956 ####[facility] [address] [place] [address] BMPon 08-01-2023 Anion gap [Moles/Vol] 12 mmol/L Normal 6-16 [facility] Comment on above: Performed By: #### 1 9733136, 2025390, 6884704 ####[facility] [address] [place] [address] BUN/Creat Ratio 14 No Units Normal 10-20 [facility] Comment on above: Performed By: #### 1 0290241, 4324331, 8294955 ####[facility] [address] [place] [address] Calcium [Mass/Vol] 9.1 mg/dL Normal 8.9-11.1 [facility] Comment on above: Performed By: #### 1 7056601, 8446473, 2671795 ####[facility] [address] [place] [address] Chloride [Moles/Vol] 103 mmol/L Normal 101-111 [facility] Comment on above: Performed By: #### 1 9407974, 5215769, 6637480 ####[facility] [address] [facility] [place] [address] CO2 [Moles/Vol] 31 mmol/L Normal 21-31 [facility] Comment on above: Performed By: #### 1 0941800, 9415569, 7644297 ####[facility] [address] [place] [address] Creatinine [Mass/Vol] 1.3 mg/dL Normal 0.5-1.3 [facility] Comment on above: Performed By: #### 1 1215461, 5063126, 1206159 ####[facility] [address] [place] [address] Glucose [Mass/Vol] 113 mg/dL Normal 55-199 [facility] Comment on above: Performed By: #### 1 2053583, 9965542, 0288728 ####[facility] [address] [place] [address] Potassium [Moles/Vol] 4.0 mmol/L Normal 3.5-5.3 [facility] Comment on above: Performed By: #### 1 1271470, 0165714, 5914753 ####[address] [address] Sodium [Moles/Vol] 142 mmol/L Normal 135-145 [facility] Comment on above: Performed By: #### 1 4045049, 3085970, 2519644 ####[address] [address] Urea nitrogen [Mass/Vol] 18 mg/dL Normal 5-21 [facility] Comment on above: Performed By: #### 1 1149899, 1818434, 8470797 ####[address] [address] BNPon 08-01-2023 Natriuretic peptide B (Bld) [Mass/Vol] 112 pg/mL High 5-80 [facility] Comment on above: Performed By: #### 1 8467033 ####[address] [address] CBC w/ Auto Diffon 4 Basophil Absolute 0.1 E9/L Normal 0.0-0.2 [facility] Comment on above: Performed By: #### 1 5694188, 6242438, 5882813 ####[address] [address] Basophils/100 WBC (Bld) 1.4 % Normal 0.0-2.0 [facility] Comment on above: Performed By: #### 1 1715981, 1609752, 7399733 ####[address] [address] Eos Absolute 0.3 E9/L Normal 0.0-0.5 [facility] Comment on above: Performed By: #### 1 7483684, 7329404, 4927089 ####[address] [address] Eosinophils/100 WBC (Bld) 6.1 % Normal 0.0-8.0 [facility] Comment on above: Performed By: #### 1 3324515, 0868173, 9937407 ####[address] [address] Erythrocyte distribution width (RBC) [Ratio] 14.9 % High 10.9-14.2 [facility] Comment on above: Performed By: #### 1 4348547, 6694125, 9488752 ####[address] [address] Hematocrit (Bld) [Volume fraction] 34.0 % Normal 34.0-46.0 [facility] Comment on above: Performed By: #### 1 9758075, 6652846, 6723653 ####[place] [address] Hemoglobin (Bld) [Mass/Vol] 11.3 g/dL Low 12.0-16.0 [facility] Comment on above: Performed By: #### 1 3197679, 2232951, 1052337 ####[address] [address] Lymph Absolute 2.4 E9/L Normal 1.0-4.0 [facility] Comment on above: Performed By: #### 1 9779756, 1718033, 0071214 ####[address] [address] Lymphocytes/100 WBC (Bld) 43.6 % Normal 14.0-50.0 [facility] Comment on above: Performed By: #### 1 3179151, 8808797, 8796234 ####[address] [address] MCH (RBC) [Entitic mass] 29.4 pg Normal 27.0-34.0 [facility] Comment on above: Performed By: #### 1 1136327, 8269718, 7705129 ####[address] [address] MCHC (RBC) [Mass/Vol] 33.2 g/dL Normal 31.4-36.0 [facility] Comment on above: Performed By: #### 1 1066929, 9767158, 0083313 ####[address] [address] MCV (RBC) [Entitic vol] 88.5 fL Normal 80.0-100.0 [facility] Comment on above: Performed By: #### 1 1467564, 1970929, 7615998 ####[address] [address] Dukes Absolute 0.4 E9/L Normal 0.2-1.0 [facility] Comment on above: Performed By: #### 1 8992253, 9023946, 7157795 ####[place] [address] Monocytes/100 WBC (Bld) 7.3 % Normal 4.0-14.0 [facility] Comment on above: Performed By: #### 1 6850508, 9080711, 2261650 ####[address] [address] Neutro Absolute 2.2 E9/L Normal 2.0-7.5 [facility] Comment on above: Performed By: #### 1 1894496, 1291879, 7928657 ####[address] [address] Neutro Auto 41.6 % Normal 36.0-75.0 [facility] Comment on above: Performed By: #### 1 1435116, 1559336, 9408638 ####[address] [address] Platelet 251.0 E9/L Normal 150.0-500.0 [facility] Comment on above: Performed By: #### 1 4604094, 2423116, 5226928 ####[address] [place] [address] Platelet mean volume (Bld) [Entitic vol] 7.9 fL Normal 6.4-10.8 [facility] Comment on above: Performed By: #### 1 [id number], 6509483, 6117258 ####[facility] [address] [place] [address] RBC 3.8 E12/L Low 4.3-5.9 [facility] Comment on above: Performed By: #### 1 5071083, 8840748, 1432341 ####[facility] [address] [place] [address] WBC 5.4 E9/L Normal 4.0-11.0 [facility] Comment on above: Performed By: #### 1 2377538, 7402371, 5184795 ####[facility] [address] [place] [address] CHEMISTRYOrdered By: Bid Nerd on 08-01-2023 Anion gap [Moles/Vol] 12 mmol/L [...] 112 pg/mL High 5 - 80 pg/mL [facility] Erma HEMATOLOGYOrdered By: SYSTEM SYSTEM on 08-01-2023 [...] Normal 80.0 - 100.0 fL Remisol Heme Dukes Absolute 0.4 E9/L Normal 0.2 - 1.0 [...] Normal 4.0 - 11.0 E9/L Remisol Heme YoeJ5vld 08-01-2023 HbA1c (Bld) [Mass fraction] 6.7 % High <=5.9 [facility] Comment on above: Order Comment: Order placed by EKM rule. BCC_HGBA1CLABORDER_[facility] Performed By: #### 7 [id number] ####[facility] [address] [place] [address] Interdisciplinary Note - [place] e Manageron 08-01-2023 Interdisciplinary Note - High Rigger Pt is awake and alert in bed, previously rounded with Dr. Meier. Pt is from home with spouse and he will transport at [place]. Inpatient status reviewed, form signed and original [...] therapy evals for HH and agreeable to [facility] HH at [place], referral to be sent to resource center, anticipate DC 08/02/23 [facility] Comment on above: Result Comment: Elec tronically Signed By: Cornelia TAVAREZ, Mei\.br\Date and Time Signed: 08/01/23 14:51 EST Message from Medicareon 07-08 Message from Medicare [id number] 20 [id number] #1.00TIFF [facility] Progress Note-Physicianon Progress Note-Physician Assessment/Plan 1. Generalized [...] and leg pain requiring a dose of [place]. She states this is not a new [...] 08:50:00) Lymph Auto: 43.6 % (08/01/23 08:50:00) Dukes Auto: 7.3 % (08/01/23 08:50:00) Eos Auto: 6.1 % (08/01/23 08:50:00) Basophil Auto: 1.4 % (08/01/23 08:50:00) Neutro Absolute: 2.2 E9/L (08/01/23 08:50:00) Lymph Absolute: 2.4 E9/L (08/01/23 08:50:00) Dukes Absolute: 0.4 E9/L (08/01/23 08:50:00) Eos Absolute: [...] positive Weakness (more content not included)... Normal [facility] Comment on above: Result Comment: Elec tronically Signed By: Saira Lawler\.br\Date and Time Signed: 08/01/23 09:26 EST\.br\Electronically Co-Signed By: Hector Meier DO\.br\Date and Time Co-Signed: 08/01/23 14:28 EST eGFRon 08-01-2023 eGFR 42 mL/min/1.73 m2 Low >=59 [facility] Comment on above: Order Comment: Order added by Discern Expert. Performed By: #### 1 [id number], 5504339, 1205935 ####[facility] [address] [place] [address] CHEMISTRYOrdered By: Cecelia Carrillo on 07-31-2023 HbA1c (Bld) [Mass fraction] 6.7 % High <=5.9% [facility] ChemAutoSS CHEMISTRYOrdered By: SYSTEM SYSTEM on 07-31-2023 [...] High Sensitivity Troponin I Instructions For Use, [employer], January 2018) Troponin 3.50 pg/mL Low 10.10 - 27.10 pg/mL [facility] Comment on above: Interpretive Data: T he 95% CI (Confidence Interval) PPV (Positive Predictive Value) for myocardial infarction in females is 38 pg/mL, in males 51 pg/mL. The results should be used in conjunction with clinical conditions of myocardial infarction. (Access High Sensitivity Troponin I Instructions For Use, [employer], January 2018) Lactic Acid Lvl 2.1 mmol/L [...] High Sensitivity Troponin I Instructions For Use, [employer], January 2018) ED Clinical Summaryon 2023 ED Clinical Summary [place] [id number] ED Clinical Summary Person Information Name: NADIA PATTERSON [facility] Age: 78 Years : 1945 Sex: Female Language: Mongolian PCP: HARPAL HAYES MD Marital Status: Phone: [phone] Visit Id: Visit Reason: Cough; Weakness or fatigue; WEAKNESS Speciality: Acuity: 3 Enc Type: Inpatient Med Service: Emergency Arrival: 07/30/2023 20:28:48 Discharge: LOS: 000 14:42 Checkin: 07/30/2023 20:28:48 Checkout: 07/31/2023 11:10:22 Dispo Type: Admitted as IP to this [facility] EVENTS: Event Name Event Status Request [...] 03:21:59 Meds Admin Request 07/31/2023 03:23:59 ADDRESS: [address] [place] [phone] PHYS DOC NOTES: MEDICAL INFORMATION: Prescriptions Given: Medications to Continue with No Changes Other Medications acetaminophen (Tylenol Extra Strength 500 mg oral tablet) 2 Tablets By Mouth every 6 hours. acetaminophen-hydroc odone ([place]roit 325 mg-5 mg oral tablet) 1 Tablets [...] chest pain. (more content not included)... Normal [facility] ED Note-Physicianon 07-31-19 ED Note-Physician Basic [...] very tired lately. They talked to her laster hand who advised cutting back on her trazodone [...] data avail (more content not included)... Normal [facility] Comment on above: Result Comment: Elec tronically Signed By: Mariela Birch PA-C\.br\Date and Time Signed: 07/30/23 23:16 EST\.br\Electronically Co-Signed By: Michele Marie DO\.br\Date and Time Co-Signed: 07/31/23 01:47 EST ED Patient Education Noteon 07-31-2023 ED Patient Education Note Normal [facility] ED Patient Summaryon 024 ED Patient Summary [place] [id number] Patient Discharge Instructions Person Information Name: NADIA PATTERSON Age: 78 Years Arrival Date: 07/30/2023 20:28:48 Discharge Diagnosis: 1:Generalized weakness; 2:Pneumonia; 3:Lactic acidosis; 4:Fibromyalgia; 5:Diabetes mellitus with polyneuropathy; 6:Hypothyroid; 7:CKD (chronic kidney disease) stage 3, GFR 30-59 ml/min; 8:Dementia Primary Care Physician: HARPAL HAYES MD Provider Information Primary Provider: Michele Marie DO [facility] [place] Operator:Mariela Birch PA-C The exam and treatment you received in the Emergency Department were for an urgent problem and are not intended as complete care. It is important that you follow up with a doctor, nurse practitioner, or physician?s assistant press operator offset for ongoing care. If your symptoms become [...] opioids can be used to help relieve gxmirlwl-kw-mexkfg pain and are often prescribed following a [...] be struggling with addiction, tell your health manager care and ask for guidance or call [facility] National Helpline at 2-199-979-PSWA. (more content not included)... Normal [facility] Influenza A&B Agon Influenzae A Ag Negative Normal Negative [facility] Comment on above: Performed By: #### 1 [id number], [id number] ####[facility] [address] [place] [address] Influenzae B Ag Negative Normal Negative [facility] Comment on above: Result Comment: Test sensitivity and specificity vary for age group, specimen type, antigen types, and prevalence of disease. Test results must be evaluated in conjunction with other clinical data available to the physician. Individuals who received nasally administered Influenza A vaccine may have positive test results up to 3 days after vaccination. Performed By: #### 1 [id number], [id number] ####[facility] [address] [place] [address] Interdisciplinary Note - PTo n 07-31-2023 Interdisciplinary Note - PT Order for ED, pt to be transferred; will attempt PT eval on 08/01/23. Normal [facility] Lactic Acidon 07-31-2023 Lactic Acid Lvl 2.1 mmol/L Normal 0.5-2.2 [facility] Comment on above: Order Comment: Order added by EKS Rule. (FT_LACTIC_ACID_REFLEX) Adds reflex Lactic Acid 4 hours after initial if result is greater than or equal to 2.0. Performed By: #### 2 [id number] ####[facility] [address] [place] [address] MICRO OTHER TESTSOrdered By: Damion Grigsby on 07-31-2023 Influenzae A Ag Negative (07/31/23 3:32 AM) Normal Negative [facility] Man Sero Influenzae B Ag Negative 1 (07/31/23 3:32 AM) Normal Negative [facility] Sero Comment on above: Interpretive Data: T [...] NEG Ctl Pass (07/31/23 3:32 AM) Normal [facility] Man Sero Rapid COV Int POS Ctl Pass (07/31/23 3:32 AM) Normal [facility] Sero SARS-CoV+SARS-CoV-2 (COVID-19) Ag IA.rapid Ql (Resp) Not Detected 6 (07/31/23 3:32 AM) Normal Not Detected [facility] Sero Comment on above: Interpretive Data: T he DEXMA Veritor System for Rapid Detection of SARS-CoV-2 [...] call Irma twice with no answer. Normal [facility] Rapid COVID Antigen (MC)on 07-31-2023 Rapid COV Int NEG Ctl Pass Normal [facility] Comment on above: Performed By: #### 1 [id number], [id number] ####[facility] [address] [place] [address] Rapid COV Int POS Ctl Pass Normal [facility] Comment on above: Performed By: #### 1 3139317, [id number] ####[facility] [address] [place] [address] SARS-CoV+SARS-CoV-2 (COVID-19) Ag IA.rapid Ql (Resp) Not detected Normal Not Detected [facility] Comment on above: Result Comment: The DEXMA Veritor? System for Rapid Detection of SARS-CoV-2 [...] or revoked sooner. Performed By: #### 1 [id number], [id number] ####[facility] [address] [place] [address] Troponin 3 Hr.on 07-31-2023 Troponin 3.60 pg/mL Low 10.10-27.10 [facility] Comment on above: Result Comment: The 95% CI (Confidence Interval) PPV (Positive Predictive Value) for myocardial infarction in females is 38 pg/mL, in males 51 pg/mL. The results should be used in conjunction with clinical conditions of myocardial infarction. (Access High Sensitivity Troponin I Instructions For Use, Manjula Cecilia, January 2018) Performed By: #### 1 [id number] ####[facility] [address] [place] [address] Troponin 6 Hr.on 07-31-2023 Troponin 3.50 pg/mL Low 10.10-27.10 [facility] Comment on above: Result Comment: The 95% CI (Confidence Interval) PPV (Positive Predictive Value) for myocardial infarction in females is 38 pg/mL, in males 51 pg/mL. The results should be used in conjunction with clinical conditions of myocardial infarction. (Access High Sensitivity Troponin I Instructions For Use, [employer], January 2018) Performed By: #### 1 [id number] ####[facility] [address] [place] [address] Troponin 9 Hr.on 07-31-2023 Troponin 4.50 pg/mL Low 10.10-27.10 [facility] Comment on above: Result Comment: The 95% CI (Confidence Interval) PPV (Positive Predictive Value) for myocardial infarction in females is 38 pg/mL, in males 51 pg/mL. The results should be used in conjunction with clinical conditions of myocardial infarction. (Healcerion High Sensitivity Troponin I Instructions For Use, [employer], January 2018) Performed By: #### 1 [id number] ####[address] [address] XR Chest Single Viewon 07-31 XR Chest Single View Exam Date/Time: 07/30/2023 21:01 EST Reason for Exam: Shortness of breath (SOB) Report [facility] [phone] IMPRESSION: There are no acute cardiopulmonary changes. [...] mGy = na DAP = na Normal [facility] BMPon 07-30-2023 Anion gap [Moles/Vol] 15 mmol/L Normal 6-16 [facility] Comment on above: Performed By: #### 2 641494, 21654406, 2507672, 9590606, 3637200, 89453636, 53281311 ####[facility] [address] [place] [address] BUN/Creat Ratio 13 No Units Normal 10-20 [facility] Comment on above: Performed By: #### 2 587092, 60178898, 7281558, 7323095, 4742474, 44412254, 32499617 ####[facility] [address] [place] [address] Calcium [Mass/Vol] 10.0 mg/dL Normal 8.9-11.1 [facility] Comment on above: Performed By: #### 2 308893, 51240674, 9653963, 8795551, 8962831, 92166520, 21444272 ####[facility] [address] [place] [address] Chloride [Moles/Vol] 101 mmol/L Normal 101-111 [facility] Comment on above: Performed By: #### 2 237982, 66207601, 5269176, 0880600, 7074558, 01983644, 50561404 ####[facility] [address] [place] [address] CO2 [Moles/Vol] 31 mmol/L Normal 21-31 [facility] Comment on above: Performed By: #### 2 896720, 85724212, 8944717, 5792331, 4384701, 55971455, 63598181 ####[facility] [address] [place] [address] Creatinine [Mass/Vol] 1.5 mg/dL High 0.5-1.3 [facility] Comment on above: Performed By: #### 2 003649, 02100967, 3116317, 2177372, 6332046, 48592195, 12197327 ####[facility] [address] [place] [address] Glucose [Mass/Vol] 140 mg/dL Normal 55-199 [facility] Comment on above: Performed By: #### 2 042167, 12047056, 5951492, 3087952, 0834130, 99667625, 87652863 ####[facility] [address] [place] [address] Potassium [Moles/Vol] 4.0 mmol/L Normal 3.5-5.3 [facility] Comment on above: Performed By: #### 2 424450, 72988939, 9229635, 6396273, 8894226, 33168495, 11931362 ####[facility] [address] [place] [address] Sodium [Moles/Vol] 143 mmol/L Normal 135-145 [facility] Comment on above: Performed By: #### 2 105790, 60152497, 9842339, 7382775, 9825343, 94585416, 93576275 ####[facility] [address] [place] [address] Urea nitrogen [Mass/Vol] 20 mg/dL Normal 5-21 [facility] Comment on above: Performed By: #### 2 999340, 71983204, 4561380, 4672864, 5592926, 72717135, 28490090 ####[facility] [address] [place] [address] BNPon 07-30-2023 Int Ctr BNP Pass Normal [facility] Comment on above: Performed By: #### 2 995390, 64266301, 0719773, 5665369, 0428093, 31584921, 00037811 ####[facility] [address] [place] [address] Natriuretic peptide B (Bld) [Mass/Vol] 114 pg/mL High 5-80 [facility] Comment on above: Performed By: #### 2 357852, 56855656, 8481352, 9287036, 1616564, 88757381, 28180563 ####[place] [address] [place] [address] CBC w/ Auto Diffon 4 Basophil Absolute 0.0 E9/L Normal 0.0-0.2 [facility] Comment on above: Performed By: #### 2 350777, 74729049, 8820001, 1863875, 0931176, 84017827, 17676762 ####[address] [address] Basophils/100 WBC (Bld) 0.9 % Normal 0.0-2.0 [facility] Comment on above: Performed By: #### 2 437261, 45259862, 9044978, 7035399, 6037689, 48054284, 25345715 ####[address] [address] Eos Absolute 0.2 E9/L Normal 0.0-0.5 [facility] Comment on above: Performed By: #### 2 188780, 09430491, 4290164, 7096391, 7307932, 52655422, 89383943 ####[address] [address] Eosinophils/100 WBC (Bld) 4.1 % Normal 0.0-8.0 [facility] Comment on above: Performed By: #### 2 951943, 32435965, 4442157, 1098433, 7783509, 58760488, 53774292 ####[address] [address] Erythrocyte distribution width (RBC) [Ratio] 14.7 % High 10.9-14.2 [facility] Comment on above: Performed By: #### 2 561408, 76527822, 1765435, 8230836, 0659729, 90731549, 45437040 ####[address] [address] Hematocrit (Bld) [Volume fraction] 38.0 % Normal 34.0-46.0 [facility] Comment on above: Performed By: #### 2 829553, 28398904, 6692475, 1732072, 0044543, 11418931, 35574336 ####[facility] [address] [place] [address] Hemoglobin (Bld) [Mass/Vol] 12.5 g/dL Normal 12.0-16.0 [facility] Comment on above: Performed By: #### 2 554373, 99202777, 6304609, 3833908, 3074071, 85035949, 67431454 ####[address] [address] Lymph Absolute 1.7 E9/L Normal 1.0-4.0 [facility] Comment on above: Performed By: #### 2 723546, 64675105, 3409517, 8715132, 1178955, 52663594, 87181212 ####[address] [address] Lymphocytes/100 WBC (Bld) 30.5 % Normal 14.0-50.0 [facility] Comment on above: Performed By: #### 2 854073, 70484240, 2054467, 2857015, 4012890, 75363984, 37971536 ####[address] [address] MCH (RBC) [Entitic mass] 29.2 pg Normal 27.0-34.0 [facility] Comment on above: Performed By: #### 2 624349, 84256527, 4761659, 6548047, 3783686, 74038670, 38489537 ####[address] [address] MCHC (RBC) [Mass/Vol] 32.9 g/dL Normal 31.4-36.0 [facility] Comment on above: Performed By: #### 2 628450, 88140849, 7949846, 5991738, 1215694, 76343855, 29201685 ####[facility] [address] [place] [address] MCV (RBC) [Entitic vol] 89.0 fL Normal 80.0-100.0 [facility] Comment on above: Performed By: #### 2 127219, 72703670, 4494636, 3512069, 9642180, 37057380, 43323633 ####[address] [address] Dukes Absolute 0.4 E9/L Normal 0.2-1.0 [facility] Comment on above: Performed By: #### 2 834716, 26877990, 3065497, 0301791, 8657531, 48307186, 60470717 ####[address] [address] Monocytes/100 WBC (Bld) 7.8 % Normal 4.0-14.0 [facility] Comment on above: Performed By: #### 2 073718, 51012054, 6060279, 3897859, 1347146, 01757293, 35183841 ####[address] [address] Neutro Absolute 3.2 E9/L Normal 2.0-7.5 [facility] Comment on above: Performed By: #### 2 032175, 48397310, 4106635, 8105424, 0249500, 57692068, 93487672 ####[facility] [address] [place] [address] Neutro Auto 56.7 % Normal 36.0-75.0 [facility] Comment on above: Performed By: #### 2 871625, 83480268, 0417312, 2159438, 8167133, 88337810, 09673812 ####[facility] [address] [place] [address] Platelet 215.0 E9/L Normal 150.0-500.0 [facility] Comment on above: Performed By: #### 2 226198, 50365223, 6270002, 4272362, 2428862, 06546915, 90475479 ####[facility] [address] [place] [address] Platelet mean volume (Bld) [Entitic vol] 7.1 fL Normal 6.4-10.8 [facility] Comment on above: Performed By: #### 2 366793, 19263707, 7644569, 5062886, 6596423, 08346353, 89017260 ####[facility] [address] [place] [address] RBC 4.3 E12/L Normal 4.3-5.9 [facility] Comment on above: Performed By: #### 2 306505, 95010678, 0880912, 9164809, 1837856, 57534068, 06458433 ####[facility] [address] [place] [address] WBC 5.6 E9/L Normal 4.0-11.0 [facility] Comment on above: Performed By: #### 2 644650, 07845946, 5731237, 3090107, 6881716, 72944538, 61534078 ####[facility] [address] [place] [address] CHEMISTRYOrdered By: SYSTEM SYSTEM on 07-30-2023 Albumin [...] 114 pg/mL High 5 - 80 pg/mL [facility] HemeManSS CHEMISTRYOrdered By: Yane BASSETT User on 07-30-2023 Glucose [Mass/Vol] 127 mg/dL High 55 - 99 mg/dL [facility] POC Subsection Comment on above: Result Comment: Michelle erickson RN/ POC Device SN [id number] Invalid Interpretation Code [facility] POC Subsection POC User ID [id number] 1 Invalid Interpretation Code [facility] POC Subsection POC Username DREAD CHURCH Invalid Interpretation Code [facility] POC Subsection Capillary Glucose POCon 07-08 Glucose [Mass/Vol] 127 mg/dL High 55-99 [facility] Comment on above: Result Comment: Michelle erickson RN/ Performed By: #### 2 [id number] ####[facility] [address] [place] [address] Consent for Treatmenton 07-08 Consent for Treatment [id number] #1.00TIFF Normal [facility] HEMATOLOGYOrdered By: SYSTEM SYSTEM on 07-30-2023 [...] Normal 80.0 - 100.0 fL Remisol Heme Dukes Absolute 0.4 E9/L Normal 0.2 - 1.0 [...] 07-30-2023 Albumin [Mass/Vol] 4.1 g/dL Normal 3.3-5.0 [facility] Comment on above: Performed By: #### 2 564494, 75409509, 5355380, 5069907, 7242943, 36931496, 23399797 ####[facility] [address] [place] [address] Albumin/Globulin [Mass ratio] 1.4 {ratio} Normal 1.1-2.2 [facility] Comment on above: Performed By: #### 2 114975, 48456784, 4609109, 0294756, 1919624, 42593775, 58184021 ####[facility] [address] [place] [address] Alk Phos 83 Int._Unit/L Normal 21-98 [facility] Comment on above: Performed By: #### 2 367864, 32502887, 5997623, 1771028, 0830835, 52796734, 74342032 ####[facility] [address] [place] [address] ALT 9 Int._Unit/L Normal 6-46 [facility] Comment on above: Performed By: #### 2 584390, 75889227, 8525802, 8454228, 6367416, 46789238, 60909052 ####[facility] [address] [place] [address] AST 15 Int._Unit/L Normal 5-43 [facility] Comment on above: Performed By: #### 2 294618, 07337446, 4394832, 4835286, 4707607, 81511901, 12732223 ####[facility] [address] [place] [address] Bili Direct 0.1 mg/dL Normal 0.0-0.4 [facility] Comment on above: Performed By: #### 2 422217, 74614499, 8713506, 5471197, 9454363, 43529464, 69152264 ####[facility] [address] [place] [address] Bili Indirect 0.3 mg/dL Normal 0.1-0.9 [facility] Comment on above: Performed By: #### 2 464253, 36218570, 1486279, 3196214, 9429206, 25510044, 79491394 ####[address] [address] Bili Total 0.4 mg/dL Normal 0.0-1.1 [facility] Comment on above: Performed By: #### 2 217019, 46676608, 8099594, 3292047, 9632660, 88029737, 30603751 ####[address] [address] Globulin (S) [Mass/Vol] 3.0 g/dL Normal 1.4-4.0 [facility] Comment on above: Performed By: #### 2 748923, 65157524, 4731551, 4236894, 1737330, 89926333, 18353390 ####[place] [place] [address] Protein [Mass/Vol] 7.1 g/dL Normal 6.0-7.8 [facility] Comment on above: Performed By: #### 2 443706, 01741526, 3186132, 1012913, 6594709, 42948708, 48690671 ####[facility] [address] [place] [address] Lactic Acidon 07-30-2023 Lactic Acid Lvl 2.4 mmol/L High 0.5-2.2 [facility] Comment on above: Performed By: #### 2 831530, 44323722, 2959911, 8596611, 9370503, 96025163, 91078083 ####[facility] [address] [place] [address] No Panel InformationOrdered By: ANGPROCESSSERVER MICROBIOLOGY on 07-30-2023 Blood Culture Charcoal No growth at 2 da ys. Final to follow at 7 days. [facility] Pre-Arrival Noteon Pre-Arrival Note Pre-Arrival Summary Name: BELEN Current Date: 07/30/2023 20:30:20 EST Gender: Female Date of : Age: 78 Pre-Arrival Type: EMS ETA: 07/30/2023 20:45:00 EST Primary Care Physician: Presenting Problem: weakness/trouble walking Pre-Arrival User: Dread Castañeda RN Referring Source: Location: Completion Date/Time: 07/30/2023 00:00:00 [facility] Emergency Department Pre-Hospital Report Form Vital Signs: HR 81 BP 109/68 RR 16 98% RA BG 159 98.7 F Pre-Hospital Report: A/Ox4 feeling generally ill, weakness and trouble walking. Hx fibromyalgia, DM, and kidney issues Treatment in Route: failed IV access Response to Treatment: Misc. Issues: Normal [facility] Troponin 0 Hr.on 07-30-2023 Troponin 3.50 pg/mL Low 10.10-27.10 [facility] Comment on above: Result Comment: The 95% CI (Confidence Interval) PPV (Positive Predictive Value) for myocardial infarction in females is 38 pg/mL, in males 51 pg/mL. The results should be used in conjunction with clinical conditions of myocardial infarction. (Access High Sensitivity Troponin I Instructions For Use, [place], January 2018) Performed By: #### 2 [id number], [id number], [id number], [id number], [id number], [id number], [id number] ####[facility] [address] [place] [address] UA With Cult Reflexon 2023 Bacteria LM Ql (Urine sed) TRACE Normal Trace [facility] Comment on above: Performed By: #### 1 [id number] ####[facility] [address] [place] [address] Bilirubin Ql (U) Negative Normal Negative [facility] Comment on above: Performed By: #### 1 [id number] ####[address] [address] Clarity (U) CLEAR Normal Clear [facility] Comment on above: Performed By: #### 1 [id number] ####[address] [address] Color (U) YELLOW Normal Yellow [facility] Comment on above: Performed By: #### 1 [id number] ####[address] [address] Epithelial cells.squamous LM.HPF (Urine sed) [#/Area] 0-2 Normal 0-2 [facility] Comment on above: Performed By: #### 1 [id number] ####[facility] [address] [place] [address] Glucose Test strip (U) [Mass/Vol] Negative Normal Negative [facility] Comment on above: Performed By: #### 1 [id number] ####[address] [address] Hemoglobin Ql (U) Negative Normal Negative [facility] Comment on above: Performed By: #### 1 [id number] ####[facility] [address] [place] [address] Ketones (U) [Mass/Vol] Negative Normal Negative [facility] Comment on above: Performed By: #### 1 [id number] ####[facility] [address] [place] [address] [place].plasma/[place].R BC (Bld) [Mass ratio] 0-3 Normal 0-3 [facility] Comment on above: Performed By: #### 1 [id number] ####[facility] [address] [place] [address] Nitrite Ql (U) Negative Normal Negative [facility] Comment on above: Performed By: #### 1 [id number] ####[address] [place] [address] pH (U) 7.0 [pH] Invalid Interpretation Code 5.0-9.0 [facility] Comment on above: Performed By: #### 1 [id number] ####[address] [address] Protein (U) [Mass/Vol] Negative Normal Negative [facility] Comment on above: Performed By: #### 1 [id number] ####[address] [address] Specific gravity (U) [Rel density] 1.015 Invalid Interpretation Code 1.005-1.030 [facility] Comment on above: Performed By: #### 1 [id number] ####[facility] [address] [place] [address] Type of Urine collection method Clean Catch Normal [facility] Comment on above: Performed By: #### 1 [id number] ####[facility] [address] [place] [address] Urobilinogen Qn (U) 0.2 {Macie'U}/dL Normal 0.0-1.0 [facility] Comment on above: Performed By: #### 1 [id number] ####[address] [place] [address] WBC Auto Ql (U) Negative Normal Negative [facility] Comment on above: Performed By: #### 1 [id number] ####[facility] [address] [place] [address] WBC LM.HPF (Urine sed) [#/Area] 0-5 Normal 0-5 [facility] Comment on above: Performed By: #### 1 [id number] ####[facility] [address] [place] [address] URINALYSISOrdered By: Damion Grigsby on 07-30-2023 Bacteria [...] PM) Normal Negative [facility] UA Auto SS [place].plasma/[place].R BC (Bld) [Mass ratio] 0-3 /HPF Normal [...] [facility] UA Auto SS Urobilinogen Qn (U) 0.7556941 {Macie'U}/dL Normal 0.0 - 1.0 EU/dL [facility] UA Auto SS WBC Auto Ql (U) Negative (07/30/23 10:50 PM) Normal Negative [facility] UA Auto SS WBC LM.HPF (Urine sed) [#/Area] 0-5 /HPF Normal 0-5/HPF [facility] UA Auto SS eGFRon 07-30-2023 eGFR 35 mL/min/1.73 m2 Low >=59 [facility] Comment on above: Order Comment: Order added by Discern Expert. Performed By: #### 2 [id number], [id number], [id number], [id number], [id number], [id number], [id number] ####[facility] [address] [place] [address] CHEMISTRYOrdered By: Lab DANYELLE User on 12-17-2022 Glucose [Mass/Vol] 119 mg/dL High 55 - 99 mg/dL [facility] POC Subsection Comment on above: Result Comment: Yvonne jl Meter POC Device SN [id number] Invalid Interpretation Code [facility] POC Subsection POC User ID [id number] Invalid Interpretation Code [facility] POC Subsection POC Username EJ SIMS Invalid Interpretation Code [facility] POC Subsection CHEMISTRYOrdered By: Yane BASSETT User on 12-16-2022 Glucose [Mass/Vol] 155 mg/dL High 55 - 99 mg/dL [facility] POC Subsection Comment on above: Result Comment: Yvonne jl Meter POC Device SN [id number] Invalid Interpretation Code [facility] POC Subsection POC User ID [id number] Invalid Interpretation Code [facility] POC Subsection POC Username EJ SIMS Invalid Interpretation Code [facility] POC Subsection Glucose [Mass/Vol] 127 mg/dL High 55 - 99 mg/dL [facility] POC Subsection Comment on above: Result Comment: Yvonne jl Meter POC Device SN [id number] Invalid Interpretation Code [facility] POC Subsection POC User ID [id number] Invalid Interpretation Code [facility] POC Subsection POC Username OUSMANE HWANG Invalid Interpretation Code [facility] POC Subsection CHEMISTRYOrdered By: Kerry Maravilla on 12-16-2022 Albumin Elph (U) [Mass fraction] mg/dL Invalid Interpretation Code [facility] Remisol Creatinine (U) [Mass/Vol] 44.5 mg/dL Invalid Interpretation Code [facility] Remisol U Prot/Creat Ratio [facility] Invalid Interpretation Code 0.00 - 200.00 [...] 4,000 cfu/ml Mixed skin contaminants [facility] Testing Ordered By: Sherrie DomainUseroberto on 12-16-2022 Parathyrin.intact [Mass/Vol] 42 pg/mL Invalid Interpretation Code 15-65pg/mL [facility] SendOutsSS Comment on above: Result Comment: Perf ormed at: [facility] [address] [id number] PhD Jake Edwards URINALYSISOrdered By: Ghassan Salcido [...] AM) Normal Negative [facility] UA Auto SS [place].plasma/[place].R BC (Bld) [Mass ratio] 0-3 /HPF Normal [...] [facility] UA Auto SS Urobilinogen Qn (U) 0.5946837 {Macie'U}/dL Normal 0.0 - 1.0 EU/dL [facility] [...] PM) Normal Negative [facility] UA Auto SS [place].plasma/[place].R BC (Bld) [Mass ratio] 0-3 /HPF Normal [...] [facility] UA Auto SS Urobilinogen Qn (U) 0.8935895 {Macie'U}/dL Normal 0.0 - 1.0 EU/dL [facility] UA Auto SS WBC Auto Ql (U) Negative (12/10/22 1:43 PM) Normal Negative [facility] UA Auto SS WBC LM.HPF (Urine sed) [#/Area] 0-5 /HPF Normal 0-5/HPF [facility] UA Auto SS AZTREONAM:SUSC:PT:ISOLATE:OR DQN:MICOrdered By: Jasmin Desai on 11-29-2022 Aztreonam YESENIA [Susc] >100,000 cfu/ml Escherichia coli [facility] Aztreonam YESENIA [Susc]Ordered By: Jasmin Desai on 11-29-2022 Escherichia coli Escherichia coli [facility] URINALYSISOrdered By: Yara Monroy on 11-29-2022 [...] PM) Normal Negative [facility] UA Auto SS [place].plasma/[place].R BC (Bld) [Mass ratio] 0-3 /HPF Normal 0-3/HPF [facility] UA Au to SS Nitrite Ql (U) Positive *ABN* (11/29/22 3:46 PM) Invalid Interpretation Code Negative [facility] UA Auto SS pH (U) 5.5 *NA* (11/29/22 3:46 PM) Invalid Interpretation Code 5.0 - 9.0 [facility] UA Auto SS Protein (U) [Mass/Vol] Negative (11/29/22 3:46 PM) Normal Negative [facility] UA Auto SS Specific gravity (U) [Rel density] 1.010 *NA* (11/29/22 3:46 PM) Invalid Interpretation Code 1.005 - 1.030 [facility] UA Auto SS UA Spec Desc Clean Catch (11/29/22 3:46 PM) Normal [facility] UA Auto SS Urobilinogen Qn (U) 0.1115777 {Macie'U}/dL Normal 0.0 - 1.0 EU/dL [facility] UA Auto SS WBC Auto Ql (U) 1+ *ABN* (11/29/22 3:46 PM) Invalid Interpretation Code Negative [facility] UA Auto SS WBC LM.HPF (Urine sed) [#/Area] /[HPF] Invalid Interpretation Code 0-5/HPF [facility] UA Auto SS CULTURE URINEon 05-30-2022 CULTURE [...] F Trimethoprim/Sulfame thoxazole <=20 S F Normal [facility] Comment on above: Performed By: #### C MP, HSTROPN #### [facility] [address] [place] [address] Dr. Shail Turk CBC AUTO DIFFon 05-27-2022 BASO # 0.0 103/ul Normal 0.0-0.1 [facility] Comment on above: Performed By: #### U RTPCR #### [facility] [address] [place] [address] Dr. Sahil Turk Basophils/100 WBC (Bld) 0.3 % Normal 0.2-2.0 [facility] Comment on above: Performed By: #### U RTPCR #### [facility] [address] [place] [address] Dr. Sahil Turk EO # 0.1 103/ul Normal 0.0-0.7 [facility] Comment on above: Performed By: #### U RTPCR #### [facility] [address] [place] [address] Dr. Sahil Turk Eosinophils/100 WBC (Bld) 0.5 % Critically low 0.9-7.0 [facility] Comment on above: Performed By: #### U RTPCR #### [facility] [address] [place] [address] Dr. Sahil Turk Erythrocyte distribution width (RBC) [Ratio] 14.1 % Normal 11.0-15.0 [facility] Comment on above: Performed By: #### U RTPCR #### [facility] [address] [place] [address] Dr. Sahil Turk Hematocrit (Bld) [Volume fraction] 38.6 % Normal 36.0-48.0 [facility] Comment on above: Performed By: #### U RTPCR #### [facility] [address] [place] [address] Dr. Sahil Turk Hemoglobin (Bld) [Mass/Vol] 12.4 g/dL Normal 12.0-16.0 [facility] Comment on above: Performed By: #### U RTPCR #### [facility] [address] [place] [address] Dr. Sahil Turk IG # 0.05 10e3/ul Critically high 0.00-0.03 [facility] Comment on above: Performed By: #### U RTPCR #### [facility] [address] [place] [address] Dr. Sahil Turk IG % 0.5 % Normal 0.0-0.5 [facility] Comment on above: Performed By: #### U RTPCR #### [facility] [address] [place] [address] Dr. Sahil Turk LYMPH # 2.1 103/ul Normal 1.2-3.8 [facility] Comment on above: Performed By: #### U RTPCR #### [facility] [address] [place] [address] Dr. Sahil Turk Lymphocytes/100 WBC (Bld) 19.2 % Critically low 20.5-60.0 [facility] Comment on above: Performed By: #### U RTPCR #### [facility] [address] [place] [address] Dr. Sahil Turk MANUAL DIFF REQ NO Normal [facility] Comment on above: Performed By: #### U RTPCR #### [facility] [address] [place] [address] Dr. Sahil Turk MCH (RBC) [Entitic mass] 29.5 pg Normal 26.7-34.0 [facility] Comment on above: Performed By: #### U RTPCR #### [facility] [address] [place] [address] Dr. Sahil Turk MCHC (RBC) [Mass/Vol] 32.1 g/dL Normal 29.9-35.2 [facility] Comment on above: Performed By: #### U RTPCR #### [facility] [address] [place] [address] Dr. Sahil Turk MCV (RBC) [Entitic vol] 91.9 fL Normal 81.0-99.0 [facility] Comment on above: Performed By: #### U RTPCR #### [facility] [address] [place] [address] Dr. Sahil Turk MONO # 0.5 103/ul Normal 0.3-0.8 [facility] Comment on above: Performed By: #### U RTPCR #### [facility] [address] [place] [address] Dr. Sahil Turk Monocytes/100 WBC (Bld) 4.6 % Normal 1.7-12.0 [facility] Comment on above: Performed By: #### U RTPCR #### [facility] [address] [place] [address] Dr. Sahil Turk NEUT # 8.3 103/ul Critically high 1.4-6.5 [facility] Comment on above: Performed By: #### U RTPCR #### [facility] [address] [place] [address] Dr. Sahil Turk Neutrophils/100 WBC (Bld) 74.9 % Normal 43.0-75.0 [facility] Comment on above: Performed By: #### U RTPCR #### [facility] [address] [place] [address] Dr. Sahil Turk Platelet mean volume (Bld) [Entitic vol] 9.3 fL Critically low 9.5-13.5 [facility] Comment on above: Performed By: #### U RTPCR #### [facility] [address] [place] [address] Dr. Sahil Turk PLT 222 103/ul Normal 150-450 [facility] Comment on above: Performed By: #### U RTPCR #### [facility] [address] [place] [address] Dr. Sahil Turk RBC 4.20 106/ul Normal 4.20-5.40 [facility] Comment on above: Performed By: #### U RTPCR #### [facility] [address] [place] [address] Dr. Sahil Turk WBC 11.0 103/ul Normal 4.0-11.0 [facility] Comment on above: Performed By: #### U RTPCR #### [facility] [address] [place] [address] Dr. Sahil Turk ER URINE PROFILEon 2 Bilirubin Ql (U) Negative Normal NEGATIVE [facility] Comment on above: Performed By: #### C MP, HSTROPN #### [facility] [address] [place] [address] Dr. Sahil Turk Clarity (U) CLEAR Normal CLEAR [facility] Comment on above: Performed By: #### C MP, HSTROPN #### [facility] [address] [place] [address] Dr. Sahil Turk Color (U) LT. YELLOW Normal YELLOW [facility] Comment on above: Performed By: #### C MP, HSTROPN #### [facility] [address] [address] [address] Sahil HAINES A micrscopic examination will be performed if indicated. Normal [facility] Comment on above: Performed By: #### C MP, HSTROPN #### [facility] [address] [place] [address] Dr. Sahil Turk Glucose Ql (U) Negative Normal NEGATIVE [facility] Comment on above: Performed By: #### C MP, HSTROPN #### [facility] [address] [place] [address] Dr. Sahil Turk Hemoglobin Ql (U) Negative Normal NEGATIVE [facility] Comment on above: Performed By: #### C MP, HSTROPN #### [facility] [address] [place] [address] Dr. Sahil Turk Ketones Ql (U) Negative Normal NEGATIVE [facility] Comment on above: Performed By: #### C MP, HSTROPN #### [facility] [address] [place] [address] Dr. Sahil Turk LEUKOCYTES SMALL Abnormal NEGATIVE [facility] Comment on above: Performed By: #### C MP, HSTROPN #### [facility] [address] [place] [address] Dr. Sahil Turk Nitrite Ql (U) Positive Abnormal NEGATIVE [facility] Comment on above: Performed By: #### C MP, HSTROPN #### [facility] [address] [place] [address] Dr. Sahil Turk pH (U) 7.0 [pH] Normal 5-9 [facility] Comment on above: Performed By: #### C MP, HSTROPN #### [facility] [address] [place] [address] Dr. Sahil Turk SPEC GRAVITY 1.010 Normal 1.005-<=1.0 25 [facility] Comment on above: Performed By: #### C MP, HSTROPN #### [facility] [address] [place] [address] Dr. Saihl Turk UA PROTEIN Negative Normal NEGATIVE/ TRACE [facility] Comment on above: Performed By: #### C JAYY, HSTROPN #### [facility] [address] [place] [address] Dr. Sahil Turk UR MICRO IND INDICATED Normal [facility] Comment on above: Performed By: #### C JAYY, HSTROPN #### [facility] [address] [place] [address] Dr. Sahil Turk Urobilinogen Qn (U) 0.2 {Macie'U}/dL Normal 0.2 - 1. 0 [facility] Comment on above: Performed By: #### C JAYY, HSTROPN #### [facility] [address] [place] [address] Dr. Sahil Turk PROF 14(COMP METB)on 022 Albumin [Mass/Vol] 3.5 g/dL Normal 3.4-5.0 [facility] Comment on above: Performed By: #### C JAYY HSTROPN #### [facility] [address] [place] [address] Dr. Sahil Turk Albumin/Globulin [Mass ratio] 0.9 {ratio} Normal [facility] Comment on above: Performed By: #### C JAYY, HSTROPN #### [facility] [address] [place] [address] Dr. Sahil Turk ALP [Catalytic activity/Vol] 81 U/L Normal 46-116 [facility] Comment on above: Performed By: #### C JAYY, HSTROPN #### [facility] [address] [place] [address] Dr. Sahil Turk ALT [Catalytic activity/Vol] 15 U/L Normal 14-59 [facility] Comment on above: Performed By: #### C JAYY, HSTROPN #### [facility] [address] [place] [address] Dr. Sahil Turk Anion gap [Moles/Vol] 9.7 mmol/L Normal [facility] Comment on above: Performed By: #### C JAYY, HSTROPN #### [facility] [address] [place] [address] Dr. Sahil Turk AST [Catalytic activity/Vol] 20 U/L Normal 15-37 [facility] Comment on above: Performed By: #### C JAYY, HSTROPN #### [facility] [address] [place] [address] Dr. Sahil Turk Bilirubin [Mass/Vol] 0.5 mg/dL Normal 0.2-1.0 [facility] Comment on above: Performed By: #### C JAYY, HSTROPN #### [facility] [address] [address] [address] Sahil Turk Calcium [Mass/Vol] 9.5 mg/dL Normal 8.5-10.1 [facility] Comment on above: Performed By: #### C JAYY, HSTROPN #### [facility] [address] [place] [address] Dr. Sahil Turk Chloride [Moles/Vol] 100 mmol/L Normal 98-107 [facility] Comment on above: Performed By: #### C JAYY, HSTROPN #### [facility] [address] [place] [address] Dr. Sahil Turk CO2 [Moles/Vol] 36.1 mmol/L Critically high 21.0-32.0 [facility] Comment on above: Performed By: #### C JYAY, HSTROPN #### [facility] [address] [place] [address] Dr. Sahil Turk Creatinine [Mass/Vol] 1.67 mg/dL Critically high 0.55-1.02 [facility] Comment on above: Performed By: #### C MP, HSTROPN #### [facility] [address] [place] [address] Dr. Sahil Turk EGFR-AF WELSH 36 mL/min/1.73m2 Critically low >=60 [facility] Comment on above: Performed By: #### C MP, HSTROPN #### [facility] [address] [place] [address] Dr. Sahil Turk EGFR-NON AF WELSH 30 mL/min/1.73m2 Critically low >=60 [facility] Comment on above: Performed By: #### C MP, HSTROPN #### [facility] [address] [place] [address] Dr. Sahil Turk Globulin (S) [Mass/Vol] 3.8 g/dL Normal [facility] Comment on above: Performed By: #### C MP, HSTROPN #### [facility] [address] [place] [address] Dr. Sahil Turk Glucose [Mass/Vol] 181 mg/dL Critically high 74-106 [facility] Comment on above: Performed By: #### C MP, HSTROPN #### [facility] [address] [place] [address] Dr. Sahil Turk Potassium [Moles/Vol] 3.8 mmol/L Normal 3.5-5.1 [facility] Comment on above: Performed By: #### C MP, HSTROPN #### [facility] [address] [place] [address] Dr. Sahil Turk Protein [Mass/Vol] 7.3 g/dL Normal 6.4-8.2 [facility] Comment on above: Performed By: #### C MP, HSTROPN #### [facility] [address] [place] [address] Dr. Sahil Turk Sodium [Moles/Vol] 142 mmol/L Normal 136-145 [facility] Comment on above: Performed By: #### C MP, HSTROPN #### [facility] [address] [place] [address] Dr. Sahil Turk Urea nitrogen [Mass/Vol] 18.0 mg/dL Normal 7.0-18.0 [facility] Comment on above: Performed By: #### C MP, HSTROPN #### [facility] [address] [place] [address] Dr. Sahil Turk Urea nitrogen/Creatinine [Mass ratio] 10.8 mg/mg Normal [facility] Comment on above: Performed By: #### C MP, HSTROPN #### [facility] [address] [place] [address] Dr. Sahil Turk PROTIMEon 05-27-2022 INR Coag (PPP) [Relative time] 1.09 {INR} Normal [facility] Comment on above: Performed By: #### U RTPCR #### [facility] [address] [place] [address] Dr. Sahil Turk INR GUIDELINES SEE BELOW Normal [facility] Comment on above: Result Comment: LUIS ANGEL RED INR: 2.0 - 3.0 CONDITIONS NOT LISTED BELOW 2.5 - 3.5 FOR PROSTHETIC HEART VALVE REPLACEMENT 2.5 - 3.5 RECURRENT THROMBOSIS Performed By: #### U RTPCR #### [facility] [address] [place] [address] Dr. Sahil Turk PT Coag (PPP) [Time] 11.7 s Critically high 9.0-11.6 [facility] Comment on above: Performed By: #### U RTPCR #### [facility] [address] [place] [address] Dr. Sahil Turk PTTon 05-27-2022 aPTT Coag (Bld) [Time] 30.6 s Normal 22.3-36.2 [facility] Comment on above: Performed By: #### U RTPCR #### [facility] [address] [place] [address] Dr. Sahil Turk TROPONIN, HIGH SENSITIVITYon 05-27-2022 HSTROP 7.1 pg/mL Normal 4.0-51.3 [facility] Comment on above: Result Comment: CUT- OFF POINTS HAVE BEEN ESTABLISHED BASED ON THE FOURTH UNIVERSAL DEFINITIONS OF MYOCARDIAL INFARCTION. THE UPPER REFERENCE LIMIT (URL) OF TROPONIN, DEFINED THE 99TH PERCENTILE OF cTnI DISTRIBUTION IN A REFERENCE POPULATION, HAS BEEN CONFIRMED THE DECISION THRESHOLD FOR MD DIAGNOSIS. Performed By: #### C MP, HSTROPN #### [facility] [address] [place] [address] Dr. Sahil Turk URINE MICROSCOPIC ONLYon BACTERIA LARGE Abnormal NONE SEEN [facility] Comment on above: Performed By: #### C MP, HSTROPN #### [facility] [address] [place] [address] Dr. Sahil Turk Bacteria identified Cx Nom (U) INDICATED Normal [facility] Comment on above: Performed By: #### C MP, HSTROPN #### [facility] [address] [place] [address] Dr. Sahil Turk CAST NONE SEEN Normal NONE SEEN [facility] Comment on above: Performed By: #### C MP, HSTROPN #### [facility] [address] [address] [address] Sahil Turk Crystals LM Nom (Urine sed) NONE SEEN Normal NONE SEEN [facility] Comment on above: Performed By: #### C MP, HSTROPN #### [facility] [address] [place] [address] Dr. Sahil Turk Epithelial cells LM Ql (Urine sed) RARE Normal NONE SEEN /RARE [facility] Comment on above: Performed By: #### C MP, HSTROPN #### [facility] [address] [place] [address] Dr. Sahil Turk MUCOUS NONE SEEN Normal NONE SEEN [facility] Comment on above: Performed By: #### C MP, HSTROPN #### [facility] [address] [place] [address] Dr. Sahil Turk RBC 0-2 Normal 0-2 [facility] Comment on above: Performed By: #### C MP, HSTROPN #### [facility] [address] [place] [address] Dr. Sahil Turk WBC 0-2 Abnormal NONE SEEN [facility] Comment on above: Performed By: #### C MP, HSTROPN #### [facility] [address] [place] [address] Dr. Sahil Turk XR CHEST 1 Von [...] EDGARD GOMEZ Date: 2022-05-27 21:31 Normal [facility] CULTURE URINEon 03-13-2022 CULTURE URINE [...] F Trimethoprim/Sulfame thoxazole <=20 S F Normal [facility] Comment on above: Performed By: #### C JAYY HSTROPN #### [facility] [address] [place] [address] Dr. Sahil Turk BNPon 03-11-2022 Natriuretic peptide B (Bld) [Mass/Vol] 449.0 pg/mL Normal <=1,800.0 [facility] Comment on above: Performed By: #### U RTPCR #### [facility] [address] [place] [address] Dr. Sahil Turk CBC AUTO DIFFon 03-11-2022 BASO # 0.0 103/ul Normal 0.0-0.1 [facility] Comment on above: Performed By: #### C JAYY HSTROPN #### [facility] [address] [place] [address] Dr. Sahil Turk Basophils/100 WBC (Bld) 0.6 % Normal 0.2-2.0 [facility] Comment on above: Performed By: #### C JAYY, HSTROPN #### [facility] [address] [place] [address] Dr. Sahil Turk EO # 0.1 103/ul Normal 0.0-0.7 [facility] Comment on above: Performed By: #### C MP, HSTROPN #### [facility] [address] [place] [address] Dr. Sahil Turk Eosinophils/100 WBC (Bld) 2.8 % Normal 0.9-7.0 [facility] Comment on above: Performed By: #### C JAYY, HSTROPN #### [facility] [address] [place] [address] Dr. Sahil Turk Erythrocyte distribution width (RBC) [Ratio] 13.7 % Normal 11.0-15.0 [facility] Comment on above: Performed By: #### C JAYY, HSTROPN #### [facility] [address] [place] [address] Dr. Sahil Turk Hematocrit (Bld) [Volume fraction] 39.2 % Normal 36.0-48.0 [facility] Comment on above: Performed By: #### C JAYY, HSTROPN #### [facility] [address] [place] [address] Dr. Sahil Turk Hemoglobin (Bld) [Mass/Vol] 12.7 g/dL Normal 12.0-16.0 [facility] Comment on above: Performed By: #### C JAYY, HSTROPN #### [facility] [address] [place] [address] Dr. Sahil Turk IG # 0.01 10e3/ul Normal 0.00-0.03 [facility] Comment on above: Performed By: #### C MP, HSTROPN #### [facility] [address] [place] [address] Dr. Sahil Turk IG % 0.2 % Normal 0.0-0.5 [facility] Comment on above: Performed By: #### C MP, HSTROPN #### [facility] [address] [place] [address] Dr. Sahil Turk LYMPH # 1.9 103/ul Normal 1.2-3.8 [facility] Comment on above: Performed By: #### C MP, HSTROPN #### [facility] [address] [place] [address] Dr. Sahil Turk Lymphocytes/100 WBC (Bld) 37.8 % Normal 20.5-60.0 [facility] Comment on above: Performed By: #### C MP, HSTROPN #### [facility] [address] [place] [address] Dr. Sahil Turk MANUAL DIFF REQ NO Normal [facility] Comment on above: Performed By: #### C MP, HSTROPN #### [facility] [address] [place] [address] Dr. Sahil Turk MCH (RBC) [Entitic mass] 30.5 pg Normal 26.7-34.0 [facility] Comment on above: Performed By: #### C MP, HSTROPN #### [facility] [address] [place] [address] Dr. Sahil Turk MCHC (RBC) [Mass/Vol] 32.4 g/dL Normal 29.9-35.2 [facility] Comment on above: Performed By: #### C MP, HSTROPN #### [facility] [address] [place] [address] Dr. Sahil Turk MCV (RBC) [Entitic vol] 94.0 fL Normal 81.0-99.0 [facility] Comment on above: Performed By: #### C MP, HSTROPN #### [facility] [address] [place] [address] Dr. Sahil Turk MONO # 0.4 103/ul Normal 0.3-0.8 [facility] Comment on above: Performed By: #### C MP, HSTROPN #### [facility] [address] [place] [address] Dr. Sahil Turk Monocytes/100 WBC (Bld) 7.0 % Normal 1.7-12.0 [facility] Comment on above: Performed By: #### C MP, HSTROPN #### [facility] [address] [place] [address] Dr. Sahil Turk NEUT # 2.6 103/ul Normal 1.4-6.5 [facility] Comment on above: Performed By: #### C JAYY, HSTROPN #### [facility] [address] [place] [address] Dr. Sahil Turk Neutrophils/100 WBC (Bld) 51.6 % Normal 43.0-75.0 [facility] Comment on above: Performed By: #### C JAYY, HSTROPN #### [facility] [address] [place] [address] Dr. Sahil Turk Platelet mean volume (Bld) [Entitic vol] 9.9 fL Normal 9.5-13.5 [facility] Comment on above: Performed By: #### C JAYY, HSTROPN #### [facility] [address] [place] [address] Dr. Sahil Turk PLT 220 103/ul Normal 150-450 [facility] Comment on above: Performed By: #### C JAYY, HSTROPN #### [facility] [address] [place] [address] Dr. Sahil Turk RBC 4.17 106/ul Critically low 4.20-5.40 [facility] Comment on above: Performed By: #### C JAYY, HSTROPN #### [facility] [address] [place] [address] Dr. Sahil Turk WBC 5.0 103/ul Normal 4.0-11.0 [facility] Comment on above: Performed By: #### C MP, HSTROPN #### [facility] [address] [place] [address] Dr. Sahil Turk ER URINE PROFILEon 2 Bilirubin Ql (U) Negative Normal NEGATIVE [facility] Comment on above: Performed By: #### M G, RENAL, URIC #### [facility] [address] [place] [address] Dr. Sahil Turk Clarity (U) CLEAR Normal CLEAR [facility] Comment on above: Performed By: #### M G, RENAL, URIC #### [facility] [address] [place] [address] Dr. Sahil Turk Color (U) LT. YELLOW Normal YELLOW [facility] Comment on above: Performed By: #### M G, RENAL, URIC #### [facility] [address] [place] [address] Dr. Sahil HAINES A micrscopic examination will be performed if indicated. Normal [facility] Comment on above: Performed By: #### M G, RENAL, URIC #### [facility] [address] [place] [address] Dr. Sahil Turk Glucose Ql (U) Negative Normal NEGATIVE [facility] Comment on above: Performed By: #### M G, RENAL, URIC #### [facility] [address] [place] [address] Dr. Sahil Turk Hemoglobin Ql (U) Negative Normal NEGATIVE [facility] Comment on above: Performed By: #### M G, RENAL, URIC #### [facility] [address] [place] [address] Dr. Sahil Turk Ketones Ql (U) Negative Normal NEGATIVE [facility] Comment on above: Performed By: #### M G, RENAL, URIC #### [facility] [address] [place] [address] Dr. Sahil Turk LEUKOCYTES SMALL Abnormal NEGATIVE [facility] Comment on above: Performed By: #### M G, RENAL, URIC #### [facility] [address] [place] [address] Dr. Sahil Turk Nitrite Ql (U) Positive Abnormal NEGATIVE [facility] Comment on above: Performed By: #### M G, RENAL, URIC #### [facility] [address] [place] [address] Dr. Sahil Turk pH (U) 6.5 [pH] Normal 5-9 [facility] Comment on above: Performed By: #### M G, RENAL, URIC #### [facility] [address] [place] [address] Dr. Sahil Turk SPEC GRAVITY 1.010 Normal 1.005-<=1.0 25 [facility] Comment on above: Performed By: #### M G, RENAL, URIC #### [facility] [address] [place] [address] Dr. Sahil Turk UA PROTEIN Negative Normal NEGATIVE/ TRACE [facility] Comment on above: Performed By: #### M G, RENAL, URIC #### [facility] [address] [place] [address] Dr. Sahil Turk UR MICRO IND INDICATED Normal [facility] Comment on above: Performed By: #### M G, RENAL, URIC #### [facility] [address] [place] [address] Dr. Sahil Turk Urobilinogen Qn (U) 0.2 {Macie'U}/dL Normal 0.2 - 1. 0 [facility] Comment on above: Performed By: #### M G, RENAL, URIC #### [facility] [address] [place] [address] Dr. Sahil Turk LIPASEon 03-11-2022 Lipase [Catalytic activity/Vol] 40.0 U/L Critically low 73.0-393.0 [facility] Comment on above: Performed By: #### U RTPCR #### [facility] [address] [place] [address] Dr. Sahil Turk PROF 14(COMP METB)on 022 Albumin [Mass/Vol] 3.5 g/dL Normal 3.4-5.0 [facility] Comment on above: Performed By: #### M G, RENAL, URIC #### [facility] [address] [place] [address] Dr. Sahil Turk Albumin/Globulin [Mass ratio] 1.1 {ratio} Normal [facility] Comment on above: Performed By: #### M G, RENAL, URIC #### [facility] [address] [place] [address] Dr. Sahil Turk ALP [Catalytic activity/Vol] 69 U/L Normal 46-116 [facility] Comment on above: Performed By: #### M G, RENAL, URIC #### [facility] [address] [place] [address] Dr. Sahil Turk ALT [Catalytic activity/Vol] 18 U/L Normal 14-59 [facility] Comment on above: Performed By: #### M G, RENAL, URIC #### [facility] [address] [address] [address] Sahli Turk Anion gap [Moles/Vol] 10.6 mmol/L Normal Th [facility] Comment on above: Performed By: #### M G, RENAL, URIC #### [facility] [address] [address] [address] Sahil Turk AST [Catalytic activity/Vol] 21 U/L Normal 15-37 [facility] Comment on above: Performed By: #### M G, RENAL, URIC #### [facility] [address] [place] [address] Dr. Sahil Turk Bilirubin [Mass/Vol] 0.4 mg/dL Normal 0.2-1.0 [facility] Comment on above: Performed By: #### M G, RENAL, URIC #### [facility] [address] [place] [address] Dr. Sahil Turk Calcium [Mass/Vol] 9.6 mg/dL Normal 8.5-10.1 [facility] Comment on above: Performed By: #### M G, RENAL, URIC #### [facility] [address] [place] [address] Dr. Sahil Turk Chloride [Moles/Vol] 102 mmol/L Normal 98-107 [facility] Comment on above: Performed By: #### M G, RENAL, URIC #### [facility] [address] [place] [address] Dr. Sahil Turk CO2 [Moles/Vol] 33.1 mmol/L Critically high 21.0-32.0 [facility] Comment on above: Performed By: #### M G, RENAL, URIC #### [facility] [address] [place] [address] Dr. Sahil Turk Creatinine [Mass/Vol] 1.40 mg/dL Critically high 0.55-1.02 [facility] Comment on above: Performed By: #### M G, RENAL, URIC #### [facility] [address] [place] [address] Dr. Sahil Turk EGFR-AF WELSH 44 mL/min/1.73m2 Critically low >=60 [facility] Comment on above: Performed By: #### M G, RENAL, URIC #### [facility] [address] [address] [address] Sahil Turk EGFR-NON AF WELSH 36 mL/min/1.73m2 Critically low >=60 [facility] Comment on above: Performed By: #### M G, RENAL, URIC #### [facility] [address] [address] [address] Sahil Turk Globulin (S) [Mass/Vol] 3.3 g/dL Normal [facility] Comment on above: Performed By: #### M G, RENAL, URIC #### [facility] [address] [place] [address] Dr. Sahil Turk Glucose [Mass/Vol] 107 mg/dL Critically high 74-106 [facility] Comment on above: Performed By: #### M G, RENAL, URIC #### [facility] [address] [place] [address] Dr. Sahil Turk Potassium [Moles/Vol] 3.7 mmol/L Normal 3.5-5.1 [facility] Comment on above: Performed By: #### M G, RENAL, URIC #### [facility] [address] [place] [address] Dr. Sahil Turk Protein [Mass/Vol] 6.8 g/dL Normal 6.4-8.2 [facility] Comment on above: Performed By: #### M G, RENAL, URIC #### [facility] [address] [place] [address] Dr. Sahil Turk Sodium [Moles/Vol] 142 mmol/L Normal 136-145 [facility] Comment on above: Performed By: #### M G, RENAL, URIC #### [facility] [address] [place] [address] Dr. Sahil Turk Urea nitrogen [Mass/Vol] 16.0 mg/dL Normal 7.0-18.0 [facility] Comment on above: Performed By: #### M G, RENAL, URIC #### [facility] [address] [address] [address] Sahil Turk Urea nitrogen/Creatinine [Mass ratio] 11.4 mg/mg Normal [facility] Comment on above: Performed By: #### M G, RENAL, URIC #### [facility] [address] [address] [address] Sahil Turk PROTIMEon 03-11-2022 INR Coag (PPP) [Relative time] 1.03 {INR} Normal [facility] Comment on above: Performed By: #### C MP, HSTROPN #### [facility] [address] [place] [address] Dr. Sahil Turk INR GUIDELINES SEE BELOW Normal [facility] Comment on above: Result Comment: LUIS ANGEL RED INR: 2.0 - 3.0 CONDITIONS NOT LISTED BELOW 2.5 - 3.5 FOR PROSTHETIC HEART VALVE REPLACEMENT 2.5 - 3.5 RECURRENT THROMBOSIS Performed By: #### C MP, HSTROPN #### [facility] [address] [place] [address] Dr. Sahil Turk PT Coag (PPP) [Time] 11.1 s Normal 9.0-11.6 [facility] Comment on above: Performed By: #### C MP, HSTROPN #### [facility] [address] [place] [address] Dr. Sahil Turk PTTon 03-11-2022 aPTT Coag (Bld) [Time] 25.4 s Normal 22.3-36.2 [facility] Comment on above: Performed By: #### C MP, HSTROPN #### [facility] [address] [place] [address] Dr. Sahil Turk TROPONIN, HIGH SENSITIVITYon 03-11-2022 HSTROP 7.5 pg/mL Normal 4.0-51.3 [facility] Comment on above: Result Comment: CUT- OFF POINTS HAVE BEEN ESTABLISHED BASED ON THE FOURTH UNIVERSAL DEFINITIONS OF MYOCARDIAL INFARCTION. THE UPPER REFERENCE LIMIT (URL) OF TROPONIN, DEFINED THE 99TH PERCENTILE OF cTnI DISTRIBUTION IN A REFERENCE POPULATION, HAS BEEN CONFIRMED THE DECISION THRESHOLD FOR MD DIAGNOSIS. Performed By: #### M G, RENAL, URIC #### [facility] [address] [place] [address] Dr. Sahil Turk HSTROP 7.9 pg/mL Normal 4.0-51.3 [facility] Comment on above: Result Comment: CUT- OFF POINTS HAVE BEEN ESTABLISHED BASED ON THE FOURTH UNIVERSAL DEFINITIONS OF MYOCARDIAL INFARCTION. THE UPPER REFERENCE LIMIT (URL) OF TROPONIN, DEFINED THE 99TH PERCENTILE OF cTnI DISTRIBUTION IN A REFERENCE POPULATION, HAS BEEN CONFIRMED THE DECISION THRESHOLD FOR MD DIAGNOSIS. Performed By: #### U RTPCR #### [facility] [address] [place] [address] Dr. Sahil Turk URINE MICROSCOPIC ONLYon BACTERIA SMALL Abnormal NONE SEEN [facility] Comment on above: Performed By: #### M G, RENAL, URIC #### [facility] [address] [place] [address] Dr. Sahil Turk Bacteria identified Cx Nom (U) INDICATED Normal [facility] Comment on above: Performed By: #### M G, RENAL, URIC #### [facility] [address] [place] [address] Dr. Sahil Turk CAST NONE SEEN Normal NONE SEEN [facility] Comment on above: Performed By: #### M G, RENAL, URIC #### [facility] [address] [place] [address] Dr. Sahil Turk Crystals LM Nom (Urine sed) NONE SEEN Normal NONE SEEN [facility] Comment on above: Performed By: #### M G, RENAL, URIC #### [facility] [address] [place] [address] Dr. Sahil Turk Epithelial cells LM Ql (Urine sed) RARE Normal NONE SEEN /RARE [facility] Comment on above: Performed By: #### M G, RENAL, URIC #### [facility] [address] [place] [address] Dr. Sahil Turk MUCOUS NONE SEEN Normal NONE SEEN [facility] Comment on above: Performed By: #### M G, RENAL, URIC #### [facility] [address] [place] [address] Dr. Sahil Turk RBC 0-2 Normal 0-2 [facility] Comment on above: Performed By: #### M G, RENAL, URIC #### [facility] [address] [place], [place] [address] Dr. Sahil Turk WBC 5-10 Abnormal NONE SEEN [facility] Comment on above: Performed By: #### M G, RENAL, URIC #### [facility] [address] [place], [place] [address] Dr. Sahil Turk XR CHEST 1 Von [...] HAWK MUNGUIA Date: 2022-03-11 14:27 Normal [facility] CT CSPINE WO CONon 2 [...] by: LEISA SALGUEROH Date: 2022-02-22 08:12 Normal [facility] CT HEAD WO CONon 02-21-2022 CT HEAD [...] by: ANDRADE LEWIS Date: 2022-02-21 16:40 Normal [facility] CT LSPINE WO CONon 2 CT LSPINE WO CON EXAMINATION: CT LSPINE WO CON, 02/21/2022, 3:54 PM EDT HISTORY: Pain COMPARISON: None. TECHNIQUE: CT of the lumbar spine was performed without IV contrast. CT dose reduction technique was used, including Automated Exposure Control. FINDINGS: PLUMBER PIPE FITTING RADIOGRAPH: Unremarkable. MINERALIZATION: Probable mild osteopenia. VERTEBRAL [...] by: LINDA MCDANIEL Date: 2022-02-21 17:26 Normal [facility] XR HIP LT 2 3V W PELVISon [...] by: ANDRADE LEWIS Date: 2022-02-21 16:51 Normal [facility] Progress Noteson 02-18-2022 [employer] Authentication Interface Message Text EMERGENCY TRIAGE, TREAT AND TRANSPORT (ET3) DOCUMENTATION OF TELEHEALTH VISIT Date / Time: 01/08/2022 / 0345am Name: Suhas Patterson : 1945 SSN: [id number] EMS Agency: [facility] [x] Verbal consent obtained [] [...] Completed by: Madai Webb MD Normal [employer] ECHOCARDIO M/2D COMPLETEon 0 01-06-2022 ECHOCARDIO M/2D COMPLETE Patient: NADIA PATTERSON Exam Date: 01/06/2022 : 1945 Gender:F Ordering : MEI DAS Admission #: [id number] Family : DR HARPAL HAYES M.D. Order #: [id number] CLICK HERE TO VIEW EXAM ECHOCARDIOGRAM REPORT [...] (Antegrade Flow): 1.18 m/s AoV Area (Peak Joyc): 2.29 cm2, 2.29 cm2 Peak Velocity(Antegrade Flow): [...] Herrera M.D. on 01/06/2022 at 17:18 Normal [facility] PTH INTACTon 12-11-2021 PTH, Intact 31 pg/mL Normal 15-65 [facility] Comment on above: Performed By: #### C MP, HSTROPN #### [facility] [address] [place] [address] Dr. Sahil Turk FERRITINon 12-10-2021 Ferritin [Mass/Vol] 53.0 ng/mL Normal 8.0-252.0 [facility] Comment on above: Performed By: #### C MP, HSTROPN #### [facility] [address] [place] [address] Dr. Sahil Turk HEMOGRAM AND PLATELon 2021 Hematocrit (Bld) [Volume fraction] 38.4 % Normal 36.0-48.0 [facility] Comment on above: Performed By: #### M G, RENAL, URIC #### [facility] [address] [place] [address] Dr. Sahil Turk Hemoglobin (Bld) [Mass/Vol] 12.5 g/dL Normal 12.0-16.0 [facility] Comment on above: Performed By: #### M G, RENAL, URIC #### [facility] [address] [place] [address] Dr. Sahil Turk MCH (RBC) [Entitic mass] 29.4 pg Normal 26.7-34.0 [facility] Comment on above: Performed By: #### M G, RENAL, URIC #### [facility] [address] [place] [address] Dr. Sahil Turk MCHC (RBC) [Mass/Vol] 32.6 g/dL Normal 29.9-35.2 [facility] Comment on above: Performed By: #### M G, RENAL, URIC #### [facility] [address] [address] [address] Sahil Turk MCV (RBC) [Entitic vol] 90.4 fL Normal 81.0-99.0 [facility] Comment on above: Performed By: #### M G, RENAL, URIC #### [facility] [address] [address] [address] Sahil Turk PLT 263 103/ul Normal 150-450 [facility] Comment on above: Performed By: #### M G, RENAL, URIC #### [facility] [address] [address] [address] Sahil Turk RBC 4.25 106/ul Normal 4.20-5.40 [facility] Comment on above: Performed By: #### M G, RENAL, URIC #### [facility] [address] [address] [address] Sahil Turk WBC 7.1 103/ul Normal 4.0-11.0 [facility] Comment on above: Performed By: #### M G, RENAL, URIC #### [facility] [address] [address] [address] Sahil Turk IRON AND TIBCon 12-10-2021 % SATURATION 20.3 % Normal [facility] Comment on above: Performed By: #### C MP, HSTROPN #### [facility] [address] [address] [address] Sahil Turk Iron [Mass/Vol] 61.0 ug/dL Normal 50.0-170.0 [facility] Comment on above: Performed By: #### C MP, HSTROPN #### [facility] [address] [address] [address] Sahil Turk TIBC DIRECT 300.0 ug/dL Normal 250.0-450.0 [facility] Comment on above: Performed By: #### C MP, HSTROPN #### [facility] [address] [address] [address] Sahil Turk MAGNESIUMon 12-10-2021 Magnesium [Mass/Vol] 1.7 mg/dL Critically low 1.8-2.4 [facility] Comment on above: Performed By: #### M G, RENAL, URIC #### [facility] [address] [address] [address] Sahil Turk RENAL FUNCTION PANELon 12-10 Albumin [Mass/Vol] 3.7 g/dL Normal 3.4-5.0 [facility] Comment on above: Performed By: #### M G, RENAL, URIC #### [facility] [address] [address] [address] Sahil Turk Calcium [Mass/Vol] 9.6 mg/dL Normal 8.5-10.1 [facility] Comment on above: Performed By: #### M G, RENAL, URIC #### [facility] [address] [place] [address] Dr. Sahil Turk Chloride [Moles/Vol] 102 mmol/L Normal 98-107 [facility] Comment on above: Performed By: #### M G, RENAL, URIC #### [facility] [address] [place] [address] Dr. Sahil Turk CO2 [Moles/Vol] 28.3 mmol/L Normal 21.0-32.0 [facility] Comment on above: Performed By: #### M G, RENAL, URIC #### [facility] [address] [place] [address] Dr. Sahil Turk Creatinine [Mass/Vol] 1.42 mg/dL Critically high 0.55-1.02 [facility] Comment on above: Performed By: #### M G, RENAL, URIC #### [facility] [address] [place] [address] Dr. Sahil Turk EGFR-AF WELSH 43 mL/min/1.73m2 Critically low >=60 [facility] Comment on above: Performed By: #### M G, RENAL, URIC #### [facility] [address] [place] [address] Dr. Sahil Turk EGFR-NON AF WELSH 36 mL/min/1.73m2 Critically low >=60 [facility] Comment on above: Performed By: #### M G, RENAL, URIC #### [facility] [address] [address] [address] Sahil Turk Glucose [Mass/Vol] 112 mg/dL Critically high 74-106 [facility] Comment on above: Performed By: #### M G, RENAL, URIC #### [facility] [address] [address] [address] Sahil Turk Phosphate [Mass/Vol] 3.4 mg/dL Normal 2.6-4.7 [facility] Comment on above: Performed By: #### M G, RENAL, URIC #### [facility] [address] [address] [address] Sahil Turk Potassium [Moles/Vol] 3.9 mmol/L Normal 3.5-5.1 [facility] Comment on above: Performed By: #### M G, RENAL, URIC #### [facility] [address] [address] [address] Sahil Turk Sodium [Moles/Vol] 140 mmol/L Normal 136-145 [facility] Comment on above: Performed By: #### M G, RENAL, URIC #### [facility] [address] [address] [address] Sahil Turk Urea nitrogen [Mass/Vol] 29.0 mg/dL Critically high 7.0-18 .0 [facility] Comment on above: Performed By: #### M G, RENAL, URIC #### [facility] [address] [address] [address] Sahil Turk UA RANDOM W/MICROSCOPICon BACTERIA NONE SEEN Normal NONE SEEN [facility] Comment on above: Performed By: #### M G, RENAL, URIC #### [facility] [address] [address] [address] Sahil Turk Bilirubin Ql (U) Negative Normal NEGATIVE [facility] Comment on above: Performed By: #### M G, RENAL, URIC #### [facility] [address] [address] [address] Sahil Turk CAST NONE SEEN Normal NONE SEEN [facility] Comment on above: Performed By: #### M G, RENAL, URIC #### [facility] [address] [address] [address] Sahil Turk Clarity (U) CLEAR Normal CLEAR [facility] Comment on above: Performed By: #### M G, RENAL, URIC #### [facility] [address] [place] [address] Dr. Sahil Turk Color (U) LT. YELLOW Normal YELLOW [facility] Comment on above: Performed By: #### M G, RENAL, URIC #### [facility] [address] [address] [address] Sahil Turk Crystals LM Nom (Urine sed) NONE SEEN Normal NONE SEEN [facility] Comment on above: Performed By: #### M G, RENAL, URIC #### [facility] [address] [place] [address] Dr. Sahil Turk Epithelial cells LM Ql (Urine sed) NONE SEEN Normal NONE SEEN /RARE [facility] Comment on above: Performed By: #### M G, RENAL, URIC #### [facility] [address] [place] [address] Dr. Sahil Turk Glucose Ql (U) Negative Normal NEGATIVE [facility] Comment on above: Performed By: #### M G, RENAL, URIC #### [facility] [address] [place] [address] Dr. Sahil Turk Hemoglobin Ql (U) Negative Normal NEGATIVE [facility] Comment on above: Performed By: #### M G, RENAL, URIC #### [facility] [address] [address] [address] Sahil Turk Ketones Ql (U) Negative Normal NEGATIVE [facility] Comment on above: Performed By: #### M G, RENAL, URIC #### [facility] [address] [place] [address] Dr. Sahil Turk LEUKOCYTES Negative Normal NEGATIVE [facility] Comment on above: Performed By: #### M G, RENAL, URIC #### [facility] [address] [place] [address] Dr. Sahil Turk MUCOUS NONE SEEN Normal NONE SEEN [facility] Comment on above: Performed By: #### M G, RENAL, URIC #### [facility] [address] [address] [address] Sahil Turk Nitrite Ql (U) Negative Normal NEGATIVE [facility] Comment on above: Performed By: #### M G, RENAL, URIC #### [facility] [address] [address] [address] Sahil Turk pH (U) 7.0 [pH] Normal 5-9 [facility] Comment on above: Performed By: #### M G, RENAL, URIC #### [facility] [address] [address] [address] Sahil Turk RBC NONE SEEN Abnormal 0-2 [facility] Comment on above: Performed By: #### M G, RENAL, URIC #### [facility] [address] [place] [address] Dr. Sahil Turk SPEC GRAVITY 1.010 Normal 1.005-<=1.0 25 [facility] Comment on above: Performed By: #### M G, RENAL, URIC #### [facility] [address] [place] [address] Dr. Sahil Turk UA PROTEIN Negative Normal NEGATIVE/ TRACE [facility] Comment on above: Performed By: #### M G, RENAL, URIC #### [facility] [address] [place] [address] Dr. Sahil Turk Urobilinogen Qn (U) 0.2 {Macie'U}/dL Normal 0.2 - 1. 0 [facility] Comment on above: Performed By: #### M G, RENAL, URIC #### [facility] [address] [place] [address] Dr. Sahil Turk WBC NONE SEEN Normal NONE SEEN [facility] Comment on above: Performed By: #### M G, RENAL, URIC #### [facility] [address] [place] [address] Dr. Sahil Turk URIC ACID SERUMon 12-10-2021 Urate [Mass/Vol] 6.6 mg/dL Critically high 2.6-6.0 [facility] Comment on above: Performed By: #### M G, RENAL, URIC #### [facility] [address] [address] [address] Sahil Turk URINE T PROTEIN CREAT RATIOo n 12-10-2021 UR TOTAL PROTEIN <6.0 Normal <=12.0 [facility] Comment on above: Performed By: #### U RTPCR #### [facility] [address] [address] [address] Sahil Turk URINE CREAT <13.00 Critically low 20.00-300.0 0 [facility] Comment on above: Performed By: #### U RTPCR #### [facility] [address] [address] [address] Sahil Turk VITAMIN D 25 OHon 12-10-2021 VIT D 25-OH 91.7 ng/mL Normal [facility] Comment on above: Performed By: #### C MP, HSTROPN #### [facility] [address] [place] [address] Dr. Sahil Turk VIT D RANGES SEE BELOW Normal [facility] Comment on above: Result Comment: <20 ng/mL Vit D deficient 20 - <30 ng/mL Vit D insufficient 30 - 100 ng/mL Vit D sufficient >100 ng/mL Potential Toxicity Performed By: #### C JAYY, HSTROPN #### [facility] [address] [place] [address] Dr. Sahil Turk US KEVIN DOP LEG BILon 022 US KEVIN DOP LEG OLIVIA EXAMINATION: US KEVNI DOP LEG OLIVIA HISTORY: Pain in right leg ; bilateral leg swelling COMPARISON: No relevant comparison available. FINDINGS: REGION: Bilateral lower extremities THROMBI: None. COMPRESSIBILITY: Normal compressibility. FLOW: Normal waveform and antegrade flow between 5 and 20 cm/s. OTHER: None. IMPRESSION: 1. No deep vein thrombus within the right or left lower extremity. Electronically authenticated by: LINDA REED Date: 2021-11-16 16:33 Normal [facility] FERRITINon 06-13-2021 Ferritin [Mass/Vol] 44 ng/mL Normal 15-150 [facility] Comment on above: Performed By: #### U RTPCR #### [facility] [address] [address] [address] Sahil Turk PTH INTACTon 06-13-2021 PTH, Intact 53 pg/mL Normal 15-65 [facility] Comment on above: Performed By: #### P THINT #### [facility] [address] [place] [address] Dr. Sahil Turk VIT D 25-OH [employer]on 2021 Vitamin D, 25-Hydroxy 50.5 ng/mL Normal 30.0-100.0 [facility] Comment on above: Result Comment: Barbie min D deficiency has been defined by the [place] [employer] and an Endocrine Society practice guideline as a level of serum 25-OH vitamin D less than 20 ng/mL (1,2). The Endocrine Society went on to further define vitamin D insufficiency as a level between 21 and 29 ng/mL (2). 1. IOM ([place] [employer]). 2010. Dietary reference intakes for calcium and D. [place]: The National Academies Press. 2. Benjamín MF, Vikram [place], Kira HERNANDEZ, et al. Evaluation, treatment, and prevention of vitamin D deficiency: an Endocrine Society clinical practice guideline. JCEM. 2010; 96(7):1911-30. Performed By: #### M G, RENAL, URIC #### [facility] [address] [place] [address] Dr. Sahil Turk HEMOGRAM AND PLATELon 2021 Hematocrit (Bld) [Volume fraction] 37.7 % Normal 36.0-48.0 [facility] Comment on above: Performed By: #### M G, RENAL, URIC #### [facility] [address] [place] [address] Dr. Sahil Turk Hemoglobin (Bld) [Mass/Vol] 12.2 g/dL Normal 12.0-16.0 [facility] Comment on above: Performed By: #### M G, RENAL, URIC #### [facility] [address] [place] [address] Dr. Sahil Turk MCH (RBC) [Entitic mass] 29.9 pg Normal 26.7-34.0 [facility] Comment on above: Performed By: #### M G, RENAL, URIC #### [facility] [address] [address] [address] Sahil Turk MCHC (RBC) [Mass/Vol] 32.4 g/dL Normal 29.9-35.2 [facility] Comment on above: Performed By: #### M G, RENAL, URIC #### [facility] [address] [address] [address] Sahil Turk MCV (RBC) [Entitic vol] 92.4 fL Normal 81.0-99.0 [facility] Comment on above: Performed By: #### M G, RENAL, URIC #### [facility] [address] [address] [address] Sahil Turk PLT 246 103/ul Normal 150-450 [facility] Comment on above: Performed By: #### M G, RENAL, URIC #### [facility] [address] [place] [address] Dr. Sahil Turk RBC 4.08 106/ul Critically low 4.20-5.40 [facility] Comment on above: Performed By: #### M G, RENAL, URIC #### [facility] [address] [address] [address] Sahil Turk WBC 5.7 103/ul Normal 4.0-11.0 [facility] Comment on above: Performed By: #### M G, RENAL, URIC #### [facility] [address] [address] [address] Sahil Turk IRON AND TIBCon 06-12-2021 % SATURATION 18.3 % Normal [facility] Comment on above: Performed By: #### U RTPCR #### [facility] [address] [address] [address] Sahil Turk Iron [Mass/Vol] 54.0 ug/dL Normal 37.0-170.0 [facility] Comment on above: Performed By: #### U RTPCR #### [facility] [address] [place] [address] Dr. Sahil Turk TIBC DIRECT 295.0 ug/dL Normal 261.0-497.0 [facility] Comment on above: Performed By: #### U RTPCR #### [facility] [address] [address] [address] Sahil Turk MAGNESIUMon 06-12-2021 Magnesium [Mass/Vol] 1.9 mg/dL Normal 1.6-2.3 [facility] Comment on above: Performed By: #### R ENAL, URIC, MG #### [facility] [address] [place] [address] Dr. Sahil Turk RENAL FUNCTION PANELon 06-12 Albumin [Mass/Vol] 3.7 g/dL Normal 3.5-5.0 [facility] Comment on above: Performed By: #### R ENAL, URIC, MG #### [facility] [address] [place] [address] Dr. Sahil Turk Calcium [Mass/Vol] 9.7 mg/dL Normal 8.4-10.2 [facility] Comment on above: Performed By: #### R ENAL, URIC, MG #### [facility] [address] [place] [address] Dr. Sahil Turk Chloride [Moles/Vol] 103 mmol/L Normal 98-107 [facility] Comment on above: Performed By: #### R ENAL, URIC, MG #### [facility] [address] [place] [address] Dr. Sahil Turk CO2 [Moles/Vol] 32.0 mmol/L Critically high 22.0-30.0 [facility] Comment on above: Performed By: #### R ENAL, URIC, MG #### [facility] [address] [place] [address] Dr. Sahil Turk Creatinine [Mass/Vol] 1.42 mg/dL Critically high 0.52-1.04 [facility] Comment on above: Performed By: #### R ENAL, URIC, MG #### [facility] [address] [place] [address] Dr. Sahil Turk EGFR-AF WELSH 43 mL/min/1.73m2 Critically low >=60 [facility] Comment on above: Performed By: #### R ENAL, URIC, MG #### [facility] [address] [place] [address] Dr. Sahil Turk EGFR-NON AF WELSH 36 mL/min/1.73m2 Critically low >=60 [facility] Comment on above: Performed By: #### R ENAL, URIC, MG #### [facility] [address] [place] [address] Dr. Sahil Turk Glucose [Mass/Vol] 101 mg/dL Normal 74-106 [facility] Comment on above: Performed By: #### R ENAL, URIC, MG #### [facility] [address] [place] [address] Dr. Sahil Turk Phosphate [Mass/Vol] 3.3 mg/dL Normal 2.5-4.5 [facility] Comment on above: Performed By: #### R ENAL, URIC, MG #### [facility] [address] [place] [address] Dr. Sahil Turk Potassium [Moles/Vol] 4.1 mmol/L Normal 3.4-5.0 [facility] Comment on above: Performed By: #### R ENAL, URIC, MG #### [facility] [address] [place] [address] Dr. Sahil Turk Sodium [Moles/Vol] 142 mmol/L Normal 137-145 [facility] Comment on above: Performed By: #### R ENAL, URIC, MG #### [facility] [address] [address] [address] Sahil Turk Urea nitrogen [Mass/Vol] 19.0 mg/dL Critically high 7.0-17 .0 [facility] Comment on above: Performed By: #### R ENAL, URIC, MG #### [facility] [address] [place] [address] Dr. Sahil Turk UA RANDOM W/MICROSCOPICon BACTERIA LARGE Abnormal NONE SEEN [facility] Comment on above: Performed By: #### M G, RENAL, URIC #### [facility] [address] [place] [address] Dr. Sahil Turk Bilirubin Ql (U) Negative Normal NEGATIVE [facility] Comment on above: Performed By: #### M G, RENAL, URIC #### [facility] [address] [address] [address] Sahil Turk CAST NONE SEEN Normal NONE SEEN [facility] Comment on above: Performed By: #### M G, RENAL, URIC #### [facility] [address] [address] [address] Sahil Turk Clarity (U) SL CLOUDY Abnormal CLEAR [facility] Comment on above: Performed By: #### M G, RENAL, URIC #### [facility] [address] [address] [address] Sahil Turk Color (U) LT. YELLOW Normal YELLOW [facility] Comment on above: Performed By: #### M G, RENAL, URIC #### [facility] [address] [place] [address] Dr. Sahil Turk Crystals LM Nom (Urine sed) NONE SEEN Normal NONE SEEN [facility] Comment on above: Performed By: #### M G, RENAL, URIC #### [facility] [address] [place] [address] Dr. Sahil Turk Epithelial cells LM Ql (Urine sed) RARE Normal NONE SEEN /RARE [facility] Comment on above: Performed By: #### M G, RENAL, URIC #### [facility] [address] [place] [address] Dr. Sahil Turk Glucose Ql (U) Negative Normal NEGATIVE [facility] Comment on above: Performed By: #### M G, RENAL, URIC #### [facility] [address] [address] [address] Sahil Turk Hemoglobin Ql (U) Negative Normal NEGATIVE [facility] Comment on above: Performed By: #### M G, RENAL, URIC #### [facility] [facility] [address] [address] [address] Sahil Turk Ketones Ql (U) Negative Normal NEGATIVE [facility] Comment on above: Performed By: #### M G, RENAL, URIC #### [facility] [address] [address] [address] Sahil Turk LEUKOCYTES SMALL Abnormal NEGATIVE [facility] Comment on above: Performed By: #### M G, RENAL, URIC #### [facility] [address] [address] [address] Sahil Turk MUCOUS NONE SEEN Normal NONE SEEN [facility] Comment on above: Performed By: #### M G, RENAL, URIC #### [facility] [address] [address] [address] Sahil Turk Nitrite Ql (U) Positive Abnormal NEGATIVE [facility] Comment on above: Performed By: #### M G, RENAL, URIC #### [facility] [address] [place] [address] Dr. Sahil Turk pH (U) 8.0 [pH] Normal 5-9 [facility] Comment on above: Performed By: #### M G, RENAL, URIC #### [facility] [address] [place] [address] Dr. Sahil Turk RBC 0-2 Normal 0-2 [facility] Comment on above: Performed By: #### M G, RENAL, URIC #### [facility] [address] [place] [address] Dr. Sahil Turk SPEC GRAVITY 1.015 Normal 1.005-<=1.0 25 [facility] Comment on above: Performed By: #### M G, RENAL, URIC #### [facility] [address] [place] [address] Dr. Sahil Turk UA PROTEIN Negative Normal NEGATIVE/ TRACE [facility] Comment on above: Performed By: #### M G, RENAL, URIC #### [facility] [address] [address] [address] Sahil Turk Urobilinogen Qn (U) 0.2 {Macie'U}/dL Normal 0.2 - 1. 0 [facility] Comment on above: Performed By: #### M G, RENAL, URIC #### [facility] [address] [place] [address] Dr. Sahil Turk WBC 10-20 Abnormal NONE SEEN [facility] Comment on above: Performed By: #### M G, RENAL, URIC #### [facility] [address] [address] [address] Sahil Turk URIC ACID SERUMon 06-12-2021 Urate [Mass/Vol] 7.7 mg/dL Critically high 2.5-6.2 [facility] Comment on above: Performed By: #### R ENAL, URIC, MG #### [facility] [address] [address] [address] Sahil Turk URINE T PROTEIN CREAT RATIOo n 06-12-2021 Protein (U) [Mass/Vol] 24.9 mg/dL Critically high <=12.0 [facility] Comment on above: Performed By: #### C JAYY, HSTROPN #### [facility] [address] [address] [address] Sahil Turk UR PROT CREAT RAT 0.33 Normal [facility] Comment on above: Performed By: #### C JAYY, HSTROPN #### [facility] [address] [address] [address] Sahil Turk URINE CREAT 76.21 mg/dL Normal 20.00-300.0 0 [facility] Comment on above: Performed By: #### C JAYY, HSTROPN #### [facility] [address] [address] [address] Sahil Turk Vital Signs Date Time Vital Sign Value Performing Clinician Facility 04-06-2024 18:18-0400 Hourly Rounding Ronobir AMPARO [facility] 04-06-2024 18:18-0400 Promise to Return Ronobir AMPARO [facility] 04-06-2024 17:21-0400 Diastolic blood pressure 82 mm[Hg] Ronobir AMPARO [facility] 04-06-2024 17:21-0400 Systolic blood pressure 156 mm[Hg] Ronobir AMPARO [facility] 04-06-2024 17:19-0400 Diastolic blood pressure 80 mm[Hg] Ronobir AMPARO [facility] 04-06-2024 17:19-0400 Heart rate 70 /min Ronobir AMPARO [facility] 04-06-2024 17:19-0400 Systolic blood pressure 171 mm[Hg] Ronobir AMPARO [facility] 04-06-2024 17:16-0400 Hourly Rounding Ronobir AMPARO [facility] 04-06-2024 17:16-0400 Promise to Return Ronobir AMPARO [facility] 04-06-2024 16:06-0400 Hourly Rounding Ronobir AMPARO [facility] 04-06-2024 16:06-0400 Promise to Return Ronobir AMPARO [facility] 04-06-2024 15:54-0400 gluc 137 mg/dL Ronobir AMPARO [facility] 04-06-2024 15:34-0400 SaO2% (BldA) [Mass fraction] 95 % Ronobir AMPARO [facility] 04-06-2024 15:27-0400 Heart rate 67 /min Ronobir AMPARO [facility] 04-06-2024 15:27-0400 SaO2% (BldA) [Mass fraction] 94 % Ronobir AMPARO [facility] 04-06-2024 15:25-0400 Diastolic blood pressure 86 mm[Hg] Ronobir AMPARO [facility] 04-06-2024 15:25-0400 Mean blood pressure 109 mm[Hg] Ronobir AMPARO [facility] 04-06-2024 15:25-0400 Systolic blood pressure 156 mm[Hg] Ronobir AMPARO [facility] 04-06-2024 15:25-0400 Body temperature 97.52 [degF] Ronobir AMPARO [facility] 04-06-2024 15:00-0400 Respiratory rate 18 /min Ronobir AMPARO [facility] 04-06-2024 11:46-0400 gluc 236 mg/dL Ronobir AMPARO [facility] 04-06-2024 11:21-0400 Heart rate 79 /min Ronobir AMPARO [facility] 04-06-2024 11:21-0400 SaO2% (BldA) [Mass fraction] 95 % Ronobir AMPARO [facility] 04-06-2024 11:18-0400 Mean blood pressure 90 mm[Hg] Ronobir AMPARO [facility] 04-06-2024 11:18-0400 Body temperature 97.88 [degF] Ronobir AMPARO [facility] 04-06-2024 07:53-0400 gluc 123 mg/dL Ronobir AMPARO [facility] 04-06-2024 07:35-0400 Mean blood pressure 102 mm[Hg] Ronobir AMPARO [facility] 04-06-2024 07:35-0400 Body temperature 97.7 [degF] Ronobir AMPARO [facility] 04-06-2024 01:03-0400 Body temperature 98.24 [degF] Ronobir AMPARO [facility] 04-06-2024 01:03-0400 Mean blood pressure 86 mm[Hg] Ronobir AMPARO [facility] 04-06-2024 01:03-0400 Respiratory rate 18 /min Ronobir AMPARO [facility] 04-05-2024 16:24-0400 Blood Pressure Location Ronobir AMPARO [facility] 04-05-2024 11:00-0400 Body temperature 98.06 [degF] Ronobir AMPARO [facility] 04-05-2024 11:00-0400 Mean blood pressure 83 mm[Hg] Ronobir AMPARO [facility] 04-05-2024 07:00-0400 Body temperature 97.52 [degF] Ronobir AMPARO [facility] 04-05-2024 07:00-0400 Mean blood pressure 78 mm[Hg] Ronobir AMPARO [facility] 04-04-2024 17:00-0400 Blood Pressure Location Ronobir AMPARO [facility] 04-04-2024 17:00-0400 Respiratory rate 67 /min Ronobir AMPARO [facility] 04-04-2024 05:00-0400 Respiratory rate 20 /min Ronobir AMPARO [facility] 04-04-2024 03:32-0400 Heart rate 89 /min Ronobir AMPARO [facility] 04-04-2024 03:32-0400 Respiratory rate 24 /min Ronobir AMPARO [facility] 04-04-2024 00:30-0400 Heart rate 114 /min Tika CHRISTENSEN [facility] 04-02-2024 15:50-0400 Body height 152.4 cm [facility] 04-02-2024 15:50-0400 Body mass index (BMI) [Ratio] 38.2 kg/m2 [facility] 04-02-2024 15:50-0400 Body temperature 98.4 [degF] [facility] 04-02-2024 15:50-0400 Body weight 88.9 kg [facility] 04-02-2024 15:50-0400 Diastolic blood pressure 69 mm[Hg] [facility] 04-02-2024 15:50-0400 Heart rate 83 /min [facility] 04-02-2024 15:50-0400 SaO2% (BldA) [Mass fraction] 97 % [facility] 04-02-2024 15:50-0400 Systolic blood pressure 112 mm[Hg] [facility] 03-19-2024 10:59-0400 Body height 152.4 cm [facility] 03-19-2024 10:59-0400 Body mass index (BMI) [Ratio] 38.5 kg/m2 [facility] 03-19-2024 10:59-0400 Body weight 89.35 kg [facility] 03-19-2024 10:59-0400 Diastolic blood pressure 74 mm[Hg] [facility] 03-19-2024 10:59-0400 Heart rate 80 /min [facility] 03-19-2024 10:59-0400 Respiratory rate 16 /min [facility] 03-19-2024 10:59-0400 SaO2% (BldA) [Mass fraction] 98 % [facility] 03-19-2024 10:59-0400 Systolic blood pressure 114 mm[Hg] [facility] 12-20-2023 11:19-0400 Body height 152.4 cm [facility] 12-20-2023 11:19-0400 Body mass index (BMI) [Ratio] 36.9 kg/m2 [facility] 12-20-2023 11:19-0400 Body weight 85.72 kg [facility] 12-20-2023 11:19-0400 Diastolic blood pressure 74 mm[Hg] [facility] 12-20-2023 11:19-0400 Heart rate 74 /min [facility] 12-20-2023 11:19-0400 SaO2% (BldA) [Mass fraction] 97 % [facility] 12-20-2023 11:19-0400 Systolic blood pressure 124 mm[Hg] [facility] 12-12-2023 13:18-0400 Body height 152.4 cm [facility] 12-12-2023 13:18-0400 Body mass index (BMI) [Ratio] 36.8 kg/m2 [facility] 12-12-2023 13:18-0400 Body weight 85.44 kg [facility] 12-12-2023 13:18-0400 Diastolic blood pressure 68 mm[Hg] [facility] 12-12-2023 13:18-0400 Heart rate 88 /min [facility] 12-12-2023 13:18-0400 Systolic blood pressure 121 mm[Hg] [facility] 08-02-2023 13:08-[address] [facility] 08-02-2023 13:08-[address] [facility] 08-02-2023 12:08-[address] [facility] 08-02-2023 12:08-[address] [facility] 08-02-2023 11:31-0500 Heart rate 85 /min [facility] 08-02-2023 11:31-0500 SaO2% (BldA) [Mass fraction] 94 % [facility] 08-02-2023 11:25-0500 Diastolic blood pressure 69 mm[Hg] [facility] 08-02-2023 11:25-0500 Mean blood pressure 83 mm[Hg] [facility] 08-02-2023 11:25-0500 Systolic blood pressure 110 mm[Hg] [facility] 08-02-2023 11:25-0500 Body temperature 97.34 [degF] [facility] 08-02-2023 11:08-[address] [facility] 08-02-2023 11:08-[address] [facility] 08-02-2023 11:00-0500 Respiratory rate 18 /min [facility] 08-02-2023 08:27-0500 Heart rate 74 /min [facility] 08-02-2023 08:27-0500 SaO2% (BldA) [Mass fraction] 93 % [facility] 08-02-2023 08:24-0500 Body temperature 97.88 [degF] [facility] 08-02-2023 08:24-0500 Diastolic blood pressure 72 mm[Hg] [facility] 08-02-2023 08:24-0500 Mean blood pressure 90 mm[Hg] [facility] 08-02-2023 08:24-0500 Systolic blood pressure 124 mm[Hg] [facility] 08-02-2023 00:20-0500 Body temperature 97.88 [degF] [facility] 08-02-2023 00:20-0500 Diastolic blood pressure 82 mm[Hg] [facility] 08-02-2023 00:20-0500 Heart rate 71 /min [facility] 08-02-2023 00:20-0500 Mean blood pressure 90 mm[Hg] [facility] 08-02-2023 00:20-0500 SaO2% (BldA) [Mass fraction] 94 % [facility] 08-02-2023 00:20-0500 Systolic blood pressure 112 mm[Hg] [facility] 08-01-2023 12:00-0500 Respiratory rate 16 /min [facility] 07-31-2023 16:26-[address] [facility] 07-31-2023 16:26-0500 Heart rate 65 /min [facility] 07-31-2023 16:26-0500 Respiratory rate 18 /min [facility] 07-31-2023 11:28-[address] [facility] 07-31-2023 11:28-0500 Heart rate 70 /min [facility] 07-31-2023 10:43-0500 Mean blood pressure 82 mm[Hg] [facility] 07-31-2023 10:43-0500 Respiratory rate 18 /min [facility] 07-31-2023 10:00-0500 Mean blood pressure 69 mm[Hg] [facility] 07-31-2023 10:00-0500 Respiratory rate 20 /min [facility] 07-31-2023 09:45-0500 Mean blood pressure 70 mm[Hg] [facility] 07-30-2023 20:31-0500 Heart rate 75 /min [facility] 06-15-2023 11:20-0500 Body height 152.4 cm Yaneth Germania [facility] [employer] Other 06-15-2023 11:20-0500 Body mass index (BMI) [Ratio] 35.35 kg/m2 Yaneth Germania [facility] 06-15-2023 11:20-0500 Body temperature 98.7 [degF] Yaneth Germania [facility] Other 06-15-2023 11:20-0500 Body weight 82.1 kg Yaneth Germania [facility] Other 06-15-2023 11:20-0500 Diastolic blood pressure 75 mm[Hg] Yaneth Germania [facility] Other 06-15-2023 11:20-0500 Respiratory rate 18 /min Yaneth Germania [facility] [employer] Other 06-15-2023 11:20-0500 SaO2% (BldA) [Mass fraction] 96 % Yaneth Germania [facility] Other 06-15-2023 11:20-0500 Systolic blood pressure 111 mm[Hg] Yaneth Germania [facility] Other 06-02-2023 14:15-0500 Body height 152.4 cm Harpal Hayes [facility] Other 06-02-2023 14:15-0500 Body mass index (BMI) [Ratio] 35.27 kg/m2 Harpal Hayes [facility] [employer] Other 06-02-2023 14:15-0500 Body weight 81.92 kg Harpal Hayes [facility] Other 06-02-2023 14:15-0500 Diastolic blood pressure 76 mm[Hg] Harpal Hayes [facility] [employer] Other 06-02-2023 14:15-0500 SaO2% (BldA) [Mass fraction] 96 % Harpal Hayes [facility] Other 06-02-2023 14:15-0500 Systolic blood pressure 134 mm[Hg] Harpal Hayes [facility] [employer] Other 03-07-2023 10:15-0400 Body height 152.4 cm Harpal Hayes [facility] Other 03-07-2023 10:15-0400 Body mass index (BMI) [Ratio] 36.83 kg/m2 Harpal Hayes [facility] Other 03-07-2023 10:15-0400 Body weight 85.55 kg Harpal Hayes [facility] Other 03-07-2023 10:15-0400 Diastolic blood pressure 82 mm[Hg] Harpal Hayes [facility] [employer] Other 03-07-2023 10:15-0400 SaO2% (BldA) [Mass fraction] 93 % Harpal Hayes [facility] Other 03-07-2023 10:15-0400 Systolic blood pressure 140 mm[Hg] Harpal Hayes [facility] Other 12-20-2022 11:20-0400 Body height 152.4 cm Yaneth Germania Other [facility] Other 12-20-2022 11:20-0400 Body temperature 96.7 [degF] Yaneth Germania [facility] Other 12-20-2022 11:20-0400 Diastolic blood pressure 67 mm[Hg] Yaneth Germania [facility] Other 12-20-2022 11:20-0400 Respiratory rate 18 /min Yaneth Germania [facility] Other 12-20-2022 11:20-0400 SaO2% (BldA) [Mass fraction] 97 % Yaneth Germania [facility] [employer] Other 12-20-2022 11:20-0400 Systolic blood pressure 104 mm[Hg] Yaneth Germania [facility] Other 06-14-2022 12:40-0500 Body height 152.4 cm Yaneth Germania [facility] Other 06-14-2022 12:40-0500 Body mass index (BMI) [Ratio] 35.15 kg/m2 Yaneth Germania [facility] Other 06-14-2022 12:40-0500 Body temperature 97.3 [degF] Yaneth Germania [facility] Other 06-14-2022 12:40-0500 Body weight 81.65 kg Yaneth Germania [facility] Other 06-14-2022 12:40-0500 Diastolic blood pressure 73 mm[Hg] Yaneth Germania [facility] Other 06-14-2022 12:40-0500 Respiratory rate 18 /min Yaneth Germania [facility] [employer] Other 06-14-2022 12:40-0500 SaO2% (BldA) [Mass fraction] 95 % Yaneth Germania [facility] Other 06-14-2022 12:40-0500 Systolic blood pressure 115 mm[Hg] Yaneth Germania [facility] [employer] Other 01-08-2022 03:50-0400 Diastolic blood pressure 80 mm[Hg] [facility] 01-08-2022 03:50-0400 Heart rate 82 /min [facility] [employer] 01-08-2022 03:50-0400 Respiratory rate 16 /min [facility] [employer] 01-08-2022 03:50-0400 SaO2% (BldA) [Mass fraction] 100 % [employer] 01-08-2022 03:50-0400 Systolic blood pressure 140 mm[Hg] [employer] 06-18-2021 12:00-0500 Body height 152.4 cm Yaneth Germania [facility] [employer] Other 06-18-2021 12:00-0500 Body temperature 96.3 [degF] Yaneth Germania [facility] [employer] Other 06-18-2021 12:00-0500 Diastolic blood pressure 74 mm[Hg] Yaneth Germania [facility] [employer] Other 06-18-2021 12:00-0500 Respiratory rate 18 /min Yaneth Germania [facility] [employer] Other 06-18-2021 12:00-0500 SaO2% (BldA) [Mass fraction] 96 % Yaneth Germania [facility] [employer] Other 06-18-2021 12:00-0500 Systolic blood pressure 120 mm[Hg] Yaneth Solo [facility] [employer] Other Encounters Encounter Date Encounter Type Care Provider Facility Start: 05-28-2024 End: 05-28-[address] [facility] Start: 04-04-2024 End: 04-06-2024 Evaluation and management of inpatient Ronobir R AMPARO Facility[facility] Start: 04-04-2024 Emergency department patient visit DO Terry Delvalle Facility:[facility] Start: 04-04-2024 End: 04-06-2024 Evaluation and management of inpatient Augustusobir R AMPARO [facility] Start: 04-02-2024 End: 04-02-2024 ambulatory [facility] Work Phone: Start: 04-02-2024 End: 04-02-2024 Patient encounter procedure [facility] Work Phone: Start: 03-19-2024 End: 03-19-2024 ambulatory [facility] Work Phone: Start: 03-19-2024 End: 03-19-2024 Patient encounter procedure [facility] Work Phone: Start: 01-16-2024 Non-patient / Non-visit [facility] Work Phone: Start: 12-20-2023 End: 12-20-2023 ambulatory [facility] Work Phone: Start: 12-20-2023 End: 12-20-2023 Patient encounter procedure [facility]phrology Work Phone: Start: 12-13-2023 Non-patient / Non-visit [facility] Work Phone: Start: 12-12-2023 End: 12-12-2023 ambulatory [facility] Work Phone: Start: 12-12-2023 End: 12-12-2023 Patient encounter procedure [facility] Work Phone: Start: 11-22-2023 End: 11-22-2023 ambulatory ZACH Huang [facility] Start: 11-07-2023 End: 11-07-[address] [facility] Start: 08-10-2023 End: 08-10-2023 ambulatory [facility] Start: 07-31-2023 End: 08-02-2023 Evaluation and management of inpatient Christie Zayas Facility:[facility] Start: 07-30-2023 End: 08-02-2023 Evaluation and management of inpatient Christie Zayas [facility] Start: 07-11-2023 End: 07-11-2023 ambulatory LINDA Brand NASIM Not Available Start: 06-23-2023 End: 06-23-2023 ambulatory Harpal Hayes [facility] Other Start: 06-23-2023 Telephone encounter Harpal Hayes [facility] Start: 06-22-2023 End: 06-22-2023 ambulatory Harpal Hayes [facility] Other Start: 06-22-2023 Telephone encounter Harpal Hayes [facility] Start: 06-15-2023 End: 06-15-2023 ambulatory Yaneth Germania [facility] [employer] Other Start: 06-15-2023 Office outpatient vi sit 25 minutes Yaneth Germania [facility]ph[facility] Start: 06-02-2023 End: 06-02-2023 ambulatory Harpal Hayes [facility] [employer] Other Start: 06-02-2023 Office outpatient vi sit 15 minutes Harpalcarolann Hayes [facility] Start: 05-24-2023 End: 05-24-2023 ambulatory Harpal Freddy [facility] Other Start: 05-24-2023 Telephone encounter Harpal Freddy [facility] Start: 05-18-2023 End: 05-18-2023 ambulatory Harpal Freddy Other [facility] Other Start: 05-18-2023 Telephone encounter Harpal Freddy [facility] Start: 05-09-2023 End: 05-09-2023 ambulatory Harpal Freddy Other [employer] Other Start: 05-09-2023 Telephone encounter Harpal Freddy [facility] Start: 03-15-2023 End: 03-15-2023 ambulatory Harpal Freddy Other [facility] Other Start: 03-15-2023 Telephone encounter Harpal Freddy [facility] Start: 03-07-2023 End: 03-07-2023 ambulatory Harpal Freddy Other [employer] Other Start: 03-07-2023 Office outpatient vi sit 25 minutes Harpal Freddy [facility] Start: 03-07-2023 Telephone encounter Harpal Freddy [facility] Start: 02-23-2023 End: 02-23-2023 ambulatory Harpal Hayes [facility] Other Start: 02-23-2023 Telephone encounter Harpal Hayes [facility] Start: 02-18-2023 End: 02-18-2023 ambulatory Harpal Freddy Other [facility] Other Start: 02-18-2023 Telephone encounter Harpal Freddy [facility] [employer] Start: 01-27-2023 End: 01-27-2023 ambulatory Harpal Hayes [facility] Other Start: 01-27-2023 Telephone encounter Harpal Freddy [facility] Start: 01-11-2023 End: 01-11-2023 ambulatory Harpal Freddy Other [employer] Other Start: 01-11-2023 Telephone encounter Harpal Freddy [facility] Start: 12-20-2022 End: 12-20-2022 ambulatory Yaneth Germania [facility] [employer] Other Start: 12-20-2022 Office outpatient vi sit 25 minutes Yaneth Germania [facility] Start: 12-06-2022 End: 12-06-2022 ambulatory Yaneth Germania [facility] [employer] Other Start: 12-06-2022 Telephone encounter Yaneth Germania [facility] Start: 12-06-2022 End: 12-06-2022 [facility]Site [facility] Start: 12-03-2022 End: 12-17-2022 Evaluation and management of inpatient Og TOLBERT [facility] Start: 12-01-2022 End: 12-01-2022 Off-Site [facility] Start: 11-15-2022 End: 11-15-2022 Off-Site [facility] Start: 11-14-2022 End: 12-01-2022 Evaluation and management of inpatient Og TOLBERT [facility] Start: 06-14-2022 End: 06-14-2022 ambulatory Yaneth Germania [facility] [employer] Other Start: 06-14-2022 Office outpatient vi sit 25 minutes Yaneth Germania [facility] Start: 06-09-[address] HARPAL HAYES Facil ity:[facility] Start: 05-27-2022 End: 05-27-[address] SULEMAN OLSEN Facility:[facility] Start: 04-26-2022 Gynecological examination normal Harpal Hayes [facility] [employer] Other Start: 03-11-2022 End: 03-11-2022 ambulatory CHRISTOPHER ABARCA Facility:[facility] Start: 02-21-2022 End: 02-21-2022 ambulatory ANDRADE DEBBIE Facility:[facility] Start: 02-18-2022 End: 02-24-2022 ambulatory [facility] PROVIDER [facility] Start: 01-08-2022 End: 01-08-2022 ambulatory [facility] Emergenc y Triage, Treat and Transport Start: 01-08-2022 End: 01-08-2022 Emergency department patient visit [facility] Emergency Triage, Treat and Transport Comment on above: Arrived Start: 01-06-2022 End: 01-07-2022 ambulatory MEI DAS Facility:[facility] Start: 12-10-2021 End: 12-11-2021 ambulatory YANETH GERMANIA Facility:[facility] Start: 11-16-2021 End: 11-17-[address] LINDA REED Facility:[facility] Start: 09-28-2021 End: 10-28-[address] HARPAL HAYES Facility:[facility] Start: 08-31-[address] HARPAL HAYES Facil ity:[facility] Start: 06-18-2021 End: 06-18-2021 ambulatory Yaneth Germania [facility] Other Start: 06-18-2021 Office outpatient vi sit 25 minutes Yaneth Germania [facility] Start: 06-12-2021 End: 06-13-2021 ambulatory YANETH GERMANIA Facility:[facility] Start: 06-09-2017 End: 06-10-2017 Ambulatory DEFAULT PHYSICIAN Facility:[facility] Start: 06-07-2017 End: 06-08-2017 Ambulatory DEFAULT PHYSICIAN Facility:[facility] [place] Start: 06-02-2017 End: 06-03-2017 Ambulatory DEFAULT PHYSICIAN Facility:[facility] [place] Start: 05-10-2017 End: 05-11-2017 Ambulatory DEFAULT PHYSICIAN Facility:[facility] [place] Procedures Date Procedure Procedure Detail Performing Clinician [...] 1945 COVID-19 Vaccine (#1) COVID-19 Vaccine (#1) [facility] Renal function 2000 panel - Serum or Plasma [facility] Immunizations Immunization Date Immunization Notes Care Provider Fa cility NEGATED: Highlighted row has not occurred! 6 pneumococcal polysaccharide vaccine, 23 valent Patient Objection Yaneth Germania Other food.de Other Payers Date Payer Category Payer Medicare MEDICARE MEDICAR E PART A & B [id number] 2022-Present [address] [place] [address] Medicare [id number] 2017 Unknown [id number] 1960 Medicare [id number] 2.16.840.1.687659.19 1945 Unknown [id number] 2.16.840.1.882016.3.579.2.732 1944 Unknown [id number] 2.16.840.1.031825.3.579.2.593 1944 Unknown [id number] 2.16.840.1.842458.3.579.2.593 1944 Unknown [id number] 2.16.840.1.409859.3.579.2.593 1944 Unknown [id number] 2.16.840.1.030145.3.579.2.593 1944 Unknown [id number] 2.16.840.1.065775.3.579.2.593 1944 Unknown [id number] 2.16.840.1.899674.3.579.2.593 1944 Unknown [id number] 2.16.840.1.735584.3.579.2.593 1944 Unknown [id number] 2.16.840.1.153315.3.579.2.593 1944 Unknown [id number] 2.16.840.1.902129.3.579.2.593 1944 Unknown [id number] 2.16.840.1.582263.3.579.2.593 1944 Unknown [id number] 2.16.840.1.209140.3.579.2.1259 1944 Unknown [id number] 2.16.840.1.892415.3.579.2.1286 1944 Unknown [id number] 2.16.840.1.416455.3.579.2.727 1944 Unknown [id number] 2.16.840.1.827993.3.579.2.727 1944 Unknown [id number] 2.16.840.1.326978.3.579.2.727 1944 Unknown [id number] 2.16.840.1.359981.3.579.2.727 1944 Unknown [id number] 2.16.840.1.156421.3.579.2.727 1944 Unknown [id number] 2.16.840.1.494350.3.579.2.727 1944 Unknown [id number] 2.16.840.1.907692.3.579.2.727 1944 Unknown [id number] 2.16.840.1.153304.3.579.2.727 1944 Unknown [id number] 2.16.840.1.024439.3.579.2.727 1944 Unknown [id number] 2.16.840.1.205664.3.579.2.727 1944 Unknown [id number] 2.16.840.1.895786.3.579.2.727 1944 Unknown [id number] 2.16.840.1.630668.3.579.2.72 1944 Unknown [id number] 2.16.840.1.783577.3.579.2.727 Self-pay Self Pay [id number] Unknown Social History Date Type Detail Facility Unknown if ever smoked food.de Other Sex Assigned At [facility] Tobacco smoking status WIIS Tobacco smoking consumption unknown [facility] Start: 1945 Sex Assigned At Not on file [facility] Tobacco smoking status No Smoking Status Entered [facility] Start: 07-27-2018 Tobacco smoking status NHIS Never smoked tobacco (finding) [facility] Start: 1945 Sex Assigned At Female [facility] Tobacco [facility] Comment on above: Denies. Functional Status Date Assessment Result Facility 04-04-2024 Functional Status No [facility] 04-04-2024 Functional Status [facility] 07-31-2023 Functional Status No [facility] 07-30-2023 Functional Status [facility] Clinical Notes 06-18-2021 to 05-28-2024 Note Date & Type Note Facility 05-28-2024 Note [facility] Cardiology Clinic Note Chief Complaint: Patient here for 6 mo follow up CAD, tricuspid valve disorder, HFpEF, and hypertension. She was admitted to [facility] in Mar 2024 and carvedilol was stopped, [...] no interventions. 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 H (more content not included)... [facility] 04-11-2024 Note Microbiology PROCEDURE: Blood Culture Charcoal [R1] SOURCE: Blood BODY SITE: Wrist R COLLECTED DATE/TIME: 04/04/2024 01:09 EDT RECEIVED DATE/TIME: 04/04/2024 01:27 EDT START DATE/TIME: 04/04/2024 01:27 EDT FREE TEXT SOURCE: Terry Delvalle DO, DO, Kaylinn A FINAL REPORTS Final Report [] Verified Date/Time: 04/11/2024 03:00 EST No growth at 7 days. Performing Locations R1: This test was performed at: [facility], [address] [place] [address], [id number] [place] [address], [address] [place] [address] Comment on above: Performed By: #### 1 [id number] #### [facility] [address] [place] [address] 04-11-2024 Note Microbiology PROCEDURE: Blood Culture Charcoal [...] Locations R1: This test was performed at: [facility], [address] [place] [address], [address] [place] [address], [address] [place] [address] Comment on above: Performed By: #### 1 [id number] #### [facility] [address] [place] [address] 04-11-2024 Note Microbiology PROCEDURE: Blood Culture Charcoal [...] Locations R1: This test was performed at: [facility], [address] [place] [address], [address] [place] [address], [address] [place] [address] Comment on above: Performed By: #### 1 [id number] #### [facility] [address] [place] [address] 04-11-2024 Note Microbiology PROCEDURE: Blood Culture Charcoal [...] Locations R1: This test was performed at: [facility], [address] [place] [address], [address]- , , [facility] Comment on above: Performed By: #### 1 [id number] #### [facility] [address] [place] [id number] 04-06-2024 Hospital Discharge instructions Patient Education 04/06/2024 15:10:57 Community-Acquired Pneumonia, Adult, Xpun-wr-Pqjc Community-Acquired Pneumonia, Adult Pneumonia is an infection [...] Follow these instructions at home: Medicines Take jqxe-nan-olqssqp and prescription medicines only as told by [...] cannot use soap and water, use hand strategic buyer. Contact a doctor if: You have a [...] provider. Document Revised: 07/21/2022 Document Reviewed: 07/21/2022 [employer] Patient Education 2023 [employer]. 04/06/2024 15:10:57 Sepsis, Self Care, Adult Sepsis, [...] Follow these instructions at home: Medicines Take yjlv-wlh-tipioel and prescription medicines only as told by [...] and water are not available, use hand strategic buyer. Practice good hygiene. Keep cuts clean and [...] right away. Call your local emergency services (300 in the [place] Do not drive yourself to the hospital. If you ever feel like you may hurt yourself or others, or have thoughts about taking your own life, get help right away. Go to your nearest emergency department or: Call your local emergency services (332 in the [place] Call a suicide crisis helpline, such as the National Suicide Prevention Lifeline at or 218 in the [place] This is open 24 hours a day. Text the Crisis Text Line at 554736 (in the [place] Summary Sepsis is a [...] provider. Document Revised: 04/25/2023 Document Reviewed: 04/25/2023 [employer] Patient Education 2023 [employer]. 04/06/2024 15:10:57 Sepsis, Diagnosis, Adult Sepsis, Diagnosis, [...] Follow these instructions at home: Medicines Take pyzy-qmj-ajsnfcy and prescription medicines only as told by [...] provider. Document Revised: 04/25/2023 Document Reviewed: 04/25/2023 [employer] Patient Education 2023 [employer]. Follow Up Care 04/04/2024 00:26:14 With:Toby Santiago Address: [place] [address]- Business (1) When:05/07/2024 14:00:00 With:Brianne Jane Address: [address] [place], [place] [address] [phone] Business (1) When:5 to 7 days Comments:Doctor's office is closed for the day. Please call Tuesday to make hospital follow up appointment. With:Follow up with your primary cardiology team as soon as possible Address:Unknown When: Unknown With:HARPAL HAYES Address: [address] [place] [phone]- Business (1) When:04/12/2024 11:30:00 With:Patient is currenct with [employer]. Address:Unknown When: Unknown [facility] 04-06-2024 Note Discharge Summary Admission and Discharge [...] and hypoxemia at [facility]. Johann Patterson () [phone], pt. is a FULL CODE, he states no prolonged code situation. -Pt. and her have made dgt. Lilian RAUSCHOA-HC [phone]. 1. Acute respiratory failure with hypoxia (J96.01: [...] -May d/c from cardio standpoint, F/U w/ [facility] in [place] 6. Acute kidney injury superimposed on stage [...] C w/ thera (more content not included)... [facility] Comment on above: Result Comment: Elec [...] tab(s), SubLingual, q5min, PRN, Unable to obtain Detroit 325 mg-5 mg oral tablet, 1 tab(s), [...] Information HARPAL FREDDY 04/12/2024 11:30 AM EST [address] [place] [address]- Business (1) Additional Instructions: Brianne Jane Within 5 to 7 days [address] [facility], [address] [phone] Business (1) Additional Instructions: Toby Santiago Within 5 to [address] [place] [address]- Business (1) Additional Instructions: Follow up with your primary cardiology team as soon as possible Additional Instructions: Patient is currenct with [facility]. Additional Instructions: Community-Acquired Pneumonia, Adult, Wcbq-rv-Eawv Sepsis, Self Care, Adult Sepsis, Diagnosis, Adult [...] no interventions. 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 is a FULL CODE, he states no prolonged code situation. -He has appointed DgtEleni Shah as primary spokesperson for all communication: [phone]. 1. Acute respiratory failure with hypoxia (J96.01: Acute respiratory failure with hypoxia) 2/2 PNA w/ failed outpt. zpak for bronchitis -Denies home 02 or cpap/bipap use - attempt to wean to [place] today -Supplemental 02 - BNP 161 -Tx. as below -Low threshold for PCCM consult if not improving in a.m. [facility]Day High 50 Minutes [id number] 2. Sepsis (A41.9: Sepsis, unspecified organism) 2/2 [...] deep vein thrombosis (DVT) prophylaxis (Z79.899: 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) -Hold heparin sq [...] Plan Post Void Residual Procalcitonin Referral to [facility] Stool Occult Blood Troponin 0 Hr. -Plan discussed w/ patient, nursing staff and CRM. This report was transcribed using voice recognition software. Every effort was made to ensure accuracy, however, inadvertently computerized security supervisor mistakes may be present. Extracted from: Title:Acute [...] -Max trop 67 - likely type II MD 2/2 demand ischemia 2/2 hypoxia/sepsis 2/2 PNA [...] deep vein thrombosis (DVT) prophylaxis (Z79.899: 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) -Heparin sq with [...] Dehydrogenase Post Void Residual Procalcitonin Referral to [facility] Reticulocyte Count TIBC Calculated TSH With T4fr Reflex Vitamin B12 Level -Plan discussed w/ patient, nursing staff and CRM. This report was transcribed using voice recognition software. Every effort was made to ensure accuracy, however, inadvertently computerized security supervisor mistakes may be present. Addendum by Akua NICHOLSON on April 04, 2024 12:47:39 EDT BNP, echo - pending, DC IVF per nephro. Addendum by Akua NICHOLSON on April 04, 2024 14:20:30 EDT Johann Patterson called in and stated that he would prefer his step dgt. Lilian Shah be point of contact for all information [phone] Extracted from: Title:Admission H & P Author:Tika [...] deep vein thrombosis (DVT) prophylaxis (Z79.899: 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) SCD, heparin Orders: [...] Therapy PT & PTT Rapid COVID Antigen ([facility]) Sputum Culture Troponin Troponin 1 Hr. Troponin 3 Hr. UA with Cult Rflx XR Chest Single View [facility] 10-31-2024 NoteProgress Note-Physician Patient: NADIA PATTERSON Age: [...] date 04/04/24 3:00:00 EDT, 04/04/24 2:42:00 EDT Detroit 325 mg-5 mg oral tablet: 1 tab(s), [...] EDT Prescriptions Prescribed nathaly (more content not included)...[facility]: Result Comment: Electronically Signed By: Jack BRIGGS, Toby\.br\Date and Time Signed: 04/05/24 15:[id number] NoteProgress Note-Physician Patient: NADIA PATTERSON Age: 78 [...] I learned that she has followed with [facility] cardiology in [place] and has had previous cardiac catheterization but with no intervention. She follows with cardiology at [facility] in [place] on regular basis. She has been having [...] the troponin. I suggested to let her distillery laborer decide whether further cardiac investigation will be [...] mg = 1 tab(s), PRN, SubLingual, q5min Detroit 325 mg-5 mg oral tablet 1 tab(s), [...] 10 mg 0.5 tab(s) (more content not included)...[facility]:Result Comment: Electronically Signed By: Delphine BRIGGS, Briseida\.br\Date and Time Signed: 04/05/24 14:19 [id number] Note Echocardiology Procedure Exam Date/Time Accession # Ordering Dr. Morley Transthoracic w/ 04/04/2024 15:12 EDT [id number] Akua NICHOLSON Contrast CPT code C8929 Reason for Exam (Echo Transthoracic w/ Contrast) Shortness of breath (SOB) Report [facility] [address] [place] [address] Adult Echocardiogram Report Name: NADIA PATTERSON Study Date: 04/04/2024 02:05 PM BP: 101/57 mmHg Patient Location: [address] [place] [address] Bed(s) [facility] HR: 69 : 1945 Gender: Female Height: [...] Signed by: Briseida Akers MD Transcribed by: [place] Technologist: [facility]10-31-2024 Note Interdisciplinary Note - PT PT Evaluation completed with an . Pt was able to perform bed mobility with CGA, but does need CGA/Min A to ambulate. Pt does have some unsteadiness when ambulating with FWW along with increased weakness. Will continue to follow daily. SNF recommended at this time, but do anticipate improvement. Will follow daily with [facility]10-31-2024 NoteProgress Note-Physician Assessment/Plan Johann Patterson () [phone], pt. is a FULL CODE, he states no prolonged code situation. -He has appointed DgtEleni Shah as primary spokesperson for all communication: [phone]. 1. Acute respiratory failure with hypoxia (J96.01: Acute respiratory failure with hypoxia) 2/2 PNA w/ failed outpt. zpak for bronchitis -Denies home 02 or cpap/bipap use - attempt to wean to [place] today -Supplemental 02 -BNP 161 -Tx. as below -Low threshold for PCCM consult if not improving in a.m. Or[facility]/Day High 50 Minutes [address] 2. Sepsis (A41.9: Sepsis, unspecified organism) 2/2 [...] deep vein thrombosis (DVT) prophylaxis (Z79.899: Other custodial (current) drug therapy) -Hold heparin sq 2/2 [...] 1 EA, Powder (more content not included)... [facility]:Result Comment: Electronically Signed By: Akua NICHOLSON\.br\Date and Time Signed: 04/05/24 09:59 EDT\.br\Electronically Co-Signed By: Miguel Ramires DO\.br\Date and Time Co-Signed: 04/05/24 10:03 [id number] NoteConsultation Note Patient: NADIA PATTERSON Age: 78 [...] 6:33:00 EDT Prescriptions Prescribe (more content not included)...[facility]:Result Comment: Electronically Signed By: Toby Santiago MD\.br\Date and Time Signed: 04/04/24 15:[id number] NoteConsultation Note Patient: NADIA PATTERSON Age: 78 [...] mg = 1 tab(s), PRN, SubLingual, q5min [place] 325 mg-5 mg oral tablet 1 tab(s), [...] ondansetron 2 mg/mL Inj (more content not included)...[facility]:Result Comment: Electronically Signed By: Delphine BRIGGS, Briseida\.br\Date and Time Signed: 04/04/24 15:23 [id number] Note Interdisciplinary Note - OT Attempted to see patient for OT evaluation however pt was undergoing testing in her room upon attempt. Will follow up as appropriate.[facility] 04-04-2024 NoteProgress Note-Physician Assessment/Plan Johann Patterson () [phone], pt. is a FULL CODE, he states [...] -Max trop 67 - likely type II MD 2/2 demand ischemia 2/2 hypoxia/sepsis 2/2 PNA [...] deep vein thrombosis (DVT) prophylaxis (Z79.899: 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) -Heparin sq with [...] Dehydrogenase Post Void Residual Procalcitonin Referral to [facility] Reticulocyte Count TIBC Calculated TSH With T4fr Reflex Vitamin B12 Level -Plan discussed w/ patient, nursing staff and CRM. This report was transcribed using voice recognition software. Every effort was made to ensure accuracy, however, inadvertently computerized security supervisor mistakes may be present. Subjective No acute events overnight. Patient states she feels tired and exhausted and not well. She denies CP, pressure, palpitations, N/V, or paresthesia. Review of Systems Constitutional: + fatigue/malaise, Respiratory: + harsh director inpatient headache program cough, + SOB/WOB/NASCIMENTO - does not wear [...] 04/04/24 * 04/03/24 04/02/24 (more content not included)...[facility]:Result Comment: Electronically Signed By: Akua NICHOLSON\.br\Date and Time Signed: 04/04/24 14:21 EDT\.br\Electronically Co-Signed By: Miguel Ramires DO04-04-2024 NoteProgress Note-Physician Assessment/Plan Johann Patterson () [phone], pt. is a FULL CODE, he states [...] -Max trop 67 - likely type II MD 2/2 demand ischemia 2/2 hypoxia/sepsis 2/2 PNA [...] deep vein thrombosis (DVT) prophylaxis (Z79.899: 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) -Heparin sq with [...] Dehydrogenase Post Void Residual Procalcitonin Referral to [facility] Reticulocyte Count TIBC Calculated TSH With T4fr Reflex Vitamin B12 Level -Plan discussed w/ patient, nursing staff and CRM. This report was transcribed using voice recognition software. Every effort was made to ensure accuracy, however, inadvertently computerized security supervisor mistakes may be present. Subjective No acute events overnight. Patient states she feels tired and exhausted and not well. She denies CP, pressure, palpitations, N/V, or paresthesia. Review of Systems Constitutional: + fatigue/malaise, Respiratory: + harsh director inpatient headache program cough, + SOB/WOB/NASCIMENTO - does not wear [...] 04/04/24 * 04/03/24 04/02/24 (more content not included)...[facility] above:Result Comment: Electronically Signed By: Akua NICHOLSON\.br\Date and Time Signed: 04/04/24 14:21 EDT\.br\Electronically Co-Signed By: Miguel Ramires DO\.br\Date and Time Co-Signed: 04/04/24 17:14 [id number] NoteProgress Note-Nurse PVR 116 hospitalist aware, orders for IVF off and BNP , IVF off as ordered and BNP resulted at 161.[facility]10-30-2024 NoteProgress Note-Physician Assessment/Plan Johann Yesenia () [phone], pt. is a FULL CODE, he states [...] -Max trop 67 - likely type II MD 2/2 demand ischemia 2/2 hypoxia/sepsis 2/2 PNA [...] deep vein thrombosis (DVT) prophylaxis (Z79.899: 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) -Heparin sq with [...] Dehydrogenase Post Void Residual Procalcitonin Referral to [facility] Reticulocyte Count TIBC Calculated TSH With T4fr Reflex Vitamin B12 Level -Plan discussed w/ patient, nursing staff and CRM. This report was transcribed using voice recognition software. Every effort was made to ensure accuracy, however, inadvertently computerized security supervisor mistakes may be present. Subjective No acute events overnight. Patient states she feels tired and exhausted and not well. She denies CP, pressure, palpitations, N/V, or paresthesia. Review of Systems Constitutional: + fatigue/malaise, Respiratory: + harsh director inpatient headache program cough, + SOB/WOB/NASCIMENTO - does not wear [...] 04/04/24 * 04/03/24 04/02/24 (more content not included)...[facility] above:Result Comment: Electronically Signed By: Akua NICHOLSON\.br\Date and Time Signed: 04/04/24 12:48 EDT\.br\Electronically Co-Signed By: Miguel Ramires DO04-04-2024 NoteProgress Note-Physician Assessment/Plan Johann Patterson () [phone], pt. is a FULL CODE, he states [...] -Max trop 67 - likely type II MD 2/2 demand ischemia 2/2 hypoxia/sepsis 2/2 PNA [...] deep vein thrombosis (DVT) prophylaxis (Z79.899: Other custodial (current) drug therapy) -Heparin sq with early [...] Dehydrogenase Post Void Residual Procalcitonin Referral to [facility] Reticulocyte Count TIBC Calculated TSH With T4fr Reflex Vitamin B12 Level -Plan discussed w/ patient, nursing staff and CRM. This report was transcribed using voice recognition software. Every effort was made to ensure accuracy, however, inadvertently computerized security supervisor mistakes may be present. Subjective No acute events overnight. Patient states she feels tired and exhausted and not well. She denies CP, pressure, palpitations, N/V, or paresthesia. Review of Systems Constitutional: + fatigue/malaise, Respiratory: + harsh director inpatient headache program cough, + SOB/WOB/NASCIMENTO - does not wear [...] 04/04/24 * 04/03/24 04/02/24 (more content not included)...[facility] above:Result Comment: Electronically Signed By: Akua NICHOLSON\.br\Date and Time Signed: 04/04/24 12:48 EDT\.br\Electronically Co-Signed By: Miguel Ramires DO\.br\Date and Time Co-Signed: 04/04/24 13:25 [id number] NoteHistory and Physical Basic Information Admit Date/Time:04/04/2024 [...] Lymph Auto: 4.7 % Low (04/04/24 01:05:00) Dukes Auto: 2.6 % Low (04/04/24 01:05:00) Eos Auto: 0.7 % (04/04/24 01:05:00) Basophil Auto: 0.3 % (04/04/24 01:05:00) Neutro Absolute: 7.5 E9/L (04/04/24 01:05:00) Lymph Absolute: 0.4 E9/L Low (04/04/24 01:05:00) Dukes Absolute: 0.2 E9/L (04/04/24 01:05:00) Eos Absolute: [...] acid per protocol. Antibio (more content not included)...[facility] Hospital[facility] above:Result Comment: Electronically Signed By: Tika CHRISTENSEN DO\Date and Time Signed: 04/04/24 03:00 [id number] [facility] Chief Complaint: Patient [...] block. Grade 1 diast (more content not included)...[facility]03-06-2024 Note [facility] Cardiology Clinic Note Chief Complaint: Patient here for 1.5 year follow up CAD, HFpEF, and hypertension. She was admitted to [facility] a few weeks ago for pneumonia. Daughter [...] stress test 03/2018 Myocardial (more content not included)...[facility] 08-07-2023 NoteMicrobiology PROCEDURE: Blood Culture Charcoal [R1] SOURCE: Blood BODY SITE: Arm R COLLECTED DATE/TIME: 07/30/2023 22:00 EST RECEIVED DATE/TIME: 07/30/2023 22:16 EST START DATE/TIME: 07/30/2023 22:16 EST FREE TEXT SOURCE: rt forearm Michele Marie DO. Michele Marie DO. FINAL REPORTS Final Report [] Verified Date/Time: 08/07/2023 07:00 EST No growth at 7 days. Performing Locations R1: This test was performed at: [facility], [address] [place] [address], [address] [place] [address], KfponkW[facility] HospitalComment on above:Performed By: #### [id number] ####[address] [id number] NoteMicrobiology PROCEDURE: Blood Culture Charcoal [R1] SOURCE: Blood BODY SITE: Hand L COLLECTED DATE/TIME: 07/30/2023 21:45 EST RECEIVED DATE/TIME: 07/30/2023 22:16 EST START DATE/TIME: 07/30/2023 22:16 EST FREE TEXT SOURCE: Michele Marie DO, DO, Kevin M. FINAL REPORTS Final Report [] Verified Date/Time: 08/07/2023 07:00 EST No growth at 7 days. Performing Locations R1: This test was performed at: [facility], [address] [place] [address], [address] , [place], MqgmutWvumedicine [facility] HospitalComment on above:Performed By: #### [id number] ####[facility] [id number] [place], [place] [id number] Evaluation + Plan noteExtracted from: Title:Discharge Note [...] 0.4 mg= 1 tab(s), SubLingual, q5min, PRN [place] 325 mg-5 mg oral tablet, 1 tab(s), [...] GRETEL ROWAN Within 3 to [address] [place], [place] [id number]- Additional Instructions: Call for followup appointment Community-Acquired Pneumonia, Adult, [id number] Extracted from: Title:APSO Note Author:Jesika WHITE student, [...] 07/30/23 23:14:00 EST Add on Test [facility]02-27-2024 Hospital Discharge instructions Patient Education 08/02/2023 11:02:24 Antibiotic Medicine, Adult, Xziy-bi-Wqkq Antibiotic Medicine, Adult Antibiotic medicines treat infections [...] medicine. Follow these instructions at home: Take dfzt-lge-pzwmkzu and prescription medicines as told by your [...] provider. Document Revised: 03/04/2020 Document Reviewed: 03/11/2020 [employer] Patient Education 2022 [employer]. 08/02/2023 10:11:36 Community-Acquired Pneumonia, Adult, Wvnn-ch-Chpe Community-Acquired Pneumonia, Adult Pneumonia is an infection [...] Follow these instructions at home: Medicines Take blaa-alb-rgrvaek and prescription medicines only as told by [...] cannot use soap and water, use hand strategic buyer. Contact a doctor if: You have a [...] provider. Document Revised: 07/21/2022 Document Reviewed: 07/21/2022 [employer] Patient Education 2022 [employer]. Follow Up Care 07/30/2023 20:29:22 With:HARPAL HAYES MD, FAM Address: [address] [place] [address]- When:08/09/2023 10:30:00 [facility]02-27-2024 NoteAdmission and Discharge Information Admit Date/Time:07/31/2023 01:03 Admitting Physician - Christie Zayas MD Admitting Diagnoses: Discharge Order Date Discharge Patient - Ordered -- 08/02/23 10:17:00 [facility] Discharge Diagnoses 1. Generalized weakness, 07/30/2023 [...] 0.4 mg= 1 tab(s), SubLingual, q5min, PRN [place] 325 mg-5 mg oral tablet, 1 tab(s), [...] Extra Strength 500 mg (more content not included)...[facility] HospitalComment on above:Result Comment: Electronically Signed By: Hector Meier DO\.br\Date and Time Signed: 08/02/23 10:18 [id number] NotePT Evaluation done this date. Pt. with on AM-PAC this date. Supervision to CGA with all activities this date. Recommend home health PT, will continue to follow while here.[facility] NoteBasic Information Admit Date/Time:07/31/2023 01:22 Chief [...] was reported that they talked to her laster hand about being fatigued lately and it was [...] % (07/30/23:45:00) Lymph Auto: 30.5 % (07/30/23:45:) Dukes Auto: 7.8 % (07/30/23:45:00) Eos Auto: 4.1 % (07/30/23:45:) Basophil Auto: 0.9 % (07/30/23:45:) Neutro Absolute: 3.2 E9/L (07/30/23:45:00) Lymph Absolute: 1.7 E9/L (07/30/23:45:00) Dukes Absolute: 0.4 E9/L (07/30/23:45:00) Eos Absolute: 0.2 [...] mg/dL High (07/30/23 20:34:00) POC Device SN: [id number] (07/30/23 20:34:00) POC User ID: [id number] (07/30/23 20:34:00) POC Username: DREAD CHURCH (07/30/23 20:34:00) UA Spec Desc: Clean Catch (07/30/23 22:50:00) UA Color: Yellow2 (07/30/23 22:50:00) UA Clarity: Clear2 (07/30/23 22:50:00) UA Spec Grav: 1.015 (07/30/23 22:50:00) UA pH: 7.0 (07/30/23 22:50:00) (more content not included)...[facility] HospitalComment on above:Result Comment: Electronically Signed By: Marquez BRIGGS, Christie\.br\Date and Time Signed: 07/31/23 03:31 [id number] Evaluation note* Encounter Date Diagnosis Assessment Notes [...] magnesium. Will increase oral magnesium once daily. food.de Other 12-28-2023 Evaluation note* Encounter Date Diagnosis Assessment Notes Treatment Notes Treatment Clinical Notes May, Acute non-recurrent maxillary sinusitis (ICD-10 - J01.00) Take antibiotic as directed. If develop wheezing, chest tightness, itching, bad cough, blue skin color, seizures, swelling of face, lips, tongue, or throat report to ED. food.de Other 10-02-2023 Evaluation note* Encounter Date Diagnosis Assessment Notes Treatment Notes Treatment Clinical Notes Mar, Lumbosacral spondylosis (ICD-10 - M47.817) [place] refilled. Requests to increase dose due to [...] symptoms. Any developing patterns. Stay well hydrated. food.de Other 08-08-2023 Evaluation note* Encounter Date Diagnosis Assessment Notes Treatment Notes Treatment Clinical Notes Jan, Hypertensive chronic kidney disease with stage 1 through stage 4 chronic kidney disease, or unspecified chronic kidney disease (ICD-10 - I12.9) food.de Other 07-17-2023 Evaluation note* Encounter Date Diagnosis [...] due to the multiple course of antibiotics food.de Other 01-09-2023 Evaluation note* Encounter Date Diagnosis [...] has a low magnesium. Continue oral magnesium food.de Other 12-22-2022 History general Narrative - Reported* Type Description Date Medical History DM Medical History Fibromyalgia Medical History Arthritis Medical History HIP PAIN BILATERAL Medical History NERVE 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 BI LATERAL Medical History UTI 05/27/22 [facility] E R Surgical History Procedure:Colostomy;Disease: no [...] NERVE BLOCK 04/09/2022 Hospitalization History see above food.de Other 12-22-2022 History general Narrative - Reported* Type Description Date Medical History DM Medical History Fibromyalgia Medical History Arthritis Medical History HIP PAIN BILATERAL Medical History NERVE 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 BI LATERAL Medical History UTI 05/27/22 [facility] E R Medical History UTI 11/06/2022 GIVEN BACTRIM Medical History UTI 11/10/2022 TAKEN TO [facility] Surgical History Procedure:Colostomy;Disease: no t current Surgical History right TKA 2016 Surgical History left TKA 2018 Surgical History Procedure:Lt femur with yadiel 3 s urgeries;Disease: Surgical History left wrist fracture Surgical History Procedure:Lt wrist pins and yadile s;Disease: Surgical History left femur fracture-yadiel placeme nt Surgical History RT TKA PER DR CANTRELL 04/22/16 Surgical History LT TKA PSI PER DR CANTRELL 03/09 Surgical History perforated bowel Surgical History BILATERAL NERVE BLOCK IN SACRAI L AREA 12/04/2021 Surgical History BILATERAL NERVE BLOCK 04/09/2022 Hospitalization History see above Hospitalization History UTI 11/06/2022 Hospitalization History UTI AT [facility] AND THEN [facility] 11/12/2022 food.de Other 12-22-2022 History general Narrative - Reported* Type Description Date Medical History DM Medical History Fibromyalgia Medical History Arthritis Medical History HIP PAIN BILATERAL Medical History NERVE 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 BI LATERAL Medical History UTI 05/27/22 [facility] E R Medical History UTI 11/06/2022 GIVEN BACTRIM Medical History UTI 11/10/2022 TAKEN TO [facility] Surgical History Colostomy Surgical History right TKA [...] History UTI 11/06/2022 Hospitalization History UTI AT [facility] AND THEN [facility] 11/12/2022 food.de Other 09-15-2022 History of Present illness Narrative* Madai Webb MD - 02/18/2022 8:44 PM EDT Images from the original note were not included. EMERGENCY TRIAGE, TREAT AND TRANSPORT (ET3) DOCUMENTATION OF TELEHEALTH VISIT Date / Time: 01/08/2022 / 0345am Name: Suhas Patterson : 1945 SSN: [id number] EMS Agency: [facility] [x] Verbal consent obtained [] [...] by: Madai Webb MD documented in this [id number] NotePROCEDURE: XR ANKLE RT MIN 3 VIEWS, [...] Electronically authenticated by: LINDA REED Date: 2021-11-16 16:37[facility]06-13-2022 NotePROCEDURE: XR ANKLE RT MIN 3 VIEWS, [...] Electronically authenticated by: LINDA REED Date: 2021-11-16 16:37[facility]01-13-2022 Evaluation note* Encounter Date Diagnosis Assessment Notes [...] within the goal. Continue [place] 72660 units 3/week Jun, Gout (ICD-10 - M10.9) [...] UTI so I have prescribed oral antibiotic. food.de Other Evaluation + Plan note No data available for this section [facility] Evaluation note* Diagnosis Fall, initial encounter- Primary documented in this encounter [facility] Other Evaluation noteNo assessment information available [facility] Work Phone: Evaluation note* Diagnosis Onset Date Resolution Status Cellulitis of leg without foot, left acute Fibromyalgia acute Insomnia acute Restless leg syndrome acute Anemia of renal disease acut e CKD (chronic kidney disease) stage 3, GFR 30-59 ml/min acute 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 Gout acute [id number] acute Hypomagnesemia acute Secondary hyperparathyroidism acute [facility] Work Phone: Evaluation note* Diagnosis Onset Date Resolution Status Anemia of renal disease acut e CKD (chronic kidney disease) stage 3, GFR 30-59 ml/min acute 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 Gout acute Hyperlipidemia acute [id number] acute Hypomagnesemia acute Secondary hyperparathyroidism acute [facility] Work Phone: Evaluation note* Diagnosis Onset Date Resolution Status Fibromyalgia acute Insomnia acute Restless leg syndrome acute [facility] Work Phone: History general Narrative - [...] History perforated bowel Hospitalization History see above food.de Other Hospital Discharge instructions No data available for this section [facility] Progress note No data available for this section [facility] Care Summary Purpose Family History No Family [...] Diabetes mellitus with chronic kidney disease Gout [id number] Hypomagnesemia Secondary hyperparathyroidism Chief Complaint RENAL 6 month follow up 3 month f/u/med refills Reason for Visit Anemia of renal dise ase CKD (chronic kidney disease) stage 3, GFR 30-59 ml/min Diabetes mellitus with chronic kidney disease Gout Hyperlipidemia [id number] Hypomagnesemia Secondary hyperparathyroidism Chief Complaint 3 month f/u/med refi lls chest congestion Reason for Visit Fibromyalgia Insomnia Restless leg syndrome Additional Source Comments INFORMATION SOURCE (unrecogn ized section and content) DATE CREATED AUTHOR 11/29/2017 [facility] DATE CREATED AUTHOR AUTHOR'S ORGANIZ ATION 03/06/2022 [facility] DATE CREATED AUTHOR AUTHOR'S ORGANIZ ATION 06/08/2022 [facility] DATE CREATED AUTHOR AUTHOR'S ORGANIZ ATION 07/12/2023 [facility] EP[facility] DATE CREATED AUTHOR AUTHOR'S ORGANIZ ATION 11/24/2023 [facility] DATE CREATED AUTHOR AUTHOR'S ORGANIZ ATION 04/05/2024 [facility] DATE CREATED AUTHOR AUTHOR'S ORGANIZ ATION 04/06/2024 [facility] DATE CREATED AUTHOR AUTHOR'S ORGANIZ ATION 04/07/[address] [facility] DATE CREATED AUTHOR AUTHOR'S ORGANIZ ATION 04/08/2024 [facility] DATE CREATED AUTHOR AUTHOR'S ORGANIZ ATION 04/12/2024 [facility] DATE CREATED AUTHOR AUTHOR'S ORGANIZ ATION 04/13/[address] [facility] DATE CREATED AUTHOR AUTHOR'S ORGANIZ ATION 05/30/2024 [facility] REASON FOR VISIT (unrecogniz ed section and [...] BE BASED ON THE PRIMARY CLINICAL RECORDS. [employer] provides no warranty or guarantee of the accuracy or completeness of information in this document.
[2024-07-12 06:50] LABS: Troponin I High Sensitivity 73.8 pg/mL (4.0-51.3)
--- NOTE | 2024-07-12 08:59 | P.HP_ITS ---
HPI H&P: HPI History of Present Illness Chief complaint: GENERAL WEAKNESS,UTI,FEVER Narrative: Patient is a 79 y.o white female with past medical history of HLD, hypothyroidism, non-insulin type 2 diabetes, urinary incontinence, restless legs, insomnia, CKD stage 4 (follows with Dr. Caldwell) and CHF unknown type (follows with [facility] cardiology) who presented to the ER last night with a several day history of weakness, fever, chills and cough. She was brought in by EMS and had episode of urinary incontinence. Her daughter Irma is at bedside today. The patient spent most of the day yesterday in bed. She reports patient's has been sick with URI and just recently started antibiotic. She is not on home oxygen. She follows regularly with her specialists. She has [employer] that comes once a week. She does not have a [employer]ings Catheter at home. Daughter Notes she was hospitalized march 2024 for PNA and also had NSTEMI then which sounds like acute CHF episode. She is being treated for chronic bilateral lower wounds/blisters and edema. Patient denies chest pain, just says she is short of breath with and is tired. No n/v/d, had fever in the ER but nothing current. ER findings: Temp 101, RR 33, pulse 94, pulse ox was 80% and 2L was placed up to 98 % now; WBCs 7.9, Hb 12.7, K 3.4, Cr 1.88 (baseline 1.35) BUN 20, lactate 1.9 Chest Xray showed no acute findings, covid negative, influenza negative, Troponin- 68-73.5- 73.8 Opioid HPI Opioid Management Most Recent Pain and Opioid Data: Last Pain Scale 9 07/12/24 09:36 07/12/24 Last Pain Intensity 3 07/12/24 09:00 07/12/24 Last Pain Assessment 07/12/24 10:11 Last MAR Pain Assessment 07/12/24 10:59 Last ORT Total Score 0 07/12/24 05:26 07/12/24 Last ORT Risk Category Low Risk 07/12/24 05:26 07/12/24 Review of Systems ROS Narrative ROS: a complete review of systems were reviewed with patient and are positive as below or listed in History of Chief Complaint. General: fever, chills, no night sweats Head: no headache, trauma, visual changes, nausea or vomiting Skin: no reported rashes, itching or sores Eyes: no blurriness of vision Ears: no reported hearing loss, vertigo, earache, or tinnitus Throat: no sore throat, hoarseness, swelling of neck, or tongue pain Heart: no chest pain Lungs: shortness of breath and cough GI: no diarrhea or vomiting/nausea Urinary: urinary urgency, frequency and pain Neuro: no numbness or tingling HEM: no bleeding issues or bruising ENDO: thyroid problems Psych: no anxiety or depression PFSH PFSH Medical History (Updated 07/12/24 @ 11:16 by Nava De Leon DO) Fibromyalgia ?M79.7 - Fibromyalgia (ICD-10) CKD (chronic kidney disease), stage III ?N18.30 - Chronic kidney disease, stage 3 unspecified (ICD-10) CHF (congestive heart failure) ?I50.9 - Heart failure, unspecified (ICD-10) Hypothyroidism ?E03.9 - Hypothyroidism, unspecified (ICD-10) Hyperlipidemia associated with type 2 diabetes mellitus ?E11.69 - Type 2 diabetes mellitus with other specified complication (ICD-10) ?E78.5 - Hyperlipidemia, unspecified (ICD-10) Diabetes ?E11.9 - Type 2 diabetes mellitus without complications (ICD-10) Essential tremor ?G25.0 - Essential tremor (ICD-10) Heart attack ?I21.9 - Acute myocardial infarction, unspecified (ICD-10) Surgical History H/O knee surgery ?Z98.890 - Other specified postprocedural states (ICD-10) Social History Smoking status: Never smoker Highest level of school completed/degree received: high school graduate Little interest or pleasure in doing things: not at all Feeling down, depressed, or hopeless: not at all Meds Home Medications and Allergies Home Medications ?Medication ?Instructions ?Recorded ?Confirmed ?Type cephalexin 500 mg capsule 500 mg PO Q12H 7 days #14 caps 03/14/23 Rx aspirin 81 mg tablet,delayed 81 mg PO DAILY 07/12/24 07/12/24 History release (Adult Aspirin Regimen) atorvastatin 10 mg tablet 10 mg PO .qd 07/12/24 07/12/24 History carvedilol 3.125 mg tablet 3.125 mg PO Q12H 07/12/24 07/12/24 History cholecalciferol (vitamin D3) 125 5,000 unit PO .COMPLEX 07/12/24 07/12/24 History mcg (5,000 unit) tablet docusate calcium 240 mg capsule 240 mg PO .COMPLEX PRN constipation 07/12/24 07/12/24 History ferrous sulfate 325 mg (65 mg 325 mg PO DAILY 07/12/24 07/12/24 History iron) tablet (FeroSul) furosemide 40 mg tablet 40 mg PO .qd 07/12/24 07/12/24 History hydrocodone 5 mg-acetaminophen 325 1 tab PO Q12H PRN pain 07/12/24 07/12/24 History mg tablet levothyroxine 50 mcg tablet 50 mcg PO .qd 07/12/24 07/12/24 History magnesium glycinate 100 mg (as 400 mg PO DAILY 07/12/24 07/12/24 History glycinate) tablet (Mag Glycinate) metformin 500 mg tablet 500 mg PO BID 07/12/24 07/12/24 History mirabegron 50 mg tablet,extended 50 mg PO DAILY 07/12/24 07/12/24 History release 24 hr (Myrbetriq) potassium chloride 10 mEq 10 meq PO BID 07/12/24 07/12/24 History tablet,extended release pregabalin 100 mg capsule 100 mg PO BID 07/12/24 07/12/24 History ropinirole 2 mg tablet 2 mg PO QPM 07/12/24 07/12/24 History trazodone 100 mg tablet 100 mg PO .qhs 07/12/24 07/12/24 History Allergies Allergy/AdvReac Type Severity Reaction Status Date / Time butorphanol (From Stadol) Allergy Severe Verified 03/14/23 13:59 sulfamethoxazole (From Allergy Severe Verified 04/03/23 15:13 Bactrim) trimethoprim (From Bactrim) Allergy Severe Verified 04/03/23 15:13 Exam Narrative Exam Narrative: General: Patient is alert, and oriented to person, place and time with normal affect, proper hygiene Skin: no visible rashes, or ulcers Head: atraumatic, acephalic Eyes: PERRLA, no nystagmus present, conjunctiva clear, no scleral icterus Ears: normal gross auditory acuity Neck: no masses palpated, normal thyroid Heart: Normal rate and rhythm, no murmurs/rubs/gallops Lungs: audible crackles and diminished breath sounds all lung martinez Abdomen: Normal audible bowel sounds, distension, No palpable masses, suprapubic tenderness Musculoskeletal: 1+ swelling bilateral lower extremities Neuro: CN II-X grossly intact Constitutional Vital Signs, click to edit/add: Last Vital Signs Temp 98.4 F 07/12/24 07:34 Pulse 94 H 07/12/24 08:00 Resp 18 07/12/24 07:34 BP 145/65 H 07/12/24 07:34 Pulse Ox 98 07/12/24 07:34 O2 Del Method Nasal Cannula 07/12/24 07:34 O2 Flow Rate 2 07/12/24 07:34 Results Labs Labs: Short CBC 07/12/24 Range/Units 02:27 WBC 7.9 (4.0-11.0) 10^3/uL Hgb 12.7 (12.0-16.0) g/dL Hct 39.5 (36.0-48.0) % Plt Count 203 (150-450) 10^3/uL BMP 07/12/24 02:27 Sodium 144 Potassium 3.4 L Chloride 102 Carbon Dioxide 32.4 H BUN 20.0 H Creatinine 1.88 H Glucose 174 H Calcium 9.5 Urine 07/12/24 Range/Units 03:26 Urine Color Lt. yellow (YELLOW) Urine Clarity Clear (CLEAR) Urine pH 6.0 (5.0-9.0) Ur Specific Phenix 1.015 (1.005-1.025) Urine Protein 30 A (NEG/TRACE) mg/dL Urine Glucose (UA) Negative (NEGATIVE) mg/dL Assessment and Plan Assessment and Plan (1) Urinary tract infection: Assessment and Plan: Continue rocephin daily, monitor renal function; check Ultrasound bladder and kidneys, awaiting Urine culture, prior was Ecoli Qualifiers: Hematuria presence: without hematuria Urinary tract infection type: acute cystitis Qualified Code(s): N30.00 - Acute cystitis without hematuria (2) Acute renal failure: Assessment and Plan: follows with warehouse analyst, Baseline 1.35, GFR 29, today Cr 1.88, BUN 20 GFR 26. check ultrasound Qualifiers: Acute renal failure type: unspecified Qualified Code(s): N17.9 - Acute kidney failure, unspecified (3) NSTEMI (non-ST elevated myocardial infarction): Assessment and Plan: Most likely type 2 NSTEMI secondary to renal impairment, continue to trend. No concerning EKG with ST elevations or depressions, no chest pain but shortness of breath. Also in acute CHF. Cardiology consult, no one available today. Echocardiogram today. (4) Acute on chronic diastolic CHF (congestive heart failure): Assessment and Plan: monitor strict I&O's, fluid restriction to 1.5L and low sodium diet. Increase lasix to 40mg IV BID. Check Echo today. continue Coreg. (5) Acute respiratory failure with hypoxia: Assessment and Plan: secondary to #4, currently on 2L NC oxygen. Chest X-ray was negative but sounds of fluid overload on exam, start Lasix IV (6) Generalized weakness: Assessment and Plan: PT/OT consult (7) Diabetes: Assessment and Plan: hold metformin, monitor accuchecks, SSI as needed Qualifiers: Chronic kidney disease stage: unspecified stage Diabetes mellitus complication detail: with chronic kidney disease Diabetes mellitus complication status: with kidney complications Diabetes mellitus terminal operations supervisor insulin use: without terminal operations supervisor use Diabetes mellitus type: type 2 Qualified Code(s): E11.22 - Type 2 diabetes mellitus with diabetic chronic kidney disease (8) Essential tremor: Assessment and Plan: continue home meds (9) Hyperlipidemia associated with type 2 diabetes mellitus: Assessment and Plan: recheck lipids, continue atorvastatin (10) Insomnia: Assessment and Plan: continue trazodone Qualifiers: Insomnia type: primary Qualified Code(s): F51.01 - Primary insomnia (11) Hypothyroidism: Assessment and Plan: recheck TFT's, continue levothyroxine Qualifiers: Hypothyroidism type: unspecified Qualified Code(s): E03.9 - Hypothyroidism, unspecified (12) Fibromyalgia: Assessment and Plan: currently takes hydrocodone (13) Anemia in chronic kidney disease: Assessment and Plan: continue to monitor H&H, continue iron supplement Qualifiers: Chronic kidney disease stage: stage 4 (GFR 15-29) Qualified Code(s): N18.4 - Chronic kidney disease, stage 4 (severe); D63.1 - Anemia in chronic kidney disease Plan Patient is a full code Heparin for DVT prophylaxis Patient is inpatient status and is expected to cross 2 midnights for her acute UTI, SIRS and Acute renal failure, NSTEMI Urinary Catheter Management Urinary Catheter Management Urethral: Cath placed during this visit: no
--- NOTE | 2024-07-12 09:06 | US_ITS ---
The [address] [address] Patient Name: NADIA COOLEY MRN: [id number] date: 1945 Sex: F Assigned Patient Location: [place] Current Patient Location: [place] Accession/Order Number: [id number] Exam Date: 07/12/2024 09:07 Report Date: 07/12/2024 11:05 At the request of: ROBERT JACKSON Procedure: US renal BI EXAMINATION: US renal BI HISTORY: david, UTI COMPARISON: No relevant comparison available. TECHNIQUE: Ultrasound examination was performed of the bladder. FINDINGS: Right Kidney: Normal in size, contour and cortical echotexture. The cortex measures 10 mm. No solid cortical mass, hydronephrosis or obstructing nephrolithiasis Height: 4.07 cm Length: 10.08 cm Width: 4.86 cm Left Kidney: Poorly visualized. Grossly normal in contour. Small in size. The cortex measures 7.5 mm Height: 4.17 cm Length: 7.75 cm Width: 4.40 cm The urinary bladder is not definitively visualized likely representing nondistention. US/US renal BI IMPRESSION: Left renal atrophy No definite mass or hydronephrosis Electronically authenticated by: MALACHI HATFIELD Date: 07/12/2024 11:05
--- NOTE | 2024-07-12 09:15 | CA_ITS ---
Patient Name: NADIA COOLEY MR#: [id number] : 1945 Exam Date: 07/12/2024 Ordering Doctor: ROBERT JACKSON . ECHOCARDIOGRAM REPORT PROCEDURE: CA ECHO DOPPLER COMPLETE INDICATIONS: elevated trop, hypoxia, elevated BNP, diabetes COMPARISON: None. DESCRIPTION: COMPLETE ECHOCARDIOGRAM Real-time transthoracic echocardiography with 2D, M-mode, spectral and color flow Doppler performed. QUALITY: Technically difficult due to patient's condition. LEFT VENTRICLE: Normal chamber size. Borderline concentric left ventricular hypertrophy. Normal systolic function. LV EF: Normal left ventricular ejection fraction, (>55%). DIASTOLIC: ATRIAL SEPTUM: LEFT ATRIUM: Normal chamber size. RIGHT ATRIUM: Normal chamber size. RIGHT VENTRICLE: Normal chamber size. Normal systolic function. Unable to assess right-sided pressures due to lack of measurable tricuspid regurgitation. TRICUSPID VALVE: Normal mobility and thickness. No stenosis with trivial regurgitation. MITRAL VALVE: Normal mobility and thickness. No evidence of mitral valve stenosis. There is no mitral annular calcification. No mitral regurgitation. AORTIC VALVE: Normal trileaflet appearance. Normal leaflet mobility. No evidence of aortic valve stenosis. Mild calcification. No aortic regurgitation. AORTIC ROOT: Normal diameter and appearance. Ascending aorta is normal in size (3.4 cm). PULMONIC VALVE: Normal thickness and mobility. No stenosis. Mild regurgitation. PERICARDIUM: No evidence of pericardial effusion. IVC: Collapses with inspirations. IVC is normal in size. PLEURA: CONCLUSION: 1. Normal ventricular size and systolic function. LVEF is estimated at 60 to 65%. 2. No significant valvular dysfunction. 3. Unable to assess right-sided pressures due to lack of measurable tricuspid regurgitation. Adult Echocardiography Procedure Report Left Ventricle LVEDD (3.7 - 5.6 cm): 4.74 cm LVESD (2.2 - 4.0 cm): 3.45 cm LVIVS thickness (0.6 - 1.2 cm): 1.04 cm LVPW thickness (0.5 - 1.0 cm): 1.13 cm LVOT Max Gradient: 2.52 mm[Hg] LVOT Area (cm2): 0.79 m/s Peak Velocity (LVOT): 0.79 m/s LVOT Diameter 1.80 cm Left Atrium Left Atrium Systolic Dimension: 3.69 cm Mitral Valve MV E to A Ratio: 0.61 Mitral Valve A-Wave Peak Velocity: 0.50 m/s Mitral Valve E-Wave Peak Velocity: 0.31 m/s Right Ventricle Aorta AO Root Diam: 2.79 cm Ascending Ao Diam: 3.44 cm Aortic Valve AoV Area (Peak Cory): 1.83 cm2, 1.83 cm2 Peak Velocity(Antegrade Flow): 1.11 m/s Peak Gradient(Antegrade Flow): 4.91 mm[Hg] Tricuspid Valve Pulmonic Valve Mean Gradient: 2.23 mm[Hg] Mean Velocity: 0.71 m/s Peak Velocity: 1.00 m/s, 0.96 m/s Peak Gradient: 3.68 mm[Hg], 3.96 mm[Hg] Right Atrium Right Atrium Systolic Pressure: 45.45 ml, 45.45 ml Dictated by: Thomas Herrera M.D. on 07/12/2024 at 13:34 Approved by: Thomas Herrera M.D. on 07/12/2024 at 13:37
[2024-07-12 09:33] LABS: Creatine Kinase 257 U/L (26-192)
[2024-07-12] MEDS: LEVOTHYROXINE SODIUM 25 MCG TABLET 50 MCG PO (09:34)
[2024-07-12] MEDS: PREGABALIN 100 MG CAPSULE PO (09:34)
[2024-07-12] MEDS: FUROSEMIDE 40 MG TABLET PO (09:34)
[2024-07-12] MEDS: HEPARIN SODIUM (PORCINE) 5,000 UNIT/ML VIAL 5000 UNIT SUBQ ×2 (09:34→21:16)
[2024-07-12] MEDS: POTASSIUM CHLORIDE 10 MEQ ER TABLET PO ×2 (09:35→21:16)
[2024-07-12 10:00] LABS: Chol HDL Ratio 1.9; Cholesterol 124 mg/dL (<=200); HDL Cholesterol 67 mg/dL (40-60); Thyroid Stimulating Hormone 1.264 uIU/mL (0.358-3.740); Triglycerides 57 mg/dL (<=150); VLDL CHOLESTEROL 11.4 mg/dL
[2024-07-12 10:19] LABS: Estimated Average Glucose 148 mg/dL; Glycohemoglobin A1C 6.8 % (4.5-6.2)
--- NOTE | 2024-07-12 11:25 | CM.NOTE ---
Rounds made with Dr. De Leon. Daughter, Irma in room and answers all questions for Dr. De Leon. Dr. De Leon reviews plan of care and current findings. No discharge today.
--- NOTE | 2024-07-12 11:52 | SWNOTE1 ---
Important Message from Medicare reviewed and discussed with patient's daughter. Pt's daughter verbalized understanding and signed the form. Original given to patient's daughter and copy placed in patient?s chart.
--- NOTE | 2024-07-12 11:53 | SWNOTE1 ---
SHERIRE met with pt's daughter in room. Nurse in room as well. Pt was sleeping at this time. Pt lives at home with her . Pt uses a walker at home. Daughter stated she bathed her on Tuesday and spoke to her Tuesday and she was doing well. She was surprised pt had to come to hospital. Pt does not wear home oxygen. Pt is current with [facility]. SW and pt's daughter spoke about discharge planning. The goal is for pt to return home with [facility]. Daughter did state if she is here for awhile, she may end up needing rehab. Pt has been to the [facility] in past. Daughter does feel once pt eats and rests a little she will perk up and be able to return home. SHERRIE did explain the medicare guidelines and 3 day inpt stay. SHERRIE also advised daughter that [facility] has been full recently and with the weekend coming up it may be tough to get her in. Daughter would like to see how she does today and re-evaluate tomorrow in regards to HH or SNF. Daughter also asked about HCPOA paperwork. Pt completed it at [facility] to see if we have it scanned in. SHERRIE checked system for HCPOA and we do not have it scanned in. SHERRIE let daughter know and she will bring in a copy. SHERRIE to see if [facility] will have any availability over the weekend.
[2024-07-12] MEDS: FUROSEMIDE 40 MG/4 ML VIAL IVP ×2 (11:56→21:15)
[2024-07-12 12:02] LABS: Glucometer 138 mg/dL (74-106)
[2024-07-12 12:33] LABS: Troponin I High Sensitivity 64.1 pg/mL (4.0-51.3)
--- NOTE | 2024-07-12 12:58 | SWNOTE1 ---
[facility] can not say for sure if they will have an opening, but would review if pt does agree to SNF.
[2024-07-12 15:05] LABS: Internal Control Within Normal Limits; Respiratory Syncytial Virus Not Detected (NOT DETECTE)
[2024-07-12 15:25] LABS: Glucometer 106 mg/dL (74-106)
--- NOTE | 2024-07-12 15:45 | XR_ITS ---
[address] [address] Patient Name: NADIA COOLEY MRN: [id number] date: 1945 Sex: F Assigned Patient Location: [place] Current Patient Location: [place] Accession/Order Number: [id number] Exam Date: 07/12/2024 15:40 Report Date: 07/12/2024 15:58 At the request of: ROBERT JACKSON Procedure: XR chest 1V EXAM: XR chest 1V HISTORY: cough, wheezing COMPARISON: 07/12/2024 TECHNIQUE: AP portable erect FINDINGS: LUNGS: Low lung volumes. The lungs are clear VASCULATURE: No increased pulmonary vasculature. PLEURA: No pneumothorax, effusion, or pleural thickening. CARDIAC: No cardiomegaly or cardiac silhouette abnormality. MEDIASTINUM: No visible mass or adenopathy. Aortic atherosclerosis BONES: No fracture or visible bone lesion. OTHER: Negative. XR/XR chest 1V IMPRESSION: Low lung volumes, clear lungs Electronically authenticated by: MALACHI HATFIELD Date: 07/12/2024 15:58
[2024-07-12] MEDS: AZITHROMYCIN 500 MG in 0.9 % SODIUM CHLORIDE 250 ML 250 MG IV (17:07)
[2024-07-12 21:04] LABS: Glucometer 127 mg/dL (74-106)
[2024-07-12] MEDS: ATORVASTATIN CALCIUM 10 MG TABLET PO (21:15)
[2024-07-12] MEDS: CARVEDILOL 3.125 MG TABLET PO (21:15)
[2024-07-12] MEDS: INSULIN ASPART 300 UNIT/3 ML PEN SUBQ (21:24)
[2024-07-13] VITALS (23 sets, daily range): BP systolic 102–149; BP diastolic 63–78; PULSE 60–256; TEMP 36.5–37.7; O2SAT 91–95; BMI 32.4
[2024-07-13] MEDS: CEFTRIAXONE 1,000 MG in 0.9 % SODIUM CHLORIDE 50 ML 100 MG IV (05:05)
[2024-07-13] MEDS: LEVOTHYROXINE SODIUM 25 MCG TABLET 50 MCG PO (05:34)
[2024-07-13] MEDS: HYDROCODONE/ACET 5-325 MG TABLET 1 TAB PO ×2 (05:52→17:26)
[2024-07-13 06:26] LABS: Basophils Percent Auto 0.4 % (0.2-2.0); Eosinophils Percent Auto 0.6 % (0.9-7.0); Hematocrit 39.5 % (36.0-48.0); Hemoglobin 12.1 g/dL (12.0-16.0); Immature Granulocytes Abs Auto 0.01 10^3/uL (0.00-0.03); Immature Granulocytes Pct Auto 0.2 % (0.0-0.5); Lymphocytes Percent Auto 20.7 % (20.5-60.0); Mean Corpuscular HGB Conc 30.6 g/dL (29.9-35.2); Mean Corpuscular Hemoglobin 28.5 pg (26.7-34.0); Mean Corpuscular Volume 93.2 fL (81.0-99.0); Mean Platelet Volume 9.3 fL (9.5-13.5); Monocytes Absolute Auto 0.5 10^3/uL (0.3-0.8); Monocytes Percent Auto 10.4 % (1.7-12.0); Neutrophils Absolute Auto 3.4 10^3/uL (1.4-6.5); Neutrophils Percent Auto 67.7 % (43.0-75.0); Platelet Count 169 10^3/uL (150-450); Red Blood Count 4.24 10^6/uL (4.20-5.40); Red Cell Distribution Width 13.8 % (11.0-15.0)
[2024-07-13 06:49] LABS: Alanine Aminotransferase 13 U/L (14-59); Albumin Globulin Ratio 0.8; Albumin Level 3.2 g/dL (3.4-5.0); Alkaline Phosphatase 88 U/L (46-116); Anion Gap 10.5; Aspartate Amino Transferase 41 U/L (15-37); BUN Creatinine Ratio 13.1; Bilirubin Total 0.4 mg/dL (0.2-1.0); Calcium 8.7 mg/dL (8.5-10.1); Carbon Dioxide 34.2 mmol/L (21.0-32.0); Chloride 102 mmol/L (98-107); Estimated GFR (African America 31 (>=60 mL/min/1.73m^2); Estimated GFR (Non-African Ame 25 (>=60 mL/min/1.73m^2); Globulin 3.9 g/dL; Glucose 138 mg/dL (74-106); Potassium 3.7 mmol/L (3.5-5.1); Sodium 143 mmol/L (136-145); Total Protein 7.1 g/dL (6.4-8.2)
--- NOTE | 2024-07-13 06:58 | PC.NURSE ---
loose soft stool
[2024-07-13 08:16] LABS: Glucometer 139 mg/dL (74-106)
--- NOTE | 2024-07-13 08:20 | P.PN_ITS ---
Progress Note: Subjective Subjective Interval history: Overall patient is improving today. She is much more alert. She is sitting up in chair today and participated with PT. She denies any complaints other than a dry cough. She has not used her OPEP. Daughter at bedside and updated on labs and plan of care. Updated both on normal renal ultrasound, repeat chest X-ray still shows no acute signs and Echo is at baseline. Exam Narrative Exam Narrative: General: Patient is alert, and oriented to person, place and time with normal affect, proper hygiene Skin: no visible rashes, or ulcers Head: atraumatic, acephalic Eyes: PERRLA, no nystagmus present, conjunctiva clear, no scleral icterus Ears: normal gross auditory acuity Neck: no masses palpated, normal thyroid Heart: Normal rate and rhythm, no murmurs/rubs/gallops Lungs: audible crackles and diminished breath sounds all lung martinez Abdomen: Normal audible bowel sounds, distension, No palpable masses, suprapubic tenderness Musculoskeletal: 1+ swelling bilateral lower extremities Neuro: CN II-X grossly intact Constitutional Vital Signs, click to edit/add: Last Vital Signs Temp 97.7 F 07/13/24 04:00 Pulse 256 H 07/13/24 06:35 Resp 18 07/13/24 04:00 BP 149/78 H 07/13/24 04:00 Pulse Ox 92 L 07/13/24 04:00 O2 Del Method Nasal Cannula 07/13/24 04:00 O2 Flow Rate 3 07/13/24 04:00 Progress Note: Objective Labs Labs: Short CBC 07/13/24 Range/Units 06:08 WBC 5.0 (4.0-11.0) 10^3/uL Hgb 12.1 (12.0-16.0) g/dL Hct 39.5 (36.0-48.0) % Plt Count 169 (150-450) 10^3/uL BMP 07/13/24 06:08 Sodium 143 Potassium 3.7 Chloride 102 Carbon Dioxide 34.2 H BUN 25.0 H Creatinine 1.91 H Glucose 138 H Calcium 8.7 Cardiac Enzymes 07/12/24 Range/Units 06:25 Total Creatine Kinase 257 H (26-192) U/L Liver Function 07/13/24 Range/Units 06:08 Total Bilirubin 0.4 (0.2-1.0) mg/dL AST 41 H (15-37) U/L ALT 13 L (14-59) U/L Alkaline Phosphatase 88 (46-116) U/L Albumin 3.2 L (3.4-5.0) g/dL Progress Note: A&P Assessment and Plan (1) Urinary tract infection: Assessment and Plan: Continue rocephin daily, monitor renal function; Ultrasound bladder and kidneys no acute findings, awaiting Urine culture, prior was Ecoli, WBC's 5.0 today Qualifiers: Hematuria presence: without hematuria Urinary tract infection type: acute cystitis Qualified Code(s): N30.00 - Acute cystitis without hematuria (2) Acute renal failure: Assessment and Plan: follows with metal treater, Baseline 1.35, GFR 29, slight increase with extra lasix dose yesterday, I have stopped BID dosing and placed back on home lasix 40mg daily Qualifiers: Acute renal failure type: unspecified Qualified Code(s): N17.9 - Acute kidney failure, unspecified (3) NSTEMI (non-ST elevated myocardial infarction): Assessment and Plan: trop trending down. Most likely type 2 NSTEMI secondary to renal impairment, continue to trend. No concerning EKG with ST elevations or depressions, no chest pain but shortness of breath. Also in acute CHF. Cardiology consult, no one available yesterday. Echocardiogram stable. (4) Acute on chronic diastolic CHF (congestive heart failure): Assessment and Plan: monitor strict I&O's, fluid restriction to 1.5L and low sodium diet. continue coreg and lasix (5) Acute respiratory failure with hypoxia: Assessment and Plan: secondary to #4, currently on 2L NC oxygen. Chest X-ray was negative but sounds of fluid overload on exam. continue lasix. OPEP and PRN nebs (6) Generalized weakness: Assessment and Plan: PT/OT (7) Diabetes: Assessment and Plan: hold metformin, monitor accuchecks, SSI as needed Qualifiers: Chronic kidney disease stage: unspecified stage Diabetes mellitus complication detail: with chronic kidney disease Diabetes mellitus complication status: with kidney complications Diabetes mellitus fdc insulin use: without long term care administrator use Diabetes mellitus type: type 2 Qualified Code(s): E11.22 - Type 2 diabetes mellitus with diabetic chronic kidney disease (8) Essential tremor: Assessment and Plan: continue home meds (9) Hyperlipidemia associated with type 2 diabetes mellitus: Assessment and Plan: continue atorvastatin (10) Insomnia: Assessment and Plan: resume trazodone since more alert today Qualifiers: Insomnia type: primary Qualified Code(s): F51.01 - Primary insomnia (11) Hypothyroidism: Assessment and Plan: continue levothyroxine Qualifiers: Hypothyroidism type: unspecified Qualified Code(s): E03.9 - Hypothyroidism, unspecified (12) Fibromyalgia: Assessment and Plan: resume home meds (13) Anemia in chronic kidney disease: Assessment and Plan: continue iron replacement Qualifiers: Chronic kidney disease stage: stage 4 (GFR 15-29) Qualified Code(s): N1 8.4 - Chronic kidney disease, stage 4 (severe); D63.1 - Anemia in chronic kidney disease Plan Patient is a full code Heparin for DVT prophylaxis Continues to improve expect 1-2 more days of hospital necessary care. Urinary Catheter Management Urinary Catheter Management Urethral: Cath placed during this visit: no
[2024-07-13] MEDS: ASPIRIN 81 MG TABLET.DR PO (09:39)
[2024-07-13] MEDS: MAGNESIUM OXIDE 400 MG TABLET PO (09:39)
[2024-07-13] MEDS: CARVEDILOL 3.125 MG TABLET PO ×2 (09:39→21:06)
[2024-07-13] MEDS: FERROUS SULFATE 325 MG TABLET PO (09:40)
[2024-07-13] MEDS: POTASSIUM CHLORIDE 10 MEQ ER TABLET PO ×2 (09:40→21:07)
[2024-07-13] MEDS: HEPARIN SODIUM (PORCINE) 5,000 UNIT/ML VIAL 5000 UNIT SUBQ ×2 (09:40→21:06)
[2024-07-13] MEDS: FUROSEMIDE 40 MG TABLET PO (09:40)
[2024-07-13] MEDS: CHOLECALCIFEROL (VITAMIN D3) 125 MCG/5,000 UNIT TABLET PO (09:45)
--- NOTE | 2024-07-13 10:30 | CM.NOTE ---
Rounds made with Dr. De Leon, no discharge today. Pt is more awake today and able to get to chair with PT. Discussed with pt and daughter regarding skilled therapy at discharge. Daughter and pt would like to talk and then will let SW or Case Management know their decision.
[2024-07-13] MEDS: ALBUTEROL SULFATE 2.5 MG/3 ML VIAL NEB IH (10:47)
--- NOTE | 2024-07-13 10:55 | PT.DAILY ---
Physical Therapy Daily Note PT Daily Note/Assess Start: 07/12/24 09:00 Freq: Status: Active Protocol: Document 07/13/24 10:50 SHARON (Rec: 07/13/24 10:55 SHARON [id number]) Physical Therapy Daily Note/Assessment Time In/Time Out Time In 10:10 Time Out 10:30 Pain In Pain N/A Pain Out Pain N/A Subjective Subjective Pt supine upon arrival. Just got off of bed randall with nursing program director. Agreeable to PT. Daughter present throughout session. Pt c/o of feeling shaky this morning. Therapeutic Exercise Time Therapeutic Exercise 6 Minutes (minutes) Therapeutic Exercise 0 Units Therapeutic Exercise Treatment Therapeutic Exercise Seated bilat LE strengthening ex complete 10x ea while Treatment sitting in BS chair with occ vc and tactile cues to stay on task and for proper form. Therapeutic Activity Time Therapeutic Activity 8 Minutes (minutes) Therapeutic Activity 1 Units Therapeutic Activity Treatment Bed Mobility Ability Maximum Assist Chair Transfer Contact Guard Assist,Minimum Assist,1 Person Assist Ability Therapeutic Activity Pt performs supine>sit transfer while needing maxA to Comments advance upper body to sit EOB. Able to sit EOB with bilat UE support to maintain upright static seated balance. Pt sit>stand with Helene+1 and CGA+1. Stand pivot to BS chair while taking 3 side steps and 2 retro steps Helene. remains in BS chair with case investigator and daughter present. Call light is within reach and chair alarm is activated. Total Physical Therapy Time Total Therapy 14 Minutes Total Physical 1 Therapy Units Summary Daily Note Summary Cont to require heavy assistance for bed mobility for supine>sit transfer. Less assistance required for standing transfer. Pt more steady with side stepping and more cooperative with sitting in chair. Would cont to recommend SNF at this time unless significant improvement is made.
[2024-07-13] MEDS: ACETAMINOPHEN 325 MG TABLET 650 MG PO ×2 (11:01→21:07)
[2024-07-13 11:21] LABS: Glucometer 132 mg/dL (74-106)
--- NOTE | 2024-07-13 12:37 | SWNOTE1 ---
SW stopped in and spoke with pt and daughter in room. Pt was sitting in chair and attempted to work with therapy. Per the daughter therapy is coming back this afternoon to try to walk her. Pt and daughter in agreement to have SW reach out to [facility] to see if they have an open bed if pt is not able to return home. SW to reach out. [facility] would have an opening for weekend if pt needs. Referral sent to [facility]. Referral included face sheet, ED note, H&P, provider notes, case management report, nursing notes, diagnostic imaging, med list, and PT/OT notes.
--- NOTE | 2024-07-13 13:17 | SWNOTE1 ---
Both pt and daughter did state if [facility] does not have a bed then she will go home and resume Lisa MONTALVO.
--- NOTE | 2024-07-13 15:28 | DIETREC ---
Recommend Heart Healthy diet (includes 2-gram sodium restriction) d/t dx/hx CHF, NC. Text to Dr. Katarina DeL eon.
[2024-07-13] MEDS: AZITHROMYCIN 500 MG in 0.9 % SODIUM CHLORIDE 250 ML 250 MG IV (15:36)
--- NOTE | 2024-07-13 15:37 | OT.DAILY ---
Occupational Therapy Daily Note OT Inpatient Daily Visit Note Start: 07/12/24 09:22 Freq: Status: Active Protocol: Document 07/13/24 15:28 [id number] (Rec: 07/13/24 15:37 [id number]) OT Visit Details Time In/Time Out Time In 15:02 Time Out 15:25 OT Treatment Plan Subjective Subjective Pt awake and alert in bed. Pt verbalizes concerns for SNF due to limited mobility and generalized weakness. Agreeable to self care tasks at this time. Objective Objective Pt completed supine to sit Mod A due to weakness. STS transfer to walker with Min A. 2-4 VCs for safety techniques. Standing tolerance of 8x mins in room. With set up of supplies Pt was able to was face and hair. Required extended time to complete task. Minimal SOB. Ambulated back to bed. 3-5 cues for safety when sitting on bed. Combed hair appropriate, required 1x break due to SOB. Mod A sit to supine. Assessment Assessment Pt agreeable and cooperative. Understands role of therapy. Pt is wanting to get stronger and return home. Pt left in bed, call light within reach. Continue OT POC. JOURNEYMAN PATTERNMAKER in room to maintain safety while standing, using gait belt. OT Stationary Steam Engineer Timed Codes Therapeutic activity 10 minutes (minutes) Therapeutic activity 1 units Self-Correction 13 Management minutes ( minutes) Self-Correction 1 Management units
--- NOTE | 2024-07-13 15:47 | SWNOTE1 ---
SW spoke to [facility] and they are able to accept. SHERRIE spoke to daughter to let her know. Daughter would like to know how pt did with therapy this afternoon. SW to call daughter back. SW stopped in room and PT/OT were in room. Pt did a little better and walked to bathroom doorway and stood for several minutes. Still recommendation of SNF. SHERRIE called daughter back to let her know. She stated pt will have to prove she can return home and that she is off work until Tuesday and can assist at home and that she is hopeful pt can return home. SHERRIE also spoke to the patient and let her know what daughter said. Pt did become teary-eyed and let SW know that she does not feel she can return home as she feels weaker than normal. SW did let pt know that the [facility] has accepted her for rehab and she does have that option. At this time pt is leaning towards rehab at [facility]. SW has everything set for pt to go to [facility]. Nurse is aware as well.
--- NOTE | 2024-07-13 15:57 | PT.DAILY ---
Physical Therapy Daily Note PT Daily Note/Assess Start: 07/12/24 09:00 Freq: Status: Active Protocol: Document 07/13/24 15:47 SHARON (Rec: 07/13/24 15:57 SHARON [id number]) Physical Therapy Daily Note/Assessment Time In/Time Out Time In 15:00 Time Out 15:23 Pain In Pain N/A Pain Out Pain N/A Subjective Subjective Assisted OT with PM treatment. NO charge for PT visit this afternoon. Therapeutic Activity Time Therapeutic Activity 8 Minutes (minutes) Therapeutic Activity 0 Units Therapeutic Activity Treatment Bed Mobility Ability Moderate Assist Chair Transfer Contact Guard Assist Ability Therapeutic Activity Supine>sit ModA to advance upper body and shift hips to Comments EOB. Pt sits EOB unsupported without LOB. Pt sit>stand CGA for safety. Pt amb 12' with RW, CGA. Static standing 8 min while washes face, hands and hair with FREEMAN. CGA for safety throughout. Pt able to negotate RW to turn around and amb back to bed. Sit>supine ModA. Total assist to scoot her up in bed. remains supine with call light in reach and needs met. Total Physical Therapy Time Total Therapy 8 Minutes Total Physical 0 Therapy Units Summary Daily Note Summary Improved functional mobility/transfers this afternoon - able to amb 12' x 2 CGA. Would cont to recommend SNF. Will follow up tomorrow morning.
[2024-07-13] MEDS: INSULIN ASPART 300 UNIT/3 ML PEN SUBQ (16:32)
[2024-07-13 16:34] LABS: Glucometer 177 mg/dL (74-106)
--- NOTE | 2024-07-13 17:30 | P.CACN_ITS ---
History of Present Illness History of Present Illness Consult date: 07/13/24 Requesting physician: Nava De Leon Chief complaint: WEAKNESS,SOB,UTI,FEVER, mildly elevated troponin Narrative: The patient 79-year-old female with prior history of mild coronary artery di sease provide a catheterization in 2010, history of cardiomyopathy with good recovery of systolic function, hypertension, hyperlipidemia, diabetes mellitus, chronic kidney disease, and venous insufficiency Patient presented to the hospital with 2-day history of feeling weak, having fever and cough. She was hypoxic with O2 saturation 80% on 2 L/min. Her temperature was elevated at 101 in the ED. The patient reports that her was sick and he was on antibiotics for respiratory infection and she became sick after. She feels much better now. She is currently on oxygen at 1 to 2 L/min p er nasal cannula. She is not usually on oxygen at home. High sensitivity troponin came back to be mildly elevated 68, 73, 73, 64. BNP 1856 with normal less than 1800 presence of creatinine 1.9 and GFR 31 EKG showed sinus tachycardia with ST-T changes in 1 and aVL and poor R progression, no change from previous EKG March 2024. Limited echo with performed on 07/12/2024 which showed normal left ventricle systolic function without wall motion abnormalities, ejection fraction 65% Chest x-ray was normal Review of Systems ROS Narrative All systems were reviewed and they were negative except for the positive findings noted above in the history [facility] Medical History (Updated 07/12/24 @ 11:16 by Nava De Leon, DO) Fibromyalgia ?M79.7 - Fibromyalgia (ICD-10) CKD (chronic kidney disease), stage III ?N18.30 - Chronic kidney disease, stage 3 unspecified (ICD-10) CHF (congestive heart failure) ?I50.9 - Heart failure, unspecified (ICD-10) Hypothyroidism ?E03.9 - Hypothyroidism, unspecified (ICD-10) Hyperlipidemia associated with type 2 diabetes mellitus ?E11.69 - Type 2 diabetes mellitus with other specified complication (ICD-10) ?E78.5 - Hyperlipidemia, unspecified (ICD-10) Diabetes ?E11.9 - Type 2 diabetes mellitus without complications (ICD-10) Essential tremor ?G25.0 - Essential tremor (ICD-10) Heart attack ?I21.9 - Acute myocardial infarction, unspecified (ICD-10) Surgical History H/O knee surgery ?Z98.890 - Other specified postprocedural states (ICD-10) Social History Smoking status: Never smoker Highest level of school completed/degree received: high school graduate Little interest or pleasure in doing things: not at all Feeling down, depressed, or hopeless: not at all Meds Home Medications and Allergies Home Medications ?Medication ?Instructions ?Recorded ?Confirmed ?Type cephalexin 500 mg capsule 500 mg PO Q12H 7 days #14 caps 03/14/23 Rx aspirin 81 mg tablet,delayed 81 mg PO DAILY 07/12/24 07/12/24 History release (Adult Aspirin Regimen) atorvastatin 10 mg tablet 10 mg PO .qd 07/12/24 07/12/24 History carvedilol 3.125 mg tablet 3.125 mg PO Q12H 07/12/24 07/12/24 History cholecalciferol (vitamin D3) 125 5,000 unit PO .COMPLEX 07/12/24 07/12/24 History mcg (5,000 unit) tablet docusate calcium 240 mg capsule 240 mg PO .COMPLEX PRN constipation 07/12/24 07/12/24 History ferrous sulfate 325 mg (65 mg 325 mg PO DAILY 07/12/24 07/12/24 History iron) tablet (FeroSul) furosemide 40 mg tablet 40 mg PO .qd 07/12/24 07/12/24 History hydrocodone 5 mg-acetaminophen 325 1 tab PO Q12H PRN pain 07/12/24 07/12/24 History mg tablet levothyroxine 50 mcg tablet 50 mcg PO .qd 07/12/24 07/12/24 History magnesium glycinate 100 mg (as 400 mg PO DAILY 07/12/24 07/12/24 History glycinate) tablet (Mag Glycinate) metformin 500 mg tablet 500 mg PO BID 07/12/24 07/12/24 History mirabegron 50 mg tablet,extended 50 mg PO DAILY 07/12/24 07/12/24 History release 24 hr (Myrbetriq) potassium chloride 10 mEq 10 meq PO BID 07/12/24 07/12/24 History tablet,extended release pregabalin 100 mg capsule 100 mg PO BID 07/12/24 07/12/24 History ropinirole 2 mg tablet 2 mg PO QPM 07/12/24 07/12/24 History trazodone 100 mg tablet 100 mg PO .qhs 07/12/24 07/12/24 History Allergies Allergy/AdvReac Type Severity Reaction Status Date / Time butorphanol (From Stadol) Allergy Severe Verified 03/14/23 13:59 sulfamethoxazole (From Allergy Severe Verified 04/03/23 15:13 Bactrim) trimethoprim (From Bactrim) Allergy Severe Verified 04/03/23 15:13 Exam Narrative Exam Narrative: Patient is sitting in the chair and she has oxygen on 2 L/min. She appears to be alert oriented not in apparent distress HEENT within normal limits Neck: Supple normal range of motion no lymphadenopathies, no carotid bruit, jugular venous pressure is normal Lungs: Clear to auscultation with generalized decreased breath sounds, no rales rhonchi or wheezes Cardiovascular system: Regular rate and rhythm, normal S1 and S2, no gallop or murmur or click Extremities: No edema or cyanosis or clubbing Abdomen soft benign organomegaly or tenderness Neurological examination grossly normal Constitutional Vital Signs, click to edit/add: Last Vital Signs Temp 97.9 F 07/13/24 16:00 Pulse 77 07/13/24 16:00 Resp 16 07/13/24 16:00 BP 102/65 07/13/24 16:00 Pulse Ox 92 L 07/13/24 16:00 O2 Del Method Nasal Cannula 07/13/24 16:00 O2 Flow Rate 2 07/13/24 16:00 Results Labs and Meds Lab results: Cardiac Enzymes 07/13/24 Range/Units 06:08 AST 41 H (15-37) U/L CBC 07/13/24 Range/Units 06:08 WBC 5.0 (4.0-11.0) 10^3/uL RBC 4.24 (4.20-5.40) 10^6/uL Hgb 12.1 (12.0-16.0) g/dL Hct 39.5 (36.0-48.0) % Plt Count 169 (150-450) 10^3/uL Neut # (Auto) 3.4 (1.4-6.5) 10^3/uL Lymph # (Auto) 1.0 L (1.2-3.8) 10^3/uL [place] # (Auto) 0.5 (0.3-0.8) 10^3/uL Eos # (Auto) 0.0 (0.0-0.7) 10^3/uL Baso # (Auto) 0.0 (0.0-0.1) 10^3/uL Comprehensive Metabolic Panel 07/13/24 Range/Units 06:08 Sodium 143 (136-145) mmol/L Potassium 3.7 (3.5-5.1) mmol/L Chloride 102 (98-107) mmol/L Carbon Dioxide 34.2 H (21.0-32.0) mmol/L BUN 25.0 H (7.0-18.0) mg/dL Creatinine 1.91 H (0.55-1.02) mg/dL Glucose 138 H (74-106) mg/dL Calcium 8.7 (8.5-10.1) mg/dL AST 41 H (15-37) U/L ALT 13 L (14-59) U/L Alkaline Phosphatase 88 (46-116) U/L Total Protein 7.1 (6.4-8.2) g/dL Albumin 3.2 L (3.4-5.0) g/dL Intake and Output 07/13/24 07/13/24 07/13/24 07:59 15:59 23:59 Intake Total 600 / 1470 200 / 450 250 / 450 Output Total 1500 / 2650 Balance -900 / -1180 200 / 450 250 / 450 Intake: Oral 550 / 1170 200 / 200 IV 50 / 300 250 / 250 Azithromycin 500 mg In 0.9 % 250 / 250 Sodium Chloride 250 ml @ 250 mls/hr IV Q24H [facility] Rx#:[id number] Ceftriaxone 1,000 mg In 0.9 % 50 / 50 Sodium Chloride 50 ml @ 100 mls /hr IV Q24H [facility]IL[facility] Rx#:[id number] Output: Urine Amount (Catheter) 1500 / 2650 Urethral 1500 / 2650 Other: # Bowel Movements 1 # Incontinent Bowel Movements 1 Assessment and Plan Assessment and Plan (1) NSTEMI (non-ST elevated myocardial infarction): Assessment and Plan: Type II due to combination of hypoxia and renal insufficiency, in addition the elevation of the high-sensitivity troponin is very mild particularly in the light of chronic renal insufficiency. Her echo showed normal left ventricle systolic function without wall motion abnormalities (2) Acute respiratory failure with hypoxia: Assessment and Plan: I think it is due to viral ENT/respiratory: Infection. There is no indication that the patient has acute heart failure. The slight elevation of BNP is due to underlying renal sufficiency. Her chest x-ray is normal and her echo showed normal left ventricle systolic function (3) Urinary tract infection: Qualifiers: Hematuria presence: without hematuria Urinary tract infection type: acute cystitis Qualified Code(s): N30.00 - Acute cystitis without hematuria (4) Acute renal failure: Qualifiers: Acute renal failure type: unspecified Qualified Code(s): N17.9 - Acute kidney failure, unspecified (5) Generalized weakness: (6) Diabetes: Qualifiers: Diabetes mellitus type: type 2 Diabetes mellitus long term care social worker insulin use: without long term care social worker use Diabetes mellitus complication status: with kidney complications Diabetes mellitus complication detail: with chronic kidney disease Chronic kidney disease stage: unspecified stage Qualified Code(s): E11.22 - Type 2 diabetes mellitus with diabetic chronic kidney disease (7) Essential tremor: (8) Hyperlipidemia associated with type 2 diabetes mellitus: (9) Insomnia: Qualifiers: Insomnia type: primary Qualified Code(s): F51.01 - Primary insomnia (10) Hypothyroidism: Qualifiers: Hypothyroidism type: unspecified Qualified Code(s): E03.9 - Hypothyroidism, unspecified (11) Fibromyalgia: (12) Anemia in chronic kidney disease: Qualifiers: Chronic kidney disease stage: stage 4 (GFR 15-29) Qualified Code(s): N18.4 - Chronic kidney disease, stage 4 (severe); D63.1 - Anemia in chronic kidney disease Plan As mentioned above I do not think the patient respiratory failure with hypoxia is due to heart failure. It is most likely due to viral respiratory infection. Her BNP is borderline elevated in presence of chronic renal insufficiency. Chest x-ray was normal and echo showed normal left ventricular systolic function The slight elevation of high-sensitivity troponin is probably chronic and its due to combination of hypoxia and chronic renal insufficiency. Does not represent acute coronary syndrome. The patient has no chest pain. No EKG changes. No wall motion abnormalities on the echo. Therefore I do not think that patient needs any further cardiac workup Should continue current medications. Follow-up with her band teacher as outpatient Dr Wei in about 1 month or so
[2024-07-13 20:26] LABS: Glucometer 111 mg/dL (74-106)
[2024-07-13] MEDS: ROPINIROLE HCL 1 MG TABLET 2 MG PO (21:06)
[2024-07-13] MEDS: PREGABALIN 75 MG CAPSULE PO (21:06)
[2024-07-13] MEDS: TRAZODONE HCL 50 MG TABLET 100 MG PO (21:06)
[2024-07-13] MEDS: ATORVASTATIN CALCIUM 10 MG TABLET PO (21:07)
[2024-07-14] VITALS (22 sets, daily range): BP systolic 110–140; BP diastolic 65–76; PULSE 71–81; TEMP 36.4–36.9; O2SAT 84–97
[2024-07-14] MEDS: ACETAMINOPHEN 325 MG TABLET 650 MG PO ×2 (02:45→22:05)
[2024-07-14] MEDS: CEFTRIAXONE 1,000 MG in 0.9 % SODIUM CHLORIDE 50 ML 100 MG IV (04:00)
[2024-07-14] MEDS: LEVOTHYROXINE SODIUM 25 MCG TABLET 50 MCG PO (05:38)
[2024-07-14] MEDS: HYDROCODONE/ACET 5-325 MG TABLET 1 TAB PO ×2 (05:39→16:19)
[2024-07-14 06:06] LABS: Basophils Percent Auto 0.6 % (0.2-2.0); Eosinophils Absolute Auto 0.1 10^3/uL (0.0-0.7); Eosinophils Percent Auto 2.3 % (0.9-7.0); Hematocrit 35.7 % (36.0-48.0); Hemoglobin 11.1 g/dL (12.0-16.0); Lymphocytes Absolute Auto 1.3 10^3/uL (1.2-3.8); Lymphocytes Percent Auto 37.4 % (20.5-60.0); Mean Corpuscular HGB Conc 31.1 g/dL (29.9-35.2); Mean Corpuscular Hemoglobin 28.7 pg (26.7-34.0); Mean Corpuscular Volume 92.2 fL (81.0-99.0); Mean Platelet Volume 9.3 fL (9.5-13.5); Monocytes Absolute Auto 0.4 10^3/uL (0.3-0.8); Monocytes Percent Auto 11.8 % (1.7-12.0); Neutrophils Absolute Auto 1.7 10^3/uL (1.4-6.5); Neutrophils Percent Auto 47.9 % (43.0-75.0); Platelet Count 161 10^3/uL (150-450); Red Blood Count 3.87 10^6/uL (4.20-5.40); Red Cell Distribution Width 13.5 % (11.0-15.0); White Blood Count 3.5 10^3/uL (4.0-11.0)
[2024-07-14 06:28] LABS: Alanine Aminotransferase 19 U/L (14-59); Albumin Globulin Ratio 0.8; Albumin Level 2.9 g/dL (3.4-5.0); Alkaline Phosphatase 80 U/L (46-116); Anion Gap 9.5; Aspartate Amino Transferase 41 U/L (15-37); BUN Creatinine Ratio 13.8; Bilirubin Total 0.3 mg/dL (0.2-1.0); Calcium 8.6 mg/dL (8.5-10.1); Chloride 103 mmol/L (98-107); Estimated GFR (African America 34 (>=60 mL/min/1.73m^2); Estimated GFR (Non-African Ame 28 (>=60 mL/min/1.73m^2); Globulin 3.7 g/dL; Glucose 130 mg/dL (74-106); Potassium 3.5 mmol/L (3.5-5.1); Sodium 141 mmol/L (136-145); Total Protein 6.6 g/dL (6.4-8.2)
--- NOTE | 2024-07-14 07:37 | PC.NURSE ---
0245 patient called out to see if he can have pain meds. Tylenol given. patient was asking for norco. Patient notified that she was unable to have norco till 5am. 0345 Patient up to use the BSC. Patient had a soft dark brown BM. Bed changed and patient cleaned up and returned to bed. Patient was able to transfer x2 with assist. 0520 patient asking for norco, states her pain is a 10/10 in her head. [place] provided. patient repositioned waer provided.
[2024-07-14 09:08] LABS: Troponin I High Sensitivity 18.6 pg/mL (4.0-51.3)
--- NOTE | 2024-07-14 09:52 | PT.DAILY ---
Physical Therapy Daily Note PT Daily Note/Assess Start: 07/12/24 09:00 Freq: Status: Active Protocol: Document 07/14/24 09:49 SHARON (Rec: 07/14/24 09:52 SHARON [id number]) Physical Therapy Daily Note/Assessment Time In/Time Out Time In 09:04 Time Out 09:20 Pain In Pain N/A Pain Out Pain N/A Subjective Subjective Supine upon arrival. Needs motivation for participation but finally agreeable. Therapeutic Activity Time Therapeutic Activity 12 Minutes (minutes) Therapeutic Activity 1 Units Therapeutic Activity Treatment Bed Mobility Ability Maximum Assist Chair Transfer Minimum Assist Ability Therapeutic Activity Supine>sit MAxA of 1 to advance lower body then upper Comments body to sit at EOB. Sits EOB 3 min unsupported without LOB. Pt sit>stand to RW Helene. Pt amb 20' around bed to chair with CGA/Helene, using RW. Pt static standing rest break as Dr. Mart enters room. Static standing 4 min without LOB CGA. Pt requires increased time and needs motivation to walk around bed. Very slow gi and step length noticed. remains in BS chair for breakfast. Call light is within reach and needs met. Total Physical Therapy Time Total Therapy 12 Minutes Total Physical 1 Therapy Units Summary Daily Note Summary Min increase in gait duration/distance but requires increased time on this date. Steady with static standing and sitting but CGA/Helene for dynamic gait. Would benefit from SNF to return to PLOF.
[2024-07-14] MEDS: FUROSEMIDE 40 MG TABLET PO (10:05)
[2024-07-14] MEDS: FERROUS SULFATE 325 MG TABLET PO (10:05)
[2024-07-14] MEDS: ASPIRIN 81 MG TABLET.DR PO (10:05)
[2024-07-14] MEDS: POTASSIUM CHLORIDE 10 MEQ ER TABLET PO ×2 (10:05→22:04)
[2024-07-14] MEDS: MAGNESIUM OXIDE 400 MG TABLET PO (10:05)
[2024-07-14] MEDS: CARVEDILOL 3.125 MG TABLET PO ×2 (10:05→22:05)
[2024-07-14] MEDS: DOCUSATE SODIUM 100 MG CAPSULE 200 MG PO (10:05)
[2024-07-14] MEDS: PREGABALIN 75 MG CAPSULE PO ×2 (10:06→22:04)
[2024-07-14] MEDS: HEPARIN SODIUM (PORCINE) 5,000 UNIT/ML VIAL 5000 UNIT SUBQ ×2 (10:06→22:04)
--- NOTE | 2024-07-14 10:39 | P.PN_ITS ---
Progress Note: Subjective Subjective Interval history: Patient up walking with staff, O2 in place Exam Constitutional Vital Signs, click to edit/add: Last Vital Signs Temp 98.3 F 07/14/24 09:05 Pulse 81 07/14/24 10:00 Resp 18 07/14/24 05:38 BP 124/76 07/14/24 09:05 Pulse Ox 91 L 07/14/24 10:29 O2 Del Method Nasal Cannula 07/14/24 10:29 O2 Flow Rate 1 07/14/24 10:29 Documenting provider has reviewed patient's vital signs: yes Common normals: no apparent distress Respiratory Common normals: normal respiratory effort and no retractions Auscultation: rhonchi Progress Note: Objective Labs Labs: Short CBC 07/14/24 Range/Units 05:55 WBC 3.5 L (4.0-11.0) 10^3/uL Hgb 11.1 L (12.0-16.0) g/dL Hct 35.7 L (36.0-48.0) % Plt Count 161 (150-450) 10^3/uL BMP 07/14/24 05:55 Sodium 141 Potassium 3.5 Chloride 103 Carbon Dioxide 32.0 BUN 24.0 H Creatinine 1.74 H Glucose 130 H Calcium 8.6 Liver Function 07/14/24 Range/Units 05:55 Total Bilirubin 0.3 (0.2-1.0) mg/dL AST 41 H (15-37) U/L ALT 19 (14-59) U/L Alkaline Phosphatase 80 (46-116) U/L Albumin 2.9 L (3.4-5.0) g/dL Progress Note: A&P Assessment and Plan (1) NSTEMI (non-ST elevated myocardial infarction): (2) Acute respiratory failure with hypoxia: (3) Urinary tract infection: Qualifiers: Hematuria presence: without hematuria Urinary tract infection type: acute cystitis Qualified Code(s): N30.00 - Acute cystitis without hematuria (4) Acute renal failure: Qualifiers: Acute renal failure type: unspecified Qualified Code(s): N17.9 - Acute kidney failure, unspecified (5) Generalized weakness: (6) Diabetes: Qualifiers: Chronic kidney disease stage: unspecified stage Diabetes mellitus complication detail: with chronic kidney disease Diabetes mellitus complication status: with kidney complications 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: without tank terminal gauger use Diabetes mellitus type: type 2 Qualified Code(s): E11.22 - Type 2 diabetes mellitus with diabetic chronic kidney disease (7) Essential tremor: (8) Hyperlipidemia associated with type 2 diabetes mellitus: (9) Insomnia: Qualifiers: Insomnia type: primary Qualified Code(s): F51.01 - Primary insomnia (10) Hypothyroidism: Qualifiers: Hypothyroidism type: unspecified Qualified Code(s): E03.9 - Hypothyroidism, unspecified (11) Fibromyalgia: (12) Anemia in chronic kidney disease: Qualifiers: Chronic kidney disease stage: stage 4 (GFR 15-29) Qualified Code(s): N18.4 - Chronic kidney disease, stage 4 (severe); D63.1 - Anemia in chronic kidney disease Plan Urinary tract infection: Acute UTI-culture pending, continue with current antibiotics as patient overall is improving Acute kidney injury: Baseline creatinine 1.32 admission creatinine of 1.91 incidence of 144.7% above baseline with decreased urine output make his stage I NSTEMI type II (non-ST elevated myocardial infarction): Continue to trend downward Acute on chronic diastolic CHF (congestive heart failure): BNP is better Acute respiratory failure with hypoxia:, Currently on 1 L, overall improving (6) Generalized weakness: Excellent rehabilitation candidate she is highly motivated, likely transfer to rehab tomorrow especially if they can be weaned off of supplemental oxygen Diabetes: Continue current treatment plan Essential tremor: Continue with current treatment plan Hyperlipidemia associated with type 2 diabetes mellitus: Continue current treatment plan Insomnia: Continue current treatment plan Hypothyroidism: Continue with plan Fibromyalgia: Continue with current treatment plan Anemia in chronic kidney disease: Stable Admission status: Patient with NSTEMI type II due to acute UTI, overall slowly improving but still hypoxia, medically necessary treatment will span 2 midnights. Inpatient status Urinary Catheter Management Urinary Catheter Management Urethral: Cath placed during this visit: no
[2024-07-14 12:00] LABS: Glucometer 168 mg/dL (74-106)
[2024-07-14] MEDS: GUAIFENESIN 600 MG TAB.ER.12H PO ×2 (12:34→22:05)
[2024-07-14 16:18] LABS: Glucometer 186 mg/dL (74-106)
[2024-07-14] MEDS: AZITHROMYCIN 500 MG in 0.9 % SODIUM CHLORIDE 250 ML 125 MG IV (16:19)
[2024-07-14 19:51] LABS: Glucometer 275 mg/dL (74-106)
[2024-07-14] MEDS: ROPINIROLE HCL 1 MG TABLET 2 MG PO (22:04)
[2024-07-14] MEDS: TRAZODONE HCL 50 MG TABLET 100 MG PO (22:05)
[2024-07-14] MEDS: ATORVASTATIN CALCIUM 10 MG TABLET PO (22:05)
[2024-07-14] MEDS: INSULIN ASPART 300 UNIT/3 ML PEN SUBQ (22:07)
[2024-07-15] VITALS (23 sets, daily range): BP systolic 96–127; BP diastolic 32–82; PULSE 62–82; TEMP 36.2–36.7; O2SAT 92–97
[2024-07-15] MEDS: LEVOTHYROXINE SODIUM 25 MCG TABLET 50 MCG PO (05:29)
[2024-07-15] MEDS: CEFTRIAXONE 1,000 MG in 0.9 % SODIUM CHLORIDE 50 ML 100 MG IV (05:29)
--- NOTE | 2024-07-15 06:17 | PC.NURSE ---
physician notified that patient refused morning labs
[2024-07-15 07:55] LABS: Glucometer 120 mg/dL (74-106)
[2024-07-15] MEDS: HYDROCODONE/ACET 5-325 MG TABLET 1 TAB PO ×2 (08:04→20:36)
--- NOTE | 2024-07-15 09:52 | XR_ITS ---
The [address] [address] Patient Name: NADIA COOLEY MRN: [id number] date: 1945 Sex: F Assigned Patient Location: [place] Current Patient Location: [place] Accession/Order Number: [id number] Exam Date: 07/15/2024 10:30 Report Date: 07/15/2024 11:37 At the request of: MARIETTA ROSS Procedure: XR chest 2V PA AND LATERAL CHEST; 07/15/2024 10:30 AM EST Clinical History:hypoxia Comparison: Frontal study 03/31/2023 . Osseous structures are grossly intact. Thoracic kyphosis is accentuated. No change cardiac and mediastinal silhouettes or elva. Mild linear atelectasis towards left base. No focal infiltrate. No pleural effusion or failure. Lung volumes are average. XR/XR chest 2V IMPRESSION: 1. No focal infiltrate. No pleural effusion or failure Electronically authenticated by: DARYL PARSONS Date: 07/15/2024 11:37
--- NOTE | 2024-07-15 09:52 | CT_ITS ---
The [place] [id number] Patient Name: NADIA COOLEY MRN: [id number] date: 1945 Sex: F Assigned Patient Location: [place] Current Patient Location: [place] Accession/Order Number: [id number] Exam Date: 07/15/2024 10:37 Report Date: 07/15/2024 11:29 At the request of: MARIETTA ROSS Procedure: CT head/brain wo con HEAD CT WITHOUT CONTRAST: 07/15/2024 10:37 AM EST Clinical Data: headache Comparison: 03/31/2023 Unenhanced axial data from base to vertex. INTRA-AXIAL: No acute hemorrhage. No acute infarction is evident. Again, mild periventricular white matter disease EXTRA-AXIAL: No acute hemorrhage. No focal fluid collection. BRAIN VOLUME: Unremarkable for age. VENTRICLES: No hydrocephalus PARANASAL SINUSES: No air-fluid levels in the included aspects. MASTOIDS: Clear. CALVARIUM: No acute finding. EXTRACALVARIAL: No acute findings CT/CT head/brain wo con IMPRESSION: 1. No evidence of acute intracranial process on this unenhanced study as described. All CT scans at this facility use dose modulation, iterative reconstruction, and/or weight based dosing when appropriate to reduce radiation dose to as low as reasonably achievable. Electronically authenticated by: DARYL PARSONS Date: 07/15/2024 11:29
--- NOTE | 2024-07-15 10:00 | P.PN_ITS ---
Progress Note: Subjective Subjective Interval history: Patient still with significant dyspnea, unable to wean supplemental oxygen over the last 2 to 3 days, some increasing cough as well, plan was to have go to rehab today but patient's condition not improved significantly enough to be able to do that safely Exam Constitutional Vital Signs, click to edit/add: Last Vital Signs Temp 97.6 F 07/15/24 08:38 Pulse 69 07/15/24 09:56 Resp 18 07/15/24 08:38 BP 119/82 07/15/24 08:38 Pulse Ox 93 L 07/15/24 08:38 O2 Del Method Nasal Cannula 07/15/24 08:38 O2 Flow Rate 2 07/15/24 08:38 Documenting provider has reviewed patient's vital signs: yes Common normals: apparent distress (Mild conversational dyspnea with cough throughout the evaluation) Respiratory Common normals: abnormal respiratory effort (mild conversational dyspnea with cough throughout the evaluation) Auscultation: rhonchi; no wheezes Cardio Common normals: regular rate and regular rhythm Extremity Common normals: abnormal to inspection (1+ edema) Progress Note: A&P Assessment and Plan (1) NSTEMI (non-ST elevated myocardial infarction): (2) Acute respiratory failure with hypoxia: (3) Urinary tract infection: Qualifiers: Hematuria presence: without hematuria Urinary tract infection type: acute cystitis Qualified Code(s): N30.00 - Acute cystitis without hematuria (4) Acute renal failure: Qualifiers: Acute renal failure type: unspecified Qualified Code(s): N17.9 - Acute kidney failure, unspecified (5) Generalized weakness: (6) Diabetes: Qualifiers: Chronic kidney disease stage: unspecified stage Diabetes mellitus complication detail: with chronic kidney disease Diabetes mellitus complication status: with kidney complications 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: without usp use Diabetes mellitus type: type 2 Qualified Code(s): E11.22 - Type 2 diabetes mellitus with diabetic chronic kidney disease (7) Essential tremor: (8) Hyperlipidemia associated with type 2 diabetes mellitus: (9) Insomnia: Qualifiers: Insomnia type: primary Qualified Code(s): F51.01 - Primary insomnia (10) Hypothyroidism: Qualifiers: Hypothyroidism type: unspecified Qualified Code(s): E03.9 - Hypothyroidism, unspecified (11) Fibromyalgia: (12) Anemia in chronic kidney disease: Qualifiers: Chronic kidney disease stage: stage 4 (GFR 15-29) Qualified Code(s): N18.4 - Chronic kidney disease, stage 4 (severe); D63.1 - Anemia in chronic kidney disease Plan Urinary tract infection: Acute UTI-culture pending, continue with current antibiotics as patient overall is improving, although white blood cell count is low today Acute kidney injury: Improved, closer to baseline NSTEMI type II (non-ST elevated myocardial infarction): Repeat labs due to increase in shortness of breath Acute on chronic diastolic CHF (congestive heart failure): BNP is better Acute respiratory failure with hypoxia:, Patient back up to 2 L, was on 1 L yesterday morning, checking chest x-ray changing antibiotics Generalized weakness: Excellent rehabilitation candidate she is highly motivated, likely transfer to rehab tomorrow especially if they can be weaned off of supplemental oxygen Diabetes: Continue current treatment plan, likely to get worse with addition of 1 dose of Decadron Essential tremor: Continue with current treatment plan Hyperlipidemia associated with type 2 diabetes mellitus: Continue current treatment plan Insomnia: Continue current treatment plan Hypothyroidism: Continue with plan Fibromyalgia: Continue with current treatment plan Anemia in chronic kidney disease: Stable, down slightly today Admission status: Patient with NSTEMI type II due to acute UTI, overall slowly improving but still hypoxia, medically necessary treatment will span 2 midnights. Inpatient status Urinary Catheter Management Urinary Catheter Management Urethral: Cath placed during this visit: no
[2024-07-15] MEDS: GUAIFENESIN 600 MG TAB.ER.12H PO ×2 (10:03→20:37)
[2024-07-15] MEDS: HEPARIN SODIUM (PORCINE) 5,000 UNIT/ML VIAL 5000 UNIT SUBQ ×2 (10:03→20:36)
[2024-07-15] MEDS: MAGNESIUM OXIDE 400 MG TABLET PO (10:03)
[2024-07-15] MEDS: FERROUS SULFATE 325 MG TABLET PO (10:04)
[2024-07-15] MEDS: PREGABALIN 75 MG CAPSULE PO ×2 (10:04→20:36)
[2024-07-15] MEDS: ASPIRIN 81 MG TABLET.DR PO (10:04)
[2024-07-15] MEDS: POTASSIUM CHLORIDE 10 MEQ ER TABLET PO ×2 (10:04→20:36)
[2024-07-15] MEDS: DOCUSATE SODIUM 100 MG CAPSULE 200 MG PO (10:04)
[2024-07-15] MEDS: FUROSEMIDE 40 MG TABLET PO (10:04)
[2024-07-15] MEDS: CARVEDILOL 3.125 MG TABLET PO ×2 (10:05→20:37)
[2024-07-15 10:16] LABS: Basophils Percent Auto 0.3 % (0.2-2.0); Eosinophils Absolute Auto 0.1 10^3/uL (0.0-0.7); Eosinophils Percent Auto 4.8 % (0.9-7.0); Hematocrit 34.8 % (36.0-48.0); Lymphocytes Absolute Auto 1.4 10^3/uL (1.2-3.8); Mean Corpuscular HGB Conc 31.6 g/dL (29.9-35.2); Mean Corpuscular Hemoglobin 29.1 pg (26.7-34.0); Mean Corpuscular Volume 92.1 fL (81.0-99.0); Mean Platelet Volume 9.3 fL (9.5-13.5); Monocytes Absolute Auto 0.3 10^3/uL (0.3-0.8); Monocytes Percent Auto 9.9 % (1.7-12.0); Neutrophils Absolute Auto 1.1 10^3/uL (1.4-6.5); Platelet Count 156 10^3/uL (150-450); Red Blood Count 3.78 10^6/uL (4.20-5.40); Red Cell Distribution Width 13.3 % (11.0-15.0); White Blood Count 2.9 10^3/uL (4.0-11.0)
[2024-07-15 10:32] LABS: Troponin I High Sensitivity 14.4 pg/mL (4.0-51.3)
[2024-07-15 10:39] LABS: Alanine Aminotransferase 15 U/L (14-59); Albumin Globulin Ratio 0.9; Albumin Level 2.8 g/dL (3.4-5.0); Alkaline Phosphatase 73 U/L (46-116); Anion Gap 7.9; Aspartate Amino Transferase 35 U/L (15-37); BUN Creatinine Ratio 11.9; Bilirubin Total 0.3 mg/dL (0.2-1.0); Calcium 8.5 mg/dL (8.5-10.1); Carbon Dioxide 34.1 mmol/L (21.0-32.0); Chloride 105 mmol/L (98-107); Estimated GFR (African America 40 (>=60 mL/min/1.73m^2); Estimated GFR (Non-African Ame 33 (>=60 mL/min/1.73m^2); Globulin 3.2 g/dL; Glucose 127 mg/dL (74-106); Magnesium 1.8 mg/dL (1.8-2.4); Sodium 143 mmol/L (136-145)
[2024-07-15] MEDS: BUTALB/ACETAMINOPHEN/CAFFEINE 50-325-40MG TABLET 1 TAB PO (11:42)
[2024-07-15] MEDS: DEXAMETHASONE SOD PHOS 4 MG/ML VIAL 10 MG IV (11:42)
[2024-07-15] MEDS: LEVOFLOXACIN 750 MG TABLET PO (11:42)
[2024-07-15 12:22] LABS: Glucometer 129 mg/dL (74-106)
[2024-07-15] MEDS: INSULIN ASPART 300 UNIT/3 ML PEN SUBQ ×2 (16:49→21:34)
[2024-07-15 16:59] LABS: Glucometer 279 mg/dL (74-106)
[2024-07-15 16:59] LABS: Glucometer 341 mg/dL (74-106)
[2024-07-15] MEDS: ATORVASTATIN CALCIUM 10 MG TABLET PO (21:28)
[2024-07-15] MEDS: ROPINIROLE HCL 1 MG TABLET 2 MG PO (21:29)
[2024-07-15] MEDS: TRAZODONE HCL 50 MG TABLET 100 MG PO (21:29)
[2024-07-15 21:33] LABS: Glucometer 303 mg/dL (74-106)
[2024-07-15] MEDS: ACETAMINOPHEN 325 MG TABLET 650 MG PO (23:08)
[2024-07-15] MEDS: IPRATROPIUM/ALBUTEROL SULFATE 3 ML AMPUL.NEB IH (23:11)
[2024-07-16] VITALS (8 sets, daily range): BP systolic 121–140; BP diastolic 74–77; PULSE 50–88; TEMP 36.6; O2SAT 91–96
[2024-07-16] MEDS: BUTALB/ACETAMINOPHEN/CAFFEINE 50-325-40MG TABLET 1 TAB PO (02:57)
[2024-07-16] MEDS: IPRATROPIUM/ALBUTEROL SULFATE 3 ML AMPUL.NEB IH (04:43)
[2024-07-16] MEDS: LEVOTHYROXINE SODIUM 25 MCG TABLET 50 MCG PO (05:33)
[2024-07-16 06:01] LABS: Basophils Percent Auto 0.3 % (0.2-2.0); Hematocrit 35.6 % (36.0-48.0); Hemoglobin 11.4 g/dL (12.0-16.0); Immature Granulocytes Abs Auto 0.01 10^3/uL (0.00-0.03); Immature Granulocytes Pct Auto 0.3 % (0.0-0.5); Lymphocytes Absolute Auto 1.1 10^3/uL (1.2-3.8); Lymphocytes Percent Auto 34.2 % (20.5-60.0); Mean Corpuscular Hemoglobin 29.1 pg (26.7-34.0); Mean Corpuscular Volume 90.8 fL (81.0-99.0); Mean Platelet Volume 9.7 fL (9.5-13.5); Monocytes Absolute Auto 0.3 10^3/uL (0.3-0.8); Monocytes Percent Auto 9.4 % (1.7-12.0); Neutrophils Absolute Auto 1.8 10^3/uL (1.4-6.5); Neutrophils Percent Auto 55.8 % (43.0-75.0); Platelet Count 180 10^3/uL (150-450); Red Blood Count 3.92 10^6/uL (4.20-5.40); Red Cell Distribution Width 12.9 % (11.0-15.0); White Blood Count 3.2 10^3/uL (4.0-11.0)
[2024-07-16 06:19] LABS: Alanine Aminotransferase 15 U/L (14-59); Albumin Globulin Ratio 0.8; Albumin Level 2.9 g/dL (3.4-5.0); Alkaline Phosphatase 78 U/L (46-116); Anion Gap 12.7; Aspartate Amino Transferase 37 U/L (15-37); BUN Creatinine Ratio 14.4; Bilirubin Total 0.3 mg/dL (0.2-1.0); Calcium 9.1 mg/dL (8.5-10.1); Carbon Dioxide 30.8 mmol/L (21.0-32.0); Chloride 101 mmol/L (98-107); Estimated GFR (African America 40 (>=60 mL/min/1.73m^2); Estimated GFR (Non-African Ame 33 (>=60 mL/min/1.73m^2); Globulin 3.6 g/dL; Glucose 224 mg/dL (74-106); Potassium 4.5 mmol/L (3.5-5.1); Sodium 140 mmol/L (136-145); Total Protein 6.5 g/dL (6.4-8.2)
--- NOTE | 2024-07-16 06:54 | P.DS_ITS ---
DS: Providers Provider Date of admission: 07/12/24 11:00 Primary care physician: Rosmery Singer MD Consults: 07/12/24 Consult to Dietitian Routine Reason for consultation: Patient has not been eating well at home per Has provider been notified: No 07/12/24 09:00 Occupational Therapy Eval and Treat Routine Reason for consultation: Weakness Has provider been notified: No Physical Therapy Eval and Treat Routine Reason for consultation: Weakness Has provider been notified: No 07/12/24 11:02 Consult to Cardiology Routine Reason for consultation: Acute CHF, NSTEMI Has provider been notified: No DS: Diagnosis Discharge Diagnosis (1) NSTEMI (non-ST elevated myocardial infarction): (2) Acute respiratory failure with hypoxia: (3) Urinary tract infection: Qualifiers: Hematuria presence: without hematuria Urinary tract infection type: acute cystitis Qualified Code(s): N30.00 - Acute cystitis without hematuria (4) Acute renal failure: Qualifiers: Acute renal failure type: unspecified Qualified Code(s): N17.9 - Acute kidney failure, unspecified (5) Generalized weakness: (6) Diabetes: Qualifiers: Chronic kidney disease stage: unspecified stage Diabetes mellitus complication detail: with chronic kidney disease Diabetes mellitus complication status: with kidney complications Diabetes mellitus shelter insulin use: without terminal make up operator use Diabetes mellitus type: type 2 Qualified Code(s): E11.22 - Type 2 diabetes mellitus with diabetic chronic kidney disease (7) Essential tremor: (8) Hyperlipidemia associated with type 2 diabetes mellitus: (9) Insomnia: Qualifiers: Insomnia type: primary Qualified Code(s): F51.01 - Primary insomnia (10) Hypothyroidism: Qualifiers: Hypothyroidism type: unspecified Qualified Code(s): E03.9 - Hypothyroidism, unspecified (11) Fibromyalgia: (12) Anemia in chronic kidney disease: Assessment and plan: Urinary tract infection: Acute UTI-culture pending, continue with current antibiotics as patient overall is improving, although white blood cell count is low today Acute kidney injury: Improved, closer to baseline NSTEMI type II (non-ST elevated myocardial infarction): Repeat labs due to increase in shortness of breath Acute on chronic diastolic CHF (congestive heart failure): BNP is better Acute respiratory failure with hypoxia:, Patient back up to 2 L, was on 1 L yesterday morning, checking chest x-ray changing antibiotics Generalized weakness: Excellent rehabilitation candidate she is highly motivated, likely transfer to rehab tomorrow especially if they can be weaned off of supplemental oxygen Diabetes: Continue current treatment plan, likely to get worse with addition of 1 dose of Decadron Essential tremor: Continue with current treatment plan Hyperlipidemia associated with type 2 diabetes mellitus: Continue current treatment plan Insomnia: Continue current treatment plan Hypothyroidism: Continue with plan Fibromyalgia: Continue with current treatment plan Anemia in chronic kidney disease: Stable, down slightly today Admission status: Patient with NSTEMI type II due to acute UTI, overall slowly improving but still hypoxia, medically necessary treatment will span 2 midnights. Inpatient status Qualifiers: Chronic kidney disease stage: stage 4 (GFR 15-29) Qualified Code(s): N18.4 - Chronic kidney disease, stage 4 (severe); D63.1 - Anemia in chronic kidney disease DS: Summary Hospital Course Hospital Course: Patient mated with increasing weakness found to have acute UTI but patient also became hypoxic secondary to acute bronchitis, started on antibiotics on admission, culture for urine is still pending, patient is improving, her cough is much improved, still on 2 L of supplemental oxygen which I suspect could be weaned off while she is at the rehabilitation facility. Excellent rehabilitation candidate, cleared for transfer to rehab today. Status at Discharge Overall status at discharge: patient is not back to baseline Time Spent with Patient Time attestation: Total time spent providing and/or coordinating discharge services: Time spent: greater than 30 minutes Exam Constitutional Vital Signs, click to edit/add: Last Vital Signs Temp 97.8 F 07/16/24 03:02 Pulse 78 07/16/24 05:42 Resp 18 07/16/24 04:43 BP 121/74 07/16/24 03:02 Pulse Ox 93 L 07/16/24 04:43 O2 Del Method Nasal Cannula 07/16/24 04:43 O2 Flow Rate 2 07/16/24 04:43 Documenting provider has reviewed patient's vital signs: yes Common normals: apparent distress (Mild conversational dyspnea with cough throughout the evaluation) Respiratory Common normals: abnormal respiratory effort (Much improved today) Auscultation: rhonchi; no wheezes Cardio Common normals: regular rate and regular rhythm Extremity Common normals: abnormal to inspection (1+ edema) DS: Data Data Completed and Pending Labs on day of discharge: Labs from last 24 hours 07/16/24 07/15/24 07/15/24 05:49 21:33 16:47 WBC 3.2 L RBC 3.92 L Hgb 11.4 L Hct 35.6 L MCV 90.8 MCH 29.1 MCHC 32.0 RDW 12.9 Plt Count 180 MPV 9.7 Neut % (Auto) 55.8 Lymph % (Auto) 34.2 [place] % (Auto) 9.4 Eos % (Auto) 0.0 L Baso % (Auto) 0.3 Neut # (Auto) 1.8 Lymph # (Auto) 1.1 L [place] # (Auto) 0.3 Eos # (Auto) 0.0 Baso # (Auto) 0.0 Abs Immat Gran (auto) 0.01 Imm/Tot Granulo (auto) 0.3 Sodium 140 Potassium 4.5 Chloride 101 Carbon Dioxide 30.8 Anion Gap 12.7 BUN 22.0 H Creatinine 1.53 H Est GFR ( Amer) 40 L Est GFR (Non-Af Amer) 33 L BUN/Creatinine Ratio 14.4 Glucose 224 H Calcium 9.1 Magnesium Total Bilirubin 0.3 AST 37 ALT 15 Alkaline Phosphatase 78 Troponin I High Sens NT-Pro-B Natriuret Pep Total Protein 6.5 Albumin 2.9 L Globulin 3.6 Albumin/Globulin Ratio 0.8 POC Glucose 303 H 279 H 07/15/24 07/15/24 07/15/24 16:45 12:19 10:11 WBC 2.9 L RBC 3.78 L Hgb 11.0 L Hct 34.8 L MCV 92.1 MCH 29.1 MCHC 31.6 RDW 13.3 Plt Count 156 MPV 9.3 L Neut % (Auto) 36.0 L Lymph % (Auto) 49.0 [place] % (Auto) 9.9 Eos % (Auto) 4.8 Baso % (Auto) 0.3 Neut # (Auto) 1.1 L Lymph # (Auto) 1.4 [place] # (Auto) 0.3 Eos # (Auto) 0.1 Baso # (Auto) 0.0 Abs Immat Gran (auto) 0.00 Imm/Tot Granulo (auto) 0.0 Sodium 143 Potassium 4.0 Chloride 105 Carbon Dioxide 34.1 H Anion Gap 7.9 BUN 18.0 Creatinine 1.51 H Est GFR ( Amer) 40 L Est GFR (Non-Af Amer) 33 L BUN/Creatinine Ratio 11.9 Glucose 127 H Calcium 8.5 Magnesium 1.8 Total Bilirubin 0.3 AST 35 ALT 15 Alkaline Phosphatase 73 Troponin I High Sens 14.4 NT-Pro-B Natriuret Pep 169.0 Total Protein 6.0 L Albumin 2.8 L Globulin 3.2 Albumin/Globulin Ratio 0.9 POC Glucose 341 H 129 H 07/15/24 07:53 WBC RBC Hgb Hct MCV MCH MCHC RDW Plt Count MPV Neut % (Auto) Lymph % (Auto) [place] % (Auto) Eos % (Auto) Baso % (Auto) Neut # (Auto) Lymph # (Auto) [place] # (Auto) Eos # (Auto) Baso # (Auto) Abs Immat Gran (auto) Imm/Tot Granulo (auto) Sodium Potassium Chloride Carbon Dioxide Anion Gap BUN Creatinine Est GFR ( Amer) Est GFR (Non-Af Amer) BUN/Creatinine Ratio Glucose Calcium Magnesium Total Bilirubin AST ALT Alkaline Phosphatase Troponin I High Sens NT-Pro-B Natriuret Pep Total Protein Albumin Globulin Albumin/Globulin Ratio POC Glucose 120 H Preliminary micro results at discharge 07/12/24 03:26 Urine Culture - Preliminary Urine Catheterized Gram negative yadiel 07/12/24 02:27 Blood Culture Result 2 - Preliminary Blood - Right Forearm NO GROWTH AT 36-48 HOURS. FINAL TO FOLLOW. 07/12/24 01:15 Blood Culture Result 1 - Preliminary Blood - Left Antecubital NO GROWTH AT 36-48 HOURS. FINAL TO FOLLOW. Discharge Plan Discharge Disposition: Xfer SNF Condition: Fair Discharge Medications: New levofloxacin 500 mg tablet 500 mg PO DAILY 10 Days Qty: 10 0RF prednisone 10 mg tablet 50 mg PO DAILY Qty: 47 0RF Rx Instructions: 5/day for 3 days. 4/day for 3 days, 3/day for 3 days, 2/day for 3 days, 1/day for 3 days, 1/2 /day for 4 days Continued cephalexin 500 mg capsule 500 mg PO Q12H 7 Days Qty: 14 0RF atorvastatin 10 mg tablet 10 mg PO .qd furosemide 40 mg tablet 40 mg PO .qd levothyroxine 50 mcg tablet 50 mcg PO .qd mirabegron [Myrbetriq] 50 mg tablet extended release 24 hr 50 mg PO DAILY metformin 500 mg tablet 500 mg PO BID potassium chloride 10 mEq tablet extended release 10 meq PO BID pregabalin 100 mg capsule 100 mg PO BID ropinirole 2 mg tablet 2 mg PO QPM Rx Instructions: 1-3 hours before bedtime trazodone 100 mg tablet 100 mg PO .qhs carvedilol 3.125 mg tablet 3.125 mg PO Q12H docusate calcium 240 mg capsule 240 mg PO .COMPLEX PRN (Reason: constipation) Rx Instructions: 240 mg orally orally, four times a week- sun, , , sat; PRN; ferrous sulfate [FeroSul] 325 mg (65 mg iron) tablet 325 mg PO DAILY hydrocodone-acetaminophen 5-325 mg tablet 1 tab PO Q12H PRN (Reason: pain) aspirin [Adult Aspirin Regimen] 81 mg tablet,delayed release (DR/EC) 81 mg PO DAILY Mag Glycinate 100 mg tablet 400 mg PO DAILY cholecalciferol (vitamin D3) 125 mcg (5,000 unit) tablet 5,000 unit PO .COMPLEX Rx Instructions: 5,000 units orally mon, tue, tuesday; Print Language: Persian Forms: Portal Instructions
--- NOTE | 2024-07-16 07:56 | CM.NOTE ---
Rounds made with Dr. Mart, pt will discharge today to [facility] for skilled therapy.
--- NOTE | 2024-07-16 07:59 | CM.NOTE ---
2nd Notice of Important Message From Medicare discussed with pt, pt denies questions or concerns.
[2024-07-16] MEDS: INSULIN ASPART 300 UNIT/3 ML PEN SUBQ (08:19)
[2024-07-16] MEDS: POTASSIUM CHLORIDE 10 MEQ ER TABLET PO (08:20)
[2024-07-16] MEDS: GUAIFENESIN 600 MG TAB.ER.12H PO (08:20)
[2024-07-16] MEDS: MAGNESIUM OXIDE 400 MG TABLET PO (08:20)
[2024-07-16] MEDS: HEPARIN SODIUM (PORCINE) 5,000 UNIT/ML VIAL 5000 UNIT SUBQ (08:20)
[2024-07-16] MEDS: PREGABALIN 75 MG CAPSULE PO (08:21)
[2024-07-16] MEDS: CHOLECALCIFEROL (VITAMIN D3) 125 MCG/5,000 UNIT TABLET PO (08:21)
[2024-07-16] MEDS: HYDROCODONE/ACET 5-325 MG TABLET 1 TAB PO (08:21)
[2024-07-16] MEDS: CARVEDILOL 3.125 MG TABLET PO (08:21)
[2024-07-16] MEDS: FERROUS SULFATE 325 MG TABLET PO (08:21)
[2024-07-16] MEDS: ASPIRIN 81 MG TABLET.DR PO (08:21)
[2024-07-16] MEDS: FUROSEMIDE 40 MG TABLET PO (08:21)
--- NOTE | 2024-07-16 09:32 | SWNOTE1 ---
SW spoke to case management and pt is ready for discharge. SW stopped in and spoke to daughter and patient. Pt working with OT. Daughter was asking time for transport. SW advised that SW will reach out to [facility] to see if they have transport available and if not then trips. At this time SW and daughter in agreement that pt not safe to go by private vehicle. SW to work on transport. 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 SHERRIE faxed over dc summary, dc med rec, labs, vitals, progress note from this weekend, and PT note from this weekend to the [facility].
--- NOTE | 2024-07-16 10:03 | SWNOTE1 ---
[facility] does not have transportation available today. [facility]ERRIE called and set up trips for 11-11:30. SHERRIE notified nursse, [place], and pt/daughter as well. Pt would like hot tea and SHERRIE re-assured pt and daughter that the nurse would be in to get her ready for discharge. All discharge paperwork sent to [facility]. [facility] was completed on 07/13/24. SHERRIE took packet to the med/surge floor.
--- NOTE | 2024-07-16 13:19 | PT.DAILY ---
Physical Therapy Daily Note PT Daily Note/Assess Start: 07/12/24 09:00 Freq: Status: Discharge Protocol: Document 07/16/24 13:12 [facility]AR[facility] (Rec: 07/16/24 13:17 SHAR[facility] [id number]) Physical Therapy Daily Note/Assessment Time In/Time Out Time In 10:15 Time Out 10:30 Pain In Pain N/A Pain Out Pain N/A Subjective Subjective Pt discharging to [facility] shortly but wishes for assistance to get dressed and into wheel chair for transport. Therapeutic Activity Time Therapeutic Activity 8 Minutes (minutes) Therapeutic Activity 1 Units Therapeutic Activity Treatment Bed Mobility Ability Independent Chair Transfer Minimum Assist Ability Therapeutic Activity requires set up for upper body dressing. Total assist Comments for lower body dressing. Removed tele. Nursing removed catheter. Sit>stand Helene due to posterior lean. assistance needed for pericare and to pull up brief and pants. takes seated rest prior to stand pivot. Sit> stand to RW and 3' side stepping to WC. Pt left in wheel chair with family. Total Physical Therapy Time Total Therapy 8 Minutes Total Physical 1 Therapy Units Summary Daily Note Summary Cont to requires some assistance with transfers. Easily fatigued.
--- NOTE | 2024-07-19 14:32 | CM.NOTE ---
Sputum culture resulted, pt was D/C on Levaquin (susceptible).
== END 2024-07-16 11:05 | DRG 682 ==
LOC: ER 04:12 → MS 06:10
PROVIDERS: Registered Nurse; Admitting Provider Family Medicine; Emergency Provider Emergency Medicine; PCP Family Medicine; Visit Provider Family Medicine
DX: N17.9 Acute kidney failure, unspecified (principal); I21.A1 Myocardial infarction type 2; I50.33 Acute on chronic diastolic (congestive) heart failure; J96.01 Acute respiratory failure with hypoxia; N30.00 Acute cystitis without hematuria; I13.0 Hypertensive heart and chronic kidney disease with heart failure and stage 1 through stage 4 chronic kidney disease, or unspecified chronic kidney disease; N18.4 Chronic kidney disease, stage 4 (severe); R53.1 Weakness; E11.22 Type 2 diabetes mellitus with diabetic chronic kidney disease; G25.0 Essential tremor; Z79.84 Long term (current) use of oral hypoglycemic drugs; E78.5 Hyperlipidemia, unspecified; F51.01 Primary insomnia; E03.9 Hypothyroidism, unspecified; M79.7 Fibromyalgia; D63.1 Anemia in chronic kidney disease; R50.9 Fever, unspecified; G25.81 Restless legs syndrome; I25.2 Old myocardial infarction; Z79.82 Long term (current) use of aspirin; Z79.899 Other long term (current) drug therapy; E11.69 Type 2 diabetes mellitus with other specified complication; J20.9 Acute bronchitis, unspecified; B96.1 Klebsiella pneumoniae [K. pneumoniae] as the cause of diseases classified elsewhere; I25.10 Atherosclerotic heart disease of native coronary artery without angina pectoris; I87.2 Venous insufficiency (chronic) (peripheral)
CPT/HCPCS: 36415; 70450; 71045; 71046; 76775; 80048; 80053; 80061; 81001; 82550; 82948; 83036; 83605; 83735; 83880; 84443; 84484; 85025; 87040; 87070; 87086; 87150; 87186; 87205; 87420; 87804; 87811; 93005; 93306; 94640; 94667; 94668; 94761; 96365; 97161; 97165; 97530; 97535; 99285; J0456; J0696; J1100; J1644; J1940

== ENCOUNTER 2024-08-08 11:00 | Outpatient (OUT) | payer MEDICARE, SELFPAY ==
[2024-08-08 11:15] LABS: Creatinine Urine Random 65.67 mg/dL (20.00-300.00); Protein Creatinine Ratio Urine 0.24; Total Protein Urine Random 15.5 mg/dL (<=11.9)
--- OUTSIDE RECORDS SUMMARY | 2024-08-08 11:25 | XMS_ITS | CCD ---
Author Organization [facility] Care Team Providers Care Chess Instructor Name Role Phone PHYSICIAN, DEFAULT Unavailable Unavailable [...] Primary Care Unavailable GERMANIA, YANETH Consulting Unavailable CARA VILLEDA Primary Care Unavailable GERMANIA, YANETH Attending Unavailable GERMANIA, YANETH Admitting Unavailable HARPAL HAYES Primary Care Physician [phone] Natalie Lowe Unavailable Unavailable Harpal Hayes Unavailable LINDA ROUSE Attending Unavailable LINDA ROUSE Referring Unavailable ZACH BUI Attending Unavailable HARPAL HAYES Referring Unavailable HARPAL HAYES Primary Care Unavailable Christie Zayas Admitting Unavailable Hector Meier Attending Unavailable DO Terry Delvalle Attending Unavailable Tika CHRISTENSEN Attending Unavailable Saiam CHRISTENSENr Roberto Admitting Unavailable AMPARO, DO Ronobir [...] Consulting Unavailable Akers, Goins Consulting Unavailable Akers, Gonis Consulting Unavailable Akers, Goins Consulting Unavailable Akers, [...] AUSTIN Attending Unavailable JOSH AUSTIN Attending Unavailable Harpal Hayes MD Primary Care Provider Allergies Allergy Classification Reported Allergen(s) Allergy Type Date of Onset Reaction(s) Facility (20 sources) butorphanol; Translations: [Stadol] Drug Allergy 2 ANXIOUS [facility] Repository (14 sources) PT DENIES ANY METAL ALLERGY Propensity to adverse reactions Unknown [facility] [email or web address] Other (10 sources) Butorphanol; Translations: [butorphanol] Drug Allergy 4 Other (See Comments) [facility] (10 sources) Stadol *ANALGESICS - OPIOID* Propensity to adverse reactions Unknown [facility] [email or web address] Other (2 sources) Allergies Reconciled Propensity to adverse reactions Unknown [facility] [email or web address] Other (2 sources) Butorphanol; Translations: [BUTORPHANOL TARTRATE] Drug Allergy 4 Other (See Comments) [facility] Repository Medications Current Medications Medication Drug [...] hours August 04, 2023 1:00am Start: 12-08-2022 acetaminophen (TYLENOL EXTRA STRENGTH) 500 mg tablet Take 2 tablets (1,000 mg total) by mouth. 12/08/2022 Active Start: 12-03-2022 acetaminophen 325 mg Tab 650 [...] every eight hours as needed for pain [place] 325 mg-5 mg oral tablet 1 tab(s), Oral, q8hr as needed for pain, Refill(s) 0 Start Date: 12/06/22 Status: Ordered Start: 11-13-2022 [place] 325 mg-5 mg oral tablet 1 tab(s), [...] End: 03-27-2024 take 1 tablet by mouth in the morning atorvastatin (LIPITOR) 10 mg tablet Take 1 tablet (10 mg total) by mouth in the morning. 02/19/2019 Active Azithromycin (3 sources) Macrolide Antimicrobial Start: 04-02-2024 Azithr omycin Active 0 PO .COMPLEX April 02, 2024 12:00am For 250 mg dose pack: take 500 mg today (day 1), then 250 mg for 4 days (days 2-5) PO Start: 08-03-2023 take 1 tablet by sara once daily azithromycin 250 mg Tab 250 mg = 1 tab(s), Oral, Daily, # 2 tab(s), Refills(s) 0, Pharmacy: [facility], 149.9, cm, 07/30/23 20:35:00 EST, Height/Length [...] day(s), # 15 cap(s), Refills(s) 0, Pharmacy: [facility], 157.4, cm, 04/04/24 0:33:00 EDT, Height/Length [...] day(s), # 8 cap(s), Refills(s) 0, Pharmacy: [facility], 152, cm, 12/02/22 9:48:00 EDT, Height/Length Dosing, 87.8, kg, 12/02/22 9:48:00 EDT, Weight Dosing Start Date: 12/03/22 Stop Date: 12/07/22 Status: Ordered cefuroxime 500 mg oral tablet (2 sources) Cephalosporin Antibacterial Start: 08-03-2023 take 1 tablet by mouth twice daily cefuroxime 500 mg oral tablet 500 mg = 1 tab(s), Oral, BID, # 4 tab(s), Refills(s) 0, Pharmacy: [facility], 149.9, cm, 07/30/23 20:35:00 EST, [...] WED, FRI Active take 1 tablet by sara th three times weekly Vitamin D3 Maximum Strength 125 MCG (5000 UT) 1 tab(s) Orally THREE TIMES A WEEK Active Vitamin D3 250 M CG (53504 UT) 1 capsule Orally MON, TUE, FRI Active ciprofloxacin 500 mg oral tablet (2 sources) Quinolone Antimicrobial Start: 12-01-2022 take 1 tablet by mouth every twelve hours ciprofloxacin 500 mg Tab 500 mg = 1 tab(s), Oral, q12hr, # 10 tab(s), Refills(s) 0, Pharmacy: [facility], 152, cm, 11/10/22 21:21:00 EDT, Height/Length Dosing, 83, kg, 11/10/22 21:21:00 EDT, Weight Dosing Start Date: 12/01/22 Status: Ordered cranberry-vitamin C-mannose 250-30-50 mg tablet,chewable (1 source) cranberry-vitami n C-mannose 250-30-50 mg tablet,chewable Chew and swallow. Active D-Mannose (4 sources) Start: 08-04-2023 take 1 [...] Start: 07-31-2023 take 1 capsule by mo uth twice daily as needed for constipation Colace 100 mg Cap 100 mg = 1 cap(s), Oral, BID, PRN for constipation, # 20 cap(s), Refills(s) 0 Start Date: 07/31/23 Status: Ordered Start: 10-05-2021 take 2 capsules by m outh every other day as needed docusate calcium (SURFAK) 240 mg capsule TAKE TWO CAPSULES BY MOUTH EVERY 2 DAYS NEEDED 10/05/2021 Active docusate sodium (COLACE) 100 mg capsule Take 2 capsules (200 mg total) by mouth. Active take 1 capsule by mo [facility] four times weekly as needed Stool Softener 240 MG 1 capsule as needed Orally four times a week as needed for 30 days Active DULoxetine 60 mg delayed release oral capsule (1 source) Serotonin and Norepinephrine Reuptake Inhibitor Start: 06-13-2019 take 1 capsule by mouth once daily DULoxetine (CYMBALTA) 60 mg capsule Take 1 capsule (60 mg total) by mouth daily. 60 capsule 1 06/13/2019 Active ergocalciferol 1.25 mg oral capsule (1 source) Provitamin D2 Compound ergocalciferol (DRISDOL) 1,250 mcg (50,000 unit) capsule Active ferrous sulfate 325 mg oral tablet [...] Ordered Start: 02-08-2024 take 1 tablet by [facility] once daily Ferrous Sulfate (Ferosul) 325 mg [...] 11/11/22 Status: [facility] ferrous sulfate 325 (65 FE) mg tablet Take 1 tablet (325 mg total) by mouth. 3 times a week Active [facility] Ferrous Sulfate 325 (65 Fe) MG 1 tablet Orally three times a week Active [facility] Ferrous Sulfate 325 (65 Fe) MG 1 tablet Orally three times a week Active fluticasone propionate 0.05 mg/actuat metered dose nasal spray (1 source) Corticosteroid Start: 02-20-2019 fluticasone propionate (FLONASE) 50 mcg/actuation nasal spray 02/20/2019 Active folic acid 1 mg oral tablet (1 source) Start: 04-06-2024 take 1 tablet by mouth once daily folic acid 1 mg Tab 1 mg = 1 tab(s), Oral, Daily, # 30 tab(s), Refills(s) 0, Pharmacy: [facility], 157.4, cm, 04/04/24 0:33:00 EDT, Height/Length Dosing, 86.1, kg, 04/04/24 0:33:00 EDT, Weight Dosing Start Date: 04/06/24 Status: Ordered furosemide 40 mg oral tablet (20 sources) Loop Diuretic Start: 11-11-2022 End: 08-17-2023 take 1 tablet by mouth once daily furosemide 40 mg Tab 40 mg = 1 tab(s), Oral, Daily, Refills(s) 0 Start Date: 11/11/22 Status: Ordered Start: 03-12-2019 take 2 tablets by [facility] once daily furosemide (LASIX) 20 mg tablet Take 2 tablets (40 mg total) by mouth daily. 03/12/2019 Active Start: 09-22-2018 End: 08-04-2023 take 20 mg by mouth twice daily Furosemide Discontinue d 20 MG PO Twice daily September 22, 2018 12:00am August 04, 2023 9:22am 12 hr guaiFENesin 600 mg extended release oral tablet (1 source) Start: 04-06-2024 End: 04-11-2024 take 2 tablets by mouth every twelve hours Mucinex 600 mg Tab-ER 1,200 mg = 2 tab(s), Oral, q12hr, X 5 day(s), # 20 tab(s), Refills(s) 0, Pharmacy: [facility], 157.4, cm, 04/04/24 0:33:00 EDT, [...] Orally four times a week Active magnesium gluconate 550 mg oral tablet (1 source) magnesium 30 mg tablet Take 400 mg by mouth in the morning. Four times a week . Active magnesium oxide 400 mg oral capsule (13 sources) Start: 08-04-2023 End: 08-05-2023 take 400 [...] End: 03-27-2024 take 1 tablet by mouth in the morning, then take 1 tablet by mouth at bedtime metFORMIN (GLUCOPHAGE) 500 mg tablet Take 1 tablet (500 mg total) by mouth in the morning and 1 tablet (500 mg total) before bedtime. 02/01/2019 Active 24 hr mirabegron 50 mg extended release oral tablet (17 sources) beta3-Adrenergic Agonist Start: 07-31-2023 End: 12-27-2023 take 1 tablet by mouth once daily in the morning Myrbetriq 50 mg oral tablet, extended release TAKE 1 TABLET BY MOUTH EVERY MORNING Start Date: 07/31/23 Status: Ordered Start: 05-18-2023 End: 11-22-2023 take 1 tablet by mouth every twenty-four hours in the morning mirabegron (MYRBETRIQ) 50 mg tablet extended release 24 hr Take 1 tablet (50 mg total) by mouth in the morning. 90 tablet 3 11/22/2023 Active take 1 tablet by sara th every twenty-four hours Myrbetriq 50 MG 1 tablet Orally Once a day Active nitroglycerin 0.4 mg sublingual tablet (8 sources) Nitrate Vasodilator Start: 11-11-2022 nitroglyce rin 0.4 mg sublingual Tab 0.4 mg = 1 tab(s), SubLingual, q5min, PRN for chest pain, # 100 tab(s), Refills(s) 0 Start Date: 11/11/22 Status: Ordered nitroglycerin (N ITROSTAT) 0.4 MG SL tablet nitroglycerin 0.[address] 1 tablet as needed by sublingual route as needed for 30 days. Active nystatin 100 unt/mg topical powder (20 sources) Polyene Antifungal Start: 12-23-2023 Nystatin (N yamyc) 100,000 unit/gram powder Active 0 .ROUTE .COMPLEX December 23, 2023 10:51am APPLY ONE APPLICATION TWICE A DAY TOPICALLY Start: 11-11-2022 End: 12-23-2023 nystatin Top 100,000 units/g Pwdr 1 chantal, Topical, BID, 30 gram, Refill(s) 0 Start Date: 11/11/22 Status: Ordered Start: 01-18-2019 NYAMY powder 01/18/2019 Active Nystatin 631994 UNIT/GM 1 application Externally Twice a day for 10 days Active pantoprazole 40 mg delayed release oral tablet (1 source) Proton Pump Inhibitor Start: 04-06-2024 take 1 tablet by mouth once daily Protonix 40 mg Tab-DR 40 mg = 1 tab(s), Oral, Daily, # 30 tab(s), Refills(s) 0, Pharmacy: [facility], 157.4, cm, 04/04/24 0:33:00 EDT, Height/Length Dosing, 86.1, kg, 04/04/24 0:33:00 EDT, Weight Dosing Start Date: 04/06/24 Status: Ordered polyethylene glycol 3350 91327 mg powder for oral solution (14 sources) [...] 2024 8:30am March 19, 2024 4:29pm Start: 08-04-2023 End: 08-05-2023 take 150 mg [...] TWO TIMES DAILY for Aug, Active Start: 03-08-2019 End: 09-06-2023 take 150 mg by mouth once daily Pregabalin Discontinue d 150 MG PO Daily August 05, 2023 2:54pm September 06, 2023 11:30am Start: 09-22-2018 End: 08-04-2023 take 1 capsule by mouth three times daily Pregabalin (Lyrica) 150 mg capsule Discontinued 150 MG PO Three times daily September 22, 2018 12:00am August 04, 2023 9:29am take 1 capsule by mo ut every twelve hours Lyrica 150 MG 1 [...] 2023 1:00am September 06, 2023 11:31am Start: 02-19-2019 take 0.5 tablet by m outh in the morning rOPINIRole (REQUIP) 4 mg tablet Take 0.5 tablets (2 mg total) by mouth in the morning. 02/19/2019 Active Start: 09-22-2018 End: 08-05-2023 take 4 mg by mouth once daily Ropinirole Discontinued 4 MG PO Daily September 22, 2018 12:00am August 05, 2023 2:59pm sulfamethoxazole 800 mg / trimethoprim 160 mg oral tablet (2 sources) Dihydrofolate Reductase Inhibitor Antibacterial, Sulfonamide Antimicrobial Start: 01-23-2024 take 1 tablet by mouth twice daily Sulfamethoxazole-Trimethoprim Active 1 TAB PO Twice daily January 23, 2024 12:00am timolol 0.005 mg/mg ophthalmic gel (1 source) beta-Adrenergic Skyler Start: 02-24-2019 apply 1 drop(s) into the eye(s) once daily timolol (TIMOPTIC-XE) 0.5 % ophthalmic gel-forming INSTILL 1 DROP INTO EACH EYE ONCE A DAY 12 02/24/2019 Active traMADol hydrochloride 50 mg oral tablet (1 source) Opioid Agonist take 1 tablet by mouth three times daily as needed traMADoL (ULTRAM) 50 mg tablet Take 1 tablet (50 mg total) by mouth 3 (three) times a day as needed. Active traZODone hydrochloride 100 mg oral tablet (20 [...] a day Active Vitamin D3 250 MCG (83956 UT) (9 sources) Vitamin D3 250 M CG (32270 UT) 1 capsule Orally MON, WED, TUE Active Vitamin D3 Maximum Strength 125 [...] 2023 2:03pm December 20, 2023 11:27am Start: 03-12-2019 take 0.5 tablet by m outh in the morning, then take 0.5 tablet by mouth at bedtime carvedilol (COREG) 6.25 mg tablet Take 0.5 tablets (3.125 mg total) by mouth in the morning and 0.5 tablets (3.125 mg total) before bedtime. 03/12/2019 Active Start: 09-22-2018 End: 09-06-2023 take 6.25 mg [...] 0 Start Date: 11/11/22 Status: Ordered Start: 01-01-2019 take 1 tablet by sara th in the morning potassium chloride (K-DUR,KLOR-CON) 10 MEQ CR tablet Take 1 tablet (10 mEq total) by mouth in the morning and 1 tablet (10 mEq total) before bedtime. 01/01/2019 Active Start: 09-22-2018 take 1 tablet by sara th twice daily Potassium Chloride Active 1 TAB PO Twice daily September 22, 2018 12:00am Problems Active Problems Problem Classification Problem Date Documented Date Episodic/Chronic Abdominal pain (20 sources) Abdominal pain; Translations: [Unspecified abdominal pain] Onset: 7 Episodic Acute and unspecified renal failure (1 source) Renal failure syndrome; Translations: [Unspecified kidney failure] Onset: 2 03-15-2019 Chronic Acute and unspecified renal failure (1 source) [...] or chronic] Episodic Congestive heart failure; nonhypertensive (4 sources) Heart failure, unspecified; Translations: [Chronic diastolic heart failure] Onset: 9 03-15-2019 Chronic Coronary atherosclerosis and other heart disease (12 sources) Atherosclerotic heart disease of [place] coronary artery without angina pectoris; Translations: [Coronary [...] Essential hypertension; Translations: [Essential (primary) hypertension] Onset: 2 Chronic Fluid and electrolyte disorders (2 sources) Acidosis; Translations: [Acidosis, unspecified] Onset: 4 Episodic Genitourinary symptoms and ill-defined conditions (20 sources) Female stress incontinence; Translations: [Female stress incontinence] Onset: 3 Chronic Genitourinary symptoms and ill-defined conditions (3 sources) Other microscopic hematuria; Translations: [Dysuria] Onset: 2 Episodic Gout and other crystal arthropathies (20 sources) Gout; Translations: [Gout, unspecified] Onset: 2 Resolved: 2 Chronic Heart valve disorders (5 sources) Nonrheumatic tricuspid (valve) insufficiency; Translations: [Tricuspid valve disorder, non-rheumatic] Onset: 4 Chronic Hypertension with complications and secondary hypertension [...] knee; Translations: [Unilateral primary osteoarthritis, left knee] Onset: 3 01-31-2016 Chronic Other aftercare (18 sources) Patient encounter status; Translations: [Aftercare following joint replacement surgery] Chronic Other aftercare (1 source) Other retirement (current) drug therapy; Translations: [OTH CORRECTION CURRENT DRUG THERAPY] Onset: 2 Episodic Other aftercare (1 source) skilled nursing (current) use of oral hypoglycemic drugs; Translations: [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 ORAL HYPOGLYCEMIC DX] Onset: 2 Episodic Other aftercare (1 source) 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; Translations: [CORRECTION CURRENT USE OF INSULIN] Onset: 2 Episodic Other aftercare (3 sources) Long-term current use of drug therapy; Translations: [Other retirement (current) drug therapy] Onset: 4 Episodic Other [...] left shoulder] Episodic Other non-traumatic joint disorders (9 sources) [...] right foot] Episodic Other non-traumatic joint disorders (5 sources) Pain in right shoulder; Translations: [Right shoulder pain] Onset: 3 09-06-2023 Episodic Other nutritional; endocrine; and metabolic [...] Acute sinusitis; Translations: [Acute sinusitis, unspecified] Episodic Edie-; endo-; and myocarditis; cardiomyopathy (except that caused by tuberculosis or sexually transmitted disease) (1 source) Primary cardiomyopathy; Translations: [Cardiomyopathy, unspecified] Onset: 2 03-15-2019 Chronic Pneumonia (except that caused by tuberculosis or [...] [Other cervical disc degeneration, unspecified cervical region] Onset: 2 Chronic Spondylosis; intervertebral disc disorders; other back [...] IN RIGHT ANKLE] Onset: 2 Episodic Other non-traumatic joint disorders (3 sources) Pain of left wrist; Translations: [Pain in left wrist] Onset: 3 Episodic Residual codes; unclassified (1 source) Family history of malignant neoplasm of gastrointestinal tract; Translations: [Family history of malignant neoplasm of digestive organs] Episodic Residual codes; unclassified (1 source) Edema; Translations: [Edema, unspecified] Onset: 9 03-15-2019 Episodic Sprains and strains (1 source) Strain [...] Range Facility Office Visiton 05-28-2024 Follow-up visit [id number] Nadia Patterson 1945 F Date Provider Department Center 05/28/2024 271-JOSH AUSTIN CARD [facility] No family history on file Level of Service:77195 CO OFFICE/OUTPATIENT ESTABLISHED LOW MDM 20 MIN Normal [facility] C Sputumon 04-07-2024 Bacteria identified Respiratory [...] Locations R1: This test was performed at: [facility], [address] [place] [address], [id number]- , [place], [facility] Comment on above: Performed By: #### 2 [id number] #### [facility] [address] [place] [address] BMPon 04-06-2024 Anion gap [Moles/Vol] 12 mmol/L Normal 6-16 [facility] Comment on above: Performed By: #### 2 [id number] #### [facility] [address] [place] [address] Calcium [Mass/Vol] 8.7 mg/dL Low 8.9-11.1 [facility] Comment on above: Performed By: #### 2 [id number] #### [facility] [address] [place] [address] Chloride [Moles/Vol] 106 mmol/L Normal 101-111 [facility] Comment on above: Performed By: #### 2 [id number] #### [facility] [address] [place] [address] CO2 [Moles/Vol] 25 mmol/L Normal 21-31 [facility] Comment on above: Performed By: #### 2 [id number] #### [facility] [address] [place] [address] Creatinine [Mass/Vol] 1.4 mg/dL High 0.5-1.3 [facility] Comment on above: Performed By: #### 2 [id number] #### [facility] [address] [place] [address] Glucose [Mass/Vol] 138 mg/dL Normal 55-199 [facility] Comment on above: Performed By: #### 2 [id number] #### [facility] [address] [place] [address] Potassium [Moles/Vol] 4.5 mmol/L Normal 3.5-5.3 [facility] Comment on above: Performed By: #### 2 [id number] #### [facility] [address] [place] [address] Sodium [Moles/Vol] 138 mmol/L Normal 135-145 [facility] Comment on above: Performed By: #### 2 [id number] #### [facility] [address] [place] [address] Urea nitrogen [Mass/Vol] 16 mg/dL Normal 5-21 [facility] Comment on above: Performed By: #### 2 [id number] #### [facility] [address] [place] [address] Urea nitrogen/Creatinine [Mass ratio] 11 No Units Normal 10-20 [facility] Comment on above: Performed By: #### 2 [id number] #### [facility] [address] [place] [address] C Urineon 04-06-2024 Bacteria identified Cx Nom [...] Locations R1: This test was performed at: [facility], [address] [place] [address], [address]- , , Normal [facility] Comment on above: Performed By: #### 2 [id number] #### [facility] [address] [place] [address] CHEMISTRYOrdered By: Yane BASSETT User on 04-06-2024 Glucose [Mass/Vol] 137 mg/dL High 55 - 99 mg/dL [facility] [place] Subsection Comment on above: Result Comment: Michelle erickson RN/ POC Device SN [id number] 1 Invalid Interpretation Code [facility] POC Subsection POC User ID [id number] 1 Invalid Interpretation Code [facility] POC Subsection POC Username MARIELA LI Invalid Interpretation Code [facility] POC Subsection Glucose [Mass/Vol] 236 mg/dL High 55 - 99 mg/dL [facility] POC Subsection Comment on above: Result Comment: Michelle dre RN/ POC Device SN [id number] 1 Invalid Interpretation Code [facility] POC Subsection POC User ID [id number] 1 Invalid Interpretation Code [facility] POC Subsection POC Username HENRY PEPPER Invalid Interpretation Code [facility] POC Subsection Glucose [Mass/Vol] 123 mg/dL High 55 - 99 mg/dL [facility] POC Subsection Comment on above: Result Comment: Michelle dre RN/ POC Device SN [id number] 1 Invalid Interpretation Code [facility] POC Subsection POC User ID [id number] 1 Invalid Interpretation Code [facility] POC Subsection POC Username HENRY PEPPER Invalid [...] 11-0 Glucose [Mass/Vol] 137 mg/dL High 55-99 [facility] Comment on above: Result Comment: Michelle PACHECO Performed By: #### 2 [id number] #### [facility] [address] [place] [address] Glucose [Mass/Vol] 236 mg/dL High 55-99 [facility] Comment on above: Result Comment: Michelle PACHECO Performed By: #### 2 [id number] #### [facility] [address] [place] [address] Glucose [Mass/Vol] 123 mg/dL High 55-99 [facility] Comment on above: Result Comment: Michelle PACHECO Performed By: #### 2 [id number] #### [facility] [address] [place] [address] HEMATOLOGYOrdered By: SYSTEM SYSTEM on 04-06-2024 Hematocrit (Bld) [Volume fraction] 32.0 % Low 34.0 - 46.0 % Remisol Heme Hemoglobin (Bld) [Mass/Vol] 10.8 g/dL Low 12.0 - 16.0 gm/dL Remisol Heme Hct & Hgbon 04-06-2024 Hematocrit (Bld) [Volume fraction] 32.0 % Low 34.0-46.0 [facility] Comment on above: Performed By: #### 1 [id number] #### [facility] [address] [place] [address] Hemoglobin (Bld) [Mass/Vol] 10.8 g/dL Low 12.0-16.0 [facility] Comment on above: Performed By: #### 1 [id number] #### [facility] [address] [place] [address] Inpatient Clinical Summaryon 04-06-2024 Inpatient Clinical Summary Inpatient Clinical Summary [address] [address] Clinical Summary Person Information: Name: NADIA PATTERSON Age: 78 Years : 1945 Sex: Female PCP: HARPAL HAYES MD Marital Status: Phone: [phone] Race: White Ethnicity: Non- or Language: Russian Visit Id: Visit Reason: Respiratory problem; Cough; Shortness of breath; fever Speciality: Acuity: Enc Type: Inpatient Med Service: Medical Arrival: 04/04/2024 00:25:34 Discharge: Dispo Type: Admitted as IP to this [facility] Address: [address] [place] [phone] Provider Notes: Diagnosis: 1:Acute respiratory failure with [...] not to exceed 4000 mg/day. acetaminophen-hydroc odone ([place] 325 mg-5 mg oral tablet) 1 Tablets [...] Referring Physician: Follow up: With: Address: When: Toby Santiago [address] [place] [address] Business (1) 05/07/2024 2:00 PM With: Address: When: Brianne Jane [address] [place] [address], [facility] [address] [id number] [phone] Business (1) Within 5 to 7 days Comments: Doctor's office is (more content not included)... Normal [facility] Inpatient Clinical Summary Inpatient Clinical Summary [address] [address] Clinical Summary Person Information: Name: NADIA PATTERSON Age: 78 Years : 1945 Sex: Female PCP: HARPAL HAYES MD Marital Status: Phone: [phone] Race: White Ethnicity: Non- or Language: Russian Visit Id: Visit Reason: Respiratory problem; Cough; Shortness of breath; fever Speciality: Acuity: Enc Type: Inpatient Med Service: Medical Arrival: 04/04/2024 00:25:34 Discharge: Dispo Type: Admitted as IP to this [facility] Address: [address] [place] [phone] Provider Notes: Diagnosis: 1:Acute respiratory failure with [...] not to exceed 4000 mg/day. acetaminophen-hydroc odone ([place] 325 mg-5 mg oral tablet) 1 Tablets [...] Physician: Follow up: With: Address: [facility] [address], [address] [phone] Business (1) Within 5 to 7 days With: Address: When: [address] [place], [place] [id number] Business (1) Within 5 to 7 days With: Address: When: Follow u (more content not included)... Normal [facility] Inpatient Clinical Summary Inpatient Clinical Summary [address] [address] Clinical Summary Person Information: Name: NADIA PATTERSON Age: 78 Years : 1945 Sex: Female PCP: HARPAL HAYES MD Marital Status: Phone: [phone] Race: White Ethnicity: Non- or Language: Russian Visit Id: Visit Reason: Respiratory problem; Cough; Shortness of breath; fever Speciality: Acuity: Enc Type: Inpatient Med Service: Medical Arrival: 04/04/2024 00:25:34 Discharge: Dispo Type: Admitted as IP to this Hosp Address: [address] [place] [address] [phone] Provider Notes: Diagnosis: 1:Acute respiratory failure with [...] By Mouth every 6 hours. acetaminophen-hydroc odone (Burnsville 325 mg-5 mg oral tablet) 1 Tablets [...] Follow up: With: Address: When: HARPAL HAYES [address] [place] [address] [facility] () 04/12/2024 11:30 AM With: Address: When: Patient is currenct with [facility] [employer]. Patient Education Information: [facility] Inpatient Patient Summaryon 04-06-2024 Inpatient Patient Summary Inpatient Patient Summary NADIA PATTERSON Letitia :1945 Visit Date:04/04/2024 Inpatient Discharge Instructions Your [...] acetaminophen (acetaminophen 325 mg Tab) acetaminophen-hydroc odone (Burnsville 325 mg-5 mg oral tablet) albuterol (Albuterol [...] Santiago When: 05/07/2024 02:00 PM EST Where: [address] [place] [address]- Business (1) Follow Up with HARPAL HAYES When: 04/12/2024 11:30 AM EST Where: [address] [facility] [place] [address]- Business (1) Follow Up with Brianne Jane When: Within 5 to 7 days Comments: Doctor's office is closed for the day. Please call Tuesday to make hospital follow up appointment. Where: Sophie Merino, [address] [address] [phone] Business (1) Follow Up with Follow up with your primary cardiology team as soon as possible When: Follow Up with Patient is currenct with [facility]. When: Medications What How Much When Instructions Next Dose New albuterol (Albuterol (Eqv-Ventolin HFA) 90 mcg/ inh inhalation aerosol) 1 Inhalation Inhalation Every 2 hours Pickup at [place] [address] as needed New amoxicillin-clavulan ate (Augmentin 875 mg-125 mg Tab) 1 Tablets By Mouth Every 12 hours Duration: 5 Days Pickup at [place] [address] start New benzonatate (Tessalon 100 mg Cap) 1 Capsules By Mouth 3 times a day as needed for Cough Duration: 5 Days Pickup at [place] [address] start New cyanocobalamin (cyanocobalamin 1000 mcg Tab) 1 Tablets By Mouth Every day Pickup at [place] [address] 04/07 New folic acid (folic acid 1 mg Tab) 1 Tablets By Mouth Every day Pickup at [place] [address] 04/07 New guaifenesin (Mucinex 600 mg Tab-ER) 2 Tablets By Mouth Every 12 hours Duration: 5 Days Pickup at [place] [address] 04/07@9am New pantoprazole (Protonix 40 mg Tab-DR) 1 Tablets By Mouth Every day Pickup at [place] [address] 04/07 Changed acetaminophen (acetaminophen 325 mg Tab) 2 Tablets By Mouth Every 6 hours as needed for Laine (more content not included)... Normal [facility] Inpatient Patient Summary Inpatient Patient Summary FARHEEN PATTERSONESHA Dong :1945 Visit Date:04/04/2024 Inpatient Discharge Instructions Your Care Team Admitting Physician - Tika CHRISTENSEN DO Consulting Physician - Delphine BRIGGS, Briseida [facility], [place] Reason for Your Visit Cough [...] acetaminophen (acetaminophen 325 mg Tab) acetaminophen-hydroc odone (Burnsville 325 mg-5 mg oral tablet) albuterol (Albuterol [...] 02:00 PM EST Where: [place] [address]- Business (1) Follow Up with HARPAL HAYES When: 04/12/2024 11:30 AM EST Where: [facility] [place] [address]- Business (1) Follow Up with Brianne Jane When: Within 5 to 7 days Comments: Doctor's office is closed for the day. Please call Tuesday to make hospital follow up appointment. Where: Sophie Merino, [facility] [address] [address] [phone] Business (1) Follow Up with Follow up with your primary cardiology team as soon as possible When: Follow Up with Patient is currenct with [facility]. When: Medications What How Much When Instructions Next Dose New albuterol (Albuterol (Eqv-Ventolin HFA) 90 mcg/ inh inhalation aerosol) 1 Inhalation Inhalation Every 2 hours Pickup at [place] [address] as needed New amoxicillin-clavulan ate (Augmentin 875 mg-125 mg Tab) 1 Tablets By Mouth Every 12 hours Duration: 5 Days Pickup at [facility] 115 start New benzonatate (Tessalon 100 mg Cap) 1 Capsules By Mouth 3 times a day as needed for Cough Duration: 5 Days Pickup at [facility] 115 start New cyanocobalamin (cyanocobalamin 1000 mcg Tab) 1 Tablets By Mouth Every day Pickup at [place] [address] 04/07 New folic acid (folic acid 1 mg Tab) 1 Tablets By Mouth Every day Pickup at [facility] 1155 04/07 New guaifenesin (Mucinex 600 mg Tab-ER) 2 Tablets By Mouth Every 12 hours Duration: 5 [facility] 04/07@4am New oxybutynin (oxybutynin 5 mg ER Tab) 1 Tablets By Mouth Every day 04/07 New pantoprazole (Protonix 40 mg Tab-DR) 1 Tablets By Mouth Every day Pickup at [facility] (more content not included)... Normal [facility] Inpatient Patient Summary Inpatient Patient Summary [place] [address] Patient Discharge Instructions PERSON INFORMATION Name: NADIA [...] Follow up: With: Address: When: Toby Santiago [address] [place] [address] Business (1) 05/07/2024 2:00 PM With: Address: When: Brianne Jane [address] [place] [address], [address], [address] [address] [phone] Business (1) Within 5 to 7 days Comments: Doctor's office is closed for the day. Please call Tuesday to make hospital follow up appointment. With: Address: When: Follow up with your primary cardiology team as soon as possible With: Address: When: HARPAL HAYES [address] [place] [address] Business (1) 04/12/2024 11:30 AM With: Address: When: Patient is currenct with [facility]. In the event that this physician does not participate in your insurance network, please consult with your insurance company to find a nearby participating provider. Comment: LENORA Fields EILEEN M, have received the attached patient education materials/instructio ns and have verbalized understanding: Patient Signature Date Clinican/Nurse Signature Date HERE ARE THE MEDICATION CHANGES THAT OCCURRED DURING YOUR HOSPITAL STAY New Medications [facility], [address], [place] [id number], [phone] albuterol (Albuterol (Eqv-Ventolin HFA) 90 mcg/inh inhalation [...] Have Changed [facility], [address], [place] [phone], [phone] START: ferrous sulfate (ferrous sulfate 325 mg Tab) 1 Tablets By Mouth every day. Refills: 0. Last Dose: Next Dose: STOP: ferrous sulfate (ferrous sulfate 325 mg Tab) 1 Tablets By Mouth Tuesday. Other Medications START: acetaminophen (acetaminophen 325 mg Tab) 2 Tablets By Mouth every 6 hours as needed Pain. (more content not included)... Normal [facility] Inpatient Patient Summary Inpatient Patient Summary [address] [address] Patient Discharge Instructions PERSON INFORMATION Name: NADIA [...] obesity Condition at Discharge: Stable NADIA PATTERSON Letitia has been given the following list [...] antigen Follow up: With: Address: When: Brianne Jane [address] [place] [address], [address], [address] [phone] Business (1) Within 5 to 7 days With: Address: [facility] [place] [address] Business (1) Within 5 to 7 days With: Address: When: Follow up with your primary cardiology team as soon as possible With: Address: When: HARPAL HAYES [address] [place], [place] [phone] Business (1) 04/12/2024 11:30 AM With: Address: When: Patient is currenct with [facility]. In the event that this physician does not participate in your insurance network, please consult with your insurance company to find a nearby participating provider. Comment: LENORA Fields EILEEN M, have received the attached patient education materials/instructio ns and have verbalized understanding: Patient Signature Date Clinican/Nurse Signature Date HERE ARE THE MEDICATION CHANGES THAT OCCURRED DURING YOUR HOSPITAL STAY New Medications [facility], [address], [place] [phone], [phone] albuterol (Albuterol (Eqv-Ventolin HFA) 90 mcg/inh inhalation [...] Have Changed [facility], [address], [place] [phone], [phone] START: ferrous sulfate (ferrous sulfate 325 mg [...] STOP: acetaminophen (more content not included)... Normal [facility] Inpatient Patient Summary Inpatient Patient Summary [place] [address] Patient Discharge Instructions PERSON INFORMATION Name: NADIA [...] Follow up: With: Address: When: HARPAL HAYES [address] [place] [address] [facility] (1) 04/12/2024 11:30 AM With: Address: When: Patient is currenct with [facility]. In the event that this physician does not participate in your insurance network, please consult with your insurance company to find a nearby participating provider. Comment: ILENORA EILEEN M, have received the attached patient education materials/instructio ns and have verbalized understanding: Patient Signature Date Clinican/Nurse Signature Date HERE ARE THE MEDICATION CHANGES THAT OCCURRED DURING YOUR HOSPITAL STAY Medications to Continue with No Changes Other Medications acetaminophen (Tylenol Extra Strength 500 mg oral tablet) 2 Tablets By Mouth every 6 hours. Last Dose: Next Dose: acetaminophen-hydroc odone ([place]urnsville 325 mg-5 mg oral tablet) 1 Tablets [...] Dose: n (more content not included)... Normal [facility] Interdisciplinary Note - [place] e Manageron 04-06-2024 Interdisciplinary Note - Hand Molder Interdisciplinary Note - Hand Molder CRM to room 306 Patient is awake, alert and oriented. Patient verified PCP, DME and insurance. Patient is from home with her Spouse. [place]. Patient is an inpatient. She completed IMM 04/04 and this gets reviewed. Patient is here for fever, PNA. Patient is assigned to [employer], see notes. Per patient she has a walker at home. She is current with [facility]. She declined any needs for further DME or SNF stay. PT/OT recs SNF with expected improvement. Patient was weaned to RA. Patient continues to decline SNF stay. Patient was provided CRM contact, white board updated. CRM following CRM will get updates from [employer] at 10 AM Today therapy [facility] care Lilian called and was provided an update. [employer] will be informed she is here and would like to meet with her I was updated that patient might DC home today now and f/u with GI as an OP Normal [facility] Comment on above: Result Comment: Patt averyally Signed By: Rosalinda Vogel\.olaf\Date and Time Signed: 04/06/24 13:33 EDT Interdisciplinary Note - Hand Molder Interdisciplinary Note - Hand Molder CRM to room 306 Patient is awake, alert and oriented. Patient verified PCP, DME and insurance. Patient is from home with her Spouse. [place] Patient is an inpatient. She completed IMM 04/04 and this gets reviewed. Patient is here for fever, PNA. Patient is assigned to [employer], see notes. Per patient she has a walker at home. She is current with [facility]. She declined any needs for further DME or SNF stay. PT/OT recs SNF with expected improvement. Patient was weaned to RA. Patient continues to decline SNF stay. Patient was provided CRM contact, white board updated. CRM following CRM will get updates from [employer] GRAHAM at 10 AM Today therapy recs care [facility] Comment on above: Result Comment: Elec tronically Signed By: Rosalinda Vogel\.br\Date and Time Signed: 04/06/24 10:37 EDT Interdisciplinary Note - Hand Molder Interdisciplinary Note - Hand Molder CRM to room 306 Patient is awake, alert and oriented. Patient verified PCP, DME and insurance. Patient is from home with her Spouse. [place] ride [place]. Patient is an inpatient. She completed [facility] 04/04 and this gets reviewed. Patient is here for fever, PNA. Patient is assigned to [employer], see notes. Per patient she has a walker at home. She is current with [facility]. She declined any needs for further DME or SNF stay. PT/OT recs SNF with expected improvement. Patient was weaned to RA. Patient continues to decline SNF stay. Patient was provided CRM contact, white board updated. CRM following CRM will get updates from [employer] GRAHAM at 10 AM [facility] Comment on above: Result Comment: Elec tronically Signed By: Rosalinda Vogel\.br\Date and Time Signed: 04/06/24 09:12 EDT MICRO OTHER TESTSOrdered By: Angie Skinner on 04-06-2024 Occult blood panel (Stl) Positive *ABN* (04/06/24 4:27 AM) Invalid Interpretation Code Negative [facility] [place] S[place] MRSA Screenon [...] Locations R1: This test was performed at: [facility], [address] [place] [address], [id number]- , [place], Normal [facility] Comment on above: Performed By: #### 1 [id number] #### [facility] [address] [place] [address] Procalcitoninon 04-06-2024 Procalcitonin 11.39 ng/mL High .00-.50 [facility] Comment on above: Result Comment: <0.5 [...] to 24 hours. Performed By: #### 2 [id number] #### [facility] [address] [place] [address] Stl Oclt Bldon 04-06-2024 Occult blood panel (Stl) Positive Abnormal Negative [facility] Comment on above: Performed By: #### 2 [id number] #### [facility] [address] [place] [address] U Legi Agon 04-06-2024 L. pneumophila 1 Ag IA Ql (U) Negative Invalid Interpretation Code Negative [facility] Comment on above: Result Comment: Pres umptive negative for L. pneumophila serogroup 1 antigen in urine, suggesting no recent or current infection. Legionnaires' disease cannot be ruled out since other serogroups and species may also cause disease. Performed at: [facility] [id number] MD Geovanny Chapman Performed By: #### 2 [id number] #### [facility] [address] [place] [address] eGFRon 04-06-2024 eGFR 38 mL/min/1.73 m2 Low >=59 [facility] Comment on above: Performed By: #### 1 [id number] #### [facility] [address] [place] [address] BMPon 04-05-2024 Anion gap [Moles/Vol] 10 mmol/L Normal 6-16 [facility] Comment on above: Performed By: #### 2 [id number] #### [facility] [address] [place] [address] Calcium [Mass/Vol] 8.4 mg/dL Low 8.9-11.1 [facility] Comment on above: Performed By: #### 2 [id number] #### [facility] [address] [place] [address] Chloride [Moles/Vol] 103 mmol/L Normal 101-111 [facility] Comment on above: Performed By: #### 2 [id number] #### [facility] [address] [place] [address] CO2 [Moles/Vol] 30 mmol/L Normal 21-31 [facility] Comment on above: Performed By: #### 2 [id number] #### [facility] [address] [place] [address] Creatinine [Mass/Vol] 1.6 mg/dL High 0.5-1.3 [facility] Comment on above: Performed By: #### 2 [id number] #### [facility] [address] [place] [address] Glucose [Mass/Vol] 133 mg/dL Normal 55-199 [facility] Comment on above: Performed By: #### 2 [id number] #### [facility] [address] [place] [address] Potassium [Moles/Vol] 3.5 mmol/L Normal 3.5-5.3 [facility] Comment on above: Performed By: #### 2 [id number] #### [facility] [address] [place] [address] Sodium [Moles/Vol] 139 mmol/L Normal 135-145 [facility] Comment on above: Performed By: #### 2 [id number] #### [facility] [address] [place] [address] Urea nitrogen [Mass/Vol] 21 mg/dL Normal 5-21 [facility] Comment on above: Performed By: #### 2 [id number] #### [facility] [address] [place] [address] Urea nitrogen/Creatinine [Mass ratio] 13 No Units Normal 10-20 [facility] Comment on above: Performed By: #### 2 [id number] #### [facility] [address] [place] [address] CBC w/ Auto Diffon 4 Basophils/100 WBC (Bld) 0.9 % Normal 0.0-2.0 [facility] Comment on above: Performed By: #### 2 [id number] #### [facility] [address] [place] [address] Basophils/Leukocytes Auto (Bld) [Pure # fraction] 0.1 E9/L Normal 0.0-0.2 [facility] Comment on above: Performed By: #### 2 [id number] #### [facility] [address] [place] [address] Eosinophils (Bld) [#/Vol] 0.3 E9/L Normal 0.0-0.5 [facility] Comment on above: Performed By: #### 2 [id number] #### [facility] [address] [place] [address] Eosinophils/100 WBC (Bld) 6.1 % Normal 0.0-8.0 [facility] Comment on above: Performed By: #### 2 [id number] #### [facility] [address] [place] [address] Erythrocyte distribution width (RBC) [Ratio] 14.7 % High 10.9-14.2 [facility] Comment on above: Performed By: #### 2 [id number] #### [facility] [address] [place] [address] Hematocrit (Bld) [Volume fraction] 28.2 % Low 34.0-46.0 [facility] Comment on above: Performed By: #### 2 [id number] #### [facility] [address] [place] [address] Hemoglobin (Bld) [Mass/Vol] 9.6 g/dL Low 12.0-16.0 [facility] Comment on above: Performed By: #### 2 [id number] #### [facility] [address] [place] [address] Lymphocytes (Bld) [#/Vol] 1.5 E9/L Normal 1.0-4.0 [facility] Comment on above: Performed By: #### 2 [id number] #### [facility] [address] [place] [address] Lymphocytes/100 WBC (Bld) 26.6 % Normal 14.0-50.0 [facility] Comment on above: Performed By: #### 2 [id number] #### [facility] [address] [place] [address] MCH (RBC) [Entitic mass] 31.1 pg Normal 27.0-34.0 [facility] Comment on above: Performed By: #### 2 [id number] #### [facility] [address] [place] [address] MCHC (RBC) [Mass/Vol] 34.2 g/dL Normal 31.4-36.0 [facility] Comment on above: Performed By: #### 2 [id number] #### [facility] [address] [place] [address] MCV (RBC) [Entitic vol] 91.1 fL Normal 80.0-100.0 [facility] Comment on above: Performed By: #### 2 [id number] #### [facility] [address] [place] [address] Monocytes (Bld) [#/Vol] 0.5 E9/L Normal 0.2-1.0 [facility] Comment on above: Performed By: #### 2 [id number] #### [facility] [address] [place] [address] Neutrophils (Bld) [#/Vol] 3.3 E9/L Normal 2.0-7.5 [facility] Comment on above: Performed By: #### 2 [id number] #### [facility] [address] [place] [address] Neutrophils/100 WBC (Bld) 58.3 % Normal 36.0-75.0 [facility] Comment on above: Performed By: #### 2 [id number] #### [facility] [address] [place] [address] Platelet 203.0 E9/L Normal 150.0-500.0 [facility] Comment on above: Performed By: #### 2 [id number] #### [facility] [address] [place] [address] Platelet mean volume (Bld) [Entitic vol] 7.5 fL Normal 6.4-10.8 [facility] Comment on above: Performed By: #### 2 [id number] #### [facility] [address] [place] [address] RBC (Bld) [#/Vol] 3.1 E12/L Low 4.3-5.9 [facility] Comment on above: Performed By: #### 2 [id number] #### [facility] [address] [place] [address] WBC corrected for nucl RBC Auto (Bld) [#/Vol] 5.7 E9/L Normal 4.0-11.0 [facility] Comment on above: Performed By: #### 2 [id number] #### [facility] [address] [place] [address] CHEMISTRYOrdered By: SYSTEM SYSTEM on 04-05-2024 Anion [...] 10 - 20 Remisol Chem Capillary Glucose [facility] 10-3 Glucose [Mass/Vol] 218 mg/dL High 55-99 [facility] Comment on above: Result Comment: Michelle PACHECO Performed By: #### 2 [id number] #### [facility] [address] [place] [address] Glucose [Mass/Vol] 139 mg/dL High 55-99 [facility] Comment on above: Result Comment: Michelle PACHECO Performed By: #### 2 [id number] #### [facility] [address] [place] [address] Glucose [Mass/Vol] 198 mg/dL High 55-99 [facility] Comment on above: Result Comment: Michelle PACHECO Performed By: #### 2 [id number] #### [facility] [address] [place] [address] Glucose [Mass/Vol] 139 mg/dL High 55-99 [facility] Comment on above: Result Comment: Michelle PACHECO Performed By: #### 2 [id number] #### [facility] [address] [place] [address] HEMATOLOGYOrdered By: SYSTEM SYSTEM on 04-05-2024 Basophils/100 [...] [place] e Manageron 04-05-2024 Interdisciplinary Note - Hand Molder Interdisciplinary Note - Hand Molder CRM to room 306 Patient is awake, alert and oriented. Patient verified PCP, DME and insurance. Patient is from home with her Spouse. [place] ride [place]. Patient is an inpatient. She completed IMM 04/04. Patient is here for fever, PNA. Patient is assigned to [employer], see notes. Per patient she has a walker at home. She is current with [facility] care. She declined any needs for further DME or SNF stay. She is pending PT/OT. Patient was provided CRM contact, rickie board updated. CRM following CRM will get updates from [employer] GRAHAM at 10 AM Patient is on [place] oxygen, she does not wear at home and would need desat or weaned before DC Normal [facility] Comment on above: Result Comment: Elec tronically Signed By: Rosalinda Vogel\.br\Date and Time Signed: 04/05/24 09:15 EDT Interdisciplinary Note - José n 04-05-2024 Interdisciplinary Note - OT Interdisciplinary Note - OT Ot [facility] six clicks score = SNF vs HH services. patient requires Min A w/ standing adls/transfers and mod vc for safety w/ transfer mechanics and OT cord safety. Inpatient OT services to follow daily as pt was modified Ind w/ basic adls/transfers/stand ing adls prior to illness. Normal [facility] Interdisciplinary Note - Soc ial Workeron 04-05-2024 Interdisciplinary Note - Certified Scrum Master Interdisciplinary Note - Certified Scrum Master This SW met with patient, her , and her daughter Irma today to assist patient with completing a POA. She named Irma as her primary agent, with her as the first alternate. She did not wish to complete a LW at this time. SW will remain available. Normal [facility] - Microbiology an d Antimicrobial susceptibilityOrdered By: Jasmin Desai on 04-05-2024 Bacteria identified Respiratory culture Nom (Sput) Scant growth of Normal upper respiratory kaity isolated [facility] Magnesiumon 04-05-2024 Magnesium [Mass/Vol] 1.6 mg/dL Normal 1.3-2.4 [facility] Comment on above: Performed By: #### 2 [id number] #### [facility] [address] [place] [address] No Panel InformationOrdered By: Jasmin Gilesashlee on 04-05-2024 GS 2+ epithelial cells Occasional White Blood Cells Occasional Gram Positive Cocci [facility] Procalcitoninon 04-05-2024 Procalcitonin 19.19 ng/mL High .00-.50 [facility] Comment on above: Result Comment: <0.5 [...] to 24 hours. Performed By: #### 2 [id number] #### [facility] [address] [place] [address] eGFRon 04-05-2024 eGFR 32 mL/min/1.73 m2 Low >=59 [facility] Comment on above: Performed By: #### 1 [id number] #### [facility] [address] [place] [address] BNPon 04-04-2024 Natriuretic peptide B (Bld) [Mass/Vol] 161 pg/mL High 5-80 [facility] Comment on above: Performed By: #### 1 [id number] #### [facility] [facility] [address] [place] [address] CBC w/ Auto Diffon RBC size Nom (Bld) NORMAL Invalid Interpretation Code [facility] Comment on above: Performed By: #### 2 [id number] #### [facility] [address] [place] [address] Basophils/100 WBC (Bld) 0.3 % Normal 0.0-2.0 [facility] Comment on above: Performed By: #### 2 [id number] #### [facility] [address] [place] [address] Basophils/Leukocytes Auto (Bld) [Pure # fraction] 0.0 E9/L Normal 0.0-0.2 [facility] Comment on above: Performed By: #### 2 [id number] #### [facility] [address] [place] [address] Eosinophils (Bld) [#/Vol] 0.1 E9/L Normal 0.0-0.5 [facility] Comment on above: Performed By: #### 2 [id number] #### [facility] [address] [place] [address] Eosinophils/100 WBC (Bld) 0.7 % Normal 0.0-8.0 [facility] Comment on above: Performed By: #### 2 [id number] #### [facility] [address] [place] [address] Erythrocyte distribution width (RBC) [Ratio] 14.9 % High 10.9-14.2 [facility] Comment on above: Performed By: #### 2 [id number] #### [facility] [address] [place] [address] Hematocrit (Bld) [Volume fraction] 34.7 % Normal 34.0-46.0 [facility] Comment on above: Performed By: #### 2 [id number] #### [facility] [address] [place] [address] Hemoglobin (Bld) [Mass/Vol] 11.8 g/dL Low 12.0-16.0 [facility] Comment on above: Performed By: #### 2 [id number] #### [facility] [address] [place] [address] Lymphocytes (Bld) [#/Vol] 0.4 E9/L Low 1.0-4.0 [facility] Comment on above: Performed By: #### 2 [id number] #### [facility] [address] [place] [address] Lymphocytes/100 WBC (Bld) 4.7 % Low 14.0-50.0 [facility] Comment on above: Performed By: #### 2 [id number] #### [facility] [address] [place] [address] MCH (RBC) [Entitic mass] 30.9 pg Normal 27.0-34.0 [facility] Comment on above: Performed By: #### 2 [id number] #### [facility] [address] [place] [address] MCHC (RBC) [Mass/Vol] 33.9 g/dL Normal 31.4-36.0 [facility] Comment on above: Performed By: #### 2 [id number] #### [facility] [address] [place] [address] MCV (RBC) [Entitic vol] 91.1 fL Normal 80.0-100.0 [facility] Comment on above: Performed By: #### 2 [id number] #### [facility] [address] [place] [address] Monocytes (Bld) [#/Vol] 0.2 E9/L Normal 0.2-1.0 [facility] Comment on above: Performed By: #### 2 [id number] #### [facility] [address] [place] [address] Neutrophils (Bld) [#/Vol] 7.5 E9/L Normal 2.0-7.5 [facility] Comment on above: Performed By: #### 2 [id number] #### [facility] [address] [place] [address] Neutrophils/100 WBC (Bld) 91.7 % High 36.0-75.0 [facility] Comment on above: Performed By: #### 2 [id number] #### [facility] [address] [place] [address] Platelet mean volume (Bld) [Entitic vol] 7.0 fL Normal 6.4-10.8 [facility] Comment on above: Performed By: #### 2 [id number] #### [facility] [address] [place] [address] Platelets (Bld) [#/Vol] 224.0 E9/L Normal 150.0-500.0 [facility] Comment on above: Performed By: #### 2 [id number] #### [facility] [address] [place] [address] RBC (Bld) [#/Vol] 3.8 E12/L Low 4.3-5.9 [facility] Comment on above: Performed By: #### 2 [id number] #### [facility] [address] [place] [address] WBC corrected for nucl RBC Auto (Bld) [#/Vol] 8.2 E9/L Normal 4.0-11.0 [facility] Comment on above: Performed By: #### 2 [id number] #### [facility] [address] [place] [address] CHEMISTRYOrdered By: SYSTEM SYSTEM on 04-04-2024 Troponin [...] Sensitivity Troponin I Instructions For Use, [place], January 2018) Procalcitonin 16.47 ng/mL High 0.00 [...] High Sensitivity Troponin I Instructions For Use, [employer], January 2018) Troponin HS 65.10 pg/mL Invalid [...] High Sensitivity Troponin I Instructions For Use, [employer] [place], January 2018) Albumin [Mass/Vol] 4.0 g/dL Normal [...] 10 - 20 Remisol Chem CHEMISTRYOrdered By: Cecelia Carrillo on 04-04-2024 Natriuretic peptide B (Bld) [Mass/Vol] 161 pg/mL High 5 - 80 pg/mL [facility] Albumin [Mass/Vol] 4.0 g/dL Normal 3.3-5.0 [facility] Comment on above: Performed By: #### 2 [id number] #### [facility] [address] [place] [address] Albumin/Globulin (S) [Mass conc ratio] 1.3 Normal 1.1-2.2 [facility] Comment on above: Performed By: #### 2 [id number] #### [facility] [address] [place] [address] ALP [Catalytic activity/Vol] 98 Int._Unit/L Normal 21-98 [facility] Comment on above: Performed By: #### 2 [id number] #### [facility] [address] [place] [address] ALT No additional P-5'-P [Catalytic activity/Vol] 9 Int._Unit/L Normal 6-46 [facility] Comment on above: Performed By: #### 2 [id number] #### [facility] [address] [place] [address] Anion gap [Moles/Vol] 14 mmol/L Normal 6-16 [facility] Comment on above: Performed By: #### 2 [id number] #### [facility] [address] [place] [address] AST [Catalytic activity/Vol] 18 Int._Unit/L Normal 5-43 [facility] Comment on above: Performed By: #### 2 [id number] #### [facility] [address] [place] [address] Bilirubin [Mass/Vol] 0.7 mg/dL Normal 0.0-1.1 [facility] Comment on above: Performed By: #### 2 [id number] #### [facility] [address] [place] [address] Calcium [Mass/Vol] 9.3 mg/dL Normal 8.9-11.1 [facility] Comment on above: Performed By: #### 2 [id number] #### [facility] [address] [place] [address] Chloride [Moles/Vol] 100 mmol/L Low 101-111 [facility] Comment on above: Performed By: #### 2 [id number] #### [facility] [address] [place] [address] CO2 [Moles/Vol] 28 mmol/L Normal 21-31 [facility] Comment on above: Performed By: #### 2 [id number] #### [facility] [address] [place] [address] Creatinine [Mass/Vol] 1.9 mg/dL High 0.5-1.3 [facility] Comment on above: Performed By: #### 2 [id number] #### [facility] [address] [place] [address] Globulin (S) [Mass/Vol] 3.1 g/dL Normal 1.4-4.0 [facility] Comment on above: Performed By: #### 2 [id number] #### [facility] [address] [place] [address] Glucose [Mass/Vol] 232 mg/dL High 55-199 [facility] Comment on above: Performed By: #### 2 [id number] #### [facility] [address] [place] [address] Potassium [Moles/Vol] 3.7 mmol/L Normal 3.5-5.3 [facility] Comment on above: Performed By: #### 2 [id number] #### [facility] [address] [place] [address] Protein [Mass/Vol] 7.1 g/dL Normal 6.0-7.8 [facility] Comment on above: Performed By: #### 2 [id number] #### [facility] [address] [place] [address] Sodium [Moles/Vol] 138 mmol/L Normal 135-145 [facility] Comment on above: Performed By: #### 2 [id number] #### [facility] [address] [place] [address] Urea nitrogen [Mass/Vol] 24 mg/dL High 5-21 [facility] Comment on above: Performed By: #### 2 [id number] #### [facility] [address] [place] [address] Urea nitrogen/Creatinine [Mass ratio] 13 No Units Normal 10-20 [facility] Comment on above: Performed By: #### 2 [id number] #### [facility] [address] [place] [address] COAGULATIONOrdered By: Damion Grigsby on 04-04-2024 aPTT Coag (PPP) [Time] 36.3 s Normal 25.1 - 36.5 second(s) [facility] Comment on above: Interpretive Data: P arameter 15 days - 4 weeks 1 - [...] the same coagulation reagent and instrumentation as [facility]. Currently there are no coagulation studies available worldwide for children to 14 days, and no normal ranges. Heparin therapeutic range (represented by Anti-Factor Xa activity of 0.2 - 0.4 U/mL) corresponds to PTT of 56.6 - 109.0 sec. INR Coag (PPP) [Relative time] 1.09 {INR} Invalid Interpretation Code [facility] Comment on above: Interpretive Data: I NR results are specifically intended to assess patients stabilized on long-term Anticoagulation therapy suggested INR s Less Intensive Anticoagulation 2.0 3.0 Conventional Range 3.0 4.5 PT Coag (PPP) [Time] 12.2 s Normal 9.4 - 1 2.5 second(s) [facility] Comment on [...] the same coagulation reagent and instrumentation as [facility]. Currently there are no [...] Hill MD Transcribed by: SHALOM Technologist: RUTH Technical Comments Rectal Contrast Given? No Oral [...] MD Transcribed by: SHALOM Technologist: RUTH Normal [facility] Capillary Glucose POCon 03-08 Glucose [Mass/Vol] 158 mg/dL High 55-99 [facility] Comment on above: Result Comment: Michelle PACHECO Performed By: #### 2 [id number] #### [facility] [address] [place] [address] Glucose [Mass/Vol] 128 mg/dL High 55-99 [facility] Comment on above: Result Comment: Michelle PACHECO Performed By: #### 2 [id number] #### [facility] [address] [place] [address] Glucose [Mass/Vol] 100 mg/dL High 55-99 [facility] Comment on above: Result Comment: Michelle PACHECO Performed By: #### 2 [id number] #### [facility] [address] [place] [address] Glucose [Mass/Vol] 154 mg/dL High 55-99 [facility] Comment on above: Result Comment: Michelle PACHECO Performed By: #### 2 [id number] #### [facility] [address] [place] [address] Glucose [Mass/Vol] 230 mg/dL High 55-99 [facility] Comment on above: Result Comment: Michelle erickson RN/MD Performed By: #### 2 [id number] #### [facility] [address] [place] [address] ED Clinical Summaryon 2023 ED Clinical Summary ED Clinical Summary [address] [address] ED Clinical Summary Person Information Name: NADIA PATTERSON Swapna/[facility] Age: 78 Years : 1945 Sex: Female Language: Russian PCP: HARPAL HAYES MD Marital Status: Phone: [phone] Visit Id: Visit Reason: Respiratory problem; Cough; Shortness of breath; fever Speciality: Acuity: 1 Enc Type: Inpatient Med Service: Medical Arrival: 04/04/2024 00:25:34 Discharge: LOS: 000 02:51 Checkin: 04/04/2024 00:25:34 Checkout: 04/04/2024 03:16:58 Dispo Type: Admitted as IP to this [facility] EVENTS: Event Name Event [...] Labs Inlab 04/04/2024 03:05:34 04/04/2024 03:05:34 ADDRESS: [address] [place] [id number] [facility] NOTES: MEDICAL INFORMATION: Prescriptions Given: Medications to [...] mg sublingu (more content not included)... Normal [facility] ED Note-Physicianon 04-04-20 ED Note-Physician ED Note-Physician Basic Information Time Seen: estefani Jeancarlosomkar Brand 04/04/2024 00:30 Chief Complaint states was started [...] and Complexity of Problems Differential Diagnosis: [] [facility] Data External documents reviewed: [] My EKG [...] Therapy PT & PTT Rapid COVID Antigen ([facility] Sputum Culture Troponin Troponin 1 Hr. Troponin 3 Hr. UA with Cult Rflx XR Chest Single View Medications Administered Given GenDil 100 mL + [id number] [F] 1000 mg, IV Piggyback NS 500 ml Bolus, 500 mL, IV Sodium Chloride 0.9% intravenous solution 50 mL + ceftriaxone additive 1000 mg, IV Piggyback Disposition Plan Patient Discharge Condition Fair Discharge Disposition Admitted Discharge Prescription List Prescriptions No active prescription medications Follow-up No qualifying data available Problem List/Past Medical History Ongoing Cerebrovascular s (more content not included)... Normal [facility] Comment on above: Result Comment: Elec tronically Signed By: Terry Delvalle DO\Date and Time Signed: 04/04/24 02:18 EDT ED Patient Education Noteon 04-04-2024 ED Patient Education Note ED Patient Education Note Normal [facility] ED Patient Summaryon 024 ED Patient Summary ED Patient Summary [address] [address] Patient Discharge Instructions Person Information Name: NADIA [...] Information Primary Provider: Terry Delvalle DO Advanced Invoice Control Clerk:None The exam and treatment you received in the Emergency Department were for an urgent problem and are not intended as complete care. It is important that you follow up with a doctor, nurse practitioner, or physician???s employment legal assistant for ongoing care. If your symptoms [...] opioids can be used to help relieve qjijnpyv-en-nzfaln pain and are often prescribed following a [...] of opioids (more content not included)... Normal [facility] EMS Documentationon 04-04-20 EMS Documentation Report Please click on link to see report Normal [facility] Comment on above: Result Comment: Miss ing Attachment - attachment exceeds size limitation [id number] Can be viewed in source system Extra Hensley 04-04-2024 WB Tube Collected Yes Invalid Interpretation Code [facility] Comment on above: Performed By: #### 1 [id number] #### [facility] [address] [place] [address] Ferritinon 04-04-2024 Ferritin [Mass/Vol] 58 ng/mL Normal 11-307 [facility] Comment on above: Performed By: #### 2 [id number] #### [facility] [address] [place] [address] Folateon 04-04-2024 Folate [Mass/Vol] 6.3 ng/mL Low >=6.7 [facility] Comment on above: Performed By: #### 2 [id number] #### [facility] [address] [place] [address] HEMATOLOGYOrdered By: SYSTEM SYSTEM on 04-04-2024 Basophils/100 [...] 4 Influenzae A Ag Negative Normal Negative [facility] Comment on above: Performed By: #### 1 [id number] #### [facility] [address] [place] [address] Influenzae B Ag Negative Normal Negative [facility] Comment on above: Result Comment: Test sensitivity and specificity vary for age group, specimen type, antigen types, and prevalence of disease. Test results must be evaluated in conjunction with other clinical data available to the physician. Individuals who received nasally administered Influenza A vaccine may have positive test results up to 3 days after vaccination. Performed By: #### 1 [id number] #### [facility] [address] [place] [address] Interdisciplinary Note - [place] e Manageron 04-04-2024 Interdisciplinary Note - Hand Molder Interdisciplinary Note - Hand Molder CRM to room 306 Patient is awake, alert and oriented. Patient verified PCP, DME and insurance. Patient is from home with her Spouse. [place] a ride [place]. Patient is an inpatient. She completed IMM 04/04. Patient is here for fever, PNA. Patient is assigned to [employer], see notes. Per patient she has a walker at home. She is current with [facility]. She declined any needs for further DME or SNF stay. Patient was provided CRM contact, rickie board updated. CRM following CRM will get updates from [employer] at 10 AM Normal [facility] Comment on above: Result Comment: Elec tronically Signed By: Rosalinda Vogel\.br\Date and Time Signed: 04/04/24 10:24 EDT Ironon 04-04-2024 Iron [Mass/Vol] 19 microgram/dL Low 35-153 [facility] Comment on above: Performed By: #### 2 [id number] #### [facility] [address] [place] [address] LDHon 04-04-2024 LDH 318 Int._Unit/L High 93-218 [facility] Comment on above: Performed By: #### 2 [id number] #### [facility] [address] [place] [address] Laboratory - Microbiology an d Antimicrobial susceptibilityOrdered By: Jasmin Desai on 04-04-2024 Bacteria identified Cx Nom (U) 200 cfu/ml Mixed skin contaminants [facility] MRSA DNA DIETER+probe Ql (Unsp spec) MRSA Negative. [facility] Lactic Acidon 04-04-2024 Lactic Acid Lvl 2.1 mmol/L Normal 0.5-2.2 [facility] Comment on above: Performed By: #### 2 [id number] #### Alex [facility] [address] [place] [address] Lactic Acid Lvl 2.7 mmol/L High 0.5-2.2 [facility] Comment on above: Performed By: #### 2 [id number] #### Alex [facility] [address] [place] [address] MICRO OTHER TESTSOrdered By: Damion Grigsby on 04-04-2024 Influenzae A Ag Negative (04/04/24 1:00 AM) Normal Negative [facility] Influenzae B Ag Negative 2 (04/04/24 1:00 AM) Normal Negative [facility] Comment on [...] NEG Ctl Pass (04/04/24 1:00 AM) Normal [facility] Rapid COV Int POS Ctl Pass (04/04/24 1:00 AM) Normal [facility] SARS-CoV+SARS-CoV-2 (COVID-19) Ag IA.rapid Ql (Resp) Not Detected 18 (04/04/24 1:00 AM) Normal Not Detected [facility] Comment on above: Interpretive Data: T he [employer] Veritor System for Rapid Detection of SARS-CoV-2 [...] other viruses or pathogens; and, in the [facility], this test is only authorized for the [...] ys. Final to follow at 7 days. [facility] PT & PTTon 04-04-2024 aPTT Coag (PPP) [Time] 36.3 second(s) Normal 25.1-36.5 [facility] Comment on above: Result Comment: [...] the same coagulation reagent and instrumentation as [facility]. Currently there are no coagulation studies available worldwide for children to 14 days, and no normal ranges. Heparin therapeutic range (represented by Anti-Factor Xa activity of 0.2 - 0.4 U/mL) corresponds to PTT of 56.6 - 109.0 sec. Performed By: #### 1 [id number] #### [facility] [address] [place] [address] INR Coag (PPP) [Relative time] 1.09 {INR} Invalid Interpretation Code [facility] Comment on above: Result Comment: INR results are specifically intended to assess patients stabilized on long-term Anticoagulation therapy suggested INR???s ???Less Intensive Anticoagulation??? 2.0 ??? 3.0 Conventional Range 3.0 ??? 4.5 Performed By: #### 1 [id number] #### [facility] [address] [place] [address] PT Coag (PPP) [Time] 12.2 second(s) Normal 9.4-12.5 [facility] Comment on above: Result Comment: [...] ranges were obtained from a study by laury Soto prepared from 1437 samples obtained at 7 different centers using the same coagulation reagent and instrumentation as [facility]. Currently there are no coagulation studies available worldwide for children to 14 days, and no normal ranges. Performed By: #### 1 [id number] #### [facility] [address] [place] [address] Procalcitoninon 04-04-2024 Procalcitonin 16.47 ng/mL High .00-.50 [facility] Comment on above: Result Comment: <0.5 [...] to 24 hours. Performed By: #### 2 [id number] #### [facility] [address] [place] [address] Procalcitonin 6.29 ng/mL High .00-.50 [facility] Comment on above: Result Comment: <0.5 [...] to 24 hours. Performed By: #### 2 [id number] #### [facility] [address] [place] [address] Rapid COVID Antigen ([facility])on 04-04-2024 Rapid COV Int NEG Ctl Pass Normal [facility] Comment on above: Performed By: #### 2 [id number] #### [facility] [address] [place] [address] Rapid COV Int POS Ctl Pass Normal [facility] Comment on above: Performed By: #### 2 [id number] #### [facility] [address] [place] [address] SARS-CoV+SARS-CoV-2 (COVID-19) Ag IA.rapid Ql (Resp) Not detected Normal Not Detected [facility] Comment on above: Result Comment: The [employer] Veritor??? System for Rapid Detection of SARS-CoV-2 [...] other viruses or pathogens; and, in the [facility], this test is only authorized for the duration of the declaration that circumstances exist justifying the authorization of emergency use of in vitro diagnostics for detection and/or diagnosis of the virus that causes COVID-19 under Section 564(b)(1) of the Act, 21 U.S.C. ??? 360bbb-3(b)(1), unless the authorization is terminated or revoked sooner. Performed By: #### 2 [id number] #### [facility] [address] [place] [address] Reference Laboratory Testing Ordered By: [facility] DomainUser on 04-04-2024 L. pneumophila 1 Ag IA Ql (U) Negative Invalid Interpretation Code Negative [facility] [employer] Comment on above: Result Comment: Pres umptive negative for L. pneumophila serogroup 1 antigen in urine, suggesting no recent or current infection. Legionnaires' disease cannot be ruled out since other serogroups and species may also cause disease. Performed at: [facility] [id number] MD Geovanny Chapman Respiratory Panel by PCRon Adenovirus DNA DIETER+non-probe Ql (Nph) Not detected Normal [facility] Comment on above: Result Comment: Test ing was performed using nucleic acid amplification including Influenza A, Influenza A H1, Influenza A H3, Influenza B, RSV A, RSV B, Adenovirus, Human Metapneumovirus, Parainfluenza 1,2,3, and 4, Rhinovirus, Bordetella parapertussis/bronchiseptica, Bordetella holmesii, and Bordetella pertussis. Performed By: #### 1 [id number] #### [facility] [address] [place] [address] B. parapertussis DNA DIETER+probe Ql (Upper resp) Not detected Normal Not Detected [facility] Comment on above: Performed By: #### 1 [id number] #### [facility] [address] [place] [address] B. pertussis DNA DIETER+probe Ql (Upper resp) Not detected Normal Not Detected [facility] Comment on above: Performed By: #### 1 [id number] #### [facility] [address] [place] [address] FLUAV H1 RNA DIETER+non-probe Ql (Nph) Not detected Normal [facility] Comment on above: Performed By: #### 1 [id number] #### [facility] [address] [place] [address] FLUAV H3 RNA DIETER+non-probe Ql (Nph) Not detected Normal [facility] Comment on above: Performed By: #### 1 [id number] #### [facility] [address] [place] [address] FLUAV RNA DIETER+non-probe Ql (Nph) Not detected Normal [facility] Comment on above: Performed By: #### 1 [id number] #### [facility] [address] [place] [address] FLUBV RNA DIETER+non-probe Ql (Nph) Not detected Normal [facility] Comment on above: Performed By: #### 1 [id number] #### [facility] [address] [place] [address] Human Metapneumovirus Not detected Normal [facility] Comment on above: Result Comment: This test result should be correlated with clinical presentations and medical history by a healthcare provider to determine its clinical significance. Performed By: #### 1 [id number] #### [facility] [address] [place] [address] Parainfluenza virus 1 RNA DIETER+non-probe Ql (Nph) Not detected Normal [facility] Comment on above: Performed By: #### 1 [id number] #### [facility] [address] [place] [address] Parainfluenza virus 2 RNA DIETER+non-probe Ql (Nph) Not detected Normal [facility] Comment on above: Performed By: #### 1 [id number] #### [facility] [address] [place] [address] Parainfluenza virus 3 RNA DIETER+non-probe Ql (Nph) Not detected Normal [facility] Comment on above: Performed By: #### 1 [id number] #### [facility] [address] [place] [address] Parainfluenza virus 4 RNA DIETER+non-probe Ql (Nph) Not detected Normal [facility] Comment on above: Performed By: #### 1 [id number] #### [facility] [address] [place] [address] Resp Panel Intrl QC Pass Normal [facility] Comment on above: Performed By: #### 1 [id number] #### [facility] [address] [place] [address] Rhinovirus+Enterovirus RNA DIETER+non-probe Ql (Nph) Not detected Normal [facility] Comment on above: Performed By: #### 1 [id number] #### [facility] [address] [place] [address] RSV RNA DIETER+non-probe Ql (Nph) Not detected Normal [facility] Comment on above: Performed By: #### 1 [id number] #### [facility] [address] [place] [address] Retic Counton 04-04-2024 Reticulocytes/100 RBC (Bld) 1.5 % Normal 0.5-2.2 [facility] Comment on above: Performed By: #### 2 [id number] #### [facility] [address] [place] [address] TIBC Calculatedon 04-04-2024 Iron binding capacity [Mass/Vol] 323 microgram/dL Normal 250-400 [facility] Comment on above: Performed By: #### 1 [id number] #### [facility] [address] [place] [address] Transferrin [Mass/Vol] 231 mg/dL Normal 200-370 [facility] Comment on above: Performed By: #### 1 [id number] #### [facility] [address] [place] [address] TSH With T4fr Reflexon 04-04 TSH Qn 2.22 m[IU]/L Normal 0.34-5.60 [facility] Comment on above: Performed By: #### 1 [id number] #### [facility] [address] [place] [address] Troponinon 04-04-2024 Troponin HS 43.00 pg/mL Abnormal .-.10 [facility] Comment on above: Result Comment: Crit [...] High Sensitivity Troponin I Instructions For Use, One SeasonJanuary 2018) Performed By: #### 2 [id number] #### [facility] [address] [place] [address] Troponin 0 Hr.on 04-04-2024 Troponin HS 24.50 pg/mL Normal 10.10-27.10 [facility] Comment on above: Result Comment: The 95% CI (Confidence Interval) PPV (Positive Predictive Value) for myocardial infarction in females is 38 pg/mL, in males 51 pg/mL. The results should be used in conjunction with clinical conditions of myocardial infarction. ([email or web address] High Sensitivity Troponin I Instructions For Use, One SeasonJanuary 2018) Performed By: #### 1 [id number] #### [facility] [address] [place] [address] Troponin 1 Hr.on 04-04-2024 Troponin HS 65.10 pg/mL Abnormal 10.10-27.10 [facility] Comment on above: Result Comment: Crit [...] High Sensitivity Troponin I Instructions For Use, One SeasonJanuary 2018) Performed By: #### 1 [id number] #### [facility] [address] [place] [address] Troponin 3 Hr.on 04-04-2024 Troponin HS 67.80 pg/mL Abnormal 10.10-27.10 [facility] Comment on above: Result Comment: Crit [...] Sensitivity Troponin I Instructions For Use, [place], January 2018) Performed By: #### 1 [id number] #### [facility] [address] [place] [address] UA with Cult Rflxon 04-04-20 24 Bilirubin Ql (U) Negative Normal Negative [facility] Comment on above: Performed By: #### 4 [id number] #### [facility] [address] [place] [address] Clarity (U) Turbid Abnormal Clear [facility] Comment on above: Performed By: #### 4 [id number] #### [facility] [address] [place] [address] Color (U) Light-Yellow Normal Yellow [facility] Comment on above: Result Comment: Micr oscopic readings are only performed on those samples that meet specific criteria set forth by [facility]. Performed By: #### 4 [id number] #### [facility] [address] [place] [address] Epithelial cells.squamous Auto (Urine sed) [#/Area] 0-2 Invalid Interpretation Code [facility] Comment on above: Performed By: #### 4 [id number] #### [facility] [address] [place] [address] Glucose Ql (U) Negative Normal Negative [facility] Comment on above: Performed By: #### 4 [id number] #### [facility] [address] [place] [address] Hemoglobin Auto test strip (U) [Mass/Vol] Trace Abnormal Negative [facility] Comment on above: Performed By: #### 4 [id number] #### [facility] [address] [place] [address] Ketones Auto test strip Ql (U) Negative Normal Negative [facility] Comment on above: Performed By: #### 4 [id number] #### [facility] [address] [place] [address] Leukocyte esterase Auto test strip Ql (U) 500 Clint/uL Abnormal Negative [facility] Comment on above: Performed By: #### 4 [id number] #### [facility] [address] [place] [address] Mucus Auto Ql (U) Trace Normal Negative [facility] Comment on above: Performed By: #### 4 [id number] #### [facility] [address] [place] [address] Nitrite Auto test strip Ql (U) 1+ mg/dL Abnormal Negative [facility] Comment on above: Performed By: #### 4 [id number] #### [facility] [address] [place] [address] pH (U) 6.0 [pH] Invalid Interpretation Code 5.0-9.0 [facility] Comment on above: Performed By: #### 4 [id number] #### [facility] [address] [place] [address] Protein Ql (U) Trace Abnormal Negative [facility] Comment on above: Performed By: #### 4 [id number] #### [facility] [address] [place] [address] RBC Ql (U) 4-20 Abnormal 0-3 [facility] Comment on above: Performed By: #### 4 [id number] #### [facility] [address] [place] [address] Specific gravity (U) [Rel density] 1.018 Invalid Interpretation Code 1.005-1.030 [facility] Comment on above: Performed By: #### 4 [id number] #### [facility] [address] [place] [address] Urobilinogen (U) [Mass/Vol] Negative Normal Negative [facility] Comment on above: Performed By: #### 4 [id number] #### [facility] [address] [place] [address] WBC Auto (Urine sed) [#/Area] >75 Abnormal 0-5 [facility] Comment on above: Performed By: #### 4 [id number] #### [facility] [address] [place] [address] Type of Urine collection method Clean Catch Normal [facility] Comment on above: Performed By: #### 4 [id number] #### [facility] [address] [place] [address] URINALYSISOrdered By: Lee Ann forrest on 04-04-2024 [...] that meet specific criteria set forth by [facility]. Epithelial cells.squamous Auto (Urine [...] Urobilinogen (U) [Mass/Vol] Negative Normal Negativemg/ dL [facility] [place] UA Auto SS WBC Auto (Urine sed) [#/Area] >75 *ABN* (04/04/24 1:08 PM) Invalid Interpretation Code 0-5 [facility] [place] UA Auto SS URINALYSISOrdered By: Mi Delvalle on 04-04-2024 UA Spec Desc Clean Catch (04/04/24 1:08 PM) Normal [facility] [place] UA Auto SS Vit B12on 04-04-2024 Cobalamin (Vitamin B12) [Mass/Vol] 156 pg/mL Normal 50-1500 [facility] Comment on above: Performed By: #### 2 [id number] #### [facility] [address] [place] [address] XR Chest Single Viewon 04-04 XR Chest [...] Juan Hill MD Transcribed by: SHALOM Technologist: MAITE Technical Comments Radiation Dose: Ka,r in mGy = na DAP = na Normal [facility] eGFRon 04-04-2024 eGFR 26 mL/min/1.73 m2 Low >=59 [facility] Comment on above: Performed By: #### 1 [id number] #### [facility] [address] [place] [address] Laboratory - Chemistry and C hemistry - challengeon 01-16-2024 Bilirubin Ql (U) Negative NEGATIVE [facility] Glucose (U) [Mass/Vol] Negative NEGATIVE [facility] Ketones Ql (U) Negative NEGATIVE [facility] pH (U) 6.5 [pH] 5.0-9.0 [facility] Specific gravity (U) [Rel density] 1.015 1.005-1.025 [facility] Urobilinogen Qn (U) 0.2 {Macie'U}/dL 0.2-1.0 [facility] Laboratory - Microbiology an d Antimicrobial susceptibilityon 01-16-2024 Bacteria identified Cx Nom (U) [facility] Laboratory - Specimen inform ationon 01-16-2024 Appearance (U) CLEAR CLEAR [facility] Color (U) LT. YELLOW YELLOW [facility] Laboratory - Urinalysison Leukocyte esterase Test strip Ql (U) TRACE Abnormal NEGATIVE [facility] Mucus Ql (Urine sed) NONE SEEN NONE SEEN [facility] [place] [facility] Nitrite Ql (U) Negative NEGATIVE [facility] Protein Ql (U) Negative NEG/TRACE [facility] No Panel Informationon 01-15 Miscellaneous Test Comment See comment [facility] Comment on above: Specimen Source: UCC - Urine,Clean Catch - Urine CC - 200.100 Urine Bacteria TRACE #/HPF Abnormal NONE SEEN [facility] Urine Culture Reflexed YES [facility] Urine Microscopic Review YES [facility] Urine Occult Blood Negative NEGATIVE [facility] Urine Other Casts NONE SEEN #/LPF NONE SEEN [facility] Urine Other Crystals None Seen #/HPF None Seen [facility] Urine RBC NONE SEEN #/HPF 0-2 [facility] Urine Squamous Epithelial Cells RARE #/LPF NONE/RARE [facility] Urine WBC 5-10 #/HPF Abnormal NONE SEEN [facility] Erythrocyte distribution wid th Auto (RBC) [Ratio]on 12-13-2023 Erythrocyte distribution width (RBC) [Ratio] 13.9 % 11.0-15.0 [facility] Estimated glomerular filtrat ion rate (GFR) non- Americanon 12-13-2023 GFR/1.73 sq M.predicted among non-blacks MDRD (S/P/Bld) [Vol rate/Area] 30 mL/min/{1.73_m2} Low >=60 [facility] Hematocrit Auto (Bld) [Volum e fraction]on 12-13-2023 Hematocrit (Bld) [Volume fraction] 36.2 % 36.0-48.0 [facility] Hemoglobin [Mass/volume] in Bloodon 12-13-2023 Hemoglobin (Bld) [Mass/Vol] 11.5 g/dL Low 12.0-16.0 [facility] Iron binding capacity [Mass/ volume] in Serum or Plasmaon 12-13-2023 Iron binding capacity [Mass/Vol] 310.0 ug/dL 250.0-450.0 [facility] Iron saturation [Mass Fracti on] in Serum or Plasmaon 12-13-2023 Iron saturation [Mass fraction] 11.3 % [facility] Laboratory - Chemistry and C hemistry - challengeon 12-13-2023 Albumin [Mass/Vol] 3.3 g/dL Low 3.4-5.0 [facility] Calcium [Mass/Vol] 9.4 mg/dL 8.5-10.1 [facility] Chloride [Moles/Vol] 102 mmol/L 98-107 [facility] [place] [facility] CO2 [Moles/Vol] 31.0 mmol/L 21.0-32.0 [facility] Creatinine [Mass/Vol] 1.67 mg/dL High 0.55-1.02 [facility] Ferritin [Mass/Vol] 32.0 ng/mL 8.0-252.0 [facility] GFR/1.73 sq M.predicted MDRD (S/P/Bld) [Vol rate/Area] 36 mL/min/{1.73_m2} Low >=60 [facility] Glucose [Mass/Vol] 118 mg/dL High 74-106 [facility] Iron [Mass/Vol] 35.0 ug/dL Low 50.0-170.0 [facility] Magnesium [Mass/Vol] 1.8 mg/dL 1.8-2.4 [facility] Potassium [Moles/Vol] 4.1 mmol/L 3.5-5.1 [facility] Sodium [Moles/Vol] 140 mmol/L 136-145 [facility] Urate [Mass/Vol] 7.5 mg/dL High 2.6-6.0 [facility] Urea nitrogen [Mass/Vol] 22.0 mg/dL High 7.0-18.0 [facility] Urea nitrogen/Creatinine [Mass ratio] 13.2 mg/mg [facility] Bilirubin Ql (U) Negative NEGATIVE [facility] Glucose (U) [Mass/Vol] Negative NEGATIVE [facility] Ketones Ql (U) Negative NEGATIVE [facility] pH (U) 6.5 [pH] 5.0-9.0 [facility] Specific gravity (U) [Rel density] 1.010 1.005-1.025 [facility] Urobilinogen Qn (U) 0.2 {Macie'U}/dL 0.2-1.0 [facility] Laboratory - Specimen inform ationon 12-13-2023 Appearance (U) CLEAR CLEAR [facility] Color (U) LT. YELLOW YELLOW [facility] Laboratory - Urinalysison Leukocyte esterase Test strip Ql (U) TRACE Abnormal NEGATIVE [facility] Mucus Ql (Urine sed) NONE SEEN NONE SEEN [facility] [place] [facility] Nitrite Ql (U) Negative NEGATIVE [facility] Protein (U) [Mass/Vol] 9.8 mg/dL <=11.9 [facility] Protein Ql (U) Negative NEG/TRACE [facility] Leukocytes [#/volume] correc olamide for nucleated erythrocytes in Blood by Automated counon 12-13-2023 WBC corrected for nucl RBC Auto (Bld) [#/Vol] 6.2 10 3/uL 4.0-11.0 [facility] MCH Auto (RBC) [Entitic mass ]on 12-13-2023 MCH (RBC) [Entitic mass] 29.6 pg 26.7-34.0 [facility] MCHC Auto (RBC) [Mass/Vol]on 12-13-2023 MCHC (RBC) [Mass/Vol] 31.8 g/dL 29.9-35.2 [facility] MCV Auto (RBC) [Entitic vol] on 12-13-2023 MCV (RBC) [Entitic vol] 93.1 fL 81.0-99.0 F [facility] No Panel Informationon 12-12 25-Hydroxy Vitamin D Total 75.0 ng/mL [facility] Comment on above: <20 ng/mL Vit D defi cient20-<30 ng/mL Vit D [id number] ng/mL Vit D sufficient>100 ng/mL Potential Toxicity Parathyroid Hormone (Intact) 39 pg/mL 15-65 [facility] Comment on above: Performed at: - [address] [id number] Director: Jerry Joseph PhD, Phone: [phone] Phosphorus Level 3.5 mg/dL 2.6-4.7 [facility] Urine Bacteria SMALL #/HPF Abnormal NONE SEEN [facility] Urine Occult Blood Negative NEGATIVE [facility] Urine Other Casts NONE SEEN #/LPF NONE SEEN [facility] Urine Other Crystals None Seen #/HPF None Seen [facility] Urine Random Creatinine 27.29 mg/dL 20.0 0-300.0 0 [facility] Urine RBC 0-2 #/HPF 0-2 [facility] Urine Squamous Epithelial Cells FEW #/LPF Abnormal NONE/RARE [facility] Urine WBC 5-10 #/HPF Abnormal NONE SEEN [facility] Platelet mean volume Auto (B ld) [Entitic vol]on 12-13-2023 Platelet mean volume (Bld) [Entitic vol] 8.7 fL Low 9.5-13.5 [facility] Platelets Auto (Bld) [#/Vol] on 12-13-2023 Platelets (Bld) [#/Vol] 293 10 3/uL 150-450 [facility] RBC Auto (Bld) [#/Vol]on RBC (Bld) [#/Vol] 3.89 10 6/uL Low 4.20-5.40 [facility] Serum or plasma anion gap de terminationon 12-13-2023 Anion gap [Moles/Vol] 11.1 mmol/L [facility] Urine protein/creatinine rat ioon 12-13-2023 Protein/Creatinine (U) [Ratio] 0.36 [facility] Office Visiton 11-07-2023 Follow-up visit [id number] Nadia Patterson 1945 F Date Provider Department Center 11/07/2023 JOSH URIBE DOMONIQUE [facility] No family history on file Level of Service:72526 CO OFFICE/OUTPATIENT ESTABLISHED LOW MDM 20 MIN Normal [facility] Office Visiton 08-10-2023 Follow-up visit [id number] Nadia Patterson 1945 F Date Provider Department Center 08/10/2023 JOSH URIBE DOMONIQUE [facility] No family history on file Level of Service:66831 CO OFFICE/OUTPATIENT ESTABLISHED MOD MDM 30 MIN Normal [facility] Orders Onlyon 08-10-2023 Orders Only [id number] Nadia Patterson 1945 F Date Provider Department [place] 08/10/2023 FRANKLIN MAY DOMONIQUE [facility] No family history on file Normal [facility] Discharge Instructionson Discharge Instructions [id number] 2#1.00TIFF Normal [facility] BMPon 08-02-2023 Anion gap [Moles/Vol] 11 mmol/L Normal -16 [facility] Comment on above: Performed By: #### 1 [id number], [id number], [id number] ####[facility] [address] [place] [address] BUN/Creat Ratio 15 No Units Normal 10-20 [facility] Comment on above: Performed By: #### 1 [id number], 6956665, [id number] ####[facility] [address] [place] [address] Calcium [Mass/Vol] 9.1 mg/dL Normal 8.9-11.1 [facility] Comment on above: Performed By: #### 1 [id number], 8627151, 2967218 ####[facility] [address] [place] [address] Chloride [Moles/Vol] 106 mmol/L Normal 101-111 [facility] Comment on above: Performed By: #### 1 5891683, 5709433, 1354982 ####[facility] [address] [place] [address] CO2 [Moles/Vol] 29 mmol/L Normal 21-31 [facility] Comment on above: Performed By: #### 1 [id number], 8479708, 9135017 ####[facility] [address] [place] [address] Creatinine [Mass/Vol] 1.5 mg/dL High 0.5-1.3 [facility] Comment on above: Performed By: #### 1 8164806, 2200694, 5304395 ####[facility] [address] [place] [address] Glucose [Mass/Vol] 128 mg/dL Normal 55-199 [facility] Comment on above: Performed By: #### 1 1761761, 7527157, 9231898 ####[facility] [address] [place] [address] Potassium [Moles/Vol] 4.0 mmol/L Normal 3.5-5.3 [facility] Comment on above: Performed By: #### 1 7863348, 9930714, 2348005 ####[facility] [address] [place] [address] Sodium [Moles/Vol] 142 mmol/L Normal 135-145 [facility] Comment on above: Performed By: #### 1 1427038, 9439038, 2148545 ####[facility] [address] [place] [address] Urea nitrogen [Mass/Vol] 22 mg/dL High 5-21 [facility] Comment on above: Performed By: #### 1 7840665, 7956264, 7983841 ####[facility] [address] [place] [address] CBC w/ Auto Diffon 4 Basophil Absolute 0.1 E9/L Normal 0.0-0.2 [facility] Comment on above: Performed By: #### 1 7378417, 3744453, 1154544 ####[address] [address] Basophils/100 WBC (Bld) 1.1 % Normal 0.0-2.0 [facility] Comment on above: Performed By: #### 1 9154681, 8229305, 8435131 ####[address] [address] Eos Absolute 0.2 E9/L Normal 0.0-0.5 [facility] Comment on above: Performed By: #### 1 9085623, 7505540, 3172048 ####[address] [address] Eosinophils/100 WBC (Bld) 4.7 % Normal 0.0-8.0 [facility] Comment on above: Performed By: #### 1 7949207, 9461279, 0102341 ####[address] [address] Erythrocyte distribution width (RBC) [Ratio] 14.8 % High 10.9-14.2 [facility] Comment on above: Performed By: #### 1 4543793, 0942725, 5992319 ####[address] [address] Hematocrit (Bld) [Volume fraction] 33.0 % Low 34.0-46.0 [facility] Comment on above: Performed By: #### 1 5307277, 9040699, 2577363 ####[address] [address] Hemoglobin (Bld) [Mass/Vol] 10.7 g/dL Low 12.0-16.0 [facility] Comment on above: Performed By: #### 1 8607598, 9124409, 6516950 ####[address] [address] Lymph Absolute 2.1 E9/L Normal 1.0-4.0 [facility] Comment on above: Performed By: #### 1 4534765, 5551389, 8172349 ####[address] [address] Lymphocytes/100 WBC (Bld) 39.9 % Normal 14.0-50.0 [facility] Comment on above: Performed By: #### 1 6848047, 4326284, 8344253 ####[address] [address] MCH (RBC) [Entitic mass] 29.1 pg Normal 27.0-34.0 [facility] Comment on above: Performed By: #### 1 2678355, 2903983, 8342294 ####[address] [address] MCHC (RBC) [Mass/Vol] 32.4 g/dL Normal 31.4-36.0 [facility] Comment on above: Performed By: #### 1 8929767, 8343477, 3766683 ####[address] [address] MCV (RBC) [Entitic vol] 89.6 fL Normal 80.0-100.0 F [facility] Comment on above: Performed By: #### 1 2783161, 2505378, 6473690 ####[address] [address] [place] Absolute 0.4 E9/L Normal 0.2-1.0 [facility] Comment on above: Performed By: #### 1 7171268, 5077132, 0138066 ####[place] [address] [place] [address] Monocytes/100 WBC (Bld) 8.1 % Normal 4.0-14.0 F [facility] Comment on above: Performed By: #### 1 6763459, 7642645, 4086091 ####[address] [address] Neutro Absolute 2.4 E9/L Normal 2.0-7.5 [facility] Comment on above: Performed By: #### 1 4981704, 0548290, 0822878 ####[facility] [address] [place] [address] Neutro Auto 46.2 % Normal 36.0-75.0 [facility] Comment on above: Performed By: #### 1 8621995, 7255038, 5057167 ####[place] [address] [place] [address] Platelet 236.0 E9/L Normal 150.0-500.0 [facility] Comment on above: Performed By: #### 1 7242702, 7184744, 0654143 ####[address] [address] Platelet mean volume (Bld) [Entitic vol] 6.8 fL Normal 6.4-10.8 [facility] Comment on above: Performed By: #### 1 9118654, 3836313, 7090958 ####[address] [address] RBC 3.7 E12/L Low 4.3-5.9 [facility] Comment on above: Performed By: #### 1 1361777, 5242306, 8060675 ####[address] [address] WBC 5.3 E9/L Normal 4.0-11.0 [facility] Comment on above: Performed By: #### 1 4912850, 2739043, 0148059 ####[address] [address] CHEMISTRYOrdered By: SYSTEM SYSTEM on 08-02-2023 Anion [...] Normal 80.0 - 100.0 fL Remisol Heme [place] Absolute 0.4 E9/L Normal 0.2 - 1.0 [...] Inpatient Clinical Summaryon 08-02-2023 Inpatient Clinical Summary [place] [id number] Clinical Summary Person Information: Name: NADIA PATTERSON Age: 78 Years : 1945 Sex: Female PCP: HARPAL HAYES MD Marital Status: Phone: [phone] Race: White Ethnicity: Non- or Language: Russian Visit Id: Visit Reason: Cough; Weakness or fatigue; WEAKNESS Speciality: Acuity: Enc Type: Inpatient Med Service: Medical Arrival: 07/30/2023 20:28:48 Discharge: Dispo Type: Admitted as IP to this [facility] Address: [address] [place] [id number] Provider Notes: Diagnosis: 1:Generalized weakness; 2:Pneumonia; 3:Lactic [...] By Mouth every 6 hours. acetaminophen-hydroc odone ([place] 325 mg-5 mg oral tablet) 1 Tablets [...] Follow up: With: Address: When: [place] [address] 08/09/2023 10:30 AM Comments: Call for followup appointment Patient Education Information: Community-Acquired Pneumonia, Adult, Cxfi-ps-Cuto Normal [facility] Inpatient Patient Summaryon 08-02-2023 Inpatient [...] Strength 500 mg oral tablet) acetaminophen-hydroc odone ([place] 325 mg-5 mg oral tablet) aspirin (aspirin [...] Diagnostic Test Results None Pharmacy Information Other: [facility] Discharge Instructions Please return to ER if symptoms change or worsen. Please take medication as prescribed. Please follow-up with PCP New Follow Up Appointments after Discharge Follow Up with FREDDY BRIGGS, GRETEL ROWAN When: 08/09/2023 10:30 AM EST Where: [address] [place] [address]- Medications What How Much When Instructions Next Dose New azithromycin (azithromycin 250 mg Tab) 1 Tablets By Mouth Every day start Pickup at [place] [address] 08/03/23 9am New cefuroxime (cefuroxime 500 mg oral tablet) 1 Tablets By Mouth 2 times a day start Pickup at [place] [address] 08/03/23 9am Changed pregabalin 150 Milligram By Mouth 2 times a day 08/02/23 9pm Unchanged acetaminophen (Tylenol Extra Strength 500 mg oral tablet) 2 Tablets By Mouth Every 6 hours as needed Unchanged acetaminophen-hydroc odone ([place] 325 mg-5 mg oral tablet) 1 Tablets [...] day 08/02/23 (more content not included)... Normal [facility] Inpatient Patient Summary [address] [address] Patient Discharge Instructions PERSON INFORMATION [...] Follow up: With: Address: When: HARPAL HAYES MD, [facility] [address], [place] [id number] 08/09/2023 10:30 AM Comments: Call for followup appointment In the event that this physician does not participate in your insurance network, please consult with your insurance company to find a nearby participating provider. Comment: LENORA Fields EILEEN M, have received the attached patient education materials/instructio ns and have verbalized understanding: Patient Signature Date Clinican/Nurse Signature Date HERE ARE THE MEDICATION CHANGES THAT OCCURRED DURING YOUR HOSPITAL STAY New Medications [facility], [address], [place] [id number], [phone] azithromycin (azithromycin 250 mg Tab) 1 Tablets [...] hours. Last Dose: Next Dose: acetaminophen-hydroc odone ([place] 325 mg-5 mg oral tablet) 1 Tablets [...] By Mouth (more content not included)... Normal [facility] Interdisciplinary Note - [place] e Manageron 08-02-2023 Interdisciplinary Note - Hand Molder Pt is awake and alert in bed, previously rounded with Dr. Meier. PCP verified and insurance information reviewed and DME discussed. Contact information provided and white board updated. Pt is set up with [facility] at [place] P tis from home with and she will transport at [place]. Pt is currently on oxygen 3L, plan to stay in hospital today and wean down oxygen. Pt does not have home oxygen, may need desat prior to [place]. Medicare rights reviewed, CRM following Normal [facility] Comment on above: Result Comment: Elec tronically Signed By: Mei Locke RN\.br\Date and Time Signed: 08/02/23 08:26 EST Other Comment: error Interdisciplinary Note - Hand Molder Pt is awake and alert in bed, previously rounded with Dr. Meier. PCP verified and insurance information reviewed and DME discussed. Contact information provided and white board updated. Pt states she is current with [facility], and referral to resource center to verify. Pt is from home with spouse and her daughter or will transport at [place] Medicare rights reviewed. PT= . CRM following [facility] Comment on above: Result Comment: Elec tronically Signed By: Mei Locke RN\.br\Date and Time Signed: 08/02/23 08:14 EST eGFRon 08-02-2023 eGFR 35 mL/min/1.73 m2 Low >=59 [facility] Comment on above: Order Comment: Order added by Discern Expert. Performed By: #### 1 [id number], 4227580, 2227467 ####[facility] [address] [place] [address] BMPon 08-01-2023 Anion gap [Moles/Vol] 12 mmol/L Normal 6-16 [facility] Comment on above: Performed By: #### 1 2011564, 7364823, 9507847 ####[facility] [address] [place] [address] BUN/Creat Ratio 14 No Units Normal 10-20 [facility] Comment on above: Performed By: #### 1 4725722, 1903493, 6129674 ####[place] [place] [address] Calcium [Mass/Vol] 9.1 mg/dL Normal 8.9-11.1 [facility] Comment on above: Performed By: #### 1 0296362, 0420184, 9682161 ####[facility] [address] [place] [address] Chloride [Moles/Vol] 103 mmol/L Normal 101-111 [facility] Comment on above: Performed By: #### 1 2643758, 5188676, 1624822 ####[facility] [address] [place] [address] CO2 [Moles/Vol] 31 mmol/L Normal 21-31 [facility] Comment on above: Performed By: #### 1 0075640, 1202424, 3431697 ####[facility] [address] [place] [address] Creatinine [Mass/Vol] 1.3 mg/dL Normal 0.5-1.3 [facility] Comment on above: Performed By: #### 1 8667650, 3853371, 1145371 ####[facility] [address] [place] [address] Glucose [Mass/Vol] 113 mg/dL Normal 55-199 [facility] Comment on above: Performed By: #### 1 7237925, 8757786, 0319591 ####[facility] [address] [place] [address] Potassium [Moles/Vol] 4.0 mmol/L Normal 3.5-5.3 [facility] Comment on above: Performed By: #### 1 8990112, 8100365, 2372450 ####[address] [address] Sodium [Moles/Vol] 142 mmol/L Normal 135-145 [facility] Comment on above: Performed By: #### 1 8719878, 9982793, 1049206 ####[address] [address] Urea nitrogen [Mass/Vol] 18 mg/dL Normal 5-21 [facility] Comment on above: Performed By: #### 1 9854054, 7336170, 1460738 ####[address] [address] BNPon 08-01-2023 Natriuretic peptide B (Bld) [Mass/Vol] 112 pg/mL High 5-80 [facility] Comment on above: Performed By: #### 1 6050260 ####[address] [address] CBC w/ Auto Diffon 4 Basophil Absolute 0.1 E9/L Normal 0.0-0.2 [facility] Comment on above: Performed By: #### 1 9720180, 9369334, 0864177 ####[address] [address] Basophils/100 WBC (Bld) 1.4 % Normal 0.0-2.0 F [facility] Comment on above: Performed By: #### 1 3863011, 5530125, 2860479 ####[address] [address] Eos Absolute 0.3 E9/L Normal 0.0-0.5 [facility] Comment on above: Performed By: #### 1 0564780, 6604551, 4547781 ####[address] [address] Eosinophils/100 WBC (Bld) 6.1 % Normal 0.0-8.0 [facility] Comment on above: Performed By: #### 1 2882304, 3713743, 3858175 ####[address] [address] Erythrocyte distribution width (RBC) [Ratio] 14.9 % High 10.9-14.2 [facility] Comment on above: Performed By: #### 1 0301979, 8752073, 5727349 ####[address] [address] Hematocrit (Bld) [Volume fraction] 34.0 % Normal 34.0-46.0 [facility] Comment on above: Performed By: #### 1 2386857, 4678741, 3016559 ####[place] [address] Hemoglobin (Bld) [Mass/Vol] 11.3 g/dL Low 12.0-16.0 [facility] Comment on above: Performed By: #### 1 4102491, 5197014, 8843919 ####[address] [address] Lymph Absolute 2.4 E9/L Normal 1.0-4.0 [facility] Comment on above: Performed By: #### 1 8530439, 6018366, 3966916 ####[place] [address] Lymphocytes/100 WBC (Bld) 43.6 % Normal 14.0-50.0 [facility] Comment on above: Performed By: #### 1 7525993, 5155242, 2653974 ####[address] [address] MCH (RBC) [Entitic mass] 29.4 pg Normal 27.0-34.0 [facility] Comment on above: Performed By: #### 1 5494082, 9096474, 1746897 ####[address] [address] MCHC (RBC) [Mass/Vol] 33.2 g/dL Normal 31.4-36.0 [facility] Comment on above: Performed By: #### 1 3260811, 2984780, 9610924 ####[address] [address] MCV (RBC) [Entitic vol] 88.5 fL Normal 80.0-100.0 [facility] Comment on above: Performed By: #### 1 0377535, 8220538, 5959917 ####[address] [address] [place] Absolute 0.4 E9/L Normal 0.2-1.0 [facility] Comment on above: Performed By: #### 1 2736083, 7332073, 9583158 ####[place] [address] Monocytes/100 WBC (Bld) 7.3 % Normal 4.0-14.0 [facility] Comment on above: Performed By: #### 1 8866740, 3993136, 4648171 ####[address] [address] Neutro Absolute 2.2 E9/L Normal 2.0-7.5 [facility] Comment on above: Performed By: #### 1 4173445, 7401071, 4101476 ####[address] [address] Neutro Auto 41.6 % Normal 36.0-75.0 [facility] Comment on above: Performed By: #### 1 2560770, 5634342, 9717822 ####[address] [address] Platelet 251.0 E9/L Normal 150.0-500.0 [facility] Comment on above: Performed By: #### 1 0255503, 7179991, 2479399 ####[place] [address] Platelet mean volume (Bld) [Entitic vol] 7.9 fL Normal 6.4-10.8 [facility] Comment on above: Performed By: #### 1 3598589, 3953748, 8987088 ####[facility] [address] [place] [address] RBC 3.8 E12/L Low 4.3-5.9 [facility] Comment on above: Performed By: #### 1 4061746, 1341002, 3911854 ####[facility] [address] [place] [address] WBC 5.4 E9/L Normal 4.0-11.0 [facility] Comment on above: Performed By: #### 1 6988887, 7610489, 8587690 ####[facility] [address] [place] [address] CHEMISTRYOrdered By: [employer] on 08-01-2023 Anion gap [Moles/Vol] 12 mmol/L [...] 112 pg/mL High 5 - 80 pg/mL [facility] HemeManSS HEMATOLOGYOrdered By: SYSTEM SYSTEM on 08-01-2023 Basophil [...] Normal 80.0 - 100.0 fL Remisol Heme [place] Absolute 0.4 E9/L Normal 0.2 - 1.0 [...] Normal 4.0 - 11.0 E9/L Remisol Heme [id number] 08-01-2023 HbA1c (Bld) [Mass fraction] 6.7 % High <=5.9 [facility] Comment on above: Order Comment: Order placed by EKM rule. [email or web address][place] Performed By: #### 7 [id number] ####[facility] [address] [place] [address] Interdisciplinary Note - [place] e Manageron 08-01-2023 Interdisciplinary Note - Hand Molder Pt is awake and alert in bed, previously rounded with Dr. Meier. Pt is from home with spouse and he will transport at [place]. Inpatient status reviewed, form signed and original [...] therapy evals for HH and agreeable to [facility] [place], referral to be sent to resource center, anticipate [place] 08/02/23 [facility] Comment on above: Result Comment: Elec tronically Signed By: Cornelia TAVAREZ, Mei\.olaf\Date and Time Signed: 08/01/23 14:51 EST Message from Medicareon 07-08 Message from Medicare [id number] 20 [id number] #[id number] [facility] Progress Note-Physicianon Progress Note-Physician Assessment/Plan 1. [...] and leg pain requiring a dose of [place]. She states this is not a new [...] 08:50:00) Lymph Auto: 43.6 % (08/01/23 08:50:00) [place] Auto: 7.3 % (08/01/23 08:50:00) Eos Auto: 6.1 % (08/01/23 08:50:00) Basophil Auto: 1.4 % (08/01/23 08:50:00) Neutro Absolute: 2.2 E9/L (08/01/23 08:50:00) Lymph Absolute: 2.4 E9/L (08/01/23 08:50:00) [place] Absolute: 0.4 E9/L (08/01/23 08:50:00) Eos Absolute: [...] positive Weakness (more content not included)... Normal [facility] Comment on above: Result Comment: Elec tronically Signed By: Saira Lawler\.br\Date and Time Signed: 08/01/23 09:26 EST\.br\Electronically Co-Signed By: Hector Meier DO\.br\Date and Time Co-Signed: 08/01/23 14:28 EST eGFRon 08-01-2023 eGFR 42 mL/min/1.73 m2 Low >=59 [facility] Comment on above: Order Comment: Order added by Discern Expert. Performed By: #### 1 2858862, 8424807, 6270422 ####[facility] [address] [place] [address] CHEMISTRYOrdered By: Cecelia Carrillo on 07-31-2023 HbA1c (Bld) [Mass fraction] 6.7 % High <=5.9% [facility] ChemAutoSS CHEMISTRYOrdered By: SYSTEM [...] High Sensitivity Troponin I Instructions For Use, [place], January 2018) Troponin 3.50 pg/mL Low 10.10 - 27.10 pg/mL [facility] Comment on above: Interpretive Data: T he 95% CI (Confidence Interval) PPV (Positive Predictive Value) for myocardial infarction in females is 38 pg/mL, in males 51 pg/mL. The results should be used in conjunction with clinical conditions of myocardial infarction. (Access High Sensitivity Troponin I Instructions For Use, One [place], January 2018) Lactic Acid Lvl 2.1 mmol/L [...] High Sensitivity Troponin I Instructions For Use, One [place], January 2018) ED Clinical Summaryon 2023 ED Clinical Summary [place] [address] ED Clinical Summary Person Information Name: NADIA PATTERSON Swapna/[facility] Age: 78 Years : 1945 Sex: Female Language: Russian PCP: HARPAL HAYES MD Marital Status: Phone: [phone] Visit Id: Visit Reason: Cough; Weakness or fatigue; WEAKNESS Speciality: Acuity: 3 Enc Type: Inpatient Med Service: Emergency Arrival: 07/30/2023 20:28:48 Discharge: LOS: 000 14:42 Checkin: 07/30/2023 20:28:48 Checkout: 07/31/2023 11:10:22 Dispo Type: Admitted as IP to this [facility] EVENTS: Event Name Event [...] 03:21:59 Meds Admin Request 07/31/2023 03:23:59 ADDRESS: [address] [place] [phone] PHYS DOC NOTES: MEDICAL INFORMATION: Prescriptions Given: Medications to Continue with No Changes Other Medications acetaminophen (Tylenol Extra Strength 500 mg oral tablet) 2 Tablets By Mouth every 6 hours. acetaminophen-hydroc odone ([place] 325 mg-5 mg oral tablet) 1 Tablets [...] chest pain. (more content not included)... Normal [facility] ED Note-Physicianon 07-31-19 ED Note-Physician [...] very tired lately. They talked to her shop foreman who advised cutting back on her trazodone [...] data avail (more content not included)... Normal [facility] Comment on above: Result Comment: Elec tronically Signed By: Mariela Birch PA-C\.br\Date and Time Signed: 07/30/23 23:16 EST\.br\Electronically Co-Signed By: Michele Marie DO\.br\Date and Time Co-Signed: 07/31/23 01:47 EST ED Patient Education Noteon 07-31-2023 ED Patient Education Note Normal [facility] ED Patient Summaryon 024 ED Patient Summary [place] [address] Patient Discharge Instructions Person Information Name: NADIA PATTERSON Age: 78 Years Arrival Date: 07/30/2023 20:28:48 Discharge Diagnosis: 1:Generalized weakness; 2:Pneumonia; 3:Lactic acidosis; 4:Fibromyalgia; 5:Diabetes mellitus with polyneuropathy; 6:Hypothyroid; 7:CKD (chronic kidney disease) stage 3, GFR 30-59 ml/min; 8:Dementia Primary Care Physician: HARPAL HAYES MD Provider Information Primary Provider: Michele Marie DO Advanced Invoice Control Clerk:Mariela iBrch PA-C The exam and treatment you received in the Emergency Department were for an urgent problem and are not intended as complete care. It is important that you follow up with a doctor, nurse practitioner, or physician?s employment legal assistant for ongoing care. If your symptoms [...] opioids can be used to help relieve ykpclxtv-yl-vipqmr pain and are often prescribed following a [...] be struggling with addiction, tell your health long term care phlebotomist and ask for guidance or call [facility]?S National Helpline at 4-491-246-KPOV. (more content not included)... Normal [facility] Influenza A&B Agon Influenzae A Ag Negative Normal Negative [facility] Comment on above: Performed By: #### 1 [id number], [id number] ####[facility] [address] [place] [address] Influenzae B Ag Negative Normal Negative [facility] Comment on above: Result Comment: Test sensitivity and specificity vary for age group, specimen type, antigen types, and prevalence of disease. Test results must be evaluated in conjunction with other clinical data available to the physician. Individuals who received nasally administered Influenza A vaccine may have positive test results up to 3 days after vaccination. Performed By: #### 1 [id number], [id number] ####[facility] [address] [place] [address] Interdisciplinary Note - PTo n 07-31-2023 Interdisciplinary Note - PT Order for ED, pt to be transferred; will attempt PT eval on 08/01/23. Normal [facility] Lactic Acidon 02-25-2024 Lactic Acid Lvl 2.1 mmol/L Normal 0.5-2.2 [facility] Comment on above: Order Comment: Order added by EKS Rule. (FT_LACTIC_ACID_REFLEX) Adds reflex Lactic Acid 4 hours after initial if result is greater than or equal to 2.0. Performed By: #### 2 315777 ####[facility] [address] [place] [address] MICRO OTHER TESTSOrdered By: Damion Grigsby on 07-31-2023 Influenzae A Ag Negative (07/31/23 3:32 AM) Normal Negative [facility] Influenzae B Ag Negative 1 (07/31/23 3:32 AM) Normal Negative [facility] Comment on above: Interpretive Data: T [...] NEG Ctl Pass (07/31/23 3:32 AM) Normal [facility] Rapid COV Int POS Ctl Pass (07/31/23 3:32 AM) Normal [facility] SARS-CoV+SARS-CoV-2 (COVID-19) Ag IA.rapid Ql (Resp) Not Detected 6 (07/31/23 3:32 AM) Normal Not Detected [facility] Comment on above: Interpretive Data: T he [employer] Veritor System for Rapid Detection of SARS-CoV-2 [...] call Irma twice with no answer. Normal [facility] Rapid COVID Antigen ([facility])on 07-31-2023 Rapid COV Int NEG Ctl Pass Normal [facility] Comment on above: Performed By: #### 1 [id number], [id number] ####[facility] [address] [place] [address] Rapid COV Int POS Ctl Pass Normal [facility] Comment on above: Performed By: #### 1 [id number], [id number] ####[facility] [address] [place] [address] SARS-CoV+SARS-CoV-2 (COVID-19) Ag IA.rapid Ql (Resp) Not detected Normal Not Detected [facility] Comment on above: Result Comment: The [employer] Veritor? System for Rapid Detection of SARS-CoV-2 [...] or revoked sooner. Performed By: #### 1 [id number], [id number] ####[facility] [address] [place] [address] Troponin 3 Hr.on 07-31-2023 Troponin 3.60 pg/mL Low 10.10-27.10 [facility] Comment on above: Result Comment: The 95% CI (Confidence Interval) PPV (Positive Predictive Value) for myocardial infarction in females is 38 pg/mL, in males 51 pg/mL. The results should be used in conjunction with clinical conditions of myocardial infarction. (Access High Sensitivity Troponin I Instructions For Use, [place], January 2018) Performed By: #### 1 [id number] ####[facility] [address] [place] [address] Troponin 6 Hr.on 07-31-2023 Troponin 3.50 pg/mL Low 10.10-27.10 [facility] Comment on above: Result Comment: The 95% CI (Confidence Interval) PPV (Positive Predictive Value) for myocardial infarction in females is 38 pg/mL, in males 51 pg/mL. The results should be used in conjunction with clinical conditions of myocardial infarction. (Access High Sensitivity Troponin I Instructions For Use, One Season, January 2018) Performed By: #### 1 [id number] ####[facility] [address] [place] [address] Troponin 9 Hr.on 07-31-2023 Troponin 4.50 pg/mL Low 10.10-27.10 [facility] Comment on above: Result Comment: The 95% CI (Confidence Interval) PPV (Positive Predictive Value) for myocardial infarction in females is 38 pg/mL, in males 51 pg/mL. The results should be used in conjunction with clinical conditions of myocardial infarction. ([email or web address] High Sensitivity Troponin I Instructions For Use, One Season, January 2018) Performed By: #### 1 [id number] ####[facility] [address] [place] [address] XR Chest Single Viewon 07-31 XR Chest Single View Exam Date/Time: 07/30/2023 21:01 EST Reason for Exam: Shortness of breath (SOB) Report [facility] [phone] IMPRESSION: There are no acute cardiopulmonary changes. [...] mGy = na DAP = na Normal [facility] BMPon 07-30-2023 Anion gap [Moles/Vol] 15 mmol/L Normal 6-16 [facility] Comment on above: Performed By: #### 2 142040, 84166096, 0122549, 5198597, 4451706, 75722144, 97108830 ####[facility] [address] [place] [address] BUN/Creat Ratio 13 No Units Normal 10-20 [facility] Comment on above: Performed By: #### 2 513359, 68506723, 8766931, 4102892, 5409660, 74998786, 29718314 ####[facility] [address] [place] [address] Calcium [Mass/Vol] 10.0 mg/dL Normal 8.9-11.1 [facility] Comment on above: Performed By: #### 2 972931, 22790530, 7718655, 6307056, 1935692, 05398424, 33225998 ####[facility] [address] [place] [address] Chloride [Moles/Vol] 101 mmol/L Normal 101-111 [facility] Comment on above: Performed By: #### 2 977665, 62574910, 0537024, 5009160, 0300899, 84232934, 49325984 ####[facility] [address] [place] [address] CO2 [Moles/Vol] 31 mmol/L Normal 21-31 [facility] Comment on above: Performed By: #### 2 636566, 25848146, 4666043, 2825505, 0440250, 01402193, 85184923 ####[facility] [address] [place] [address] Creatinine [Mass/Vol] 1.5 mg/dL High 0.5-1.3 [facility] Comment on above: Performed By: #### 2 283875, 79174727, 1469743, 6222834, 3441638, 45433943, 67279681 ####[facility] [address] [place] [address] Glucose [Mass/Vol] 140 mg/dL Normal 55-199 [facility] Comment on above: Performed By: #### 2 342347, 30237776, 4671514, 3784402, 0401866, 40492466, 30174437 ####[facility] [address] [place] [address] Potassium [Moles/Vol] 4.0 mmol/L Normal 3.5-5.3 [facility] Comment on above: Performed By: #### 2 273093, 71665957, 9902204, 2698154, 0872220, 48656110, 81366477 ####[facility] [address] [place] [address] Sodium [Moles/Vol] 143 mmol/L Normal 135-145 [facility] Comment on above: Performed By: #### 2 731743, 78889382, 5605820, 6505551, 0920907, 81120613, 97173639 ####[facility] [address] [place] [address] Urea nitrogen [Mass/Vol] 20 mg/dL Normal 5-21 [facility] Comment on above: Performed By: #### 2 170096, 42475696, 2615690, 6955899, 5215887, 40233236, 54200063 ####[facility] [address] [place] [address] BNPon 07-30-2023 Int Ctr BNP Pass Normal [facility] Comment on above: Performed By: #### 2 810455, 71185179, 0171272, 1352441, 5980964, 18060834, 25199041 ####[facility] [address] [place] [address] Natriuretic peptide B (Bld) [Mass/Vol] 114 pg/mL High 5-80 [facility] Comment on above: Performed By: #### 2 905637, 00355851, 1314358, 2204467, 3191499, 01779870, 59109373 ####[place] [address] [place] [address] CBC w/ Auto Diffon 4 Basophil Absolute 0.0 E9/L Normal 0.0-0.2 [facility] Comment on above: Performed By: #### 2 029625, 41670135, 6312654, 1166423, 8579028, 87454467, 28098510 ####[place] [address] [place] [address] Basophils/100 WBC (Bld) 0.9 % Normal 0.0-2.0 [facility] Comment on above: Performed By: #### 2 170273, 84378912, 4259256, 7345143, 9411669, 65452889, 35409631 ####[address] [address] Eos Absolute 0.2 E9/L Normal 0.0-0.5 [facility] Comment on above: Performed By: #### 2 260016, 98167956, 9854601, 0660516, 1273562, 79050005, 57101615 ####[address] [address] Eosinophils/100 WBC (Bld) 4.1 % Normal 0.0-8.0 [facility] Comment on above: Performed By: #### 2 915860, 39980856, 1359227, 8326237, 7639558, 57630169, 37230815 ####[address] [address] Erythrocyte distribution width (RBC) [Ratio] 14.7 % High 10.9-14.2 [facility] Comment on above: Performed By: #### 2 436753, 47727583, 0503222, 8858277, 8732540, 42826574, 15960516 ####[address] [address] Hematocrit (Bld) [Volume fraction] 38.0 % Normal 34.0-46.0 [facility] Comment on above: Performed By: #### 2 299437, 33918215, 7897953, 0311173, 7903375, 36952205, 13222040 ####[facility] [address] [place] [address] Hemoglobin (Bld) [Mass/Vol] 12.5 g/dL Normal 12.0-16.0 [facility] Comment on above: Performed By: #### 2 660004, 74244252, 1009596, 5123913, 2501820, 26336386, 85915870 ####[place] [address] [place] [address] Lymph Absolute 1.7 E9/L Normal 1.0-4.0 [facility] Comment on above: Performed By: #### 2 899290, 85497626, 8635487, 7231491, 7532254, 65727211, 45535774 ####[address] [address] Lymphocytes/100 WBC (Bld) 30.5 % Normal 14.0-50.0 [facility] Comment on above: Performed By: #### 2 300533, 04813009, 2807915, 4322446, 8243511, 43378164, 07188518 ####[address] [address] MCH (RBC) [Entitic mass] 29.2 pg Normal 27.0-34.0 [facility] Comment on above: Performed By: #### 2 519184, 71568619, 1287035, 0022736, 5066784, 58329726, 45115789 ####[place] [address] [place] [address] MCHC (RBC) [Mass/Vol] 32.9 g/dL Normal 31.4-36.0 [facility] Comment on above: Performed By: #### 2 634090, 03348103, 8343069, 7779111, 3044817, 94314370, 53532859 ####[facility] [address] [place] [address] MCV (RBC) [Entitic vol] 89.0 fL Normal 80.0-100.0 F [facility] Comment on above: Performed By: #### 2 948846, 83766260, 0362804, 2901592, 7476620, 47224379, 78595909 ####[address] [address] [address] [place] Absolute 0.4 E9/L Normal 0.2-1.0 [facility] Comment on above: Performed By: #### 2 636959, [id number], 2588873, 4681462, 9108966, 72683937, 32240212 ####[address] [address] Monocytes/100 WBC (Bld) 7.8 % Normal 4.0-14.0 F [facility] Comment on above: Performed By: #### 2 470584, 38517541, 8650830, 8066433, 4726121, 59054153, 61956327 ####[address] [address] Neutro Absolute 3.2 E9/L Normal 2.0-7.5 [facility] Comment on above: Performed By: #### 2 937543, 65065985, 3328709, 3703602, 0542279, 64603902, 87139786 ####[facility] [address] [place] [address] Neutro Auto 56.7 % Normal 36.0-75.0 [facility] Comment on above: Performed By: #### 2 287024, 64009824, 9120397, 4583341, 0745248, 06142432, 90220510 ####[facility] [address] [place] [address] Platelet 215.0 E9/L Normal 150.0-500.0 [facility] Comment on above: Performed By: #### 2 274002, 79398299, 3768401, 3588712, 5932734, 94970359, 68591349 ####[facility] [address] [place] [address] Platelet mean volume (Bld) [Entitic vol] 7.1 fL Normal 6.4-10.8 [facility] Comment on above: Performed By: #### 2 245398, 62661155, 0739705, 5131177, 5066307, 49329654, 57676649 ####[facility] [address] [place] [address] RBC 4.3 E12/L Normal 4.3-5.9 [facility] Comment on above: Performed By: #### 2 774886, 08344184, 1196761, 2064439, 2456979, 77830141, 57868345 ####[facility] [address] [place] [address] WBC 5.6 E9/L Normal 4.0-11.0 [facility] Comment on above: Performed By: #### 2 023518, 01538204, 1949171, 1646607, 3073004, 51704185, 79777530 ####[facility] [address] [place] [address] CHEMISTRYOrdered By: SYSTEM SYSTEM on 07-30-2023 Albumin [...] 114 pg/mL High 5 - 80 pg/mL [facility] HemeManSS CHEMISTRYOrdered By: Yane ROP User on 07-30-2023 Glucose [Mass/Vol] 127 mg/dL High 55 - 99 mg/dL [facility] POC Subsection Comment on above: Result Comment: Michelle erickson RN/ POC Device SN [id number] Invalid Interpretation Code [facility] POC Subsection POC User ID [id number] Invalid Interpretation Code [facility] POC Subsection POC Username DREAD CHURCH Invalid Interpretation Code [facility] POC Subsection Capillary Glucose POCon 07-08 Glucose [Mass/Vol] 127 mg/dL High 55-99 [facility] Comment on above: Result Comment: Michelle erickson RN/ Performed By: #### 2 [id number] ####[facility] [address] [place] [address] Consent for Treatmenton 07-08 Consent for Treatment [id number] #1.00TIFF Normal [facility] HEMATOLOGYOrdered By: SYSTEM SYSTEM on [...] Normal 80.0 - 100.0 fL Remisol Heme [place] Absolute 0.4 E9/L Normal 0.2 - 1.0 [...] 07-30-2023 Albumin [Mass/Vol] 4.1 g/dL Normal 3.3-5.0 [facility] Comment on above: Performed By: #### 2 850832, 15189478, 8291267, 4609597, 9903839, 94673958, 41554416 ####[facility] [address] [place] [address] Albumin/Globulin [Mass ratio] 1.4 {ratio} Normal 1.1-2.2 [facility] Comment on above: Performed By: #### 2 654702, 30224909, 1384856, 6090965, 3834541, 17027089, 77223304 ####[facility] [address] [place] [address] Alk Phos 83 Int._Unit/L Normal 21-98 [facility] Comment on above: Performed By: #### 2 919050, 51060967, 7779561, 4671449, 7705198, 24518342, 38519996 ####[facility] [address] [place] [address] ALT 9 Int._Unit/L Normal 6-46 [facility] Comment on above: Performed By: #### 2 769537, 34704852, 0722296, 4949149, 9063795, 28168041, 55954919 ####[facility] [address] [place] [address] AST 15 Int._Unit/L Normal 5-43 [facility] Comment on above: Performed By: #### 2 665257, 74892715, 6094321, 5152700, 8253346, 41513413, 08487285 ####[facility] [address] [place] [address] Bili Direct 0.1 mg/dL Normal 0.0-0.4 [facility] Comment on above: Performed By: #### 2 765448, 48467975, 2162063, 2863026, 7555631, 23141953, 59772234 ####[facility] [address] [place] [address] Bili Indirect 0.3 mg/dL Normal 0.1-0.9 [facility] Comment on above: Performed By: #### 2 962761, 90476733, 2009978, 9590260, 7393788, 33853747, 12419196 ####[place] [address] Bili Total 0.4 mg/dL Normal 0.0-1.1 [facility] Comment on above: Performed By: #### 2 787401, 11443680, 4008567, 8600010, 1895614, 49873323, 16734698 ####[address] [address] Globulin (S) [Mass/Vol] 3.0 g/dL Normal 1.4-4.0 [facility] Comment on above: Performed By: #### 2 791317, 36831409, 8691931, 4374967, 7867670, 25011127, 36366823 ####[address] [place] [address] Protein [Mass/Vol] 7.1 g/dL Normal 6.0-7.8 [facility] Comment on above: Performed By: #### 2 747805, 02264185, 9026277, 9042298, 2972248, 88371134, 99508242 ####[address] [place] [address] Lactic Acidon 07-30-2023 Lactic Acid Lvl 2.4 mmol/L High 0.5-2.2 [facility] Comment on above: Performed By: #### 2 211383, 10689021, 4747789, 2635642, 2589787, 84656526, 70122828 ####[facility] [address] [place] [address] No Panel InformationOrdered By: ANGPROCESSSERVER MICROBIOLOGY on 07-30-2023 Blood Culture Charcoal No growth at 2 da ys. Final to follow at 7 days. [facility] Pre-Arrival Noteon Pre-Arrival Note Pre-Arrival Summary Name: BELEN Current Date: 07/30/2023 20:30:20 EST Gender: Female Date of : Age: 78 Pre-Arrival Type: EMS ETA: 07/30/2023 20:45:00 EST Primary Care Physician: Presenting Problem: weakness/trouble walking Pre-Arrival User: Dread Castañeda RN Referring Source: Location: Completion Date/Time: 07/30/2023 00:00:00 [facility] Emergency Department Pre-Hospital Report Form Vital Signs: HR 81 BP 109/68 RR 16 98% RA BG 159 98.7 F Pre-Hospital Report: A/Ox4 feeling generally ill, weakness and trouble walking. Hx fibromyalgia, DM, and kidney issues Treatment in Route: failed IV access Response to Treatment: Misc. Issues: Normal [facility] Troponin 0 Hr.on 07-30-2023 Troponin 3.50 pg/mL Low 10.10-27.10 [facility] Comment on above: Result Comment: The 95% CI (Confidence Interval) PPV (Positive Predictive Value) for myocardial infarction in females is 38 pg/mL, in males 51 pg/mL. The results should be used in conjunction with clinical conditions of myocardial infarction. (Access High Sensitivity Troponin I Instructions For Use, Man[place], January 2018) Performed By: #### 2 836918, 31671657, 8099489, 3988978, 9010061, 89722208, 21090421 ####[facility] [address] [place] [address] UA With Cult Reflexon 2023 Bacteria LM Ql (Urine sed) TRACE Normal Trace [facility] Comment on above: Performed By: #### 1 9980112 ####[address] [address] Bilirubin Ql (U) Negative Normal Negative [facility] Comment on above: Performed By: #### 1 3135874 ####[address] [address] Clarity (U) CLEAR Normal Clear [facility] Comment on above: Performed By: #### 1 4015142 ####[address] [address] Color (U) YELLOW Normal Yellow [facility] Comment on above: Performed By: #### 1 2878786 ####[address] [address] Epithelial cells.squamous LM.HPF (Urine sed) [#/Area] 0-2 Normal 0-2 [facility] Comment on above: Performed By: #### 1 3604150 ####[address] [address] Glucose Test strip (U) [Mass/Vol] Negative Normal Negative [facility] Comment on above: Performed By: #### 1 8565821 ####[address] [address] Hemoglobin Ql (U) Negative Normal Negative [facility] Comment on above: Performed By: #### 1 0573768 ####[address] [address] Ketones (U) [Mass/Vol] Negative Normal Negative [facility] Comment on above: Performed By: #### 1 5100678 ####[facility] [address] [place] [address] Senatobia.plasma/Senatobia.R BC (Bld) [Mass ratio] 0-3 Normal 0-3 [facility] Comment on above: Performed By: #### 1 1701945 ####[address] [address] Nitrite Ql (U) Negative Normal Negative [facility] Comment on above: Performed By: #### 1 5284670 ####[address] [address] pH (U) 7.0 [pH] Invalid Interpretation Code 5.0-9.0 [facility] Comment on above: Performed By: #### 1 6845000 ####[address] [address] Protein (U) [Mass/Vol] Negative Normal Negative [facility] Comment on above: Performed By: #### 1 5488928 ####[address] [address] Specific gravity (U) [Rel density] 1.015 Invalid Interpretation Code 1.005-1.030 [facility] Comment on above: Performed By: #### 1 0388513 ####[address] [address] Type of Urine collection method Clean Catch Normal [facility] Comment on above: Performed By: #### 1 2997582 ####[address] [address] Urobilinogen Qn (U) 0.2 {Macie'U}/dL Normal 0.0-1.0 [facility] Comment on above: Performed By: #### 1 7748486 ####[address] [address] WBC Auto Ql (U) Negative Normal Negative [facility] Comment on above: Performed By: #### 1 6672102 ####[address] [place] [address] WBC LM.HPF (Urine sed) [#/Area] 0-5 Normal 0-5 [facility] Comment on above: Performed By: #### 1 3651484 ####[facility] [address] [place] [address] URINALYSISOrdered By: Damion Grigsby on 07-30-2023 Bacteria [...] PM) Normal Negative [facility] UA Auto SS Senatobia.plasma/Senatobia.R BC (Bld) [Mass ratio] 0-3 /HPF Normal [...] [facility] UA Auto SS Urobilinogen Qn (U) 0.1399242 {Macie'U}/dL Normal 0.0 - 1.0 EU/dL [facility] UA Auto SS WBC Auto Ql (U) Negative (07/30/23 10:50 PM) Normal Negative [facility] UA Auto SS WBC LM.HPF (Urine sed) [#/Area] 0-5 /HPF Normal 0-5/HPF [facility] UA Auto SS eGFRon 07-30-2023 eGFR 35 mL/min/1.73 m2 Low >=59 [facility] Comment on above: Order Comment: Order added by Discern Expert. Performed By: #### 2 635868, 37759847, 8062898, 0568861, 2000395, 38840900, 98885628 ####[facility] [address] [place] [address] CHEMISTRYOrdered By: Lab ROP User on 12-17-2022 Glucose [Mass/Vol] 119 mg/dL High 55 - 99 mg/dL [facility] POC Subsection Comment on above: Result Comment: Yvonne jl Meter POC Device SN [id number] Invalid Interpretation Code [facility] POC Subsection POC User ID [id number] Invalid Interpretation Code [facility] POC Subsection POC Username EJ SIMS Invalid Interpretation Code [facility] POC Subsection CHEMISTRYOrdered By: Lab DANYELLE User on 12-16-2022 Glucose [Mass/Vol] 155 mg/dL High 55 - 99 mg/dL [facility] POC Subsection Comment on above: Result Comment: Yvonne jl Meter POC Device SN [id number] Invalid Interpretation Code [facility] POC Subsection POC User ID [id number] Invalid Interpretation Code [facility] POC Subsection POC Username EJ SIMS Invalid Interpretation Code [facility] POC Subsection Glucose [Mass/Vol] 127 mg/dL High 55 - 99 mg/dL [facility] POC Subsection Comment on above: Result Comment: Yvonne jl Meter POC Device SN [id number] Invalid Interpretation Code [facility] POC Subsection POC User ID [id number] Invalid Interpretation Code [facility] POC Subsection POC Username OUSMANE HWANG Invalid Interpretation Code [facility] POC Subsection CHEMISTRYOrdered By: Kerry Maravilla on 12-16-2022 Albumin Elph (U) [Mass fraction] mg/dL Invalid Interpretation Code [facility] Remisol Creatinine (U) [Mass/Vol] 44.5 mg/dL Invalid Interpretation Code [facility] Remisol U Prot/Creat Ratio [facility] Invalid Interpretation Code 0.00 - [...] 39 mL/min/1.73 m2 Low >=59mL/min/ 1.73 m2 [facility] Chem S Glucose [Mass/Vol] 125 mg/dL Normal [...] 4.8 E9/L Normal 4.0 - 11.0 E9/L [facility] HemeAutoSS Laboratory - Microbiology an d Antimicrobial susceptibilityOrdered By: Jasmin Desai on 12-16-2022 Bacteria identified Cx Nom (U) >100,000 cfu/ml Streptococcus species 4,000 cfu/ml Mixed skin contaminants [facility] Reference Laboratory Testing Ordered By: Sherrie DomainUser on 12-16-2022 Parathyrin.intact [Mass/Vol] 42 pg/mL Invalid Interpretation Code 15-65pg/mL [facility] SendOutsSS Comment on above: Result Comment: Perf ormed at: [facility] [address] [id number] PhD Jake Edwards URINALYSISOrdered By: Ghassan Salcido [...] AM) Normal Negative [facility] UA Auto SS Senatobia.plasma/Senatobia.R BC (Bld) [Mass ratio] 0-3 /HPF Normal [...] [facility] UA Auto SS Urobilinogen Qn (U) 0.1948651 {Macie'U}/dL Normal 0.0 - 1.0 EU/dL [facility] UA Auto SS WBC Auto Ql (U) 1+ *ABN* (12/16/22 7:32 AM) Invalid Interpretation Code Negative [facility] UA Auto SS WBC LM.HPF (Urine sed) [#/Area] /[HPF] Invalid Interpretation Code 0-5/HPF [facility] UA Auto SS URINALYSISOrdered By: Carlos daugherty on 12-10-2022 Bacteria [...] PM) Normal Negative [facility] UA Auto SS Senatobia.plasma/Senatobia.R BC (Bld) [Mass ratio] 0-3 /HPF Normal [...] [facility] UA Auto SS Urobilinogen Qn (U) 0.9859609 {Macie'U}/dL Normal 0.0 - 1.0 EU/dL [facility] UA Auto SS WBC Auto Ql (U) Negative (12/10/22 1:43 PM) Normal Negative [facility] UA Auto SS WBC LM.HPF (Urine sed) [#/Area] 0-5 /HPF Normal 0-5/HPF [facility] UA Auto SS AZTREONAM:SUSC:PT:ISOLATE:OR DQN:MICOrdered By: Jasmin Desai on 11-29-2022 Aztreonam YESENIA [Susc] >100,000 cfu/ml Escherichia coli [facility] Aztreonam YESENIA [Susc]Ordered By: Jasmin Desai on 11-29-2022 Escherichia coli Escherichia coli [facility] URINALYSISOrdered By: Yara Monory on 11-29-2022 Bacteria LM Ql (Urine sed) [...] PM) Normal Negative [facility] UA Auto SS Senatobia.plasma/Senatobia.R BC (Bld) [Mass ratio] 0-3 /HPF Normal 0-3/HPF [facility] UA Au to SS Nitrite Ql (U) Positive *ABN* (11/29/22 3:46 PM) Invalid Interpretation Code Negative [facility] UA Auto SS pH (U) 5.5 *NA* (11/29/22 3:46 PM) Invalid Interpretation Code 5.0 - 9.0 [facility] UA Auto SS Protein (U) [Mass/Vol] Negative (11/29/22 3:46 PM) Normal Negative [facility] UA Auto SS Specific gravity (U) [Rel density] 1.010 *NA* (11/29/22 3:46 PM) Invalid Interpretation Code 1.005 - 1.030 [facility] UA Auto SS UA Spec Desc Clean Catch (11/29/22 3:46 PM) Normal [facility] UA Auto SS Urobilinogen Qn (U) 0.4951405 {Macie'U}/dL Normal 0.0 - 1.0 EU/dL [facility] UA Auto SS WBC Auto Ql (U) 1+ *ABN* (11/29/22 3:46 PM) Invalid Interpretation Code Negative [facility] UA Auto SS WBC LM.HPF (Urine sed) [#/Area] /[HPF] Invalid Interpretation Code 0-5/HPF [facility] UA Auto SS CULTURE [...] F Trimethoprim/Sulfame thoxazole <=20 S F Normal [facility] Comment on above: Performed By: #### C MP, HSTROPN #### [facility] [address] [place] [address] Dr. Sahil Turk CBC AUTO DIFFon 05-27-2022 BASO # 0.0 103/ul Normal 0.0-0.1 [facility] Comment on above: Performed By: #### U RTPCR #### [facility] [address] [place] [address] Dr. Sahil Turk Basophils/100 WBC (Bld) 0.3 % Normal 0.2-2.0 [facility] Comment on above: Performed By: #### U RTPCR #### [facility] [address] [address] [address] Sahil Turk EO # 0.1 103/ul Normal 0.0-0.7 [facility] Comment on above: Performed By: #### U RTPCR #### [facility] [address] [place] [address] Dr. Sahil Turk Eosinophils/100 WBC (Bld) 0.5 % Critically low 0.9-7.0 [facility] Comment on above: Performed By: #### U RTPCR #### [facility] [address] [place] [address] Dr. Sahil Turk Erythrocyte distribution width (RBC) [Ratio] 14.1 % Normal 11.0-15.0 [facility] Comment on above: Performed By: #### U RTPCR #### [facility] [address] [place] [address] Dr. Sahil Turk Hematocrit (Bld) [Volume fraction] 38.6 % Normal 36.0-48.0 [facility] Comment on above: Performed By: #### U RTPCR #### [facility] [address] [place] [address] Dr. Sahil Turk Hemoglobin (Bld) [Mass/Vol] 12.4 g/dL Normal 12.0-16.0 [facility] Comment on above: Performed By: #### U RTPCR #### [facility] [address] [place] [address] Dr. Sahil Turk IG # 0.05 10e3/ul Critically high 0.00-0.03 [facility] Comment on above: Performed By: #### U RTPCR #### [facility] [address] [place] [address] Dr. Sahil Turk IG % 0.5 % Normal 0.0-0.5 [facility] Comment on above: Performed By: #### U RTPCR #### [facility] [address] [place] [address] Dr. Sahil Turk LYMPH # 2.1 103/ul Normal 1.2-3.8 [facility] Comment on above: Performed By: #### U RTPCR #### [facility] [address] [address] [address] Sahil Turk Lymphocytes/100 WBC (Bld) 19.2 % Critically low 20.5-60.0 [facility] Comment on above: Performed By: #### U RTPCR #### [facility] [address] [place] [address] Dr. Sahil Turk MANUAL DIFF REQ NO Normal [facility] Comment on above: Performed By: #### U RTPCR #### [facility] [address] [place] [address] Dr. Sahil Turk MCH (RBC) [Entitic mass] 29.5 pg Normal 26.7-34.0 [facility] Comment on above: Performed By: #### U RTPCR #### [facility] [address] [place] [address] Dr. Sahil Turk MCHC (RBC) [Mass/Vol] 32.1 g/dL Normal 29.9-35.2 [facility] Comment on above: Performed By: #### U RTPCR #### [facility] [address] [place] [address] Dr. Sahil Turk MCV (RBC) [Entitic vol] 91.9 fL Normal 81.0-99.0 [facility] Comment on above: Performed By: #### U RTPCR #### [facility] [address] [place] [address] Dr. Sahil Turk MONO # 0.5 103/ul Normal 0.3-0.8 [facility] Comment on above: Performed By: #### U RTPCR #### [facility] [address] [place] [address] Dr. Sahil Turk Monocytes/100 WBC (Bld) 4.6 % Normal 1.7-12.0 [facility] Comment on above: Performed By: #### U RTPCR #### [facility] [address] [place] [address] Dr. Sahil Turk NEUT # 8.3 103/ul Critically high 1.4-6.5 [facility] Comment on above: Performed By: #### U RTPCR #### [facility] [address] [place] [address] Dr. Sahil Turk Neutrophils/100 WBC (Bld) 74.9 % Normal 43.0-75.0 [facility] Comment on above: Performed By: #### U RTPCR #### [facility] [address] [place] [address] Dr. Sahil Turk Platelet mean volume (Bld) [Entitic vol] 9.3 fL Critically low 9.5-13.5 [facility] Comment on above: Performed By: #### U RTPCR #### [facility] [address] [place] [address] Dr. Sahil Turk PLT 222 103/ul Normal 150-450 [facility] Comment on above: Performed By: #### U RTPCR #### [facility] [address] [place] [address] Dr. Sahil Turk RBC 4.20 106/ul Normal 4.20-5.40 [facility] Comment on above: Performed By: #### U RTPCR #### [facility] [address] [place] [address] Dr. Sahil Turk WBC 11.0 103/ul Normal 4.0-11.0 [facility] Comment on above: Performed By: #### U RTPCR #### [facility] [address] [place] [address] Dr. Sahil Turk ER URINE PROFILEon 2 Bilirubin Ql (U) Negative Normal NEGATIVE [facility] Comment on above: Performed By: #### C MP, HSTROPN #### [facility] [address] [place] [address] Dr. Sahil Turk Clarity (U) CLEAR Normal CLEAR [facility] Comment on above: Performed By: #### C MP, HSTROPN #### [facility] [address] [place] [address] Dr. Sahil Turk Color (U) LT. YELLOW Normal YELLOW [facility] Comment on above: Performed By: #### C MP, HSTROPN #### [facility] [address] [place] [address] Dr. Sahil HAINES A micrscopic examination will be performed if indicated. Normal [facility] Comment on above: Performed By: #### C MP, HSTROPN #### [facility] [address] [address] [address] Sahil Turk Glucose Ql (U) Negative Normal NEGATIVE [facility] Comment on above: Performed By: #### C MP, HSTROPN #### [facility] [address] [address] [address] Sahil Turk Hemoglobin Ql (U) Negative Normal NEGATIVE [facility] Comment on above: Performed By: #### C MP, HSTROPN #### [facility] [address] [place] [address] Dr. Sahil Turk Ketones Ql (U) Negative Normal NEGATIVE [facility] Comment on above: Performed By: #### C MP, HSTROPN #### [facility] [address] [place] [address] Dr. Sahil Turk LEUKOCYTES SMALL Abnormal NEGATIVE [facility] Comment on above: Performed By: #### C MP, HSTROPN #### [facility] [address] [address] [address] Sahil Turk Nitrite Ql (U) Positive Abnormal NEGATIVE [facility] Comment on above: Performed By: #### C MP, HSTROPN #### [facility] [address] [place] [address] Dr. Sahil Turk pH (U) 7.0 [pH] Normal 5-9 [facility] Comment on above: Performed By: #### C MP, HSTROPN #### [facility] [address] [place] [address] Dr. Sahil Turk SPEC GRAVITY 1.010 Normal 1.005-<=1.0 25 [facility] Comment on above: Performed By: #### C MP, HSTROPN #### [facility] [address] [place] [address] Dr. Sahil Turk UA PROTEIN Negative Normal NEGATIVE/ TRACE [facility] Comment on above: Performed By: #### C MP, HSTROPN #### [facility] [address] [place] [address] Dr. Sahil Turk UR MICRO IND INDICATED Normal [facility] Comment on above: Performed By: #### C MP, HSTROPN #### [facility] [address] [place] [address] Dr. Sahil Turk Urobilinogen Qn (U) 0.2 {Macie'U}/dL Normal 0.2 - 1. 0 [facility] Comment on above: Performed By: #### C MP, HSTROPN #### [facility] [address] [place] [address] Dr. Sahil Turk PROF 14(COMP METB)on 022 Albumin [Mass/Vol] 3.5 g/dL Normal 3.4-5.0 [facility] Comment on above: Performed By: #### C JAYY, HSTROPN #### [facility] [address] [place] [address] Dr. Sahil Turk Albumin/Globulin [Mass ratio] 0.9 {ratio} Normal [facility] Comment on above: Performed By: #### C JAYY, HSTROPN #### [facility] Laboratory [address] [place] [address] Dr. Sahil Turk ALP [Catalytic activity/Vol] 81 U/L Normal 46-116 [facility] Comment on above: Performed By: #### C JAYY, HSTROPN #### [facility] [address] [place] [address] Dr. Sahil Turk ALT [Catalytic activity/Vol] 15 U/L Normal 14-59 [facility] Comment on above: Performed By: #### C MP, HSTROPN #### [facility] [address] [place] [address] Dr. Sahil Turk Anion gap [Moles/Vol] 9.7 mmol/L Normal [facility] Comment on above: Performed By: #### C MP, HSTROPN #### [facility] [address] [place] [address] Dr. Sahil Turk AST [Catalytic activity/Vol] 20 U/L Normal 15-37 [facility] Comment on above: Performed By: #### C JAYY, HSTROPN #### [facility] [address] [place] [address] Dr. Sahil Turk Bilirubin [Mass/Vol] 0.5 mg/dL Normal 0.2-1.0 [facility] Comment on above: Performed By: #### C JAYY, HSTROPN #### [facility] [address] [place] [address] Dr. Sahil Turk Calcium [Mass/Vol] 9.5 mg/dL Normal 8.5-10.1 [facility] Comment on above: Performed By: #### C JAYY, HSTROPN #### [facility] [address] [place] [address] Dr. Sahil Turk Chloride [Moles/Vol] 100 mmol/L Normal 98-107 [facility] Comment on above: Performed By: #### C JAYY, HSTROPN #### [facility] [address] [place] [address] Dr. Sahil Turk CO2 [Moles/Vol] 36.1 mmol/L Critically high 21.0-32.0 [facility] Comment on above: Performed By: #### C JAYY, HSTROPN #### [facility] [address] [place] [address] Dr. Sahil Turk Creatinine [Mass/Vol] 1.67 mg/dL Critically high 0.55-1.02 [facility] Comment on above: Performed By: #### C JAYY, HSTROPN #### [facility] [address] [place] [address] Dr. Sahil Turk EGFR-AF BHUTANESE 36 mL/min/1.73m2 Critically low >=60 [facility] Comment on above: Performed By: #### C MP, HSTROPN #### [facility] [address] [place] [address] Dr. Sahil Turk EGFR-NON AF BHUTANESE 30 mL/min/1.73m2 Critically low >=60 [facility] Comment on above: Performed By: #### C JAYY, HSTROPN #### [facility] [address] [address] [address] Sahil Turk Globulin (S) [Mass/Vol] 3.8 g/dL Normal [facility] Comment on above: Performed By: #### C MP, HSTROPN #### [facility] [address] [address] [address] Sahil Turk Glucose [Mass/Vol] 181 mg/dL Critically high 74-106 [facility] Comment on above: Performed By: #### C MP, HSTROPN #### [facility] [address] [place] [address] Dr. Sahil Turk Potassium [Moles/Vol] 3.8 mmol/L Normal 3.5-5.1 [facility] Comment on above: Performed By: #### C MP, HSTROPN #### [facility] [address] [place] [address] Dr. Sahil Turk Protein [Mass/Vol] 7.3 g/dL Normal 6.4-8.2 [facility] Comment on above: Performed By: #### C MP, HSTROPN #### [facility] [address] [place] [address] Dr. Sahil Turk Sodium [Moles/Vol] 142 mmol/L Normal 136-145 [facility] Comment on above: Performed By: #### C MP, HSTROPN #### [facility] [address] [place] [address] Dr. Sahil Turk Urea nitrogen [Mass/Vol] 18.0 mg/dL Normal 7.0-18.0 [facility] Comment on above: Performed By: #### C MP, HSTROPN #### [facility] [address] [place] [address] Dr. Sahil Turk Urea nitrogen/Creatinine [Mass ratio] 10.8 mg/mg Normal [facility] Comment on above: Performed By: #### C MP, HSTROPN #### [facility] [address] [place] [address] Dr. Sahil Turk PROTIMEon 05-27-2022 INR Coag (PPP) [Relative time] 1.09 {INR} Normal [facility] Comment on above: Performed By: #### U RTPCR #### [facility] [address] [place] [address] Dr. Sahil Turk INR GUIDELINES SEE BELOW Normal [facility] Comment on above: Result Comment: LUIS ANGEL RED INR: 2.0 - 3.0 CONDITIONS NOT LISTED BELOW 2.5 - 3.5 FOR PROSTHETIC HEART VALVE REPLACEMENT 2.5 - 3.5 RECURRENT THROMBOSIS Performed By: #### U RTPCR #### [facility] [address] [address] [address] Sahil Turk PT Coag (PPP) [Time] 11.7 s Critically high 9.0-11.6 [facility] Comment on above: Performed By: #### U RTPCR #### [facility] [address] [place] [address] Dr. Sahil Turk PTTon 05-27-2022 aPTT Coag (Bld) [Time] 30.6 s Normal 22.3-36.2 [facility] Comment on above: Performed By: #### U RTPCR #### [facility] [address] [place] [address] Dr. Sahil Turk TROPONIN, HIGH SENSITIVITYon 05-27-2022 HSTROP 7.1 pg/mL Normal 4.0-51.3 [facility] Comment on above: Result Comment: CUT- OFF POINTS HAVE BEEN ESTABLISHED BASED ON THE FOURTH UNIVERSAL DEFINITIONS OF MYOCARDIAL INFARCTION. THE UPPER REFERENCE LIMIT (URL) OF TROPONIN, DEFINED THE 99TH PERCENTILE OF cTnI DISTRIBUTION IN A REFERENCE POPULATION, HAS BEEN CONFIRMED THE DECISION THRESHOLD FOR SC DIAGNOSIS. Performed By: #### C MP, HSTROPN #### [facility] [address] [place] [address] Dr. Sahil Turk URINE MICROSCOPIC ONLYon BACTERIA LARGE Abnormal NONE SEEN [facility] Comment on above: Performed By: #### C MP, HSTROPN #### [facility] [address] [place] [address] Dr. Sahil Turk Bacteria identified Cx Nom (U) INDICATED Normal [facility] Comment on above: Performed By: #### C MP, HSTROPN #### [facility] [address] [address] [address] Saihl Turk CAST NONE SEEN Normal NONE SEEN [facility] Comment on above: Performed By: #### C MP, HSTROPN #### [facility] [address] [place] [address] Dr. Sahil Turk Crystals LM Nom (Urine sed) NONE SEEN Normal NONE SEEN [facility] Comment on above: Performed By: #### C MP, HSTROPN #### [facility] [address] [place] [address] Dr. Sahil Turk Epithelial cells LM Ql (Urine sed) RARE Normal NONE SEEN /RARE [facility] Comment on above: Performed By: #### C MP, HSTROPN #### [facility] [address] [place] [address] Dr. Sahil Turk MUCOUS NONE SEEN Normal NONE SEEN [facility] Comment on above: Performed By: #### C MP, HSTROPN #### [facility] [address] [place] [address] Dr. Shail Turk RBC 0-2 Normal 0-2 [facility] Comment on above: Performed By: #### C MP, HSTROPN #### [facility] [address] [place] [address] Dr. Sahil Turk WBC 0-2 Abnormal NONE SEEN [facility] Comment on above: Performed By: #### C MP, HSTROPN #### [facility] [address] [place] [address] Dr. Sahil Turk XR CHEST 1 Von [...] EDGARD GOMEZ Date: 2022-05-27 21:31 Normal [facility] CULTURE URINEon 03-13-2022 CULTURE URINE Isolate 1 [...] F Trimethoprim/Sulfame thoxazole <=20 S F Normal [facility] Comment on above: Performed By: #### C JAYY HSTROPN #### [facility] [address] [place] [address] Dr. Sahil Turk BNPon 03-11-2022 Natriuretic peptide B (Bld) [Mass/Vol] 449.0 pg/mL Normal <=1,800.0 [facility] Comment on above: Performed By: #### U RTPCR #### [facility] [address] [place] [address] Dr. Sahil Turk CBC AUTO DIFFon 03-11-2022 BASO # 0.0 103/ul Normal 0.0-0.1 [facility] Comment on above: Performed By: #### C JAYY HSTROPN #### [facility] [address] [place] [address] Dr. Sahil Turk Basophils/100 WBC (Bld) 0.6 % Normal 0.2-2.0 [facility] Comment on above: Performed By: #### C JAYY HSTROPN #### [facility] [address] [place] [address] Dr. Sahil Turk EO # 0.1 103/ul Normal 0.0-0.7 [facility] Comment on above: Performed By: #### C JAYY, HSTROPN #### [facility] [address] [place] [address] Dr. Sahil Turk Eosinophils/100 WBC (Bld) 2.8 % Normal 0.9-7.0 [facility] Comment on above: Performed By: #### C JAYY, HSTROPN #### [facility] [address] [place] [address] Dr. Sahil Turk Erythrocyte distribution width (RBC) [Ratio] 13.7 % Normal 11.0-15.0 [facility] Comment on above: Performed By: #### C JAYY, HSTROPN #### [facility] [address] [place] [address] Dr. Sahil Turk Hematocrit (Bld) [Volume fraction] 39.2 % Normal 36.0-48.0 [facility] Comment on above: Performed By: #### C JAYY, HSTROPN #### [facility] [address] [place] [address] Dr. Sahil Turk Hemoglobin (Bld) [Mass/Vol] 12.7 g/dL Normal 12.0-16.0 [facility] Comment on above: Performed By: #### C JAYY, HSTROPN #### [facility] [address] [place] [address] Dr. Sahil Turk IG # 0.01 10e3/ul Normal 0.00-0.03 [facility] Comment on above: Performed By: #### C JAYY, HSTROPN #### [facility] [address] [place] [address] Dr. Sahil Turk IG % 0.2 % Normal 0.0-0.5 [facility] Comment on above: Performed By: #### C JAYY, HSTROPN #### [facility] [address] [place] [address] Dr. Sahil Turk LYMPH # 1.9 103/ul Normal 1.2-3.8 [facility] Comment on above: Performed By: #### C JAYY, HSTROPN #### [facility] [address] [place] [address] Dr. Sahil Turk Lymphocytes/100 WBC (Bld) 37.8 % Normal 20.5-60.0 [facility] Comment on above: Performed By: #### C MP, HSTROPN #### [facility] [address] [place] [address] Dr. Sahil Turk MANUAL DIFF REQ NO Normal [facility] Comment on above: Performed By: #### C MP, HSTROPN #### [facility] [address] [place] [address] Dr. Sahil Turk MCH (RBC) [Entitic mass] 30.5 pg Normal 26.7-34.0 [facility] Comment on above: Performed By: #### C MP, HSTROPN #### [facility] [address] [place] [address] Dr. Sahil Turk MCHC (RBC) [Mass/Vol] 32.4 g/dL Normal 29.9-35.2 [facility] Comment on above: Performed By: #### C MP, HSTROPN #### [facility] [address] [place] [address] Dr. Sahil Turk MCV (RBC) [Entitic vol] 94.0 fL Normal 81.0-99.0 [facility] Comment on above: Performed By: #### C MP, HSTROPN #### [facility] [address] [place] [address] Dr. Sahil Turk MONO # 0.4 103/ul Normal 0.3-0.8 [facility] Comment on above: Performed By: #### C MP, HSTROPN #### [facility] [address] [place] [address] Dr. Sahil Turk Monocytes/100 WBC (Bld) 7.0 % Normal 1.7-12.0 [facility] Comment on above: Performed By: #### C MP, HSTROPN #### [facility] [address] [place] [address] Dr. Sahil Turk NEUT # 2.6 103/ul Normal 1.4-6.5 [facility] Comment on above: Performed By: #### C MP, HSTROPN #### [facility] [address] [place] [address] Dr. Sahil uTrk Neutrophils/100 WBC (Bld) 51.6 % Normal 43.0-75.0 [facility] Comment on above: Performed By: #### C MP, HSTROPN #### [facility] [address] [place] [address] Dr. Sahil Turk Platelet mean volume (Bld) [Entitic vol] 9.9 fL Normal 9.5-13.5 [facility] Comment on above: Performed By: #### C MP, HSTROPN #### [facility] [address] [place] [address] Dr. Sahil Turk PLT 220 103/ul Normal 150-450 [facility] Comment on above: Performed By: #### C MP, HSTROPN #### [facility] [address] [place] [address] Dr. Sahil Turk RBC 4.17 106/ul Critically low 4.20-5.40 [facility] Comment on above: Performed By: #### C JAYY, HSTROPN #### [facility] [address] [place] [address] Dr. Sahil Turk WBC 5.0 103/ul Normal 4.0-11.0 [facility] Comment on above: Performed By: #### C MP, HSTROPN #### [facility] [address] [place] [address] Dr. Sahil Turk ER URINE PROFILEon 2 Bilirubin Ql (U) Negative Normal NEGATIVE [facility] Comment on above: Performed By: #### M G, RENAL, URIC #### [facility] [address] [place] [address] Dr. Sahil Turk Clarity (U) CLEAR Normal CLEAR [facility] Comment on above: Performed By: #### M G, RENAL, URIC #### [facility] [address] [place] [address] Dr. Sahil Turk Color (U) LT. YELLOW Normal YELLOW [facility] Comment on above: Performed By: #### M G, RENAL, URIC #### [facility] [address] [address] [address] Sahil HAINES A micrscopic examination will be performed if indicated. Normal [facility] Comment on above: Performed By: #### M G, RENAL, URIC #### [facility] [address] [address] [address] Sahil Turk Glucose Ql (U) Negative Normal NEGATIVE [facility] Comment on above: Performed By: #### M G, RENAL, URIC #### [facility] [address] [address] [address] Sahil Turk Hemoglobin Ql (U) Negative Normal NEGATIVE [facility] Comment on above: Performed By: #### M G, RENAL, URIC #### [facility] [address] [place] [address] Dr. Sahil Turk Ketones Ql (U) Negative Normal NEGATIVE [facility] Comment on above: Performed By: #### M G, RENAL, URIC #### [facility] [address] [place] [address] Dr. Sahil Turk LEUKOCYTES SMALL Abnormal NEGATIVE [facility] Comment on above: Performed By: #### M G, RENAL, URIC #### [facility] [address] [place] [address] Dr. Sahil Turk Nitrite Ql (U) Positive Abnormal NEGATIVE [facility] Comment on above: Performed By: #### M G, RENAL, URIC #### [facility] [address] [place] [address] Dr. Sahil Turk pH (U) 6.5 [pH] Normal 5-9 [facility] Comment on above: Performed By: #### M G, RENAL, URIC #### [facility] [address] [place] [address] Dr. Sahil Turk SPEC GRAVITY 1.010 Normal 1.005-<=1.0 25 [facility] Comment on above: Performed By: #### M G, RENAL, URIC #### [facility] [address] [place] [address] Dr. Sahil Turk UA PROTEIN Negative Normal NEGATIVE/ TRACE [facility] Comment on above: Performed By: #### M G, RENAL, URIC #### [facility] [address] [place] [address] Dr. Sahil Turk UR MICRO IND INDICATED Normal [facility] Comment on above: Performed By: #### M G, RENAL, URIC #### [facility] [address] [place] [address] Dr. Sahil Turk Urobilinogen Qn (U) 0.2 {Macie'U}/dL Normal 0.2 - 1. 0 [facility] Comment on above: Performed By: #### M G, RENAL, URIC #### [facility] [address] [place] [address] Dr. Sahil Turk LIPASEon 03-11-2022 Lipase [Catalytic activity/Vol] 40.0 U/L Critically low 73.0-393.0 [facility] Comment on above: Performed By: #### U RTPCR #### [facility] [address] [place] [address] Dr. Sahil Turk PROF 14(COMP METB)on 022 Albumin [Mass/Vol] 3.5 g/dL Normal 3.4-5.0 [facility] Comment on above: Performed By: #### M G, RENAL, URIC #### [facility] [address] [place] [address] Dr. Sahil Turk Albumin/Globulin [Mass ratio] 1.1 {ratio} Normal [facility] Comment on above: Performed By: #### M G, RENAL, URIC #### [facility] [address] [place] [address] Dr. Sahil Turk ALP [Catalytic activity/Vol] 69 U/L Normal 46-116 [facility] Comment on above: Performed By: #### M G, RENAL, URIC #### [facility] [address] [place] [address] Dr. Sahil Turk ALT [Catalytic activity/Vol] 18 U/L Normal 14-59 [facility] Comment on above: Performed By: #### M G, RENAL, URIC #### [facility] [address] [address] [address] Sahil Turk Anion gap [Moles/Vol] 10.6 mmol/L Normal [facility] Comment on above: Performed By: #### M G, RENAL, URIC #### [facility] [address] [place] [address] Dr. Sahil Turk AST [Catalytic activity/Vol] 21 U/L Normal 15-37 [facility] Comment on above: Performed By: #### M G, RENAL, URIC #### [facility] [address] [address] [address] Sahil Turk Bilirubin [Mass/Vol] 0.4 mg/dL Normal 0.2-1.0 [facility] Comment on above: Performed By: #### M G, RENAL, URIC #### [facility] [address] [place] [address] Dr. Sahil Turk Calcium [Mass/Vol] 9.6 mg/dL Normal 8.5-10.1 [facility] Comment on above: Performed By: #### M G, RENAL, URIC #### [facility] [address] [place] [address] Dr. Sahil Turk Chloride [Moles/Vol] 102 mmol/L Normal 98-107 [facility] Comment on above: Performed By: #### M G, RENAL, URIC #### [facility] [address] [address] [address] Sahil Turk CO2 [Moles/Vol] 33.1 mmol/L Critically high 21.0-32.0 [facility] Comment on above: Performed By: #### M G, RENAL, URIC #### [facility] [address] [address] [address] Sahil Turk Creatinine [Mass/Vol] 1.40 mg/dL Critically high 0.55-1.02 [facility] Comment on above: Performed By: #### M G, RENAL, URIC #### [facility] [address] [address] [address] Sahil Turk EGFR-AF BHUTANESE 44 mL/min/1.73m2 Critically low >=60 [facility] Comment on above: Performed By: #### M G, RENAL, URIC #### [facility] [address] [place] [address] Dr. Sahil Turk EGFR-NON AF BHUTANESE 36 mL/min/1.73m2 Critically low >=60 [facility] Comment on above: Performed By: #### M G, RENAL, URIC #### [facility] [address] [place] [address] Dr. Sahil Turk Globulin (S) [Mass/Vol] 3.3 g/dL Normal [facility] Comment on above: Performed By: #### M G, RENAL, URIC #### [facility] [address] [place] [address] Dr. Sahil Turk Glucose [Mass/Vol] 107 mg/dL Critically high 74-106 [facility] Comment on above: Performed By: #### M G, RENAL, URIC #### [facility] [address] [place] [address] Dr. Sahil Turk Potassium [Moles/Vol] 3.7 mmol/L Normal 3.5-5.1 [facility] Comment on above: Performed By: #### M G, RENAL, URIC #### [facility] [address] [place] [address] Dr. Sahil Turk Protein [Mass/Vol] 6.8 g/dL Normal 6.4-8.2 [facility] Comment on above: Performed By: #### M G, RENAL, URIC #### [facility] [address] [place] [address] Dr. Sahil Turk Sodium [Moles/Vol] 142 mmol/L Normal 136-145 [facility] Comment on above: Performed By: #### M G, RENAL, URIC #### [facility] [address] [place] [address] Dr. Sahil Turk Urea nitrogen [Mass/Vol] 16.0 mg/dL Normal 7.0-18.0 [facility] Comment on above: Performed By: #### M G, RENAL, URIC #### [facility] [address] [place] [address] Dr. Sahil Turk Urea nitrogen/Creatinine [Mass ratio] 11.4 mg/mg Normal [facility] Comment on above: Performed By: #### M G, RENAL, URIC #### [facility] [address] [place] [address] Dr. Sahil Turk PROTIMEon 03-11-2022 INR Coag (PPP) [Relative time] 1.03 {INR} Normal [facility] Comment on above: Performed By: #### C MP, HSTROPN #### [facility] [address] [place] [address] Dr. Sahil Turk INR GUIDELINES SEE BELOW Normal [facility] Comment on above: Result Comment: LUIS ANGEL RED INR: 2.0 - 3.0 CONDITIONS NOT LISTED BELOW 2.5 - 3.5 FOR PROSTHETIC HEART VALVE REPLACEMENT 2.5 - 3.5 RECURRENT THROMBOSIS Performed By: #### C MP, HSTROPN #### [facility] [address] [place] [address] Dr. Sahil Turk PT Coag (PPP) [Time] 11.1 s Normal 9.0-11.6 [facility] Comment on above: Performed By: #### C MP, HSTROPN #### [facility] [address] [place] [address] Dr. Sahil Turk PTTon 03-11-2022 aPTT Coag (Bld) [Time] 25.4 s Normal 22.3-36.2 [facility] Comment on above: Performed By: #### C MP, HSTROPN #### [facility] [address] [place] [address] Dr. Sahil Turk TROPONIN, HIGH SENSITIVITYon 03-11-2022 HSTROP 7.5 pg/mL Normal 4.0-51.3 [facility] Comment on above: Result Comment: CUT- OFF POINTS HAVE BEEN ESTABLISHED BASED ON THE FOURTH UNIVERSAL DEFINITIONS OF MYOCARDIAL INFARCTION. THE UPPER REFERENCE LIMIT (URL) OF TROPONIN, DEFINED THE 99TH PERCENTILE OF cTnI DISTRIBUTION IN A REFERENCE POPULATION, HAS BEEN CONFIRMED THE DECISION THRESHOLD FOR SC DIAGNOSIS. Performed By: #### M G, RENAL, URIC #### [facility] [address] [address] [address] Sahil Turk HSTROP 7.9 pg/mL Normal 4.0-51.3 [facility] Comment on above: Result Comment: CUT- OFF POINTS HAVE BEEN ESTABLISHED BASED ON THE FOURTH UNIVERSAL DEFINITIONS OF MYOCARDIAL INFARCTION. THE UPPER REFERENCE LIMIT (URL) OF TROPONIN, DEFINED THE 99TH PERCENTILE OF cTnI DISTRIBUTION IN A REFERENCE POPULATION, HAS BEEN CONFIRMED THE DECISION THRESHOLD FOR SC DIAGNOSIS. Performed By: #### U RTPCR #### [facility] [address] [address] [address] Sahil Turk URINE MICROSCOPIC ONLYon BACTERIA SMALL Abnormal NONE SEEN [facility] Comment on above: Performed By: #### M G, RENAL, URIC #### [facility] [address] [place] [address] Dr. Sahil Turk Bacteria identified Cx Nom (U) INDICATED Normal [facility] Comment on above: Performed By: #### M G, RENAL, URIC #### [facility] [address] [place] [address] Dr. Sahil Turk CAST NONE SEEN Normal NONE SEEN [facility] Comment on above: Performed By: #### M G, RENAL, URIC #### [facility] [address] [place] [address] Dr. Sahil Turk Crystals LM Nom (Urine sed) NONE SEEN Normal NONE SEEN [facility] Comment on above: Performed By: #### M G, RENAL, URIC #### [facility] [address] [place] [address] Dr. Sahil Turk Epithelial cells LM Ql (Urine sed) RARE Normal NONE SEEN /RARE [facility] Comment on above: Performed By: #### M G, RENAL, URIC #### [facility] [address] [place] [address] Dr. Sahil Turk MUCOUS NONE SEEN Normal NONE SEEN [facility] Comment on above: Performed By: #### M G, RENAL, URIC #### [facility] [address] [place] [address] Dr. Sahil Turk RBC 0-2 Normal 0-2 [facility] Comment on above: Performed By: #### M G, RENAL, URIC #### [facility] [address], [place] [address] Dr. Sahil Turk WBC 5-10 Abnormal NONE SEEN [facility] Comment on above: Performed By: #### M G, RENAL, URIC #### [facility] [address], [place] [address] Dr. Sahil Turk XR CHEST 1 Von [...] HAWK MUNGUIA Date: 2022-03-11 14:27 Normal [facility] CT CSPINE WO CONon 2 CT CSPINE [...] by: LEISA CELAYA Date: 2022-02-22 08:[address] [facility] [address] HEAD WO CONon 02-21-2022 CT HEAD [...] ANDRADE LEWIS Date: 2022-02-21 16:40 Normal [facility] CT LSPINE WO CONon 2 CT LSPINE WO CON EXAMINATION: CT LSPINE WO CON, 02/21/2022, 3:54 PM EDT HISTORY: Pain COMPARISON: None. TECHNIQUE: CT of the lumbar spine was performed without IV contrast. CT dose reduction technique was used, including Automated Exposure Control. 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 MINERALIZATION: Probable mild osteopenia. 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 Order #: [id number] CLICK HERE TO VIEW EXAM ECHOCARDIOGRAM REPORT [...] Herrera M.D. on 01/06/2022 at 17:18 Normal [facility] PTH INTACTon 12-11-2021 PTH, Intact 31 pg/mL Normal 15-65 [facility] Comment on above: Performed By: #### C MP, HSTROPN #### [facility] [address] [place] [address] Dr. Sahil Turk FERRITINon 12-10-2021 Ferritin [Mass/Vol] 53.0 ng/mL Normal 8.0-252.0 [facility] Comment on above: Performed By: #### C MP, HSTROPN #### [facility] [address] [place] [address] Dr. Sahil Turk HEMOGRAM AND PLATELon 2021 Hematocrit (Bld) [Volume fraction] 38.4 % Normal 36.0-48.0 [facility] Comment on above: Performed By: #### M G, RENAL, URIC #### [facility] [address] [place] [address] Dr. Sahil Turk Hemoglobin (Bld) [Mass/Vol] 12.5 g/dL Normal 12.0-16.0 [facility] Comment on above: Performed By: #### M G, RENAL, URIC #### [facility] [address] [place] [address] Dr. Sahil Turk MCH (RBC) [Entitic mass] 29.4 pg Normal 26.7-34.0 [facility] Comment on above: Performed By: #### M G, RENAL, URIC #### [facility] [address] [place] [address] Dr. Sahil Turk MCHC (RBC) [Mass/Vol] 32.6 g/dL Normal 29.9-35.2 [facility] Comment on above: Performed By: #### M G, RENAL, URIC #### [facility] [address] [address] [address] Sahil Turk MCV (RBC) [Entitic vol] 90.4 fL Normal 81.0-99.0 [facility] Comment on above: Performed By: #### M G, RENAL, URIC #### [facility] [address] [address] [address] Sahil Turk PLT 263 103/ul Normal 150-450 [facility] Comment on above: Performed By: #### M G, RENAL, URIC #### [facility] [address] [address] [address] Sahil Turk RBC 4.25 106/ul Normal 4.20-5.40 [facility] Comment on above: Performed By: #### M G, RENAL, URIC #### [facility] [address] [address] [address] Sahil Turk WBC 7.1 103/ul Normal 4.0-11.0 [facility] Comment on above: Performed By: #### M G, RENAL, URIC #### [facility] [address] [address] [address] Sahil Turk IRON AND TIBCon 12-10-2021 % SATURATION 20.3 % Normal [facility] Comment on above: Performed By: #### C MP, HSTROPN #### [facility] [address] [address] [address] Sahil Turk Iron [Mass/Vol] 61.0 ug/dL Normal 50.0-170.0 [facility] Comment on above: Performed By: #### C MP, HSTROPN #### [facility] [address] [address] [address] Sahil Turk TIBC DIRECT 300.0 ug/dL Normal 250.0-450.0 [facility] Comment on above: Performed By: #### C JAYY, HSTROPN #### [facility] [address] [address] [address] Sahil Turk MAGNESIUMon 12-10-2021 Magnesium [Mass/Vol] 1.7 mg/dL Critically low 1.8-2.4 [facility] Comment on above: Performed By: #### M G, RENAL, URIC #### [facility] [address] [address] [address] Sahil Turk RENAL FUNCTION PANELon 12-10 Albumin [Mass/Vol] 3.7 g/dL Normal 3.4-5.0 [facility] Comment on above: Performed By: #### M G, RENAL, URIC #### [facility] [address] [place] [address] Dr. Sahil Turk Calcium [Mass/Vol] 9.6 mg/dL Normal 8.5-10.1 [facility] Comment on above: Performed By: #### M G, RENAL, URIC #### [facility] [address] [place] [address] Dr. Sahil Turk Chloride [Moles/Vol] 102 mmol/L Normal 98-107 [facility] Comment on above: Performed By: #### M G, RENAL, URIC #### [facility] [address] [place] [address] Dr. Sahil Turk CO2 [Moles/Vol] 28.3 mmol/L Normal 21.0-32.0 [facility] Comment on above: Performed By: #### M G, RENAL, URIC #### [facility] [address] [place] [address] Dr. Sahil Turk Creatinine [Mass/Vol] 1.42 mg/dL Critically high 0.55-1.02 [facility] Comment on above: Performed By: #### M G, RENAL, URIC #### [facility] [address] [place] [address] Dr. Sahil Turk EGFR-AF BHUTANESE 43 mL/min/1.73m2 Critically low >=60 [facility] Comment on above: Performed By: #### M G, RENAL, URIC #### [facility] [address] [place] [address] Dr. Sahil Turk EGFR-NON AF BHUTANESE 36 mL/min/1.73m2 Critically low >=60 [facility] Comment on above: Performed By: #### M G, RENAL, URIC #### [facility] [address] [address] [address] Sahil Turk Glucose [Mass/Vol] 112 mg/dL Critically high 74-106 T [facility] Comment on above: Performed By: #### M G, RENAL, URIC #### [facility] [address] [address] [address] Sahil Turk Phosphate [Mass/Vol] 3.4 mg/dL Normal 2.6-4.7 [facility] Comment on above: Performed By: #### M G, RENAL, URIC #### [facility] [address] [address] [address] Sahil Turk Potassium [Moles/Vol] 3.9 mmol/L Normal 3.5-5.1 [facility] Comment on above: Performed By: #### M G, RENAL, URIC #### [facility] [address] [place] [address] Dr. Sahil Turk Sodium [Moles/Vol] 140 mmol/L Normal 136-145 [facility] Comment on above: Performed By: #### M G, RENAL, URIC #### [facility] [address] [address] [address] Sahil Turk Urea nitrogen [Mass/Vol] 29.0 mg/dL Critically high 7.0-18 .0 [facility] Comment on above: Performed By: #### M G, RENAL, URIC #### [facility] [address] [place] [address] Dr. Sahil Turk UA RANDOM W/MICROSCOPICon BACTERIA NONE SEEN Normal NONE SEEN [facility] Comment on above: Performed By: #### M G, RENAL, URIC #### [facility] [address] [address] [address] Sahil Turk Bilirubin Ql (U) Negative Normal NEGATIVE [facility] Comment on above: Performed By: #### M G, RENAL, URIC #### [facility] [address] [place] [address] Dr. Sahil Turk CAST NONE SEEN Normal NONE SEEN [facility] Comment on above: Performed By: #### M G, RENAL, URIC #### [facility] [address] [place] [address] Dr. Sahil Turk Clarity (U) CLEAR Normal CLEAR [facility] Comment on above: Performed By: #### M G, RENAL, URIC #### [facility] [address] [place] [address] Dr. Sahil Turk Color (U) LT. YELLOW Normal YELLOW [facility] Comment on above: Performed By: #### M G, RENAL, URIC #### [facility] [address] [place] [address] Dr. Sahil Turk Crystals LM Nom (Urine sed) NONE SEEN Normal NONE SEEN [facility] Comment on above: Performed By: #### M G, RENAL, URIC #### [facility] [address] [place] [address] Dr. Sahil Turk Epithelial cells LM Ql (Urine sed) NONE SEEN Normal NONE SEEN /RARE [facility] Comment on above: Performed By: #### M G, RENAL, URIC #### [facility] [address] [place] [address] Dr. Sahil Turk Glucose Ql (U) Negative Normal NEGATIVE [facility] Comment on above: Performed By: #### M G, RENAL, URIC #### [facility] [address] [place] [address] Dr. Sahil Turk Hemoglobin Ql (U) Negative Normal NEGATIVE [facility] Comment on above: Performed By: #### M G, RENAL, URIC #### [facility] [address] [place] [address] Dr. Sahil Turk Ketones Ql (U) Negative Normal NEGATIVE [facility] Comment on above: Performed By: #### M G, RENAL, URIC #### [facility] [address] [place] [address] Dr. Sahil Turk LEUKOCYTES Negative Normal NEGATIVE [facility] Comment on above: Performed By: #### M G, RENAL, URIC #### [facility] [address] [place] [address] Dr. Sahil Turk MUCOUS NONE SEEN Normal NONE SEEN [facility] Comment on above: Performed By: #### M G, RENAL, URIC #### [facility] [address] [address] [address] Sahil Turk Nitrite Ql (U) Negative Normal NEGATIVE [facility] Comment on above: Performed By: #### M G, RENAL, URIC #### [facility] [address] [address] [address] Sahil Turk pH (U) 7.0 [pH] Normal 5-9 [facility] Comment on above: Performed By: #### M G, RENAL, URIC #### [facility] [address] [place] [address] Dr. Sahil Turk RBC NONE SEEN Abnormal 0-2 [facility] Comment on above: Performed By: #### M G, RENAL, URIC #### [facility] [address] [place] [address] Dr. Sahil Turk SPEC GRAVITY 1.010 Normal 1.005-<=1.0 25 [facility] Comment on above: Performed By: #### M G, RENAL, URIC #### [facility] [address] [place] [address] Dr. Sahil Turk UA PROTEIN Negative Normal NEGATIVE/ TRACE [facility] Comment on above: Performed By: #### M G, RENAL, URIC #### [facility] [address] [address] [address] Sahil Turk Urobilinogen Qn (U) 0.2 {Macei'U}/dL Normal 0.2 - 1. 0 [facility] Comment on above: Performed By: #### M G, RENAL, URIC #### [facility] [address] [place] [address] Dr. Sahil Turk WBC NONE SEEN Normal NONE SEEN [facility] Comment on above: Performed By: #### M G, RENAL, URIC #### [facility] [address] [place] [address] Dr. Sahil Turk URIC ACID SERUMon 12-10-2021 Urate [Mass/Vol] 6.6 mg/dL Critically high 2.6-6.0 [facility] Comment on above: Performed By: #### M G, RENAL, URIC #### [facility] [address] [address] [address] Sahil Turk URINE T PROTEIN CREAT RATIOo n 12-10-2021 UR TOTAL PROTEIN <6.0 Normal <=12.0 [facility] Comment on above: Performed By: #### U RTPCR #### [facility] [address] [address] [address] Sahil Turk URINE CREAT <13.00 Critically low 20.00-300.0 0 [facility] Comment on above: Performed By: #### U RTPCR #### [facility] [address] [address] [address] Sahil Turk VITAMIN D 25 OHon 12-10-2021 VIT D 25-OH 91.7 ng/mL Normal [facility] Comment on above: Performed By: #### C JAYY, HSTROPN #### [facility] [address] [place] [address] Dr. Sahil Turk VIT D RANGES SEE BELOW Normal [facility] Comment on above: Result Comment: <20 ng/mL Vit D deficient 20 - <30 ng/mL Vit D insufficient 30 - 100 ng/mL Vit D sufficient >100 ng/mL Potential Toxicity Performed By: #### C JAYY, HSTROPN #### [facility] [address] [place] [address] Dr. Sahil Turk US KEVIN DOP LEG [...] by: LINDA REED Date: 2021-11-16 16:33 Normal [facility] FERRITINon 06-13-2021 Ferritin [Mass/Vol] 44 ng/mL Normal 15-150 [facility] Comment on above: Performed By: #### U RTPCR #### [facility] [address] [address] [address] Sahil Turk PTH INTACTon 06-13-2021 PTH, Intact 53 pg/mL Normal 15-65 [facility] Comment on above: Performed By: #### P THINT #### [facility] [address] [address] [address] Sahil Turk VIT D 25-OH [facility]on 2021 Vitamin D, 25-Hydroxy 50.5 ng/mL Normal 30.0-100.0 [facility] Comment on above: Result Comment: Barbie min D deficiency has been defined by the [place] [employer] and an Endocrine Society practice guideline as a level of serum 25-OH vitamin D less than 20 ng/mL (1,2). The Endocrine Society went on to further define vitamin D insufficiency as a level between 21 and 29 ng/mL (2). 1. IOM ([place] [employer]). 2010. Dietary reference intakes for calcium and D. [place]: The National Academies Press. 2. Benjamín MF, Vikram [place], Kira HERNANDEZ, et al. Evaluation, treatment, and prevention of vitamin D deficiency: an Endocrine Society clinical practice guideline. JCEM. 2010; 96(7):1911-30. Performed By: #### M G, RENAL, URIC #### [facility] [address] [place] [address] Dr. Sahil Turk HEMOGRAM AND PLATELon 2021 Hematocrit (Bld) [Volume fraction] 37.7 % Normal 36.0-48.0 [facility] Comment on above: Performed By: #### M G, RENAL, URIC #### [facility] [address] [place] [address] Dr. Sahil Turk Hemoglobin (Bld) [Mass/Vol] 12.2 g/dL Normal 12.0-16.0 [facility] Comment on above: Performed By: #### M G, RENAL, URIC #### [facility] [address] [place] [address] Dr. Sahil Turk MCH (RBC) [Entitic mass] 29.9 pg Normal 26.7-34.0 [facility] Comment on above: Performed By: #### M G, RENAL, URIC #### [facility] [address] [address] [address] Sahil Turk MCHC (RBC) [Mass/Vol] 32.4 g/dL Normal 29.9-35.2 [facility] Comment on above: Performed By: #### M G, RENAL, URIC #### [facility] [address] [address] [address] Sahil Turk MCV (RBC) [Entitic vol] 92.4 fL Normal 81.0-99.0 [facility] Comment on above: Performed By: #### M G, RENAL, URIC #### [facility] [address] [address] [address] Sahil Turk PLT 246 103/ul Normal 150-450 [facility] Comment on above: Performed By: #### M G, RENAL, URIC #### [facility] [address] [place] [address] Dr. Sahil Turk RBC 4.08 106/ul Critically low 4.20-5.40 [facility] Comment on above: Performed By: #### M G, RENAL, URIC #### [facility] [address] [place] [address] Dr. Sahil Turk WBC 5.7 103/ul Normal 4.0-11.0 [facility] Comment on above: Performed By: #### M G, RENAL, URIC #### [facility] [address] [place] [address] Dr. Sahil Turk IRON AND TIBCon 06-12-2021 % SATURATION 18.3 % Normal [facility] Comment on above: Performed By: #### U RTPCR #### [facility] [address] [place] [address] Dr. Sahil Turk Iron [Mass/Vol] 54.0 ug/dL Normal 37.0-170.0 [facility] Comment on above: Performed By: #### U RTPCR #### [facility] [address] [place] [address] Dr. Sahil Turk TIBC DIRECT 295.0 ug/dL Normal 261.0-497.0 [facility] Comment on above: Performed By: #### U RTPCR #### [facility] [address] [place] [address] Dr. Sahil Turk MAGNESIUMon 06-12-2021 Magnesium [Mass/Vol] 1.9 mg/dL Normal 1.6-2.3 [facility] Comment on above: Performed By: #### R ENAL, URIC, MG #### [facility] [address] [place] [address] Dr. Sahil Turk RENAL FUNCTION PANELon 06-12 Albumin [Mass/Vol] 3.7 g/dL Normal 3.5-5.0 [facility] Comment on above: Performed By: #### R ENAL, URIC, MG #### [facility] [address] [place] [address] Dr. Sahil Turk Calcium [Mass/Vol] 9.7 mg/dL Normal 8.4-10.2 [facility] Comment on above: Performed By: #### R ENAL, URIC, MG #### [facility] [address] [place] [address] Dr. Sahil Turk Chloride [Moles/Vol] 103 mmol/L Normal 98-107 [facility] Comment on above: Performed By: #### R ENAL, URIC, MG #### [facility] [address] [place] [address] Dr. Sahil Turk CO2 [Moles/Vol] 32.0 mmol/L Critically high 22.0-30.0 [facility] Comment on above: Performed By: #### R ENAL, URIC, MG #### [facility] [address] [place] [address] Dr. Sahil Turk Creatinine [Mass/Vol] 1.42 mg/dL Critically high 0.52-1.04 [facility] Comment on above: Performed By: #### R ENAL, URIC, MG #### [facility] [address] [place] [address] Dr. Sahil Turk EGFR-AF BHUTANESE 43 mL/min/1.73m2 Critically low >=60 [facility] Comment on above: Performed By: #### R ENAL, URIC, MG #### [facility] [address] [address] [address] Sahil Turk EGFR-NON AF BHUTANESE 36 mL/min/1.73m2 Critically low >=60 [facility] Comment on above: Performed By: #### R ENAL, URIC, MG #### [facility] [address] [address] [address] Sahil Turk Glucose [Mass/Vol] 101 mg/dL Normal 74-106 [facility] Comment on above: Performed By: #### R ENAL, URIC, MG #### [facility] [address] [address] [address] Sahil Turk Phosphate [Mass/Vol] 3.3 mg/dL Normal 2.5-4.5 [facility] Comment on above: Performed By: #### R ENAL, URIC, MG #### [facility] [address] [address] [address] Sahil Turk Potassium [Moles/Vol] 4.1 mmol/L Normal 3.4-5.0 [facility] Comment on above: Performed By: #### R ENAL, URIC, MG #### [facility] [address] [address] [address] Sahil Turk Sodium [Moles/Vol] 142 mmol/L Normal 137-145 [facility] Comment on above: Performed By: #### R ENAL, URIC, MG #### [facility] [address] [address] [address] Sahil Turk Urea nitrogen [Mass/Vol] 19.0 mg/dL Critically high 7.0-17 .0 [facility] Comment on above: Performed By: #### R ENAL, URIC, MG #### [facility] [address] [address] [address] Sahil Turk UA RANDOM W/MICROSCOPICon BACTERIA LARGE Abnormal NONE SEEN [facility] Comment on above: Performed By: #### M G, RENAL, URIC #### [facility] [address] [address] [address] Sahil Turk Bilirubin Ql (U) Negative Normal NEGATIVE [facility] Comment on above: Performed By: #### M G, RENAL, URIC #### [facility] [address] [address] [address] Sahil Turk CAST NONE SEEN Normal NONE SEEN [facility] Comment on above: Performed By: #### M G, RENAL, URIC #### [facility] [address] [address] [address] Sahil Turk Clarity (U) SL CLOUDY Abnormal CLEAR [facility] Comment on above: Performed By: #### M G, RENAL, URIC #### [facility] [address] [address] [address] Sahil Turk Color (U) LT. YELLOW Normal YELLOW [facility] Comment on above: Performed By: #### M G, RENAL, URIC #### [facility] [address] [place] [address] Dr. Sahil Turk Crystals LM Nom (Urine sed) NONE SEEN Normal NONE SEEN [facility] Comment on above: Performed By: #### M G, RENAL, URIC #### [facility] [address] [place] [address] Dr. Sahil Turk Epithelial cells LM Ql (Urine sed) RARE Normal NONE SEEN /RARE [facility] Comment on above: Performed By: #### M G, RENAL, URIC #### [facility] [address] [place] [address] Dr. Sahil Turk Glucose Ql (U) Negative Normal NEGATIVE [facility] Comment on above: Performed By: #### M G, RENAL, URIC #### [facility] [address] [place] [address] Dr. Sahil Turk Hemoglobin Ql (U) Negative Normal NEGATIVE [facility] Comment on above: Performed By: #### M G, RENAL, URIC #### [facility] [address] [place] [address] Dr. Sahil Turk Ketones Ql (U) Negative Normal NEGATIVE [facility] Comment on above: Performed By: #### M G, RENAL, URIC #### [facility] [address] [place] [address] Dr. Sahil Turk LEUKOCYTES SMALL Abnormal NEGATIVE [facility] Comment on above: Performed By: #### M G, RENAL, URIC #### [facility] [address] [address] [address] Sahil Turk MUCOUS NONE SEEN Normal NONE SEEN [facility] Comment on above: Performed By: #### M G, RENAL, URIC #### [facility] [address] [address] [address] Sahil Turk Nitrite Ql (U) Positive Abnormal NEGATIVE [facility] Comment on above: Performed By: #### M G, RENAL, URIC #### [facility] [address] [address] [address] Sahil Turk pH (U) 8.0 [pH] Normal 5-9 [facility] Comment on above: Performed By: #### M G, RENAL, URIC #### [facility] [address] [place] [address] Dr. Sahil Turk RBC 0-2 Normal 0-2 [facility] Comment on above: Performed By: #### M G, RENAL, URIC #### [facility] [address] [address] [address] Sahil Turk SPEC GRAVITY 1.015 Normal 1.005-<=1.0 25 [facility] [facility] Comment on above: Performed By: #### M G, RENAL, URIC #### [facility] [address] [address] [address] Sahil Turk UA PROTEIN Negative Normal NEGATIVE/ TRACE [facility] Comment on above: Performed By: #### M G, RENAL, URIC #### [facility] [address] [address] [address] Shail Turk Urobilinogen Qn (U) 0.2 {Macie'U}/dL Normal 0.2 - 1. 0 [facility] Comment on above: Performed By: #### M G, RENAL, URIC #### [facility] [address] [address] [address] Sahil Turk WBC 10-20 Abnormal NONE SEEN [facility] Comment on above: Performed By: #### M G, RENAL, URIC #### [facility] [address] [address] [address] Sahil Turk URIC ACID SERUMon 06-12-2021 Urate [Mass/Vol] 7.7 mg/dL Critically high 2.5-6.2 [facility] Comment on above: Performed By: #### R ENAL, URIC, MG #### [facility] [address] [address] [address] Sahil Turk URINE T PROTEIN CREAT RATIOo n 06-12-2021 Protein (U) [Mass/Vol] 24.9 mg/dL Critically high <=12.0 [facility] Comment on above: Performed By: #### C JAYY, HSTROPN #### [facility] [address] [address] [address] Sahil Turk UR PROT CREAT RAT 0.33 Normal [facility] Comment on above: Performed By: #### C JAYY, HSTROPN #### [facility] [address] [address] [address] Sahil Turk URINE CREAT 76.21 mg/dL Normal 20.00-300.0 0 [facility] Comment on above: Performed By: #### C MP, HSTROPN #### [facility] [address] [place] [address] Dr. Sahil Turk Vital Signs Date Time Vital Sign Value Performing Clinician Facility 04-06-2024 18:18-0400 Hourly Rounding Ronobir AMPARO [facility] 04-06-2024 18:18-0400 Promise to Return Ronobir AMPARO [facility] 04-06-2024 17:21-0400 Diastolic blood pressure 82 mm[Hg] Ronobir AMPARO [facility] 04-06-2024 17:21-0400 Systolic blood pressure 156 mm[Hg] Ronobir AMPARO [facility] 04-06-2024 17:19-0400 Diastolic blood pressure 80 mm[Hg] Ronobir AMPARO [facility] 04-06-2024 17:19-0400 Heart rate 70 /min Ronobir AMPARO [facility] 04-06-2024 17:19-0400 Systolic blood pressure 171 mm[Hg] Ronobir AMPARO [facility] 04-06-2024 17:16-0400 Hourly Rounding Ronobir AMPARO [facility] 04-06-2024 17:16-0400 Promise to Return Ronobir AMPARO [facility] 04-06-2024 16:06-0400 Hourly Rounding Ronobir AMPARO [facility] 04-06-2024 16:06-0400 Promise to Return Ronobir AMPARO [facility] 04-06-2024 15:54-0400 gluc 137 mg/dL Ronobir AMPARO [facility] 04-06-2024 15:34-0400 SaO2% (BldA) [Mass fraction] 95 % Ronobir AMPRAO [facility] 04-06-2024 15:27-0400 Heart rate 67 /min Ronobir AMPARO [facility] 04-06-2024 15:27-0400 SaO2% (BldA) [Mass fraction] 94 % Ronobir AMPARO [facility] 04-06-2024 15:25-0400 Diastolic blood pressure 86 mm[Hg] Ronobir AMPARO [facility] 04-06-2024 15:25-0400 Mean blood pressure 109 mm[Hg] Ronobir AMPARO [facility] 04-06-2024 15:25-0400 Systolic blood pressure 156 mm[Hg] Ronobir AMPARO [facility] 04-06-2024 15:25-0400 Body temperature 97.52 [degF] Ronobir AMPARO [facility] 04-06-2024 15:00-0400 Respiratory rate 18 /min Ronobir AMPARO [facility] 04-06-2024 11:46-0400 gluc 236 mg/dL Ronobir AMPARO [facility] 04-06-2024 11:21-0400 Heart rate 79 /min Ronobir AMPARO [facility] 04-06-2024 11:21-0400 SaO2% (BldA) [Mass fraction] 95 % Ronobir AMPARO [facility] 04-06-2024 11:18-0400 Mean blood pressure 90 mm[Hg] Ronobir AMPARO [facility] 04-06-2024 11:18-0400 Body temperature 97.88 [degF] Ronobir AMPARO [facility] 04-06-2024 07:53-0400 gluc 123 mg/dL Ronobir AMPARO [facility] 04-06-2024 07:35-0400 Mean blood pressure 102 mm[Hg] Ronobir AMPARO [facility] 04-06-2024 07:35-0400 Body temperature 97.7 [degF] Ronobir AMPARO [facility] 04-06-2024 01:03-0400 Body temperature 98.24 [degF] Ronobir AMPARO [facility] 04-06-2024 01:03-0400 Mean blood pressure 86 mm[Hg] Ronobir AMPARO [facility] 04-06-2024 01:03-0400 Respiratory rate 18 /min Ronobir AMPARO [facility] 04-05-2024 16:24-0400 Blood Pressure Location Ronobir AMAPRO [facility] 04-05-2024 11:00-0400 Body temperature 98.06 [degF] Ronobir AMPARO [facility] 04-05-2024 11:00-0400 Mean blood pressure 83 mm[Hg] Ronobir AMPARO [facility] 04-05-2024 07:00-0400 Body temperature 97.52 [degF] Ronobir AMPARO [facility] 04-05-2024 07:00-0400 Mean blood pressure 78 mm[Hg] Ronobir AMPARO [facility] 04-04-2024 17:00-0400 Blood Pressure Location Ronobir AMPARO [facility] 04-04-2024 17:00-0400 Respiratory rate 67 /min Ronobir AMPARO [facility] 04-04-2024 05:00-0400 Respiratory rate 20 /min Ronobir AMPARO [facility] 04-04-2024 03:32-0400 Heart rate 89 /min Ronobir AMPARO [facility] 04-04-2024 03:32-0400 Respiratory rate 24 /min Ronobir AMPARO [facility] 04-04-2024 00:30-0400 Heart rate 114 /min Ronobir AMPARO [facility] 04-02-2024 15:50-0400 Body height 152.4 cm [facility] 04-02-2024 15:50-0400 Body mass index (BMI) [Ratio] 38.2 kg/m2 [facility] 04-02-2024 15:50-0400 Body temperature 98.4 [degF] [facility] 04-02-2024 15:50-0400 Body weight 88.9 kg [facility] 04-02-2024 15:50-0400 Diastolic blood pressure 69 mm[Hg] [facility] 04-02-2024 15:50-0400 Heart rate 83 /min [facility] 04-02-2024 15:50-0400 SaO2% (BldA) [Mass fraction] 97 % [facility] 04-02-2024 15:50-0400 Systolic blood pressure 112 mm[Hg] [facility] 03-19-2024 10:59-0400 Body height 152.4 cm [facility] 03-19-2024 10:59-0400 Body mass index (BMI) [Ratio] 38.5 kg/m2 [facility] 03-19-2024 10:59-0400 Body weight 89.35 kg [facility] 03-19-2024 10:59-0400 Diastolic blood pressure 74 mm[Hg] [facility] 03-19-2024 10:59-0400 Heart rate 80 /min [facility] 03-19-2024 10:59-0400 Respiratory rate 16 /min [facility] 03-19-2024 10:59-0400 SaO2% (BldA) [Mass fraction] 98 % [facility] 03-19-2024 10:59-0400 Systolic blood pressure 114 mm[Hg] [facility] 12-20-2023 11:19-0400 Body height 152.4 cm [facility] 12-20-2023 11:19-0400 Body mass index (BMI) [Ratio] 36.9 kg/m2 [facility] 12-20-2023 11:19-0400 Body weight 85.72 kg [facility] 12-20-2023 11:19-0400 Diastolic blood pressure 74 mm[Hg] [facility] 12-20-2023 11:19-0400 Heart rate 74 /min [facility] 12-20-2023 11:19-0400 SaO2% (BldA) [Mass fraction] 97 % [facility] 12-20-2023 11:19-0400 Systolic blood pressure 124 mm[Hg] [facility] 12-12-2023 13:18-0400 Body height 152.4 cm [facility] 12-12-2023 13:18-0400 Body mass index (BMI) [Ratio] 36.8 kg/m2 [facility] 12-12-2023 13:18-0400 Body weight 85.44 kg [facility] 12-12-2023 13:18-0400 Diastolic blood pressure 68 mm[Hg] [facility] 12-12-2023 13:18-0400 Heart rate 88 /min [facility] 12-12-2023 13:18-0400 Systolic blood pressure 121 mm[Hg] [facility] 11-22-2023 12:05-0400 Body height 149.9 cm Zach Bui MD Work Phone: [facility] 11-22-2023 12:05-0400 Body mass index (BMI) [Ratio] 36.76 kg/m2 Zach Bui MD Work Phone: [facility] 11-22-2023 12:05-0400 Body weight 82.56 kg Zach Bui MD Work Phone: [facility] 11-22-2023 12:05-0400 Diastolic blood pressure 67 mm[Hg] Zach Bui MD Work Phone: [facility] 11-22-2023 12:05-0400 Heart rate 80 /min Zach Bui MD Work Phone: [facility] 11-22-2023 12:05-0400 Systolic blood pressure 122 mm[Hg] Zach Bui MD Work Phone: [facility] 08-02-2023 13:08-0500 Hourly Rounding [facility] 08-02-2023 13:08-0500 Promise to Return [facility] 08-02-2023 12:08-0500 Hourly Rounding [facility] 08-02-2023 12:08-0500 Promise to Return [facility] 08-02-2023 11:31-0500 Heart rate 85 /min [facility] 08-02-2023 11:31-0500 SaO2% (BldA) [Mass fraction] 94 % [facility] 08-02-2023 11:25-0500 Diastolic blood pressure 69 mm[Hg] [facility] 08-02-2023 11:25-0500 Mean blood pressure 83 mm[Hg] [facility] 08-02-2023 11:25-0500 Systolic blood pressure 110 mm[Hg] [facility] 08-02-2023 11:25-0500 Body temperature 97.34 [degF] [facility] 08-02-2023 11:08-0500 Hourly Rounding [facility] 08-02-2023 11:08-0500 Promise to Return [facility] 08-02-2023 11:00-0500 Respiratory rate 18 /min [facility] 08-02-2023 08:27-0500 Heart rate 74 /min [facility] 08-02-2023 08:27-0500 SaO2% (BldA) [Mass fraction] 93 % [facility] 08-02-2023 08:24-0500 Body temperature 97.88 [degF] [facility] 08-02-2023 08:24-0500 Diastolic blood pressure 72 mm[Hg] [facility] 08-02-2023 08:24-0500 Mean blood pressure 90 mm[Hg] [facility] 08-02-2023 08:24-0500 Systolic blood pressure 124 mm[Hg] [facility] 08-02-2023 00:20-0500 Body temperature 97.88 [degF] [facility] 08-02-2023 00:20-0500 Diastolic blood pressure 82 mm[Hg] [facility] 08-02-2023 00:20-0500 Heart rate 71 /min [facility] 08-02-2023 00:20-0500 Mean blood pressure 90 mm[Hg] [facility] 08-02-2023 00:20-0500 SaO2% (BldA) [Mass fraction] 94 % [facility] 08-02-2023 00:20-0500 Systolic blood pressure 112 mm[Hg] [facility] 08-01-2023 12:00-0500 Respiratory rate 16 /min [facility] 07-31-2023 16:26-0500 Blood Pressure Location [facility] 07-31-2023 16:26-0500 Heart rate 65 /min [facility] 07-31-2023 16:26-0500 Respiratory rate 18 /min [facility] 07-31-2023 11:28-0500 Blood Pressure Location [facility] 07-31-2023 11:28-0500 Heart rate 70 /min [facility] 07-31-2023 10:43-0500 Mean blood pressure 82 mm[Hg] [facility] 07-31-2023 10:43-0500 Respiratory rate 18 /min Christieesha Zayas [facility] 07-31-2023 10:00-0500 Mean blood pressure 69 mm[Hg] Christieesha Zayas [facility] 07-31-2023 10:00-0500 Respiratory rate 20 /min [facility] 07-31-2023 09:45-0500 Mean blood pressure 70 mm[Hg] Christieesha Zayas [facility] 07-30-2023 20:31-0500 Heart rate 75 /min [facility] 06-15-2023 11:20-0500 Body height 152.4 cm Yaneth Germania Other [employer] Other 06-15-2023 11:20-0500 Body mass index (BMI) [Ratio] 35.35 kg/m2 Yaneth Germania Other [employer] Other 06-15-2023 11:20-0500 Body temperature 98.7 [degF] Yaneth Germania Other [employer] Other 06-15-2023 11:20-0500 Body weight 82.1 kg Yaneth Germania Other [employer] Other 06-15-2023 11:20-0500 Diastolic blood pressure 75 mm[Hg] Yaneth Germania Other [employer] Other 06-15-2023 11:20-0500 Respiratory rate 18 /min Yaneth Germania Other [employer] Other 06-15-2023 11:20-0500 SaO2% (BldA) [Mass fraction] 96 % Yaneth Germania Other [employer] Other 06-15-2023 11:20-0500 Systolic blood pressure 111 mm[Hg] Yaneth Solo Other [employer] Other 06-02-2023 14:15-0500 Body height 152.4 cm Harpal Hayes Other [employer] Other 06-02-2023 14:15-0500 Body mass index (BMI) [Ratio] 35.27 kg/m2 Harpal Hayes Other [employer] Other 06-02-2023 14:15-0500 Body weight 81.92 kg Harpal Hayes Other [employer] Other 06-02-2023 14:15-0500 Diastolic blood pressure 76 mm[Hg] Harpal Hayes Other [employer] Other 06-02-2023 14:15-0500 SaO2% (BldA) [Mass fraction] 96 % Harpal Hayes Other [employer] Other 06-02-2023 14:15-0500 Systolic blood pressure 134 mm[Hg] Harpal Hayes Other [employer] Other 03-07-2023 10:15-0400 Body height 152.4 cm Harpal Hayes Other [employer] Other 03-07-2023 10:15-0400 Body mass index (BMI) [Ratio] 36.83 kg/m2 Harpal Hayes Other [employer] Other 03-07-2023 10:15-0400 Body weight 85.55 kg Harpal Hayes Other [employer] [facility] Other 03-07-2023 10:15-0400 Diastolic blood pressure 82 mm[Hg] Harpal Hayes Other [employer] Other 03-07-2023 10:15-0400 SaO2% (BldA) [Mass fraction] 93 % Harpal Hayes Other [employer] Other 03-07-2023 10:15-0400 Systolic blood pressure 140 mm[Hg] Harpal Hayes Other [employer] Other 12-20-2022 11:20-0400 Body height 152.4 cm Yaneth Germania Other [employer] Other 12-20-2022 11:20-0400 Body temperature 96.7 [degF] Yaneth Germania Other [employer] Other 12-20-2022 11:20-0400 Diastolic blood pressure 67 mm[Hg] Yaneth Germania Other [employer] Other 12-20-2022 11:20-0400 Respiratory rate 18 /min Yaneth Germania Other [employer] Other 12-20-2022 11:20-0400 SaO2% (BldA) [Mass fraction] 97 % Yaneth Germania Other [employer] Other 12-20-2022 11:20-0400 Systolic blood pressure 104 mm[Hg] Yaneth Germania Other [employer] Other 06-14-2022 12:40-0500 Body height 152.4 cm Yaneth Germania Other [employer] Other 06-14-2022 12:40-0500 Body mass index (BMI) [Ratio] 35.15 kg/m2 Yaneth Germania Other [employer] Other 06-14-2022 12:40-0500 Body temperature 97.3 [degF] Yaneth Germania Other [employer] Other 06-14-2022 12:40-0500 Body weight 81.65 kg Yaneth Germania Other [employer] Other 06-14-2022 12:40-0500 Diastolic blood pressure 73 mm[Hg] Yaneth Germania Other [employer] Other 06-14-2022 12:40-0500 Respiratory rate 18 /min Yaneth Germania Other [employer] Other 06-14-2022 12:40-0500 SaO2% (BldA) [Mass fraction] 95 % Yaneth Germania Other [employer] Other 06-14-2022 12:40-0500 Systolic blood pressure 115 mm[Hg] Yaneth Germania Other [employer] Other 01-08-2022 03:50-0400 Diastolic blood pressure 80 mm[Hg] [email or web address] 01-08-2022 03:50-0400 Heart rate 82 /min [email or web address] 01-08-2022 03:50-0400 Respiratory rate 16 /min [email or web address] 01-08-2022 03:50-0400 SaO2% (BldA) [Mass fraction] 100 % [email or web address] 01-08-2022 03:50-0400 Systolic blood pressure 140 mm[Hg] [facility] 06-18-2021 12:00-0500 Body height 152.4 cm Yaneth Germania Other [employer] Other 06-18-2021 12:00-0500 Body temperature 96.3 [degF] Yaneth Germania Other [employer] Other 06-18-2021 12:00-0500 Diastolic blood pressure 74 mm[Hg] Yaneth Germania Other [employer] Other 06-18-2021 12:00-0500 Respiratory rate 18 /min Yaneth Germania Other [employer] Other 06-18-2021 12:00-0500 SaO2% (BldA) [Mass fraction] 96 % Yaneth Germania Other [employer] Other 06-18-2021 12:00-0500 Systolic blood pressure 120 mm[Hg] Yaneth Germania Other [employer] Other Encounters Encounter Date Encounter Type Care Provider Facility Start: 05-28-2024 End: 05-28-2024 ambulatory [facility] Start: 04-04-2024 End: 04-06-2024 Evaluation and management of inpatient Ronobir R AMPARO [place] [place] Start: 04-04-2024 Emergency department patient visit DO Terry Delvalle [place] [place] Start: 04-04-2024 End: 04-06-2024 Evaluation and management of inpatient Ronobir R AMPARO [facility] Start: 04-02-2024 End: 04-02-[address] [facility] Work Phone: Start: 04-02-2024 End: 04-02-2024 Patient encounter procedure [facility] Physician [facility] Work Phone: Start: 03-19-2024 End: 03-19-[address] [facility] Work Phone: Start: 03-19-2024 End: 03-19-2024 Patient encounter procedure [facility] Physician [facility] Work Phone: Start: 01-16-2024 Non-patient / Non-visit [facility] Physician [facility] Work Phone: Start: 12-20-2023 End: 12-20-[address] [facility] Work Phone: Start: 12-20-2023 End: 12-20-2023 Patient encounter procedure [facility] Physician [facility] Work Phone: Start: 12-13-2023 Non-patient / Non-visit [facility] Physician [facility] Work Phone: Start: 12-12-2023 End: 12-12-[address] [facility] Work Phone: Start: 12-12-2023 End: 12-12-2023 Patient encounter procedure [facility] Physician [facility] Work Phone: Start: 11-22-2023 End: 11-22-2023 Office outpatient visit 15 minutes Zach Bui MD Work Phone: [facility] Comment on above: Urge incontinence (P rimary Dx) Start: 11-22-2023 End: 11-22-2023 ambulatory ZACH BUI [facility] Start: 11-07-2023 End: 11-07-2023 ambulatory [facility] Start: 08-10-2023 End: 08-10-2023 ambulatory [facility] Start: 07-31-2023 End: 08-02-2023 Evaluation and management of inpatient Christie Zayas Facility:[facility] Start: 07-30-2023 End: 08-02-2023 Evaluation and management of inpatient Christie Zayas [facility] Start: 07-11-2023 End: 07-11-2023 ambulatory LINDA ROUSE Not Available Start: 06-23-2023 End: 06-23-2023 ambulatory Harpal Hayes Other [employer] Other Start: 06-23-2023 Telephone encounter Harpal Hayes [facility] Start: 06-22-2023 End: 06-22-2023 ambulatory Harpal Hayes Other [employer] Other Start: 06-22-2023 Telephone encounter Harpal Hayes [facility] Start: 06-15-2023 End: 06-15-2023 ambulatory Yaneth Germania Other [employer] Other Start: 06-15-2023 Office outpatient vi sit 25 minutes Yaneth Germania [facility] Start: 06-02-2023 End: 06-02-2023 ambulatory Harpal Hayes Other [employer] Other Start: 06-02-2023 Office outpatient vi sit 15 minutes Harpal Hayes [facility] Start: 05-24-2023 End: 05-24-2023 ambulatory Harpal Hayes Other [employer] Other Start: 05-24-2023 Telephone encounter Harpal Hayes [facility] Start: 05-18-2023 End: 05-18-2023 ambulatory Harpal Hayes Other [employer] Other Start: 05-18-2023 Telephone encounter Harpal Hayes [facility] Start: 05-09-2023 End: 05-09-2023 ambulatory Harpal Hayes Other [employer] Other Start: 05-09-2023 Telephone encounter Harpal Freddy [facility] Start: 03-15-2023 End: 03-15-2023 ambulatory Harpal Freddy Other [employer] Other Start: 03-15-2023 Telephone encounter Harpal Hayes [facility] Start: 03-07-2023 End: 03-07-2023 ambulatory Harpal Freddy Other [employer] Other Start: 03-07-2023 Office outpatient vi sit 25 minutes Harpal Freddy [facility] Start: 03-07-2023 Telephone encounter Harpal Hayes [facility] Start: 02-23-2023 End: 02-23-2023 ambulatory Harpal Freddy Other [employer] Other Start: 02-23-2023 Telephone encounter Harpal Hayes [facility] Start: 02-18-2023 End: 02-18-2023 ambulatory Harpal Freddy Other [employer] Other Start: 02-18-2023 Telephone encounter Harpal Freddy [facility] Start: 01-27-2023 End: 01-27-2023 ambulatory Harpal Freddy Other [employer] Other Start: 01-27-2023 Telephone encounter Harpal Hayes [facility] Start: 01-11-2023 End: 01-11-2023 ambulatory Harpal Freddy Other [employer] Other Start: 01-11-2023 Telephone encounter Harpal Hayes [facility] Start: 12-20-2022 End: 12-20-2022 ambulatory Yaneth Germania Other [employer] Other Start: 12-20-2022 Office outpatient vi sit 25 minutes Yaneth Germania [facility] Start: 12-06-2022 End: 12-06-2022 ambulatory Yaneth Germania Other [employer] Other Start: 12-06-2022 Telephone encounter Yaneth Germania [facility] Start: 12-06-2022 End: 12-06-2022 [facility] Start: 12-03-2022 End: 12-17-2022 Evaluation and management of inpatient Og TOLBERT [facility] Start: 12-01-2022 End: 12-01-2022 [facility]-Site [facility] Start: 11-15-2022 End: 11-15-2022 Off-Site [facility] Start: 11-14-2022 End: 12-01-2022 Evaluation and management of inpatient Og TOLBERT [facility] Start: 06-14-2022 End: 06-14-2022 ambulatory Yaneth Germania Other [employer] Other Start: 06-14-2022 Office outpatient vi sit 25 minutes Yaneth Germania [facility] Start: 06-09-[address] HARPAL HAYES [facility] ity:[facility] Start: 05-27-2022 End: 05-27-[address] SULEMAN OLSEN Facility:[facility] Start: 04-26-2022 Gynecological examination normal Harpal Hayes Other [employer] Other Start: 03-11-2022 End: 03-11-2022 ambulatory CHRISTOPHER ABARCA Facility:[facility] Start: 02-21-2022 End: 02-21-2022 ambulatory ANDRADE LEWIS Facility:[facility] Start: 02-18-2022 End: 02-24-2022 ambulatory UNKNOWN PROVIDER Facility:[facility] Start: 01-08-2022 End: 01-08-2022 ambulatory [facility] T[facility] Treat and Transport Start: 01-08-2022 End: 01-08-2022 Emergency department patient visit [facility] Emergency Triage, Treat and Transport Comment on above: Arrived Start: 01-06-2022 End: 01-07-2022 ambulatory MEI DAS Facility:[facility] Start: 12-10-2021 End: 12-11-2021 ambulatory YANETH GERMANIA Facility:[facility] Start: 11-16-2021 End: 11-17-[address] LINDA REED Facility:[facility] Start: 09-28-2021 End: 10-28-[address] HARPAL HAYES Facility:[facility] Start: 08-31-[address] HARPAL HAYES Facil ity:[facility] Start: 06-18-2021 End: 06-18-2021 ambulatory Yaneth Germania Other [employer] Other Start: 06-18-2021 Office outpatient vi sit 25 minutes Yaneth Germania [facility] Start: 06-12-2021 End: 06-13-2021 ambulatory YANETH GERMANIA Facility: Start: 06-09-2017 End: 06-10-2017 Ambulatory DEFAULT PHYSICIAN Facility:[facility] Start: 06-07-2017 End: 06-08-2017 Ambulatory DEFAULT PHYSICIAN Facility:[facility] Start: 06-02-2017 End: 06-03-2017 Ambulatory DEFAULT PHYSICIAN Facility:[facility] Start: 05-10-2017 End: 05-11-2017 Ambulatory DEFAULT PHYSICIAN Facility:[facility] Procedures Date Procedure Procedure Detail [...] Treatment Date Care Activity Detail Author Start: 11-21-2024 Adult BMI Screening Adult BMI Screening [facility] Start: 11-21-2024 Tobacco Screening Tobacco Screening [facility] Start: 11-20-2024 End: 11-20-2024 Patient encounter procedure 11/20/2024 1:15 PM EDT Office Visit [facility] [address] [place] [address] [place] [address] Zach Bui MD [facility] [place] [address] [facility] Start: 02-05-2024 Influenza vaccination Influenza Vaccine [facility] Start: 03-06-2022 Influenza vaccination Influenza Vaccine (#1) [facility] Start: 01-08-2022 Welcome to Medicare Visit (G0402) Welcome to Medicare Visit (G0402) [facility] Start: 2009 Fall Risk Screening Fall Risk Screening [facility] Start: 2009 Pneumococcal vaccination Pneumococcal Vaccine(s) (65+ yrs) (1 - PCV) [facility] Start: 2009 Screening for osteoporosis Bone Densitometry [facility] Start: 1994 Administration of varicella zoster vaccine Zoster (Shingles) Vaccine (1 of 2) [facility] Start: 1994 Shingles (RZV) Vaccine (1 of 2) Shingles (RZV) Vaccine (1 of 2) [facility] Start: 1963 DTaP,Tdap and Td Vaccines (1 - Tdap) DTaP,Tdap and Td Vaccines (1 - Tdap) [facility] Start: 1962 Adult BMI Follow Up Plan Adult BMI Follow Up Plan [facility] Start: 1962 Hepatitis C screening Hepatitis C Antibody [facility] Start: 1962 Tetanus + diphtheria + acellular pertussis vaccine (product) Tdap Booster [facility] Start: 1956 Depression Screening Depression Screening [facility] Start: 1944 COVID-19 Vaccine (#1) COVID-19 Vaccine (#1) [facility] Start: 1944 Medicare Annual Wellness Visit Medicare Annual Wellness Visit [facility] Renal function 2000 panel - Serum or Plasma [facility] Immunizations Immunization Date Immunization Notes Care Provider Ning smith NEGATED: Highlighted row has not occurred! 6 pneumococcal polysaccharide vaccine, 23 valent Patient Objection Yaneth Solo Other [employer] Other Payers Date Payer Category Payer Medicaid [place]ICAID [place] [employer] -[place] ONLY [id number] 2017-Present [phone] [address] [place] [address] [id number] 2017 Unknown [id number] 1994 Medicare [id number] 1959 Medicare [id number] 2.16.840.1.724109.19 1944 Unknown [id number] 2.16.840.1.599217.3.579.2.732 1944 Unknown [id number] 2.16.840.1.538963.3.579.2.593 1944 Unknown [id number] 2.16.840.1.659853.3.579.2.593 1944 Unknown [id number] 2.16.840.1.429213.3.579.2.593 1944 Unknown [id number] 2.16.840.1.339962.3.579.2.593 1944 Unknown [id number] 2.16.840.1.078644.3.579.2.593 1944 Unknown [id number] 2.16.840.1.406663.3.579.2.593 1944 Unknown [id number] 2.16.840.1.458206.3.579.2.593 1944 Unknown [id number] 2.16.840.1.611771.3.579.2.593 1944 Unknown [id number] 2.16.840.1.206123.3.579.2.593 1944 Unknown [id number] 2.16.840.1.937733.3.579.2.593 1944 Unknown [id number] 2.16.840.1.916656.3.579.2.1259 1944 Unknown [id number] 2.16.840.1.750461.3.579.2.1286 1944 Unknown [id number] 2.16.840.1.350428.3.579.2.727 1944 Unknown [id number] 2.16.840.1.766178.3.579.2.727 1944 Unknown [id number] 2.16.840.1.099338.3.579.2.727 1944 Unknown [id number] 2.16.840.1.325790.3.579.2.727 1944 Unknown [id number] 2.16.840.1.627646.3.579.2.727 1944 Unknown [id number] 2.16.840.1.490916.3.579.2.727 1944 Unknown [id number] 2.16.840.1.796798.3.579.2.727 1944 Unknown [id number] 2.16.840.1.384467.3.579.2.727 1944 Unknown [id number] 2.16.840.1.952393.3.579.2.727 1944 Unknown [id number] 2.16.840.1.890590.3.579.2.727 1944 Unknown [id number] 2.16.840.1.592974.3.579.2.727 1944 Unknown [id number] 2.16.840.1.334891.3.579.2.727 1944 Unknown [id number] 2.16.840.1.420957.3.579.2.727 Self-pay Self Pay [id number] Unknown Social History Date Type Detail Facility Unknown if ever smoked [employer] Other Start: 07-17-2020 End: 11-22-2023 Sex Assigned At [facility] Tobacco smoking status AZIS [facility] Start: 1945 [facility] smoking status No Smoking Status Entered [facility] Start: 07-27-2018 End: 04-21-2022 Tobacco smoking status NHIS Never smoked tobacco (finding) [facility] Start: 1945 Sex Assigned At Female F [facility] Tobacco [facility] Comment on above: Denies. Start: 04-21-2022 Tobacco use and exposure Smokeless tobacco non-user [facility] Start: 11-22-2023 Alcoholic beverage intake Ex-drinker (finding) [facility] Start: 07-17-2020 End: 11-22-2023 History of Social function [facility] Childcare Unknown [facility] Functional Status Date Assessment Result Facility 04-04-2024 Functional Status No [facility] 04-04-2024 Functional Status [facility] 07-31-2023 Functional Status No [facility] 07-30-2023 Functional Status [facility] Clinical Notes 06-18-2021 to 05-28-2024 Note Date & Type Note Facility 05-28-[address] [facility] Note Chief Complaint: Patient here for 6 mo follow up CAD, tricuspid valve disorder, HFpEF, and hypertension. She was [place] [facility] [place] and [...] no interventions. 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 H (more content not included)... [facility] 04-11-2024 Note Microbiology PROCEDURE: Blood Culture Charcoal [R1] SOURCE: Blood BODY SITE: Wrist R COLLECTED DATE/TIME: 04/04/2024 01:09 EDT RECEIVED DATE/TIME: 04/04/2024 01:27 EDT START DATE/TIME: 04/04/2024 01:27 EDT FREE TEXT SOURCE: Dokken DO, Kaylinn A Doestefani DO, Kaylinn A FINAL REPORTS Final Report [] Verified Date/Time: 04/11/2024 03:00 EST No growth at 7 days. Performing Locations R1: This test [facility] performed at: [facility], [address] [place] [address], [facility] , , [facility] Comment on above: Performed By: #### 1 [id number] #### [facility] [address] [place] [address] 04-11-2024 Note Microbiology PROCEDURE: Blood Culture Charcoal [...] Locations R1: This test was performed at: [employer], [address] [place] [address], [address] [place] [address], [phone] [place] [address] Comment on above: Performed By: #### 1 [id number] #### [facility] [address] [place] [address] 04-11-2024 Note Microbiology PROCEDURE: Blood Culture Charcoal [...] Locations R1: This test was performed at: [facility], [address] [place] [address], [address] [place] [address], [phone] [address] Comment on above: Performed By: #### 1 [id number] #### [facility] [address] [place], [place] [id number] 04-11-2024 Note Microbiology PROCEDURE: Blood Culture Charcoal [R1] SOURCE: Blood BODY SITE: Arm R COLLECTED DATE/TIME: 04/04/2024 01:09 EDT RECEIVED DATE/TIME: 04/04/2024 01:27 EDT START DATE/TIME: 04/04/2024 01:27 EDT FREE TEXT SOURCE: Peripheral vein site #1 Dokken DO, Kaylinn A Dokken DO, Kaylinn A FINAL REPORTS Final Report [] Verified Date/Time: 04/11/2024 03:00 EST No growth at 7 days. Performing Locations R1: This test was performed at: [facility], [address] [place] [address], [address] [place] [address], [phone] [place] [address] Comment on above: Performed By: #### 1 [id number] #### [facility] [address] [place] [address] 04-06-2024 Hospital Discharge instructions Patient Education 04/06/2024 15:10:57 Community-Acquired Pneumonia, Adult, Uthi-vu-Oqan Community-Acquired Pneumonia, Adult Pneumonia is an infection [...] Follow these instructions at home: Medicines Take zypz-ivl-ogzcrkr and prescription medicines only as told by [...] cannot use soap and water, use hand pierce and shave press operator. Contact a doctor if: You have a [...] provider. Document Revised: 07/21/2022 Document Reviewed: 07/21/2022 [employer] Patient Education 2023 [employer] Pinche. 04/06/2024 15:10:57 Sepsis, Self Care, Adult Sepsis, [...] Follow these instructions at home: Medicines Take vbbf-txk-lbiizyi and prescription medicines only as told by [...] and water are not available, use hand pierce and shave press operator. Practice good hygiene. Keep cuts clean and [...] right away. Call your local emergency services (730 in the [place] Do not drive yourself to the hospital. If you ever feel like you may hurt yourself or others, or have thoughts about taking your own life, get help right away. Go to your nearest emergency department or: Call your local emergency services (369 in the [place] Call a suicide crisis helpline, such as the National Suicide Prevention Lifeline at or 822 in the [place] This is open 24 hours a day. Text the Crisis Text Line at 732702 (in the [place] Summary Sepsis is a [...] provider. Document Revised: 04/25/2023 Document Reviewed: 04/25/2023 [employer] Patient Education 2023 [employer] Pinche. 04/06/2024 15:10:57 Sepsis, Diagnosis, Adult Sepsis, Diagnosis, [...] Follow these instructions at home: Medicines Take vafy-mta-wpscbzl and prescription medicines only as told by [...] provider. Document Revised: 04/25/2023 Document Reviewed: 04/25/2023 [employer] Patient Education 2023 Haha Pinche. Follow Up Care 04/04/2024 00:26:14 With:Toby Santiago Address: [facility] [place] [address]- Business (1) When:05/07/2024 14:00:00 With:Brianne Jane Address: [address] [place] [address], [address] [address] [phone] Business (1) When:5 to 7 days Comments:Doctor's office is closed for the day. Please call Tuesday to make hospital follow up appointment. With:Follow up with your primary cardiology team as soon as possible Address:Unknown When: Unknown With:HARPAL HAYES Address: [address] [place], [place] [id number]- Business (1) When:04/12/2024 11:30:00 With:Patient is currenct with [facility] [employer]. Address:Unknown When: Unknown [facility] 04-06-2024 Note Discharge Summary Admission and Discharge Information Admit Date/Time:04/04/2024 02:13 Admitting Physician - Tika CHRISTENSEN DO Consulting Physician - Delphine BRIGGS, Briseida HU, XXXX Admitting Diagnoses: Discharge Order Date Discharge [...] and hypoxemia at TOA. Johann Patterson () [phone], pt. is a FULL CODE, he states no prolonged code situation. -Pt. and her have made dgt. Lilian DPOA- [phone]. 1. Acute respiratory failure with hypoxia (J96.01: [...] -May d/c from cardio standpoint, F/U w/ [facility] in [place] 6. Acute kidney injury superimposed on stage 3b chronic kidney disease (N17.9: Acute kidney failure, unspecified) Likely 2/2 dehydration 2/2 sepsis 2/2 PNA c/w furosemide use -Baseline Cr 1.3 -1.5 -IVF as above -Renal US - await nephro input -04/04: Bladder scan 397ml, PVR - 90ml -Trend BMP -Avoid nephrotoxic medications as much as possible -Consult nephrology: -DC IVF -Resume lasix -May d/c from nephro standpoint 7. Anemia (D64.9: [...] as above -Tx. as above -PT/OT - HHC w/ thera (more content not included)... [facility] Comment on above: Result Comment: Elec tronically Signed By: Akua NICHOLSON\.br\Date and Time Signed: 04/06/24 15:33 EDT\.br\Electronically Co-Signed By: Miugel Ramires DO\.br\Date and Time Co-Signed: 04/06/24 16:58 EDT 04-06-2024 Evaluation + Plan note Extrac olamide from: Title:Discharge Note Author:HARRY MRATEL, Madeline nee Date:04/06/24 Hemodynamically stable condi tion Discharge To, [...] tab(s), SubLingual, q5min, PRN, Unable to obtain [place] 325 mg-5 mg oral tablet, 1 tab(s), [...] Information HARPAL FREDDY 04/12/2024 11:30 AM EST [facility] [place] [address]- Business (1) Additional Instructions: Brianne Jane Within 5 to [address], [address] [address] [phone] Business (1) Additional Instructions: Toby Santiago Within 5 to [address] [place] [address]- Business (1) Additional Instructions: Follow up with your primary cardiology team as soon as possible Additional Instructions: Patient is currenct with [facility]. Additional Instructions: Community-Acquired Pneumonia, Adult, Udvj-uz-Nbyz Sepsis, Self Care, Adult Sepsis, Diagnosis, Adult Extracted from: Title:Acute Renal Failure * Author:Cait Santiago MD Date:04/05/24 Impression and Plan 1.ADIA: From hemodynamic [...] no interventions. Need to follow-up with her inspector packer glass container after discharge 2 dyspnea in the presence [...] placed on hold Extracted from: Title:APSO Note Author:Akua NICHOLSON ate:04/05/24 Johann Patterson () , pt. is a FULL CODE, he states no prolonged code situation. -He has appointed Dgt. Lilian Shah as primary spokesperson for all communication: [phone]. 1. Acute respiratory failure with hypoxia (J96.01: Acute respiratory failure with hypoxia) 2/2 PNA w/ failed outpt. zpak for bronchitis -Denies home 02 or cpap/bipap use - attempt to wean to NC today -Supplemental 02 - BNP 161 -Tx. as below -Low threshold for PCCM consult if not improving in a.m. Ordered: [facility] Hospital Care/Day High 50 Minutes [id number] 2. Sepsis (A41.9: Sepsis, unspecified organism) 2/2 [...] & folate def. -Baseline hgb. level - 11 -Downtrending today -> hold heparin sq -Hemoccult [...] deep vein thrombosis (DVT) prophylaxis (Z79.899: Other retirement (current) drug therapy) -Hold heparin sq 2/2 [...] Plan Post Void Residual Procalcitonin Referral to [facility] Stool Occult Blood Troponin 0 Hr. -Plan discussed w/ patient, nursing staff and CRM. This report was transcribed using voice recognition software. Every effort was made to ensure accuracy, however, inadvertently computerized client support manager mistakes may be present. Extracted from: Title:Acute Renal Failure * Author:Jack BRIGGS, Cait bloom Date:04/04/24 Impression and Plan 1.ADIA: From unknown [...] -Max trop 67 - likely type II SC 2/2 demand ischemia 2/2 hypoxia/sepsis 2/2 PNA [...] -> ferrous sulfate 325mg daily (was on // dosing), miralax daily, folic acid 1g daily [...] deep vein thrombosis (DVT) prophylaxis (Z79.899: Other retirement (current) drug therapy) -Heparin sq with early [...] Dehydrogenase Post Void Residual Procalcitonin Referral to [facility] Reticulocyte Count TIBC Calculated TSH With T4fr Reflex Vitamin B12 Level -Plan discussed w/ patient, nursing staff and CRM. This report was transcribed using voice recognition software. Every effort was made to ensure accuracy, however, inadvertently computerized client support manager mistakes may be present. Addendum by Akua NICHOLSON on April 04, 2024 12:47:39 EDT BNP, echo - pending, DC IVF per nephro. Addendum by Akua NICHOLSON on April 04, 2024 14:20:30 EDT Johann Patterson called in and stated that he would prefer his step dgt. Lilian Shah be point of contact for all information [phone] Extracted from: Title:Admission H & P Author:Tika [...] deep vein thrombosis (DVT) prophylaxis (Z79.899: Other intermodal customer service (current) drug therapy) SCD, heparin Orders: acetaminophen, [...] Therapy PT & PTT Rapid COVID Antigen [place] Sputum Culture Troponin Troponin 1 Hr. Troponin 3 Hr. UA with Cult Rflx XR Chest Single View [facility] 10-31-2024 NoteProgress Note-Physician Patient: NADIA PATTERSON [...] date 04/04/24 3:00:00 EDT, 04/04/24 2:42:00 EDT [place] 325 mg-5 mg oral tablet: 1 tab(s), [...] EDT Prescriptions Prescribed nathaly (more content not included)...[facility] Result Comment: Electronically Signed By: Jack BRIGGS, Toby\.br\Date and Time Signed: 04/05/24 15:[id number] NoteProgress Note-Physician Patient: NADIA PATTERSON Age: 78 [...] I learned that she has followed with [facility] cardiology in [place] and has had previous cardiac catheterization but with no intervention. She follows with cardiology at [place] in [place] on regular basis. She has been having [...] the troponin. I suggested to let her inspector packer glass container decide whether further cardiac investigation will be [...] mg = 1 tab(s), PRN, SubLingual, q5min [place] 325 mg-5 mg oral tablet 1 tab(s), [...] 10 mg 0.5 tab(s) (more content not included)...[facility]:Result Comment: Electronically Signed By: Delphine BRIGGS, Briseida\.br\Date and Time Signed: 04/05/24 14:19 [id number] Note Echocardiology Procedure Exam Date/Time Accession # Ordering Echo Transthoracic w/ 04/04/2024 15:12 EDT [id number] HARRY AGACNP-BCAkua Contrast CPT code C8929 Reason for Exam (Echo Transthoracic w/ Contrast) Shortness of breath (SOB) Report [facility] [address] [place] [address] Adult Echocardiogram Report Name: NADIA PATTERSON Study Date: 04/04/2024 02:05 PM BP: 101/57 mmHg Patient [facility]: [facility]06 01 [facility] Bed(s) [facility] HR: 69 : 1945 Gender: Female Height: 62 in Age: 78 yrs Ethnicity: T Weight: 196 lb Reason For Study: Shortness of breath (SOB) BSA: 1.9 m2 History: HTN, DM, CKD, Anemia, Dementia Ordering Physician: Akua MCDONALD Performed By: Joana Beckman [facility] Interpretation Summary The left ventricle is normal [...] Briseida Akers MD Transcribed by: [facility] Technologist: [facility]10-31-2024 Note Interdisciplinary Note - PT PT Evaluation completed with an . Pt was able to perform bed mobility with CGA, but does need CGA/Min A to ambulate. Pt does have some unsteadiness when ambulating with FWW along with increased weakness. Will continue to follow daily. SNF recommended at this time, but do anticipate improvement. Will follow daily with [facility]10-31-2024 NoteProgress Note-Physician Assessment/Plan Johann Patterson () [phone], pt. is a FULL CODE, he states no prolonged code situation. -He has appointed Dgt. Lilian Shah as primary spokesperson for all communication: [phone]. 1. Acute respiratory failure with hypoxia (J96.01: Acute respiratory failure with hypoxia) 2/2 PNA w/ failed outpt. zpak for bronchitis -Denies home 02 or cpap/bipap use - attempt to wean to NC today -Supplemental 02 -BNP 161 -Tx. as below -Low threshold for PCCM consult if not improving in a.m. [facility]Day High 50 Minutes [id number] 2. Sepsis (A41.9: Sepsis, unspecified organism) 2/2 [...] deep vein thrombosis (DVT) prophylaxis (Z79.899: Other intermodal customer service (current) drug therapy) -Hold heparin sq 2/2 [...] 1 EA, Powder (more content not included)... [facility]:Result Comment: Electronically Signed By: Akua NICHOLSON\.br\Date and Time Signed: 04/05/24 09:59 EDT\.br\Electronically Co-Signed By: Miguel Ramires DO\.br\Date and Time Co-Signed: 04/05/24 10:03 [id number] NoteConsultation Note Patient: NADIA PATTERSON Age: 78 [...] 6:33:00 EDT Prescriptions Prescribe (more content not included)...[facility]:Result Comment: Electronically Signed By: Toby Santiago MD\.br\Date and Time Signed: 04/04/24 15:[id number] NoteConsultation Note Patient: NADIA PATTERSON Age: 78 [...] mg = 1 tab(s), PRN, SubLingual, q5min [place] 325 mg-5 mg oral tablet 1 tab(s), [...] ondansetron 2 mg/mL Inj (more content not included)...[facility] Center[facility]:Result Comment: Electronically Signed By: Delphine BRIGGS, Briseida\.br\Date and Time Signed: 04/04/24 15:23 [id number] Note Interdisciplinary Note - OT Attempted to see patient for OT evaluation however pt was undergoing testing in her room upon attempt. Will follow up as appropriate.[facility] 04-04-2024 NoteProgress Note-Physician Assessment/Plan Johann Patterson () [phone], pt. is a FULL CODE, he states [...] -Max trop 67 - likely type II SC 2/2 demand ischemia 2/2 hypoxia/sepsis 2/2 PNA [...] deep vein thrombosis (DVT) prophylaxis (Z79.899: Other retirement (current) drug therapy) -Heparin sq with early [...] Dehydrogenase Post Void Residual Procalcitonin Referral to [facility] Reticulocyte Count TIBC Calculated TSH With T4fr Reflex Vitamin B12 Level -Plan discussed w/ patient, nursing staff and CRM. This report was transcribed using voice recognition software. Every effort was made to ensure accuracy, however, inadvertently computerized client support manager mistakes may be present. Subjective No acute events overnight. Patient states she feels tired and exhausted and not well. She denies CP, pressure, palpitations, N/V, or paresthesia. 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 is a FULL CODE, he states [...] -Max trop 67 - likely type II SC 2/2 demand ischemia 2/2 hypoxia/sepsis 2/2 PNA [...] -> ferrous sulfate 325mg daily (was on // dosing), miralax daily, folic acid 1gdaily -No [...] deep vein thrombosis (DVT) prophylaxis (Z79.899: Other retirement (current) drug therapy) -Heparin sq with early [...] Dehydrogenase Post Void Residual Procalcitonin Referral to [facility] Reticulocyte Count TIBC Calculated TSH With T4fr Reflex Vitamin B12 Level -Plan discussed w/ patient, nursing staff and CRM. This report was transcribed using voice recognition software. Every effort was made to ensure accuracy, however, inadvertently computerized client support manager mistakes may be present. Subjective No acute events overnight. Patient states she feels tired and exhausted and not well. She denies CP, pressure, palpitations, N/V, or paresthesia. 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 is a FULL CODE, he states [...] -Max trop 67 - likely type II SC 2/2 demand ischemia 2/2 hypoxia/sepsis 2/2 PNA [...] -> ferrous sulfate 325mg daily (was on M/W/F dosing), miralax daily, folic acid 1gdaily -No [...] deep vein thrombosis (DVT) prophylaxis (Z79.899: Other retirement (current) drug therapy) -Heparin sq with early [...] Dehydrogenase Post Void Residual Procalcitonin Referral to [facility] Reticulocyte Count TIBC Calculated TSH With T4fr Reflex Vitamin B12 Level -Plan discussed w/ patient, nursing staff and CRM. This report was transcribed using voice recognition software. Every effort was made to ensure accuracy, however, inadvertently computerized client support manager mistakes may be present. Subjective No acute events overnight. Patient states she feels tired and exhausted and not well. She denies CP, pressure, palpitations, N/V, or paresthesia. 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 is a FULL CODE, he states [...] -Max trop 67 - likely type II SC 2/2 demand ischemia 2/2 hypoxia/sepsis 2/2 PNA [...] deep vein thrombosis (DVT) prophylaxis (Z79.899: Other retirement (current) drug therapy) -Heparin sq with early [...] Dehydrogenase Post Void Residual Procalcitonin Referral to [facility] Reticulocyte Count TIBC Calculated TSH With T4fr Reflex Vitamin B12 Level -Plan discussed w/ patient, nursing staff and CRM. This report was transcribed using voice recognition software. Every effort was made to ensure accuracy, however, inadvertently computerized client support manager mistakes may be present. Subjective No acute events overnight. Patient states she feels tired and exhausted and not well. She denies CP, pressure, palpitations, N/V, or paresthesia. 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, + SOB/WOB/NASCIMENTO - does not wear [...] 04/04/24 * 04/03/24 04/02/24 (more content not included)...[facility] CenterComment on above:Result Comment: Electronically Signed By: Akua NICHOLSON\.br\Date and Time Signed: 04/04/24 12:48 EDT\.br\Electronically Co-Signed By: Miguel Ramires DO.br\Date and Time Co-Signed: 04/04/24 13:25 [id number] NoteHistory and Physical Basic Information Admit Date/Time:04/04/2024 [...] Low (04/04/24 01:05:00) HGB: 11.8 gm/dL Low (04/04/24 01:05:00) Hct: 34.7 % (04/04/24 01:05:00) MCV: 91.1 fL (04/04/24 01:05:00) MCH: 30.9 pg (04/04/24 01:05:00) MCHC: 33.9 gm/dL (04/04/24 01:05:00) RDW: 14.9 % High (04/04/24 01:05:00) Platelet: 224 E9/L (04/04/24 01:05:00) MPV: 7 fL (04/04/24 01:05:00) Neutro Auto: 91.7 % High (04/04/24 01:05:00) Lymph Auto: 4.7 % Low (04/04/24:05:00) [place] Auto: 2.6 % Low (04/04/24:05:00) Eos Auto: 0.7 % (04/04/24:05:00) Basophil Auto: 0.3 % (04/04/24:05:00) Neutro Absolute: 7.5 E9/L (04/04/24:05:00) Lymph Absolute: 0.4 E9/L Low (04/04/24:05:00) [place] Absolute: 0.2 E9/L (04/04/24:05:00) Eos Absolute: 0.1 E9/L (04/04/24:05:00) Basophil Absolute: 0 E9/L (04/04/24 01:05:00) PT: 12.2 second(s) (04/04/24:05:00) INR: 1.09 (04/04/24:05:00) PTT: 36.3 second(s) (04/04/24:05:00) Glucose Lvl: 232 mg/dL High (04/04/24 01:05:00) BUN: 24 mg/dL High (04/04/24 01:05:00) Creatinine: 1.9 mg/dL High (04/04/24 01:05:00) eGFR: 26 mL/min/1.73 m2 Low (04/04/24 01:05:00) BUN/Creat Ratio: 13 (04/04/24 01:05:00) Sodium Lvl: 138 mmol/L (04/04/24 01:05:00) Potassium Lvl: 3.7 mmol/L (04/04/24 01:05:00) Chloride: 100 mmol/L Low (04/04/24 01:05:00) CO2: 28 mmol/L (04/04/24 01:05:00) AGAP: 14 mEq/L (04/04/24 01:05:00) Calcium Lvl: 9.3 mg/dL (04/04/24 01:05:00) Alk Phos: 98 Int._Unit/L (04/04/24 01:05:00) ALT: 9 Int._Unit/L (04/04/24:05:00) AST: 18 Int._Unit/L (04/04/24 01:05:00) Total Protein: 7.1 gm/dL (04/04/24 01:05:00) Albumin Lvl: 4 gm/dL (04/04/24:05:00) Globulin: 3.1 gm/dL (04/04/24:05:00) A/G Ratio: 1.3 (04/04/24:05:00) Bili Total: 0.7 [...] acid per protocol. Antibio (more content not included)...[facility] CenterComment on above:Result Comment: Electronically Signed By: Tika CHRISTENSEN DO\Date and Time Signed: 04/04/24 03:00 [id number] History of Present illness Narrative* Zach Bui MD - 11/22/2023 11:45 AM EDT Images from the original note were not included. [address] [place] [address] A [facility] [[email or web address]] B [facility] [id number] Patient: Nadia Patterson Date of : 1945 Encounter Date: 11/22/2023 History of Present Illness: Chief Complaint: Follow up The patient is a 78 y.o. female, an established patient, and is here for followup with her daughter. She has a history of mixed urinary incontinence but predominantly urge incontinence. She has had this for several years. She wears liners inside garments. She does also has some issues with her bowels having a bowel movement every 2-3 days. She does take a stool softener about 4 times per week. Byhistory however she still has some firm stool with this. Was given myrbetriq 50 mg. Had about 75% improvement. No longer leaking at night. Did recently see some blood on the tissue with wiping. Denies any gross hematuria. 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 Normal bladder and rectal support with no prolapse. Nontender normal urethra. Summary of old records: Urinalysis today: No results for input(s): EXTPOCURCO , EXTPOCURCH , EXTPOCAPP , EXTPOCURBS , EXTPOCURBIL , EXTPOCUKET , EXTPOCUSPG , EXTPOCUHGB , EXTPOCUPRO , EXTPOCUURO , EXTPOCULEU , EXTPOCUNIT , EXTPOCUWBC , EXTPOCUBLD , EXTPOCURBC , EXTPOCUCRY , EXTPOCUBAC , EXTPOCUTREP , EXTPOCUPH , EXTPOCUL EE in the last 72 hours. Last BUN and creatinine: No results found for: BUN No results found for: CREATININE Last PSA: No results found for: PSA No results found for: PROSTATICSP Additional Lab/Culture results: Imaging Reviewed during this Office Visit: None (Results were independently reviewed by physician and radiology report verified) Past Medical, Family, and Social History Update: The following portions of the patient's history were reviewed and updated as appropriate: allergies, current medications, past family history, past medical history, past social history, past surgicalhistory and problem list. Past Medical History: Diagnosis Date Diabetes mellitus ([facility]) Fibromyalgia H/O echocardiogram Heart attack ([facility]) High blood pressure High cholesterol Hx of cardiac catheterization Hypothyroid Joint pain Low back pain Neck pain Obesity Osteoarthritis Wears dentures Past Surgical History: Procedure Laterality Date FEMUR SURGERY INJECTION BLOCK SACROILIAC JOINT Bilateral 09/24/2022 Performed by Hector Boss MD at [facility] INJECTION BLOCK SACROILIAC JOINT Bilateral 04/09/2022 Performed by Hector Boss MD at [facility] INJECTION BLOCK SACROILIAC JOINT Bilateral 12/04/2021 Performed by Hector Boss MD at [facility] KNEE SURGERY WRIST SURGERY Family History Problem Relation Age of Onset Heart disease Mother Heart disease Father Current Outpatient Medications Medication Sig Dispense Refill acetaminophen (TYLENOL EXTRA STRENGTH) 500 mg tablet Take 2 tablets (1,000 mg total) by mouth. aspirin 81 mg Take 1 tablet (81 mg total) by mouth daily. atorvastatin (LIPITOR) 10 mg tablet Take 1 tablet (10 mg total) by mouth in the morning. carvedilol (COREG) 6.25 mg tablet Take 0.5 tablets (3.125 mg total) by mouth in the morning and 0.5tablets (3.125 mg total) before bedtime. cetirizine (ZyrTEC) 10 mg tablet Take 1 tablet (10 mg total) by mouth in the morning. cranberry-vitamin C-mannose 250-30-50 mg tablet,chewable Chew and swallow. docusate calcium (SURFAK) 240 mg capsule TAKE TWO CAPSULES BY MOUTH EVERY 2 DAYS NEEDED ferrous sulfate 325 (65 FE) mg tablet Take 1 tablet (325 mg total) by mouth. 3 times a week furosemide (LASIX) 20 mg tablet Take 2 tablets (40 mg total) by mouth daily. HYDROcodone-acetaminophen (NORCO) 5-325 mg per tablet Take 1 tablet by mouth in the morning. Max Daily Amount: 1 tablet. levothyroxine (SYNTHROID, LEVOTHROID) 50 MCG tablet Take 1 tablet (50 mcg total) by mouth in the morning. LYRICA 150 mg capsule Take 1 capsule (150 mg total) by mouth in the morning and 1 capsule (150 mg total) before bedtime. magnesium oxide 400 mg magnesium capsule magnesium 400 mg (as magnesium oxide) capsule 4 times a week metFORMIN (GLUCOPHAGE) 500 mg tablet Take 1 tablet (500 mg total) by mouth in the morning and 1 tablet (500 mg total) before bedtime. mirabegron (MYRBETRIQ) 50 mg tablet extended release 24 hr Take 1 tablet (50 mg total) by mouth in the morning. 30 tablet 5 nitroglycerin (NITROSTAT) 0.4 MG SL tablet nitroglycerin 0.[address] 1 tablet as needed by sublingual route as needed for 30 days. NYAMYC powder potassium chloride (K-DUR,KLOR-CON) 10 MEQ CR tablet Take 1 tablet (10 mEq total) by mouth in the morning and 1 tablet (10 mEq total) before bedtime. rOPINIRole (REQUIP) 4 mg tablet Take 0.5 tablets (2 mg total) by mouth in the morning. traZODone (DESYREL) 150 mg tablet daily. docusate sodium (COLACE) 100 mg capsule Take 2 capsules (200 mg total) by mouth. (Patient not taking: Reported on 11/22/2023) DULoxetine (CYMBALTA) 60 mg capsule Take 1 capsule (60 mg total) by mouth daily. (Patient not taking: Reported on 11/22/2023) 60 capsule 1 ergocalciferol (DRISDOL) 1,250 mcg (50,000 unit) capsule (Patient not taking: Reported on 11/22/2023) fluticasone propionate (FLONASE) 50 mcg/actuation nasal spray (Patient not taking: Reported on 11/22/2023) magnesium 30 mg tablet Take 400 mg by mouth in the morning. Four times a week . (Patient not taking: Reported on 11/22/2023) timolol (TIMOPTIC-XE) 0.5 % ophthalmic gel-forming INSTILL 1 DROP INTO EACH EYE ONCE A DAY (Patientnot taking: Reported on 11/22/2023) 12 traMADoL (ULTRAM) 50 mg tablet Take 1 tablet (50 mg total) by mouth 3 (three) times a day as needed. (Patient not taking: Reported on 11/22/2023) No current facility-administered medications for this visit. (All medications reviewed and updated by provider since last office visit or hospitalization) Allergies: Butorphanol and Butorphanol tartrate Tobacco History: Social History Tobacco Use Smoking Status Never Smokeless Tobacco Never (If patient a smoker, smoking cessation counseling offered) Social History: Social History Substance and Sexual Activity Alcohol Use Not Currently Review of Systems: General: Negative for chills and fever. Cardiovascular: Negative for chest pain and shortness of breath. Gastrointestinal: Positive for constipation -per HPI Physical Exam: BP 122/67 Pulse 80 Ht 149.9 cm (4' 11 ) Wt 82.6 kg (182 lb) BMI 36.76 kg/m Assessment and Plan: Nadia was seen today for follow-up. Diagnoses and all orders for this visit: Urge incontinence Problem List Genitourinary Urge incontinence - Primary Overview 03/22/23: Mixed urinary incontinence predominantly urge. Plan to add MiraLax to improve bowel function. Myrbetriq 50 mg. She will monitor blood pressure at home. Call for records to review urine cultures. Do not recommendd anticholinergics due to constipation and cognitive side effects 05/18/23: 75% improvement with Myrbetriq. Content with current state. 11/22/2023: Discussed options again. Currently doing reasonably well using Myrbetriq 50 mg. Do not want handed anticholinergics due to potential side effects with confusion. Did also talk about Botoxand neurostimulator but she was content using the medication only. Follow-up: Zach Bui MD This note was created with the assistance of a speech recognition program. While intending to generate a timely document that accurately reflects the content of the visit, no guarantee can be provided that every grammatical or spelling mistake has been or will be identified or corrected. Thank you for your understanding. [facility] Chief Complaint: Patient [...] block. Grade 1 diast (more content not included)...[facility]03-06-[address] [facility] Card[facility] Clinic Note Chief Complaint: Patient here for 1.5 year follow up CAD, HFpEF, and hypertension. She was [place] [facility] [place] few weeks ago [...] stress test 03/2018 Myocardial (more content not included)...[facility] 08-07-2023 NoteMicrobiology PROCEDURE: Blood Culture Charcoal [R1] SOURCE: Blood BODY SITE: Arm R COLLECTED DATE/TIME: 07/30/2023 22:00 EST RECEIVED DATE/TIME: 07/30/2023 22:16 EST START DATE/TIME: 07/30/2023 22:16 EST FREE TEXT SOURCE: rt forearm Frank MARTIN, Michele Marie DO, Michele Gould FINAL REPORTS Final Report [] Verified Date/Time: 08/07/2023 07:00 EST No growth at 7 days. Performing Locations R1: This test was performed at: [facility], [address] [place] [address], [id number], FucvtwDayton Va Medical CenterComment on above:Performed By: #### [id number] ####Alex [address] [id number] NoteMicrobiology PROCEDURE: Blood Culture Charcoal [R1] SOURCE: Blood BODY SITE: Hand L COLLECTED DATE/TIME: 07/30/2023 21:45 EST RECEIVED DATE/TIME: 07/30/2023 22:16 EST START DATE/TIME: 07/30/2023 22:16 EST FREE TEXT SOURCE: Michele Marie DO, DO, Michele Gould FINAL REPORTS Final Report [] Verified Date/Time: 08/07/2023 07:00 EST No growth at 7 days. Performing Locations R1: [facility] performed at: [facility], [address] [place] [address], [id number], IxrimwDayton Va Medical CenterComment on above:Performed By: #### [id number] ####Johnson [address] [id number] Evaluation + Plan noteExtracted from: Title:Discharge Note [...] 0.4 mg= 1 tab(s), SubLingual, q5min, PRN [place] 325 mg-5 mg oral tablet, 1 tab(s), [...] tab(s), Oral, q6hr With When Contact Information HARPAL HAYES MD, FAM Within 3 to [address] [place] [phone]- Additional Instructions: Call for followup appointment Community-Acquired Pneumonia, Adult, [id number] Extracted from: Title:APSO Note Author:Jesika WHITE student, [...] minute(s), 07/30/23 23:14:00 EST Add on Test [facility]02-27-2024 Hospital Discharge instructions Patient Education 08/02/2023 11:02:24 Antibiotic Medicine, Adult, Fqwr-[id number] Antibiotic Medicine, Adult Antibiotic medicines treat infections [...] medicine. Follow these instructions at home: Take pnnl-wml-ivkybfk and prescription medicines as told by your [...] provider. Document Revised: 03/04/2020 Document Reviewed: 03/11/2020 [employer] Patient Education 2022 [employer]. 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 Contact a doctor if: You have a [...] provider. Document Revised: 07/21/2022 Document Reviewed: 07/21/2022 [employer] Patient Education 2022 [employer]. Follow Up Care 07/30/2023 20:29:22 With:FREDDY BRIGGS, GRETEL ROWAN Address: [address] [place] [phone]- When:08/09/2023 10:30:00 [facility]02-27-2024 NoteAdmission and Discharge Information Admit Date/Time:07/31/2023 01:03 Admitting Physician - Christie Zayas MD Admitting Diagnoses: Discharge Order Date Discharge Patient - Ordered -- 08/02/23 10:17:00 [facility], [facility] Discharge Diagnoses 1. Generalized weakness, 07/30/2023 2. [...] 0.4 mg= 1 tab(s), SubLingual, q5min, PRN [place] 325 mg-5 mg oral tablet, 1 tab(s), [...] Extra Strength 500 mg (more content not included)...[facility] CenterComment on above:Result Comment: Electronically Signed By: Hector Meier DO\.br\Date and Time Signed: 08/02/23 10:18 [id number] NotePT Evaluation done this date. Pt. with on AM-PAC this . Supervision to CGA with all activities this date. 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2 E9/L (07/30/23:45:00) Lymph Absolute: 1.7 E9/L (07/30/23:45:00) [place] Absolute: 0.4 E9/L (07/30/23:45:00) Eos Absolute: 0.2 E9/L (07/30/23:45:00) Basophil Absolute: 0 E9/L (07/30/23:45:00) Glucose Lvl: 140 mg/dL (07/30/23:45:00) BUN: 20 mg/dL (07/30/23:45:00) Creatinine: 1.5 mg/dL High (07/30/23:45:00) eGFR: 35 mL/min/1.73 m2 Low (07/30/23:45:00) BUN/Creat Ratio: 13 (07/30/23:45:00) Sodium Lvl: 143 mmol/L (07/30/23:45:00) Potassium Lvl: 4 mmol/L (07/30/23:45:00) Chloride: 101 mmol/L (07/30/23:45:00) CO2: 31 mmol/L (07/30/23:45:00) AGAP: 15 mEq/L (07/30/23:45:00) Calcium Lvl: 10 mg/dL (07/30/23:45:00) Alk Phos: 83 Int._Unit/L (07/30/23:45:) ALT: 9 Int._Unit/L (07/30/23:45:) AST: 15 Int._Unit/L (07/30/23:45:) Total Protein: 7.1 gm/dL (07/30/23:45:) Albumin Lvl: 4.1 gm/dL (07/30/23:45:00) Globulin: 3 gm/dL (07/30/23:45:00) A/G Ratio: 1.4 (07/30/23:45:) Bili Total: 0.4 mg/dL (07/30/23:45:00) Bili Direct: 0.1 mg/dL (07/30/23:45:00) Bili Indirect: 0.3 mg/dL (07/30/23:45:00) Lactic Acid Lvl: 2.1 mmol/L (07/31/23 00:06:00) Troponin: 3.6 pg/mL Low (07/31/23 00:06:00) BNP: 114 pg/mL High (07/30/23:45:00) Glucose Cap: 127 mg/dL High (07/30/23:34:00) POC Device SN: [id number] (07/30/23 20:34:00) POC User ID: [id number] (07/30/23 20:34:00) POC Username: DREAD CHURCH (02/24/24 20:34:00) UA Spec Desc: Clean Catch (07/30/23 22:50:00) UA Color: Yellow2 (07/30/23 22:50:00) UA Clarity: Clear2 (07/30/23 22:50:00) UA Spec Grav: 1.015 (07/30/23 22:50:00) UA pH: 7.0 (07/30/23 22:50:00) (more content not included)...[facility] CenterComment on above:Result Comment: Electronically Signed By: Marquez BRIGGS, Christie\.br\Date and Time Signed: 07/31/23 03:31 [id number] Evaluation note* Encounter Date Diagnosis Assessment Notes [...] magnesium. Will increase oral magnesium once daily. [employer] Other 12-28-2023 Evaluation note* Encounter Date Diagnosis Assessment Notes Treatment Notes Treatment Clinical Notes May, Acute non-recurrent maxillary sinusitis (ICD-10 - J01.00) Take antibiotic as directed. If develop wheezing, chest tightness, itching, bad cough, blue skin color, seizures, swelling of face, lips, tongue, or throat report to ED. [employer] Other 10-02-2023 Evaluation note* Encounter Date Diagnosis Assessment Notes Treatment Notes Treatment Clinical Notes Mar, Lumbosacral spondylosis (ICD-10 - M47.817) [place] refilled. Requests to increase dose due to [...] symptoms. Any developing patterns. Stay well hydrated. [employer] Other 08-08-2023 Evaluation note* Encounter Date Diagnosis Assessment Notes Treatment Notes Treatment Clinical Notes Jan, Hypertensive chronic kidney disease with stage 1 through stage 4 chronic kidney disease, or unspecified chronic kidney disease (ICD-10 - I12.9) [employer] Other 07-17-2023 Evaluation note* Encounter Date Diagnosis [...] due to the multiple course of antibiotics [employer] Other 01-09-2023 Evaluation note* Encounter Date Diagnosis [...] has a low magnesium. Continue oral magnesium [employer] Other 12-22-2022 History general Narrative - Reported* Type Description Date Medical History DM Medical History Fibromyalgia Medical History Arthritis Medical History HIP PAIN BILATERAL Medical History NERVE 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 BI LATERAL Medical History UTI 05/27/22 [facility] Surgical History Procedure:Colostomy;Disease: no [...] NERVE BLOCK 04/09/2022 Hospitalization History see above [employer] Other 12-22-2022 History general Narrative - Reported* Type Description Date Medical History DM Medical History Fibromyalgia Medical History Arthritis Medical History HIP PAIN BILATERAL Medical History NERVE 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 BI LATERAL Medical History UTI 05/27/22 [facility] E R Medical History UTI 11/06/2022 GIVEN BACTRIM Medical History UTI 11/10/2022 [place]AK[place] [facility] Surgical History Procedure:Colostomy;Disease: no [...] History UTI 11/06/2022 Hospitalization History UTI AT [facility] AND THEN [facility] 11/12/2022 [employer] Other 12-22-2022 History general Narrative - Reported* Type Description Date Medical History DM Medical History Fibromyalgia Medical History Arthritis Medical History HIP PAIN BILATERAL Medical History NERVE 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 BI LATERAL Medical History UTI 05/27/22 [facility] E R Medical History UTI 11/06/2022 GIVEN BACTRIM Medical History UTI 11/10/2022 [place]AK[place] [facility] Surgical History Colostomy Surgical [...] History UTI 11/06/2022 Hospitalization History UTI [place] [facility] [place] THEN [facility] 11/12/2022 [employer] Other 09-15-2022 History of Present illness Narrative* [...] by: Madai Webb MD documented in this [id number] NotePROCEDURE: XR ANKLE RT MIN 3 VIEWS, [...] Electronically authenticated by: LINDA REED Date: 2021-11-16 16:37[facility]06-13-2022 NotePROCEDURE: XR ANKLE RT MIN 3 VIEWS, [...] Electronically authenticated by: LINDA REED Date: 2021-11-16 16:37[facility]01-13-2022 Evaluation note* Encounter Date Diagnosis Assessment Notes [...] within the goal. Continue [place] D 31362 units 3/week Jun, Gout (ICD-10 - M10.9) [...] UTI so I have prescribed oral antibiotic. [employer] Other Evaluation + Plan note No data available for this section [employer] [facility] Evaluation note* Diagnosis Fall, initial encounter- Primary documented in this encounter [facility] noteNo InformationNortGeising[facility] [email or web address] Other Evaluation noteNo assessment information available [facility] Work Phone: Evaluation note* Diagnosis Onset Date Resolution Status Cellulitis of leg without foot, left acute Fibromyalgia acute Insomnia acute Restless leg syndrome acute Anemia of renal disease acut e CKD (chronic kidney disease) stage 3, GFR 30-59 ml/min acute 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 Gout acute [id number] acute Hypomagnesemia acute Secondary hyperparathyroidism acute [facility] Work Phone: Evaluation note* Diagnosis Onset Date Resolution Status Anemia of renal disease acut e CKD (chronic kidney disease) stage 3, GFR 30-59 ml/min acute 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 Gout acute Hyperlipidemia acute [id number] acute Hypomagnesemia acute Secondary hyperparathyroidism acute [facility] Work Phone: Evaluation note* Diagnosis Onset Date Resolution Status Fibromyalgia acute Insomnia acute Restless leg syndrome acute [facility] Work Phone: Evaluation note* Diagnosis Urge incontinence- Primary documented in this encounter [facility] System[facility] general Narrative - Reported* Type Description Date [...] History perforated bowel Hospitalization History see above [place] [facility] Other Hospital Discharge instructions No data available for this section [employer] [facility] InstructionsNot on filedocumented in this encounter [facility] System[facility] note No data available for this section [employer] [facility] Summary Purpose Family History Relationship Condition [...] Diabetes mellitus with chronic kidney disease Gout [id number] Hypomagnesemia Secondary hyperparathyroidism Chief Complaint RENAL 6 month follow up 3 month f/u/med refills Reason for Visit Anemia of renal dise ase CKD (chronic kidney disease) stage 3, GFR 30-59 ml/min Diabetes mellitus with chronic kidney disease Gout Hyperlipidemia [id number] Hypomagnesemia Secondary hyperparathyroidism Chief Complaint 3 month f/u/med refi lls chest congestion Reason for Visit Fibromyalgia Insomnia Restless leg syndrome Additional Source Comments INFORMATION SOURCE (unrecogn ized section and content) DATE CREATED AUTHOR 11/29/2017 [facility] DATE CREATED AUTHOR AUTHOR'S ORGANIZ ATION 03/06/2022 [facility] DATE CREATED AUTHOR AUTHOR'S ORGANIZ ATION 06/08/2022 [facility] DATE CREATED AUTHOR AUTHOR'S ORGANIZ ATION 07/12/2023 [facility] EPIC DATE CREATED AUTHOR AUTHOR'S ORGANIZ ATION 11/24/2023 [facility] DATE CREATED AUTHOR AUTHOR'S ORGANIZ ATION 04/05/2024 [facility] DATE CREATED AUTHOR AUTHOR'S ORGANIZ ATION 04/06/2024 [facility] DATE CREATED AUTHOR AUTHOR'S ORGANIZ ATION 04/07/2024 [facility] DATE CREATED AUTHOR AUTHOR'S ORGANIZ ATION 04/08/2024 [facility] DATE CREATED AUTHOR AUTHOR'S ORGANIZ ATION 04/12/2024 [facility] DATE CREATED AUTHOR AUTHOR'S ORGANIZ ATION 04/13/2024 [facility] DATE CREATED AUTHOR AUTHOR'S ORGANIZ ATION 05/30/2024 [facility] REASON FOR VISIT (unrecogniz ed section and content) Reason Comments Fall Controlled mechanica l fall, lowered while onto bed. Reason Comments Follow-up 6m follow up Patient Care team informatio n (unrecognized section and content) Team Status: Active Member Role Status Dates Max L Ronal , DO Primary Care Provider Active Team Status: Active Member Role Status Dates Max Daniel Villeda , DO Primary Care Provider Active Start: January 16, 2024 Harpal Hayes MD Attending Provider Active St art: January 16, 2024 Team Status: Inactive Member Role Status Dates Max L Ronal , DO Primary Care Provider Active Start: March 19, 2024 End: March 19, 2024 Harpal Hayes MD Attending Provider Active St art: March 19, 2024 End: March 19, 2024 Team Status: Inactive Member Role Status Dates Max L Ronal , DO Primary Care Provider Active Start: April 02, 2024 End: April 02, 2024 Harpal Hayes MD Attending Provider Active St art: April 02, 2024 End: April 02, 2024 Team Status: Inactive Member Role Status Dates Max L Ronal , DO Primary Care Provider Active Start: December 12, 2023 End: December 12, 2023 Harpal Hayes MD Attending Provider Active St art: December 12, 2023 End: December 12, 2023 Team Status: Active Member Role Status Dates Max L Joyamilka , DO Primary Care Provider Active Start: December 13, 2023 Yaneth Solo MD Attending Provider Active Start : December 13, 2023 Team Status: Inactive Member Role Status Dates Max L Pavyamilka , DO Primary Care Provider Active Start: December 20, 2023 End: December 20, 2023 Yaneth Solo MD Attending Provider Active Start : December 20, 2023 End: December 20, 2023 Chess Instructor Relationship Specialty Start Date End Date Harpal Hayes MD [address] [place] [id number] PCP - General Family Medicine 07/21/22 Goals (unrecognized section and content) Goals may [...] BE BASED ON THE PRIMARY CLINICAL RECORDS. [facility] provides no warranty or guarantee of the accuracy or completeness of information in this document.
[2024-08-08 11:39] LABS: Hematocrit 36.4 % (36.0-48.0); Hemoglobin 11.7 g/dL (12.0-16.0); Mean Corpuscular HGB Conc 32.1 g/dL (29.9-35.2); Mean Corpuscular Hemoglobin 29.5 pg (26.7-34.0); Mean Corpuscular Volume 91.7 fL (81.0-99.0); Mean Platelet Volume 9.3 fL (9.5-13.5); Platelet Count 243 10^3/uL (150-450); Red Blood Count 3.97 10^6/uL (4.20-5.40); Red Cell Distribution Width 14.2 % (11.0-15.0); White Blood Count 9.2 10^3/uL (4.0-11.0)
[2024-08-08 11:54] LABS: Bilirubin Urine NEGATIVE (NEGATIVE); Blood Urine NEGATIVE (NEGATIVE); Clarity Urine CLEAR (CLEAR); Color Urine LT. YELLOW (YELLOW); Glucose Urine UA NEGATIVE (NEGATIVE); Ketones Urine NEGATIVE (NEGATIVE); Leukocyte Esterase Urine SMALL (NEGATIVE); Nitrite Urine NEGATIVE (NEGATIVE); Protein Urine NEGATIVE (NEG/TRACE); Urobilinogen Urine 0.2 EU/dL (0.2-1.0)
[2024-08-08 12:18] LABS: Bacteria Urine SMALL #/HPF (NONE SEEN); Cast Seen? NONE SEEN #/LPF (NONE SEEN); Crystals Seen? None Seen #/HPF (None Seen); Mucus Urine TRACE (NONE SEEN); RBC Urine 0-2 #/HPF (0-2); Squamous Epithelial Cell Urine FEW #/LPF (NONE/RARE); Transitional Epi Cells Urine RARE #/LPF (NONE SEEN)
[2024-08-08 12:31] LABS: Albumin Level 3.3 g/dL (3.4-5.0); Anion Gap 12.3; BUN Creatinine Ratio 11.9; Calcium 9.7 mg/dL (8.5-10.1); Carbon Dioxide 32.7 mmol/L (21.0-32.0); Chloride 101 mmol/L (98-107); Estimated GFR (African America 36 (>=60 mL/min/1.73m^2); Estimated GFR (Non-African Ame 29 (>=60 mL/min/1.73m^2); Glucose 106 mg/dL (74-106); Magnesium 1.7 mg/dL (1.8-2.4); Sodium 142 mmol/L (136-145)
[2024-08-08 12:51] LABS: Phosphorus 2.7 mg/dL (2.6-4.7)
[2024-08-08 12:52] LABS: Percent Iron Saturation 10.3 %
[2024-08-09 11:08] LABS: PTH, Intact 29 pg/mL (15-65)
== END 2024-08-08 11:01 | disposition home or self-care (01) ==
LOC: LAB 11:00
PROVIDERS: PCP Family Medicine; Visit Provider Internal Medicine
DX: E83.42 Hypomagnesemia (principal); N18.9 Chronic kidney disease, unspecified; D63.1 Anemia in chronic kidney disease; M10.9 Gout, unspecified; I12.9 Hypertensive chronic kidney disease with stage 1 through stage 4 chronic kidney disease, or unspecified chronic kidney disease; N25.81 Secondary hyperparathyroidism of renal origin
CPT/HCPCS: 36415; 80069; 81001; 82306; 82570; 82728; 83540; 83550; 83735; 83970; 84156; 84550; 85027

== ENCOUNTER 2025-02-11 10:19 | Outpatient (OUT) | payer MEDICARE, SELFPAY ==
--- OUTSIDE RECORDS SUMMARY | 2021-04-28 11:40 | XMS_ITS | Continuity of Care Document ---
Author Organization [facility] Address [address] [place] [address] Phone Care Team Providers Care Medical Insurance Verifier Name Role Phone Art Villeda DO Unavailable Unavailable Allergies, Adverse Reactions, Alerts Substance Reaction Status Criticality BUTORPHANOL TARTRATE Active No Info rmation Medications Medication Instructions Dosage Effective Dates (start - stop) Status Comments nystatin 100,000 unit/gram topical powder apply by topical route 2 times every day to the affected area(s) 0.00 - Active magnesium gluconate 27 mg magnesium (500 mg) tablet take 1 tablet by oral route every day 1 tablet - Active Lyrica 150 mg capsule take 1 capsule by oral route 2 times every day 150 MG - Active G62.9 tramadol 50 mg tablet take 2 tablet by oral route every 4 hours as needed 100 MG - Active G62.9 atorvastatin 10 mg tablet take 1 tablet by oral route every day 10 MG - Active carvedilol 6.25 mg tablet take 1 tablet by oral route 2 times every day with food 6.25 MG - Active docusate calcium 240 mg capsule take 2 capsule by oral route every 2 days as needed 480 MG - Active furosemide 20 mg tablet take 1 tablet by oral route 2 times every day 20 MG - Active iron 325 mg (65 mg iron) tablet take 1 tablet by oral route every 2 days 325 MG - Active levothyroxine 50 mcg tablet take 1 tablet by oral route every day 50 MCG - Active magnesium 30 mg tablet take 1 by oral route 4 times a week - Active metformin 500 mg tablet take 1 tablet by oral route 2 times every day with morning and evening meals 500 MG - Active potassium chloride ER 10 mEq tablet,extended release(part/cryst ) TAKE ONE TABLET BY MOUTH TWICE A DAY WITH FOOD - Active Pt wants white oblong tablet ropinirole 4 mg tablet take 1 tablet by oral route every day 1-3 hours before bedtime 4 MG - Active trazodone 150 mg tablet take 1 tablet by oral route every day 150 MG - Active [employer] Ultra Blue Test Strip insert 1 unit by percutaneous route once a day - Active may substitute Pt formulary [employer] Delica Lancets 33 gauge use to test blood sugar once daily - Active may substitute Pt [facility] blood pressure monitor kit check blood pressure daily - Active [employer] Ultra2 Meter apply 1 cartridge by transdermal route 2 times every day 1 cartridge - Active may substitute Pt formulary Zyrtec 10 mg tablet take 1 tablet by oral route every day 10 MG - Active Vitamin D3 125 mcg (5,000 unit) tablet take 2 by oral route three times a week - Active Aspir-81 mg tablet,delayed release take 1 tablet by oral route every day - Active nystatin 100,000 unit/gram topical powder apply by topical route 2 times every day to the affected area(s) 0.00 - No Longer Active Procedures Procedure Date OFFICE/OUTPATIENT VISIT, EST GLYCOSYLATED HEMOGLOBIN TEST OFFICE/OUTPATIENT VISIT, EST OFFICE/OUTPATIENT VISIT, EST OFFICE/OUTPATIENT VISIT, EST OFFICE/OUTPATIENT VISIT, EST INFLUENZA ASSAY W/OPTIC OFFICE/OUTPATIENT VISIT, EST OFFICE/OUTPATIENT VISIT, EST Advance Directives Directive Yes / No Effective Date File Name No Information Encounters Encounter Description Practice Location Reason(s) For Visit Diagnoses Date Provider Providers Copied on Encounter [facility], [address] [place] [address], [id number] , [place] tel: [phone] [facility] No Information 1 [facility]. [address] [place] [address], [id number] , [place]. tel: [phone] [facility], [address] [place] [address], [id number] , [place] tel: [phone] [facility] No Information 1 [facility]. [address] [place] [address], [id number] , [place]. tel: [phone] OFFICE/OUTPA TIENT VISIT, [facility], [address] [place] [address], [id number] , [place] tel: [phone] [facility] med refills (chief complaint) Body mass index [BMI] 38.0-38.9, adultEssential (primary) hypertensionHypothyro idism (acquired) 1 [facility]. [address] [place] [address], [id number] , [place]. tel: [phone] OFFICE/OUTPA TIENT VISIT, [facility], [address] [place] [address], [id number] , [place] tel: [phone] [facility] Med Refills (chief complaint) depression (chief complaint) Body mass index [BMI] 38.0-38.9, adultType 2 diabetes mellitus with diabetic neuropathy, without long-term current use of insulinUTI (urinary tract infection), bacterialBacterial infection, unspecifiedAnxiety disorder, unspecifiedNeuropathy Osteoarth NOS-unspec [address] [facility]. [address] [place] [address], [id number] , [place]. tel: [phone] OFFICE/OUTPA TIENT VISIT, [facility], [address] [place] [address], [id number] , [place] tel: [phone] [facility] diabetes (chief complaint) back pain (chief complaint) Type 2 diabetes mellitus with diabetic neuropathy, without long-term current use of insulinNeuropathyLow back pain at multiple sites 1 [facility] [address], [place], [id number] , [place]. tel: [phone] [facility], [address], [place], [id number] , [place] tel: [phone] [facility] NeuropathyOsteoarth NOS-unspec 0 [facility] [address], [place], [id number] , [place]. tel: [phone] OFFICE/OUTPA TIENT VISIT, [facility], [address], [place], [id number] , [place] tel: [phone] [facility] f/u (chief complaint) Abdominal pain (chief complaint) Abdominal pain in female 0 [facility] [address], [place], [id number] , [place]. tel: [phone] OFFICE/OUTPA TIENT VISIT, [facility], [address], [place], [id number] , [place] tel: [phone] [facility] Med Refills (chief complaint) Anemia (chief complaint) Body mass index (BMI) 38.0-38.9, adultIron deficiency anemia, unspecified iron deficiency anemia typeNasal congestionCongestive heart failure, unspecified 0 [facility] [address], [place], [id number] , [place]. tel: [phone] [facility], [address], [place], [id number] , [place] tel: [phone] [facility] No Information 0 [facility] [address], [place], [id number] , [place]. tel: [phone] OFFICE/OUTPA TIENT VISIT, [facility], [address], [place], [id number] , [place] tel: [phone] [facility] sick visit (chief complaint) Cough (chief complaint) BronchitisBody mass index (BMI) 40.0-44.9, adult Mar- 0 [facility] [address], [place], [id number] , [place]. tel: [phone] OFFICE/OUTPA TIENT VISIT, EST [facility], [address], [place], [id number] , [place] tel: [phone] [facility] est. care (chief complaint) back pain (chief complaint) depression (chief complaint) NeuropathyBody mass index (BMI) 40.0-44.9, adultOsteoarth NOS-unspecType 2 diabetes mellitus with diabetic neuropathy, without long-term current use of insulinEssential (primary) hypertensionHyperlipe jonathon, mixedRestless leg syndromeHypothyroidis m (acquired)Congestive heart failure, unspecifiedRecurrent mild major depressive disorder with anxietyAnxiety disorder, unspecified 0 [facility] [address], [place], [id number] , [place]. tel: [phone] Family History Family Member Type Diagnosis Age At Onset No Information Payers Payer name Insurance type Covered alliance party ID Authoriza tion(s) Medicare PPS [id number] Social History Type Description Quantity Date Captured Comments Alcohol Use Details Unknown Caffeine Use Details Unknown Tobacco Use Status No Information Smoking Status No Information Sex Female Sexual Orientation Straight or heterosexual Gender Identity Female Chief Complaint And Reason For Visit No Information Reason For Referral Reason For Referral No Information Plan Of Treatment Date Type Action Status Goal Foot exam. Due on due Goal Urine microalbumin. Due on N due Goal Dental exam. Due on 021 due Goal Pneumococcal vaccine. Due on due Goal Lipid panel. Due on due Goal ECG. Due on due Goal Urinalysis. Due on due Goal Hemoglobin A1C. Due on due Goal Dilated eye exam. Due on Apr due Goal Lipid panel. Due on due Goal Pneumococcal vaccine. Due on due Goal Foot exam. Due on due Goal Dental exam. Due on due Goal Dilated eye exam. Due on Apr due Goal Urine microalbumin. Due on due Goal Hemoglobin A1C. Due on due Goal Urinalysis. Due on due Goal ECG. Due on due Goal Urinalysis. Due on due Goal ECG. Due on due Goal Hemoglobin A1C. Due on due Goal Pneumococcal vaccine. Due on due Goal Lipid panel. Due on due Goal Urine microalbumin. Due on due Goal Dental exam. Due on due Goal Dilated eye exam. Due on Apr due Goal Foot exam. Due on due Goal Urine microalbumin. Due on due Goal Foot exam. Due on due Goal ECG. Due on due Goal Urinalysis. Due on due Goal Dental exam. Due on due Goal Pneumococcal vaccine. Due on due Goal Hemoglobin A1C. Due on due Goal Dilated eye exam. Due on Dec due Goal Lipid panel. Due on due Goal Dietary management education , guidance, and counseling completed Goal Dilated eye exam. Due on Jul due Goal Dental exam. Due on due Goal Hemoglobin A1C. Due on due Goal Lipid panel. Due on due Goal Urine microalbumin. Due on due Goal Pneumococcal vaccine. Due on due Goal Foot exam. Due on due Goal Urinalysis. Due on due Goal ECG. Due on due Goal Dilated eye exam. Due on Apr due Goal Urine microalbumin. Due on due Goal Urinalysis. Due on due Goal ECG. Due on due Goal Pneumococcal vaccine. Due on due Goal Lipid panel. Due on due Goal Dental exam. Due on due Goal Foot exam. Due on 0 due Goal Hemoglobin A1C. Due on due Goal Pneumococcal vaccine. Due on due Goal Lipid panel. Due on due Goal Dental exam. Due on due Goal Urine microalbumin. Due on due Goal Dilated eye exam. Due on Jul due Goal Hemoglobin A1C. Due on due Goal Foot exam. Due on 0 due Goal Diabetes screening. Due on due Goal Urinalysis. Due on due Goal ECG. Due on due Goal Dilated eye exam. Due on Feb due Goal Foot exam. Due on 0 due Goal Lipid panel. Due on due Goal Pneumococcal vaccine. Due on due Goal Urine microalbumin. Due on due Goal ECG. Due on due Goal Urinalysis. Due on due Goal Dental exam. Due on due Goal Hemoglobin A1C. Due on due Goal Urine microalbumin. Due on due Goal Lipid panel. Due on due Goal Dilated eye exam. Due on Dec due Goal Pneumococcal vaccine. Due on due Goal Dental exam. Due on due Goal Hemoglobin A1C. Due on due Goal Foot exam. Due on 0 due Goal ECG. Due on due Goal Urinalysis. Due on due Goal Dietary management education , guidance, and counseling completed Goal Dietary management education , guidance, and counseling completed Goal Dietary management education , guidance, and counseling completed Referral Ordered: Pain Medicine (related to Neuropathy) ordered Referral Ordered: Referrals: Pain Medicine ordered Referral Ordered: Referrals: Gastroenterology ordered History Of Present Illness Encounter Date Complaint History Of Prese nt Illness med refills Pt. here today f or med refills. No problems voiced otherwise. Hoping to get 3 month supplies on refills.Brea Philippe RN.Pt does state that her hip pain is bothering her again and she is having more trouble walking Med Refills Pt here today wi th daughter for medication refills. Daughter states Dr. Marshall ordered a bunch of labs on patient that [facility] was going to send here. No other issues or concernsTGrodi CATEGORY DEVELOPMENT MANAGER depression This is a follow up visit. There is worsening of previously reported symptoms. The patient reports functioning as very difficult. The patient presents with anxious/fearful thoughts, compulsive thoughts, depressed mood, difficulty concentrating, diminished interest or pleasure, easily startled, excessive worry, fatigue, feelings of guilt and restlessness but denies decreased need for sleep. The depression is aggravated by social interactions and son hospitalized. Interventions the patient has tried have not provided any relief. The depression is associated with chronic pain, trembling and urinary frequency. The patient denies any headache, sweating, vomiting and weight gain. diabetes The problem is s table. Risk factors include: over age [age] years old. Patient is compliant with using medication, follow-up, and using education materials. Managing with: Oral medications., Avg 110. Associated symptoms include: burning of extremities. Pertinent negatives include blurred vision, chest pain, constant hunger, frequent infections, urinary frequency, hypoglycemic episodes and polydipsia. back pain Location of pain is lower back. Pain is radiated to the right thigh. The patient describes the pain as deep. Context: no injury. Symptoms are aggravated by daily activities. Symptoms are relieved by pain meds/drugs. Additional information: Pt did not like what pain management in [place] told her, she does not want injections like they recommend she states she did that in the past and would like a second option. Abdominal pain The problem is s evere. The problem has worsened. The symptoms are recurring. The location is left lower quadrant. The patient reports radiation to the back. The quality of the pain is stabbing. These symptoms occur after bowel movement. Aggravating factors include constipation. Symptoms are not relieved by antacids, bowel movement, flatus, H2 blockers, OTC meds or proton pump inhibitors. Associated symptoms include back pain, bloating, flank pain, lightheadedness, myalgia and nausea. Pertinent negatives include blood in stool, change in appetite, diarrhea, dizziness, dyspnea, heartburn and hematuria. Additional information: Pt also had a colonoguard that was positive for possible CA. f/u Pt here today to discuss cologuard results. Pt states she is sick at my stomach today and has taken Tums but they are not helping. Needs refill on Metformin, Atorvastatin, Requip, Furosemide, Levothyroxine, Carvedilol, Vitamin D, Stool Softener, Ferrous Sulfate, and Potassium. Pt's daughter requesting script for Cetirizine. Pt takes it daily OTC and would like to see if insurance will cover it. DAYSI Mayorga Anemia The symptom(s) b larisa gradual. Type of anemia was acquired for anemia with chronic illness and deficiency anemia (iron deficient). The problem is getting worse. Relevant medical history includes chronic renal failure. The patient has been managed with dietary modification. Associated symptoms include cold intolerance, constipation, fatigue, gait disturbance, joint pain and weakness. Pertinent negatives include abdominal pain, amenorrhea, anorexia, black tarry stools, bleeding gums, bone pain, brittle nails, chest pain, chills, diarrhea, dizziness, dyspnea, headache, hypotension, jaundice, nausea, numbness, tachycardia, tingling and vomiting. Med Refills Pt here today wi th daughter for medication refills and review labs. There are a couple things daughter wants to discuss with provider. No other issues or concernsTGrodi CATEGORY DEVELOPMENT MANAGER sick visit Pt here for sick visit. Pt c/o of feeling very weak, decreased appetite, stuffy nose with post nasal drip and productive cough of white phlegm ,c/o L ear pain, pt denies fever or chills. Pt states that she started feeling sick about 1 week ago, taking Tylenol at home. Pt denies any other issues or concerns. Kassidy TAVAREZ Cough Onset: sudden. T he patient describes the cough as dry and non-productive. It occurs persistently. The problem has become gradually worse. Context: behavioral. Symptoms are aggravated by lying down. There are no relieving factors. Associated symptoms include chills, cough, dyspnea, dyspnea on exertion, fatigue, fever, hoarseness, nasal congestion, night sweats, post-nasal drainage and sore throat. Pertinent negatives include epistaxis, heartburn, hemoptysis, pleuritic pain, weight loss and wheezing. back pain The problem is w orsening. It occurs persistently. Location of pain is lower back. Pain is radiated to the back.The patient describes the pain as diffuse, discomforting and numbness. Symptoms are aggravated by daily activities. Symptoms are relieved by pain meds/drugs. Additional information: Pt seeing Pain managment but not wanting to try injections and we discussed this. depression This is an initi al visit. The patient reports functioning as somewhat difficult. The patient presents with anxious/fearful thoughts, easily startled and excessive worry but denies hallucinations, poor judgment, restlessness or thoughts of or suicide. The patient's risk factors include chronic illness, financial worries and unemployment. The depression is associated with chronic pain. The patient denies any headache, irritability, nausea, sweating, trembling, urinary frequency, vomiting and weight gain. Additional information: Pt still having lots of problems with her depression and anxiety but more concerned with her pain. est. care Pt here to [facility] with new pcp and medication refills. Pt c/o pain all over, states that she was a previous pt of Dr. Villeda. Pt requesting refills on Potassium and Lyrica today. Kassidy TAVAREZ Functional Status Date Functional Assessmen t No Information Instructions Date Instruction Additional Infor mation Dietary needs education Related to Body mass index [BMI] 38.0-38.9, adult Giving encouragement to exercise Related to Body mass index [BMI] 38.0-38.9, adult Dietary management e ducation, guidance, and counseling Related to Body mass index [BMI] 38.0-38.9, adult Giving encouragement to exercise Related to Body mass index [BMI] 38.0-38.9, adult Dietary management e ducation, guidance, and counseling Related to Body mass index (BMI) 38.0-38.9, adult Giving encouragement to exercise Related to Body mass index (BMI) 38.0-38.9, adult Dietary management e ducation, guidance, and counseling Related to Body mass index (BMI) 40.0-44.9, adult Giving encouragement to exercise Related to Body mass index (BMI) 40.0-44.9, adult Dietary management e ducation, guidance, and counseling Related to Body mass index (BMI) 40.0-44.9, adult Giving encouragement to exercise Related to Body mass index (BMI) 40.0-44.9, adult Assessments Type Assessment Date No Information Goals Health Concern Goal Type Priority Status Date Diabetes Self Management: Patient needs assistance to manage diabetes. Continued improvement of a1c with continued medication regimen. Patient Goal New Patient Care Teams Name Effective Dates (start - stop) Status Members No Information
--- OUTSIDE RECORDS SUMMARY | 2025-02-11 10:22 | XMS_ITS | Encounter Summary ---
Author Organization [facility] [employer] [facility] tem Address [id number] [address] [place] [address] Care Team Providers Care Tool Pusher Name Role Phone Rosmery Singer MD Primary Care Provider [phone] Encounter Details Date Type Department Care Team (Late st Contact Info) Description 09/22/2021 Orders Only [facility] [address] [place] [id number] Thomas Arzola Jr., DO [address] [place] [address] Social History Tobacco Use Types Packs/Day Years Used Date Smoking Tobacco: Never Smokeless Tobacco: Never Alcohol Use Standard Drinks/Week Comments Not Currently 0 (1 standard drink = 0.6 oz pur e alcohol) Childcare Answer Date Recorded Childcare Unknown 11/15/2018 Employment Answer Date Recorded Employment Unknown 11/15/2018 Purpose - Life Answer Date Recorded Purpose and direction in life Unknown Comments No Sex and Gender Information Value Date Recorded Sex Assigned at Not on file Legal Sex Female 12:04 PM EDT Gender Identity Not on file Sexual Orientation Not on file COVID-19 Exposure Response Date Recorded In the last 10 days, have yo u been in contact with someone who was confirmed or suspected to have Coronavirus/COVID-19? No / Unsure 09/22/2021 11:56 AM EDT documented as of this encounter Plan of Treatment Not on file documented as of this encounter Procedures Procedure Name Priority Date/Time Associated Diagnosis Comments XR HIP RT 1 VIEW W OR WO PELVIS Routine 09/22/2021 documented in this encounter Results * X-ray hip right 1 view with or without pelvis (09/22/2021) Anatomical Region Laterality Modality Lower Extremities, MSK, Hip Right Comp uted Radiography us Thomas Arzola Jr., DO IMG DIAGNOSTIC IMAGING ORDERABLES Final Result documented in this encounter Visit Diagnoses Not on filedocumented in this encounter Care Teams Tool Pusher Relationship Specialty Start Date End Date Rosmery Singer MD [address] [id number] PCP - General Family Medicine 07/21/22 documented as of this encounter
--- OUTSIDE RECORDS SUMMARY | 2025-02-11 10:22 | XMS_ITS | Encounter Summary ---
Author Organization [facility] Address [address] [place] [address] Phone Care Team Providers Care Dray Truck Driver Name Role Phone Unavailable Primary Care Provider Unavailabl e Encounter Details Date Type Department Care Team (Late st Contact Info) Description 04/04/2024 Scanned Document [facility] [address] [place] [phone] Scanning, Generic Provider Social History Tobacco Use Types Packs/Day Years Used Date Smoking Tobacco: Never Assessed Comments Unknown Sex and Gender Information Value Date Recorded Sex Assigned at Not on file Legal Sex Female 12:19 PM EST Gender Identity Not on file Sexual Orientation Not on file documented as of this encounter Plan of Treatment Not on file documented as of this encounter Visit Diagnoses Not on filedocumented in this encounter
--- OUTSIDE RECORDS SUMMARY | 2025-02-11 10:22 | XMS_ITS | Clinical Summary ---
Author Organization [facility] Address [address] [place] [address] Care Team Providers Care Block Cableman Name Role Phone Rosmery Singer MD Primary Care Provider [phone] Allergies Active Allergy Reactions Criticality Noted Date Comments Butorphanol Anxiety,Unknown Low 05/24/2014 Statol Other reaction(s): ANXIOUS Medications traZODone (Desyrel) 150 MG tablet Take 150 mg by mouth at bedtime Active metFORMIN, OSM, (Fortamet) 500 MG 24 hr tablet Take 500 mg by mouth in the evening. Take with meals Do not crush, chew, or split. Active potassium chloride CR (Klor-Con M10) 10 MEQ ER tablet Take 10 mEq by mouth in the morning. Do not crush or chew.. Active rOPINIRole XL (Requip XL) 4 MG 24 hr tablet Take 4 mg by mouth at bedtime Active atorvastatin (Lipitor) 10 MG tablet Take 10 mg by mouth in the morning. Active pregabalin (Lyrica) 150 MG capsule Take 150 mg by mouth in the morning and 150 mg before bedtime. Active furosemide (Lasix) 40 MG tablet Take by mouth Active levothyroxine (Synthroid, Levoxyl) 50 MCG tablet Take by mouth Daily before meals Active carvedilol (Coreg) 6.25 MG tablet Take by mouth 2 (two) times a day with meals Active cetirizine (ZyrTEC) 10 MG tablet Take by mouth Active VITAMIN D, ERGOCALCIFEROL, PO Take by mouth Active magnesium oxide (Mag-Ox) 400 mg tablet 400 mg in the morning. Active ferrous sulfate 325 (65 Fe) MG tablet Take 325 mg by mouth in the morning. Take with meals. Active docusate calcium (Stool Softener) 240 MG capsule Take 240 mg by mouth in the morning. Active aspirin 81 MG EC tablet Take 81 mg by mouth in the morning. Active HYDROcodone-korina taminophen (Hycet) 7.5-325 MG/15ML solution Take by mouth every 6 (six) hours if needed for severe pain Active Family History Medical History Relation Name Comments Diabetes Father Heart disease Father Hypertension Father Diabetes Mother Glaucoma Mother Heart disease Mother Hypertension Mother Relation Name Status Comments Father Mother Social History Tobacco Use Types Packs/Day Years Used Date Smoking Tobacco: Never Tobacco Cessation:Counseling Given: Not Answered Alcohol Use Standard Drinks/Week Comments Never 0 (1 standard drink = 0.6 oz pur e alcohol) Caffeine : coffee Comments Unknown Sex and Gender Information Value Date Recorded Sex Assigned at Not on file Legal Sex Female 7:03 PM EDT Gender Identity Not on file Sexual Orientation Not on file Last Filed Vital Signs Vital Sign Reading Time Taken Comments Blood Pressure 138/78 09/29/2020 12:00 PM EDT Pulse - - Temperature - - Respiratory Rate - - Oxygen Saturation - - Inhaled Oxygen Concentration - - Weight 83.9 kg (185 lb) 07/11/2023 3:15 PM EST Height 152.4 cm (5') 07/11/2023 3:15 PM EST Body Mass Index 36.13 07/11/2023 3:15 PM EST Plan of Treatment Not on file Insurance MEDICARE Care Teams Block Cableman Relationship Specialty Start Date End Date Rosmery Singer MD PCP - General Family Medicine 01/25/23
--- OUTSIDE RECORDS SUMMARY | 2025-02-11 10:22 | XMS_ITS | Clinical Summary ---
Author Organization [facility] Address [address] [place] [address] Care Team Providers Care Crown Ironer Operator Name Role Phone Rosmery Singer MD Primary Care Provider Allergies Active Allergy Reactions Criticality Noted Date Comments Butorphanol Other 05/24/2014 Medications aspirin 81 mg EC tablet Take 1 tablet every day by oral route. Active atorvastatin (Lipitor) 10 mg tablet TAKE 1 TABLET BY ORAL ROUTE EVERY DAY Active cetirizine (ZyrTEC) 10 mg capsule Take 1 capsule every day by oral route. Active ferrous sulfate 325 (65 Fe) MG tablet TAKE 1 TABLET BY ORAL ROUTE EVERY 2 DAYS Active furosemide (Lasix) 20 mg tablet 40 mg in the morning. Active levothyroxine (Synthroid, Levoxyl) 50 mcg tablet TAKE 1 TABLET BY ORAL ROUTE EVERY DAY Active magnesium oxide 400 mg magnesium capsule once daily as directed. Active metFORMIN (Glucophage) 500 mg tablet TAKE 1 TABLET BY ORAL ROUTE 2 TIMES EVERY DAY WITH MORNING AND EVENING MEALS Active potassium chloride CR (Klor-Con) 10 mEq ER tablet Take 1 tablet by mouth with breakfast and with evening meal. Active pregabalin (Lyrica) 150 mg capsule Take 100 mg by mouth two times daily. Active rOPINIRole (Requip) 4 mg tablet Take 2 mg by mouth at bedtime. Active traZODone (Desyrel) 150 mg tablet TAKE 1 TABLET BY ORAL ROUTE EVERY DAY Active ergocalciferol, vitamin D2, (VITAMIN D2 ORAL) Take 1,500 Int'l Units by mouth. Active pantoprazole (ProtoNix) 40 mg EC tabletIndication s:Chest pain, unspecified type Take 1 tablet (40 mg) by mouth before breakfast. Do not crush, chew, or split. 90 tablet 3 2 Active Additional Information Patient not taking.Reason: Other, Reported on 11/20/2024 Myrbetriq 50 mg tablet extended release 24 hr Take 1 tablet by mouth in the morning. 4 Active nitroglycerin (Nitrostat) 0.4 mg SL tabletIndication s:Chest pain, unspecified type PLACE 1 TABLET UNDER TONGUE FOR CHEST PAIN,MAY REPEAT EVERY 5 MINUTES FOR UP TO A MAX OF 3 TABLETS 25 tablet 3 5 Active carvedilol (Coreg) 3.125 mg tabletIndication s:Essential hypertension Take 1 tablet (3.125 mg) by mouth with breakfast and with evening meal. 180 tablet 3 5 11/01/19 26 Active Additional Information Patient taking differently:3.125 mg oralDaily, In pm, Reported on 11/20/2024 HYDROcodone-acet aminophen ([place]) 5-325 mg tablet Take 1 tablet by mouth. 5 Active Active Problems Problem Noted Date Diagnosed Date Degenerative disc disease, cervical 11/07/2023 Sacroiliitis 11/07/2023 Secondary hyperparathyroidism 11/07/2023 Cerebrovascular small vessel disease 08/10/2023 08/10/2023 Dementia 08/10/2023 08/10/2023 Diabetes mellitus with polyneuropathy 08/10/2023 08/10/2023 Hyperlipemia, mixed 08/10/2023 08/10/2023 Osteoarthritis 08/10/2023 08/10/2023 Recurrent falls 08/10/2023 08/10/2023 UTI (urinary tract infection) 08/10/2023 Vitamin D deficiency 08/10/2023 08/10/2023 Urge incontinence 03/22/2023 08/10/2023 Overview (08/10/2023): 03/22/23: Mixed urinary incontinence predominantly urge. Plan to add MiraLax to improve bowel function. Myrbetriq 50 mg. She will monitor blood pressure at home. Call for records to review urine cultures. Do not recommendd anticholinergics due to constipation and cognitive side effects 05/18/23: 75% improvement with Myrbetriq. Content with current state. Last Assessment & Plan: We will check and see if the medication is covered through her insurance. If not, we could consider Gemtesa or we could try for a tier exception. She never took the MiraLax but is willing to try it now. She follows with Nephrology for CKD. If her GFR dips below 30, we will need to decrease the dose of Myrbetriq to 25 mg. Post-traumatic osteoarthritis of left wrist 01/0408/10/2023 Left wrist pain 01/11/2023 08/10/2023 Vancomycin resistant enterococcus culture positi ve 12/16/2022 Overview (11/07/2023): VRE urine Enterococcus faecalis Right shoulder pain 07/21/2022 08/10/2023 Congestive heart failure 01/21/2022 Edema 01/21/2022 Disorder of sacrum 11/04/2021 08/10/2023 Lumbar spondylosis 11/04/2021 08/10/2023 Opioid dependence, uncomplicated 07/23/2016 08/10/2023 Other pneumonia, unspecified organism 07/23/2016 08/10/2023 Other psychoactive substance use, unspecified with unspecified psychoactive substance-induced disorder 07/23/2016 Other sequelae of other cerebrovascular disease 07/23/2016 08/10/2023 Restless legs syndrome 07/23/2016 Tachycardia, unspecified 07/23/2016 024 Acute on chronic combined sy stolic (congestive) and diastolic (congestive) heart failure 06/23/2016 08/10/2023 Anemia in chronic kidney disease 06/23/2016 08/10/2023 Angina pectoris, unspecified 06/23/201611/2023 Anxiety disorder, unspecified 06/23/2016 Diabetes mellitus due to und erlying condition with diabetic chronic kidney disease 06/23/2016 08/10/2023 Difficulty in walking, not elsewhere classified 06/23/2016 08/10/2023 Chronic pain 06/23/2016 08/10/2023 Fibromyositis 06/23/2016 08/10/2023 Fracture of one rib, unspecified side, sequela 0 06/23/2016 08/10/2023 Gastro-esophageal reflux disease without esophag itis 06/23/2016 08/10/2023 Hypothyroidism, unspecified 06/23/2016 03/0 11/2023 Insomnia, unspecified 06/23/2016 08/10/2023 Major depressive disorder, recurrent, unspecifie d 06/23/2016 08/10/2023 Other seasonal allergic rhinitis 06/23/2016 08/10/2023 Stage 3 chronic kidney disease 06/23/2016 0 08/10/2023 Syncope and collapse 06/23/2016 08/10/2023 Weakness generalized 06/23/2016 08/10/2023 Muscle weakness 06/23/2016 Nonrheumatic tricuspid valve disorder 2014 Coronary atherosclerosis 03/31/2012 Essential hypertension 03/31/2012 Primary cardiomyopathy 03/31/2012 Renal failure syndrome 03/31/2012 Encounters Date Type Department Care Team Description 11/20/2024 11:30 AM EDT Office Visit [facility] [address] [place] [address] Pedro Palomares MD Coronary artery disease involving conf[place]erated salish coronary artery of conf[place] salish heart without angina pectoris (Primary Dx); Primary hypertension from Last 3 Months Family History Relation Name Status Comments Father Mother Social History Tobacco Use Types Packs/Day Years Used Date Smoking Tobacco: Former Cigarettes Q uit: 1982 Smokeless Tobacco: Never Tobacco Cessation:Counseling Given: Not Answered Alcohol Use Standard Drinks/Week Comments Not Currently 0 (1 standard drink = 0.6 oz pur e alcohol) [place] Safety & Environment Answer Date Rec orded Fear of Current or Ex-Partner Not on file Emotionally Abused Not on file 07/28/2023 Physically Abused Not on file 07/28/2023 Sexually Abused Not on file 07/28/2023 Physically or Sexually Abused Not on file Comments Unknown Sex and Gender Information Value Date Recorded Sex Assigned at Not on file Legal Sex Female 10:23 PM EDT Gender Identity Not on file Sexual Orientation Not on file Last Filed Vital Signs Vital Sign Reading Time Taken Comments Blood Pressure 120/67 11/20/2024 11:25 AM EDT Pulse 68 11/20/2024 11:25 AM EDT Temperature - - Respiratory Rate - - Oxygen Saturation 98% 11/20/2024 11:25 AM EDT Inhaled Oxygen Concentration - - Weight 88.5 kg (195 lb) 11/20/2024 11:25 AM EDT Height 149.9 cm (4' 11 ) 11/20/2024 11:25 AM EDT Body Mass Index 39.39 11/20/2024 11:25 AM EDT Plan of Treatment Health Maintenance Due Date Last Done Comments Diabetes: Hemoglobin A1C 1945 Medicare Annual Wellness (AWV) 1945 Diabetes: Retinopathy Screening 1954 Depression Screening 1956 Pneumococcal Vaccine: 50+ Ye ars (1 of 2 - PCV) 1963 Adult Tetanus 1966 Zoster Vaccines (1 of 2) 1994 Fall Risk Screening 2009 COVID-19 Vaccine (2023-2 5 season) 2025 Influenza Vaccine (#1) 2025 HIB Vaccines Aged Out No longer eligi ble based on patient's age to complete this topic HPV Vaccines Aged Out No longer eligi ble based on patient's age to complete this topic IPV Vaccines Aged Out No longer eligi ble based on patient's age to complete this topic Meningococcal B Vaccine Aged Out No l onger eligible based on patient's age to complete this topic Meningococcal Vaccine Aged Out No annie megan eligible based on patient's age to complete this topic Rotavirus Vaccines Aged Out No longer eligible based on patient's age to complete this topic Insurance MEDICARE Care Teams Crown Ironer Operator Relationship Specialty Start Date End Date Rosmery Singer MD [address] [place] [address] #A [facility] - General 01/25/22
--- OUTSIDE RECORDS SUMMARY | 2025-02-11 10:22 | XMS_ITS | Clinical Summary ---
Author Organization [facility] Address [address] [facility] [address] [place] [place] [address] Care Team Providers Care Hydrographic Engineer Name Role Phone Unavailable Primary Care Provider Unavailabl e Source Comments The following information is NOT included in Care Everywhere downloads:Psychiatric notes, ECG results, Cardiac Rehab notes, Pulmonary Function notes, data from [email or web address] (includes but not limited toPregnancy data,audiograms, eye exams, pre-surgical evaluation notes, well-child exam data).[facility] Social History Tobacco Use Types Packs/Day Years Used Date Smoking Tobacco: Never Assessed Comments Unknown Sex and Gender Information Value Date Recorded Sex Assigned at Not on file Legal Sex Female 8:38 PM EDT Gender Identity Not on file Sexual Orientation Not on file Last Filed Vital Signs Vital Sign Reading Time Taken Comments Blood Pressure 140/80 01/08/2022 3:50 AM EDT Pulse 82 01/08/2022 3:50 AM EDT Temperature - - Respiratory Rate 16 01/08/2022 3:50 AM EDT Oxygen Saturation 100% 01/08/2022 3:50 AM EDT Inhaled Oxygen Concentration - - Weight - - Height - - Body Mass Index - - Plan of Treatment Health Maintenance Due Date Last Done Comments Tdap Booster 1963 Hepatitis A (HAV) Vaccine (optional start 19+ years) 1 07/21/1963 Pneumococcal Vaccine(s) (50+ yrs) (1 of 1 - PCV) 05/20 Shingles (RZV) Vaccine (1 of 2) 1994 Hepatitis B (HBV) Vaccine (optional start 60+ years) 1 07/21/2003 Bone Densitometry 2009 RSV vaccine (adult) (1 - 1-dose 75+ series) 2019 Annual Wellness Visit (G0438) 01/04/2023 COVID-19 Vaccine ( - season) 2025 Influenza Vaccine (#1) 2025 Pap Smear Discontinued Insurance MEDICARE [id number] [id number]
--- OUTSIDE RECORDS SUMMARY | 2025-02-11 10:22 | XMS_ITS | Clinical Summary ---
Author Organization [facility] Address [id number] [address] [place] [address] Care Team Providers Care Physical Sciences Professor Name Role Phone Rosmery Singer MD Primary Care Provider Allergies Active Allergy Reactions Criticality Noted Date Comments Butorphanol Other (See Comments) 05/24/2014 Other reaction(s): ANXIOUS Butorphanol Tartrate Other (See Comments) 05/24 Statol Medications atorvastatin (LIPITOR) 10 mg tablet Take 1 tablet (10 mg total) by mouth in the morning. 9 Active potassium chloride (K-DUR,KLOR-CO N) 10 MEQ CR tablet Take 1 tablet (10 mEq total) by mouth in the morning and 1 tablet (10 mEq total) before bedtime. 9 Active carvedilol (COREG) 6.25 mg tablet Take 0.5 tablets (3.125 mg total) by mouth in the morning and 0.5 tablets (3.125 mg total) before bedtime. 9 Active rOPINIRole (REQUIP) 4 mg tablet Take 0.5 tablets (2 mg total) by mouth in the morning. 9 Active LYRICA 150 mg capsule Take 1 capsule (150 mg total) by mouth in the morning and 1 capsule (150 mg total) before bedtime. 9 Active furosemide (LASIX) 20 mg tablet Take 2 tablets (40 mg total) by mouth daily. 9 Active metFORMIN (GLUCOPHAGE) 500 mg tablet Take 1 tablet (500 mg total) by mouth in the morning and 1 tablet (500 mg total) before bedtime. 9 Active levothyroxine (SYNTHROID, LEVOTHROID) 50 MCG tablet Take 1 tablet (50 mcg total) by mouth in the morning. Active aspirin 81 mg Take 1 tablet (81 mg total) by mouth daily. Active fluticasone propionate (FLONASE) 50 mcg/actuation nasal spray 9 Active nitroglycerin (NITROSTAT) 0.4 MG SL tablet nitroglycerin 0.[address] 1 tablet as needed by sublingual route as needed for 30 days. Active NYAMYC powder 9 Active traZODone (DESYREL) 150 mg tablet daily. Active timolol (TIMOPTIC-XE) 0.5 % ophthalmic gel-forming INSTILL 1 DROP INTO EACH EYE ONCE A DAY 12 9 Active ergocalciferol (DRISDOL) 1,250 mcg (50,000 unit) capsule Active cetirizine (ZyrTEC) 10 mg tablet Take 1 tablet (10 mg total) by mouth in the morning. Active magnesium 30 mg tablet Take 400 mg by mouth in the morning. Four times a week . Active DULoxetine (CYMBALTA) 60 mg capsule Take 1 capsule (60 mg total) by mouth daily. 60 capsule 1 0 Active Additional Information Patient not taking.Reported on 11/22/2023 ferrous sulfate 325 (65 FE) mg tablet Take 1 tablet (325 mg total) by mouth. 3 times a week Active docusate sodium (COLACE) 100 mg capsule Take 2 capsules (200 mg total) by mouth. Active traMADoL (ULTRAM) 50 mg tablet Take 1 tablet (50 mg total) by mouth 3 (three) times a day as needed. Active docusate calcium (SURFAK) 240 mg capsule TAKE TWO CAPSULES BY MOUTH EVERY 2 DAYS NEEDED 2 Active magnesium oxide 400 mg magnesium capsule magnesium 400 mg (as magnesium oxide) capsule 4 times a week Active acetaminophen (TYLENOL EXTRA STRENGTH) 500 mg tablet Take 2 tablets (1,000 mg total) by mouth. 3 Active HYDROcodone-ac etaminophen (NORCO) 5-325 mg per tablet Take 1 tablet by mouth in the morning. Max Daily Amount: 1 tablet. Active cranberry-dali min C-mannose 250-30-50 mg tablet,chewabl e Chew and swallow. Ac tive mirabegron (MYRBETRIQ) 50 mg tablet extended release 24 hr Take 1 tablet (50 mg total) by mouth in the morning. 90 tablet 3 4 Active Active Problems Problem Noted Date Diagnosed Date Urge incontinence 03/22/2023 Overview (11/22/2023): 03/22/23: Mixed urinary incontinence predominantly urge. Plan [...] effects with confusion. Did also talk about Botox and neurostimulator but she was content using the medication only. Assessment & Plan (05/18/2023 11:45 AM EST): We will check and see if the [...] 25 mg. Post-traumatic osteoarthritis of left wrist 01/04 Left wrist pain 01/11/2023 Right shoulder pain 07/21/2022 Disorder of sacrum 11/04/2021 Lumbar spondylosis 11/04/2021 Congestive heart failure 03/15/2019 Edema 03/15/2019 Nonrheumatic tricuspid valve disorder 2014 Coronary atherosclerosis 03/31/2012 Essential hypertension 03/31/2012 Primary cardiomyopathy 03/31/2012 Renal failure syndrome 03/31/2012 Encounters Date Type Department Care Team Description 11/19/2024 Telephone [facility] [address] [place] [id number] Yara Daniel RMA from Last 3 Months Family History Medical History Relation Name Comments Heart disease Father Heart disease Mother Relation Name Status Comments Father Mother Social History Tobacco Use Types Packs/Day Years Used Date Smoking Tobacco: Never Smokeless Tobacco: Never Tobacco Cessation:Counseling Given: Not Answered Alcohol Use Standard Drinks/Week Comments Not Currently 0 (1 standard drink = 0.6 oz pur e alcohol) Childcare Answer Date Recorded Childcare Unknown 11/15/2018 Employment Answer Date Recorded Employment Unknown 11/15/2018 Hunger Screening Answer Date Recorded Within the past 12 months we worried whether our food would run out before we got money to buy more. Never True 11/22/2023 Within the past 12 months th e food we bought just didn't last and we didn't have money to get more. Never True 11/22/2023 Purpose - Life Answer Date Recorded Purpose and direction in life Unknown Comments No Sex and Gender Information Value Date Recorded Sex Assigned at Not on file Legal Sex Female 12:04 PM EDT Gender Identity Not on file Sexual Orientation Not on file Last Filed Vital Signs Vital Sign Reading Time Taken Comments Blood Pressure 122/67 11/22/2023 12:05 PM EDT Pulse 80 11/22/2023 12:05 PM EDT Temperature 36.7 C (98 F) 09/24/2022 10:40 AM EDT Respiratory Rate 18 01/19/2023 12:36 PM EDT Oxygen Saturation 96% 01/19/2023 12:36 PM EDT Inhaled Oxygen Concentration - - Weight 82.6 kg (182 lb) 11/22/2023 12:05 PM EDT Height 149.9 cm (4' 11 ) 11/22/2023 12:05 PM EDT Body Mass Index 36.76 11/22/2023 12:05 PM EDT Plan of Treatment Health Maintenance Due Date Last Done Comments Depression Screening 1957 DTaP,Tdap and Td Vaccines (1 - Tdap) 1963 Zoster (Shingles) Vaccine (1 of 2) 1994 Fall Risk Screening 2009 Tobacco Screening 11/21/2024 11/22/2023 Influenza Vaccine 02/04/2025 Medical Devices Implanted Type Area Plant Physiologist Device Identifier Shelf Expiration Date Model / Serial / Lot Orthopedic Implant Orthopedic Implant Left: Femur Insurance MEDICARE MEDICAID [place] Care Teams Physical Sciences Professor Relationship Specialty Start Date End Date Rosmery Singer MD [address] [place] [address] PCP - General Family Medicine 07/21/22
--- OUTSIDE RECORDS SUMMARY | 2025-02-11 10:22 | XMS_ITS | Encounter Summary ---
Author Organization [facility] Address [address] [place] [address] Care Team Providers Care Dynamite Packing Machine Feeder Name Role Phone Rosmery Singer MD Primary Care Provider [phone] Encounter Details Date Type Department Care Team (Late st Contact Info) Description 01/21/[address] [facility] Family Medicine [address] [place] [place] [id number] Nenita Mcmullen MA Social History Tobacco Use Types Packs/Day Years [...] on filedocumented in this encounter Care Teams Dynamite Packing Machine Feeder Relationship Specialty Start Date End Date Rosmery Singer MD [address] PCP - General 01/25/22 documented as of this encounter
--- OUTSIDE RECORDS SUMMARY | 2025-02-11 10:22 | XMS_ITS | Clinical Summary ---
Author Organization [facility] Address [address] [place] [address] Phone Care Team Providers Care Retina Subspecialist Name Role Phone Unavailable Primary Care Provider Unavailabl e Social History Tobacco Use Types Packs/Day Years Used Date Smoking Tobacco: Never Assessed Comments Unknown Sex and Gender Information Value Date Recorded Sex Assigned at Not on file Legal Sex Female 12:19 PM EST Gender Identity Not on file Sexual Orientation Not on file Plan of Treatment Health Maintenance Due Date Last Done Comments Lipid Panel 1945 Medicare Annual Wellness Vis it (AWV) 1945 Pneumococcal Vaccine (1 of 2 - PCV) 1963 DTaP/Tdap/Td Vaccines (1 - Tdap) 1966 Zoster Vaccines (1 of 2) 1994 Bone Density Scan 2009 RSV High Risk: (Elderly (60+ ) or Population) (1 - 1-dose 75+ series) 2019 COVID-19 Vaccine ( - 2023-2 5 season) 2025 Influenza Vaccine (#1) 2025 HIB Vaccines Aged Out No longer eligi ble based on patient's age to complete this topic HPV Vaccines Aged Out No longer eligi ble based on patient's age to complete this topic Hepatitis A Vaccines Aged Out No long er eligible based on patient's age to complete this topic Hepatitis B Vaccines Aged Out No long er eligible based on patient's age to complete this topic IPV Vaccines Aged Out No longer eligi ble based on patient's age to complete this topic Meningococcal Vaccine Aged Out No annie megan eligible based on patient's age to complete this topic Rotavirus Vaccines Aged Out No longer eligible based on patient's age to complete this topic Insurance MEDICARE PART A AND B Member Subscriber Plan / Payer (Ef fective 1994-Present) Name:Hermila Patterson Member ID:[id number] Relation to Subscriber:Self Name:Hermila Patterson Subscriber ID:[id number] Payer ID:Not on file Group ID:Not on file Type:Not on file Address: [place] [id number] MEDICARE PART A AND B
--- OUTSIDE RECORDS SUMMARY | 2025-02-11 10:22 | XMS_ITS | Encounter Summary ---
Author Organization [facility] tem Address [facility] [id number] [address] [place] [address] Care Team Providers Care Business Director Name Role Phone Rosmery Singer MD Primary Care Provider [phone] Encounter Details Date Type Department Care Team (Late st Contact Info) Description 08/16/2022 Telephone [facility] [address] [place] [address] Deepthi Tinsley RN Social History Tobacco Use Types Packs/Day Years [...] Exposure Response Date Recorded In the last month, have you been in contact with someone who was confirmed or suspected to have Coronavirus / COVID-19? No / Unsure 07/21/2022 12:37 PM EST documented as of this encounter Miscellaneous Notes * Telephone Encounter - Deepthi Tinsley RN - 08/16/2022 3:56 PM EDT Call received from patient's daughter requesting to schedule patient for a procedure. documented in this encounter Plan of Treatment Not on file documented as of this encounter Visit Diagnoses Not on filedocumented in this encounter Care Teams Business Director Relationship Specialty Start Date End Date Rosmery Singer MD [address] [place] [address] PCP - General Family Medicine 07/21/22 documented as of this encounter
--- OUTSIDE RECORDS SUMMARY | 2025-02-11 10:22 | XMS_ITS | Encounter Summary ---
Author Organization [facility] tem Address [id number] [address] [place] [address] Care Team Providers Care Management Consulting Name Role Phone Rosmery Singer MD Primary Care Provider [phone] Encounter Details Date Type Department Care Team (Late st Contact Info) Description 03/03/2022 Orders Only [facility] [address] [place] [address] Shelley Juarez PA-C [address] [facility], [address] [place] [address] Disorder of sacrum (Primary Dx); Coccydynia Social History Tobacco Use Types Packs/Day Years [...] have Coronavirus / COVID-19? No / Unsure 03/02/2022 1:13 PM EDT documented as of this encounter Plan of Treatment Not on file documented as of this encounter Visit Diagnoses Diagnosis Disorder of sacrum- Primary Disorders of sacrum Coccydynia Other disorder of coccyx documented in this encounter Care Teams Management Consulting Relationship Specialty Start Date End Date Rosmery Singer MD [address] [place] [address] PCP - General Family Medicine 07/21/22 documented as of this encounter
--- OUTSIDE RECORDS SUMMARY | 2025-02-11 10:27 | XMS_ITS | CCD ---
Author Organization [facility] Care Team Providers Care Final Cleaner Name Role Phone PHYSICIAN, DEFAULT Unavailable Unavailable PHYSICIAN, DEFAULT Unavailable Unavailable DIO ZAFAR Unavailable Unavailable PHYSICIAN, DEFAULT Unavailable Unavailable PHYSICIAN, DEFAULT Unavailable Unavailable ANDRADE, DIO S Unavailable Unavailable PHYSICIAN, DEFAULT Unavailable Unavailable PHYSICIAN, DEFAULT Unavailable Unavailable ANDRADE, DIO S Unavailable Unavailable PHYSICIAN, DEFAULT Unavailable Unavailable PHYSICIAN, DEFAULT Unavailable Unavailable ANDRADE, DIO S Unavailable Unavailable Germania, Yaneth Unavailable Unavailable Primary Care Provider Unavailabl e PROVIDER, UNKNOWN Attending Unavailable PROVIDER, UNKNOWN Admitting Unavailable FREDDY, DR HARPAL Rodriguez Primary Care Unavailable PIPPA, MEI Attending Unavailable PIPPA, MEI Admitting Unavailable HAYES, DR HARPAL Rodriguez Primary Care Unavailable GERMANIA, YANETH Attending Unavailable GERMANIA, YANETH Admitting Unavailable HAYES, DR HARPAL Rodriguez Primary Care Unavailable JANE [...] Unavailable FREDDY, DR HARPAL Rodriguez Attending Unavailable HAYES, DR HARPAL Rodriguez Admitting Unavailable HAYES, DR HARPAL Rodriguez Consulting Unavailable GERMANIA, YANETH Consulting Unavailable HAYES, DR HARPAL Rodriguez Primary Care Unavailable GERMANIA, YANETH Attending Unavailable GERMANIA, YANETH Admitting Unavailable PIPPA, MEI Consulting Unavailable PIPPA, MEI Attending Unavailable PIPPA MEI Admitting Unavailable DR [...] Delvalle Attending Unavailable Tika CHRISTENSEN Attending Unavailable AMPAROAugustus VILLAFUERTEobir R Admitting Unavailable AMPARO DO Ronobir R Admitting Unavailabl e AMPARO DO Ronobir R Attending Unavailabl e [facility], XXXX [...] Consulting Unavailable Akers, Goins Consulting Unavailable Akers, Gions Consulting Unavailable Akers, Goins Consulting Unavailable Akers, Goins Consulting Unavailable Akers, Goins Consulting Unavailable Akers, Goins Consulting Unavailable Akers, Goins Consulting Unavailable Akers, Goins Consulting Unavailable Miguel Ramires Attending Unavailable Harpal Hayes MD Primary Care Provider Harpal Hayes MD Primary Care Provider JOSH AUSTIN Attending Unavailable JOSH AUSTIN Attending Unavailable Harpal Hayes MD Primary Care Provider Harpal Hayes MD Attending Provider Jaden Kaur MD Attending Provider [phone] Jaden Kaur Attending Unavailable Jaden Kaur Admitting Unavailable Harpal Hayes Primary Care Unavailable Allergies Allergy Classification Reported Allergen(s) Allergy Type Date of Onset Reaction(s) Facility (20 sources) butorphanol; Translations: [Stadol] Drug Allergy 2 ANXIOUS [facility] Repository (14 sources) PT DENIES ANY METAL ALLERGY Propensity to adverse reactions Unknown [employer] Other (11 sources) Butorphanol; Translations: [butorphanol] Drug Allergy 4 Other (See Comments) [facility] (10 sources) Stadol *ANALGESICS - OPIOID* Propensity to adverse reactions Unknown [employer] Other (2 sources) Allergies Reconciled Propensity to adverse reactions Unknown [employer] Other (3 sources) Butorphanol; Translations: [BUTORPHANOL TARTRATE] Drug Allergy 4 Other (See Comments) [facility] Repository (1 source) Butorphanol Drug Allergy 5 [facility] Repository Medications Current Medications Medication Drug Class(es) Dates Sig (Normalized) Sig (Original) acetaminophen 325 mg oral tablet (20 sources) Start: 04-06-2024 acetaminophen 325 mg Tab 650 mg = 2 tab(s), Oral, q6hr, PRN Pain, not to exceed 4000 mg/day, Refills(s) 0 Start Date: 04/06/24 Status: Ordered Start: 08-04-2023 take 2 capsules by m outh every six hours as needed Start: 08-04-2023 take 1000 mg by mout [...] oral tablet (20 sources) Opioid Agonist Start: 12-21-2024 End: 01-21-2025 take 1 tablet by mouth twice daily as needed for pain Start: 09-06-2023 End: 01-02-2024 take 1 tablet by mouth once daily as needed for pain Hydrocodone-Acetaminophen 5-325 mg table t Discontinued 1 TAB PO Daily as needed for pain December 02, 2023 January 02, 2024 9:18am Start: 08-02-2023 End: 09-06-2023 take 1 tablet by mouth every eight hours Hydrocodone-Acetaminophen 5-325 mg table t Discontinued 1 TAB PO Every 8 hours [...] 30 days Jan, Active Start: 12-06-2022 End: 12-20-2024 take 1 tablet by mouth twice daily as needed for pain Hydrocodone-Acetaminophen 5-325 mg table t Discontinued 1 TAB PO Twice daily as needed for pain 60 30 November 22, 2024 December 20, 2024 12:37pm Start: 12-06-2022 take 1 tablet by sara th every eight hours as needed for pain [place] 325 mg-5 mg oral tablet 1 tab(s), Oral, q8hr as needed for pain, Refill(s) 0 Start Date: 12/06/22 Status: Ordered Start: 11-13-2022 [place] 325 mg-5 mg oral tablet 1 tab(s), [...] take 1 tablet by mouth once daily atorvastatin 10 mg oral tablet (20 sources) HMG-CoA Reductase Inhibitor Start: 08-13-2024 take 1 tablet by mouth once daily at bedtime Start: 03-27-2024 End: 08-13-2024 take 1 tablet by mouth once daily Atorvastatin 10 mg tablet Discontinued 0 .ROUTE .COMPLEX March 27, 2024 10:04pm August 13, 2024 2:33pm TAKE ONE TABLET BY MOUTH DAILY Start: 03-27-2024 take 1 tablet by sara th once daily Atorvastatin Active 0 .ROUTE .COMPLEX March 27, 2024 10:04pm TAKE ONE TABLET BY MOUTH DAILY Start: 09-22-2018 End: 03-27-2024 take 1 tablet by mouth once daily Atorvastatin 10 mg tablet Discontinued 10 MG PO Daily September 22, 2018 12:00am March 27, 2024 10:04pm benzonatate 100 mg oral capsule (1 source) Non-narcotic Antitussive Start: 04-06-2024 End: 04-11-2024 take 1 capsule by mouth three times daily as needed for cough Tessalon 100 mg Cap 100 mg = 1 cap(s), Oral, TID, PRN Cough, X 5 day(s), # 15 cap(s), Refills(s) 0, Pharmacy: [facility], 157.4, cm, 04/04/24 0:33:00 EDT, Height/Length [...] day(s), # 8 cap(s), Refills(s) 0, Pharmacy: [facility], 152, cm, 12/02/22 9:48:00 EDT, Height/Length Dosing, 87.8, kg, 12/02/22 9:48:00 EDT, Weight Dosing Start Date: 12/03/22 Stop Date: 12/07/22 Status: Ordered cefuroxime 500 mg oral tablet (2 sources) Cephalosporin Antibacterial Start: 08-03-2023 take 1 tablet by mouth twice daily cefuroxime 500 mg oral tablet 500 mg = 1 tab(s), Oral, BID, # 4 tab(s), Refills(s) 0, Pharmacy: [facility], 149.9, cm, 07/30/23 20:35:00 EST, Height/Length Dosing, 88.9, kg, 07/30/23 20:35:00 EST, Weight Dosing Start Date: 08/03/23 Status: Ordered Start: 06-18-2021 take 1 tablet by sara th every twelve hours Cefuroxime Axetil 250 MG 1 tablet Orally every 12 hrs for 5 day(s) Jun, Active cephalexin 500 mg oral capsule (1 source) Cephalosporin Antibacterial Start: 01-25-2025 take 1 capsule by mouth three times daily cetirizine hydrochloride 10 mg oral tablet (20 sources) Histamine-1 Receptor Antagonist Start: 11-11-2022 take 1 tablet by mouth once daily cholecalciferol 0.125 mg oral capsule (20 sources) Vitamin D Start: 11-12-2024 take 1 capsule by mouth three times weekly Start: 08-05-2023 End: 11-12-2024 take 1 capsule by mouth once daily Cholecalciferol (Vitamin D3) 125 mcg (5,000 unit) capsule Discontinued 5000 UNIT PO Daily December 20, 2023 11:24am November 12, 2024 1:29pm 3xweek Tue, Tue, Tue Start: 08-04-2023 End: 08-05-2023 take 1 capsule by mouth once daily Cholecalciferol (Vitamin D3) 125 mcg (5,000 unit) capsule Discontinued 125 MCG PO Daily August 04, [...] 1 capsule Orally MON, WED, FRI Active Vitamin D3 250 M CG (94088 UT) 1 capsule Orally MON, WED, FRI Active ciprofloxacin 500 mg oral tablet (2 sources) Quinolone Antimicrobial Start: 12-01-2022 take 1 tablet by mouth every twelve hours ciprofloxacin 500 mg Tab 500 mg = 1 tab(s), Oral, q12hr, # 10 tab(s), Refills(s) 0, Pharmacy: [facility], 152, cm, 11/10/22 21:21:00 EDT, Height/Length Dosing, 83, kg, 11/10/22 21:21:00 EDT, Weight Dosing Start Date: 12/01/22 Status: Ordered cranberry-vitamin C-mannose 250-30-50 mg tablet,chewable (2 sources) cranberry-vitami n C-mannose 250-30-50 mg tablet,chewable Chew and swallow. Active D-Mannose (11 sources) Start: 08-13-2024 take 1 capsule by mouth twice daily Start: 08-13-2024 take 1 capsule by [facility] twice daily D-Mannose 500 mg capsule Active 1000 MG PO Twice daily August 13, 2024 2:28pm Start: 08-04-2023 End: 08-13-2024 take 1 capsule by mouth once D-Mannose 500 mg capsule Discontinued MG PO August 04, 2023 1:00am August 13, 2024 2:33pm Start: 08-04-2023 take 1 capsule by mouth once D -Mannose 500 mg capsule Active MG PO August 04, 2023 1:00am Start: 08-04-2023 take 1 mg by mouth once D-Rabago ose Active MG PO August 04, 2023 1:00am d-mannose 500 mg capsule (3 sources) take 2 capsules by mouth every twelve hours D-Mannose 500 MG 2 CAPSULES Orally TWICE A DAY Active docusate calcium 240 mg oral capsule (20 sources) Start: 04-09-2024 take 1 capsule by mouth four times weekly as needed Start: 08-04-2023 End: 04-09-2024 take 1 capsule by mouth once daily as needed Docusate Calcium 240 mg capsule Discontinued 240 MG PO Daily as needed August 04, 2023 1:00am April 09, 2024 5:44pm Start: 07-31-2023 take 1 capsule by mo ut twice daily as needed for constipation Colace 100 mg Cap 100 mg = 1 cap(s), Oral, BID, PRN for constipation, # 20 cap(s), Refills(s) 0 Start Date: 07/31/23 Status: Ordered Start: 10-05-2021 take 2 capsules by m out every other day as needed docusate calcium (SURFAK) 240 mg capsule TAKE TWO CAPSULES BY MOUTH EVERY 2 DAYS NEEDED 10/05/2021 Active docusate sodium (COLACE) 100 mg capsule Take 2 capsules (200 mg total) by mouth. Active take 1 capsule by [facility] four times weekly as needed Stool Softener 240 MG 1 capsule as needed Orally four times a week as needed for 30 days Active DULoxetine 60 mg delayed release oral capsule (2 sources) Serotonin and Norepinephrine Reuptake Inhibitor Start: 06-13-2019 take 1 capsule by mouth once daily DULoxetine (CYMBALTA) 60 mg capsule Take 1 capsule (60 mg total) by mouth daily. 60 capsule 1 06/13/2019 Active ergocalciferol 1.25 mg oral capsule (2 sources) Provitamin D2 Compound ergocalciferol (DRISDOL) 1,250 mcg (50,000 unit) capsule Active fluticasone propionate 0.05 mg/actuat metered dose nasal spray (2 sources) Corticosteroid Start: 02-20-2019 fluticasone propionate (FLONASE) 50 [...] Weight Dosing Start Date: 04/06/24 Status: Ordered 12 hr guaiFENesin 600 mg extended release oral tablet (1 source) Start: 04-06-2024 End: 04-11-2024 take 2 tablets by mouth every twelve hours Mucinex 600 mg Tab-ER 1,200 mg = 2 tab(s), Oral, q12hr, X 5 day(s), # 20 tab(s), Refills(s) 0, Pharmacy: [facility], 157.4, cm, 04/04/24 0:33:00 EDT, Height/Length Dosing, 86.1, kg, 04/04/24 0:33:00 EDT, Weight Dosing Start Date: 04/06/24 Stop Date: 04/11/24 Status: Ordered levothyroxine sodium 0.05 mg oral tablet (20 sources) l-Thyroxine Start: 08-13-2024 End: 12-27-2024 take 1 tablet by mouth once daily Start: 03-06-2024 End: 08-13-2024 take 1 tablet by mouth once daily Levothyroxine 50 mcg tablet Discontinued 0 .ROUTE .COMPLEX June 04, 2024 3:36pm August 13, 2024 2:33pm TAKE ONE TABLET BY MOUTH DAILY Start: 03-06-2024 End: 06-04-2024 take 1 tablet by mouth once daily Levothyroxine 50 mcg tablet Discontinued 0 .ROUTE .COMPLEX March 06, 2024 8:28am June 04, 2024 3:37pm TAKE ONE TABLET BY MOUTH DAILY Start: 03-06-2024 take 1 tablet by sara th once daily Levothyroxine Active 0 .ROUTE .COMPLEX March 06, 2024 8:28am TAKE ONE TABLET BY MOUTH DAILY Start: 11-13-2022 take 1 tablet by sara th once daily levothyroxine 50 mcg (0.05 mg) Tab 50 mcg = 1 tab(s), Oral, Daily, Refills(s) 0 Start Date: 11/13/22 Status: Ordered Start: 09-22-2018 End: 03-06-2024 take 1 tablet by mouth once daily Levothyroxine 50 mcg tablet Discontinued 50 MCG PO Daily September 22, 2018 12:00am March 06, 2024 8:29am Magnesium (18 sources) take 1 tablet by sara th once daily Magnesium 400 MG 1 Tablet Orally Once a day Active Magnesium 400 MG as directed Orally four times a week Active magnesium gluconate 550 mg oral tablet (2 sources) magnesium 30 mg tablet Take 400 mg by mouth in the morning. Four times a week . Active metFORMIN hydrochloride 500 mg oral tablet (20 sources) Biguanide Start: 08-13-2024 take 1 tablet by mouth twice daily at mealtime Start: 03-27-2024 End: 08-13-2024 take 1 tablet by mouth twice daily Metformin 500 mg tablet Discontinued 0 .ROUTE .COMPLEX 180 March 27, 2024 10:04pm August 13, 2024 2:33pm TAKE ONE TABLET BY MOUTH TWICE A DAY Start: 03-27-2024 take 1 tablet by sara th twice daily Metformin Active 0 .ROUTE .COMPLEX 180 March 27, 2024 10:04pm TAKE ONE TABLET BY MOUTH TWICE A DAY Start: 01-30-2016 End: 03-27-2024 take 1 tablet by mouth twice daily Metformin 500 mg tablet Discontinued 500 MG PO Twice daily September 22, 2018 12:00am March 27, 2024 10:04pm 24 hr mirabegron 25 mg extended release oral tablet (20 sources) beta3-Adrenergic Agonist Start: 11-12-2024 take 1 tablet b y mouth once daily Start: 08-13-2024 End: 11-12-2024 take 1 tablet by mouth once daily Mirabegron 25 mg tablet extended release 24 hr Discontinued 25 MG PO Daily 90 August 13, 2024 11:24am November 12, 2024 1:29pm Start: 07-31-2023 End: 08-13-2024 take 1 tablet by mouth once daily Mirabegron (Myrbetriq) 50 mg tablet extended release 24 hr Discontinued 50 MG PO Daily August 04, 2023 1:00am September 21, 2023 10:00pm Start: 05-18-2023 End: 11-22-2023 take 1 tablet [...] day Active nitroglycerin 0.4 mg sublingual tablet (9 sources) Nitrate Vasodilator Start: 11-11-2022 nitroglyce rin [...] powder (20 sources) Polyene Antifungal Start: 12-23-2023 End: 01-24-2025 Start: 11-11-2022 End: 12-23-2023 Nystatin 100,000 unit/gram p owder Discontinued 1 APPLIC TOPICAL Twice daily August 04, 2023 1:00am December 23, 2023 10:51am Start: 01-18-2019 NYAMYC powder 01/18/2019 Active Nystatin 934802 UNIT/GM 1 application Externally Twice a day for 10 days Active pantoprazole 40 mg delayed release oral tablet (1 source) Proton Pump Inhibitor Start: 04-06-2024 take 1 tablet by mouth once daily Protonix 40 mg Tab-DR 40 mg = 1 tab(s), Oral, Daily, # 30 tab(s), Refills(s) 0, Pharmacy: [facility], 157.4, cm, 04/04/24 0:33:00 EDT, Height/Length Dosing, 86.1, kg, 04/04/24 0:33:00 EDT, Weight Dosing Start Date: 04/06/24 Status: Ordered potassium chloride 10 meq extended release oral tablet (20 sources) Start: 08-13-2024 take 1 tablet by mouth twice daily Start: 05-01-2024 End: 08-13-2024 take 1 tablet by mouth twice daily at mealtime Potassium Chloride 10 mEq tablet extended release Discontinued 0 .ROUTE .COMPLEX 180 May 01, 2024 9:33am August 13, 2024 2:33pm TAKE ONE TABLET BY MOUTH TWICE A DAY WITH FOOD Start: 11-11-2022 take 1 tablet by sara th twice daily Potassium Chloride (Eqv-K-Tab) 10 mEq [...] total) before bedtime. 01/01/2019 Active Start: 09-22-2018 End: 05-01-2024 take 1 tablet by mouth twice daily Potassium Chloride 10 mEq tablet extended release Discontinued 1 TAB PO Twice daily September 22, 2018 12:00am May 01, 2024 9:33am pregabalin 75 mg oral capsul e (20 sources) Start: 12-06-2024 End: 01-03-2025 take 1 capsule by mouth twice daily Start: 11-12-2024 End: 12-06-2024 take 1 capsule by mouth twice daily Pregabalin 100 mg capsule Discontinued 100 MG PO Twice daily 60 November 12, 2024 2:20pm December 06, 2024 9:40am Start: 07-31-2024 End: 11-12-2024 take 1 capsule by mouth twice daily Pregabalin 75 mg capsule Discontinued 75 MG PO Twice daily 60 October 19, 2024 8:36am November 12, 2024 2:21pm Start: 03-19-2024 End: 07-31-2024 take 1 capsule by mouth twice daily Pregabalin 100 mg capsule Discontinued 100 MG PO Twice daily 30 July 16, 2024 3:12pm July 31, 2024 9:11am Start: 09-06-2023 End: 03-19-2024 take 1 capsule by mouth twice daily Pregabalin 75 mg capsule Discontinued 75 MG PO Twice daily 60 March 06, 2024 8:30am March 19, 2024 4:29pm Start: 03-08-2019 End: 08-05-2023 take 1 capsule by mouth twice daily Pregabalin 150 mg capsule Discontinued 150 MG PO Twice daily August 04, 2023 9:25am August 05, 2023 3:00pm Start: 03-08-2019 End: 09-06-2023 take 1 capsule by mouth once daily Pregabalin 150 mg capsule Discontinued 150 MG PO Daily August 05, 2023 2:54pm September 06, 2023 11:30am Start: 09-22-2018 End: 08-04-2023 take 1 capsule by mouth three times daily Pregabalin (Lyrica) 150 mg capsule Discontinued 150 MG PO Three times daily September 22, 2018 12:00am August 04, 2023 9:29am rOPINIRole 2 mg oral tablet (20 sources) Nonergot Dopamine Agonist Start: 09-20-2024 End: 12-20-2024 take 1 tablet by mouth once daily at bedtime Start: 08-13-2024 End: 09-20-2024 take 1 tablet by mouth once daily at bedtime Ropinirole 2 mg tablet Discontinued 2 MG PO Daily at bedtime August 13, 2024 2:32pm September 20, 2024 8:33am Start: 04-06-2024 take 2 tablets by mo uth at bedtime ropinirole 1 mg Tab 2 mg = 2 tab(s), Oral, Bedtime, Refills(s) 0 Start Date: 04/06/24 Status: Ordered Start: 11-11-2023 End: 08-13-2024 take 1 tablet by mouth once daily at bedtime Ropinirole 2 mg tablet Discontinued 0 .ROUTE .COMPLEX May 21, 2024 4:03pm August 13, 2024 2:33pm TAKE ONE TABLET BY MOUTH ONCE DAILY 1 TO 3 HOURS BEFORE BEDTIME Start: 09-06-2023 End: 11-11-2023 take 1 tablet by mouth once daily at bedtime Ropinirole 2 mg tablet Discontinued 2 MG PO Daily at bedtime October 05, 2023 8:34am November 11, 2023 12:15pm administer 1-3 hours before bedtime Start: 08-05-2023 End: 09-06-2023 take 1 tablet by mouth once daily Ropinirole 3 mg tablet Discontinued 3 MG PO Daily August 05, 2023 1:00am September 06, 2023 11:31am Start: 02-19-2019 take 0.5 tablet by m outh in the morning rOPINIRole (REQUIP) 4 mg tablet Take 0.5 tablets (2 mg total) by mouth in the morning. 02/19/2019 Active Start: 09-22-2018 End: 08-05-2023 take 1 tablet by mouth once daily Ropinirole 4 mg tablet Discontinued 4 MG PO Daily September 22, 2018 12:00am August 05, 2023 2:59pm timolol 0.005 mg/mg ophthalmic gel (2 sources) beta-Adrenergic Skyler Start: 02-24-2019 apply 1 drop(s) into the eye(s) once daily timolol (TIMOPTIC-XE) 0.5 % ophthalmic gel-forming INSTILL 1 DROP INTO EACH EYE ONCE A DAY 12 02/24/2019 Active traMADol hydrochloride 50 mg oral tablet (2 sources) Opioid Agonist take 1 tablet by mouth three times daily as needed traMADoL (ULTRAM) 50 mg tablet Take 1 tablet (50 mg total) by mouth 3 (three) times a day as needed. Active traZODone hydrochloride 100 mg oral tablet (20 sources) Serotonin Reuptake Inhibitor Start: 11-12-2024 Start: 08-13-2024 End: 11-12-2024 take 1 tablet by mouth once daily at bedtime Trazodone 100 mg tablet Discontinued 100 MG PO Daily at bedtime September 28, 2024 1:15pm November 12, 2024 1:29pm Start: 04-04-2024 take 100 mg by mouth at bedtim e trazodone 100 mg, Oral, Bedtime, Refills(s) 0 Start Date: 04/04/24 Status: Ordered Start: 01-10-2024 End: 08-13-2024 take 1 tablet by mouth once daily at bedtime Trazodone 100 mg tablet Discontinued 0 .ROUTE .COMPLEX May 21, 2024 5:33pm August 13, 2024 2:33pm TAKE ONE TABLET BY MOUTH DAILY AT BEDTIME Start: 09-06-2023 End: 01-10-2024 take 1 tablet by mouth once daily at bedtime Trazodone 100 mg tablet Discontinued 100 MG PO Daily at bedtime September 06, 2023 12:00am January 10, 2024 9:50am Start: 08-05-2023 End: 09-06-2023 Trazodone 150 mg tablet Disc ontinued 100 MG PO Daily at bedtime August 05, 2023 2:52pm September 06, 2023 11:31am Start: 08-05-2023 End: 09-06-2023 take 100 mg by mouth once daily at bedtime Trazodone Discontinued 100 MG PO Daily at bedtime August 05, 2023 2:52pm September 06, 2023 11:31am Start: 08-04-2023 End: 08-05-2023 take 1 tablet by mouth once daily at bedtime as needed for sleep Trazodone 150 mg tablet Discontinued 0 .ROUTE .COMPLEX August 04, 2023 3:23pm August 05, 2023 3:00pm TAKE ONE TABLET BY MOUTH ONCE DAILY AT BEDTIME NEEDED FOR SLEEP Start: 08-04-2023 End: 08-05-2023 take 1 tablet by mouth once daily at bedtime as needed for sleep Trazodone Discontinued 0 .ROUTE .COMPLEX August 04, 2023 3:23pm August 05, 2023 3:00pm TAKE ONE TABLET BY MOUTH ONCE DAILY AT BEDTIME NEEDED FOR SLEEP Start: 11-11-2022 End: 08-04-2023 take 1 tablet by mouth once daily at bedtime as needed Trazodone 150 mg tablet Discontinued 150 MG PO Daily at bedtime as needed August 04, 2023 1:00am August 04, 2023 3:23pm Start: 09-22-2018 End: 08-04-2023 Trazodone 100 mg tablet Disc ontinued 50 MG PO Bedtime as needed for Sleep September 22, 2018 12:00am August 04, 2023 9:27am Start: 09-22-2018 End: 08-04-2023 take 50 mg [...] a day Active Vitamin D3 250 MCG (29871 UT) (9 sources) Vitamin D3 250 M CG (98595 UT) 1 capsule Orally MON, WED, FRI Active Vitamin D3 Maximum Strength 125 MCG (5000 UT) (4 sources) take 1 tablet by mouth three times weekly Vitamin D3 Maximum Strength 125 MCG (5000 UT) 1 tab(s) Orally THREE TIMES A WEEK Active take 2 tablets by mo ut three times weekly Vitamin D3 Maximum Strength 125 MCG (500 0 UT) 2 TABLETS Orally THREE TIMES A WEEK Active Completed/Discontinued Medications Medication Drug Class(es) Dates Sig (Normalized) Sig (Original) acetaminophen 325 mg / oxyCODONE hydrochloride 7.5 mg oral tablet (16 sources) Opioid Agonist Start: 10-20-2018 End: 08-02-2023 take 1 tablet by mouth three times daily as needed for pain Oxycodone-Acetamino phen 7.5-325 mg tablet Discontinued 1 TAB PO Three times daily as needed for Pain October 20, 2018 12:00am August 02, 2023 3:33pm Start: 09-22-2018 End: 10-20-2018 take 1 tablet by mouth twice daily as needed for pain Oxycodone-Acetaminophen 5-325 mg tablet Discontinued 1 TAB PO Twice daily as needed for Pain September 22, 2018 12:00am October 20, 2018 10:53am azithromycin 250 mg oral tablet (7 sources) Macrolide Antimicrobial Start: 04-02-2024 End: 04-12-2024 Azithromycin 250 mg tablet Discontinued 0 PO .COMPLEX April 02, 2024 12:00am April 12, 2024 4:26pm For 250 mg dose pack: take 500 mg today (day 1), then 250 mg for 4 days (days 2-5) PO Start: 04-02-2024 Azithromycin A ctive 0 PO .COMPLEX April 02, 2024 12:00am [...] 3.125 mg by mouth once daily Carvedilol 6.25 mg tablet Discontinued 3.125 MG PO Daily December 12, 2023 2:03pm December 20, 2023 11:27am Start: 09-06-2023 End: 12-20-2023 take 3.125 mg [...] 03/12/2019 Active Start: 09-22-2018 End: 09-06-2023 take 1 tablet by mouth twice daily Carvedilol 6.25 mg tablet Discontinued 6.25 MG PO Twice daily September 22, 2018 12:00am September 06, 2023 10:49am Dexamethasone (17 sources) Corticosteroid Start: 09-17-2015 DEXAMETHASONE Sep, 2 mL doxycycline hyclate 100 mg oral tablet (8 sources) Tetracycline-class Drug Start: 12-12-2023 End: 12-20-2023 take 1 tablet by mouth once daily Doxycycline Hyclate 100 mg tablet Discontinued 100 MG PO Daily December 12, 2023 12:00am December 20, 2023 11:27am ferrous sulfate 325 mg oral tablet (20 sources) Start: 08-13-2024 End: 11-12-2024 take 1 tablet by mouth once daily Ferrous Sulfate (Ferosul) 325 mg (65 mg iron) tablet Discontinued 325 MG PO Daily August 13, 2024 2:29pm November 12, 2024 1:29pm Start: 04-06-2024 take 1 tablet by sara once daily ferrous sulfate 325 mg Tab 325 mg = 1 tab(s), Oral, Daily, # 30 tab(s), Refills(s) 0, Pharmacy: [facility], 157.4, cm, 04/04/24 0:33:00 EDT, Height/Length Dosing, 86.1, kg, 04/04/24 0:33:00 EDT, Weight Dosing Start Date: 04/06/24 Status: Ordered Start: 02-08-2024 End: 08-13-2024 take 1 tablet by mouth once daily Ferrous Sulfate (Ferosul) 325 mg (65 mg iron) tablet Discontinued 0 .ROUTE .COMPLEX February 08, 2024 1:25pm August 13, 2024 2:33pm TAKE ONE TABLET BY MOUTH DAILY Start: 08-04-2023 End: 02-08-2024 take 1 tablet by mouth three times weekly Ferrous Sulfate 325 mg (65 mg iron) tablet,delayed release (DR/EC) Discontinued 325 MG PO 3 Times a week August 04, 2023 1:00am February 08, 2024 1:25pm Start: 11-11-2022 take 1 tablet by sara three times weekly take 1 tablet by sara three times weekly Ferrous Sulfate 325 (65 Fe) MG 1 tablet Orally three times a week Active take 1 tablet by sara three times weekly Ferrous Sulfate 325 (65 Fe) MG 1 tablet Orally three times a week Active furosemide 40 mg oral tablet (20 sources) Loop Diuretic Start: 11-11-2022 End: 11-30-2024 take 1 tablet by mouth once daily Furosemide 40 mg tablet Discontinued 40 MG PO Daily 90 August 17, 2023 2:36pm August 24, 2024 1:15pm Start: 03-12-2019 [facility] 2 tablets [facility] once daily furosemide (LASIX) 20 mg tablet Take 2 tablets (40 mg total) by mouth daily. 03/12/2019 Active Start: 09-22-2018 End: 08-04-2023 take 1 tablet by mouth twice daily Furosemide 20 mg tablet Discontinued 20 MG PO Twice daily September 22, 2018 12:00am August 04, 2023 9:22am Humalog (5 sources) Insulin Analog Start: 04-06-2024 End: 04-06-2024 HumaLOG Sliding Scale 0-10 U nit(s), Injection-Insulin, SubCutaneous, Start date 04/06/24 4:30:00 PM [...] Refills(s) 0 Start Date: 12/03/22 Status: Ordered magnesium oxide 400 mg oral capsule (20 sources) Start: 08-04-2023 End: 08-05-2023 take 1 capsule by mouth four times weekly Magnesium Oxide 400 mg magnesium capsule Discontinued 400 MG PO .COMPLEX August 04, 2023 1:00am August 05, 2023 2:42pm four times a week Start: 07-31-2023 take 1 capsule by [facility] once daily Start: 07-31-2023 End: 08-10-2023 take 1 tablet [...] Date: 11/11/22 Stop Date: 11/18/22 Status: Ordered methylPREDNISolone (17 sources) Corticosteroid Start: 02-02-2018 Depo-Medrol 40 mg Jan, 1 mL polyethylene glycol 3350 48542 mg powder for oral solution (20 sources) Osmotic Laxative Start: 11-13-2022 End: 08-13-2024 Polyethylene Glycol 3350 (Miralax) 17 gram/dose powder Discontinued 17 GM PO Daily August 04, 2023 1:00am August 13, 2024 2:33pm MiraLax 17 GM/SC OOP 1 scoop mixed with 8 ounces of fluid Orally Once a day Active sulfamethoxazole 800 mg / trimethoprim 160 mg oral tablet (6 sources) Dihydrofolate Reductase Inhibitor Antibacterial, Sulfonamide Antimicrobial Start: 01-23-2024 End: 04-12-2024 take 1 tablet by mouth twice daily Sulfamethoxazole-Trimethoprim 800-160 mg tablet Discontinued 1 TAB PO Twice daily January 23, 2024 12:00am April 12, 2024 4:28pm Problems Active Problems Problem Classification Problem Date Documented Date Episodic/Chronic Abdominal pain (20 sources) Abdominal pain; Translations: [Unspecified abdominal pain] Onset: 7 Episodic Acute and unspecified renal failure (2 sources) Renal failure syndrome; Translations: [Unspecified kidney failure] [...] Chronic Chronic obstructive pulmonary disease and bronchiectasis (6 sources) Bronchitis; Translations: [Bronchitis, not specified as acute or chronic] 04-10-2024 Episodic Congestive heart failure; nonhypertensive (5 sources) Heart failure, unspecified; Translations: [Chronic diastolic heart failure] Onset: 9 03-15-2019 Chronic Coronary atherosclerosis and other heart disease (13 sources) Atherosclerotic heart disease of [place] coronary artery without angina pectoris; Translations: [Coronary [...] dementia, and amnestic and other cognitive disorders (14 sources) Dementia; Translations: [Unspecified dementia without behavioral [...] Onset: 2 Chronic Disorders of lipid metabolism (14 sources) Mixed hyperlipidemia; Translations: [Hyperlipidemia] Onset: 4 [...] [Gout, unspecified] Onset: 2 Resolved: 2 Chronic Headache; including migraine (4 sources) Headache; Translations: [Headache] 04-12-2024 Episodic Heart valve disorders (6 sources) Nonrheumatic tricuspid (valve) insufficiency; Translations: [Tricuspid [...] surgery] Chronic Other aftercare (1 source) 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; Translations: [OTH USP CURRENT DRUG THERAPY] Onset: 2 Episodic Other aftercare (1 source) 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; Translations: [USP USE ORAL HYPOGLYCEMIC DX] Onset: 2 Episodic Other aftercare (1 source) 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 insulin; Translations: [USP CURRENT USE OF INSULIN] Onset: 2 Episodic Other aftercare (3 sources) Long-term current use of drug therapy; Translations: [Other skilled nursing (current) drug therapy] Onset: 4 Episodic Other [...] Onset: 4 Episodic Other connective tissue disease (5 sources) Fibromyalgia; Translations: [Myalgia and myositis, unspecified] [...] in right foot] Episodic Other diseases of bladder and urethra (2 sources) Overactive bladder; Translations: [Overactive bladder] 08-21-2024 Chronic Other diseases of kidney and ureters (20 sources) Secondary hyperparathyroidism; Translations: [Secondary hyperparathyroidism of renal origin] 08-04-2023 Chronic Other diseases of kidney and ureters (8 sources) Secondary hyperparathyroidism of renal origin; Translations: [...] Other hereditary and degenerative nervous system conditions (8 sources) Restless legs; Translations: [Restless legs syndrome] [...] right foot] Episodic Other non-traumatic joint disorders (10 sources) Pain in right shoulder; Translations: [Right shoulder pain] Onset: 3 09-06-2023 Episodic Other nutritional; endocrine; and metabolic disorders (20 sources) Hypomagnesemia; Translations: [Hypomagnesemia] 12-20-2023 Chronic Other nutritional; endocrine; and metabolic disorders (9 sources) Hypomagnesemia; Translations: [Disorders of magnesium metabolism] [...] Chronic Other nutritional; endocrine; and metabolic disorders (6 sources) Obesity; Translations: [Obesity, unspecified] 11-12-2024 Chronic Other nutritional; endocrine; and metabolic disorders [...] caused by tuberculosis or sexually transmitted disease) (2 sources) Primary cardiomyopathy; Translations: [Cardiomyopathy, unspecified] Onset: 2 03-15-2019 Chronic Pneumonia (except that caused by tuberculosis or sexually transmitted disease) (10 sources) Pneumonia; Translations: [Pneumonia, unspecified organism] Onset: [...] Translations: [Localized edema] Episodic Residual codes; unclassified (8 sources) Insomnia; Translations: [Insomnia, unspecified] 08-22-2023 Episodic Residual codes; unclassified (2 sources) Insomnia, unspecified; Translations: [Insomnia, unspecified] 12-12-2023 Episodic Respiratory failure; insufficiency; arrest (adult) (1 source) Acute respiratory failure; Translations: [Acute respiratory failure with hypoxia] Onset: 4 Episodic Rheumatoid arthritis and related disease (4 sources) Rheumatoid arthritis; Translations: [Rheumatoid arthritis, unspecified] 11-12-2024 Chronic Septicemia (except in labor) (1 source) Sepsis; Translations: [Sepsis, unspecified organism] Onset: 4 Episodic Skin and subcutaneous tissue infections (12 sources) Cellulitis of buttock; Translations: [Cellulitis of buttock] 12-19-2023 Episodic Spondylosis; intervertebral disc disorders; other back problems (20 sources) Degeneration of cervical intervertebral disc; Translations: [Other cervical disc degeneration, unspecified cervical region] Onset: 2 Chronic Thyroid disorders (15 sources) Hypothyroidism, unspecified; Translations: [Hypothyroidism] Onset: 2 01-31-2016 Chronic Unclassified (4 sources) CHRN KIDNEY DISEASE STG 3 UNSP; Translations: [CHRN KIDNEY DISEASE STG 3 UNSP] Onset: 2 Unclassified (1 source) M79.7 - Fibromyalgia,M06.9 - Rheumatoid arthritis, unspecified,M19.90 - Unspecified osteoarthritis, unspecified site Urinary tract infections (15 sources) Urinary tract infection, site not specified; [...] Other non-traumatic joint disorders (4 sources) Pain of left wrist; Translations: [Pain in left wrist] Onset: 3 Episodic Residual codes; unclassified (1 source) Family history of malignant neoplasm of gastrointestinal tract; Translations: [Family history of malignant neoplasm of digestive organs] Episodic Residual codes; unclassified (2 sources) Edema; Translations: [Edema, unspecified] Onset: 9 03-15-2019 Episodic Spondylosis; intervertebral disc disorders; other back problems (20 sources) Low back pain; Translations: [Low back pain] Onset: 2 Episodic Sprains and strains (1 source) Strain [...] Test Name Value Interpretation Reference Range Facility Alanine aminotransferase [En zymatic activity/volume] in Serum or PlasmaOrdered By: Jaden Kaur on 01-29-2025 ALT [Catalytic activity/Vol] 13 U/L Normal 7-52 [facility] Comment on above: Performed By: #### E SR, CBC, TSH3, CK, T4F, CRP, CMP #### [address] #### ALDOLASE #### [facility] , Albumin [Mass/volume] in Ser um or Plasma by Bromocresol green (BCG) dye binding methoOrdered By: Jaden Kaur on 01-29-2025 Albumin BCG dye [Mass/Vol] 4.4 g/dL 3.5-5.7 [facility] Aldolaseon 01-29-2025 Aldolase 4.3 U/L Normal 3.3-10.3 [facility] Comment on above: Result Comment: Perf ormed at: - [facility] [address] [id number] Assistant Branch Manager: Jerry Joseph PhD, Phone: [phone] PERFORMED BY: [place] [address] PATHOLOGIST LABORATORY ASSISTANT SOLOMON HWANG M.D. Performed By: #### E SR, CBC, TSH3, CK, T4F, CRP, CMP #### [facility] [address] [place] [address] #### ALDOLASE #### [facility] , Alkaline phosphatase [Enzyma tic activity/volume] in Serum or PlasmaOrdered By: Jaden Kaur on 01-29-2025 ALP [Catalytic activity/Vol] 99 U/L Normal 34-104 [facility] Comment on above: Performed By: #### E SR, CBC, TSH3, CK, T4F, CRP, CMP #### [facility] [address] [place] [address] #### ALDOLASE #### [facility] , Aspartate aminotransferase [ Enzymatic activity/volume] in Serum or PlasmaOrdered By: Jaden Kaur on 01-29-2025 AST [Catalytic activity/Vol] 18 U/L Normal 13-39 [facility] Comment on above: Performed By: #### E SR, CBC, TSH3, CK, T4F, CRP, CMP #### [facility] [address] [place] [address] #### ALDOLASE #### [facility] , Basophils [#/volume] in Bloo d by Automated countOrdered By: Jaden Kaur on 01-29-2025 Basophils (Bld) [#/Vol] 0.0 10*3/uL Normal 0.0-0.2 [facility] Comment on above: Performed By: #### E SR, CBC, TSH3, CK, T4F, CRP, CMP #### [facility] [address] [place] [address] [place] #### ALDOLASE #### [facility] , Basophils/100 leukocytes in Blood by Automated countOrdered By: Jaden Kaur on 01-29-2025 Basophils/100 WBC (Bld) 0.6 % Normal . [facility] Comment on above: Performed By: #### E SR, CBC, TSH3, CK, T4F, CRP, CMP #### [facility] [address] [place] [address] [place] #### ALDOLASE #### [facility] , Bilirubin.total [Mass/volume ] in Serum or PlasmaOrdered By: Jaden Kaur on 01-29-2025 Bilirubin [Mass/Vol] 0.5 mg/dL Normal 0.3-1.0 [facility] Comment on above: Performed By: #### E SR, CBC, TSH3, CK, T4F, CRP, CMP #### [facility] [address] [place] [address] [place] #### ALDOLASE #### [facility] , C reactive protein [Mass/vol ume] in Serum or PlasmaOrdered By: Jaden Kaur on 01-29-2025 CRP [Mass/Vol] 1.1 mg/dL High 0.0-0.5 [facility] C-Reactive Proteinon 025 C-Reactive Protein 1.1 mg/dL High 0.0-0.5 [facility] Comment on above: Performed By: #### E SR, CBC, TSH3, CK, T4F, CRP, CMP #### [facility] [address] [place] [address] [place] #### ALDOLASE #### [facility] , Calcium [Mass/volume] in Ser um or PlasmaOrdered By: Jaden Kaur on 01-29-2025 Calcium [Mass/Vol] 9.6 mg/dL Normal 8.6-10.[address] [facility] Comment on above: Performed By: #### E SR, CBC, TSH3, CK, T4F, CRP, CMP #### [facility] [address] [place] [address] [place] #### ALDOLASE #### [facility] , Carbon dioxide, total [Moles /volume] in Serum or PlasmaOrdered By: Jaden Kaur on 01-29-2025 CO2 [Moles/Vol] 34.1 mmol/L High 21.0-31.0 [facility] Comment on above: Performed By: #### E SR, CBC, TSH3, CK, T4F, CRP, CMP #### [facility] [address] [place] [address] [place] #### ALDOLASE #### [facility] , Chloride [Moles/volume] in S domenic or PlasmaOrdered By: Jaden Kaur on 01-29-2025 Chloride [Moles/Vol] 99 mmol/L Normal 98-107 [facility] Comment on above: Performed By: #### E SR, CBC, TSH3, CK, T4F, CRP, CMP #### [address] #### ALDOLASE #### [facility] , Complete Blood Count Auto Di ffon 01-29-2025 Mean Corpuscular HGB Conc 33.1 g/dL Normal 32.0-35.0 [facility] Comment on above: Performed By: #### E SR, CBC, TSH3, CK, T4F, CRP, CMP #### [facility] [address] [place] [address] #### ALDOLASE #### [facility] , NRBC% 0.2 /100{WBC} Normal 0-0.5 [facility] Comment on above: Performed By: #### E SR, CBC, TSH3, CK, T4F, CRP, CMP #### [place] [address] [place] #### ALDOLASE #### [facility] , White Blood Count 6.4 [CFU]/mL Normal 3.8-11.6 [facility] Comment on above: Performed By: #### E SR, CBC, TSH3, CK, T4F, CRP, CMP #### [facility] [address] [place] [address] [place] #### ALDOLASE #### [facility] , Comprehensive Metabolic Pane annie 01-29-2025 Albumin [Mass/Vol] 4.4 g/dL Normal 3.5-5.7 [facility] Comment on above: Performed By: #### E SR, CBC, TSH3, CK, T4F, CRP, CMP #### [facility] [address] [place] [address] #### ALDOLASE #### [facility] , GFR/1.73 sq M.predicted MDRD (S/P/Bld) [Vol rate/Area] 32.401 mL/min/{1.73_m2} Normal [facility] Comment on above: Performed By: #### E SR, CBC, TSH3, CK, T4F, CRP, CMP #### [address] #### ALDOLASE #### [facility] , Creatine kinase [Enzymatic a ctivity/volume] in Serum or PlasmaOrdered By: Jaden Kaur on 01-29-2025 CK [Catalytic activity/Vol] 52 U/L Normal 30-223 [facility] Comment on above: Result Comment: PERF ORMED BY: [place] [address] PATHOLOGIST LABORATORY ASSISTANT SOLOMON HWANG M.D. Performed By: #### E SR, CBC, TSH3, CK, T4F, CRP, CMP #### [address] #### ALDOLASE #### [facility] , Creatinine [Mass/volume] in Serum or PlasmaOrdered By: Jaden Kaur on 01-29-2025 Creatinine [Mass/Vol] 1.60 mg/dL High 0.60-1.20 [facility] Comment on above: Performed By: #### E SR, CBC, TSH3, CK, T4F, CRP, CMP #### [facility] [address] [place] [address] [place] #### ALDOLASE #### [facility] , Eosinophils [#/volume] in Bl ood by Automated countOrdered By: Jaden Kaur on 01-29-2025 Eosinophils (Bld) [#/Vol] 0.2 10*3/uL Normal 0.0-0.45 [facility] Comment on above: Performed By: #### E SR, CBC, TSH3, CK, T4F, CRP, CMP #### [address] #### ALDOLASE #### [facility] , Eosinophils/100 leukocytes i n Blood by Automated countOrdered By: Jaden Kaur on 01-29-2025 Eosinophils/100 WBC (Bld) 2.5 % Normal . [facility] Comment on above: Performed By: #### E SR, CBC, TSH3, CK, T4F, CRP, CMP #### [facility] [address] [place] [address] #### ALDOLASE #### [facility] , Erythrocyte Sedimentation Ra joseph 01-29-2025 ESR (Bld) [Velocity] 49 mm/h High 0-29 [facility] Comment on above: Result Comment: PERF ORMED BY: [place] [address] PATHOLOGIST LABORATORY ASSISTANT SOLOMON HWANG M.D. Performed By: #### E SR, CBC, TSH3, CK, T4F, CRP, CMP #### [address] #### ALDOLASE #### [facility] , Erythrocyte distribution wid th [Ratio] by Automated countOrdered By: Jaden Kaur on 01-29-2025 Erythrocyte distribution width (RBC) [Ratio] 14.7 % Normal 11.9-15.3 [facility] Comment on above: Performed By: #### E SR, CBC, TSH3, CK, T4F, CRP, CMP #### [place] [address] [place] #### ALDOLASE #### [facility] , Erythrocyte sedimentation ra te by Photometric methodOrdered By: Jaden Kaur on 01-29-2025 ESR Photometric method (Bld) [Velocity] 49 mm/hr High 0-29 [facility] Erythrocytes [#/volume] in B lood by Automated countOrdered By: Jaden Kaur on 01-29-2025 RBC (Bld) [#/Vol] 4.05 10*6/uL Normal 3.60-5.00 [facility] Comment on above: Performed By: #### E SR, CBC, TSH3, CK, T4F, CRP, CMP #### [facility] [address] [place] [address] [place] #### ALDOLASE #### [facility] , Glomerular filtration rate [ Volume Rate/Area] in Serum, Plasma or Blood by CreatinineOrdered By: Jaden Kaur on 01-29-2025 Glomerular filtration rate [Volume Rate/Area] in Serum, Plasma or Blood by Creatinine 32.401 mL/Min [facility] Glucose [Mass/volume] in Ser um or PlasmaOrdered By: Jaden Kaur on 01-29-2025 Glucose [Mass/Vol] 156 mg/dL High 70-[address] [facility] Comment on above: ADA recommended refe rence rangeRandom Glucose Reference Range is dependent on time and content of last meal. Glucose of more than 200 mg/dL in a nonstressed, ambulatory subject supports the diagnosis of Diabetes Mellitus. Result Comment: [place] om Glucose Reference Range is dependent on time and content of last meal. Glucose of more than 200 mg/dL in a nonstressed, ambulatory subject supports the diagnosis of Diabetes Mellitus. ADA recommended reference range Performed By: #### E SR, CBC, TSH3, CK, T4F, CRP, CMP #### [facility] [address] [place] [address] [place] #### ALDOLASE #### [facility] , Hematocrit [Volume Fraction] of Blood by Automated countOrdered By: Jaden Kaur on 01-29-2025 Hematocrit (Bld) [Volume fraction] 36.2 % Normal 34.0-46.4 [facility] Comment on above: Performed By: #### E SR, CBC, TSH3, CK, T4F, CRP, CMP #### [facility] [address] [place] [address] [place] #### ALDOLASE #### [facility] , Hemoglobin [Mass/volume] in BloodOrdered By: Jaden Mccrackenrow on 01-29-2025 Hemoglobin (Bld) [Mass/Vol] 12.0 g/dL Normal 11.8-15.4 [facility] Comment on above: Performed By: #### E SR, CBC, TSH3, CK, T4F, CRP, CMP #### [address] #### ALDOLASE #### [facility] , Leukocytes [#/volume] correc olamide for nucleated erythrocytes in Blood by Automated counOrdered By: Jaden Mccrackenrow on 01-29-2025 WBC corrected for nucl RBC Auto (Bld) [#/Vol] 6.4 10*3/uL 3.8-11.6 [facility] Leukocytes [#/volume] in Blo od by Automated countOrdered By: Jaden Mccrackenrow on 01-29-2025 WBC (Bld) [#/Vol] 6.4 10*3/uL Normal 3.8-11.[address] [facility] Comment on above: Performed By: #### E SR, CBC, TSH3, CK, T4F, CRP, CMP #### [address] #### ALDOLASE #### [facility] , Lymphocytes [#/volume] in Bl ood by Automated countOrdered By: Jadenrox Kaur on 01-29-2025 Lymphocytes (Bld) [#/Vol] 1.7 10*3/uL Normal 1.00-4.8 [facility] Comment on above: Performed By: #### E SR, CBC, TSH3, CK, T4F, CRP, CMP #### [facility] [address] [place] [address] [place] #### ALDOLASE #### [facility] , Lymphocytes/100 leukocytes i n Blood by Automated countOrdered By: Jaden Kaur on 01-29-2025 Lymphocytes/100 WBC (Bld) 26.3 % Normal . [facility] Comment on above: Performed By: #### E SR, CBC, TSH3, CK, T4F, CRP, CMP #### [facility] [address] [place] [address] [place] #### ALDOLASE #### [facility] , MCH [Entitic mass] by Automa olamide countOrdered By: Jaden Mccrackenrow on 01-29-2025 MCH (RBC) [Entitic mass] 29.7 pg Normal 24.7-34.3 [facility] Comment on above: Performed By: #### E SR, CBC, TSH3, CK, T4F, CRP, CMP #### [address] #### ALDOLASE #### [facility] , MCHC Auto (RBC) [Mass/Vol]Or dered By: Jaden Kaur on 01-29-2025 MCHC (RBC) [Mass/Vol] 33.1 g/dL 32.0-35.0 [facility] MCV [Entitic volume] by Auto mated countOrdered By: Jaden Vincent on 01-29-2025 MCV (RBC) [Entitic vol] 89.5 fL Normal 80-100 [facility] Comment on above: Performed By: #### E SR, CBC, TSH3, CK, T4F, CRP, CMP #### [place] [address] [place] #### ALDOLASE #### [facility] , Monocytes [#/volume] in Bloo d by Automated countOrdered By: Jaden Kaur on 01-29-2025 Monocytes (Bld) [#/Vol] 0.5 10*3/uL Normal 0.0-0.8 [facility] Comment on above: Performed By: #### E SR, CBC, TSH3, CK, T4F, CRP, CMP #### [place] [address] [place] #### ALDOLASE #### [facility] , Monocytes/100 leukocytes in Blood by Automated countOrdered By: Jaden Kaur on 01-29-2025 Monocytes/100 WBC (Bld) 8.0 % Normal . [facility] Comment on above: Performed By: #### E SR, CBC, TSH3, CK, T4F, CRP, CMP #### [place] [address] [place] #### ALDOLASE #### [facility] , Neutrophils [#/volume] in Bl ood by Automated countOrdered By: Jaden Kaur on 01-29-2025 Neutrophils (Bld) [#/Vol] 4.0 10*3/uL Normal 1.8-7.7 [facility] Comment on above: Performed By: #### E SR, CBC, TSH3, CK, T4F, CRP, CMP #### [address] #### ALDOLASE #### [facility] , Neutrophils/100 leukocytes i n Blood by Automated countOrdered By: Jaden Kaur on 01-29-2025 Neutrophils/100 WBC (Bld) 62.6 % Normal . [facility] Comment on above: Performed By: #### E SR, CBC, TSH3, CK, T4F, CRP, CMP #### [place] [address] [place] #### ALDOLASE #### [facility] , No Panel InformationOrdered By: Jaden Kaur on 01-29-2025 Pharmacy Creatinine Clearance (Chem N/A [facility] Nucleated erythrocytes [Pres ence] in Blood by Automated countOrdered By: Jaden Kaur on 01-29-2025 Nucleated RBC Auto Ql (Bld) 0.2 /100{WBC} 0-0.5 [facility] Platelet mean volume [Entiti c volume] in Blood by Automated countOrdered By: Jaden Kaur on 01-29-2025 Platelet mean volume (Bld) [Entitic vol] 7.4 fL Normal 6.3-10.7 [facility] Comment on above: Performed By: #### E SR, CBC, TSH3, CK, T4F, CRP, CMP #### [facility] [address] [place] [address] [place] #### ALDOLASE #### [facility] , Platelets [#/volume] in Bloo d by Automated countOrdered By: Jaden Kaur on 01-29-2025 Platelets (Bld) [#/Vol] 327 10*3/uL Normal 150-450 [facility] Comment on above: Performed By: #### E SR, CBC, TSH3, CK, T4F, CRP, CMP #### [facility] [address] [place] [address] [place] #### ALDOLASE #### [facility] , Potassium [Moles/volume] in Serum or PlasmaOrdered By: Jaden Kaur on 01-29-2025 Potassium [Moles/Vol] 4.4 mmol/L Normal 3.5-5.1 [facility] Comment on above: Performed By: #### E SR, CBC, TSH3, CK, T4F, CRP, CMP #### [facility] [address] [place] [address] [place] #### ALDOLASE #### [facility] , Protein [Mass/volume] in Ser um or PlasmaOrdered By: Jaden Kaur on 01-29-2025 Protein [Mass/Vol] 7.0 g/dL Normal 6.4-8.[address] [facility] Comment on above: Performed By: #### E SR, CBC, TSH3, CK, T4F, CRP, CMP #### [facility] [address] [place] [address] [place] #### ALDOLASE #### [facility] , Serum globulin measurement b y calculation (mass/volume)Ordered By: Jaden Kaur on 01-29-2025 Globulin (S) [Mass/Vol] 2.6 g/dL Normal [facility] Comment on above: Performed By: #### E SR, CBC, TSH3, CK, T4F, CRP, CMP #### [facility] [address] [place] [address] #### ALDOLASE #### [facility] , Serum or plasma albumin/glob ulin mass ratioOrdered By: Jaden Kaur on 01-29-2025 Albumin/Globulin [Mass ratio] 1.7 {ratio} Normal [facility] Comment on above: Performed By: #### E SR, CBC, TSH3, CK, T4F, CRP, CMP #### [facility] [address] [place] [address] #### ALDOLASE #### [facility] , Serum or plasma anion gap de terminationOrdered By: Jaden Kaur on 01-29-2025 Anion gap [Moles/Vol] 11.3 mmol/L Normal 6.0-15.0 [facility] Comment on above: Performed By: #### E SR, CBC, TSH3, CK, T4F, CRP, CMP #### [facility] [address] [place] [address] #### ALDOLASE #### [facility] , Sodium [Moles/volume] in Ser um or PlasmaOrdered By: Jaden Kaur on 01-29-2025 Sodium [Moles/Vol] 140 mmol/L Normal 136-[address] [facility] Comment on above: Performed By: #### E SR, CBC, TSH3, CK, T4F, CRP, CMP #### [facility] [address] [place] [address] [place] #### ALDOLASE #### [facility] , Thyrotropin [Units/volume] i n Serum or PlasmaOrdered By: Jaden Kaur on 01-29-2025 TSH Qn 4.62 m[IU]/L Normal 0.45-5.33 [facility] Comment on above: Result Comment: PERF ORMED BY: [place] [address] PATHOLOGIST LABORATORY ASSISTANT SOLOMON HWANG M.D. Performed By: #### E SR, CBC, TSH3, CK, T4F, CRP, CMP #### [facility] [address] [place] [address] [place] #### ALDOLASE #### [facility] , Thyroxine (T4) free [Mass/vo lume] in Serum or PlasmaOrdered By: Jaden Mccrackenrow on 01-29-2025 Free T4 [Mass/Vol] 1.22 ng/dL High 0.61-1.[address] [facility] Comment on above: Performed By: #### E SR, CBC, TSH3, CK, T4F, CRP, CMP #### [facility] [address] [place] [address] [place] #### ALDOLASE #### [facility] , Urea nitrogen [Mass/volume] in Serum or PlasmaOrdered By: Jaden Kaur on 01-29-2025 Urea nitrogen [Mass/Vol] 25 mg/dL Normal 7-25 [facility] Comment on above: Performed By: #### E SR, CBC, TSH3, CK, T4F, CRP, CMP #### [facility] [address] [place] [address] [place] #### ALDOLASE #### [facility] , Office Visiton 11-20-2024 Follow-up visit [id number] YeseniaNadia M 1945 F Date Provider Department [facility] Family History Family Status - Relation Status Age at Mother Father Level of Service:19787 [place] OFFICE/OUTPATIENT ESTABLISHED LOW MDM 20 MIN Normal [facility] HbA1c HPLC (Bld) [Mass fract ion]on 11-12-2024 HbA1c (Bld) [Mass fraction] 6.6 % [facility] Erythrocyte distribution wid th Auto (RBC) [Ratio]on 08-08-2024 Erythrocyte distribution width (RBC) [Ratio] Erythrocyte distribution width [Ratio] by Automated count 11.0-15.0 [facility] Estimated glomerular filtrat ion rate (GFR) non- Americanon 08-08-2024 GFR/1.73 sq M.predicted among non-blacks MDRD (S/P/Bld) [Vol rate/Area] Estimated glomerular filtration rate (GFR) non- Low >=60 mL/min/1.73 m 2 [facility] Hematocrit Auto (Bld) [Volum e fraction]on 08-08-2024 Hematocrit (Bld) [Volume fraction] Hematocrit [Volume Fraction] of Blood by Automated count 36.0-48.0 [facility] Hemoglobin [Mass/volume] in Bloodon 08-08-2024 Hemoglobin (Bld) [Mass/Vol] Hemoglobin [Mass/volume] in Blood Low 12.0-16.0 [facility] Iron binding capacity [Mass/ volume] in Serum or Plasmaon 08-08-2024 Iron binding capacity [Mass/Vol] Iron binding capacity [Mass/volume] in Serum or Plasma 250.0-450.0 [facility] Iron saturation [Mass Fracti on] in Serum or Plasmaon 08-08-2024 Iron saturation [Mass fraction] Iron saturation [Mass Fraction] in Serum or Plasma [facility] Laboratory - Chemistry and C hemistry - challengeon 08-08-2024 Albumin [Mass/Vol] 3.3 g/dL Low 3.4-5.[address] [facility] Calcium [Mass/Vol] 9.7 mg/dL 8.5-10.[address] [facility] Chloride [Moles/Vol] 101 mmol/L 98-107 [facility] CO2 [Moles/Vol] 32.7 mmol/L High 21.0-32.0 [facility] Creatinine [Mass/Vol] 1.68 mg/dL High 0.55-1.02 [facility] Ferritin [Mass/Vol] 88.0 ng/mL 8.0-252.0 [facility] GFR/1.73 sq M.predicted MDRD (S/P/Bld) [Vol rate/Area] 36 mL/min/{1.73_m2} Low >=60 mL/min/1.73 m 2 [facility] Glucose [Mass/Vol] 106 mg/dL 74-[address] [facility] Iron [Mass/Vol] 30.0 ug/dL Low 50.0-170.0 [facility] Magnesium [Mass/Vol] 1.7 mg/dL Low 1.8-2.4 [facility] Potassium [Moles/Vol] 4.0 mmol/L 3.5-5.1 [facility] Sodium [Moles/Vol] 142 mmol/L 136-[address] [facility] Urate [Mass/Vol] 8.0 mg/dL High 2.6-6.0 [facility] Urea nitrogen [Mass/Vol] 20.0 mg/dL High 7.0-18.0 [facility] Urea nitrogen/Creatinine [Mass ratio] 11.9 mg/mg [facility] Laboratory - Urinalysison Protein (U) [Mass/Vol] 15.5 mg/dL High <=11.9 [facility] Leukocytes [#/volume] correc olamide for nucleated erythrocytes in Blood by Automated counon 08-08-2024 WBC corrected for nucl RBC Auto (Bld) [#/Vol] Leukocytes [#/volume] corrected for nucleated erythrocytes in Blood by Automated coun 4.0-11.0 [facility] MCH Auto (RBC) [Entitic mass ]on 08-08-2024 MCH (RBC) [Entitic mass] MCH [Entitic ma ss] by Automated count 26.7-34.0 [facility] MCHC Auto (RBC) [Mass/Vol]on 08-08-2024 MCHC (RBC) [Mass/Vol] MCHC [Mass/volume] by Automated count 29.9-35.2 [facility] MCV Auto (RBC) [Entitic vol] on 08-08-2024 MCV (RBC) [Entitic vol] MCV [Entitic vol ume] by Automated count 81.0-99.0 [facility] No Panel Informationon 08-08 25-Hydroxy Vitamin D Total 73.5 ng/mL [facility] Comment on above: <20 ng/mL Vit D defi cient20-<30 ng/mL Vit D [id number] ng/mL Vit D sufficient>100 ng/mL Potential Toxicity Parathyroid Hormone (Intact) 29 pg/mL 15-65 [facility] Comment on above: Performed at: [address], [place] [id number] Director: Jerry Joseph PhD, Phone: [phone] Phosphorus Level 2.7 mg/dL 2.6-4.7 [facility] Urine Random Creatinine 65.67 mg/dL 20.0 0-300.0 0 [facility] Platelet mean volume Auto (B ld) [Entitic vol]on 08-08-2024 Platelet mean volume (Bld) [Entitic vol] Platelet mean volume [Entitic volume] in Blood by Automated count Low 9.5-13.5 [facility] Platelets Auto (Bld) [#/Vol] on 08-08-2024 Platelets (Bld) [#/Vol] Platelets [#/vol ume] in Blood by Automated count 150-450 [facility] RBC Auto (Bld) [#/Vol]on RBC (Bld) [#/Vol] Erythrocytes [#/volume] in Blood by Automated count Low 4.20-5.40 [facility] Serum or plasma anion gap de terminationon 08-08-2024 Anion gap [Moles/Vol] Serum or plasma anion gap determination [facility] Urine protein/creatinine rat ioon 08-08-2024 Protein/Creatinine (U) [Ratio] Urine protein/creatinine ratio [facility] Basophils Auto (Bld) [#/Vol] on 07-16-2024 Basophils (Bld) [#/Vol] Automated basoph il count 0.0-0.1 [facility] Basophils/100 WBC Auto (Bld) on 07-16-2024 Basophils/100 WBC (Bld) Automated basophil % 0. 2-2.0 [facility] Eosinophils/100 WBC Auto (Bl d)on 07-16-2024 Eosinophils/100 WBC (Bld) Automated eosinophil % Low 0.9-7.0 [facility] Erythrocyte distribution wid th Auto (RBC) [Ratio]on 07-16-2024 Erythrocyte distribution width (RBC) [Ratio] Erythrocyte distribution width [Ratio] by Automated count 11.0-15.0 [facility] Estimated glomerular filtrat ion rate (GFR) non- Americanon 07-16-2024 GFR/1.73 sq M.predicted among non-blacks MDRD (S/P/Bld) [Vol rate/Area] Estimated glomerular filtration rate (GFR) non- Low >=60 mL/min/1.73 m 2 [facility] Globulin Calc (S) [Mass/Vol] on 07-16-2024 Globulin (S) [Mass/Vol] Serum globulin measurement by calculation (mass/volume) [facility] Hematocrit Auto (Bld) [Volum e fraction]on 07-16-2024 Hematocrit (Bld) [Volume fraction] Hematocrit [Volume Fraction] of Blood by Automated count Low 36.0-48.0 [facility] Hemoglobin [Mass/volume] in Bloodon 07-16-2024 Hemoglobin (Bld) [Mass/Vol] Hemoglobin [Mass/volume] in Blood Low 12.0-16.0 [facility] Laboratory - Chemistry and C hemistry - challengeon 07-16-2024 Albumin [Mass/Vol] 2.9 g/dL Low 3.4-5.[address] [facility] ALP [Catalytic activity/Vol] 78 U/L 46-116 [facility] ALT [Catalytic activity/Vol] 15 U/L 14-59 [facility] AST [Catalytic activity/Vol] 37 U/L 15-37 [facility] Bilirubin [Mass/Vol] 0.3 mg/dL 0.2-1.0 [facility] Calcium [Mass/Vol] 9.1 mg/dL 8.5-10.[address] [facility] Chloride [Moles/Vol] 101 mmol/L 98-107 [facility] CO2 [Moles/Vol] 30.8 mmol/L 21.0-32.0 [facility] Creatinine [Mass/Vol] 1.53 mg/dL High 0.55-1.02 [facility] GFR/1.73 sq M.predicted MDRD (S/P/Bld) [Vol rate/Area] 40 mL/min/{1.73_m2} Low >=60 mL/min/1.73 m 2 [facility] Glucose [Mass/Vol] 224 mg/dL High 74-[address] [facility] Potassium [Moles/Vol] 4.5 mmol/L 3.5-5.1 [facility] Protein [Mass/Vol] 6.5 g/dL 6.4-8.[address] [facility] Sodium [Moles/Vol] 140 mmol/L 136-[address] [facility] Urea nitrogen [Mass/Vol] 22.0 mg/dL High 7.0-18.0 [facility] Urea nitrogen/Creatinine [Mass ratio] 14.4 mg/mg [facility] Laboratory - Hematology and Cell countson 07-16-2024 Immature granulocytes/100 WBC (Bld) 0.3 % 0.0-0.5 [facility] Leukocytes [#/volume] correc olamide for nucleated erythrocytes in Blood by Automated counon 07-16-2024 WBC corrected for nucl RBC Auto (Bld) [#/Vol] Leukocytes [#/volume] corrected for nucleated erythrocytes in Blood by Automated coun Low 4.0-11.0 [facility] Lymphocytes Auto (Bld) [#/Vo l]on 07-16-2024 Lymphocytes (Bld) [#/Vol] Lymphocytes [#/volume] in Blood by Automated count Low 1.2-3.8 [facility] Lymphocytes/100 WBC Auto (Bl d)on 07-16-2024 Lymphocytes/100 WBC (Bld) Lymphocytes/100 leukocytes in Blood by Automated count 20.5-60.0 [facility] MCH Auto (RBC) [Entitic mass ]on 07-16-2024 MCH (RBC) [Entitic mass] MCH [Entitic ma ss] by Automated count 26.7-34.0 [facility] MCHC Auto (RBC) [Mass/Vol]on 07-16-2024 MCHC (RBC) [Mass/Vol] MCHC [Mass/volume] by Automated count 29.9-35.2 [facility] MCV Auto (RBC) [Entitic vol] on 07-16-2024 MCV (RBC) [Entitic vol] MCV [Entitic vol ume] by Automated count 81.0-99.0 [facility] Monocytes Auto (Bld) [#/Vol] on 07-16-2024 Monocytes (Bld) [#/Vol] Automated blood monocyte count 0.3-0.8 [facility] Monocytes/100 WBC Auto (Bld) on 07-16-2024 Monocytes/100 WBC (Bld) Automated monocyte % 1. 7-12.0 [facility] Neutrophils Auto (Bld) [#/Vo l]on 07-16-2024 Neutrophils (Bld) [#/Vol] Neutrophils [#/volume] in Blood by Automated count 1.4-6.5 [facility] Neutrophils/100 WBC Auto (Bl d)on 07-16-2024 Neutrophils/100 WBC (Bld) Automated neutrophil % 43.0-75.0 [facility] No Panel Informationon 07-16 Eosinophils # (Auto) 0.0 10 3/uL 0.0-0.7 [facility] Immature Granulocyte # (Auto) 0.01 10 3/uL 0.00-0.03 [facility] Platelet mean volume Auto (B ld) [Entitic vol]on 07-16-2024 Platelet mean volume (Bld) [Entitic vol] Platelet mean volume [Entitic volume] in Blood by Automated count 9.5-13.5 [facility] Platelets Auto (Bld) [#/Vol] on 07-16-2024 Platelets (Bld) [#/Vol] Platelets [#/vol ume] in Blood by Automated count 150-450 [facility] RBC Auto (Bld) [#/Vol]on RBC (Bld) [#/Vol] Erythrocytes [#/volume] in Blood by Automated count Low 4.20-5.40 [facility] Serum or plasma albumin/glob ulin mass ratioon 07-16-2024 Albumin/Globulin [Mass ratio] Serum or plasma albumin/globulin mass ratio [facility] Serum or plasma anion gap de terminationon 07-16-2024 Anion gap [Moles/Vol] Serum or plasma anion gap determination [facility] Basophils Auto (Bld) [#/Vol] on 07-15-2024 Basophils (Bld) [#/Vol] Automated basoph il count 0.0-0.1 [facility] Basophils/100 WBC Auto (Bld) on 07-15-2024 Basophils/100 WBC (Bld) Automated basophil % 0. 2-2.0 [facility] Eosinophils/100 WBC Auto (Bl d)on 07-15-2024 Eosinophils/100 WBC (Bld) Automated eosinophil % 0.9-7.0 [facility] Erythrocyte distribution wid th Auto (RBC) [Ratio]on 07-15-2024 Erythrocyte distribution width (RBC) [Ratio] Erythrocyte distribution width [Ratio] by Automated count 11.0-15.0 [facility] Estimated glomerular filtrat ion rate (GFR) non- Americanon 07-15-2024 GFR/1.73 sq M.predicted among non-blacks MDRD (S/P/Bld) [Vol rate/Area] Estimated glomerular filtration rate (GFR) non- Low >=60 mL/min/1.73 m 2 [facility] Globulin Calc (S) [Mass/Vol] on 07-15-2024 Globulin (S) [Mass/Vol] Serum globulin measurement by calculation (mass/volume) [facility] Hematocrit Auto (Bld) [Volum e fraction]on 07-15-2024 Hematocrit (Bld) [Volume fraction] Hematocrit [Volume Fraction] of Blood by Automated count Low 36.0-48.0 [facility] Hemoglobin [Mass/volume] in Bloodon 07-15-2024 Hemoglobin (Bld) [Mass/Vol] Hemoglobin [Mass/volume] in Blood Low 12.0-16.0 [facility] Laboratory - Chemistry and C hemistry - challengeon 07-15-2024 Albumin [Mass/Vol] 2.8 g/dL Low 3.4-5.[address] [facility] ALP [Catalytic activity/Vol] 73 U/L 46-116 [facility] ALT [Catalytic activity/Vol] 15 U/L 14-59 [facility] AST [Catalytic activity/Vol] 35 U/L 15-37 [facility] Bilirubin [Mass/Vol] 0.3 mg/dL 0.2-1.0 [facility] Calcium [Mass/Vol] 8.5 mg/dL 8.5-10.[address] [facility] Chloride [Moles/Vol] 105 mmol/L 98-107 [facility] CO2 [Moles/Vol] 34.1 mmol/L High 21.0-32.0 [facility] Creatinine [Mass/Vol] 1.51 mg/dL High 0.55-1.02 [facility] GFR/1.73 sq M.predicted MDRD (S/P/Bld) [Vol rate/Area] 40 mL/min/{1.73_m2} Low >=60 mL/min/1.73 m 2 [facility] Glucose [Mass/Vol] 127 mg/dL High 74-[address] [facility] Magnesium [Mass/Vol] 1.8 mg/dL 1.8-2.4 [facility] Natriuretic peptide B (Bld) [Mass/Vol] 169.0 pg/mL <=1800.0 [facility] Potassium [Moles/Vol] 4.0 mmol/L 3.5-5.1 [facility] Protein [Mass/Vol] 6.0 g/dL Low 6.4-8.[address] [facility] Sodium [Moles/Vol] 143 mmol/L 136-[address] [facility] Urea nitrogen [Mass/Vol] 18.0 mg/dL 7.0-18.0 [facility] Urea nitrogen/Creatinine [Mass ratio] 11.9 mg/mg [facility] Laboratory - Hematology and Cell countson 07-15-2024 Immature granulocytes/100 WBC (Bld) 0.0 % 0.0-0.5 [facility] Leukocytes [#/volume] correc olamide for nucleated erythrocytes in Blood by Automated counon 07-15-2024 WBC corrected for nucl RBC Auto (Bld) [#/Vol] Leukocytes [#/volume] corrected for nucleated erythrocytes in Blood by Automated coun Low 4.0-11.0 [facility] Lymphocytes Auto (Bld) [#/Vo l]on 07-15-2024 Lymphocytes (Bld) [#/Vol] Lymphocytes [#/volume] in Blood by Automated count 1.2-3.8 [facility] Lymphocytes/100 WBC Auto (Bl d)on 07-15-2024 Lymphocytes/100 WBC (Bld) Lymphocytes/100 leukocytes in Blood by Automated count 20.5-60.0 [facility] MCH Auto (RBC) [Entitic mass ]on 07-15-2024 MCH (RBC) [Entitic mass] MCH [Entitic ma ss] by Automated count 26.7-34.0 [facility] MCHC Auto (RBC) [Mass/Vol]on 07-15-2024 MCHC (RBC) [Mass/Vol] MCHC [Mass/volume] by Automated count 29.9-35.2 [facility] MCV Auto (RBC) [Entitic vol] on 07-15-2024 MCV (RBC) [Entitic vol] MCV [Entitic vol ume] by Automated count 81.0-99.0 [facility] Monocytes Auto (Bld) [#/Vol] on 07-15-2024 Monocytes (Bld) [#/Vol] Automated blood monocyte count 0.3-0.8 [facility] Monocytes/100 WBC Auto (Bld) on 07-15-2024 Monocytes/100 WBC (Bld) Automated monocyte % 1. 7-12.0 [facility] Neutrophils Auto (Bld) [#/Vo l]on 07-15-2024 Neutrophils (Bld) [#/Vol] Neutrophils [#/volume] in Blood by Automated count Low 1.4-6.5 [facility] Neutrophils/100 WBC Auto (Bl d)on 07-15-2024 Neutrophils/100 WBC (Bld) Automated neutrophil % Low 43.0-75.0 [facility] No Panel Informationon 07-15 Eosinophils # (Auto) 0.1 10 3/uL 0.0-0.7 [facility] Immature Granulocyte # (Auto) 0.00 10 3/uL 0.00-0.03 [facility] Troponin I High Sensitivity 14.4 pg/mL 4.0-51.3 [facility] Comment on above: CUT-OFF POINTS HAVE BEEN ESTABLISHED BASED ON THE FOURTHUNIVERSAL DEFINITION OF MYOCARDIAL INFARCTION. THE UPPERREFERENCE LIMIT (URL) OF TROPONIN, DEFINED THE 99THPERCENTILE OF cTnI DISTRIBUTION IN A REFERENCE POPULATION,HAS BEEN CONFIRMED THE DECISION THRESHOLD FOR MIDIAGNOSIS.99TH PERCENTILE = 51.4 PG/MLNOTE: HIGH-SENSITIVITY TROPONIN ASSAY IS NOT INTENDED TO BEUSED IN ISOLATION BUT SHOULD BE INTERPRETED IN CONJUNCTIONWITH OTHER DIAGNOSTIC AND CLINICAL INFORMATION. Platelet mean volume Auto (B ld) [Entitic vol]on 07-15-2024 Platelet mean volume (Bld) [Entitic vol] Platelet mean volume [Entitic volume] in Blood by Automated count Low 9.5-13.5 [facility] Platelets Auto (Bld) [#/Vol] on 07-15-2024 Platelets (Bld) [#/Vol] Platelets [#/vol ume] in Blood by Automated count 150-450 [facility] RBC Auto (Bld) [#/Vol]on RBC (Bld) [#/Vol] Erythrocytes [#/volume] in Blood by Automated count Low 4.20-5.40 [facility] Serum or plasma albumin/glob ulin mass ratioon 07-15-2024 Albumin/Globulin [Mass ratio] Serum or plasma albumin/globulin mass ratio [facility] Serum or plasma anion gap de terminationon 07-15-2024 Anion gap [Moles/Vol] Serum or plasma anion gap determination [facility] Basophils Auto (Bld) [#/Vol] on 07-14-2024 Basophils (Bld) [#/Vol] Automated basoph il count 0.0-0.1 [facility] Basophils/100 WBC Auto (Bld) on 07-14-2024 Basophils/100 WBC (Bld) Automated basophil % 0. 2-2.0 [facility] Eosinophils/100 WBC Auto (Bl d)on 07-14-2024 Eosinophils/100 WBC (Bld) Automated eosinophil % 0.9-7.0 [facility] Erythrocyte distribution wid th Auto (RBC) [Ratio]on 07-14-2024 Erythrocyte distribution width (RBC) [Ratio] Erythrocyte distribution width [Ratio] by Automated count 11.0-15.0 [facility] Estimated glomerular filtrat ion rate (GFR) non- Americanon 07-14-2024 GFR/1.73 sq M.predicted among non-blacks MDRD (S/P/Bld) [Vol rate/Area] Estimated glomerular filtration rate (GFR) non- Low >=60 mL/min/1.73 m 2 [facility] Globulin Calc (S) [Mass/Vol] on 07-14-2024 Globulin (S) [Mass/Vol] Serum globulin measurement by calculation (mass/volume) [facility] Hematocrit Auto (Bld) [Volum e fraction]on 07-14-2024 Hematocrit (Bld) [Volume fraction] Hematocrit [Volume Fraction] of Blood by Automated count Low 36.0-48.0 [facility] Hemoglobin [Mass/volume] in Bloodon 07-14-2024 Hemoglobin (Bld) [Mass/Vol] Hemoglobin [Mass/volume] in Blood Low 12.0-16.0 [facility] Laboratory - Chemistry and C hemistry - challengeon 07-14-2024 Albumin [Mass/Vol] 2.9 g/dL Low 3.4-5.[address] [facility] ALP [Catalytic activity/Vol] 80 U/L 46-116 [facility] ALT [Catalytic activity/Vol] 19 U/L 14-59 [facility] AST [Catalytic activity/Vol] 41 U/L High 15-37 [facility] Bilirubin [Mass/Vol] 0.3 mg/dL 0.2-1.0 [facility] Calcium [Mass/Vol] 8.6 mg/dL 8.5-10.[address] [facility] Chloride [Moles/Vol] 103 mmol/L 98-107 [facility] CO2 [Moles/Vol] 32.0 mmol/L 21.0-32.0 [facility] Creatinine [Mass/Vol] 1.74 mg/dL High 0.55-1.02 [facility] GFR/1.73 sq M.predicted MDRD (S/P/Bld) [Vol rate/Area] 34 mL/min/{1.73_m2} Low >=60 mL/min/1.73 m 2 [facility] Glucose [Mass/Vol] 130 mg/dL High 74-[address] [facility] Natriuretic peptide B (Bld) [Mass/Vol] 326.0 pg/mL <=1800.0 [facility] Potassium [Moles/Vol] 3.5 mmol/L 3.5-5.1 [facility] Protein [Mass/Vol] 6.6 g/dL 6.4-8.[address] [facility] Sodium [Moles/Vol] 141 mmol/L 136-[address] [facility] Urea nitrogen [Mass/Vol] 24.0 mg/dL High 7.0-18.0 [facility] Urea nitrogen/Creatinine [Mass ratio] 13.8 mg/mg [facility] Laboratory - Hematology and Cell countson 07-14-2024 Immature granulocytes/100 WBC (Bld) 0.0 % 0.0-0.5 [facility] Leukocytes [#/volume] correc olamide for nucleated erythrocytes in Blood by Automated counon 07-14-2024 WBC corrected for nucl RBC Auto (Bld) [#/Vol] Leukocytes [#/volume] corrected for nucleated erythrocytes in Blood by Automated coun Low 4.0-11.0 [facility] Lymphocytes Auto (Bld) [#/Vo l]on 07-14-2024 Lymphocytes (Bld) [#/Vol] Lymphocytes [#/volume] in Blood by Automated count 1.2-3.8 [facility] Lymphocytes/100 WBC Auto (Bl d)on 07-14-2024 Lymphocytes/100 WBC (Bld) Lymphocytes/100 leukocytes in Blood by Automated count 20.5-60.0 [facility] MCH Auto (RBC) [Entitic mass ]on 07-14-2024 MCH (RBC) [Entitic mass] MCH [Entitic ma ss] by Automated count 26.7-34.0 [facility] MCHC Auto (RBC) [Mass/Vol]on 07-14-2024 MCHC (RBC) [Mass/Vol] MCHC [Mass/volume] by Automated count 29.9-35.2 [facility] MCV Auto (RBC) [Entitic vol] on 07-14-2024 MCV (RBC) [Entitic vol] MCV [Entitic vol ume] by Automated count 81.0-99.0 [facility] Monocytes Auto (Bld) [#/Vol] on 07-14-2024 Monocytes (Bld) [#/Vol] Automated blood monocyte count 0.3-0.8 [facility] Monocytes/100 WBC Auto (Bld) on 07-14-2024 Monocytes/100 WBC (Bld) Automated monocyte % 1. 7-12.0 [facility] Neutrophils Auto (Bld) [#/Vo l]on 07-14-2024 Neutrophils (Bld) [#/Vol] Neutrophils [#/volume] in Blood by Automated count 1.4-6.5 [facility] Neutrophils/100 WBC Auto (Bl d)on 07-14-2024 Neutrophils/100 WBC (Bld) Automated neutrophil % 43.0-75.0 [facility] No Panel Informationon 07-14 Eosinophils # (Auto) 0.1 10 3/uL 0.0-0.7 [facility] Immature Granulocyte # (Auto) 0.00 10 3/uL 0.00-0.03 [facility] Troponin I High Sensitivity 18.6 pg/mL 4.0-51.3 [facility] Comment on above: CUT-OFF POINTS HAVE BEEN ESTABLISHED BASED ON THE FOURTHUNIVERSAL DEFINITION OF MYOCARDIAL INFARCTION. THE UPPERREFERENCE LIMIT (URL) OF TROPONIN, DEFINED THE 99THPERCENTILE OF cTnI DISTRIBUTION IN A REFERENCE POPULATION,HAS BEEN CONFIRMED THE DECISION THRESHOLD FOR MIDIAGNOSIS.99TH PERCENTILE = 51.4 PG/MLNOTE: HIGH-SENSITIVITY TROPONIN ASSAY IS NOT INTENDED TO BEUSED IN ISOLATION BUT SHOULD BE INTERPRETED IN CONJUNCTIONWITH OTHER DIAGNOSTIC AND CLINICAL INFORMATION. Platelet mean volume Auto (B ld) [Entitic vol]on 07-14-2024 Platelet mean volume (Bld) [Entitic vol] Platelet mean volume [Entitic volume] in Blood by Automated count Low 9.5-13.5 [facility] Platelets Auto (Bld) [#/Vol] on 07-14-2024 Platelets (Bld) [#/Vol] Platelets [#/vol ume] in Blood by Automated count 150-450 [facility] RBC Auto (Bld) [#/Vol]on RBC (Bld) [#/Vol] Erythrocytes [#/volume] in Blood by Automated count Low 4.20-5.40 [facility] Serum or plasma albumin/glob ulin mass ratioon 07-14-2024 Albumin/Globulin [Mass ratio] Serum or plasma albumin/globulin mass ratio [facility] Serum or plasma anion gap de terminationon 07-14-2024 Anion gap [Moles/Vol] Serum or plasma anion gap determination [facility] Basophils Auto (Bld) [#/Vol] on 07-13-2024 Basophils (Bld) [#/Vol] Automated basoph il count 0.0-0.1 [facility] Basophils/100 WBC Auto (Bld) on 07-13-2024 Basophils/100 WBC (Bld) Automated basophil % 0. 2-2.0 [facility] Eosinophils/100 WBC Auto (Bl d)on 07-13-2024 Eosinophils/100 WBC (Bld) Automated eosinophil % Low 0.9-7.0 [facility] Erythrocyte distribution wid th Auto (RBC) [Ratio]on 07-13-2024 Erythrocyte distribution width (RBC) [Ratio] Erythrocyte distribution width [Ratio] by Automated count 11.0-15.0 [facility] [facility] Estimated glomerular filtrat ion rate (GFR) non- Americanon 07-13-2024 GFR/1.73 sq M.predicted among non-blacks MDRD (S/P/Bld) [Vol rate/Area] Estimated glomerular filtration rate (GFR) non- Low >=60 mL/min/1.73 m 2 [facility] Globulin Calc (S) [Mass/Vol] on 07-13-2024 Globulin (S) [Mass/Vol] Serum globulin measurement by calculation (mass/volume) [facility] Hematocrit Auto (Bld) [Volum e fraction]on 07-13-2024 Hematocrit (Bld) [Volume fraction] Hematocrit [Volume Fraction] of Blood by Automated count 36.0-48.0 [facility] Hemoglobin [Mass/volume] in Bloodon 07-13-2024 Hemoglobin (Bld) [Mass/Vol] Hemoglobin [Mass/volume] in Blood 12.0-16.0 [facility] Laboratory - Chemistry and C hemistry - challengeon 07-13-2024 Albumin [Mass/Vol] 3.2 g/dL Low 3.4-5.[address] [facility] ALP [Catalytic activity/Vol] 88 U/L 46-116 [facility] ALT [Catalytic activity/Vol] 13 U/L Low 14-59 [facility] AST [Catalytic activity/Vol] 41 U/L High 15-37 [facility] Bilirubin [Mass/Vol] 0.4 mg/dL 0.2-1.0 [facility] Calcium [Mass/Vol] 8.7 mg/dL 8.5-10.[address] [facility] Chloride [Moles/Vol] 102 mmol/L 98-107 [facility] CO2 [Moles/Vol] 34.2 mmol/L High 21.0-32.0 [facility] Creatinine [Mass/Vol] 1.91 mg/dL High 0.55-1.02 [facility] GFR/1.73 sq M.predicted MDRD (S/P/Bld) [Vol rate/Area] 31 mL/min/{1.73_m2} Low >=60 mL/min/1.73 m 2 [facility] Glucose [Mass/Vol] 138 mg/dL High 74-[address] [facility] Potassium [Moles/Vol] 3.7 mmol/L 3.5-5.1 [facility] Protein [Mass/Vol] 7.1 g/dL 6.4-8.[address] [facility] Sodium [Moles/Vol] 143 mmol/L 136-[address] [facility] Urea nitrogen [Mass/Vol] 25.0 mg/dL High 7.0-18.0 [facility] Urea nitrogen/Creatinine [Mass ratio] 13.1 mg/mg [facility] Laboratory - Hematology and Cell countson 07-13-2024 Immature granulocytes/100 WBC (Bld) 0.2 % 0.0-0.5 [facility] Leukocytes [#/volume] correc olamide for nucleated erythrocytes in Blood by Automated counon 07-13-2024 WBC corrected for nucl RBC Auto (Bld) [#/Vol] Leukocytes [#/volume] corrected for nucleated erythrocytes in Blood by Automated coun 4.0-11.0 [facility] Lymphocytes Auto (Bld) [#/Vo l]on 07-13-2024 Lymphocytes (Bld) [#/Vol] Lymphocytes [#/volume] in Blood by Automated count Low 1.2-3.8 [facility] Lymphocytes/100 WBC Auto (Bl d)on 07-13-2024 Lymphocytes/100 WBC (Bld) Lymphocytes/100 leukocytes in Blood by Automated count 20.5-60.0 [facility] MCH Auto (RBC) [Entitic mass ]on 07-13-2024 MCH (RBC) [Entitic mass] MCH [Entitic ma ss] by Automated count 26.7-34.0 [facility] MCHC Auto (RBC) [Mass/Vol]on 07-13-2024 MCHC (RBC) [Mass/Vol] MCHC [Mass/volume] by Automated count 29.9-35.2 [facility] MCV Auto (RBC) [Entitic vol] on 07-13-2024 MCV (RBC) [Entitic vol] MCV [Entitic vol ume] by Automated count 81.0-99.0 [facility] Monocytes Auto (Bld) [#/Vol] on 07-13-2024 Monocytes (Bld) [#/Vol] Automated blood monocyte count 0.3-0.8 [facility] Monocytes/100 WBC Auto (Bld) on 07-13-2024 Monocytes/100 WBC (Bld) Automated monocyte % 1. 7-12.0 [facility] Neutrophils Auto (Bld) [#/Vo l]on 07-13-2024 Neutrophils (Bld) [#/Vol] Neutrophils [#/volume] in Blood by Automated count 1.4-6.5 [facility] Neutrophils/100 WBC Auto (Bl d)on 07-13-2024 Neutrophils/100 WBC (Bld) Automated neutrophil % 43.0-75.0 [facility] No Panel Informationon 07-13 Eosinophils # (Auto) 0.0 10 3/uL 0.0-0.7 [facility] Immature Granulocyte # (Auto) 0.01 10 3/uL 0.00-0.03 [facility] Platelet mean volume Auto (B ld) [Entitic vol]on 07-13-2024 Platelet mean volume (Bld) [Entitic vol] Platelet mean volume [Entitic volume] in Blood by Automated count Low 9.5-13.5 [facility] Platelets Auto (Bld) [#/Vol] on 07-13-2024 Platelets (Bld) [#/Vol] Platelets [#/vol ume] in Blood by Automated count 150-450 [facility] RBC Auto (Bld) [#/Vol]on RBC (Bld) [#/Vol] Erythrocytes [#/volume] in Blood by Automated count 4.20-5.40 [facility] Serum or plasma albumin/glob ulin mass ratioon 07-13-2024 Albumin/Globulin [Mass ratio] Serum or plasma albumin/globulin mass ratio [facility] Serum or plasma anion gap de terminationon 07-13-2024 Anion gap [Moles/Vol] Serum or plasma anion gap determination [facility] Basophils Auto (Bld) [#/Vol] on 07-12-2024 Basophils (Bld) [#/Vol] Automated basoph il count 0.0-0.1 [facility] Basophils/100 WBC Auto (Bld) on 07-12-2024 Basophils/100 WBC (Bld) Automated basophil % 0. 2-2.0 [facility] Cholesterol in LDL Calc [Mas s/Vol]on 07-12-2024 Cholesterol in LDL [Mass/Vol] Cholesterol in LDL [Mass/volume] in Serum or Plasma by calculation [facility] Comment on above: <100 mg/dl [id number] 0-129 mg/dl NEAR OR ABOVE [id number] mg/dl BORDERLINE [id number] mg/dl HIGH>190 mg/dl VERY HIGH Cholesterol in VLDL Calc [Ma ss/Vol]on 07-12-2024 Cholesterol in VLDL [Mass/Vol] Cholesterol in VLDL [Mass/volume] in Serum or Plasma by calculation [facility] Eosinophils/100 WBC Auto (Bl d)on 07-12-2024 Eosinophils/100 WBC (Bld) Automated eosinophil % Low 0.9-7.0 [facility] Erythrocyte distribution wid th Auto (RBC) [Ratio]on 07-12-2024 Erythrocyte distribution width (RBC) [Ratio] Erythrocyte distribution width [Ratio] by Automated count 11.0-15.0 [facility] Estimated glomerular filtrat ion rate (GFR) non- Americanon 07-12-2024 GFR/1.73 sq M.predicted among non-blacks MDRD (S/P/Bld) [Vol rate/Area] Estimated glomerular filtration rate (GFR) non- Low >=60 mL/min/1.73 m 2 [facility] Glucose mean value [Mass/vol ume] in Blood Estimated from glycated hemoglobinon 07-12-2024 Average glucose Estimated from glycated hemoglobin (Bld) [Mass/Vol] Glucose mean value [Mass/volume] in Blood Estimated from glycated hemoglobin [facility] Hematocrit Auto (Bld) [Volum e fraction]on 07-12-2024 Hematocrit (Bld) [Volume fraction] Hematocrit [Volume Fraction] of Blood by Automated count 36.0-48.0 [facility] Hemoglobin A1c percentageon 07-12-2024 HbA1c (Bld) [Mass fraction] Hemoglobin A1c percentage High 4.5-6.2 [facility] Comment on above: ADA RECOMMENDED LIMI T 4.0 - 6.0ADA THERAPEUTIC TARGET < 7.0ACTION SUGGESTED> 7.0 Hemoglobin [Mass/volume] in Bloodon 07-12-2024 Hemoglobin (Bld) [Mass/Vol] Hemoglobin [Mass/volume] in Blood 12.0-16.0 [facility] Laboratory - Chemistry and C hemistry - challengeon 07-12-2024 Cholesterol [Mass/Vol] 124 mg/dL <=200 [facility] Cholesterol in HDL [Mass/Vol] 67 mg/dL High 40-60 [facility] Comment on above: > or =60 mg/dl - LOW CARDIOVASCULAR RISK<40 mg/dl - HIGH CARDIOVASCULAR RISK CK [Catalytic activity/Vol] 257 U/L High 26-192 [facility] Natriuretic peptide B (Bld) [Mass/Vol] 1856.0 pg/mL Critically high <=1800.0 [facility] Comment on above: RESULTS CALLED TO SA REBECCA RAZA RN ON MEDSURG BY Diann Chen at 0941 Triglyceride [Mass/Vol] 57 mg/dL <=150 [facility] TSH Qn 1.264 m[IU]/L 0.358-3.740 [facility] Bilirubin Ql (U) Negative NEGATIVE [facility] Glucose (U) [Mass/Vol] Negative NEGATIVE [facility] Ketones Ql (U) TRACE mg/dL Abnormal NEGATIVE [facility] pH (U) 6.0 [pH] 5.0-9.0 [facility] Specific gravity (U) [Rel density] 1.015 1.005-1.025 [facility] Urobilinogen Qn (U) 0.2 {Macie'U}/dL 0.2-1.0 [facility] Calcium [Mass/Vol] 9.5 mg/dL 8.5-10.[address] [facility] Chloride [Moles/Vol] 102 mmol/L 98-107 [facility] CO2 [Moles/Vol] 32.4 mmol/L High 21.0-32.0 [facility] Creatinine [Mass/Vol] 1.88 mg/dL High 0.55-1.02 [facility] GFR/1.73 sq M.predicted MDRD (S/P/Bld) [Vol rate/Area] 31 mL/min/{1.73_m2} Low >=60 mL/min/1.73 m 2 [facility] Glucose [Mass/Vol] 174 mg/dL High 74-[address] [facility] Lactate [Moles/Vol] 1.9 mmol/L 0.4-2.0 [facility] Potassium [Moles/Vol] 3.4 mmol/L Low 3.5-5.1 [facility] Sodium [Moles/Vol] 144 mmol/L 136-[address] [facility] Urea nitrogen [Mass/Vol] 20.0 mg/dL High 7.0-18.0 [facility] Urea nitrogen/Creatinine [Mass ratio] 10.6 mg/mg [facility] Laboratory - Hematology and Cell countson 07-12-2024 Immature granulocytes/100 WBC (Bld) 0.4 % 0.0-0.5 [facility] Laboratory - Microbiology an d Antimicrobial susceptibilityon 07-12-2024 SARS-CoV-2 (COVID-19) RNA DIETER+probe Ql (Unsp spec) Negative NEGATIVE [facility] Comment on above: This test has not be en FDA cleared or approved, but has beenauthorized by the FDA under an Emergency Use Authorization(EUA) for use by authorized laboratories certified underCLIA that meet the requirements to perform moderate or highcomplexity testing. This test has been authorized only forthe detection of proteins from SARS-CoV-2, not for any otherviruses or pathogens. The emergency use of this test isauthorized for the duration of the declaration thatcircumstances exist justifying the authorization ofemergency use of in vitro diagnostic tests for detectionand/or diagnosis of Covid-19 under section 564(b)(1) of theAct, 21 U.S.C. 360bbb-3(b)(1), unless the declaration isterminated or authorization is revoked sooner. Laboratory - Specimen inform ationon 07-12-2024 Appearance (U) CLEAR CLEAR [facility] Color (U) LT. YELLOW YELLOW [facility] Laboratory - Urinalysison Leukocyte esterase Test strip Ql (U) TRACE Abnormal NEGATIVE [facility] Mucus Ql (Urine sed) NONE SEEN NONE SEEN [facility] Nitrite Ql (U) Positive Abnormal NEGATIVE [facility] Protein Ql (U) 30 mg/dL Abnormal NEG/TRACE [facility] Leukocytes [#/volume] correc olamide for nucleated erythrocytes in Blood by Automated counon 07-12-2024 WBC corrected for nucl RBC Auto (Bld) [#/Vol] Leukocytes [#/volume] corrected for nucleated erythrocytes in Blood by Automated coun 4.0-11.0 [facility] Lymphocytes Auto (Bld) [#/Vo l]on 07-12-2024 Lymphocytes (Bld) [#/Vol] Lymphocytes [#/volume] in Blood by Automated count Low 1.2-3.8 [facility] Lymphocytes/100 WBC Auto (Bl d)on 07-12-2024 Lymphocytes/100 WBC (Bld) Lymphocytes/100 leukocytes in Blood by Automated count Low 20.5-60.0 [facility] MCH Auto (RBC) [Entitic mass ]on 07-12-2024 MCH (RBC) [Entitic mass] MCH [Entitic ma ss] by Automated count 26.7-34.0 [facility] MCHC Auto (RBC) [Mass/Vol]on 07-12-2024 MCHC (RBC) [Mass/Vol] MCHC [Mass/volume] by Automated count 29.9-35.2 [facility] MCV Auto (RBC) [Entitic vol] on 07-12-2024 MCV (RBC) [Entitic vol] MCV [Entitic vol ume] by Automated count 81.0-99.0 [facility] Monocytes Auto (Bld) [#/Vol] on 07-12-2024 Monocytes (Bld) [#/Vol] Automated blood monocyte count 0.3-0.8 [facility] Monocytes/100 WBC Auto (Bld) on 07-12-2024 Monocytes/100 WBC (Bld) Automated monocyte % 1. 7-12.0 [facility] Neutrophils Auto (Bld) [#/Vo l]on 07-12-2024 Neutrophils (Bld) [#/Vol] Neutrophils [#/volume] in Blood by Automated count 1.4-6.5 [facility] Neutrophils/100 WBC Auto (Bl d)on 07-12-2024 Neutrophils/100 WBC (Bld) Automated neutrophil % High 43.0-75.0 [facility] No Panel Informationon 07-12 Troponin I High Sensitivity 64.1 pg/mL Critically high 4.0-51.3 [facility] Comment on above: RESULTS CALLED TO SA REBECCA RAZA RN ON MEDSURG BY Diann Chen at 1231CUT-OFF POINTS HAVE BEEN ESTABLISHED BASED ON THE FOURTHUNIVERSAL DEFINITION OF MYOCARDIAL INFARCTION. THE UPPERREFERENCE LIMIT (URL) OF TROPONIN, DEFINED THE 99THPERCENTILE OF cTnI DISTRIBUTION IN A REFERENCE POPULATION,HAS BEEN CONFIRMED THE DECISION THRESHOLD FOR MIDIAGNOSIS.99TH PERCENTILE = 51.4 PG/MLNOTE: HIGH-SENSITIVITY TROPONIN ASSAY IS NOT INTENDED TO BEUSED IN ISOLATION BUT SHOULD BE INTERPRETED IN CONJUNCTIONWITH OTHER DIAGNOSTIC AND CLINICAL INFORMATION. Urine Bacteria LARGE #/HPF Abnormal NONE SEEN [facility] Urine Culture Reflexed YES [facility] Urine Occult Blood MODERATE Abnormal NEGATIVE [facility] Urine Other Casts NONE SEEN #/LPF NONE SEEN [facility] Urine Other Crystals None Seen #/HPF None Seen [facility] Urine RBC 2-5 #/HPF Abnormal 0-2 [facility] Urine Squamous Epithelial Cells RARE #/LPF NONE/RARE [facility] Urine WBC 10-20 #/HPF Abnormal NONE SEEN [facility] Eosinophils # (Auto) 0.0 10 3/uL 0.0-0.7 [facility] Immature Granulocyte # (Auto) 0.03 10 3/uL 0.00-0.03 [facility] Bedside Influenza Type A Antigen Negative [facility] Comment on above: Negative for Flu A p rotein antigen. Infection due to Flu Acannot be ruled out. Flu A antigen in the sample may bebelow the detection limit of the test. Bedside Influenza Type B Antigen Negative [facility] Comment on above: Negative for Flu B p rotein antigen. Infection due to Flu Bcannot be ruled out. Flu B antigen in the sample may bebelow the detection limit of the test. RSV RNA Qual (PCR)([facility]) Not detected NOT DETEC TE [facility] Platelet mean volume Auto (B ld) [Entitic vol]on 07-12-2024 Platelet mean volume (Bld) [Entitic vol] Platelet mean volume [Entitic volume] in Blood by Automated count Low 9.5-13.5 [facility] Platelets Auto (Bld) [#/Vol] on 07-12-2024 Platelets (Bld) [#/Vol] Platelets [#/vol ume] in Blood by Automated count 150-450 [facility] RBC Auto (Bld) [#/Vol]on RBC (Bld) [#/Vol] Erythrocytes [#/volume] in Blood by Automated count 4.20-5.40 [facility] Serum or plasma anion gap de terminationon 07-12-2024 Anion gap [Moles/Vol] Serum or plasma anion gap determination [facility] Serum or plasma total choles terol/high density lipoprotein (HDL) cholesterol mass jerilyn 07-12-2024 Cholesterol.total/Choles terol in HDL [Mass ratio] Serum or plasma total cholesterol/high density lipoprotein (HDL) cholesterol mass rat [facility] Comment on above: 3.3 - 4.4 LOW RISK4. 4 - 7.1 AVERAGE RISK7.1 - 11.0 MODERATE RISK>11.0 HIGH RISK Office Visiton 05-28-2024 Follow-up visit [id number] Nadia Patterson 1945 F Date Provider Department Center 05/28/2024 [id number], EHAB BH CARD [facility] No family history on file Level of Service:72597 [place] OFFICE/OUTPATIENT ESTABLISHED LOW MDM 20 MIN Normal [facility] C Sputumon 04-07-2024 Bacteria identified Respiratory culture [...] Locations R1: This test was performed at: [facility], [address] [place] [address], [id number] , , [facility] Comment on above: Performed By: #### 2 [id number] #### [facility] [address] [place] [address] BMPon 04-06-2024 Anion gap [Moles/Vol] 12 mmol/L Normal 6-16 [facility] Comment on above: Performed By: #### 2 [id number] #### [facility] [address] [place] [address] Calcium [Mass/Vol] 8.7 mg/dL Low 8.9-11.1 [facility] Comment on above: Performed By: #### 2 [id number] #### [facility] [address] [place] [address] Chloride [Moles/Vol] 106 mmol/L Normal 101-111 [facility] Comment on above: Performed By: #### 2 [id number] #### [facility] [address] [place] [address] CO2 [Moles/Vol] 25 mmol/L Normal 21-31 [facility] Comment on above: Performed By: #### 2 [id number] #### [facility] [address] [place] [address] Creatinine [Mass/Vol] 1.4 mg/dL High 0.5-1.3 [facility] Comment on above: Performed By: #### 2 [id number] #### [facility] [address] [place] [address] Glucose [Mass/Vol] 138 mg/dL Normal 55-199 [facility] Comment on above: Performed By: #### 2 [id number] #### [facility] [address] [place] [address] Potassium [Moles/Vol] 4.5 mmol/L Normal 3.5-5.3 [facility] Comment on above: Performed By: #### 2 [id number] #### [facility] [address] [place] [address] Sodium [Moles/Vol] 138 mmol/L Normal 135-145 [facility] Comment on above: Performed By: #### 2 [id number] #### [facility] [address] [place] [address] Urea nitrogen [Mass/Vol] 16 mg/dL Normal 5-21 [facility] Comment on above: Performed By: #### 2 [id number] #### [facility] [address] [place] [address] Urea nitrogen/Creatinine [Mass ratio] 11 No Units Normal 10-20 [facility] Comment on above: Performed By: #### 2 [id number] #### [facility] [address] [place] [address] C Urineon 04-06-2024 Bacteria identified Cx Nom [...] Locations R1: This test was performed at: [facility], [address] [place] [address], [phone] , [place], Normal [facility] Comment on above: Performed By: #### 2 [id number] #### [facility] [address] [place] [address] CHEMISTRYOrdered By: Lab ROP User on 04-06-2024 Glucose [Mass/Vol] 137 mg/dL High 55 - 99 mg/dL [facility] P[facility] Subsection Comment on above: Result Comment: Michelle erickson RN/ POC Device SN [id number] 1 Invalid Interpretation Code [facility] POC Subsection POC User ID [id number] 1 Invalid Interpretation Code [facility] POC Subsection POC Username MARIELA LI Invalid Interpretation Code [facility] POC Subsection Glucose [Mass/Vol] 236 mg/dL High 55 - 99 mg/dL [facility] POC Subsection Comment on above: Result Comment: Michelle erickson RN/ POC Device SN [id number] 1 Invalid Interpretation Code [facility] POC Subsection POC User ID [id number] 1 Invalid Interpretation Code [facility] POC Subsection POC Username HENRY PEPPER Invalid Interpretation Code [facility] POC Subsection Glucose [Mass/Vol] 123 mg/dL High 55 - 99 mg/dL [facility] POC Subsection Comment on above: Result Comment: Michelle erickson RN/ POC Device SN [id number] 1 Invalid Interpretation Code [facility] POC Subsection POC User ID [id number] 1 Invalid Interpretation Code [facility] POC Subsection POC Username HENRY PEPPER Invalid Interpretation Code [facility] POC Subsection CHEMISTRYOrdered By: SYSTEM SYSTEM on [...] 11-0 Glucose [Mass/Vol] 137 mg/dL High 55-99 [facility] Comment on above: Result Comment: Michelle PACHECO Performed By: #### 2 [id number] #### [facility] [address] [place] [address] Glucose [Mass/Vol] 236 mg/dL High 55-99 [facility] Comment on above: Result Comment: Michelle PACHECO Performed By: #### 2 [id number] #### [facility] [address] [place] [address] Glucose [Mass/Vol] 123 mg/dL High 55-99 [facility] Comment on above: Result Comment: Michelle PACHECO Performed By: #### 2 [id number] #### [facility] [address] [place] [address] HEMATOLOGYOrdered By: SYSTEM SYSTEM on 04-06-2024 Hematocrit (Bld) [Volume fraction] 32.0 % Low 34.0 - 46.0 % Remisol Heme Hemoglobin (Bld) [Mass/Vol] 10.8 g/dL Low 12.0 - 16.0 gm/dL Remisol Heme Hct & Hgbon 04-06-2024 Hematocrit (Bld) [Volume fraction] 32.0 % Low 34.0-46.0 [facility] Comment on above: Performed By: #### 1 [id number] #### [facility] [address] [place] [address] Hemoglobin (Bld) [Mass/Vol] 10.8 g/dL Low 12.0-16.0 [facility] Comment on above: Performed By: #### 1 [id number] #### [facility] [address] [place] [address] Inpatient Clinical Summaryon 04-06-2024 Inpatient Clinical Summary Inpatient Clinical Summary [address] [address] Clinical Summary Person Information: Name: NADIA PATTERSON Age: 78 Years : 1945 Sex: Female PCP: HARPAL HAYES MD Marital Status: Phone: [phone] Race: White Ethnicity: Non- or Language: Argentine Visit Id: Visit Reason: Respiratory problem; Cough; Shortness of breath; fever Speciality: Acuity: Enc Type: Inpatient Med Service: Medical Arrival: 04/04/2024 00:25:34 Discharge: Dispo Type: Admitted as IP to this Hosp Address: [address] [place] [phone] Provider Notes: Diagnosis: 1:Acute respiratory failure with [...] not to exceed 4000 mg/day. acetaminophen-hydroc odone ([place] 325 mg-5 mg oral tablet) 1 Tablets [...] Physician: Follow up: With: Address: When: [place] [address] Business (1) 05/07/2024 2:00 PM With: Address: When: Brianne Jane [address], [address], [address] [phone] Business (1) Within 5 to 7 days Comments: Doctor's office is (more content not included)... Normal [facility] Inpatient Clinical Summary Inpatient Clinical Summary [place] [id number] Clinical Summary Person Information: Name: NADIA PATTERSON Age: 78 Years : 1945 Sex: Female PCP: HARPAL HAYES MD Marital Status: Phone: [phone] Race: White Ethnicity: Non- or Language: Argentine Visit Id: Visit Reason: Respiratory problem; Cough; Shortness of breath; fever Speciality: Acuity: Enc Type: Inpatient Med Service: Medical Arrival: 04/04/2024 00:25:34 Discharge: Dispo Type: Admitted as IP to this Hosp Address: [address] [place] [phone] Provider Notes: Diagnosis: 1:Acute respiratory failure with [...] not to exceed 4000 mg/day. acetaminophen-hydroc odone ([place] 325 mg-5 mg oral tablet) 1 Tablets [...] Physician: Follow up: With: Address: When: Brianne Jane [address] [place] [address], [address], [place] [id number] [phone] Business (1) Within 5 to 7 days With: Address: [facility] [address] Business (1) Within 5 to 7 days With: Address: When: Follow u (more content not included)... Normal [facility] Inpatient Clinical Summary Inpatient Clinical Summary [address] [address] Clinical Summary Person Information: Name: NADIA PATTERSON Age: 78 Years : 1945 Sex: Female PCP: HARPAL HAYES MD Marital Status: Phone: [phone] Race: White Ethnicity: Non- or Language: Argentine Visit Id: Visit Reason: Respiratory problem; Cough; Shortness of breath; fever Speciality: Acuity: Enc Type: Inpatient Med Service: Medical Arrival: 04/04/2024 00:25:34 Discharge: Dispo Type: Admitted as IP to this Hosp Address: [address] [place] [phone] Provider Notes: Diagnosis: 1:Acute respiratory failure with [...] By Mouth every 6 hours. acetaminophen-hydroc odone ([place] 325 mg-5 mg oral tablet) 1 Tablets [...] Follow up: With: Address: When: HARPAL HAYES [address] [place] [address] [facility] () 04/12/2024 11:30 AM With: Address: When: Patient is currenct with [facility]. Patient Education Information: Normal [facility] Inpatient Patient Summaryon 04-06-2024 Inpatient Patient [...] acetaminophen (acetaminophen 325 mg Tab) acetaminophen-hydroc odone ([place] 325 mg-5 mg oral tablet) albuterol (Albuterol [...] Santiago When: 05/07/2024 02:00 PM EST Where: [address] [place] [address]- Business (1) Follow Up with HARPAL HAYES When: 04/12/2024 11:30 AM EST Where: [facility] [place] [address]- Business (1) Follow Up with Brianne Jane When: Within 5 to 7 days Comments: Doctor's office is closed for the day. Please call Tuesday to make hospital follow up appointment. Where: [facility] Brandon Merino, [address] [phone] Business (1) Follow Up with Follow up with your primary cardiology team as soon as possible When: Follow Up with Patient is currenct with [facility]. When: Medications What How Much When Instructions Next Dose New albuterol (Albuterol (Eqv-Ventolin HFA) 90 mcg/ inh inhalation aerosol) 1 Inhalation Inhalation Every 2 hours Pickup at [place] [address] as needed New amoxicillin-clavulan ate (Augmentin 875 mg-125 mg Tab) 1 Tablets By Mouth Every 12 hours Duration: 5 Days Pickup at [place] [address] start New benzonatate (Tessalon 100 mg Cap) 1 Capsules By Mouth 3 times a day as needed for Cough Duration: 5 Days Pickup at [place] [address] start New cyanocobalamin (cyanocobalamin 1000 mcg Tab) 1 Tablets By Mouth Every day Pickup at [place] [address] 04/07 New folic acid (folic acid 1 mg Tab) 1 Tablets By Mouth Every day Pickup at [place] [address] 04/07 New guaifenesin (Mucinex 600 mg Tab-ER) 2 Tablets By Mouth Every 12 hours Duration: 5 Days Pickup at [facility] 1155 04/07@9am New pantoprazole (Protonix 40 mg Tab-DR) 1 Tablets By Mouth Every day Pickup at [facility] 1155 04/07 Changed acetaminophen (acetaminophen 325 mg Tab) 2 Tablets By Mouth Every 6 hours as needed for Laine (more content not included)... [facility] Inpatient Patient Summary Inpatient Patient Summary NADIA PATTERSON :1945 Visit Date:04/04/2024 Inpatient Discharge Instructions Your Care Team Admitting Physician - Tika CHRISTENSEN DO Consulting Physician - Delphine BRIGGS, Briseida TRAORE, XXXX Reason for Your Visit Cough Your [...] acetaminophen (acetaminophen 325 mg Tab) acetaminophen-hydroc odone ([place] 325 mg-5 mg oral tablet) albuterol (Albuterol [...] EST Where: [place] [address]- Business (1) Follow Up with HARPAL HAYES When: 04/12/2024 11:30 AM EST Where: [address] [place] [address]- Business (1) Follow Up with Brianne Jane When: Within 5 to 7 days Comments: Doctor's office is closed for the day. Please call Tuesday to make hospital follow up appointment. Where: Sophie Merino, [address] [phone] Business (1) Follow Up with Follow up with your primary cardiology team as soon as possible When: Follow Up with Patient is currenct with [facility]. When: Medications What How Much When Instructions Next Dose New albuterol (Albuterol (Eqv-Ventolin HFA) 90 mcg/ inh inhalation aerosol) 1 Inhalation Inhalation Every 2 hours Pickup at [place] [address] as needed New amoxicillin-clavulan ate (Augmentin 875 mg-125 mg Tab) 1 Tablets By Mouth Every 12 hours Duration: 5 Days Pickup at [place] [address] start New benzonatate (Tessalon 100 mg Cap) 1 Capsules By Mouth 3 times a day as needed for Cough Duration: 5 Days Pickup at [place] [address] start New cyanocobalamin (cyanocobalamin 1000 mcg Tab) 1 Tablets By Mouth Every day Pickup at [place] [address] 04/07 New folic acid (folic acid 1 mg Tab) 1 Tablets By Mouth Every day Pickup at [place] [address] 04/07 New guaifenesin (Mucinex 600 mg Tab-ER) 2 Tablets By Mouth Every 12 hours Duration: 5 Days Pickup at [place] [address] 04/07@4am New oxybutynin (oxybutynin 5 mg ER Tab) 1 Tablets By Mouth Every day 04/07 New pantoprazole (Protonix 40 mg Tab-DR) 1 Tablets By Mouth Every day Pickup at [facility] (more content not included)... [facility] Inpatient Patient Summary Inpatient Patient Summary [place] [id number] Patient Discharge Instructions PERSON INFORMATION Name: NADIA [...] Follow up: With: Address: [facility] [place] [address] Business (1) 05/07/2024 2:00 PM With: Address: When: Brianne Jane [address] [place] [address], [facility] [address] [address] [phone] Business (1) Within 5 to 7 days Comments: Doctor's office is closed for the day. Please call Tuesday to make hospital follow up appointment. With: Address: When: Follow up with your primary cardiology team as soon as possible With: Address: When: HARPAL HAYES [address] [place] [phone] Business (1) 04/12/2024 11:30 AM With: Address: When: Patient is currenct with [facility]. In the event that this physician [...] New Medications [facility], [address] [facility] [place] [id number], [phone] albuterol (Albuterol (Eqv-Ventolin HFA) 90 mcg/inh inhalation [...] to Continue Taking That Have Ch[facility], [address] [place], [place] [id number], [phone] START: ferrous sulfate (ferrous sulfate 325 mg Tab) 1 Tablets By Mouth every day. Refills: 0. Last Dose: Next Dose: STOP: ferrous sulfate (ferrous sulfate 325 mg Tab) 1 Tablets By Mouth Tuesday. Other Medications START: acetaminophen (acetaminophen 325 mg Tab) 2 Tablets By Mouth every 6 hours as needed Pain. (more content not included)... [facility] Inpatient Patient Summary Inpatient Patient Summary [address] [address] Patient Discharge Instructions PERSON INFORMATION [...] (DVT) prophylaxis; 16:Morbid obesity Condition at Discharge: NADIA Chris has been given the following list of [...] Follow up: With: Address: When: Brianne Barrios [facility], [address], [address] [phone] Business (1) Within 5 to 7 days With: Address: When: [place] [address] Business (1) Within 5 to 7 days With: Address: When: Follow up with your primary cardiology team as soon as possible With: Address: When: HARPAL HAYES [address] [place] [phone] Business (1) 04/12/2024 11:30 AM With: Address: When: Patient is currenct with [facility]. In the event that this physician [...] New Medic[facility] [address], [address] [facility] [place], [place] [id number], [phone] albuterol (Albuterol (Eqv-Ventolin HFA) 90 mcg/inh inhalation [...] Have Changed [facility] [address], [address] [place], [place] [id number], [phone] START: ferrous sulfate (ferrous sulfate 325 mg [...] STOP: acetaminophen (more content not included)... [facility] Inpatient Patient Summary Inpatient Patient Summary [address] [address] Patient Discharge Instructions PERSON INFORMATION Name: FARHEEN PATTERSONESHA Dong Date of : 1945 Current Date: [...] Follow up: With: Address: When: HARPAL HAYES [address] [place] [address] Business (1) 04/12/2024 11:30 AM With: Address: When: Patient is currenct with [facility]. In the event that this physician [...] hours. Last Dose: Next Dose: acetaminophen-hydroc odone ([place] 325 mg-5 mg oral tablet) 1 Tablets [...] Dose: n (more content not included)... [facility] Interdisciplinary Note - [place] e Manageron 04-06-2024 Interdisciplinary Note - Block Setter [place] Interdisciplinary Note - Block Setter [place] CRM to room 306 Patient is awake, alert and oriented. Patient verified PCP, DME and insurance. Patient is from home with her Spouse. [place] Patient is an inpatient. She completed IMM 04/04 and this gets reviewed. Patient is here for fever, PNA. Patient is assigned to Akua GRAHAM, see notes. Per patient she has a walker at home. She is current with [facility]. She declined any needs for further DME or SNF stay. PT/OT recs SNF with expected improvement. Patient was weaned to RA. Patient continues to decline SNF stay. Patient was provided CRM contact, rickie board updated. CRM following CRM will get updates from Akua GRAHAM at 10 AM Today therapy recs care Lilian called and was provided an update. Akua will be informed she is here and would like to meet with her I was updated that patient might DC home today now and f/u with GI as an OP [facility] Comment on above: Result Comment: Patt tronically Signed By: Rosalinda Vogel\.br\Date and Time Signed: 04/06/24 13:33 EDT Interdisciplinary Note - Block Setter [place] Interdisciplinary Note - Block Setter [place] CRM to room 306 Patient is awake, alert and oriented. Patient verified PCP, DME and insurance. Patient is from home with her Spouse. She [place] Patient is an inpatient. She completed IMM 04/04 and this gets reviewed. Patient is here for fever, PNA. 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 Per patient she has a walker at home. She is current with [facility] care. She declined any needs for further DME or SNF stay. PT/OT recs SNF with expected improvement. Patient was weaned to RA. Patient continues to decline SNF stay. Patient was provided CRM contact, white board updated. CRM following CRM will get updates from Akua PATIENT CARE NURSING ASSISTANT at 10 AM Today therapy recs care [facility] Comment on above: Result Comment: Patt tronically Signed By: Rosalinda Vogel\.br\Date and Time Signed: 04/06/24 10:37 EDT Interdisciplinary Note - Block Setter [place] Interdisciplinary Note - Block Setter [place] CRM to room 306 Patient is awake, alert and oriented. Patient verified PCP, DME and insurance. Patient is from home with her Spouse. She [place] ride [place] Patient is an inpatient. She completed IMM 04/04 and this gets reviewed. Patient is here for fever, PNA. 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 Per patient she has a walker at home. She is current with [facility] care. She declined any needs for further DME or SNF stay. PT/OT recs SNF with expected improvement. Patient was weaned to RA. Patient continues to decline SNF stay. Patient was provided CRM contact, white board updated. CRM following CRM will get updates from Akua PATIENT CARE NURSING ASSISTANT at 10 AM [facility] Comment on above: Result Comment: Patt tronically Signed By: Rosalinda Vogel\.br\Date and Time Signed: 04/06/24 09:12 EDT MICRO OTHER TESTSOrdered By: Angie Skinner on 04-06-2024 Occult blood panel (Stl) Positive *ABN* (04/06/24 4:27 AM) Invalid Interpretation Code Negative [facility] Man Sero MRSA Screenon 04-06-2024 MRSA DNA DIETER+probe Ql (Unsp spec) Microbiology PROCEDURE: MRSA Screen [R1] SOURCE: Nasal BODY SITE: COLLECTED DATE/TIME: 04/04/2024 12:21 EDT RECEIVED DATE/TIME: 04/04/2024 13:17 EDT START DATE/TIME: 04/04/2024 13:17 EDT FREE TEXT SOURCE: MCDONALD AGACNP-BC, Akua MCDONALD AGACNP-BC, Ak[facility] FINAL REPORTS Final Report [] Verified Date/Time: 04/06/2024 09:23 EDT MRSA Negative. Performing Locations R1: This test was performed at: [facility], [address] [place] [address], [phone] , , [facility] Comment on above: Performed By: #### 1 [id number] #### [facility] [address] [place] [address] Procalcitoninon 04-06-2024 Procalcitonin 11.39 ng/mL High .00-.50 [facility] Comment on above: Result Comment: <0.5 ng/mL [...] to 24 hours. Performed By: #### 2 [id number] #### [facility] [address] [place] [address] Stl Oclt Bldon 04-06-2024 Occult blood panel (Stl) Positive Abnormal Negative [facility] Comment on above: Performed By: #### 2 [id number] #### [facility] [address] [place] [address] U Legi Agon 04-06-2024 L. pneumophila 1 Ag IA Ql (U) Negative Invalid Interpretation Code Negative [facility] Comment on above: Result Comment: Pres umptive negative for L. pneumophila serogroup 1 antigen in urine, suggesting no recent or current infection. Legionnaires' disease cannot be ruled out since other serogroups and species may also cause disease. Performed at: [facility] [address] [id number] MD Geovanny Chapman Performed By: #### 2 [id number] #### [facility] [address] [place] [address] eGFRon 04-06-2024 eGFR 38 mL/min/1.73 m2 Low >=59 [facility] Comment on above: Performed By: #### 1 [id number] #### [facility] [address] [place] [address] BMPon 04-05-2024 Anion gap [Moles/Vol] 10 mmol/L Normal 6-16 [facility] Comment on above: Performed By: #### 2 [id number] #### [facility] [address] [place] [address] Calcium [Mass/Vol] 8.4 mg/dL Low 8.9-11.1 [facility] Comment on above: Performed By: #### 2 [id number] #### [facility] [address] [place] [address] Chloride [Moles/Vol] 103 mmol/L Normal 101-111 [facility] Comment on above: Performed By: #### 2 [id number] #### [facility] [address] [place] [address] CO2 [Moles/Vol] 30 mmol/L Normal 21-31 [facility] Comment on above: Performed By: #### 2 [id number] #### [facility] [address] [place] [address] Creatinine [Mass/Vol] 1.6 mg/dL High 0.5-1.3 [facility] Comment on above: Performed By: #### 2 [id number] #### [facility] [address] [place] [address] Glucose [Mass/Vol] 133 mg/dL Normal 55-199 [facility] Comment on above: Performed By: #### 2 [id number] #### [facility] [address] [place] [address] Potassium [Moles/Vol] 3.5 mmol/L Normal 3.5-5.3 [facility] Comment on above: Performed By: #### 2 [id number] #### [facility] [address] [place] [address] Sodium [Moles/Vol] 139 mmol/L Normal 135-145 [facility] Comment on above: Performed By: #### 2 [id number] #### [facility] [address] [place] [address] Urea nitrogen [Mass/Vol] 21 mg/dL Normal 5-21 [facility] Comment on above: Performed By: #### 2 [id number] #### [facility] [address] [place] [address] Urea nitrogen/Creatinine [Mass ratio] 13 No Units Normal 10-20 [facility] Comment on above: Performed By: #### 2 [id number] #### [facility] [address] [place] [address] CBC w/ Auto Diffon 4 Basophils/100 WBC (Bld) 0.9 % Normal 0.0-2.0 [facility] Comment on above: Performed By: #### 2 [id number] #### [facility] [address] [place] [address] Basophils/Leukocytes Auto (Bld) [Pure # fraction] 0.1 E9/L Normal 0.0-0.2 [facility] Comment on above: Performed By: #### 2 [id number] #### [facility] [address] [place] [address] Eosinophils (Bld) [#/Vol] 0.3 E9/L Normal 0.0-0.5 [facility] Comment on above: Performed By: #### 2 [id number] #### [facility] [address] [place] [address] Eosinophils/100 WBC (Bld) 6.1 % Normal 0.0-8.0 [facility] Comment on above: Performed By: #### 2 [id number] #### [facility] [address] [place] [address] Erythrocyte distribution width (RBC) [Ratio] 14.7 % High 10.9-14.2 [facility] Comment on above: Performed By: #### 2 [id number] #### [facility] [address] [place] [address] Hematocrit (Bld) [Volume fraction] 28.2 % Low 34.0-46.0 [facility] Comment on above: Performed By: #### 2 [id number] #### [facility] [address] [place] [address] Hemoglobin (Bld) [Mass/Vol] 9.6 g/dL Low 12.0-16.0 [facility] Comment on above: Performed By: #### 2 [id number] #### [facility] [address] [place] [address] Lymphocytes (Bld) [#/Vol] 1.5 E9/L Normal 1.0-4.0 [facility] Comment on above: Performed By: #### 2 719156 #### [facility] [address] [place] [address] Lymphocytes/100 WBC (Bld) 26.6 % Normal 14.0-50.0 [facility] Comment on above: Performed By: #### 2 [id number] #### [facility] [address] [place] [address] MCH (RBC) [Entitic mass] 31.1 pg Normal 27.0-34.0 [facility] Comment on above: Performed By: #### 2 [id number] #### [facility] [address] [place] [address] MCHC (RBC) [Mass/Vol] 34.2 g/dL Normal 31.4-36.0 [facility] Comment on above: Performed By: #### 2 349250 #### [facility] [address] [place] [address] MCV (RBC) [Entitic vol] 91.1 fL Normal 80.0-100.0 [facility] Comment on above: Performed By: #### 2 759401 #### [facility] [address] [place] [address] Monocytes (Bld) [#/Vol] 0.5 E9/L Normal 0.2-1.0 [facility] Comment on above: Performed By: #### 2 440999 #### [facility] [address] [place] [address] Neutrophils (Bld) [#/Vol] 3.3 E9/L Normal 2.0-7.5 [facility] Comment on above: Performed By: #### 2 [id number] #### [facility] [address] [place] [address] Neutrophils/100 WBC (Bld) 58.3 % Normal 36.0-75.0 [facility] Comment on above: Performed By: #### 2 596960 #### [facility] [address] [place] [address] Platelet 203.0 E9/L Normal 150.0-500.0 [facility] Comment on above: Performed By: #### 2 [id number] #### [facility] [address] [place] [address] Platelet mean volume (Bld) [Entitic vol] 7.5 fL Normal 6.4-10.8 [facility] Comment on above: Performed By: #### 2 [id number] #### [facility] [address] [place] [address] RBC (Bld) [#/Vol] 3.1 E12/L Low 4.3-5.9 [facility] Comment on above: Performed By: #### 2 [id number] #### [facility] [address] [place] [address] WBC corrected for nucl RBC Auto (Bld) [#/Vol] 5.7 E9/L Normal 4.0-11.0 [facility] Comment on above: Performed By: #### 2 764445 #### [facility] [address] [place] [address] CHEMISTRYOrdered By: SYSTEM SYSTEM on 04-05-2024 Anion [...] - 20 Remisol Chem Capillary Glucose POCon 03-08 Glucose [Mass/Vol] 218 mg/dL High 55-99 [facility] Comment on above: Result Comment: Michelle PACHECO Performed By: #### 2 [id number] #### [facility] [address] [place] [address] Glucose [Mass/Vol] 139 mg/dL High 55-99 [facility] Comment on above: Result Comment: Michelle PACHECO Performed By: #### 2 [id number] #### [facility] [address] [place] [address] Glucose [Mass/Vol] 198 mg/dL High 55-99 [facility] Comment on above: Result Comment: Michelle PACHECO Performed By: #### 2 [id number] #### [facility] [address] [place] [address] Glucose [Mass/Vol] 139 mg/dL High 55-99 [facility] Comment on above: Result Comment: Michelle PACHECO Performed By: #### 2 [id number] #### [facility] [address] [place] [address] HEMATOLOGYOrdered By: SYSTEM SYSTEM on 04-05-2024 Basophils/100 [...] [place] e Manageron 04-05-2024 Interdisciplinary Note - Block Setter [place] Interdisciplinary Note - Block Setter [place] CRM to room 306 Patient is awake, alert and oriented. Patient verified PCP, DME and insurance. Patient is from home with her Spouse. [place] Patient is an inpatient. She completed IMM 04/04. Patient is here for fever, PNA. 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 Per patient she has a walker at home. She is current with [facility]. She declined any needs for further DME or SNF stay. She is pending PT/OT. Patient was provided CRM contact, rickie board updated. CRM following CRM will get updates from Akua GRAHAM at 10 AM Patient is on [place] oxygen, she does not wear at home and would need desat or weaned before DC [facility] Comment on above: Result Comment: Elec tronically Signed By: Rosalinda Vogel\.br\Date and Time Signed: 04/05/24 09:15 EDT Interdisciplinary Note - José n 04-05-2024 Interdisciplinary Note - OT Interdisciplinary Note - OT Ot [facility] six clicks score = SNF vs HH services. patient requires Min A w/ standing adls/transfers and mod vc for safety w/ transfer mechanics and OT cord safety. Inpatient OT services to follow daily as pt was modified Ind w/ basic adls/transfers/stand ing adls prior to illness. [facility] Interdisciplinary Note - Soc ial Workeron 04-05-2024 Interdisciplinary Note - Office Services Coordinator Interdisciplinary Note - Office Services Coordinator This SW met with patient, her , and her daughter Irma today to assist patient with completing a POA. She named Irma as her primary agent, with her as the first alternate. She did not wish to complete a LW at this time. SW will remain available. [facility] - Microbiology an d Antimicrobial susceptibilityOrdered By: Jasmin Desai on 04-05-2024 Bacteria identified Respiratory culture Nom (Sput) Scant growth of Normal upper respiratory kaity isolated [facility] Magnesiumon 04-05-2024 Magnesium [Mass/Vol] 1.6 mg/dL Normal 1.3-2.4 [facility] Comment on above: Performed By: #### 2 [id number] #### [facility] [address] [place] [address] No Panel InformationOrdered By: Jasmin Desai on 04-05-2024 GS 2+ epithelial cells Occasional White Blood Cells Occasional Gram Positive Cocci [facility] Procalcitoninon 04-05-2024 Procalcitonin 19.19 ng/mL High .00-.50 [facility] Comment on above: Result Comment: <0.5 ng/mL [...] to 24 hours. Performed By: #### 2 [id number] #### [facility] [address] [place] [address] eGFRon 04-05-2024 eGFR 32 mL/min/1.73 m2 Low >=59 [facility] Comment on above: Performed By: #### 1 [id number] #### [facility] [address] [place] [address] BNPon 04-04-2024 Natriuretic peptide B (Bld) [Mass/Vol] 161 pg/mL High 5-80 [facility] Comment on above: Performed By: #### 1 [id number] #### [facility] [address] [place] [address] CBC w/ Auto Diffon RBC size Nom (Bld) NORMAL Invalid Interpretation Code [facility] Comment on above: Performed By: #### 2 [id number] #### [facility] [address] [place] [address] Basophils/100 WBC (Bld) 0.3 % Normal 0.0-2.0 [facility] Comment on above: Performed By: #### 2 [id number] #### [facility] [address] [place] [address] Basophils/Leukocytes Auto (Bld) [Pure # fraction] 0.0 E9/L Normal 0.0-0.2 [facility] Comment on above: Performed By: #### 2 [id number] #### [facility] [address] [place] [address] Eosinophils (Bld) [#/Vol] 0.1 E9/L Normal 0.0-0.5 [facility] Comment on above: Performed By: #### 2 144515 #### [facility] [address] [place] [address] Eosinophils/100 WBC (Bld) 0.7 % Normal 0.0-8.0 [facility] Comment on above: Performed By: #### 2 601503 #### [facility] [address] [place] [address] Erythrocyte distribution width (RBC) [Ratio] 14.9 % High 10.9-14.2 [facility] Comment on above: Performed By: #### 2 404553 #### [facility] [address] [place] [address] Hematocrit (Bld) [Volume fraction] 34.7 % Normal 34.0-46.0 [facility] Comment on above: Performed By: #### 2 686464 #### [facility] [address] [place] [address] Hemoglobin (Bld) [Mass/Vol] 11.8 g/dL Low 12.0-16.0 [facility] Comment on above: Performed By: #### 2 [id number] #### [facility] [address] [place] [address] Lymphocytes (Bld) [#/Vol] 0.4 E9/L Low 1.0-4.0 [facility] Comment on above: Performed By: #### 2 223857 #### [facility] [address] [place] [address] Lymphocytes/100 WBC (Bld) 4.7 % Low 14.0-50.0 [facility] Comment on above: Performed By: #### 2 [id number] #### [facility] [address] [place] [address] MCH (RBC) [Entitic mass] 30.9 pg Normal 27.0-34.0 [facility] Comment on above: Performed By: #### 2 299398 #### [facility] [address] [place] [address] MCHC (RBC) [Mass/Vol] 33.9 g/dL Normal 31.4-36.0 [facility] Comment on above: Performed By: #### 2 [id number] #### [facility] [address] [place] [address] MCV (RBC) [Entitic vol] 91.1 fL Normal 80.0-100.0 [facility] Comment on above: Performed By: #### 2 [id number] #### [facility] [address] [place] [address] Monocytes (Bld) [#/Vol] 0.2 E9/L Normal 0.2-1.0 [facility] Comment on above: Performed By: #### 2 [id number] #### [facility] [address] [place] [address] Neutrophils (Bld) [#/Vol] 7.5 E9/L Normal 2.0-7.5 [facility] Comment on above: Performed By: #### 2 [id number] #### [facility] [address] [place] [address] Neutrophils/100 WBC (Bld) 91.7 % High 36.0-75.0 [facility] Comment on above: Performed By: #### 2 [id number] #### [facility] [address] [place] [address] Platelet mean volume (Bld) [Entitic vol] 7.0 fL Normal 6.4-10.8 [facility] Comment on above: Performed By: #### 2 [id number] #### [facility] [address] [place] [address] Platelets (Bld) [#/Vol] 224.0 E9/L Normal 150.0-500.0 [facility] Comment on above: Performed By: #### 2 [id number] #### [facility] [address] [place] [address] RBC (Bld) [#/Vol] 3.8 E12/L Low 4.3-5.9 [facility] Comment on above: Performed By: #### 2 [id number] #### [facility] [address] [place] [address] WBC corrected for nucl RBC Auto (Bld) [#/Vol] 8.2 E9/L Normal 4.0-11.0 [facility] Comment on above: Performed By: #### 2 [id number] #### [facility] [address] [place] [address] CHEMISTRYOrdered By: SYSTEM SYSTEM on 04-04-2024 Troponin HS 24.50 pg/mL Normal 10.10 - 27.10 pg/mL [facility] Comment on above: Interpretive Data: T he 95% CI (Confidence Interval) PPV (Positive Predictive Value) for myocardial infarction in females is 38 pg/mL, in males 51 pg/mL. The results should be used in conjunction with clinical conditions of myocardial infarction. (LogicMonitor High Sensitivity Troponin I Instructions For Use, [facility], January 2018) Procalcitonin 16.47 ng/mL High 0.00 [...] back by: MADAI MAE at: 04/04/2024 05:34:11 by:ZARA Interpretive Data: T he 95% CI (Confidence Interval) PPV (Positive Predictive Value) for myocardial infarction in females is 38 pg/mL, in males 51 pg/mL. The results should be used in conjunction with clinical conditions of myocardial infarction. (Access High Sensitivity Troponin I Instructions For Use, [facility], January 2018) Troponin HS 65.10 pg/mL Invalid Interpretation Code 10.10 - 27.10 pg/mL [facility] Comment on above: Result Comment: Crit ical Result Verified by Previous Result Critical Result I_TnIHS:65.1 Called to and read back by: MADAI MAE at: 04/04/2024 03:42 by:ZARA Interpretive Data: T he 95% CI (Confidence Interval) PPV (Positive Predictive Value) for myocardial infarction in females is 38 pg/mL, in males 51 pg/mL. The results should be used in conjunction with clinical conditions of myocardial infarction. (Access High Sensitivity Troponin I Instructions For Use, Manjula Cecilia, January 2018) Albumin [Mass/Vol] 4.0 g/dL Normal [...] 161 pg/mL High 5 - 80 [facility] Albumin [Mass/Vol] 4.0 g/dL Normal 3.3-5.0 [facility] Comment on above: Performed By: #### 2 [id number] #### [facility] [address] [place] [address] Albumin/Globulin (S) [Mass conc ratio] 1.3 Normal 1.1-2.2 [facility] Comment on above: Performed By: #### 2 [id number] #### [facility] [address] [place] [address] ALP [Catalytic activity/Vol] 98 Int._Unit/L Normal 21-98 [facility] Comment on above: Performed By: #### 2 [id number] #### [facility] [address] [place] [address] ALT No additional P-5'-P [Catalytic activity/Vol] 9 Int._Unit/L Normal 6-46 [facility] Comment on above: Performed By: #### 2 [id number] #### [facility] [address] [place] [address] Anion gap [Moles/Vol] 14 mmol/L Normal 6-16 [facility] Comment on above: Performed By: #### 2 [id number] #### [facility] [address] [place] [address] AST [Catalytic activity/Vol] 18 Int._Unit/L Normal 5-43 [facility] Comment on above: Performed By: #### 2 [id number] #### [facility] [address] [place] [address] Bilirubin [Mass/Vol] 0.7 mg/dL Normal 0.0-1.1 [facility] Comment on above: Performed By: #### 2 [id number] #### [facility] [address] [place] [address] Calcium [Mass/Vol] 9.3 mg/dL Normal 8.9-11.1 [facility] Comment on above: Performed By: #### 2 [id number] #### [facility] [address] [place] [address] Chloride [Moles/Vol] 100 mmol/L Low 101-111 [facility] Comment on above: Performed By: #### 2 [id number] #### [facility] [address] [place] [address] CO2 [Moles/Vol] 28 mmol/L Normal 21-31 [facility] Comment on above: Performed By: #### 2 [id number] #### [facility] [address] [place] [address] Creatinine [Mass/Vol] 1.9 mg/dL High 0.5-1.3 [facility] Comment on above: Performed By: #### 2 [id number] #### [facility] [address] [place] [address] Globulin (S) [Mass/Vol] 3.1 g/dL Normal 1.4-4.0 [facility] Comment on above: Performed By: #### 2 [id number] #### [facility] [address] [place] [address] Glucose [Mass/Vol] 232 mg/dL High 55-199 [facility] Comment on above: Performed By: #### 2 [id number] #### [facility] [address] [place] [address] Potassium [Moles/Vol] 3.7 mmol/L Normal 3.5-5.3 [facility] Comment on above: Performed By: #### 2 [id number] #### [facility] [address] [place] [address] Protein [Mass/Vol] 7.1 g/dL Normal 6.0-7.8 [facility] Comment on above: Performed By: #### 2 [id number] #### [facility] [address] [place] [address] Sodium [Moles/Vol] 138 mmol/L Normal 135-145 [facility] Comment on above: Performed By: #### 2 [id number] #### [facility] [address] [place] [address] Urea nitrogen [Mass/Vol] 24 mg/dL High 5-21 [facility] Comment on above: Performed By: #### 2 [id number] #### [facility] [address] [place] [address] Urea nitrogen/Creatinine [Mass ratio] 13 No Units Normal 10-20 [facility] Comment on above: Performed By: #### 2 [id number] #### [facility] [address] [place] [address] COAGULATIONOrdered By: Damion Grigsby on 04-04-2024 aPTT Coag (PPP) [Time] 36.3 s Normal 25.1 - 36.5 second(s) [facility] Comment on above: Interpretive Data: Jerman jennifer 15 days - 4 weeks 1 - [...] [Relative time] 1.09 {INR} Invalid Interpretation Code [facility] Comment on above: Interpretive Data: I NR results are specifically intended to assess patients stabilized on long-term Anticoagulation therapy suggested INR s Less Intensive Anticoagulation 2.0 3.0 Conventional Range 3.0 4.5 PT Coag (PPP) [Time] 12.2 s Normal 9.4 - 1 2.5 second(s) [facility] Auto Coag Comment on [...] were obtained from a study by Jeff [employer], et al. prepared from 1437 samples obtained [...] Oral contrast amount in ml's: [address] [facility] [address] Chest w/o Contraston 03-08 CT Chest w/o Contrast Exam Date/Time: 04/04/2024 [...] MD Transcribed by: SHALOM Technologist: RUTH Normal [facility] Capillary Glucose POCon 03-08 Glucose [Mass/Vol] 158 mg/dL High 55-99 [facility] Comment on above: Result Comment: Michelle erickson RN/ Performed By: #### 2 [id number] #### [facility] [address] [place] [address] Glucose [Mass/Vol] 128 mg/dL High 55-99 [facility] Comment on above: Result Comment: Michelle PACHECO Performed By: #### 2 [id number] #### [facility] [address] [place] [address] Glucose [Mass/Vol] 100 mg/dL High 55-99 [facility] Comment on above: Result Comment: Michelle PACHECO Performed By: #### 2 [id number] #### [facility] [address] [place] [address] Glucose [Mass/Vol] 154 mg/dL High 55-99 [facility] Comment on above: Result Comment: Michelle PACHECO Performed By: #### 2 [id number] #### [facility] [address] [place] [address] Glucose [Mass/Vol] 230 mg/dL High 55-99 [facility] Comment on above: Result Comment: Michelle PACHECO Performed By: #### 2 [id number] #### [facility] [address] [place] [address] ED Clinical Summaryon 2023 ED Clinical Summary ED Clinical Summary [place] [id number] ED Clinical Summary Person Information Name: NADIA PATTERSON [facility] Age: 78 Years : 1945 Sex: Female Language: Argentine PCP: HARPAL HAYES MD Marital Status: Phone: [phone] Visit Id: Visit Reason: Respiratory problem; Cough; Shortness of breath; fever Speciality: Acuity: 1 Enc Type: Inpatient Med Service: Medical Arrival: 04/04/2024 00:25:34 Discharge: LOS: 000 02:51 Checkin: 04/04/2024 00:25:34 Checkout: 04/04/2024 03:16:58 Dispo Type: Admitted as IP to this [facility] EVENTS: Event Name Event [...] Labs Inlab 04/04/2024 03:05:34 04/04/2024 03:05:34 ADDRESS: [address] [place] [id number] PHYS DOC NOTES: MEDICAL INFORMATION: Prescriptions Given: [...] mg sublingu (more content not included)... Normal [facility] ED Note-Physicianon 04-04-20 24 ED Note-Physician ED Note-Physician Basic Information Time Seen: Terry Delvalle DO 04/04/2024 00:30 Chief Complaint states was started [...] and Complexity of Problems Differential Diagnosis: [] [facility] Data External documents reviewed: [] My [...] Therapy PT & PTT Rapid COVID Antigen ([facility]) Sputum Culture Troponin Troponin 1 Hr. Troponin 3 Hr. UA with Cult Rflx XR Chest Single View Medications Administered Given GenDil 100 mL + [id number] [F] 1000 mg, IV Piggyback NS 500 ml Bolus, 500 mL, IV Sodium Chloride 0.9% intravenous solution 50 mL + ceftriaxone additive 1000 mg, IV Piggyback Disposition Plan Patient Discharge Condition Fair Discharge Disposition Admitted Discharge Prescription List Prescriptions No active prescription medications Follow-up No qualifying data available Problem List/Past Medical History Ongoing Cerebrovascular s (more content not included)... Normal [facility] Comment on above: Result Comment: Elec tronically Signed By: Terry Delvalle DO\.br\Date and Time Signed: 04/04/24 02:18 EDT ED Patient Education Noteon 04-04-2024 ED Patient Education Note ED Patient Education Note Normal [facility] ED Patient Summaryon ED Patient Summary ED Patient Summary [place] [id number] Patient Discharge Instructions Person Information Name: NADIA [...] Information Primary Provider: Terry Delvalle DO Advanced Engraving Plate Maker:None The exam and treatment you received in [...] opioids can be used to help relieve eopnlput-du-zxmkhh pain and are often prescribed following a [...] of opioids (more content not included)... Normal [facility] EMS Documentationon 04-04-20 EMS Documentation Report Please click on link to see report Normal [facility] Comment on above: Result Comment: Miss irwin Attachment - attachment exceeds size limitation [email or web address] Can be viewed in source system Extra [place] 04-04-2024 WB Tube Collected Yes Invalid Interpretation Code [facility] Comment on above: Performed By: #### 1 [id number] #### [facility] [address] [place] [address] Ferritinon 04-04-2024 Ferritin [Mass/Vol] 58 ng/mL Normal 11-307 [facility] Comment on above: Performed By: #### 2 [id number] #### [facility] [address] [place] [address] Folateon 04-04-2024 Folate [Mass/Vol] 6.3 ng/mL Low >=6.7 [facility] Comment on above: Performed By: #### 2 [id number] #### [facility] [address] [place] [address] HEMATOLOGYOrdered By: SYSTEM SYSTEM on 04-04-2024 Basophils/100 [...] 11.0 E9/L Remisol Heme Influenza A&B Agon Influenzae A Ag Negative Normal Negative [facility] Comment on above: Performed By: #### 1 [id number] #### [facility] [address] [place] [address] Influenzae B Ag Negative Normal Negative [facility] Comment on above: Result Comment: Test sensitivity and specificity vary for age group, specimen type, antigen types, and prevalence of disease. Test results must be evaluated in conjunction with other clinical data available to the physician. Individuals who received nasally administered Influenza A vaccine may have positive test results up to 3 days after vaccination. Performed By: #### 1 [id number] #### [facility] [address] [place] [address] Interdisciplinary Note - [place] e Manageron 04-04-2024 Interdisciplinary Note - Block [employer]ter [place] Interdisciplinary Note - Block [employer] [place] CRM to room 306 Patient is awake, alert and oriented. Patient verified PCP, DME and insurance. Patient is from home with her Spouse. She will have a ride at [place]. Patient is an inpatient. She completed IMM 04/04. Patient is here for fever, PNA. 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 Per patient she has a walker at home. She is current with [facility]. She declined any needs for further DME or SNF stay. Patient was provided CRM contact, white board updated. CRM following CRM will get updates from [employer] GRAHAM at 10 AM Normal [facility] Comment on above: Result Comment: Elec tronically Signed By: Rosalinda Vogel\.olaf\Date and Time Signed: 04/04/24 10:24 EDT Ironon 04-04-2024 Iron [Mass/Vol] 19 microgram/dL Low 35-153 Fish [facility] Comment on above: Performed By: #### 2 [id number] #### [facility] [address] [place] [address] LDHon 04-04-2024 LDH 318 Int._Unit/L High 93-218 [facility] Comment on above: Performed By: #### 2 [id number] #### [facility] [address] [place] [address] Laboratory - Microbiology an d Antimicrobial susceptibilityOrdered By: Jasmin Desai on 04-04-2024 Bacteria identified Cx Nom (U) 200 cfu/ml Mixed skin contaminants [facility] MRSA DNA DIETER+probe Ql (Unsp spec) MRSA Negative. [facility] Lactic Acidon 04-04-2024 Lactic Acid Lvl 2.1 mmol/L Normal 0.5-2.2 [facility] Comment on above: Performed By: #### 2 [id number] #### [facility] [address] [place] [address] Lactic Acid Lvl 2.7 mmol/L High 0.5-2.2 [facility] Comment on above: Performed By: #### 2 [id number] #### [facility] [address] [place] [address] MICRO OTHER TESTSOrdered By: Damion Grigsby on 04-04-2024 Influenzae A Ag Negative (04/04/24 1:00 AM) Normal Negative [facility] Man Sero Influenzae B Ag Negative 2 (04/04/24 1:00 AM) Normal Negative [facility] Man Sero Comment on [...] NEG Ctl Pass (04/04/24 1:00 AM) Normal [facility] Man Sero Rapid COV Int POS Ctl Pass (04/04/24 1:00 AM) Normal [facility] Man Sero SARS-CoV+SARS-CoV-2 (COVID-19) Ag IA.rapid Ql (Resp) Not Detected 18 (04/04/24 1:00 AM) Normal Not Detected [facility] Comment on above: Interpretive Data: Iraida sourav Linux [employer] Veritor System for Rapid Detection of SARS-CoV-2 [...] or revoked sooner. No Panel InformationOrdered By: [facility] on 04-04-2024 Blood Culture Charcoal No growth at 2 da ys. Final to follow at 7 days. [facility] PT & PTTon 04-04-2024 aPTT Coag (PPP) [Time] 36.3 second(s) Normal 25.1-36.5 [facility] Comment on above: Result Comment: Para [...] - 109.0 sec. Performed By: #### 1 [id number] #### [facility] [address] [place] [address] INR Coag (PPP) [Relative time] 1.09 {INR} Invalid Interpretation Code [facility] Comment on above: Result Comment: INR results are specifically intended to assess patients stabilized on long-term Anticoagulation therapy suggested INR???s ???Less Intensive Anticoagulation??? 2.0 ??? 3.0 Conventional Range 3.0 ??? 4.5 Performed By: #### 1 [id number] #### [facility] [address] [place] [address] PT Coag (PPP) [Time] 12.2 second(s) Normal 9.4-12.5 [facility] Comment on above: Result Comment: 15 [...] no normal ranges. Performed By: #### 1 [id number] #### [facility] [address] [place] [address] Procalcitoninon 04-04-2024 Procalcitonin 16.47 ng/mL High .00-.50 [facility] Comment on above: Result Comment: <0.5 ng/mL [...] to 24 hours. Performed By: #### 2 [id number] #### [facility] [address] [place] [address] Procalcitonin 6.29 ng/mL High .00-.50 [facility] Comment on above: Result Comment: <0.5 ng/mL [...] to 24 hours. Performed By: #### 2 [id number] #### [facility] [address] [place] [address] Rapid COVID Antigen ([facility])on 04-04-2024 Rapid COV Int NEG Ctl Pass Normal [facility] Comment on above: Performed By: #### 2 [id number] #### [facility] [address] [place] [address] Rapid COV Int POS Ctl Pass Normal [facility] Comment on above: Performed By: #### 2 [id number] #### [facility] [address] [place] [address] SARS-CoV+SARS-CoV-2 (COVID-19) Ag IA.rapid Ql (Resp) Not detected Normal Not Detected [facility] Comment on above: Result Comment: The Kaiima??? System for Rapid Detection of SARS-CoV-2 is [...] or revoked sooner. Performed By: #### 2 [id number] #### [facility] [address] [place] [address] Reference Laboratory Testing Ordered By: Generated DomainUser on 04-04-2024 L. pneumophila 1 Ag IA Ql (U) Negative Invalid Interpretation Code Negative [facility] [employer] Comment on above: Result Comment: Pres umptive negative for L. pneumophila serogroup 1 antigen in urine, suggesting no recent or current infection. Legionnaires' disease cannot be ruled out since other serogroups and species may also cause disease. Performed at: [address] [id number] MD Geovanny Chapman Respiratory Panel by PCRon 1 Adenovirus DNA DIETER+non-probe Ql (Nph) Not detected Normal [facility] Comment on above: Result Comment: Test ing was performed using nucleic acid amplification including Influenza A, Influenza A H1, Influenza A H3, Influenza B, RSV A, RSV B, Adenovirus, Human Metapneumovirus, Parainfluenza 1,2,3, and 4, Rhinovirus, Bordetella parapertussis/bronchiseptica, Bordetella holmesii, and Bordetella pertussis. Performed By: #### 1 [id number] #### [facility] [address] [place] [address] B. parapertussis DNA DIETER+probe Ql (Upper resp) Not detected Normal Not Detected [facility] Comment on above: Performed By: #### 1 [id number] #### [facility] [address] [place] [address] B. pertussis DNA DIETER+probe Ql (Upper resp) Not detected Normal Not Detected [facility] Comment on above: Performed By: #### 1 [id number] #### [facility] [address] [place] [address] FLUAV H1 RNA DIETER+non-probe Ql (Nph) Not detected Normal [facility] Comment on above: Performed By: #### 1 [id number] #### [facility] [address] [place] [address] FLUAV H3 RNA DIETER+non-probe Ql (Nph) Not detected Normal [facility] Comment on above: Performed By: #### 1 [id number] #### [facility] [address] [place] [address] FLUAV RNA DIETER+non-probe Ql (Nph) Not detected Normal [facility] Comment on above: Performed By: #### 1 [id number] #### [facility] [address] [place] [address] FLUBV RNA DIETER+non-probe Ql (Nph) Not detected Normal [facility] Comment on above: Performed By: #### 1 [id number] #### [facility] [address] [place] [address] Human Metapneumovirus Not detected Normal [facility] Comment on above: Result Comment: This test result should be correlated with clinical presentations and medical history by a healthcare provider to determine its clinical significance. Performed By: #### 1 [id number] #### [facility] [address] [place] [address] Parainfluenza virus 1 RNA DIETER+non-probe Ql (Nph) Not detected Normal [facility] Comment on above: Performed By: #### 1 [id number] #### [facility] [address] [place] [address] Parainfluenza virus 2 RNA DIETER+non-probe Ql (Nph) Not detected Normal [facility] Comment on above: Performed By: #### 1 [id number] #### [facility] [address] [place] [address] Parainfluenza virus 3 RNA DIETER+non-probe Ql (Nph) Not detected Normal [facility] Comment on above: Performed By: #### 1 [id number] #### [facility] [address] [place] [address] Parainfluenza virus 4 RNA DIETER+non-probe Ql (Nph) Not detected Normal [facility] Comment on above: Performed By: #### 1 [id number] #### [facility] [address] [place] [address] Resp Panel Intrl QC Pass Normal [facility] Comment on above: Performed By: #### 1 [id number] #### [facility] [address] [place] [address] Rhinovirus+Enterovirus RNA DIETER+non-probe Ql (Nph) Not detected Normal [facility] Comment on above: Performed By: #### 1 [id number] #### [facility] [address] [place] [address] RSV RNA DIETER+non-probe Ql (Nph) Not detected Normal [facility] Comment on above: Performed By: #### 1 [id number] #### [facility] [address] [place] [address] Retic Counton 04-04-2024 Reticulocytes/100 RBC (Bld) 1.5 % Normal 0.5-2.2 [facility] Comment on above: Performed By: #### 2 [id number] #### [facility] [address] [place] [address] TIBC Calculatedon 04-04-2024 Iron binding capacity [Mass/Vol] 323 microgram/dL Normal 250-400 [facility] Comment on above: Performed By: #### 1 [id number] #### [facility] [address] [place] [address] Transferrin [Mass/Vol] 231 mg/dL Normal 200-370 [facility] Comment on above: Performed By: #### 1 [id number] #### [facility] [address] [place] [address] TSH With T4fr Reflexon 04-04 TSH Qn 2.22 m[IU]/L Normal 0.34-5.60 [facility] Comment on above: Performed By: #### 1 [id number] #### [facility] [address] [place] [address] Troponinon 04-04-2024 Troponin HS 43.00 pg/mL Abnormal 10.10-27.10 [facility] Comment on above: Result Comment: Crit ical Result Verified by Repeat Analysis Critical Result I_TnIHS:43.0 Called to and read back by: HECTOR MOBLEY at: 04/04/2024 02:00:47 by:BAB The 95% CI (Confidence Interval) PPV (Positive Predictive Value) for myocardial infarction in females is 38 pg/mL, in males 51 pg/mL. The results should be used in conjunction with clinical conditions of myocardial infarction. (Access High Sensitivity Troponin I Instructions For Use, [facility], January 2018) Performed By: #### 2 [id number] #### [facility] [address] [place] [address] Troponin 0 Hr.on 04-04-2024 Troponin HS 24.50 pg/mL Normal 10.10-27.10 [facility] Comment on above: Result Comment: The 95% CI (Confidence Interval) PPV (Positive Predictive Value) for myocardial infarction in females is 38 pg/mL, in males 51 pg/mL. The results should be used in conjunction with clinical conditions of myocardial infarction. (Access High Sensitivity Troponin I Instructions For Use, [facility], January 2018) Performed By: #### 1 [id number] #### [facility] [address] [place] [address] Troponin 1 Hr.on 04-04-2024 Troponin HS 65.10 pg/mL Abnormal 10.10-27.10 [facility] Comment on above: Result Comment: Crit [...] High Sensitivity Troponin I Instructions For Use, [facility], January 2018) Performed By: #### 1 [id number] #### [facility] [address] [place] [address] Troponin 3 Hr.on 04-04-2024 Troponin HS 67.80 pg/mL Abnormal 10.10-27.10 [facility] Comment on above: Result Comment: Crit ical Result Verified by Previous Result Critical Result I_TnIHS:67.8 Called to and read back by: MADAI MAE at: 04/04/2024 05:34:11 by:ZARA The 95% CI (Confidence Interval) PPV (Positive Predictive Value) for myocardial infarction in females is 38 pg/mL, in males 51 pg/mL. The results should be used in conjunction with clinical conditions of myocardial infarction. (LogicMonitor High Sensitivity Troponin I Instructions For Use, [employer], January 2018) Performed By: #### 1 [id number] #### [facility] [address] [place] [address] UA with Cult Rflxon 04-04-20 24 Bilirubin Ql (U) Negative Normal Negative [facility] Comment on above: Performed By: #### 4 [id number] #### [facility] [address] [place] [address] Clarity (U) Turbid Abnormal Clear [facility] Comment on above: Performed By: #### 4 [id number] #### [facility] [address] [place] [address] Color (U) Light-Yellow Normal Yellow [facility] Comment on above: Result Comment: Micr oscopic readings are only performed on those samples that meet specific criteria set forth by [facility]. Performed By: #### 4 [id number] #### [facility] [address] [place] [address] Epithelial cells.squamous Auto (Urine sed) [#/Area] 0-2 Invalid Interpretation Code [facility] Comment on above: Performed By: #### 4 [id number] #### [facility] [address] [place] [address] Glucose Ql (U) Negative Normal Negative [facility] Comment on above: Performed By: #### 4 [id number] #### [facility] [address] [place] [address] Hemoglobin Auto test strip (U) [Mass/Vol] Trace Abnormal Negative [facility] Comment on above: Performed By: #### 4 [id number] #### [facility] [address] [place] [address] Ketones Auto test strip Ql (U) Negative Normal Negative [facility] Comment on above: Performed By: #### 4 [id number] #### [facility] [address] [place] [address] Leukocyte esterase Auto test strip Ql (U) 500 Clint/uL Abnormal Negative [facility] Comment on above: Performed By: #### 4 [id number] #### [facility] [address] [place] [address] Mucus Auto Ql (U) Trace Normal Negative [facility] Comment on above: Performed By: #### 4 [id number] #### [facility] [address] [place] [address] Nitrite Auto test strip Ql (U) 1+ mg/dL Abnormal Negative [facility] Comment on above: Performed By: #### 4 [id number] #### [facility] [address] [place] [address] pH (U) 6.0 [pH] Invalid Interpretation Code 5.0-9.0 [facility] Comment on above: Performed By: #### 4 [id number] #### [facility] [address] [place] [address] Protein Ql (U) Trace Abnormal Negative [facility] Comment on above: Performed By: #### 4 [id number] #### [facility] [address] [place] [address] RBC Ql (U) 4-20 Abnormal 0-3 [facility] Comment on above: Performed By: #### 4 [id number] #### [facility] [address] [place] [address] Specific gravity (U) [Rel density] 1.018 Invalid Interpretation Code 1.005-1.030 [facility] Comment on above: Performed By: #### 4 [id number] #### [facility] [address] [place] [address] Urobilinogen (U) [Mass/Vol] Negative Normal Negative [facility] Comment on above: Performed By: #### 4 [id number] #### [facility] [address] [place] [address] WBC Auto (Urine sed) [#/Area] >75 Abnormal 0-5 [facility] Comment on above: Performed By: #### 4 [id number] #### [facility] [address] [place] [address] Type of Urine collection method Clean Catch Normal [facility] Comment on above: Performed By: #### 4 [id number] #### [facility] [address] [place] [address] URINALYSISOrdered By: Lee Ann forrest on 04-04-2024 Bilirubin Ql (U) Negative Normal Negativemg/ dL [facility] UA Auto SS Clarity (U) Turbid *ABN* (04/04/24 1:08 PM) Invalid Interpretation Code Clear [facility] UA Auto SS Color (U) Light-Yellow 1 (04/04/24 1:08 PM) Normal Yellow [facility] UA Auto SS Comment on above: Interpretive Data: M icroscopic readings are only performed on those samples that meet specific criteria set forth by [facility]. Epithelial cells.squamous Auto (Urine sed) [...] Urobilinogen (U) [Mass/Vol] Negative Normal Negativemg/ dL [facility] UA Auto SS WBC Auto (Urine sed) [#/Area] >75 *ABN* (04/04/24 1:08 PM) Invalid Interpretation Code 0-5 [facility] UA Auto SS URINALYSISOrdered By: Mi Delvalle on 04-04-2024 UA Spec Desc Clean Catch (04/04/24 1:08 PM) Normal [facility] UA Auto SS Vit B12on 04-04-2024 Cobalamin (Vitamin B12) [Mass/Vol] 156 pg/mL Normal 50-1500 [facility] Comment on above: Performed By: #### 2 [id number] #### [facility] [address] [place] [address] XR Chest Single Viewon 04-04 XR Chest [...] mGy = na DAP = na Normal [facility] eGFRon 04-04-2024 eGFR 26 mL/min/1.73 m2 Low >=59 [facility] Comment on above: Performed By: #### 1 [id number] #### [facility] [address] [place] [address] Laboratory - Chemistry and C hemistry - challengeon 01-16-2024 Bilirubin Ql (U) Negative NEGATIVE [facility] Glucose (U) [Mass/Vol] Negative NEGATIVE [facility] Ketones Ql (U) Negative NEGATIVE [facility] pH (U) 6.5 [pH] 5.0-9.0 [facility] Specific gravity (U) [Rel density] 1.015 1.005-1.025 [facility] Urobilinogen Qn (U) 0.2 {Macie'U}/dL 0.2-1.0 [facility] Laboratory - Microbiology an d Antimicrobial susceptibilityon 01-16-2024 Bacteria identified Cx Nom (U) [facility] Laboratory - Specimen inform ationon 01-16-2024 Appearance (U) CLEAR CLEAR [facility] Color (U) LT. YELLOW YELLOW [facility] Laboratory - Urinalysison Leukocyte esterase Test strip Ql (U) TRACE Abnormal NEGATIVE [facility] Mucus Ql (Urine sed) NONE SEEN NONE SEEN [facility] Nitrite Ql (U) Negative NEGATIVE [facility] Protein Ql (U) Negative NEG/TRACE [facility] No Panel Informationon 01-15 Miscellaneous Test Comment See comment [facility] Comment on above: Specimen Source: UCC - Urine,Clean Catch - Urine CC - 200.100 Urine Bacteria TRACE #/HPF Abnormal NONE SEEN [facility] Urine Culture Reflexed YES [facility] Urine Microscopic Review YES [facility] Urine Occult Blood Negative NEGATIVE [facility] Urine Other Casts NONE SEEN #/LPF NONE SEEN [facility] Urine Other Crystals None Seen #/HPF None Seen [facility] Urine RBC NONE SEEN #/HPF 0-2 [facility] Urine Squamous Epithelial Cells RARE #/LPF NONE/RARE [facility] Urine WBC 5-10 #/HPF Abnormal NONE SEEN [facility] Erythrocyte distribution wid th Auto (RBC) [Ratio]on 12-13-2023 Erythrocyte distribution width (RBC) [Ratio] 13.9 % 11.0-15.0 [facility] Estimated glomerular filtrat ion rate (GFR) non- Americanon 12-13-2023 GFR/1.73 sq M.predicted among non-blacks MDRD (S/P/Bld) [Vol rate/Area] 30 mL/min/{1.73_m2} Low >=60 [facility] Hematocrit Auto (Bld) [Volum e fraction]on 12-13-2023 Hematocrit (Bld) [Volume fraction] 36.2 % 36.0-48.0 [facility] Hemoglobin [Mass/volume] in Bloodon 12-13-2023 Hemoglobin (Bld) [Mass/Vol] 11.5 g/dL Low 12.0-16.0 [facility] Iron binding capacity [Mass/ volume] in Serum or Plasmaon 12-13-2023 Iron binding capacity [Mass/Vol] 310.0 ug/dL 250.0-450.0 [facility] Iron saturation [Mass Fracti on] in Serum or Plasmaon 12-13-2023 Iron saturation [Mass fraction] 11.3 % [facility] Laboratory - Chemistry and C hemistry - challengeon 12-13-2023 Albumin [Mass/Vol] 3.3 g/dL Low 3.4-5.[address] [facility] Calcium [Mass/Vol] 9.4 mg/dL 8.5-10.[address] [facility] Chloride [Moles/Vol] 102 mmol/L 98-107 [facility] CO2 [Moles/Vol] 31.0 mmol/L 21.0-32.0 [facility] Creatinine [Mass/Vol] 1.67 mg/dL High 0.55-1.02 [facility] Ferritin [Mass/Vol] 32.0 ng/mL 8.0-252.0 [facility] GFR/1.73 sq M.predicted MDRD (S/P/Bld) [Vol rate/Area] 36 mL/min/{1.73_m2} Low >=60 [facility] Glucose [Mass/Vol] 118 mg/dL High 74-[address] [facility] Iron [Mass/Vol] 35.0 ug/dL Low 50.0-170.0 [facility] Magnesium [Mass/Vol] 1.8 mg/dL 1.8-2.4 [facility] Potassium [Moles/Vol] 4.1 mmol/L 3.5-5.1 [facility] Sodium [Moles/Vol] 140 mmol/L 136-[address] [facility] Urate [Mass/Vol] 7.5 mg/dL High 2.6-6.0 [facility] Urea nitrogen [Mass/Vol] 22.0 mg/dL High 7.0-18.0 [facility] Urea nitrogen/Creatinine [Mass ratio] 13.2 mg/mg [facility] Bilirubin Ql (U) Negative NEGATIVE [facility] Glucose (U) [Mass/Vol] Negative NEGATIVE [facility] Ketones Ql (U) Negative NEGATIVE [facility] pH (U) 6.5 [pH] 5.0-9.0 [facility] Specific gravity (U) [Rel density] 1.010 1.005-1.025 [facility] Urobilinogen Qn (U) 0.2 {Macie'U}/dL 0.2-1.0 [facility] Laboratory - Specimen inform ationon 12-13-2023 Appearance (U) CLEAR CLEAR [facility] Color (U) LT. YELLOW YELLOW [facility] Laboratory - Urinalysison Leukocyte esterase Test strip Ql (U) TRACE Abnormal NEGATIVE [facility] Mucus Ql (Urine sed) NONE SEEN NONE SEEN [facility] Nitrite Ql (U) Negative NEGATIVE [facility] Protein (U) [Mass/Vol] 9.8 mg/dL <=11.9 [facility] Protein Ql (U) Negative NEG/TRACE [facility] Leukocytes [#/volume] correc olamide for nucleated erythrocytes in Blood by Automated counon 12-13-2023 WBC corrected for nucl RBC Auto (Bld) [#/Vol] 6.2 10 3/uL 4.0-11.0 [facility] MCH Auto (RBC) [Entitic mass ]on 12-13-2023 MCH (RBC) [Entitic mass] 29.6 pg 26.7-34.0 [facility] MCHC Auto (RBC) [Mass/Vol]on 12-13-2023 MCHC (RBC) [Mass/Vol] 31.8 g/dL 29.9-35.2 [facility] MCV Auto (RBC) [Entitic vol] on 12-13-2023 MCV (RBC) [Entitic vol] 93.1 fL 81.0-99.0 [facility] No Panel Informationon 12-12 25-Hydroxy Vitamin D Total 75.0 ng/mL [facility] Comment on above: <20 ng/mL Vit D defi cient20-<30 ng/mL Vit D wrayuskbbljf50-227 ng/mL Vit D sufficient>100 ng/mL Potential Toxicity Parathyroid Hormone (Intact) 39 pg/mL 15-65 [facility] Comment on above: Performed at: - [employer] [address] [id number] Director: Jerry Joseph PhD, Phone: [phone] Phosphorus Level 3.5 mg/dL 2.6-4.7 [facility] Urine Bacteria SMALL #/HPF Abnormal NONE SEEN [facility] Urine Occult Blood Negative NEGATIVE [facility] Urine Other Casts NONE SEEN #/LPF NONE SEEN [facility] Urine Other Crystals None Seen #/HPF None Seen [facility] Urine Random Creatinine 27.29 mg/dL 20.0 0-300.0 0 [facility] Urine RBC 0-2 #/HPF 0-2 [facility] Urine Squamous Epithelial Cells FEW #/LPF Abnormal NONE/RARE [facility] Urine WBC 5-10 #/HPF Abnormal NONE SEEN [facility] Platelet mean volume Auto (B ld) [Entitic vol]on 12-13-2023 Platelet mean volume (Bld) [Entitic vol] 8.7 fL Low 9.5-13.5 [facility] Platelets Auto (Bld) [#/Vol] on 12-13-2023 Platelets (Bld) [#/Vol] 293 10 3/uL 150-450 [facility] RBC Auto (Bld) [#/Vol]on RBC (Bld) [#/Vol] 3.89 10 6/uL Low 4.20-5.40 [facility] Serum or plasma anion gap de terminationon 12-13-2023 Anion gap [Moles/Vol] 11.1 mmol/L [facility] Urine protein/creatinine rat ioon 12-13-2023 Protein/Creatinine (U) [Ratio] 0.36 [facility] Discharge Instructionson Discharge Instructions [id number] 2#[id number] Normal [facility] BMPon 08-02-2023 Anion gap [Moles/Vol] 11 mmol/L Normal 6-16 [facility] Comment on above: Performed By: #### 1 [id number], 1783475, 7698099 ####[facility] [address] [place] [address] BUN/Creat Ratio 15 No Units Normal 10-20 [facility] Comment on above: Performed By: #### 1 [id number], 1250943, 1999391 ####[facility] [address] [place] [address] Calcium [Mass/Vol] 9.1 mg/dL Normal 8.9-11.1 [facility] Comment on above: Performed By: #### 1 [id number], 5946612, 7526440 ####[facility] [address] [place] [address] Chloride [Moles/Vol] 106 mmol/L Normal 101-111 [facility] Comment on above: Performed By: #### 1 8117910, 5547015, 6650233 ####[facility] [address] [place] [address] CO2 [Moles/Vol] 29 mmol/L Normal 21-31 [facility] Comment on above: Performed By: #### 1 8271165, 7135586, 2979763 ####[facility] [address] [place] [address] Creatinine [Mass/Vol] 1.5 mg/dL High 0.5-1.3 [facility] Comment on above: Performed By: #### 1 3730494, 2438580, 6676587 ####[facility] [address] [place] [address] Glucose [Mass/Vol] 128 mg/dL Normal 55-199 [facility] Comment on above: Performed By: #### 1 0510693, 1286968, 9614787 ####[address] [address] Potassium [Moles/Vol] 4.0 mmol/L Normal 3.5-5.3 [facility] Comment on above: Performed By: #### 1 5152915, 9187176, 6162452 ####[address] [address] Sodium [Moles/Vol] 142 mmol/L Normal 135-145 [facility] Comment on above: Performed By: #### 1 7070446, 7316214, 1352754 ####[facility] [address] [place] [address] Urea nitrogen [Mass/Vol] 22 mg/dL High 5-21 [facility] Comment on above: Performed By: #### 1 0135613, 1628466, 7239577 ####[facility] [address] [place] [address] CBC w/ Auto Diffon 4 Basophil Absolute 0.1 E9/L Normal 0.0-0.2 [facility] Comment on above: Performed By: #### 1 1861244, 8944761, 0344557 ####[facility] [address] [place] [address] Basophils/100 WBC (Bld) 1.1 % Normal 0.0-2.0 [facility] Comment on above: Performed By: #### 1 4106002, 5017272, 3491373 ####[place] [address] [place] [address] Eos Absolute 0.2 E9/L Normal 0.0-0.5 [facility] Comment on above: Performed By: #### 1 9851015, 4782638, 1320199 ####[address] [address] Eosinophils/100 WBC (Bld) 4.7 % Normal 0.0-8.0 [facility] Comment on above: Performed By: #### 1 7077997, 3355400, 3697783 ####[address] [address] Erythrocyte distribution width (RBC) [Ratio] 14.8 % High 10.9-14.2 [facility] Comment on above: Performed By: #### 1 2832886, 6617626, 6730458 ####[address] [address] Hematocrit (Bld) [Volume fraction] 33.0 % Low 34.0-46.0 [facility] Comment on above: Performed By: #### 1 1464333, 0838296, 4447650 ####[address] [address] Hemoglobin (Bld) [Mass/Vol] 10.7 g/dL Low 12.0-16.0 [facility] Comment on above: Performed By: #### 1 9522532, 8052330, 6578021 ####[address] [address] Lymph Absolute 2.1 E9/L Normal 1.0-4.0 [facility] Comment on above: Performed By: #### 1 7924352, 6936091, 0708650 ####[address] [address] Lymphocytes/100 WBC (Bld) 39.9 % Normal 14.0-50.0 [facility] Comment on above: Performed By: #### 1 3347922, 6963826, 6327211 ####[address] [address] MCH (RBC) [Entitic mass] 29.1 pg Normal 27.0-34.0 [facility] Comment on above: Performed By: #### 1 7530644, 6197001, 3392560 ####[address] [address] MCHC (RBC) [Mass/Vol] 32.4 g/dL Normal 31.4-36.0 [facility] Comment on above: Performed By: #### 1 9189785, 3950186, 2919491 ####[address] [address] MCV (RBC) [Entitic vol] 89.6 fL Normal 80.0-100.0 [facility] Comment on above: Performed By: #### 1 0569912, 4870413, 9512676 ####[address] [address] [place] Absolute 0.4 E9/L Normal 0.2-1.0 [facility] Comment on above: Performed By: #### 1 4851893, 8841269, 2889517 ####[address] [address] Monocytes/100 WBC (Bld) 8.1 % Normal 4.0-14.0 [facility] Comment on above: Performed By: #### 1 6978985, 8957419, 1801139 ####[address] [address] Neutro Absolute 2.4 E9/L Normal 2.0-7.5 [facility] Comment on above: Performed By: #### 1 7337458, 9203330, 6467260 ####[address] [address] Neutro Auto 46.2 % Normal 36.0-75.0 [facility] Comment on above: Performed By: #### 1 2696626, 1432719, 4418266 ####[facility] [address] [place] [address] Platelet 236.0 E9/L Normal 150.0-500.0 [facility] Comment on above: Performed By: #### 1 8280475, 4121568, 4096165 ####[facility] [address] [place] [address] Platelet mean volume (Bld) [Entitic vol] 6.8 fL Normal 6.4-10.8 [facility] Comment on above: Performed By: #### 1 6448535, 7416510, 2432149 ####[facility] [address] [place] [address] RBC 3.7 E12/L Low 4.3-5.9 [facility] Comment on above: Performed By: #### 1 5673770, 2352633, 3931358 ####[facility] [address] [place] [address] WBC 5.3 E9/L Normal 4.0-11.0 [facility] Comment on above: Performed By: #### 1 4426755, 1274518, 0678536 ####[facility] [address] [place] [address] CHEMISTRYOrdered By: SYSTEM SYSTEM on 08-02-2023 Anion [...] Normal 80.0 - 100.0 fL Remisol Heme [place] Absolute 0.4 E9/L Normal 0.2 - 1.0 [...] Inpatient Clinical Summaryon 08-02-2023 Inpatient Clinical Summary [place] [id number] Clinical Summary Person Information: Name: NADIA PATTERSON Age: 78 Years : 1945 Sex: Female PCP: HARPAL HAYES MD Marital Status: Phone: [phone] Race: White Ethnicity: Non- or Language: [place] Visit Id: Visit Reason: Cough; Weakness or fatigue; WEAKNESS Speciality: Acuity: Enc Type: Inpatient Med Service: Medical Arrival: 07/30/2023 20:28:48 Discharge: Dispo Type: Admitted as IP to this [facility] Address: [address] [place] [id number] Provider Notes: Diagnosis: 1:Generalized weakness; 2:Pneumonia; 3:Lactic [...] By Mouth every 6 hours. acetaminophen-hydroc odone ([place] 325 mg-5 mg oral tablet) 1 Tablets [...] Follow up: With: Address: When: FREDDY BRIGGS, HARPAL, [address] [address] 08/09/2023 10:30 AM Comments: Call for followup appointment Patient Education Information: Community-Acquired Pneumonia, Adult, Xueh-ti-[id number] Normal [facility] Inpatient Patient Summaryon 08-02-2023 Inpatient Patient Summary NADIA PATTERSON Let[place]ia :1945 Visit Date:07/30/2023 Inpatient Discharge Instructions Your [...] Strength 500 mg oral tablet) acetaminophen-hydroc odone ([place] 325 mg-5 mg oral tablet) aspirin (aspirin [...] Diagnostic Test Results None Pharmacy Information Other: [facility] Discharge Instructions Please return to ER if symptoms change or worsen. Please take medication as prescribed. Please follow-up with PCP New Follow Up Appointments after Discharge Follow Up with FREDDY BRIGGS, GRETEL ROWAN When: 08/09/2023 10:30 AM EST Where: [address] [place] [phone]- Medications What How Much When Instructions Next Dose New azithromycin (azithromycin 250 mg Tab) 1 Tablets By Mouth Every day start Pickup at [place] [address] 08/03/23 9am New cefuroxime (cefuroxime 500 mg oral tablet) 1 Tablets By Mouth 2 times a day start Pickup at [place] [address] 08/03/23 9am Changed pregabalin 150 Milligram By Mouth 2 times a day 08/02/23 9pm Unchanged acetaminophen (Tylenol Extra Strength 500 mg oral tablet) 2 Tablets By Mouth Every 6 hours as needed Unchanged acetaminophen-hydroc odone ([place] 325 mg-5 mg oral tablet) 1 Tablets [...] day 08/02/23 (more content not included)... Normal [facility] Inpatient Patient Summary [place] [id number] Patient Discharge Instructions PERSON INFORMATION Name: NADIA [...] Follow up: With: Address: When: HARPAL HAYES MD [facility] [address], [place] [id number] 08/09/2023 10:30 AM Comments: Call for followup [...] [facility], [place] [id number], [phone] azithromycin (azithromycin 250 mg Tab) 1 Tablets [...] hours. Last Dose: Next Dose: acetaminophen-hydroc odone ([place] 325 mg-5 mg oral tablet) 1 Tablets [...] By Mouth (more content not included)... Normal [facility] Interdisciplinary Note - [place] e Manageron 08-02-2023 Interdisciplinary Note - Block Setter [place] Pt is awake and alert in bed, previously rounded with Dr. Meier. PCP verified and insurance information reviewed and DME discussed. Contact information provided and white board updated. Pt is set up with [facility] at [place]. P tis from home with and she will transport at [place]. Pt is currently on oxygen 3L, plan to stay in hospital today and wean down oxygen. Pt does not have home oxygen, may need desat prior to [place]. Medicare rights reviewed, CRM following Normal [facility] Comment on above: Result Comment: Elec tronically Signed By: Mei Locke RN\.br\Date and Time Signed: 08/02/23 08:26 EST Other Comment: error Interdisciplinary Note - Block Setter [place] Pt is awake and alert in bed, previously rounded with Dr. Meier. PCP verified and insurance information reviewed and DME discussed. Contact information provided and white board updated. Pt states she is current with [facility], and referral to resource center to verify. Pt is from home with spouse and her daughter or will transport at [place]. Medicare rights reviewed. PT= . CRM following Normal [facility] Comment on above: Result Comment: Elec tronically Signed By: Mei Locke RN\.br\Date and Time Signed: 08/02/23 08:14 EST eGFRon 08-02-2023 eGFR 35 mL/min/1.73 m2 Low >=59 [facility] Comment on above: Order Comment: Order added by Discern Expert. Performed By: #### 1 [id number], 5373618, 8188979 ####[facility] [address] [place] [address] BMPon 08-01-2023 Anion gap [Moles/Vol] 12 mmol/L Normal 6-16 [facility] Comment on above: Performed By: #### 1 8909896, 9013675, 3947134 ####[facility] [address] [place] [address] BUN/Creat Ratio 14 No Units Normal 10-20 [facility] Comment on above: Performed By: #### 1 5467763, 0035477, 5959131 ####[facility] [address] [place] [address] Calcium [Mass/Vol] 9.1 mg/dL Normal 8.9-11.1 [facility] Comment on above: Performed By: #### 1 3367274, 8190000, 6244640 ####[facility] [address] [place] [address] Chloride [Moles/Vol] 103 mmol/L Normal 101-111 [facility] Comment on above: Performed By: #### 1 9824626, 3635283, 1165826 ####[facility] [address] [place] [address] CO2 [Moles/Vol] 31 mmol/L Normal 21-31 [facility] Comment on above: Performed By: #### 1 2204427, 8458382, 7465014 ####[facility] [address] [place] [address] Creatinine [Mass/Vol] 1.3 mg/dL Normal 0.5-1.3 [facility] Comment on above: Performed By: #### 1 7101252, 6473756, 5469134 ####[facility] [address] [place] [address] Glucose [Mass/Vol] 113 mg/dL Normal 55-199 [facility] Comment on above: Performed By: #### 1 5700064, 0573998, 6718056 ####[facility] [address] [place] [address] Potassium [Moles/Vol] 4.0 mmol/L Normal 3.5-5.3 [facility] Comment on above: Performed By: #### 1 4611806, 9065265, 6744140 ####[facility] [address] [place] [address] Sodium [Moles/Vol] 142 mmol/L Normal 135-145 [facility] Comment on above: Performed By: #### 1 5090045, 2456997, 4665188 ####[address] [place] [address] Urea nitrogen [Mass/Vol] 18 mg/dL Normal 5-21 [facility] Comment on above: Performed By: #### 1 4972948, 4483396, 3689850 ####[address] [address] BNPon 08-01-2023 Natriuretic peptide B (Bld) [Mass/Vol] 112 pg/mL High 5-80 [facility] Comment on above: Performed By: #### 1 6649531 ####[address] [address] CBC w/ Auto Diffon 4 Basophil Absolute 0.1 E9/L Normal 0.0-0.2 [facility] Comment on above: Performed By: #### 1 8078155, 4050157, 3365377 ####[address] [address] Basophils/100 WBC (Bld) 1.4 % Normal 0.0-2.0 [facility] Comment on above: Performed By: #### 1 8054582, 9669671, 7654596 ####[address] [address] Eos Absolute 0.3 E9/L Normal 0.0-0.5 [facility] Comment on above: Performed By: #### 1 1961207, 7993151, 2795450 ####[facility] [address] [place] [address] Eosinophils/100 WBC (Bld) 6.1 % Normal 0.0-8.0 [facility] Comment on above: Performed By: #### 1 3796829, 4828215, 8539680 ####[address] [address] Erythrocyte distribution width (RBC) [Ratio] 14.9 % High 10.9-14.2 [facility] Comment on above: Performed By: #### 1 5481116, 4578989, 4491197 ####[address] [address] Hematocrit (Bld) [Volume fraction] 34.0 % Normal 34.0-46.0 [facility] Comment on above: Performed By: #### 1 4135506, 7481859, 8654200 ####[address] [address] Hemoglobin (Bld) [Mass/Vol] 11.3 g/dL Low 12.0-16.0 [facility] Comment on above: Performed By: #### 1 7524130, 9861781, 7282005 ####[address] [address] Lymph Absolute 2.4 E9/L Normal 1.0-4.0 [facility] Comment on above: Performed By: #### 1 5684208, 1388881, 0117830 ####[address] [address] Lymphocytes/100 WBC (Bld) 43.6 % Normal 14.0-50.0 [facility] Comment on above: Performed By: #### 1 0853478, 4240256, 8977410 ####[address] [address] MCH (RBC) [Entitic mass] 29.4 pg Normal 27.0-34.0 [facility] Comment on above: Performed By: #### 1 1491642, 9619477, 5361379 ####[address] [address] MCHC (RBC) [Mass/Vol] 33.2 g/dL Normal 31.4-36.0 [facility] Comment on above: Performed By: #### 1 4809699, 4525506, 3830308 ####[address] [address] MCV (RBC) [Entitic vol] 88.5 fL Normal 80.0-100.0 [facility] Comment on above: Performed By: #### 1 7078196, 5713311, 1651882 ####[address] [address] [place] Absolute 0.4 E9/L Normal 0.2-1.0 [facility] Comment on above: Performed By: #### 1 5086664, 7738747, 4099819 ####[address] [address] Monocytes/100 WBC (Bld) 7.3 % Normal 4.0-14.0 [facility] Comment on above: Performed By: #### 1 7764160, 1175245, 8850177 ####[address] [address] Neutro Absolute 2.2 E9/L Normal 2.0-7.5 [facility] Comment on above: Performed By: #### 1 0347211, 7438264, 2818605 ####[address] [address] Neutro Auto 41.6 % Normal 36.0-75.0 [facility] Comment on above: Performed By: #### 1 8465160, 2293586, 3102188 ####[address] [address] Platelet 251.0 E9/L Normal 150.0-500.0 [facility] Comment on above: Performed By: #### 1 6748700, 5025621, 8979691 ####[address] [address] Platelet mean volume (Bld) [Entitic vol] 7.9 fL Normal 6.4-10.8 [facility] Comment on above: Performed By: #### 1 7974376, 3788671, 6496927 ####[facility] [address] [place] [address] RBC 3.8 E12/L Low 4.3-5.9 [facility] Comment on above: Performed By: #### 1 7989655, 4497581, 9062951 ####[facility] [address] [place] [address] WBC 5.4 E9/L Normal 4.0-11.0 [facility] Comment on above: Performed By: #### 1 8888049, 3687194, 7782485 ####[facility] [address] [place] [address] CHEMISTRYOrdered By: SYSTEM SYSTEM on 08-01-2023 Anion gap [Moles/Vol] 12 mmol/L [...] 112 pg/mL High 5 - 80 pg/mL [facility] HEMATOLOGYOrdered By: SYSTEM SYSTEM on 08-01-2023 Basophil [...] Normal 80.0 - 100.0 fL Remisol Heme [place] Absolute 0.4 E9/L Normal 0.2 - 1.0 [...] Normal 4.0 - 11.0 E9/L Remisol Heme NwqB1xol 08-01-2023 HbA1c (Bld) [Mass fraction] 6.7 % High <=5.9 [facility] Comment on above: Order Comment: Order placed by EKM rule. BCC_HGBA1CLABORDER_[facility] Performed By: #### 7 [id number] ####[facility] [address] [facility] [place] [address] Interdisciplinary Note - [place] e Manageron 08-01-2023 Interdisciplinary Note - Block Setter Gypsum Pt is awake and alert in bed, previously rounded with Dr. Meier. Pt is from home with spouse and he will transport at [facility]. Inpatient status reviewed, form signed and original [...] therapy evals for HH and agreeable to [facility] HH at [place], referral to be sent to resource center, anticipate DC 08/02/23 Normal [facility] Comment on above: Result Comment: Elec tronically Signed By: Cornelia TAVAREZ, Mei\.br\Date and Time Signed: 08/01/23 14:51 EST Message from Medicareon 07-08 Message from Medicare [id number] 20 [id number] #1.00TIFF Normal [facility] Progress Note-Physicianon Progress Note-Physician Assessment/Plan 1. [...] and leg pain requiring a dose of [place]. She states this is not a new [...] 08:50:00) Lymph Auto: 43.6 % (08/01/23 08:50:00) [place] Auto: 7.3 % (08/01/23 08:50:00) Eos Auto: 6.1 % (08/01/23 08:50:00) Basophil Auto: 1.4 % (08/01/23 08:50:00) Neutro Absolute: 2.2 E9/L (08/01/23 08:50:00) Lymph Absolute: 2.4 E9/L (08/01/23 08:50:00) [place] Absolute: 0.4 E9/L (08/01/23 08:50:00) Eos Absolute: 0.3 E9/L (08/01/23 08:50:00) Basophil Absolute: 0.1 E9/L (08/01/23 08:50:00) Attestation I was present with the CHRISTOPHER mejia for the service. I personally verified the history of present illness and performed the physical examination and medical decision making. I have verified all of the CHRISTOPHER mejia's documentation for this encounter. Problem List/Past Medical History Ongoing Cerebrovascular small vessel disease Dementia Diabetes mellitus with polyneuropathy Fibromyalgia Hyperlipemia, mixed Hypothyroid Left wrist pain Recurrent falls UTI (urinary tract infection) Vitamin D deficiency VRE (vancomycin resistant enterococcus) culture positive Weakness (more content not included)... Normal [facility] Comment on above: Result Comment: Elec tronically Signed By: Saira Lawler\.br\Date and Time Signed: 08/01/23 09:26 EST\.br\Electronically Co-Signed By: Hector Meier DO\.br\Date and Time Co-Signed: 08/01/23 14:28 EST eGFRon 08-01-2023 eGFR 42 mL/min/1.73 m2 Low >=59 [facility] Comment on above: Order Comment: Order added by Discern Expert. Performed By: #### 1 5702791, 5396176, 9454250 ####[facility] [address] [place] [address] CHEMISTRYOrdered By: Cecelia Carrillo on 07-31-2023 HbA1c (Bld) [Mass fraction] 6.7 % High <=5.9% [facility] ChemAutoSS CHEMISTRYOrdered By: SYSTEM [...] Sensitivity Troponin I Instructions For Use, Manjula Jeannette, January 2018) Troponin 3.50 pg/mL Low 10.10 - 27.10 pg/mL [facility] Comment on above: Interpretive Data: T he 95% CI (Confidence Interval) PPV (Positive Predictive Value) for myocardial infarction in females is 38 pg/mL, in males 51 pg/mL. The results should be used in conjunction with clinical conditions of myocardial infarction. (Access High Sensitivity Troponin I Instructions For Use, [employer], January 2018) Lactic Acid Lvl 2.1 mmol/L [...] High Sensitivity Troponin I Instructions For Use, [employer], January 2018) ED Clinical Summaryon 2023 ED Clinical Summary [place] [id number] ED Clinical Summary Person Information Name: NADIA PATTERSON [facility] Age: 78 Years : 1945 Sex: Female Language: Argentine PCP: HARPAL HAYES MD Marital Status: Phone: [phone] Visit Id: Visit Reason: Cough; Weakness or fatigue; WEAKNESS Speciality: Acuity: 3 Enc Type: Inpatient Med Service: Emergency Arrival: 07/30/2023 20:28:48 Discharge: LOS: 000 14:42 Checkin: 07/30/2023 20:28:48 Checkout: 07/31/2023 11:10:22 Dispo Type: Admitted as IP to this Hosp EVENTS: Event Name Event Status Request Date/Time [...] 03:21:59 Meds Admin Request 07/31/2023 03:23:59 ADDRESS: [address] [place] [id number] PHYS DOC NOTES: MEDICAL INFORMATION: Prescriptions Given: Medications to Continue with No Changes Other Medications acetaminophen (Tylenol Extra Strength 500 mg oral tablet) 2 Tablets By Mouth every 6 hours. acetaminophen-hydroc odone ([place] 325 mg-5 mg oral tablet) 1 Tablets [...] chest pain. (more content not included)... Normal [facility] ED Note-Physicianon 07-31-19 ED Note-Physician Basic Information Time Seen: Mariela Birch PA-C 07/30/2023 21:53 Chief Complaint weakness for 1 [...] very tired lately. They talked to her interior design program chair who advised cutting back on her trazodone [...] And for hospitalization Discussions with other providers: Attending Frank Appropriate for: Hospitalization Attending note: Case discussed [...] data avail (more content not included)... Normal [facility] Comment on above: Result Comment: Elec tronically Signed By: Mariela Birch PA-C\.br\Date and Time Signed: 07/30/23 23:16 EST\.br\Electronically Co-Signed By: Michele Marie DO\.br\Date and Time Co-Signed: 07/31/23 01:47 EST ED Patient Education Noteon 07-31-2023 ED Patient Education Note Normal [facility] ED Patient Summaryon 024 ED Patient Summary [place] [id number] Patient Discharge Instructions Person Information Name: NADIA PATTERSON Age: 78 Years Arrival Date: 07/30/2023 20:28:48 Discharge Diagnosis: 1:Generalized weakness; 2:Pneumonia; 3:Lactic acidosis; 4:Fibromyalgia; 5:Diabetes mellitus with polyneuropathy; 6:Hypothyroid; 7:CKD (chronic kidney disease) stage 3, GFR 30-59 ml/min; 8:Dementia Primary Care Physician: HARPAL HAYES MD Provider Information Primary Provider: Michele Marie DO Advanced Engraving Plate Maker:Mariela Birch PA-C The exam and treatment you [...] opioids can be used to help relieve rbtwqolh-qy-xinlye pain and are often prescribed following a [...] be struggling with addiction, tell your health hearing care practitioner and ask for guidance or call [facility]S National Helpline at [phone]. (more content not included)... Normal [facility] Influenza A&B Agon Influenzae A Ag Negative Normal Negative [facility] Comment on above: Performed By: #### 1 [id number], [id number] ####[facility] [address] [place] [address] Influenzae B Ag Negative Normal Negative [facility] Comment on above: Result Comment: Test sensitivity and specificity vary for age group, specimen type, antigen types, and prevalence of disease. Test results must be evaluated in conjunction with other clinical data available to the physician. Individuals who received nasally administered Influenza A vaccine may have positive test results up to 3 days after vaccination. Performed By: #### 1 [id number], [id number] ####[facility] [address] [place] [address] Interdisciplinary Note - PTo n 07-31-2023 Interdisciplinary Note - PT Order for ED, pt to be transferred; will attempt PT eval on 08/01/23. Normal [facility] Lactic Acidon 07-31-2023 Lactic Acid Lvl 2.1 mmol/L Normal 0.5-2.2 [facility] Comment on above: Order Comment: Order added by EKS Rule. (FT_LACTIC_ACID_REFLEX) Adds reflex Lactic Acid 4 hours after initial if result is greater than or equal to 2.0. Performed By: #### 2 1127[address] ####[facility] [address] [place] [address] MICRO OTHER TESTSOrdered By: Damion Grigsby on 07-31-2023 Influenzae A Ag Negative (07/31/23 3:32 AM) Normal Negative [facility] Man Sero Influenzae B Ag Negative 1 (07/31/23 3:32 AM) Normal Negative [facility] Comment on above: Interpretive Data: T [...] NEG Ctl Pass (07/31/23 3:32 AM) Normal [facility] S[facility] Rapid COV Int POS Ctl Pass (07/31/23 3:32 AM) Normal [facility] S[facility] SARS-CoV+SARS-CoV-2 (COVID-19) Ag IA.rapid Ql (Resp) Not Detected 6 (07/31/23 3:32 AM) Normal Not Detected [facility] Comment on above: Interpretive Data: T he Linux Networx Veritor System for Rapid Detection of SARS-CoV-2 [...] call Irma twice with no answer. Normal [facility] Rapid COVID Antigen ([facility])on 07-31-2023 Rapid COV Int NEG Ctl Pass Normal [facility] Comment on above: Performed By: #### 1 5870346, [id number] ####[facility] [address] [place] [address] Rapid COV Int POS Ctl Pass Normal [facility] Comment on above: Performed By: #### 1 6773807, [id number] ####[facility] [address] [place] [address] SARS-CoV+SARS-CoV-2 (COVID-19) Ag IA.rapid Ql (Resp) Not detected Normal Not Detected [facility] Comment on above: Result Comment: The Linux Networx Veritor? System for Rapid Detection of SARS-CoV-2 [...] or revoked sooner. Performed By: #### 1 8061487, [id number] ####[facility] [address] [place] [address] Troponin 3 Hr.on 07-31-2023 Troponin 3.60 pg/mL Low 10.10-27.10 [facility] Comment on above: Result Comment: The 95% CI (Confidence Interval) PPV (Positive Predictive Value) for myocardial infarction in females is 38 pg/mL, in males 51 pg/mL. The results should be used in conjunction with clinical conditions of myocardial infarction. (Access High Sensitivity Troponin I Instructions For Use, Manjula Jeannette, January 2018) Performed By: #### 1 [id number] ####[facility] [address] [place] [address] Troponin 6 Hr.on 07-31-2023 Troponin 3.50 pg/mL Low 10.10-27.10 [facility] Comment on above: Result Comment: The 95% CI (Confidence Interval) PPV (Positive Predictive Value) for myocardial infarction in females is 38 pg/mL, in males 51 pg/mL. The results should be used in conjunction with clinical conditions of myocardial infarction. (LogicMonitor High Sensitivity Troponin I Instructions For Use, [facility], January 2018) Performed By: #### 1 3171592 ####[facility] [address] [place] [address] Troponin 9 Hr.on 07-31-2023 Troponin 4.50 pg/mL Low 10.10-27.10 [facility] Comment on above: Result Comment: The 95% CI (Confidence Interval) PPV (Positive Predictive Value) for myocardial infarction in females is 38 pg/mL, in males 51 pg/mL. The results should be used in conjunction with clinical conditions of myocardial infarction. (LogicMonitor High Sensitivity Troponin I Instructions For Use, [facility], January 2018) Performed By: #### 1 [id number] ####[address] [place] [address] XR Chest Single Viewon 07-31 XR Chest Single View Exam Date/Time: 07/30/2023 21:01 EST Reason for Exam: Shortness of breath (SOB) Report [facility] [phone] IMPRESSION: There are no acute cardiopulmonary changes. [...] mGy = na DAP = na Normal [facility] BMPon 07-30-2023 Anion gap [Moles/Vol] 15 mmol/L Normal 6-16 [facility] Comment on above: Performed By: #### 2 728707, 18247183, 5237166, 9342603, 4028100, 15267444, 14711165 ####[facility] [address] [place] [address] BUN/Creat Ratio 13 No Units Normal 10-20 [facility] Comment on above: Performed By: #### 2 995736, 04703186, 9308431, 6759978, 1252282, 44080717, 90177961 ####[facility] [address] [place] [address] Calcium [Mass/Vol] 10.0 mg/dL Normal 8.9-11.1 [facility] Comment on above: Performed By: #### 2 770150, 44152573, 9875162, 3517447, 7249159, 00660519, 24841468 ####[facility] [address] [place] [address] Chloride [Moles/Vol] 101 mmol/L Normal 101-111 [facility] Comment on above: Performed By: #### 2 731275, 86961079, 7298237, 7058118, 6021097, 31721655, 08609941 ####[facility] [address] [place] [address] CO2 [Moles/Vol] 31 mmol/L Normal 21-31 [facility] Comment on above: Performed By: #### 2 955495, 47335104, 4785688, 9871581, 0758473, 33853861, 54403100 ####[facility] [address] [place] [address] Creatinine [Mass/Vol] 1.5 mg/dL High 0.5-1.3 [facility] Comment on above: Performed By: #### 2 077922, 18430708, 5313433, 6638973, 7531326, 24838622, 07611035 ####[facility] [address] [place] [address] Glucose [Mass/Vol] 140 mg/dL Normal 55-199 [facility] Comment on above: Performed By: #### 2 458783, 34673488, 8662914, 3927384, 9530511, 53080880, 19377592 ####[facility] [address] [place] [address] Potassium [Moles/Vol] 4.0 mmol/L Normal 3.5-5.3 [facility] Comment on above: Performed By: #### 2 988736, 56129250, 7960101, 0362671, 1081511, 65918757, 39031052 ####[address] [address] Sodium [Moles/Vol] 143 mmol/L Normal 135-145 [facility] Comment on above: Performed By: #### 2 128600, 88345764, 9620665, 0320978, 2320106, 32136246, 97474785 ####[address] [address] Urea nitrogen [Mass/Vol] 20 mg/dL Normal 5-21 [facility] Comment on above: Performed By: #### 2 903698, 75022528, 7514995, 5416168, 2455098, 48518809, 53246837 ####[address] [address] BNPon 07-30-2023 Int Ctr BNP Pass Normal [facility] Comment on above: Performed By: #### 2 642660, 99242076, 2830138, 7729968, 1923180, 79902196, 42246108 ####[address] [address] Natriuretic peptide B (Bld) [Mass/Vol] 114 pg/mL High 5-80 [facility] Comment on above: Performed By: #### 2 165060, 44444227, 1291478, 4108043, 4197204, 81634634, 47916120 ####[address] [address] CBC w/ Auto Diffon 4 Basophil Absolute 0.0 E9/L Normal 0.0-0.2 [facility] Comment on above: Performed By: #### 2 174483, 24809657, 0933849, 8823248, 0931262, 18686205, 90911421 ####[address] [place] [address] Basophils/100 WBC (Bld) 0.9 % Normal 0.0-2.0 [facility] Comment on above: Performed By: #### 2 014377, 27062409, 0954750, 1059018, 5094648, 54218685, 43992767 ####[address] [place] [address] Eos Absolute 0.2 E9/L Normal 0.0-0.5 [facility] Comment on above: Performed By: #### 2 150672, 12747057, 0317386, 3844527, 3205452, 99839093, 83480089 ####[address] [address] Eosinophils/100 WBC (Bld) 4.1 % Normal 0.0-8.0 [facility] Comment on above: Performed By: #### 2 544715, 53785307, 0053044, 8195968, 2209815, 79761020, 89186536 ####[address] [address] Erythrocyte distribution width (RBC) [Ratio] 14.7 % High 10.9-14.2 [facility] Comment on above: Performed By: #### 2 872764, 95334973, 2693343, 0803282, 0341311, 27096054, 17018818 ####[address] [address] Hematocrit (Bld) [Volume fraction] 38.0 % Normal 34.0-46.0 [facility] Comment on above: Performed By: #### 2 515683, 45969525, 7154822, 3055334, 1698650, 84482288, 85474836 ####[facility] [address] [place] [address] Hemoglobin (Bld) [Mass/Vol] 12.5 g/dL Normal 12.0-16.0 [facility] Comment on above: Performed By: #### 2 877199, 61352210, 6116871, 2870375, 5296121, 34021292, 90619661 ####[facility] [address] [place] [address] Lymph Absolute 1.7 E9/L Normal 1.0-4.0 [facility] Comment on above: Performed By: #### 2 241111, 33537113, 3600132, 8978306, 1625087, 82329105, 69050132 ####[address] [address] Lymphocytes/100 WBC (Bld) 30.5 % Normal 14.0-50.0 [facility] Comment on above: Performed By: #### 2 457874, 52295667, 4717524, 0422539, 8599483, 81357308, 38305570 ####[address] [address] MCH (RBC) [Entitic mass] 29.2 pg Normal 27.0-34.0 [facility] Comment on above: Performed By: #### 2 407270, 23941595, 8642836, 7785310, 9604046, 80766074, 32286812 ####[address] [address] MCHC (RBC) [Mass/Vol] 32.9 g/dL Normal 31.4-36.0 [facility] Comment on above: Performed By: #### 2 663206, 20795478, 6201257, 1671445, 8229788, 11981576, 69754955 ####[address] [address] MCV (RBC) [Entitic vol] 89.0 fL Normal 80.0-100.0 [facility] Comment on above: Performed By: #### 2 836950, 21655915, 2461335, 7670782, 1272505, 51382640, 83703725 ####[facility] [address] [place] [address] [place] Absolute 0.4 E9/L Normal 0.2-1.0 [facility] Comment on above: Performed By: #### 2 538167, 52277605, 8066779, 0251859, 5424505, 77678260, 37629829 ####[address] [place] [address] Monocytes/100 WBC (Bld) 7.8 % Normal 4.0-14.0 [facility] Comment on above: Performed By: #### 2 034792, 73543905, 1475347, 5000670, 5176034, 03345705, 58570501 ####[address] [address] Neutro Absolute 3.2 E9/L Normal 2.0-7.5 [facility] Comment on above: Performed By: #### 2 546350, 02128470, 4987341, 5330322, 5394570, 30525680, 30742594 ####[address] [address] Neutro Auto 56.7 % Normal 36.0-75.0 [facility] Comment on above: Performed By: #### 2 645061, 03982945, 0145604, 6300647, 4854727, 11337576, 58459014 ####[place] [place] [address] Platelet 215.0 E9/L Normal 150.0-500.0 [facility] Comment on above: Performed By: #### 2 547392, 60704608, 6971397, 7706679, 5263852, 14920142, 75229338 ####[place] [address] [place] [address] Platelet mean volume (Bld) [Entitic vol] 7.1 fL Normal 6.4-10.8 [facility] Comment on above: Performed By: #### 2 756299, 93089560, 8487360, 1455823, 9503457, 75137004, 38059300 ####[facility] [address] [place] [address] RBC 4.3 E12/L Normal 4.3-5.9 [facility] Comment on above: Performed By: #### 2 966459, 56915766, 6129473, 9616231, 7472448, 46471419, 11319167 ####[facility] [address] [place] [address] WBC 5.6 E9/L Normal 4.0-11.0 [facility] Comment on above: Performed By: #### 2 411998, 63016115, 6867058, 8229591, 3296116, 47425150, 62015685 ####[facility] [address] [place] [address] CHEMISTRYOrdered By: SYSTEM SYSTEM on 07-30-2023 Albumin [...] 114 pg/mL High 5 - 80 pg/mL [facility] HemeManSS CHEMISTRYOrdered By: Yane ROP User on 07-30-2023 Glucose [Mass/Vol] 127 mg/dL High 55 - 99 mg/dL [facility] POC Subsection Comment on above: Result Comment: Michelle PACHECO POC Device SN [id number] [facility] POC Subsection POC User ID [id number] [address] [facility] POC Subsection POC Username DREAD CHURCH Invalid Interpretation Code [facility] POC Subsection Capillary Glucose POCon 07-08 Glucose [Mass/Vol] 127 mg/dL High 55-99 [facility] Comment on above: Result Comment: Michelle PACHECO Performed By: #### 2 [id number] ####[facility] [address] [place] [address] Consent for Treatmenton 07-08 Consent for Treatment [id number] #1.00TIFF Normal [facility] HEMATOLOGYOrdered By: SYSTEM SYSTEM on 07-30-2023 Basophil [...] Normal 80.0 - 100.0 fL Remisol Heme [place] Absolute 0.4 E9/L Normal 0.2 - 1.0 [...] 07-30-2023 Albumin [Mass/Vol] 4.1 g/dL Normal 3.3-5.0 [facility] Comment on above: Performed By: #### 2 684002, 48103394, 0369557, 6849469, 1394004, 08541364, 19480670 ####[facility] [address] [place] [address] Albumin/Globulin [Mass ratio] 1.4 {ratio} Normal 1.1-2.2 [facility] Comment on above: Performed By: #### 2 080681, 55780277, 8355165, 1722388, 5403835, 35317711, 13130816 ####[facility] [address] [place] [address] Alk Phos 83 Int._Unit/L Normal 21-98 [facility] Comment on above: Performed By: #### 2 [id number], [id number], 1586832, 9672397, 6200877, 28469778, [id number] ####[facility] [address] [place] [address] ALT 9 Int._Unit/L Normal 6-46 [facility] Comment on above: Performed By: #### 2 108072, [id number], 4438826, 1809777, 2639589, 71130223, [id number] ####[facility] [address] [place] [address] AST 15 Int._Unit/L Normal 5-43 [facility] Comment on above: Performed By: #### 2 267316, 68681180, 8054498, 7984646, 1375443, 47807316, 42056173 ####[facility] [address] [place] [address] Bili Direct 0.1 mg/dL Normal 0.0-0.4 [facility] Comment on above: Performed By: #### 2 242112, 17957012, 7363694, 4045951, 2715420, 65883099, 07792533 ####[facility] [address] [place] [address] Bili Indirect 0.3 mg/dL Normal 0.1-0.9 [facility] Comment on above: Performed By: #### 2 738517, 68649772, 2316863, 4540997, 0694795, 00793975, 97009525 ####[facility] [address] [place] [address] Bili Total 0.4 mg/dL Normal 0.0-1.1 [facility] Comment on above: Performed By: #### 2 344631, 20681428, 9550080, 8310082, 6850488, 08603961, 09198738 ####[facility] [address] [place] [address] Globulin (S) [Mass/Vol] 3.0 g/dL Normal 1.4-4.0 [facility] Comment on above: Performed By: #### 2 055758, 05118408, 8908518, 5240385, 1136659, 47706475, 80640132 ####[facility] [address] [place] [address] Protein [Mass/Vol] 7.1 g/dL Normal 6.0-7.8 [facility] Comment on above: Performed By: #### 2 324036, 23228963, 8736770, 9583935, 6491721, 97813056, 21241038 ####[facility] [address] [place] [address] Lactic Acidon 07-30-2023 Lactic Acid Lvl 2.4 mmol/L High 0.5-2.2 [facility] Comment on above: Performed By: #### 2 051276, 85738291, 1207750, 4881297, 2941743, 26413922, 92960861 ####[facility] [address] [place] [address] No Panel InformationOrdered By: CARLTONSERJOANNA MICROBIOLOGY on 07-30-2023 Blood Culture Charcoal No growth at 2 da ys. Final to follow at 7 days. [facility] Pre-Arrival Noteon Pre-Arrival Note Pre-Arrival Summary Name: , BELEN Current Date: 07/30/2023 20:30:20 EST Gender: Female Date of : Age: 78 Pre-Arrival Type: EMS ETA: 07/30/2023 20:45:00 EST Primary Care Physician: Presenting Problem: weakness/trouble walking Pre-Arrival User: Dread Castañeda RN Referring Source: Location: Completion Date/Time: 07/30/2023 00:00:00 [facility] Emergency Department Pre-Hospital Report Form Vital Signs: HR 81 BP 109/68 RR 16 98% RA BG 159 98.7 F Pre-Hospital Report: A/Ox4 feeling generally ill, weakness and trouble walking. Hx fibromyalgia, DM, and kidney issues Treatment in Route: failed IV access Response to Treatment: Misc. Issues: Normal [facility] Troponin 0 Hr.on 07-30-2023 Troponin 3.50 pg/mL Low 10.10-27.10 [facility] Comment on above: Result Comment: The 95% CI (Confidence Interval) PPV (Positive Predictive Value) for myocardial infarction in females is 38 pg/mL, in males 51 pg/mL. The results should be used in conjunction with clinical conditions of myocardial infarction. (Access High Sensitivity Troponin I Instructions For Use, Manjula Jeannette, January 2018) Performed By: #### 2 362988, 84097998, 8348362, 2117219, 6506199, 60295302, 72203717 ####[facility] [address] [place] [address] UA With Cult Reflexon 2023 Bacteria LM Ql (Urine sed) TRACE Normal Trace [facility] Comment on above: Performed By: #### 1 [id number] ####[address] [address] Bilirubin Ql (U) Negative Normal Negative [facility] Comment on above: Performed By: #### 1 7508673 ####[facility] [address] [place] [address] Clarity (U) CLEAR Normal Clear [facility] Comment on above: Performed By: #### 1 7358684 ####[address] [address] Color (U) YELLOW Normal Yellow [facility] Comment on above: Performed By: #### 1 5633324 ####[address] [address] Epithelial cells.squamous LM.HPF (Urine sed) [#/Area] 0-2 Normal 0-2 [facility] Comment on above: Performed By: #### 1 4538422 ####[facility] [address] [place] [address] Glucose Test strip (U) [Mass/Vol] Negative Normal Negative [facility] Comment on above: Performed By: #### 1 1024035 ####[facility] [address] [place] [address] Hemoglobin Ql (U) Negative Normal Negative [facility] Comment on above: Performed By: #### 1 5035435 ####[address] [address] Ketones (U) [Mass/Vol] Negative Normal Negative [facility] Comment on above: Performed By: #### 1 4813465 ####[address] [address] [place].plasma/[place].R BC (Bld) [Mass ratio] 0-3 Normal 0-3 [facility] Comment on above: Performed By: #### 1 3256559 ####[facility] [address] [place] [address] Nitrite Ql (U) Negative Normal Negative [facility] Comment on above: Performed By: #### 1 7609193 ####[address] [address] pH (U) 7.0 [pH] Invalid Interpretation Code 5.0-9.0 [facility] Comment on above: Performed By: #### 1 0324486 ####[address] [address] Protein (U) [Mass/Vol] Negative Normal Negative [facility] Comment on above: Performed By: #### 1 9029235 ####[address] [address] Specific gravity (U) [Rel density] 1.015 Invalid Interpretation Code 1.005-1.030 [facility] Comment on above: Performed By: #### 1 3080839 ####[facility] [address] [place] [address] Type of Urine collection method Clean Catch Normal [facility] Comment on above: Performed By: #### 1 8833849 ####[address] [address] Urobilinogen Qn (U) 0.2 {Macie'U}/dL Normal 0.0-1.0 [facility] Comment on above: Performed By: #### 1 8886459 ####[facility] [address] [place] [address] WBC Auto Ql (U) Negative Normal Negative [facility] Comment on above: Performed By: #### 1 7230418 ####[address] [address] WBC LM.HPF (Urine sed) [#/Area] 0-5 Normal 0-5 [facility] Comment on above: Performed By: #### 1 1514624 ####[facility] [address] [place] [address] URINALYSISOrdered By: Damion Grigsby on 07-30-2023 Bacteria [...] PM) Normal Negative [facility] UA Auto SS [place].plasma/[place].R BC (Bld) [Mass ratio] 0-3 /HPF Normal [...] [facility] UA Auto SS Urobilinogen Qn (U) 0.0626084 {Macie'U}/dL Normal 0.0 - 1.0 EU/dL [facility] UA Auto SS WBC Auto Ql (U) Negative (07/30/23 10:50 PM) Normal Negative [facility] UA Auto SS WBC LM.HPF (Urine sed) [#/Area] 0-5 /HPF Normal 0-5/HPF [facility] UA Auto SS eGFRon 07-30-2023 eGFR 35 mL/min/1.73 m2 Low >=59 [facility] Comment on above: Order Comment: Order added by Discern Expert. Performed By: #### 2 583943, 12256819, 6882087, 1295964, 4374274, 50046217, 95155462 ####[facility] [address] [place] [address] CHEMISTRYOrdered By: Lab ROP User on 12-17-2022 Glucose [Mass/Vol] 119 mg/dL High 55 - 99 mg/dL [facility] POC Subsection Comment on above: Result Comment: Yvonne jl Meter POC Device SN [id number] Invalid Interpretation Code [facility] POC Subsection POC User ID [id number] Invalid Interpretation Code [facility] POC Subsection POC Username EJ SIMS Invalid Interpretation Code [facility] POC Subsection CHEMISTRYOrdered By: Lab ROP User on 12-16-2022 Glucose [Mass/Vol] 155 mg/dL High 55 - 99 mg/dL [facility] POC Subsection Comment on above: Result Comment: Yvonne jl Meter POC Device SN [id number] Invalid Interpretation Code FT POC Subsection POC User ID [id number] Invalid Interpretation Code [facility] POC Subsection POC Username EJ SIMS Invalid Interpretation Code [facility] POC Subsection Glucose [Mass/Vol] 127 mg/dL High 55 - 99 mg/dL [facility] POC Subsection Comment on above: Result Comment: Yvonne jl Meter POC Device SN [id number] Invalid Interpretation Code [facility] POC Subsection POC User ID [id number] Invalid Interpretation Code [facility] POC Subsection POC Username OUSMANE HWANG Invalid Interpretation Code [facility] POC Subsection CHEMISTRYOrdered By: Kerry Maravilla on 12-16-2022 Albumin Elph (U) [Mass fraction] mg/dL Invalid Interpretation Code [facility] Remisol Creatinine (U) [Mass/Vol] 44.5 mg/dL Invalid Interpretation Code [facility] Remisol U Prot/Creat Ratio UTC Invalid Interpretation Code 0.00 - 200.00 [facility] Remisol CHEMISTRYOrdered By: SYSTEM SYSTEM on 12-16-2022 [...] [facility] Remisol HEMATOLOGYOrdered By: Leanne Carrillo on 12-16-2022 Erythrocyte distribution width (RBC) [Ratio] 14.4 % High 10.9 - 14.2 % [facility] Hematocrit (Bld) [Volume fraction] 30.9 % Low 34.0 - 46.0 % [facility] Hemoglobin (Bld) [Mass/Vol] 10.4 g/dL Low 12.0 - 16.0 gm/dL [facility] HemeAutoSS MCH (RBC) [Entitic mass] 30.7 pg Normal 27. 0 - 34.0 pg [facility] MCHC (RBC) [Mass/Vol] 33.7 g/dL Normal 31.4 - 36.0 gm/dL [facility] HemeAutoSS MCV (RBC) [Entitic vol] 90.9 fL Normal 80.0 - 100.[address] [facility]eAuto[facility] Platelet mean volume (Bld) [Entitic vol] 7.0 fL Normal 6.4 - 10.[address] [facility] HemeAutoSS Platelets (Bld) [#/Vol] 264.0 E9/L Normal 150. 0 - 500.0 E9/L [facility] RBC (Bld) [#/Vol] 3.4 E12/L Low 4.3 - 5.9 E12/L [facility] HemeAutoSS WBC corrected for nucl RBC Auto (Bld) [#/Vol] 4.8 E9/L Normal 4.0 - 11.0 E9/L [facility] HemeAutoSS Laboratory - Microbiology an d Antimicrobial susceptibilityOrdered By: Jasmin Desai on 12-16-2022 Bacteria identified Cx Nom (U) >100,000 cfu/ml Streptococcus species 4,000 cfu/ml Mixed skin contaminants [facility] Reference Laboratory Testing Ordered By: Sherrie DomainUser on 12-16-2022 Parathyrin.intact [Mass/Vol] 42 pg/mL Invalid Interpretation Code 15-65pg/mL [facility] SendOutsSS Comment on above: Result Comment: Perf ormed at: [facility] [address] [id number] PhD Jake Edwards URINALYSISOrdered By: Ghassan Salcido [...] AM) Normal Negative [facility] UA Auto SS [place].plasma/[place].R BC (Bld) [Mass ratio] 0-3 /HPF Normal [...] [facility] UA Auto SS Urobilinogen Qn (U) 0.4734070 {Macie'U}/dL Normal 0.0 - 1.0 EU/dL [facility] [...] PM) Normal Negative [facility] UA Auto SS [place].plasma/[place].R BC (Bld) [Mass ratio] 0-3 /HPF Normal [...] [facility] UA Auto SS Urobilinogen Qn (U) 0.1428590 {Macie'U}/dL Normal 0.0 - 1.0 EU/dL [facility] UA Auto SS WBC Auto Ql (U) Negative (12/10/22 1:43 PM) Normal Negative [facility] UA Auto SS WBC LM.HPF (Urine sed) [#/Area] 0-5 /HPF Normal 0-5/HPF [facility] UA Auto SS AZTREONAM:SUSC:PT:ISOLATE:OR DQN:MICOrdered By: Jasmin Desai on 11-29-2022 Aztreonam YESENIA [Susc] >100,000 cfu/ml Escherichia coli [facility] Aztreonam YESENIA [Susc]Ordered By: Jasmin Desai on 11-29-2022 Escherichia coli Escherichia coli [facility] URINALYSISOrdered By: Yara Monroy on 11-29-2022 Bacteria [...] PM) Normal Negative [facility] UA Auto SS [place].plasma/[place].R BC (Bld) [Mass ratio] 0-3 /HPF Normal [...] CITY UA Auto SS Urobilinogen Qn (U) 0.6451508 {Macie'U}/dL Normal 0.0 - 1.0 EU/dL [facility] UA Auto SS WBC Auto Ql (U) 1+ *ABN* (11/29/22 3:46 PM) Invalid Interpretation Code Negative [facility] UA Auto SS WBC LM.HPF (Urine sed) [#/Area] /[HPF] Invalid Interpretation Code 0-5/HPF [facility] UA Auto SS CULTURE [...] F Trimethoprim/Sulfame thoxazole <=20 S F Normal [facility] Comment on above: Performed By: #### C MP, HSTROPN #### [facility] [address] [place] [address] Dr. Sahil Turk CBC AUTO DIFFon 05-27-2022 BASO # 0.0 103/ul Normal 0.0-0.1 [facility] Comment on above: Performed By: #### U RTPCR #### [facility] [address] [place] [address] Dr. Sahil Turk Basophils/100 WBC (Bld) 0.3 % Normal 0.2-2.0 [facility] Comment on above: Performed By: #### U RTPCR #### [facility] [address] [place] [address] Dr. Sahil Turk EO # 0.1 103/ul Normal 0.0-0.7 [facility] Comment on above: Performed By: #### U RTPCR #### [facility] [address] [address] [address] Sahil Turk Eosinophils/100 WBC (Bld) 0.5 % Critically low 0.9-7.0 [facility] Comment on above: Performed By: #### U RTPCR #### [facility] [address] [place] [address] Dr. Sahil Turk Erythrocyte distribution width (RBC) [Ratio] 14.1 % Normal 11.0-15.0 [facility] Comment on above: Performed By: #### U RTPCR #### [facility] [address] [place] [address] Dr. Sahil Turk Hematocrit (Bld) [Volume fraction] 38.6 % Normal 36.0-48.0 [facility] Comment on above: Performed By: #### U RTPCR #### [facility] [address] [place] [address] Dr. Sahil Turk Hemoglobin (Bld) [Mass/Vol] 12.4 g/dL Normal 12.0-16.0 [facility] Comment on above: Performed By: #### U RTPCR #### [facility] [address] [place] [address] Dr. Sahil Turk IG # 0.05 10e3/ul Critically high 0.00-0.03 [facility] Comment on above: Performed By: #### U RTPCR #### [facility] [address] [place] [address] Dr. Sahil Turk IG % 0.5 % Normal 0.0-0.5 [facility] Comment on above: Performed By: #### U RTPCR #### [facility] [address] [place] [address] Dr. Saihl Turk LYMPH # 2.1 103/ul Normal 1.2-3.8 [facility] Comment on above: Performed By: #### U RTPCR #### [facility] [address] [place] [address] Dr. Sahil Turk Lymphocytes/100 WBC (Bld) 19.2 % Critically low 20.5-60.0 [facility] Comment on above: Performed By: #### U RTPCR #### [facility] [address] [place] [address] Dr. Sahil Turk MANUAL DIFF REQ NO Normal [facility] Comment on above: Performed By: #### U RTPCR #### [facility] [address] [place] [address] Dr. Sahil Turk MCH (RBC) [Entitic mass] 29.5 pg Normal 26.7-34.0 [facility] Comment on above: Performed By: #### U RTPCR #### [facility] [address] [place] [address] Dr. Sahil Turk MCHC (RBC) [Mass/Vol] 32.1 g/dL Normal 29.9-35.2 [facility] Comment on above: Performed By: #### U RTPCR #### [facility] [address] [place] [address] Dr. Sahil Turk MCV (RBC) [Entitic vol] 91.9 fL Normal 81.0-99.0 [facility] Comment on above: Performed By: #### U RTPCR #### [facility] [address] [place] [address] Dr. Sahil Turk MONO # 0.5 103/ul Normal 0.3-0.8 [facility] Comment on above: Performed By: #### U RTPCR #### [facility] [address] [place] [address] Dr. Sahil Turk Monocytes/100 WBC (Bld) 4.6 % Normal 1.7-12.0 [facility] Comment on above: Performed By: #### U RTPCR #### [facility] [address] [place] [address] Dr. Sahil Turk NEUT # 8.3 103/ul Critically high 1.4-6.5 [facility] Comment on above: Performed By: #### U RTPCR #### [facility] [address] [place] [address] Dr. Sahil Turk Neutrophils/100 WBC (Bld) 74.9 % Normal 43.0-75.0 [facility] Comment on above: Performed By: #### U RTPCR #### [facility] [address] [place] [address] Dr. Sahil Turk Platelet mean volume (Bld) [Entitic vol] 9.3 fL Critically low 9.5-13.5 [facility] Comment on above: Performed By: #### U RTPCR #### [facility] [address] [place] [address] Dr. Sahil Turk PLT 222 103/ul Normal 150-450 [facility] Comment on above: Performed By: #### U RTPCR #### [facility] [address] [place] [address] Dr. Sahil Turk RBC 4.20 106/ul Normal 4.20-5.40 [facility] Comment on above: Performed By: #### U RTPCR #### [facility] [address] [place] [address] Dr. Sahil Turk WBC 11.0 103/ul Normal 4.0-11.0 [facility] Comment on above: Performed By: #### U RTPCR #### [facility] [address] [place] [address] Dr. Sahil Turk ER URINE PROFILEon 2 Bilirubin Ql (U) Negative Normal NEGATIVE [facility] Comment on above: Performed By: #### C MP, HSTROPN #### [facility] [address] [place] [address] Dr. Sahil Turk Clarity (U) CLEAR Normal CLEAR [facility] Comment on above: Performed By: #### C MP, HSTROPN #### [facility] [address] [place] [address] Dr. Sahil Turk Color (U) LT. YELLOW Normal YELLOW [facility] Comment on above: Performed By: #### C MP, HSTROPN #### [facility] [address] [place] [address] Dr. Sahil HAINES A micrscopic examination will be performed if indicated. Normal [facility] Comment on above: Performed By: #### C MP, HSTROPN #### [facility] [address] [address] [address] Sahil Turk Glucose Ql (U) Negative Normal NEGATIVE [facility] Comment on above: Performed By: #### C MP, HSTROPN #### [facility] [address] [place] [address] Dr. Sahil Turk Hemoglobin Ql (U) Negative Normal NEGATIVE [facility] Comment on above: Performed By: #### C MP, HSTROPN #### [facility] [address] [address] [address] Sahil Turk Ketones Ql (U) Negative Normal NEGATIVE [facility] Comment on above: Performed By: #### C MP, HSTROPN #### [facility] [address] [place] [address] Dr. Sahil Turk LEUKOCYTES SMALL Abnormal NEGATIVE [facility] Comment on above: Performed By: #### C MP, HSTROPN #### [facility] [address] [place] [address] Dr. Sahil Turk Nitrite Ql (U) Positive Abnormal NEGATIVE [facility] Comment on above: Performed By: #### C MP, HSTROPN #### [facility] [address] [place] [address] Dr. Sahil Turk pH (U) 7.0 [pH] Normal 5-9 [facility] Comment on above: Performed By: #### C MP, HSTROPN #### [facility] [address] [place] [address] Dr. Sahil Turk SPEC GRAVITY 1.010 Normal 1.005-<=1.0 25 [facility] Comment on above: Performed By: #### C MP, HSTROPN #### [facility] [address] [place] [address] Dr. Sahil Turk UA PROTEIN Negative Normal NEGATIVE/ TRACE [facility] Comment on above: Performed By: #### C MP, HSTROPN #### [facility] [address] [place] [address] Dr. Sahil Turk UR MICRO IND INDICATED Normal [facility] Comment on above: Performed By: #### C MP, HSTROPN #### [facility] [address] [place] [address] Dr. Sahil Turk Urobilinogen Qn (U) 0.2 {Macie'U}/dL Normal 0.2 - 1. 0 [facility] Comment on above: Performed By: #### C JAYY, HSTROPN #### [facility] [address] [place] [address] Dr. Sahil Turk PROF 14(COMP METB)on 022 Albumin [Mass/Vol] 3.5 g/dL Normal 3.4-5.0 [facility] Comment on above: Performed By: #### C JAYY, HSTROPN #### [facility] [address] [place] [address] Dr. Sahil Turk Albumin/Globulin [Mass ratio] 0.9 {ratio} Normal [facility] Comment on above: Performed By: #### C JAYY, HSTROPN #### [facility] [address] [place] [address] Dr. Sahil Turk ALP [Catalytic activity/Vol] 81 U/L Normal 46-116 [facility] Comment on above: Performed By: #### C JAYY, HSTROPN #### [facility] [address] [place] [address] Dr. Sahil Turk ALT [Catalytic activity/Vol] 15 U/L Normal 14-59 [facility] Comment on above: Performed By: #### C JAYY, HSTROPN #### [facility] [address] [place] [address] Dr. Sahil Turk Anion gap [Moles/Vol] 9.7 mmol/L Normal [facility] Comment on above: Performed By: #### C JAYY, HSTROPN #### [facility] [address] [place] [address] Dr. Sahil Turk AST [Catalytic activity/Vol] 20 U/L Normal 15-37 [facility] Comment on above: Performed By: #### C JAYY, HSTROPN #### [facility] [address] [place] [address] Dr. Sahil Turk Bilirubin [Mass/Vol] 0.5 mg/dL Normal 0.2-1.0 [facility] Comment on above: Performed By: #### C MP, HSTROPN #### [facility] [address] [address] [address] Sahil Turk Calcium [Mass/Vol] 9.5 mg/dL Normal 8.5-10.1 [facility] Comment on above: Performed By: #### C MP, HSTROPN #### [facility] [address] [place] [address] Dr. Sahil Turk Chloride [Moles/Vol] 100 mmol/L Normal 98-107 [facility] Comment on above: Performed By: #### C MP, HSTROPN #### [facility] [address] [place] [address] Dr. Sahil Turk CO2 [Moles/Vol] 36.1 mmol/L Critically high 21.0-32.0 [facility] Comment on above: Performed By: #### C MP, HSTROPN #### [facility] [address] [place] [address] Dr. Sahil Turk Creatinine [Mass/Vol] 1.67 mg/dL Critically high 0.55-1.02 [facility] Comment on above: Performed By: #### C MP, HSTROPN #### [facility] [address] [place] [address] Dr. Sahil Turk EGFR-AF BRITISH 36 mL/min/1.73m2 Critically low >=60 [facility] Comment on above: Performed By: #### C MP, HSTROPN #### [facility] [address] [place] [address] Dr. Sahil Turk EGFR-NON AF BRITISH 30 mL/min/1.73m2 Critically low >=60 [facility] Comment on above: Performed By: #### C MP, HSTROPN #### [facility] [address] [place] [address] Dr. Sahil Turk Globulin (S) [Mass/Vol] 3.8 g/dL Normal [facility] Comment on above: Performed By: #### C MP, HSTROPN #### [facility] [facility] [address] [address] [address] Sahil Turk Glucose [Mass/Vol] 181 mg/dL Critically high 74-106 T [facility] Comment on above: Performed By: #### C MP, HSTROPN #### [facility] [address] [place] [address] Dr. Sahil Truk Potassium [Moles/Vol] 3.8 mmol/L Normal 3.5-5.1 [facility] Comment on above: Performed By: #### C MP, HSTROPN #### [facility] [address] [place] [address] Dr. Sahil Turk Protein [Mass/Vol] 7.3 g/dL Normal 6.4-8.2 [facility] Comment on above: Performed By: #### C JAYY, HSTROPN #### [facility] [address] [place] [address] Dr. Sahil Turk Sodium [Moles/Vol] 142 mmol/L Normal 136-145 [facility] Comment on above: Performed By: #### C JAYY, HSTROPN #### [facility] [address] [place] [address] Dr. Sahil Turk Urea nitrogen [Mass/Vol] 18.0 mg/dL Normal 7.0-18.0 [facility] Comment on above: Performed By: #### C JAYY, HSTROPN #### [facility] [address] [place] [address] Dr. Sahil Turk Urea nitrogen/Creatinine [Mass ratio] 10.8 mg/mg Normal [facility] Comment on above: Performed By: #### C MP, HSTROPN #### [facility] [address] [place] [address] Dr. Sahil Turk PROTIMEon 05-27-2022 INR Coag (PPP) [Relative time] 1.09 {INR} Normal [facility] Comment on above: Performed By: #### U RTPCR #### [facility] [address] [place] [address] Dr. Sahil Turk INR GUIDELINES SEE BELOW Normal [facility] Comment on above: Result Comment: LUIS ANGEL RED INR: 2.0 - 3.0 CONDITIONS NOT LISTED BELOW 2.5 - 3.5 FOR PROSTHETIC HEART VALVE REPLACEMENT 2.5 - 3.5 RECURRENT THROMBOSIS Performed By: #### U RTPCR #### [facility] [address] [place] [address] Dr. Sahil Turk PT Coag (PPP) [Time] 11.7 s Critically high 9.0-11.6 The [facility] Comment on above: Performed By: #### U RTPCR #### [facility] [address] [place] [address] Dr. Sahil Turk PTTon 05-27-2022 aPTT Coag (Bld) [Time] 30.6 s Normal 22.3-36.2 Th e [facility] Comment on above: Performed By: #### U RTPCR #### [facility] [address] [place] [address] Dr. Sahil Turk TROPONIN, HIGH SENSITIVITYon 05-27-2022 HSTROP 7.1 pg/mL Normal 4.0-51.3 The [facility] Comment on above: Result Comment: CUT- OFF POINTS HAVE BEEN ESTABLISHED BASED ON THE FOURTH UNIVERSAL DEFINITIONS OF MYOCARDIAL INFARCTION. THE UPPER REFERENCE LIMIT (URL) OF TROPONIN, DEFINED THE 99TH PERCENTILE OF cTnI DISTRIBUTION IN A REFERENCE POPULATION, HAS BEEN CONFIRMED THE DECISION THRESHOLD FOR [place] DIAGNOSIS. Performed By: #### C MP, HSTROPN #### [facility] [address] [place] [address] Dr. Sahil Turk URINE MICROSCOPIC ONLYon BACTERIA LARGE Abnormal NONE SEEN The [facility] Comment on above: Performed By: #### C MP, HSTROPN #### [facility] [address] [place] [address] Dr. Sahil Turk Bacteria identified Cx Nom (U) INDICATED Normal The [facility] Comment on above: Performed By: #### C MP, HSTROPN #### [facility] [address] [place] [address] Dr. Sahil Turk CAST NONE SEEN Normal NONE SEEN The [facility] Comment on above: Performed By: #### C MP, HSTROPN #### [facility] [address] [address] [address] Sahil Turk Crystals LM Nom (Urine sed) NONE SEEN Normal NONE SEEN The [facility] Comment on above: Performed By: #### C MP, HSTROPN #### [facility] [address] [address] [address] Sahil Turk Epithelial cells LM Ql (Urine sed) RARE Normal NONE SEEN /RARE The [facility] Comment on above: Performed By: #### C MP, HSTROPN #### [facility] [address] [address] [address] Sahli Turk MUCOUS NONE SEEN Normal NONE SEEN The [facility] Comment on above: Performed By: #### C MP, HSTROPN #### [facility] [address] [address] [address] Sahil Turk RBC 0-2 Normal 0-2 The [facility] Comment on above: Performed By: #### C MP, HSTROPN #### [facility] [address] [address] [address] Sahil Turk WBC 0-2 Abnormal NONE SEEN The [facility] Comment on above: Performed By: #### C MP, HSTROPN #### [facility] [address] [address] [address] Sahil Turk XR CHEST 1 Von [...] by: EDGARD GOMEZ Date: 2022-05-27 21:31 Normal [facility] CULTURE URINEon 03-13-2022 CULTURE URINE [...] F Trimethoprim/Sulfame thoxazole <=20 S F Normal [facility] Comment on above: Performed By: #### C JAYY, HSTROPN #### [facility] [address] [place] [address] Dr. Sahil Turk BNPon 03-11-2022 Natriuretic peptide B (Bld) [Mass/Vol] 449.0 pg/mL Normal <=1,800.0 [facility] Comment on above: Performed By: #### U RTPCR #### [facility] [address] [place] [address] Dr. Sahil Turk CBC AUTO DIFFon 03-11-2022 BASO # 0.0 103/ul Normal 0.0-0.1 [facility] Comment on above: Performed By: #### C JAYY, HSTROPN #### [facility] [address] [place] [address] Dr. Sahil Turk Basophils/100 WBC (Bld) 0.6 % Normal 0.2-2.0 [facility] Comment on above: Performed By: #### C JAYY, HSTROPN #### [facility] [address] [place] [address] Dr. Sahil Turk EO # 0.1 103/ul Normal 0.0-0.7 [facility] Comment on above: Performed By: #### C JAYY, HSTROPN #### [facility] [address] [place] [address] Dr. Sahil Turk Eosinophils/100 WBC (Bld) 2.8 % Normal 0.9-7.0 The [facility] Comment on above: Performed By: #### C JAYY, HSTROPN #### [facility] [address] [place] [address] Dr. Sahil Turk Erythrocyte distribution width (RBC) [Ratio] 13.7 % Normal 11.0-15.0 [facility] Comment on above: Performed By: #### C JAYY, HSTROPN #### [facility] [address] [place] [address] Dr. Sahil Turk Hematocrit (Bld) [Volume fraction] 39.2 % Normal 36.0-48.0 [facility] Comment on above: Performed By: #### C JAYY, HSTROPN #### [facility] [address] [place] [address] Dr. Sahil Turk Hemoglobin (Bld) [Mass/Vol] 12.7 g/dL Normal 12.0-16.0 The [facility] Comment on above: Performed By: #### C JAYY, HSTROPN #### [facility] [address] [place] [address] Dr. Sahil Turk IG # 0.01 10e3/ul Normal 0.00-0.03 [facility] Comment on above: Performed By: #### C JAYY, HSTROPN #### [facility] [address] [place] [address] Dr. Sahil Turk IG % 0.2 % Normal 0.0-0.5 [facility] Comment on above: Performed By: #### C JAYY, HSTROPN #### [facility] [address] [place] [address] Dr. Sahil Turk LYMPH # 1.9 103/ul Normal 1.2-3.8 [facility] Comment on above: Performed By: #### C JAYY, HSTROPN #### [facility] [address] [place] [address] Dr. Sahil Turk Lymphocytes/100 WBC (Bld) 37.8 % Normal 20.5-60.0 [facility] Comment on above: Performed By: #### C MP, HSTROPN #### [facility] [address] [place] [address] Dr. Sahil Turk MANUAL DIFF REQ NO Normal [facility] Comment on above: Performed By: #### C MP, HSTROPN #### [facility] [address] [place] [address] Dr. Sahil Turk MCH (RBC) [Entitic mass] 30.5 pg Normal 26.7-34.0 [facility] Comment on above: Performed By: #### C MP, HSTROPN #### [facility] [address] [place] [address] Dr. Sahil Turk MCHC (RBC) [Mass/Vol] 32.4 g/dL Normal 29.9-35.2 [facility] Comment on above: Performed By: #### C MP, HSTROPN #### [facility] [address] [place] [address] Dr. Sahil Turk MCV (RBC) [Entitic vol] 94.0 fL Normal 81.0-99.0 [facility] Comment on above: Performed By: #### C MP, HSTROPN #### [facility] [address] [place] [address] Dr. Sahil Turk MONO # 0.4 103/ul Normal 0.3-0.8 [facility] Comment on above: Performed By: #### C MP, HSTROPN #### [facility] [address] [place] [address] Dr. Sahil Turk Monocytes/100 WBC (Bld) 7.0 % Normal 1.7-12.0 [facility] Comment on above: Performed By: #### C MP, HSTROPN #### [facility] [address] [place] [address] Dr. Sahil Turk NEUT # 2.6 103/ul Normal 1.4-6.5 [facility] Comment on above: Performed By: #### C MP, HSTROPN #### [facility] [address] [place] [address] Dr. Sahil Turk Neutrophils/100 WBC (Bld) 51.6 % Normal 43.0-75.0 [facility] Comment on above: Performed By: #### C JAYY, HSTROPN #### [facility] [address] [place] [address] Dr. Sahil Turk Platelet mean volume (Bld) [Entitic vol] 9.9 fL Normal 9.5-13.5 [facility] Comment on above: Performed By: #### C JAYY, HSTROPN #### [facility] [address] [place] [address] Dr. Sahil Turk PLT 220 103/ul Normal 150-450 [facility] Comment on above: Performed By: #### C JAYY, HSTROPN #### [facility] [address] [place] [address] Dr. Sahil Turk RBC 4.17 106/ul Critically low 4.20-5.40 [facility] Comment on above: Performed By: #### C JAYY, HSTROPN #### [facility] [address] [place] [address] Dr. Sahil Turk WBC 5.0 103/ul Normal 4.0-11.0 [facility] Comment on above: Performed By: #### C JAYY, HSTROPN #### [facility] [address] [place] [address] Dr. Sahil Turk ER URINE PROFILEon 2 Bilirubin Ql (U) Negative Normal NEGATIVE [facility] Comment on above: Performed By: #### M G, RENAL, URIC #### [facility] [address] [place] [address] Dr. Sahil Turk Clarity (U) CLEAR Normal CLEAR [facility] Comment on above: Performed By: #### M G, RENAL, URIC #### [facility] [address] [place] [address] Dr. Sahil Turk Color (U) LT. YELLOW Normal YELLOW The [facility] Comment on above: Performed By: #### M G, RENAL, URIC #### [facility] [address] [place] [address] DrEleni HAINES A micrscopic examination will be performed if indicated. Normal [facility] Comment on above: Performed By: #### M G, RENAL, URIC #### [facility] [address] [address] [address] Sahil Turk Glucose Ql (U) Negative Normal NEGATIVE [facility] Comment on above: Performed By: #### M G, RENAL, URIC #### [facility] [address] [address] [address] Sahil Turk Hemoglobin Ql (U) Negative Normal NEGATIVE [facility] Comment on above: Performed By: #### M G, RENAL, URIC #### [facility] [address] [address] [address] Sahil Turk Ketones Ql (U) Negative Normal NEGATIVE [facility] Comment on above: Performed By: #### M G, RENAL, URIC #### [facility] [address] [place] [address] Dr. Sahil Turk LEUKOCYTES SMALL Abnormal NEGATIVE [facility] Comment on above: Performed By: #### M G, RENAL, URIC #### [facility] [address] [address] [address] Sahil Turk Nitrite Ql (U) Positive Abnormal NEGATIVE [facility] Comment on above: Performed By: #### M G, RENAL, URIC #### [facility] [address] [address] [address] Sahil Turk pH (U) 6.5 [pH] Normal 5-9 [facility] Comment on above: Performed By: #### M G, RENAL, URIC #### [facility] [address] [address] [address] Sahil Turk SPEC GRAVITY 1.010 Normal 1.005-<=1.0 25 [facility] Comment on above: Performed By: #### M G, RENAL, URIC #### [facility] [address] [address] [address] Sahil Turk UA PROTEIN Negative Normal NEGATIVE/ TRACE [facility] Comment on above: Performed By: #### M G, RENAL, URIC #### [facility] [address] [place] [address] Dr. Sahil Turk UR MICRO IND INDICATED Normal [facility] Comment on above: Performed By: #### M G, RENAL, URIC #### [facility] [address] [place] [address] Dr. Sahil Turk Urobilinogen Qn (U) 0.2 {Macie'U}/dL Normal 0.2 - 1. 0 [facility] Comment on above: Performed By: #### M G, RENAL, URIC #### [facility] [address] [place] [address] Dr. Sahil Turk LIPASEon 03-11-2022 Lipase [Catalytic activity/Vol] 40.0 U/L Critically low 73.0-393.0 [facility] Comment on above: Performed By: #### U RTPCR #### [facility] [address] [place] [address] Dr. Sahil Turk PROF 14(COMP METB)on 022 Albumin [Mass/Vol] 3.5 g/dL Normal 3.4-5.0 [facility] Comment on above: Performed By: #### M G, RENAL, URIC #### [facility] [address] [place] [address] Dr. Sahil Turk Albumin/Globulin [Mass ratio] 1.1 {ratio} Normal [facility] Comment on above: Performed By: #### M G, RENAL, URIC #### [facility] [address] [place] [address] Dr. Sahil Turk ALP [Catalytic activity/Vol] 69 U/L Normal 46-116 [facility] Comment on above: Performed By: #### M G, RENAL, URIC #### [facility] [address] [place] [address] Dr. Sahil Turk ALT [Catalytic activity/Vol] 18 U/L Normal 14-59 [facility] Comment on above: Performed By: #### M G, RENAL, URIC #### [facility] [address] [place] [address] Dr. Sahil Turk Anion gap [Moles/Vol] 10.6 mmol/L Normal [facility] Comment on above: Performed By: #### M G, RENAL, URIC #### [facility] [address] [address] [address] Sahil Turk AST [Catalytic activity/Vol] 21 U/L Normal 15-37 [facility] Comment on above: Performed By: #### M G, RENAL, URIC #### [facility] [address] [address] [address] Sahil Turk Bilirubin [Mass/Vol] 0.4 mg/dL Normal 0.2-1.0 [facility] Comment on above: Performed By: #### M G, RENAL, URIC #### [facility] [address] [place] [address] Dr. Sahil Turk Calcium [Mass/Vol] 9.6 mg/dL Normal 8.5-10.1 [facility] Comment on above: Performed By: #### M G, RENAL, URIC #### [facility] [address] [place] [address] Dr. Sahil Turk Chloride [Moles/Vol] 102 mmol/L Normal 98-107 [facility] Comment on above: Performed By: #### M G, RENAL, URIC #### [facility] [address] [place] [address] Dr. Sahil Turk CO2 [Moles/Vol] 33.1 mmol/L Critically high 21.0-32.0 [facility] Comment on above: Performed By: #### M G, RENAL, URIC #### [facility] [address] [address] [address] Sahil Turk Creatinine [Mass/Vol] 1.40 mg/dL Critically high 0.55-1.02 [facility] Comment on above: Performed By: #### M G, RENAL, URIC #### [facility] [address] [place] [address] Dr. Sahil Turk EGFR-AF BRITISH 44 mL/min/1.73m2 Critically low >=60 [facility] Comment on above: Performed By: #### M G, RENAL, URIC #### [facility] [address] [place] [address] Dr. Sahil Turk EGFR-NON AF BRITISH 36 mL/min/1.73m2 Critically low >=60 [facility] Comment on above: Performed By: #### M G, RENAL, URIC #### [facility] [address] [address] [address] Sahil Turk Globulin (S) [Mass/Vol] 3.3 g/dL Normal [facility] Comment on above: Performed By: #### M G, RENAL, URIC #### [facility] [address] [address] [address] Sahil Turk Glucose [Mass/Vol] 107 mg/dL Critically high 74-106 [facility] Comment on above: Performed By: #### M G, RENAL, URIC #### [facility] [address] [place] [address] Dr. Sahil Turk Potassium [Moles/Vol] 3.7 mmol/L Normal 3.5-5.1 [facility] Comment on above: Performed By: #### M G, RENAL, URIC #### [facility] [address] [address] [address] Sahil Turk Protein [Mass/Vol] 6.8 g/dL Normal 6.4-8.2 [facility] Comment on above: Performed By: #### M G, RENAL, URIC #### [facility] [address] [address] [address] Sahil Turk Sodium [Moles/Vol] 142 mmol/L Normal 136-145 [facility] Comment on above: Performed By: #### M G, RENAL, URIC #### [facility] [address] [address] [address] Sahil Turk Urea nitrogen [Mass/Vol] 16.0 mg/dL Normal 7.0-18.0 [facility] Comment on above: Performed By: #### M G, RENAL, URIC #### [facility] [address] [address] [address] Sahil Turk Urea nitrogen/Creatinine [Mass ratio] 11.4 mg/mg Normal [facility] Comment on above: Performed By: #### M G, RENAL, URIC #### [facility] [address] [place] [address] Dr. Sahil Turk PROTIMEon 03-11-2022 INR Coag (PPP) [Relative time] 1.03 {INR} Normal [facility] Comment on above: Performed By: #### C MP, HSTROPN #### [facility] [address] [place] [address] Dr. Sahil Turk INR GUIDELINES SEE BELOW Normal [facility] Comment on above: Result Comment: LUIS ANGEL RED INR: 2.0 - 3.0 CONDITIONS NOT LISTED BELOW 2.5 - 3.5 FOR PROSTHETIC HEART VALVE REPLACEMENT 2.5 - 3.5 RECURRENT THROMBOSIS Performed By: #### C MP, HSTROPN #### [facility] [address] [place] [address] Dr. Sahil Turk PT Coag (PPP) [Time] 11.1 s Normal 9.0-11.6 [facility] Comment on above: Performed By: #### C MP, HSTROPN #### [facility] [address] [place] [address] Dr. Sahil Turk PTTon 03-11-2022 aPTT Coag (Bld) [Time] 25.4 s Normal 22.3-36.2 [facility] Comment on above: Performed By: #### C MP, HSTROPN #### [facility] [address] [place] [address] Dr. Sahil Turk TROPONIN, HIGH SENSITIVITYon 03-11-2022 HSTROP 7.5 pg/mL Normal 4.0-51.3 [facility] Comment on above: Result Comment: CUT- OFF POINTS HAVE BEEN ESTABLISHED BASED ON THE FOURTH UNIVERSAL DEFINITIONS OF MYOCARDIAL INFARCTION. THE UPPER REFERENCE LIMIT (URL) OF TROPONIN, DEFINED THE 99TH PERCENTILE OF cTnI DISTRIBUTION IN A REFERENCE POPULATION, HAS BEEN CONFIRMED THE DECISION THRESHOLD FOR [place] DIAGNOSIS. Performed By: #### M G, RENAL, URIC #### [facility] [address] [place] [address] Dr. Sahil Turk HSTROP 7.9 pg/mL Normal 4.0-51.3 [facility] Comment on above: Result Comment: CUT- OFF POINTS HAVE BEEN ESTABLISHED BASED ON THE FOURTH UNIVERSAL DEFINITIONS OF MYOCARDIAL INFARCTION. THE UPPER REFERENCE LIMIT (URL) OF TROPONIN, DEFINED THE 99TH PERCENTILE OF cTnI DISTRIBUTION IN A REFERENCE POPULATION, HAS BEEN CONFIRMED THE DECISION THRESHOLD FOR [place] DIAGNOSIS. Performed By: #### U RTPCR #### [facility] [address] [place] [address] Dr. Sahil Turk URINE MICROSCOPIC ONLYon BACTERIA SMALL Abnormal NONE SEEN [facility] Comment on above: Performed By: #### M G, RENAL, URIC #### [facility] [address] [place] [address] Dr. Sahil Turk Bacteria identified Cx Nom (U) INDICATED Normal [facility] Comment on above: Performed By: #### M G, RENAL, URIC #### [facility] [address] [place] [address] Dr. Sahil Turk CAST NONE SEEN Normal NONE SEEN [facility] Comment on above: Performed By: #### M G, RENAL, URIC #### [facility] [address] [place] [address] Dr. Sahil Turk Crystals LM Nom (Urine sed) NONE SEEN Normal NONE SEEN [facility] Comment on above: Performed By: #### M G, RENAL, URIC #### [facility] [address] [place] [address] Dr. Sahil Turk Epithelial cells LM Ql (Urine sed) RARE Normal NONE SEEN /RARE [facility] Comment on above: Performed By: #### M G, RENAL, URIC #### [facility] [address] [place] [address] Dr. Sahil Turk MUCOUS NONE SEEN Normal NONE SEEN [facility] Comment on above: Performed By: #### M G, RENAL, URIC #### [facility] [address] [place] [address] Dr. Sahil Turk RBC 0-2 Normal 0-2 [facility] Comment on above: Performed By: #### M G, RENAL, URIC #### [facility] [address] [place] [address] Dr. Sahil Turk WBC 5-10 Abnormal NONE SEEN [facility] Comment on above: Performed By: #### M G, RENAL, URIC #### [facility] [address] [address] [address] Sahil Turk XR CHEST 1 Von [...] Date: 2022-03-11 14:27 Normal [facility] CT CSPINE WO CONon 2 CT [...] by: LEISA SALGUEROH Date: 2022-02-22 08:12 Normal [facility] CT HEAD WO CONon 02-21-2022 CT [...] Date: 2022-02-21 16:40 Normal [facility] CT LSPINE WO CONon CT LSPINE WO CON EXAMINATION: CT LSPINE WO CON, 02/21/2022, 3:54 PM EDT HISTORY: Pain COMPARISON: None. TECHNIQUE: CT of the lumbar spine was performed without IV contrast. CT dose reduction technique was used, including Automated Exposure Control. 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 MINERALIZATION: Probable mild osteopenia. 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 Order #: [id number] CLICK HERE TO VIEW EXAM ECHOCARDIOGRAM REPORT [...] Herrera M.D. on 01/06/2022 at 17:18 Normal [facility] PTH INTACTon 12-11-2021 PTH, Intact 31 pg/mL Normal 15-65 [facility] Comment on above: Performed By: #### C MP, HSTROPN #### [facility] [address] [place] [address] Dr. Sahil Turk FERRITINon 12-10-2021 Ferritin [Mass/Vol] 53.0 ng/mL Normal 8.0-252.0 [facility] Comment on above: Performed By: #### C MP, HSTROPN #### [facility] [address] [place] [address] Dr. Sahil uTrk HEMOGRAM AND PLATELon 2021 Hematocrit (Bld) [Volume fraction] 38.4 % Normal 36.0-48.0 [facility] Comment on above: Performed By: #### M G, RENAL, URIC #### [facility] [address] [place] [address] Dr. Sahil Turk Hemoglobin (Bld) [Mass/Vol] 12.5 g/dL Normal 12.0-16.0 [facility] Comment on above: Performed By: #### M G, RENAL, URIC #### [facility] [address] [place] [address] Dr. Sahil Turk MCH (RBC) [Entitic mass] 29.4 pg Normal 26.7-34.0 [facility] Comment on above: Performed By: #### M G, RENAL, URIC #### [facility] [address] [place] [address] Dr. Sahil Turk MCHC (RBC) [Mass/Vol] 32.6 g/dL Normal 29.9-35.2 [facility] Comment on above: Performed By: #### M G, RENAL, URIC #### [facility] [address] [place] [address] Dr. Sahil Turk MCV (RBC) [Entitic vol] 90.4 fL Normal 81.0-99.0 [facility] Comment on above: Performed By: #### M G, RENAL, URIC #### [facility] [address] [address] [address] Sahil Turk PLT 263 103/ul Normal 150-450 [facility] Comment on above: Performed By: #### M G, RENAL, URIC #### [facility] [address] [address] [address] Sahil Turk RBC 4.25 106/ul Normal 4.20-5.40 [facility] Comment on above: Performed By: #### M G, RENAL, URIC #### [facility] [address] [address] [address] Sahil Turk WBC 7.1 103/ul Normal 4.0-11.0 [facility] Comment on above: Performed By: #### M G, RENAL, URIC #### [facility] [address] [address] [address] Sahil Turk IRON AND TIBCon 12-10-2021 % SATURATION 20.3 % Normal [facility] Comment on above: Performed By: #### C MP, HSTROPN #### [facility] [address] [address] [address] Sahil Turk Iron [Mass/Vol] 61.0 ug/dL Normal 50.0-170.0 [facility] Comment on above: Performed By: #### C MP, HSTROPN #### [facility] [address] [address] [address] Sahil Turk TIBC DIRECT 300.0 ug/dL Normal 250.0-450.0 [facility] Comment on above: Performed By: #### C MP, HSTROPN #### [facility] [address] [address] [address] Sahil Turk MAGNESIUMon 12-10-2021 Magnesium [Mass/Vol] 1.7 mg/dL Critically low 1.8-2.4 [facility] Comment on above: Performed By: #### M G, RENAL, URIC #### [facility] [address] [address] [address] Sahil Turk RENAL FUNCTION PANELon 12-10 Albumin [Mass/Vol] 3.7 g/dL Normal 3.4-5.0 [facility] Comment on above: Performed By: #### M G, RENAL, URIC #### [facility] [address] [address] [address] Sahil Turk Calcium [Mass/Vol] 9.6 mg/dL Normal 8.5-10.1 [facility] Comment on above: Performed By: #### M G, RENAL, URIC #### [facility] [address] [address] [address] Sahil Turk Chloride [Moles/Vol] 102 mmol/L Normal 98-107 [facility] Comment on above: Performed By: #### M G, RENAL, URIC #### [facility] [address] [place] [address] Dr. Sahil Turk CO2 [Moles/Vol] 28.3 mmol/L Normal 21.0-32.0 [facility] Comment on above: Performed By: #### M G, RENAL, URIC #### [facility] [address] [place] [address] Dr. Sahil Turk Creatinine [Mass/Vol] 1.42 mg/dL Critically high 0.55-1.02 [facility] Comment on above: Performed By: #### M G, RENAL, URIC #### [facility] [address] [place] [address] Dr. Sahil Turk EGFR-AF BRITISH 43 mL/min/1.73m2 Critically low >=60 [facility] Comment on above: Performed By: #### M G, RENAL, URIC #### [facility] [address] [place] [address] Dr. Sahil Turk EGFR-NON AF BRITISH 36 mL/min/1.73m2 Critically low >=60 [facility] Comment on above: Performed By: #### M G, RENAL, URIC #### [facility] [address] [place] [address] Dr. Sahil Turk Glucose [Mass/Vol] 112 mg/dL Critically high 74-106 [facility] Comment on above: Performed By: #### M G, RENAL, URIC #### [facility] [address] [address] [address] Sahil Turk Phosphate [Mass/Vol] 3.4 mg/dL Normal 2.6-4.7 [facility] Comment on above: Performed By: #### M G, RENAL, URIC #### [facility] [address] [address] [address] Sahil Turk Potassium [Moles/Vol] 3.9 mmol/L Normal 3.5-5.1 [facility] Comment on above: Performed By: #### M G, RENAL, URIC #### [facility] [address] [address] [address] Sahil Turk Sodium [Moles/Vol] 140 mmol/L Normal 136-145 [facility] Comment on above: Performed By: #### M G, RENAL, URIC #### [facility] [address] [place] [address] Dr. Sahil Turk Urea nitrogen [Mass/Vol] 29.0 mg/dL Critically high 7.0-18 .0 [facility] Comment on above: Performed By: #### M G, RENAL, URIC #### [facility] [address] [place] [address] Dr. Sahil Turk UA RANDOM W/MICROSCOPICon BACTERIA NONE SEEN Normal NONE SEEN [facility] Comment on above: Performed By: #### M G, RENAL, URIC #### [facility] [address] [place] [address] Dr. Sahil Turk Bilirubin Ql (U) Negative Normal NEGATIVE [facility] Comment on above: Performed By: #### M G, RENAL, URIC #### [facility] [address] [address] [address] Sahil Turk CAST NONE SEEN Normal NONE SEEN [facility] Comment on above: Performed By: #### M G, RENAL, URIC #### [facility] [address] [address] [address] Sahil Turk Clarity (U) CLEAR Normal CLEAR [facility] Comment on above: Performed By: #### M G, RENAL, URIC #### [facility] [address] [address] [address] Sahil Turk Color (U) LT. YELLOW Normal YELLOW [facility] Comment on above: Performed By: #### M G, RENAL, URIC #### [facility] [address] [address] [address] Sahil Turk Crystals LM Nom (Urine sed) NONE SEEN Normal NONE SEEN [facility] Comment on above: Performed By: #### M G, RENAL, URIC #### [facility] [address] [address] [address] Sahil Turk Epithelial cells LM Ql (Urine sed) NONE SEEN Normal NONE SEEN /RARE [facility] Comment on above: Performed By: #### M G, RENAL, URIC #### [facility] [address] [place] [address] Dr. Sahil Turk Glucose Ql (U) Negative Normal NEGATIVE [facility] Comment on above: Performed By: #### M G, RENAL, URIC #### [facility] [address] [place] [address] Dr. Sahil Turk Hemoglobin Ql (U) Negative Normal NEGATIVE [facility] Comment on above: Performed By: #### M G, RENAL, URIC #### [facility] [address] [place] [address] Dr. Sahil Turk Ketones Ql (U) Negative Normal NEGATIVE [facility] Comment on above: Performed By: #### M G, RENAL, URIC #### [facility] [address] [address] [address] Sahil Turk LEUKOCYTES Negative Normal NEGATIVE [facility] Comment on above: Performed By: #### M G, RENAL, URIC #### [facility] [address] [address] [address] Sahil Turk MUCOUS NONE SEEN Normal NONE SEEN [facility] Comment on above: Performed By: #### M G, RENAL, URIC #### [facility] [address] [place] [address] Dr. Sahil Turk Nitrite Ql (U) Negative Normal NEGATIVE [facility] Comment on above: Performed By: #### M G, RENAL, URIC #### [facility] [address] [address] [address] Sahil Turk pH (U) 7.0 [pH] Normal 5-9 [facility] Comment on above: Performed By: #### M G, RENAL, URIC #### [facility] [address] [address] [address] Sahil Turk RBC NONE SEEN Abnormal 0-2 [facility] Comment on above: Performed By: #### M G, RENAL, URIC #### [facility] [address] [address] [address] Sahil Turk SPEC GRAVITY 1.010 Normal 1.005-<=1.0 25 [facility] Comment on above: Performed By: #### M G, RENAL, URIC #### [facility] [address] [place] [address] Dr. Sahil Turk UA PROTEIN Negative Normal NEGATIVE/ TRACE [facility] Comment on above: Performed By: #### M G, RENAL, URIC #### [facility] [address] [address] [address] Sahil Turk Urobilinogen Qn (U) 0.2 {Macie'U}/dL Normal 0.2 - 1. 0 [facility] Comment on above: Performed By: #### M G, RENAL, URIC #### [facility] [address] [address] [address] Sahil Turk WBC NONE SEEN Normal NONE SEEN [facility] Comment on above: Performed By: #### M G, RENAL, URIC #### [facility] [address] [address] [address] Sahil Turk URIC ACID SERUMon 12-10-2021 Urate [Mass/Vol] 6.6 mg/dL Critically high 2.6-6.0 [facility] Comment on above: Performed By: #### M G, RENAL, URIC #### [facility] [address] [address] [address] Sahil Turk URINE T PROTEIN CREAT RATIOo n 12-10-2021 UR TOTAL PROTEIN <6.0 Normal <=12.0 [facility] Comment on above: Performed By: #### U RTPCR #### [facility] [address] [address] [address] Sahil Turk URINE CREAT <13.00 Critically low 20.00-300.0 0 [facility] Comment on above: Performed By: #### U RTPCR #### [facility] [address] [address] [address] Sahil Turk VITAMIN D 25 OHon 12-10-2021 VIT D 25-OH 91.7 ng/mL Normal [facility] Comment on above: Performed By: #### C MP, HSTROPN #### [facility] [address] [address] [address] Sahil Turk VIT D RANGES SEE BELOW Normal [facility] Comment on above: Result Comment: <20 ng/mL Vit D deficient 20 - <30 ng/mL Vit D insufficient 30 - 100 ng/mL Vit D sufficient >100 ng/mL Potential Toxicity Performed By: #### C MP, HSTROPN #### [facility] [address] [address] [address] Sahil Turk US KEVIN DOP LEG [...] by: LINDA REED Date: 2021-11-16 16:33 Normal [facility] FERRITINon 06-13-2021 Ferritin [Mass/Vol] 44 ng/mL Normal 15-150 [facility] Comment on above: Performed By: #### U RTPCR #### [facility] [address] [address] [address] Sahil Turk PTH INTACTon 06-13-2021 PTH, Intact 53 pg/mL Normal 15-65 [facility] Comment on above: Performed By: #### P THINT #### [facility] [address] [address] [address] Sahil Turk VIT D 25-OH [facility]on 2021 Vitamin D, 25-Hydroxy 50.5 ng/mL Normal 30.0-100.0 [facility] Comment on above: Result Comment: Barbie min D deficiency has been defined by the [place] [employer] and an Endocrine Society practice guideline as a level of serum 25-OH vitamin D less than 20 ng/mL (1,2). The Endocrine Society went on to further define vitamin D insufficiency as a level between 21 and 29 ng/mL (2). 1. IOM ([place] [employer]). 2010. Dietary reference intakes for calcium and D. [place]: The National Academies Press. 2. Benjamín MF, Vikram GOSS, Kira HERNANDEZ, et al. Evaluation, treatment, and prevention of vitamin D deficiency: an Endocrine Society clinical practice guideline. JCEM. 2010; 96(7):1911-30. Performed By: #### M G, RENAL, URIC #### [facility] [address] [place] [address] Dr. Sahil Truk HEMOGRAM AND PLATELon 2021 Hematocrit (Bld) [Volume fraction] 37.7 % Normal 36.0-48.0 [facility] Comment on above: Performed By: #### M G, RENAL, URIC #### [facility] [address] [place] [address] Dr. Sahil Turk Hemoglobin (Bld) [Mass/Vol] 12.2 g/dL Normal 12.0-16.0 [facility] Comment on above: Performed By: #### M G, RENAL, URIC #### [facility] [address] [address] [address] Sahil Turk MCH (RBC) [Entitic mass] 29.9 pg Normal 26.7-34.0 [facility] Comment on above: Performed By: #### M G, RENAL, URIC #### [facility] [address] [place] [address] Dr. Sahil Turk MCHC (RBC) [Mass/Vol] 32.4 g/dL Normal 29.9-35.2 [facility] Comment on above: Performed By: #### M G, RENAL, URIC #### [facility] [address] [address] [address] Sahil Turk MCV (RBC) [Entitic vol] 92.4 fL Normal 81.0-99.0 [facility] Comment on above: Performed By: #### M G, RENAL, URIC #### [facility] [address] [address] [address] Sahil Turk PLT 246 103/ul Normal 150-450 [facility] Comment on above: Performed By: #### M G, RENAL, URIC #### [facility] [address] [address] [address] Sahil Turk RBC 4.08 106/ul Critically low 4.20-5.40 [facility] Comment on above: Performed By: #### M G, RENAL, URIC #### [facility] [address] [address] [address] Sahil Turk WBC 5.7 103/ul Normal 4.0-11.0 [facility] Comment on above: Performed By: #### M G, RENAL, URIC #### [facility] [address] [address] [address] Sahil Turk IRON AND TIBCon 06-12-2021 % SATURATION 18.3 % Normal [facility] Comment on above: Performed By: #### U RTPCR #### [facility] [address] [address] [address] Sahil Turk Iron [Mass/Vol] 54.0 ug/dL Normal 37.0-170.0 [facility] Comment on above: Performed By: #### U RTPCR #### [facility] [address] [address] [address] Sahil Turk TIBC DIRECT 295.0 ug/dL Normal 261.0-497.0 [facility] Comment on above: Performed By: #### U RTPCR #### [facility] [address] [address] [address] Sahil Turk MAGNESIUMon 06-12-2021 Magnesium [Mass/Vol] 1.9 mg/dL Normal 1.6-2.3 [facility] Comment on above: Performed By: #### R ENAL, URIC, MG #### [facility] [address] [address] [address] Sahil Turk RENAL FUNCTION PANELon 06-12 Albumin [Mass/Vol] 3.7 g/dL Normal 3.5-5.0 [facility] Comment on above: Performed By: #### R ENAL, URIC, MG #### [facility] [address] [address] [address] Sahil Turk Calcium [Mass/Vol] 9.7 mg/dL Normal 8.4-10.2 [facility] Comment on above: Performed By: #### R ENAL, URIC, MG #### [facility] [address] [place] [address] Dr. Sahil Turk Chloride [Moles/Vol] 103 mmol/L Normal 98-107 [facility] Comment on above: Performed By: #### R ENAL, URIC, MG #### [facility] [address] [place] [address] Dr. Sahil Turk CO2 [Moles/Vol] 32.0 mmol/L Critically high 22.0-30.0 [facility] Comment on above: Performed By: #### R ENAL, URIC, MG #### [facility] [address] [place] [address] Dr. Sahil Turk Creatinine [Mass/Vol] 1.42 mg/dL Critically high 0.52-1.04 [facility] Comment on above: Performed By: #### R ENAL, URIC, MG #### [facility] [address] [place] [address] Dr. Sahil Turk EGFR-AF BRITISH 43 mL/min/1.73m2 Critically low >=60 [facility] Comment on above: Performed By: #### R ENAL, URIC, MG #### [facility] [address] [place] [address] Dr. Sahil Turk EGFR-NON AF BRITISH 36 mL/min/1.73m2 Critically low >=60 [facility] Comment on above: Performed By: #### R ENAL, URIC, MG #### [facility] [address] [address] [address] Sahil Turk Glucose [Mass/Vol] 101 mg/dL Normal 74-106 [facility] Comment on above: Performed By: #### R ENAL, URIC, MG #### [facility] [address] [place] [address] Dr. Sahil Turk Phosphate [Mass/Vol] 3.3 mg/dL Normal 2.5-4.5 [facility] Comment on above: Performed By: #### R ENAL, URIC, MG #### [facility] [address] [place] [address] Dr. Sahil Turk Potassium [Moles/Vol] 4.1 mmol/L Normal 3.4-5.0 [facility] Comment on above: Performed By: #### R ENAL, URIC, MG #### [facility] [address] [place] [address] Dr. Sahil Turk Sodium [Moles/Vol] 142 mmol/L Normal 137-145 [facility] Comment on above: Performed By: #### R ENAL, URIC, MG #### [facility] [address] [place] [address] Dr. Sahil Turk Urea nitrogen [Mass/Vol] 19.0 mg/dL Critically high 7.0-17 .0 [facility] Comment on above: Performed By: #### R ENAL, URIC, MG #### [facility] [address] [place] [address] Dr. Sahil Turk UA RANDOM W/MICROSCOPICon BACTERIA LARGE Abnormal NONE SEEN [facility] Comment on above: Performed By: #### M G, RENAL, URIC #### [facility] [address] [place] [address] Dr. Shail Turk Bilirubin Ql (U) Negative Normal NEGATIVE [facility] Comment on above: Performed By: #### M G, RENAL, URIC #### [facility] [address] [place] [address] Dr. Sahil Turk CAST NONE SEEN Normal NONE SEEN [facility] Comment on above: Performed By: #### M G, RENAL, URIC #### [facility] [address] [address] [address] Sahil Turk Clarity (U) SL CLOUDY Abnormal CLEAR [facility] Comment on above: Performed By: #### M G, RENAL, URIC #### [facility] [address] [address] [address] Sahil Turk Color (U) LT. YELLOW Normal YELLOW [facility] Comment on above: Performed By: #### M G, RENAL, URIC #### [facility] [address] [address] [address] Sahil Turk Crystals LM Nom (Urine sed) NONE SEEN Normal NONE SEEN [facility] Comment on above: Performed By: #### M G, RENAL, URIC #### [facility] [address] [place] [address] Dr. Sahil Turk Epithelial cells LM Ql (Urine sed) RARE Normal NONE SEEN /RARE [facility] Comment on above: Performed By: #### M G, RENAL, URIC #### [facility] [address] [place] [address] Dr. Sahil Turk Glucose Ql (U) Negative Normal NEGATIVE [facility] Comment on above: Performed By: #### M G, RENAL, URIC #### [facility] [address] [place] [address] Dr. Sahil Turk Hemoglobin Ql (U) Negative Normal NEGATIVE [facility] Comment on above: Performed By: #### M G, RENAL, URIC #### [facility] [address] [address] [address] Sahil Turk Ketones Ql (U) Negative Normal NEGATIVE [facility] Comment on above: Performed By: #### M G, RENAL, URIC #### [facility] [address] [place] [address] Dr. Sahil Turk LEUKOCYTES SMALL Abnormal NEGATIVE [facility] Comment on above: Performed By: #### M G, RENAL, URIC #### [facility] [address] [place] [address] Dr. Sahil Turk MUCOUS NONE SEEN Normal NONE SEEN [facility] Comment on above: Performed By: #### M G, RENAL, URIC #### [facility] [address] [address] [address] Sahil Turk Nitrite Ql (U) Positive Abnormal NEGATIVE [facility] Comment on above: Performed By: #### M G, RENAL, URIC #### [facility] [address] [address] [address] Sahil Turk pH (U) 8.0 [pH] Normal 5-9 [facility] Comment on above: Performed By: #### M G, RENAL, URIC #### [facility] [address] [address] [address] Sahil Tukr RBC 0-2 Normal 0-2 [facility] Comment on above: Performed By: #### M G, RENAL, URIC #### [facility] [address] [place] [address] Dr. Sahil Turk SPEC GRAVITY 1.015 Normal 1.005-<=1.0 25 [facility] Comment on above: Performed By: #### M G, RENAL, URIC #### [facility] [address] [address] [address] Sahil Turk UA PROTEIN Negative Normal NEGATIVE/ TRACE [facility] Comment on above: Performed By: #### M G, RENAL, URIC #### [facility] [address] [address] [address] Sahil Turk Urobilinogen Qn (U) 0.2 {Macie'U}/dL Normal 0.2 - 1. 0 [facility] Comment on above: Performed By: #### M G, RENAL, URIC #### [facility] [address] [address] [address] Sahil Turk WBC 10-20 Abnormal NONE SEEN [facility] Comment on above: Performed By: #### M G, RENAL, URIC #### [facility] [address] [address] [address] Sahil Turk URIC ACID SERUMon 06-12-2021 Urate [Mass/Vol] 7.7 mg/dL Critically high 2.5-6.2 [facility] Comment on above: Performed By: #### R ENAL, URIC, MG #### [facility] [address] [address] [address] Sahil Turk URINE T PROTEIN CREAT RATIOo n 06-12-2021 Protein (U) [Mass/Vol] 24.9 mg/dL Critically high <=12.0 [facility] Comment on above: Performed By: #### C JAYY, HSTROPN #### [facility] [address] [address] [address] Sahil Turk UR PROT CREAT RAT 0.[address] [facility] Comment on above: Performed By: #### C JAYY, HSTROPN #### [facility] [address] [address] [address] Sahil Turk URINE CREAT 76.21 mg/dL Normal 20.00-300.0 0 [facility] Comment on above: Performed By: #### C JAYY, HSTROPN #### [facility] [address] [address] [address] Sahil Turk Vital Signs Date Time Vital Sign Value Performing Clinician Facility 11-12-2024 13:20-0400 Body height 152.4 cm [facility] 11-12-2024 13:20-0400 Body mass index (BMI) [Ratio] 37.9 kg/m2 [facility] 11-12-2024 13:20-040 Body weight 88.05 kg [facility] 11-12-2024 13:20-0400 Diastolic blood pressure 70 mm[Hg] [facility] 11-12-2024 13:20-0400 Heart rate 78 /min [facility] 11-12-2024 13:20-0400 Systolic blood pressure 114 mm[Hg] [facility] 08-13-2024 14:25-0400 Body height 152.4 cm [facility] 08-13-2024 14:25-0400 Body mass index (BMI) [Ratio] 39 kg/m2 [facility] 08-13-2024 14:25-0400 Body temperature 98.5 [degF] [facility] 08-13-2024 14:25-0400 Body weight 90.71 kg [facility] 08-13-2024 14:25-0400 Diastolic blood pressure 73 mm[Hg] [facility] 08-13-2024 14:25-0400 Heart rate 92 /min [facility] 08-13-2024 14:25-0400 Respiratory rate 18 /min [facility] 08-13-2024 14:25-0400 SaO2% (BldA) [Mass fraction] 92 % [facility] 08-13-2024 14:25-0400 Systolic blood pressure 119 mm[Hg] [facility] 08-13-2024 11:04-0400 Body height 152.4 cm [facility] 08-13-2024 11:04-0400 Body mass index (BMI) [Ratio] 39 kg/m2 [facility] 08-13-2024 11:04-0400 Body weight 90.71 kg [facility] 08-13-2024 11:04-0400 Diastolic blood pressure 73 mm[Hg] [facility] 08-13-2024 11:04-0400 Heart rate 78 /min [facility] 08-13-2024 11:04-0400 SaO2% (BldA) [Mass fraction] 92 % [facility] 08-13-2024 11:04-0400 Systolic blood pressure 112 mm[Hg] [facility] 04-06-2024 18:18-0400 Hourly Rounding Ronobir AMPARO [facility] 04-06-2024 18:18-0400 Promise to Return Ronobir AMPARO [facility] 04-06-2024 17:21-0400 Diastolic blood pressure 82 mm[Hg] Ronobir AMPARO [facility] 04-06-2024 17:21-0400 Systolic blood pressure 156 mm[Hg] Ronobir AMPARO [facility] 04-06-2024 17:19-0400 Diastolic blood pressure 80 mm[Hg] Ronobir AMPARO [facility] 04-06-2024 17:19-0400 Heart rate 70 /min Ronobir AMPARO [facility] 04-06-2024 17:19-0400 Systolic blood pressure 171 mm[Hg] Ronobir AMPARO [facility] 04-06-2024 17:16-0400 Hourly Rounding Ronobir AMPARO [facility] 04-06-2024 17:16-0400 Promise to Return Ronobir AMPARO [facility] 04-06-2024 16:06-0400 Hourly Rounding Ronobir AMPARO [facility] 04-06-2024 16:06-0400 Promise to Return Ronobir AMPARO [facility] 04-06-2024 15:54-0400 gluc 137 mg/dL Ronobir AMPARO [facility] 04-06-2024 15:34-0400 SaO2% (BldA) [Mass fraction] 95 % Ronobir AMPARO [facility] 04-06-2024 15:27-0400 Heart rate 67 /min Ronobir AMAPRO [facility] 04-06-2024 15:27-0400 SaO2% (BldA) [Mass fraction] 94 % Ronobir AMPARO [facility] 04-06-2024 15:25-0400 Diastolic blood pressure 86 mm[Hg] Ronobir AMPARO [facility] 04-06-2024 15:25-0400 Mean blood pressure 109 mm[Hg] Ronobir AMPARO [facility] 04-06-2024 15:25-0400 Systolic blood pressure 156 mm[Hg] Ronobir AMPARO [facility] 04-06-2024 15:25-0400 Body temperature 97.52 [degF] Ronobir AMPARO [facility] 04-06-2024 15:00-0400 Respiratory rate 18 /min Ronobir AMPARO [facility] 04-06-2024 11:46-0400 gluc 236 mg/dL Ronobir AMPARO [facility] 04-06-2024 11:21-0400 Heart rate 79 /min Ronobir AMPARO [facility] 04-06-2024 11:21-0400 SaO2% (BldA) [Mass fraction] 95 % Ronobir AMPARO [facility] 04-06-2024 11:18-0400 Mean blood pressure 90 mm[Hg] Ronobir AMPARO [facility] 04-06-2024 11:18-0400 Body temperature 97.88 [degF] Ronobir MAPARO [facility] 04-06-2024 07:53-0400 gluc 123 mg/dL Ronobir AMPARO [facility] 04-06-2024 07:35-0400 Mean blood pressure 102 mm[Hg] Ronobir AMPARO [facility] 04-06-2024 07:35-0400 Body temperature 97.7 [degF] Ronobir AMPARO [facility] 04-06-2024 01:03-0400 Body temperature 98.24 [degF] Ronobir AMPARO [facility] 04-06-2024 01:03-0400 Mean blood pressure 86 mm[Hg] Ronobir AMPARO [facility] 04-06-2024 01:03-0400 Respiratory rate 18 /min Ronobir AMPARO [facility] 04-05-2024 16:24-0400 Blood Pressure Location Ronobir AMPARO [facility] 04-05-2024 11:00-0400 Body temperature 98.06 [degF] Ronobir AMPARO [facility] 04-05-2024 11:00-0400 Mean blood pressure 83 mm[Hg] Ronobir AMPARO [facility] 04-05-2024 07:00-0400 Body temperature 97.52 [degF] Ronobir AMPARO [facility] 04-05-2024 07:00-0400 Mean blood pressure 78 mm[Hg] Ronobir AMPARO [facility] 04-04-2024 17:00-0400 Blood Pressure Location Ronobir AMPARO [facility] 04-04-2024 17:00-0400 Respiratory rate 67 /min Ronobir AMPARO [facility] 04-04-2024 05:00-0400 Respiratory rate 20 /min Ronobir AMPARO [facility] 04-04-2024 03:32-0400 Heart rate 89 /min Ronobir AMPARO [facility] 04-04-2024 03:32-0400 Respiratory rate 24 /min Ronobir AMPARO [facility] 04-04-2024 00:30-0400 Heart rate 114 /min Tika CHRISTENSEN [facility] 04-02-2024 15:50-0400 Body height 152.4 cm [facility] 04-02-2024 15:50-0400 Body mass index (BMI) [Ratio] 38.2 kg/m2 [facility] 04-02-2024 15:50-0400 Body temperature 98.4 [degF] [facility] 04-02-2024 15:50-0400 Body weight 88.9 kg [facility] 04-02-2024 15:50-0400 Diastolic blood pressure 69 mm[Hg] [facility] 04-02-2024 15:50-0400 Heart rate 83 /min [facility] 04-02-2024 15:50-0400 SaO2% (BldA) [Mass fraction] 97 % [facility] 04-02-2024 15:50-0400 Systolic blood pressure 112 mm[Hg] [facility] 03-19-2024 10:59-0400 Body height 152.4 cm [facility] 03-19-2024 10:59-0400 Body mass index (BMI) [Ratio] 38.5 kg/m2 [facility] 03-19-2024 10:59-0400 Body weight 89.35 kg [facility] 03-19-2024 10:59-0400 Diastolic blood pressure 74 mm[Hg] [facility] 03-19-2024 10:59-0400 Heart rate 80 /min [facility] 03-19-2024 10:59-0400 Respiratory rate 16 /min [facility] 03-19-2024 10:59-0400 SaO2% (BldA) [Mass fraction] 98 % [facility] 03-19-2024 10:59-0400 Systolic blood pressure 114 mm[Hg] [facility] 12-20-2023 11:19-0400 Body height 152.4 cm [facility] 12-20-2023 11:19-0400 Body mass index (BMI) [Ratio] 36.9 kg/m2 [facility] 12-20-2023 11:19-0400 Body weight 85.72 kg [facility] 12-20-2023 11:19-0400 Diastolic blood pressure 74 mm[Hg] [facility] 12-20-2023 11:19-0400 Heart rate 74 /min [facility] 12-20-2023 11:19-0400 SaO2% (BldA) [Mass fraction] 97 % [facility] 12-20-2023 11:19-0400 Systolic blood pressure 124 mm[Hg] [facility] 12-12-2023 13:18-0400 Body height 152.4 cm [facility] 12-12-2023 13:18-0400 Body mass index (BMI) [Ratio] 36.8 kg/m2 [facility] 12-12-2023 13:18-0400 Body weight 85.44 kg [facility] 12-12-2023 13:18-0400 Diastolic blood pressure 68 mm[Hg] [facility] 12-12-2023 13:18-0400 Heart rate 88 /min [facility] 12-12-2023 13:18-0400 Systolic blood pressure 121 mm[Hg] [facility] 11-22-2023 12:05-0400 Body height 149.9 cm Zach Bui MD Work Phone: [facility] 11-22-2023 12:05-0400 Body mass index (BMI) [Ratio] 36.76 kg/m2 Zach Bui MD Work Phone: [facility] 11-22-2023 12:05-0400 Body weight 82.56 kg Zach Bui MD Work Phone: [facility] 11-22-2023 12:05-0400 Diastolic blood pressure 67 mm[Hg] Zach Bui MD Work Phone: [facility] 11-22-2023 12:05-0400 Heart rate 80 /min Zach Bui MD Work Phone: [facility] 11-22-2023 12:05-0400 Systolic blood pressure 122 mm[Hg] Zach Bui MD Work Phone: [facility] 08-02-2023 13:08-0500 Hourly Rounding [facility] 08-02-2023 13:08-0500 Promise to Return [facility] 08-02-2023 12:08-0500 Hourly Rounding [facility] 08-02-2023 12:08-0500 Promise to Return [facility] 08-02-2023 11:31-0500 Heart rate 85 /min [facility] 08-02-2023 11:31-0500 SaO2% (BldA) [Mass fraction] 94 % [facility] 08-02-2023 11:25-0500 Diastolic blood pressure 69 mm[Hg] [facility] 08-02-2023 11:25-0500 Mean blood pressure 83 mm[Hg] [facility] 08-02-2023 11:25-0500 Systolic blood pressure 110 mm[Hg] [facility] 08-02-2023 11:25-0500 Body temperature 97.34 [degF] [facility] 08-02-2023 11:08-0500 Hourly Rounding [facility] 08-02-2023 11:08-0500 Promise to Return [facility] 08-02-2023 11:00-0500 Respiratory rate 18 /min [facility] 08-02-2023 08:27-0500 Heart rate 74 /min [facility] 08-02-2023 08:27-0500 SaO2% (BldA) [Mass fraction] 93 % [facility] 08-02-2023 08:24-0500 Body temperature 97.88 [degF] [facility] 08-02-2023 08:24-0500 Diastolic blood pressure 72 mm[Hg] [facility] 08-02-2023 08:24-0500 Mean blood pressure 90 mm[Hg] [facility] 08-02-2023 08:24-0500 Systolic blood pressure 124 mm[Hg] [facility] 08-02-2023 00:20-0500 Body temperature 97.88 [degF] [facility] 08-02-2023 00:20-0500 Diastolic blood pressure 82 mm[Hg] [facility] 08-02-2023 00:20-0500 Heart rate 71 /min [facility] 08-02-2023 00:20-0500 Mean blood pressure 90 mm[Hg] [facility] 08-02-2023 00:20-0500 SaO2% (BldA) [Mass fraction] 94 % [facility] 08-02-2023 00:20-0500 Systolic blood pressure 112 mm[Hg] [facility] 08-01-2023 12:00-0500 Respiratory rate 16 /min [facility] 07-31-2023 16:26-0500 Blood Pressure Location [facility] 07-31-2023 16:26-0500 Heart rate 65 /min [facility] 07-31-2023 16:26-0500 Respiratory rate 18 /min [facility] 07-31-2023 11:28-0500 Blood Pressure Location [facility] 07-31-2023 11:28-0500 Heart rate 70 /min [facility] 07-31-2023 10:43-0500 Mean blood pressure 82 mm[Hg] Christie Zayas [facility] 07-31-2023 10:43-0500 Respiratory rate 18 /min Christieesha Zayas [facility] 07-31-2023 10:00-0500 Mean blood pressure 69 mm[Hg] Christie Zayas [facility] 07-31-2023 10:00-0500 Respiratory rate 20 /min [facility] 07-31-2023 09:45-0500 Mean blood pressure 70 mm[Hg] Christie Zayas [facility] 07-30-2023 20:31-0500 Heart rate 75 /min [facility] 06-15-2023 11:20-0500 Body height 152.4 cm Yaneth Germania Other [employer] Other 06-15-2023 11:20-0500 Body mass index (BMI) [Ratio] 35.35 kg/m2 Yaneth Germania Other [employer] Other 06-15-2023 11:20-0500 Body temperature 98.7 [degF] Yaneth Germania Other [employer] Other 06-15-2023 11:20-0500 Body weight 82.1 kg Yaneth Germania Other [employer] Other 06-15-2023 11:20-0500 Diastolic blood pressure 75 mm[Hg] Yaneth Germania Other [employer] Other 06-15-2023 11:20-0500 Respiratory rate 18 /min Yaneth Germania Other [employer] Other 06-15-2023 11:20-0500 SaO2% (BldA) [Mass fraction] 96 % Yaneth Germania Other [employer] Other 06-15-2023 11:20-0500 Systolic blood pressure 111 mm[Hg] Yaneth Germania Other [employer] Other 06-02-2023 14:15-0500 Body height 152.4 cm Harpal Hayes Other [employer] Other 06-02-2023 14:15-0500 Body mass index (BMI) [Ratio] 35.27 kg/m2 Harpal Hayes Other [employer] Other 06-02-2023 14:15-0500 Body weight 81.92 kg Harpal Hayes Other [employer] Other 06-02-2023 14:15-0500 Diastolic blood pressure 76 mm[Hg] Harpal Hayes Other [employer] Other 06-02-2023 14:15-0500 SaO2% (BldA) [Mass fraction] 96 % Harpal Hayes Other [employer] Other 06-02-2023 14:15-0500 Systolic blood pressure 134 mm[Hg] Harpal Hayes Other [employer] Other 03-07-2023 10:15-0400 Body height 152.4 cm Harpal Hayes Other [employer] Other 03-07-2023 10:15-0400 Body mass index (BMI) [Ratio] 36.83 kg/m2 Harpal Hayes Other [employer] Other 03-07-2023 10:15-0400 Body weight 85.55 kg Harpal Hayes Other [employer] Other 03-07-2023 10:15-0400 Diastolic blood pressure 82 mm[Hg] Harpal Hayes Other [employer] Other 03-07-2023 10:15-0400 SaO2% (BldA) [Mass fraction] 93 % Harpal Hayes Other [employer] Other 03-07-2023 10:15-0400 Systolic blood pressure 140 mm[Hg] Harpal Hayes Other [employer] Other 12-20-2022 11:20-0400 Body height 152.4 cm Yaneth Germania Other [employer] Other 12-20-2022 11:20-0400 Body temperature 96.7 [degF] Yaneth Germania Other [employer] Other 12-20-2022 11:20-0400 Diastolic blood pressure 67 mm[Hg] Yaneth Germania Other [employer] Other 12-20-2022 11:20-0400 Respiratory rate 18 /min Yaneth Germania Other [employer] Other 12-20-2022 11:20-0400 SaO2% (BldA) [Mass fraction] 97 % Yaneth Germania Other [employer] Other 12-20-2022 11:20-0400 Systolic blood pressure 104 mm[Hg] Yaneth Germania Other [employer] Other 06-14-2022 12:40-0500 Body height 152.4 cm Yaneth Germania Other [employer] Other 06-14-2022 12:40-0500 Body mass index (BMI) [Ratio] 35.15 kg/m2 Yaneth Germania Other [employer] Other 06-14-2022 12:40-0500 Body temperature 97.3 [degF] Yaneth Germania Other [employer] Other 06-14-2022 12:40-0500 Body weight 81.65 kg Yaneth Germania Other [employer] Other 06-14-2022 12:40-0500 Diastolic blood pressure 73 mm[Hg] Yaneth Germania Other [employer] Other 06-14-2022 12:40-0500 Respiratory rate 18 /min Yaneth Germania Other [employer] Other 06-14-2022 12:40-0500 SaO2% (BldA) [Mass fraction] 95 % Yaneth Germania Other [employer] Other 06-14-2022 12:40-0500 Systolic blood pressure 115 mm[Hg] Yaneth Germania Other [employer] Other 01-08-2022 03:50-0400 Diastolic blood pressure 80 mm[Hg] [facility] 01-08-2022 03:50-0400 Heart rate 82 /min [facility] [employer] 01-08-2022 03:50-0400 Respiratory rate 16 /min [facility] 01-08-2022 03:50-0400 SaO2% (BldA) [Mass fraction] 100 % [facility] 01-08-2022 03:50-0400 Systolic blood pressure 140 mm[Hg] [facility] 06-18-2021 12:00-0500 Body height 152.4 cm Yaneth Germania Other [employer] Other 06-18-2021 12:00-0500 Body temperature 96.3 [degF] Yaneth Germania Other [employer] Other 06-18-2021 12:00-0500 Diastolic blood pressure 74 mm[Hg] Yaneth Germania Other [employer] Other 06-18-2021 12:00-0500 Respiratory rate 18 /min Yaneth Germania Other [employer] Other 06-18-2021 12:00-0500 SaO2% (BldA) [Mass fraction] 96 % Yaneth Germania Other [employer] Other 06-18-2021 12:00-0500 Systolic blood pressure 120 mm[Hg] Yaneth Germania Other [employer] Other Encounters Encounter Date Encounter Type Care Provider Facility Start: 01-29-2025 End: 01-29-2025 Patient encounter procedure Jaden Kaur MD -[facility] [address] Work Phone: Start: 01-29-2025 End: 01-29-2025 ambulatory Harpal Hayes MD Work Phone: [facility] Work Phone: Start: 11-20-2024 End: 11-20-2024 ambulatory AB [facility] Start: 11-19-2024 End: 11-19-2024 Telephone encounter Yara Daniel [facility] Start: 11-12-2024 End: 11-12-2024 ambulatory [facility] Work Phone: Start: 11-12-2024 End: 11-12-2024 Patient encounter procedure [facility] Work Phone: Start: 08-13-2024 End: 08-13-2024 ambulatory [facility] Work Phone: Start: 08-13-2024 End: 08-13-2024 Patient encounter procedure [facility] Physician [facility] Work Phone: Start: 08-13-2024 End: 08-13-2024 ambulatory [facility] Work Phone: Start: 08-13-2024 End: 08-13-2024 Patient encounter procedure [facility] Phys[facility] Work Phone: Start: 08-08-2024 Non-patient / Non-visit [facility] Physician [facility] Work Phone: Start: 07-18-2024 Non-patient / Non-visit [facility] Physician [facility] Work Phone: Start: 07-16-2024 Non-patient / Non-visit [facility] Physician [facility] Work Phone: Start: 07-15-2024 Non-patient / Non-visit [facility] Physician [facility] Work Phone: Start: 07-14-2024 Non-patient / Non-visit [facility] Physician [facility] Work Phone: Start: 07-13-2024 Non-patient / Non-visit [facility] Physician [facility] Work Phone: Start: 07-12-2024 End: 07-16-2024 Non-patient / Non-visit [facility] Physic [facility] Work Phone: Start: 07-12-2024 Non-patient / Non-visit [facility] Physician [facility] Work Phone: Start: 05-28-2024 End: 05-28-2024 ambulatory EHAB [facility] Start: 04-04-2024 End: 04-06-2024 Evaluation and management of inpatient Ronobir R AMPARO Facility:[facility] Start: 04-04-2024 Emergency department patient visit DO Terry Delvalle Facility:[facility] Start: 04-04-2024 End: 04-06-2024 Evaluation and management of inpatient Augustusobir R AMPARO [facility] Start: 04-02-2024 End: 04-02-2024 ambulatory [facility] Work Phone: Start: 04-02-2024 End: 04-02-2024 Patient encounter procedure [facility] Physician [facility] Work Phone: Start: 03-19-2024 End: 03-19-2024 ambulatory [facility] Work Phone: Start: 03-19-2024 End: 03-19-2024 Patient encounter procedure [facility] Physician [facility] Work Phone: Start: 01-16-2024 Non-patient / Non-visit [facility] Physician [facility] Work Phone: Start: 12-20-2023 End: 12-20-2023 ambulatory [facility] Work Phone: Start: 12-20-2023 End: 12-20-2023 Patient encounter procedure [facility] Physician [facility] Work Phone: Start: 12-13-2023 Non-patient / Non-visit [facility] Physician [facility] Work Phone: Start: 12-12-2023 End: 12-12-2023 ambulatory [facility] Work Phone: Start: 12-12-2023 End: 12-12-2023 Patient encounter procedure [facility] Work Phone: Start: 11-22-2023 End: 11-22-2023 Office outpatient visit 15 minutes Zach Bui MD Work Phone: [facility] Comment on above: Urge incontinence (P rimary Dx) Start: 11-22-2023 End: 11-22-2023 ambulatory ZACH BUI [facility] Start: 07-31-2023 End: 08-02-2023 Evaluation and management of inpatient Christie Zayas Facility:[facility] Start: 07-30-2023 End: 08-02-2023 Evaluation and management of inpatient Christie Zayas [facility] Start: 07-11-2023 End: 07-11-2023 ambulatory LINDA ROUSE Not Available Start: 06-23-2023 End: 06-23-2023 ambulatory Harpal Hayes Other [employer] Other Start: 06-23-2023 Telephone encounter Harpal Hayes [facility] Start: 06-22-2023 End: 06-22-2023 ambulatory Harpal Hayes Other [employer] Other Start: 06-22-2023 Telephone encounter Harpal Hayes [facility] Start: 06-15-2023 End: 06-15-2023 ambulatory Yaneth Germania Other [employer] Other Start: 06-15-2023 Office outpatient vi sit 25 minutes Yaneth Germania [facility] Start: 06-02-2023 End: 06-02-2023 ambulatory Harpal Hayes Other [employer] Other Start: 06-02-2023 Office outpatient vi sit 15 minutes Harpal Hayes [facility] Start: 05-24-2023 End: 05-24-2023 ambulatory Harpal Hayes Other [employer] Other Start: 05-24-2023 Telephone encounter Harpal Hayes [facility] Start: 05-18-2023 End: 05-18-2023 ambulatory Harpal Hayes Other [employer] Other Start: 05-18-2023 Telephone encounter Harpal Hayes [facility] Start: 05-09-2023 End: 05-09-2023 ambulatory Harpal Hayes Other [employer] Other Start: 05-09-2023 Telephone encounter Harpal Hayes [facility] Start: 03-15-2023 End: 03-15-2023 ambulatory Harpal Hayes Other [employer] Other Start: 03-15-2023 Telephone encounter Harpal Hayes [facility] Start: 03-07-2023 End: 03-07-2023 ambulatory Harpal Freddy Other [employer] Other Start: 03-07-2023 Office outpatient vi sit 25 minutes Harpal Hayes [facility] Start: 03-07-2023 Telephone encounter Harpal Hayes [facility] Start: 02-23-2023 End: 02-23-2023 ambulatory Harpal Hayes Other [employer] Other Start: 02-23-2023 Telephone encounter Harpal Hayes [facility] Start: 02-18-2023 End: 02-18-2023 ambulatory Harpal Hayes Other [employer] Other Start: 02-18-2023 Telephone encounter Harpal Hayes [facility] Start: 01-27-2023 End: 01-27-2023 ambulatory Harpal Hayes Other [employer] Other Start: 01-27-2023 Telephone encounter Harpal Hayes [facility] Start: 01-11-2023 End: 01-11-2023 ambulatory Harpal Freddy Other [employer] Other Start: 01-11-2023 Telephone encounter Harpal SHEARER [facility] Start: 12-20-2022 End: 12-20-2022 ambulatory Yaneth Germania Other [employer] Other Start: 12-20-2022 Office outpatient vi sit 25 minutes Yaneth Germania [facility] Start: 12-06-2022 End: 12-06-2022 ambulatory Yaneth Germania Other [employer] Other Start: 12-06-2022 Telephone encounter Yaneth Germania [facility] Start: 12-06-2022 End: 12-06-2022 Off-Site [facility] Start: 12-03-2022 End: 12-17-2022 Evaluation and management of inpatient [facility] Start: 12-01-2022 End: 12-01-2022 Off-Site [facility] Start: 11-15-2022 End: 11-15-2022 Off-Site [facility] Start: 11-14-2022 End: 12-01-2022 Evaluation and management of inpatient [facility] Start: 06-14-2022 End: 06-14-2022 ambulatory Yaneth Germania Other [employer] Other Start: 06-14-2022 Office outpatient vi sit 25 minutes Yaneth Germania [facility] Start: 06-09-[address] HARPAL HAYES Facil ity:H1 Start: 05-27-2022 End: 05-27-[address] SULEMAN OLSEN Facility:H1 Start: 04-26-2022 Gynecological examination normal Harpal Hayes Other [employer] Other Start: 03-11-2022 End: 03-11-2022 ambulatory CHRISTOPHER ABARCA Facility:H1 Start: 02-21-2022 End: 02-21-2022 ambulatory ANDRADE LEWIS Facility:H1 Start: 02-18-2022 End: 02-24-2022 ambulatory UNKNOWN PROVIDER Facility:[facility] Start: 01-08-2022 End: 01-08-2022 ambulatory [facility] Treat and Transport Start: 01-08-2022 End: 01-08-2022 Emergency department patient visit [facility] Triage, Treat and Transport Comment on above: Arrived Start: 01-06-2022 End: 01-07-2022 ambulatory MEI DAS Facility:H1 Start: 12-10-2021 End: 12-11-2021 ambulatory YANETH GERMANIA Facility:H1 Start: 11-16-2021 End: 11-17-[address] LINDA REED Facility:H1 Start: 09-28-2021 End: 10-28-[address] HARPAL HAYES Facility:H1 Start: 08-31-[address] HARPAL HAYES Facil ity:H1 Start: 06-18-2021 End: 06-18-2021 ambulatory Yaneth Germania Other [employer] Other Start: 06-18-2021 Office outpatient vi sit 25 minutes Yaneth Germania [facility] Arjun Start: 06-12-2021 End: 06-13-2021 ambulatory YANETH GERMANIA Facility:H1 Start: 06-09-2017 End: 06-10-2017 Ambulatory DEFAULT PHYSICIAN Facility:[facility] Start: 06-07-2017 End: 06-08-2017 Ambulatory DEFAULT PHYSICIAN Facility:[facility] Start: 06-02-2017 End: 06-03-2017 Ambulatory DEFAULT PHYSICIAN Facility:[facility] Start: 05-10-2017 End: 05-11-2017 Ambulatory DEFAULT PHYSICIAN Facility:[facility] Procedures Date Procedure Procedure Detail Performing Clinician Arthroplasty of knee Christie Zayas Bone structure of fe mur (body structure) Christie Marquez Comment on above: stainless steel yadiel placed Depression screening Harpal Freddy Other History of operative procedure on knee Yaneth Germania Other None (qualifier value) Tena TOLBERT Removal of suture Harpal Anitra gee Other Screening for malign ant neoplasm of breast Harpal Hayes Other Plan of Treatment Date Care Activity Detail Author Start: 02-04-2025 Influenza vaccination Influenza Vaccine [facility] Start: 01-29-2025 Aldolase measurement [facility] Start: 11-21-2024 Adult BMI Screening Adult BMI Screening [facility] Start: 11-21-2024 Tobacco Screening Tobacco Screening [facility] Start: 11-20-2024 End: 11-20-2024 Patient encounter procedure 11/20/2024 1:15 PM EDT Office Visit [facility] [address] [place] [address] [place] [address] Zach Bui MD [address] [place] [address] [facility] Start: 11-12-2024 Patient referral [facility] Work Phone: Start: 02-05-2024 Influenza vaccination Influenza Vaccine [facility] Start: 03-06-2022 Influenza vaccination Influenza Vaccine (#1) [facility] Start: 01-08-2022 Welcome to Medicare Visit (G0402) Welcome to Medicare Visit (G0402) [facility] Start: 2009 Fall Risk Screening Fall Risk Screening [facility] Start: 2009 Pneumococcal vaccination Pneumococcal Vaccine(s) (65+ yrs) (1 - PCV) [facility] Start: 2009 Screening for osteoporosis Bone Densitometry [facility] Start: 1994 Administration of varicella zoster vaccine Zoster (Shingles) Vaccine (1 of 2) [facility] Start: 1994 Shingles (RZV) Vaccine (1 of 2) Shingles (RZV) Vaccine (1 of 2) [facility] Start: 1963 DTaP,Tdap and Td Vaccines (1 - Tdap) DTaP,Tdap and Td Vaccines (1 - Tdap) [facility] Start: 1962 Adult BMI Follow Up Plan Adult BMI Follow Up Plan [facility] Start: 1962 Hepatitis C screening [facility]atitis C Antibody [facility] Start: 1962 Tetanus + diphtheria + acellular pertussis vaccine (product) [facility]ap [facility] Start: 1956 Depression Screening Depression Screening [facility] Start: 1944 COVID-19 Vaccine (#1) COVID-19 Vaccine (#1) [facility] Start: 1944 Medicare Annual Wellness Visit Medicare Annual Wellness Visit [facility] Patient referral [facility] Work Phone: Renal function 1999 panel - Serum or Plasma [facility] Renal function 1999 panel - Serum or Plasma [facility] Immunizations Immunization Date Immunization Notes Care Provider Fa sarah NEGATED: Highlighted row has not occurred! 6 pneumococcal polysaccharide vaccine, 23 valent Patient Objection Yaneth Marshall Other [employer] Other Payers Date Payer Category Payer Self-pay [id number] 2017 Medicaid [id number] 2017 Unknown [id number] 1994 Medicare [id number] 1959 Medicare [id number] 2.1 [id number] 1944 Unknown [id number] 2.16. 840.1.455953.3.579.2.732 1944 Unknown [id number] 2.16.84 0.1.427527.3.579.2.593 1944 Unknown [id number] 2.16.84 0.1.458002.3.579.2.593 1944 Unknown [id number] 2.16.84 0.1.593410.3.579.2.593 1944 Unknown [id number] 2.16.84 0.1.052544.3.579.2.593 1944 Unknown [id number] 2.16.84 0.1.278776.3.579.2.593 1944 Unknown [id number] 2.16.84 0.1.885686.3.579.2.593 1944 Unknown [id number] 2.16.84 0.1.068662.3.579.2.593 1944 Unknown [id number] 2.16.84 0.1.425729.3.579.2.593 1944 Unknown [id number] 2.16.84 0.1.232187.3.579.2.593 1944 Unknown [id number] 2.16.84 0.1.263753.3.579.2.593 1944 Unknown [id number] 2.16.84 0.1.856380.3.579.2.1259 1944 Unknown [id number] 2.16.8 40.1.525178.3.579.2.1286 1944 Unknown [id number] 2.16.8 40.1.582174.3.579.2.727 1944 Unknown [id number] 2.16.8 40.1.053510.3.579.2.727 1944 Unknown [id number] 2.16.8 40.1.152921.3.579.2.727 1944 Unknown [id number] 2.16.8 40.1.025543.3.579.2.727 1944 Unknown [id number] 2.16.8 40.1.074260.3.579.2.727 1944 Unknown [id number] 2.16.8 40.1.776132.3.579.2.727 1944 Unknown [id number] 2.16.8 40.1.346442.3.579.2.727 1944 Unknown [id number] 2.16.8 40.1.000883.3.579.2.727 1944 Unknown [id number] 2.16.8 40.1.016864.3.579.2.727 1944 Unknown [id number] 2.16.8 40.1.798506.3.579.2.727 1944 Unknown [id number] 2.16.8 40.1.555013.3.579.2.727 1944 Unknown [id number] 2.16.8 40.1.273181.3.579.2.727 1944 Unknown [id number] 2.16.8 40.1.705585.3.579.2.727 Unknown Unknown [id number] 2.16.8 40.1.043672.3.579.2.531 Social History Date Type Detail Facility Unknown if ever smoked [employer] Other Start: 07-17-2020 End: 11-22-2023 Sex Assigned At [employer] [facility] Tobacco smoking status FLIS Tobacco smoking consumption unknown [facility] Start: 1945 Sex Assigned At Not on file [facility] Tobacco smoking status No Smoking Status Entered [facility] Start: 07-27-2018 End: 04-21-2022 Tobacco smoking status NHIS Never smoked tobacco (finding) [facility] Start: 1945 Sex Assigned At Female [facility] Tobacco [facility] Comment on above: Denies. Start: 04-21-2022 Tobacco use and exposure Smokeless tobacco non-user [facility] Start: 11-22-2023 Alcoholic beverage intake Ex-drinker (finding) [facility] Start: 07-17-2020 End: 11-22-2023 History of Social function [facility] Childcare Unknown [facility] Start: 01-09-2015 End: 08-13-2024 Sex Female (finding) [facility] Functional Status Date Assessment Result Facility 04-04-2024 Functional Status No [facility] 04-04-2024 Functional Status [facility] 07-31-2023 Functional Status No [facility] 07-30-2023 Functional Status [facility] Clinical Notes 06-18-2021 to 11-20-2024 Telephone Encounter - HERRERA Mack - 11/19/2024 9:43 AM EDTTelephone Encounter - Zach Bui MD - 11/19/2024 9:43 AM EDTTelephone Encounter - Marcelo Stout CMA - 11/19/2024 9:43 AM EDT Note Date & Type Note Facility 11-20-2024 Note [facility] Cardiology Clinic Note Chief Complaint: Patient here for 6 mo follow up. Patient states cardiac alanis she feels fine. Pain in her legs/shoulder/all over. Patient will be seeing Rheumatology in [place] for her pain issues. HPI: Doing well; denies new symptoms Blood [...] no interventions. 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 Review of Systems Musculoskeletal: Positive for arthritis, joint pain and stiffness. Past Medical History She has no past [...] Rfl: pregabalin (Lyrica) 150 mg capsule, Take 100 mg by mouth two times daily., Disp: , Rfl: rOPINIRole (Requip) 4 mg tablet, Take 2 mg by mouth at bedtime., Disp: , Rfl: traZODone (Desyrel) 150 mg tablet, TAKE 1 TABLET BY ORAL ROUTE EVERY DAY, Disp: , Rfl: Last Recorded Vitals BP 120/67 (BP Location: Left arm, Patient Position: Sitting) Pulse 68 Ht 1.499 m (4' 11 ) Wt 88.5 kg (195 lb) SpO2 98% BMI 39.39 kg/m??? Physical Examination: GENERAL: alert and oriented [...] peripheral pulses are 2+ bilaterally. No rash/skin disco (more content not included)... [facility] 11-19-2024 Miscellaneous Notes Patient's Daughter is calling asking if it is necessary for her Mom to keep her appt with you. This appt is her yearly appt. She states the Myrbetriq is working really well. She is able to stay dry for the most part. She can get her refills through her primary care physician and return to see me if her symptoms progress Daughter called office to check status of this message, I informed her of Dr. Bui answer and appointment was canceled. documented in this encounter [facility] 11-19-2024 Telephone encounter Note Patient's Daughter is calling asking if it is necessary for her Mom to keep her appt with you. This appt is her yearly appt. She states the Myrbetriq is working really well. She is able to stay dry for the most part. [facility] 11-19-2024 Telephone encounter Note She can get her refills through her primary care physician and return to see me if her symptoms progress [facility] 11-19-2024 Telephone encounter Note Daughter called office to check status of this message, I informed her of Dr. Bui answer and appointment was canceled. 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 She was admitted to [facility] in Mar 2024 and [...] no interventions. 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 H (more content not included)...[facility] NoteMicrobiology PROCEDURE: Blood Culture Charcoal [R1] SOURCE: Blood BODY SITE: Wrist R COLLECTED DATE/TIME: 04/04/2024 01:09 EDT RECEIVED DATE/TIME: 04/04/2024 01:27 EDT START DATE/TIME: 04/04/2024 01:27 EDT FREE TEXT SOURCE: Terry Delvalle DO, DO, Kaylinn A FINAL REPORTS Final Report [] Verified Date/Time: 04/11/2024 03:00 EST No growth at 7 days. Performing Locations R1: This test was performed at: [facility], [address] [place] [address], [facility] , , Nt[facility]uvProvidence HospitalComment on above:Performed By: #### [id number] #### [facility] [address] [place] [address] [id number] NoteMicrobiology PROCEDURE: Blood Culture Charcoal [R1] SOURCE: Blood BODY SITE: Arm R COLLECTED DATE/TIME: 04/04/2024 01:09 EDT RECEIVED DATE/TIME: 04/04/2024 01:27 EDT START DATE/TIME: 04/04/2024 01:27 EDT FREE TEXT SOURCE: IV start Dokken DO, Kaylinn A Dokken DO, Kaylinn A FINAL REPORTS Final Report [] Verified Date/Time: 04/11/2024 03:00 EST No growth at 7 days. Performing Locations R1: This test was performed at: [facility], [address] [place] [address], [id number] [place] [address], [address] [place], [place] [address]Comment on above:Performed By: #### [id number] #### [facility] [address] [place] [address] [id number] NoteMicrobiology PROCEDURE: Blood Culture Charcoal [R1] SOURCE: [...] Locations R1: This test was performed at: [facility], [address] [place] [address], [address] [place], [place] [address]Comment on above:Performed By: #### [id number] #### [facility] [address] [place] [address] [id number] NoteMicrobiology PROCEDURE: Blood Culture Charcoal [R1] SOURCE: [...] This test was performed at: [facility], [address] [place] [address], [id number]- , [place], XpeesyProvidence HospitalComment on above:Performed By: #### [id number] #### [facility] [address] [place] [address] [id number] Hospital Discharge instructions Patient Education 04/06/2024 15:10:57 Community-Acquired Pneumonia, Adult, Nkuy-dg-Pcxp Community-Acquired Pneumonia, Adult Pneumonia is an infection [...] Follow these instructions at home: Medicines Take tksh-wig-gsqdskq and prescription medicines only as told by [...] cannot use soap and water, use hand technical instructor. Contact a doctor if: You have a [...] provider. Document Revised: 07/21/2022 Document Reviewed: 07/21/2022 [employer] Patient Education 2023 Exie. 04/06/2024 15:10:57 Sepsis, Self Care, Adult Sepsis, [...] Follow these instructions at home: Medicines Take hyny-aun-pimwklq and prescription medicines only as told by [...] as dressing yourself, bathing, or walking up thestairs. It may take a while to rebuild [...] and water are not available, use hand technical instructor. Practice good hygiene. Keep cuts clean and [...] you need help quitting, ask your health careprovider. Talk to trusted family members and friends about your condition. Explain your symptoms to them, andlet them know that you are working with [...] right away. Call your local emergency services (963 in the [place] Do not drive yourself to the hospital. If you ever feel like you may hurt yourself or others, or have thoughts about taking your own life,get help right away. Go to your nearest emergency department or: Call your local emergency services (404 in the [place] Call a suicide crisis helpline, such as the National Suicide Prevention Lifeline at or 656 in the [place] This is open 24 hours a day. Text the Crisis Text Line at 060860 (in the [place] Summary Sepsis is a serious illness that may require intensive care in a hospital. You may experience long-term health effects after you are discharged from the hospital. Try to set small, achievable goals each week, such as dressing yourself, bathing, or walking up thestairs. It may take a while to rebuild your strength. Know what symptoms you should get help right away for. Keep all follow-up visits. This is important. This information is not intended to replace advice given to you by your health care provider. Make sure you discuss any questions you have with your health care provider. Document Revised: 04/25/2023 Document Reviewed: 04/25/2023 [employer] Patient Education 2023 Exie. 04/06/2024 15:10:57 Sepsis, Diagnosis, Adult Sepsis, Diagnosis, Adult Sepsis is a serious bodily reaction to an infection. The infection that triggers sepsis may be froma bacteria, virus, or fungus. Sepsis can result [...] symptoms, medical history, and physical exam. Other testsmay also be done to find out the [...] Follow these instructions at home: Medicines Take wpol-jnx-klxnrax and prescription medicines only as told by [...] provider. Document Revised: 04/25/2023 Document Reviewed: 04/25/2023 [employer] Patient Education 2023 Exie. Follow Up Care 04/04/2024 00:26:14 With:Toby Santiago Address: [facility] [address] [place] [address]- Business (1) When:05/07/2024 14:00:00 With:Brianne Jane Address: [address] [place] [address], [facility] [address] [address] [phone] Business (1) When:5 to 7 days Comments:Doctor's office is closed for the day. Please call Tuesday to make hospital follow up appointment. With:Follow up with your primary cardiology team as soon as possible Address:Unknown When: Unknown With:HARPAL HAYES Address: [address] [place] [phone]- Business (1) When:04/12/2024 11:30:00 With:Patient is currenct with [facility]. Address:Unknown When: Unknown [facility] 11-01-2024 NoteDischarge Summary Admission and Discharge Information Admit Date/Time:04/04/2024 02:13 Admitting Physician - Tika CHRISTENSEN DO Consulting Physician - Delphine BRIGGS, [facility], [place] Admitting Diagnoses: Discharge Order Date Discharge [...] and hypoxemia at [facility]. Johann Patterson () [phone], pt. is a FULL CODE, he states no prolonged code situation. -Pt. and her have made dgt. Lilian SHALOMOA-HC [phone]. 1. Acute respiratory failure with hypoxia (J96.01: [...] cardio standpoint, F/U w/ [facility] [place] 6. Acute kidney injury superimposed on stage [...] folate def. -Baseline hgb. level - 03-16 -Downtrending today -> hold heparin sq -Anemia panel -> Increase ferrous sulfate 325mg to daily (was on M// dosing), miralax daily, folic acid 1g daily, [...] - HHC w/ thera (more content not included)...[facility] Comment on above:Result Comment: Electronically Signed By: Akua NICHOLSON\.br\Date and Time Signed: 04/06/24 15:33 EDT\.br\Electronically Co-Signed By: Miguel Ramires DO.br\Date and Time Co-Signed: 04/06/24 16:58 EDT 04-06-2024 Evaluation + Plan noteExtracted from: Title:Discharge Note Author:Madeline NICHOLSONe Date:04/06/24 Hemodynamically stable condi tion Discharge To, [...] tab(s), SubLingual, q5min, PRN, Unable to obtain [place] 325 mg-5 mg oral tablet, 1 tab(s), [...] Information HARPAL FREDDY 04/12/2024 11:30 AM EST [address] [place] [phone]- Business (1) Additional Instructions: Brianne Jane Within 5 to 7 days [address] [facility], [address] [phone] Business (1) Additional Instructions: Toby Santiago Within 5 to [address] [place] [address]- Business (1) Additional Instructions: Follow up with your primary cardiology team as soon as possible Additional Instructions: Patient is currenct with [facility]. Additional Instructions: Community-Acquired Pneumonia, Adult, Vcuo-ks-Qxfw Sepsis, Self Care, Adult Sepsis, Diagnosis, Adult Extracted from: Title:Acute Renal Failure * Author:Jack BRIGGS, [facility] Date:04/05/24 Impression and Plan 1.ADIA: From hemodynamic [...] no interventions. 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 1. Acute respiratory failure with hypoxia (J96.01: Acute respiratory failure with hypoxia) 2/2 PNA w/ failed outpt. zpak for bronchitis -Denies home 02 or cpap/bipap use - attempt to wean to [place] today -Supplemental 02 - BNP 161 -Tx. as below -Low threshold for PCCM consult if not improving in a.m. Ordered: [facility] Hospital Care/Day High 50 Minutes [id number] 2. Sepsis (A41.9: Sepsis, unspecified organism) 2/2 [...] folate def. -Baseline hgb. level - 03-16 -Downtrending today -> hold heparin sq -Hemoccult [...] deep vein thrombosis (DVT) prophylaxis (Z79.899: Other skilled nursing (current) drug therapy) -Hold heparin sq 2/2 [...] made to ensure accuracy, however, inadvertently computerized superintendent operating mistakes may be present. Extracted from: Title:Acute [...] -Max trop 67 - likely type II [place] 2/2 demand ischemia 2/2 hypoxia/sepsis 2/2 PNA [...] on M// dosing), miralax daily, folic acid 1g daily [...] deep vein thrombosis (DVT) prophylaxis (Z79.899: Other skilled nursing (current) drug therapy) -Heparin sq with early [...] Dehydrogenase Post Void Residual Procalcitonin Referral to [facility] Reticulocyte Count TIBC Calculated TSH With T4fr Reflex Vitamin B12 Level -Plan discussed w/ patient, nursing staff and CRM. This report was transcribed using voice recognition software. Every effort was made to ensure accuracy, however, inadvertently computerized superintendent operating mistakes may be present. Addendum by Akua NICHOLSON on April 04, 2024 12:47:39 EDT BNP, echo - pending, DC IVF per nephro. Addendum by Akua NICHOLSON on April 04, 2024 14:20:30 EDT Johann Yesenia called in and stated that he would prefer his step dgt. Lilian Shah be point of contact for all information [phone] Extracted from: Title:Admission H & P Author:Tika [...] deep vein thrombosis (DVT) prophylaxis (Z79.899: Other skilled nursing (current) drug therapy) SCD, heparin Orders: acetaminophen, [...] Therapy PT & PTT Rapid COVID Antigen ([facility]) Sputum Culture Troponin Troponin 1 Hr. Troponin 3 Hr. UA with Cult Rflx XR Chest Single View [facility] 10-31-2024 NoteProgress Note-Physician Patient: NADIA PATTERSON Age: [...] date 04/04/24 3:00:00 EDT, 04/04/24 2:42:00 EDT [place] 325 mg-5 mg oral tablet: 1 tab(s), [...] EDT Prescriptions Prescribed nathaly (more content not included)...[facility] HospitalComment on above: Result Comment: Electronically Signed By: Jack BRIGGS, Toby\.br\Date and Time Signed: 04/05/24 15:[id number] NoteProgress Note-Physician Patient: NADIA PATTERSON Age: 78 [...] [facility] – [facility] in [place] and has had previous cardiac catheterization but with no intervention. She follows with cardiology at [facility] in [place] on regular basis. She has been having [...] the troponin. I suggested to let her ammunition storekeeper decide whether further cardiac investigation will be [...] mg = 1 tab(s), PRN, SubLingual, q5min [place] 325 mg-5 mg oral tablet 1 tab(s), [...] 10 mg 0.5 tab(s) (more content not included)...[facility] HospitalComment on above:Result Comment: Electronically Signed By: Delphine BRIGGS, Briseida\.br\Date and Time Signed: 04/05/24 14:19 [id number] Note Echocardiology Procedure Exam Date/Time Accession # Ordering Echo Transthoracic w/ 04/04/2024 15:12 EDT [id number] HARRY DE [place]-BCAkua Contrast CPT code C8929 Reason for Exam (Echo Transthoracic w/ Contrast) Shortness of breath (SOB) Report [facility] [address] [place] [address] Adult Echocardiogram Report Name: NADIA PATTERSON Study Date: 04/04/2024 02:05 PM BP: 101/57 mmHg Patient Location: [address] [place] [address] Bed([address]) [facility] [place] HR: 69 : 1945 Gender: Female Height: 62 in Age: 78 yrs Ethnicity: T Weight: 196 lb Reason For Study: Shortness of breath (SOB) BSA: 1.9 m2 History: HTN, DM, CKD, Anemia, Dementia Ordering Physician: Akua MCDONALD Performed By: Joana Beckman [facility] Interpretation Summary The left ventricle is normal [...] Signed by: Briseida Akers MD Transcribed by: MD Technologist: [facility]10-31-2024 Note Interdisciplinary Note - PT PT Evaluation completed with an . Pt was able to perform bed mobility with CGA, but does need CGA/Min A to ambulate. Pt does have some unsteadiness when ambulating with FWW along with increased weakness. Will continue to follow daily. SNF recommended at this time, but do anticipate improvement. Will follow daily with [facility]10-31-2024 NoteProgress Note-Physician Assessment/Plan Johann Patterson () [phone], pt. is a FULL CODE, he states no prolonged code situation. -He has appointed Dgt. Lilian Shah as primary spokesperson for all communication: [phone]. 1. Acute respiratory failure with hypoxia (J96.01: Acute respiratory failure with hypoxia) 2/2 PNA w/ failed outpt. zpak for bronchitis -Denies home 02 or cpap/bipap use - attempt to wean to [place] today -Supplemental 02 -BNP 161 -Tx. as below -Low threshold for PCCM consult if not improving in a.m. Ordered: Sbsq Hospital Care/Day High 50 Minutes 63815 2. Sepsis (A41.9: Sepsis, unspecified organism) 2/2 [...] folate def. -Baseline hgb. level - 03-16 -Downtrending today -> hold heparin sq -Hemoccult [...] deep vein thrombosis (DVT) prophylaxis (Z79.899: Other skilled nursing (current) drug therapy) -Hold heparin sq 2/2 [...] 1 EA, Powder (more content not included)... [facility] HospitalComment on above:Result Comment: Electronically Signed By: Akua NICHOLSON\.br\Date and Time Signed: 04/05/24 09:59 EDT\.br\Electronically Co-Signed By: Miguel Ramires DO\.br\Date and Time Co-Signed: 04/05/24 10:03 [id number] NoteConsultation Note Patient: NADIA PATTERSON Age: 78 [...] 6:33:00 EDT Prescriptions Prescribe (more content not included)...[facility] HospitalComment on above:Result Comment: Electronically Signed By: Toby Santiago MD\.br\Date and Time Signed: 04/04/24 15:[id number] NoteConsultation Note Patient: NADIA PATTERSON Age: 78 [...] mg = 1 tab(s), PRN, SubLingual, q5min [place] 325 mg-5 mg oral tablet 1 tab(s), [...] ondansetron 2 mg/mL Inj (more content not included)...[facility] HospitalComment on above:Result Comment: Electronically Signed By: Delphine BRIGGS, Briseida\.br\Date and Time Signed: 04/04/24 15:23 [id number] Note Interdisciplinary Note - OT Attempted to see patient for OT evaluation however pt was undergoing testing in her room upon attempt. Will follow up as appropriate.[facility] 04-04-2024 NoteProgress Note-Physician Assessment/Plan Johann Patterson () [phone], pt. is a FULL CODE, he states [...] -Max trop 67 - likely type II [place] 2/2 demand ischemia 2/2 hypoxia/sepsis 2/2 PNA [...] deep vein thrombosis (DVT) prophylaxis (Z79.899: Other skilled nursing (current) drug therapy) -Heparin sq with early [...] Dehydrogenase Post Void Residual Procalcitonin Referral to [facility] Reticulocyte Count TIBC Calculated TSH With T4fr Reflex Vitamin B12 Level -Plan discussed w/ patient, nursing staff and CRM. This report was transcribed using voice recognition software. Every effort was made to ensure accuracy, however, inadvertently computerized superintendent operating mistakes may be present. Subjective No acute events overnight. Patient states she feels tired and exhausted and not well. She denies CP, pressure, palpitations, N/V, or paresthesia. Review of Systems Constitutional: + fatigue/malaise, Respiratory: + harsh supervisory geographer cough, + SOB/WOB/NASCIMENTO - does not wear [...] 04/04/24 * 04/03/24 04/02/24 (more content not included)...[facility] HospitalComment on above:Result Comment: Electronically Signed By: Akua NICHOLSON\.br\Date and Time Signed: 04/04/24 14:21 EDT\.br\Electronically Co-Signed By: Miguel Ramires DO04-04-2024 NoteProgress Note-Physician Assessment/Plan Johann Patterson () [phone], pt. is a FULL CODE, he states [...] -Max trop 67 - likely type II [place] 2/2 demand ischemia 2/2 hypoxia/sepsis 2/2 PNA [...] deep vein thrombosis (DVT) prophylaxis (Z79.899: 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) -Heparin sq with early [...] Dehydrogenase Post Void Residual Procalcitonin [facility] Reticulocyte Count TIBC Calculated TSH With T4fr Reflex Vitamin B12 Level -Plan discussed w/ patient, nursing staff and CRM. This report was transcribed using voice recognition software. Every effort was made to ensure accuracy, however, inadvertently computerized superintendent operating mistakes may be present. Subjective No acute events overnight. Patient states she feels tired and exhausted and not well. She denies CP, pressure, palpitations, N/V, or paresthesia. Review of Systems Constitutional: + fatigue/malaise, Respiratory: + harsh supervisory geographer cough, + SOB/WOB/NASCIMENTO - does not wear [...] 04/04/24 * 04/03/24 04/02/24 (more content not included)...[facility] HospitalComment on above:Result Comment: Electronically Signed By: Akua NICHOLSON\.br\Date and Time Signed: 04/04/24 14:21 EDT\.br\Electronically Co-Signed By: Miguel Ramires DO\.br\Date and Time Co-Signed: 04/04/24 17:14 [id number] NoteProgress Note-Nurse PVR 116 hospitalist aware, orders for IVF off and BNP , IVF off as ordered and BNP resulted at 161.[facility]10-[facility] NoteProgress Note-Physician Assessment/Plan Johann Patterson () [phone], pt. is a FULL CODE, he states [...] -Max trop 67 - likely type II [place] 2/2 demand ischemia 2/2 hypoxia/sepsis 2/2 PNA [...] deep vein thrombosis (DVT) prophylaxis (Z79.899: 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) -Heparin sq with early [...] Dehydrogenase Post Void Residual Procalcitonin Referral to [facility] Reticulocyte Count TIBC Calculated TSH With T4fr Reflex Vitamin B12 Level -Plan discussed w/ patient, nursing staff and CRM. This report was transcribed using voice recognition software. Every effort was made to ensure accuracy, however, inadvertently computerized superintendent operating mistakes may be present. Subjective No acute events overnight. Patient states she feels tired and exhausted and not well. She denies CP, pressure, palpitations, N/V, or paresthesia. Review of Systems Constitutional: + fatigue/malaise, Respiratory: + harsh supervisory geographer cough, + SOB/WOB/NASCIMENTO - does not wear [...] 04/04/24 * 04/03/24 04/02/24 (more content not included)...[facility] HospitalComment on above:Result Comment: Electronically Signed By: Akua NICHOLSON\.br\Date and Time Signed: 04/04/24 12:48 EDT\.br\Electronically Co-Signed By: Miguel Ramires DO04-04-2024 NoteProgress Note-Physician Assessment/Plan Johann Patterson () [phone], pt. is a FULL CODE, he states [...] -Max trop 67 - likely type II [place] 2/2 demand ischemia 2/2 hypoxia/sepsis 2/2 PNA [...] deep vein thrombosis (DVT) prophylaxis (Z79.899: 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) -Heparin sq with early [...] Dehydrogenase Post Void Residual Procalcitonin Referral to [facility] Reticulocyte Count TIBC Calculated TSH With T4fr Reflex Vitamin B12 Level -Plan discussed w/ patient, nursing staff and CRM. This report was transcribed using voice recognition software. Every effort was made to ensure accuracy, however, inadvertently computerized superintendent operating mistakes may be present. Subjective No acute events overnight. Patient states she feels tired and exhausted and not well. She denies CP, pressure, palpitations, N/V, or paresthesia. Review of Systems Constitutional: + fatigue/malaise, Respiratory: + harsh supervisory geographer cough, + SOB/WOB/NASCIMENTO - does not wear [...] 04/04/24 * 04/03/24 04/02/24 (more content not included)...[facility] HospitalComment on above:Result Comment: Electronically Signed By: Akua NICHOLSON\.br\Date and Time Signed: 04/04/24 12:48 EDT\.br\Electronically Co-Signed By: Miguel Ramires DO.br\Date and Time Co-Signed: 04/04/24 13:25 [id number] NoteHistory and Physical Basic Information Admit Date/Time:04/04/2024 [...] Lymph Auto: 4.7 % Low (04/04/24 01:05:00) [place] Auto: 2.6 % Low (04/04/24 01:05:00) Eos Auto: 0.7 % (04/04/24 01:05:00) Basophil Auto: 0.3 % (04/04/24 01:05:00) Neutro Absolute: 7.5 E9/L (04/04/24 01:05:00) Lymph Absolute: 0.4 E9/L Low (04/04/24 01:05:00) [place] Absolute: 0.2 E9/L (04/04/24 01:05:00) Eos Absolute: 0.1 E9/L (04/04/24 01:05:00) Basophil Absolute: 0 E9/L (04/04/24 01:05:00) PT: 12.2 second(s) (04/04/24 01:05:00) INR: 1.09 (04/04/24 01:05:00) PTT: 36.3 second(s) (04/04/24 01:05:00) Glucose Lvl: 232 mg/dL High (04/04/24 01:05:00) BUN: 24 mg/dL High (04/04/24 01:05:00) Creatinine: 1.9 mg/dL High (04/04/24 01:05:00) eGFR: 26 mL/min/1.73 m2 Low (04/04/24:05:00) BUN/Creat Ratio: 13 (04/04/24:05:00) Sodium Lvl: 138 mmol/L (04/04/24 01:05:00) Potassium Lvl: 3.7 mmol/L (04/04/24:05:00) Chloride: 100 mmol/L Low (04/04/24:05:00) CO2: 28 mmol/L (04/04/24:05:00) AGAP: 14 mEq/L (04/04/24:05:00) Calcium Lvl: 9.3 mg/dL (04/04/24:05:00) Alk Phos: 98 Int._Unit/L (04/04/24:05:00) ALT: 9 Int._Unit/L (04/04/24:05:00) AST: 18 Int._Unit/L (04/04/24:05:00) Total Protein: 7.1 gm/dL (04/04/24:05:00) Albumin Lvl: 4 gm/dL (04/04/24:05:00) Globulin: 3.1 gm/dL (04/04/24:05:00) A/G Ratio: 1.3 (04/04/24:05:00) Bili Total: 0.7 mg/dL (04/04/24:05:00) Lactic Acid Lvl: 2.7 mmol/L High (04/04/24 [...] acid per protocol. Antibio (more content not included)...[facility] HospitalComment on above:Result Comment: Electronically Signed By: Tika CHRISTENSEN DO.olaf\Date and Time Signed: 04/04/24 03:00 [id number] History of Present illness Narrative* Zach Bui MD - 11/22/2023 11:45 AM EDT Images from the original note were not included. [address] [place] [id number] Patient: Nadia Patterson Date of : 1945 [...] Past Medical History: Diagnosis Date Diabetes mellitus ([facility] [place] [place] Fibromyalgia H/O echocardiogram Heart attack ([facility] [place] [place] High blood pressure High cholesterol Hx of cardiac catheterization Hypothyroid Joint pain Low back pain Neck pain Obesity Osteoarthritis Wears dentures Past Surgical History: Procedure Laterality Date FEMUR SURGERY INJECTION BLOCK SACROILIAC JOINT Bilateral 09/24/2022 Performed by Hector Boss MD at [facility] INJECTION BLOCK SACROILIAC JOINT Bilateral 04/09/2022 Performed by Hector Boss MD at [facility] INJECTION BLOCK SACROILIAC JOINT Bilateral 12/04/2021 Performed by Hector Boss MD at [facility] KNEE SURGERY WRIST SURGERY Family History [...] you for your understanding. documented [facility] NoteMicrobiology PROCEDURE: Blood Culture Charcoal [R1] SOURCE: Blood BODY SITE: Arm R COLLECTED DATE/TIME: 07/30/2023 22:00 EST RECEIVED DATE/TIME: 07/30/2023 22:16 EST START DATE/TIME: 07/30/2023 22:16 EST FREE TEXT SOURCE: Michele Villalpando DO, DO, Kevin M. FINAL REPORTS Final Report [] Verified Date/Time: 08/07/2023 07:00 EST No growth at 7 days. Performing Locations R1: This test was performed at: [facility], [address] [place] [address], [address] [place], [place] [address]Comment on above:Performed By: #### [id number] ####[address] [id number] NoteMicrobiology PROCEDURE: Blood Culture Charcoal [R1] SOURCE: Blood BODY SITE: Hand L COLLECTED DATE/TIME: 07/30/2023 21:45 EST RECEIVED DATE/TIME: 07/30/2023 22:16 EST START DATE/TIME: 07/30/2023 22:16 EST FREE TEXT SOURCE: Michele Marie DO, DO, Kevin M. FINAL REPORTS Final Report [] Verified Date/Time: 08/07/2023 07:00 EST No growth at 7 days. Performing Locations R1: This test was performed at: [facility], [address] [place] [address], [address] [place], [place] [address]Comment on above:Performed By: #### [id number] ####[place] [id number] Evaluation + Plan noteExtracted from: Title:Discharge Note [...] 0.4 mg= 1 tab(s), SubLingual, q5min, PRN [place] 325 mg-5 mg oral tablet, 1 tab(s), [...] MD, FAM Within 3 to 5 days [facility] [place] [address]- Additional Instructions: Call for followup appointment Community-Acquired Pneumonia, Adult, Mqbr-yb-[id number] Extracted from: Title:APSO Note Author:Jesika WHITE student, Roberta sunday Mina Date:08/01/23 1. Generalized weakness (R53 .1: [...] Check COVID, Influenza swabs Blood cx pending Rocephirocío, Zmax 3. Lactic acidosis (E87.20: Acidosis, unspecified) [...] minute(s), 07/30/23 23:14:00 EST Add on Test [facility]02-27-2024 Hospital Discharge instructions Patient Education 08/02/2023 11:02:24 Antibiotic Medicine, Adult, Tffx-ox-Zkul Antibiotic Medicine, Adult Antibiotic medicines treat infections [...] medicine. Follow these instructions at home: Take hfhr-qav-qpzntrq and prescription medicines as told by your [...] provider. Document Revised: 03/04/2020 Document Reviewed: 03/11/2020 [employer] Patient Education 2022 [employer]ie. 08/02/2023 10:11:36 Community-Acquired Pneumonia, Adult, Nsli-oq-Kadf Community-Acquired Pneumonia, Adult Pneumonia is an infection [...] Follow these instructions at home: Medicines Take gugt-xky-ycuodza and prescription medicines only as told by [...] cannot use soap and water, use hand technical instructor. Contact a doctor if: You have a [...] provider. Document Revised: 07/21/2022 Document Reviewed: 07/21/2022 [employer] Patient Education 2022 [employer]ie. Follow Up Care 07/30/2023 20:29:22 With:FREDDY BRIGGS, GRETEL ROWAN Address: [address] [place] [address] When:08/09/2023 10:30:00 [facility]02-27-2024 NoteAdmission and Discharge Information Admit Date/Time:07/31/2023 01:03 Admitting Physician - Christie Zayas MD Admitting Diagnoses: Discharge Order Date Discharge Patient - Ordered -- 08/02/23 10:17:00 [facility] Discharge Diagnoses 1. Generalized weakness, 07/30/2023 2. [...] 0.4 mg= 1 tab(s), SubLingual, q5min, PRN [place] 325 mg-5 mg oral tablet, 1 tab(s), [...] Extra Strength 500 mg (more content not included)...[facility] HospitalComment on above:Result Comment: Electronically Signed By: Hector Meier DO\Date and Time Signed: 08/02/23 10:18 [id number] NotePT Evaluation done this date. Pt. with on AM-PAC this date. Supervision to CGA with all activities this date. 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 design program chair about being fatigued lately and it was [...] 5.6 E9/L (07/30/23 21:45:00) RBC: 4.3 E12/L (07/30/23:45:00) HGB: 12.5 gm/dL (07/30/23 21:45:00) Hct: 38 % (07/30/23 21:45:00) MCV: 89 fL (07/30/23 21:45:00) MCH: 29.2 pg (07/30/23 21:45:00) MCHC: 32.9 gm/dL (07/30/23 21:45:00) RDW: 14.7 % High (07/30/23:45:00) Platelet: 215 E9/L (07/30/23 21:45:00) MPV: 7.1 fL (07/30/23 21:45:00) Neutro Auto: 56.7 % (07/30/23 21:45:00) Lymph Auto: 30.5 % (07/30/23 21:45:00) [place] Auto: 7.8 % (07/30/23:45:00) Eos Auto: 4.1 % (07/30/23:45:00) Basophil Auto: 0.9 % (07/30/23:45:) Neutro Absolute: 3.2 E9/L (07/30/23:45:00) Lymph Absolute: 1.7 E9/L (07/30/23:45:00) [place] Absolute: 0.4 E9/L (07/30/23:45:00) Eos Absolute: 0.2 E9/L (07/30/23:45:00) Basophil Absolute: 0 E9/L (07/30/23:45:00) Glucose Lvl: 140 mg/dL (07/30/23:45:) BUN: 20 mg/dL (07/30/23:45:) Creatinine: 1.5 mg/dL High (07/30/23:45:00) eGFR: 35 mL/min/1.73 m2 Low (07/30/23:45:) BUN/Creat Ratio: 13 (07/30/23:45:00) Sodium Lvl: 143 mmol/L (07/30/23:45:00) Potassium Lvl: 4 mmol/L (07/30/23:45:00) Chloride: 101 mmol/L (07/30/23:45:00) CO2: 31 mmol/L (07/30/23:45:00) AGAP: 15 mEq/L (07/30/23:45:00) Calcium Lvl: 10 mg/dL (07/30/23:45:00) Alk Phos: 83 Int._Unit/L (07/30/23:45:00) ALT: 9 Int._Unit/L (07/30/23:45:00) AST: 15 Int._Unit/L (07/30/23:45:00) Total Protein: 7.1 gm/dL (07/30/23:45:00) Albumin Lvl: 4.1 gm/dL (07/30/23:45:00) Globulin: 3 gm/dL (07/30/23:45:00) A/G Ratio: 1.4 (07/30/23 21:45:00) Bili Total: 0.4 mg/dL (07/30/23 21:45:00) Bili Direct: 0.1 mg/dL (07/30/23 21:45:00) Bili Indirect: 0.3 mg/dL (07/30/23 21:45:00) Lactic Acid Lvl: 2.1 mmol/L (07/31/23 00:06:00) Troponin: 3.6 pg/mL Low (07/31/23 00:06:00) BNP: 114 pg/mL High (07/30/23 21:45:00) Glucose Cap: 127 mg/dL High (07/30/23 20:34:00) POC Device SN: [id number] (07/30/23 20:34:00) POC User ID: [id number] (07/30/23 20:34:00) POC Username: DREAD CHURCH (07/30/23 20:34:00) UA Spec Desc: Clean Catch (07/30/23 22:50:00) UA Color: Yellow2 (07/30/23 22:50:00) UA Clarity: Clear2 (07/30/23 22:50:00) UA Spec Grav: 1.015 (07/30/23 22:50:00) UA pH: 7.0 (07/30/23 22:50:00) (more content not included)...[facility] HospitalComment on above:Result Comment: Electronically Signed By: Marquez BRIGGS, Christie\.br\Date and Time Signed: 07/31/23 03:31 [id number] Evaluation note* Encounter Date Diagnosis Assessment Notes [...] magnesium. Will increase oral magnesium once daily. [employer] Other 12-28-2023 Evaluation note* Encounter Date Diagnosis Assessment Notes Treatment Notes Treatment Clinical Notes May, Acute non-recurrent maxillary sinusitis (ICD-10 - J01.00) Take antibiotic as directed. If develop wheezing, chest tightness, itching, bad cough, blue skin color, seizures, swelling of face, lips, tongue, or throat report to ED. [employer] Other 10-02-2023 Evaluation note* Encounter Date Diagnosis Assessment Notes Treatment Notes Treatment Clinical Notes Mar, Lumbosacral spondylosis (ICD-10 - M47.817) [place] refilled. Requests to increase dose due to [...] symptoms. Any developing patterns. Stay well hydrated. [employer] Other 08-08-2023 Evaluation note* Encounter Date Diagnosis Assessment Notes Treatment Notes Treatment Clinical Notes Jan, Hypertensive chronic kidney disease with stage 1 through stage 4 chronic kidney disease, or unspecified chronic kidney disease (ICD-10 - I12.9) [employer] Other 07-17-2023 Evaluation note* Encounter Date Diagnosis [...] due to the multiple course of antibiotics [employer] Other 01-09-2023 Evaluation note* Encounter Date Diagnosis [...] has a low magnesium. Continue oral magnesium [employer] Other 12-22-2022 History general Narrative - Reported* Type Description Date Medical History DM Medical History Fibromyalgia Medical History Arthritis Medical History HIP PAIN BILATERAL Medical History NERVE 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 BI LATERAL Medical History UTI 05/27/22 [facility] E R Surgical History Procedure:Colostomy;Disease: no [...] NERVE BLOCK 04/09/2022 Hospitalization History see above [employer] Other 12-22-2022 History general Narrative - Reported* Type Description Date Medical History DM Medical History Fibromyalgia Medical History Arthritis Medical History HIP PAIN BILATERAL Medical History NERVE 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 BI LATERAL Medical History UTI 05/27/22 [facility] E R Medical History UTI 11/06/2022 [...] [place] 11/12/2022 [facility] [employer] Other 12-22-2022 History general Narrative - Reported* Type Description Date Medical History DM Medical History Fibromyalgia Medical History Arthritis Medical History HIP PAIN BILATERAL Medical History NERVE 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 BI LATERAL Medical History UTI 05/27/22 [facility] E R Medical History UTI 11/06/2022 GIVEN BACTRIM Medical History UTI 11/10/[address] [facility] [place] Surgical History Colostomy Surgical [...] [place] 11/12/2022 [employer] Other 09-15-2022 History of Present illness Narrative* Madai Webb MD - 02/18/2022 8:44 PM EDT Images from the original note were not included. EMERGENCY TRIAGE, TREAT AND TRANSPORT (ET3) DOCUMENTATION OF TELEHEALTH VISIT Date / Time: 01/08/2022 / 0345am Name: Suhas Patterson : 1945 SSN: [id number] EMS Agency: [facility] [x] Verbal consent obtained [] [...] by: Madai Webb MD documented in this [id number] NotePROCEDURE: XR ANKLE RT MIN 3 VIEWS, [...] Electronically authenticated by: LINDA REED Date: 2021-11-16 16:37[facility]06-13-2022 NotePROCEDURE: XR ANKLE RT MIN [...] Electronically authenticated by: LINDA REED Date: 2021-11-16 16:37[facility]01-13-2022 Evaluation note* Encounter Date Diagnosis [...] within the goal. [place] 50174 units 3/week Jun, Gout (ICD-10 - M10.9) [...] UTI so I have prescribed oral antibiotic. [employer] Other Evaluation + Plan note No data available for this section [facility] Evaluation note* Diagnosis Fall, initial encounter- Primary documented in this encounter [facility] [employer] Other Evaluation noteNo assessment information available [facility] Work Phone: Evaluation note* Diagnosis Onset Date Resolution Status Cellulitis of leg without foot, left acute Fibromyalgia acute Insomnia acute Restless leg syndrome acute Anemia of renal disease acut e CKD (chronic kidney disease) stage 3, GFR 30-59 ml/min acute 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 Gout acute [id number] acute Hypomagnesemia acute Secondary hyperparathyroidism acute [facility] Work Phone: Evaluation note* Diagnosis Onset Date Resolution Status Anemia of renal disease acut e CKD (chronic kidney disease) stage 3, GFR 30-59 ml/min acute 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 Gout acute Hyperlipidemia acute [id number] acute Hypomagnesemia acute Secondary hyperparathyroidism acute [facility] Work Phone: Evaluation note* Diagnosis Onset Date Resolution Status Fibromyalgia acute Insomnia acute Restless leg syndrome acute [facility] Work Phone: Evaluation note* Diagnosis Urge incontinence- Primary [facility] this [facility] Diagnosis Onset Date Resolution Status Admit Date Anemia of renal disease acute 2024 1:51pm CKD (chronic kidney disease) stage 3, GFR 30-59 ml/min acute August 13, 2024 1:51pm Diabetes mellitus with chron ic kidney disease acute August 13, 2024 1:51pm Gout acute August 13 1:51pm Hyperlipidemia acute August 1:51pm Hypertensive chronic kidney disease with stage 1 through stage 4 chronic ki acute August 13, 2024 1:51pm Hypomagnesemia acute August 1:51pm Secondary hyperparathyroidism acute August 13, 2024 1:51pm [facility] Work Phone: Evaluation note* Diagnosis Onset Date Resolution Status Admit Date Class 2 obesity with body ma ss index (BMI) of 37.0 to 37.9 in adult acute November 12, 2024 1 :17pm Dementia in other diseases classified elsewhere, unspecified severity, with acute November 12, 2024 1 :17pm Fibromyalgia acute November 12 1:17pm Osteoarthritis acute November 12, 2024 1:17pm Rheumatoid arthritis acute November 12, 2024 1:17pm Type 2 diabetes mellitus wit h diabetic polyneuropathy, without long-term cu acute November 12, 2024 1 :17pm [facility] Work Phone: History general Narrative - [...] History perforated bowel Hospitalization History see above [employer] Other Hospital Discharge instructions No data available for this section [facility] InstructionsNot on filedocumented in this encounter [facility] SystemInstructionsNot on filedocumented in this encounter [facility] SystemProgress note No data available for this [...] Diabetes mellitus with chronic kidney disease Gout [id number] Hypomagnesemia Secondary hyperparathyroidism Chief Complaint RENAL 6 month follow up 3 month f/u/med refills Reason for Visit Anemia of renal dise ase CKD (chronic kidney disease) stage 3, GFR 30-59 ml/min Diabetes mellitus with chronic kidney disease Gout Hyperlipidemia [id number] Hypomagnesemia Secondary hyperparathyroidism Chief Complaint 3 month f/u/med refi lls chest congestion Reason for Visit Fibromyalgia Insomnia Restless leg syndrome Chief Complaint Admit Date prison visit July 18, 2024 11:59pm [facility] Discharge f/u August 13, 2024 10: 36am Chief Complaint Admit Date prison visit July 18, 2024 11:59pm NH Discharge f/u August 13, 2024 10: 36am Renal F/U August 13, 2024 1:5 1pm Reason for Visit Admit Date Anemia of renal disease August 13, 2024 1:51pm CKD (chronic kidney disease) stage 3, GF R 30-59 ml/min August 13, 2024 1:51pm Diabetes mellitus with chronic kidney di sease August 13, 2024 1:51pm Gout August 13, 2024 1:5 1pm Hyperlipidemia August 13, 2024 1:5 1pm Hypertensive chronic kidney disease with stage 1 through stage 4 chronic ki August 13, 2024 1:51pm Hypomagnesemia August 13, 2024 1:5 1pm Secondary hyperparathyroidism August 1:51pm Chief Complaint Admit Date Med f/u November 12, 2024 1:17p m Reason for Visit Admit Date Class 2 obesity with body ma ss index (BMI) of 37.0 to 37.9 in adult November 12, 2024 1:17pm Dementia in other diseases c lassified elsewhere, unspecified severity, with November 12, 2024 1:17pm Fibromyalgia November 12, 2024 1:17p m Osteoarthritis November 12, 2024 1:17p m Rheumatoid arthritis November 12, 2024 1:17 pm Type 2 diabetes mellitus wit h diabetic polyneuropathy, without long-term cu November 12, 2024 1:17pm Reason for Visit Admit Date Class 2 obesity with body ma ss index (BMI) of 37.0 to 37.9 in adult November 12, 2024 1:17pm Fibromyalgia November 12, 2024 1:17p m Osteoarthritis November 12, 2024 1:17p m Rheumatoid arthritis November 12, 2024 1:17 pm Type 2 diabetes mellitus wit h diabetic polyneuropathy, without long-term cu November 12, 2024 1:17pm Additional Source Comments INFORMATION SOURCE (unrecogn ized section and content) DATE CREATED AUTHOR 11/29/2017 [facility] DATE CREATED AUTHOR AUTHOR'S ORGANIZ ATION 03/06/2022 [facility] DATE CREATED AUTHOR AUTHOR'S ORGANIZ ATION 06/08/2022 [facility] DATE CREATED AUTHOR AUTHOR'S ORGANIZ ATION 07/12/2023 [facility] DATE CREATED AUTHOR AUTHOR'S ORGANIZ ATION 11/24/2023 [facility] DATE CREATED AUTHOR AUTHOR'S ORGANIZ ATION 04/05/2024 [facility] DATE CREATED AUTHOR AUTHOR'S ORGANIZ ATION 04/06/2024 [facility] DATE CREATED AUTHOR AUTHOR'S ORGANIZ ATION 04/07/2024 [facility] DATE CREATED AUTHOR AUTHOR'S ORGANIZ ATION 04/08/2024 [facility] DATE CREATED AUTHOR AUTHOR'S ORGANIZ ATION 04/12/2024 [facility] DATE CREATED AUTHOR AUTHOR'S ORGANIZ ATION 04/13/2024 [facility] DATE CREATED AUTHOR AUTHOR'S ORGANIZ ATION 11/23/2024 [facility] DATE CREATED AUTHOR AUTHOR'S ORGANIZ ATION 01/30/2025 [facility] REASON FOR VISIT (unrecogniz ed section and content) Reason Comments Fall Controlled mechanica l fall, lowered while onto bed. Reason Comments Follow-up 6m follow up Patient Care team informatio n (unrecognized section and content) Team Status: Active Member Role Status Dates Harpal Hayes MD Primary Care Provider Active Team Status: Inactive Member Role Status Dates Harpal Hayes MD Primary Care Provide r, Attending Provider Active Start: November 12, 2024 End: November 12, 2024 Team Status: Active Member Role Status Dates [...] Villeda DO Primary Care Provider Active Start: April 02, 2024 End: April 02, 2024 Harpal Hayes MD Attending Provider Active St art: April 02, 2024 End: April 02, 2024 Team Status: Inactive Member Role Status Dates Art Villeda DO Primary Care Provider Active Start: December 12, 2023 End: December 12, 2023 Harpal Hayes MD Attending Provider Active St art: December 12, 2023 End: December 12, 2023 Team Status: Active Member Role Status Dates Art Villeda DO Primary Care Provider Active Start: December 13, 2023 Yaneth Marshall MD Attending Provider Active Start : December 13, 2023 Team Status: Inactive Member Role Status Dates Art Villeda , DO Primary Care Provider Active Start: December 20, 2023 End: December 20, 2023 Yaneth Marshall MD Attending Provider Active Start : December 20, 2023 End: December 20, 2023 Final Cleaner Relationship Specialty Start Date End Date Harpal Hayes MD [address] [place] [id number] PCP - General Family Medicine 07/21/22 Team Status: Active Member Role Status Dates Art Villeda DO Primary Care Provider Active Start: July 12, 2024 Og Thomas DO Attending Provider Active S tart: July 12, 2024 Team Status: Active Member Role Status Dates Harpal Hayes MD Primary Care Provider Active Start: July 12, 2024 End: July 16, 2024 Juan Prasad DO Attending Provider Active Sta rt: July 12, 2024 End: July 16, 2024 David Mart MD Referring Provider Active Sta rt: July 12, 2024 End: July 16, 2024 Team Status: Active Member Role Status Dates Max Daniel Villeda DO Primary Care Provider Active Start: July 13, 2024 Nava De Leon Attending Provider Active Start: 2024 Team Status: Active Member Role Status Dates Max L Ronal DO Primary Care Provider Active Start: July 14, 2024 Nava De Leon Attending Provider Active Start: 2024 Team Status: Active Member Role Status Dates Max Daniel Villeda DO Primary Care Provider Active Start: July 15, 2024 David Mart MD Attending Provider Active Sta rt: July 15, 2024 Team Status: Active Member Role Status Dates Max L Ronal DO Primary Care Provider Active Start: July 16, 2024 Nava De Leon Attending Provider Active Start: 2024 Team Status: Active Member Role Status Dates Harpal Hayes MD Primary Care Provide r, Attending Provider Active Start: July 18, 2024 Team Status: Active Member Role Status Dates Harpal Hayes MD Primary Care Provider Active Start: August 08, 2024 Yaneth Marshall MD Attending Provider Active Start : August 08, 2024 Team Status: Inactive Member Role Status Dates Harpal Hayes MD Primary Care Provide r, Attending Provider Active Start: August 13, 2024 End: August 13, 2024 Team Status: Inactive Member Role Status Dates Yaneth Marshall MD Attending Provider Active Start : August 13, 2024 End: August 13, 2024 Harpal Hayes MD Primary Care Provider Active Start: August 13, 2024 End: August 13, 2024 Final Cleaner Relationship Specialty Start Date End Date Harpal Hayes MD [address] [id number] PCP - General Family Medicine 07/21/22 Team Status: Inactive Member Role Status Dates Harpal Hayes MD Primary Care Provider Active Start: November 12, 2024 End: November 12, 2024 Harpal Hayes MD Attending Provider Active St art: November 12, 2024 End: November 12, 2024 Team Status: Inactive Member Role Status Dates Harpal Hayes MD Primary Care Provider Active Start: January 29, 2025 End: January 29, 2025 Jaden Kaur MD Attending Provider Active art: January 29, 2025 End: January 29, 2025 Goals (unrecognized section and content) Goals may [...] PRIMARY CLINICAL RECORDS. [facility]. provides no warranty or guarantee of the accuracy or completeness of information in this document.
[2025-02-11 10:54] LABS: Hematocrit 36.5 % (36.0-48.0); Hemoglobin 11.7 g/dL (12.0-16.0); Mean Corpuscular HGB Conc 32.1 g/dL (29.9-35.2); Mean Corpuscular Hemoglobin 29.4 pg (26.7-34.0); Mean Corpuscular Volume 91.7 fL (81.0-99.0); Platelet Count 246 10^3/uL (150-450); Red Blood Count 3.98 10^6/uL (4.20-5.40); White Blood Count 5.4 10^3/uL (4.0-11.0)
[2025-02-11 11:16] LABS: Total Protein Urine Random 6.5 mg/dL (<=11.9)
[2025-02-11 11:40] LABS: Iron 64.0 ug/dL (50.0-170.0); Percent Iron Saturation 19.2 %; Total Iron Binding Capacity 334.0 ug/dL (250.0-450.0)
[2025-02-11 12:01] LABS: Albumin Level 3.5 g/dL (3.4-5.0); Anion Gap 12.1; Blood Urea Nitrogen 24.0 mg/dL (7.0-18.0); Calcium 9.3 mg/dL (8.5-10.1); Carbon Dioxide 30.9 mmol/L (21.0-32.0); Chloride 100 mmol/L (98-107); Estimated GFR (African America 40 (>=60 mL/min/1.73m^2); Estimated GFR (Non-African Ame 33 (>=60 mL/min/1.73m^2); Glucose 210 mg/dL (74-106); Magnesium 1.7 mg/dL (1.8-2.4); Potassium 4.0 mmol/L (3.5-5.1); Sodium 139 mmol/L (136-145); Uric Acid 6.4 mg/dL (2.6-6.0)
[2025-02-11 12:09] LABS: Glucose Urine UA NEGATIVE (NEGATIVE)
[2025-02-11 12:18] LABS: Ferritin 49.0 ng/mL (8.0-252.0)
[2025-02-11 14:08] LABS: Cast Seen? NONE SEEN #/LPF (NONE SEEN); Crystals Seen? None Seen #/HPF (None Seen)
== END 2025-02-11 10:20 | disposition home or self-care (01) ==
LOC: LAB 10:19
PROVIDERS: PCP Family Medicine; Visit Provider Internal Medicine
DX: I12.9 Hypertensive chronic kidney disease with stage 1 through stage 4 chronic kidney disease, or unspecified chronic kidney disease (principal); N18.9 Chronic kidney disease, unspecified; D63.1 Anemia in chronic kidney disease; M10.9 Gout, unspecified; E83.42 Hypomagnesemia; N25.81 Secondary hyperparathyroidism of renal origin
CPT/HCPCS: 36415; 80069; 81001; 82306; 82570; 82728; 83540; 83550; 83735; 83970; 84156; 84550; 85027